=== PATIENT | female | born 1960 | race Caucasian/White ===

== ENCOUNTER 2022-06-06 08:22 | Outpatient (CLI) | payer BC, SELFPAY ==
[2022-06-06 10:29] LABS: Chloride* 99 mmol/L (96-114); Potassium* 4.5 mmol/L (3.6-5.1); Sodium* 132 mmol/L (135-149)
[2022-06-06 10:31] LABS: Bilirubin Total* 0.5 mg/dL (0.1-1.5); Creatinine* 0.4 mg/dL (0.5-1.5); Estimated Glomerular Filt Rate 111.83
[2022-06-06 10:32] LABS: Alanine Aminotransferase* 10 U/L (4-35); Alkaline Phosphatase* 85 U/L (40-150); Aspartate Amino Transferase* 25 U/L (12-35); Blood Urea Nitrogen* 7 mg/dL (7-30); Carbon Dioxide* 29 mmol/L (20-32); Glucose* 111 mg/dL (60-115); Magnesium* 1.7 mg/dL (1.5-2.6); Total Protein* 6.7 g/dL (6.0-8.3)
--- OUTSIDE RECORDS SUMMARY | 2022-07-03 11:07 | XMS_ITS | Encounter Summary ---
:1960 Author Organization [facility] Address [address] [place] [address] Care Team Providers Name Role Phone Unavailable Primary Care Provider Unavailable Encounter Details Date Type Department Care Team Description 11/21/2009 Hospital Encounter HX NO MAPPING Shannon Barrett M.D. [address] [place] [phone] (Wo rk) Social History Tobacco Use Types Packs/Day Years Used Date Smoking Tobacco: Never Assessed Sex Assigned at Date Recorded Not on file documented as of this encounter Plan of Treatment Not on filedocumented as of this encounter Visit Diagnoses Not on filedocumented in this encounter
== END 2022-06-06 08:23 | disposition home or self-care (01) ==
LOC: LAB 08:23
PROVIDERS: PCP Family Medicine; Visit Provider Family Medicine
DX: E83.42 Hypomagnesemia (principal); E83.51 Hypocalcemia; E87.1 Hypo-osmolality and hyponatremia; R56.9 Unspecified convulsions; E87.6 Hypokalemia; F10.20 Alcohol dependence, uncomplicated; I10 Essential (primary) hypertension
CPT/HCPCS: 36415; 80053; 83735

== ENCOUNTER 2022-08-29 10:27 | Outpatient (CLI) | payer BC, SELFPAY ==
--- OUTSIDE RECORDS SUMMARY | 2022-08-29 10:30 | XMS_ITS | Encounter Summary ---
:1960 Author Organization [facility] Address [address] [place] [address] Care Team Providers Name Role Phone Elsewhere, Pcp Primary Care Provider Unavailable Reason for Referral Outpatient (Routine) - Authorized Specialty Diagnoses / Procedures Referred By Contact Refer red To Contact Neurology Karin Ramachandran M.D ., M.P.H. [facility] Region [address] [place] [phone] Referral ID Status Reason Start Date Expiration Date Visits V isits Requested Authorized [id number] Authorized 07/10/2022 07/10/2023 1 1 Outpatient (Routine) - Authorized Specialty Diagnoses / Procedures Referred By Contact Refer red To Contact Diagnoses Seizure (HCC) Karin Ramachandran M.D., M.P.H. [facility] Region Procedures EEG [address] [place] [phone] Referral ID Status Reason Start Date Expiration Date Visits V isits Requested Authorized [id number] Authorized 07/10/2022 07/10/2023 1 1 Reason for Visit Reason Comments Seizures Ref. Dr. Heller Appointment Request (Routine) - Closed Specialty Diagnoses / Procedures Referred By Contact Refer red To Contact Neurology Referral ID Status Reason Start Date Expiration Date Visits Requ ested Visits Authorized [id number] Closed 06/21/2022 06/21/2023 1 Encounter Details Date Type Department Care Team Description 07/10/2022 Comprehensive Visit Department of Karin Ramachandran Seizure (HCC) (Primary Dx); Neurology in [place], Seizure Recurre nt Nonintractable (HCC); [facility]ovanny TalamantesPEvansH. Moderate Or Severe Use Disorder (Depende nce) Alcohol Remission (HCC) [place] [address] [facility], [place] [phone] Social History Tobacco Use Types Packs/Day Years Used Date Smoking Tobacco: Heavy Smoker Alcohol Use Standard Drinks/Week Comments Yes 0 (1 standard drink = 0.6 oz pure alcoho l) daily Alcohol Habits Answer Date Recorded How often do you have a drink containing alcohol? Not asked How many drinks containing alcohol do you have on a typical Not asked day when you are drinking? How often do you have six or more drinks on one occasion? No t asked Comment: daily 04/28/2021 Sex Assigned at Date Recorded Female 07/10/2022 7:32 AM CDT documented as of this encounter Last Filed Vital Signs Vital Sign Reading Time Taken Comments Blood Pressure 127/56 07/10/2022 7:37 AM CDT Pulse 74 07/10/2022 7:37 AM CDT Temperature - - Respiratory Rate - - Oxygen Saturation - - Inhaled Oxygen Concentration - - Weight 49.9 kg (110 lb 0.2 oz) 07/10/2022 7:37 AM CDT Height - - Body Mass Index 19.59 04/28/2021 12:44 PM CDT documented in this encounter Consult Notes Karin Ramachandran M.D., M.P.H. - 07/10/2022 8:00 AM CDT Images from the original note were not included. SUBJECTIVE CHIEF COMPLAINT / REASON FOR VISIT Zandra Lopez is a 61 y.o. female who presents for evaluation of Seizures (Ref. Dr. Heller). HISTORY OF PRESENT ILLNESS This 61-year-old patient has long standing history of rather heavy ethanol abuse and smoking. She has had two or perhaps three events the med called seizures in the past. 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 It does not appear that in was worried that she had an epileptic seizure and evaluation of this with an EEG did not occur. She has lived alone for many years and she comes in today with a cousin who reports that she has had two more events that might have been seizures one prompted admission to [facility] when the rescue squad was called in March of this year. She was found to have alcoholism, hyponatremia, hypocalcemia, hypokalemia, hypomagnesemia in addition to Wernicke- Korsakoff syndrome.She had an event in the hospital were cousin found her in a rather unusual posture and she was difficult to arouse. She was also found a similar stated her house but that time she was still drinking heavily when she was in the hospital in an event occurred she had not been drinking alcohol. She had been put on gabapentin, according to the cousin after the 2015 admission in [place]. She has remainedon that as far as anybody knows for her seizures. And in [facility] they draw attention to history of alcohol withdrawal seizures. She saw Dr. Rolando Tiwari and he ordered an EEG in 2019 and that is pasted below and this was normal. CT scan of the head from 04/01/[address] [facility] reveals moderate bifrontal cortical atrophy with mild chronic white matter changes. After this event in [facility] I am that the cousin describes she was placed on Keppra presently 750 mg p.o. b.i.d.. Other risk factors for seizures include multiple head injuries from falling down when she was drunk.There is no history of epilepsy in the family there is no history of UNDERGRADUATE INTERN infections nor febrile seizures. CT scan of the head reveals nonspecific but per perhaps more prominent atrophy than one would anticipate from 61-year-old. Her a record from [facility] reports an acute seizure on 05/28/2020 and that would be in line with the EEG that was ordered by Dr. Tiwari. I can not elicit a history about that event. She has not have any difficulty with the 750 mg p.o. b.i.d. of levetiracetam and she remained on that with gabapentin. She has refrain from using alcohol since the admission to [facility] in March. From Dr. Soto's note from 2016: Ms. Lopez is a 55-year-old woman with a history of alcohol dependence, nicotine dependence, hypertension, hypothyroidism, anxiety, and depression who had an unresponsive episode earlier today. Description of a daughter is highly consistent with a generalized tonic-clonic seizure. No past medical history on file. No past surgical history on file. MEDICATIONS: Current Outpatient Medications: albuterol 90 mcg/actuation inhaler, Inhale 2 puffs every 4 (four) hours as needed., Disp: , Rfl: amLODIPine (NORVASC) 5 mg tablet, daily., Disp: , Rfl: CALCIUM CARB/VIT D3/MINERALS (CALCIUM-VITAMIN D ORAL), Calcium 600+D See Instructions, 1 TABLET DAILY, Disp: , Rfl: docusate sodium (COLACE) 100 mg capsule, .Daily as needed, Disp: , Rfl: EPINEPHrine (for_EPIPEN) 0.3 mg/0.3 mL injection syringe, Inject 0.3 mg intramuscularly See Admin Instructions., Disp: , Rfl: famotidine (PEPCID) 20 mg tablet, Take 20 mg by mouth 2 (two) times a day., Disp: , Rfl: FOLIC ACID ORAL, 400 mcg., Disp: , Rfl: gabapentin (for_NEURONTIN) 300 mg capsule, Take 1 capsule (300 mg total) by mouth 3 (three) times aday., Disp: 270 capsule, Rfl: 3 levETIRAcetam (KEPPRA) 750 mg tablet, 750 mg., Disp: , Rfl: levothyroxine (SYNTHROID, LEVOTHROID) 88 mcg tablet, Take 1 tablet (88 mcg total) by mouth daily. Needs lab before further refills, Disp: 30 tablet, Rfl: 0 loratadine 10 mg capsule, 10 mg., Disp: , Rfl: MAGNESIUM OXIDE ORAL, 2 (two) times a day., Disp: , Rfl: cancmhykvigr-Oz-orxg-minerals tablet, 1 tablet., Disp: , Rfl: omeprazole (for_PriLOSEC) 20 mg capsule, Take 1 tablet by mouth daily as needed., Disp: , Rfl: omeprazole (PriLOSEC) [address] capsule, daily., Disp: , Rfl: potassium bicarbonate (K-LYTE) 25 mEq disintegrating tablet, Take 25 mEq by mouth 2 (two) times a day., Disp: , Rfl: thiamine (VITAMIN B1) 100 mg tablet, daily., Disp: , Rfl: traZODone (DESYREL) 50 mg tablet, .Bedtime, Disp: , Rfl: amLODIPine (NORVASC) 10 mg tablet, Take 1 tablet (10 mg total) by mouth once daily., Disp: 90 tablet, Rfl: 0 ALLERGY: Allergies Allergen Reactions Latex Rash LATEX - rash, hives Poison [place] Extract Edema Family History Problem Relation Age of Onset Arthritis Sister Hypertension Father Hypertension Sister Stroke Father 74 Cancer Aunt Skin cancer Father Breast cancer Aunt Social History Socioeconomic History Marital status: Spouse name: Not on file Number of children: Not on file Years of education: Not on file Highest education level: Not on file Occupational History Not on file Tobacco Use Smoking status: Heavy Smoker Smokeless tobacco: Not on file Substance and Sexual Activity Alcohol use: Yes Comment: daily Drug use: Never Sexual activity: Defer Other Topics Concern Not on file Social History Narrative Not on file Social Determinants of Health Financial Resource Strain: Not on file Food Insecurity: Not on file Transportation Needs: Not on file Physical Activity: Not on file Stress: Not on file Social Connections: Not on file Intimate Partner Violence: Not on file Housing Stability: Not on file ROSBYAGE@ OBJECTIVE Vitals: 07/10/22 0737 BP: 127/56 BP Location: Left arm Patient Position: Sitting Cuff Size: Regular Pulse: 74 Weight: 49.9 kg PHYSICAL EXAM COGNITION: Alert and cooperative. She is in good spirits CRANIAL NERVES: digitizer operator II-XII intact and symmetric. I do not find any ophthalmoplegia nor diplopia on examination. MOTOR: Full strength throughout the upper and lower extremities bilaterally both proximally and distally. Normal tone. No pronator drift. No tremor. REFLEXES: Normal and symmetric at the biceps, triceps, brachioradialis, knees, and ankles. SENSORY: normal sensation to touch CEREBELLAR: She has minus two finger to nose bilaterally and minus three tandem gait. GAIT: Normal ASSESSMENT / PLAN Impression: Encounter Diagnoses Name Primary? Seizure (HCC) Yes Seizure Recurrent Nonintractable (HCC) Moderate Or Severe Use Disorder (Dependence) Alcohol Remission (HCC) She has had at least three and perhaps for seizures as it appears there is a seizure in May of 2020at was on accounted for by either the patient or her cousin. It is certainly possible that some orall of these for ethanol related. The one EEG that I am aware of was normal. The question then remains whether she needs to be on two antiseizure medicines. I think I will see her back in about three months but before that time I will get another EEG. If she really is on gabapentin for seizures it is likely that we could discontinue that and consider Keppra if she really does need to be on seizure medicines. But at the present time I am unable to answer the question about whether she needs to be on seizure medicines or not. Since it is not bothering her I think it is prudent to continue. I personally spent 60 minutes in care of the patient today. Time includes both non face to face and face to face patient care. Karin Ramachandran M.D., M.P.H. Answers submitted by the patient for this visit: General Review of Symptoms (Submitted on 07/10/2022) No general issues: Yes Visual problems: Yes Persistent hoarse voice: Yes Sinus congestion: Yes No heart issues: Yes Shortness of breath: Yes Dry cough: Yes Constipation: Yes Muscle pain/stiffness: Yes Pain or stiffness in the joints: Yes Back pain/stiffness: Yes No skin issues: Yes Seizures: Yes Light-headedness: Yes Numbness or shooting pain in hands, arms, legs or feet: Yes No mental health issues: Yes Bruises/bleeds easily: Yes No blood/lymph issues: Yes No urinary/reproductive issues: Yes documented in this encounter Plan of Treatment Upcoming Encounters Date Type Specialty Care Team Description 08/30/2022 Diagnostic Neurology Karin Ramachandran M.D., M.P.H. [address], [place] [phone] (Howie dean) 10/10/2022 Office Visit Neurology Karin Ramachandran M.D., M.P.H. [address], [place] [phone] (Howie dean) Scheduled Orders Name Type Priority Associated Diagnoses Order S chedule EEG Neurology Routine Seizure (HCC) Expected: 06/25 (Approximate), Expires: 2022 Scheduled Referrals Name Type Priority Associated Diagnoses Order S chedule Neurology office Outpatient Referral Routine Expe cted: visit (clinic) 10/10/2022 (Approximate), Expires: 10/10/2023 documented as of this encounter Visit Diagnoses Diagnosis Seizure (HCC) - Primary Seizure Recurrent Nonintractable (HCC) Moderate Or Severe Use Disorder (Depende nce) Alcohol Remission (HCC) documented in this encounter Additional Health Concerns Assessment Noted Time PHQ-9 Depression Total Score: 6 03/20/2017 1:11 PM CDT documented as of this encounter Care Teams Dry House Worker Relationship 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
--- OUTSIDE RECORDS SUMMARY | 2022-08-29 10:30 | XMS_ITS | Clinical Summary ---
:1960 Author Organization [email or web address] [place] [address] Care Team Providers Name Role Phone Luann Juarez Primary Care Provider [phone] Allergies Active Allergy Reactions Severity Noted Date Comments Latex 04/22/2009 Poison [place] Extract Edema 04/20/2014 Medications Medication Sig Dispensed Refills Start Date End Date Status albuterol HFA Inhale 2 Puffs by 0 04/20/2014 Active (PROAIR HFA) 90 mouth 4 times daily mcg/actuation if needed. inhaler multivitamin (MVI) Take 1 tablet by 0 04/20/2014 Active tablet mouth once daily. calcium Take 1 tablet by 0 04/20/2014 Ac tive carbonate-vitamin mouth 2 times daily D3, 500 mg-400 with meals. units, (CALCIUM 500 + D) tablet aspirin chewable Take 1 tablet by 0 04/20/2014 Active (BABY ASPIRIN) 81 mg mouth once daily chewable tablet with a meal. loratadine Take 1 tablet by 0 07/18/2016 A ctive (CLARITIN) 10 mg mouth once daily. tablet thiamine (VITAMIN Take 1 tablet by 90 tablet 1 02/24/2019 Active B1) 100 mg mouth once daily. tabletIndications: Vitamin B1 deficiency omeprazole TAKE 1 CAPSULE BY 90 capsule 2 01/12/2020 Active (PRILOSEC) 20 mg MOUTH ONCE DAILY IF Delayed-Release NEEDED FOR STOMACH capsuleIndications: (GI) UPSET. Chronic GERD folic acid 400 mcg TAKE ONE TABLET BY 90 tablet 1 03/10/2020 Active tabletIndications: MOUTH ONE TIME DAILY Vitamin B1 deficiency levothyroxine TAKE ONE TABLET BY 90 tablet 1 04/19/2020 Active (SYNTHROID) 88 mcg MOUTH ONE TIME DAILY tabletIndications: Hypothyroidism (acquired) amLODIPine (NORVASC) TAKE ONE TABLET BY 90 tablet 1 04/19/2020 Active 10 mg MOUTH ONE TIME DAILY tabletIndications: Essential hypertension EPINEPHrine (EPIPEN) Inject 0.3mg 2 Each 0 06/03/2020 Active 0.3 mg/0.3 mL (contents of 1 pen) injectionIndications intramuscularly one : Poison oak, time if needed for Difficulty breathing allergic reaction. gabapentin TAKE ONE CAPSULE BY 90 Capsule 0 05/31/2021 Active (NEURONTIN) 300 mg MOUTH THREE TIMES capsuleIndications: DAILY Seizure (HC) Active Problems Problem Noted Date Vitamin B1 deficiency 02/24/2019 Chronic GERD 02/24/2019 Hypothyroidism (acquired) 02/24/2019 Seizure 02/24/2019 Reflux 04/20/2014 HTN (hypertension) 04/20/2014 Hypothyroidism 04/20/2014 Immunizations Name Administration Dates Next Due AMB Influenza, IIV4 PF (=>6 mos 10/17/2016 Flulaval,Fluzone Fluarix)(Flu Clinic Only) Influenza Virus, Unspecified 10/03/2015, 09/03/2014, 013 Influenza, IIV4 08/29/2017, 10/17/2016 Influenza, IIV4 (=>6mos) MDV 09/15/2016 Td (Age >=7 Years) 09/19/2007, 11/25/1995 Td, Preservative Free (age >= 7 Years) 09/19/2007 Tdap 01/07/2013 Family History Medical History Relation Name Comments Cancer-breast Sister Relation Name Status Comments Sister Social History Tobacco Use Types Packs/Day Years Used Date Heavy Tobacco Smoker Cigarettes 0 20 Quit: 0 04/11/2016 Smokeless Tobacco: Never Used Tobacco Cessation: Ready to Quit: No; Co unseling Given: Yes Comments: 1.5 packs per day Alcohol Use Standard Drinks/Week Comments Yes 0 (1 standard drink = 0.6 oz pure alcoho l) Alcohol Habits Answer Date Recorded How often do you have a drink containing 4 or more times a w [place] 10/20/2019 alcohol? How many drinks containing alcohol do you have 10 or more 10/20/2019 on a typical day when you are drinking? How often do you have six or more drinks on one Daily or mike ost daily 10/20/2019 occasion? Comment: Not asked Sex Assigned at Date Recorded Not on file Obstetrics History Last Filed Vital Signs Vital Sign Reading Time Taken Comments Blood Pressure 139/82 10/20/2019 7:49 AM EXCELLENCE CONSULTANT Pulse 107 10/20/2019 7:49 AM EXCELLENCE CONSULTANT Temperature 36.7 ??C (98.1 ??F) 10/20/2019 7:49 AM EXCELLENCE CONSULTANT Respiratory Rate - - Oxygen Saturation 100% 10/20/2019 7:49 AM EXCELLENCE CONSULTANT Inhaled Oxygen Concentration - - Weight 54.4 kg (120 lb) 10/20/2019 7:49 AM EXCELLENCE CONSULTANT Height 160 cm (5' 3) 10/20/2019 7:49 AM EXCELLENCE CONSULTANT Body Mass Index 21.26 10/20/2019 7:49 AM EXCELLENCE CONSULTANT Plan of Treatment Health Maintenance Due Date Last Done Comments Pap test for age 21-65 1980 Colonoscopy through age 75 2004 Zoster (shingles) series for age 1009/05/2009 50+ (1 of 2) Depression screening for age 12+ 02/25/2020 02/24/2019, , 08/14/2016 Mammogram for age 45-75 02/25/2020 02/24/2019 BMI (ht and wt on same day) for 10/20/2020 10/20/2019, 12/2018, age 18+ 08/17/2016, Additional history exists COVID-19 vaccine series (4 - 03/22/2022 11/21/2021, 021, Booster for Moderna series) 02/10/2021 Influenza for age 50-64 07/26/2022 08/29/2017, 10/17/2016, 10/17/2016, Additional history exists Tetanus booster 01/07/2023 01/07/2013, 09/19/2007, 09/19/2007, Additional history exists Lipids for age 45-75 02/25/2024 02/24/2019 Tdap Completed 01/07/2013 Hepatitis C screening for age Completed 02/24/2019 18-79 Results Not on filefrom Last 3 Months Insurance Payer Benefit Plan / Subscriber ID Effective Dates Phone Addre ss Type Group BLUE CROSS BLUE CROSS OF [id number] 2020-Liat [address] [place] [address] Advance Directives Documents on File Type Date Recorded Patient Intake Coordinator Explanati on Healthcare Directive 12/30/2019 12/30/2019 Care Teams Engineering Associate Relationship Specialty Start Date End Date Luann Juarez PA PCP - General Physician Records Technician 02/23/19 [facility] [id number]
--- OUTSIDE RECORDS SUMMARY | 2022-08-29 10:30 | XMS_ITS | Encounter Summary ---
:1960 Author Organization [facility] Address [address] [place] [address] Care Team Providers Name Role Phone Elsewhere, Pcp Primary Care Provider Unavailable Encounter Details Date Type Department Care Team Description 05/01/2021 Orders Only Division of Trauma Carito Nicholas Fractu re Rib Multiple Critical Care and M.D. Subsequent With Routine General Surgery in [address] [facility] Right (Primary [place], [place] Dx) [address] [facility] [address] [place], [place] [phone] (Work) [phone] Social History Tobacco Use Types Packs/Day Years [...] AM CDT documented as of this encounter Plan of Treatment Upcoming Encounters Date Type Specialty Care Team Description 08/30/2022 Diagnostic Neurology Karin Ramachandran M.D., M.P.H. [address] [place], [place] [phone] (Howie dean) 10/10/2022 Office Visit Neurology Karin Ramachandran M.D., M.P.H. [address], [place] [phone] (Wo rk) documented as of this encounter Visit Diagnoses Diagnosis Fracture Rib Multiple Subsequent With Ro utine Healing Right - Primary documented in this encounter Additional Health Concerns Assessment Noted Time PHQ-9 Depression Total Score: 6 03/20/2017 1:11 PM CDT documented as of this encounter Care Teams Production Planning Manager Relationship 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
--- OUTSIDE RECORDS SUMMARY | 2022-08-29 10:30 | XMS_ITS | Clinical Summary ---
:1960 Author Organization [facility] Address [address] [place] [address] Care Team Providers Name Role Phone Elsewhere, Pcp Primary Care Provider Unavailable Source Comments Patient records contain information from all sites at [facility]. For routine questions regarding patient records, call [phone] during business hours, M-F 8:00 AM - 5:00 PM Central Time. Record requests for emergency care only can be directed to [phone] at any time.[facility] Allergies Active Allergy Reactions Severity Noted Date Comments Latex Rash 04/22/2009 LATEX - rash, h mirta Poison [place] Extract Edema 04/20/2014 Medications Medication Sig Dispensed Refills Start Date End Date Status omeprazole Take 1 tablet by 0 03/20/2017 A ctive (for_PriLOSEC) 20 mouth daily as mg capsule needed. CALCIUM CARB/VIT Calcium 600+D See 0 02/20/2014 Active D3/MINERALS Instructions, 1 (CALCIUM-VITAMIN D TABLET DAILY ORAL) EPINEPHrine Inject 0.3 mg 0 03/20/2017 Act lyly (for_EPIPEN) 0.3 intramuscularly See mg/0.3 mL injection Admin Instructions. syringe gabapentin Take 1 capsule (300 270 capsule 3 12/03/2017 Active (for_NEURONTIN) 300 mg total) by mouth 3 mg capsule (three) times a day. amLODIPine Take 1 tablet (10 mg 90 tablet 0 05/30/2018 Active (NORVASC) 10 mg total) by mouth once tablet daily. levothyroxine Take 1 tablet (88 30 tablet 0 06/02/2018 Active (SYNTHROID, mcg total) by mouth LEVOTHROID) 88 mcg daily. Needs lab tablet before further refills albuterol 90 Inhale 2 puffs every 0 03/11/2016 Active mcg/actuation 4 (four) hours as inhaler needed. docusate sodium .Daily as needed 0 05/22/2022 Active (COLACE) 100 mg capsule FOLIC ACID ORAL 400 mcg. 0 05/22/2022 Act lyly levETIRAcetam 750 mg. 0 06/06/2022 Activ e (KEPPRA) 750 mg tablet loratadine 10 mg 10 mg. 0 05/22/2022 Ac tive capsule MAGNESIUM OXIDE 2 (two) times a day. 0 05/22/2022 Active ORAL ggvaugmpwqik-Qj-trj 1 tablet. 0 05/22/2022 Active n-minerals tablet omeprazole daily. 0 05/22/2022 Active (PriLOSEC) [address] capsule thiamine (VITAMIN daily. 0 05/22/2022 A ctive B1) 100 mg tablet traZODone (DESYREL) .Bedtime 0 05/22/2022 Active 50 mg tablet amLODIPine daily. 0 05/22/2022 Active (NORVASC) 5 mg tablet famotidine (PEPCID) Take 20 mg by mouth 0 Active 20 mg tablet 2 (two) times a day. potassium Take 25 mEq by mouth 0 Active bicarbonate 2 (two) times a day. (K-LYTE) 25 mEq disintegrating tablet Active Problems Problem Noted Date Seizure Recurrent Nonintractable 07/10/2022 Moderate Or Severe Use Disorder (Dependence) Alcohol R emission 07/10/2022 Depressive Disorder 01/18/2015 Overview: Depressive Disorder, Not Elsewhere Class ified Depressive disorder, not elsewhere class ified Hypertension Essential Benign 01/18/2015 Overview: Benign Essential Hypertension Essential hypertension, benign Encounters Date Type Specialty Care Team Description 07/10/2022 Comprehensive Visit Neurology Karin Ramachandran, Seiz tanner (HCC) (Primary Dx); MDonna., M.P.H. Seizure Recurre nt Nonintractable (HCC); Moderate Or Sev ere Use Disorder (Dependence) Alcohol Remission (HCC) from Last 3 Months Immunizations Name Administration Dates Next Due Influenza, Unspecified 10/03/2015, 09/03/2014, 10/09/2013 PPSV23 05/01/2016 Td (Adult), adsorbed 09/19/2007, 11/25/1995 Tdap 01/07/2013 Family History Medical History Relation Name Comments Breast cancer Aunt paternal Cancer Aunt paternal Hypertension Father Skin cancer Father Stroke Father Arthritis Sister Hypertension Sister Relation Name Status Comments Aunt paternal Father Sister Social History Tobacco Use Types Packs/Day [...] Date Recorded Female 07/10/2022 7:32 AM CDT Last Filed Vital Signs Vital Sign Reading Time Taken Comments Blood Pressure 127/56 07/10/2022 7:37 AM CDT Pulse 74 07/10/2022 7:37 AM CDT Temperature 37.2 ??C (99 ??F) 04/28/2021 12:50 PM CDT Respiratory Rate 20 04/28/2021 12:49 PM CDT Oxygen Saturation 93% 04/28/2021 3:15 PM CDT Inhaled Oxygen Concentration - - Weight 49.9 kg (110 lb 0.2 oz) 07/10/2022 7:37 AM CDT Height 159.6 cm (5' 2.84) 04/28/2021 12:44 PM CDT Body Mass Index 19.59 04/28/2021 12:44 PM CDT Plan of Treatment Upcoming Encounters Date Type Specialty Care Team Description 08/30/2022 Diagnostic Neurology Karin Ramachandran M.D., M.P.H. [address] [phone] (Howie dean) 10/10/2022 Office Visit Neurology Karin Ramachandran M.D., M.P.H. [address] [phone] (Howie dean) Health Maintenance Due Date Last Done Comments CT Colonography 1960 Cologuard 1960 Colonoscopy 1960 Colorectal Cancer Screening 1960 Depression Monitoring (PHQ-9) 1960 FIT 1960 HIV Screening 1960 Tobacco Cessation counseling 1960 Pneumococcal vaccine (0-64 years) 05/01/2017 05/01/2016 (2 - PCV) Mammogram 03/20/2018 03/20/2017, 02/15/2016, 03/17/2014, Additional history exists Cervical Cancer Screening 10/17/2020 10/17/2015 Thyroid Stimulating Hormone (TSH) 10/20/2020 10/20/2019, , test for thyroid function 03/26/2017, Additional history exists COVID-19 Vaccine (4 - Booster for 01/16/2022 11/21/2021, , Moderna series) 02/10/2021 Influenza Vaccine (#1) 2022 08/24/2021, 08/08/2020, 08/11/2019, Additional history exists DTaP,Tdap,and Td Vaccines (2 - Td 01/07/2023 01/07/2013, , or Tdap) 09/19/2007, Additional history exists Office Visit for Blood Pressure 07/10/2023 07/10/2022 Check / Re-check Lipid (Cholesterol) Screening 02/25/2024 02/24/2019, 2014, 03/17/2014, Additional history exists Fasting Glucose for Diabetes 04/28/2024 04/28/2021, 019, Screening 02/24/2019, Additional history exists Hepatitis C Screening Completed 03/26/2017 Zoster Vaccines Completed 10/10/2020, 07/26/2020 Insurance Payer Benefit Plan Subscriber ID Effective Phone Address Typ e / Group Dates GERONIMO MELTON [id number] 2018-Pres [phone] [place] [place] [phone] Care Teams Line Up Machine Operator Relationship Specialty Start Date End Date Elsewhere, Pcp PCP - General Internal Medicine 01/15/20
--- OUTSIDE RECORDS SUMMARY | 2022-08-29 10:31 | XMS_ITS | Encounter Summary ---
:1960 Author Organization [facility] Address [address] [place] [address] Care Team Providers Name Role Phone Faye Liao M.D. Primary Care Provider Reason for Visit Reason Comments Med Refill Encounter Details Date Type Department Care Team Description 12/03/2017 Refill Department of [facility] Faye Liao M.D. Med Refill Internal Medicine in [place], [address] [place] [address] [facility] [place] [address] [phone] Social History Tobacco Use Types Packs/Day Years Used Date Smoking Tobacco: Every Day Sex Assigned at Date Recorded Female 07/10/2022 7:32 AM CDT documented as of this encounter Plan of Treatment Upcoming Encounters Date Type Specialty Care Team Description 08/30/2022 Diagnostic Neurology Karin Ramachandran M.D., M.P.H. [address] [place] [phone] (Howie rk) 10/10/2022 Office Visit Neurology Karin Ramachandran M.D., M.P.H. [address] [place] [phone] (Howie rk) documented as of this encounter Visit Diagnoses Not on filedocumented in this encounter Additional Health Concerns Assessment Noted Time PHQ-9 Depression Total Score: 6 03/20/2017 1:11 PM CDT documented as of this encounter Care Teams Automation Test Developer Relationship Specialty Start Date End Date Faye Liao M.D. PCP - General 05/09/17 01/14/20 [address] [place] [phone] documented as of this encounter
--- OUTSIDE RECORDS SUMMARY | 2022-08-29 10:31 | XMS_ITS | Encounter Summary ---
:1960 Author Organization [facility] Address [address] [place] [address] Care Team Providers Name Role Phone Unavailable Primary Care Provider Unavailable Encounter Details Date Type Department Care Team Description 03/27/2016 Hospital Encounter HX [facility] Abelardo Herzog M.D. [address] [place], [place] [phone] (Wo rk) Social History Tobacco Use Types Packs/Day Years Used Date Smoking Tobacco: Never Assessed Sex Assigned at Date Recorded Female 07/10/2022 7:32 AM CDT documented as of this encounter Last Filed Vital Signs Vital Sign Reading Time Taken Comments Blood Pressure - - Pulse - - Temperature - - Respiratory Rate - - Oxygen Saturation - - Inhaled Oxygen Concentration - - Weight - - Height 160 cm (5' 2.99) 03/27/2016 7:29 AM CDT Body Mass Index - - documented in this encounter Medications at Time of Discharge Medication Sig Dispensed Refills Start Date End Date albuterol 90 Inhale 2 puffs every 4 0 03/11/2016 mcg/actuation inhaler (four) hours as needed. CALCIUM CARB/VIT Calcium 600+D See 0 02/20/2014 D3/MINERALS Instructions, 1 TABLET (CALCIUM-VITAMIN D ORAL) DAILY documented as of this encounter Procedure Notes Naveen Valencia R.T.(Ramez)(CT), RKandy(R) - 03/27/2016 7:42 AM CDT Peripheral IV Peripheral IV Entered On: 03/27/2016 7:48 CDT Performed On: 03/27/2016 7:42 CDT by NAVEEN VALENCIA(R)(CT), R.T.(R) Peripheral IV Peripheral IV Assess/Intervention Grid Peripheral IV #1 IV Activity : Start, Discontinue Removal : Catheter intact, Hemostasis within expected timeframe Number of Attempts : 1 Date of Insertion : 03/27/2016 CDT Discontinued Date : 03/27/2016 CDT IV Site : Antecubital Laterality : Left Catheter Size : 20 Site Condition : No complications Flow/ Patency : No complications Comments (Comment: LS [NAVEEN VALENCIA(R)(CT), R.TEvans(R) - 03/27/2016 7:42 CDT] ) NAVEEN VALENCIA(R)(CT), R.TEvans(R) - 03/27/2016 7:42 CDT Source: [employer] Document Id: [id number]!14 documented in this encounter Miscellaneous Notes Miscellaneous - Faye Yadav M.D. - 04/02/2016 6:00 PM CDT Results Notification Document Contains Addenda Addendum by FAYE YADAV MD on April 03, 2016 17:38:57 CDT Thanks! Addendum by SHENG WHYTE on April 03, 2016 12:05:28 CDT APPT RESCHEDULED FOR 05/01/16. Addendum by JESENIA SARAH CMA on April 03, 2016 12:04:30 CDT Spoke with patient and informed her of message below. She will reschedule 04/10 appt to go [facility] CXR.Transferred to scheduling. Addendum by FAYE YADAV MD on April 03, 2016 11:08:23 CDT From: FAYE YADAV MD To: [facility] Nurse (TABITHA/MEÑO); [facility] [employer]; Sent: 04/03/2016 11:08:23 CDT Show up: 04/03/2016 11:08:00 CDT Subject: RE: Results Notification Addendum by FAYE YADAV MD on April 03, 2016 11:08:06 CDT We could see her 04/10 and do the CXR without an OV, OR she could reschedule her OV for after the CXR in April. Whichever works best for her in terms of follow up for smoking cessation is fine with me. Please let me know what she prefers Addendum by JESENIA SARAH CMA on April 03, 2016 08:50:26 CDT Notified patient of message results below. She is wondering if she needs to be seen after the CXR in 1 month? She has a f/u appt with you on 04/10. Wondering if she should keep it or reschedule for 1 month? From: FAYE YADAV MD To: [facility] (TABITHA/MEÑO); Sent: 04/02/2016 18:00:55 CDT Show up: 04/02/2016 17:59:00 CDT Subject: Results Notification please tell patient there was good news: no sign of lung cancer on her chest CT. There were small areas of solid or fluid where there should beair, which may explain the cough, but they should resolve,so we recommend repeating a CXR (we can do in clinic) in 1 month. Thanks. 27-Mar-2016 07:52:00 Exam: CT CHEST w Indications: 6+ months cough, 40 pack years, hyponatremia 27-Mar-2016 09:33 [facility] EXAM: CT scan of the Chest with IV contrast COMPARISON: Chest x-ray 03/11/2016 IMPRESSION: Small nonspecific lower lobe opacifications. A follow-up chest x-ray in a month is suggested. FINDINGS: Normal size of the heart and thoracic aorta. No pericardial or pleural fluid. Patent airway. No axillary or mediastinal adenopathy. Pulmonary embolism not seen. Small bilateral patchy opacifications in the lower lobes are nonspecific and in part could be atelectasis. An inflammatory process cannot be excluded. Otherwise clear lungs. Emphysema not identified. Negative spine. No hiatal hernia. Slight calcification at the origin of the superior mesenteric artery. Bennett Galdamez MD 27-Mar-2016 09:33 Results: Date Result Type Result Name 03/27/2016 9:[address] Chest w/ contrast Source: [employer] Document Id: [id number] Electronically signed by Conversion, [facility] Jewelry Sales Coordinator [id number] at 04/20/2017 1:35 PM CDT Miscellaneous - Conversion, Historical Provider Ser - 03/27/2016 11:59 PM CDT Coding Summary-Paper Based CODING DATE: 04/06/2016 FINAL [facility] STATUS: * Discharged to Home or Self Care PAYOR: [employer] ADMIT DX: REASON FOR VISIT DX: FINAL DX: PRINCIPAL: R05 Cough SECONDARY: E87.1 Hypo-osmolality and hyponatremia R91.8 Other nonspecific abnormal finding of lung field Z87.891 Personal history of nicotine dependence PROCEDURES DOCTOR NAME DATE NOTE: The code number assigned matches the documented diagnosis and / or procedure in the patient's chart. However, the narrative phrase printed from the coding software may appear abbreviated, or result in slightly different terminology. Coded By: MONICA ROSARIO Date Saved: 04/06/2016 09:41 am Source: [employer] Document Id: [id number] documented in this encounter Plan of Treatment Upcoming Encounters Date Type Specialty Care Team Description 08/30/2022 Diagnostic Neurology Karin Ramachandran M.D., M.P.H. [address] [phone] (Howie dean) 10/10/2022 Office Visit Neurology Karin Ramachandran M.D., M.P.H. [address] [place] [phone] (Howie dean) documented as of this encounter Visit Diagnoses Not on filedocumented in this encounter Additional Health Concerns Assessment Noted Time PHQ-9 Depression Total Score: 10 10/17/2015 9:46 AM CS T documented as of this encounter
--- OUTSIDE RECORDS SUMMARY | 2022-08-29 10:31 | XMS_ITS | Encounter Summary ---
:1960 Author Organization [facility] Address [address] [place] [address] Care Team Providers Name Role Phone Unavailable Primary Care Provider Unavailable Encounter Details Date Type Department Care Team Description 03/11/2016 Hospital Encounter HX RST EMERGENCY Provider, Historic al TRAUMA UNI Social History Tobacco Use Types Packs/Day Years Used Date Smoking Tobacco: Never Assessed Sex Assigned at Date Recorded Female 07/10/2022 7:32 AM CDT documented as of this encounter Medications at Time of Discharge Medication Sig Dispensed Refills Start Date End Date albuterol 90 Inhale 2 puffs every 4 0 03/11/2016 mcg/actuation inhaler (four) hours as needed. CALCIUM CARB/VIT Calcium 600+D See 0 02/20/2014 D3/MINERALS Instructions, 1 TABLET (CALCIUM-VITAMIN D ORAL) DAILY documented as of this encounter Plan of Treatment Upcoming Encounters Date Type Specialty Care Team Description 08/30/2022 Diagnostic Neurology Karin Ramachandran M.D., M.P.H. [address] [place] [address] [phone] (Howie dean) 10/10/2022 Office Visit Neurology Karin Ramachandran M.D., M.P.H[facility] [address] [place] [address] [phone] (Howie dean) documented as of this encounter Procedures Procedure Name Priority Date/Time Associated Diagnosis Comme nts DIPSTICK, POCT, U Routine 03/11/2016 8:52 AM Resu lts for this (DIPC1) CDT procedure are i n the results section. CBC WITH Routine 03/11/2016 8:51 AM Results f or this DIFFERENTIAL, B CDT procedure ar e in the results section. BASIC METABOLIC Routine 03/11/2016 8:51 AM Result s for this PANEL, S/P CDT procedure are i n the results section. THIAMIN (VITAMIN Routine 03/11/2016 8:50 AM Resul ts for this B1), B CDT procedure are i n the results section. LACTATE, B/P Routine 03/11/2016 8:50 AM Results f or this CDT procedure are i n the results section. ETHANOL, S Routine 03/11/2016 5:55 AM Results f or this CDT procedure are i n the results section. CBC WITH Routine 03/11/2016 5:55 AM Results f or this DIFFERENTIAL, B CDT procedure ar e in the results section. MAGNESIUM, S Routine 03/11/2016 5:55 AM Results f or this CDT procedure are i n the results section. LACTATE, B/P Routine 03/11/2016 5:55 AM Results f or this CDT procedure are i n the results section. CREATINE KINASE Routine 03/11/2016 5:55 AM Result s for this (CK), S CDT procedure are i n the results section. CALCIUM, TOT, S/P Routine 03/11/2016 5:55 AM Resu lts for this CDT procedure are i n the results section. BASIC METABOLIC Routine 03/11/2016 5:55 AM Result s for this PANEL, S/P CDT procedure are i n the results section. documented in this encounter Results (ABNORMAL) Dipstick, POCT, Urine (lab) (03/11/2016 8:52 AM CDT) [facility] Method Time Signature Ketone, POCT, 1+ (A) Negative [facility] U [facility] Specific 1.020 1.001 - [facility] [place], 1.035 LABORATORIES - POCT, U [facility] Blood, POCT, Negative Negative [facility] pH, POCT, 6.0 5.0 - 8.0 [facility] Urine [facility] Nitrites, Negative Negative [facility] POCT, [facility] Leukocytes, Negative Negative [facility] POCT, [facility] Glucose, Negative Negative [facility] POCT, [facility] Bilirubin, Negative Negative [facility] POCT, [facility] Protein, Trace (A) Negative [facility] POCT, U LABORATORIES - [facility] Urobilinogen, 0.2 0.2 - 1.0 [facility] POCT, Urine LABORATORIES - [facility] Specimen Anatomical Collection Method Collection Time Receive d Time (Source) Location / / Volume Laterality 03/11/2016 8:52 AM 6 8:52 CDT AM CDT Historical Provider LAB POCT ORDERABLES - DEVICE Performing Organization Address City/State/ZIP Code Phon e Number [facility] LABORATORIES - [address] [place], [place] [address] [facility] (ABNORMAL) CBC with Differential (03/11/2016 8:51 AM CDT) [facility] gist Method Time Signature Hemoglobin 12.6 12.0 - [facility] 15.5 G/DL LABORATORIES - [facility] Hematocrit 36.9 34.9 - [facility] 44.5 % LABORATORIES - [facility] Leukocytes 13.1 (H) 3.5 - [facility] 10.5 LABORATORIES - X10(9)/L [facility] Neutrophils 11.25 (H) 1.70 - [facility] 7.00 LABORATORIES - X10(9)/L [facility] Erythrocytes 3.56 (L) 3.90 - [facility] 5.03 LABORATORIES - X10(12)/L [facility] MCV 103.7 (H) 81.6 - [facility] 98.3 [place] LABORATORIES - [facility] RBC Distrib 13.4 11.9 - [facility] Width 15.5 % LABORATORIES - [facility] Platelet Count 257 150 - 450 [facility] X10(9)/L LABORATORIES - [facility] Lymphocytes 0.49 (L) 0.90 - [facility] 2.90 LABORATORIES - X10(9)/L [facility] Monocytes 1.28 (H) 0.30 - [facility] 0.90 LABORATORIES - X10(9)/L [facility] Eosinophils 0.03 (L) 0.05 - [facility] 0.50 LABORATORIES - X10(9)/L [facility] Basophils 0.03 0.00 - [facility] 0.30 LABORATORIES - X10(9)/L [facility] Specimen Anatomical Collection Method Collection Time Receive d Time (Source) Location / / Volume Laterality 03/11/2016 8:51 AM 6 8:51 CDT AM CDT Joshua Shine M.D. LAB BLOOD ADD-ON Performing Organization Address City/[facility]/ZIP Code Phon e Number [facility] LABORATORIES - [address] [place] [phone] [facility] (ABNORMAL) BMP (Basic Metabolic Panel) (03/11/2016 8:51 AM CDT) Patholo gist Method Time Signature Sodium, P 134 (L) 135 - 145 [facility] MMOL/L LABORATORIES - [facility] Potassium, P 3.7 3.6 - 5.2 [facility] MMOL/L LABORATORIES - [facility] eGFR >60 >60 [facility] Non-Black/Afric ML/MIN/BS LABORATORIES - [place] [facility] eGFR-Black/Afri >60 >60 [facility] can [place] ML/MIN/BS LABORATORIES - [facility] Chloride, S 94 (L) 98 - 107 [facility] MMOL/L LABORATORIES - [facility] Creatinine 0.5 (L) 0.6 - 1.1 [facility] MG/DL LABORATORIES - [facility] BUN (Blood Urea 7 6 - 21 [facility] Nitrogen), S MG/DL LABORATORIES - [facility] HX Bicarbonate, 21 (L) 22 - 29 [facility] P/S MMOL/L LABORATORIES - [facility] Glucose, S 105 70 - 140 [facility] MG/DL LABORATORIES - [facility] Anion Gap 19 (H) 7 - 15 [facility] LABORATORIES - [facility] Specimen Anatomical Collection Method Collection Time Receive d Time (Source) Location / / Volume Laterality 03/11/2016 8:51 AM 6 8:51 CDT AM CDT Joshua Shine M.D. LAB BLOOD ADD-ON Performing Organization Address City/[facility]/ZIP Code Phon e Number [facility] LABORATORIES - [address] [phone] [facility] Thiamine (Vitamin B1), Whole Blood (03/11/2016 8:50 AM CDT) P athologist Signature Thiamine 125 70 - 180 [facility] (Vitamin B1), NMOL/L LABORATORIES - [facility] Specimen Anatomical Collection Method Collection Time Receive d Time (Source) Location / / Volume Laterality 03/11/2016 8:50 AM 6 8:50 CDT AM CDT Joshua Shine M.D. LAB BLOOD NON ADD-ON Performing Organization Address City/[facility]/ZIP Code Phon e Number [facility] LABORATORIES - [address] [place], [place] [address] [facility] Lactate (03/11/2016 8:50 AM CDT) P athologist Signature Lactate, P 0.8 0.6 - 2.3 [facility] MMOL/L LABORATORIES [facility] Specimen Anatomical Collection Method Collection Time Receive d Time (Source) Location / / Volume Laterality 03/11/2016 8:50 AM 6 8:50 CDT AM CDT Joshua Shine M.D. LAB BLOOD NON ADD-ON Performing Organization Address City/State/ZIP Code Phon e Number [facility] LABORATORIES - [address] [place], [place] [address] [facility] (ABNORMAL) Magnesium (03/11/2016 5:55 AM CDT) Analysis Performed At Patho logist Time Signature Magnesium, S 1.5 (L) 1.7 - 2.3 [facility] MG/DL LABORATORIES - [facility] Specimen Anatomical Collection Method Collection Time Receive d Time (Source) Location / / Volume Laterality 03/11/2016 5:55 AM 6 5:55 CDT AM CDT Jennifer Almanzar M.D. LAB BLOOD ADD-ON Performing Organization Address City/[facility]/ZIP Code Phon e Number [facility] LABORATORIES - [address] [place], [place] [address] [facility] (ABNORMAL) Calcium, Total (03/11/2016 5:55 AM CDT) [facility] gist Method Time Signature Calcium, 10.5 (H) 8.9 - [facility] Total, S 10.1 LABORATORIES - MG/DL [facility] Specimen Anatomical Collection Method Collection Time Receive d Time (Source) Location / / Volume Laterality 03/11/2016 5:55 AM 6 5:55 CDT AM CDT Jennifer Almanzar M.D. LAB BLOOD ADD-ON Performing Organization Address City/[facility]/ZIP Code Phon e Number [facility] LABORATORIES - [address] [place], [place] [address] [facility] (ABNORMAL) CBC with Differential (03/11/2016 5:55 AM CDT) [facility] gist Method Time Signature Hemoglobin 13.2 12.0 - [facility] 15.5 G/DL LABORATORIES - [facility] Hematocrit 37.2 34.9 - [facility] 44.5 % LABORATORIES - [facility] RBC Distrib 12.9 11.9 - [facility] Width 15.5 % LABORATORIES - [facility] Platelet Count 264 150 - 450 [facility] X10(9)/L LABORATORIES - [facility] Leukocytes 12.9 (H) 3.5 - [facility] 10.5 LABORATORIES - X10(9)/L [facility] Neutrophils 11.06 (H) 1.70 - [facility] 7.00 LABORATORIES - X10(9)/L [facility] Lymphocytes 0.52 (L) 0.90 - [facility] 2.90 LABORATORIES - X10(9)/L [facility] Monocytes 1.21 (H) 0.30 - [facility] 0.90 LABORATORIES - X10(9)/L [facility] Eosinophils 0.09 0.05 - [facility] 0.50 LABORATORIES - X10(9)/L [facility] Basophils 0.02 0.00 - [facility] 0.30 LABORATORIES - X10(9)/L [facility] Erythrocytes 3.65 (L) 3.90 - [facility] 5.03 LABORATORIES - X10(12)/L [facility] MCV 101.9 (H) 81.6 - [facility] 98.3 [place] LABORATORIES - [facility] Specimen Anatomical Collection Method Collection Time Receive d Time (Source) Location / / Volume Laterality 03/11/2016 5:55 AM 6 5:55 CDT AM CDT Isreal Vaca M.D. LAB BLOOD ADD-ON Performing Organization Address City/[facility] Code Phon e Number [facility] LABORATORIES - [address] [phone] [facility] Ethanol Level, Serum (03/11/2016 5:55 AM CDT) P athologist Signature Ethanol, S <10 <10 MG/DL [facility] Specimen Anatomical Collection Method Collection Time Receive d Time (Source) Location / / Volume Laterality 03/11/2016 5:55 AM 6 5:55 CDT AM CDT Isreal Vaca M.D. LAB BLOOD NON ADD-ON Performing Organization Address City/[facility] Code Phon e Number [facility] LABORATORIES - [address] [phone] [facility] (ABNORMAL) BMP (Basic Metabolic Panel) (03/11/2016 5:55 AM CDT) Patholo gist Method Time Signature Sodium, P 129 (L) 135 - 145 [facility] MMOL/L LABORATORIES [facility] Potassium, P 4.1 3.6 - 5.2 [facility] MMOL/L LABORATORIES - [facility] BUN (Blood Urea 7 6 - 21 [facility] Nitrogen), S MG/DL LABORATORIES [facility] HX Bicarbonate, 25 22 - 29 [facility] P/S MMOL/L LABORATORIES - [facility] Chloride, S 88 (L) 98 - 107 [facility] MMOL/L LABORATORIES - [facility] Creatinine 0.6 0.6 - 1.1 [facility] MG/DL LABORATORIES - [facility] eGFR >60 >60 [facility] Non-Black/Afric ML/MIN/BS LABORATORIES - [place] [facility] eGFR-Black/Afri >60 >60 [facility] can [place] ML/MIN/BS LABORATORIES - [facility] Glucose, S 111 70 - 140 [facility] MG/DL LABORATORIES - [facility] Anion Gap 16 (H) 7 - 15 [facility] LABORATORIES [facility] Specimen Anatomical Collection Method Collection Time Receive d Time (Source) Location / / Volume Laterality 03/11/2016 5:55 AM 6 5:55 CDT AM CDT Isreal Vaca M.D. LAB BLOOD ADD-ON Performing Organization Address City/[facility]/ZIP Code Phon e Number [facility] LABORATORIES - [address] [phone] [facility] Lactate (03/11/2016 5:55 AM CDT) P athologist Signature Lactate, P 1.3 0.6 - 2.3 [facility] MMOL/L LABORATORIES - [facility] Specimen Anatomical Collection Method Collection Time Receive d Time (Source) Location / / Volume Laterality 03/11/2016 5:55 AM 6 5:55 CDT AM CDT Isreal Vaca M.D. LAB BLOOD NON ADD-ON Performing Organization Address City/State/ZIP Code Phon e Number [facility] LABORATORIES - [address] [place], [place] [address] [facility] (ABNORMAL) CK (Creatine Kinase) (03/11/2016 5:55 AM CDT) Patholo gist Method Time Signature Creatine 560 (H) 38 - 176 [facility] Kinase (CK), S U/L LABORATORIES - [facility] Specimen Anatomical Collection Method Collection Time Receive d Time (Source) Location / / Volume Laterality 03/11/2016 5:55 AM 6 5:55 CDT AM CDT Isreal Vaca M.D. LAB BLOOD ADD-ON Performing Organization Address City/State/ZIP Code Phon e Number [facility] LABORATORIES - [address] [place], [place] [address] [facility] documented in this encounter Visit Diagnoses Not on filedocumented in this encounter Additional Health Concerns Assessment Noted Time PHQ-9 Depression Total Score: 10 10/17/2015 9:46 AM CS T documented as of this encounter
--- OUTSIDE RECORDS SUMMARY | 2022-08-29 10:31 | XMS_ITS | Encounter Summary ---
:1960 Author Organization [facility] Address [address] [place] [address] Care Team Providers Name Role Phone Unavailable Primary Care Provider Unavailable Encounter Details Date Type Department Care Team Description 03/11/2016 - 03/13/2016 Hospital Encounter HX RST DOMITILLA 2D Social History Tobacco Use Types Packs/Day Years Used Date Smoking Tobacco: Never Assessed Sex Assigned at Date Recorded Female 07/10/2022 7:32 AM CDT documented as of this encounter Last Filed Vital Signs Vital Sign Reading Time Taken Comments Blood Pressure 144/97 03/13/2016 12:25 NIBP - Value fr om PM CDT [facility]. Pulse 89 03/13/2016 12:25 Value from Nupur tplus. PM CDT Temperature - - Respiratory Rate 18 03/13/2016 12:25 Value from Josette rtplus. PM CDT Oxygen Saturation - - Inhaled Oxygen - - Concentration Weight 56.4 kg (124 lb 5.4 03/12/2016 1:45 AM oz) CDT Height 160 cm (5' 2.99) 03/12/2016 1:45 AM CDT Body Mass Index 22.03 03/12/2016 1:45 AM CDT documented in this encounter Medications at Time [...] Diagnostic Neurology Karin Ramachandran M.D., M.P.H. [address] [place], [place] [phone] (Wo rk) 10/10/2022 Office Visit Neurology Karin Ramachandran M.D., M.P.H. [address] [place] [address] [phone] (Wo rk) documented as of this encounter Procedures Procedure Name Priority Date/Time Associated Comments Diagnosis ELECTROLYTE (CHEM 4) Routine 03/13/2016 5:06 Resu lts for this PANEL, S/P AM CDT procedure are i n the results section. CBC WITH DIFFERENTIAL, B Routine 03/13/2016 5:06 Results for this AM CDT procedure are i n the results section. CREATINE KINASE (CK), S Routine 03/13/2016 5:06 R esults for this AM CDT procedure are i n the results section. ELECTROLYTE (CHEM 4) Routine 03/12/2016 6:36 Resu lts for this PANEL, S/P AM CDT procedure are i n the results section. CBC WITH DIFFERENTIAL, B Routine 03/12/2016 6:36 Results for this AM CDT procedure are i n the results section. PHOSPHORUS (INORGANIC), Routine 03/12/2016 6:36 R esults for this S AM CDT procedure are i n the results section. MAGNESIUM, S Routine 03/12/2016 6:36 Results for this AM CDT procedure are i n the results section. CREATINE KINASE (CK), S Routine 03/12/2016 6:36 R esults for this AM CDT procedure are i n the results section. CALCIUM, TOT, S/P Routine 03/12/2016 6:36 Results for this AM CDT procedure are i n the results section. ELECTROLYTE (CHEM 4) Routine 03/11/2016 5:22 Resu lts for this PANEL, S/P PM CDT procedure are i n the results section. VITAMIN B12 AND FOLATE, Routine 03/11/2016 5:22 R esults for this S PM CDT procedure are i n the results section. PHOSPHORUS (INORGANIC), Routine 03/11/2016 5:22 R esults for this S PM CDT procedure are i n the results section. MAGNESIUM, S Routine 03/11/2016 5:22 Results for this PM CDT procedure are i n the results section. CALCIUM, TOT, S/P Routine 03/11/2016 5:22 Results for this PM CDT procedure are i n the results section. DX CHEST AP OR PA AND Routine 03/11/2016 12:05 Re sults for this LATERAL 2 VIEWS PM CDT procedure ar e in the results section. HX MICROBIOLOGY REPORTS Routine 03/11/2016 9:09 R esults for this AM CDT procedure are i n the results section. MICROSCOPIC MANUAL Routine 03/11/2016 9:09 Result s for this AM CDT procedure are i n the results section. GRAM'S STAIN, Routine 03/11/2016 9:09 Results for this CONFIRMATORY, U AM CDT procedure ar e in the results section. DRUG ABUSE SURVEY, U Routine 03/11/2016 9:09 Resu lts for this AM CDT procedure are i n the results section. GRAM'S ST, U Routine 03/11/2016 9:09 Results for this AM CDT procedure are i n the results section. URINALYSIS WITH Routine 03/11/2016 9:09 Results f or this MICROSCOPIC AM CDT procedure are i n the results section. ETHANOL, S Routine 03/11/2016 8:50 Results for this AM CDT procedure are i n the results section. OSMOLALITY, S Routine 03/11/2016 8:50 Results for this AM CDT procedure are i n the results section. CREATINE KINASE (CK), S Routine 03/11/2016 8:50 R esults for this AM CDT procedure are i n the results section. CT HEAD WITHOUT IV Routine 03/11/2016 7:00 Result s for this CONTRAST AM CDT procedure are i n the results section. ALANINE AMINOTRANSFERASE Routine 03/11/2016 5:55 Results for this (ALT), S/P AM CDT procedure are i n the results section. ASPARTATE Routine 03/11/2016 5:55 Results for this AMINOTRANSFERASE (AST), AM CDT proc edure are in S/P the results section. ALKALINE PHOSPHATASE, Routine 03/11/2016 5:55 Res ults for this S/P AM CDT procedure are i n the results section. BILIRUBIN, TOT, S/P Routine 03/11/2016 5:55 Resul ts for this AM CDT procedure are i n the results section. ALBUMIN, S/P Routine 03/11/2016 5:55 Results for this AM CDT procedure are i n the results section. documented in this encounter Results (ABNORMAL) CBC with Differential (03/13/2016 5:06 AM CDT) [facility] Method Time Signature Erythrocytes 3.60 (L) 3.90 - [facility] 5.03 LABORATORIES - X10(12)/L [facility] MCV 102.5 (H) 81.6 - [facility] 98.3 [place] LABORATORIES - [facility] RBC Distrib 13.5 11.9 - [facility] Width 15.5 % LABORATORIES - [facility] Platelet Count 227 150 - 450 [facility] X10(9)/L LABORATORIES - [facility] Lymphocytes 1.02 0.90 - [facility] 2.90 LABORATORIES - X10(9)/L [facility] Monocytes 0.68 0.30 - [facility] 0.90 LABORATORIES - X10(9)/L [facility] Hemoglobin 12.5 12.0 - [facility] 15.5 G/DL LABORATORIES - [facility] Hematocrit 36.9 34.9 - [facility] 44.5 % LABORATORIES - [facility] Leukocytes 11.3 (H) 3.5 - [facility] 10.5 LABORATORIES - X10(9)/L [facility] Neutrophils 9.27 (H) 1.70 - [facility] 7.00 LABORATORIES - X10(9)/L [facility] Eosinophils 0.25 0.05 - [facility] 0.50 LABORATORIES - X10(9)/L [facility] Basophils 0.03 0.00 - [facility] 0.30 LABORATORIES - X10(9)/L [facility] Specimen Anatomical Collection Method Collection Time Receive d Time (Source) Location / / Volume Laterality 03/13/2016 5:06 AM 6 5:06 CDT AM CDT Sunday Juarez M.D. LAB BLOOD ADD-ON Performing Organization Address City/State/ZIP Code Phon e Number [facility] LABORATORIES - [address] [place], [place] [address] [facility] (ABNORMAL) CK (Creatine Kinase) (03/13/2016 5:06 AM CDT) [facility] Method Time Signature Creatine 359 (H) 38 - 176 [facility] Kinase (CK), S U/L LABORATORIES - [facility] Specimen Anatomical Collection Method Collection Time Receive d Time (Source) Location / / Volume Laterality 03/13/2016 5:06 AM 6 5:06 CDT AM CDT Sunday Juarez M.D. LAB BLOOD ADD-ON Performing Organization Address City/[facility] Code Phon e Number [facility] LABORATORIES - [address] [place] [address] [facility] (ABNORMAL) Electrolyte (Chem 4) Panel (03/13/2016 5:06 AM CDT) [facility] Method Time Signature Sodium, S 134 (L) 135 - 145 [facility] MMOL/L LABORATORIES - [facility] Potassium, S 3.5 (L) 3.6 - 5.2 [facility] MMOL/L LABORATORIES - [facility] Creatinine 0.5 (L) 0.6 - 1.1 [facility] MG/DL LABORATORIES - [facility] eGFR >60 >60 [facility] Non-Black/Afric ML/MIN/BS LABORATORIES - [facility] A [facility] Anion Gap 16 (H) 7 - 15 [facility] LABORATORIES - [facility] Glucose, S 95 70 - 140 [facility] MG/DL LABORATORIES - [facility] Chloride, S 96 (L) 98 - 107 [facility] MMOL/L LABORATORIES - [facility] HX Bicarbonate, 22 22 - 29 [facility] P/S MMOL/L LABORATORIES - [facility] eGFR-Black/Afri >60 >60 [facility] can Niuean ML/MIN/BS LABORATORIES - A [facility] BUN (Blood Urea 6 6 - 21 [facility] Nitrogen), S MG/DL LABORATORIES - [facility] Specimen Anatomical Collection Method Collection Time Receive d Time (Source) Location / / Volume Laterality 03/13/2016 5:06 AM 6 5:06 CDT AM CDT Sunday Juarez M.D. LAB BLOOD ADD-ON Performing Organization Address City/[facility] Code Phon e Number [facility] LABORATORIES - [address] [place], [place] [address] [facility] (ABNORMAL) Electrolyte (Chem 4) Panel (03/12/2016 6:36 AM CDT) [facility] Method Time Signature Sodium, S 134 (L) 135 - 145 [facility] MMOL/L LABORATORIES - [facility] Potassium, S 4.6 3.6 - 5.2 [facility] MMOL/L LABORATORIES - [facility] Chloride, S 96 (L) 98 - 107 [facility] MMOL/L LABORATORIES - [facility] HX Bicarbonate, 26 22 - 29 [facility] P/S MMOL/L LABORATORIES - [facility] Creatinine 0.6 0.6 - 1.1 [facility] MG/DL LABORATORIES - [facility] eGFR >60 >60 [facility] Non-Black/Afric ML/MIN/BS LABORATORIES - an Niuean A [facility] eGFR-Black/Afri >60 >60 [facility] can Niuean ML/MIN/BS LABORATORIES - A [facility] BUN (Blood Urea 5 (L) 6 - 21 [facility] Nitrogen), S MG/DL LABORATORIES - [facility] Anion Gap 12 7 - 15 [facility] LABORATORIES - [facility] Glucose, S 84 70 - 140 [facility] MG/DL LABORATORIES - [facility] Specimen Anatomical Collection Method Collection Time Receive d Time (Source) Location / / Volume Laterality 03/12/2016 6:36 AM 6 6:36 CDT AM CDT Solange Ceja M.D. LAB BLOOD ADD-ON Performing Organization Address City/State/ZIP Code Phon e Number [facility] LABORATORIES - [address] [place], [place] [address] [facility] (ABNORMAL) CBC with Differential (03/12/2016 6:36 AM CDT) [facility] Method Time Signature Hemoglobin 12.4 12.0 - [facility] 15.5 G/DL LABORATORIES - [facility] Hematocrit 36.5 34.9 - [facility] 44.5 % LABORATORIES - [facility] Leukocytes 7.5 3.5 - [facility] 10.5 LABORATORIES - X10(9)/L [facility] Neutrophils 5.31 1.70 - [facility] 7.00 LABORATORIES - X10(9)/L [facility] Erythrocytes 3.56 (L) 3.90 - [facility] 5.03 LABORATORIES - X10(12)/L [facility] MCV 102.5 (H) 81.6 - [facility] 98.3 FL LABORATORIES - [facility] RBC Distrib 13.9 11.9 - [facility] Width 15.5 % LABORATORIES - [facility] Platelet Count 263 150 - 450 [facility] X10(9)/L LABORATORIES [facility] Lymphocytes 1.16 0.90 - [facility] 2.90 LABORATORIES - X10(9)/L [facility] Monocytes 0.73 0.30 - [facility] 0.90 LABORATORIES - X10(9)/L [facility] Eosinophils 0.25 0.05 - [facility] 0.50 LABORATORIES - X10(9)/L [facility] Basophils 0.02 0.00 - [facility] 0.30 LABORATORIES - X10(9)/L [facility] Specimen Anatomical Collection Method Collection Time Receive d Time (Source) Location / / Volume Laterality 03/12/2016 6:36 AM 6 6:36 CDT AM CDT Solange Ceja M.D. LAB BLOOD ADD-ON Performing Organization Address City/State/ZIP Code Phon e Number [facility] LABORATORIES - [address] [place] [address] [facility] Phosphorus Inorganic (03/12/2016 6:36 AM CDT) Analysis Performed At Patho logist Time Signature Phosphorus 3.5 2.5 - 4.5 [facility] (Inorganic), S MG/DL LABORATORIES [facility] Specimen Anatomical Collection Method Collection Time Receive d Time (Source) Location / / Volume Laterality 03/12/2016 6:36 AM 6 6:36 CDT AM CDT Solange Ceja M.D. LAB BLOOD ADD-ON Performing Organization Address City/State/ZIP Code Phon e Number [facility] LABORATORIES - [address] (ABNORMAL) CK (Creatine Kinase) (03/12/2016 6:36 AM CDT) Patholo gist Method Time Signature Creatine 894 (H) 38 - 176 [facility] Kinase (CK), S U/L [facility] Specimen Anatomical Collection Method Collection Time Receive d Time (Source) Location / / Volume Laterality 03/12/2016 6:36 AM 6 6:36 CDT AM CDT Solange Ceja M.D. LAB BLOOD ADD-ON Performing Organization Address City/State/ZIP Code Phon e Number [facility] LABORATORIES - [address] [place] [address] [facility] Magnesium (03/12/2016 6:36 AM CDT) P athologist Signature Magnesium, S 2.2 1.7 - 2.3 [facility] MG/DL [facility] Specimen Anatomical Collection Method Collection Time Receive d Time (Source) Location / / Volume Laterality 03/12/2016 6:36 AM 6 6:36 CDT AM CDT Solange Ceja M.D. LAB BLOOD ADD-ON Performing Organization Address City/[facility]/ZIP Code Phon e Number [facility] LABORATORIES - [address] [place], [place] [address] [facility] Calcium, Total (03/12/2016 6:36 AM CDT) P athologist Signature Calcium, 9.4 8.9 - 10.1 [facility] Total, S MG/DL LABORATORIES [facility] Specimen Anatomical Collection Method Collection Time Receive d Time (Source) Location / / Volume Laterality 03/12/2016 6:36 AM 6 6:36 CDT AM CDT Solange Ceja M.D. LAB BLOOD ADD-ON Performing Organization Address [facility] Phon e Number [facility] LABORATORIES - [address] [place] [address] [facility] Calcium, Total (03/11/2016 5:22 PM CDT) P athologist Signature Calcium, 9.1 8.9 - 10.1 [facility] Total, S MG/DL [facility] - [facility] Specimen Anatomical Collection Method Collection Time Receive d Time (Source) Location / / Volume Laterality 03/11/2016 5:22 PM 6 5:22 CDT PM CDT Solange Ceja M.D. LAB BLOOD ADD-ON Performing Organization Address City/[facility]/ZIP Code Phon e Number [facility] LABORATORIES - [address] [place] [address] [facility] (ABNORMAL) Magnesium (03/11/2016 5:22 PM CDT) Analysis Performed At Patho logist Time Signature Magnesium, S 1.5 (L) 1.7 - 2.3 [facility] MG/DL [facility] Specimen Anatomical Collection Method Collection Time Receive d Time (Source) Location / / Volume Laterality 03/11/2016 5:22 PM 6 5:22 CDT PM CDT Solange Ceja M.D. LAB BLOOD ADD-ON Performing Organization Address City/[facility]/ZIP Code Phon e Number [facility] LABORATORIES - [address] [place], [place] [address] [facility] Phosphorus Inorganic (03/11/2016 5:22 PM CDT) Analysis Performed At Patho logist Time Signature Phosphorus 3.3 2.5 - 4.5 [facility] (Inorganic), S MG/DL LABORATORIES - [facility] Specimen Anatomical Collection Method Collection Time Receive d Time (Source) Location / / Volume Laterality 03/11/2016 5:22 PM 6 5:22 CDT PM CDT Solange Ceja M.D. LAB BLOOD ADD-ON Performing Organization Address City/State/ZIP Code Phon e Number [facility] LABORATORIES - [address] [place], [place] [address] [facility] Vitamin B12 and Folate (03/11/2016 5:22 PM CDT) P athologist Signature Folate, S 8.0 >=4.0 [facility] MCG/L LABORATORIES - [facility] Vitamin B12 877 180 - 914 [facility] Assay, S NG/L LABORATORIES - [facility] Specimen Anatomical Collection Method Collection Time Receive d Time (Source) Location / / Volume Laterality 03/11/2016 5:22 PM 6 5:22 CDT PM CDT Solange Ceja M.D. LAB BLOOD NON ADD-ON Performing Organization Address City/State/ZIP Code Phon e Number [facility] LABORATORIES - [address] [place], [place] [address] [facility] (ABNORMAL) Electrolyte (Chem 4) Panel (03/11/2016 5:22 PM CDT) Patholo gist Method Time Signature Chloride, S 94 (L) 98 - 107 [facility] MMOL/L LABORATORIES - [facility] HX Bicarbonate, 22 22 - 29 [facility] P/S MMOL/L LABORATORIES - [facility] Creatinine 0.5 (L) 0.6 - 1.1 [facility] MG/DL LABORATORIES - [facility] eGFR >60 >60 [facility] Non-Black/Afric ML/MIN/BS LABORATORIES - an Niuean A [facility] Anion Gap 15 7 - 15 [facility] LABORATORIES - [facility] Glucose, S 83 70 - 140 [facility] MG/DL LABORATORIES - [facility] Sodium, S 131 (L) 135 - 145 [facility] MMOL/L LABORATORIES - [facility] Potassium, S 4.0 3.6 - 5.2 [facility] MMOL/L LABORATORIES - [facility] eGFR-Black/Afri >60 >60 [facility] can Niuean ML/MIN/BS LABORATORIES - A [facility] BUN (Blood Urea 6 6 - 21 [facility] Nitrogen), S MG/DL LABORATORIES - [facility] Specimen Anatomical Collection Method Collection Time Receive d Time (Source) Location / / Volume Laterality 03/11/2016 5:22 PM 6 5:22 CDT PM CDT Solange Ceja M.D. LAB BLOOD ADD-ON Performing Organization Address City/State/ZIP Code Phon e Number [facility] LABORATORIES - [address] [place], [place] [address] [facility] DX Chest AP or PA and Lateral 2 Views (03/11/2016 12:05 PM CDT) Anatomical Region Laterality Modality Chest N/A Radiographic Imaging Specimen (Source) Anatomical Collection Method Collection Time Re ceived Time Location / / Volume Laterality 03/11/2016 12:05 PM CDT Impressions 03/11/2016 12:16 PM CDT ??PO changes left shoulder are new since 11/06/2006. Remainder unchanged. Lungs clear. Electronically signed by: ?? Rory Davies MD [id number] 11-Mar-2016 12:1 6 Narrative 03/11/2016 12:16 PM CDT 11-Mar-2016 12:05:00 ??Exam: Chest-- 2 Views Indications: Coarse breath sounds; seizu re ORIGINAL REPORT - 11-Mar-2016 12:16:00 EXAM: ??Chest 2 views Procedure Note Rory Davies M.D. - 02/20/2018Forma tting of this note might be different from the original. 11-Mar-2016 12:05:00 Exam: Chest-- 2 Vie ws Indications: Coarse breath sounds; seizu re ORIGINAL REPORT - 11-Mar-2016 12:16:00 EXAM: Chest 2 views IMPRESSION: PO changes left shoulder are new since 11/06/2006. Remainder unchanged. Lungs clear. Electronically signed by: Rory Davies MD [id number] 11-Mar-2016 12:1 6 Solange Ceja M.D. IMG DIAGNOSTIC IMAGING PROCE DUR Microbiology Reports (03/11/2016 9:09 AM CDT) Specimen Anatomical Collection Method Collection Time Receive d Time (Source) Location / / Volume Laterality 03/11/2016 9:09 AM 6 9:36 CDT AM CDT Narrative [facility]ATORIES - [place] - 03/12/2016 7:56 AM CDT 11-MAR-2016 URINE, MIDSTREAM, ?SoftOrd# [id number] ?(Ordered 11-MAR-2016; Collec more 11-MAR-2016 09:09; Received 11-MAR-2016 09:35) ?[facility] ?BACTERIAL CULTURE, AEROBIC + CHAIDEZ SC ? (Reported 12-MAR-2016 07:56) FINAL ?Mixed yoshi. Procedure Note 02/27/2018 11-MAR-2016 URINE, MIDSTREAM, SoftOrd# [id number] (Ordered 11-MAR-2016; Collected 2015 09:09; Received 11-MAR-2016 09:35) [facility] BACTERIAL CULTURE, AEROBIC + SUSC (Rep orted 12-MAR-2016 07:56) FINAL Mixed yoshi. Isreal Vaca M.D. LAB MICROBIOLOGY - GENERAL O RDERABLES Performing Organization Address City/State/ZIP Code Phon e Number [facility] LABORATORIES - [address] [place], [place] [address] [facility] (ABNORMAL) Gram Stain, Confirmatory, Urine (03/11/2016 9:09 AM CDT) [facility] Method Time Signature Grams Stain, Positive (A) [facility] Confirmatory, LABORATORIES - Urine [facility] Comment: Many Gram-positive bacilli ? Bacteria on epithelial cells ? Specimen Anatomical Collection Method Collection Time Receive d Time (Source) Location / / Volume Laterality 03/11/2016 9:09 AM 6 9:09 CDT AM CDT Isreal Vaca M.D. LAB URINE ORDERABLES Performing Organization Address City/State/[facility] Phon e Number [facility] LABORATORIES - [address] [place], [place] [address] [facility] Gram Stain, Urine (03/11/2016 9:09 AM CDT) athologist Signature Gram's Stain, . [facility] Screen, U LABORATORIES - [facility] Comment: Screen positive. See Gram Stain Confirma tory for staining ? result. ? Specimen Anatomical Collection Method Collection Time Receive d Time (Source) Location / / Volume Laterality 03/11/2016 9:09 AM 6 9:09 CDT AM CDT Isreal Vaca M.D. LAB URINE ORDERABLES Performing Organization Address [facility] Phon e Number [facility] LABORATORIES - [address] [place] [address] [facility] Drug Abuse Survey, Urine (03/11/2016 9:09 AM CDT) [facility] Method Time Signature Ethanol Negative NEGATIVE [facility] Immunoassay LABORATORIES - Screen [facility] Barbiturates, Negative NEGATIVE [facility] Screen, U LABORATORIES - [facility] Opiates Negative NEGATIVE [facility] Phencyclidine Negative NEGATIVE [facility] LABORATORIES [facility] Benzodiazepines, Negative NEGATIVE [facility] Screen, U LABORATORIES - [facility] Cocaine Negative NEGATIVE [facility] Immunoassay LABORATORIES - Screen [facility] Tetrahydrocannabi . NEGATIVE [facility] nol, U LABORATORIES - [facility] Comment: Presumptive Positive Amphetamines, U . NEGATIVE [facility] [place] [facility] Comment: Presumptive Positive Specimen Anatomical Collection Method Collection Time Receive d Time (Source) Location / / Volume Laterality 03/11/2016 9:09 AM 6 9:09 CDT AM CDT Isreal Vaca M.D. LAB URINE ORDERABLES Performing Organization Address [facility] [place] Phon e Number [facility]IES - [address] [place] [address] 05 [facility] (ABNORMAL) Urinalysis with Microscopic (03/11/2016 9:09 AM CDT) [facility] Catglobe Method Time Signature Source Midstream [facility] Osmolality, 290 150 - [facility] 24 HR, U 1150 LABORATORIES - MOSM/KG [facility] Glucose 12 0 - 15 [facility] MG/DL [facility] Protein, U 21 <22 MG/DL [facility] Comment: ? ADDITIONAL INFORMATIO N ? On 06/07/2014 the total protein assay me thod changed resulting ? in approximately a 20% increase in prote in values. ? pH, 24 HR, U 5.9 4.5 - 8.0 [facility] LABOR ATORIES [facility] Appearance Normal Normal [facility] Protein/Osmolality 0.72 (H) <0.27 [facility]IO [facility] Comment: ? ADDITIONAL INFORMATIO N ? On 06/07/2014 the total protein assay me hanson changed resulting ? in approximately a 20% increase in prote in values. ? Predicted 24 Hr Protein 499 MG/24 H [facility] DORAL [facility] Predicted Range 123-2020 MG/24 H [facility] Hemoglobin, QL Negative Negative [facility] Specimen Anatomical Collection Method Collection Time Receive d Time (Source) Location / / Volume Laterality 03/11/2016 9:09 AM 6 9:09 CDT AM CDT Isreal Vaca M.D. LAB URINE ORDERABLES Performing Organization Address City/State/ZIP Code Phon e Number [facility] - [address] [place], [place] [address] [facility] (ABNORMAL) Microscopic Manual (03/11/2016 9:09 AM CDT) [facility] gist Method Time Signature Casts, Hyaline 4-10 /LPF [facility] Squamous 1-3 /HPF [facility] Epithelial LABORATORIES - [facility] Microscopy Abnormal [facility] WBC 1-3 1-3 [facility] (Males); LABORATORIES - 1-10 [facility] (Females[facility]US /HPF Bacteria Present (A) [facility] Specimen Anatomical Collection Method Collection Time Receive d Time (Source) Location / / Volume Laterality 03/11/2016 9:09 AM 6 9:09 CDT AM CDT Isreal Vaca M.D. LAB URINE ORDERABLES Performing Organization Address City/[facility]/ZIP Code Phon e Number [facility] - [address] [place] [address] [facility] (ABNORMAL) CK (Creatine Kinase) (03/11/2016 8:50 AM CDT) [facility] Method Time Signature Creatine 767 (H) 38 - 176 [facility] Kinase (CK), S U/L [facility] Specimen Anatomical Collection Method Collection Time Receive d Time (Source) Location / / Volume Laterality 03/11/2016 8:50 AM 6 8:50 CDT AM CDT Joshua Shine M.D. LAB BLOOD ADD-ON Performing Organization Address City/State/ZIP Code Phon e Number [facility] - [address] [place] [address] [facility] Ethanol Level, Serum (03/11/2016 8:50 AM CDT) P athologist Signature Ethanol, S <10 <10 MG/DL [facility] Specimen Anatomical Collection Method Collection Time Receive d Time (Source) Location / / Volume Laterality 03/11/2016 8:50 AM 6 8:50 CDT AM CDT Joshua Shine M.D. LAB BLOOD NON ADD-ON Performing Organization Address City/[facility]/ZIP Code Phon e Number [facility] - [address] [place] [address] [facility] (ABNORMAL) Osmolality (03/11/2016 8:50 AM CDT) [facility] Method Time Signature Osmolality, S 263 (L) 275 - 295 [facility] MOSM/KG [facility] Specimen Anatomical Collection Method Collection Time Receive d Time (Source) Location / / Volume Laterality 03/11/2016 8:50 AM 6 8:50 CDT AM CDT Solange Ceja M.D. LAB BLOOD ADD-ON Performing Organization Address City/State/ZIP Code Phon e Number [facility] - [address] [place], [place] [address] [facility] CT Head without IV Contrast (03/11/2016 7:00 AM CDT) Anatomical Region Laterality Modality Head N/A Computed Tomography Specimen (Source) Anatomical Collection Method Collection Time Re ceived Time Location / / Volume Laterality 03/11/2016 7:00 AM CDT Impressions 03/11/2016 12:00 PM CDT ??No acute intracranial findings. FINDINGS: ??No acute intracranial hemorr camila, mass effect, or changes of early ischemia. Mild to moderate generalized parenchymal volume loss has progressed, as can be expected over the long imaging int erval and not significantly out of propo rtion for age. Degenerative change in the upper cervical spine. Electronically signed by: ?? Fabio Jaramillo MD. [id number] 11-Mar-2016 12:00 Narrative 03/11/2016 12:00 PM CDT 11-Mar-2016 07:00:00 ??Exam: CT Head wo Indications: new onset of seizure REVISED REPORT - 11-Mar-2016 12:00:00 EXAM: ??CT scan of the Head without IV c ontrast COMPARISON: MRI brain 05/21/2003 Procedure Note Sandro Jaramillo M.D. - 02/20/2018Formatt ing of this note might be different from the original. 11-Mar-2016 07:00:00 Exam: CT Head wo Indications: new onset of seizure REVISED REPORT - 11-Mar-2016 12:00:00 EXAM: CT scan of the Head without IV con trast COMPARISON: MRI brain 05/21/2003 IMPRESSION: No acute intracranial findin gs. FINDINGS: No acute intracranial hemorrha ge, mass effect, or changes of early ischemia. Mild to moderate generalized parenchymal volume loss has progressed, as can be expected over the long imaging interval and not significantly out of proportion for age. Degenerative change in the upper cervical spine. Electronically signed by: Fabio Jaramillo MD. [id number] 11-Mar-2016 12:00 Isreal Vaca M.D. IMG CT PROCEDURES (ABNORMAL) AST (Aspartate Aminotransferase) (03/11/2016 5:55 AM CDT) Analysis Performed At Patho logist Time Signature AST, Total, S 78 (H) 8 - 43 U/L [facility] Specimen Anatomical Collection Method Collection Time Receive d Time (Source) Location / / Volume Laterality 03/11/2016 5:55 AM 6 5:55 CDT AM CDT Darryl Bahena M.D. LAB BLOOD ADD-ON Performing Organization Address City/State/ZIP Code Phon e Number [facility] - [address] [place] [address] [facility] ALT (Alanine Aminotransferase) (03/11/2016 5:55 AM CDT) [facility] Method Time Signature Alanine 35 7 - 45 [facility] Aminotransferase U/L LABORATORIES - (ALT), S [facility] Specimen Anatomical Collection Method Collection Time Receive d Time (Source) Location / / Volume Laterality 03/11/2016 5:55 AM 6 5:55 CDT AM CDT Darryl Bahena M.D. LAB BLOOD ADD-ON Performing Organization Address City/State/ZIP Code Phon e Number [facility] - [address] [place] [address] [facility] Alkaline Phosphatase (03/11/2016 5:55 AM CDT) P athologist Signature Alkaline 83 46 - 118 [facility] Phosphatase, S U/L [facility] Specimen Anatomical Collection Method Collection Time Receive d Time (Source) Location / / Volume Laterality 03/11/2016 5:55 AM 6 5:55 CDT AM CDT Darryl Bahena M.D. LAB BLOOD ADD-ON Performing Organization Address City/State/ZIP Code Phon e Number [facility] - [address] [place] [address] [facility] (ABNORMAL) Bilirubin, Total (03/11/2016 5:55 AM CDT) [facility] Method Time Signature Bilirubin, 1.3 (H) <=1.2 [facility] Total, S MG/DL [facility] Specimen Anatomical Collection Method Collection Time Receive d Time (Source) Location / / Volume Laterality 03/11/2016 5:55 AM 6 5:55 CDT AM CDT Darryl Bahena M.D. LAB BLOOD ADD-ON Performing Organization Address City/[facility]/ZIP Code Phon e Number [facility] - [address] [place], [place] [address] [facility] (ABNORMAL) Albumin (03/11/2016 5:55 AM CDT) P athologist Signature Albumin, S 5.1 (H) 3.5 - 5.0 [facility] G/DL LABORATORIES - [facility] Specimen Anatomical Collection Method Collection Time Receive d Time (Source) Location / / Volume Laterality 03/11/2016 5:55 AM 6 5:55 CDT AM CDT Darryl Bahena M.D. LAB BLOOD ADD-ON Performing Organization Address City/[facility]/ZIP Code Phon e Number [facility] - [address] [place], [place] [address] [facility] documented in this encounter Visit Diagnoses Not on filedocumented in this encounter Additional Health Concerns Assessment Noted Time PHQ-9 Depression Total Score: 10 10/17/2015 9:46 AM CS T documented as of this encounter
--- OUTSIDE RECORDS SUMMARY | 2022-08-29 10:31 | XMS_ITS | Encounter Summary ---
:1960 Author Organization [facility] Address [address] [place] [address] Care Team Providers Name Role Phone Faye Liao M.D. Primary Care Provider Reason for Visit Reason Comments Med Refill Encounter Details Date Type Department Care Team Description 05/30/2018 Refill Department of [facility] Faye Liao M.D. Med Refill Internal Medicine in [place], [address] [place] [address] [facility] [place] [address] [phone] Social History Tobacco Use Types Packs/Day Years Used Date Smoking Tobacco: Heavy Smoker Sex Assigned at Date Recorded Female 07/10/2022 7:32 AM CDT documented as of this encounter Miscellaneous Notes Telephone Encounter - Ashanti King - 06/11/2018 9:34 AM CDT Letter sent. Telephone Encounter - Magda Camara - 06/02/2018 11:26 AM CDT Unable to contact pt, phone numbers not correct. Telephone Encounter - [place] - 05/30/2018 9:07 AM CDT Please contact patient Telephone Encounter - Faye Liao M.D. - 05/30/2018 9:02 AM CDT Needs appt before further refills documented in this encounter Plan of Treatment Upcoming Encounters Date Type Specialty Care Team Description 08/30/2022 Diagnostic Neurology Karin Ramachandran M.D., M.P.H[facility] [address] [phone] (Wo rk) 10/10/2022 Office Visit Neurology Karin Ramachandran M.D., M.P.H[facility] [address] [phone] (Wo rk) documented as of this encounter Visit Diagnoses Not on filedocumented in this encounter Additional Health Concerns Assessment Noted Time PHQ-9 Depression Total Score: 6 03/20/2017 1:11 PM CDT documented as of this encounter Care Teams Candy Depositing Machine Operator Relationship Specialty Start Date End Date Faye Liao M.D. PCP - General 05/09/17 01/14/20 [address] [place] [id number] documented as of this encounter
--- OUTSIDE RECORDS SUMMARY | 2022-08-29 10:31 | XMS_ITS | Encounter Summary ---
:1960 Author Organization [facility] Address [address] [place] [address] Care Team Providers Name Role Phone Unavailable Primary Care Provider Unavailable Encounter Details Date Type Department Care Team Description 03/26/2017 Hospital Encounter HX [facility] Aurelia Grigsby M.D. [address] [place] [phone] (Wo rk) Social History Tobacco [...] - - Height 160 cm (5' 2.99) 03/26/2017 8:08 AM CDT Body Mass Index - - documented in this encounter Medications at Time of Discharge Medication Sig Dispensed Refills Start Date End Date albuterol 90 Inhale 2 puffs every 4 0 03/11/2016 mcg/actuation inhaler (four) hours as needed. CALCIUM CARB/VIT Calcium 600+D See 0 02/20/2014 D3/MINERALS Instructions, 1 TABLET (CALCIUM-VITAMIN D DAILY ORAL) EPINEPHrine Inject 0.3 mg 0 03/20/2017 (for_EPIPEN) 0.3 intramuscularly See mg/0.3 mL injection Admin Instructions. syringe omeprazole Take 1 tablet by mouth 0 03/20/2017 (for_PriLOSEC) 20 mg daily as needed. capsule amLODIPine Take 1 tablet by mouth 0 03/20/2017 (for_NORVASC) 10 mg daily. tablet folic acid 400 mcg Take 400 mcg by mouth 0 201604/04/2018 tablet daily. documented as of this encounter Miscellaneous Notes Miscellaneous - Faye Yadav M.D. - 03/29/2017 5:51 PM CDT Normal Results Letter March 29, 2017 ZANDRA MAI [address] [address] [place] [id number] Dear ZANDRA MAI, I am pleased to report that your results from the following diagnostic test(s) look pretty good including thyroid function, electrolytes, kidney function, and no anemia. Your blood sugar is in the normal range if you're not fasting. 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 Her liver enzymes are stable atthis time. Please follow up with us as we discussed during your visit or sooner if you have any concerns. If you have questions or concerns, please do not hesitate to call our office. Would you like to see your lab results quickly? If you have an e-mail account, join the other [phone],000 [facility] patients who use the Patient Online Services to conveniently access their lab results by calling [phone] to sign up for an account. It just takes a few minutes! Result Name Current Result Previous Result Normal Range Sodium Lvl (mmol/L) 136 03/26/2017 139 05/01/2016 135 - 145 Potassium Lvl (mmol/L) 4.0 03/26/2017 4.2 05/01/2016 3.5 - 5.1 Chloride (mmol/L) (L) 94 03/26/2017 (L) 95 05/01/2016 98 - 107 CO2 (mmol/L) 23 03/26/2017 27 05/01/2016 22 - 29 AGAP (mmol/L) 20 03/26/2017 17 05/01/2016 10 - 20 Alkaline Phosphatase (U/L) 71 03/26/2017 109 05/01/2016 46 - 118 Glucose Lvl (mg/dL) 101 03/26/2017 96 05/01/2016 70 - 139 Creatinine (mg/dL) (L) 0.57 03/26/2017 (L) 0.43 05/01/2016 0.59 - 1.04 EGFR (MDRD) (mL/min/1.73m2) >60 03/26/2017 >60 05/01/2016 >=60 - rbBUN (mg/dL) 14 03/26/2017 (L) 5 05/01/2016 6 - 21 Calcium Lvl (mg/dL) 9.9 03/26/2017 9.8 05/01/2016 8.6 - 10.3 Protein Total (g/dL) 7.6 03/26/2017 7.1 05/01/2016 6.3 - 7.9 Albumin Lvl (g/dL) 4.9 03/26/2017 4.5 05/01/2016 3.5 - 5.0 AST (U/L) 41 03/26/2017 (H) 44 05/01/2016 8 - 43 ALT (U/L) 28 03/26/2017 21 05/01/2016 7 - 45 Bili Total (mg/dL) 0.5 03/26/2017 0.4 05/01/2016 0.1 - 1.0 TSH (mIU/L) 0.94 03/26/2017 1.84 10/17/2015 0.27 - 4.20 Hgb (g/dL) (H) 15.6 03/26/2017 12.0 - 15.5 Hct (%) (H) 44.8 03/26/2017 34.9 - 44.5 WBC (x10(9)/L) 8.0 03/26/2017 3.5 - 10.5 RBC (x10(12)/L) 4.49 03/26/2017 3.90 - 5.03 MCV (fL) (H) 99.8 03/26/2017 81.6 - 98.3 RDW (%) 13.2 03/26/2017 11.9 - 15.5 Platelet (x10(9)/L) 304 03/26/2017 150 - 450 [facility] 03/26/2017 Negative - Sincerely, FAYE YADAV [facility] [place] [address] Electronic Signature Electronically Signed By: FAYE YADAV MD On: March 29, 2017 This document has images extracted. Source: [facility] POWERCHART Document Id: [id number] Electronically signed by Conversion, [facility] Border Measurer And Cutter [id number] at 05/07/2017 5:05 AM CDT documented in this encounter Plan of Treatment Upcoming Encounters Date Type Specialty Care Team Description 08/30/2022 Diagnostic Neurology Karin Ramachandran M.D., M.P.H[facility] [address] [place], [place] [phone] (Wo rk) 10/10/2022 Office Visit Neurology Karin Ramachandran M.D., M.P.H[facility] [address] [place], [place] [phone] (Wo rk) documented as of this encounter Procedures Procedure Name Priority Date/Time Associated Comments Diagnosis HCV AB SCRN W/REFLEX Routine 03/26/2017 8:12 AM R esults for this TO HCV PCR, S CDT procedure are in the results section. CBC WITHOUT Routine 03/26/2017 8:12 AM Results f or this DIFFERENTIAL, B CDT procedure ar e in the results section. THYROID-STIMULATING Routine 03/26/2017 8:12 AM Re sults for this HORMONE-SENSITIVE CDT procedure are in (S-TSH) the results section. COMPREHENSIVE Routine 03/26/2017 8:12 AM Results for this METABOLIC PANEL, S/P CDT procedu re are in the results section. documented in this encounter Results (ABNORMAL) CBC without Differential (03/26/2017 8:12 AM CDT) Analysis Performed At Patho logist Time Signature Leukocytes 8.0 3.5 - 10.5 POWERCHART X109L Erythrocytes 4.49 3.90 - POWERCHART 5.03 [id number] Hemoglobin 15.6 (H) 12.0 - POWERCHART 15.5 GDL Hematocrit 44.8 (H) 34.9 - POWERCHART 44.5 MCV 99.8 (H) 81.6 - POWERCHART 98.3 FL HX RDW 13.2 11.9 - POWERCHART 15.5 Platelet Count 304 150 - 450 POWERCHART X109L Specimen (Source) Anatomical Collection Method Collection Time Re ceived Time Location / / Volume Laterality Blood 03/26/2017 8:12 AM CDT Faye Yadav M.D. LAB BLOOD ADD-ON Performing Organization Address City/State/ZIP Code Phon e Number POWERCHART HCV Ab w/Reflex to HCV PCR, S (medicare) (03/26/2017 8:12 AM CDT) athologist Signature HXHCV Ab Negative Negative POWERCHART [facility] Comment: Xwzwoe-nx-pagksg ratio is <1.00. Test Performed by: [facility] [address] [place] [id number] Specimen (Source) Anatomical Collection Method Collection Time Re ceived Time Location / / Volume Laterality Blood 03/26/2017 8:12 AM CDT Faye Yadav M.D. LAB MICROBIOLOGY - BLOOD ORD ERABLES Performing Organization Address City/[facility]/ZIP Code Phon e Number POWERCHART Thyroid-Stimulating Hormone-Sensitive (s-TSH) (03/26/2017 8:12 AM CDT) athologist Signature TSH 0.94 0.27 - 4.20 POWERCHART (Thyrotropin) MISONDRA Comment: Biotin has been identified by the kaleb nguyen as a potential interfering substance. Higher concentrations of biotin may be found in multivitamins, hair/nail supplements, and workout supplements. If the result does not match clinical observat ions, repeat testing after patient refrains from the use of supplements for at least 12 hours. Specimen (Source) Anatomical Collection Method Collection Time Re ceived Time Location / / Volume Laterality Blood 03/26/2017 8:12 AM CDT Faye Yadav M.D. LAB BLOOD ADD-ON Performing Organization Address City/[facility]/ZIP Code Phon e Number POWERCHART (ABNORMAL) CMP (Comprehensive Metabolic Panel) (03/26/2017 8:12 AM CDT) Patholo gist Method Time Signature Alanine 28 7 - 45 UL POWERCHART Amniotransferase, LD Albumin, S 4.9 3.5 - 5.0 POWERCHART GDL Alkaline 71 46 - 118 POWERCHART Phosphatase, S UL Aspartate 41 8 - 43 UL POWERCHART Aminotransferase (AST), S Sodium, S 136 135 - 145 POWERCHART MMOLL Potassium, S 4.0 3.5 - 5.1 POWERCHART [facility] Chloride, S 94 (L) 98 - 107 POWERCHART M[facility] CO2 Total 23 22 - 29 POWERCHART MMOLL BUN (Blood Urea 14 6 - 21 POWERCHART Nitrogen), S MGDL Creatinine 0.57 (L) 0.59 - POWERCHART 1.04 MGDL Calcium, Total, S 9.9 8.6 - POWERCHART 10.3 MGDL Anion Gap 20 10 - 20 POWERCHART MMOLL Bilirubin, Total, S 0.5 0.1 - 1.0 POWERCHART MGDL Total Protein, S 7.6 6.3 - 7.9 POWERCHART GDL Glucose 101 70 - 139 POWERCHART MGDL eGFR Black/ >60 >=60 POWERCHART French [id number] 2 HXeGFR (MDRD) >60 >=60 POWERCHART [id number] 2 Comment: Results are in mL/min/1.73m CKD Stage I: ? GFR > 90 CKD Stage II: ?GFR 60 to 89 CKD Stage III: ? GFR 30 to 59 CKD Stage IV: ? GFR 15 to 29 CKD Stage V: ?GFR < 15 or Dialysi s Specimen (Source) Anatomical Collection Method Collection Time Re ceived Time Location / / Volume Laterality Blood 03/26/2017 8:12 AM CDT Faye Yadav M.D. LAB BLOOD ADD-ON Performing Organization Address City/State/ZIP Code Phon e Number POWERCHART documented in this encounter Visit Diagnoses Not on filedocumented in this encounter Additional Health Concerns Assessment Noted Time PHQ-9 Depression Total Score: 6 03/20/2017 1:11 PM CDT documented as of this encounter
--- OUTSIDE RECORDS SUMMARY | 2022-08-29 10:31 | XMS_ITS | Encounter Summary ---
:1960 Author Organization [facility] Address [address] [place] [address] Care Team Providers Name Role Phone Faye Liao M.D. Primary Care Provider Encounter Details Date Type Department Care Team Description 03/18/2018 Orders Only Department of Faye Liao Monitorin g For Therapeutic Drug Therapy (Primary Dx); Community Internal Milly Hypertension Essential Primary; Medicine in [address] Screening Mammogram Average Risk Patient [place] [address] [address] [address] [place], [place] [phone] [address] (Work) [phone] Social History Tobacco Use Types Packs/Day Years Used Date Smoking Tobacco: Heavy Smoker Sex Assigned at Date Recorded Female 07/10/2022 7:32 AM CDT documented as of this encounter Plan of Treatment Upcoming Encounters Date Type Specialty Care Team Description 08/30/2022 Diagnostic Neurology Karin Ramachandran M.D., M.P.H[facility] [address] [phone] (Wo rk) 10/10/2022 Office Visit Neurology Karin Ramachandran M.D., M.P.H[facility] [address] [phone] (Wo rk) documented as of this encounter Visit Diagnoses Diagnosis Monitoring For Therapeutic Drug Therapy - Primary Hypertension Essential Primary Screening Mammogram Average Risk Patient documented in this encounter Additional Health Concerns Assessment Noted Time PHQ-9 Depression Total Score: 6 03/20/2017 1:11 PM CDT documented as of this encounter Care Teams Personal Lines Insurance Agent Relationship Specialty Start Date End Date Faye Liao M.D. PCP - General 05/09/17 01/14/20 [address] [place] [address] documented as of this encounter
--- OUTSIDE RECORDS SUMMARY | 2022-08-29 10:31 | XMS_ITS | Encounter Summary ---
:1960 Author Organization [facility] Address [address] [place] [address] Care Team Providers Name Role Phone Faye Liao M.D. Primary Care Provider Reason for Visit Reason Comments Med Refill Encounter Details Date Type Department Care Team Description 05/31/2018 Refill Department of [facility] Faye Liao M.D. Med Refill Internal Medicine in [place], [address] [place] [address] [facility] [place] [address] [phone] Social History Tobacco Use Types Packs/Day Years Used Date Smoking Tobacco: Heavy Smoker Sex Assigned at Date Recorded Female 07/10/2022 7:32 AM CDT documented as of this encounter Plan of Treatment Upcoming Encounters Date Type Specialty Care Team Description 08/30/2022 Diagnostic Neurology Karin Ramachandran M.D., M.P.H[facility] [address] [place] [phone] (Howie rk) 10/10/2022 Office Visit Neurology Karin Ramachandran M.D., M.P.H. [address] [place] [phone] (Howie rk) documented as of this encounter Visit Diagnoses Not on filedocumented in this encounter Additional Health Concerns Assessment Noted Time PHQ-9 Depression Total Score: 6 03/20/2017 1:11 PM CDT documented as of this encounter Care Teams Food And Drug Inspector Relationship Specialty Start Date End Date Faye Liao M.D. PCP - General 05/09/17 01/14/20 [address] [place] [address] documented as of this encounter
--- OUTSIDE RECORDS SUMMARY | 2022-08-29 10:31 | XMS_ITS | Encounter Summary ---
:1960 Author Organization [facility] Address [address] [place] [address] Care Team Providers Name Role Phone Unavailable Primary Care Provider Unavailable Encounter Details Date Type Department Care Team Description 03/20/[address] [facility] Aurelia Yadav M.D. [address] [place] [address] (Wo rk) Social History Tobacco Use Types Packs/Day Years Used Date Smoking Tobacco: Never Assessed Sex Assigned at Date Recorded Female 07/10/2022 7:32 AM CDT documented as of this encounter Last Filed Vital Signs Vital Sign Reading Time Taken Comments Blood Pressure 127/80 03/20/2016 10:16 AM CDT Pulse 77 03/20/2016 10:16 AM CDT Temperature - - Respiratory Rate - - Oxygen Saturation - - Inhaled Oxygen Concentration - - Weight 60 kg (132 lb 4.4 oz) 03/20/2016 10:16 AM CDT Height 160 cm (5' 2.99) 03/20/2016 10:16 AM CDT Body Mass Index 23.44 03/20/2016 10:16 AM CDT documented in this encounter Medications at Time of Discharge Medication Sig Dispensed Refills Start Date End Date albuterol 90 Inhale 2 puffs every 4 0 03/11/2016 mcg/actuation inhaler (four) hours as needed. CALCIUM CARB/VIT Calcium 600+D See 0 02/20/2014 D3/MINERALS Instructions, 1 TABLET (CALCIUM-VITAMIN D ORAL) DAILY documented as of this encounter Progress Notes Faye Yadav M.D. - 03/20/2016 10:29 AM CDT Clinic Full Note CHIEF COMPLAINT/REASON FOR VISIT hospital follow-up HISTORY OF PRESENT ILLNESS Patient was hospitalized at [facility] from 03/11- for alcohol withdrawal seizure. She had used methamphetamine, THC, and alcohol in the setting of seeing a friend she had not seen in many years, Notes reviewed in Synthesis. Had probably 16 shots of whiskey that day plus some beer. She has a long history of alcohol use but wishes to clarify today (compared with what she told the physicians in the ED), that she had been drinking whiskey, up to a quart a week, on 5/7 days, up to her hospitalization. She has had a few cocktails with her 's friends in the past few days, but states she has cut back considerably since her hospitalization. She denies previous alcohol withdrawal. She does not think she needs treatment at this time. She states her does not think she needs treatment. She has lost no significant weight on review of her chart, she is within 2kg of her weight 3 years ago and up 1kg from 5 months ago. She has had a cough for more than 6 months, nonproductive and sometimes has shortness of breath. She has used the [place] quit plan and has been off cigarettes for 8 days. She is using 21mg nicotine patch. She is feeling good about her chances to stay quit. MEDICATIONS albuterol CFC free 90 mcg/inh inhalation aerosol, 2 puff(s), use with spacer chamber, Inhalation, q4hr, PRN, 5 refills Ambien CR 6.25 mg oral tablet, extended release, 6.25 mg, 1 tab(s), do not crush or chew, PO, Bedtime, PRN, 3 refills amLODIPine 5 mg oral tablet, 5 mg, PO, Daily, 3 refills aspirin 81 mg oral delayed release capsule, See Instructions, 1 CAPSULE DAILY bisacodyl 5 mg oral delayed release tablet, See Instructions, take all four tabs with 8 oz of fluidas instructed by colonoscopy prep instructions Calcium 600+D, See Instructions, 1 TABLET DAILY EpiPen 2-Reg 0.3 mg injectable kit, PRN, IM, Once folic acid, 400 mcg, Daily gabapentin 300 mg oral capsule, 300 mg, 1 cap(s), MCR Stop as of 03/21/2016, PO, 3xDay ibuprofen 200 mg oral capsule, See Instructions, 2 tabs and limits to 4 daily levothyroxine 88 mcg (0.088 mg) oral tablet, 88 mcg, PO, Daily, 3 refills loratadine 10 mg oral tablet, 10 mg, 1 tab(s), PO, Daily Multi-Day with Calcium and Extra Iron, See Instructions, None Entered Nicoderm 21 mg/24 hr transdermal film, extended release, 1 patch(es), Daily omeprazole, 20 mg, PO, Daily polyethylene glycol 3350 oral powder for reconstitution, See Instructions, Mix and use as directed for colonoscopy prep. 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 SOCIAL HISTORY Date Time: 03/20/2016 10:16 Tobacco: Smoking Status: Former smoker Exposure: Patient smokes, Other: .5-1 PPD Alcohol: Use: No Results Found Recreational Drugs: Use: No Results Found Type: No Results Found FAMILY HISTORY Father:Positive: Hypertension; Skin cancer; Stroke Sister:Positive: Arthritis; Hypertension Aunt (paternal):Positive: Breast cancer; Cancer VITAL SIGNS T: 36.1 ??C (Core) HR: 77 BP: 127 / 80 HT: 160 cm WT: 60.0 kg BMI: 23.44 PHYSICAL EXAMINATION GENERAL: Patient is comfortable, polite and in no distress. HEENT: moist mucosa, no oral lesions, pharynx not inflamed. NECK: supple, no lymphadenopathy HEART: Normal rate and rhythm. No murmurs, rubs or gallops. LUNGS: left sided rhonchi throughout and right is clear. No wheeze, rales or rhonchi noted. Normal work of breathing ABDOMEN: Soft, nontender, nondistended. EXT: No cyanosis, clubbing or edema. SKIN: no rashes or suspicious lesions PSYCH: mental status appropriate. Normal speech and affect. LAB RESULTS pending IMPRESSION/REPORT/PLAN 1. Alcohol Withdrawal Syndrome Recommended treatment, either inpatient or outpatient treatment for her alcohol dependence. Specifically discussed each of the organ systems (liver, brain, marrow, kidney) that appear to be affected by her alcohol use with patient. She states she will think about pursuing this on her own. In the meantime, strongly encourage abstinence from alcohol. Will keep her on thiamine, folate, and gabapentin 300mg tid for now. Recheck in 2-3 weeks or sooneras needed. 2. Dependence Alcohol NOS As above. 3. Hyponatremia Recheck BMP, CT chest ordered. 4. Abuse Tobacco NOS Patient congratulated on her smoking cessation thus far. She will continue 21mg patches for now andrecheck in 2-3 weeks. 5. Loss Weight Abnormal Actually weight has been stable. Will monitor. 6. Cough Chronic CT scan chest. Follow up afterward. Strongly encourage continued smoking abstinence. 7. Insomnia NOS Stop ambien and use melatonin 3-5mg as needed for sleep instead. 8. [facility] () Patient plans to do colonoscopy after her chest CT is done. Orders: Comprehensive Metabolic Panel I spent more than 20 minutes of this 30 minute appointment in counseling on management of alcohol and tobacco dependence. RTC 2-3 weeks for recheck. Electronically Signed By: FAYE YADAV MD On: 03/20/2016 04:30 PM Source: zanda POWERCHART Document Id: [id number] documented in this encounter Miscellaneous Notes Miscellaneous - Conversion, Historical Provider Ser - 04/12/2016 8:37 AM CDT Schedule Follow-Up Visit April 12, 2016 CHIP MAI [address] [place] [id number] Dear CHIP MAI, Our records indicate that you are due for fasting labs for Dr. Yadav prior to your next appointment with her. Please call us to make an appointment at your convenience. Our telephone number for scheduling an appointment is [phone]. Your health is important to us. If you have already made an appointment for this or have had the procedure done, please disregard this notice. Sincerely, SHENG WHYTE Electronic Signature Electronically Signed By: SHENG WHYTE On: April 12, 2016 This document has images extracted. Source: [facility] POWERCHART Document Id: [id number] Miscellaneous - Faye Yadav M.D. - 03/21/2016 2:12 PM CDT Normal Results Letter March 21, 2016 CHIP MAI [address] [place] [id number] Dear CHIP MAI, I am pleased to report that your results from the following diagnostic test(s) are normal except formildly elevated potassium, which is actually improved since September. Your sodium level is back to normal. Your kidney function is a bit worse since September, but still normal. I will look forward to seeing you in a few weeks after your CT scan. Please follow up with us as we discussed during your visit or sooner if you have any concerns. If you have questions or concerns, please do not hesitate to call our office. Result Name Current Result Previous Result Normal Range Sodium Lvl (mmol/L) 140 03/20/2016 136 10/17/2015 135 - 145 Potassium Lvl (mmol/L) (H) 5.3 03/20/2016 (H) 5.5 10/17/2015 3.6 - 5.2 Chloride (mmol/L) 98 03/20/2016 (L) 94 10/17/2015 98 - 107 CO2 (mmol/L) 28 03/20/2016 24 10/17/2015 22 - 29 Glucose Lvl (mg/dL) 88 03/20/2016 70 - 139 Creatinine (mg/dL) (L) 0.57 03/20/2016 (L) 0.48 10/17/2015 0.60 - 1.10 EGFR (MDRD) (mL/min/1.73m2) >60 03/20/2016 >60 10/17/2015 >=60 - BUN (mg/dL) 6 03/20/2016 6 10/17/2015 6 - 21 Calcium Lvl (mg/dL) 10.2 03/20/2016 9.8 10/17/2015 8.6 - 10.3 Sincerely, FAYE YADAV [address] [place] [id number] Electronic Signature Electronically Signed By: FAYE YADAV MD On: March 21, 2016 This document has images extracted. Source: [facility] POWERCHART Document Id: [id number] Miscellaneous - Faye Yadav M.D. - 03/20/2016 4:31 PM CDT Ambulatory Patient Summary [address] [id number] Visit Information Name: CHIP MAI [facility] Number: [id number] Current Date: 03/20/2016 16:31:24 Physicians Attending Provider: FAYE YADAV MD Primary Care Provider: FAYE YADAV MD SANDICHIP STAPLES JACQUI has been given the following list of follow-up instructions, medication list, and patient education materials: Follow-up Instructions Your Medications Here is a list of your medications. It is important to take your medications as directed. Use a pillbox or chart to help remind you to take your medications. Please let your doctor or nurse know if you have problems taking your medications. Medication/Strength How to Take Indications/Special Instructions/Comments/Notes for Patient Medication Changes/Routing albuterol (albuterol CFC free 90 mcg/inh inhalation aerosol) 2 puff(s), Inhalation, every 4 hours asneeded for Shortness of breath / Wheezing use with spacer chamber amLODIPine (amLODIPine 5 mg oral tablet) 5 mg, Oral, once a day aspirin (aspirin 81 mg oral delayed release capsule) See Instructions 1 CAPSULE DAILY bisacodyl (bisacodyl 5 mg oral delayed release tablet) See Instructions take all four tabs with 8 ozof fluid as instructed by colonoscopy prep instructions calcium-vitamin D (Calcium 600+D) See Instructions 1 TABLET DAILY EPINEPHrine (EpiPen 2-Reg 0.3 mg injectable kit) Intramuscular, once PRN folic acid (folic acid 0.4 mg oral tablet) 400 mcg, Oral, once a day New Routed to [facility] [address] [place] [address] gabapentin (gabapentin 300 mg oral capsule) 1 cap, Oral, three times a day New Routed to [id number] [id number] ibuprofen (ibuprofen 200 mg oral capsule) See Instructions 2 tabs and limits to 4 daily levothyroxine (levothyroxine 88 mcg (0.088 mg) oral tablet) 88 mcg, Oral, once a day loratadine (loratadine 10 mg oral tablet) 1 Tablet(s), Oral, once a day multivitamin with minerals (Multi-Day with Calcium and Extra Iron) See Instructions None Entered nicotine (Nicoderm 21 mg/24 hr transdermal film, extended release) 1 patch(es), once a day omeprazole (omeprazole) 20 mg, Oral, once a day polyethylene glycol 3350 (polyethylene glycol 3350 oral powder for reconstitution) See Instructions Mix and use as directed for colonoscopy prep. thiamine (thiamine 100 mg oral tablet) 1 Tablet(s), Oral, once a day New Routed to [address] [address] Stop Taking the Following Medications: zolpidem (Ambien CR 6.25 mg oral tablet, extended release) Medication list as of 03-20-16 16:31 Attention: If you have any medications at home that are not on this list, DO NOT take them until youcontact your provider for clarification. Give a copy of your medication list to your primary care provider. Update your medication list any time medications or doses are changed and carry your medication list at all times in case of emergency. Electronically Signed By: FAYE YADAV MD Signed On:20-MAR-2016 16:31:06 Your Allergies & Intolerances Substance Reaction Symptoms Category Comments Latex Drug LATEX - rash, hives Your Problem List Problem Status Onset Comments Unspecified Hypothyroidism Active 09/04/2001 02/20/14 Unspecified hypothyroidism Tobacco Use Disorder Active 09/04/2001 02/20/14 Tobacco use disorder Generalized Anxiety Disorder Active 12/15/2002 02/20/14 Generalized anxiety disorder Depressive Disorder, Not Elsewhere Classified Active 12/15/2002 02/20/14 Depressive disorder, not elsewhere classified Benign Essential Hypertension Active 12/15/2002 02/20/14 Essential hypertension, benign Carpal Tunnel Syndrome Active 02/09/2003 02/20/14 Carpal tunnel syndrome Cervicalgia Active 05/31/2003 02/20/14 Cervicalgia Displacement of Intervertebral Disc, Site Unspecified, without Myelopathy Active 05/31/2003 02/20/14Displacement of intervertebral disc, site unspecified, without myelopathy Headache Active 05/31/2003 02/20/14 Headache Complete Rupture of Rotator Cuff Active 02/18/2007 02/20/14 Complete rupture of rotator cuff Insomnia, Unspecified Active 09/19/2007 02/20/14 Insomnia, unspecified Disorder of Bone and Cartilage, Unspecified Active 09/19/2007 02/20/14 Disorder of bone and cartilage, unspecified Symptomatic Menopausal or Female Climacteric States Active 04/27/2008 02/20/14 Symptomatic menopausal or female climacteric states Your Upcoming Appointments Date Time Location Provider 04/10/2016 08:45 JHON Barrett MD, [facility] Attention: Contact your local Clinic if further appointment detail needed. Consider Using Patient Online Services Patient Online Services is a secure online and Mobile application that lets you: ?? View lab and test results ?? View portions of your medical record including clinical notes, immunizations and discharge summaries ?? Request an appointment or medication refill ?? Review your appointment schedule ?? Send secure messages to your care team Its easy to create an account if you dont have one. Go to [email or web address] and click on Create Your Account. Then, follow the directions to complete the online form. Youll be asked for your [facility] number which you can find at the top of this document. Your Goals/Additional instructions: Source: [facility] POWERCHART Document Id: [id number] Miscellaneous - Faye Yadav M.D. - 03/20/2016 4:31 PM CDT Ambulatory Discharge Medication List [address] [id number] Visit Information Name: UNDERDAHL, CHIP JACQUI [facility] Number: [id number] Visit Date: 03/20/2016 16:31:23 Attending Provider: FAYE YADAV MD Primary Care Provider: FAYE YADAV MD CHIP MAI has been given the following list of medications: Your Medications It is important to take your medications as directed. Use a pill box or chart to help remind you to take your medications. Please let your doctor or nurse know if you have problems taking your medications. Medication/Strength How to Take Indications/Special Instructions/Comments/Notes for Patient Medication Changes/Routing albuterol (albuterol CFC free 90 mcg/inh inhalation aerosol) 2 puff(s), Inhalation, every 4 hours asneeded for Shortness of breath / Wheezing use with spacer chamber amLODIPine (amLODIPine 5 mg oral tablet) 5 mg, Oral, once a day aspirin (aspirin 81 mg oral delayed release capsule) See Instructions 1 CAPSULE DAILY bisacodyl (bisacodyl 5 mg oral delayed release tablet) See Instructions take all four tabs with 8 ozof fluid as instructed by colonoscopy prep instructions calcium-vitamin D (Calcium 600+D) See Instructions 1 TABLET DAILY EPINEPHrine (EpiPen 2-Reg 0.3 mg injectable kit) Intramuscular, once PRN folic acid (folic acid 0.4 mg oral tablet) 400 mcg, Oral, once a day New Routed to [place] [id number] [address] [address] gabapentin (gabapentin 300 mg oral capsule) 1 cap, Oral, three times a day New Routed to [facility] [place] [address] ibuprofen (ibuprofen 200 mg oral capsule) See Instructions 2 tabs and limits to 4 daily levothyroxine (levothyroxine 88 mcg (0.088 mg) oral tablet) 88 mcg, Oral, once a day loratadine (loratadine 10 mg oral tablet) 1 Tablet(s), Oral, once a day multivitamin with minerals (Multi-Day with Calcium and Extra Iron) See Instructions None Entered nicotine (Nicoderm 21 mg/24 hr transdermal film, extended release) 1 patch(es), once a day omeprazole (omeprazole) 20 mg, Oral, once a day polyethylene glycol 3350 (polyethylene glycol 3350 oral powder for reconstitution) See Instructions Mix and use as directed for colonoscopy prep. thiamine (thiamine 100 mg oral tablet) 1 Tablet(s), Oral, once a day New Routed to [address] [id number] Stop Taking the Following Medications: zolpidem (Ambien CR 6.25 mg oral tablet, extended release) Medication list as of 03-20-16 16:31 Attention: If you have any medications at home that are not on this list, DO NOT take them until youcontact your provider for clarification. Give a copy of your medication list to your primary care provider. Update your medication list any time medications or doses are changed and carry your medication list at all times in case of emergency. Electronically Signed By: FAYE YADAV MD Signed On:20-MAR-2016 16:31:06 Additional Information: Source: [facility] POWERCHART Document Id: [id number] Miscellaneous - Mami Saldaña, C.M.A. 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 Intake/History Entered On: 03/20/2016 10:17 CDT Performed On: 03/20/2016 10:16 CDT by MAMI SALDAÑA [facility] Intake Chief Complaint : hospital follow-up Temperature Core : 36.1 DegC(Converted to: 97.0 DegF) (LOW) Peripheral Pulse Rate : 77 /min Systolic Blood Pressure : 127 mmHg Diastolic Blood Pressure : 80 mmHg NIBP Mean : 96 mmHg Height : 160 cm(Converted to: 5 ft 3 inch(es), 63 inch(es)) Actual Weight : 60.0 kg(Converted to: 132 lb 4 oz) Dosing Weight Clinic : 60 kg Clinic BSA : 1.63 Body Mass Index : 23.44 kg/m2 MAMI SALDAÑA CMA - 03/20/2016 10:16 CDT General Info Information Given By : Patient Languages : Turkmen Is Patient Female and 13-50 no hysterectomy : No MAMI SALDAÑA CMA - 03/20/2016 10:16 CDT Subjective Pain Symptoms : No MAMI SALDAÑA [facility] - 03/20/2016 10:16 CDT Dependent Habits Exposure to Tobacco Smoke : Patient smokes, Other: .5-1 PPD Smoking Status : Former smoker Tobacco 2A : Yes Tobacco Use/Currently Using : No Tobacco Use/Last 30 Days : Yes Tobacco Use/Last 12 months : Yes Type : Cigarettes: Less than 20 per day Tobacco Use/Advised to Quit : Yes MAMI SALDAÑA [facility] - 03/20/2016 10:16 CDT Caffeine Use Grid Caffeine Use : Current Type : Coffee Frequency : Daily Amount : 3-4 cups MAMI SALDAÑA [facility] - 03/20/2016 10:16 CDT Source: [employer] Document Id: [id number] documented in this encounter Plan of Treatment Upcoming Encounters Date Type Specialty Care Team Description 08/30/2022 Diagnostic Neurology Karin Ramachandran M.D., M[facility] [address] [phone] (Howie dean) 10/10/2022 Office Visit Neurology Karin Ramachandran M.D., M.P.H[facility] [address] [place] [phone] (Howie dean) documented as of this encounter Procedures Procedure Name Priority Date/Time Associated Diagnosis Comme nts BASIC METABOLIC Routine 03/20/2016 11:05 AM Resul ts for this PANEL, S/P CDT procedure are i n the results section. documented in this encounter Results (ABNORMAL) BMP (Basic Metabolic Panel) (03/20/2016 11:05 AM CDT) Analysis Performed At Patho logist Time Signature CO2 Total 28 22 - 29 POWERCHART MMOLL BUN (Blood Urea 6 6 - 21 POWERCHART Nitrogen), S MGDL Creatinine 0.57 (L) 0.60 - POWERCHART 1.10 MGDL Calcium, Total, 10.2 8.6 - 10.3 POWERCHART S MGDL Glucose 88 70 - 139 POWERCHART MGDL eGFR >60 >=60 POWERCHART Black/ [id number] Swazi HXeGFR (MDRD) >60 >=60 POWERCHART [id number] Comment: Results are in mL/min/1.73m CKD Stage I: ? GFR > 90 CKD Stage II: ?GFR 60 to 89 CKD Stage III: ? GFR 30 to 59 CKD Stage IV: ? GFR 15 to 29 CKD Stage V: ?GFR < 15 or Dialysi s Sodium, S 140 135 - 145 MMOLL POWERCHART Potassium, S 5.3 (H) 3.6 - 5.2 [facility] POWERCHART Chloride, S 98 98 - 107 [facility] POWERCHART Specimen (Source) Anatomical Collection Method Collection Time Re ceived Time Location / / Volume Laterality Blood 03/20/2016 11:05 AM CDT Faye Yadav M.D. LAB BLOOD ADD-ON Performing Organization Address City/State/ZIP Code Phon e Number POWERCHART documented in this encounter Visit Diagnoses Not on filedocumented in this encounter Additional Health Concerns Assessment Noted Time PHQ-9 Depression Total Score: 10 10/17/2015 9:46 AM CS T documented as of this encounter
--- OUTSIDE RECORDS SUMMARY | 2022-08-29 10:31 | XMS_ITS | Encounter Summary ---
:1960 Author Organization [facility] Address [address] [place] [address] Care Team Providers Name Role Phone Faye Liao M.D. Primary Care Provider Reason for Visit Reason Onset Date Comments Med Refill 12/03/2017 Encounter Details Date Type Department Care Team Description 12/03/2017 Clinical Communication Department of Faye Liao, Med Refill [facility] Internal [facility] in [place] [address] [address] [address] [place], [place] [phone] (Work) [phone] Social History Tobacco Use Types Packs/Day Years Used Date Smoking Tobacco: Every Day Sex Assigned at Date Recorded Female 07/10/2022 7:32 AM CDT documented as of this encounter Miscellaneous Notes Telephone Encounter - Kesha Galvan L.PEvansNEvans - 12/10/2017 4:44 PM VENEER SAMPLE MAKER Request went through for gabapentin. Was not able to get a hold of patient to ask if she needed other medications. ER SAMPLE MAKER Telephone Encounter - Kesha Galvan L.PEvansN. - 12/03/2017 3:20 PM VENEER SAMPLE MAKER Call cannot be completed as dialed message comes on when this number is dialed. ER SAMPLE MAKER Telephone Encounter - Adwoa Alexander - 12/03/2017 8:32 AM CST Patient is calling to let Dr. Liao know that her will be in [place] for a couple of weeks for a bone marrow transplant. Patient needs refills of her Gabapentin, levothyroxine, and her blood pressure medication. Patient is very upset and can't think so she asked if all her medications can be reviewed and fill which ever she needs refills on. Please send to [facility] in [place]. Patient is requesting this be done today. I told patient that I could not guarantee that we will be able to get this filled today as we usually need up to 3 days to process a refill request. Please call patient with any questions and with status of refill. ER SAMPLE MAKER documented in this encounter Plan of Treatment Upcoming Encounters Date Type Specialty Care Team Description 08/30/2022 Diagnostic Neurology Karin Ramachandran M.D., M[facility] [address] [phone] (Wo rk) 10/10/2022 Office Visit Neurology Karin Ramachandran M.D., M[facility] [address] [phone] (Wo rk) documented as of this encounter Visit Diagnoses Not on filedocumented in this encounter Additional Health Concerns Assessment Noted Time PHQ-9 Depression Total Score: 6 03/20/2017 1:11 PM CDT documented as of this encounter Care Teams Philosophy Instructor Relationship Specialty Start Date End Date Faye Liao M.D. PCP - General 05/09/17 01/14/20 [address] [phone] documented as of this encounter
--- OUTSIDE RECORDS SUMMARY | 2022-08-29 10:31 | XMS_ITS | Encounter Summary ---
:1960 Author Organization [facility] Address [address] [place] [address] Care Team Providers Name Role Phone Faye Liao M.D. Primary Care Provider Reason for Referral Outpatient (Routine) - Closed Specialty Diagnoses / Procedures Referred By Contact Refer red To Contact Faye Liao M. D. [facility] [address] [place] [address] Referral ID Status Reason Start Date Expiration Date Visits Requ ested Visits Authorized [id number] Closed 09/02/2019 09/01/2020 1 1 Encounter Details Date Type Department Care Team Description 09/02/2019 Orders Only [facility] PCP [facility] Faye Liao, Screening Mammogram Breast Cancer; M.DEvans Monitoring For Therapeutic Drug Therapy [address] [place] [address] Social History Tobacco Use Types Packs/Day Years Used Date Smoking Tobacco: Heavy Smoker Sex Assigned at Date Recorded Female 07/10/2022 7:32 AM CDT documented as of this encounter Plan of Treatment Upcoming Encounters Date Type Specialty Care Team Description 08/30/2022 Diagnostic Neurology Karin Ramachandran M.D., M[facility]P.H[facility] [address] [place], [place] [phone] (Wo rk) 10/10/2022 Office Visit Neurology Karin Ramachandran M.D., M.P.H[facility] [address] [place], [place] [phone] (Wo rk) Scheduled Orders Name Type Priority Associated Diagnoses Order S chedule BI Breast Screening Imaging RAD - Routine (most Screening Mamm ogram Expected: Bilateral with inpatients and all Breast Cancer 2018, Tomosynthesis outpatients) Expires: 09/02/2022 S-TSH Lab Routine Monitoring For Expected: (Thyroid-Stimulating Therapeutic Drug , Hormone - Sensitive) Therapy Expires : 09/02/2022 Scheduled Referrals Name Type Priority Associated Diagnoses Order S chedule Primary Care nurse Outpatient Referral Routine Ex pected: visit (clinic) - 09/16/2019, [facility]; Expires: BP check 09/02/2022 documented as of this encounter Visit Diagnoses Diagnosis Screening Mammogram Breast Cancer Monitoring For Therapeutic Drug Therapy documented in this encounter Additional Health Concerns Assessment Noted Time PHQ-9 Depression Total Score: 6 03/20/2017 1:11 PM CDT documented as of this encounter Care Teams Hogshead Hand Relationship Specialty Start Date End Date Faye Liao M.D. PCP - General 05/09/17 01/14/20 [address] [place] [address] documented as of this encounter
--- OUTSIDE RECORDS SUMMARY | 2022-08-29 10:31 | XMS_ITS | Encounter Summary ---
:1960 Author Organization [facility] Address [address] [place] [address] Care Team Providers Name Role Phone Faye Liao M.D. Primary Care Provider Reason for Referral Outpatient (Routine) - Closed Specialty Diagnoses / Procedures Referred By Contact Refer red To Contact Diagnoses Alcohol Mild Use Disorder (Abuse) Uncomplicated Faye Liao M.D. [address] [place] [address] Referral ID Status Reason Start Date Expiration Date Visits Requ ested Visits Authorized [id number] Closed 2017 03/04/2018 1 1 Encounter Details Date Type Department Care Team Description 2017 Orders Only Department of Faye Liao, Alcohol A [facility] Internal Milly Uncomplicated Medicine in [address] [address] [place], [place] [phone] (Work) [phone] Social History Tobacco Use Types Packs/Day Years Used Date Smoking Tobacco: Every Day Sex Assigned at Date Recorded Female 07/10/2022 7:32 AM CDT documented as of this encounter Plan of Treatment Upcoming Encounters Date Type Specialty Care Team Description 08/30/2022 Diagnostic Neurology Karin Ramachandran M.D., M.P.H[facility] [address] [place], [place] [phone] (Wo rk) 10/10/2022 Office Visit Neurology Karin Ramachandran M.D., M.P.H. [address] [phone] (Wo rk) Scheduled Referrals Name Type Priority Associated Diagnoses Order S [facility] Internal Outpatient Referral Routine Alcohol Abuse E xpected: Medicine office Uncomplicated 02/17/2018 visit (clinic) (Approximate) , Expires: 02/21/2023 documented as of this encounter Visit Diagnoses Diagnosis Alcohol Mild Use Disorder (Abuse) Uncomp licated documented in this encounter Additional Health Concerns Assessment Noted Time PHQ-9 Depression Total Score: 6 03/20/2017 1:11 PM CDT documented as of this encounter Care Teams Pigment Pusher Relationship Specialty Start Date End Date Faye Liao M.D. PCP - General 05/09/17 01/14/20 [place] [address] documented as of this encounter
--- OUTSIDE RECORDS SUMMARY | 2022-08-29 10:31 | XMS_ITS | Encounter Summary ---
:1960 Author Organization [facility] Address [address] [place] [address] Care Team Providers Name Role Phone Faye Liao M.D. Primary Care Provider Encounter Details Date Type Department Care Team Description 06/02/2018 Orders Only Department of Faye Liao Hypothyro idism (Primary [facility] Internal M.D. Dx) Medicine in [place] [address] [address] [place], [place] [phone] (Work) [phone] Social History Tobacco Use Types Packs/Day Years Used Date Smoking Tobacco: Heavy Smoker Sex Assigned at Date Recorded Female 07/10/2022 7:32 AM CDT documented as of this encounter Plan of Treatment Upcoming Encounters Date Type Specialty Care Team Description 08/30/2022 Diagnostic Neurology Karin Ramachandran M.D., M[facility]P.H[facility] [address] [phone] (Howie rk) 10/10/2022 Office Visit Neurology Karin Ramachandran M.D., M.P.H. [address] [place] [phone] (Howie dean) documented as of this encounter Visit Diagnoses Diagnosis Hypothyroidism - Primary documented in this encounter Additional Health Concerns Assessment Noted Time PHQ-9 Depression Total Score: 6 03/20/2017 1:11 PM CDT documented as of this encounter Care Teams Yarn Comber Relationship Specialty Start Date End Date Faye Liao M.D. PCP - General 05/09/17 01/14/20 [address] [place] [address] documented as of this encounter
--- OUTSIDE RECORDS SUMMARY | 2022-08-29 10:31 | XMS_ITS | Encounter Summary ---
:1960 Author Organization [facility] Address [address] [place] [address] Care Team Providers Name Role Phone Elsewhere, Pcp Primary Care Provider Unavailable Encounter Details Date Type Department Care Team Description 10/29/2020 Clinical Communication Central Appointment Line, Covid Help Office in [place], [place] [address] [place] [address] Social History Tobacco Use Types Packs/Day Years Used Date Smoking Tobacco: Heavy Smoker Sex Assigned at Date Recorded Female 07/10/2022 7:32 AM CDT documented as of this encounter Miscellaneous Notes Telephone Encounter - Joshua Israel - 10/29/2020 10:51 AM CST COVID-19 Nurse Line Screening ASSESSMENT COVID 19 Screening Have you had close contact with a person who has a LABORATORY CONFIRMED case of COVID-19 in the past14 days?: No - Continue screening. Over the last 48 hours have you had any of the following symptoms that are not related to an existing condition?: No Request asymtompatic testing (Continue screening) Have you tested positive for COVID-19 in the last 90 days? : No (End Screening) PLAN Endpoint recommendation: Screening positive, testing indicated, advised to be swabbed for COVID-19, sent to [facility] located at [address] You must call [phone] for an appointment time. Testing hours are Daily 9 am to 7 pm. When you arrive at the testing site: Remain in your vehicle and check- in by phone using the same appointment line number. and Please avoid using public transportation per CDC recommendation. If you do not have personal transportation please self-quarantine until a personal transportation option is available. and Screening negative, testing indicated per request for public health , sent to [facility] located at [address] You must call [phone] for an appointment time. Testing hours are Daily 9 am to 7 pm. When you arrive at the testing site: Remain in your vehicle and check-in by phone using the same appointment line number. and Please avoid using public transportation per CDC recommendation. If you do not have personal transportatio n please self-quarantine until a personal transportation option is available. Care Points provided: STANDARD PRECAUTIONS FOR ALL PATIENTS: Wash hands often with soap and water for at least 20 seconds, especially after blowing your nose, coughing, sneezing, or having been in a public place. If soap and water aren't available, use a hand bank worker that contains at least 60% alcohol. Avoid close contact with anyone who may be exhibiting respiratory symptoms such as coughing and sneezing. Avoid touching your eyes, nose and mouth. Clean and disinfect frequently touched surfaces daily. Cover your mouth and nose with a cloth face cover when around others or in public. The cloth face cover is not a substitute for social distancing. Continue to keep about 6 feet between yourself andothers. Monitor for symptoms. Do not take your temperature within 30 minutes of exercise. If your test or screen is negative and new symptoms develop please contact your provider if it has been greaterthan 72 hours since you were tested. Educational Resource: https://www.cdc.gov/coronavirus/2019-ncov/ vrhjchc-eqmmtdq-mfwi/index.html Education: Not applicable Patient agreeable to plan of care: Yes The following references were used: [facility] novel coronavirus (COVID- 19) resources D WORKER documented in this encounter Plan of Treatment Upcoming Encounters Date Type Specialty Care Team Description 08/30/2022 Diagnostic Neurology Karin Ramachandran M.D., M.P.H[facility] [address] [place], [place] [phone] (Howie dean) 10/10/2022 Office Visit Neurology Karin Ramachandran M.D., M.P.H. [address], [place] [phone] (Wo rk) documented as of this encounter Visit Diagnoses Not on filedocumented in this encounter Additional Health Concerns Assessment Noted Time PHQ-9 Depression Total Score: 6 03/20/2017 1:11 PM CDT documented as of this encounter Care Teams Financial Intern Relationship 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
--- OUTSIDE RECORDS SUMMARY | 2022-08-29 10:31 | XMS_ITS | Encounter Summary ---
:1960 Author Organization [facility] Address [address] [place] [address] Care Team Providers Name Role Phone Elsewhere, Pcp Primary Care Provider Unavailable Reason for Visit Reason Comments Fall Rib Injury Encounter Details Date Type Department Care Team Description 04/28/2021 Emergency [facility] John Farley Fra cture Rib Multiple Emergency Department P.A.-C. Closed Initial Right [address] (Primary Dx) [place] [id number] [phone] (Wo rk) Social History Tobacco Use Types [...] Sign Reading Time Taken Comments Blood Pressure 151/91 04/28/2021 3:15 PM CDT Pulse 117 04/28/2021 3:15 PM CDT Temperature 37.2 ??C (99 ??F) 04/28/2021 12:50 PM CDT Respiratory Rate 20 04/28/2021 12:49 PM CDT Oxygen Saturation 93% 04/28/2021 3:15 PM CDT Inhaled Oxygen Concentration - - Weight 52.7 kg (116 lb 1.2 oz) 04/28/2021 12:44 PM CDT Height 159.6 cm (5' 2.84) 04/28/2021 12:44 PM CDT Body Mass Index 20.67 04/28/2021 12:44 PM CDT documented in this encounter Medications at [...] Instructions. syringe gabapentin Take 1 capsule (300 mg 270 capsule 3 12/03/2017 (for_NEURONTIN) 300 mg total) by mouth 3 capsule (three) times a day. levothyroxine Take 1 tablet (88 mcg 30 tablet 0 06/02/2018 (SYNTHROID, total) by mouth daily. LEVOTHROID) 88 mcg Needs lab before tablet further refills omeprazole Take 1 tablet by mouth 0 03/20/2017 (for_PriLOSEC) 20 mg daily as needed. capsule documented as of this encounter ED Notes Melvi Lopes R.N. - 04/28/2021 1:03 PM CDT Pt comes to ED after being seen at an urgent care in [place] for right sided rib pain that she thought would get better on its own but hasn't. Pt states she tripped over her puppy 3 weeks ago and hit her side/back on a stool. Pt states it hurts when she coughs. Melvi Lopes R.N. 04/28/21 1305 John Farley P.A.-C. - 04/28/2021 12:56 PM CDT Images from the original note were not included. CHIEF COMPLAINT/REASON FOR VISIT Fall and Rib Injury HISTORY OF PRESENT ILLNESS Patient is a very pleasant 60-year-old female who presents today with right- sided chest wall pain. Patient reports that she tripped over her puppy and fell on a rail approximately 3 weeks ago. She struck herself on the right side of her chest. Given her persistent pain she was evaluated in urgent carein [place] today was found to have multiple rib fractures and other scapular hematoma on exam. She was referred to the [facility] Emergency Department for further evaluation and treatment. Patient states that she continues to smoke cigarettes, carries no formal diagnosis of COPD however occasionally uses inhalers. She has had no recent infectious symptoms and denies fevers or chills abdominal pain or urinary symptoms. She complains of ongoing right-sided chest discomfort as well as pain in the back where she has noticed some swelling over her right scapula. REVIEW OF SYSTEMS Constitutional: Negative for chills and diaphoresis. HENT: Negative for congestion and trouble swallowing. Eyes: Negative for photophobia and visual disturbance. Respiratory: Positive for cough. Negative for shortness of breath. Cardiovascular: Positive for chest pain. Negative for palpitations. Gastrointestinal: Negative for abdominal pain and vomiting. Genitourinary: Negative for dysuria, flank pain and frequency. Musculoskeletal: Negative for joint swelling and myalgias. Skin: Negative for lesions and rash. Neurological: Negative for dizziness and headaches. Psychiatric/Behavioral: Negative for agitation and confusion. OBJECTIVE Initial Vitals Temperature Pulse Rate Heart Rate Resp Rate Blood Pressure SpO2 04/28/21 1250 04/28/21 1249 -- 04/28/21 1249 04/28/21 1249 04/28/21 1249 37.2 ??C (!) 117 20 (!) 147/98 97 % Pain Score -- PHYSICAL EXAMINATION Constitutional: Nursing note and vitals reviewed. No distress. HENT: Head: Atraumatic. Nose: No nasal discharge. Mouth/Throat: Oropharynx is clear and moist. Mucous membranes are moist. Eyes: Conjunctivae are normal. Pupils are equal, round, and reactive to light. Neck: Neck supple. No neck adenopathy. Cardiovascular: Normal rate and regular rhythm. Exam reveals no gallop and no friction rub. No murmur heard. Pulmonary/Chest: Effort normal. She has no wheezes. She has no rhonchi. She has no rales. Abdominal: Soft. exhibits no distension. There is no guarding. Musculoskeletal: General: No edema. Normal range of motion. Cervical back: Normal range of motion and neck supple. Comments: Patient with a hematoma on the right scapula. Tenderness to palpation of the right lateral chest wall. Neurological: Alert and oriented to person, place, and time. She is not disoriented. Skin: Skin is warm and dry. She is not diaphoretic. Psychiatric: She has a normal mood and affect. Behavior is normal. DIFFERENTIAL DIAGNOSIS Fracture, pneumothorax, hemothorax, flail segment, hematoma, among others MEDICAL DECISION MAKING Patient is a very pleasant 60-year-old female who presents today approximately 3 weeks after a nonsyncopal fall where she tripped over a puppy and fell striking her right lateral chest against a rail. She was seen in urgent care and an outside facility today was found to have multiple rib fractures. She was referred to the [facility] Emergency Department for further evaluation and treatment. On arrival patient is normotensive, mildly tachycardic with heart rates in the 1 teens and low 120s, she does not have an oxygen requirement in oxygen saturations on room air within normal limits. She does have a hematoma noted on the right scapula as well as tenderness to palpation of the right lateral chest wall. As initial workup will obtain screening labs to include a type and cross will obtain imaging to include CT abdomen and pelvis with T and L spine recons. We will proceed as indicated based on her course in the department and the results of their workup DIAGNOSTIC STUDIES LABORATORY RESULTS: Abnormal Labs Reviewed CBC WITH DIFFERENTIAL, B - Abnormal; Notable for the following components: Result Value Erythrocytes 3.72 (*) MCV 98.4 (*) All other components within normal limits BASIC METABOLIC PANEL, S/P - Abnormal; Notable for the following components: Potassium, P 3.4 (*) Sodium, P 131 (*) Chloride, P 93 (*) BUN, P 4 (*) Creatinine, P 0.38 (*) All other components within normal limits IMAGING STUDIES: CT Chest with IV Contrast Final Result 1. Multiple bilateral rib fractures of varying ages including some minimally/mildly displaced acute right-sided rib fractures. No pneumothorax. 2. No other acute or chronic findings in the chest, abdomen or pelvis. 3. Please see the separate dictation for the findings in the thoracic and lumbar spine. CT Abdomen Pelvis with IV Contrast Final Result 1. Multiple bilateral rib fractures of varying ages including some minimally/mildly displaced acute right-sided rib fractures. No pneumothorax. 2. No other acute or chronic findings in the chest, abdomen or pelvis. 3. Please see the separate dictation for the findings in the thoracic and lumbar spine. CT Thoracic and Lumbar Spine by Reconstruction Preliminary Result Multilevel thoracic and lumbar degenerative spondylotic changes. No vertebral body fracture detected. Levels of mild and mild to moderate canal stenosis, with effacement of the subarticular zones bilaterally at L5-S1, as described. Moderate to advanced left greater than right bony neural foraminal stenosis at L5-S1. DX Chest Portable 1 View Final Result Comparison with 05/01/2016. Acute displaced right posterior 5th, 6th, and 7th rib fractures and age indeterminate fracture of the right lateral 9th rib. Old left rib fractures. Postoperative changes involving the left shoulder. Normal heart size and pulmonary vasculature. No pneumothorax. ED Course as of Apr 28 1532 Fri Apr 28, [address] scan shows multiple rib fractures. Will discuss with Trauma surgery 1531 Patient seen by Trauma surgery. She is not interested in a rectus Spine a block and wishes to be discharged home. Trauma reports they are okay with discharge. Patient continues to rest comfortably. She is to follow up with primary care as well as return as needed for new worsening or concerning signs or symptoms. Final Diagnoses: as of Apr 28 1532 Fracture Rib Multiple Closed Initial Right John Farley P.A.-C. 04/28/21 1532 documented in this encounter Plan of Treatment Upcoming Encounters Date Type Specialty Care Team Description 08/30/2022 Diagnostic Neurology Karin Ramachandran M.D., M[facility] [address], [place] [phone] (Howie dean) 10/10/2022 Office Visit Neurology Karin Ramachandran M.D., M[facility]P.[facility] [address], [place] [phone] (Howie dean) documented as of this encounter Procedures Procedure Name Priority Date/Time Associated Comments Diagnosis CT THORACIC AND RAD - Emergent 04/28/2021 2:13 Results for LUMBAR SPINE BY (Fastest; for the PM CDT this pr ocedure RECONSTRUCTION most critically are in the ill patients) results section. CT ABDOMEN PELVIS RAD - Emergent 04/28/2021 2:13 Resul ts for WITH IV CONTRAST (Fastest; for the PM CDT this p rocedure most critically are in the ill patients) results section. CT CHEST WITH IV RAD - Emergent 04/28/2021 2:13 Result s for CONTRAST (Fastest; for the PM CDT this proce dure most critically are in the ill patients) results section. DX CHEST PORTABLE 1 RAD - Semiurgent 04/28/2021 1:19 R esults for VIEW (Fast; most ED PM CDT this procedur e patients; some are in the inpatients) results section. SARS CORONAVIRUS 2, STAT 04/28/2021 1:11 Resul ts for PCR RAPID, V PM CDT this procedure are in the results section. CBC WITH STAT 04/28/2021 1:03 Results for DIFFERENTIAL, B PM CDT this procedu re are in the results section. TYPE AND SCREEN STAT 04/28/2021 1:03 Results f or PM CDT this procedure are in the results section. BASIC METABOLIC STAT 04/28/2021 1:03 Results f or PANEL, S/P PM CDT this procedure are in the results section. documented in this encounter Results CT Thoracic and Lumbar Spine by Reconstruction (04/28/2021 2:13 PM CDT) Anatomical Region Laterality Modality Thoracic Spine, Neuroradiology RST LOS, N/A Computed Tomography, Computed Neuroradiology ARZ LOS, Neuroradiology T omography FLA LOS Specimen (Source) Anatomical Collection Method Collection Time Re ceived Time Location / / Volume Laterality 04/28/2021 2:19 PM CDT Impressions 04/28/2021 4:01 PM CDT Multilevel thoracic and lumbar degenerative spondylotic changes. No vertebral body fracture detected. Levels of mild and mild to moderate neda l stenosis, with effacement of the subarticular zones bilaterally at L5-S1, as described. Moderate to advanced left greater than r ight bony neural foraminal stenosis at L5-S1. Narrative 04/28/2021 4:01 PM CDT EXAM: CT THORACIC AND LUMBAR SPINE BY RECONSTRUCTION COMPARISON: Radiography of the chest letitia ed 05/01/2016. FINDINGS: THORACIC SPINE: Appropriate thoracic kyp hosis. No significant spondylolisthesis. Minor levoconvex curvature of the thorac ic spine. No thoracic vertebral body fracture detected. Minor multilevel disc height loss. Minor multilevel adjacent endplate Schmorl's node formation. Thoracic intervertebral disc levels demo nstrate minor scattered disc bulges minimally indenting the thecal sac. No h igh-grade thoracic spinal canal stenosis or cord compression. Multilevel bilatera l facet degenerative change without high-grade thoracic bony neural foramina l stenosis. LUMBAR SPINE: Appropriate lumbar lordosi s. Grade 2 anterolisthesis L5 on S1 with bilateral L5 pars defects. No lumbar bhumika tebral body fracture. Advanced disc height loss at L5-S1 with adjacent endpl ate degenerative osteochondrotic change. Advanced degenerative changes involving the bilateral sacroiliac joints. L1-L2: ??Minor bulge. Minor endplate ost eophytic spurring. No significant canal or neural foraminal stenosis. L2-L3: ??Disc bulge. Shallow superimpose d left foraminal to extraforaminal disc protrusion. Bilateral facet degenerative changes. L3-L4: ??Disc bulge. Bilateral facet deg enerative changes. Minor endplate osteophytic spurring. No significant can al or neural foraminal stenosis. L4-L5: ??Disc bulge with superimposed ce ntral disc extrusion. Indentation of the thecal sac. Moderate bilateral neural fo raminal stenosis. Mild canal stenosis. L5-S1: Spondylolisthesis. Mild to modera te canal stenosis with effacement of the subarticular zones, possibly with result ant irritation of the traversing intrathecal bilateral S1 nerve roots. Mo derate to advanced left greater than right bony neural foraminal stenosis. CT chest, abdomen, and pelvis reported s eparately. Procedure Note Quan Carpio M.D. - 04/28/2021Form atting of this note might be different from the original. EXAM: CT THORACIC AND LUMBAR SPINE BY RE CONSTRUCTION COMPARISON: Radiography of the chest letitia ed 05/01/2016. FINDINGS: THORACIC SPINE: Appropriate thoracic kyp hosis. No significant spondylolisthesis. Minor levoconvex curvature of the thorac ic spine. No thoracic vertebral body fracture detected. Minor multilevel disc height loss. Minor multilevel adjacent endplate Schmorl's node formation. Thoracic intervertebral disc levels demo nstrate minor scattered disc bulges minimally indenting the thecal sac. No h igh-grade thoracic spinal canal stenosis or cord compression. Multilevel bilatera l facet degenerative change without high-grade thoracic bony neural foramina l stenosis. LUMBAR SPINE: Appropriate lumbar lordosi s. Grade 2 anterolisthesis L5 on S1 with bilateral L5 pars defects. No lumbar bhumika tebral body fracture. Advanced disc height loss at L5-S1 with adjacent endpl ate degenerative osteochondrotic change. Advanced degenerative changes involving the bilateral sacroiliac joints. L1-L2: Minor bulge. Minor endplate osteo phytic spurring. No significant canal or neural foraminal stenosis. L2-L3: Disc bulge. Shallow superimposed left foraminal to extraforaminal disc protrusion. Bilateral facet degenerative changes. L3-L4: Disc bulge. Bilateral facet degen erative changes. Minor endplate osteophytic spurring. No significant can al or neural foraminal stenosis. L4-L5: Disc bulge with superimposed cent ral disc extrusion. Indentation of the thecal sac. Moderate bilateral neural fo raminal stenosis. Mild canal stenosis. L5-S1: Spondylolisthesis. Mild to modera te canal stenosis with effacement of the subarticular zones, possibly with result ant irritation of the traversing intrathecal bilateral S1 nerve roots. Mo derate to advanced left greater than right bony neural foraminal stenosis. CT chest, abdomen, and pelvis reported s eparately. IMPRESSION: Multilevel thoracic and lumbar degenerat lyly spondylotic changes. No vertebral body fracture detected. Levels of mild and mild to moderate neda l stenosis, with effacement of the subarticular zones bilaterally at L5-S1, as described. Moderate to advanced left greater than r ight bony neural foraminal stenosis at L5-S1. John MILAN CT PROCEDURES CT Abdomen Pelvis with IV Contrast (04/28/2021 2:13 PM CDT) Anatomical Region Laterality Modality Abdomen, Pelvis, Abdominal RST LOS, N/A Comp uted Tomography, Computed Abdominal ARZ LOS, Abdominal FLA LOS Adam ography Specimen (Source) Anatomical Collection Method Collection Time Re ceived Time Location / / Volume Laterality 04/28/2021 1:59 PM CDT Impressions 04/28/2021 2:25 PM CDT 1. Multiple bilateral rib fractures of varying ages including some minimally/mildly displaced acute right-s ided rib fractures. No pneumothorax. 2. No other acute or chronic findings in the chest, abdomen or pelvis. 3. Please see the separate dictation for the findings in the thoracic and lumbar spine. Narrative 04/28/2021 2:25 PM CDT EXAM: CT CHEST WITH IV CONTRAST, CT ABDOMEN PELVIS WITH IV CONTRAST COMPARISON: Chest x-ray 04/28/2021. Ches t CT 03/27/2016. FINDINGS: CHEST: Mildly displaced right anterior 4 th rib fracture, mild to minimally displaced posterior right 5th through 11 th rib fractures. Healing, subacute anterior left 4th and 5th rib fractures, anterolateral bilateral 9th rib fractures, and posterolateral left 11th rib fracture. Old, healed anterior right 6th rib, and anterior left 3rd and 4th r ib fractures. Old healed/healing posterior left 9th through 11th rib frac tures. Minimal dependent atelectasis. Mild pleural thickening adjacent the pos terior right rib fractures. Otherwise, no acute traumatic findings i n the chest. No pneumothorax, pneumomediastinum, or mediastinal hemato ma. No pleural or pericardial effusions. No sternal or scapula fractures. No trau matic aortic injury. Normal great vessel branching pattern. ??Postoperative banerjee es left shoulder. ABDOMEN/PELVIS: ??No acute traumatic inj ury in the abdomen or pelvis. No solid organ injury. No free intraperitoneal ai r or hemoperitoneum. No pelvic fracture. Duplicated left collecting system with d uplicated ureters to at least the level just above the UVJ. Non-masslike geograp hic area of lower attenuation in the inferior right hepatic lobe (series 3 im age 87) and adjacent the falciform ligament which likely represent focal fa tty infiltration of the liver. This does not have the typical appearance of the l aceration or hematoma. Arterial calcifications. Please see the separate dictation for th e findings in the thoracic and lumbar spine. Procedure Note Robby Hernandez M.D. - 04/28/2021Formatt ing of this note might be different from the original. EXAM: CT CHEST WITH IV CONTRAST, CT ABDO MEN PELVIS WITH IV CONTRAST COMPARISON: Chest x-ray 04/28/2021. Ches t CT 03/27/2016. FINDINGS: CHEST: Mildly displaced right anterior 4 th rib fracture, mild to minimally displaced posterior right 5th through 11 th rib fractures. Healing, subacute anterior left 4th and 5th rib fractures, anterolateral bilateral 9th rib fractures, and posterolateral left 11th rib fracture. Old, healed anterior right 6th rib, and anterior left 3rd and 4th r ib fractures. Old healed/healing posterior left 9th through 11th rib frac tures. Minimal dependent atelectasis. Mild pleural thickening adjacent the pos terior right rib fractures. Otherwise, no acute traumatic findings i n the chest. No pneumothorax, pneumomediastinum, or mediastinal hemato ma. No pleural or pericardial effusions. No sternal or scapula fractures. No trau matic aortic injury. Normal great vessel branching pattern. Postoperative changes left shoulder. ABDOMEN/PELVIS: No acute traumatic injur y in the abdomen or pelvis. No solid organ injury. No free intraperitoneal ai r or hemoperitoneum. No pelvic fracture. Duplicated left collecting system with d uplicated ureters to at least the level just above the UVJ. Non-masslike geograp hic area of lower attenuation in the inferior right hepatic lobe (series 3 im age 87) and adjacent the falciform ligament which likely represent focal fa tty infiltration of the liver. This does not have the typical appearance of the l aceration or hematoma. Arterial calcifications. Please see the separate dictation for th e findings in the thoracic and lumbar spine. IMPRESSION: 1. Multiple bilateral rib fractures of v arying ages including some minimally/mildly displaced acute right-s ided rib fractures. No pneumothorax. 2. No other acute or chronic findings in the chest, abdomen or pelvis. 3. Please see the separate dictation for the findings in the thoracic and lumbar spine. John Farley P.A.-C. [facility] [place] Chest with IV Contrast (04/28/2021 2:13 PM CDT) Anatomical Region Laterality Modality Chest, Thoracic RST LOS, Thoracic ARZ N/A Co mputed Tomography, Computed LOS, Thoracic ARZ LOS, Thoracic FLA Davion graphy LOS Specimen (Source) Anatomical Collection Method Collection Time Re ceived Time Location / / Volume Laterality 04/28/2021 1:59 PM CDT Impressions 04/28/2021 2:25 PM CDT 1. Multiple bilateral rib fractures of varying ages including some minimally/mildly displaced acute right-s ided rib fractures. No pneumothorax. 2. No other acute or chronic findings in the chest, abdomen or pelvis. 3. Please see the separate dictation for the findings in the thoracic and lumbar spine. Narrative 04/28/2021 2:25 PM CDT EXAM: CT CHEST WITH IV CONTRAST, CT ABDOMEN PELVIS WITH IV CONTRAST COMPARISON: Chest x-ray 04/28/2021. Ches t CT 03/27/2016. FINDINGS: CHEST: Mildly displaced right anterior 4 th rib fracture, mild to minimally displaced posterior right 5th through 11 th rib fractures. Healing, subacute anterior left 4th and 5th rib fractures, anterolateral bilateral 9th rib fractures, and posterolateral left 11th rib fracture. Old, healed anterior right 6th rib, and anterior left 3rd and 4th r ib fractures. Old healed/healing posterior left 9th through 11th rib frac tures. Minimal dependent atelectasis. Mild pleural thickening adjacent the pos terior right rib fractures. Otherwise, no acute traumatic findings i n the chest. No pneumothorax, pneumomediastinum, or mediastinal hemato ma. No pleural or pericardial effusions. No sternal or scapula fractures. No trau matic aortic injury. Normal great vessel branching pattern. ??Postoperative banerjee es left shoulder. ABDOMEN/PELVIS: ??No acute traumatic inj ury in the abdomen or pelvis. No solid organ injury. No free intraperitoneal ai r or hemoperitoneum. No pelvic fracture. Duplicated left collecting system with d uplicated ureters to at least the level just above the UVJ. Non-masslike geograp hic area of lower attenuation in the inferior right hepatic lobe (series 3 im age 87) and adjacent the falciform ligament which likely represent focal fa tty infiltration of the liver. This does not have the typical appearance of the l aceration or hematoma. Arterial calcifications. Please see the separate dictation for th e findings in the thoracic and lumbar spine. Procedure Note Robby Hernandez M.D. - 04/28/2021Formatt ing of this note might be different from the original. EXAM: CT CHEST WITH IV CONTRAST, CT ABDO MEN PELVIS WITH IV CONTRAST COMPARISON: Chest x-ray 04/28/2021. Ches t CT 03/27/2016. FINDINGS: CHEST: Mildly displaced right anterior 4 th rib fracture, mild to minimally displaced posterior right 5th through 11 th rib fractures. Healing, subacute anterior left 4th and 5th rib fractures, anterolateral bilateral 9th rib fractures, and posterolateral left 11th rib fracture. Old, healed anterior right 6th rib, and anterior left 3rd and 4th r ib fractures. Old healed/healing posterior left 9th through 11th rib frac tures. Minimal dependent atelectasis. Mild pleural thickening adjacent the pos terior right rib fractures. Otherwise, no acute traumatic findings i n the chest. No pneumothorax, pneumomediastinum, or mediastinal hemato ma. No pleural or pericardial effusions. No sternal or scapula fractures. No trau matic aortic injury. Normal great vessel branching pattern. Postoperative changes left shoulder. ABDOMEN/PELVIS: No acute traumatic injur y in the abdomen or pelvis. No solid organ injury. No free intraperitoneal ai r or hemoperitoneum. No pelvic fracture. Duplicated left collecting system with d uplicated ureters to at least the level just above the UVJ. Non-masslike geograp hic area of lower attenuation in the inferior right hepatic lobe (series 3 im age 87) and adjacent the falciform ligament which likely represent focal fa tty infiltration of the liver. This does not have the typical appearance of the l aceration or hematoma. Arterial calcifications. Please see the separate dictation for th e findings in the thoracic and lumbar spine. IMPRESSION: 1. Multiple bilateral rib fractures of v arying ages including some minimally/mildly displaced acute right-s ided rib fractures. No pneumothorax. 2. No other acute or chronic findings in the chest, abdomen or pelvis. 3. Please see the separate dictation for the findings in the thoracic and lumbar spine. John Farley P.A.-C. [facility] [place] Chest Portable 1 View (04/28/2021 1:19 PM CDT) Anatomical Region Laterality Modality Chest, Thoracic RST LOS, Thoracic ARZ LOS, Thoracic N/A Digital Radiography FLA LOS Specimen (Source) Anatomical Collection Method Collection Time Re ceived Time Location / / Volume Laterality 04/28/2021 1:22 PM CDT Impressions 04/28/2021 1:26 PM CDT Comparison with 05/01/2016. Acute displaced right posterior 5th, 6th, and 7th rib fractures and age indet erminate fracture of the right lateral 9th rib. Old left rib fractures. Postope rative changes involving the left shoulder. Normal heart size and pulmonar y vasculature. No pneumothorax. Narrative 04/28/2021 1:26 PM CDT EXAM: ??DX CHEST PORTABLE 1 VIEW Procedure Note Ravi Onofre M.D. - 04/28/2021Formatt ing of this note might be different from the original. EXAM: DX CHEST PORTABLE 1 VIEW IMPRESSION: Comparison with 05/01/2016. Acute displa ronny right posterior 5th, 6th, and 7th rib fractures and age indet erminate fracture of the right lateral 9th rib. Old left rib fractures. Postope rative changes involving the left shoulder. Normal heart size and pulmonar y vasculature. No pneumothorax. John Farley P.A.-C. IMG DIAGNOSTIC IMAGING PROCE DURES SARS Coronavirus 2, PCR Rapid, V Symptomatic (04/28/2021 1:11 PM CDT) [facility] Method Time Signature SARS CoV-2, Undetected Undetected 04/28/2021 [facility] PCR, Rapid, V 1:38 PM CDT Comment: ----ADDITIONAL INFORMATION---- This RT-PCR test was performed using the Won SARS-CoV-2 and Influenza A/B Reagent assay from [employer], which has received Emergency Use Authori zation(EUA) by the U.S. Food and Drug Administration . Fact sheets for this Emergency Use Autho rization (EUA) assay can be found at the following link s: For Healthcare Providers: https://www.fda.gov/media/130728/downloa d For Patients: https://www.fda.gov/media/333379/downloa d SARS Coronavirus 2, Source, Rapid Swab, Nasopharynx 04/28/2021 1:11 PM CDT [facility] Specimen Anatomical Collection Method Collection Time Receive d Time (Source) Location / / Volume Laterality Varies 04/28/2021 1:11 PM 1:11 (Nasopharynx) CDT PM CDT John Farley P.A.-C. LAB MICROBIOLOGY - GENERAL O RDERABLES Performing Organization Address City/State/ZIP Code Phon e Number [facility] - [facility] [address] [place], [place] [address] [place] [address] [facility] [address] Type and Screen (with reflex Antibody ID) (04/28/2021 1:03 PM CDT) Patholo gist Method Time Signature ABORh O Pos Not 04/28/2021 STRM applicable 1:33 PM CDT Antibody Negative Negative 04/28/2021 STRM Screen 1:46 PM CDT Type & Screen 05/01/2021 04/28/2021 STRM Expiration 23:59 1:33 PM CDT Testing [place] DEFAULT 04/28/2021 STRM Location 1:09 PM CDT Specimen Anatomical Collection Method Collection Time Receive d Time (Source) Location / / Volume Laterality Blood (Blood, 04/28/2021 1:03 PM 04/28/20 1:09 Venous) CDT PM CDT John Farley P.A.-C. LAB BLOOD BANK TEST ORDERABL ES Performing Organization Address City/State/ZIP Code Phon e Number [facility] - [address] [place] [phone] [facility] [place] [address] [address] (ABNORMAL) Basic Metabolic Panel (04/28/2021 1:03 PM CDT) Analysis Performed At Patho logist Time Signature Potassium, P 3.4 (L) 3.6 - 5.2 04/28/2021 [facility] mmol/L 1:24 PM CDT Sodium, P 131 (L) 135 - 145 04/28/2021 [facility] mmol/L 1:24 PM CDT Chloride, P 93 (L) 98 - 107 04/28/2021 [facility] mmol/L 1:24 PM CDT Bicarbonate, P 23 22 - 29 04/28/2021 [facility] mmol/L 1:24 PM CDT Anion Gap, P 15 7 - 15 04/28/2021 [facility] 1:24 PM CDT BUN (Blood Urea 4 (L) 6 - 21 04/28/2021 [facility] Nitrogen), P mg/dL 1:30 PM CDT Creatinine 0.38 (L) 0.59 - 04/28/2021 [facility] 1.04 mg/dL 1:24 PM CDT eGFR-Black/Afri >90 >=60 04/28/2021 [facility] can [place] mL/min/BSA 1:24 PM CDT Comment: ----ADDITIONAL INFORMATION---- Estimated GFR calculated using the 2009 CKD_EPI creatinine equation. eGFR Non-Black/ >90 >=60 mL/min/BSA 04/28/2021 1:24 PM CDT [facility] Comment: ----ADDITIONAL INFORMATION---- Estimated GFR calculated using the 2009 CKD_EPI creatinine equation. Calcium, Total, P 9.0 8.8 - 10.2 mg/dL 04/28/2021 1:24 PM CDT [facility] Glucose, P 107 70 - 140 mg/dL 04/28/2021 1:24 PM CDT S [facility]MA Specimen Anatomical Collection Method Collection Time Receive d Time (Source) Location / / Volume Laterality Blood (Blood, 04/28/2021 1:03 PM 04/28/20 1:07 Venous) CDT PM CDT John Farley P.A.-C. LAB BLOOD ADD-ON Performing Organization Address City/State/ZIP Code Phon e Number [facility] - [facility] [address] [place], [place] [address] [place] [address] [facility] [address] (ABNORMAL) CBC with Differential, Blood (04/28/2021 1:03 PM CDT) [facility] Method Time Signature Hemoglobin 12.8 11.6 - 04/28/2021 [facility] 15.0 g/dL 1:11 PM CDT Hematocrit 36.6 35.5 - 04/28/2021 [facility] 44.9 % 1:11 PM CDT Erythrocytes 3.72 (L) 3.92 - 04/28/2021 [facility] 5.13 1:11 PM CDT x10(12)/L MCV 98.4 (H) 78.2 - 04/28/2021 [facility] 97.9 fL 1:11 PM CDT RBC Distrib Width 12.5 12.2 - 04/28/2021 [facility] 16.1 % 1:11 PM CDT Platelet Count 220 157 - 371 04/28/2021 [facility] x10(9)/L 1:11 PM CDT Leukocytes 5.1 3.4 - 9.6 04/28/2021 [facility] x10(9)/L 1:11 PM CDT Neutrophils 2.78 1.56 - 04/28/2021 [facility] 6.45 1:11 PM CDT x10(9)/L Lymphocytes 1.40 0.95 - 04/28/2021 [facility] 3.07 1:11 PM CDT x10(9)/L Monocytes 0.79 0.26 - 04/28/2021 [facility] 0.81 1:11 PM CDT x10(9)/L Eosinophils 0.12 0.03 - 04/28/2021 [facility] 0.48 1:11 PM CDT x10(9)/L Basophils 0.05 0.01 - 04/28/2021 [facility] 0.08 1:11 PM CDT x10(9)/L Specimen Anatomical Collection Method Collection Time Receive d Time (Source) Location / / Volume Laterality Blood (Blood, 04/28/2021 1:03 PM 04/28/20 1:07 Venous) CDT PM CDT John Farley P.A.-C. LAB BLOOD ADD-ON Performing Organization Address City/State/ZIP Code Phon e Number [facility] - [address] [place], [place] [address] [place] [address] [facility] [address] documented in this encounter Visit Diagnoses Diagnosis Fracture Rib Multiple Closed Initial Rig ht - Primary documented in this encounter Administered Medications Inactive Administered Medications - up to 3 most recent administrations Medication Order MAR Action Action Date Dose Rate Site iohexoL 300 mg iodine/mL solution Given 04/28/2021 2:01 PM CDT 1 00 mL 1-200 mL (OMNIPAQUE) 1-200 mL, intravenous, Once in imaging, contrast, Starting on Sat04/28/21 at 1400, For 1 dose, Imaging Protocol Orders, Dose per Radiant Medication Guidelines sodium chloride (PF) 0.9 % injection 1-1 00 mL Given 04/28/2021 2:01 PM CDT 50 mL 1-100 mL, intravenous, Once, On Sat04/28/21 at 1401, For 1 dose, Imaging Protocol Orders sodium chloride 0.9 % injection 10 mL 10 mL, intravenous, As needed, line care, Starting on Sat04/28/21 at 1251, Peripheral Intravenous Catheter and Rapid Infusion Cat heter, prior to blood sampling, post blood transfusion or post blood samplin g sodium chloride 0.9 % injection 3 mL 3 mL, intravenous, As needed, line care, Starting on Sat04/28/21 at 1251, Prior to and following infusion and between multi ple consecutive infusions: sodium chloride 0.9 % injection sodium chloride 0.9 % injection 3 mL 3 mL, intravenous, Every 12 hours scheduled, First dos e on Sat04/28/21 at 2100, Peripheral Intravenous Catheter and Rapi d Infusion Catheter, when no infusion to maintain patency documented in this encounter Active and Recently Administered Medications Times are shown in CDT. Scheduled Medication Order 04/26/2021 04/27/2021 04/28/2021 sodium chloride (PF) 0.9 % injection 1-100 mL (COMPLETED) 1401 (Given - Provider: Joseph Hughes R.N.) 1-100 mL, intravenous, Once, On Sat at 1401, For 1 dose, Imaging Protocol Orders sodium chloride 0.9 % injection 3 mL 3 mL, intravenous, Every 12 hours schedu led, First dose on Sat04/28/21 at 2100, Peripheral Intravenous Catheter and Rapid Infusion Catheter, when no infusion to maintain patency PRN Medication Order 04/26/2021 04/27/2021 04/28/2021 iohexoL 300 mg iodine/mL solution 1-200 mL (OMNIPAQUE) (COMPLETE D) 1401 (Given - Provider: Joseph Hughes RWilber) 1-200 mL, intravenous, Once in imaging, contrast, Starting on Sat04/28/21 at 1400, For 1 dose, Imaging Protocol Orders, Dose per Radiant Medication Guidelines sodium chloride 0.9 % injection 10 mL 10 mL, intravenous, As needed, line care , Starting on Sat04/28/21 at 1251, Peripheral Intravenous Catheter and Rapid Infusion Catheter, prior to blood sampling, post blood transfusion or post blood sampling sodium chloride 0.9 % injection 3 mL 3 mL, intravenous, As needed, line care, Starting on Sat04/28/21 at 1251, Prior to and following infusion and between multiple consecutive infusions: sodium chloride 0.9 % injection documented in this encounter Additional Health Concerns Infection Onset Date Last Indicated Resolved Time COVID19 Pending 04/28/2021 04/28/2021 04/28/2021 1:38 PM CDT Assessment Noted Time PHQ-9 Depression Total Score: 6 03/20/2017 1:11 PM CDT documented as of this encounter 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
--- OUTSIDE RECORDS SUMMARY | 2022-08-29 10:31 | XMS_ITS | Encounter Summary ---
:1960 Author Organization [facility] Address [address] [place] [address] Care Team Providers Name Role Phone Unavailable Primary Care Provider Unavailable Encounter Details Date Type Department Care Team Description 05/01/2016 Hospital Encounter HX [facility] Aurelia Yadav M.D. [address] [place] [address] (Wo rk) Social History Tobacco Use Types Packs/Day Years Used Date Smoking Tobacco: Never Assessed Sex Assigned at Date Recorded Female 07/10/2022 7:32 AM CDT documented as of this encounter Last Filed Vital Signs Vital Sign Reading Time Taken Comments Blood Pressure 139/89 05/01/2016 8:21 AM CDT Pulse 93 05/01/2016 8:21 AM CDT Temperature - - Respiratory Rate - - Oxygen Saturation - - Inhaled Oxygen Concentration - - Weight 56.9 kg (125 lb 7.1 oz) 05/01/2016 8:21 AM CDT Height 160 cm (5' 2.99) 05/01/2016 8:21 AM CDT Body Mass Index 22.23 05/01/2016 8:21 AM CDT documented in this encounter Medications at Time of Discharge Medication Sig Dispensed Refills Start Date End Date albuterol 90 Inhale 2 puffs every 4 0 03/11/2016 mcg/actuation inhaler (four) hours as needed. CALCIUM CARB/VIT Calcium 600+D See 0 02/20/2014 D3/MINERALS Instructions, 1 TABLET (CALCIUM-VITAMIN D ORAL) DAILY documented as of this encounter Progress Notes Faye Yadav M.D. - 05/01/2016 8:09 AM CDT Clinic Full Note HISTORY OF PRESENT ILLNESS Christiane is a 55 year old woman here for follow up of hospitalization in February in which she was treatedfor alcohol withdrawal seizure, weight loss, and hyponatremia. She is due for a follow up chest XRayat this time. She has been down with a cold for 3 weeks, nonproductive cough, fevers/chills, and sore throat, earache, nasal congestion, and postnasal drip. No fevers, rashes, vomiting or diarrhea. Herhusband had same. She has been using albuterol 2 puffs up to every hour, with short relief, and cough syrup, benadryl, ibuprofen, and daily claritin. She has quit smoking almost completely with nicotine patches and [place] Quitplan. She had one cigarettethis weekend at a wedding. CT scan chest showed bilateral opacities consistent with atelectasis or inflammatory process, 1 month ago, and she is due to follow up with a CXR. She has cut back on drinking, admitting to 5 drinks per week, except more at the wedding she attended. She has not had any seizures. MEDICATIONS albuterol CFC free 90 mcg/inh inhalation aerosol, amLODIPine 5 mg oral tablet, aspirin 81 mg oral delayed release capsule, See Instructions, 1 CAPSULE DAILY bisacodyl 5 mg oral delayed release tablet, Calcium 600+D, See Instructions, 1 TABLET DAILY EpiPen 2-Reg 0.3 mg injectable kit, PRN, IM, Once folic acid 0.4 mg oral tablet, gabapentin 300 mg oral capsule, ibuprofen 200 mg oral capsule, See Instructions, 2 tabs and limits to 4 daily levothyroxine 88 mcg (0.088 mg) oral tablet, loratadine 10 mg oral tablet, 10 mg, 1 tab(s), PO, Daily Multi-Day with Calcium and Extra Iron, See Instructions, None Entered Nicoderm 21 mg/24 hr transdermal film, extended release, 1 patch(es), Daily omeprazole, 20 mg, PO, Daily polyethylene glycol 3350 oral powder for reconstitution, thiamine 100 mg oral tablet, List Documented Prior to Med History Completed ALLERGIES Latex PAST MEDICAL HISTORY Chronic Benign [...] wrist (02/23/2003), Fracture left humerus. SOCIAL HISTORY No Data Available FAMILY HISTORY Father:Positive: Hypertension; Skin cancer; Stroke Sister:Positive: Arthritis; Hypertension Aunt (paternal):Positive: Breast cancer; Cancer HEALTH MAINTENANCE Health Maintenance Pending (in the next year) OverDue Depression: PHQ-9 every 6 months due 04/17/16 and every 183 day(s) Due Screening Colonoscopy or Flex Sig or Occult Blood due 05/01/16 Variable frequency Screening Hepatitis C Once Born Between 5667-3393 due 05/01/16 One-time only Vaccine: Pneumococcal 23-Valent Age 19-64 (Risk Factors) Dose 1 due 05/01/16 One-time only Due In Future Vaccine: Flu every 1 year not due until 06/25/16 and every 1 year(s) Health Assessment every 1 year not due until 10/17/16 and every 1 year(s) Screening Mammogram every 1 year Women 40-75 not due until 02/15/17 and every 366 day(s) Satisfied (in the past 1 year) Satisfied Depression: PHQ-9 every 6 months on 10/17/15. Satisfied by MAMI SALDAÑA [facility] Health Assessment every 1 year on 10/17/15. Satisfied by MAMI SALDAÑA [facility] Lipid Panel every 5 years Age 20-75 on 10/17/15. Satisfied by CONY RODRIGUEZ MT([facility]) Screening Colonoscopy or Flex Sig or Occult Blood on 11/14/15. Satisfied by FAYE YADAV MD Screening Diabetes Blood Glucose every 3 years Age 18-70 (Risk Factors) on 10/17/15. Satisfied by CONY RODRIGUEZ MT([facility]) Screening Mammogram every 1 year Women 40-75 on 02/15/16. Satisfied by ANITA TORREZ Screening Pap Smear every 3 years Women Age 30-65 on 10/17/15. Satisfied by JAYE BRAY DPAnn Vaccine: Flu every 1 year on 10/03/15. Satisfied by MARCO ANTONIO RANDLE [employer]IP BOAT OR BARGE MATE SYSTEMS REVIEW Weight down 3kg in 6 weeks. VITAL SIGNS T: 36.1 ??C (Core) HR: 93 BP: 139 / 89 HT: 160 cm WT: 56.9 kg BMI: 22.23 PHYSICAL EXAMINATION GENERAL: Patient is comfortable, tired appearing, polite and in no distress. EYES: normal lids and sclerae not injected EARS: Right: normal canal and TM with no erythema, small clear effusion, and normal light reflex Left: normal canal and TM with no erythema, no effusion, and normal light reflex NOSE: moderate congestion, no frontal and no maxillary tenderness to palpation THROAT: + erythema, no tonsillar hypertrophy, no sores, no exudates NECK: supple, no anterior lymphadenopathy HEART: Normal rate and rhythm. No murmurs, rubs or gallops. LUNGS: Clear to the bases. + expiratory wheeze noted on forced expiration. + rhonchi. Normal work of breathing. Occasional cough. NEURO: Grossly intact with no evidence of impairment. Normal speech. Tired appearing. IMPRESSION/REPORT/PLAN Abuse Alcohol NOS Advised to stop alcohol all together. Suspect this is significantly affecting her insomnia, and presents ongoing risk of health consequences. Ordered: doxycycline, 100 mg = 1 tab(s), PO, 2xDay, x 10 day(s), # 20 tab(s), 0 Refill(s), Acute, Pharmacy: [facility][id number] Benign Essential Hypertension Higher than normal today, but in light of acute illness, will not change regimen. Recheck in 3 weeks. Ordered: doxycycline, 100 mg = 1 tab(s), PO, 2xDay, x 10 day(s), # 20 tab(s), 0 Refill(s), Acute, Pharmacy: [facility] #[id number] Bronchitis Acute Due to duration and course, suspect this is bacterial in nature. There is no focal consolidation onCXR, so will treat with doxycycline per orders. Continue albuterol, cough suppressant, and add guaifenesin. Recheck if worsening or if not improving within 3 days. If improving, recheck in 3 weeks. She is at risk for bronchitis due to smoking, so after discussion of benefits, risks, side effects,and alternatives to the recommended immunizations, the patient gave verbal permission for the following immunizations, which were given today: PPSV23 Ordered: doxycycline, 100 mg = 1 tab(s), PO, 2xDay, x 10 day(s), # 20 tab(s), 0 Refill(s), Acute, Pharmacy: [facility] #[id number] Loss Weight Advised to stop drinking altogether. Will monitor with weight check in 3 weeks. Need Vaccine (IN) Pneumococcal As above. Tobacco Use Disorder Doing very well quitting. Counseled on increased secretions as she quits. Continue using patches at21mg and at recheck in 3 weeks, consider decrease to 14mg. Continue using [place] quit plan resources. Ordered: doxycycline, 100 mg = 1 tab(s), PO, 2xDay, x 10 day(s), # 20 tab(s), 0 Refill(s), Acute, Pharmacy: [facility] #[id number] Orders: Comprehensive Metabolic Panel Return Visit Internal Med - Extended Return Visit Internal Med - Extended I spent more than 20 minutes of this 30 minute appointment in counseling on management of lung disease, alcohol abuse, and tobacco cessation. Electronically Signed By: FAYE YADAV MD On: 05/01/2016 10:00 AM Source: [facility] POWERCHART Document Id: [id number] documented in this encounter Miscellaneous Notes Miscellaneous - Nanci Hinojosa REvansN. - 08/06/2017 4:49 PM CDT Med Management Document Contains Addenda Addendum by FAYE YADAV MD on August 07, 2017 07:54:21 CDT From: FAYE YADAV MD Sent: 08/07/2017 07:54:21 CDT Subject: RE:Med Management Approved with modifications: Order:gabapentin (gabapentin 300 mg oral capsule) 1 cap(s) PO 3xDay Qty: 90 cap(s) Refills: 1 Substitutions Allowed Route To Pharmacy - [facility] #[id number] Signed by FAYE YADAV MD 08/07/2017 07:54:16 From: NANCI HINOJOSA RN To: FAYE YADAV MD; Sent: 08/06/2017 16:49:11 CDT Subject: Med Management Unable to fill per RN protocol, last creatinine was low. Pt not due for f/u till 01/2018. Creatinine: 0.57 mg/dL Low (03/26/17) * On hold pending signature Order:gabapentin (gabapentin 300 mg oral capsule) 1 cap(s) PO 3xDay Qty: 90 cap(s) Refills: 0 Substitutions Allowed Route To Pharmacy - [facility] #[id number] Source: [facility] POWERCHART Document Id: [id number] Telephone Encounter - Monica Rodrigues R.N. - 05/10/2016 9:44 AM CDT *Phone Message Document Contains Addenda Addendum by FAYE YADAV MD on May 11, 2016 14:32:29 CDT Noted. I don't have anything more to add at the moment, as I have offered and patient has declined referral to in/outpatient treatment program. Agree with advice as below. Will follow up at visit. Leidygamalielanupama's # added to sticky note with MYLENE. From: MONICA RODRIGUES RN (TIO Marino/Stephanie Nurse (RN)) To: FAYE YADAV MD; Sent: 05/10/2016 09:44:46 CDT Subject: *Phone Message Caller is: ( ) Patient ( ) Mother ( ) Father ( ) Spouse ( x) Daughter ( ) Son ( ) Pharmacy ( ) Other: Physician: Patient MRN #: Reason for Call: update, concerned regarding patient's alcohol abuse Message: MYLENE signed 05/01/16 to talk with daughter José Miguel. Daughter, José Miguel, calls stating that she feels patient's getting worse with her alcohol abuse, Dr. Yadav doesn't even know how bad her drinking actually is. She reports patient has been drinking more in the last week since patient's has been gone on a fishing trip. Patient has been acting different towards her and the family, more threatening and bizarre behaviors. She denies that patient is acting that way currently. Daughter reports she has been trying to set better boundaries for patient's behaviors and patient has not been happy with that. She also states patient told her a coupleweeks ago that she had some blood in her stool but patient denies that now and, daughter states, patient will deny it ever happened when others ask her. She is aware that patient is scheduled for a followup in clinic on 05/23. We did review last office note and lab results as sent in letter to patient. She verbalized understanding. Advice/Action: We discussed if any concern for patient or family's safety, to call emergency services and she is aware and will do so. I did also provide daughter with [facility] number to talk to someone about other resources available for her and patient. They will keep us updated as needed. Source used: ( ) Verbalizes understanding of instructions ( ) Instructed to call back if symptoms worsen or do not resolve ( ) Refused to see provider ( ) Appointment Scheduled ( ) OK to leave message on voice mail ( ) Patient told to expect return call: ( ) today ( ) tomorrow ( ) next work day ( ) Patient's email ( ) Patient told physician out of office, will call upon return call on ( ) ( ) Patient told physician out of office, routed to other physician ( ) Other ( ) Call back telephone number ( ) Call back cell phone number ( x )José Miguel's number, Source: [facility] POWERCHART Document Id: [id number] Electronically signed by Conversion, [facility] [employer] Mach[employer] Instructor [id number] at 04/20/2017 9:33 PM CDT Miscellaneous - Faye Yadav M.D. - 05/02/2016 5:46 PM CDT Normal Results Letter May 02, 2016 [place] [id number] [address] [place] [id number] Dear CHIP MAI, I am pleased to report that your results from the following diagnostic test(s) look good, except forsome elevation of one liver enzyme (AST). As we have discussed, I recommend avoiding all alcohol intake, which will hopefully resolve this. Please follow up with us as we discussed during your visit or sooner if you have any concerns. If you have questions or concerns, please do not hesitate to call our office. Result Name Current Result Previous Result Normal Range Sodium Lvl (mmol/L) 139 05/01/2016 140 03/20/2016 135 - 145 Potassium Lvl (mmol/L) 4.2 05/01/2016 (H) 5.3 03/20/2016 3.5 - 5.1 Chloride (mmol/L) (L) 95 05/01/2016 98 03/20/2016 98 - 107 CO2 (mmol/L) 27 05/01/2016 28 03/20/2016 22 - 29 AGAP (mmol/L) 17 05/01/2016 18 10/17/2015 10 - 20 Alkaline Phosphatase (U/L) 109 05/01/2016 46 - 118 Glucose Lvl (mg/dL) 96 05/01/2016 88 03/20/2016 70 - 139 Creatinine (mg/dL) (L) 0.43 05/01/2016 (L) 0.57 03/20/2016 0.60 - 1.10 EGFR (MDRD) (mL/min/1.73m2) >60 05/01/2016 >60 03/20/2016 >=60 - EGFR (MDRD) (mL/min/1.73m 2) >60 05/01/2016 >60 03/20/2016 >=60 - BUN (mg/dL) (L) 5 05/01/2016 6 03/20/2016 6 - 21 Calcium Lvl (mg/dL) 9.8 05/01/2016 10.2 03/20/2016 8.6 - 10.3 Protein Total (g/dL) 7.1 05/01/2016 6.3 - 7.9 Albumin Lvl (g/dL) 4.5 05/01/2016 3.5 - 5.0 AST (U/L) (H) 44 05/01/2016 8 - 43 ALT (U/L) 21 05/01/2016 7 - 45 Bili Total (mg/dL) 0.4 05/01/2016 0.1 - 1.0 XR Chest 2 Views 05/01/2016 Sincerely, FAYE YADAV [facility] [place] [address] Electronic Signature Electronically Signed By: FAYE YADAV MD On: May 02, 2016 This document has images extracted. Source: [facility] POWERCHART Document Id: [id number] Electronically signed by Conversion, [facility] [employer] Instructor [id number] at 04/20/2017 9:33 PM CDT Telephone Encounter - Diogenes Ireland C.MLaw - 05/01/2016 4:44 PM CDT *Phone Message Document Contains Addenda Addendum by MAMI SALDAÑA CMA on May 02, 2016 08:17:05 CDT Patient notified of x-ray results, voiced understanding and no further questions at this time Addendum by FAYE YADAV MD on May 01, 2016 17:20:30 CDT From: FAYE YADAV MD To: [facility] Nurse (SHIP BOAT OR BARGE MATE/MEÑO); Sent: 05/01/2016 17:20:30 CDT Subject: RE: *Phone Message Please let her know CXR was read as normal! I will send lab results in a letter. From: DIOGENES IRELAND CMA ([facility] Nurse ([facility])) To: FAYE YADAV MD; Sent: 05/01/2016 16:44:42 CDT Subject: *Phone Message Caller is: ( ) Patient ( ) Mother ( ) Father ( ) Spouse ( ) Daughter ( ) Son ( ) Pharmacy ( ) Other: Physician: Patient MRN #: Reason for Call: Pt wondering about xray results from this morning. [phone] Message: Advice/Action: Source used: ( ) Verbalizes understanding of instructions ( ) Instructed to call back if symptoms worsen or do not resolve ( ) Refused to see provider ( ) Appointment Scheduled ( ) OK to leave message on voice mail ( ) Patient told to expect return call: ( ) today ( ) tomorrow ( ) next work day ( ) Patient's email ( ) Patient told physician out of office, will call upon return call on ( ) ( ) Patient told physician out of office, routed to other physician ( ) Other ( ) Call back telephone number ( ) Call back cell phone number ( ) Source: [facility] POWERCHART Document Id: [id number] Electronically signed by Gabriela [facility] [employer] Instructor [id number] at 04/20/2017 9:33 PM CDT Miscellaneous - Mami Saldaña C.M.A. - 05/01/2016 10:23 AM CDT PHQ-9 PHQ-9 Entered On: 05/01/2016 10:24 CDT Performed On: 05/01/2016 10:23 CDT by MAMI SALDAÑA [facility] PHQ-9 Little interest or pleasure in doing things : Not at all Feeling down, depressed, or hopeless : Not at all Trouble falling or staying asleep, or sleeping too much : Nearly every day Feeling tired or having little energy : Several days Poor appetite or overeating : Several days Feeling bad about yourself or that you are a failure : Not at all Trouble concentrating on things : Not at all Moving or speaking slowly; restless or fidgety : Not at all Thoughts that you would be better off /hurting self : Not at all PHQ-9 Calculated Score : 5 Problems make work, home, or dealing with others : Not difficult at all MAMI SALDAÑA [facility] - 05/01/2016 10:23 CDT Source: [facility] POWERCHART Document Id: [id number] CDT!13 Nancycellpepper - Faye Yadav M.D. - 05/01/2016 10:01 AM CDT Ambulatory Patient Summary [address] [id number] Visit Information Name: CHIP MAI [facility] Number: [id number] Current Date: 05/01/2016 10:01:32 Physicians Attending Provider: FAYE YADAV MD Primary [...] (Calcium 600+D) See Instructions 1 TABLET DAILY doxycycline (doxycycline hyclate 100 mg oral tablet) 1 Tablet(s), Oral, two times a day x 10 day(s) New Routed to [address] [address] EPINEPHrine (EpiPen 2-Reg 0.3 mg injectable kit) Intramuscular, once PRN folic acid (folic acid 0.4 mg oral tablet) 400 mcg, Oral, once a day gabapentin (gabapentin 300 mg oral capsule) 1 cap, Oral, three times a day ibuprofen (ibuprofen 200 mg oral capsule) See [...] tablet) 1 Tablet(s), Oral, once a day Stop Taking the Following Medications: Medication list as of 05-01-16 10:01 Attention: If you have any medications at [...] Electronically Signed By: FAYE YADAV MD Signed On:01-MAY-2016 10:01:24 Your Allergies & Intolerances Substance Reaction Symptoms [...] Your Upcoming Appointments Date Time Location Provider 05/23/2016 08:45 [facility] Faye Yadav MD Attention: Contact your local Clinic if further [...] if you dont have one. Go to [email or web address] and click on Create Your Account. Then, follow the directions to complete the online form. Youll be asked for your [facility] number which you can find at the top of this document. Your Goals/Additional instructions: Source: [facility] POWERCHART Document Id: [id number] Miscellaneous - Faye Yadav M.D. - 05/01/2016 10:01 AM CDT Ambulatory Discharge Medication List [address] [id number] Visit Information Name: CHIP MAI [facility] Number: [id number] Visit Date: 05/01/2016 10:01:30 Attending Provider: FAYE YADAV MD Primary Care [...] (Calcium 600+D) See Instructions 1 TABLET DAILY doxycycline (doxycycline hyclate 100 mg oral tablet) 1 Tablet(s), Oral, two times a day x 10 day(s) New Routed to [place] [id number] [address] EPINEPHrine (EpiPen 2-Reg 0.3 mg injectable kit) Intramuscular, once PRN folic acid (folic acid 0.4 mg oral tablet) 400 mcg, Oral, once a day gabapentin (gabapentin 300 mg oral capsule) 1 cap, Oral, three times a day ibuprofen (ibuprofen 200 mg oral capsule) See [...] tablet) 1 Tablet(s), Oral, once a day Stop Taking the Following Medications: Medication list as of 05-01-16 10:01 Attention: If you have any medications at [...] Electronically Signed By: FAYE YADAV MD Signed On:01-MAY-2016 10:01:24 Additional Information: Source: [facility] POWERCHART Document Id: [id number] Miscellaneous - Mami Saldaña, C.M.A. 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 Intake/History Entered On: 05/01/2016 8:22 CDT Performed On: 05/01/2016 8:21 CDT by MAMI SALDAÑA CMA Intake Chief Complaint : CT follow-up Temperature Core : 36.1 DegC(Converted to: 97.0 DegF) (LOW) Peripheral Pulse Rate : 93 /min Systolic Blood Pressure : 139 mmHg Diastolic Blood Pressure : 89 mmHg NIBP Mean : 106 mmHg Height : 160 cm(Converted to: 5 ft 3 inch(es), 63 inch(es)) Actual Weight : 56.9 kg(Converted to: 125 lb 7 oz) Dosing Weight Clinic : 56.9 kg Clinic BSA : 1.59 Body Mass Index : 22.23 kg/m2 MAMI SALDAÑA CMA - 05/01/2016 8:21 CDT General Info Information Given By : Patient Languages : Uzbek Is Patient Female and 13-50 no hysterectomy : No MAMI SALDAÑA CMA - 05/01/2016 8:21 CDT Subjective Pain Symptoms : No MAMI SALDAÑA CMA - 05/01/2016 8:21 CDT Dependent Habits Exposure to Tobacco Smoke : Patient smokes, Other: .5-1 PPD Smoking Status : Former smoker Tobacco 2A : Yes Tobacco Use/Currently Using : No Tobacco Use/Last 30 Days : Yes Tobacco Use/Last 12 months : Yes Type : Cigarettes: Less than 20 per day Tobacco Use/Advised to Quit : Yes MAMI SALDAÑA CMA - 05/01/2016 8:21 CDT Caffeine Use Grid Caffeine Use : Current Type : Coffee Frequency : Daily Amount : 3-4 cups MAMI SALDAÑA CMA - 05/01/2016 8:21 CDT Source: [employer] Document Id: [id number] CDT!34 documented in this encounter Plan of Treatment Upcoming Encounters Date Type Specialty Care Team Description 08/30/2022 Diagnostic Neurology Karin Ramachandran M.D., M.P.H. [address] [place] [phone] (Wo rk) 10/10/2022 Office Visit Neurology Karin Ramachandran M.D., M.P.H. [address] [place] [phone] (Wo rk) documented as of this encounter Procedures Procedure Name Priority Date/Time Associated Comments Diagnosis COMPREHENSIVE Routine 05/01/2016 7:37 AM Results for this METABOLIC PANEL, S/P CDT procedu re are in the results section. documented in this encounter Results (ABNORMAL) CMP (Comprehensive Metabolic Panel) (05/01/2016 7:37 AM CDT) [facility] gist Method Time Signature Alanine 21 7 - 45 UL POWERCHART Amniotransferase, LD Albumin, S 4.5 3.5 - 5.0 POWERCHART GDL Alkaline 109 46 - 118 POWERCHART Phosphatase, S UL Aspartate 44 (H) 8 - 43 UL POWERCHART Aminotransferase (AST), S Sodium, S 139 135 - 145 POWERCHART MMOLL Potassium, S 4.2 3.5 - 5.1 POWERCHART MMOLL Chloride, S 95 (L) 98 - 107 POWERCHART MMOLL CO2 Total 27 22 - 29 POWERCHART MMOLL BUN (Blood Urea 5 (L) 6 - 21 POWERCHART Nitrogen), S MGDL Creatinine 0.43 (L) 0.60 - POWERCHART 1.10 MGDL Calcium, Total, S 9.8 8.6 - POWERCHART 10.3 MGDL Anion Gap 17 10 - 20 POWERCHART MMOLL Bilirubin, Total, S 0.4 0.1 - 1.0 POWERCHART MGDL Total Protein, S 7.1 6.3 - 7.9 POWERCHART GDL Glucose 96 70 - 139 POWERCHART MGDL eGFR Black/ >60 >=60 POWERCHART Martiniquais [id number] 2 HXeGFR (MDRD) >60 >=60 POWERCHART [id number] 2 Comment: Results are in mL/min/1.73m CKD Stage I: ? GFR > 90 CKD Stage II: ?GFR 60 to 89 CKD Stage III: ? GFR 30 to 59 CKD Stage IV: ? GFR 15 to 29 CKD Stage V: ?GFR < 15 or Dialysi s Specimen (Source) Anatomical Collection Method Collection Time Re ceived Time Location / / Volume Laterality Blood 05/01/2016 7:37 AM CDT Faye Yadav M.D. LAB BLOOD ADD-ON Performing Organization Address City/State/ZIP Code Phon e Number POWERCHART documented in this encounter Visit Diagnoses Not on filedocumented in this encounter Additional Health Concerns Assessment Noted Time PHQ-9 Depression Total Score: 5 05/01/2016 10:23 AM CD T documented as of this encounter
--- OUTSIDE RECORDS SUMMARY | 2022-08-29 10:31 | XMS_ITS | Encounter Summary ---
:1960 Author Organization [facility] Address [address] [place] [address] Care Team Providers Name Role Phone Unavailable Primary Care Provider Unavailable Encounter Details Date Type Department Care Team Description 03/20/2017 Hospital Encounter HX [facility] Aurelia Milligan M.D. [address] [place] [address] (Wo rk) Social History Tobacco [...] - - Height 160 cm (5' 2.99) 03/20/2017 12:34 PM CDT Body Mass Index - - documented [...] of this encounter Miscellaneous Notes Miscellaneous - Conversion, Historical Provider Ser - 03/20/2017 11:59 PM CDT Coding Summary-Paper Based CODING DATE: 03/25/2017 FINAL RW [facility] STATUS: * Discharged to Home or Self Care PAYOR: [employer] ADMIT DX: REASON FOR VISIT DX: FINAL DX: PRINCIPAL: Z12.31 Encounter for screening mammogram for malignant neoplasm of breast SECONDARY: PROCEDURES DOCTOR NAME DATE NOTE: The code number assigned matches the documented diagnosis and / or procedure in the patient's chart. However, the narrative phrase printed from the coding software may appear abbreviated, or result in slightly different terminology. Coded By: MONICA ROSARIO Date Saved: 03/25/2017 02:58 pm [facility] Document Id: [id number] documented in this encounter Plan of Treatment Upcoming Encounters Date Type Specialty Care Team Description 08/30/2022 Diagnostic Neurology Karin Ramachandran M.D., M.P.H[facility] [address] [phone] (Howie edan) 10/10/2022 Office Visit Neurology Karin Ramachandran M.D., M[facility]P.H[facility] [address] [phone] (Howie dean) documented as of this encounter Visit Diagnoses Not on filedocumented in this encounter Additional Health Concerns Assessment Noted Time PHQ-9 Depression Total Score: 6 03/20/2017 1:11 PM CDT documented as of this encounter
--- OUTSIDE RECORDS SUMMARY | 2022-08-29 10:31 | XMS_ITS | Encounter Summary ---
:1960 Author Organization [facility] Address [address] [place] [address] Care Team Providers Name Role Phone Elsewhere, Pcp Primary Care Provider Unavailable Reason for Visit Reason Onset Date Comments Outpatient COVID-19 Testing 10/31/2020 Encounter Details Date Type Department Care Team Description 10/31/2020 External Outreach Department of [facility] Jennifer Starks Infection Upper Medicine, [place] Cait Jensen Respiratory (Primary Clinic, [facility] [place], [address] [facility] [place], [place] [address] [address] [place], [place] [phone] (Work) [phone] Social History Tobacco Use Types Packs/Day Years Used Date Smoking Tobacco: Heavy Smoker Sex Assigned at Date Recorded Female 07/10/2022 7:32 AM CDT documented as of this encounter Progress Notes Dai Ash L.PEvansN. - 10/31/2020 2:27 PM CST Encounter created for the drive-through COVID-19 testing. [facility] [employer] EDUC[employer] documented in this encounter Plan of Treatment Upcoming Encounters Date Type Specialty Care Team Description 08/30/2022 Diagnostic Neurology Karin Ramachandran M.D., M.P.H. [address] [place], [place] [phone] (Wo rk) 10/10/2022 Office Visit Neurology Karin Ramachandran M.D., M.P.H. [address] [place], [place] [address], [place] [phone] (Wo rk) documented as of this encounter Visit Diagnoses Diagnosis Infection Upper Respiratory - Primary documented in this encounter Additional Health Concerns Infection Onset Date Last Indicated Resolved Time COVID19 Pending 10/31/2020 11/01/2020 11/07/2020 1:16 PM PRIMARY SPECIAL EDUCATOR Assessment Noted Time PHQ-9 Depression Total Score: 6 03/20/2017 1:11 PM CDT documented as of this encounter Care Teams Lemon Grower Relationship 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
--- OUTSIDE RECORDS SUMMARY | 2022-08-29 10:31 | XMS_ITS | Encounter Summary ---
:1960 Author Organization [facility] Address [address] [place] [address] Care Team Providers Name Role Phone Unavailable Primary Care Provider Unavailable Encounter Details Date Type Department Care Team Description 05/23/2016 Hospital Encounter HX [facility] Aurelia Yadav M.D. [address] [place] [address] (Wo rk) Social History Tobacco Use Types Packs/Day Years Used Date Smoking Tobacco: Never Assessed Sex Assigned at Date Recorded Female 07/10/2022 7:32 AM CDT documented as of this encounter Last Filed Vital Signs Vital Sign Reading Time Taken Comments Blood Pressure 156/87 05/23/2016 8:48 AM CDT Pulse 78 05/23/2016 8:48 AM CDT Temperature - - Respiratory Rate - - Oxygen Saturation - - Inhaled Oxygen Concentration - - Weight 59.3 kg (130 lb 11.7 oz) 05/23/2016 8:48 AM CDT Height 160 cm (5' 2.99) 05/23/2016 8:48 AM CDT Body Mass Index 23.16 05/23/2016 8:48 AM CDT documented in this encounter Medications at Time of Discharge Medication Sig Dispensed Refills Start Date End Date albuterol 90 Inhale 2 puffs every 4 0 03/11/2016 mcg/actuation inhaler (four) hours as needed. CALCIUM CARB/VIT Calcium 600+D See 0 02/20/2014 D3/MINERALS Instructions, 1 TABLET (CALCIUM-VITAMIN D ORAL) DAILY documented as of this encounter Progress Notes Faye Yadav M.D. - 05/23/2016 9:08 AM CDT Clinic Full Note CHIEF COMPLAINT/REASON FOR VISIT Follow-up Lungs.Possible yeast infection. Vaginal irritation, burning with urination x 3 days. HISTORY OF PRESENT ILLNESS The patient is here for follow up of the following chronic conditions: HYPERTENSION: The patient has hypertension of moderate severity and long standing duration. Patients blood pressures have been in the high-normal range after decreasing amlodipine. Patient does not perform home BP monitoring. Current treatment includes amlodipine. The patient is compliant with medications and is compliant with a lower sodium diet. Patient denies any symptoms, including CP, VILLAFANA, BAUER, vision change, edema, orthopnea or PND. TOBACCO USE DISORDER: Has quit. Current tobacco use: none Compliant with meds: using nicotine patchand nicotrol inhalers her cousin gave her HYPOTHYROIDISM: Has been stable. ALCOHOL ABUSE: Patient has elevated transaminases and had alcohol withdrawal seizure this spring, requiring hospitalization. She continues to drink up to 12 beers per weekend, but she states she has cut back on whiskey. She denies any further seizures or new concerns. A family member called in with concern about patient's behavior lately, stating patient's getting worse with her alcohol abuse, Dr. Yadav doesn't even know how bad her drinking actually is. She reports patient has been drinking more in the last week since patient's has been gone on a fishing trip. Patient has been acting different towards the family, more threatening and bizarre behaviors. She denies that patient is act ing that way currently. Family member reports trying to set better boundaries for patient's behaviors and patient has not been happy with that. 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 SOCIAL HISTORY Date Time: 05/23/2016 08:48 Tobacco: Smoking Status: Former smoker Exposure: Patient smokes, Other: .5-1 PPD Alcohol: Use: No Results Found Recreational Drugs: Use: No Results Found Type: No Results Found FAMILY HISTORY Father:Positive: Hypertension; Skin cancer; Stroke Sister:Positive: Arthritis; Hypertension Aunt (paternal):Positive: Breast cancer; Cancer HEALTH MAINTENANCE Health Maintenance Pending (in the next year) Due Screening Colonoscopy or Flex Sig or Occult Blood due 05/23/16 Variable frequency Screening Hepatitis C Once Born Between 6682-2460 due 05/23/16 One-time only Due In Future Diabetes, Hypertension and/or Vascular: Blood Pressure is Uncontrolled (greater than 139/89) not due until 05/24/16 and every 1 day(s) Vaccine: Flu every 1 year not due until 06/25/16 and every 1 year(s) Health Assessment every 1 year not due until 10/17/16 and every 1 year(s) Depression: PHQ-9 every 6 months not due until 10/31/16 and every 183 day(s) Screening Mammogram every 1 year Women 40-75 not due until 02/15/17 and every 366 day(s) Satisfied (in the past 1 year) Satisfied Depression: PHQ-9 every 6 months on 05/01/16. Satisfied by MAMI SALDAÑA CMA Diabetes, Hypertension and/or Vascular: Blood Pressure is Uncontrolled (greater than 139/89) on 05/23/16. Satisfied by DEMETRIO HUGHES LPN Health Assessment every 1 year on 10/17/15. Satisfied by MAMI SALDAÑA CMA Lipid Panel every 5 years Age 20-75 on 10/17/15. Satisfied by CONY RODRIGUEZ MT([facility]) Screening Colonoscopy or Flex Sig or Occult Blood on 11/14/15. Satisfied by FAYE YADAV MD Screening Diabetes Blood Glucose every 3 years Age 18-70 (Risk Factors) on 10/17/15. Satisfied by CONY RODRIGUEZ MT([facility]) Screening Mammogram every 1 year Women 40-75 on 02/15/16. Satisfied by BRANNON --ANITA Screening Pap Smear every 3 years Women Age 30-65 on 10/17/15. Satisfied by JAYE BRAY DPAnn Vaccine: Flu every 1 year on 10/03/15. Satisfied by MARCO ANTONIO RANDLE [facility] REVIEW -3 days of vagintal itch after swimming in the river. No vaginal discharge. Tried OTC monistat withsome improvement. No risk of STI. Today started to have an external burning sensation with urination. -no cough or SOB -weight back up 3kg VITAL SIGNS T: 36.9 ??C (Core) HR: 78 BP: 156 / 87 SpO2: 99% HT: 160 cm WT: 59.3 kg BMI: 23.16 repeat BP 162/86 PHYSICAL EXAMINATION GENERAL: Patient is comfortable, polite and in no distress. HEENT: moist mucosa, no oral lesions, pharynx not inflamed. Ear canals and TMs normal NECK: supple, no lymphadenopathy HEART: Normal rate and rhythm. No murmurs, rubs or gallops. LUNGS: Clear to auscultation. No wheeze, rales or rhonchi noted. Normal work of breathing ABDOMEN: Soft, nontender, nondistended. No hepato-splenomegaly or masses. EXT: No cyanosis, clubbing or edema. SKIN: no rashes or suspicious lesions PSYCH: mental status appropriate. Normal speech. PELVIC: reddened excoriated labia majora, normal vaginal mucosa and rugae, cervix is clear, no discharge noted IMPRESSION/REPORT/PLAN 1. Abuse Alcohol NOS Expressed my concern to patient as well as family member's concern. Advise to cut out alcohol entirely, Discussed end organ damage she has already sustained with the seizure and evidence of liver damage. Strongly recommend comprehensive treatment, perhaps in an inpatient setting. She states she will talk to her about this. 2. Hypertension HTN Essential Benign Not controlled. Increase amlodipine to 10mg daily. Recheck in 1 month or sooner as needed. Medications, proper use, and common and severe side effects were reviewed with the patient. 3. Abuse Tobacco NOS Congratulated patient on quitting. Nicotrol inhaler is okay to use. Added to med list. 4. Dysuria NOS UA not consistent with UTI. Ordered: Urinalysis with Culture if Indicated 5. Vaginitis NOS Vulva inflamed with possible contact dermatitis vs excoriation. May use topical hydrocortisone 1% ointment up to tid for up to 7 days. RTC if worsening or not improving. I spent more than 20 minutes of this 30 minute appointment in counseling on management of alcohol abuse, vulvitis, HTN. Electronically Signed By: FAYE YADAV MD On: 05/23/2016 01:39 PM Source: [facility] POWERCHART Document Id: [id number] documented in this encounter Miscellaneous Notes Miscellaneous - Monica Rodrigues R.N. - 02/04/2017 2:52 PM CDT Med Management Document Contains Addenda Addendum by FAYE YADAV MD on February 04, 2017 17:12:07 CDT From: FAYE YADAV MD Sent: 02/04/2017 17:12:07 CDT Subject: RE:Med Management Approved Order:levothyroxine (levothyroxine 88 mcg (0.088 mg) oral tablet) 1 tab(s) PO Daily Qty: 30 tab(s) Refills: 1 Substitutions Allowed Route To Pharmacy [facility][id number] Signed by FAYE YADAV MD 02/04/2017 17:12:02 From: MONICA RODRIGUES RN ([facility]/Stephanie Nurse (RN)) To: FAYE YADAV MD; Sent: 02/04/2017 14:52:55 CDT Subject: Med Management SHARON 05/23/16. Scheduled for followup on 03/20/17. Last TSH: TSH: 1.84 10/17/15 On hold pending signature Order:levothyroxine (levothyroxine 88 mcg (0.088 mg) oral tablet) 1 tab(s) PO Daily Qty: 30 tab(s) Refills: 1 Substitutions Allowed Route To [facility][id number] Source: [facility] [employer] Document Id: [id number] Electronically signed by Conversion, [facility] Mural Painter [id number] at 04/20/2017 6:40 PM CDT Miscellaneous - Conversion, Historical Provider Ser - 12/18/2016 9:01 AM ACCESS REGISTRAR Schedule Follow-Up Visit December 18, 2016 [place] [address] [place] [id number] Dear CHIP MAI, [facility] would like to better assist you with managing your care. By seeing your primary care team for regular check ups and labs, we can be sure you will get the care you need when you need it. Therefore, our records indicate that you're due for: Blood Pressure Follow Up with Dr. Yadav Please call our appointment desk at [phone] or my direct line at [phone]. Sincerely, ARNVA JEWELL Electronic Signature Electronically Signed By: ARNAV JEWELL On: December 18, 2016 This document has images extracted. Source: [facility] [employer] Document Id: [id number] Miscellaneous - Dylan Painting R.N. - 10/02/2016 1:57 PM CST Med Management Document Contains Addenda Addendum by FAYE YADAV MD on October 03, 2016 11:42:13 ACCESS REGISTRAR From: FAYE YADAV MD Sent: 10/03/2016 11:42:13 ACCESS REGISTRAR Subject: RE:Med Management Approved Order:gabapentin (gabapentin 300 mg oral capsule) 1 cap(s) PO 3xDay Qty: 90 cap(s) Refills: 1 Substitutions Allowed Route To [facility] #[id number] Signed by FAYE YADAV MD 10/03/2016 11:42:05 Approved Order:levothyroxine (levothyroxine 88 mcg (0.088 mg) oral tablet) 88 mcg PO Daily Qty: 30 each Refills: 1 Substitutions Allowed Route To [facility] #[id number] Signed by FAYE YADAV MD 10/03/2016 11:42:04 Addendum by JUNIE LOPEZ RN on October 03, 2016 08:35:46 ACCESS REGISTRAR From: JUNIE LOPEZ RN ( [place]/Stephanie Nurse (RN)) To: FAYE YADAV MD; Sent: 10/03/2016 08:35:46 ACCESS REGISTRAR Subject: Med Management Please advise per BELL msg below. All other medications that pt is requesting have remaining refills left at pharmacy. Thank you. On hold pending signature Order:levothyroxine (levothyroxine 88 mcg (0.088 mg) oral tablet) 88 mcg PO Daily Qty: 30 each Refills: 1 Substitutions Allowed Route To [facility] #[id number] On hold pending signature Order:gabapentin (gabapentin 300 mg oral capsule) 1 cap(s) PO 3xDay Qty: 90 cap(s) Refills: 1 Substitutions Allowed Route To [facility][id number] Addendum by SHENG WHYTE on October 03, 2016 08:19:25 ACCESS REGISTRAR From: SHENG WHYTE ([facility] Bell Captain) To: TIO Arevalo Nurse (RN); Sent: 10/03/2016 08:19:25 ACCESS REGISTRAR Subject: FW: Med Management spoke with pt and she is scheduled for 11/14/[address] Yadav. please ensure she will have enoughrefills on all of her meds (BP, thyroid, abdirahman, Vit B.) please send all refills to [facility] in [place]. Addendum by JUNIE LOPEZ RN on October 02, 2016 14:08:03 ACCESS REGISTRAR From: JUNIE LOPEZ RN (TIO Marino/Stephanie Nurse (RN)) To: Stephanie Bell Captain; Sent: 10/02/2016 14:08:03 ACCESS REGISTRAR Subject: FW: Med Management Please call and assist in scheduling pt or send second letter per msg below from Dr. Yadav, thank you! Addendum by FAYE YADAV MD on October 02, 2016 14:07:22 ACCESS REGISTRAR From: FAYE YADAV MD To: TIO Arevalo Nurse (RN); Sent: 10/02/2016 14:07:22 ACCESS REGISTRAR Subject: RE: Med Management Addendum by FAYE YADAV MD on October 02, 2016 14:07:20 ACCESS REGISTRAR Approved Order:gabapentin (gabapentin 300 mg oral capsule) 1 cap(s) PO 3xDay Qty: 45 cap(s) Refills: 0 Substitutions Allowed Route To Pharmacy - [facility] #[id number] Signed by FAEY YADAV MD 10/02/2016 14:07:16 needs to make f/u appt for further refills. Please sent second letter. From: DYLAN PAINTING RN (TIO Marino/Stephanie Nurse (RN)) To: FAYE YADAV MD; Sent: 10/02/2016 13:57:15 ACCESS REGISTRAR Subject: Med Management On hold pending signature Order:gabapentin (gabapentin 300 mg oral capsule) 1 cap(s) PO 3xDay Qty: 45 cap(s) Refills: 0 Substitutions Allowed Route To Pharmacy - [facility] #[id number] Patient overdue for appointment. Letter sent on 07/27/2016; patient called on 08/08/2016. No follow up appointment made Please review and recommend Two weeks pended Source: [facility] POWERCHART Document Id: [id number] Electronically signed by Conversion, [facility] Mural Painter [id number] at 04/20/2017 6:40 PM CDT Telephone Encounter - Conversion, Historical Provider Ser - 08/08/2016 2:13 PM CDT *Phone Message Document Contains Addenda Addendum by RICHARD MORRISON on August 08, 2016 14:28:31 CDT done Addendum by MONICA RODRIGUES RN on August 08, 2016 14:21:32 CDT From: MONICA RODRIGUES RN (TIO Marino/Stephanie Nurse (RN)) To: TIO Brown Bell Captain; Sent: 08/08/2016 14:21:32 CDT Subject: FW: *Phone Message Scheduling-to clarify, this followup appointment in August is for her HTN, not to renew gabapentin.Please update indication for visit on schedule for 09/05. Patient will still come for appointment. She will also continue on her gabapentin, along with other meds as prescribed, until she sees Dr. Yadav in August. Pt denied any other questions or concerns at this time. From: RICHARD MORRISON (TIO Brown Bell Captain) To: TIO Marino/Stephanie Nurse (RN); Sent: 08/08/2016 14:13:31 CDT Subject: *Phone Message Caller is: ( x ) Patient ( ) Mother ( ) Father ( ) Spouse ( ) Daughter ( ) Son ( ) Pharmacy ( ) Other: Physician: Dr. Yadav Patient MRN #: Reason for Call: Message: Pt set up appt in Aug to renew Poncho, but was wondering if she still needs to take this med. Please call pt. Advice/Action: Source used: ( ) Verbalizes understanding [...] Call back cell phone number ( ) Addendum by RICHARD MORRISON on July 27, 2016 09:14:29 CDT Appt letter mailed to pt Addendum by MONICA RODRIGUES RN on July 26, 2016 12:19:26 CDT From: MONICA RODRIGUES RN (TIO Marino/Stephanie Nurse (RN)) To: TIO Brown Bell Captain; Sent: 07/26/2016 12:19:26 CDT Subject: FW: Med Management Please contact patient to arrange followup visit as below. Return visit order already in chart. Thanks. Addendum by FAYE YADAV MD on July 26, 2016 12:16:51 CDT From: FAYE YADAV MD To: TIO Marino/Stephanie Nurse (RN); Sent: 07/26/2016 12:16:51 CDT Subject: RE: Med Management Addendum by FAYE YADAV MD on July 26, 2016 12:16:47 CDT Approved Order:gabapentin (gabapentin 300 mg oral capsule) 1 cap(s) PO 3xDay Qty: 90 cap(s) Refills: 0 Substitutions Allowed Route To Pharmacy - [facility] #[id number] Signed by FAYE YADAV MD 07/26/2016 12:16:42 please arrange OV if not already scheduled From: JUNIE LOPEZ RN (TIO Marino/Stephanie Nurse (RN)) To: FAYE YADAV MD; Sent: 07/26/2016 11:48:21 CDT Subject: Med Management SHARON 05/23/16. Does not meet RN refill protocol d/t out of range creatinine. Please advise, thank you. POC: IMPRESSION/REPORT/PLAN 1. Abuse Alcohol NOS Expressed my concern to patient as well as family member's concern. Advise to cut out alcohol entirely, Discussed end organ damage she has already sustainedwith the seizure and evidence of liver damage. Strongly recommend comprehensive treatment, perhaps in an inpatient setting. She states she will talk to her about this. 2. Hypertension HTN Essential Benign Not controlled. Increase amlodipine to 10mg daily. Recheck in 1 month or sooner as needed. Medications, proper use, and common and severe side effects were reviewed with the patient. 3. Abuse Tobacco NOS Congratulated patient on quitting. Nicotrol inhaler is okay to use. Added to med list. 4. Dysuria NOS UA not consistent with UTI. Ordered: Urinalysis with Culture if Indicated Sodium Lvl: 139 05/01/16 Potassium Lvl: 4.2 05/01/16 Chloride: 95 Low 05/01/16 CO2: 27 05/01/16 Glucose Fastin 10/17/15 Glucose Lvl: 96 05/01/16 Creatinine: 0.43 Low 05/01/16 Calcium Lvl: 9.8 05/01/16 BUN: 5 Low 05/01/16 EGFR (MDRD): >60 05/01/16 EGFR (MDRD): >60 05/01/16 AGAP: 17 05/01/16 On hold pending signature Order:gabapentin (gabapentin 300 mg oral capsule) 1 cap(s) PO 3xDay Qty: 90 cap(s) Refills: 0 Substitutions Allowed Route To Pharmacy - [facility] #[id number] Source: [facility] POWERCHART Document Id: [id number] Miscellaneous - Conversion, Historical Provider Ser - 07/27/2016 9:14 AM CDT Schedule Follow-Up Visit July 27, 2016 [place] [address] [place] [id number] Dear CHIP MAI, Our records indicate that you are due for a follow up appointment with Dr. Yadav. Please call us to make an appointment at your convenience. Our telephone number for scheduling an appointment is [phone]. Your health is important to us. If you have already made an appointment for this or have had the procedure done, please disregard this notice. Sincerely, RICHARD MORRISON Electronic Signature Electronically Signed By: RICHARD MORRISON On: July 27, 2016 This document has images extracted. Source: [facility] POWERCHART Document Id: [id number] Miscellaneous - Junie Lopez R.N. - 07/26/2016 11:48 AM CDT Med Management Document Contains Addenda Addendum by RICHARD MORRISON on July 27, 2016 09:14:29 CDT Appt letter mailed to pt Addendum by MONICA RODRIGUES RN on July 26, 2016 12:19:26 CDT From: MONICA RODRIGUES RN (TIO Marino/Stephanie Nurse (RN)) To: TIO Brown Bell Captain; Sent: 07/26/2016 12:19:26 CDT Subject: FW: Med Management Please contact patient to arrange followup visit as below. Return visit order already in chart. Thanks. Addendum by FAYE YADAV MD on July 26, 2016 12:16:51 CDT From: FAYE YADAV MD To: TIO Marino/Stephanie Nurse (RN); Sent: 07/26/2016 12:16:51 CDT Subject: RE: Med Management Addendum by FAYE YADAV MD on July 26, 2016 12:16:47 CDT Approved Order:gabapentin (gabapentin 300 mg oral capsule) 1 cap(s) PO 3xDay Qty: 90 cap(s) Refills: 0 Substitutions Allowed Route To Pharmacy - [facility] #[id number] Signed by FAYE YADAV MD 07/26/2016 12:16:42 please arrange OV if not already scheduled From: JUNIE LOPEZ RN (TIO Marino/Stephanie Nurse (RN)) To: FAYE YADAV MD; Sent: 07/26/2016 11:48:21 CDT Subject: Med Management SHARON 05/23/16. Does not meet RN refill protocol d/t out of range creatinine. Please advise, thank you. POC: IMPRESSION/REPORT/PLAN 1. Abuse Alcohol NOS Expressed my concern to patient as well as family member's concern. Advise to cut out alcohol entirely, Discussed end organ damage she has already sustainedwith the seizure and evidence of liver damage. Strongly recommend comprehensive treatment, perhaps in an inpatient setting. She states she will talk to her about this. 2. Hypertension HTN Essential Benign Not controlled. Increase amlodipine to 10mg daily. Recheck in 1 month or sooner as needed. Medications, proper use, and common and severe side effects were reviewed with the patient. 3. Abuse Tobacco NOS Congratulated patient on quitting. Nicotrol inhaler is okay to use. Added to med list. 4. Dysuria NOS UA not consistent with UTI. Ordered: Urinalysis with Culture if Indicated Sodium Lvl: 139 05/01/16 Potassium Lvl: 4.2 05/01/16 Chloride: 95 Low 05/01/16 CO2: 27 05/01/16 Glucose Fastin 10/17/15 Glucose Lvl: 96 05/01/16 Creatinine: 0.43 Low 05/01/16 Calcium Lvl: 9.8 05/01/16 BUN: 5 Low 05/01/16 EGFR (MDRD): >60 05/01/16 EGFR (MDRD): >60 05/01/16 AGAP: 17 05/01/16 On hold pending signature Order:gabapentin (gabapentin 300 mg oral capsule) 1 cap(s) PO 3xDay Qty: 90 cap(s) Refills: 0 Substitutions Allowed Route To Pharmacy - [facility] #[id number] Source: [facility] [employer] Document Id: [id number] Electronically signed by Conversion, [facility] Mural Painter [id number] at 04/20/2017 6:40 PM CDT Miscellaneous - Jesenia Dong C.M.A. - 07/17/2016 5:57 PM CDT *General Message Document Contains Addenda Addendum by JESENIA DONG CMA on July 18, 2016 10:18:50 CDT Spoke with patient and informed her of message below. Patient has already made an appt to be seen in [place]. Addendum by FAYE YADAV MD on July 18, 2016 07:27:47 CDT From: FAYE YADAV MD To: [facility] Nurse (TABITHA/MEÑO); Sent: 07/18/2016 07:27:47 CDT Subject: FW: *General Message she needs to be seen and evaluated at From: JESENIA DONG CMA To: FAYE YADAV MD; Sent: 07/17/2016 17:57:25 CDT Subject: *General Message Patient LMSG on nurse voicemail requesting prescription for, cold I had a couple months ago. It's the same symptoms when Dr. Yadav put me on the antibiotic then. Patient would like prescription sent to pharm until she can get in with you at next appt. Please advise. Source: [facility] Document Id: [id number] Electronically signed by Conversion, [facility] Mural Painter [id number] at 04/20/2017 6:40 PM CDT Miscellaneous - Faye Yadav M.D. - 05/23/2016 1:40 PM CDT Ambulatory Patient Summary [address] [id number] Visit Information Name: CHIP MAI [facility] Number: [id number] Current Date: 05/23/2016 13:40:26 Physicians Attending Provider: FAYE YADAV MD Primary [...] Wheezing use with spacer chamber amLODIPine (amLODIPine 10 mg oral tablet) 1 Tablet(s), Oral, once a day New Routed to [address] [address] aspirin (aspirin 81 mg oral delayed release [...] extended release) 1 patch(es), once a day nicotine (Nicotrol Inhaler 10 mg inhalation device) 1 puff(s), Inhalation, every 2 hours as directedon package labeling omeprazole (omeprazole) 20 mg, Oral, once a day polyethylene glycol 3350 (polyethylene glycol 3350 oral powder for reconstitution) See Instructions Mix and use as directed for colonoscopy prep. thiamine (thiamine 100 mg oral tablet) 1 Tablet(s), Oral, once a day Stop Taking the Following Medications: Medication list as of 05-23-16 13:40 Attention: If you have any medications at [...] Electronically Signed By: FAYE YADAV MD Signed On:23-MAY-2016 13:40:21 Your Allergies & Intolerances Substance Reaction Symptoms [...] 02/20/14 Symptomatic menopausal or female climacteric states Abuse Alcohol NOS Active Loss Weight Active Your Upcoming Appointments Date Time Location Provider 07/03/2016 10:45 [facility] InternFaye Foster MD Attention: Contact your local Clinic if [...] if you dont have one. Go to [email or web address] and click on Create Your Account. Then, follow the directions to complete the online form. Youll be asked for your [facility] number which you can find at the top of this document. Your Goals/Additional instructions: Source: [facility] [facility] POWERCHART Document Id: [id number] Miscellaneous - Faye Yadav M.D. - 05/23/2016 1:40 PM CDT Ambulatory Discharge Medication List [address] [id number] Visit Information Name: [facility]IP MAI [facility] Number: [id number] Visit Date: 05/23/2016 13:40:25 Attending Provider: FAYE YADAV MD Primary Care Provider: FAYE YADAV MD CHIP MAI JACQUI has been given the following list [...] Wheezing use with spacer chamber amLODIPine (amLODIPine 10 mg oral tablet) 1 Tablet(s), Oral, once a day New Routed to [place] [id number] [address] aspirin (aspirin 81 mg oral delayed release [...] extended release) 1 patch(es), once a day nicotine (Nicotrol Inhaler 10 mg inhalation device) 1 puff(s), Inhalation, every 2 hours as directedon package labeling omeprazole (omeprazole) 20 mg, Oral, once a day polyethylene glycol 3350 (polyethylene glycol 3350 oral powder for reconstitution) See Instructions Mix and use as directed for colonoscopy prep. thiamine (thiamine 100 mg oral tablet) 1 Tablet(s), Oral, once a day Stop Taking the Following Medications: Medication list as of 05-23-16 13:40 Attention: If you have any medications at [...] Electronically Signed By: FAYE YADAV MD Signed On:23-MAY-2016 13:40:21 Additional Information: Source: [facility] POWERCHART Document Id: [id number] Miscellaneous - Faye Yadav M.D. - 05/23/2016 9:57 AM CDT Results Notification Document Contains Addenda Addendum by JESENIA DONG CMA on May 23, 2016 10:58:55 CDT Spoke with patient and informed her of results. No questions at this time. From: FAYE YADAV MD To: [facility] Nurse (TABITHA/MEÑO); Sent: 05/23/2016 09:57:41 CDT Show up: 05/23/2016 09:58:00 CDT Subject: Results Notification Please call patient and let her know UA was normal, no evidence of infection. She should use the topical treatments we discussed (hydrocortisone and/or monistat) Results: Date Result Name Ind Value Ref Range 05/23/2016 09:08 UA Color Yellow (Colorless - ) 05/23/2016 09:08 UA Clarity Clear (Clear - ) 05/23/2016 09:08 UA Spec Grav 1.010 05/23/2016 09:08 UA pH 7.0 (<5.0 - ) 05/23/2016 09:08 UA Protein Negative mg/dL (Negative - ) 05/23/2016 09:08 UA Glucose Negative mg/dL (Negative - ) 05/23/2016 09:08 UA Ketones Negative mg/dL (Negative - ) 05/23/2016 09:08 UA Bili Negative (Negative - ) 05/23/2016 09:08 UA Urobilinogen 0.2 mg/dL (0.2 - ) 05/23/2016 09:08 UA Blood Negative (Negative - ) 05/23/2016 09:08 UA Nitrite Negative (Negative - ) 05/23/2016 09:08 UA Leuk Est Negative (Negative - ) 05/23/2016 09:08 UR WBC None Seen /HPF (None Seen - ) 05/23/2016 09:08 UR RBC None Seen /HPF (None Seen - ) 05/23/2016 09:08 UR Squamous Epi Cells (*) 4-10 /HPF (None Seen - ) 05/23/2016 09:08 UR Bacteria (*) Present (None Seen - ) Source: [facility] [employer] Document Id: [id number] Electronically signed by Gabriela [facility] Mural Painter [id number] at 04/20/2017 6:40 PM CDT Miscellaneous - Demetrio Hughes L.P.N. 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 Vaginal irritation, burning with urination x 3 days. Temperature Core : 36.9 DegC(Converted to: 98.4 DegF) Peripheral Pulse Rate : 78 /min Systolic Blood Pressure : 156 mmHg (HI) Diastolic Blood Pressure : 87 mmHg NIBP Mean : 110 mmHg SpO2 : 99 % Height : 160 cm(Converted to: 5 ft 3 inch(es), 63 inch(es)) Actual Weight : 59.3 kg(Converted to: 130 lb 12 oz) Dosing Weight Clinic : 59.3 kg Clinic BSA : 1.62 Body Mass Index : 23.16 kg/m2 DEMETRIO HUGHES LPN - 05/23/2016 8:48 CDT General Info Information Given By : Patient Languages : Northern Irish Is Patient Female and 13-50 no hysterectomy : No DEMETRIO HUGHES LPN - 05/23/2016 8:48 CDT Subjective Pain Symptoms : No DEMETRIO HUGHES LPN - 05/23/2016 8:48 CDT Dependent Habits Exposure to Tobacco Smoke : Patient smokes, Other: .5-1 PPD Smoking Status : Former smoker Tobacco 2A : Yes Tobacco Use/Currently Using : No Tobacco Use/Last 30 Days : No Tobacco Use/Last 12 months : Yes Tobacco Last Use/Month : March Tobacco Last Use/Year : 2015 Type : Cigarettes: Less than 20 per day Tobacco Use/Advised to Quit : Yes DEMETRIO HUGHES LPN - 05/23/2016 8:48 CDT Caffeine Use Grid Caffeine Use : Current Type : Coffee Frequency : Daily Amount : 3-4 cups DEMETRIO HUGHES LPN - 05/23/2016 8:48 CDT [email or web address] Document Id: [id number] CDT!37 documented in this encounter Plan of Treatment Upcoming Encounters Date Type Specialty Care Team Description 08/30/2022 Diagnostic Neurology Karin Ramachandran M.D., M.P.H. [address] [place] [phone] (Wo dianne) 10/10/2022 Office Visit Neurology Karin Ramachandran M.D., M.P.H[facility] [address], [place] [phone] (Howie dean) documented as of this encounter Procedures Procedure Name Priority Date/Time Associated Diagnosis Comme nts URINALYSIS, Routine 05/23/2016 9:08 AM Results f or this MIDSTREAM, WITH CDT procedure ar e in CULTURE IF the results INDICATED section. documented in this encounter Results (ABNORMAL) Urinalysis, Midstream, with culture if indicated (05/23/2016 9:08 AM CDT) [facility] gist Method Time Signature Clarity Clear Clear POWERCHART HXUr Color Yellow Colorless POWERCHART Glucose Negative Negative POWERCHART MGDL HXBILIRUBIN Negative Negative POWERCHART Ketones, QL(U) Negative Negative POWERCHART MGDL Specific 1.010 POWERCHART Rattan, POCT, U HXBLOOD Negative Negative POWERCHART pH, POCT, Urine 7.0 <5.0 POWERCHART Protein, Ur, Negative Negative POWERCHART Dip MGDL Urobilinogen 0.2 0.2 MGDL POWERCHART HXNITRITE Negative Negative POWERCHART Leukocyte Negative Negative POWERCHART Esterase HXUR WBC. None Seen None Seen POWERCHART HPF HXUR RBC. None Seen None Seen POWERCHART HPF Squamous 4-10 (A) None Seen POWERCHART Epithelial HPF HXUR Bacteria, Present (A) None Seen POWERCHART Comment: Few bacteria present. Specimen (Source) Anatomical Collection Method Collection Time Re ceived Time Location / / Volume Laterality Urine, First 05/23/2016 9:08 AM Voided CDT Faye M Daligga M.D. LAB URINE ORDERABLES Performing Organization Address City/State/ZIP Code Phon e Number POWERCHART documented in this encounter Visit Diagnoses Not on filedocumented in this encounter Additional Health Concerns Assessment Noted Time PHQ-9 Depression Total Score: 5 05/01/2016 10:23 AM CD T documented as of this encounter
--- OUTSIDE RECORDS SUMMARY | 2022-08-29 10:31 | XMS_ITS | Encounter Summary ---
:1960 Author Organization [facility] Address [address] [place] [address] Care Team Providers Name Role Phone Unavailable Primary Care Provider Unavailable Encounter Details Date Type Department Care Team Description 03/20/2017 Hospital Encounter HX [facility] Aurelia Fernández M.D. [address] [place] [address] (Wo rk) Social History Tobacco Use Types Packs/Day Years Used Date Smoking Tobacco: Every Day Sex Assigned at Date Recorded Female 07/10/2022 7:32 AM CDT documented as of this encounter Last Filed Vital Signs Vital Sign Reading Time Taken Comments Blood Pressure 135/84 03/20/2017 1:12 PM CDT Pulse 92 03/20/2017 1:12 PM CDT Temperature - - Respiratory Rate - - Oxygen Saturation - - Inhaled Oxygen Concentration - - Weight 61.1 kg (134 lb 11.2 oz) 03/20/2017 1:12 PM CDT Height 160 cm (5' 2.99) 03/20/2017 1:12 PM CDT Body Mass Index 23.87 03/20/2017 1:12 PM CDT documented in this encounter Medications [...] tablet daily. documented as of this encounter Progress Notes Faye Yadav M.D. - 03/20/2017 12:35 PM CDT [id number] CHIEF COMPLAINT / REASON FOR VISIT Med refills. HISTORY OF PRESENT ILLNESS Chip is a 56-year-old female who presents to the clinic today for medication refills for hypothyroidism, alcohol abuse, and tobacco abuse. She tells us that her has been diagnosed with leukemia about 5 weeks ago and is being treated at [facility]. This has been a major stressorin her life and attributes changes such as overeating. Patient states that she felt like she was doing well before this happened. In regards to her tobacco cessation, she tells us that she had skin sensitivity with her nicotine patches. She is interested in continuing with this but she has had difficulty avoiding cigarettes without the patches. She was able to stay quit for 3-4 months before she started again. Patient notes thatgianfrancoe cheated on her quit plan and was then around people who smoke regularly. Her cessation has been all the more difficult with the stress of her husbands treatment. From the standpoint of her alcohol abuse, patient continues to have about 4-6 servings of alcohol every few nights. This is reduced from her previous drinking habits. Chip will occupy herself with other habits to avoid drinking such as stitching and crosswords. She did have an alcohol withdrawal seizure about a year ago, but none since. She remains on gabapentin, which was started in the setting of post alcohol withdrawal seizure. She found that it helped with her anxiety as she tried to decreasealcohol consumption and has continued on. She has not had significant sedation or other concerns. She has been controlling her hypertension with amlodipine 10 mg and has been compliant. She has not been checking her blood pressure at home. She denies any CP, VILLAFANA, BAUER, vision change, edema, orthopnea, or PND. Patient uses omeprazole whenever she knows she will be eating a spicy meal. She also mentions that she has been having issues with salt and kale. Chip is uncertain how often exactly she has been using omeprazole, stating that is depends on her cooking. She does note some pain in the metacarpals of her right hand and attributes this to her frequent stitching. Patient has been wearing a wrist brace at night and feels that this pain has been improving. She has been diagnosed carpal tunnel which was treated operatively on the left and she has not required surgical treatment on the right with use of the brace and gabapentin. She has been compliant with her levothyroxine but she is out of medications at this time. She is hoping to get her blood drawn today but did take her multi vitamin about 8 hours ago. She feels her levothyroxine dose has been stable and seems appropriate for her. She denies any symptoms of overt hypo thyroidism or hyperthyroidism. There are no further concerns at this time. REVIEW OF SYSTEMS Please see HPI for pertinent positives, otherwise rest of ROS negative. CURRENT MEDICATIONS Nicoderm 21 mg/23 hour transdermal film, extended release. Nicotrol Inhaler 10 mg inhalation device. Amlodipine 10 mg oral tablet. Loratadine 10 mg oral tablet. Thiamine 100 mg oral tablet. Albuterol CFC free 90 mcg/inh inhalation aerosol. Omeprazole. Gabapentin 300 mg oral capsule. Folic acid 0.4 mg oral tablet. Levothyroxine 88 mcg oral tablet. EpiPen 2-Reg 0.3 mg injectable kit. Aspirin 81 mg oral delayed release capsule. Calcium 600 + D. Ibuprofen 200 mg oral capsule. Polyethylene glycol 3350 oral powder for reconstitution. Multivitamin with minerals. Bisacodyl 5 mg oral delayed release tablet. ALLERGIES Latex. VITAL SIGNS HEIGHT: 160 cm. WEIGHT: 61.1 kg. BMI: 23.87 kg/m2. PULSE: 92 /min. SYSTOLE: 135 mmHg. DIASTOLE: 84 mmHg. PHYSICAL EXAM GENERAL: Patient is comfortable, cooperative and in no distress. Appears older than stated age. HEENT: Moist mucosa, no oral lesions, pharynx not inflamed. Ear canals normal and TMs normal. NECK: Supple, no lymphadenopathy or thyromegaly, no carotid bruits HEART: Normal rate and rhythm. No murmurs, rubs or gallops. LUNGS: Clear to auscultation. No wheeze, crackles or rhonchi noted. Normal work of breathing. No cough noted. ABDOMEN: Soft, nontender, nondistended. No hepato-splenomegaly or masses. EXT: No cyanosis, clubbing or edema. SKIN: No rashes or suspicious lesions PSYCH: Oriented. Mentation intact. Normal speech, euthymic mood, and appropriate affect. IMPRESSION / REPORT / PLAN 1. Alcohol abuse. The patient was counseled to cut down further on her alcohol intake, preferably toabstain from alcohol given the previous and anticipated consequences of this. She still seems to have some element of minimization or denial that she has a problem with alcohol, despite family members concerns and prior alcohol withdrawal seizure. I refilled her gabapentin today. 2. Tobacco abuse. Smoking cessation counseling was completed. I encouraged her to try using her patches again and apply cortisone topical cream to areas that break out. We discussed barriers that may keep her from abstaining from tobacco and how to deal with them. 3. Hypertension, controlled. I refilled her Amlodipine 10 mg oral tablet. 4. Hypothyroidism. Check TSH today. I will refill her levothyroxine accordingly. 5. Reflux. I refilled her omeprazole 20 mg oral delayed release tablet. We discussed diet and weightmanagement. 6. Health maintenance. She will return tomorrow for CBC, CMP, TSH, and Hepatitis C screening. She will contact her insurance regarding colonoscopy coverage. Patient mentions that she is interested in getting her through his treatment before she commits to colon cancer screening. She will followup in 1 year or sooner if needed. This document serves as a record of services personally performed by Faye Yadav MD. It was created on their behalf by Curly Brownlee, a trained medical assembler. The creation of this record is based on the scribe's personal observations and the provider's statements to them. This document has been checked and approved by the attending provider. Faye Yadav M.D./carrie Electronically Signed By: FAYE YADAV MD On: 03/20/2017 07:26 PM Modified by and Electronically Signed by: FAYE YADAV MD On: 03/20/2017 07:26 PM Source: [facility] MHSDOLBEYNONRADSYS Document Id: [id number] Addendum by FAYE YADAV MD on March 20, 2017 19:28 CDT Past medical history, social history, and family history are reviewed and updated in the electronichealth record. Modified by and Electronically Signed by: FAYE YADAV MD On: 03/20/2017 07:28 PM Source: [facility] POWERCHART Document Id: [id number] Addendum by FAYE YADAV MD on March 20, 2017 19:28 CDT Past medical history, social history, and family history are reviewed and updated in the electronichealth record. Modified by and Electronically Signed by: FAYE YADAV MD On: 03/20/2017 07:28 PM Source: [facility] Measurement AnalyticsCHART Document Id: [id number] documented in this encounter Miscellaneous Notes Miscellaneous - Susanne Pompa R.N. - 06/19/2017 3:44 PM CDT Med Management Document Contains Addenda Addendum by SHENG WHYTE on June 25, 2017 18:17:16 CDT noted. thanks! Addendum by MARCO ANTONIO RANDLE LPN on June 25, 2017 16:11:48 CDT From: MARCO ANTONIO RANDLE LPN ([facility] Nurse (SURGICAL INSTRUMENTS INSPECTOR/[facility])) To: TIO Brown Social Insurance Specialist; Sent: 06/25/2017 16:11:48 CDT Subject: FW: Med Management Addendum by FAYE YADAV MD on June 25, 2017 12:43:48 CDT From: FAYE YADAV MD To: [facility] Nurse (SURGICAL INSTRUMENTS INSPECTOR/ASSOCIATE PROFESSOR OF COMMUNICATION); Sent: 06/25/2017 12:43:48 CDT Subject: RE: Med Management Addendum by FAYE YADAV MD on June 25, 2017 12:43:43 CDT 01/2018 is fine. Thanks. Addendum by MARCO ANTONIO RANDLE LPN on June 25, 2017 10:38:15 CDT From: MARCO ANTONIO RANDLE LPN ([facility] Nurse (SURGICAL INSTRUMENTS INSPECTOR/ASSOCIATE PROFESSOR OF COMMUNICATION)) To: FAYE YADAV MD; Sent: 06/25/2017 10:38:15 CDT Subject: FW: Med Management Addendum by MARCO ANTONIO RANDLE LPN on June 25, 2017 10:37:24 CDT unable to assess. will route to PCP. Addendum by SHENG WHYTE on June 25, 2017 08:13:17 CDT From: SHENG WHYTE ([facility] Social Insurance Specialist) To: [facility] Nurse (TABITHA/ASSOCIATE PROFESSOR OF COMMUNICATION); Sent: 06/25/2017 08:13:17 CDT Subject: RE: Med Management order in chart states pt isn't due until 01/2018. does she need the follow up now? just double checking. i'm happy to call her if she truly does need the follow up now. Addendum by RICHARD MORRISON on June 20, 2017 11:20:13 CDT called pt, bernie herrera. Addendum by MICHAEL GUILLAUME R.N. on June 20, 2017 08:10:33 CDT From: MICHAEL GUILLAUME R.N. ( Elan/Key/Matt Team Nurse (RN)) To: [place] Social Insurance Specialist; Sent: 06/20/2017 08:10:33 CDT Subject: FW: Med Management Please schedule patient for follow up. Addendum by FAYE YADAV MD on June 19, 2017 16:46:08 CDT From: FAYE YADAV MD Sent: 06/19/2017 16:46:08 CDT Subject: RE:Med Management Approved with modifications: Order:gabapentin (gabapentin 300 mg oral capsule) 1 cap(s) PO 3xDay Qty: 90 cap(s) Refills: 0 Substitutions Allowed Route To [id number] Signed by FAYE YADAV MD 06/19/2017 16:46:01 overdue for f/u please arrange From: SUSANNE POMPA RN (TIO Ansari/Key/Matt Team Nurse (RN)) To: FAYE YADAV MD; Sent: 06/19/2017 15:44:33 CDT Subject: Med Management On hold pending signature Order:gabapentin (gabapentin 300 mg oral capsule) 1 cap(s) PO 3xDay Qty: 90 cap(s) Refills: 1 Substitutions Allowed Route To [id number] NOT REVIWED BY RN PROTOCOL 24hr SURGE Source: [facility] POWERCHART Document Id: [id number] Telephone Encounter - Conversion, Historical Provider Ser - 05/15/2017 2:02 PM CDT *Phone Message Document Contains Addenda Addendum by JOSH EDWARDS LPN on May 15, 2017 16:08:45 CDT tried to call pt, unable to leave message,. line busy. Addendum by FAYE YADAV MD on May 15, 2017 15:57:37 CDT From: FAYE YADAV MD Sent: 05/15/2017 15:57:37 CDT Subject: RE:FW: *Phone Message Approved Order:levothyroxine (levothyroxine 88 mcg (0.088 mg) oral tablet) 1 tab(s) PO Daily Qty: 30 tab(s) Refills: 11 Substitutions Allowed Route To [id number] Signed by FAYE YADAV MD 05/15/2017 15:57:30 Addendum by ATTILA BARON CMA on May 15, 2017 14:30:11 CDT From: ATTILA BARON CMA ([facility] Nurse ([facility])) To: FAYE YADAV MD; Sent: 05/15/2017 14:30:11 CDT Subject: FW: *Phone Message Last office visit 03/20/17, Please review and advise. Addendum by ATTILA BARON CMA on May 15, 2017 14:29:20 CDT On hold pending signature Order:levothyroxine (levothyroxine 88 mcg (0.088 mg) oral tablet) 1 tab(s) PO Daily Qty: 30 tab(s) Refills: 11 Substitutions Allowed Route To Pharmacy - [id number] TSH: 0.94 mIU/L (03/26/17) From: RICHARD MORRISON ([facility] Social Insurance Specialist) To: [facility] Nurse (SURGICAL INSTRUMENTS INSPECTOR/MEÑO); Sent: 05/15/2017 14:02:00 CDT Subject: *Phone Message Caller is: (x ) Patient ( ) Mother ( ) Father ( ) Spouse ( ) Daughter ( ) Son ( ) Pharmacy ( ) Other: Physician: Patient MRN #: Reason for Call: Message: Pt was seen last month but her Synthroid was never renewed. Advice/Action: Source used: ( ) Verbalizes understanding [...] back cell phone number ( ) Source: [facility] POWERCHART Document Id: [id number] Telephone Encounter - Conversion, Historical Provider Ser - 03/28/2017 11:39 AM CDT *Phone Message Document Contains Addenda Addendum by MARCO ANTONIO RANDLE LPN on March 28, 2017 11:45:44 CDT From: MARCO ANTONIO RANDLE LPN ([facility] Nurse (SURGICAL INSTRUMENTS INSPECTOR/ASSOCIATE PROFESSOR OF COMMUNICATION)) To: SHANTELL REVELES PA-C; Sent: 03/28/2017 11:45:44 CDT Subject: FW: *Phone Message Please advise in PCP absense. Addendum by MARCO ANTONIO RANDLE LPN on March 28, 2017 11:45:02 CDT Patient had labs done on March 26. TSH was 0.94 From: SHENG WHYTE ([facility] Social Insurance Specialist) To: [facility] Nurse (SURGICAL INSTRUMENTS INSPECTOR/ASSOCIATE PROFESSOR OF COMMUNICATION); Sent: 03/28/2017 11:39:05 CDT ! Subject: *Phone Message Caller is: ( x ) Patient ( ) Mother ( ) Father ( ) Spouse ( ) Daughter ( ) Son ( ) Pharmacy ( ) Other: Physician: Dr. Yadav Patient MRN #: Reason for Call: RESULTS Message: pt called looking for her TSH results. should she refill her current dose? Advice/Action: please call her NATHALIE at [phone]. Source used: ( ) Verbalizes understanding of [...] back cell phone number ( ) Source: [facility] POWERCHART Document Id: [id number] Miscellaneous - Faye Yadav M.D. - 03/20/2017 7:29 PM CDT Ambulatory Patient Summary Delfino Brown [address] [place] [id number] Visit Information Name: CARMENCHIP WHITING JACQUI [facility] Number: [id number] Current Date: 03/20/2017 19:29:32 Physicians Attending Provider: FAYE YADAV MD Primary [...] breath / Wheezing use with spacer chamber Routed to [address] [address] amLODIPine (amLODIPine 10 mg oral tablet) 1 Tablet(s), Oral, once a day Routed to [address] [address] aspirin (aspirin 81 mg oral delayed release capsule) See Instructions 1 CAPSULE DAILY bisacodyl (bisacodyl 5 mg oral delayed release tablet) See Instructions take all four tabs with 8 ozof fluid as instructed by colonoscopy prep instructions calcium-vitamin D (Calcium 600+D) See Instructions 1 TABLET DAILY EPINEPHrine (EpiPen 2-Reg 0.3 mg injectable kit) Intramuscular, once PRN This is a CHANGE EPINEPHrine (EPINEPHrine 0.3 mg injectable kit) 0.3 mg, Intramuscular, as directed as needed for Other - per order comments Bee Sting This is a CHANGE Routed to [address] [address] folic acid (folic acid 0.4 mg oral tablet) 400 mcg, Oral, once a day Routed to [address] [address] gabapentin (gabapentin 300 mg oral capsule) 1 cap, Oral, three times a day Routed to [address] [address] ibuprofen (ibuprofen 200 mg oral capsule) See Instructions 2 tabs and limits to 4 daily levothyroxine (levothyroxine 88 mcg (0.088 mg) oral tablet) 1 Tablet(s), Oral, once a day loratadine (loratadine 10 [...] (omeprazole) 20 mg, Oral, once a day omeprazole (omeprazole 20 mg oral delayed release tablet) 1 Tablet(s), Oral, once a day as needed for Heartburn 30-60 minutes before trigger food Routed to [address] [address] polyethylene glycol 3350 (polyethylene glycol 3350 oral powder for reconstitution) See Instructions Mix and use as directed for colonoscopy prep. thiamine (thiamine 100 mg oral tablet) 1 Tablet(s), Oral, once a day Routed to [address] [address] Stop Taking the Following Medications: Medication list as of 03-20-17 19:29 Attention: If you have any medications at [...] Electronically Signed By: FAYE YADAV MD Signed On:20-MAR-2017 19:29:25 Your Allergies & Intolerances Substance Reaction Symptoms [...] Your Upcoming Appointments Date Time Location Provider 03/21/2017 10:00 [facility] Attention: Contact your local Clinic if further [...] if you dont have one. Go to [email or web address] and click on Create Your Account. Then, follow the directions to complete the online form. Youll be asked for your [facility] number which you can find at the top of this document. Your Goals/Additional instructions: Source: [facility] POWERCHART Document Id: [id number] Miscellaneous - Faye Yadav M.D. - 03/20/2017 7:29 PM CDT Ambulatory Discharge Medication List [address] [id number] Visit Information Name: SERGEI CHIP JACQUI [facility] Number: [id number] Current Date: 03/20/2017 19:29:30 Attending Provider: FAYE YADAV MD Primary Care Provider: FAYE YADAV MD SANDINIESHAJOHANNE CHIP OSMAN has been given the following list of [...] breath / Wheezing use with spacer chamber Routed to [address] [address] amLODIPine (amLODIPine 10 mg oral tablet) 1 Tablet(s), Oral, once a day Routed to [address] [address] aspirin (aspirin 81 mg oral delayed release capsule) See Instructions 1 CAPSULE DAILY bisacodyl (bisacodyl 5 mg oral delayed release tablet) See Instructions take all four tabs with 8 ozof fluid as instructed by colonoscopy prep instructions calcium-vitamin D (Calcium 600+D) See Instructions 1 TABLET DAILY EPINEPHrine (EpiPen 2-Reg 0.3 mg injectable kit) Intramuscular, once PRN This is a CHANGE EPINEPHrine (EPINEPHrine 0.3 mg injectable kit) 0.3 mg, Intramuscular, as directed as needed for Other - per order comments Bee Sting This is a CHANGE Routed to [address] [place] [address] folic acid (folic acid 0.4 mg oral tablet) 400 mcg, Oral, once a day Routed to [address] [address] gabapentin (gabapentin 300 mg oral capsule) 1 cap, Oral, three times a day Routed to [address] [address] ibuprofen (ibuprofen 200 mg oral capsule) See Instructions 2 tabs and limits to 4 daily levothyroxine (levothyroxine 88 mcg (0.088 mg) oral tablet) 1 Tablet(s), Oral, once a day loratadine (loratadine 10 [...] (omeprazole) 20 mg, Oral, once a day omeprazole (omeprazole 20 mg oral delayed release tablet) 1 Tablet(s), Oral, once a day as needed for Heartburn 30-60 minutes before trigger food Routed to [address] [address] polyethylene glycol 3350 (polyethylene glycol 3350 oral powder for reconstitution) See Instructions Mix and use as directed for colonoscopy prep. 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 Entered On: 03/20/2017 13:13 CDT Performed On: 03/20/2017 13:12 CDT by MAMI SALDAÑA [facility] Intake Chief Complaint : medication refills mammogram completed Peripheral Pulse Rate : 92 /min Systolic Blood Pressure : 135 mmHg Diastolic Blood Pressure : 84 mmHg NIBP Mean : 101 mmHg Height : 160 cm(Converted to: 5 ft 3 inch(es), 63 inch(es)) Actual Weight : 61.1 kg(Converted to: 134 lb 11 oz) Dosing Weight Clinic : 61.1 kg Clinic BSA : 1.65 Body Mass Index : 23.87 kg/m2 MAMI SALDAÑA [facility] - 03/20/2017 13:12 CDT General Info Information Given By : Patient Languages : Bruneian Is Patient Female and 13-50 no hysterectomy : No MAMI SALDAÑA [facility] - 03/20/2017 13:12 CDT Subjective Pain Symptoms : No MAMI SALDAÑA [facility] - 03/20/2017 13:12 CDT Dependent Habits Exposure to Tobacco Smoke : Patient smokes, Other: .5-1 PPD Smoking Status : Current every day smoker Tobacco 2A : Yes Tobacco Use/Currently Using : Yes Tobacco Use/Last 30 Days : Yes Tobacco Use/Last 12 months : Yes Tobacco Last Use/Month : May Tobacco Last Use/Year : 2015 Type : Cigarettes: Less than 20 per day Tobacco Use/Advised to Quit : Yes Alcohol Use : Yes MAMI SALDAÑA CMA - 03/20/2017 13:12 CDT Caffeine Use Grid Caffeine Use : Current Type : Coffee Frequency : Daily Amount : 3-4 cups MAMI SALDAÑA ASSOCIATE PROFESSOR OF COMMUNICATION - 03/20/2017 13:12 CDT Source: [facility] POWERCHART Document Id: [id number] CDT!36 [place] - Mami Saldaña C.M.A. - 03/20/2017 1:11 PM CDT PHQ-9 PHQ-9 Entered On: 03/20/2017 13:12 CDT Performed On: 03/20/2017 13:11 CDT by MAMI SALDAÑA CMA PHQ-9 Little interest or pleasure in doing things : Not at all Feeling down, depressed, or hopeless : Several days Trouble falling or staying asleep, or sleeping [...] Not at all PHQ-9 Calculated Score : 6 Problems make work, home, or dealing with others : Not difficult at all MAMI SALDAÑA [facility] - 03/20/2017 13:11 CDT [facility] Document Id: [id number] CDT!13 Sean - Mami Saldaña C.MLaw - 03/20/2017 1:10 PM CDT Health Assessment Health Assessment Entered On: 03/20/2017 13:11 CDT Performed On: 03/20/2017 13:10 CDT by MAMI SALDAÑA CMA Health Assessment Complete Health Assessment Complete or Modified : Annual Health Assessment Annual Health Assessment Completed : Yes MAMI SALDAÑA CMA - 03/20/2017 13:10 CDT Nutrition Nutrition Risk Factors by History Adult : None MAMI SALDAÑA CMA - 03/20/2017 13:10 CDT Functional Current Daily Living Assistance : None MAMI SALDAÑA CMA - 03/20/2017 13:10 CDT Dependent Habits Exposure to Tobacco Smoke : Patient smokes, Other: .5-1 PPD Smoking Status : Current every day smoker Tobacco 2A : Yes Tobacco Use/Currently Using : Yes Tobacco Use/Last 30 Days : Yes Tobacco Use/Last 12 months : Yes Tobacco Last Use/Month : March Tobacco Last Use/Year : 2015 Type : Cigarettes: Less than 20 per day Tobacco Use/Advised to Quit : Yes Alcohol Use : Yes MAMI SALDAÑA [facility] - 03/20/2017 13:10 CDT Caffeine Use Grid Caffeine Use : Current Type : Coffee Frequency : Daily Amount : 3-4 cups MAMI SALDAÑA [facility] - 03/20/2017 13:10 CDT AUDIT Tool How Often Do You Have A Drink : 4 or more times a week How Many Drinks in a Day When Drinking : 3 or 4 Six or More Drinks On One Occassion : Never Audit Phase 1 Score : 5 MAMI SALDAÑA [facility] - 03/20/2017 13:10 CDT Psychosocial Domestic Abuse Concerns : None Behavioral Health Screen/Safety Assmt : No Synagogue Preference : Unknown MAMI SALDAÑA [facility] - 03/20/2017 13:10 CDT Advance Directive Advanced Directives : No Advance Directive Additional Information : No MAMI SALDAÑA [facility] - 03/20/2017 13:10 CDT Educ Needs Learning Style Preference Adult Grid Patient : None Family : None MAMI SALDAÑA [facility] - 03/20/2017 13:10 CDT [facility] P[facility]ART Document Id: [id number] CDT!42 documented in this encounter Plan of Treatment Upcoming Encounters Date Type Specialty Care Team Description 08/30/2022 Diagnostic Neurology Karin Ramachandran M.D., M[facility]P.[facility] [address] [place] [phone] (Howie dean) 10/10/2022 Office Visit Neurology Karin Ramachandran M.D., M.P.H[facility] [address] [place] [phone] (Howie dean) documented as of this encounter Visit Diagnoses Not on filedocumented in this encounter Additional Health Concerns Assessment Noted Time PHQ-9 Depression Total Score: 6 03/20/2017 1:11 PM CDT documented as of this encounter
--- OUTSIDE RECORDS SUMMARY | 2022-08-29 10:31 | XMS_ITS | Encounter Summary ---
:1960 Author Organization [facility] Address [address] [place] [address] Care Team Providers Name Role Phone Faye Liao M.D. Primary Care Provider Encounter Details Date Type Department Care Team Description 09/24/2018 Orders Only Department of [facility] Faye Liao M.D. Internal Medicine in [address] [place] [phone] [facility] [place] [address] [phone] Social History Tobacco Use Types Packs/Day Years Used Date Smoking Tobacco: Heavy Smoker Sex Assigned at Date Recorded Female 07/10/2022 7:32 AM CDT documented as of this encounter Plan of Treatment Upcoming Encounters Date Type Specialty Care Team Description 08/30/2022 Diagnostic Neurology Karin Ramachandran M.D., M.P.H. [address] [place], [place] [phone] (Wo rk) 10/10/2022 Office Visit Neurology Karin Ramachandran M.D., M.P.H. [address] [place], [place] [phone] (Wo rk) documented as of this encounter Visit Diagnoses Not on filedocumented in this encounter Additional Health Concerns Assessment Noted Time PHQ-9 Depression Total Score: 6 03/20/2017 1:11 PM CDT documented as of this encounter Care Teams Annealing Torch Operator Relationship Specialty Start Date End Date Faye Liao M.D. PCP - General 05/09/17 01/14/20 [address] [place] [address] documented as of this encounter
--- OUTSIDE RECORDS SUMMARY | 2022-08-29 10:31 | XMS_ITS | Encounter Summary ---
:1960 Author Organization [facility] Address [address] [place] [address] Care Team Providers Name Role Phone Faye Liao M.D. Primary Care Provider Reason for Visit Reason Comments Med Refill Encounter Details Date Type Department Care Team Description 04/04/2018 Refill Department [facility] Faye Liao M.D. Med Refill Internal Medicine in [place], [address] [place] [address] [facility] [place] [address] [phone] Social History Tobacco Use Types Packs/Day Years Used Date Smoking Tobacco: Heavy Smoker Sex Assigned at Date Recorded Female 07/10/2022 7:32 AM CDT documented as of this encounter Plan of Treatment Upcoming Encounters Date Type Specialty Care Team Description 08/30/2022 Diagnostic Neurology Karin Ramachandran M.D., M.P.H. [address] [place] [phone] (Howie rk) 10/10/2022 Office Visit Neurology Karin Ramachandran M.D., M.P.H. [address] [place] [phone] (Howie rk) documented as of this encounter Visit Diagnoses Not on filedocumented in this encounter Additional Health Concerns Assessment Noted Time PHQ-9 Depression Total Score: 6 03/20/2017 1:11 PM CDT documented as of this encounter Care Teams Biomedical Field Service Engineer Relationship Specialty Start Date End Date Faye Liao M.D. PCP - General 05/09/17 01/14/20 [address] [place] [address] documented as of this encounter
--- OUTSIDE RECORDS SUMMARY | 2022-08-29 10:32 | XMS_ITS | Encounter Summary ---
:1960 Author Organization [facility] Address [address] [place] [address] Care Team Providers Name Role Phone Unavailable Primary Care Provider Unavailable Encounter Details Date Type Department Care Team Description 12/17/2012 Hospital Encounter HX [facility] Aurelia Núñez M.D. [address] [place] [address] (Howie dean) Social History Tobacco Use Types Packs/Day Years Used Date Smoking Tobacco: Never Assessed Sex Assigned at Date Recorded Female 07/10/2022 7:32 AM CDT documented as of this encounter Plan of Treatment Upcoming Encounters Date Type Specialty Care Team Description 08/30/2022 Diagnostic Neurology Karin Ramachandran M.D., M.P.H. [address] [phone] (Howie dean) 10/10/2022 Office Visit Neurology Karin Ramachandran M.D., M.P.H. [address] [phone] (Howie rk) documented as of this encounter Visit Diagnoses Not on filedocumented in this encounter
--- OUTSIDE RECORDS SUMMARY | 2022-08-29 10:32 | XMS_ITS | Encounter Summary ---
:1960 Author Organization [facility] Address [address] [place] [address] Care Team Providers Name Role Phone Unavailable Primary Care Provider Unavailable Encounter Details Date Type Department Care Team Description 11/26/2011 Hospital Encounter HX [facility] Aurelia Núñez M.D. [address] [place] [address] (Wo rk) Social History Tobacco Use Types Packs/Day Years Used Date Smoking Tobacco: Never Assessed Sex Assigned at Date Recorded Female 07/10/2022 7:32 AM CDT documented as of this encounter Progress Notes Conversion, Historical Provider Ser - 11/26/2011 2:30 PM CST [id number] Addended by: OLAF RÍOS on: 11/26/2011 Modules accepted: Orders, SmartSet Source: [facility] Document Id: [id number] Faye Liao M.D. - 11/26/2011 2:30 PM CST [id number] Zandra Lopez is here for follow up of HTN, hypothyroidism, and osteopenia. Other concerns today include none. HYPERTENSION: The patient has a history of hypertension of moderate severity and long standing duration. Patients blood pressures have been in the normal range. Current treatment includes calcium channel galindo. Patient denies any symptoms, including CP, VILLAFANA, BAUER, vision change, edema, orthopnea or PND. Last labs: POTASSIUM 3.6 09/01/2010 CR 0.75 09/01/2010 Last cholesterol tests. CHOL 214 09/01/2010 TRIG 111 09/01/2010 HDL 96 09/01/2010 LDL 95 09/01/2010 Hypothyroidism: Denies weight changes, depression, constipation, tremor or other concerns. Has been compliant with her replacement therapy. Your thyroid (TSH) blood test: TSH 3.56 09/01/2010 normal range: 0.34-4.82 Osteopenia: Has been on bisphosphonate for 5 years with no followup DEXA scan. She actually has not remembered to take her actonel for the last 3 months. She has not had any further fractures while on this medication. She has been taking calcium supplementation and tries to remember it but forgets some days--remembers it 3 days per week. Insomnia: She has been taking Ambien as needed. Past Medical History Diagnosis Date Carpal tunnel syndrome Unspecified essential hypertension Essential hypertension Unspecified hypothyroidism Hypothyroidism Absence of menstruation 2002 Allergies Allergen Reactions Latex rash, hives Medications as of 11/26/2011: Current outpatient prescriptions Medication Sig amLODIPine (NORVASC) 10 MG tablet Take 1 tablet by mouth daily. zolpidem (AMBIEN) 10 MG tablet Take 1 tablet by mouth nightly as needed for sleep. at bedtime. levothyroxine (SYNTHROID, LEVOTHROID) 88 MCG tablet Take 1 tablet by mouth daily. ACTONEL 150 MG PO TABS 1 TABLET MONTHLY 30 MIN BEFORE MEAL WITH WATER MIRALAX PO POWD 255 grams - Per Instructions - order with 4 Bisacodyl tabs as directed BISACODYL 5 MG PO TBEC 4 tabs as directed IBUPROFEN 200 MG OR CAPS 2 tabs and limits to 4 daily CALCIUM + D OR 1 TABLET DAILY ASPIRIN 81 MG OR CPEP 1 CAPSULE DAILY MULTI-DAY/CALCIUM/EXTRA IRON OR None Entered History Social History Marital Status: Spouse Name: denis Number of Children: 1 Years of Education: N/A Occupational History Not on file. Social History Main Topics Smoking status: Current Everyday Smoker -- 1.0 packs/day for 20 years Smokeless tobacco: Not on file Comment: 1 pack per day, 11/26/11 cut back to 1/2 pack aday Alcohol Use: Yes social--6 beers/week Drug Use: No Sexually Active: Yes -- Male partner(s) menopausal-decreased libido Other Topics Concern Not on file Social History Narrative No narrative on file Family History Problem Relation Age of Onset Allergies Mother Allergies Sister Arthritis Sister self Cancer Father skin Cancer Paternal Aunt unknown location Hypertension Sister Hypertension Father Stroke Father age 74 (has had multiple) Breast CA Paternal Aunt and her 2 daughters ROS: Constitutional: negative for weight loss, fevers, or chills Cardiovascular: negative for CP, VILLAFANA. Exercises regularly. Respiratory: negative for cough, wheeze GI: negative for abd pain, N/V/D/constipation, or heartburn : negative for hematuria, dysuria Skin: negative for rash or sores Endocrine: negative for heat/cold intolerance or hair changes, polyuria or polydipsia Neurologic: negative for BAUER, dizziness, weakness, numbness or tingling Musculoskeletal: negative for significant arthralgias or myalgias Psych: negative. Mood normal. Wants to quit smoking. BP 120/80 Pulse 74 Temp(Src) 98.4 ??F (36.9 ??C) (Temporal) Ht 1.6 m (5' 3) Wt 65.318 kg (144 lb) BMI 25.51 kg/m2 General: alert, NAD, healthy appearance Skin: normal without rash or lesion suspicious for malignancy HEENT: Eyes PERRL, EOMI Ears: normal TMs and canals b/l Nose: no discharge Throat: Moist mucosa, no lesions Neck: supple, no lymphadenopathy, no JVD, thyroid smooth without nodules or enlargement Lungs: clear bilaterally, normal work of breathing, no w/r/r CV: regular rate and rhythm, normal S1 and S2, no murmurs, rubs, or gallops, no carotid bruits, peripheral pulses +2 in 4 extremities Abd: soft, nontender, nondistended, normoactive bowel sounds, no hepatosplenomegaly or masses Ext: no edema, clubbing, or cyanosis Psych: normal speech and affect ASSESSMENT/PLAN: 1) HTN: Well controlled. Continue amlodipine. Discussed principles of mgt including exercise (moderate aerobic with slowly increasing goals), diet (reduced sodium), and stress reduction. Check ambulatory BP twice a week and call if consistently over 135/85. Will check Cr, K today. 2) Hypothyroidism: Clinically euthyroid today. Has been well controlled on replacement medical management. Check TSH today and adjust as needed. 3) Osteopenia: Discussed use of bisphosphonates, idea of holiday off for 3-5 years after 5 years of effective therapy. Trial holiday off of alendronate, after DEXA scan. Continue 4) Preventive: declines flu shot. Needs to schedule colonoscopy--wants to wait until convenient for her 's job. Mammogram. 5) Insomnia: Trial of lunesta--printed rx and she will check on insurance coverage before filling. Left Ambien on her list as well--if lunesta not affordable will go back to ambien and request refill. 6) Tobacco use d/o: Trial of wellbutrin, discussed use, counseled on strategy (wait at least 2 weeksbefore quit date), and side effects vs benefits. [place] depressed on chantix in the past, has not beenon wellbutrin before. Return to clinic in 12 months or sooner if new or worsening symptoms. Source: [facility] Document Id: [id number] documented in this encounter Miscellaneous Notes Miscellaneous - Conversion, Historical Provider Ser - 11/26/2011 2:30 PM AUTOMOTIVE WELDER [id number] 11/28/2011 Zandra Taylor [facility] [address] [facility] [address] [facility] Dear Zandra: Thank you for allowing me to participate in your care. Your recent test results were reviewed and listed below. Your results are provided below for your review Your Basic metabolic lab results: NA 141 11/26/2011 (desirable 133-144) POTASSIUM 5.0 11/26/2011 (desirable 3.4-5.3) GLC 84 11/26/2011 (normal value without eating is below 100; concerning if greater than 126 while fasting) BUN 17 11/26/2011 (kidney function test and for hydration; desirable 7-30) CR 0.70 11/26/2011 (kidney function test; desirable 0.52-1.04) CHELA 10.0 11/26/2011 (desirable 8.5-10.4) Your Cholesterol Results: LDL 125 11/26/2011 Your Thyroid Results: TSH 4.39 11/26/2011 Desired level to be within 0.4 - 5.0 Your results are all normal and look good. Please continue with the treatment plan discussed in the office. Return as discussed or sooner if symptoms worsens or fail to improve. If you have any further questions or concerns, please do not hesitate to contact us. Sincerely, Faye Liao MD [facility] INTERNAL MEDIC[facility] [id number] Source: [facility] Document Id: [id number] Miscellaneous - Conversion, Historical Provider Ser - 11/26/2011 2:30 PM AUTOMOTIVE WELDER [id number] Zandra Lopez [address] [place] [address] June 24, 2012 Dear Zandra Lopez APPOINTMENT REMINDER: Our records indicates that it is time for you to have your annual mammogram completed. You may call our office at [phone] or [phone] to schedule an appointment for a Mammogram. For your convenience, our [facility] now offers portable digital mammograms on the first Saturdayof every month. Please disregard this notice if you have already made an appointment. Sincerely, [facility] Source: [facility] Document Id: [id number] documented in this encounter Plan of Treatment Upcoming Encounters Date Type Specialty Care Team Description 08/30/2022 Diagnostic Neurology Karin Ramachandran M.D., M.P.H. [address] [place], [place] [phone] (Howie dean) 10/10/2022 Office Visit Neurology Karin Ramachandran M.D., M.P.H. [address] [place], [place] [phone] (Howie dean) documented as of this encounter Procedures Procedure Name Priority Date/Time Associated Comments Diagnosis HX LDLCHOL Routine 11/27/2011 7:05 PM Results f or this AUTOMOTIVE WELDER procedure are i n the results section. THYROID-STIMULATING Routine 11/27/2011 1:33 PM Re sults for this HORMONE-SENSITIVE AUTOMOTIVE WELDER procedure are in (S-TSH) the results section. HX UREA NITROGEN Routine 11/27/2011 1:04 PM Resul ts for this AUTOMOTIVE WELDER procedure are i n the results section. HX AGAP Routine 11/27/2011 1:04 PM Results f or this AUTOMOTIVE WELDER procedure are i n the results section. CREATININE WITH Routine 11/27/2011 1:04 PM Result s for this EGFR, P AUTOMOTIVE WELDER procedure are i n the results section. CREATININE WITH Routine 11/27/2011 1:04 PM Result s for this EGFR, P AUTOMOTIVE WELDER procedure are i n the results section. SODIUM, S/P Routine 11/27/2011 1:04 PM Results f or this AUTOMOTIVE WELDER procedure are i n the results section. POTASSIUM, S/P Routine 11/27/2011 1:04 PM Results for this AUTOMOTIVE WELDER procedure are i n the results section. GLUCOSE, RANDOM, S/P Routine 11/27/2011 1:04 PM R esults for this AUTOMOTIVE WELDER procedure are i n the results section. CREATININE WITH Routine 11/27/2011 1:04 PM Result s for this EGFR, S/P AUTOMOTIVE WELDER procedure are i n the results section. CHLORIDE, S/P Routine 11/27/2011 1:04 PM Results for this AUTOMOTIVE WELDER procedure are i n the results section. BICARBONATE, B/S/P Routine 11/27/2011 1:04 PM Res ults for this AUTOMOTIVE WELDER procedure are i n the results section. CALCIUM, TOT, S/P Routine 11/27/2011 1:04 PM Resu lts for this AUTOMOTIVE WELDER procedure are i n the results section. documented in this encounter Results HX LDLCHOL (11/27/2011 7:05 PM AUTOMOTIVE WELDER) P athologist Signature LDL Cholesterol 125 MGDL [facility] Specimen (Source) Anatomical Collection Method Collection Time Re ceived Time Location / / Volume Laterality 11/27/2011 7:05 PM AUTOMOTIVE WELDER Narrative [facility] - 01/24/20 14 1:45 AM AUTOMOTIVE WELDER Optimal: ? <100 mg/dL Near Optimal: ? 100-129 mg/dL Borderline High: ??130-159 mg/dL High: ? 160-189 mg/dL Very high: ??greater than or equal to 19 0 mg/dL Cannot estimate LDL when triglyceride ex ceeds 400 mg/dL Historical Provider LAB HISTORICAL ORDERS Performing Organization Address City/State/ZIP Code Phon e Number [facility] S-TSH (Thyroid-Stimulating Hormone - Sensitive) (11/27/2011 1:33 PM AUTOMOTIVE WELDER) athologist Signature TSH 4.39 MUNITL [facility] (Thyrotropin) [facility] Specimen (Source) Anatomical Collection Method Collection Time Re ceived Time Location / / Volume Laterality 11/27/2011 1:33 PM AUTOMOTIVE WELDER Historical Provider LAB BLOOD ADD-ON Performing Organization Address City/State/ZIP Code Phon e Number [facility] Calcium, Total (11/27/2011 1:04 PM AUTOMOTIVE WELDER) athologist Signature Calcium, Total, 10.0 MGDL [facility] Specimen (Source) Anatomical Collection Method Collection Time Re ceived Time Location / / Volume Laterality 11/27/2011 1:04 PM AUTOMOTIVE WELDER Historical Provider LAB BLOOD ADD-ON Performing Organization Address City/State/ZIP Code Phon e Number [facility] Creatinine with Estimated GFR (MDRD), Plasma (11/27/2011 1:04 PM AUTOMOTIVE WELDER) P athologist Signature eGFR >90 [id number] [facility] Black/ [facility] LAB Specimen (Source) Anatomical Collection Method Collection Time Re ceived Time Location / / Volume Laterality 11/27/2011 1:04 PM AUTOMOTIVE WELDER Historical Provider LAB BLOOD ADD-ON Performing Organization Address City/State/ZIP Code Phon e Number [facility] Creatinine with Estimated GFR (MDRD), Plasma (11/27/2011 1:04 PM AUTOMOTIVE WELDER) P athologist Signature HXeGFR (MDRD) 88 [id number] [facility] Specimen (Source) Anatomical Collection Method Collection Time Re ceived Time Location / / Volume Laterality 11/27/2011 1:04 PM AUTOMOTIVE WELDER Historical Provider LAB BLOOD ADD-ON Performing Organization Address City/State/ZIP Code Phon e Number [facility] Creatinine with Estimated GFR (MDRD) (11/27/2011 1:04 PM AUTOMOTIVE WELDER) P athologist Signature Creatinine 0.70 MGDL [facility] Specimen (Source) Anatomical Collection Method Collection Time Re ceived Time Location / / Volume Laterality 11/27/2011 1:04 PM AUTOMOTIVE WELDER Historical Provider LAB BLOOD ADD-ON Performing Organization Address City/State/ZIP Code Phon e Number [facility] HX UREA NITROGEN (11/27/2011 1:04 PM AUTOMOTIVE WELDER) P athologist Signature Urea Nitrogen, 17 MGDL [facility] 24 HR, [facility] Specimen (Source) Anatomical Collection Method Collection Time Re ceived Time Location / / Volume Laterality 11/27/2011 1:04 PM AUTOMOTIVE WELDER Historical Provider LAB HISTORICAL ORDERS Performing Organization Address City/State/ZIP Code Phon e Number [facility] Glucose, Random (11/27/2011 1:04 PM AUTOMOTIVE WELDER) P athologist Signature Glucose 84 MGDL [facility] Specimen (Source) Anatomical Collection Method Collection Time Re ceived Time Location / / Volume Laterality 11/27/2011 1:04 PM AUTOMOTIVE WELDER Narrative [facility] - 01/24/20 14 1:45 AM AUTOMOTIVE WELDER Non Fasting Historical Provider LAB BLOOD TROPONIN Performing Organization Address City/State/ZIP Code Phon e Number [facility] HX AGAP (11/27/2011 1:04 PM AUTOMOTIVE WELDER) P athologist Signature Anion Gap 8 MMOLL [facility] Specimen (Source) Anatomical Collection Method Collection Time Re ceived Time Location / / Volume Laterality 11/27/2011 1:04 PM AUTOMOTIVE WELDER Historical Provider LAB HISTORICAL ORDERS Performing Organization Address City/State/ZIP Code Phon e Number [facility] Bicarbonate (11/27/2011 1:04 PM AUTOMOTIVE WELDER) P athologist Signature HX Carbon 28 MMOLL [facility] Specimen (Source) Anatomical Collection Method Collection Time Re ceived Time Location / / Volume Laterality 11/27/2011 1:04 PM AUTOMOTIVE WELDER Historical Provider LAB BLOOD ADD-ON Performing Organization Address City/State/ZIP Code Phon e Number [facility] Chloride (11/27/2011 1:04 PM AUTOMOTIVE WELDER) P athologist Signature Chloride, S 105 MMOLL [facility] Specimen (Source) Anatomical Collection Method Collection Time Re ceived Time Location / / Volume Laterality 11/27/2011 1:04 PM AUTOMOTIVE WELDER Historical Provider LAB BLOOD ADD-ON Performing Organization Address City/State/ZIP Code Phon e Number [facility] Potassium, S (11/27/2011 1:04 PM AUTOMOTIVE WELDER) P athologist Signature Potassium, S 5.0 MMOLL [facility] Specimen (Source) Anatomical Collection Method Collection Time Re ceived Time Location / / Volume Laterality 11/27/2011 1:04 PM AUTOMOTIVE WELDER Historical Provider LAB BLOOD ADD-ON Performing Organization Address City/[facility]/ZIP Code Phon e Number [facility] Sodium (11/27/2011 1:04 PM AUTOMOTIVE WELDER) P athologist Signature Sodium, S 141 MMOLL [facility] Specimen (Source) Anatomical Collection Method Collection Time Re ceived Time Location / / Volume Laterality 11/27/2011 1:04 PM AUTOMOTIVE WELDER Historical Provider LAB BLOOD ADD-ON Performing Organization Address City/State/ZIP Code Phon e Number [facility] documented in this encounter Visit Diagnoses Not on filedocumented in this encounter
--- OUTSIDE RECORDS SUMMARY | 2022-08-29 10:32 | XMS_ITS | Encounter Summary ---
:1960 Author Organization [facility] Address [address] [place] [address] Care Team Providers Name Role Phone Unavailable Primary Care Provider Unavailable Encounter Details Date Type Department Care Team Description 09/13/2010 Hospital Encounter HX [facility] Aurelia Fernández M.D. [address] [place] [address] (Wo rk) Social History Tobacco Use Types Packs/Day Years Used Date Smoking Tobacco: Never Assessed Sex Assigned at Date Recorded Female 07/10/2022 7:32 AM CDT documented as of this encounter Miscellaneous Notes Telephone Encounter - Conversion, Historical Provider Ser - 09/13/2010 12:00 AM CDT [id number] Pt needs refill on her thyroid meds faxed to [facility] in [place]. [facility] Document Id: [id number] Telephone Encounter - Alyssa Evans R.N. - 09/13/2010 12:00 AM CDT [id number] Last visit: BP Readings from Last 1 Encounters: 07/24/2010 110/63 Called patient as per letter sent 09/08, she would like to try to increase her dose to 88mcg. Order placed for 88 mcg, please update dispense and refill. Informed she may need to return for recheck of TSH TSH 3.56 09/01/2010 Source[facility] Document Id: [id number] Electronically signed by Conversion, [facility] Pollution Control Chemist [id number] at 04/28/2017 1:39 PM CDT documented in this encounter Plan of Treatment Upcoming Encounters Date Type Specialty Care Team Description 08/30/2022 Diagnostic Neurology Karin Ramachandran M.D., M.P.H. [address] [phone] (Wo rk) 10/10/2022 Office Visit Neurology Karin Ramachandran M.D., M.P.H. [address] [place] [phone] (Wo rk) documented as of this encounter Visit Diagnoses Not on filedocumented in this encounter
--- OUTSIDE RECORDS SUMMARY | 2022-08-29 10:32 | XMS_ITS | Encounter Summary ---
:1960 Author Organization [facility] Address [address] [place] [address] Care Team Providers Name Role Phone Unavailable Primary Care Provider Unavailable Encounter Details Date Type Department Care Team Description 01/07/2013 Hospital Encounter HX [facility] Aurelia Fernández M.D. [address] [place] [address] (Wo rk) Social History Tobacco Use Types Packs/Day Years Used Date Smoking Tobacco: Never Assessed Sex Assigned at Date Recorded Female 07/10/2022 7:32 AM CDT documented as of this encounter Miscellaneous Notes Telephone Encounter - Conversion, Historical Provider Ser - 01/07/2013 12:00 AM CST [id number] Last visit: BP Readings from Last 1 Encounters: 01/07/13 123/81 [facility] Document Id: [id number] Telephone Encounter - Cora Jack R.N. - 01/07/2013 12:00 AM BALLPOINT PEN CARTRIDGE TESTER [id number] Last visit: BP Readings from Last 1 Encounters: 01/07/13 123/81 Two different instructions on sign. Please clarify. CAD/HTN and/or CHF labs: CR 0.70 11/26/2011 POTASSIUM 5.0 11/26/2011 TSH 4.39 11/26/2011 [facility] Document Id: [id number] Electronically signed by Conversion, [facility] Tire Builder Operator [id number] at 04/22/2017 12:53 PM CDT documented in this encounter Plan of Treatment Upcoming Encounters Date Type Specialty Care Team Description 08/30/2022 Diagnostic Neurology Karin Ramachandran M.D., M.P.H. [address] [phone] (Wo rk) 10/10/2022 Office Visit Neurology Karin Ramachandran M.D., M.P.H. [address] [phone] (Wo rk) documented as of this encounter Visit Diagnoses Not on filedocumented in this encounter
--- OUTSIDE RECORDS SUMMARY | 2022-08-29 10:32 | XMS_ITS | Encounter Summary ---
:1960 Author Organization [facility] Address [address] [place] [address] Care Team Providers Name Role Phone Unavailable Primary Care Provider Unavailable Encounter Details Date Type Department Care Team Description 03/17/2014 Hospital Encounter HX [facility] Aurelia Núñez M.D. [address] [place] [address] (Wo rk) Social History Tobacco Use Types Packs/Day Years Used Date Smoking Tobacco: Never Assessed Sex Assigned at Date Recorded Female 07/10/2022 7:32 AM CDT documented as of this encounter Last Filed Vital Signs Vital Sign Reading Time Taken Comments Blood Pressure 128/82 03/17/2014 8:51 AM CDT Pulse 80 03/17/2014 8:51 AM CDT Temperature - - Respiratory Rate 12 03/17/2014 8:51 AM CDT Oxygen Saturation - - Inhaled Oxygen Concentration - - Weight 61.4 kg (135 lb 5.8 oz) 03/17/2014 8:51 AM CDT Height - - Body Mass Index - - documented in this encounter Medications at Time of Discharge Medication Sig Dispensed Refills Start Date End Date CALCIUM CARB/VIT Calcium 600+D See 0 02/20/2014 D3/MINERALS Instructions, 1 TABLET (CALCIUM-VITAMIN D ORAL) DAILY documented as of this encounter Progress Notes Faye Yadav M.D. - 03/17/2014 12:14 PM CDT Clinic Progress Note CHIEF COMPLAINT/REASON FOR VISIT Renew medications, PHQ9, MONICA HISTORY OF PRESENT ILLNESS Zandra is here to follow up HTN, hypothyroidism, and osteopenia. She has been doing well until this morning when she woke up with some nausea and feeling unwell and shaky. She denies any shortness ofbreath, fever, or myalgias. No URI symptoms. She does not check her BP but her HTN has been well controlled on amlodipine. No CP, VILLAFANA, palpitations, edema or other concerns. No BAUER or vision changes or lightheadedness. She is compliant with levothyroxine with no recent changes. Has alternating diarrhea and constipation, no significant skin changes, mood changes or other concerns. Started metamucil for bowel regimen this week. Osteopenia: Has been off alendronate for 2 years, after 5 years of therapy. Last DEXA scan: 2005 (worst T score -1.7 L hip). Menopause age 45, 3 adulthood fractures, 30py hx smoking. Takes supplemental calcium 600mg and vitamin D 400 IU daily and eats about 2 servings calcium per day. MEDICATIONS Ambien CR 6.25 mg oral tablet, extended release, 6.25 mg, 1 tab(s), PO, Bedtime, PRN amLODIPine 5 mg oral tablet, 5 mg, PO, Daily aspirin 81 mg oral delayed release capsule bisacodyl 5 mg oral delayed release tablet, has not taken Calcium 600+D ibuprofen 200 mg oral capsule levothyroxine 88 mcg (0.088 mg) oral tablet, 88 mcg, PO, Daily Multi-Day with Calcium and Extra Iron polyethylene glycol 3350 oral powder for reconstitution, has not taken. 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 SOCIAL HISTORY Date Time: 03/17/2014 08:51 Tobacco: Smoking Status: Current every day smoker Exposure: No Results Found Alcohol: Use: No Results Found Recreational Drugs: Use: No Results Found Type: No Results Found FAMILY HISTORY No qualifying data available. IMMUNIZATIONS --> HEALTH MAINTENANCE Health Maintenance Pending (in the next year) OverDue Screening Pap Smear every 3 years Women 21-65 due 07/23/13 and every 3 year(s) Due Depression: PHQ-9 every 6 months due 03/17/14 Variable frequency Health Assessment every 1 year due 03/17/14 Variable frequency Screening Colonoscopy or Flex Sig or Occult Blood due 03/17/14 Variable frequency Vaccine: Pneumococcal Once due 03/17/14 and every 100 year(s) Due In Future Vaccine: Flu every 1 year not due until 05/07/14 and every 7 month(s) Satisfied (in the past 1 year) Satisfied Vaccine: Flu every 1 year on 10/09/13. Satisfied by Contributor_system, [facility]_HX_IMM_SYS SYSTEMS REVIEW GENERAL: no fevers, chills, or weight loss HEENT: no sore throat, ear pain, or oral lesions CV: no chest pain, no shortness of breath with exertion, no edema RESP: no cough, no shortness of breath, no wheeze GI: no abdominal pain, no nausea, no vomiting, no diarrhea, no constipation, no blood in stool, no frequent heartburn : no hematuria, no dysuria MSK: no significant new joint pains, no significant muscle pains NEURO: no focal weakness or mental status changes. No headaches SKIN: no rashes or concerning lesions PSYCH: mood is stable, lots of difficulty sleeping- not falling or staying asleep. Lunesta was too expensive. Takes ambien 10mg about 3 nights a week. VITAL SIGNS T: 36.7 ??C (Core) HR: 80 RR: 12 BP: 128/82 WT: 61.4 kg PHYSICAL EXAMINATION GENERAL: Patient is comfortable, polite [...] lesions PSYCH: mental status appropriate. Normal speech. LAB RESULTS Cholesterol: 252 mg/dL (03/17/14) Tri mg/dL (03/17/14) Chol/HDL Ratio: 1 (03/17/14) LDL Calculated: 49 mg/dL (03/17/14) HDL: 194 mg/dL (03/17/14) LDL/HDL: 0 (03/17/14) Sodium Lvl: 144 mmol/L (01/07/13) Potassium Lvl: 4.2 mmol/L (01/07/13) Chloride: 107 mmol/L (01/07/13) Carbon Dioxide: 27 mmol/L (01/07/13) Glucose Fastin mg/dL (03/17/14) Glucose Lvl: 77 mg/dL (01/07/13) Creatinine: 0.50 mg/dL (03/17/14) Calcium Lvl: 9.3 mg/dL (01/07/13) EGFR (MDRD): >60 mL/min/1.73m2 (03/17/14) TSH: 0.79 mIU/L (03/17/14) IMPRESSION/REPORT/PLAN Benign Essential Hypertension Well controlled. Continue current meds. Check creatinine and fasting glucose. Ordered: amLODIPine, 5 mg, PO, Daily, # 90 tab(s), 3 Refill(s), Maintenance, Pharmacy: [id number] Creatinine Glucose, Fasting* Disorder of Bone and Cartilage, Unspecified Continue calcium and vitamin D supplement. On bisphosphonate holiday. FRAX: 10% risk of major fracture 10%, 2.4% risk of hip fracture. Insomnia, Unspecified Trial of Ambien CR for duration of sleep. Do not cut or crush. Max dose 6.25mg. Try not to use morethan 3 nights a week. Ordered: zolpidem, 6.25 mg = 1 tab(s), PO, Bedtime, PRN Sleep, do not crush or chew, # 30 tab(s), 3 Refill(s), Maintenance, if too expensive patient may not fill Screening Cancer Colon Colonoscopy ordered for RW--she will call to schedule if she decides to do. Has prep at home. Screening Lipid Reviewed lipids from today and did AHA/ACC calculator which showed 10 year risk of ASCVD was1.7 %, reduced to 1.2% if risk factors optimized. Ordered: Lipid Panel* Tobacco Use Disorder Not interested in quitting at this time. Trying to cut back. Support offered. Unspecified Hypothyroidism Continue current replacement dose. Unlikely that bowel issues represent thyroid replacement status. Ordered: levothyroxine, 88 mcg, PO, Daily, # 90 tab(s), 3 Refill(s), Maintenance, Pharmacy: [facility][id number] Thyroid Stimulating Hormone Return in 1 year or sooner if needed. Due for pelvic/pap and mammogram and breast exam. Billing Diagnoses --> Electronically Signed By: FAYE YADAV MD On: 03/17/2014 06:06 PM Source: [employer] Document Id: [id number] documented in this encounter Nursing Notes Faye Yadav M.D. - 03/17/2014 9:18 AM CDT Ambulatory Patient Education The following Patient Education Materials have been given to the patient: Patient Education Materials: Source: [employer] Document Id: [id number] documented in this encounter Miscellaneous Notes Miscellaneous - Conversion, Historical Provider Ser - 03/18/2014 3:18 PM CDT MONICA-7 MONICA-7 Entered On: 03/18/2014 15:18 CDT Performed On: 03/18/2014 15:18 CDT by ELISSA JARAMILLO [facility] GAD7 GAD7 Feeling nervous : Not at all GAD7 Not able to control worry : Not at all GAD7 Worrying too much : Not at all GAD7 Trouble relaxing : Not at all GAD7 Being so restless : Not at all GAD7 Becoming easily annoyed : Not at all GAD7 Feeling afraid : Not at all GAD7 Total Score : 0 ELISSA JARAMILLO CMA - 03/18/2014 15:18 CDT Source: [facility] POWERCHART Document Id: [id number] CDT!10 Miscellaneous - Conversion, Historical Provider Ser - 03/18/2014 3:18 PM CDT PHQ-9 PHQ-9 Entered On: 03/18/2014 15:18 CDT Performed On: 03/18/2014 15:18 CDT by ELISSA JARAMILLO [facility] PHQ-9 Little interest or pleasure in doing things : Not at all Feeling down, depressed, or hopeless : Not at all Trouble falling or staying asleep, or sleeping too much : Nearly every day Feeling tired or having little energy : Not at all Feeling bad about yourself or that you are a failure : Not at all Trouble concentrating on things : Not at all Moving or speaking slowly; restless or fidgety : Not at all Thoughts that you would be better off /hurting self : Not at all ELISSA JARAMILLO PRIVATE WATCHMAN - 03/18/2014 15:18 CDT Source: [facility] [employer] Document Id: [id number] CDT!10 Miscellaneous - Faye Yadav M.D. - 03/17/2014 2:15 PM CDT Normal Results Letter 17 March 2014 ZANDRA MAI [address] [place] [id number] Dear ZANDRA MAI, I am pleased to report that your results from the following diagnostic test(s) magdaleno good. Your HDL (healthy) cholesterol is extremely high which is good news. Your LDL is at a healthy level and on review of your cardiac risk, you are low risk for a first heart attack or stroke in the next 10 years (1.7% which is considered low risk). To reduce that risk further, please continue your efforts to quit using tobacco products. Your thyroid test is normal so do not change your dose. Please follow up with us as we discussed during your visit or sooner if you have any concerns. If you have questions or concerns, please do not hesitate to call our office. Result Name Current Result Previous Result Normal Range Glucose Fasting (mg/dL) 96 03/17/2014 70 - 99 Creatinine (mg/dL) (L) 0.50 03/17/2014 0.60 - 1.10 EGFR (MDRD) (mL/min/1.73m2) >60 03/17/2014 >90 01/07/2013 >=60 - Cholesterol (mg/dL) (H) 252 03/17/2014 - <=200 Trig (mg/dL) 44 03/17/2014 - <=150 HDL (mg/dL) (H) 194 03/17/2014 40 - 60 LDL Calculated (mg/dL) 49 03/17/2014 1 - 130 TSH (mIU/L) 0.79 03/17/2014 0.80 01/07/2013 0.30 - 4.20 Sincerely, FAYE YADAV [address] [place] [address] Electronic Signature Electronically Signed By: FAYE YADAV MD On: 17 March 2014 This document has images extracted. Source: [facility] POWERCHART Document Id: [id number] Electronically signed by Conversion, [facility] [employer] [employer] [facility] [id number] at 04/22/2017 9:43 PM CDT Miscellaneous - Faye Yadav M.D. - 03/17/2014 9:19 AM CDT Ambulatory Patient Summary [facility] [address] [place], [place] [id number] Visit Information Name: ZANDRA MAI [facility] Number: [id number] Current Date: 03/17/2014 09:19:06 Physicians Attending Provider: FAYE YADAV MD Primary Care Provider: FAYE YADAV MD ZANDRA MAI has been given the following list of follow-up instructions, medication list, and patient education materials: Follow-up Instructions With: Address: When: Follow up with primary care provider In 1 year 03/17/2015 Comments: Your Medications Here is a list of your medications. It is important to take your medications as directed. Use a pillbox or chart to help remind you to take your medications. Please let your doctor or nurse know if you have problems taking your medications. Medication/Strength How to Take Indications/Special Instructions/Comments/Notes for Patient Medication Changes/Routing amLODIPine (amLODIPine 5 mg oral tablet) 5 mg, Oral, once a day Routed to [address] [address] aspirin (aspirin 81 mg oral delayed release capsule) See Instructions 1 CAPSULE DAILY *bisacodyl (bisacodyl 5 mg oral delayed release tablet) See Instructions take all four tabs with 8 oz of fluid as instructed by colonoscopy prep instructions calcium-vitamin D (Calcium 600+D) See Instructions 1 TABLET DAILY ibuprofen (ibuprofen 200 mg oral capsule) See Instructions 2 tabs and limits to 4 daily levothyroxine (levothyroxine 88 mcg (0.088 mg) oral tablet) 88 mcg, Oral, once a day Routed to [address] [address] multivitamin with minerals (Multi-Day with Calcium and Extra Iron) See Instructions None Entered *polyethylene glycol 3350 (polyethylene glycol 3350 oral powder for reconstitution) See InstructionsMix and use as directed for colonoscopy prep. zolpidem (Ambien CR 6.25 mg oral tablet, extended release) 1 Tablet(s), Oral, once a day (at bedtime) as needed for Sleep do not crush or chew This is a CHANGE Routed to Printer * You have let us know that you are not taking this medication as listed. Please talk with your primary care provider or the health care provider who prescribed the medication as soon as possible. Stop Taking the Following Medications: buPROPion (buPROPion SR 150 mg/12 hour oral tablet, sustained release) Medication list as of 03-17-14 09:19 Attention: If you have any medications at [...] Electronically Signed By: FAYE YADAV MD Signed On:17-MAR-2014 09:18:55 Your Allergies & Intolerances Substance Reaction Symptoms [...] states Your Upcoming Appointments Date Time Location Reason Provider 03/17/2014 11:00 [facility] Mammo screening [facility] PR RM 1 Attention: Contact your local Clinic if further appointment detail needed. Your Goals/Additional instructions: Source: [facility] POWERCHART Document Id: [id number] Miscellaneous - Faye Yadav M.D. - 03/17/2014 9:19 AM CDT Ambulatory Discharge Medication List [address] [id number] Visit Information Name: ZANDRA MAI [facility] Number: [id number] Visit Date: 03/17/2014 09:19:04 Attending Provider: FAYE YADAV MD Primary Care Provider: FAYE YADAV MD SANDIZANDRA WHITINGAN has been given the following list of medications: Your Medications It is important to take your medications as directed. Use a pill box or chart to help remind you to take your medications. Please let your doctor or nurse know if you have problems taking your medications. Medication/Strength How to Take Indications/Special Instructions/Comments/Notes for Patient Medication Changes/Routing amLODIPine (amLODIPine 5 mg oral tablet) 5 mg, Oral, once a day Routed to [employer] [address] aspirin (aspirin 81 mg oral delayed release capsule) See Instructions 1 CAPSULE DAILY *bisacodyl (bisacodyl 5 mg oral delayed release tablet) See Instructions take all four tabs with 8 oz of fluid as instructed by colonoscopy prep instructions calcium-vitamin D (Calcium 600+D) See Instructions 1 TABLET DAILY ibuprofen (ibuprofen 200 mg oral capsule) See Instructions 2 tabs and limits to 4 daily levothyroxine (levothyroxine 88 mcg (0.088 mg) oral tablet) 88 mcg, Oral, once a day Routed to [address] [address] multivitamin with minerals (Multi-Day with Calcium and Extra Iron) See Instructions None Entered *polyethylene glycol 3350 (polyethylene glycol 3350 oral powder for reconstitution) See InstructionsMix and use as directed for colonoscopy prep. zolpidem (Ambien CR 6.25 mg oral tablet, extended release) 1 Tablet(s), Oral, once a day (at bedtime) as needed for Sleep do not crush or chew This is a CHANGE Routed to Printer * You have let us know that you are not taking this medication as listed. Please talk with your primary care provider or the health care provider who prescribed the medication as soon as possible. Stop Taking the Following Medications: buPROPion (buPROPion SR 150 mg/12 hour oral tablet, sustained release) Medication list as of 03-17-14 09:19 Attention: If you have any medications at [...] Electronically Signed By: FAYE YADAV MD Signed On:17-MAR-2014 09:18:55 Additional Information: Source: [facility] [employer] Document Id: [id number] Miscellaneous - Conversion, Historical Provider Ser - 03/17/2014 8:51 AM CDT Adult Fitness Coach Intake/History Adult Fitness Coach Intake/History Entered On: 03/17/2014 8:53 CDT Performed On: 03/17/2014 8:51 CDT by ELISSA JARAMILLO [facility] Intake Chief Complaint : Renew medications, PHQ9, MONICA Temperature Core : 36.7 DegC(Converted to: 98.1 DegF) Peripheral Pulse Rate : 80 /min Respiratory Rate : 12 /min (LOW) Heart Rhythm : Regular Systolic Blood Pressure : 128 mmHg Diastolic Blood Pressure : 82 mmHg NIBP Mean : 97 mmHg BP Location : Left upper extremity Blood Pressure Cuff Size : Regular Actual Weight : 61.4 kg(Converted to: 135 lb 6 oz) Weight Source : Standing scale Dosing Weight Clinic : 61.4 kg ELISSA JARAMILLO [facility] - 03/17/2014 8:51 CDT General Info Information Given By : Patient Languages : Kosovan ELISSA JARAMILLO [facility] - 03/17/2014 8:51 CDT Subjective Pain Symptoms : No ELISSA JARAMILLO [facility] - 03/17/2014 8:51 CDT Dependent Habits Tobacco Use/Currently Using : Yes Smoking Status : Current every day smoker ELISSA JARAMILLO [facility] - 03/17/2014 8:51 CDT Tobacco Use Grid Type : Cigarettes Cigarette Use Packs/Day : 1 ELISSA JARAMILLO [facility] - 03/17/2014 8:51 CDT Source: [facility] [employer] Document Id: [id number] CDT!27 documented in this encounter Plan of Treatment Upcoming Encounters Date Type Specialty Care Team Description 08/30/2022 Diagnostic Neurology Karin Ramachandran M.D., M.P.H. [address] [place], [place] [phone] (Howie dean) 10/10/2022 Office Visit Neurology Karin Ramachandran M.D., M.P.H. [address] [place], [place] [phone] (Howie dean) documented as of this encounter Procedures Procedure Name Priority Date/Time Associated Comments Diagnosis LIPID PANEL, S Routine 03/17/2014 9:23 AM Results for this CDT procedure are i n the results section. THYROID-STIMULATING Routine 03/17/2014 9:23 AM Re sults for this HORMONE-SENSITIVE CDT procedure are in (S-TSH) the results section. GLUCOSE, FASTING, Routine 03/17/2014 9:23 AM Resu lts for this S/P CDT procedure are i n the results section. CREATININE WITH Routine 03/17/2014 9:23 AM Result s for this EGFR, S/P CDT procedure are i n the results section. documented in this encounter Results Glucose, Fasting (03/17/2014 9:23 AM CDT) P athologist Signature Glucose, 96 70 - 99 POWERCHART Fasting, S MGDL Specimen (Source) Anatomical Collection Method Collection Time Re ceived Time Location / / Volume Laterality Blood 03/17/2014 9:23 AM CDT Faye Yadav M.D. LAB BLOOD NON ADD-ON Performing Organization Address City/State/ZIP Code Phon e Number POWERCHART (ABNORMAL) Creatinine with eGFR (03/17/2014 9:23 AM CDT) Analysis Performed At Patho logist Time Signature Creatinine 0.50 (L) 0.60 - POWERCHART 1.10 MGDL eGFR >60 >=60 POWERCHART Black/ [id number] Citizen Of [place] HXeGFR (MDRD) >60 >=60 POWERCHART [id number] Comment: Results are in mL/min/1.73m CKD Stage I: ? GFR > 90 CKD Stage II: ?GFR 60 to 89 CKD Stage III: ? GFR 30 to 59 CKD Stage IV: ? GFR 15 to 29 CKD Stage V: ?GFR < 15 or Dialysi s Specimen (Source) Anatomical Collection Method Collection Time Re ceived Time Location / / Volume Laterality Blood 03/17/2014 9:23 AM CDT Faye Yadav M.D. LAB BLOOD ADD-ON Performing Organization Address City/State/ZIP Code Phon e Number POWERCHART (ABNORMAL) Lipid Panel (03/17/2014 9:23 AM CDT) P athologist Signature Cholesterol, 252 (H) <=200 MGDL POWERCHART Total Comment: ADULTS: Desirable: ? < 200 mg/dL Increased Risk: ?? 200-240 mg/dL High Risk: ?> 240 mg/dL PEDIATRIC: National Heart, Lung, and Blood Instit[facility] e Cholesterol Guidelines for Pediatrics and Adolescents: Acceptable: < 170 mg/dL Borderline: 170-199 mg/dL High: > 199 mg/dL Triglycerides 44 <=150 MGDL POWERCHART Comment: The National Cholesterol Education Progr am (NCEP) has set the following guidelines for Triglycerides in adults ages 18 and up: Normal <150 mg/dL Borderline 150-199 mg/dL High 200-499 mg/dL Very High > or = 500 mg/dL The National Cholesterol Education Progr am (NCEP) has set the following guidelines for Triglycerides in children ages 2 to 17. Normal <90 mg/dL Borderline 90-129 mg/dL High > or = 130 mg/dL HX HDL 194 (H) 40 - 60 MGDL POWERCHART Calculated LDL 49 1 - 130 MGDL POWERCHART Comment: This is a calculated LDL. ADULT RANGES: Desirable: ?<10 0 mg/dL Low Risk: ?100- 129 mg/dL Borderline High Risk: ??130-159 mg/dL High Risk: ?160 -189 mg/dL Very High Risk: ?>189 mg/dL PEDIATRIC: National Heart, Lung, and Blood Instit[facility] e LDL Guidelines for Pediatrics and Adolescents: Acceptable: < 110 mg/dL Borderline: 110-129 mg/dL High: >129 mg/dL Total Cholesterol/HDL Ratio 1 PO WERCHART HXLDL/HDL 0 POWERCHART Specimen (Source) Anatomical Collection Method Collection Time Re ceived Time Location / / Volume Laterality Blood 03/17/2014 9:23 AM CDT Faye Yadav M.D. LAB BLOOD ADD-ON Performing Organization Address City/State/ZIP Code Phon e Number POWERCHART Thyroid-Stimulating Hormone-Sensitive (s-TSH) (03/17/2014 9:23 AM CDT) P athologist Signature TSH 0.79 0.30 - 4.20 POWERCHART (Thyrotropin) MIUL Specimen (Source) Anatomical Collection Method Collection Time Re ceived Time Location / / Volume Laterality Blood 03/17/2014 9:23 AM CDT Faye Yadav M.D. LAB BLOOD ADD-ON Performing Organization Address City/State/ZIP Code Phon e Number POWERCHART documented in this encounter Visit Diagnoses Not on filedocumented in this encounter Additional Health Concerns Assessment Noted Time PHQ-9 Depression Total Score: 3 03/18/2014 3:18 PM CDT documented as of this encounter
--- OUTSIDE RECORDS SUMMARY | 2022-08-29 10:32 | XMS_ITS | Encounter Summary ---
:1960 Author Organization [facility] Address [address] [place] [address] Care Team Providers Name Role Phone Unavailable Primary Care Provider Unavailable Encounter Details Date Type Department Care Team Description 01/07/2013 Hospital Encounter HX [facility] Aurelia Liao M.D. [address] [place] [address] (Wo rk) Social History Tobacco Use Types Packs/Day Years Used Date Smoking Tobacco: Never Assessed Sex Assigned at Date Recorded Female 07/10/2022 7:32 AM CDT documented as of this encounter Progress Notes Faye Liao M.D. - 01/07/2013 2:00 PM CST [id number] Zandra Lopez is here for follow up of HTN, osteopenia, and hypothyroidism. Other concerns today include wishes to quit smoking. HYPERTENSION: The patient has a history of hypertension of moderate severity and long standing duration. Patients blood pressures have been in the normal range. Current treatment includes calcium channel galindo. Patient denies any symptoms, including CP, VILLAFANA, BAUER, vision change, edema, orthopnea or PND. Last labs: POTASSIUM 5.0 11/26/2011 CR 0.70 11/26/2011 Has had some exercise, and she is having a hard time adjusting to her upper dentures. She is still smoking. She is rolling her own cigarettes. She has been cutting down and wants to quit. Never filled wellbutrin. Past Medical History Diagnosis Date Carpal tunnel syndrome Unspecified essential hypertension Essential hypertension Unspecified hypothyroidism Hypothyroidism Absence of menstruation 2003 Allergies Allergen Reactions Latex rash, hives Medications as of 01/07/2013: Current Outpatient Prescriptions Medication Sig levothyroxine (SYNTHROID, LEVOTHROID) 88 MCG tablet Take 1 tablet by mouth daily. zolpidem (AMBIEN) 10 MG tablet Take 1 tablet by mouth nightly as needed for sleep. at bedtime. amLODIPine (NORVASC) 10 MG tablet Take 1 tablet by mouth daily. IBUPROFEN 200 MG OR CAPS 2 tabs and limits to 4 daily CALCIUM + D OR 1 TABLET DAILY ASPIRIN 81 MG OR CPEP 1 CAPSULE DAILY MULTI-DAY/CALCIUM/EXTRA IRON OR None Entered History Social History Marital Status: Spouse Name: ednis Number of Children: 1 Years of Education: [...] fevers, or chills Cardiovascular: negative for CP, VILLAFANA Respiratory: negative for cough, wheeze GI: negative for abd pain, N/V/D/constipation, or heartburn : negative for hematuria, dysuria Skin: negative for rash or sores Endocrine: negative for heat/cold intolerance or hair changes, polyuria or polydipsia Neurologic: negative for BAUER, dizziness, weakness, numbness or tingling Musculoskeletal: negative for significant arthralgias or myalgias Psych: negative. Mood normal BP 123/81 Pulse 72 Temp(Src) 97.5 ??F (36.4 ??C) (Temporal) Resp 16 Ht 1.6 m (5' 3) Wt 61.281 kg (135 lb 1.6 oz) BMI 23.93 kg/m2 LMP 12/16/2002 General: alert, NAD, healthy appearance Skin: normal [...] and affect ASSESSMENT/PLAN: 1) HTN: Well controlled. May decrease amlodipine to 5mg daily and monitor BP 2 times a week. If [id number]/85 consistently, will need to increase back to 10mg daily. Discussed principles of mgt includingexercise (moderate aerobic with slowly increasing goals), diet (reduced sodium), and stress reduction. Check ambulatory BP twice a week and call if consistently over 135/85. Will check Cr, K today. 2) Osteopenia: On bisphosphonate holiday for past year. 3) Tobacco use disorder: Will try wellbutrin. Not interested in quit clinic. Counseled on med side effects and use, as well as strategies to quit. 4) Preventive: TDAP today. Mammogram today. Colonoscopy next month. 5) Insomnia: Refill ambien, which she uses sparingly, no more than 2 times per week. Reviewed new dosing guidelines for women and she would like to remain on 10mg dose as it has worked well for her in the past with no concerns. Return to clinic in 12 months for annual with pap or sooner if new or worsening symptoms. Source: [facility] RWHXTRANSXRTFSYS Document Id: [id number] Electronically signed by Conversion, [facility] X Ray Developing Machine Operator [id number] at 04/22/2017 12:53 PM CDT documented in this encounter Miscellaneous Notes Miscellaneous - Conversion, Historical Provider Ser - 01/07/2013 2:00 PM HOT ROLL LAMINATOR [id number] 01/08/2013 Zandra Taylor [facility] [address] [place] [address] Dear Zadnra: Thank you for allowing me to participate in your care. Your recent test results were reviewed and listed below. Your results are provided below for your review Your Basic metabolic lab results: NA 144 01/07/2013 (desirable 133-144) - SODIUM POTASSIUM 4.2 01/07/2013 (desirable 3.4-5.3) GLC 77 01/07/2013 (normal value without eating is below 100; concerning if greater than 126 while fasting) - GLUCOSE BUN 11 01/07/2013 (kidney function test and for hydration; desirable 7-30) CR 0.61 01/07/2013 (kidney function test; desirable 0.52-1.04) - CREATNINE CHELA 9.3 01/07/2013 (desirable 8.5-10.4) - CALCIUM The results of your TSH (Thyroid Test): TSH 0.80 01/07/2013 (Desirable TSH level is 0.4-5All of your lab work came back within normal range and show no sign of concern. Thank you for choosing [facility]. Please continue with the treatment plan discussedin the office. Return as discussed or sooner if symptoms worsens or fail to improve. If you have anyfurther questions or concerns, please do not hesitate to contact us. Sincerely, Faye Liao MD [facility] [facility] [address] [place] [address] Source: [facility] RWMCHXTRANSXRTFSYS Document Id: [id number] documented in this encounter Plan of Treatment Upcoming Encounters Date Type Specialty Care Team Description 08/30/2022 Diagnostic Neurology Karin Ramachandran M.D., M.P.H. [address] [phone] (Howie dean) 10/10/2022 Office Visit Neurology Karin Ramachandran M.D., M.P.H. [address] [phone] (Howie dean) documented as of this encounter Procedures Procedure Name Priority Date/Time Associated Comments Diagnosis THYROID-STIMULATING Routine 01/07/2013 6:44 PM Re sults for this HORMONE-SENSITIVE HOT ROLL LAMINATOR procedure are in (S-TSH) the results section. HX UREA NITROGEN Routine 01/07/2013 6:14 PM Resul ts for this HOT ROLL LAMINATOR procedure are i n the results section. HX AGAP Routine 01/07/2013 6:14 PM Results f or this HOT ROLL LAMINATOR procedure are i n the results section. CREATININE WITH Routine 01/07/2013 6:14 PM Result s for this EGFR, P HOT ROLL LAMINATOR procedure are i n the results section. CREATININE WITH Routine 01/07/2013 6:14 PM Result s for this EGFR, P HOT ROLL LAMINATOR procedure are i n the results section. SODIUM, S/P Routine 01/07/2013 6:14 PM Results f or this HOT ROLL LAMINATOR procedure are i n the results section. POTASSIUM, S/P Routine 01/07/2013 6:14 PM Results for this HOT ROLL LAMINATOR procedure are i n the results section. GLUCOSE, RANDOM, S/P Routine 01/07/2013 6:14 PM R esults for this HOT ROLL LAMINATOR procedure are i n the results section. CREATININE WITH Routine 01/07/2013 6:14 PM Result s for this EGFR, S/P HOT ROLL LAMINATOR procedure are i n the results section. CHLORIDE, S/P Routine 01/07/2013 6:14 PM Results for this HOT ROLL LAMINATOR procedure are i n the results section. BICARBONATE, B/S/P Routine 01/07/2013 6:14 PM Res ults for this HOT ROLL LAMINATOR procedure are i n the results section. CALCIUM, TOT, S/P Routine 01/07/2013 6:14 PM Resu lts for this HOT ROLL LAMINATOR procedure are i n the results section. documented in this encounter Results S-TSH (Thyroid-Stimulating Hormone - Sensitive) (01/07/2013 6:44 PM HOT ROLL LAMINATOR) athologist Signature TSH 0.80 MUNITL [facility] (Thyrotropin) [facility] Specimen (Source) Anatomical Collection Method Collection Time Re ceived Time Location / / Volume Laterality 01/07/2013 6:44 PM HOT ROLL LAMINATOR Historical Provider LAB BLOOD ADD-ON Performing Organization Address City/State/ZIP Code Phon e Number [facility] Calcium, Total (01/07/2013 6:14 PM HOT ROLL LAMINATOR) athologist Signature Calcium, Total, 9.3 MGDL [facility] Specimen (Source) Anatomical Collection Method Collection Time Re ceived Time Location / / Volume Laterality 01/07/2013 6:14 PM HOT ROLL LAMINATOR Historical Provider LAB BLOOD ADD-ON Performing Organization Address City/State/ZIP Code Phon e Number [facility] Creatinine with Estimated GFR (MDRD), Plasma (01/07/2013 6:14 PM HOT ROLL LAMINATOR) P athologist Signature eGFR >90 [id number] [facility] Black/ [facility] [place] LAB Specimen (Source) Anatomical Collection Method Collection Time Re ceived Time Location / / Volume Laterality 01/07/2013 6:14 PM HOT ROLL LAMINATOR Historical Provider LAB BLOOD ADD-ON Performing Organization Address City/State/ZIP Code Phon e Number [facility] Creatinine with Estimated GFR (MDRD), Plasma (01/07/2013 6:14 PM HOT ROLL LAMINATOR) P athologist Signature HXeGFR (MDRD) >90 [id number] [facility] Specimen (Source) Anatomical Collection Method Collection Time Re ceived Time Location / / Volume Laterality 01/07/2013 6:14 PM HOT ROLL LAMINATOR Historical Provider LAB BLOOD ADD-ON Performing Organization Address City/State/ZIP Code Phon e Number [facility] Creatinine with Estimated GFR (MDRD) (01/07/2013 6:14 PM HOT ROLL LAMINATOR) P athologist Signature Creatinine 0.61 MGDL [facility] Specimen (Source) Anatomical Collection Method Collection Time Re ceived Time Location / / Volume Laterality 01/07/2013 6:14 PM HOT ROLL LAMINATOR Historical Provider LAB BLOOD ADD-ON Performing Organization Address City/State/ZIP Code Phon e Number [facility] HX UREA NITROGEN (01/07/2013 6:14 PM HOT ROLL LAMINATOR) P athologist Signature Urea Nitrogen, 11 MGDL [facility] 24 HR, [facility] Specimen (Source) Anatomical Collection Method Collection Time Re ceived Time Location / / Volume Laterality 01/07/2013 6:14 PM HOT ROLL LAMINATOR Historical Provider LAB HISTORICAL ORDERS Performing Organization Address City/State/ZIP Code Phon e Number [facility] Glucose, Random (01/07/2013 6:14 PM HOT ROLL LAMINATOR) P athologist Signature Glucose 77 MGDL [facility] Specimen (Source) Anatomical Collection Method Collection Time Re ceived Time Location / / Volume Laterality 01/07/2013 6:14 PM HOT ROLL LAMINATOR Narrative [facility] - 02/05/20 14 9:41 PM CDT Non Fasting Historical Provider LAB BLOOD TROPONIN Performing Organization Address City/State/ZIP Code Phon e Number [facility] HX AGAP (01/07/2013 6:14 PM HOT ROLL LAMINATOR) P athologist Signature Anion Gap 10 MMOLL [facility] Specimen (Source) Anatomical Collection Method Collection Time Re ceived Time Location / / Volume Laterality 01/07/2013 6:14 PM HOT ROLL LAMINATOR Historical Provider LAB HISTORICAL ORDERS Performing Organization Address City/State/ZIP Code Phon e Number [facility] Bicarbonate (01/07/2013 6:14 PM HOT ROLL LAMINATOR) P athologist Signature HX Carbon 27 MMOLL [facility] Dioxide [facility] LAB Specimen (Source) Anatomical Collection Method Collection Time Re ceived Time Location / / Volume Laterality 01/07/2013 6:14 PM HOT ROLL LAMINATOR Historical Provider LAB BLOOD ADD-ON Performing Organization Address City/State/ZIP Code Phon e Number [facility] Chloride (01/07/2013 6:14 PM HOT ROLL LAMINATOR) P athologist Signature Chloride, S 107 MMOLL [facility] Specimen (Source) Anatomical Collection Method Collection Time Re ceived Time Location / / Volume Laterality 01/07/2013 6:14 PM HOT ROLL LAMINATOR Historical Provider LAB BLOOD ADD-ON Performing Organization Address City/State/ZIP Code Phon e Number [facility] Potassium, S (01/07/2013 6:14 PM HOT ROLL LAMINATOR) P athologist Signature Potassium, S 4.2 MMOLL [facility] Specimen (Source) Anatomical Collection Method Collection Time Re ceived Time Location / / Volume Laterality 01/07/2013 6:14 PM HOT ROLL LAMINATOR Historical Provider LAB BLOOD ADD-ON Performing Organization Address City/State/ZIP Code Phon e Number [facility] Sodium (01/07/2013 6:14 PM HOT ROLL LAMINATOR) P athologist Signature Sodium, S 144 MMOLL [facility] Specimen (Source) Anatomical Collection Method Collection Time Re ceived Time Location / / Volume Laterality 01/07/2013 6:14 PM HOT ROLL LAMINATOR Historical Provider LAB BLOOD ADD-ON Performing Organization Address City/State/ZIP Code Phon e Number [facility] documented in this encounter Visit Diagnoses Not on filedocumented in this encounter
--- OUTSIDE RECORDS SUMMARY | 2022-08-29 10:32 | XMS_ITS | Encounter Summary ---
:1960 Author Organization [facility] Address [address] [place] [address] Care Team Providers Name Role Phone Unavailable Primary Care Provider Unavailable Encounter Details Date Type Department Care Team Description 08/04/2009 Hospital Encounter HX [facility] Shannon Buitrago M.D. [address] [place] [address] (Wo rk) Social History Tobacco Use Types Packs/Day Years Used Date Smoking Tobacco: Never Assessed Sex Assigned at Date Recorded Female 07/10/2022 7:32 AM CDT documented as of this encounter Miscellaneous Notes Telephone Encounter - Conversion, Historical Provider Ser - 08/04/2009 12:00 AM CDT [id number] Accepting this Rx will FAX it directly to the pharmacy. Thank You! Source: [facility] Document Id: [id number] Telephone Encounter - Chante Kenyon R.N. - 08/04/2009 12:00 AM CDT [id number] Last visit: 07/12/09 Last 1 Encounter BP Readings: Date BP 07/12/2009 120/66 CAD/HTN and/or CHF labs: CR 0.72 07/12/09 POTASSIUM 4.5 07/12/09 TSH 0.57 07/12/09 Source[facility] Document Id: [id number] documented in this encounter Plan of Treatment Upcoming Encounters Date Type Specialty Care Team Description 08/30/2022 Diagnostic Neurology Karin Ramachandran M.D., M.P.H. [address] [phone] (Wo rk) 10/10/2022 Office Visit Neurology Karin Ramachandran M.D., M.P.H. [address] [phone] (Wo rk) documented as of this encounter Visit Diagnoses Not on filedocumented in this encounter
--- OUTSIDE RECORDS SUMMARY | 2022-08-29 10:32 | XMS_ITS | Encounter Summary ---
:1960 Author Organization [facility] Address [address] [place] [address] Care Team Providers Name Role Phone Unavailable Primary Care Provider Unavailable Encounter Details Date Type Department Care Team Description 07/10/2011 Hospital Encounter HX [facility] Aurelia Fernández M.D. [address] [place] [phone] (Wo rk) Social History Tobacco Use Types Packs/Day Years Used Date Smoking Tobacco: Never Assessed Sex Assigned at Date Recorded Female 07/10/2022 7:32 AM CDT documented as of this encounter Miscellaneous Notes Miscellaneous - Kristine Pinedo R.N. - 07/10/2011 12:00 AM CDT [id number] Zandra Lopez [address] [place] [address] [place] July 10, 2011 Dear Zandra, Your current medication request for Norvasc will be approved for one refill but you will need to be seen before any additional refills can be approved. The reason a visit needed is: annual exam and med recheck Last visit: BP Readings from Last 1 Encounters: 07/24/10 110/63 Please bring all medications (in original containers) to your appointment. Taking care of your health is important to us, and ongoing visits with your provider are vital to your care. We look forward to seeing you in the near future. You may call our office at [phone] in Family Medicine to schedule a visit. Please disregard this notice if you have already made an appointment. Sincerely, [facility], [address] [place] [address], [place] [address] Source: [facility] Document Id: [id number] Electronically signed by Conversion, [facility] Radiology Orderly [id number] at 04/27/2017 11:17 PM CDT Telephone Encounter - Conversion, Historical Provider Ser - 07/10/2011 12:00 AM CDT [id number] [facility] [place] Last visit: BP Readings from Last 1 Encounters: 07/24/10 110/63 [facility]: [facility] Document Id: [id number] Telephone Encounter - Kristine Pinedo R.N. - 07/10/2011 12:00 AM CDT [id number] Last visit: BP Readings from Last 1 Encounters: 07/24/10 110/63 Care plan indicates patient is to RTC for recheck in 1 yr or CAD/HTN and/or CHF labs: CR 0.75 09/01/2010 POTASSIUM 3.6 09/01/2010 TSH 3.56 09/01/2010 Source: [facility] Document Id: [id number] Electronically signed by Conversion, [facility] Radiology Orderly [id number] at 04/27/2017 11:17 PM CDT documented in this encounter Plan of Treatment Upcoming Encounters Date Type Specialty Care Team Description 08/30/2022 Diagnostic Neurology Karin Ramachandran M.D., M.P.H. [address] [place] [phone] (Howie dean) 10/10/2022 Office Visit Neurology Karin Ramachandran M.D., M.P.H. [address] [place] [phone] (Howie dean) documented as of this encounter Visit Diagnoses Not on filedocumented in this encounter
--- OUTSIDE RECORDS SUMMARY | 2022-08-29 10:32 | XMS_ITS | Encounter Summary ---
:1960 Author Organization [facility] Address [address] [place] [address] Care Team Providers Name Role Phone Unavailable Primary Care Provider Unavailable Encounter Details Date Type Department Care Team Description 08/07/2013 Hospital Encounter HX [facility] Aurelia Núñez M.D. [address] [place] [address] (Howie dean) Social History Tobacco Use Types Packs/Day Years Used Date Smoking Tobacco: Never Assessed Sex Assigned at Date Recorded Female 07/10/2022 7:32 AM CDT documented as of this encounter Miscellaneous Notes Telephone Encounter - Conversion, Historical Provider Ser - 08/07/2013 12:00 AM CDT [id number] Last visit: BP Readings from Last 1 Encounters: 01/07/13 123/81 Out of thyroid medication, few left of blood pressure and ambien medication [phone] Source: [facility] Document Id: [id number] documented in this encounter Plan of Treatment Upcoming Encounters Date Type Specialty Care Team Description 08/30/2022 Diagnostic Neurology Karin Ramachandran M.D., M.P.H. [address] [place] [phone] (Wo rk) 10/10/2022 Office Visit Neurology Karin Ramachandran M.D., M.P.H. [address] [place] [phone] (Wo rk) documented as of this encounter Visit Diagnoses Not on filedocumented in this encounter
--- OUTSIDE RECORDS SUMMARY | 2022-08-29 10:32 | XMS_ITS | Encounter Summary ---
:1960 Author Organization [facility] Address [address] [place] [address] Care Team Providers Name Role Phone Unavailable Primary Care Provider Unavailable Encounter Details Date Type Department Care Team Description 07/04/2012 Hospital Encounter HX [facility] Shannon Zapata M.D. [address] [place] [phone] (Wo rk) Social History Tobacco Use Types Packs/Day Years Used Date Smoking Tobacco: Never Assessed Sex Assigned at Date Recorded Female 07/10/2022 7:32 AM CDT documented as of this encounter Miscellaneous Notes Telephone Encounter - Susana Sifuentes L.P.N. - 07/04/2012 12:00 AM CDT [id number] Accepting this Rx will be faxed directly to pharmacy. Source: [facility] Document Id: [id number] Electronically signed by Conversion, [facility] Adult School Counselor [id number] at 04/27/2017 1:24 PM CDT Telephone Encounter - Rosina Wyatt R.N. - 07/04/2012 12:00 AM CDT [id number] Last visit: BP Readings from Last 1 Encounters: 11/26/11 120/80 TSH 4.39 11/26/2011 CAD/HTN and/or CHF labs: CR 0.70 11/26/2011 POTASSIUM 5.0 11/26/2011 Prescription approved per RN refill protocol. -for norvasc Per plan of care on 11/26/11-Return to clinic in 12 months or sooner if new or worsening symptoms. Unable to approve medication per the RN refill protocol due to: - Medication not on refill protocol list for ambien Routing to ordering provider for ambien Source: [facility] Document Id: [id number] Electronically signed by Conversion, [facility] Adult School Counselor [id number] at 04/27/2017 1:24 PM CDT documented in this encounter Plan of Treatment Upcoming Encounters Date Type Specialty Care Team Description 08/30/2022 Diagnostic Neurology Karin Ramachandran M.D., M.P.H. [address] [phone] (Howie dean) 10/10/2022 Office Visit Neurology Karin Ramachandran M.D., M.P.H. [address] [phone] (Wo dianne) documented as of this encounter Visit Diagnoses Not on filedocumented in this encounter
--- OUTSIDE RECORDS SUMMARY | 2022-08-29 10:32 | XMS_ITS | Encounter Summary ---
:1960 Author Organization [facility] Address [address] [place] [address] Care Team Providers Name Role Phone Unavailable Primary Care Provider Unavailable Encounter Details Date Type Department Care Team Description 04/13/2015 Hospital Encounter HX [facility] Natalia Sepulveda M.D. [address] [place] [address] (Wo rk) Social History Tobacco Use Types Packs/Day Years Used Date Smoking Tobacco: Never Assessed Sex Assigned at Date Recorded Female 07/10/2022 7:32 AM CDT documented as of this encounter Last Filed Vital Signs Vital Sign Reading Time Taken Comments Blood Pressure 142/90 04/13/2015 11:08 AM CDT Pulse 96 04/13/2015 11:08 AM CDT Temperature - - Respiratory Rate - - Oxygen Saturation - - Inhaled Oxygen Concentration - - Weight 60.5 kg (133 lb 6.1 oz) 04/13/2015 11:08 AM CDT Height - - Body Mass Index - - documented in this encounter Medications at Time of Discharge Medication Sig Dispensed Refills Start Date End Date CALCIUM CARB/VIT Calcium 600+D See 0 02/20/2014 D3/MINERALS Instructions, 1 TABLET (CALCIUM-VITAMIN D ORAL) DAILY documented as of this encounter Consult Notes Natalia Sepulveda M.D. - 04/13/2015 11:30 AM CDT Clinic Full Note CHIEF COMPLAINT/REASON FOR VISIT allergy consult HISTORY OF PRESENT ILLNESS Zandra is a very pleasant 54-year-old female smoker with hypothyroidism, hypertension presenting today for consultation at the request of Dr. Yadav for initial allergy evaluation of recurrent angioedema. Zandra has been having recurrent difficulty with episodes of swelling for the last 4 to 5 years. She describes having 1 a major episode each year as follows: Generally each of her episodes have occurred in the setting of some sort of gardening or work with plants. She does not have any reactions immediately but the following morning she will wake up with swelling of her eyes, throat swelling, lip swelling. She notes that it is difficult to swallow and admits to a change in her voice quality. She has had intermittent itching of the eyes though itching does not seem to be the predominant symptom with these attacks. She describes tingling of the lips without overt itching. She denies any other symptoms to suggest anaphylaxis including chest tightness, wheezing, coughing, urticaria, nausea, vomiting, lightheadedness. She has been seen in [place] emergency room for evaluation and management in the setting of each of these attacks. Those records are not available for direct review. Per her description she receives medications through an IV with symptomatic resolution after a few hours. She has tried using EpiPen but this did not provide any immediate relief. She is additionally tried using Benadryl but it is not clear that this changes the course of her symptoms. Each of her attacks have beenduring the spring/summer months. She has not identified any specific trigger or association with environmental exposure, foods, medications. She does not take an DEREK inhibitor. Her most recent attack was March 09, 2015. It is noted that she drinks 1 to 2 alcoholic beverages per day. She additionally smokes 1 pack per day. With regard to his general health, she reports fairly stable control of her hypothyroidism. She reports being up-to-date with regard to mammograms but has never had a colonoscopy. She denies any change in her baseline state of health per review of systems as listed below. Environmental History: Home Type: House Length of Occupancy: 21 years Age of Home: 1990 Heating Type: forced air Air Conditioner Type: central a/c Air Treatment: de-humidifier Carpeting: wall to wall carpeting throughout Pets: 1 dog with run of house, present for 3 years Bedding: no feathers Basement: finished, no known mold Smoke Exposure: self MEDICATIONS albuterol CFC free 90 mcg/inh inhalation aerosol, 2 puff(s), use with spacer chamber, Inhalation, q4hr, PRN, 2 refills Ambien CR 6.25 mg oral tablet, [...] oz of fluidas instructed by colonoscopy prep instructions, * Calcium 600+D, See Instructions, 1 TABLET DAILY EpiPen 2-Reg 0.3 mg injectable kit, PRN, IM, Once ibuprofen 200 mg oral capsule, See Instructions, 2 tabs and limits to 4 daily levothyroxine 88 mcg (0.088 mg) oral tablet, 88 mcg, PO, Daily, 3 refills loratadine 10 mg oral tablet, 10 mg, 1 tab(s), PO, Daily, * Multi-Day with Calcium and Extra Iron, See Instructions, None Entered omeprazole, 20 mg, PO, Daily, * polyethylene glycol 3350 oral powder for reconstitution, See Instructions, Mix and use as directed for colonoscopy prep., * * indicates non-compliance ALLERGIES Latex PAST MEDICAL HISTORY Chronic Benign [...] Arthritis; Hypertension Aunt (paternal):Positive: Breast cancer; Cancer SYSTEMS REVIEW Constitutional symptoms: Denies fever, chills, unintentional weight loss, fatigue Eyes: Denies ocular pain, discharge, itchy watery eyes Ears: Denies hearing change, tinnitus Nose: Denies nasal congestion, rhinorrhea, sinus pressure, loss of smell Throat: Denies sore throat, postnasal drainage Cardiovascular: Denies chest pain, dyspnea on exertion, paroxysmal nocturnal dyspnea, lower extremity edema Respiratory: Denies shortness of breath, cough, chest tightness, wheezing GI: Denies heartburn, dysphagia, abdominal pain, nausea, vomiting, change in bowel habits Heme/Immuno: Denies easy bruising, difficulty with prolonged bleeding, frequent infection SKIN: Denies any rash, new lesions VITAL SIGNS T: 36.5 ??C (Core) HR: 96 BP: 142 / 90 WT: 60.5 kg PHYSICAL EXAMINATION Constitutional: alert, in no apparent distress Head: Normocephalic, atraumatic, no sinus tenderness Eyes: No lid edema, no conjunctival injection Ears: Canals clear, tympanic membranes intact without fluid bilaterally Nose: Septum midline, dry mucosa, no discharge, no turbinate hypertrophy, no polyps appreciated Throat: Moist mucosa, no lesions, +postnasal drainage, no tonsillar enlargement, no exudates Neck: Supple, no adenopathy Cardiovascular: Regular rate, rhythm, no murmurs appreciated Respiratory: Clear to auscultation bilaterally, no wheezes, rales, rhonchi Gastrointestinal: Soft, nontender, nondistended, normal bowel sounds Ext: no edema Skin: negative dermatographia Psychiatric: Mood, affect, and mentation within normal limits Hematology/Lymphatics/Immunologic: No cervical or supraclavicular lymphadenopathy DIAGNOSTIC RESULTS Skin Testing (04/13/2015): Skin prick testing performed to environmental allergens demonstrated indeterminate reaction to [place] but with otherwise negative with appropriate positive histamine control response. Please seescanned skin prick testing form for details. IMPRESSION/REPORT/PLAN 1. Angioedema Initial Ordered: C1 Esterase Inhibitor Functional Quant*-[place] 79992 C4 Complement, Functional*-[place] 00798 CBC (includes Auto Differential) Complement C3-[place] 8174 Comprehensive Metabolic Panel OV Consult Level 3 - 52359 - 40 min Percutaneous Tests Charge Tryptase-[place] 12314 TSH Plus (Ft4 If Indicated) 2. Conjunctivitis Chronic Allergic Ordered: OV Consult Level 3 - 80149 - 40 min Percutaneous Tests Charge 3. Abuse Tobacco Smoking NOS Ordered: OV Consult Level 3 - 04580 - 40 min Orders: Return Visit Allergy Zandra presents today with a history that is suggestive of idiopathic angioedema. She does not have much difficulty with pruritus or urticaria and thus I do not suspect that this is a histamine mediated problem. I do not think that antihistamines will play much role in prevention. Her lack of response to epinephrine suggest that she has not had anaphylactic reactions. That being said we will check a baseline tryptase level and I have recommended that this be checked during an acute attack as well for confirmation that she is not having an allergic reaction. History is not suggestive of any particular trigger. She does not have a family history of angioedema. We will thus proceed with workup for acquired angioedema. She is recommended to follow up with her primary care physician with regard to routine recommended preventative health care screening since underlying malignancy cannot be a cause for acquired angioedema. I have a low suspicion that this is the case since this has been a problem for 4 to 5 years and has only been sporadically symptomatic. All of the above was discussed and all questions were answered. Ideally I would like to follow up with Zandra during an acute angioedema attack but since she lives in [place] and her attacks have involved subjective laryngeal swelling, she will need to be seen locally. I have thus provided written instructions for her to have serum tryptase level checked at the local emergency room along with C3, C4 for further evaluation. She is asked to take pictures when she has an acute attack so that I canreview these at our next office visit. We will otherwise plan for followup evaluation approximately 6 months, sooner if needed. Electronically Signed By: NATALIA SEPULVEDA MD On: 04/13/2015 04:28 PM Source: [employer] Document Id: [id number] documented in this encounter Nursing Notes Natalia Sepulveda M.D. - 04/13/2015 12:05 PM CDT Ambulatory Patient Education The following Patient Education Materials have been given to the patient: Patient Education Materials: Ambulatory ANGIOEDEMA Ambulatory Angioedema Angioedema (pronounced wxqso-l-uhdyl) is a sudden appearance of swollen patches (edema) on the skin or mucous membranes. The swelling is painless and does not itch. It most often involves the face, lips, mouth, tongue, back of throat or vocal cords. It may also occur in other places such as the arms or legs. A rash may also appear during the first 4 days of this illness. The most common cause for this condition is a side-effect to a class of medicine called DEREK inhibitor. This type of drug is used to treat high blood pressure. It includes captopril (Capoten), enalapril(Vasotec) and lisinopril (Prinivil, Zestril). Tell your doctor if you are taking any of these medicines. Other causes of angioedema include allergic reaction to something eaten, touched or inhaled. Angioedema may also be hereditary. In some cases, no cause can be found. Angioedema can lead to the swelling of the air passage in the mouth or throat. Severe swelling can block your breathing and cause . Your doctor believes that you are not at risk for this; however,be alert for early signs of increased swelling in the mouth or throat, or difficulty with swallowingor breathing. Angioedema may recur. It is therefore important to watch for the earliest signs of this condition (below). Return to the hospital promptly if swelling involves the face, mouth or throat areas. Home Care: Rest quietly today. No heavy exertion or excess physical activity. If you were told that your angioedema was from a medicine that you are taking, you must stop taking this medicine. Contact your doctor for a different one. In the future, advise medical staff that you are allergic to this medicine. If medicine was prescribed to treat angioedema (for example, steroids or antihistamines), take it asdirected. Oral Benadryl (diphenhydramine) is an antihistamine available at drug and grocery stores. Unless another antihistamine was prescribed, Benadryl may be used to reduce swelling or itching. Use lower doses during the daytime and higher doses at bedtime since the drug may make you sleepy. [NOTE: Do not use Benadryl if you have glaucoma or if you are a man with trouble urinating due to an enlarged prostate.] Claritin (loratidine) is an antihistamine that causes less drowsiness and is a good alternative for daytime use. Follow Up with your doctor or as advised by our staff. Get Prompt Medical Attention if any of the following occur: ?? Increase in swelling of lip, mouth, tongue or throat ?? Trouble swallowing ?? Trouble breathing ?? Severe abdominal pains ?? [id number] Alida Hanson, [address] [place] [address], [place] [address]. All rights reserved. This information is not intended as a substitute for professional medical care. Always follow your healthcare professional's instructions. Source: [facility] POWERCHART Document Id: [id number] documented in this encounter Miscellaneous Notes Miscellaneous - Natalia Sepulveda M.D. - 04/13/2015 12:05 PM CDT Ambulatory Patient Summary [facility] [address] [facility], [address] [place] [id number] Visit Information Name: ZANDRA MAI [facility] Number: [id number] Current Date: 04/13/2015 12:05:51 Physicians Attending Provider: NATALIA SEPULVEDA MD Primary Care Provider: ÁNGEL YADAV MD ZANDRA MAI has been given the following list of follow-up instructions, medication list, and patient education materials: Follow-up Instructions With: Address: When: NATALIA SEPULVEDA [address] [place] [address] [place] [id number] Business (1) In 6 months 10/14/2015 Comments: follow up Your Medications Here is a list of [...] 0.3 mg injectable kit) Intramuscular, once PRN ibuprofen (ibuprofen 200 mg oral capsule) See Instructions 2 tabs and limits to 4 daily levothyroxine (levothyroxine 88 mcg (0.088 mg) oral tablet) 88 mcg, Oral, once a day *loratadine (loratadine 10 mg oral tablet) 1 Tablet(s), Oral, once a day multivitamin with minerals (Multi-Day with Calcium and Extra Iron) See Instructions None Entered *omeprazole (omeprazole) 20 mg, Oral, once a day *polyethylene glycol 3350 (polyethylene glycol 3350 oral powder for reconstitution) See InstructionsMix and use as directed for colonoscopy prep. zolpidem (Ambien CR 6.25 mg oral tablet, extended release) 1 Tablet(s), Oral, once a day (at bedtime) as needed for Sleep do not crush or chew / [facility] in [place] fax [phone] * You have let us know that you are not taking this medication as listed. Please talk with your primary care provider or the health care provider who prescribed the medication as soon as possible. Stop Taking the Following Medications: Medication list as of 04-13-15 12:05 Attention: If you have any medications at home that are not on this list, DO NOT take them until youcontact your provider for clarification. Give a copy of your medication list to your primary care provider. Update your medication list any time medications or doses are changed and carry your medication list at all times in case of emergency. Electronically Signed By: NATALIA SEPULVEDA MD Signed On:13-APR-2015 12:04:50 Your Allergies & Intolerances Substance Reaction Symptoms [...] Your Upcoming Appointments Date Time Location Provider No Appointments found Attention: Contact your local Clinic if further appointment detail needed. Angioedema Angioedema (pronounced tczof-b-eytnz) is a sudden appearance of swollen patches (edema) on the skin or mucous membranes. The swelling is painless and does not itch. It most often involves the face, lips, mouth, tongue, back of throat or vocal cords. It may also occur in other places such as the arms or legs. A rash may also appear during the first 4 days of this illness. The most common cause for this condition is a side-effect to a class of medicine called DEREK inhibitor. This type of drug is used to treat high blood pressure. It includes captopril (Capoten), enalapril(Vasotec) and lisinopril (Prinivil, Zestril). Tell your doctor if you are taking any of these medicines. Other causes of angioedema include allergic reaction to something eaten, touched or inhaled. Angioedema may also be hereditary. In some cases, no cause can be found. Angioedema can lead to the swelling of the air passage in the mouth or throat. Severe swelling can block your breathing and cause . Your doctor believes that you are not at risk for this; however,be alert for early signs of increased swelling in the mouth or throat, or difficulty with swallowingor breathing. Angioedema may recur. It is therefore important to watch for the earliest signs of this condition (below). Return to the hospital promptly if swelling involves the face, mouth or throat areas. Home Care: Rest quietly today. No heavy exertion or excess physical activity. If you were told that your angioedema was from a medicine that you are taking, you must stop taking this medicine. Contact your doctor for a different one. In the future, advise medical staff that you are allergic to this medicine. If medicine was prescribed to treat angioedema (for example, steroids or antihistamines), take it asdirected. Oral Benadryl (diphenhydramine) is an antihistamine available at drug and grocery stores. Unless another antihistamine was prescribed, Benadryl may be used to reduce swelling or itching. Use lower doses during the daytime and higher doses at bedtime since the drug may make you sleepy. [NOTE: Do not use Benadryl if you have glaucoma or if you are a man with trouble urinating due to an enlarged prostate.] Claritin (loratidine) is an antihistamine that causes less drowsiness and is a good alternative for daytime use. Follow Up with your doctor or as advised by our staff. Get Prompt Medical Attention if any of the following occur: ?? Increase in swelling of lip, mouth, tongue or throat ?? Trouble swallowing ?? Trouble breathing ?? Severe abdominal pains ?? [id number] [place] [address]. All rights reserved. This information is not intended as a substitute for professional medical care. Always follow your healthcare professional's instructions. Your Goals/Additional instructions: Source: [facility] POWERCHART Document Id: [id number] Miscellaneous - Natalia Sepulveda M.D. - 04/13/2015 12:05 PM CDT Ambulatory Discharge Medication List [address] [place] [address] [place] [phone] Visit Information Name: ZANDRA MAI [facility] Number: [id number] Visit Date: 04/13/2015 12:05:50 Attending Provider: NATALIA SEPULVEDA MD Primary Care Provider: ÁNGEL YADAV MD ZANDRA MAI has been given [...] 0.3 mg injectable kit) Intramuscular, once PRN ibuprofen (ibuprofen 200 mg oral capsule) See Instructions 2 tabs and limits to 4 daily levothyroxine (levothyroxine 88 mcg (0.088 mg) oral tablet) 88 mcg, Oral, once a day *loratadine (loratadine 10 mg oral tablet) 1 Tablet(s), Oral, once a day multivitamin with minerals (Multi-Day with Calcium and Extra Iron) See Instructions None Entered *omeprazole (omeprazole) 20 mg, Oral, once a day *polyethylene glycol 3350 (polyethylene glycol 3350 oral powder for reconstitution) See InstructionsMix and use as directed for colonoscopy prep. zolpidem (Ambien CR 6.25 mg oral tablet, extended release) 1 Tablet(s), Oral, once a day (at bedtime) as needed for Sleep do not crush or chew / [place] in [place] fax [phone] * You have let us know that you are not taking this medication as listed. Please talk with your primary care provider or the health care provider who prescribed the medication as soon as possible. Stop Taking the Following Medications: Medication list as of 04-13-15 12:05 Attention: If you have any medications at home that are not on this list, DO NOT take them until youcontact your provider for clarification. Give a copy of your medication list to your primary care provider. Update your medication list any time medications or doses are changed and carry your medication list at all times in case of emergency. 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 Entered On: 04/13/2015 11:12 CDT Performed On: 04/13/2015 11:08 CDT by ALEXANDRA ALONSO engagement liaison Chief Complaint : allergy consult Temperature Core : 36.5 DegC(Converted to: 97.7 DegF) Peripheral Pulse Rate : 96 /min Systolic Blood Pressure : 142 mmHg (HI) Diastolic Blood Pressure : 90 mmHg (HI) NIBP Mean : 107 mmHg BP Location : Right upper extremity Blood Pressure Cuff Size : Regular Actual Weight : 60.5 kg(Converted to: 133 lb 6 oz) Weight Source : Standing scale Dosing Weight Clinic : 60.5 kg ALEXANDRA ALONSO RN - 04/13/2015 11:08 CDT General Info Information Given By : Patient Languages : Bur[place]ian Is Patient Female and 13-50 no hysterectomy : No ALEXANDRA ALONSO RN - 04/13/2015 11:08 CDT Subjective Pain Symptoms : No ALEXANDRA ALONSO RN - 04/13/2015 11:08 CDT Dependent Habits Tobacco Use/Currently Using : Yes Exposure to Tobacco Smoke : Patient smokes Smoking Status : Current every day smoker ALEXANDRA ALONSO RN - 04/13/2015 11:08 CDT Tobacco Use Grid Type : Cigarettes Cigarette Use Packs/Day : 0.5 ALEXANDRA ALONSO RN - 04/13/2015 11:08 CDT ID Screen Travel Within Last 21 Days : No Contact with someone with Ebola : No ALEXANDRA ALONSO RN - 04/13/2015 11:08 CDT Source: [facility] [employer] Document Id: [id number] CDT!30 documented in this encounter Plan of Treatment Upcoming Encounters Date Type Specialty Care Team Description 08/30/2022 Diagnostic Neurology Karin Ramachandran M.D., M[facility]P.[facility] [address] [phone] (Howie dean) 10/10/2022 Office Visit Neurology Karin Ramachandran M.D., M.P.H[facility] [address] [phone] (Howie dean) documented as of this encounter Visit Diagnoses Not on filedocumented in this encounter Additional Health Concerns Assessment Noted Time PHQ-9 Depression Total Score: 3 03/18/2014 3:18 PM CDT documented as of this encounter
--- OUTSIDE RECORDS SUMMARY | 2022-08-29 10:32 | XMS_ITS | Encounter Summary ---
:1960 Author Organization [facility] Address [address] [place] [address] Care Team Providers Name Role Phone Unavailable Primary Care Provider Unavailable Encounter Details Date Type Department Care Team Description 05/04/2014 Hospital Encounter [facility] Aurelia Yadav M.D. [address] [place] [phone] (Wo rk) Social History Tobacco Use Types Packs/Day Years Used Date Smoking Tobacco: Never Assessed Sex Assigned at Date Recorded Female 07/10/2022 7:32 AM CDT documented as of this encounter Last Filed Vital Signs Vital Sign Reading Time Taken Comments Blood Pressure 122/82 05/04/2014 9:23 AM CDT Pulse 103 05/04/2014 9:23 AM CDT Temperature - - Respiratory Rate 12 05/04/2014 9:23 AM CDT Oxygen Saturation - - Inhaled Oxygen Concentration - - Weight 58.6 kg (129 lb 3 oz) 05/04/2014 9:23 AM CDT Height - - Body Mass Index - - documented in this encounter Medications at Time of Discharge Medication Sig Dispensed Refills Start Date End Date CALCIUM CARB/VIT Calcium 600+D See 0 02/20/2014 D3/MINERALS Instructions, 1 TABLET (CALCIUM-VITAMIN D ORAL) DAILY documented as of this encounter Progress Notes Faye Yadav M.D. - 05/04/2014 9:33 AM CDT Clinic Progress Note CHIEF COMPLAINT/REASON FOR VISIT ER F/U 04/01-- Lip swelling, face swelling, trouble swallowing. Still having trouble with ST and voice. HISTORY OF PRESENT ILLNESS Chip is here for continued ST and hoarse voice after an episode of her throat closing up and wasseen at [facility]. She felt her lips felt funny in the afternoon and her brought her to the ER because she looked so swollen. She has not identified any triggers. She planted castor escamilla seeds that day and she had mild pepper rings (pickled) which she has not previously had problems with. Her voice has not gotten better or worse. Still has ST. No fevers. Last 4-5 days has had a cold with cough and runny nose. Still has occasional chest tightness and trouble breathing. Albuterol dose seemto help. Last used 2 hr ago. Has tried antihistamine (zyrtec, benadryl), acid blockers (ranitidine, omeprazole) with no relief. She has had this happen a few times in the past with unknown triggers--over the past 4-5 years has had a few reactions like this. [facility] ED note and FP discharge paperwork reviewed. MEDICATIONS albuterol CFC free 90 mcg/inh inhalation aerosol, 2 puff(s), Inhalation, q4hr, PRN Ambien CR 6.25 mg oral tablet, extended release, 6.25 mg, 1 tab(s), PO, Bedtime, PRN amLODIPine 5 mg oral tablet, 5 mg, PO, Daily aspirin 81 mg oral delayed release capsule bisacodyl 5 mg oral delayed release tablet, Not taking Calcium 600+D EpiPen 2-Reg 0.3 mg injectable kit, IM, Once ibuprofen 200 mg oral capsule levothyroxine 88 mcg (0.088 mg) oral tablet, 88 mcg, PO, Daily loratadine 10 mg oral tablet, 10 mg, 1 tab(s), PO, Daily Multi-Day with Calcium and Extra Iron omeprazole, 20 mg, PO, Daily polyethylene glycol 3350 oral powder for reconstitution, Not taking ALLERGIES Latex PAST MEDICAL HISTORY Chronic Benign Essential Hypertension Carpal Tunnel Syndrome Cervicalgia Complete Rupture of Rotator Cuff Depressive Disorder, 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 SOCIAL HISTORY Date Time: 05/04/2014 09:23 Tobacco: Smoking Status: Current every day smoker Exposure: Patient smokes Alcohol: Use: No Results Found Recreational Drugs: Use: No Results Found Type: No Results Found FAMILY HISTORY No qualifying data available. No angioedema IMMUNIZATIONS --> SYSTEMS REVIEW No fevers No rash URI symptoms as above VITAL SIGNS T: 37.1 ??C (Core) HR: 103 RR: 12 BP: 122/82 SpO2: 98% WT: 58.6 kg PHYSICAL EXAMINATION GENERAL: Patient is comfortable, polite and in no distress. HEENT: moist mucosa, no oral lesions, pharynx erythematous with no exudate or tonsillar hypertrophy. Ear canals and TMs normal NECK: supple, no lymphadenopathy or thyromegaly HEART: Normal rate and rhythm. No murmurs, rubs or gallops. LUNGS: Clear to auscultation. No wheeze, rales or rhonchi noted. Normal work of breathing. ABDOMEN: Soft, nontender, nondistended. No hepato-splenomegaly or masses. EXT: No cyanosis, clubbing or edema. SKIN: no rashes or suspicious lesions PSYCH: mental status appropriate. Normal speech. LABORATORY DATA Rapid strep negative IMPRESSION/REPORT/PLAN Recurrent angioedema: The patient is asymptomatic now and no triggers have been identified. Will check a C4 and C1 esterase inhibitor and C1 esterase inhibitor functional assay if C4 is low. In the meantime, she will continue her current medications. It is noted that she has not been on lisinopril aswas questioned in her [facility] ED notes. She is referred to allergy/immunology and is willing to wait until our pulp mill operator in [place] is available. Laryngitis: Difficult to tell now that she also has a URI, but possibly related to damage from the angioedema episode. She should see ENT unless it resolves spontaneously first. She may continue supportive treatments. We discussed another course of steroids but we agree that this is not desirable. She is advised to stop smoking. Return to clinic as needed. Billing Diagnoses --> Electronically Signed By: FAYE YADAV MD On: 05/04/2014 01:21 PM Source: [facility] i7 NetworksCHART Document Id: [id number] documented in this encounter Miscellaneous Notes Miscellaneous - Chari Amador R.N. - 10/14/2014 5:00 PM CST Med Management Document Contains Addenda Addendum by FAYE YADAV MD on 15 October 2014 07:43:42 SHERIFFS DETECTIVE From: FAYE YADAV MD Sent: 10/15/2014 07:43:42 SHERIFFS DETECTIVE Subject: RE:Med Management Approved Order:zolpidem (Ambien CR 6.25 mg oral tablet, extended release) 1 tab(s) PO Bedtime do not crush orchew Qty: 30 tab(s) Refills: 3 Substitutions Allowed PRN Sleep Print - [email or web address] [facility] in [place] fax [phone] Signed by FAYE YADAV MD 10/15/2014 07:43:31 From: CHARI AMADOR RN ( Nurseline/Refill Nurse) To: FAYE YADAV MD; Sent: 10/14/2014 17:00:15 SHERIFFS DETECTIVE Subject: Med Management On hold pending signature Order:zolpidem (Ambien CR 6.25 mg oral tablet, extended release) 1 tab(s) PO Bedtime do not crush orchew Qty: 30 tab(s) Refills: 3 Substitutions Allowed PRN Sleep Print - [email or web address] [facility] in [place] fax [phone] REFILL HAS NOT BEEN REVIEWED BY RN REFILL POOL. Source: [facility] POWERCHART Document Id: [id number] Electronically signed by Gabriela, [facility] Manager Electrical [id number] at 04/23/2017 9:02 PM CDT Miscellaneous - Conversion, Historical Provider Ser - 05/04/2014 2:39 PM CDT General Message Document Contains Addenda Addendum by TAMIKO RICHARD on 07 May 2014 10:55:24 CDT Pt notified, she will stop in next week. From: ELISSA JARAMILLO CMA ([facility] Nurse) To: [facility] Recreational Vehicle Resort Manager; Sent: 05/04/2014 14:39:05 CDT Subject: General Message Please call patient to schedule lab appointment per Dr. Yadav. Patient can come anytime, sooner rather than later she says. Does NOT need to be fasting per Dr. Yadav. Source: [facility] POWERCHART Document Id: [id number] Miscellaneous - Faye Yadav M.D. - 05/04/2014 10:16 AM CDT Ambulatory Patient Summary [address] [id number] Visit Information Name: CHIP MAI [facility] Number: [phone] Current Date: 05/04/2014 10:16:39 Physicians Attending Provider: FAYE YADAV MD Primary [...] tablet) 1 Tablet(s), Oral, once a day (you have cetirizine insteadof loratadine--this is equivalent) multivitamin with minerals (Multi-Day with Calcium and Extra Iron) See Instructions None Entered omeprazole (omeprazole) 20 mg, Oral, once a day *polyethylene glycol 3350 (polyethylene glycol 3350 oral powder for reconstitution) See InstructionsMix and use as directed for colonoscopy prep. zolpidem (Ambien CR 6.25 mg oral tablet, extended release) 1 Tablet(s), Oral, once a day (at bedtime) as needed for Sleep do not crush or chew * You have let us know that you are not taking this medication as listed. Please talk with your primary care provider or the health care provider who prescribed the medication as soon as possible. Stop Taking the Following Medications: Medication list as of 05-04-14 10:16 Attention: If you have any medications at [...] Electronically Signed By: FAYE YADAV MD Signed On:04-MAY-2014 10:16:16 Your Allergies & Intolerances Substance Reaction Symptoms [...] Upcoming Appointments Date Time Location Reason Provider No Appointments found Attention: Contact your local Clinic if further appointment detail needed. Your Goals/Additional instructions: Source: [facility] POWERCHART Document Id: [id number] Miscellaneous - Faye Yadav M.D. - 05/04/2014 10:16 AM CDT Ambulatory Discharge Medication List [address] [id number] Visit Information Name: CHIP MAI [facility] Number: [id number] Visit Date: 05/04/2014 10:16:38 Attending Provider: FAYE YADAV MD Primary Care [...] tablet) 1 Tablet(s), Oral, once a day (you have cetirizine insteadof loratadine--this is equivalent) multivitamin with minerals (Multi-Day with Calcium and Extra Iron) See Instructions None Entered omeprazole (omeprazole) 20 mg, Oral, once a day *polyethylene glycol 3350 (polyethylene glycol 3350 oral powder for reconstitution) See InstructionsMix and use as directed for colonoscopy prep. zolpidem (Ambien CR 6.25 mg oral tablet, extended release) 1 Tablet(s), Oral, once a day (at bedtime) as needed for Sleep do not crush or chew * You have let us know that you are not taking this medication as listed. Please talk with your primary care provider or the health care provider who prescribed the medication as soon as possible. 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 Still having troublewith ST and voice. Temperature Core : 37.1 DegC(Converted to: 98.8 DegF) Peripheral Pulse Rate : 103 /min (HI) Respiratory Rate : 12 /min (LOW) Heart Rhythm : Regular Systolic Blood Pressure : 122 mmHg Diastolic Blood Pressure : 82 mmHg NIBP Mean : 95 mmHg BP Location : Left upper extremity Blood Pressure Cuff Size : Regular SpO2 : 98 % Oxygen Therapy : Room air Actual Weight : 58.6 kg(Converted to: 129 lb 3 oz) Weight Source : Standing scale Dosing Weight Clinic : 58.6 kg ELISSA JARAMILLO [facility] - 05/04/2014 9:23 CDT General Info Information Given By : Patient Languages : Korean ELISSA JARAMILLO [facility] - 05/04/2014 9:23 CDT Subjective Pain Symptoms : No ELISSA JARAMILLO [facility] - 05/04/2014 9:23 CDT Dependent Habits Tobacco Use/Currently Using : Yes Exposure to Tobacco Smoke : Patient smokes Smoking Status : Current every day smoker ELISSA JARAMILLO [facility] - 05/04/2014 9:23 CDT Tobacco Use Grid Type : Cigarettes Cigarette Use Packs/Day : 0.5 ELISSA JARAMILLO [facility] - 05/04/2014 9:23 CDT Source: [facility] POWERCHART Document Id: [id number]!30 documented in this encounter Plan of Treatment Upcoming Encounters Date Type Specialty Care Team Description 08/30/2022 Diagnostic Neurology Karin Ramachandran M.D., M.P.H[facility] [address] [place], [place] [phone] (Wo rk) 10/10/2022 Office Visit Neurology Karin Ramachandran M.D., M.P.H[facility] [address] [place], [place] [phone] (Howie rk) documented as of this encounter Procedures Procedure Name Priority Date/Time Associated Diagnosis Comme nts RAPID STREP A Routine 05/04/2014 9:55 AM Results for this SCREEN CDT procedure are i n the results section. RAPID STREP A Routine 05/04/2014 9:55 AM Results for this SCREEN CDT procedure are i n the results section. documented in this encounter Results Rapid Strep A Screen (05/04/2014 9:55 AM CDT) [facility] Method Time Signature HXRapid Strep POWERCHART Confirmation HXPre Negative for POWERCHART Group A Strep by culture. HXFinal Negative for POWERCHART Group A Strep by culture. Specimen Anatomical Collection Method Collection Time Receive d Time (Source) Location / / Volume Laterality Throat 05/04/2014 9:55 AM 4 9:55 CDT AM CDT Faye Yadav M.D. LAB MICROBIOLOGY - GENERAL O SYEDERAENDER Performing Organization Address City/[facility] Code Phon e Number POWERCHART Rapid Strep A Screen (05/04/2014 9:55 AM CDT) [facility] Method Time Signature HXStrep A POWERCHART Screen Rapid HXFinal Negative for POWERCHART Strep Group A by rapid screen. HXFinal Culture POWERCHART confirmation to follow. Specimen (Source) Anatomical Collection Method Collection Time Re ceived Time Location / / Volume Laterality Throat 05/04/2014 9:55 AM CDT Faye Yadav M.D. LAB MICROBIOLOGY - GENERAL O [place] Performing Organization Address City/[facility]/ZIP Code Phon e Number POWERCHART documented in this encounter Visit Diagnoses Not on filedocumented in this encounter Additional Health Concerns Assessment Noted Time PHQ-9 Depression Total Score: 3 03/18/2014 3:18 PM CDT documented as of this encounter
--- OUTSIDE RECORDS SUMMARY | 2022-08-29 10:32 | XMS_ITS | Encounter Summary ---
:1960 Author Organization [facility] Address [address] [place] [address] Care Team Providers Name Role Phone Unavailable Primary Care Provider Unavailable Encounter Details Date Type Department Care Team Description 03/28/2011 Hospital Encounter HX [facility] Shannon Buitrago M.D. [address] [place] [address] (Wo rk) Social History Tobacco Use Types Packs/Day Years Used Date Smoking Tobacco: Never Assessed Sex Assigned at Date Recorded Female 07/10/2022 7:32 AM CDT documented as of this encounter Miscellaneous Notes Telephone Encounter - Conversion, Historical Provider Ser - 03/28/2011 12:00 AM CDT [id number] [facility] Last visit: BP Readings from Last 1 Encounters: 07/24/10 110/63 Hypercholesterolemia Labs: AST 27 09/01/2010 ALT 17 09/01/2010 CHOL 214 09/01/2010 TRIG 111 09/01/2010 HDL 96 09/01/2010 LDL 95 09/01/2010 CAD/HTN and/or CHF labs: CR 0.75 09/01/2010 POTASSIUM 3.6 09/01/2010 Your most recent blood tests on record are listed for your review below. No results found for this basename: a1c:1] (goal less than 7.0% (best if less than 6.5%)) CHOL 214 09/01/2010] (goal less than 200) TRIG 111 09/01/2010] (goal less than 149) HDL 96 09/01/2010] (goal greater than 45 for men and greater than 50 for women) LDL 95 09/01/2010] (goal less than 100) No results found for this basename: microalbumin:1] normal 0 - 25 . Source: [facility] Document Id: [id number] Telephone Encounter - Sera Stephens R.N. - 03/28/2011 12:00 AM CDT [id number] Last visit:07/24/10 Yanni--pt to rtc in 1 year BP Readings from Last 1 Encounters: 07/24/10 110/63 Unable to approve medication per the RN refill protocol due to: - Provider not in refill pool Routing to Provider for review and recommendation in Dr. Liao's absence. CAD/HTN and/or CHF labs: CR 0.75 09/01/2010 POTASSIUM 3.6 09/01/2010 TSH 3.56 09/01/2010 Source: [facility] Document Id: [id number] Telephone Encounter - Libra Starks D.O. - 03/28/2011 12:00 AM CDT [id number] Rx faxed. Source[facility] Document Id: [id number] documented in this encounter Plan of Treatment Upcoming Encounters Date Type Specialty Care Team Description 08/30/2022 Diagnostic Neurology Karin Ramachandran M.D., M[facility]P.[facility] [address] [place], [place] [phone] (Howie dean) 10/10/2022 Office Visit Neurology Karin Ramachandran M.D., M[facility]P.[facility] [address] [place], [place] [phone] (Howie dean) documented as of this encounter Visit Diagnoses Not on filedocumented in this encounter
--- OUTSIDE RECORDS SUMMARY | 2022-08-29 10:32 | XMS_ITS | Encounter Summary ---
:1960 Author Organization [facility] Address [address] [place] [address] Care Team Providers Name Role Phone Unavailable Primary Care Provider Unavailable Encounter Details Date Type Department Care Team Description 01/07/2013 Hospital Encounter HX NO MAPPING Abelardo Liao M.D. [address] [place], [place] [phone] (Wo rk) Social History Tobacco Use Types Packs/Day Years Used Date Smoking Tobacco: Never Assessed Sex Assigned at Date Recorded Female 07/10/2022 7:32 AM CDT documented as of this encounter Plan of Treatment Upcoming Encounters Date Type Specialty Care Team Description 08/30/2022 Diagnostic Neurology Karin Ramachandran M.D., M[facility]P.[facility] [address] [phone] (Wo rk) 10/10/2022 Office Visit Neurology Karin Ramachandran M.D., M[facility] [address] [phone] (Wo rk) documented as of this encounter Visit Diagnoses Not on filedocumented in this encounter
--- OUTSIDE RECORDS SUMMARY | 2022-08-29 10:32 | XMS_ITS | Encounter Summary ---
:1960 Author Organization [facility] Address [address] [place] [address] Care Team Providers Name Role Phone Unavailable Primary Care Provider Unavailable Encounter Details Date Type Department Care Team Description 11/21/2009 Hospital Encounter HX NO MAPPING Shannon Barrett M.D. [address] [place] [phone] (Wo rk) Social History Tobacco Use Types Packs/Day Years Used Date Smoking Tobacco: Never Assessed Sex Assigned at Date Recorded Female 07/10/2022 7:32 AM CDT documented as of this encounter Plan of Treatment Upcoming Encounters Date Type Specialty Care Team Description 08/30/2022 Diagnostic Neurology Karin Ramachandran M.D., M[facility] [address] [phone] (Wo rk) 10/10/2022 Office Visit Neurology Karin Ramachandran M.D., M[facility]P.[facility] [address] [phone] (Wo rk) documented as of this encounter Visit Diagnoses Not on filedocumented in this encounter
--- OUTSIDE RECORDS SUMMARY | 2022-08-29 10:32 | XMS_ITS | Encounter Summary ---
:1960 Author Organization [facility] Address [address] [place] [address] Care Team Providers Name Role Phone Unavailable Primary Care Provider Unavailable Encounter Details Date Type Department Care Team Description 07/24/2010 Hospital Encounter HX [facility] Aurelia Liao M.D. [address] [place] [address] (Wo rk) Social History Tobacco Use Types Packs/Day Years Used Date Smoking Tobacco: Never Assessed Sex Assigned at Date Recorded Female 07/10/2022 7:32 AM CDT documented as of this encounter Progress Notes Faye Liao M.D. - 07/24/2010 1:00 PM CDT [id number] Zandra Lopez is a 49 year old female who presents today for a annual physical. She presents without complaint. Past Medical History Diagnosis Date Carpal Tunnel Syndrome Unspecified Essential Hypertension Essential hypertension Unspecified Hypothyroidism Hypothyroidism Absence of Menstruation 2002 Obstetric History T0 P0 TAB0 SAB0 E0 M0 L0 Past Surgical History Procedure Date Skeletal procedure date: fracture L humerus Revise median n/carpal tunnel surg 02/23/03 LT Repair rotator cuff,acute 03/10/07 LT Shldr arthroscop,part debride 03/10/07 LT Family History Problem Relation Age of Onset Allergies Mother Allergies Sister Arthritis Sister self Cancer Father skin Cancer Paternal Aunt unknown location Hypertension Sister Hypertension Father Stroke Father age 74 (has had multiple) Breast CA Paternal Aunt and her 2 daughters SOCIAL HISTORY: Marital Status: 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 Smoking: yes - 1/2 to 1 pack daily Alcohol: 12/week Number of children: 1 Allergies Allergen Reactions Latex rash, hives Medications as of 07/24/2010: Current outpatient prescriptions Medication Sig ACTONEL 150 MG OR TABS 1 TABLET MONTHLY 30 MIN BEFORE MEAL WITH WATER AMLODIPINE BESYLATE 10 MG OR TABS 1 TABLET DAILY SYNTHROID 75 MCG OR TABS one daily AMBIEN 10 MG OR TABS ONE AT BEDTIME, NEEDED IBUPROFEN 200 MG OR CAPS 2 tabs and limits to 4 daily CALCIUM + D OR 1 TABLET DAILY ASPIRIN 81 MG OR CPEP 1 CAPSULE DAILY MULTI-DAY/CALCIUM/EXTRA IRON OR None Entered REVIEW OF SYSTEMS: CONSTITUTIONAL: Denies fever, weight loss or weight gain, fatigue. EYES: does not get regular visual check-ups. does not wear corrective lenses. Denies blurred vision,visual loss or eye pain. ENT: Trevor ear pain, sinus congestion, recurrent infections, frequent sore throat, hoarseness. Hearsgood, and sees the dentist occassionally. CARDIOVASCULAR: Denies chest pain, orthopnea, paroxysmal nocturnal dyspnea, palpitations, or edema. RESPIRATORY: Denies wheezing, asthma, or dyspnea. does not have cough. GASTROINTESTINAL: good appetite, denies abdominal pain, dysphagia, nausea, vomiting, diarrhea, constipation, melana, or rectal bleeding. GENITOURINARY: Denies dysuria, incontinence, nocturia, hematuria. 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 does not have muscle pain. NEUROLOGICAL: does not have headaches. Denies seizures, syncope, tremor, dizziness, or weakness. SKIN: Denies rashes, suspicious moles or non healing wounds. ENDOCRINE: Denies thyroid problems, denies heat/cold intolerance, or hair loss. LYMPHATIC: Denies swollen lymph nodes. No previous blood disorders. PHYSICAL EXAM: BP 110/63 Pulse 80 Temp(Src) 97.8 ??F (36.6 ??C) (Temporal) Wt 131 lb 9.6 oz (59.693 kg) LMP12/16/2002 Patient's last menstrual period was 12/16/2002. Zandra Lopez is well nourished, good hydration. In no distress. Pleasant, using appropriate conversation, oriented. good hygiene. Cooperative with exam. EYES: Conjunctiva are clear. Pupils equal and reactive. Extra ocular movements intact, without ptosis. ENT: Ear canals Clear cerumen. TM's are normal. Nose shows normal nasal mucosa, without drainage. Throat shows that tonsils are absent. Post pharynx is not inflammed. NECK: Thyroid Normal. LYMPHATIC: Lymph nodes normal in cervical, supraclavicular, submandibular, axillary and inguinal areas. BREAST: no skin changes, discrete masses, or axillary nodes. Inverted nipples b/l LUNGS: Normal work of breathing, clear to auscultation bilaterally. CARDIOVASCULAR: regular rate and rhythm, without murmur and no extra beats. Edema is not present. Varicose vein disease is not present. Dorsalis pedis pulses are Normal. ABDOMEN: Bowels sounds normal. Non distended, no mass, no hepatosplenomagaly. No bruits without previous surgical scar. GENITALIA: normal external genitalia without lesion. Cervix is clear. Bimanual exam is normal without mass or tenderness, adnexa also without mass or tenderness and pap smear was obtained with cytobrush. RECTAL: There is external hemorrhoids, and no mass on digital exam. MUSCULOSKELETAL: No swollen or erythematous joints. Kyphosis is not present. SKIN: No rashes, ulcerations or suspicious moles. ASSESSMENT: Satisfactory Annual Physical and tobacco use disorder Hypertension, Hypothyroid and Osteopenia PLAN: 1. The following procedures have been ordered: PAP and colonoscopy-to be scheduled at later date. Due for repeat DEXA but not sure about insurance coverage. Mammo done 11/02-normal 2. The following labs have been ordered: CBC, lipid/AST, TSH and BMP--had impaired fasting glucose once-112 RTC 1 year for annual exam. 3. Trying to cut back on smoking. Offered support. Increase exercise. 4. Refill meds. HTN well controlled-continue CCB. Source: [facility] RWHXTRANSXRTFSYS Document Id: [id number] Electronically signed by Conversion, [facility] Take Away Man [id number] at 04/28/2017 3:39 PM CDT documented in this encounter Miscellaneous Notes Miscellaneous - Faye Liao M.D. - 07/24/2010 1:00 PM CDT [id number] Zandra Taylor [place] [address] [place] [id number] [facility] 07/28/2010 Dear Ms. Lopez, I am happy to inform you that your recent cervical cancer screening test (PAP smear) was normal. Preventative screening such as this helps insure your health for years to come. Congratulations for taking care of yourself! Please contact my office if you have any further questions. [phone] Sincerely, Faye Liao M.D. [facility] Source: [facility] Document Id: [id number] Electronically signed by Conversion, [facility] Take Away Man [id number] at 04/28/2017 3:39 PM CDT documented in this encounter Plan of Treatment Upcoming Encounters Date Type Specialty Care Team Description 08/30/2022 Diagnostic Neurology Karin Ramachandran M.D., M.P.H. [address] [phone] (Howie dean) 10/10/2022 Office Visit Neurology Karin Ramachandran M.D., M.P.H. [address], [place] [phone] (Howie dean) documented as of this encounter Visit Diagnoses Not on filedocumented in this encounter
--- OUTSIDE RECORDS SUMMARY | 2022-08-29 10:32 | XMS_ITS | Encounter Summary ---
:1960 Author Organization [facility] Address [address] [place] [address] Care Team Providers Name Role Phone Unavailable Primary Care Provider Unavailable Encounter Details Date Type Department Care Team Description 01/07/2013 Hospital Encounter HX [facility] Provider, [facility] Social History Tobacco Use Types Packs/Day Years Used Date Smoking Tobacco: Never Assessed Sex Assigned at Date Recorded Female 07/10/2022 7:32 AM CDT documented as of this encounter Plan of Treatment Upcoming Encounters Date Type Specialty Care Team Description 08/30/2022 Diagnostic Neurology Karin Ramachandran M.D., M.P.H[facility] [address] [phone] (Howie dean) 10/10/2022 Office Visit Neurology Karin Ramachandran M.D., M.P.H[facility] [address] [phone] (Howie dean) documented as of this encounter Visit Diagnoses Not on filedocumented in this encounter
--- OUTSIDE RECORDS SUMMARY | 2022-08-29 10:32 | XMS_ITS | Encounter Summary ---
:1960 Author Organization [facility] Address [address] [place] [address] Care Team Providers Name Role Phone Unavailable Primary Care Provider Unavailable Encounter Details Date Type Department Care Team Description 12/04/2011 Hospital Encounter HX NO MAPPING Provider, Historical Social History Tobacco Use Types Packs/Day Years Used Date Smoking Tobacco: Never Assessed Sex Assigned at Date Recorded Female 07/10/2022 7:32 AM CDT documented as of this encounter Plan of Treatment Upcoming Encounters Date Type Specialty Care Team Description 08/30/2022 Diagnostic Neurology Karin Ramachandran M.D., M[facility]P.[facility] [address] [phone] (Howie rk) 10/10/2022 Office Visit Neurology Karin Ramachandran M.D., M.P.H[facility] [address] [place] [phone] (Wo rk) documented as of this encounter Visit Diagnoses Not on filedocumented in this encounter
--- OUTSIDE RECORDS SUMMARY | 2022-08-29 10:32 | XMS_ITS | Encounter Summary ---
:1960 Author Organization [facility] Address [address] [place] [address] Care Team Providers Name Role Phone Unavailable Primary Care Provider Unavailable Encounter Details Date Type Department Care Team Description 09/01/2010 Hospital Encounter HX [facility] Provider, Historic [facility] Social History Tobacco Use Types Packs/Day Years Used Date Smoking Tobacco: Never Assessed Sex Assigned at Date Recorded Female 07/10/2022 7:32 AM CDT documented as of this encounter Miscellaneous Notes Miscellaneous - Faye Liao M.D. - 09/01/2010 12:30 PM CDT [id number] Zandra Lopez [address] [place] [id number] September 08, 2010 Dear Zandra, I am writing you concerning your recent lab results obtained at the clinic. Your test results are listed here. Your cholesterol results: CHOL 214 09/01/2010 desired less than 200 HDL 96 09/01/2010 desired greater than 50(female) (good cholesterol) LDL 95 09/01/2010 desired less than 129 (bad cholesterol) TRIG 111 09/01/2010 desired less than 150 AST 27 09/01/2010 ALT 17 09/01/2010 Your blood chemistries results: NA 138 09/01/2010 normal sodium 133-144 POTASSIUM 3.6 09/01/2010 normal potassium 3.4-5.3 CHLORIDE 105 09/01/2010 normal chloride 94-109 CO2 25 09/01/2010 normal CO2 20-32 ANIONGAP 9 09/01/2010 normal anion gap 6-17 BUN 14 09/01/2010 normal BUN 7-30 GLC 91 09/01/2010 normal glucose 60-99 (fasting) CR 0.75 09/01/2010 normal cr(kidney) 0.66-1.25 male / 0.52-1.04 female CHELA 9.5 09/01/2010 normal calcium 8.5-10.4 Your thyroid (TSH) blood test: TSH 3.56 09/01/2010 normal range: 0.34-4.82 All of these look pretty good. Your fasting blood sugar was normal this time. Your thyroid may be slightly less active than it was one year ago, so if you are feeling symptoms, we would consider increasing your synthroid dose to 88mcg daily. However, if you are feeling okay, we would leave it alone since your TSH is in the normal range. Please call us if you would like to try the higher dose. If you have any questions or would like to discuss this further, please feel free to make an appointment at anytime by calling the clinic. I look forward to seeing you in the future. Sincerely, Faye Liao MD Departments of Internal Medicine and Pediatrics [facility] Source: [facility] Document Id: [id number] Electronically signed by Gabriela [facility] Business Development Professional [id number] at 04/28/2017 1:39 PM CDT documented in this encounter Plan of Treatment Upcoming Encounters Date Type Specialty Care Team Description 08/30/2022 Diagnostic Neurology Karin Ramachandran M.D., M.P.H. [address] [phone] (Wo dianne) 10/10/2022 Office Visit Neurology Karin Ramachandran M.D., M.P.H[facility] [address] [phone] (Wo dianne) documented as of this encounter Visit Diagnoses Not on filedocumented in this encounter
--- OUTSIDE RECORDS SUMMARY | 2022-08-29 10:32 | XMS_ITS | Encounter Summary ---
:1960 Author Organization [facility] Address [address] [place] [address] Care Team Providers Name Role Phone Unavailable Primary Care Provider Unavailable Encounter Details Date Type Department Care Team Description 05/19/2014 Hospital Encounter HX [facility] Aurelia Grigsby M.D. [address] [place], [place] [phone] (Wo rk) Social History [...] ORAL) DAILY documented as of this encounter Miscellaneous Notes Miscellaneous - Conversion, Historical Provider Ser - 03/02/2015 8:59 AM CDT Schedule Follow-Up Visit 02 March 2015 ZANDRA MAI [address] [place] [id number] Dear ZANDRA JUNIORNIESHAJOHANNE, Our records indicate that you are due for a follow up appointment with Dr. Yadav. Please call us to make an appointment at your convenience. Our telephone number for scheduling an appointment is [phone]. Your health is important to us. If you have already made an appointment for this or have had the procedure done, please disregard this notice. Sincerely, SHENG WHYTE Electronic Signature Electronically Signed By: SHENG WHYTE On: 02 March 2015 This document has images extracted. Source: [facility] POWERCHART Document Id: [id number] Miscellaneous - Anita Roa L.P.N. - 06/03/2014 11:40 AM CDT *General Message Document Contains Addenda Addendum by ANITA ROA LPN on 04 June 2014 09:07:31 CDT Message relayed to pt, voiced understanding/agreement Addendum by FAYE YADAV MD on 03 June 2014 17:38:11 CDT From: FAYE YADAV MD To: [facility] Nurse; Sent: 06/03/2014 17:38:11 CDT Subject: RE: *General Message Okay, I recommend follow up with allergy even if symptoms have resolved again by then. She should beseen sooner in primary care or if symptoms worsen. From: ANITA ROA LPN ([facility] Nurse) To: FAYE YADAV MD; Sent: 06/03/2014 11:40:59 CDT Subject: *General Message FYI - Pt just wanted to give you an update. Cancelled her ENT appt that was scheduled for May 09 because she had her voice back. Is now losing her voice again, and feels heavy chested. Has an appt in with robotics testing technician scheduled for June 21 Source: [facility] POWERCHART Document Id: [id number] Electronically signed by [facility] Defect Cutter [id number] at 04/23/2017 2:26 AM CDT Nancycellpepper - Faye Yadav M.D. - 05/25/2014 5:02 PM CDT Normal Results Letter 25 May 2014 ZANDRA MAI [address] [place] [id number] Dear ZANDRA MAI, I am pleased to report that your results from the following diagnostic test(s) are normal. Please follow up with us as we discussed during your visit or sooner if you have any concerns. If you have questions or concerns, please do not hesitate to call our office. Result Name Current Result Previous Result Normal Range Sodium Lvl (mmol/L) (L) 131 05/19/2014 144 01/07/2013 135 - 145 C4, Functional-Valerio (unit/mL) (H) 50 05/19/2014 22 - 45 - Sincerely, FAYE YADAV [address] [place] [address] Electronic Signature Electronically Signed By: FAYE YADAV MD On: 25 May 2014 This document has images extracted. Source: [facility] POWERCHART Document Id: [id number] Electronically signed by Conversion, [facility] Defect Cutter [id number] at 04/23/2017 2:26 AM CDT documented in this encounter Plan of Treatment Upcoming Encounters Date Type Specialty Care Team Description 08/30/2022 Diagnostic Neurology Karin Ramachandran M.D., M.P.H[facility] [address] [place] [phone] (Wo rk) 10/10/2022 Office Visit Neurology Karin Ramachandran M.D., M.P.H. [address], [place] [phone] (Wo rk) documented as of this encounter Procedures Procedure Name Priority Date/Time Associated Diagnosis Comme nts C4 COMPL, Routine 05/19/2014 10:48 AM Results for this FUNCTIONAL, S CDT procedure are in the results section. SODIUM, S/P Routine 05/19/2014 10:48 AM Results for this CDT procedure are i n the results section. documented in this encounter Results (ABNORMAL) Sodium (05/19/2014 10:48 AM CDT) P athologist Signature Sodium, S 131 (L) 135 - 145 POWERCHART MMOLL Specimen (Source) Anatomical Collection Method Collection Time Re ceived Time Location / / Volume Laterality Blood 05/19/2014 10:48 AM CDT Faye Yadav M.D. LAB BLOOD ADD-ON Performing Organization Address City/State/ZIP Code Phon e Number POWERCHART (ABNORMAL) C4 Complement, Functional (05/19/2014 10:48 AM CDT) P athologist Signature C4 Complement, 50 (H) 22 - 45 POWERCHART Functional, S UNITML Comment: Test Performed by: [address] [address] Tray Checker: Yuri alston III, M.D. Specimen (Source) Anatomical Collection Method Collection Time Re ceived Time Location / / Volume Laterality Blood 05/19/2014 10:48 AM CDT Faye Yadav M.D. LAB BLOOD NON ADD-ON Performing Organization Address City/State/ZIP Code Phon e Number POWERCHART documented in this encounter Visit Diagnoses Not on filedocumented in this encounter Additional Health Concerns Assessment Noted Time PHQ-9 Depression Total Score: 3 03/18/2014 3:18 PM CDT documented as of this encounter
--- OUTSIDE RECORDS SUMMARY | 2022-08-29 10:32 | XMS_ITS | Encounter Summary ---
:1960 Author Organization [facility] Address [address] [place] [address] Care Team Providers Name Role Phone Unavailable Primary Care Provider Unavailable Encounter Details Date Type Department Care Team Description 11/21/2009 Hospital Encounter HX NO MAPPING Shannon Barrett M.D. [address] [place] [phone] (Wo rk) Social History Tobacco Use Types Packs/Day Years Used Date Smoking Tobacco: Never Assessed Sex Assigned at Date Recorded Female 07/10/2022 7:32 AM CDT documented as of this encounter Plan of Treatment Upcoming Encounters Date Type Specialty Care Team Description 08/30/2022 Diagnostic Neurology Karin Ramachandran M.D., M.P.H[facility] [address] [phone] (Wo rk) 10/10/2022 Office Visit Neurology Karin Ramachandran M.D., M.P.H. [address] [phone] (Wo rk) documented as of this encounter Visit Diagnoses Not on filedocumented in this encounter
--- OUTSIDE RECORDS SUMMARY | 2022-08-29 10:32 | XMS_ITS | Encounter Summary ---
:1960 Author Organization [facility] Address [address] [place] [address] Care Team Providers Name Role Phone Unavailable Primary Care Provider Unavailable Encounter Details Date Type Department Care Team Description 07/12/2009 Hospital Encounter HX [facility] Shannon Barrett M.D. [address] [place] [address] (Wo rk) Social History Tobacco Use Types Packs/Day Years Used Date Smoking Tobacco: Never Assessed Sex Assigned at Date Recorded Female 07/10/2022 7:32 AM CDT documented as of this encounter Progress Notes Shannon Barrett M.D. - 07/12/2009 10:30 AM CDT [id number] SUBJECTIVE: Zandra Lopez is an 48 year old female who presents for evaluation of Hypertension,hypothyroidism and Depression. HYPERTENSION: The patient has a history of hypertension of moderate severity and long standing duration. Patients blood pressures have been in the acceptable range.. She indicates that She is feeling well and denies any symptoms referable to Her elevated blood pressure. Specifically denies chest pain, palpitations, dyspnea, orthopnea, PND or peripheral edema. Current medication regimen is as listed below. Patient denies any side effects of medication. Cardiovascular risk factors: hypertension Use of agents associated with hypertension: none History of renal disease: negative History of flank trauma: negative Watching Diet: yes Watching Salt: yes Aerobic Activity: no HYPOTHYROIDISM: The patient has a history of hypothyroidism of moderate severity and long standing duration. The patient is presently taking medication and denies symptoms of fatigue, palpitations, heat or cold intolerance, weight gain of loss, or change in bowl habits. Patient denies any modifying factors. Last TSH: TSH 0.48 10/12/08 Depression:Pt has a longstanding histroy of moderate depression well controlled on current meds.Pt denies any recent exacerbations.Current symptoms are negative for depressed mood, hopelessness, diminished interest or pleasure in activities, weight loss, decreased appetite, excessive sleepiness, psychomotor agitation, fatigue, feelings of worthlessness, feelings of guilt, difficulty with concentration, recurrent thoughts of or suicide, anxiety, irritablility.Pt continues to have problems with insomnia and is using Ambien on a prn basis. Current outpatient prescriptions Medication Sig SYNTHROID 75 MCG OR TABS one daily ADALAT CC### 30 MG OR TBCR 1 TABLET DAILY AMBIEN 10 MG OR TABS ONE AT BEDTIME, NEEDED ACTONEL 35 MG OR TABS 1 TABLET WEEKLY TAKEN 30 MINUTES BEFORE A MEAL IBUPROFEN 200 MG OR CAPS 2 tabs and limits to 4 daily CALCIUM + D OR 1 TABLET DAILY ASPIRIN 81 MG OR CPEP 1 CAPSULE DAILY MULTI-DAY/CALCIUM/EXTRA IRON OR None Entered Allergies Allergen Reactions Latex rash, hives History Substance Use Topics Tobacco Use: Yes -- 1.0 packs/day for 20 years 1 pack per day Alcohol Use: Yes social--6 beers/week Past Medical History Diagnosis Date CARPAL TUNNEL SYNDROME HYPERTENSION NOS Essential hypertension HYPOTHYROIDISM NOS Hypothyroidism ABSENCE OF MENSTRUATION 2003 Family History Problem Relation Allergies Mother Allergies Sister Arthritis Sister self Cancer Father skin Cancer Paternal Aunt unknown location Hypertension Sister Hypertension Father Stroke Father age 74 (has had multiple) Breast CA Paternal Aunt and her 2 daughters Review Of Systems ROS: General: negative for, fever, chills, night sweats, unplanned weight loss, headaches, dizziness, fatigue, weakness Skin: negative for, pigmentation, rash, scaling, itching, bruising Eyes: negative ENT: negative Resp: negative for, cough, sputum, dyspnea, dyspnea on exertion and wheezing CV: negative for, palpitations, tachycardia, irregular heart beat, chest pain, exertional chest painor pressure, paroxysmal nocturnal dyspnea, dyspnea on exertion, orthopnea and lower extremity edema GI: negative for, poor appetite, dysphagia, nausea, vomiting, heartburn, dyspepsia, reflux and abdominal pain : negative Musculoskeletal: negative Neurologic: negative Psychiatric: negative Hematologic: negative Endocrine: negative OBJECTIVE: BP 120/66 Pulse 79 Temp (Src) 97.7 ??F (36.5 ??C) (Temporal) Ht 5' 4 (1.626 m) Wt 142 lb (64.411 kg) LMP Postmenopausal Home monitoring: yes Repeat BP R arm seated = 118/70 with regular size cuff. Pt is well nourished.Is alert aand oriented and in no acute distress.Mood is good and affect appropriate.Answers questions appropriately. Neck: Supple,no palpable lymph nodes, no JVD, no carotid bruits. Thyroid: normal to inspection and palpation Lungs: negative,Percussion normal. Good diaphragmatic excursion. Lungs clear Heart: negative,PMI normal. No lifts, heaves, or thrills. RRR. No murmurs, clicks gallops or rub Pedal edema: no Psych: Patient appears stated age. Is resting comfortably. Is dressed neatly and appropriately. Is able to maintain good eye contact throughout the interview. The patient is cooperative and pleasant and forthcoming with the information. The patient is alert, oriented, fully. Appears to be a reliable historian. Mood is appropriate. Affect is broad. Speech is of normal quality. Coherent, logical and distinct. No evidence of thought abnormalities. Thought processes are logical, clear and goal oriented.No evidence of auditory hallucinations or delusion. Judgement intact. Font of knowledge intact. Abstract reasoning within normal limits. Denies any current suicidal or homicidal ideation. Labs pending with patient: CBC, TSH and kidney functions ASSESSMENT: ESSENTIAL HYPERTENSION, BENIGN UNSPECIFIED HYPOTHYROIDISM DEPRESSIVE DISORDER, NOT ELSEWHERE CLASSIFIED Plan:HTN 1) Medication: continue current medication regimen unchanged 2) Dietary sodium restriction 3) Regular aerobic exercise 4) Recheck in 6 months, sooner should new symptoms or problems arise. 5) Recommend BP checks as often as possible.If BP readings are consistently higher than 135/85,then return to clinic for adjustment of your meds. Patient Education: Reviewed risks of hypertension and principles of Treatment. PLAN: Hypothyroidism 1) Will check TSH and adjust medications. 2) Recheck TSH in 6 months. 3) Continue to observe for signs / symptoms of hypothyroidism. Depression:The current medical regimen is effective; continue present plan and medications. Source: [facility] Document Id: [id number] Electronically signed by Conversion, [facility] Food And Nutrition Teacher [id number] at 04/28/2017 9:24 PM CDT documented in this encounter Miscellaneous Notes Miscellaneous - Shannon Barrett M.D. - 07/12/2009 10:30 AM CDT [id number] Zandra Brandon Lopez [address] [address] November 09, 2009 Dear Ms. Zandra Taylor Jessica: I am writing to inform you of the results of the laboratory tests you had done recently. The resultsof your recent labs are as noted. CBC results are as follows: White Blood Cell Count: WBC 9.6 07/12/09 normal 4.5-11.0 Hemoglobin: HGB 14.5 07/12/09 normal 11-13 Platelets: PLT 383 07/12/09 normal 150-450 Your glucose (blood sugar) value is: GLC 112 07/12/09 Normal is between 60 and 115. Your potassium level: POTASSIUM 4.5 07/12/09 Normal 3.5 - 5.2. Your blood urea nitrogen(BUN) is: BUN 13 07/12/09 Normal 5-24 Your creatinine (kidney test) is as follows: CR 0.72 07/12/09 Normal range is 0.6-1.3 (female) Your thyroid blood test:TSH 0.57 07/12/09 Normal 0.34-4.82 Thank you for allowing me to participate in your care. If you have any further questions or problems, please contact me at [phone] in Internal Medicine. Sincerely, (electronically signed to expedite delivery) Shannon Barrett M.D. INTERNAL MEDICINE Source: [facility] Document Id: [id number] Electronically signed by Gabriela [facility] Food And Nutrition Teacher [id number] at 04/28/2017 9:24 PM CDT documented in this encounter Plan of Treatment Upcoming Encounters Date Type Specialty Care Team Description 08/30/2022 Diagnostic Neurology Karin Ramachandran M.D., M.P.H. [address] [place], [place] [phone] (Wo rk) 10/10/2022 Office Visit Neurology Karin Ramachandran M.D., M.P.H. [address] [place], [place] [phone] (Wo rk) documented as of this encounter Visit Diagnoses Not on filedocumented in this encounter
--- OUTSIDE RECORDS SUMMARY | 2022-08-29 10:32 | XMS_ITS | Encounter Summary ---
:1960 Author Organization [facility] Address [address] [place] [address] Care Team Providers Name Role Phone Unavailable Primary Care Provider Unavailable Encounter Details Date Type Department Care Team Description 03/23/2010 Hospital Encounter HX [facility] Aurelia Fernández M.D. [address] [place] [address] (Wo rk) Social History Tobacco Use Types Packs/Day Years Used Date Smoking Tobacco: Never Assessed Sex Assigned at Date Recorded Female 07/10/2022 7:32 AM CDT documented as of this encounter Miscellaneous Notes Telephone Encounter - Conversion, Historical Provider Ser - 03/23/2010 12:00 AM CDT [id number] Situation/What is the patients concern/need: patient called and has yeast infection Clinical Background/Recent Intervention: Last seen by you for refills 02/01 Recommendation/Patient Request: Was wondering if she could get a rx of diflucan to [facility] Best number(s) to reach patient: [phone] (home) Source: [facility] Document Id: [id number] Telephone Encounter - Faye Liao M.D. - 03/23/2010 12:00 AM CDT [id number] Forwarding to PCP. I did not discuss or prescribe anything related to yeast infections with her at that appt in January. Source: [facility] Document Id: [id number] Electronically signed by Conversion, [facility] Technology Development Intern [id number] at 04/28/2017 12:55 PM CDT Telephone Encounter - Shannon Barrett M.D. - 03/23/2010 12:00 AM CDT [id number] Recommend that pt be seen and diagnosis confirmed prior to meds..She has no reason to get a yeast infection,so it may be bacterial vaginosis. Source: [facility] Document Id: [id number] Electronically signed by Conversion, [facility] Technology Development Intern [id number] at 04/28/2017 12:55 PM CDT Telephone Encounter - Conversion, Historical Provider Ser - 03/23/2010 12:00 AM CDT [id number] Left message to call Source[facility] Document Id: [id number] Telephone Encounter - Conversion, Historical Provider Ser - 03/23/2010 12:00 AM CDT [id number] patient called and she got otc meds to try and if not better by Saturday will call to be seen Source[facility] Document Id: [id number] documented in this encounter Plan of Treatment Upcoming Encounters Date Type Specialty Care Team Description 08/30/2022 Diagnostic Neurology Karin Ramachandran M.D., M.P.H. [address] [place] [phone] (Howie dean) 10/10/2022 Office Visit Neurology Karin Ramachandran M.D., M.P.H. [address] [place] [phone] (Howie dean) documented as of this encounter Visit Diagnoses Not on filedocumented in this encounter
--- OUTSIDE RECORDS SUMMARY | 2022-08-29 10:32 | XMS_ITS | Encounter Summary ---
:1960 Author Organization [facility] Address [address] [place] [address] Care Team Providers Name Role Phone Unavailable Primary Care Provider Unavailable Encounter Details Date Type Department Care Team Description 03/17/2014 Hospital Encounter [facility] Aurelia Milligan M.D. [address] [place] [address] (Howie dean) Social History Tobacco [...] Karin Ramachandran M.D., M.P.H. [address] [place] [phone] (Howie dean) 10/10/2022 Office Visit Neurology Karin Ramachandran M.D., M.P.H. [address] [place] [phone] (Howie dean) documented as of this encounter Visit Diagnoses Not on filedocumented in this encounter
--- OUTSIDE RECORDS SUMMARY | 2022-08-29 10:32 | XMS_ITS | Encounter Summary ---
:1960 Author Organization [facility] Address [address] [place] [address] Care Team Providers Name Role Phone Unavailable Primary Care Provider Unavailable Encounter Details Date Type Department Care Team Description 11/21/2009 Hospital Encounter HX [facility] XRAY Provider, Histori darlin Social History Tobacco Use Types Packs/Day Years Used Date Smoking Tobacco: Never Assessed Sex Assigned at Date Recorded Female 07/10/2022 7:32 AM CDT documented as of this encounter Plan of Treatment Upcoming Encounters Date Type Specialty Care Team Description 08/30/2022 Diagnostic Neurology Karin Ramachandran M.D., M.P.H[facility] [address] [phone] (Howie dean) 10/10/2022 Office Visit Neurology Karin Ramachandran M.D., M.P.H. [address] [phone] (Howie dean) documented as of this encounter Visit Diagnoses Not on filedocumented in this encounter
--- OUTSIDE RECORDS SUMMARY | 2022-08-29 10:32 | XMS_ITS | Encounter Summary ---
:1960 Author Organization [facility] Address [address] [place] [address] Care Team Providers Name Role Phone Unavailable Primary Care Provider Unavailable Encounter Details Date Type Department Care Team Description 11/14/2009 Hospital Encounter [facility]X [facility] Shannon Patton M.D. [address] [place], [place] [phone] (Howie rk) Social History Tobacco Use Types Packs/Day Years Used Date Smoking Tobacco: Never Assessed Sex Assigned at Date Recorded Female 07/10/2022 7:32 AM CDT documented as of this encounter Plan of Treatment Upcoming Encounters Date Type Specialty Care Team Description 08/30/2022 Diagnostic Neurology Karin Ramachandran M.D., M.P.H. [address] [phone] (Wo rk) 10/10/2022 Office Visit Neurology Karin Ramachandran M.D., M.P.H. [address] [phone] (Wo rk) documented as of this encounter Visit Diagnoses Not on filedocumented in this encounter
--- OUTSIDE RECORDS SUMMARY | 2022-08-29 10:32 | XMS_ITS | Encounter Summary ---
:1960 Author Organization [facility] Address [address] [place] [address] Care Team Providers Name Role Phone Unavailable Primary Care Provider Unavailable Encounter Details Date Type Department Care Team Description 01/30/2010 Hospital Encounter [facility] Aurelia Liao M.D. [address] [place] [address] (Wo rk) Social History Tobacco Use Types Packs/Day Years Used Date Smoking Tobacco: Never Assessed Sex Assigned at Date Recorded Female 07/10/2022 7:32 AM CDT documented as of this encounter Progress Notes Faye Liao M.D. - 01/30/2010 9:30 AM CST [id number] Here for follow up of insomnia. Needs refills on all meds. She has not been taking her Ambien Cr every night, because it doesn't work as well as the regular Ambien. Takes it about 2-3 times a week. GOes to bed between 7:30 and 9. Wakes up at 4:30am. Does not have excessive daytime sleepiness. Does notnap. Occasional snoring. Sleeps through the night. No restless leg symptoms. The Ambien CR did not work at all, and had no specific side effects. SH: Still smoking, but trying to quit. Tried Chantix and it did not work. Wants to quit cold turkey but has not picked quit date yet. FH: no colon CA ROS: Constitutional: negative for weight loss, fevers, or chills, occasional improving hot flashes Cardiovascular: negative for CP, VILLAFANA Respiratory: negative for cough, wheeze GI: negative for abd pain, N/V/D/constipation, or heartburn : negative for hematuria, dysuria Skin: negative for rash or sores Endocrine: negative for heat/cold intolerance or hair changes Neurologic: negative for BAUER, dizziness, weakness, numbness or tingling Musculoskeletal: negative for significant arthralgias or myalgias Psych: negative. Mood normal. Sleep has been as above. All: Latex Medications as of 01/30/2010: Current outpatient prescriptions Medication Sig AMLODIPINE BESYLATE 10 MG OR TABS 1 TABLET DAILY SYNTHROID 75 MCG OR TABS one daily AMBIEN CR 12.5 MG OR TBCR 1 TABLET AT BEDTIME ACTONEL 150 MG OR TABS 1 TABLET MONTHLY 30 MIN BEFORE MEAL WITH WATER IBUPROFEN 200 MG OR CAPS 2 tabs and limits to 4 daily CALCIUM + D OR 1 TABLET DAILY ASPIRIN 81 MG OR CPEP 1 CAPSULE DAILY MULTI-DAY/CALCIUM/EXTRA IRON OR None Entered BP 118/80 Pulse 84 Temp(Src) 99.2 ??F (37.3 ??C) (Temporal) Ht 5' 3 (1.6 m) Wt 138 lb (62.596 kg) LMP 12/16/2002 General: alert, NAD, healthy appearance Skin: warm, dry, no rashes or concerning lesions HEENT: Eyes PERRL, EOMI Nose: no discharge Throat: Moist mucosa, no lesions Neck: supple, no lymphadenopathy, no JVD, thyroid smooth without nodules or enlargement Lungs: clear bilaterally, normal work of breathing CV: regular rate and rhythm, normal S1 and S2, no murmurs, rubs, or gallops Abd: soft, nontender, nondistended Ext: no edema, clubbing, or cyanosis Psych: normal speech and affect, normal thought content ASSESSMENT/PLAN: 1) Insomnia: Patient has no red flags for narcolepsy or restless leg syndrome. Will refill Ambien 10mg and d/c Ambien CR. Patient to call or return if side effects, which have been discussed, or needing more than 3 times a week. 2) HTN: Well controlled. Continues to exercise to lose weight at slow pace. Continue amlodipine. 3) Hypothyroidism: Last TSH 6 months ago wnl, with no symptoms or signs of under or over-replacement. Continue 75 mcg and monitor. 4) Health maintenance: Overdue for pap and pelvic and now due for colon cancer screening. Discussed in detail with patient and she elects to defer to next appt within 1-2 months, or she will call to have colonoscopy ordered. Smoking cessation advised and offered support. Source: [facility] Document Id: [id number] documented in this encounter Plan of Treatment Upcoming Encounters Date Type Specialty Care Team Description 08/30/2022 Diagnostic Neurology Karin Ramachandran M.D., M.P.H[facility] [address] [phone] (Wo rk) 10/10/2022 Office Visit Neurology Karin Ramachandran M.D., M.P.H[facility] [address] [phone] (Wo rk) documented as of this encounter Visit Diagnoses Not on filedocumented in this encounter
--- OUTSIDE RECORDS SUMMARY | 2022-08-29 10:32 | XMS_ITS | Encounter Summary ---
:1960 Author Organization [facility] Address [address] [place] [address] Care Team Providers Name Role Phone Unavailable Primary Care Provider Unavailable Encounter Details Date Type Department Care Team Description 01/07/2013 Hospital Encounter HX NO MAPPING Abelardo Liao M.D. [address] [place], [place] [phone] (Wo rk) Social History Tobacco Use Types Packs/Day Years Used Date Smoking Tobacco: Never Assessed Sex Assigned at Date Recorded Female 07/10/2022 7:32 AM CDT documented as of this encounter Plan of Treatment Upcoming Encounters Date Type Specialty Care Team Description 08/30/2022 Diagnostic Neurology Karin Ramachandran M.D., M.P.H[facility] [address] [phone] (Wo rk) 10/10/2022 Office Visit Neurology Karin Ramachandran M.D., M.P.H[facility] [address] [phone] (Wo rk) documented as of this encounter Visit Diagnoses Not on filedocumented in this encounter
--- OUTSIDE RECORDS SUMMARY | 2022-08-29 10:32 | XMS_ITS | Encounter Summary ---
:1960 Author Organization [facility] Address [address] [place] [address] Care Team Providers Name Role Phone Unavailable Primary Care Provider Unavailable Encounter Details Date Type Department Care Team Description 03/17/2014 Hospital Encounter HX [facility] Esvin Patterson M.D. [address] [place], [place] [phone] (Wo rk) Social History [...] of this encounter Miscellaneous Notes Miscellaneous - Mami Saldaña, C.M.A. - 04/05/2014 10:13 AM CDT General Message From: MAMI SALDAÑA [employer] INTEGRATION SENIOR MANAGER ([facility] Nurse) Sent: 04/05/2014 10:13:43 CDT Subject: General Message Prior Auth approval received for patients Zolpiden ER tab 6.25. Approval valid from 03/25/2014 to 03/25/2015 See scanned form Source: [facility] POWERCHART Document Id: [id number] Electronically signed by Conversion, [facility] Classics Teacher [id number] at 04/22/2017 9:43 PM CDT documented in this encounter Plan of Treatment Upcoming Encounters Date Type Specialty Care Team Description 08/30/2022 Diagnostic Neurology Karin Ramachandran M.D., M.P.H[facility] [address] [phone] (Howie dean) 10/10/2022 Office Visit Neurology Karin Ramachandran M.D., M.P.H[facility] [address] [phone] (Howie dean) documented as of this encounter Visit Diagnoses Not on filedocumented in this encounter
--- OUTSIDE RECORDS SUMMARY | 2022-08-29 10:32 | XMS_ITS | Encounter Summary ---
:1960 Author Organization [facility] Address [address] [place] [address] Care Team Providers Name Role Phone Unavailable Primary Care Provider Unavailable Encounter Details Date Type Department Care Team Description 12/05/2009 Hospital Encounter [facility] Shannon Buitrago M.D. [address] [place] [phone] (Wo rk) Social History Tobacco Use Types Packs/Day Years Used Date Smoking Tobacco: Never Assessed Sex Assigned at Date Recorded Female 07/10/2022 7:32 AM CDT documented as of this encounter Miscellaneous Notes Miscellaneous - Jordyn Hoskins R.N. - 12/05/2009 12:00 AM CST [id number] Zandra Lopez [id number] [address] December 05, 2009 Dear Zandra, Your current medication request for Amlodipine will be approved for one refill but you will need to be seen before any additional refills can be approved. The reason a visit needed is: At your last visit on 07/12/[address] Barrett she advised a recheck in clinic for Blood pressure and Thyroid in 6 months. Please bring all medications (in original containers) to your appointment. Taking care of your health is important to us, and ongoing visits with your provider are vital to your care. We look forward to seeing you in the near future. You may call our office at [phone] in Internal Medicine to schedule a visit. Please disregard this notice if you have already made an appointment. Sincerely, INTERNAL MEDICINE [facility], [address] [place], [place] [address] [address] Source: [facility] Document Id: [id number] Electronically signed by Conversion, [facility] Leasing Machine Tender [id number] at 04/28/2017 8:14 AM CDT Telephone Encounter - Conversion, Historical Provider Ser - 12/05/2009 12:00 AM CST [id number] Accepting this Rx will FAX it directly to the pharmacy. Thank You! Source: [facility] Document Id: [id number] Telephone Encounter - Jordyn Hoskins R.N. - 12/05/2009 12:00 AM CST [id number] Last visit:07/12/09 Last 1 Encounter BP Readings: Date BP 07/12/2009 120/66 Prescription approved for 1 month per RN refill protocol. Letter sent to patient for recheck appt. TSH 0.57 07/12/09 CAD/HTN and/or CHF labs: CR 0.72 07/12/09 POTASSIUM 4.5 07/12/09 Source: [facility] Document Id: [id number] Electronically signed by Conversion, [facility] Leasing Machine Tender [id number] at 04/28/2017 8:14 AM CDT documented in this encounter Plan of Treatment Upcoming Encounters Date Type Specialty Care Team Description 08/30/2022 Diagnostic Neurology Karin Ramachandran M.D., M.P.[facility] [address] [place] [phone] (Howie dean) 10/10/2022 Office Visit Neurology Karin Ramachandran M.D., M.P.H[facility] [address] [place] [phone] (Wo rk) documented as of this encounter Visit Diagnoses Not on filedocumented in this encounter
--- OUTSIDE RECORDS SUMMARY | 2022-08-29 10:32 | XMS_ITS | Encounter Summary ---
:1960 Author Organization [facility] Address [address] [place] [address] Care Team Providers Name Role Phone Unavailable Primary Care Provider Unavailable Encounter Details Date Type Department Care Team Description 07/11/[address] [facility] Shannon Garcia M.D. [address] [place] [phone] (Wo rk) Social History Tobacco Use Types Packs/Day Years Used Date Smoking Tobacco: Never Assessed Sex Assigned at Date Recorded Female 07/10/2022 7:32 AM CDT documented as of this encounter Miscellaneous Notes Telephone Encounter - Conversion, Historical Provider Ser - 07/11/2012 12:00 AM CDT [id number] Zolpidem prior authorization request from [facility]. [facility] prior authorization initiated and faxed. [facility] Document Id: [id number] Telephone Encounter - Conversion, Historical Provider Ser - 07/11/2012 12:00 AM CDT [id number] Rec'd fax from [facility] approving prior auth for Zolpidem granted effective 07/11/2012 to 01/11/2013. Approval faxed to [facility] pharmacy. [facility] Document Id: [id number] documented in this encounter Plan of Treatment Upcoming Encounters Date Type Specialty Care Team Description 08/30/2022 Diagnostic Neurology Karin Ramachandran M.D., [facility] [address] [phone] (Howie dean) 10/10/2022 Office Visit Neurology Karin Ramachandran M.D., [facility] [address] [phone] (Howie dean) documented as of this encounter Visit Diagnoses Not on filedocumented in this encounter
--- OUTSIDE RECORDS SUMMARY | 2022-08-29 10:32 | XMS_ITS | Encounter Summary ---
:1960 Author Organization [facility] Address [address] [place] [address] Care Team Providers Name Role Phone Unavailable Primary Care Provider Unavailable Encounter Details Date Type Department Care Team Description 10/17/2015 Hospital Encounter HX [facility] Aurelia Yadav M.D. [address] [place] [address] (Wo rk) Social History Tobacco Use Types Packs/Day Years Used Date Smoking Tobacco: Never Assessed Sex Assigned at Date Recorded Female 07/10/2022 7:32 AM CDT documented as of this encounter Last Filed Vital Signs Vital Sign Reading Time Taken Comments Blood Pressure 136/82 10/17/2015 9:48 AM 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 Pulse 100 10/17/2015 9:48 AM 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 Temperature - - Respiratory Rate - - Oxygen Saturation - - Inhaled Oxygen Concentration - - Weight 59.1 kg (130 lb 4.7 oz) 10/17/2015 9:48 AM 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 Height 160 cm (5' 2.99) 10/17/2015 9:48 AM 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 Body Mass Index 23.09 10/17/2015 9:48 AM 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 documented in this encounter Medications at Time of Discharge Medication Sig Dispensed Refills Start Date End Date CALCIUM CARB/VIT Calcium 600+D See 0 02/20/2014 D3/MINERALS Instructions, 1 TABLET (CALCIUM-VITAMIN D ORAL) DAILY documented as of this encounter Progress Notes Faye Yadav M.D. - 10/17/2015 9:58 AM CST Clinic Full Note CHIEF COMPLAINT/REASON FOR VISIT HTN, thyroid, ear pain down along jaw line, mammo HISTORY OF PRESENT ILLNESS The patient is here for follow up of the following chronic conditions: HYPERTENSION: The patient has hypertension of moderate severity and long standing duration. Patients blood pressures have been in the normal range. Patient does not perform home BP monitoring. Current treatment includes amlodipine. The patient is compliant with medications and is compliant with a lower sodium diet. Patient denies any symptoms, including CP, VILLAFANA, BAUER, vision change, edema, orthopnea or PND. HYPOTHYROIDISM: Longstanding duration and on medication therapy. Patient is compliant with medication. Currently feels euthyroid. DEPRESSION: Has been longstanding duration and moderate severity, and recently moderately controlled. Last PHQ9=10. #9=0. Current medical therapy is none and she is not interested in medication. Current psychotherapy is none. Self-care includes: not getting much exercise. ANXIETY: Longstanding duration and moderate severity. DJD: Affected joints: neck, shoulders, hands. Current medications. Nodules in R palm and R hand gets numb at night and tingly in the day. She is also due for pap test and breast exam and mammogram. Chronic conditions are stable unless otherwise noted. MEDICATIONS albuterol CFC free 90 mcg/inh inhalation [...] Instructions, None Entered omeprazole, 20 mg, PO, Daily polyethylene glycol [...] Fracture left humerus. SOCIAL HISTORY Date Time: 10/17/2015 09:48 Tobacco: Smoking Status: Current every day smoker Exposure: Patient smokes, Other: .5-1 PPD Alcohol: Use: Yes Recreational Drugs: Use: No Results Found Type: No Results Found FAMILY HISTORY Father:Positive: Hypertension; Skin cancer; Stroke Sister:Positive: Arthritis; Hypertension Aunt (paternal):Positive: Breast cancer; Cancer HEALTH MAINTENANCE Health Maintenance Pending (in the next year) OverDue Screening Pap Smear every 3 years Women Age 30-65 due 07/24/13 and every 3 year(s) Screening Mammogram every 1 year Women 40-75 due 03/18/15 and every 366 day(s) Due Screening Colonoscopy or Flex Sig or Occult Blood due 10/17/15 Variable frequency Due In Future Depression: PHQ-9 every 6 months not due until 04/17/16 and every 183 day(s) Vaccine: Flu every 1 year not due until 06/26/16 and every 7 month(s) Satisfied (in the past 1 year) Satisfied Depression: PHQ-9 every 6 months on 10/17/15. Satisfied by MAMI SALDAÑA [facility] Health Assessment every 1 year on 10/17/15. Satisfied by MAMI SALDAÑA [facility] Vaccine: Flu every 1 year on 10/03/15. Satisfied by [facility] REVIEW GENERAL: no unexplained fevers, chills, or weight loss or gain of more than 10 pounds HEENT: no recurrent sore throats or sinus infections, no hearing, vision, or dental concern, or oral lesions, has had earache in both ears that radiates down both sides of her jaw for the past few weeks, then had a URI CV: no chest pain, no shortness of breath with exertion, no edema, no palpitations RESP: no cough, no shortness of breath, no wheeze GI: no abdominal pain, no frequent heartburn, no nausea, no vomiting, no diarrhea, no constipation,no blood in stool : no hematuria, no dysuria, no abnormal vaginal bleeding or discharge. No history of abnormal pap. Contraception: menopause No breast pain, masses. Has occasional milky thick nipple discharge for many years, unstimulated, was worked up in the past, not worsening. No history of abnormal mammogram MSK: no significant new joint pains, no significant muscle pains NEURO: no focal weakness, syncope, or mental status changes. See above, No headaches SKIN: no rashes, no concerning/changing lesions. On chest, has a 5mm nodule that does not drain or hurt PSYCH: mood is stable, no sleep disturbance, takes ambien CR 1-2 times a week Drinks 2 liquor/water per day VITAL SIGNS Temperature Core: 36.7 Peripheral Pulse Rate: 100 SpO2: 97 BLOOD PRESSURE Systolic Blood Pressure: 136 Diastolic Blood Pressure: 82 MEASUREMENTS Height: 160 Actual Weight: 59.1 Body Mass Index: 23.09 PHYSICAL EXAMINATION GENERAL: Patient appears well nourished and is in no distress. Capable of full communication without difficulty. Patient is polite and cooperative. Appropriately dressed and normal hygiene. HEENT: Normocephalic. EOMI, PERRLA, ear canals patent, TMs normal. Oropharynx without lesion of mucosa. Pharynx rises symmetrically, tonsils not enlarged and without exudate NECK: Supple. No abnormal lymph nodes, no thyromegaly. No JVD. No bruit auscultated. HEART: Regular rate and rhythm. No gallops or rubs noted. No murmurs appreciated. LUNGS: Clear to auscultation bilaterally. No wheeze, no rales. Normal work of breathing. BREASTS: Soft breast tissue without predominant mass or nodularity. No nipple discharge. Nipples everted bilaterally. No axillary or supraclavicular adenopathy. ABDOMEN: Nontender to palpation. No hepato-splenomegaly. No mass. Normal bowel sounds in all 4 quadrants. PELVIS: Normal external genitalia. No vaginal discharge. Mucosa moist and well rugated. Cervix is clear. Pap smear is taken by sure-prep technology. Bimanual exam reveals no adnexal fullness or tenderness. No cervical motion tenderness. Anus appears normal. EXTREMITIES: Warm and well perfused. No cyanosis, clubbing or edema. SKIN: no concerning lesions noted on exposed skin. PSYCHIATRIC: Normal speech and eye contact. Normal affect. Mentation grossly intact. LAB RESULTS -----CHEMISTRY----- Sodium Lvl: 136 10/17/15 Potassium Lvl: 5.5 High 10/17/15 Chloride: 94 Low 10/17/15 CO2: 24 10/17/15 AGAP: 18 10/17/15 Glucose Fastin 10/17/15 Creatinine: 0.48 Low 10/17/15 EGFR (MDRD): >60 10/17/15 EGFR (MDRD): >60 10/17/15 BUN: 6 10/17/15 Calcium Lvl: 9.8 10/17/15 Cholesterol: 258 High 10/17/15 Tri 10/17/15 HDL: 143 10/17/15 LDL Calculated: 96 10/17/15 Chol/HDL Ratio: 2 10/17/15 LDL/HDL: 1 10/17/15 ------ENDOCRINOLOGY----- TSH: 1.84 10/17/15 IMPRESSION/REPORT/PLAN 1. Hypertension HTN Essential Benign Well controlled. Continue present medications. Reviewed management goals, recent lab results, medications and side effects with patient. Renewed amlodipine. 2. Hypothyroidism NOS Stable on replacement medication. Renewed at current dose. 3. Depression NOS Symptomatic but not interested in medication. Recommended several lifestyle changes including cutting back on alcohol intake, more daily exercise, and working on something to inspire and motivate her daily. Follow up as needed. 4. Abuse Tobacco NOS, Tobacco Use Disorder Counseled on quitting. Patient is contemplative. Referred to [place] Quit Plan for more resources. Follow up as needed. Albuterol refilled for prn use. Consider PFTs. 5. Maintenance Health () Due for mammogram. Ordered. Pap test ordered with cotesting. Colonoscopy ordered for November in [place]. 6. R hand pain Recommend decreasing etOH intake as this could represent neuropathy. Does not seem consistent with CTS at this time, but could reconsider if persistent. RTC 1 year or sooner if needed. Electronically Signed By: FAYE YADAV MD On: 10/17/2015 04:53 PM Source: [facility] POWERCHART Document Id: [id number] [employer] documented in this encounter Nursing Notes Mami Saldaña C.M.A. - 10/17/2015 9:53 AM CST Ambulatory Patient Education The following Patient Education Materials have been given to the patient: Patient Education Materials: Ambulatory SMOKING CESSATION Ambulatory How To Quit Smoking Smoking is one of the hardest habits to break. About half of all those who have ever smoked have been able to quit, and most of those (about 70%) who still smoke want to quit. Here are some of the bestways to stop smoking. Keep Trying: It takes most smokers about 8 tries before they are finally able to fully quit. So, the more often you try and fail, the better your chance of quitting the next time! So, don't give up! Go Cold [place]: Most ex-smokers quit cold turkey. Trying to cut back gradually doesn't seem to work as well, perhapsbecause it continues the smoking habit. Also, it i s possible to fool yourself by inhaling more while smoking fewer cigarettes. This results in the same amount of nicotine in your body! Get Support: Support programs can make an important difference, especially for the heavy smoker. These groups offer lectures, methods to change your behavior and peer support. Call the free national Quitline for more information. 512-WDLR-TOB (042-555-9934). Low-cost or free programs are offered by many hospitals,local chapters of the [place] [employer] (335-372-5510) and the [place] [employer] (013-983-4398). Support at home is important too. Non-smokers can help by offering praise and encouragement. If the smoker fails to quit, encourage them to try again! Rewm-Lcc-Zxtljuj Medicines: For those who can't quit on their own, Nicotine Replacement Therapy (NRT) may make quitting much easier. Certain aids such as the nicotine patch, gum and lozenge are available without a prescription. However, it is best to use these under the guidance of your doctor. The skin patch provides a steady supply of nicotine to the body. Nicotine gum and lozenge gives temporary bursts of low levels of nicotine. Both methods take the edge off the craving for cigarettes. WARNING: If you feel symptoms of nicotine overdose, such as nausea, vomiting, dizziness, weakness, or fast heartbeat, stop using these andsee your doctor. Prescription Medicines: After evaluating your smoking patterns and prior attempts at quitting, your doctor may offer a prescription medicine such as bupropion (Zyban, Wellbutrin), varenicline (Chantix, Champix), a niocotine inhaler or nasal spray. Each has its unique advantage and side effects which your doctor can review with you. Health Benefits Of Quitting: The benefits of quitting start right away and keep improving the longer you go without smoking: ?? 20 minutes: blood pressure and pulse return to normal ?? 8 hours: oxygen levels return to normal ?? 2 days: ability to smell and taste begins to improve as damaged nerves start to regrow ?? 2-3 weeks: circulation and lung function improves ?? 1-9 months: decreased cough, congestion and shortness of breath; less tired ?? 1 year: risk of heart attack decreases by half ?? 5 years: risk of lung cancer decreases by half; risk of stroke becomes the same as a non-smoker For information about how to quit smoking, visit the following links: ?? National Cancer [place] , Clearing the Air, Quit Smoking Today - an online booklet. http://www.smokefree.gov/pubs/clearing_the_air.pdf ?? Smokefree.gov http://smokefree.gov/ ?? QuitNet http://www.quitnet.com/ ?? 8789-7485 [place] [address]. All rights reserved. This information is not intended as a substitute for professional medical care. Always follow your healthcare professional's instructions. This document has images extracted. Please consider using [employer] for all your patient education needs. Source: [facility] POWERCHART Document Id: [id number] [employer] documented in this encounter Miscellaneous Notes Miscellaneous - Faye Yadav M.D. - 11/01/2015 7:43 AM CST Normal Results Letter 01 November 2015 CHIP MAI [address] [place] [id number] Dear CHIP MAI, I am pleased to report that your results from your pap and HPV test(s) are normal. You should have another pap test in 5 years (Fall 2019). Please follow up with us as we discussed during your visit orsooner if you have any concerns. If you have questions or concerns, please do not hesitate to call our office. Result Name Current Result Laboratory-Scanned 10/17/2015 Sincerely, FAYE YADAV [address] [place] [id number] Electronic Signature Electronically Signed By: FAYE YADAV MD On: 01 November 2015 This document has images extracted. Source: [facility] KS12 Document Id: [id number] Miscellaneous - Faye Yadav M.D. - 10/17/2015 6:21 PM CST Normal Results Letter 17 October 2015 CHIP MAI [address] [facility] [place] [id number] Dear CHIP MAI, I am pleased to report that your results from the following diagnostic test(s) are normal and stable. Your potassium is a touch high, but you are not on any medications that should affect this and yourkidney function is excellent, so I am not concerned about this. Your HDL (healthy) cholesterol really is super high--this is okay. I did put your cholesterol results in the [place] [employer] Association/[employer] calculator which showed your 10 year risk of heart attack or stroke was6%, reduced to 1.5% if risk factors optimized (Total cholesterol under 170, HDL over 60 (haha!), Topnumber blood pressure 110 or below without medication, no tobacco use, and no diabetes) for a patient similar to you in age, gender, and race. Therefore, no statin medication is indicated at this time,and quitting smoking can delay the day that comes. Fasting blood sugar is normal. Thyroid is stable, so please continue your current dose of levothyroxine. Remember to get regular aerobic and strength based exercise (200 minutes per week), and to make healthy diet choices to maintain or move towards a healthy weight and cholesterol profile.. Please followup with us as we discussed during your visit or sooner if you have any concerns. If you have questions or concerns, please do not hesitate to call our office. Result Name Current Result Previous Result Normal Range Sodium Lvl (mmol/L) 136 10/17/2015 (L) 131 05/19/2014 135 - 145 Potassium Lvl (mmol/L) (H) 5.5 10/17/2015 3.6 - 5.2 Chloride (mmol/L) (L) 94 10/17/2015 98 - 107 CO2 (mmol/L) 24 10/17/2015 22 - 29 AGAP (mmol/L) 18 10/17/2015 10 - 20 Glucose Fasting (mg/dL) 90 10/17/2015 70 - 99 Creatinine (mg/dL) (L) 0.48 10/17/2015 0.60 - 1.10 EGFR (MDRD) (mL/min/1.73m2) >60 10/17/2015 >=60 - EGFR (MDRD) (mL/min/1.73m2) >60 10/17/2015 >=60 - BUN (mg/dL) 6 10/17/2015 6 - 21 Calcium Lvl (mg/dL) 9.8 10/17/2015 8.6 - 10.3 Cholesterol (mg/dL) (H) 258 10/17/2015 - <=199 Trig (mg/dL) 95 10/17/2015 - <=149 HDL (mg/dL) 143 10/17/2015 >=50 - LDL Calculated (mg/dL) 96 10/17/2015 - <=129 Chol/HDL Ratio 2 10/17/2015 60 LDL/HDL 1 10/17/2015 TSH (mIU/L) 1.84 10/17/2015 0.27 - 4.20 Sincerely, FAYE YADAV [facility] [place] [address] Electronic Signature Electronically Signed By: FAYE YADAV MD On: 17 October 2015 This document has images extracted. Source: [facility] POWERCHART Document Id: [id number] Miscellaneous - Faye Yadav M.D. - 10/17/2015 4:56 PM CST Ambulatory [facility] [address] [id number] Visit Information Name: CHIP MAI [facility] Number: [id number] Current Date: 10/17/2015 16:56:45 Physicians Attending Provider: FAYE YADAV MD Primary [...] Wheezing use with spacer chamber Routed to [address] [address] amLODIPine (amLODIPine 5 mg oral tablet) 5 mg, Oral, once a day Routed to [address] [address] aspirin (aspirin 81 mg oral [...] mcg, Oral, once a day Routed to [facility] [address] [address] loratadine (loratadine 10 mg oral tablet) 1 [...] not crush or chew / Cub in [place] fax [phone] This is a CHANGE Routed to Printer * You have let us know that you are not taking this medication as listed. Please talk with your primary care provider or the health care provider who prescribed the medication as soon as possible. Stop Taking the Following Medications: Medication list as of 10-17-15 16:56 Attention: If you have any medications at [...] Electronically Signed By: FAYE YADAV MD Signed On:17-OCT-2015 16:56:35 Your Allergies & Intolerances Substance Reaction Symptoms [...] Your Upcoming Appointments Date Time Location Provider 11/16/2015 10:40 [facility] Mammo-[facility] MA RM 1 Attention: Contact your local Clinic if further appointment detail needed. How To Quit Smoking Smoking is one of the hardest habits to break. About half of all those who have ever smoked have been able to quit, and most of those (about 70%) who still smoke want to quit. Here are some of the bestways to stop smoking. Keep Trying: It takes most smokers about 8 tries before they are finally able to fully quit. So, the more often you try and fail, the better your chance of quitting the next time! So, don't give up! Go Cold [place]: Most ex-smokers quit cold turkey. Trying to cut back gradually doesn't seem to work as well, perhapsbecause it continues the smoking habit. Also, it is possible to fool yourself by inhaling more whilesmoking fewer cigarettes. This results in the same amount of nicotine in your body! Get Support: Support programs can make an important difference, especially for the heavy smoker. These groups offer lectures, methods to change your behavior and peer support. Call the free national Quitline for more information. 220-NUQK-HNK (782-122-7068). Low-cost or free programs are offered by many hospitals,local chapters of the [place] [employer] Association (458-967-5459) and the [employer] (169-770-9682). Support at home is important too. Non-smokers can help by offering praise and encouragement. If the smoker fails to quit, encourage them to try again! Fmpc-Qmk-Qjbolqk Medicines: For those who can't quit on their own, Nicotine Replacement Therapy (NRT) may make quitting much easier. Certain aids such as the nicotine patch, gum and lozenge are available without a prescription. However, it is best to use these under the guidance of your doctor. The skin patch provides a steady supply of nicotine to the body. Nicotine gum and lozenge gives temporary bursts of low levels of nicotine. Both methods take the edge off the craving for cigarettes. WARNING: If you feel symptoms of nicotine overdose, such as nausea, vomiting, dizziness, weakness, or fast heartbeat, stop using these andsee your doctor. Prescription Medicines: After evaluating your smoking patterns and prior attempts at quitting, your doctor may offer a prescription medicine such as bupropion (Zyban, Wellbutrin), varenicline (Chantix, Champix), a niocotine inhaler or nasal spray. Each has its unique advantage and side effects which your doctor can review with you. Health Benefits Of Quitting: The benefits of quitting start right away and keep improving the longer you go without smoking: ?? 20 minutes: blood pressure and pulse return to normal ?? 8 hours: oxygen levels return to normal ?? 2 days: ability to smell and taste begins to improve as damaged nerves start to regrow ?? 2-3 weeks: circulation and lung function improves ?? 1-9 months: decreased cough, congestion and shortness of breath; less tired ?? 1 year: risk of heart attack decreases by half ?? 5 years: risk of lung cancer decreases by half; risk of stroke becomes the same as a non-smoker For information about how to quit smoking, visit the following links: ?? National Cancer [place] , Clearing the Air, Quit Smoking Today - an online booklet. http://www.smokefree.gov/pubs/clearing_the_air.pdf ?? Smokefree.gov http://smokefree.gov/ ?? QuitNet http://www.quitnet.com/ ?? 3778-7592 Alida Hanson, [address] [place] [address], [place] [address]. All rights reserved. This information is not intended as a substitute for professional medical care. Always follow your healthcare professional's instructions. Consider Using Patient Online Services Patient Online [...] if you dont have one. Go to [email or web address] and click on Create Your Account. Then, follow the directions to complete the online form. Youll be asked for your [facility] number which you can find at the top of this document. Your Goals/Additional instructions: This document has images extracted. Please consider using [employer] for all your patient education needs. Source: [facility] POWERCHART Document Id: [id number] [employer] DES[employer] Miscellaneous - Faye Yadav M.D. - 10/17/2015 4:56 PM CST Ambulatory Discharge Medication List [address] [id number] Visit Information Name: CHIP MAI [facility] Number: [id number] Visit Date: 10/17/2015 16:56:44 Attending Provider: FAYE YADAV MD Primary Care [...] Wheezing use with spacer chamber Routed to [address] [address] amLODIPine (amLODIPine 5 mg oral tablet) 5 mg, Oral, once a day Routed to [address] [address] aspirin (aspirin 81 mg oral [...] mcg, Oral, once a day Routed to [address] [address] loratadine (loratadine 10 mg oral tablet) 1 [...] not crush or chew / Cub in [place] fax [phone] This is a CHANGE Routed to Printer * You have let us know that you are not taking this medication as listed. Please talk with your primary care provider or the health care provider who prescribed the medication as soon as possible. Stop Taking the Following Medications: Medication list as of 10-17-15 16:56 Attention: If you have any medications at [...] Electronically Signed By: FAYE YADAV MD Signed On:17-OCT-2015 16:56:35 Additional Information: Source: [facility] POWERCHART Document Id: [id number] [employer] Miscellaneous - Saldaña, Mami L, C.M.A. - 10/17/2015 11:06 AM CST Ambien From: MAMI SALDAÑA CMA ([facility] Nurse) Sent: 10/17/2015 11:06:14 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 Subject: Ambien Rx for Ambien faxed to pharmacy. Source: [facility] POWERCHART Document Id: [id number] Miscellaneous - Mami Saldaña C.M.A. 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 Intake/History Entered On: 10/17/2015 9:52 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 Performed On: 10/17/2015 9:48 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 by MAMI SALDAÑA CMA Intake Chief Complaint : HTN, thyroid, ear pain down along jaw line, mammo Temperature Core : 36.7 DegC(Converted to: 98.1 DegF) Peripheral Pulse Rate : 100 /min Systolic Blood Pressure : 136 mmHg Diastolic Blood Pressure : 82 mmHg NIBP Mean : 100 mmHg BP Location : Left upper extremity Blood Pressure Cuff Size : Regular SpO2 : 97 % Height : 160 cm(Converted to: 5 ft 3 inch(es), 63 inch(es)) Actual Weight : 59.1 kg(Converted to: 130 lb 5 oz) Weight Source : Standing scale Dosing Weight Clinic : 59.1 kg Clinic BSA : 1.62 Body Mass Index : 23.09 kg/m2 MAMI SALDAÑA CMA - 10/17/2015 9:48 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 General Info Information Given By : Patient Languages : Ethiopian Is Patient Female and 13-50 no hysterectomy : No MAMI SALDAÑA CMA - 10/17/2015 9:48 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 Subjective Pain Symptoms : No MAMI SALDAÑA CMA - 10/17/2015 9:48 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 Dependent Habits Tobacco Use/Currently Using : Yes Exposure to Tobacco Smoke : Patient smokes, Other: .5-1 PPD Smoking Status : Current every day smoker MAMI SALDAÑA CMA - 10/17/2015 9:48 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 Tobacco Use Grid Type : Cigarettes Cigarette Use Packs/Day : 0.5 MAMI SALDAÑA [facility] - 10/17/2015 9:48 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 Caffeine Use Grid Caffeine Use : Current Type : Coffee Frequency : Daily Amount : 3-4 cups MAMI SALDAÑA [facility] - 10/17/2015 9:48 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 Source: [facility] POWERCHART Document Id: [id number] 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!37 STRIAL RETROFIT DESIGNER Miscellaneous - Mami Saldaña C.M.AEvans - 10/17/2015 9:47 AM CST Health Assessment Health Assessment Entered On: 10/17/2015 9:48 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 Performed On: 10/17/2015 9:47 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 by MAMI SALDAÑA [facility] Health Assessment Complete Health Assessment Complete or Modified : Annual Health Assessment Annual Health Assessment Completed : Yes MAMI SALDAÑA [facility] - 10/17/2015 9:47 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 Nutrition Nutrition Risk Factors by History Adult : None MAMI SALDAÑA [facility] - 10/17/2015 9:47 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 Functional Current Daily Living Assistance : None MAMI SALDAÑA [facility] - 10/17/2015 9:47 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 Dependent Habits Tobacco Use/Currently Using : Yes Exposure to Tobacco Smoke : Patient smokes, Other: .5-1 PPD Smoking Status : Current every day smoker MAMI SALDAÑA [facility] - 10/17/2015 9:47 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 Tobacco Use Grid Type : Cigarettes Cigarette Use Packs/Day : 0.5 MAMI SALDAÑA [facility] - 10/17/2015 9:47 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 Alcohol Use : Yes MAMI SALDAÑA [facility] - 10/17/2015 9:47 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 AUDIT Tool How Often Do You Have A Drink : 4 or more times a week How Many Drinks in a Day When Drinking : 5 or 6 Six or More Drinks On One Occassion : Daily or almost daily Audit Phase 1 Score : 10 MAMI SALDAÑA [facility] - 10/17/2015 9:47 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 Psychosocial Domestic Abuse Concerns : None Behavioral Health Screen/Safety Assmt : No Restorationist Preference : No qualifying data available. MAMI SALDAÑA [facility] - 10/17/2015 9:47 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 Advance Directive Advanced Directives : No Advance Directive Additional Information : No MAMI SALDAÑA [facility] - 10/17/2015 9:47 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 Educ Needs Learning Style Preference Adult Grid Patient : None Family : None MAMI SALDAÑA [facility] - 10/17/2015 9:47 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 Source: [facility] KS12 Document Id: [id number] 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!33 STRIAL RETROFIT DESIGNER Miscellaneous - Mami Saldaña, C.M.A. - 10/17/2015 9:46 AM CST PHQ-9 PHQ-9 Entered On: 10/17/2015 9:47 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 Performed On: 10/17/2015 9:46 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 by MAMI SALDAÑA [facility] PHQ-9 Little interest or pleasure in doing things : Several days Feeling down, depressed, or hopeless : Not at all Trouble falling or staying asleep, or sleeping too much : Nearly every day Feeling tired or having little energy : Nearly every day Poor appetite or overeating : Nearly every day Feeling bad about yourself or that you are a failure : Not at all Trouble concentrating on things : Not at all Moving or speaking slowly; restless or fidgety : Not at all Thoughts that you would be better off /hurting self : Not at all PHQ-9 Calculated Score : 10 Problems make work, home, or dealing with others : Somewhat difficult MAMI SALDAÑA [facility] - 10/17/2015 9:46 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 Source: [facility] [place]12 Document Id: [id number] 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!13 STRIAL RETROFIT DESIGNER documented in this encounter Plan of Treatment Upcoming Encounters Date Type Specialty Care Team Description 08/30/2022 Diagnostic Neurology Karin Ramachandran M.D., M.P.H. [address] [place] [phone] (Howie dean) 10/10/2022 Office Visit Neurology Karin Ramachandran M.D., M.P.H. [address] [place] [phone] (Wo rk) documented as of this encounter Procedures Procedure Name Priority Date/Time Associated Diagnosis Comme nts LIPID PANEL, S Routine 10/17/2015 10:40 AM Result s for this 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 procedure are i n the results section. THYROID-STIMULATING Routine 10/17/2015 10:40 AM R esults for this HORMONE-SENSITIVE 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 procedure are in (S-TSH) the results section. BASIC METABOLIC Routine 10/17/2015 10:40 AM Resul ts for this PANEL, S/P 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 procedure are i n the results section. PATHOLOGY ELECTRON GUN INSPECTOR Routine 10/17/2015 12:00 AM Results for this CYTOLOGY 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 procedure are i n the results section. documented in this encounter Results (ABNORMAL) BMP (Basic Metabolic Panel) (10/17/2015 10:40 AM 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) Analysis Performed At Patho logist Time Signature Chloride, S 94 (L) 98 - 107 POWERCHART MMOLL Sodium, S 136 135 - 145 POWERCHART MMOLL Potassium, S 5.5 (H) 3.6 - 5.2 POWERCHART MMOLL Anion Gap 18 10 - 20 POWERCHART MMOLL BUN (Blood Urea 6 6 - 21 POWERCHART Nitrogen), S MGDL CO2 Total 24 22 - 29 POWERCHART MMOLL Creatinine 0.48 (L) 0.60 - POWERCHART 1.10 MGDL Glucose, 90 70 - 99 POWERCHART Fasting, S MGDL Calcium, Total, 9.8 8.6 - 10.3 POWERCHART S MGDL eGFR >60 >=60 POWERCHART Black/ [id number] German HXeGFR (MDRD) >60 >=60 POWERCHART [id number] Comment: Results are in mL/min/1.73m CKD Stage I: ? GFR > 90 CKD Stage II: ?GFR 60 to 89 CKD Stage III: ? GFR 30 to 59 CKD Stage IV: ? GFR 15 to 29 CKD Stage V: ?GFR < 15 or Dialysi s Specimen (Source) Anatomical Collection Method Collection Time Re ceived Time Location / / Volume Laterality Blood 10/17/2015 10:40 AM 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 Faye Yadav M.D. LAB BLOOD ADD-ON Performing Organization Address City/State/ZIP Code Phon e Number POWERCHART Thyroid-Stimulating Hormone-Sensitive (s-TSH) (10/17/2015 10:40 AM 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) P athologist Signature TSH 1.84 0.27 - 4.20 POWERCHART (Thyrotropin) MIUL Specimen (Source) Anatomical Collection Method Collection Time Re ceived Time Location / / Volume Laterality Blood 10/17/2015 10:40 AM 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 Faye Yadav M.D. LAB BLOOD ADD-ON Performing Organization Address City/State/ZIP Code Phon e Number POWERCHART (ABNORMAL) Lipid Panel (10/17/2015 10:40 AM 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) P athologist Signature Cholesterol, 258 (H) <=199 MGDL POWERCHART Total Comment: 2014 National Lipid Association recommen dations for Total Cholesterol in adults ages 18 and up: Desirable <200 mg/dL Borderline high 200-239 mg/dL High 240 mg/dL 2014 National Lipid Association recommen dations for Total Cholesterol in children ages 2 to 17. Acceptable <170 mg/dL Borderline High 170-199 mg/dL High 200 mg/dL Triglycerides 95 <=149 MGDL POWERCHART Comment: 2014 National Lipid Association recommen dations for Triglycerides in adults ages 18 and up: Normal <150 mg/dL Borderline High 150-199 mg/dL High 200-499 mg/dL Very High 500 mg/dL 2014 National Lipid Association recommen dations for Triglycerides in children ages 2 to 9. Acceptable <75 mg/dL Borderline High 75-99 mg/dL High 100 mg/dL 2014 National Lipid Association recommen dations for Triglycerides in children ages 10 to 17. Acceptable <90 mg/dL Borderline High 90-129 mg/dL High 130 mg/dL Trigs >400mg/dL: Triglycerides >400 mg/ dL. Calculated LDL cholesterol is not valid. Non-HDL cholesterol may be used for risk assessment when triglycerides are >400mg/dL. HX HDL 143 >=50 MGDL POWERCHART Comment: 2014 National Lipid Association recommen dations for HDL-C in adults ages 18 and up: Low <40 mg/dL (Men) Low <50 mg/dL (Women) 2014 National Lipid Association recommen dations for HDL-C in children ages 2 to 17. Low <40 mg/dL Borderline Low 40-45 mg/dL Acceptable >45 mg/dL Calculated LDL 96 <=129 MGDL POWERCHART Comment: 2014 National Lipid Association recommen dations for LDL-C in adults ages 18 and up: Desirable <100 mg/dL Above desirable 100-129 mg/dL Borderline high 130-159 mg/dL High 160-189 mg/dL Very High 190 mg/dL 2014 National Lipid Association recommen dations for LDL-C in children ages 2 to 17. Acceptable <110 mg/dL Borderline High 110-129mg/dL High 130 mg/dL LDL-C >190mg/dL: The markedly elevated LDL level is suggestive of a genetic condition such as familial hypercholesterolemia(FH) or familial defective apolipoprotein B-100 (FDB). Molecular genetic t esting for FH and FDB is available lynsey [facility]: FH/ADH Genetic Reflex Kolb el (test ADHP). Acquired (non-genetic) causes of markedly increased LDL cholesterol include cholestatic liver disease due to the presence of LpX. If a genetic form of hypercholesterolemia is suspected, family studies including biochemical testing fo r lipids (total cholesterol,triglycerides, LDL cholesterol and HDL cholesterol) are recommended. ??Please contact the laboratory at or the on-line test catalog at [employer] for information about how to order these tomi ts or to speak with a genetic counselor. Further interpretation would require clinical information. Total Cholesterol/HDL Ratio 2 PO WERCHART HXLDL/HDL 1 POWERCHART Specimen (Source) Anatomical Collection Method Collection Time Re ceived Time Location / / Volume Laterality Blood 10/17/2015 10:40 AM 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 Faye Yadav M.D. LAB BLOOD ADD-ON Performing Organization Address City/State/ZIP Code Phon e Number POWERCHART Pathology ELECTRON GUN INSPECTOR Cytology (10/17/2015 12:00 AM 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) Specimen (Source) Anatomical Location Collection Method / Collectio n Time Received Time / Laterality Volume 10/17/2015 Narrative [facility] - 10/27/20 15 9:07 AM 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 Pat: CHIP MAI ([id number]) Age/Sex: 55 ??F ??Loc: ? -00 ([place] ) [facility] ??JULISA: 10/17/15 00:00 ??REC: 00:00 ??PHYS: , Cytology ?[facility] thinlayer cervica Patient Name: CHIP MAI MR#: [id number] Submitting Physician: FAYE YADAV MD ? ?[id number] Specimen #[id number] Performing Lab: ??[place] [address] CLINICAL HISTORY: Last menstrual period: Status: Specimen Source: Cervical/Endo Cervical Pap Type: Routine Pap Clinical History/Status: Post Menopausal Ancillary Testing: Perform HPV High Risk Hormone Therapy: No Pap Specimen: [facility] Last Menstrual Period: menopausal Source: [facility] thinlayer cervical/endocervical specimen [[facility] vial with collection device(s)] Diagnosis Specimen Adequacy: Satisfactory for interpretation : endoce rvical or transformation zone component present. General Categorization: Negative for intraepithelial lesion or m alignancy. Comment HPV with Genotyping, PCR, [facility], test ing performed by [facility] [employer] HPV High Risk type 16, PCR ? NEGATIVE HPV High Risk type 18, PCR ? NEGATIVE HPV other High Risk types, PCR ? NEGATIVE The PAP smear is not a diagnostic proced ure and should not be used as the sole means to detect cervical cancer. ??It is only a screening procedure to aid in the detection of cervical cancer and its pre cursors. ??Both false-negative and false-positive results have been experie nced. Faye Yadav M.D. LAB PAP COPATH ORDERABLES Performing Organization Address City/State/ZIP Code Phon e Number [facility] documented in this encounter Visit Diagnoses Not on filedocumented in this encounter Additional Health Concerns Assessment Noted Time PHQ-9 Depression Total Score: 10 10/17/2015 9:46 AM CS T documented as of this encounter
--- OUTSIDE RECORDS SUMMARY | 2022-08-29 10:32 | XMS_ITS | Encounter Summary ---
:1960 Author Organization [facility] Address [address] [place] [address] Care Team Providers Name Role Phone Unavailable Primary Care Provider Unavailable Encounter Details Date Type Department Care Team Description 12/17/2011 Hospital En[facility] Aurelia Núñez M.D. [address] [place] [address] (Howie dean) Social History Tobacco Use Types Packs/Day Years Used Date Smoking Tobacco: Never Assessed Sex Assigned at Date Recorded Female 07/10/2022 7:32 AM CDT documented as of this encounter Plan of Treatment Upcoming Encounters Date Type Specialty Care Team Description 08/30/2022 Diagnostic Neurology Karin Ramachandran M.D., M.P.H. [address] [phone] (Howie dean) 10/10/2022 Office Visit Neurology Karin Ramachandran M.D., M.P.H. [address] [phone] (Howie rk) documented as of this encounter Visit Diagnoses Not on filedocumented in this encounter
--- OUTSIDE RECORDS SUMMARY | 2022-08-29 10:32 | XMS_ITS | Encounter Summary ---
:1960 Author Organization [facility] Address [address] [place] [address] Care Team Providers Name Role Phone Unavailable Primary Care Provider Unavailable Encounter Details Date Type Department Care Team Description 04/09/2011 Hospital Encounter HX [facility] Aurelia Núñez M.D. [address] [place] [address] (Howie dean) Social History Tobacco Use Types Packs/Day Years Used Date Smoking Tobacco: Never Assessed Sex Assigned at Date Recorded Female 07/10/2022 7:32 AM CDT documented as of this encounter Miscellaneous Notes Telephone Encounter - Conversion, Historical Provider Ser - 04/09/2011 12:00 AM CDT [id number] Was seen by you for pe 07/24/10, last fill 12/04/10 [facility] Document Id: [id number] documented in this encounter Plan of Treatment Upcoming Encounters Date Type Specialty Care Team Description 08/30/2022 Diagnostic Neurology Karin Ramachandran M.D., M.P.H. [address] [place], [place] [phone] (Howie dean) 10/10/2022 Office Visit Neurology Karin Ramachandran M.D., M.P.H. [address] [place], [place] [phone] (Howie dean) documented as of this encounter Visit Diagnoses Not on filedocumented in this encounter
--- OUTSIDE RECORDS SUMMARY | 2022-08-29 10:32 | XMS_ITS | Encounter Summary ---
:1960 Author Organization [facility] Address [address] [place] [address] Care Team Providers Name Role Phone Unavailable Primary Care Provider Unavailable Encounter Details Date Type Department Care Team Description 01/12/2013 Hospital Encounter HX [facility] Aurelia Núñez M.D. [address] [place] [address] (Howie dean) Social History Tobacco Use Types Packs/Day Years Used Date Smoking Tobacco: Never Assessed Sex Assigned at Date Recorded Female 07/10/2022 7:32 AM CDT documented as of this encounter Plan of Treatment Upcoming Encounters Date Type Specialty Care Team Description 08/30/2022 Diagnostic Neurology Karin Ramachandran M.D., M.P.H[facility] [address] [phone] (Howie dean) 10/10/2022 Office Visit Neurology Karin Ramachandran M.D., M.P.H. [address] [phone] (Howie rk) documented as of this encounter Visit Diagnoses Not on filedocumented in this encounter
--- OUTSIDE RECORDS SUMMARY | 2022-08-29 10:32 | XMS_ITS | Encounter Summary ---
:1960 Author Organization [facility] Address [address] [place] [address] Care Team Providers Name Role Phone Unavailable Primary Care Provider Unavailable Encounter Details Date Type Department Care Team Description 02/15/2016 Hospital Encounter HX [facility]-Aurelia Wood M.D. [address] [place] [address] (Wo rk) Social History Tobacco [...] - - Height 160 cm (5' 2.99) 02/15/2016 10:13 AM CDT Body Mass Index - - documented in this encounter Medications at Time of Discharge Medication Sig Dispensed Refills Start Date End Date CALCIUM CARB/VIT Calcium 600+D See 0 02/20/2014 D3/MINERALS Instructions, 1 TABLET (CALCIUM-VITAMIN D ORAL) DAILY documented as of this encounter Miscellaneous Notes Miscellaneous - Conversion, Historical Provider Ser - 02/15/2016 11:59 PM CDT Coding Summary-Paper Based CODING DATE: 02/21/2016 FINAL [facility] STATUS: * Discharged to Home or Self Care PAYOR: [employer] ADMIT DX: REASON FOR VISIT DX: FINAL DX: PRINCIPAL: Z12.31 Encounter for screening mammogram for malignant neoplasm of breast SECONDARY: Z80.3 Family history of malignant neoplasm of breast PROCEDURES DOCTOR NAME DATE NOTE: The code number assigned matches the documented diagnosis and / or procedure in the patient's chart. However, the narrative phrase printed from the coding software may appear abbreviated, or result in slightly different terminology. Coded By: MONICA ROSARIO Date Saved: 02/21/2016 08:22 am Source: [email or web address] Document Id: [id number] documented in this encounter Plan of Treatment Upcoming Encounters Date Type Specialty Care Team Description 08/30/2022 Diagnostic Neurology Karin Ramachandran M.D., M.P.H. [address] [phone] (Howie dean) 10/10/2022 Office Visit Neurology Karin Ramachandran M.D., M.P.H. [address] [phone] (Howie dean) documented as of this encounter Visit Diagnoses Not on filedocumented in this encounter Additional Health Concerns Assessment Noted Time PHQ-9 Depression Total Score: 10 10/17/2015 9:46 AM CS T documented as of this encounter
--- OUTSIDE RECORDS SUMMARY | 2022-08-29 10:32 | XMS_ITS | Encounter Summary ---
:1960 Author Organization [facility] Address [address] [place] [address] Care Team Providers Name Role Phone Unavailable Primary Care Provider Unavailable Encounter Details Date Type Department Care Team Description 11/29/2011 Hospital Encounter HX [facility] Aurelia Fernández M.D. [address] [place] [address] (Wo rk) Social History Tobacco Use Types Packs/Day Years Used Date Smoking Tobacco: Never Assessed Sex Assigned at Date Recorded Female 07/10/2022 7:32 AM CDT documented as of this encounter Miscellaneous Notes Telephone Encounter - Conversion, Historical Provider Ser - 11/29/2011 12:00 AM CST [id number] After talking with the pharmacist about Lunista, pt would like to stick with Ambien. Please fax rx to [facility]. Source: [facility] Document Id: [id number] Telephone Encounter - Conversion, Historical Provider Ser - 11/29/2011 12:00 AM CST [id number] [facility] [place] Last visit: BP Readings from Last 1 Encounters: 11/26/11 120/80 Hypercholesterolemia Labs: AST 27 09/01/2010 ALT 17 09/01/2010 CHOL 214 09/01/2010 TRIG 111 09/01/2010 HDL 96 09/01/2010 LDL 125 11/26/2011 LDL 95 09/01/2010 Your most recent blood tests on record are listed for your review below. No results found for this basename: a1c] (goal less than 7.0% (best if less than 6.5%)) CHOL 214 09/01/2010] (goal less than 200) TRIG 111 09/01/2010] (goal less than 149) HDL 96 09/01/2010] (goal greater than 45 for men and greater than 50 for women) LDL 125 11/26/2011 LDL 95 09/01/2010] (goal less than 100) No results found for this basename: microalbumin] normal 0 - 25 CAD/HTN and/or CHF labs: CR 0.70 11/26/2011 POTASSIUM 5.0 11/26/2011 Source: [facility]Cog[facility] GroupSXRTFContestMachine Document Id: [id number] Telephone Encounter - Faye Liao M.D. - 11/29/2011 12:00 AM CST [id number] rx done. Source: [facility] SYSTEMOpenQXRA[facility] Document Id: [id number] Electronically signed by Conversion, [facility] Space Physicist [id number] at 04/27/2017 2:43 PM CDT Telephone Encounter - Conversion, Historical Provider Ser - 11/29/2011 12:00 AM CST [id number] faxed Source: [facility] GroupSXRA[facility] Document Id: [id number] documented in this encounter Plan of Treatment Upcoming Encounters Date Type Specialty Care Team Description 08/30/2022 Diagnostic Neurology Karin Ramachandran M.D., M.P.H. [address], [place] [phone] (Howie dean) 10/10/2022 Office Visit Neurology Karin Ramachandran M.D., M.P.H. [address], [place] [phone] (Howie dean) documented as of this encounter Visit Diagnoses Not on filedocumented in this encounter
--- OUTSIDE RECORDS SUMMARY | 2022-08-29 10:32 | XMS_ITS | Encounter Summary ---
:1960 Author Organization [facility] Address [address] [place] [address] Care Team Providers Name Role Phone Unavailable Primary Care Provider Unavailable Encounter Details Date Type Department Care Team Description 12/16/2012 Hospital Encounter HX [facility] Aurelia Fernández M.D. [address] [place] [address] (Wo rk) Social History Tobacco Use Types Packs/Day Years Used Date Smoking Tobacco: Never Assessed Sex Assigned at Date Recorded Female 07/10/2022 7:32 AM CDT documented as of this encounter Miscellaneous Notes Telephone Encounter - Conversion, Historical Provider Ser - 12/16/2012 12:00 AM CST [id number] Pt would like refills of her thyroid medication sent to the [facility] in [place]. She would like this done NATHALIE. Source: [facility] Document Id: [id number] Telephone Encounter - Conversion, Historical Provider Ser - 12/16/2012 12:00 AM CST [id number] Pt needs enough medication to last her until her appt on 01/07/13. Source: [facility] Document Id: [id number] Telephone Encounter - Conversion, Historical Provider Ser - 12/16/2012 12:00 AM CST [id number] Pt looking for enough Synthroid until 01/07/13 appt. Pt has not been seen since 12/06/11 (refill pool will not fill without labs being up to date, appt, etc). I have pended a 30 day supply. Please review/advise,thank you! [facility] [place] Last visit: BP Readings from Last 1 Encounters: 11/26/11 120/80 TSH 4.39 11/26/2011 Source: [facility] Document Id: [id number] Telephone Encounter - Faye Liao M.D. - 12/16/2012 12:00 AM CST [id number] Please put in pharmacy Source: [facility]ILOX[facility]XTRANSXRTFSYS Document Id: [id number] Electronically signed by Conversion, [facility] Photographer'S Assistant [id number] at 04/22/2017 11:52 AM CDT documented in this encounter Plan of Treatment Upcoming Encounters Date Type Specialty Care Team Description 08/30/2022 Diagnostic Neurology Karin Ramachandran M.D., M.P.H[facility] [address] [phone] (Howie dean) 10/10/2022 Office Visit Neurology Karin Ramachandran M.D., M.P.H[facility] [address] [phone] (Howie dean) documented as of this encounter Visit Diagnoses Not on filedocumented in this encounter
--- OUTSIDE RECORDS SUMMARY | 2022-08-29 10:33 | XMS_ITS | Encounter Summary ---
:1960 Author Organization [facility] Address [address] [place] [address] Care Team Providers Name Role Phone Unavailable Primary Care Provider Unavailable Encounter Details Date Type Department Care Team Description 03/09/2009 Hospital Encounter HX [facility] Shannon Buitrago M.D. [address] [place] [address] (Wo rk) Social History Tobacco Use Types Packs/Day Years Used Date Smoking Tobacco: Never Assessed Sex Assigned at Date Recorded Female 07/10/2022 7:32 AM CDT documented as of this encounter Miscellaneous Notes Telephone Encounter - Conversion, Historical Provider Ser - 03/09/2009 12:00 AM CDT [id number] Last visit with pcp 10/02, Source[facility] Document Id: [id number] documented in this encounter Plan of Treatment Upcoming Encounters Date Type Specialty Care Team Description 08/30/2022 Diagnostic Neurology Karin Ramachandran M.D., M.P.H. [address], [place] [phone] (Wo rk) 10/10/2022 Office Visit Neurology Karin Ramachandran M.D., M.P.H. [address], [place] [phone] (Wo rk) documented as of this encounter Visit Diagnoses Not on filedocumented in this encounter
--- OUTSIDE RECORDS SUMMARY | 2022-08-29 10:33 | XMS_ITS | Encounter Summary ---
:1960 Author Organization [facility] Address [address] [place] [address] Care Team Providers Name Role Phone Unavailable Primary Care Provider Unavailable Encounter Details Date Type Department Care Team Description 06/22/2008 Hospital Encounter [facility] Melonie Arguello M.D. [employer] [place], [place] [phone] (Wo rk) Social History Tobacco Use Types Packs/Day Years Used Date Smoking Tobacco: Never Assessed Sex Assigned at Date Recorded Female 07/10/2022 7:32 AM CDT documented as of this encounter Miscellaneous Notes Telephone Encounter - Alyssa Evans R.N. - 06/22/2008 12:00 AM CDT [id number] Patient called requesting refill for Ambien. Last Visit: with PCP on 04/27/08 Last 1 Encounter BP Readings: Date BP 04/27/2008 112/82 Will forward request to Dr. Arguello in Dr. Barrett's absence. Source[facility] Document Id: [id number] Electronically signed by Conversion, [facility] Senior C Software Developer [id number] at 04/29/2017 5:34 AM CDT Telephone Encounter - Robbie Arguello M.D. - 06/22/2008 12:00 AM CDT [id number] Approved x [address] Barrett Source: [facility] Document Id: [id number] Electronically signed by Conversion, [facility] Senior C Software Developer [id number] at 04/29/2017 5:34 AM CDT documented in this encounter Plan of Treatment Upcoming Encounters Date Type Specialty Care Team Description 08/30/2022 Diagnostic Neurology Karin Ramachandran M.D., M.P.H. [address] [phone] (Wo rk) 10/10/2022 Office Visit Neurology Karin Ramachandran M.D., M.P.H. [address] [phone] (Wo rk) documented as of this encounter Visit Diagnoses Not on filedocumented in this encounter
--- OUTSIDE RECORDS SUMMARY | 2022-08-29 10:33 | XMS_ITS | Encounter Summary ---
:1960 Author Organization [facility] Address [address] [place] [address] Care Team Providers Name Role Phone Unavailable Primary Care Provider Unavailable Encounter Details Date Type Department Care Team Description 06/28/2009 Hospital Encounter HX [facility] Shannon Buitrago M.D. [address] [place] [address] (Howie dean) Social History Tobacco Use Types Packs/Day Years Used Date Smoking Tobacco: Never Assessed Sex Assigned at Date Recorded Female 07/10/2022 7:32 AM CDT documented as of this encounter Miscellaneous Notes Telephone Encounter - Conversion, Historical Provider Ser - 06/28/2009 12:00 AM CDT [id number] patient made an appt fro 07/12/09 can you please send down refill until then [facility] Document Id: [id number] documented in this encounter Plan of Treatment Upcoming Encounters Date Type Specialty Care Team Description 08/30/2022 Diagnostic Neurology Karin Ramachandran M.D., M.P.H. [address] [place], [place] [phone] (Wo rk) 10/10/2022 Office Visit Neurology Karin Ramachandran M.D., M.P.H. [address] [place], [place] [phone] (Howie dean) documented as of this encounter Visit Diagnoses Not on filedocumented in this encounter
--- OUTSIDE RECORDS SUMMARY | 2022-08-29 10:33 | XMS_ITS | Encounter Summary ---
:1960 Author Organization [facility] Address [address] [place] [address] Care Team Providers Name Role Phone Unavailable Primary Care Provider Unavailable Encounter Details Date Type Department Care Team Description 07/21/2007 Hospital Encounter HX [facility] Shannon Buitrago M.D. [address] [place] [address] (Wo rk) Social History Tobacco Use Types Packs/Day Years Used Date Smoking Tobacco: Never Assessed Sex Assigned at Date Recorded Female 07/10/2022 7:32 AM CDT documented as of this encounter Miscellaneous Notes Telephone Encounter - Conversion, Historical Provider Ser - 07/21/2007 12:00 AM CDT [id number] Last visit with Dr. Hauser for preop 03/05/07 [facility] Source[facility] Document Id: [id number] Telephone Encounter - Conversion, Historical Provider Ser - 07/21/2007 12:00 AM CDT [id number] Unable to approve medication per the RN refill protocol due to: Over due labs Last visit:01/16/07 Last 1 BP Readings: Date: BP: 03/05/2007 112/70 TSH 1.16 11/26/2005 CAD/HTN and or CHF labs: CR 0.85 01/18/2006 POTASSIUM 3.8 01/18/2006 Source: [facility] Document Id: [id number] documented in this encounter Plan of Treatment Upcoming Encounters Date Type Specialty Care Team Description 08/30/2022 Diagnostic Neurology Karin Ramachandran M.D., M.P.H. [address] [phone] (Wo rk) 10/10/2022 Office Visit Neurology Karin Ramachandran M.D., M.P.H. [address] [phone] (Wo rk) documented as of this encounter Visit Diagnoses Not on filedocumented in this encounter
--- OUTSIDE RECORDS SUMMARY | 2022-08-29 10:33 | XMS_ITS | Encounter Summary ---
:1960 Author Organization [facility] Address [address] [place] [address] Care Team Providers Name Role Phone Unavailable Primary Care Provider Unavailable Encounter Details Date Type Department Care Team Description 02/17/2008 Hospital Encounter HX [facility] Shannon Buitrago M.D. [address] [place] [address] (Howie dean) Social History Tobacco Use Types Packs/Day Years Used Date Smoking Tobacco: Never Assessed Sex Assigned at Date Recorded Female 07/10/2022 7:32 AM CDT documented as of this encounter Miscellaneous Notes Telephone Encounter - Conversion, Historical Provider Ser - 02/17/2008 12:00 AM CDT [id number] Last visit with pcp 08/31. Last refill was for 30 on 11/20/07. patient called and would like a refill. Source[facility] Document Id: [id number] documented in this encounter Plan of Treatment Upcoming Encounters Date Type Specialty Care Team Description 08/30/2022 Diagnostic Neurology Karin Ramachandran M.D., M.P.H. [address] [place], [place] [phone] (Howie dean) 10/10/2022 Office Visit Neurology Karin Ramachandran M.D., M.P.H. [address] [place], [place] [phone] (Howie dean) documented as of this encounter Visit Diagnoses Not on filedocumented in this encounter
--- OUTSIDE RECORDS SUMMARY | 2022-08-29 10:33 | XMS_ITS | Encounter Summary ---
:1960 Author Organization [facility] Address [address] [place] [address] Care Team Providers Name Role Phone Unavailable Primary Care Provider Unavailable Encounter Details Date Type Department Care Team Description 10/12/2008 Hospital Encounter HX NO MAPPING Shannon Barrett M.D. [address] [place] [phone] (Wo rk) Social History Tobacco Use Types Packs/Day Years Used Date Smoking Tobacco: Never Assessed Sex Assigned at Date Recorded Female 07/10/2022 7:32 AM CDT documented as of this encounter Plan of Treatment Upcoming Encounters Date Type Specialty Care Team Description 08/30/2022 Diagnostic Neurology Karin Ramachandran M.D., M.P.H[facility] [address] [phone] (Wo rk) 10/10/2022 Office Visit Neurology Karin Ramachandran M.D., M.P.H. [address] [phone] (Wo rk) documented as of this encounter Visit Diagnoses Not on filedocumented in this encounter
--- OUTSIDE RECORDS SUMMARY | 2022-08-29 10:33 | XMS_ITS | Encounter Summary ---
:1960 Author Organization [facility] Address [address] [place] [address] Care Team Providers Name Role Phone Unavailable Primary Care Provider Unavailable Encounter Details Date Type Department Care Team Description 04/15/2007 Hospital Encounter HX [facility] Carrillo Charles M.D. [address] [place], [place] [address] Social History Tobacco Use Types Packs/Day Years Used Date Smoking Tobacco: Never Assessed Sex Assigned at Date Recorded Female 07/10/2022 7:32 AM CDT documented as of this encounter Progress Notes Zandra Coles, R.N. - 04/15/2007 2:00 PM CDT [id number] Addended by: ZANDRA COLES on: 04/15/2007 4:06:49 PM Modules accepted: Orders, SmartSet Source: [facility] Document Id: [id number] Carrillo Persaud M.D. - 04/15/2007 2:00 PM CDT [id number] CLINIC ENCOUNTER SUBJECTIVE: Zandra is about five weeks out from her left shoulder rotator cuff repair and really doing well. She has achieved about 150 degrees of overhead elevation at physical therapy. Her internal and external rotation are around 70 degrees. The incision itself has healed beautifully. PLAN: She is ready to start some active assisted range of motion. I wrote a note that would allow her to work very light duty at the job she has with a 5# limit and nothing higher than shoulder height. I advised against anything heavier than that and certainly advised against recreational activities such as all terrain vehicles, etc. I want to see her back around early May for a 10-12 weeks follow-up visit. Carrillo Persaud M.D. JARVIS/erwin cc: Source: [facility] Document Id: [id number] Electronically signed by Conversion, [facility] Ash Collector [id number] at 04/29/2017 8:34 AM CDT documented in this encounter Miscellaneous Notes Miscellaneous - Carrillo Persaud M.D. - 04/15/2007 2:00 PM CDT [id number] Zandra Lopez [id number] [id number] MR# [id number] April 15, 2007 Dear Zandra Lopez This letter confirms that you are recovering from left shoulder surgery, and should be able to return to light duty 04/16/07 with a 5 lb lifting limit, and nothing higher than shoulder height. If there are questions, please call. Sincerely, Carrillo Persaud M.D. ORTHOPEDIC SURGERY [facility] Source: [facility] Document Id: [id number] Electronically signed by Conversion, [facility] Ash Collector [id number] at 04/29/2017 8:34 AM CDT documented in this encounter Plan of Treatment Upcoming Encounters Date Type Specialty Care Team Description 08/30/2022 Diagnostic Neurology Karin Ramachandran M.D., M.P.H. [address] [place] [phone] (Howie dean) 10/10/2022 Office Visit Neurology Karin Ramachandran M.D., M.P.H. [address] [place] [phone] (Howie dean) documented as of this encounter Visit Diagnoses Not on filedocumented in this encounter
--- OUTSIDE RECORDS SUMMARY | 2022-08-29 10:33 | XMS_ITS | Encounter Summary ---
:[address] [facility] Address [address] [place] [address] Care Team Providers Name Role Phone Unavailable Primary Care Provider Unavailable Encounter Details Date Type Department Care Team Description 09/12/2007 Hospital Encounter HX [facility] Shannon Garcia M.D. [address] [place] [address] (Wo rk) Social History Tobacco Use Types Packs/Day Years Used Date Smoking Tobacco: Never Assessed Sex Assigned at Date Recorded Female 07/10/2022 7:32 AM CDT documented as of this encounter Miscellaneous Notes Telephone Encounter - Shannon Barrett M.D. - 09/12/2007 12:00 AM CDT [id number] Needs to be seen prior to next refill. Source: [facility] Document Id: [id number] Electronically signed by Conversion, [facility] Filter Assembler [id number] at 04/29/2017 2:00 PM CDT Telephone Encounter - Alyssa Evans R.N. - 09/12/2007 12:00 AM CDT [id number] Patient calls requesting refill for Actonel. Source: [facility] Document Id: [id number] Electronically signed by Conversion, [facility] Filter Assembler [id number] at 04/29/2017 2:00 PM CDT Telephone Encounter - Nati Desouza R.N. - 09/12/2007 12:00 AM CDT [id number] Unable to approve medication per the RN refill protocol due to: - overdue labs Last office visit was 01/16/07 per dictation to return in 4 weeks. Last 1 BP Readings: Date: BP: 03/05/2007 112/70 CAD/HTN and or CHF labs: CR 0.85 01/18/2006 POTASSIUM 3.8 01/18/2006 LDL 96 11/16/2002 TSH 1.16 11/26/2005 Source: [facility] Document Id: [id number] Electronically signed by Conversion, [facility] Filter Assembler [id number] at 04/29/2017 2:00 PM CDT documented in this encounter Plan of Treatment Upcoming Encounters Date Type Specialty Care Team Description 08/30/2022 Diagnostic Neurology Karin Ramachandran M.D., M.P.H. [address] [phone] (Wo dianne) 10/10/2022 Office Visit Neurology Karin Ramachandran M.D., M.P.H. [address] [phone] (Wo dianne) documented as of this encounter Visit Diagnoses Not on filedocumented in this encounter
--- OUTSIDE RECORDS SUMMARY | 2022-08-29 10:33 | XMS_ITS | Encounter Summary ---
:1960 Author Organization [facility] Address [address] [place] [address] Care Team Providers Name Role Phone Unavailable Primary Care Provider Unavailable Encounter Details Date Type Department Care Team Description 10/19/2008 Hospital Encounter HX [facility] Shannon Buitrago M.D. [address] [place] [address] (Wo rk) Social History Tobacco Use Types Packs/Day Years Used Date Smoking Tobacco: Never Assessed Sex Assigned at Date Recorded Female 07/10/2022 7:32 AM CDT documented as of this encounter Miscellaneous Notes Telephone Encounter - Conversion, Historical Provider Ser - 10/19/2008 12:00 AM CST [id number] [employer] Source: [facility] Document Id: [id number] Telephone Encounter - Chari Stoddard R.N. - 10/19/2008 12:00 AM CST [id number] Prescription approved per RN refill protocol. Last Visit: 10/12/08 Last 1 Encounter BP Readings: Date BP 10/12/2008 108/70 CAD/HTN and or CHF labs: CR 0.85 10/12/08 POTASSIUM 4.1 10/12/08 LDL 106 09/19/07 TSH 0.48 10/12/08 Source: [facility] Document Id: [id number] Electronically signed by Conversion, [facility] Derrick Operator [id number] at 04/29/2017 2:46 AM CDT documented in this encounter Plan of Treatment Upcoming Encounters Date Type Specialty Care Team Description 08/30/2022 Diagnostic Neurology Karin Ramachandran M.D., M.P.H. [address] [phone] (Wo rk) 10/10/2022 Office Visit Neurology Karin Ramachandran M.D., M.P.H. [address] [phone] (Wo rk) documented as of this encounter Visit Diagnoses Not on filedocumented in this encounter
--- OUTSIDE RECORDS SUMMARY | 2022-08-29 10:33 | XMS_ITS | Encounter Summary ---
:1960 Author Organization [facility] Address [address] [place] [address] Care Team Providers Name Role Phone Unavailable Primary Care Provider Unavailable Encounter Details Date Type Department Care Team Description 04/21/2008 Hospital Encounter HX [facility] T[facility] Shannon Garcia M.D. [address] [place] [address] (Wo rk) Social History Tobacco Use Types Packs/Day Years Used Date Smoking Tobacco: Never Assessed Sex Assigned at Date Recorded Female 07/10/2022 7:32 AM CDT documented as of this encounter Miscellaneous Notes Telephone Encounter - Alyssa Evans R.N. 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 Last Visit: with PCP on 09/19/07, needs to F/U in 6 months, no appointment made Last 1 Encounter BP Readings: Date BP 09/19/2007 112/80 Accepting this Rx will FAX it directly to the pharmacy. Source: [facility] Document Id: [id number] Electronically signed by Conversion, [facility] Carpet Installation Specialist [id number] at 04/29/2017 6:55 AM CDT Telephone Encounter - Shannon Barrett M.D. - 04/21/2008 12:00 AM CDT [id number] Needs to be seen prior to refill. Source: [facility] Document Id: [id number] Electronically signed by Conversion, [facility] Carpet Installation Specialist [id number] at 04/29/2017 6:55 AM CDT Telephone Encounter - Alyssa Evans R.N. - 04/21/2008 12:00 AM CDT [id number] Called patient and appointment arranged to see PCP tomorrow. Source: [facility] Document Id: [id number] Electronically signed by Conversion, [facility] Carpet Installation Specialist [id number] at 04/29/2017 6:55 AM CDT documented in this encounter Plan of Treatment Upcoming Encounters Date Type Specialty Care Team Description 08/30/2022 Diagnostic Neurology Karin Ramachandran M.D., M.P.H[facility] [address] [phone] (Howie dean) 10/10/2022 Office Visit Neurology Karin Ramachandran M.D., M.P.H. [address] [phone] (Howie dean) documented as of this encounter Visit Diagnoses Not on filedocumented in this encounter
--- OUTSIDE RECORDS SUMMARY | 2022-08-29 10:33 | XMS_ITS | Encounter Summary ---
:1960 Author Organization [facility] Address [address] [place] [address] Care Team Providers Name Role Phone Unavailable Primary Care Provider Unavailable Encounter Details Date Type Department Care Team Description 04/26/2009 Hospital Encounter HX [facility] Shannon Buitrago M.D. [address] [place] [phone] (Wo rk) Social History Tobacco Use Types Packs/Day Years Used Date Smoking Tobacco: Never Assessed Sex Assigned at Date Recorded Female 07/10/2022 7:32 AM CDT documented as of this encounter Miscellaneous Notes Miscellaneous - Conversion, Historical Provider Ser - 04/26/2009 12:00 AM CDT [id number] Zandra Lopez [id number] [id number] April 26, 2009 Dear Zandra, Your current medication request for Adalat and Synthroid will be approved for one refill but you will need to be seen before any additional refills can be approved. The reason a visit needed is: Due for re-check appt. With for Hypertension. Please bring all medications (in original containers) to your appointment. Taking care of your health is important to us, and ongoing visits with your provider are vital to your care. We look forward to seeing you in the near future. You may call our office at [phone] at the [facility] to schedule a visit. Please disregard this notice if you have already made an appointment. Sincerely, INTERNAL MEDICINE [facility], [address] [place] [address], [place] [address] Source: [facility]LR[facility] Document Id: [id number] Telephone Encounter - Conversion, Historical Provider Ser - 04/26/2009 12:00 AM CDT [id number] [facility] Source: [facility] Document Id: [id number] Telephone Encounter - Conversion, Historical Provider Ser - 04/26/2009 12:00 AM CDT [id number] Prescription approved for 1 month per RN refill protocol. Letter sent to patient for recheck appt. Last visit:10/12/08 Last 1 Encounter BP Readings: Date BP 10/12/2008 108/70 TSH 0.48 10/12/08 CAD/HTN and/or CHF labs: CR 0.85 10/12/08 POTASSIUM 4.1 10/12/08 Source: [facility] Document Id: [id number] documented in this encounter Plan of Treatment Upcoming Encounters Date Type Specialty Care Team Description 08/30/2022 Diagnostic Neurology Karin Ramachandran M.D., M[facility]P.H[facility] [address] [phone] (Howie dean) 10/10/2022 Office Visit Neurology Karin Ramachandran M.D., M.P.H[facility] [address] [place] [phone] (Howie dean) documented as of this encounter Visit Diagnoses Not on filedocumented in this encounter
--- OUTSIDE RECORDS SUMMARY | 2022-08-29 10:33 | XMS_ITS | Encounter Summary ---
:1960 Author Organization [facility] Address [address] [place] [address] Care Team Providers Name Role Phone Unavailable Primary Care Provider Unavailable Encounter Details Date Type Department Care Team Description 10/11/2008 Hospital Encounter HX NO MAPPING Shannon Barrett M.D. [address] [place] [phone] (Wo rk) Social History Tobacco Use Types Packs/Day Years Used Date Smoking Tobacco: Never Assessed Sex Assigned at Date Recorded Female 07/10/2022 7:32 AM CDT documented as of this encounter Plan of Treatment Upcoming Encounters Date Type Specialty Care Team Description 08/30/2022 Diagnostic Neurology Karin Ramachandran M.D., M[facility] [address] [phone] (Wo rk) 10/10/2022 Office Visit Neurology Karin Ramachandran M.D., M.P.[facility] [address] [phone] (Wo rk) documented as of this encounter Visit Diagnoses Not on filedocumented in this encounter
--- OUTSIDE RECORDS SUMMARY | 2022-08-29 10:33 | XMS_ITS | Encounter Summary ---
:1960 Author Organization [facility] Address [address] [place] [address] Care Team Providers Name Role Phone Unavailable Primary Care Provider Unavailable Encounter Details Date Type Department Care Team Description 10/11/2008 Hospital Encounter HX [facility] Shannon Patton M.D. [address] [place], [place] [phone] (Howie rk) Social History Tobacco Use Types Packs/Day Years Used Date Smoking Tobacco: Never Assessed Sex Assigned at Date Recorded Female 07/10/2022 7:32 AM CDT documented as of this encounter Plan of Treatment Upcoming Encounters Date Type Specialty Care Team Description 08/30/2022 Diagnostic Neurology Karin Ramachandran M.D., [facility] [address] [phone] (Wo rk) 10/10/2022 Office Visit Neurology Karin Ramachandran M.D., M[facility] [address] [phone] (Wo rk) documented as of this encounter Visit Diagnoses Not on filedocumented in this encounter
--- OUTSIDE RECORDS SUMMARY | 2022-08-29 10:33 | XMS_ITS | Encounter Summary ---
:1960 Author Organization [facility] Address [address] [place] [address] Care Team Providers Name Role Phone Unavailable Primary Care Provider Unavailable Encounter Details Date Type Department Care Team Description 03/25/2007 Hospital Encounter HX NO MAPPING Provider, Historical Social History Tobacco Use Types Packs/Day Years Used Date Smoking Tobacco: Never Assessed Sex Assigned at Date Recorded Female 07/10/2022 7:32 AM CDT documented as of this encounter Plan of Treatment Upcoming Encounters Date Type Specialty Care Team Description 08/30/2022 Diagnostic Neurology Karin Ramachandran M.D., M[facility] [address] [phone] (Howie rk) 10/10/2022 Office Visit Neurology Karin Ramachandran M.D., M.P.[facility] [address] [place] [phone] (Wo rk) documented as of this encounter Visit Diagnoses Not on filedocumented in this encounter
--- OUTSIDE RECORDS SUMMARY | 2022-08-29 10:33 | XMS_ITS | Encounter Summary ---
:1960 Author Organization [facility] Address [address] [place] [address] Care Team Providers Name Role Phone Unavailable Primary Care Provider Unavailable Encounter Details Date Type Department Care Team Description 10/12/2008 Hospital Encounter HX [facility] RWZU INTERNMED Shannon Barrett M.D. [address] [place] [address] (Wo rk) Social History Tobacco Use Types Packs/Day Years Used Date Smoking Tobacco: Never Assessed Sex Assigned at Date Recorded Female 07/10/2022 7:32 AM CDT documented as of this encounter Progress Notes Shannon Barrett M.D. - 10/12/2008 11:30 AM CST [id number] SUBJECTIVE: Zandra Lopez is an 48 year old female who presents for evaluation of Hypertension,hypothyroidism and depression. HYPERTENSION: The patient has a history of hypertension of moderate severity of long standing duration. Patients blood pressures have been in the acceptable range. Last labs: POTASSIUM 4.8 04/27/08 CR 0.73 04/27/08 She indicates that She is feeling well and denies any symptoms referable to Her elevated blood pressure. Specifically denies chest pain, palpitations, dyspnea, orthopnea, PND or peripheral edema. Current medication regimen is as listed below. Patient denies any side effects of medication. Cardiovascular risk factors: hypertension and sedentary life style Use of agents associated with hypertension: none History of renal disease: negative History of flank trauma: negative Watching Diet: yes Watching Salt: no Aerobic Activity: no HYPOTHYROIDISM: The patient has a history of hypothyroidism of moderate severity and long standing duration. The patient is presently taking medication and denies symptoms of fatigue, palpitations, heat or cold intolerance, weight gain of loss, or change in bowl habits. Patient denies any modifying factors. Last TSH: TSH 1.87 09/19/07 Depression:Pt has a longstanding histroy of moderate depression well controlled on current meds.Pt denies any recent exacerbations.Current symptoms are negative for depressed mood, hopelessness, diminished interest or pleasure in activities, decreased appetite, excessive sleepiness, fatigue, feelings of worthlessness, feelings of guilt, difficulty with concentration, recurrent thoughts of or suicide, anxiety, irritablility. Current outpatient prescriptions Medication Sig AMBIEN 10 MG OR TABS ONE AT BEDTIME, NEEDED ADALAT CC### 30 MG OR TBCR 1 TABLET DAILY SYNTHROID 75 MCG OR TABS one daily ACTONEL 35 MG OR TABS 1 TABLET [...] for, poor appetite, dysphagia, nausea, vomiting, heartburn, dyspepsia and reflux : negative Musculoskeletal: negative Neurologic: negative Psychiatric: negative Hematologic: negative Endocrine: negative OBJECTIVE: BP 108/70 Pulse 70 Temp (Src) 97.1 ??F (36.2 ??C) (Temporal) Ht 5' 4 (1.626 m) Wt 153 lb (69.4 kg) LMP Postmenopausal Home monitoring: no Repeat BP L arm seated =110/70 with regular size cuff. Pt is well [...] any current suicidal or homicidal ideation. Labs reviewed with patient: TSH and kidney functions ASSESSMENT: ESSENTIAL HYPERTENSION, BENIGN DEPRESSIVE DISORDER, NOT ELSEWHERE CLASSIFIED UNSPECIFIED HYPOTHYROIDISM Plan:HTN 1) Medication: continue current medication regimen [...] and adjust medications. 2) Recheck TSH in 1 year. 3) Continue to observe for signs / symptoms of hypothyroidism. DEPRESSIVE DISORDER NEC [311] Discussed treatment options.Pt would like to continue Observation.Will notify me if there is changes. Source: [facility] Document Id: [id number] Electronically signed by Conversion, [facility] Concrete Tile Machine Operator [id number] at 04/29/2017 2:46 AM CDT documented in this encounter Miscellaneous Notes Miscellaneous - Shannon Barrett M.D. - 10/12/2008 11:30 AM CST [id number] Zandra Lopez [address] [address] October 13, 2008 Dear Ms. Zandra Taylor Jessica: I am writing to inform you of the results of the laboratory tests you had done recently. The resultsof your recent labs are as noted. CBC results are as follows: White Blood Cell Count: WBC 8.4 10/12/08 normal 4.5-11.0 Hemoglobin: HGB 12.8 10/12/08 normal 11-13 Platelets: PLT 374 10/12/08 normal 150-450 Your glucose (blood sugar) value is: GLC 92 10/12/08 Normal is between 60 and 115. Your potassium level: POTASSIUM 4.1 10/12/08 Normal 3.5 - 5.2. Your blood urea nitrogen(BUN) is: BUN 13 10/12/08 Normal 5-24 Your creatinine (kidney test) is as follows: CR 0.85 10/12/08 Normal range is 0.6-1.3 (female) Your thyroid blood test:TSH 0.48 10/12/08 Normal 0.34-4.82 Thank you for allowing me to participate in your care. If you have any further questions or problems, please contact me at [phone] at the [facility]. Sincerely, (electronically signed to expedite delivery) Shannon Barrett M.D. INTERNAL MEDICINE Source: [facility] Document Id: [id number] Electronically signed by Conversion, [facility] Concrete Tile Machine Operator [id number] at 04/29/2017 2:46 AM CDT documented in this encounter Plan of Treatment Upcoming Encounters Date Type Specialty Care Team Description 08/30/2022 Diagnostic Neurology Karin Ramachandran M.D., M.P.H[facility] [address] [place], [place] [phone] (Wo rk) 10/10/2022 Office Visit Neurology Karin Ramachandran M.D., M.P.H[facility] [address] [place], [place] [phone] (Wo rk) documented as of this encounter Visit Diagnoses Not on filedocumented in this encounter
--- OUTSIDE RECORDS SUMMARY | 2022-08-29 10:33 | XMS_ITS | Encounter Summary ---
:1960 Author Organization [facility] Address [address] [place] [address] Care Team Providers Name Role Phone Unavailable Primary Care Provider Unavailable Encounter Details Date Type Department Care Team Description 10/12/[address] [facility] XRAY Provider, Histori darlin Social History Tobacco Use Types Packs/Day Years Used Date Smoking Tobacco: Never Assessed Sex Assigned at Date Recorded Female 07/10/2022 7:32 AM CDT documented as of this encounter Plan of Treatment Upcoming Encounters Date Type Specialty Care Team Description 08/30/2022 Diagnostic Neurology Karin Ramachandran M.D., M.P.H[facility] [address] [phone] (Howie dean) 10/10/2022 Office Visit Neurology Karin Ramachandran M.D., M.P.H[facility] [address] [phone] (Howie dean) documented as of this encounter Visit Diagnoses Not on filedocumented in this encounter
--- OUTSIDE RECORDS SUMMARY | 2022-08-29 10:33 | XMS_ITS | Encounter Summary ---
:1960 Author Organization [facility] Address [address] [place] [address] Care Team Providers Name Role Phone Unavailable Primary Care Provider Unavailable Encounter Details Date Type Department Care Team Description 05/31/2009 Hospital Encounter HX [facility] Shannon Buitrago M.D. 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 Could you refill one time. Source: [facility] RWHXTRANSXRTFSYS Document Id: [id number] documented in this encounter Plan of Treatment Upcoming Encounters Date Type Specialty Care Team Description 08/30/2022 Diagnostic Neurology Karin Ramachandran M.D., M.P.H[facility] [address] [place] [phone] (Wo rk) 10/10/2022 Office Visit Neurology Karin Ramachandran M.D., M.P.H[facility] [address] [place] [phone] (Wo rk) documented as of this encounter Visit Diagnoses Not on filedocumented in this encounter
--- OUTSIDE RECORDS SUMMARY | 2022-08-29 10:33 | XMS_ITS | Encounter Summary ---
:1960 Author Organization [facility] Address [address] [place] [address] Care Team Providers Name Role Phone Unavailable Primary Care Provider Unavailable Encounter Details Date Type Department Care Team Description 09/19/2007 Hospital Encounter HX [facility] TIO INTERNShannon Lewis M.D. [address] [place] [address] (Wo rk) Social History Tobacco Use Types Packs/Day Years Used Date Smoking Tobacco: Never Assessed Sex Assigned at Date Recorded Female 07/10/2022 7:32 AM CDT documented as of this encounter Progress Notes Shannon Vergara M.D. - 09/19/2007 9:30 AM CDT [id number] Addended by: SHANNON VERGARA on: 09/22/2007 9:09:23 AM Modules accepted: Orders Source: [facility] Document Id: [id number] Electronically signed by Gabriela [facility] Steam And Gas Turbine Assembler [id number] at 04/29/2017 2:00 PM CDT Shannon Vergara M.D. - 09/19/2007 9:30 AM CDT [id number] SUBJECTIVE: Patient here for a physical. HYPERTENSION: The patient has a history of hypertension of moderate severity of long standing duration. The patient comes in as a follow up on her hypertension,she offered no complaints. No chest pain,no dyspnea, no dizziness, no lower extremities swelling, no palpitation, no urinary complaint. The patient reported no side effects from the medications. She has been watching her BP and all the readings are normal and acceptable. HYPOTHYROIDISM: The patient has a history of hypothyroidism of moderate severity and long standing duration. The patient is presently taking medication and denies symptoms of fatigue, palpitations, heat or cold intolerance, weight gain of loss, or change in bowl habits. Patient denies any modifying factors. Last TSH: TSH 1.16 11/26/2005 Depression:Pt has a longstanding histroy of moderate depression well controlled on current meds.Pt denies any recent exacerbations.Current symptoms are negative for depressed mood, hopelessness, diminished interest or pleasure in activities, weight gain, decreased appetite, excessive sleepiness, psychomotor agitation, fatigue, feelings of worthlessness, feelings of guilt, difficulty with concentration, recurrent thoughts of or suicide, anxiety, irritablility.Pt has weaned herself off Lexapro and is doing well. INSOMNIA NEC : Insomnia continues to be troublesome for the pt.Initially it was thought to be secondary to depression but now she feels it is there all the time.Shehas difficulty falling and staying asleep 3-4 nights in a week.She has used the Ambien given to her sparingly with good results and would like to have some around.When it happens several nights in a row is when she uses the med and then seems to do well for awhile. ALLERGIES: Allergies Allergen Reactions Latex rash, hives MEDICATIONS: Current outpatient prescriptions Medication Sig AMBIEN 10 MG OR TABS ONE AT BEDTIME, NEEDED ACTONEL 35 MG OR TABS 1 TABLET WEEKLY TAKEN 30 MINUTES BEFORE A MEAL ADALAT CC### 30 MG OR TBCR 1 TABLET DAILY IBUPROFEN 200 MG OR CAPS 2 tabs and limits to 4 daily SYNTHROID 75 MCG OR TABS one daily CALCIUM + D OR 1 TABLET DAILY ASPIRIN 81 MG OR CPEP 1 CAPSULE DAILY MULTI-DAY/CALCIUM/EXTRA IRON OR None Entered SOCIAL HISTORY: History Substance Use Topics Tobacco Use: Yes -- 1.0 packs/day for 20 years 1 pack per day Alcohol Use: Yes social--6 beers/week PAST MEDICAL HISTORY: Past Medical History Diagnosis Date CARPAL TUNNEL SYNDROME HYPERTENSION NOS Essential hypertension HYPOTHYROIDISM NOS Hypothyroidism ABSENCE OF MENSTRUATION 2002 PAST SURGICAL HISTORY: Past Surgical History Procedure Date Skeletal procedure date: fracture L humerus Revise median n/carpal tunnel surg 02/23/03 LT Repair rotator cuff,acute 03/10/07 LT Shldr arthroscop,part debride 03/10/07 LT FAMILY HISTORY: Family History Problem Relation Allergies Mother Allergies Sister Arthritis Sister self Cancer Father skin Cancer Paternal Aunt unknown location Hypertension Sister Hypertension Father Stroke Father age 74 (has had multiple) Breast CA Paternal Aunt and her 2 daughters REVIEW OF SYSTEMS: GENERAL: Denies any fever, chills, fatigue or night sweats. EYES: Denies changes in vision, blurred or double vision. ENT: No chronic nasal congestion, sinus pressure, postnasal drip, hoarseness, recurrent infections or dysphagia. CARDIO-VASCULAR: No chest pain, palpitations, syncope, orthopnea, PND or pedal edema. RESPIRATORY: No VILLAFANA, SOB, cough or wheezing. GI: No mouth sores or dyspepsia. Normal appetite. No change in weight or eating habits. No abdominalpain, nausea or vomiting. Bowels are regular. No change in consistency or color, no melena or hematochezia. : No dysuria, hematuria, frequency or urgency. No stress incontinence. No history of urinary tractinfections or renal stones. MUSCULO-SKELETAL: No joint swelling or aches. No H/O back pain or discomfort. METAL FENCE ERECTOR: No headaches. No dizziness, seizures, tremors, numbness, tingling or excessive weakness. Normalunassisted gait. SKIN: No history of rashes or chronic skin lesions. OBJECTIVE: BP 112/80 Pulse 72 Temp (Src) 97.7 (Temporal) Ht 5' 3 (1.60m) Wt 140 lbs (63.5kg) LMP Postmenopausal Patient is a pleasant 47 year old female of stated age resting comfortably. HEENT: Atraumatic, normocephalic, PERRLA, EOMI without nystagmus. Sclera nonicteric. Conjunctiva noncongested. External auditory canals clear. TM's intact and lustrous. Throat shows no exudate or erythema. Neck: Supple. No thyromegaly, no lymph nodes, no bruits and no venous distention. Respiratory system: Clear to auscultation. CVS: Rate and rhythm regular. No murmur, gallop or rub. 2+ pedal pulses. Breasts: No breast masses or tenderness, No axillary masses or tenderness and No galactorrhea Abdomen: Soft, nontender, nondistended. No hepatosplenomegaly, no masses. Bowel sounds normal. No CVA tenderness. Hernial orifices free. Femoral pulses present. Genitalia: PELVIC EXAM: Speculum reveals normal external female genitalia. Normal hair distribution. Vagina shows pink mucosa, moist with normal rugae. Cervix is without inflammation or abnormal discharge. Pap smear was obtained. Bimanual exam revealsNormal shape, position and consistency Adnexa reveals Normal without masses or tenderness. Rectal Exam: Normal tone. No masses. No tenderness. METAL FENCE ERECTOR: Alert and oriented x3. Cranial nerves intact. No deficit noted. Extremities: No cyanosis, clubbing or edema. Bones and joints show no gross abnormalities. Skin: Appears normal. Psych: Patient appears stated age. Is resting [...] or homicidal ideation. Labs reviewed with patient: CBC, lipid profile, TSH and kidney functions Impression: Normal Physical. BENIGN HYPERTENSION [401.1] HYPOTHYROIDISM NOS [244.9] INSOMNIA NEC [780.52] DEPRESSION. Recommendation: Preventive services: Immunization: Adult TD - Scheduled Flexible sigmoidoscopy/colonoscopy: NA Hemoccults given. Screening Labs: Diabetes - ordered, Cholesterol - last checked CHOL 200 11/16/2002, Thyroid - ordered Mammogram: Scheduled Pap: Up to date Counseling: Smoking - counselled on Alcohol - not indicated recommended Calcium 1500 mg a day Recommended ASA 81 mg po qd Plan:HTN 1) Medication: continue current medication regimen unchanged 2) Dietary sodium restriction 3) Regular aerobic exercise 4) Recheck in 6 months, sooner should new symptoms or problems arise. 5) Recommend BP checks as often as possible and if numbers are higher than 135/85 consistently,come in for recheck. Patient Education: Reviewed risks of hypertension and principles of treatment. PLAN: Hypothyroidism 1) Will check TSH and adjust medications. 2) Recheck TSH in 1 year 3) Continue to observe for signs / symptoms of hypothyroidism. Depression:Continue Observation. Insomnia: Discussed good sleep hygiene and avoidence of stimulation.Ambien prescribed with instructions on how to prevent dependence .Discussed alternates. Source: [facility] Document Id: [id number] Electronically signed by Conversion, [facility] Steam [employer] Turbine Assembler [id number] at 04/29/2017 2:00 PM CDT documented in this encounter Miscellaneous Notes Nancycellpepper - Shannon Vergara M.D. - 09/19/2007 9:30 AM CDT [id number] Zandra Haleyhl [address] [place] [address] September 22, 2007 Dear Zandra Lopez: I am writing to inform you of the results of the laboratory tests you had done recently. The resultsof your recent labs are as noted. CBC results are as follows: White Blood Cell Count: WBC 10.9 09/19/2007 normal 4.5-11.0 Hemoglobin: HGB 13.4 09/19/2007 normal 11-13 Platelets: PLT 423 09/19/2007 normal 150-450 Your glucose (blood sugar) value is: GLC 98 09/19/2007 Normal is between 60 and 115. Your thyroid blood test:TSH 1.87 09/19/2007 Normal 0.34-4.82 The current medical regimen is effective; continue present plan and medications.Refills called in. Your cholesterol tests were: CHOL 205 09/19/2007 normal is less than 200 TRIG 117 09/19/2007 normal is less than 160 HDL 76 09/19/2007 (good chol.) normal is between 40 and 80 LDL 106 09/19/2007 (bad chol.) normal is less than 130 and ideally less than 100 Thank you for allowing me to participate in your care. If you have any further questions or problems, please contact me at [phone] in Internal Medicine. Sincerely, (electronically signed to expedite delivery) Shannon Vergara M.D. INTERNAL MEDICINE Source: [facility] Document Id: [id number] Electronically signed by Conversion, [facility] Steam [employer] Gas Turbine Assembler [id number] at 04/29/2017 2:00 PM CDT Miscellaneous - Shannon Vergara M.D. - 09/19/2007 9:30 AM CDT [id number] Zandra Taylor [facility] [address] [address] November 14, 2007 Dear Zandra, I am happy to inform you that your recent cervical cancer screening test (PAP smear) was normal. Preventative screening such as this helps insure your health for years to come. Congratulations for taking care of yourself! Please contact my office at [phone] if you have any further questions. Sincerely, (electronically signed to expedite delivery) Shannon Fraga M.D. Internal Medicine [facility] Source: [facility] Document Id: [id number] Electronically signed by Gabriela [facility] [employer] Gas Turbine Assembler [id number] at 04/29/2017 2:00 PM CDT documented in this encounter Plan of Treatment Upcoming Encounters Date Type Specialty Care Team Description 08/30/2022 Diagnostic Neurology Karin Ramachandran M.D., M.P.H[facility] [address] [place] [phone] (Howie dean) 10/10/2022 Office Visit Neurology Karin Ramachandran M.D., M.P.H[facility] [address] [place] [phone] (Howie dean) documented as of this encounter Visit Diagnoses Not on filedocumented in this encounter
--- OUTSIDE RECORDS SUMMARY | 2022-08-29 10:33 | XMS_ITS | Encounter Summary ---
:1960 Author Organization [facility] Address [address] [place] [address] Care Team Providers Name Role Phone Unavailable Primary Care Provider Unavailable Encounter Details Date Type Department Care Team Description 11/20/2007 Hospital Encounter HX [facility] Melonie Arguello M.D. [address] [place], [place] [phone] (Wo rk) Social History Tobacco Use Types Packs/Day Years Used Date Smoking Tobacco: Never Assessed Sex Assigned at Date Recorded Female 07/10/2022 7:32 AM CDT documented as of this encounter Miscellaneous Notes Telephone Encounter - Conversion, Historical Provider Ser - 11/20/2007 12:00 AM CST [id number] This is one of Shannon's patients, she was seen by her 09/19/07 for a pe. She had this med filled than for 30 pills. Would like a refill, chould you please address in pcp absence. Thanks Source: [facility] Document Id: [id number] Telephone Encounter - Conversion, Historical Provider Ser - 11/20/2007 12:00 AM CST [id number] patient called [facility] Document Id: [id number] documented in this encounter Plan of Treatment Upcoming Encounters Date Type Specialty Care Team Description 08/30/2022 Diagnostic Neurology Karin Ramachandran M.D., M.P.H[facility] [address], [place] [phone] (Wo rk) 10/10/2022 Office Visit Neurology Karin Ramachandran M.D., M.P.H. [address], [place] [phone] (Wo rk) documented as of this encounter Visit Diagnoses Not on filedocumented in this encounter
--- OUTSIDE RECORDS SUMMARY | 2022-08-29 10:33 | XMS_ITS | Encounter Summary ---
:1960 Author Organization [facility] Address [address] [place] [address] Care Team Providers Name Role Phone Unavailable Primary Care Provider Unavailable Encounter Details Date Type Department Care Team Description 09/25/2007 Hospital Encounter HX [facility] XRAY Provider, Histori darlin Social History Tobacco Use Types Packs/Day Years Used Date Smoking Tobacco: Never Assessed Sex Assigned at Date Recorded Female 07/10/2022 7:32 AM CDT documented as of this encounter Plan of Treatment Upcoming Encounters Date Type Specialty Care Team Description 08/30/2022 Diagnostic Neurology Karin Ramachandran M.D., M[facility]P.[facility] [address] [phone] (Howie dean) 10/10/2022 Office Visit Neurology Karin Ramachandran M.D., M.P.[facility] [address] [phone] (Howie dean) documented as of this encounter Visit Diagnoses Not on filedocumented in this encounter
--- OUTSIDE RECORDS SUMMARY | 2022-08-29 10:33 | XMS_ITS | Encounter Summary ---
:[address] [facility] Address [address] [place] [address] Care Team Providers Name Role Phone Unavailable Primary Care Provider Unavailable Encounter Details Date Type Department Care Team Description 09/25/2007 Hospital Encounter HX NO MAPPING Shannon Barrett M.D. [address] [place] [phone] (Wo rk) Social History Tobacco Use Types Packs/Day Years Used Date Smoking Tobacco: Never Assessed Sex Assigned at Date Recorded Female 07/10/2022 7:32 AM CDT documented as of this encounter Plan of Treatment Upcoming Encounters Date Type Specialty Care Team Description 08/30/2022 Diagnostic Neurology Karin Ramahcandran M.D., M.P.H[facility] [address] [phone] (Wo rk) 10/10/2022 Office Visit Neurology Karin Ramachandran M.D., M.P.[facility] [address] [phone] (Wo rk) documented as of this encounter Visit Diagnoses Not on filedocumented in this encounter
--- OUTSIDE RECORDS SUMMARY | 2022-08-29 10:33 | XMS_ITS | Encounter Summary ---
:1960 Author Organization [facility] Address [address] [place] [address] Care Team Providers Name Role Phone Unavailable Primary Care Provider Unavailable Encounter Details Date Type Department Care Team Description 10/24/2007 Hospital Encounter HX [facility] Shannon Buitrago M.D. [address] [place] [address] (Wo rk) Social History Tobacco Use Types Packs/Day Years Used Date Smoking Tobacco: Never Assessed Sex Assigned at Date Recorded Female 07/10/2022 7:32 AM CDT documented as of this encounter Miscellaneous Notes Telephone Encounter - Conversion, Historical Provider Ser - 10/24/2007 12:00 AM CST [id number] Accepting this Rx will FAX it directly to the pharmacy. Thank You! Source: [facility] Document Id: [id number] Telephone Encounter - Chante Kenyon R.N. - 10/24/2007 12:00 AM GEAR REPAIR SUPERVISOR [id number] Prescription approved per RN refill protocol. Last visit: 09/19/07 Last 1 BP Readings: Date: BP: 09/19/2007 112/80 CAD/HTN and or CHF labs: CR 0.85 01/18/2006 POTASSIUM 3.8 01/18/2006 LDL 106 09/19/2007 TSH 1.87 09/19/2007 Source: [facility] Document Id: [id number] documented in this encounter Plan of Treatment Upcoming Encounters Date Type Specialty Care Team Description 08/30/2022 Diagnostic Neurology Karin Ramachandran M.D., M.P.H. [address] [phone] (Wo rk) 10/10/2022 Office Visit Neurology Karin Ramachandran M.D., M.P.H. [address] [phone] (Wo rk) documented as of this encounter Visit Diagnoses Not on filedocumented in this encounter
--- OUTSIDE RECORDS SUMMARY | 2022-08-29 10:33 | XMS_ITS | Encounter Summary ---
:1960 Author Organization [facility] Address [address] [place] [address] Care Team Providers Name Role Phone Unavailable Primary Care Provider Unavailable Encounter Details Date Type Department Care Team Description 05/08/2007 Hospital Encounter HX NO MAPPING Provider, Historical Social History Tobacco Use Types Packs/Day Years Used Date Smoking Tobacco: Never Assessed Sex Assigned at Date Recorded Female 07/10/2022 7:32 AM CDT documented as of this encounter Plan of Treatment Upcoming Encounters Date Type Specialty Care Team Description 08/30/2022 Diagnostic Neurology Karin Ramachandran M.D., M.P.H. [address] [phone] (Howie rk) 10/10/2022 Office Visit Neurology Karin Ramachandran M.D., M.P.H. [address] [place] [phone] (Wo rk) documented as of this encounter Visit Diagnoses Not on filedocumented in this encounter
--- OUTSIDE RECORDS SUMMARY | 2022-08-29 10:33 | XMS_ITS | Encounter Summary ---
:1960 Author Organization [facility] Address [address] [place] [address] Care Team Providers Name Role Phone Unavailable Primary Care Provider Unavailable Encounter Details Date Type Department Care Team Description 08/12/2008 Hospital Encounter HX [facility] Shannon Buitrago M.D. [address] [place] [phone] (Wo rk) Social History Tobacco Use Types Packs/Day Years Used Date Smoking Tobacco: Never Assessed Sex Assigned at Date Recorded Female 07/10/2022 7:32 AM CDT documented as of this encounter Miscellaneous Notes Miscellaneous - Conversion, Historical Provider Ser - 08/12/2008 12:00 AM CDT [id number] Zandra Lopez [address] [address] August 13, 2008 Dear Zandra Moniquerenitareyna APPOINTMENT REMINDER: Our records indicates that it is time for you to be seen for a recheck. Your current medication request will be approved for one refill but you will need to be seen before any additional refills can be approved. Taking care of your health is important to us, and ongoing visits with your provider are vital to your care. We look forward to seeing you in the near future. You may call our office at [phone] or to schedule a visit. Please disregard this notice if you have already made an appointment. Sincerely, Sera Ramos [facility] Source: [facility] Document Id: [id number] Telephone Encounter - Conversion, Historical Provider Ser - 08/12/2008 12:00 AM CDT [id number] Last visit with pcp 05/02 Source: [facility] Document Id: [id number] Telephone Encounter - Shannon Barrett M.D. - 08/12/2008 12:00 AM CDT [id number] Needs to be seen prior to next refill. Source: [facility] Document Id: [id number] Electronically signed by Conversion, [facility] Child Development Instructor [id number] at 04/28/2017 11:25 PM CDT Telephone Encounter - Conversion, Historical Provider Ser - 08/12/2008 12:00 AM CDT [id number] Letter out Source: [facility] Document Id: [id number] documented in this encounter Plan of Treatment Upcoming Encounters Date Type Specialty Care Team Description 08/30/2022 Diagnostic Neurology Karin Ramachandran M.D., M.P.H. [address] [place] [phone] (Howie dean) 10/10/2022 Office Visit Neurology Karin Ramachandran M.D., M.P.H. [address] [place] [phone] (Howie dean) documented as of this encounter Visit Diagnoses Not on filedocumented in this encounter
--- OUTSIDE RECORDS SUMMARY | 2022-08-29 10:33 | XMS_ITS | Encounter Summary ---
:1960 Author Organization [facility] Address [address] [place] [address] Care Team Providers Name Role Phone Unavailable Primary Care Provider Unavailable Encounter Details Date Type Department Care Team Description 04/27/2008 Hospital Encounter HX [facility] [id number] INTERNMED Shannon Barrett M.D. [address] [place] [address] (Wo rk) Social History Tobacco Use Types Packs/Day Years Used Date Smoking Tobacco: Never Assessed Sex Assigned at Date Recorded Female 07/10/2022 7:32 AM CDT documented as of this encounter Progress Notes Shannon Barrett M.D. 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 SUBJECTIVE: Zandra Lopez is an 47 year old female who presents for evaluation of Hypertension,hypothyroidism and menopausal sympptoms. HYPERTENSION: The patient has a history of hypertension of moderate severity of long standing duration. Patients blood pressures have been in the acceptable range. Last labs: POTASSIUM 3.8 01/18/06 CR 0.85 01/18/06 She indicates that She is feeling well and denies any symptoms referable to Her elevated blood pressure. Specifically denies chest pain, palpitations, dyspnea, orthopnea, PND or peripheral edema. Current medication regimen is as listed below. Patient denies any side effects of medication. HYPOTHYROIDISM: The patient has a history of hypothyroidism of moderate severity and long standing duration. The patient is presently taking medication and denies symptoms of fatigue, palpitations, heat or cold intolerance, weight gain of loss, or change in bowl habits. Patient denies any modifying factors. Last TSH: TSH 1.87 09/19/07 The patient states she is still having a lot of trouble sleeping. She says even with the Ambien she is able to sleep only for about 4 hours. She still has night sweats and hot flashes. She says she notes that she feels very fatigued when she doesnt sleep well so every few days or so she takes a pill to help with her sleep at least get some sleep a few hours. She is not sure what to do about it and she wonders if she can stay on the Ambien fpc or if there is a better alternative because even with the Ambien she doesnt sleep for prolonged periods. The patient says she does not feel depressed ordown. Her mood is good. She does have some thought rumination but she attributes that to lack of sleep or being unable to sleep not the other way around. PCN/SS/jir Current outpatient prescriptions Medication Sig PAXIL 20 MG OR TABS ONE DAILY AMBIEN 10 MG OR TABS ONE [...] negative Hematologic: negative Endocrine: negative OBJECTIVE: BP 112/82 Pulse 82 Temp (Src) 97.8 ??F (36.6 ??C) (Temporal) Wt 152 lb (68.947 kg) LMP Postmenopausal Home monitoring: no Repeat BP L arm seated = 122/84 with regular size cuff. Pt is well [...] clicks gallops or rub Pedal edema: no Labs reviewed with patient: lipid profile, TSH and kidney functions ASSESSMENT: ESSENTIAL HYPERTENSION, BENIGN SYMPTOMATIC MENOPAUSAL OR FEMALE CLIMACTERIC STATES UNSPECIFIED HYPOTHYROIDISM INSOMNIA, UNSPECIFIED SEXUAL DYSFUNCTION IN FEMALES Plan:HTN 1) Medication: continue current medication regimen unchanged 2) Dietary sodium restriction 3) Regular aerobic exercise 4) Recheck in 3 months, sooner should new symptoms or problems arise. 5) Recommend BP checks as often as possible.If BP readings are consistently higher than 135/85,then return to clinic for adjustment of your meds. Patient Education: Reviewed risks of hypertension and principles of Treatment. PLAN: Hypothyroidism 1) The current medical regimen is effective; continue present plan and medications.. 2) Recheck TSH in 6 months. 3) Continue to observe for signs / symptoms of hypothyroidism. Symptomatic Menopausal or Female Climacteric States [627.2] We discussed risks, benefits, and alternatives to HRT in light of the WHI study including the increased risks of DVT, PE, KS, and stroke. We discussed the probable increased risk of breast cancer, especially after 5 years of use. The possible side effects including breast tenderness, spotting, and melasma were covered. Benefits of HRT were also discussed including prevention and /or treatment of osteoporosis, favorable effects on vaginal and bladder mucosa, improvement of menopausal symptoms, and decreased risk of colon caner. RECOMMENDATIONS: I discussed with the patient about the hormone and the fact that she continues to smoke. I told her if she would quit smoking a hormone would be a good choice because it would help with both the symptomatic menopause. The patient says she will try to work on this. She has tried Chantix in the past andhas failed though her has quit. She notes she is under pressure to quit but is having a tough time quitting. She has also had some added stress where she lost her job. One other thing she notesis lack of libido and shes wondering if going on hormones will help it. I did tell her that it mighthelp but there are no guarantees. I told her I would refer her to Dr. Joaquin but I am hesitant abo ut recommending higher doses of hormones with her continuing to smoke so I recommended she work on quitting smoking and then if she quits smoking we will refer her to Dr. Joaquin. I also told her in the meantime we can try something like Paxil, an SSRI, which will help with both menopausal symptoms and sleep. The patient is agreeable and will try this. I told her it would take about 3 weeks before the Paxil kicked in so she needs to give it some time to see how it will help her. It could help her with sleep, menopausal symptoms and this might in turn improve things in general for her. The patientis agreeable and will give this a try and we would reassess in three months time. PCN/SS/jir HPI ROS Physical Exam [facility] Document Id: [id number] Electronically signed by Conversion, [facility] Carpet Cutter [id number] at 04/29/2017 4:57 AM CDT documented in this encounter Miscellaneous Notes Miscellaneous - Shannon Barrett M.D. - 04/27/2008 4:30 PM CDT [id number] Zandra Lopez [id number] [address] June 07, 2008 Dear Ms. Zandra Lopez: I am writing to inform you of the results of the laboratory tests you had done recently. The results of your recent labs are as noted. Your creatinine (kidney test) is as follows: CR 0.73 04/27/08 normal range is 0.52 -1.04 (female) normal range is 0.66 -1.25 (male) Your blood urea nitrogen(BUN) is: BUN 13 04/27/08 Normal 5-24 Your potassium level: POTASSIUM 4.8 04/27/08 Normal 3.4 - 5.3.. Thank you for allowing me to participate in your care. If you have any further questions or problems, please contact me at [phone] in Internal Medicine. Sincerely, (electronically signed to expedite delivery) Shannon Barrett M.D. INTERNAL MEDICINE Source: [facility] Document Id: [id number] Electronically signed by Conversion, [facility] Carpet Cutter [id number] at 04/29/2017 4:57 AM CDT documented in this encounter Plan of Treatment Upcoming Encounters Date Type Specialty Care Team Description 08/30/2022 Diagnostic Neurology Karin Ramachandran M.D., M.P.H. [address] [phone] (Howie dean) 10/10/2022 Office Visit Neurology Karin Ramachandran M.D., M.P.H. [address] [place], [place] [phone] (Howie dean) documented as of this encounter Visit Diagnoses Not on filedocumented in this encounter
--- OUTSIDE RECORDS SUMMARY | 2022-08-29 10:33 | XMS_ITS | Encounter Summary ---
:1960 Author Organization [facility] Address [address] [place] [address] Care Team Providers Name Role Phone Unavailable Primary Care Provider Unavailable Encounter Details Date Type Department Care Team Description 01/09/2008 Hospital Encounter HX [facility] Shannon Tan M.D. [address] [place] [address] (Wo rk) Social History Tobacco Use Types Packs/Day Years Used Date Smoking Tobacco: Never Assessed Sex Assigned at Date Recorded Female 07/10/2022 7:32 AM CDT documented as of this encounter Miscellaneous Notes Telephone Encounter - Conversion, Historical Provider Ser - 01/09/2008 12:00 AM CST [id number] Accepting this Rx will FAX it directly to the pharmacy. Thank You! [facility] Document Id: [id number] Telephone Encounter - Conversion, Historical Provider Ser - 01/09/2008 12:00 AM CST [id number] Called pharmacy as pt received 10 refills in August. Pharmacy verified she does have refills. Source: [facility] Document Id: [id number] documented in this encounter Plan of Treatment Upcoming Encounters Date Type Specialty Care Team Description 08/30/2022 Diagnostic Neurology Karin Ramachandran M.D., M.P.H. [address] [place], [place] [phone] (Wo rk) 10/10/2022 Office Visit Neurology Karin Ramachandran M.D., M.P.H. [address] [phone] (Wo rk) documented as of this encounter Visit Diagnoses Not on filedocumented in this encounter
--- OUTSIDE RECORDS SUMMARY | 2022-08-29 10:34 | XMS_ITS | Encounter Summary ---
:1960 Author Organization [facility] Address [address] [place] [address] Care Team Providers Name Role Phone Unavailable Primary Care Provider Unavailable Encounter Details Date Type Department Care Team Description 03/11/[address] [facility] [facility] Provider, Histor ical Social History Tobacco Use Types Packs/Day Years Used Date Smoking Tobacco: Never Assessed Sex Assigned at Date Recorded Female 07/10/2022 7:32 AM CDT documented as of this encounter Miscellaneous Notes Telephone Encounter - Conversion, Historical Provider Ser - 03/11/2007 12:00 AM CDT [id number] TELEPHONE TRIAGE ENCOUNTER FORM Date: 03/11/2007 PCP: Shannon Barrett MD Patient Name: Zandra Lopez Gender: female : 1960 Age: [age] year old Time: 11:28 AM Phone Numbers: [phone] (home) Pharmacy: [facility] Presenting Problem: Left shoulder post operative pain difficult to manage. Has pain pump in place, no leaking noted. Taking Percocet Q4H 1 tab also taking Ultram Q4-6 hr. Using ice machine constantly. Subjective/objective: Rotator cuff repaired yesterday Onset: post op Duration: 12 hours Associated Sx: No fever noted. Problem list reviewed: YES Recent History: Yes - surgery 03/10/07 Dr Persaud. Recent Illness: No Allergies verified: YES Precipitated by: Yes - What is it? surgery Med list reviewed: YES Alleviated by: N/A Immunosuppressed:NO Conclusion / Primary Problem: Left shoulder post op pain Protocol(s) Consulted: Telephone Triage Protocols for Nurses. Nicholas 2002 - post operative problem PLAN / INTERVENTION Disposition: Home Care advice per protocol-spoke to daughter. Has post op appointment in 1 week Caller verbalizes understanding of disposition? YES Caller agrees to plan? Yes EVALUATION / FOLLOW-UP [facility] Document Id: [id number] documented in this encounter Plan of Treatment Upcoming Encounters Date Type Specialty Care Team Description 08/30/2022 Diagnostic Neurology Karin Ramachandran M.D., M.P.H. [address] [phone] (Wo rk) 10/10/2022 Office Visit Neurology Karin Ramachandran M.D., M.P.H. [address] [phone] (Wo rk) documented as of this encounter Visit Diagnoses Not on filedocumented in this encounter
--- OUTSIDE RECORDS SUMMARY | 2022-08-29 10:34 | XMS_ITS | Encounter Summary ---
:1960 Author Organization [facility] Address [address] [place] [address] Care Team Providers Name Role Phone Unavailable Primary Care Provider Unavailable Encounter Details Date Type Department Care Team Description 02/04/2004 Hospital Encounter HX [facility] Shannon Buitrago M.D. [address] [place] [address] (Wo rk) Social History Tobacco Use Types Packs/Day Years Used Date Smoking Tobacco: Never Assessed Sex Assigned at Date Recorded Female 07/10/2022 7:32 AM CDT documented as of this encounter Progress Notes Conversion, Historical Provider Ser - 02/04/2004 1:30 PM CST [id number] Addended by: KELLY BUTLER on: 02/08/2004,6:55 AMModules accepted: Progress NotesAddended by: PATRICA PENA on: 02/04/2004,5:07 PMModules accepted: Order Summary, Progress NotesSUBJECTIVE:Zandra Lopez is an 43 year old female who presents for evaluation of hypothyroidism ,anxiety and depr ession andhypertension. She indicates that She is feeling well and denies any symptoms referabl e to Her elevated blood pressure. Specifically denies chest pain, palpitations, dyspnea, orthopnea, PND or peripheral edema. Current medication regimen is as listed below. Patient denies any side eff ects of medication.Cardiovascular risk factors: hypertension and sedentary life styleUse of agent s associated with hypertension: noneHistory of renal disease: negativeHistory of flank trauma: nega tiveWatching Diet: yesWatching Salt: yesAerobic Activity: no*The patient says that she has been o ff her antidepressants for a month because she ran out of refills. However, she says that for the st part she is doing well. She has had some tearful episodes, but it is not too bad. One thing that she has noticed is that she can't sleep through the night. She can't sleep for more than two hours at a time. She does not sleep during the day. Her appetite has increased. She is back to easily br eaking down and crying. Her mood is somewhat down at times, but other times it seems fairly good. S he is able to keep up with her ADLs, complete tasks, and concentrate. She wonders if she would like to go back on it, at some point. She is not sure currently. The patient also says that she has de cided now to quit smoking. Both she and her are working on it, so she is wondering if I can prescribed Zyban for her to help her quit smoking.*Current prescriptions:ADALAT CC 30 MG OR TBCR 1 TABLET DAILYZYBAN 150 MG OR TB12 1 TABLET TWICE DAILY x 3 days,then 1 po qdSYNTHROID 50 MCG OR TAB S one dailyVICODIN 5-500 MG OR TABS 1 TABLET EVERY 4 TO 6 HOURS NEEDEDReview of the patient's allergies finds: Latex rash, hives Tobacco Use : Yes Packs/Day: 1 Years: 20 Comment: 1 pack per day Alcohol Use: Yes Comment: socialReview of patient's past medical history indicates: CARPAL TUNNEL SYNDROME HYPERTENSION NOS C omment: Essential hypertension HYPOTHYROIDISM NOS Comme nt: HypothyroidismReview of patient's family history indicates: Allergies Mot her Allergies Sister Arthritis Sister Comment: self Cancer Father Comment: skin Cancer Paternal Aunt Heart Sister Hypertension Sister Hypertensi on Father Stroke Father Review Of SystemsSkin: negativeEyes: negativeEars/Nose/Throat: negativeRespiratory: p ositive for wheezing at night.So she has decided to quit smoking and is asking for a prescription of ZybanCardiovascular: negativeGastrointestinal: negativeGenitourinary: negativeMusculoskeletal: ne gativeNeurologic: negativePsychiatric: negativeHematologic/Lymphatic/Immunologic: negativeEndocri ne: Positive for some weight gain and wonders if it her thyroid.Denies ny other associsted symptom of hypothyroidismOBJECTIVE:BP 120/80 Pulse 76 Temp (Src) 98.3 (Tympanic) Wt 167 lbs (75.8kg) LMP InjectionHome monitoring: noRepeat BP R arm seated = 114/76 with large size cuff.Neck: Supple ,no palpable lymph nodes, no JVD, no carotid bruits.Thyroid: normal to inspection and palpationLung s: negative,Percussion normal. Good diaphragmatic excursion. Lungs clearHeart: negative,PMI normal. No lifts, heaves, or thrills. RRR. No murmurs, clicks gallops or rubPedal edema: noPsych: Patient appears stated age. Is resting comfortably. Is dressed neatly and appropriately. Is able to maint ain good eye contact throughout the interview. The patient is cooperative and pleasant and forthcomin g with the information. The patient is alert, oriented, fully. Appears to be a reliable historian. Mood is appropriate. Affect is broad. Speech is of normal quality. Coherent, logical and distinct . No evidence of thought abnormalities. Thought processes are logical, clear and goal oriented. No evidence of auditory hallucinations or delusion. Judgement intact. Font of knowledge intact. Abst ract reasoning within normal limits. Denies any current suicidal or homicidal ideation.ASSESSMENT: HYPOTHYROIDISM NOSBENIGN HYPERTENSIONTOBACCO USE DISORDERDEPRESSIVE DISORDER NECGENERALIZED AN XIETY DISPlan:HTN1) Medication: continue current medication regimen unchanged2) Dietary sodium restriction3) Regular aerobic exercise4) Recheck in 6 months, sooner should new symptoms or prob lems arise.5) Recommend BP checks as often as possible.If BP readings are consistently higher than 135/85,then return to clinic for adjustment of your meds.Patient Education: Reviewed risks of hyper tension and principles of treatment.PLAN: Hypothyroidism1) Will check TSH and adjust medication s.2) Recheck TSH in 1year.3) Continue to observe for signs / symptoms of hypothyroidism.*1. For her tobacco use disorder, I did prescribed Zyban for her and went over the instructions on how to deandre e it and also spent about 15 minutes counseling this patient on how to quit smoking. The instruction s on how to work at it and stay quit has been given to the patient as well. 2. For anxiety and dep ression, I discussed with her that Wellbutrin will help with the anxiety and depression as well, so s he can try that as long as she is going to use that for quitting smoking and in two months we will me et to reassess on how she compares to the Wellbutrin to Paxil. Depending upon which she thinks helps with the depression, we can restart her or continue her. I told her that I didn't think there was n o point on being on both Paxil and Wellbutrin at this time and so I recommended to continue with Well butrin. Total time with the patient was 25 minutes. Of that more than half was spent on counselin g and discussing treatment for depression.* Shannon Barrett M.D./garcia*D: 4T: 02/08/2004 [facility]: [facility] Document Id: [id number] documented in this encounter Plan of Treatment Upcoming Encounters Date Type Specialty Care Team Description 08/30/2022 Diagnostic Neurology Karin Ramachandran M.D., M.P.H[facility] [address] [phone] (Howie dean) 10/10/2022 Office Visit Neurology Karin Ramachandran M.D., M.P.H. [address] [phone] (Howie dean) documented as of this encounter Visit Diagnoses Not on filedocumented in this encounter
--- OUTSIDE RECORDS SUMMARY | 2022-08-29 10:34 | XMS_ITS | Encounter Summary ---
:1960 Author Organization [facility] Address [address] [place] [address] Care Team Providers Name Role Phone Unavailable Primary Care Provider Unavailable Encounter Details Date Type Department Care Team Description 03/27/2006 Hospital Encounter HX [facility] Shannon Buitrago M.D. [address] [facility] [place] [address] (Howie dean) Social History Tobacco Use Types Packs/Day Years Used Date Smoking Tobacco: Never Assessed Sex Assigned at Date Recorded Female 07/10/2022 7:32 AM CDT documented as of this encounter Miscellaneous Notes Telephone Encounter - Conversion, Historical Provider Ser - 03/27/2006 12:00 AM CDT [id number] patient called wondering about getting her period. Hasn't had one for over two years and labs state shes in menopause. Got period. Was wondering if this was normal. Gave her the number for [employer] andasked her to call and talk to damage prevention coordinator. Source: [facility] Document Id: [id number] documented in this encounter Plan of Treatment Upcoming Encounters Date Type Specialty Care Team Description 08/30/2022 Diagnostic Neurology Karin Ramachandran M.D., M.P.H. [address], [place] [phone] (Wo rk) 10/10/2022 Office Visit Neurology Karin Ramachandran M.D., M.P.H. [address] [place], [place] [phone] (Wo rk) documented as of this encounter Visit Diagnoses Not on filedocumented in this encounter
--- OUTSIDE RECORDS SUMMARY | 2022-08-29 10:34 | XMS_ITS | Encounter Summary ---
:[address] [facility] Address [address] [place] [address] Care Team Providers Name Role Phone Unavailable Primary Care Provider Unavailable Encounter Details Date Type Department Care Team Description 01/25/2006 Hospital Encounter HX [facility] XRAY Provider, Histori darlin Social History Tobacco Use Types Packs/Day Years Used Date Smoking Tobacco: Never Assessed Sex Assigned at Date Recorded Female 07/10/2022 7:32 AM CDT documented as of this encounter Miscellaneous Notes Miscellaneous - Shannon Barrett M.D. - 01/25/2006 9:45 AM CST [id number] Zandra Lopez [id number] [phone] February 04, 2006 Dear Zandra Taylor Jessica, IMAGING RESULTS: The results of your recent bone density/DEXA Scan were ABNORMAL -indicating thinning of the bones.I recommend that you consider Medications to prevent further loss of bone. If you have any further questions or problems, please contact our office. Sincerely, Shannon Barrett M.D. INTERNAL MEDICINE Source: [facility] Document Id: [id number] Electronically signed by Conversion, [facility] Internet Marketing Consultant [id number] at 04/29/2017 6:39 PM CDT documented in this encounter Plan of Treatment Upcoming Encounters Date Type Specialty Care Team Description 08/30/2022 Diagnostic Neurology Karin Ramachandran M.D., M.P.H. [address] [phone] (Wo rk) 10/10/2022 Office Visit Neurology Karin Ramachandran M.D., M.P.H. [address], [place] [phone] (Wo rk) documented as of this encounter Visit Diagnoses Not on filedocumented in this encounter
--- OUTSIDE RECORDS SUMMARY | 2022-08-29 10:34 | XMS_ITS | Encounter Summary ---
:1960 Author Organization [facility] Address [address] [place] [address] Care Team Providers Name Role Phone Unavailable Primary Care Provider Unavailable Encounter Details Date Type Department Care Team Description 03/20/2007 Hospital Encounter HX [facility] ORTHO Lopez Coles ra REvansNEvans [address] [place], [place] [phone] Social History Tobacco Use Types Packs/Day Years Used Date Smoking Tobacco: Never Assessed Sex Assigned at Date Recorded Female 07/10/2022 7:32 AM CDT documented as of this encounter Miscellaneous Notes Telephone Encounter - Zandra Coles R.N. - 03/20/2007 12:00 AM CDT [id number] Refill for percocet. Needs signed copy. Source[facility] Document Id: [id number] Electronically signed by Conversion, [facility] Running Specialist [id number] at 04/29/2017 10:22 AM CDT Telephone Encounter - Carrillo Persaud M.D. - 03/20/2007 12:00 AM CDT [id number] Done RR Source: [facility] Document Id: [id number] Electronically signed by Conversion, [facility] Running Specialist [id number] at 04/29/2017 10:22 AM CDT documented in this encounter Plan of Treatment Upcoming Encounters Date Type Specialty Care Team Description 08/30/2022 Diagnostic Neurology Karin Ramachandran M.D., M.P.H. [address] [place], [place] [phone] (Wo rk) 10/10/2022 Office Visit Neurology Karin Ramachandran M.D., M.P.H. [address] [phone] (Wo rk) documented as of this encounter Visit Diagnoses Not on filedocumented in this encounter
--- OUTSIDE RECORDS SUMMARY | 2022-08-29 10:34 | XMS_ITS | Encounter Summary ---
:1960 Author Organization [facility] Address [address] [place] [address] Care Team Providers Name Role Phone Unavailable Primary Care Provider Unavailable Encounter Details Date Type Department Care Team Description 11/07/2004 Hospital Encounter HX [facility] Shannon Buitrago M.D. [address] [place] [address] (Wo rk) Social History Tobacco Use Types Packs/Day Years Used Date Smoking Tobacco: Never Assessed Sex Assigned at Date Recorded Female 07/10/2022 7:32 AM CDT documented as of this encounter Progress Notes Conversion, Historical Provider Ser - 11/07/2004 1:30 PM CST [id number] Addended by: EMILE FOWLER on: 11/10/2004,11:36 AM Comment: transcriptionModules accepted: Progress NotesSUBJECTIVE:Zandra Lopez is an 44 year old female who presents for evaluation of Depression,hypothyroidism andhypertension. She indicates that She is feeling well and loni es any symptoms referable to Her elevated blood pressure. Specifically denies chest pain, palpitatio ns, dyspnea, orthopnea, PND or peripheral edema. Current medication regimen is as listed below. Pat ient denies any side effects of medication.Cardiovascular risk factors: smoking, hypertension and sedentary life styleUse of agents associated with hypertension: noneHistory of renal disease: negat iveHistory of flank trauma: negativeWatching Diet: noWatching Salt: yesAerobic Activity: noThe patient states she is doing fairly well regarding her depression. She states she has some good days and some bad days. She is not sleeping very well but she says she is able to manage. She is unable to complete tasks. Her appetite is normal. Her brother's anniversary is coming up and that g ets her down some but otherwise she is much better. She gets tearful at times but again none of them are overwhelming or depressive enough that keeps her from doing what she needs to do. She is able t o do her job and most of her activities of daily living without any problems. She feels she does not want to stay on any medications unless she really has to and so she currently does not want to re-st art her anti-depressants. The patient wonders if she is in menopause. She says she has not had a period for 9-10 months. She went through a period where she had a lot of night sweats and hot flashe s but they are starting to wean off. It is not as bad as before but she noticed her libido is almost zero. She says she is really frustrated with this and is wondering if there is any medication she c an take to improve her libido. She also wants to know if she is in menopause so she can stop using p rotection.Current prescriptions:SYNTHROID 88 MCG OR TABS one dailyADALAT CC 30 MG OR TBCR 1 TABLE T DAILYVICODIN 5-500 MG OR TABS 1 TABLET EVERY 4 TO 6 HOURS NEEDEDReview of the patient's nika rgies finds: Latex rash, hives Tobacco Use: Ye s Packs/Day: 1 Years: 20 Comment: 1 pack per day Alcohol Use: Yes Comment: socialReview of patient's past medical history indicates: CARPAL TUNNEL SYNDROME HYPERTENSION NOS Comme nt: Essential hypertension HYPOTHYROIDISM NOS Comment: HypothyroidismReview of patient's family history indicates: Allergies Mother Allergies Sister Arthritis Sister Comment: self Cancer Father Comment: skin Cancer Paternal Aunt Heart Sister Hypertension Sister Hypertension Father Stroke Father Review Of SystemsSkin: negative for, pigmentation, rash, itching, bruisingEyes: negativeEa rs/Nose/Throat: negativeRespiratory: negative for, cough, sputum, dyspnea, dyspnea on exertion and w heezingCardiovascular: negative for, palpitations, tachycardia, irregular heart beat, chest pain, ex ertional chest pain or pressure, paroxysmal nocturnal dyspnea, dyspnea on exertion, orthopnea and low er extremity edemaGastrointestinal: negative for, poor appetite, dysphagia, nausea, vomiting, heartb urn/dyspepsia, reflux and abdominal painGenitourinary: negativeMusculoskeletal: negativeNeurologic : negativePsychiatric: negativeHematologic/Lymphatic/Immunologic: negativeEndocrine: negativeOBJ ECTIVE:BP 132/84 Pulse 60 Wt 156 lbs (70.8kg) LMP InjectionHome monitoring: noRepeat BP R ar m seated = 134/78 with large size cuff.Neck: Supple,no palpable lymph nodes, no JVD, no carotid bru its.Thyroid: normal to inspection and palpationLungs: negative,Percussion normal. Good diaphragmati c excursion. Lungs clearHeart: negative,PMI normal. No lifts, heaves, or thrills. RRR. No murmurs, c licks gallops or rubPedal edema: yesPsych: Patient appears stated age. Is resting comfortably. [...] and distinct. No evidence of thought abnormalities. Thoug ht processes are logical, clear and goal oriented. No evidence of auditory hallucinations or delusio n. Judgement intact. Font of knowledge intact. Abstract reasoning within normal limits. Denies an y current suicidal or homicidal ideation.Labs reviewed with patient: TSH and kidney functionsAS SESSMENT:HYPOTHYROIDISM NOSTOBACCO USE DISORDERBENIGN HYPERTENSIONDEPRESSIVE DISORDER NECSYMPTOM ATIC FEMALE CLIMACTERIC STATEPlan:HTN1) Medication: continue current medication regimen unchange d2) Dietary sodium restriction3) Regular aerobic exercise4) Recheck in 6 months, sooner should new symptoms or problems arise.5) Recommend BP checks as often as possible. If BP readings are co nsistently higher than 135/85,then return to clinic for adjustment of your meds.Patient Education: Reviewed risks of hypertension and principles of treatment.RECOMMENDATIONS:1. For depressive dis order and symptomatic climacteric state, I told her some of the mood swings she is experiencing could be exacerbating her underlying depression. We could consider medications or she could try waiting i t out and seeing if symptoms become bad, then we might have to put her on medication. The patient is agreeable, wants to just wait and see. I told her we will go ahead and get a FSH and once those res ults are available I will notify her but in the meantime I recommend she continue to use protection. 2. Hypothyroidism. Will recheck her TSH and make sure her Synthroid dose is fine. If there are any changes, then I will notify her. The patient is recommended to continue to watch for signs of hypot hyroidism.3. We discussed about quitting smoking. The patient states she enjoys it. She spends a lot of time alone and she says she is unable to quit it and so currently she does not want to quit an d she is not considering or seriously paying attention to quitting. I recommended she continue to th ink about it and should consider quitting in the near future. Patient expresses understanding. Source: [facility] Document Id: [id number] documented in this encounter Plan of Treatment Upcoming Encounters Date Type Specialty Care Team Description 08/30/2022 Diagnostic Neurology Karin Ramachandran M.D., M.P.H. [address] [phone] (Howie dean) 10/10/2022 Office Visit Neurology Karin Ramachandran M.D., M.P.H. [address] [phone] (Howie dean) documented as of this encounter Visit Diagnoses Not on filedocumented in this encounter
--- OUTSIDE RECORDS SUMMARY | 2022-08-29 10:34 | XMS_ITS | Encounter Summary ---
:1960 Author Organization [facility] Address [address] [place] [address] Care Team Providers Name Role Phone Unavailable Primary Care Provider Unavailable Encounter Details Date Type Department Care Team Description 01/25/2006 Hospital Encounter HX NO MAPPING Shannon Barrett M.D. [address] [place] [phone] (Wo rk) Social History Tobacco Use Types Packs/Day Years Used Date Smoking Tobacco: Never Assessed Sex Assigned at Date Recorded Female 07/10/2022 7:32 AM CDT documented as of this encounter Plan of Treatment Upcoming Encounters Date Type Specialty Care Team Description 08/30/2022 Diagnostic Neurology Karin Ramachandran M.D., M.P.H. [address] [phone] (Wo rk) 10/10/2022 Office Visit Neurology Karin Ramachandran M.D., M.P.H. [address] [phone] (Wo rk) documented as of this encounter Visit Diagnoses Not on filedocumented in this encounter
--- OUTSIDE RECORDS SUMMARY | 2022-08-29 10:34 | XMS_ITS | Encounter Summary ---
:1960 Author Organization [facility] Address [address] [place] [address] Care Team Providers Name Role Phone Unavailable Primary Care Provider Unavailable Encounter Details Date Type Department Care Team Description 03/13/[address] [facility] Shannon Buitrago M.D. [address] [place] [address] (Wo dianne) Social History Tobacco Use Types Packs/Day Years Used Date Smoking Tobacco: Never Assessed Sex Assigned at Date Recorded Female 07/10/2022 7:32 AM CDT documented as of this encounter Miscellaneous Notes Telephone Encounter - Conversion, Historical Provider Ser - 03/13/2006 12:00 AM CDT [id number] Pt called, she was wondering if you could write letter explaining the bone density results. She was given results during her last appt but wasn't quite sure if she has osteoporsis or if she is taking medication to prevent it. Thanks Source: [facility] Document Id: [id number] documented in this encounter Plan of Treatment Upcoming Encounters Date Type Specialty Care Team Description 08/30/2022 Diagnostic Neurology Karin Ramachandran M.D., M.P.H. [address], [place] [phone] (Wo rk) 10/10/2022 Office Visit Neurology Karin Ramachandran M.D., M.P.H. [address] [place], [place] [phone] (Wo rk) documented as of this encounter Visit Diagnoses Not on filedocumented in this encounter
--- OUTSIDE RECORDS SUMMARY | 2022-08-29 10:34 | XMS_ITS | Encounter Summary ---
:1960 Author Organization [facility] Address [address] [place] [address] Care Team Providers Name Role Phone Unavailable Primary Care Provider Unavailable Encounter Details Date Type Department Care Team Description 02/20/2007 Hospital Encounter [facility] Provider, Histor ical Social History Tobacco Use Types Packs/Day Years Used Date Smoking Tobacco: Never Assessed Sex Assigned at Date Recorded Female 07/10/2022 7:32 AM CDT documented as of this encounter Plan of Treatment Upcoming Encounters Date Type Specialty Care Team Description 08/30/2022 Diagnostic Neurology Karin Ramachandran M.D., M.P.H. [address] [phone] (Howie dean) 10/10/2022 Office Visit Neurology Karin Ramachandran M.D., M.P.H. [address] [phone] (Howie dean) documented as of this encounter Visit Diagnoses Not on filedocumented in this encounter
--- OUTSIDE RECORDS SUMMARY | 2022-08-29 10:34 | XMS_ITS | Encounter Summary ---
:1960 Author Organization [facility] Address [address] [place] [address] Care Team Providers Name Role Phone Unavailable Primary Care Provider Unavailable Encounter Details Date Type Department Care Team Description 01/03/2007 Hospital Encounter HX [facility] XRAY Provider, Histori darlin Social History Tobacco Use Types Packs/Day Years Used Date Smoking Tobacco: Never Assessed Sex Assigned at Date Recorded Female 07/10/2022 7:32 AM CDT documented as of this encounter Plan of Treatment Upcoming Encounters Date Type Specialty Care Team Description 08/30/2022 Diagnostic Neurology Karin Ramachandran M.D., M.P.H. [address] [phone] (Howie dean) 10/10/2022 Office Visit Neurology Karin Ramachandran M.D., M.P.H. [address] [phone] (Howie dean) documented as of this encounter Visit Diagnoses Not on filedocumented in this encounter
--- OUTSIDE RECORDS SUMMARY | 2022-08-29 10:34 | XMS_ITS | Encounter Summary ---
:1960 Author Organization [facility] Address [address] [place] [address] Care Team Providers Name Role Phone Unavailable Primary Care Provider Unavailable Encounter Details Date Type Department Care Team Description 03/05/2007 Hospital Encounter HX [id number] INTERNMED Provider, Chapito galloway Social History Tobacco Use Types Packs/Day Years Used Date Smoking Tobacco: Never Assessed Sex Assigned at Date Recorded Female 07/10/2022 7:32 AM CDT documented as of this encounter Progress Notes Conversion, Historical Provider Ser - 03/05/2007 9:30 AM CDT [id number] HISTORY & PHYSICAL CC: Chief Complaint Patient presents with Pre-Op Exam right shoulder on 03/10/07 at [facility] Historian: Patient HPI: Zandra Lopez is a 46 year old female presents to clinic today for a pre- operative medical exam. The patient was referred by Dr. Collins for perioperative manangement of: Patient Active Problem List Diagnoses Code HYPOTHYROIDISM NOS 244.9 TOBACCO USE DISORDER 305.1 GENERALIZED ANXIETY DIS 300.02 DEPRESSIVE DISORDER NEC 311 BENIGN HYPERTENSION 401.1 CARPAL TUNNEL SYNDROME 354.0 CERVICALGIA 723.1 DISC DISPLACEMENT NOS 722.2 HEADACHE 784.0 ROTATOR CUFF RUPTURE 727.61 Patient is having left shoulder arthroscopy with rotator cuff repair, possible mini-open rotator cuff repair on 03/10/07 by under choice of anesthesia. PMH: Past Medical History Diagnosis Date CARPAL TUNNEL SYNDROME HYPERTENSION NOS Essential hypertension HYPOTHYROIDISM NOS Hypothyroidism ABSENCE OF MENSTRUATION 2002 Past Surgical History Procedure Date Skeletal procedure date: fracture L humerus Revise median n/carpal tunnel surg 02/23/03 LT ALLERGIES: Allergies Allergen Reactions Latex rash, hives MEDICATION: Current outpatient prescriptions Medication Sig PERCOCET OR 1 OR 2 TABLETS EVERY 6 HOURS NEEDED IBUPROFEN 200 MG OR CAPS 2 tabs and limits to 4 daily AMBIEN 10 MG OR TABS ONE AT BEDTIME, NEEDED CHANTIX STARTING MONTH JENNIFER 0.5 MG X 11 & 1 MG X 14 OR MISC as directed SYNTHROID 75 MCG OR TABS one daily ACTONEL 35 MG OR TABS 1 TABLET WEEKLY TAKEN 30 MINUTES BEFORE A MEAL ADALAT CC### 30 MG OR TBCR 1 TABLET DAILY CALCIUM + D OR 1 TABLET DAILY ASPIRIN 81 MG OR CPEP 1 CAPSULE DAILY MULTI-DAY/CALCIUM/EXTRA IRON OR None Entered FAMILY HISTORY: Family History Problem Relation Allergies Mother Allergies Sister Arthritis Sister self Cancer Father skin Cancer Paternal Aunt unknown location Hypertension Sister Hypertension Father Stroke Father age 74 (has had multiple) Breast CA Paternal Aunt and her 2 daughters SOCIAL HISTORY: History Social History Marital Status: Spouse Name: denis Number of Children: 1 Years of Education: N/A Social History Main Topics Tobacco Use: Yes -- 1.0 packs/day for 20 years 1 pack per day Alcohol Use: Yes social--6 beers/week Drug Use: No Sexually Active: Yes -- Male partner(s) menopausal-decreased libido Other Topics Concern Not on file Social History Narrative No narrative on file REVIEW OF SYSTEMS: Gen: feels well Eyes: negative ENT: negative Resp: no dyspnea or cough CV: no h/o chest pain or h/o cad; able to do 4-10 METs w/o exertional symptoms GI: negative : negative Heme: no h/o excessive bleeding or VTE Neuro: negative Psych: negative Skin: negative MS: left shoulder pain since a fall in Jul 31 PHYSICAL EXAM: Blood pressure 112/70, pulse 74, temperature 98, temperature source Temporal, height 5' 5 (1.65 m),weight 144 lbs (65.3 kg), last menstrual period Postmenopausal. GEN: Well developed, well nourished, well groomed in appearance. EYES: PERRL, EOMI. Anicteric sclerae. ENT: External inspection is normal. Hearing is intact. No otic or nasal discharge. Mucous membranes normal. Oropharynx is unremarkable in appearance. NECK: No lymphadenopathy, no JVD, no thyromegally. Supple. RESP: Chest is clear to auscultation. No rales or rhonchi notable. Normal excursion bilaterally. No dullness to percussion. CARDIAC: Regular rate and rhythm. No S3 or S4 noted. No rubs. No murmur on auscultation. No edema inthe lower extremities. GI: Abdomen is soft and non-tender. Bowel sounds present on auscultation. No palpable masses or hepatosplenomegaly. SKIN: No rash or lesions on inspection. NEURO: Oriented. Awake and alert. No cranial nerve deficits. PSYCH: Normal mood and affect. Thought content appropriate. MS: Left shoulder tender to palpation Labs Result Reviewed: NA 138 01/18/2006 POTASSIUM 3.8 01/18/2006 CHLORIDE 100 01/18/2006 CO2 28 01/18/2006 GLC 103 01/18/2006 BUN 20 01/18/2006 CR 0.85 01/18/2006 CHELA 9.2 01/18/2006 WBC 9,100 02/19/2003 HGB 14.2 02/19/2003 TSH 1.16 11/26/2005 Imaging Result Reviewed: No (Independent review: No) Tests Result Reviewed: No (Independent review: No) Review & summarization of old records done: Yes, last office visit progress note reviewed. Impression: SATISFACTORY PREOPERATIVE EXAMINATION TOBACCO USE DISORDER-on Chantix and trying to quit HYPERTENSION-controlled Recommendations: Patient able to undergo surgery? Yes, from a medical standpoint the patient does not appear to haveany current infections and is a low risk for cardiopulmonary complications due to any type of anesthesia and the proprosed surgical procedure, therefore recommend proceding as scheduled. ASA Class II Medication Instructions: 1. Patient has stopped aspirin and ibuprofen already. 2. She should take her usual morning medications (adalat, synthroid, chantix) with a small sip of water on the morning of surgery. Follow-up: With primary care physician as planned for annual exam. A copy of this report will be sent to Dr. Collins for review. Case Hauser M.D. Department of Internal Medicine [facility] Document Id: [id number] documented in this encounter Plan of Treatment Upcoming Encounters Date Type Specialty Care Team Description 08/30/2022 Diagnostic Neurology Karin Ramachandran M.D., M.P.H. [address] [place] [phone] (Howie dean) 10/10/2022 Office Visit Neurology Karin Ramachandran M.D., M.P.H. [address], [place] [phone] (Howie dean) documented as of this encounter Visit Diagnoses Not on filedocumented in this encounter
--- OUTSIDE RECORDS SUMMARY | 2022-08-29 10:34 | XMS_ITS | Encounter Summary ---
:1960 Author Organization [facility] Address [address] [place] [address] Care Team Providers Name Role Phone Unavailable Primary Care Provider Unavailable Encounter Details Date Type Department Care Team Description 02/05/2006 Hospital Encounter HX [facility] RWZU INTERNMED Shannon Barrett M.D. [address] [place] [address] (Wo rk) Social History Tobacco Use Types Packs/Day Years Used Date Smoking Tobacco: Never Assessed Sex Assigned at Date Recorded Female 07/10/2022 7:32 AM CDT documented as of this encounter Progress Notes Shannon Barrett M.D. - 02/05/2006 11:30 AM CST [id number] SUBJECTIVE: Patient here for a physical. 1)Currently concerned about L hip pain x several months. Denies trauma to hip. Pain worse when getting up in the am--describes it as a stiffness. No numbness or tingling in leg. 2)C/O burning sensation in throatx 2months. Has used OTC Zantac 75 mg po daily with no relief [id number]. Burning not worse with eating, drinking or any specific trigger. No relief with Zantac, milk. Denies sensation of FB in throat. No dyspepsia,nausea, vomiting. ALLERGIES: Allergies Allergen Reactions Latex rash, hives MEDICATIONS: Current outpatient prescriptions Medication Sig CALCIUM + D OR 1 TABLET DAILY RANITIDINE 75 MG OR TABS 1 TABLET 1 TO 2 TIMES A DAY NEEDED ASPIRIN 81 MG OR CPEP 1 CAPSULE DAILY MULTI-DAY/CALCIUM/EXTRA IRON OR None Entered SYNTHROID 75 MCG OR TABS one daily ADALAT CC 30 MG OR TBCR 1 TABLET DAILY SOCIAL HISTORY: History Substance Use Topics Tobacco [...] Revise median n/carpal tunnel surg 02/23/03 LT FAMILY HISTORY: Family History Problem Relation Allergies Mother Allergies Sister Arthritis Sister self Cancer Father skin Cancer Paternal Aunt unknown location Hypertension Sister Hypertension Father Stroke Father age 74 (has had multiple) Breast CA Paternal Aunt and her 2 daughters REVIEW OF SYSTEMS: GENERAL: Denies any fever, chills, fatigue or night sweats. EYES: Last eye exam 8-9 years ago, vision occasionally blurry or cloudy. No eye pain, floaters or transient loss of vision ENT: No chronic nasal congestion, sinus pressure, postnasal drip, recurrent infections or dysphagia.Reports harshness in voice x 2 weeks with no recent URI. MOUTH: dental visit last year. No odontalgia, sores. C/O mild hoarsness in voice noticed over last 2weeks. CARDIO-VASCULAR: No chest pain, palpitations, syncope, orthopnea, PND or pedal edema. RESPIRATORY: SOB if she runs up a flight of stairs. Occ. Dry cough. No hemoptysis. GI: Normal appetite. No change in weight or eating habits. No abdominal pain, nausea or vomiting. C/O burning sensation in throat as above. Bowels are regular. No change in consistency or color, no melena or hematochezia. : No dysuria, hematuria, frequency or urgency. No stress incontinence. No history of urinary tractinfections or renal stones. C/O vaginal dryness, without itching, burning or discharge. MUSCULO-SKELETAL: Morning joint aches, simran in hands and L hip. No H/O back pain or discomfort. DIRECTOR SAFETY COUNCIL: No headaches. No dizziness, seizures, tremors, numbness, tingling or excessive weakness. Normalunassisted gait. SKIN: No history of rashes or chronic skin lesions. OBJECTIVE: BP 120/80 Pulse 74 Temp (Src) 98.3 (Temporal) Ht 5' 5 (1.65m) Wt 154 lbs (69.9kg) LMP Postmenopausal Patient is a pleasant 45 year old female of stated age resting comfortably. HEENT: Atraumatic, normocephalic, PERRLA, EOMI without nystagmus. Sclera nonicteric. Conjunctiva noncongested. External auditory canals clear. TM's intact and lustrous. Throat shows no exudate or erythema. Multiple dental repairs. Neck: Supple. No thyromegaly, no lymph nodes, no bruits and no venous distention. Respiratory system: Clear to auscultation, bilaterally. CVS: Rate and rhythm regular. No murmur, gallop or rub. 2+ pedal pulses. Breasts: No breast masses or tenderness, No axillary masses or tenderness, no nipple discharge Abdomen: Soft, nontender, nondistended. No hepatosplenomegaly, no masses. Bowel sounds normal. No CVA tenderness. Hernial orifices free. Femoral pulses present. Genitalia: PELVIC EXAM: Speculum reveals normal external female genitalia. Normal hair distribution. Vagina shows pink mucosa, moist with normal rugae. Cervix is without inflammation or abnormal discharge. Pap smear was obtained. Bimanual exam reveals Normal shape, position and consistency and Nontender Adnexa reveals Normal without masses or tenderness. Rectal Exam: Normal tone. No masses. No tenderness. Heme negative stools. 1 moderately sized external hemmorhoid between 3 and 6 oclock. DIRECTOR SAFETY COUNCIL: Alert and oriented x3. Cranial nerves intact. No deficit noted. Extremities: No cyanosis, clubbing or edema. Bones and joints show no gross abnormalities. Skin: Appears normal. Labs reviewed with patient: Mammogram and Dexa scan results Impression: Normal Physical. L Hip pain. Gastroesophageal reflux disease Tobacco abuse Recommendation: Preventive services: Screening Labs: none indicated Mammogram: 01/25/06 Pap: Done today Counseling: Smoking - counselled on recommended to continue Calcium 1500 mg a day recommended to continue ASA 81 mg baby aspirin PLAN: L hip pain 1) 1000 mg tylenol po bid 2) Actonel 35 mg po weekly PLAN: GERD 1) Prilosec OTC 2 tab daily x 3-4 days followed by 1 tablet daily. (Samples given) 2) Call if working well and will provide RX. 3) Will check for H.Pylori and notify pt of results.Discussed treatment options.Pt agreable. PLAN: Tobacco abuse 1) Call when ready to quit for help. 2) Counselled on options regarding smoking cessation. Plan:HTN 1) Medication: continue current medication regimen unchanged 2) Dietary sodium restriction 3) Regular aerobic exercise 4) Recheck in 3 month, sooner should new symptoms or problems arise. 5) Recommend BP checks as often as possible and if numbers are higher than 135/85 consistently,come in for recheck. Patient Education: Reviewed risks of hypertension and principles of treatment. Dexa scan results reviewed.Discussed treatment for Osteoporosis prevention and treatment.Disccussed Calcium supplements,dietary sources,need for exercise and medications for treatment and prevention.Instructed on how to take Bisphosphonates and also the pros and cons of these meds including the adverse effects.Pt agreable and started on Actonel. I also added a prolactin level to her labs to check her galactorrhea. Source: [facility] Document Id: [id number] Electronically signed by Conversion, [facility] Corrections Corporal [id number] at 04/29/2017 6:39 PM CDT documented in this encounter Plan of Treatment Upcoming Encounters Date Type Specialty Care Team Description 08/30/2022 Diagnostic Neurology Karin Ramachandran M.D., M.P.H. [address] [phone] (Howie dean) 10/10/2022 Office Visit Neurology Karin Ramachandran M.D., M.P.H. [address] [phone] (Howie dean) documented as of this encounter Visit Diagnoses Not on filedocumented in this encounter
--- OUTSIDE RECORDS SUMMARY | 2022-08-29 10:34 | XMS_ITS | Encounter Summary ---
:1960 Author Organization [facility] Address [address] [place] [address] Care Team Providers Name Role Phone Unavailable Primary Care Provider Unavailable Encounter Details Date Type Department Care Team Description 02/18/2007 Hospital Encounter HX [facility] ORTHO Carrillo Persaud M.D. [address] [place], [place] [address] Social History Tobacco Use Types Packs/Day Years Used Date Smoking Tobacco: Never Assessed Sex Assigned at Date Recorded Female 07/10/2022 7:32 AM CDT documented as of this encounter Progress Notes Carrillo Persaud M.D. - 02/18/2007 3:15 PM CDT [id number] CLINIC ENCOUNTER Zandra was here to review her MRI scan of the left shoulder. What it shows is what appears to be a healed, kind of undisplaced fracture of the greater tuberosity region of the proximal humerus, in combination with a small but full thickness tear of the rotator cuff. This matches her story and her exam pretty well. I think that the treatment if she decides to go ahead to do it would be to scope her shoulder and do a rotator cuff repair possibly through the scope or possibly through a mini open incision. If she chooses that, I described a period of 3-4 months of recovery. I think there is a 90% chance of success. The other way of going here would be to live with it and perhaps do some exercises to strength the shoulder girdle and then use oral anti-inflammatory medications to deal with episodes of discomfort. Zandra wanted to go home and think about this and will call us with any further questions. We will await to hear from here. Return to clinic as needed. Milly Sen/[facility] cc: Source: [facility] Document Id: [id number] documented in this encounter Plan of Treatment Upcoming Encounters Date Type Specialty Care Team Description 08/30/2022 Diagnostic Neurology Karin Ramachandran M.D., M.P.H. [address] [phone] (Wo rk) 10/10/2022 Office Visit Neurology Karin Ramachandran M.D., M.P.H. [address] [phone] (Wo rk) documented as of this encounter Visit Diagnoses Not on filedocumented in this encounter
--- OUTSIDE RECORDS SUMMARY | 2022-08-29 10:34 | XMS_ITS | Encounter Summary ---
:1960 Author Organization [facility] Address [address] [place] [address] Care Team Providers Name Role Phone Unavailable Primary Care Provider Unavailable Encounter Details Date Type Department Care Team Description 11/26/2005 Hospital Encounter HX [facility] LAB Provider, Historic al Social History Tobacco Use Types Packs/Day Years Used Date Smoking Tobacco: Never Assessed Sex Assigned at Date Recorded Female 07/10/2022 7:32 AM CDT documented as of this encounter Miscellaneous Notes Miscellaneous - Shannon Vergara M.D. - 11/26/2005 10:00 AM CST [id number] Addended by: SHANNON VERGARA on: 11/26/2005 4:09:09 PM Modules accepted: Orders Source: [facility] Document Id: [id number] Electronically signed by Gabriela [facility] Securities Counselor [id number] at 04/29/2017 6:18 PM CDT documented in this encounter Plan of Treatment Upcoming Encounters Date Type Specialty Care Team Description 08/30/2022 Diagnostic Neurology Karin Ramachandran M.D., M.P.H. [address] [place] [phone] (Howie dean) 10/10/2022 Office Visit Neurology Karin Ramachandran M.D., M.P.H[facility] [address] [place] [phone] (Wo dianne) documented as of this encounter Visit Diagnoses Not on filedocumented in this encounter
--- OUTSIDE RECORDS SUMMARY | 2022-08-29 10:34 | XMS_ITS | Encounter Summary ---
:1960 Author Organization [facility] Address [address] [place] [address] Care Team Providers Name Role Phone Unavailable Primary Care Provider Unavailable Encounter Details Date Type Department Care Team Description 08/06/[address] [facility] Shannon Buitrago M.D. [address] [place] [address] (Wo dianne) Social History Tobacco Use Types Packs/Day Years Used Date Smoking Tobacco: Never Assessed Sex Assigned at Date Recorded Female 07/10/2022 7:32 AM CDT documented as of this encounter Miscellaneous Notes Telephone Encounter - Conversion, Historical Provider Ser - 08/06/2005 12:00 AM CDT [id number] last visit 11/07/04 Last 1 BP Readings: Date: BP: 11/07/2004 132/84 CAD/HTN and or CHF labs: CR 0.64 11/07/2004 POTASSIUM 4.4 11/07/2004 TSH 1.11 11/07/2004 Source: [facility] Document Id: [id number] documented in this encounter Plan of Treatment Upcoming Encounters Date Type Specialty Care Team Description 08/30/2022 Diagnostic Neurology Karin Ramachandran M.D., M.P.H. [address] [place], [place] [phone] (Wo rk) 10/10/2022 Office Visit Neurology Karin Ramachandran M.D., M.P.H. [address] [place], [place] [phone] (Wo rk) documented as of this encounter Visit Diagnoses Not on filedocumented in this encounter
--- OUTSIDE RECORDS SUMMARY | 2022-08-29 10:34 | XMS_ITS | Encounter Summary ---
:1960 Author Organization [facility] Address [address] [place] [address] Care Team Providers Name Role Phone Unavailable Primary Care Provider Unavailable Encounter Details Date Type Department Care Team Description 09/07/2005 Hospital Encounter HX [facility] Shannon Buitrago M.D. [address] [place] [address] (Wo rk) Social History Tobacco Use Types Packs/Day Years Used Date Smoking Tobacco: Never Assessed Sex Assigned at Date Recorded Female 07/10/2022 7:32 AM CDT documented as of this encounter Miscellaneous Notes Miscellaneous - Conversion, Historical Provider Ser - 09/07/2005 12:00 AM CDT [id number] Zandra Lopez [address] [place] [address] MR# [id number] November 15, 2005 Dear Ms. Lopez, After reviewing your records, Dr. Barrett has requested that you return for some blood tests. Please stop in our clinic for non-fasting lab work in the next week to recheck your thyroid level. Preventative screening/tests such as these helps insure your health for years to come and helps us to manage your health concerns in a more timely manner. If you have and questions or concerns regarding the screening/tests please contact us so that they can be addressed. Our phone numbers are [phone] or . Sincerely, Kaelyn Nieto RN - Heading And Priming Tool Setter [facility] Source: [facility] Document Id: [id number] Telephone Encounter - Conversion, Historical Provider Ser - 09/07/2005 12:00 AM CDT [id number] patient needs refill on her thyroid meds please place order for tsh was drawn today Diabetes Labs: No results found for this basename: A1C:1 LDL 96 11/16/2002 TSH 1.11 11/07/2004 Source: [facility] Document Id: [id number] documented in this encounter Plan of Treatment Upcoming Encounters Date Type Specialty Care Team Description 08/30/2022 Diagnostic Neurology Karin Ramachandran M.D., M.P.H. [address] [phone] (Wo dianne) 10/10/2022 Office Visit Neurology Karin Ramachandran M.D., M.P.H. [address] [phone] (Wo dianne) documented as of this encounter Visit Diagnoses Not on filedocumented in this encounter
--- OUTSIDE RECORDS SUMMARY | 2022-08-29 10:34 | XMS_ITS | Encounter Summary ---
:1960 Author Organization [facility] Address [address] [place] [address] Care Team Providers Name Role Phone Unavailable Primary Care Provider Unavailable Encounter Details Date Type Department Care Team Description 12/13/2003 Hospital Encounter HX NO MAPPING Provider, Historical Social History Tobacco Use Types Packs/Day Years Used Date Smoking Tobacco: Never Assessed Sex Assigned at Date Recorded Female 07/10/2022 7:32 AM CDT documented as of this encounter Miscellaneous Notes Miscellaneous - Conversion, Historical Provider Ser - 12/13/2003 12:00 AM ROLLOFF DRIVER [id number] December 13, 2003 Zandra Lopez [address] [place] [address] Dear Zandra I want to inform you that 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 I will be leaving the [facility] December 17, 2003. The [facility] will continue to be staffed by Libra Starks DO and Shannon Barrett MD. In addition, we are fortunate to have JAGUAR Crowe on our staff. The [facility] continues to recruit another physician. Any questions you may have regarding refills, problems, etc., please call and speak to our well-trained nursing staff. It has been a pleasure being part of your health care. Sincerely, JAGUAR Gates Source: [facility] Document Id: [id number] documented in this encounter Plan of Treatment Upcoming Encounters Date Type Specialty Care Team Description 08/30/2022 Diagnostic Neurology Karin Ramachandran M.D., M.P.H. [address], [place] [phone] (Wo rk) 10/10/2022 Office Visit Neurology Karin Ramachandran M.D., M.P.H. [address], [place] [phone] (Wo rk) documented as of this encounter Visit Diagnoses Not on filedocumented in this encounter
--- OUTSIDE RECORDS SUMMARY | 2022-08-29 10:34 | XMS_ITS | Encounter Summary ---
:1960 Author Organization [facility] Address [address] [place] [address] Care Team Providers Name Role Phone Unavailable Primary Care Provider Unavailable Encounter Details Date Type Department Care Team Description 03/05/2007 Hospital Encounter HX [facility] PT Nishant Hughes, P.T. [address] [place], [place] [phone] Social History Tobacco Use Types Packs/Day Years Used Date Smoking Tobacco: Never Assessed Sex Assigned at Date Recorded Female 07/10/2022 7:32 AM CDT documented as of this encounter Progress Notes Chelo Hughes, P.Mikey. - 03/05/2007 8:30 AM CDT [id number] PHYSICAL THERAPY PRE-OPERATIVE ASSESSMENT AND EDUCATION Patient Name: Zandra Lopez : 1960 SUBJECTIVE PRESENTATION AND ETIOLOGY Chief Complaint: Left shoulder pain and limited ability to perform activities of daily living, work activities and leisure / sports activities. Onset / Etiology: DOI: 07/[address] and landed on arm actually had fx's also that are healing Character / Frequency / Intensity: burning / Constant / Current 6-7/10 LEVEL OF FUNCTION AT START OF CARE Potential Home or Community Barriers: None CURRENT / PREVIOUS INTERVENTION(S): Referring Provider: Carrillo Persaud M.D. DOS: 03/10/07 Post-Op Recheck: 03/19/07 Treatment: Prescribed medications for chief complaint: Pain Medication - Taking as prescribed - Yes. Effective Yes Relieving Activities / Self Care: OTC Medication(s): ibuprofen Previous / Current therapies for current chief complaint: None OBJECTIVE: POSTURE: Observation: sits comfortably in chair Static and Dynamic: good; rounded shoulders GAIT, LOCOMOTION, and BALANCE: Gait and Locomotion: Non-Antalgic RANGE OF MOTION: Active: L shoulder 100 degrees, 70 degrees, IR limited greater than 20 degrees, and ER 40 degrees Passive: WNL/WFL Today's Treatment: THERAPEUTIC PROCEDURES Self Care / Home Management Trainin minutes Pre and Post-op Joint Protection: use of sling at all times except for when doing exercises; positioning for sleeping at night with use of pillows to prop arm in bed or recliner Pre and Post-op Symptom Control: use of pain meds as prescribed by physician along with use of cold packs every 1-2 waking hours for 20' Pre and Post-op Edema Management: use of cold packs as stated above Therapeutic Exercise: 10 minutes Pre and Post-op HEP: Issued written handout(s): AROM cervical flexion/extension/B SB and rotation, scapular retraction with shoulder depression, AROM elbow flexion/extension/pronation/supination, wrist flexion/extension, and opening/closing hand. Pendulum exercise for L shoulder to be done 4-5 x a day. Treatment Duration: 20 minutes. ASSESSMENT Post session summary: Patient demonstrates a good understanding of HEP / Self Care. PLAN: Patient will benefit from education in self care / home management training to include instruction in: edema control techniques, joint protection principles and symptom control techniques and therapeutic exercise to develop: strength and endurance and range of motion and gait training to facilitate: ambulation with or without an assistive device and stair climbing with or without an assistive device. Benefits/risks/alternatives to treatment have been reviewed and the patient has been instructed to contact this office if they have any questions or concerns. Patient to be seen post operatively per rotator cuff protocol in [place]. Chelo Hughes, PT PHOTO OFFSET PRINTER PRESENT: MARLENA MULTIDISCIPLINARY PATIENT / FAMILY EDUCATION RECORD Department: Physical Therapy Readiness to Learn: Ability to understand verbal instructions, Ability to understand written instructions, Knowledge of educational needs / treatment plan Specific Barriers to Learning: None Referrals: None Learning Needs: Rehabilitation techniques to improve functional independence Who: Patient How: Demonstration, Verbal instructions, Written instructions Response: Appropriate verbal response, Asked questions, Demonstrated ability, Verbalized recall / understanding Source: [facility] Document Id: [id number] Electronically signed by Gabriela [facility] Utility Worker [place] [id number] at 04/29/2017 10:22 AM CDT documented in this encounter Plan of Treatment Upcoming Encounters Date Type Specialty Care Team Description 08/30/2022 Diagnostic Neurology Karin Ramachandran M.D., M.P.H. [address] [phone] (Wo rk) 10/10/2022 Office Visit Neurology Karin Ramachandran M.D., M.P.H. [address] [phone] (Wo rk) documented as of this encounter Visit Diagnoses Not on filedocumented in this encounter
--- OUTSIDE RECORDS SUMMARY | 2022-08-29 10:34 | XMS_ITS | Encounter Summary ---
:1960 Author Organization [facility] Address [address] [place] [address] Care Team Providers Name Role Phone Unavailable Primary Care Provider Unavailable Encounter Details Date Type Department Care Team Description 02/04/2007 Hospital Encounter HX [facility] ORTHO Carrillo Persaud M.D. [address] [place], [place] [address] Social History Tobacco Use Types Packs/Day Years Used Date Smoking Tobacco: Never Assessed Sex Assigned at Date Recorded Female 07/10/2022 7:32 AM CDT documented as of this encounter Progress Notes Carrillo Persaud M.D. - 02/04/2007 2:00 PM CDT [id number] CLINIC ENCOUNTER SUBJECTIVE: Zandra took a hard fall onto her left shoulder about July of last fall and was told that she had a shoulder gradually the top of her shoulder stopped hurting, but she is left with discomfort and weakness in the supraspinatus rotator cuff area. It hurts for her to lie on that side. If her arm is down at her side, it hurts to reach out in front or reach behind her back. OBJECTIVE: On exam the patient is tender over the greater tuberosity region. Her rotator cuff strength in the supraspinatus is 4/5 with significant discomfort. She is nontender at the acromioclavicular joint. She has lost some internal rotation being able to reach behind to about her belt area. ASSESSMENT: My impression is that she probably damaged the rotator cuff. The real question is whether or not she has a partial thickness tear which I think is probably what it is or whether there is a small full thickness tear or neither of the above. PLAN: To get a better handle on this we are ordering an MRI scan of the left shoulder, and I will see Zandra back again to review it and reexamine her in about 2 weeks. Then we will try to make some decisions as to appropriate treatment. The options would include subacromial cortisone, physical therapy and strengthening or perhaps surgical intervention. Carrillo Persaud M.D. Ursula cc: Source: [facility] Document Id: [id number] Electronically signed by Gabriela, [facility] Application Development Intern [id number] at 04/29/2017 1:21 PM CDT documented in this encounter Plan of Treatment Upcoming Encounters Date Type Specialty Care Team Description 08/30/2022 Diagnostic Neurology Karin Ramachandran M.D., M.P.H. [address] [phone] (Wo rk) 10/10/2022 Office Visit Neurology Karin Ramachandran M.D., M.P.H. [address] [phone] (Wo rk) documented as of this encounter Visit Diagnoses Not on filedocumented in this encounter
--- OUTSIDE RECORDS SUMMARY | 2022-08-29 10:34 | XMS_ITS | Encounter Summary ---
:1960 Author Organization [facility] Address [address] [place] [address] Care Team Providers Name Role Phone Unavailable Primary Care Provider Unavailable Encounter Details Date Type Department Care Team Description 04/14/2004 Hospital Encounter HX [facility] Provider, Historic al Social History Tobacco Use Types Packs/Day Years Used Date Smoking Tobacco: Never Assessed Sex Assigned at Date Recorded Female 07/10/2022 7:32 AM CDT documented as of this encounter Plan of Treatment Upcoming Encounters Date Type Specialty Care Team Description 08/30/2022 Diagnostic Neurology Karin Ramachandran M.D., M.P.H. [address] [phone] (Howie dean) 10/10/2022 Office Visit Neurology Krain Ramachandran M.D., M.P.H. [address] [phone] (Howie dean) documented as of this encounter Visit Diagnoses Not on filedocumented in this encounter
--- OUTSIDE RECORDS SUMMARY | 2022-08-29 10:34 | XMS_ITS | Encounter Summary ---
:1960 Author Organization [facility] Address [address] [place] [address] Care Team Providers Name Role Phone Unavailable Primary Care Provider Unavailable Encounter Details Date Type Department Care Team Description 01/03/2007 Hospital Encounter HX NO MAPPING Shannon Barrett M.D. [address] [place] [phone] (Wo rk) Social History Tobacco Use Types Packs/Day Years Used Date Smoking Tobacco: Never Assessed Sex Assigned at Date Recorded Female 07/10/2022 7:32 AM CDT documented as of this encounter Plan of Treatment Upcoming Encounters Date Type Specialty Care Team Description 08/30/2022 Diagnostic Neurology Karin Ramachandran M.D., M.P.H[facility] [address] [phone] (Wo rk) 10/10/2022 Office Visit Neurology Karin Ramachandran M.D., M.P.H. [address] [phone] (Wo rk) documented as of this encounter Visit Diagnoses Not on filedocumented in this encounter
--- OUTSIDE RECORDS SUMMARY | 2022-08-29 10:34 | XMS_ITS | Encounter Summary ---
:1960 Author Organization [facility] Address [address] [place] [address] Care Team Providers Name Role Phone Unavailable Primary Care Provider Unavailable Encounter Details Date Type Department Care Team Description 01/18/2006 Hospital Encounter HX [facility] Shannon Barrett M.D. [address] [place] [phone] (Wo rk) Social History Tobacco Use Types Packs/Day Years Used Date Smoking Tobacco: Never Assessed Sex Assigned at Date Recorded Female 07/10/2022 7:32 AM CDT documented as of this encounter Progress Notes Shannon Barrett M.D. 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 HYPERTENSION: The patient has a history of hypertension of moderate severity of long standing duration. She indicates that She is feeling well and denies any symptoms referable to Her elevated blood pressure. Specifically denies chest pain, palpitations, dyspnea, orthopnea, PND or peripheral edema. Current medication regimen is as listed below. Patient denies any side effects of medication. Zandra is here also to discuss menopausal symptoms. She says it has been 2 years since she got her periods and over the past 2 years she has noticed that she is having increasing amount of hot flashes. She says sometimes it is to the point it interferes with daily activities but she says over the past few months, especially in the last 2 weeks, she has noticed some improvement. She says other symptoms besides the hot flashes, the sweating associated with it and the insomnia. She says she goes to bed and is unable to fall asleep. She has a lot of thought rumination with it. She also notes that she has mood swings and at times is anxious. She says her skin, her hair and vaginal dryness is noticeable. She thinks she is in menopause and would like to be checked for it. Current outpatient prescriptions Medication Sig SYNTHROID 75 MCG OR TABS one daily ADALAT CC 30 MG OR TBCR 1 TABLET DAILY Allergies Allergen Reactions Latex rash, hives History Substance Use Topics Tobacco Use: Yes -- 1.0 packs/day for 20 years 1 pack per day Alcohol Use: Yes social Past Medical History Diagnosis Date CARPAL TUNNEL SYNDROME HYPERTENSION NOS Essential hypertension HYPOTHYROIDISM NOS Hypothyroidism Family History Problem Relation Allergies Mother Allergies Sister Arthritis Sister self Cancer Father skin Cancer Paternal Aunt Heart Sister Hypertension Sister Hypertension Father Stroke Father Breast CA Paternal Aunt and her 2 daughters Review Of Systems General: negative for, fever, chills, unplanned weight loss, headaches, dizziness Skin: negative for, pigmentation, rash, scaling, itching, bruising Eyes: negative ENT: negative Resp: negative for, cough, sputum, dyspnea, dyspnea on exertion and wheezing CV: negative for, palpitations, tachycardia, irregular heart beat, chest pain, exertional chest painor pressure, paroxysmal nocturnal dyspnea, dyspnea on exertion, orthopnea and lower extremity edema GI: negative for, poor appetite, dysphagia, nausea, vomiting, heartburn/dyspepsia, reflux and abdominal pain : negative Musculoskeletal: negative Neurologic: negative Psychiatric: negative Hematologic: negative Endocrine: negative OBJECTIVE: BP 110/80 Pulse 66 Temp (Src) 98.3 (Temporal) Wt 153 lbs (69.4kg) LMP Irregular Periods Home monitoring: no Pt is well nourished.Is alert aand oriented [...] Pedal edema: no Labs reviewed with patient: TSH and kidney functions ASSESSMENT: SYMPTOMATIC FEMALE CLIMACTERIC STATE BENIGN HYPERTENSION Plan:HTN 1) Medication: continue current medication regimen unchanged 2) Dietary sodium restriction 3) Regular aerobic exercise 4) Recheck in 3 months, sooner should new symptoms or problems arise. 5) Recommend BP checks as often as possible.If BP readings are consistently higher than 135/85,then return to clinic for adjustment of your meds. Patient Education: Reviewed risks of hypertension and principles of Treatment. Osteoporosis Screening: Dexa scan scheduled.Discussed treatment for Osteoporosis prevention and treatment.Disccussed Calciumsupplements,dietary sources,need for exercise and medications for treatment and prevention.Instructed on how to take Bisphosphonates and also the pros and cons of these meds including the adverse effects.Pt agreable and once results are available I will write letter and call in prescription either forprevention or treatment depending on results. RECOMMENDATIONS: 1. I discussed at length with the patient about menopausal symptoms and their treatment including HRT. The pros and cons of using estrogen and the increased risks have been explained to the patient. I told her since the patient is a smoker, I told her probably estrogens may not be the right answer andwe could consider SSRIs which would help not only with her hot flashes but maybe the insomnia and the mood swings as well. I reviewed again the pros and cons of using SSRI's vs. Using the estrogens andthe side effect profile of the SSRI's. The patient is recommended to think about this and when she comes in for her physical over the next couple weeks, we will re-address these issues and make a decision on both management of menopausal symptoms and osteoporosis. Total time spent with the patient: 30minutes. Of that, more than 20 minutes was spent in discussion of management of osteoporosis and menopausal symptoms and various medications. Patient expresses understanding. Source: [facility] RWMCHXTRANSXRTFSYS Document Id: [id number] Electronically signed by Gabriela [facility] Cookie Breaker [id number] at 04/29/2017 2:33 PM CDT documented in this encounter Plan of Treatment Upcoming Encounters Date Type Specialty Care Team Description 08/30/2022 Diagnostic Neurology Karin Ramachandran M.D., M.P.H. [address], [place] [phone] (Wo rk) 10/10/2022 Office Visit Neurology Karin Ramachandran M.D., M.P.H. [address] [place] [phone] (Wo rk) documented as of this encounter Visit Diagnoses Not on filedocumented in this encounter
--- OUTSIDE RECORDS SUMMARY | 2022-08-29 10:34 | XMS_ITS | Encounter Summary ---
:1960 Author Organization [facility] Address [address] [place] [address] Care Team Providers Name Role Phone Unavailable Primary Care Provider Unavailable Encounter Details Date Type Department Care Team Description 03/19/2007 Hospital Encounter HX [facility] Juan Antonio Walters P.A.-C. Social History Tobacco Use Types Packs/Day Years Used Date Smoking Tobacco: Never Assessed Sex Assigned at Date Recorded Female 07/10/2022 7:32 AM CDT documented as of this encounter Progress Notes Juan Antonio Walters - 03/19/2007 1:00 PM CDT [id number] CLINIC ENCOUNTER SUBJECTIVE: Ms. Lopez is a pleasant 46-year-old female who is status post an open rotator cuff repair performed by Dr. Persaud. At this point in time, patient is doing well. She admits she has been using the shoulder a bit more than she realizes she should be but does not have too many questions or concerns. OBJECTIVE: On examination, the incisions all appear to be healing very well with no evidence of infection. CMS of the hand is intact. ASSESSMENT AND PLAN: Ms. Lopez is a pleasant 46-year-old female status post an open rotator cuff repair. Patient was given a consultation for some formal occupational therapy. We talked about the surgical procedure including the significant importance of protecting the cuff repair until it has had an adequate time to heal down. I think she was understanding of the importance of not doing any active motion until this occurs. If she has any questions or concerns, she was encouraged to call. Otherwise, she was told to follow with Dr. Persaud in about one month's time to assure that things are progressing satisfactorily. ZA Parmar/ cc: Source: [facility] RWHXTRANSXSYS Document Id: [id number] documented in this encounter Plan of Treatment Upcoming Encounters Date Type Specialty Care Team Description 08/30/2022 Diagnostic Neurology Karin Ramachandran M.D., M.P.H. [address] [phone] (Wo rk) 10/10/2022 Office Visit Neurology Karin Ramachandran M.D., M.P.H. [address] [place] [phone] (Wo rk) documented as of this encounter Visit Diagnoses Not on filedocumented in this encounter
--- OUTSIDE RECORDS SUMMARY | 2022-08-29 10:34 | XMS_ITS | Encounter Summary ---
:1960 Author Organization [facility] Address [address] [place] [address] Care Team Providers Name Role Phone Unavailable Primary Care Provider Unavailable Encounter Details Date Type Department Care Team Description 12/23/2006 Hospital Encounter HX [facility] Shannon Buitrago M.D. [address] [place] [address] (Wo rk) Social History Tobacco Use Types Packs/Day Years Used Date Smoking Tobacco: Never Assessed Sex Assigned at Date Recorded Female 07/10/2022 7:32 AM CDT documented as of this encounter Miscellaneous Notes Telephone Encounter - Conversion, Historical Provider Ser - 12/23/2006 12:00 AM CST [id number] Chould you do this in pcp's absence [facility] Document Id: [id number] Telephone Encounter - Conversion, Historical Provider Ser - 12/23/2006 12:00 AM CST [id number] Accepting this rx will be faxed directly to pharmacy. Last Visit: 11/06/06 Last 1 BP Readings: Date: BP: 11/06/2006 112/82 Diabetes Labs: No results found for this basename: A1C:1 LDL 96 11/16/2002 TSH 1.16 11/26/2005 CAD/HTN and or CHF labs: CR 0.85 01/18/2006 POTASSIUM 3.8 01/18/2006 Hypercholesterolemia Labs: AST 16 11/16/2002 ALT 33 11/16/2002 CHOL 200 11/16/2002 TRIG 85 11/16/2002 LDL 96 11/16/2002 HDL 87 11/16/2002 Source: [facility] Document Id: [id number] documented in this encounter Plan of Treatment Upcoming Encounters Date Type Specialty Care Team Description 08/30/2022 Diagnostic Neurology Karin Ramachandran M.D., M.P.H. [address] [phone] (Wo rk) 10/10/2022 Office Visit Neurology Karin Ramachandran M.D., M.P.H. [address] [phone] (Wo rk) documented as of this encounter Visit Diagnoses Not on filedocumented in this encounter
--- OUTSIDE RECORDS SUMMARY | 2022-08-29 10:34 | XMS_ITS | Encounter Summary ---
:1960 Author Organization [facility] Address [address] [place] [address] Care Team Providers Name Role Phone Unavailable Primary Care Provider Unavailable Encounter Details Date Type Department Care Team Description 09/10/2006 Hospital Encounter HX [facility] Shannon Buitrago M.D. [address] [place] [phone] (Howie dean) Social History Tobacco Use Types Packs/Day Years Used Date Smoking Tobacco: Never Assessed Sex Assigned at Date Recorded Female 07/10/2022 7:32 AM CDT documented as of this encounter Miscellaneous Notes Telephone Encounter - Conversion, Historical Provider Ser - 09/10/2006 12:00 AM CDT [id number] Last visit with pcp 01/28 Last 1 BP Readings: Date: BP: 02/05/2006 120/80 [facility] Document Id: [id number] documented in this encounter Plan of Treatment Upcoming Encounters Date Type Specialty Care Team Description 08/30/2022 Diagnostic Neurology Karin Ramachandran M.D., M.P.H. [address] [place], [place] [phone] (Wo rk) 10/10/2022 Office Visit Neurology Karin Ramachandran M.D., M.P.H. [address] [place], [place] [phone] (Howie rk) documented as of this encounter Visit Diagnoses Not on filedocumented in this encounter
--- OUTSIDE RECORDS SUMMARY | 2022-08-29 10:34 | XMS_ITS | Encounter Summary ---
:1960 Author Organization [facility] Address [address] [place] [address] Care Team Providers Name Role Phone Unavailable Primary Care Provider Unavailable Encounter Details Date Type Department Care Team Description 12/24/2003 Hospital En[facility] Provider, Chapito galloway Social History Tobacco Use Types Packs/Day Years Used Date Smoking Tobacco: Never Assessed Sex Assigned at Date Recorded Female 07/10/2022 7:32 AM CDT documented as of this encounter Miscellaneous Notes Miscellaneous - Conversion, Historical Provider Ser - 12/24/2003 12:00 AM [employer] [id number] Zandra Lopez [id number] [address] December 24, 2003 Dear Zandra Lopez APPOINTMENT REMINDER: Our records [...] future. You may call our office at [phone] or to schedule a visit. Please disregard this notice if you have already made an appointment. Sincerely, Sera Ríos [facility] Source: [facility] Document Id: [id number] Telephone Encounter - Conversion, Historical Provider Ser - 12/24/2003 12:00 AM CST [id number] >> SERA RÍOS SatDec 24, 2003 3:11 PM >> CALL RECEIVED. Contact: pharmacy faxed refill order to be filled This is one of jadiel's pt. will send her a letter to come in and see somebody. Thanks Source: [facility] RWHXTRANSXSYS Document Id: [id number] documented in this encounter Plan of Treatment Upcoming Encounters Date Type Specialty Care Team Description 08/30/2022 Diagnostic Neurology Karin Ramachandran M.D., M.P.H. [address] [phone] (Howie dean) 10/10/2022 Office Visit Neurology Karin Ramachandran M.D., M.P.H. [address] [place] [phone] (Howie dean) documented as of this encounter Visit Diagnoses Not on filedocumented in this encounter
--- OUTSIDE RECORDS SUMMARY | 2022-08-29 10:34 | XMS_ITS | Encounter Summary ---
:1960 Author Organization [facility] Address [address] [place] [address] Care Team Providers Name Role Phone Unavailable Primary Care Provider Unavailable Encounter Details Date Type Department Care Team Description 01/02/2007 Hospital Encounter HX [facility] INTERNMED Shannon Barrett M.D. [address] [place] [address] (Wo rk) Social History Tobacco Use Types Packs/Day Years Used Date Smoking Tobacco: Never Assessed Sex Assigned at Date Recorded Female 07/10/2022 7:32 AM CDT documented as of this encounter Progress Notes Shannon Barrett M.D. 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 Timing: gradual onset. Recent injury: Yes - fell in Jul 31 and was diagnosed withAC joint seperation.. Where occurred: work. Context: as above. Previous injury: No. Quality of pain: ache, burning and throbbing. Severity of pain: moderate and intermittent. Exacerbated by: movement of L UE Relieved by: rest tried tylenol and ASA for pain, with no relief Neurologic symptoms: negative for, bowel dysfunction, bladder dysfunction, radiation to oneyda leg(s), numbness or tingling of feet, local weakness, involuntary movements, incoordination and tremor 1. The patient says the pain started in the left side of her neck radiating down into her shoulder and her chest radiating down to the lateral aspect of the chest and along her upper arm into the lateral aspect of her upper arm. She says she has a funny sensation in her hand like the fingers are somewhat numb but they are not actually numb. She denies any weakness. She has not dropped anything. She says she just can't explain exactly when it occurs but it is periodic at times and then sometimes it stays there for prolonged periods. The patient is somewhat concerned about it and she is not sure how to deal with it. She wonders if the fall in July has something to do with it. Her low back pain is also very localized and she denies any radiation. No shooting pain or sudden pain in her lower extremities that causes her to fall. 2. The patient has been a smoker for 20+ years and currently is anticipating quitting. She says thistime she wants to quit for sure and she is looking for some help with quitting. She wonders if I could give her medication that would make her quit. She has not definitely set a date but she says sometime this month she would like to quit. She says she could shoot for Saenz's Day or her anniversary which is the . She knows it is time she took that step. 3. The third concern is her lack of sleep. The patient said she has always had problems with sleep but recently it has been more. She tried her friend's Ambien and slept like a baby so she wonders if she could take that. She says she has difficulties sleeping because when she lies down thoughts go through her mind. She says it not mild blowing thoughts but is silly thoughts that she can't seem to getrid of and this keeps her up all the time. On closer questioning the patient becomes very tearful easily and is upset. She says there is some stress with her not taking care of himself especially his health and can't get him to come to see a physician. She does admit to depressed mood at timesand some hopelessness. She has had some weight loss, the predominant symptom being insomnia, some fatigue, some difficulty with concentration and not being able to accomplish things. She says it is somewhat ironic I am asking about it because her was going to build her a green house but he told her the way she is going on where she cannot complete tasks he is almost afraid to do something for her and got her thinking. She says she feels anxious at times but she can't really predict what would make her feel that way. She just notes that periodically she is a little anxious. Patient Active Problem List Diagnoses Code HYPOTHYROIDISM NOS 244.9 TOBACCO USE DISORDER 305.1 GENERALIZED ANXIETY DIS 300.02 DEPRESSIVE DISORDER NEC 311 BENIGN HYPERTENSION 401.1 CARPAL TUNNEL SYNDROME 354.0 CERVICALGIA 723.1 DISC DISPLACEMENT NOS 722.2 HEADACHE 784.0 Current outpatient prescriptions Medication Sig TYLENOL/CODEINE #3 300-30 MG OR TABS ONE TO TWO TABLETS EVERY 4 TO 6 HOURS NEEDED FOR PAIN FLEXERIL 10 MG OR TABS ONE 3 TIMES DAILY CHANTIX STARTING MONTH JENNIFER 0.5 MG X [...] CAPSULE DAILY MULTI-DAY/CALCIUM/EXTRA IRON OR None Entered Allergies: Allergies Allergen Reactions Latex rash, hives History Social History Marital Status: Spouse Name: denis Number of Children: 1 Years of Education: N/A Occupational History Not on file. Social History Main Topics Tobacco Use: Yes -- 1.0 packs/day for 20 years 1 pack per day Alcohol Use: Yes social--6 beers/week Drug Use: No Sexually Active: Yes -- Male partner(s) menopausal-decreased libido Other Topics Concern Not on file Social History Narrative No narrative on file OBJECTIVE:BP 130/82 Pulse 72 Temp (Src) 97.4 (Temporal) Wt 146 lbs 3.2 oz (66.3kg) LMP Postmenopausal General Appearance: healthy, alert, active and no distress Neck: Supple, no cervical adenopathy, no thyromegaly, Full range of motion in all planes, no carotidbruits. Heart: regular rate and rhythm with normal S1, S2 ; no murmur, rub or gallops Lungs: clear to auscultation Abdomen: Soft, nontender. Normal bowel sounds. No hepatosplenomegaly or abnormal masses Extremities: no peripheral edema, peripheral pulses normal, feet normal, good pulses, normal color, temperature and sensation Musculoskeletal: Back with normal ROM. Motor strength intact., Neurological: Cranial nerves 2-12 intact, motor strength intact, reflexes normal, Romberg negative, sensation intact, normal gait Psych: Patient appears stated age. Is resting [...] Denies any current suicidal or homicidal ideation. ASSESSMENT: Lumbosacral Degenerative Disc Disease and Cervical Radiculopathy TOBACCO USE DISORDER GENERALIZED ANXIETY DIS DEPRESSIVE DISORDER NEC RECOMMENDATION: 1. Regarding her cervical pain, possible cervical radiculopathy and no back pain. I told we will start her on an antispasmotic, mainly Flexeril and Tylenol #3 to help control the pain. I told her she should start taking the Flexeril twice a day and then if necessary increase it to three times a day. I told her when she takes either Tylenol #3 or the Flexeril she should not drive oroperate heavy machinery because this could make her drowsy. The patient expresses an understanding. The patient is also set for an MRI of her neck to rule out any nerve compression explaining the radiculopathy. Once the results are back I told her we can reassess in two weeks' time and at that time wecan decide if she has radiculopathy, at which point we will do a referral or if it is musculoskeletal then I will refer her to PT for evaluation and treatment. The patient expresses an understanding. 2. Regarding her smoking we discussed about the use of different medications for quitting smoking. The patient has tried Zyban with no results so I told her we would try her on Chantix. Samples of Chantix have been given to her to use to try to quit smoking. I explained how to take it. Again in two weeks when she comes back we will reassess and see where she is with her quitting. The patient expresses an understanding. 3. Anxiety and depression leading to insomnia. I explained to her that treating her with Ambien will not be the solution to her problem. I told herprobably addressing the root cause of her insomnia would be the best. The patient expresses an understanding. We briefly talked about starting medications for it but I told her I am hesitant to start currently any medication because she is already going to be starting three new medications and I wouldrather wait until things settle down before we start her on possibly anxiolytic plus antidepressant combination like Lexapro. The patient expresses an understanding. Total time spent with the patient, 45 minutes. Of that about half the time was spent on counseling and discussing management of cervical radiculopathy, smoking cessation and general anxiety disorder associated with sleep problems. Source: [facility] RWHXTRANSXRTFSYS Document Id: [id number] documented in this encounter Plan of Treatment Upcoming Encounters Date Type Specialty Care Team Description 08/30/2022 Diagnostic Neurology Karin Ramachandran M.D., M.P.H[facility] [address] [phone] (Howie dean) 10/10/2022 Office Visit Neurology Karin Ramachandran M.D., M.P.H[facility] [address] [phone] (Howie dean) documented as of this encounter Visit Diagnoses Not on filedocumented in this encounter
--- OUTSIDE RECORDS SUMMARY | 2022-08-29 10:34 | XMS_ITS | Encounter Summary ---
:1960 Author Organization [facility] Address [address] [place] [address] Care Team Providers Name Role Phone Unavailable Primary Care Provider Unavailable Encounter Details Date Type Department Care Team Description 01/25/2006 Hospital Encounter HX [facility] XRAY Provider, Histori darlin Social History Tobacco Use Types Packs/Day Years Used Date Smoking Tobacco: Never Assessed Sex Assigned at Date Recorded Female 07/10/2022 7:32 AM CDT documented as of this encounter Plan of Treatment Upcoming Encounters Date Type Specialty Care Team Description 08/30/2022 Diagnostic Neurology Karin Ramachandran M.D., M.P.H[facility] [address] [phone] (Howie dean) 10/10/2022 Office Visit Neurology Karin Ramachandran M.D., M.P.H[facility] [address] [phone] (Howie dean) documented as of this encounter Visit Diagnoses Not on filedocumented in this encounter
--- OUTSIDE RECORDS SUMMARY | 2022-08-29 10:34 | XMS_ITS | Encounter Summary ---
:1960 Author Organization [facility] Address [address] [place] [address] Care Team Providers Name Role Phone Unavailable Primary Care Provider Unavailable Encounter Details Date Type Department Care Team Description 03/05/2007 Hospital Encounter HX NO MAPPING Jarrod Persaud M.D. [address] [place] [phone] Social History Tobacco Use Types Packs/Day Years Used Date Smoking Tobacco: Never Assessed Sex Assigned at Date Recorded Female 07/10/2022 7:32 AM CDT documented as of this encounter Plan of Treatment Upcoming Encounters Date Type Specialty Care Team Description 08/30/2022 Diagnostic Neurology Karin Ramachandran M.D., M[facility]P.[facility] [address] [phone] (Wo rk) 10/10/2022 Office Visit Neurology Kairn Ramachandran M.D., M.P.H[facility] [address] [phone] (Wo rk) documented as of this encounter Visit Diagnoses Not on filedocumented in this encounter
--- OUTSIDE RECORDS SUMMARY | 2022-08-29 10:34 | XMS_ITS | Encounter Summary ---
:1960 Author Organization [facility] Address [address] [place] [address] Care Team Providers Name Role Phone Unavailable Primary Care Provider Unavailable Encounter Details Date Type Department Care Team Description 02/06/2007 Hospital Encounter HX [facility] XRAY Provider, Histori darlin Social History Tobacco Use Types Packs/Day Years Used Date Smoking Tobacco: Never Assessed Sex Assigned at Date Recorded Female 07/10/2022 7:32 AM CDT documented as of this encounter Plan of Treatment Upcoming Encounters Date Type Specialty Care Team Description 08/30/2022 Diagnostic Neurology Karin Ramachandran M.D., M[facility]P.[facility] [address] [phone] (Howie dean) 10/10/2022 Office Visit Neurology Karin Ramachandran M.D., M.P.H[facility] [address] [phone] (Howie dean) documented as of this encounter Visit Diagnoses Not on filedocumented in this encounter
--- OUTSIDE RECORDS SUMMARY | 2022-08-29 10:34 | XMS_ITS | Encounter Summary ---
:1960 Author Organization [facility] Address [address] [place] [address] Care Team Providers Name Role Phone Unavailable Primary Care Provider Unavailable Encounter Details Date Type Department Care Team Description 02/06/2007 Hospital Encounter HX NO MAPPING Jarrod Persaud M.D. [address] [place] [phone] Social History Tobacco Use Types Packs/Day Years Used Date Smoking Tobacco: Never Assessed Sex Assigned at Date Recorded Female 07/10/2022 7:32 AM CDT documented as of this encounter Plan of Treatment Upcoming Encounters Date Type Specialty Care Team Description 08/30/2022 Diagnostic Neurology Karin Ramachandran M.D., M.P.H[facility] [address] [phone] (Wo rk) 10/10/2022 Office Visit Neurology Kairn Ramachandran M.D., M.P.H[facility] [address] [phone] (Wo rk) documented as of this encounter Visit Diagnoses Not on filedocumented in this encounter
--- OUTSIDE RECORDS SUMMARY | 2022-08-29 10:34 | XMS_ITS | Encounter Summary ---
:1960 Author Organization [facility] Address [address] [place] [address] Care Team Providers Name Role Phone Unavailable Primary Care Provider Unavailable Encounter Details Date Type Department Care Team Description 11/06/2006 Hospital Encounter HX [facility] INTERNMED Provider, Chapito galloway Social History Tobacco Use Types Packs/Day Years Used Date Smoking Tobacco: Never Assessed Sex Assigned at Date Recorded Female 07/10/2022 7:32 AM CDT documented as of this encounter Progress Notes Conversion, Historical Provider Ser - 11/06/2006 1:30 PM CST [id number] HISTORY & PHYSICAL CC: Chief Complaint Patient presents with URI Historian: Patient HPI: Zandra Lopez is a 46 year old female presents to clinic today to discuss: Symptoms: cough, sore throat Severity: worsening Quality: throat hurts Location: throat Timin weeks Duration: constant Context: Modifying factors: zicam, otc meds havent helped Review of systems: Gen: chills and sweats ENT: able to swallow GI: not much of an appetite Resp: nonproductive, + dyspnea, + tobacco, no asthma PMH: Past Medical History Diagnosis Date CARPAL TUNNEL SYNDROME HYPERTENSION NOS Essential hypertension HYPOTHYROIDISM NOS Hypothyroidism ABSENCE OF MENSTRUATION 2002 Past Surgical History Procedure Date Skeletal procedure date: fracture L humerus Revise median n/carpal tunnel surg 02/23/03 LT ALLERGIES: Allergies Allergen Reactions Latex rash, hives MEDICATION: Current outpatient prescriptions Medication Sig ACTONEL 35 MG OR TABS 1 TABLET [...] SYNTHROID 75 MCG OR TABS one daily FAMILY HISTORY: Family History Problem Relation Allergies [...] Social History Narrative No narrative on file PHYSICAL EXAM: Blood pressure 112/82, pulse 68, temperature 98.1, temperature source Temporal, weight 146 lbs (66.2kg), last menstrual period Postmenopausal. GEN: Well developed, well nourished, well groomed in appearance. EYES: PERRL, EOMI. Anicteric sclerae. ENT: External inspection is normal. Hearing is intact. No otic or nasal discharge. Mucous membranes normal. Oropharynx is unremarkable in appearance. NECK: No lymphadenopathy, no JVD, no thyromegally. Supple. RESP: Wheezing on the right. Not tachypneic. Sat is normal. CARDIAC: Regular rate and rhythm. NEURO: Oriented. Awake and alert. PSYCH: Normal mood and affect. Thought content appropriate. Labs Result Reviewed: CR 0.85 01/18/2006 Imaging Result Reviewed: CXR-negative for infiltrate (Independent review: Y) Tests Result Reviewed: No (Independent review: No) Review & summarization of old records done: Yes, last office visit progress note reviewed. Impression: COUGH ACUTE PHARYNGITIS TOBACCO USE DISORDER Recommendations: 1. Avelox 400mg daily x 10 days 2. Albuterol MDI 2 puffs q4hrs and hs prn 3. Tessalon perles tid prn 4. Acetaminiophen, ibuprofen, cough drops, throat sprays prn 5. Push fluids, rest Return to clinic as needed if any concerns. Case Hauser M.D. Source: [facility] RWHXTRANSXRTFSYS Document Id: [id number] documented in this encounter Plan of Treatment Upcoming Encounters Date Type Specialty Care Team Description 08/30/2022 Diagnostic Neurology Karin Ramachandran M.D., M.P.H[facility] [address] [place], [place] [phone] (Wo rk) 10/10/2022 Office Visit Neurology Karin Ramachandran M.D., M.P.H. [address] [place], [place] [phone] (Wo rk) documented as of this encounter Visit Diagnoses Not on filedocumented in this encounter
--- OUTSIDE RECORDS SUMMARY | 2022-08-29 10:34 | XMS_ITS | Encounter Summary ---
:1960 Author Organization [facility] Address [address] [place] [address] Care Team Providers Name Role Phone Unavailable Primary Care Provider Unavailable Encounter Details Date Type Department Care Team Description 05/05/2004 Hospital Encounter HX [facility] INTERNMED Provider, Chapito galloway Social History Tobacco Use Types Packs/Day Years Used Date Smoking Tobacco: Never Assessed Sex Assigned at Date Recorded Female 07/10/2022 7:32 AM CDT documented as of this encounter Miscellaneous Notes Telephone Encounter - Conversion, Historical Provider Ser - 05/05/2004 12:00 AM CDT [id number] >> BARBARA Willett May 07, 2004 10:08 PM TSH 0.45 04/14/2004 >> ASPEN Benton May 05, 2004 1:08 PM >> CALL RECEIVED. Contact: Accepting this rx will be faxed directly to pharmacy. Thank You! [facility] Document Id: [id number] documented in this encounter Plan of Treatment Upcoming Encounters Date Type Specialty Care Team Description 08/30/2022 Diagnostic Neurology Karin Ramachandran M.D., M.P.H[facility] [address] [place] [phone] (Howie dean) 10/10/2022 Office Visit Neurology Karin Ramachandran M.D., M.P.H[facility] [address] [place] [phone] (Howie dean) documented as of this encounter Visit Diagnoses Not on filedocumented in this encounter
--- OUTSIDE RECORDS SUMMARY | 2022-08-29 10:34 | XMS_ITS | Encounter Summary ---
:1960 Author Organization [facility] Address [address] [place] [address] Care Team Providers Name Role Phone Unavailable Primary Care Provider Unavailable Encounter Details Date Type Department Care Team Description 09/07/2005 Hospital Encounter HX [facility] LAB Provider, Historic al Social History Tobacco Use Types Packs/Day Years Used Date Smoking Tobacco: Never Assessed Sex Assigned at Date Recorded Female 07/10/2022 7:32 AM CDT documented as of this encounter Plan of Treatment Upcoming Encounters Date Type Specialty Care Team Description 08/30/2022 Diagnostic Neurology Karin Ramachandran M.D., M[facility]P.[facility] [address] [phone] (Hoiwe dean) 10/10/2022 Office Visit Neurology Karin Ramachandran M.D., M[facility]P.[facility] [address] [phone] (Howie dean) documented as of this encounter Visit Diagnoses Not on filedocumented in this encounter
--- OUTSIDE RECORDS SUMMARY | 2022-08-29 10:34 | XMS_ITS | Encounter Summary ---
:1960 Author Organization [facility] Address [address] [place] [address] Care Team Providers Name Role Phone Unavailable Primary Care Provider Unavailable Encounter Details Date Type Department Care Team Description 01/16/2007 Hospital Encounter [facility] INTERNMED Shannon Barrett M.D. [address] [facility] [place] [address] (Wo rk) Social History Tobacco Use Types Packs/Day Years Used Date Smoking Tobacco: Never Assessed Sex Assigned at Date Recorded Female 07/10/2022 7:32 AM CDT documented as of this encounter Progress Notes Shannon Barrett M.D. 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 Timing: gradual onset and still present. Recent injury: No. Where occurred: none. Context: none. Previous injury: No. Quality of pain: burning over the L shoulder and proximal half of L arm Severity of pain: moderate and localized. Exacerbated by: lifting Relieved by: rest tried Tylenol#3 and flexeril for pain with minimal to no relief symptomsn.Pain is more localised now Neurologic symptoms: negative for, bowel dysfunction, bladder dysfunction, radiation to forearm, numbness or tingling of hands, local weakness, involuntary movements, incoordination and tremor.Pt notestaht the pain in the L side of neck is better and there is no more spasms.The pain is now constant And ROM at the shoulder is more limited.Pt notes that raising her arms causes crunching in her shoulder joint. Patient's second concern is her depression and anxiety. She says nothing has really changed. She feels a little bit better but she is still not sleeping very well. We had discussed last time to wait until this time to start medication for her depression/anxiety, so she thinks she is ready for it. She says the symptoms are now about the same. They have really not changed. The reviewed the notes from the last time and the symptoms are pretty much the same, so I am not going to repeat that over here. Patient Active Problem List Diagnoses Code HYPOTHYROIDISM NOS 244.9 TOBACCO USE DISORDER 305.1 GENERALIZED ANXIETY DIS 300.02 DEPRESSIVE DISORDER NEC 311 BENIGN HYPERTENSION 401.1 CARPAL TUNNEL SYNDROME 354.0 CERVICALGIA 723.1 DISC DISPLACEMENT NOS 722.2 HEADACHE 784.0 Current outpatient prescriptions Medication Sig AMBIEN 10 MG OR TABS ONE AT BEDTIME, NEEDED LEXAPRO 10 MG OR TABS ONE DAILY CELEBREX 200 MG OR CAPS 1 poqd CHANTIX STARTING MONTH JENNIFER 0.5 MG X [...] CAPSULE DAILY MULTI-DAY/CALCIUM/EXTRA IRON OR None Entered OBJECTIVE:BP 108/70 Pulse 88 Temp (Src) 98 (Temporal) Wt 148 lbs (67.1kg) LMP Postmenopausal General Appearance: healthy, alert, active and no distress Neck: Supple, no cervical adenopathy, no thyromegaly, Full range of motion in all planes Heart: regular rate and rhythm with normal S1, S2 ; no murmur, rub or gallops Lungs: clear to auscultation Extremities: no peripheral edema, peripheral pulses normal Musculoskeletal: Back with normal ROM. Motor strength intact. 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 Psych: Patient appears stated age. Is resting [...] or homicidal ideation. Labs reviewed with patient: MRI ASSESSMENT: SHOULDER REGION DIS NEC DEPRESSIVE DISORDER NEC GENERALIZED ANXIETY DIS PLAN: 1. For her shoulder pain, I told her we will go ahead and start her on Celebrex 200 mg 2 today followed by one every day for the next 10 days. Also referred her to PT to start range of motions and strengthening and a referral her to orthopedics has been placed for further evaluation and treatment. Patient has very strong limitations in range of movements and I think she might benefit from a steroid shot, so I told her we will go ahead and refer her to orthopedics. Patient is agreeable. I reviewed the MRI in detail with her explained to her that there was no nerve compression that is causing these symptoms, so it predominantly limited to her shoulder. I also explained to her why a shoulder x- ray isnot going to give me any information, but that might be something we need to get later. 2. Regarding depression and anxiety, patient is started on Lexapro 20 mg one p.o. every day. A month's worth of samples have been given to the patient. I recommended she start taking one a day and I also told her it might take about a week to 10 days for her to start noticing changes. Since she does not have much of panic attacks, it's mostly depression and insomnia, I did start her on some Ambien 10mg one p.o. every night for about 10 days till the Lexapro kicks in. I told her after about a week she should try cutting back on the Ambien and seeing if she is able to sleep by herself. Patient expresses an understanding. Source: [facility] Document Id: [id number] Electronically signed by Gabriela [facility] 5Th Grade Teacher [id number] at 04/29/2017 10:52 AM CDT documented in this encounter Plan of Treatment Upcoming Encounters Date Type Specialty Care Team Description 08/30/2022 Diagnostic Neurology Karin Ramachandran M.D., M.P.H. [address] [place] [phone] (Wo rk) 10/10/2022 Office Visit Neurology Karin Ramachandran M.D., M.P.H. [address] [phone] (Wo rk) documented as of this encounter Visit Diagnoses Not on filedocumented in this encounter
--- OUTSIDE RECORDS SUMMARY | 2022-08-29 10:34 | XMS_ITS | Encounter Summary ---
:1960 Author Organization [facility] Address [address] [place] [address] Care Team Providers Name Role Phone Unavailable Primary Care Provider Unavailable Encounter Details Date Type Department Care Team Description 02/06/2004 Hospital Encounter HX [facility] Shannon Buitrago M.D. [address] [place] [address] (Howie dean) Social History Tobacco Use Types Packs/Day Years Used Date Smoking Tobacco: Never Assessed Sex Assigned at Date Recorded Female 07/10/2022 7:32 AM CDT documented as of this encounter Miscellaneous Notes Telephone Encounter - Conversion, Historical Provider Ser - 02/06/2004 12:00 AM CST [id number] >> SHANNON Willett Feb 06, 2004 2:58 PM >> CALL RECEIVED. Contact: Source: [facility] Document Id: [id number] documented in this encounter Plan of Treatment Upcoming Encounters Date Type Specialty Care Team Description 08/30/2022 Diagnostic Neurology Karin Ramachandran M.D., M.P.H. [address] [place], [place] [phone] (Wo rk) 10/10/2022 Office Visit Neurology Karin Ramachandran M.D., M.P.H. [address] [place], [place] [phone] (Howie dean) documented as of this encounter Visit Diagnoses Not on filedocumented in this encounter
--- OUTSIDE RECORDS SUMMARY | 2022-08-29 10:34 | XMS_ITS | Encounter Summary ---
:1960 Author Organization [facility] Address [address] [place] [address] Care Team Providers Name Role Phone Unavailable Primary Care Provider Unavailable Encounter Details Date Type Department Care Team Description 04/09/[address] [facility] Shannon Buitrago M.D. [address] [place] [address] (Wo dianne) Social History Tobacco Use Types Packs/Day Years Used Date Smoking Tobacco: Never Assessed Sex Assigned at Date Recorded Female 07/10/2022 7:32 AM CDT documented as of this encounter Miscellaneous Notes Telephone Encounter - Joseph Kendrick, TheresePEvansN. - 04/09/2006 12:00 AM CDT [id number] Pt. Calling and wanting rx for the new quit smoking drug she does not know the name, but would like it faxed to [facility] in [place], if any questions plz call [phone] Source: [facility] Document Id: [id number] Electronically signed by Gabriela [facility] Archives Specialist [id number] at 04/29/2017 3:12 PM CDT documented in this encounter Plan of Treatment Upcoming Encounters Date Type Specialty Care Team Description 08/30/2022 Diagnostic Neurology Karin Ramachandran M.D., M.P.H. [address] [place] [phone] (Wo rk) 10/10/2022 Office Visit Neurology Karin Ramachandran M.D., M.P.H. [address] [place], [place] [phone] (Wo rk) documented as of this encounter Visit Diagnoses Not on filedocumented in this encounter
--- OUTSIDE RECORDS SUMMARY | 2022-08-29 10:34 | XMS_ITS | Encounter Summary ---
:1960 Author Organization [facility] Address [address] [place] [address] Care Team Providers Name Role Phone Unavailable Primary Care Provider Unavailable Encounter Details Date Type Department Care Team Description 03/10/2007 Hospital Encounter HX NO MAPPING Provider, Historical Social History Tobacco Use Types Packs/Day Years Used Date Smoking Tobacco: Never Assessed Sex Assigned at Date Recorded Female 07/10/2022 7:32 AM CDT documented as of this encounter Plan of Treatment Upcoming Encounters Date Type Specialty Care Team Description 08/30/2022 Diagnostic Neurology Karin Ramachandran M.D., M.P.H. [address] [phone] (Howie rk) 10/10/2022 Office Visit Neurology Karin Ramachandran M.D., M.P.H. [address] [place] [phone] (Wo rk) documented as of this encounter Visit Diagnoses Not on filedocumented in this encounter
--- OUTSIDE RECORDS SUMMARY | 2022-08-29 10:34 | XMS_ITS | Encounter Summary ---
:1960 Author Organization [facility] Address [address] [place] [address] Care Team Providers Name Role Phone Unavailable Primary Care Provider Unavailable Encounter Details Date Type Department Care Team Description 08/10/2005 Hospital Encounter HX [facility] Shannon Buitrago M.D. [address] [place] [address] (Howie dean) Social History Tobacco Use Types Packs/Day Years Used Date Smoking Tobacco: Never Assessed Sex Assigned at Date Recorded Female 07/10/2022 7:32 AM CDT documented as of this encounter Miscellaneous Notes Telephone Encounter - Conversion, Historical Provider Ser - 08/10/2005 12:00 AM CDT [id number] Diabetes Labs: No results found for this basename: A1C:1 LDL 96 11/16/2002 TSH 1.11 11/07/2004 patient called was out of meds was to be refilled with her bp meds and was missed called in one month to [facility] patient was told last tsh was 2003 and she was coming due for one would let her know on refills Thanks Source: [facility] Document Id: [id number] documented in this encounter Plan of Treatment Upcoming Encounters Date Type Specialty Care Team Description 08/30/2022 Diagnostic Neurology Karin Ramachandran M.D., M.P.H. [address] [place], [place] [phone] (Wo rk) 10/10/2022 Office Visit Neurology Karin Ramachandran M.D., M.P.H. [address] [phone] (Wo rk) documented as of this encounter Visit Diagnoses Not on filedocumented in this encounter
--- OUTSIDE RECORDS SUMMARY | 2022-08-29 10:34 | XMS_ITS | Encounter Summary ---
:1960 Author Organization [facility] Address [address] [place] [address] Care Team Providers Name Role Phone Unavailable Primary Care Provider Unavailable Encounter Details Date Type Department Care Team Description 03/10/2007 Hospital Encounter HX NO MAPPING Jarrod Persaud M.D. [address] [place] [phone] Social History Tobacco Use Types Packs/Day Years Used Date Smoking Tobacco: Never Assessed Sex Assigned at Date Recorded Female 07/10/2022 7:32 AM CDT documented as of this encounter Plan of Treatment Upcoming Encounters Date Type Specialty Care Team Description 08/30/2022 Diagnostic Neurology Karin Ramachandran M.D., M.P.H[facility] [address] [phone] (Wo rk) 10/10/2022 Office Visit Neurology Karin Ramachandran M.D., M.P.H. [address] [phone] (Wo rk) documented as of this encounter Visit Diagnoses Not on filedocumented in this encounter
--- OUTSIDE RECORDS SUMMARY | 2022-08-29 10:35 | XMS_ITS | Encounter Summary ---
:1960 Author Organization [facility] Address [address] [place] [address] Care Team Providers Name Role Phone Unavailable Primary Care Provider Unavailable Encounter Details Date Type Department Care Team Description 12/25/2002 Hospital Encounter HX [facility] UROLOGY Provider, Farideh adams Social History Tobacco Use Types Packs/Day Years Used Date Smoking Tobacco: Never Assessed Sex Assigned at Date Recorded Female 07/10/2022 7:32 AM CDT documented as of this encounter Miscellaneous Notes Telephone Encounter - Conversion, Historical Provider Ser - 12/25/2002 12:00 AM CST [id number] Addended by: PASCUAL DOWNEY on: 12/25/2002,3:09 PMModules accepted: Progress Notes>>PASCUAL SMITH Fri Dec 25, 2002 10:00 AM>> CALL RECEIVED. Contact: She was given a perscription for percocet #40, 1po q 3 hours, prn, by Dr. Persaud. Source: [facility] Document Id: [id number] documented in this encounter Plan of Treatment Upcoming Encounters Date Type Specialty Care Team Description 08/30/2022 Diagnostic Neurology Karin Ramachandran M.D., M.P.H. [address] [place] [phone] (Howie dean) 10/10/2022 Office Visit Neurology Karin Ramachandran M.D., M.P.H. [address] [place] [phone] (Wo rk) documented as of this encounter Visit Diagnoses Not on filedocumented in this encounter
--- OUTSIDE RECORDS SUMMARY | 2022-08-29 10:35 | XMS_ITS | Encounter Summary ---
:1960 Author Organization [facility] Address [address] [place] [address] Care Team Providers Name Role Phone Unavailable Primary Care Provider Unavailable Encounter Details Date Type Department Care Team Description 02/09/2003 Hospital Encounter HX [facility] RWZU Carrillo Charles M.D. [address] [place], [place] [address] Social History Tobacco Use Types Packs/Day Years Used Date Smoking Tobacco: Never Assessed Sex Assigned at Date Recorded Female 07/10/2022 7:32 AM CDT documented as of this encounter Progress Notes Conversion, Historical Provider Ser - 02/09/2003 9:00 AM CST [id number] Addended by: ODALIS GARCIA on: 02/12/2003,3:59 PM Comment: TranscriptionModules accepted: Everardo rodriguez NotesSUBJECTIVE: Zandra's neck has improved a great deal and she has been able to disconti nue the use of her home traction unit and no longer requires medication for pain in the neck. She st ill however has symptoms about the left hand and wrist with complaints of numbness and tingling, nigh t time awakening and also some discomfort and pain over the ulna that may relate to an old distal rad ius fracture. OBJECTIVE: On examination, the patient again displays a positive Phalen's test in a median nerve distribution. She has tenderness over what is a fairly prominent distal ulna and a new x-ray of the wrist today was obtained. It shows a healed distal radius fracture with somewhat slight shortening. Perhaps she is 1 or 2 mm ulnar positive variance. I think she also has a loss of radia l inclination and the result is that she has developed a small cyst in the head of the ulna I think i ndicating some ulno carpal overload. This however, would not be something new. In fact, she has bee n living with this for about 5 years.OBJECTIVE: Overall, my impression is that we need to get a ne rve compression test of her upper extremities to rule in or rule out carpal tunnel syndrome once and for all. If it is positive, we would very likely recommend a left carpal tunnel release. I am a abhinav le more inclined to go slowly with the left wrist ulnocarpal impingement but the possibility surgical ly there would be an ulnar shortening or some form of excision of the ulnar head. 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 RWMCHXTRANSXSYS Document Id: [id number] documented in this encounter Plan of Treatment Upcoming Encounters Date Type Specialty Care Team Description 08/30/2022 Diagnostic Neurology Karin Ramachandran M.D., M.P.H. [address] [phone] (Wo dianne) 10/10/2022 Office Visit Neurology Karin Ramachandran M.D., M.P.H. [address] [place] [phone] (Wo dianne) documented as of this encounter Visit Diagnoses Not on filedocumented in this encounter
--- OUTSIDE RECORDS SUMMARY | 2022-08-29 10:35 | XMS_ITS | Encounter Summary ---
:1960 Author Organization [facility] Address [address] [place] [address] Care Team Providers Name Role Phone Unavailable Primary Care Provider Unavailable Encounter Details Date Type Department Care Team Description 02/09/2003 Hospital Encounter [facility]X [facility] Provider, Pr laverne Social History Tobacco Use Types Packs/Day Years Used Date Smoking Tobacco: Never Assessed Sex Assigned at Date Recorded Female 07/10/2022 7:32 AM CDT documented as of this encounter Progress Notes Conversion, Historical Provider Ser - 02/09/2003 8:00 AM CST [id number] Here for 3 reasons: 1) L. wrist. Fractured it 5-6 years ago. It was in a cast, and refractured it. It was rebroken, and reset. Since then, has had problems in the medial aspect of the wrist, and late ly, it has got to the point that she can't use it much, ie even to dust furniture. she is R. handed. Also, all the fingers are tingling, and the L. index finger is chronically numb. Would like to see ortho.2) Wanted to tell me that she has gained 9 lbs in past month, she attributes that to the depo shot. She took that years ago, and had weight gain then. wanted me to set up appt with Dr. Palomo for her to have vas, end of March. She does not want any more depo.3) BP Has no side effects to the drug, and it is holding it good so far.A: Wrist pain, following injury several years ago. Wt. gain on depo provera HTN, controlled at present.P: Appt set up for her husb for vas, end of ay. She will see Dr. Persaud later this AM for her wrist. Source: [facility] Document Id: [id number] documented in this encounter Plan of Treatment Upcoming Encounters Date Type Specialty Care Team Description 08/30/2022 Diagnostic Neurology Karin Ramachandran M.D., M.P.H. [address] [phone] (Wo rk) 10/10/2022 Office Visit Neurology Karin Ramachandran M.D., M.P.H. [address] [phone] (Wo rk) documented as of this encounter Visit Diagnoses Not on filedocumented in this encounter
--- OUTSIDE RECORDS SUMMARY | 2022-08-29 10:35 | XMS_ITS | Encounter Summary ---
:1960 Author Organization [facility] Address [address] [place] [address] Care Team Providers Name Role Phone Unavailable Primary Care Provider Unavailable Encounter Details Date Type Department Care Team Description 12/23/2002 Hospital Encounter HX [facility] Mike Herrera L, R.N. [address] (Wo rk) Social History Tobacco Use Types Packs/Day Years Used Date Smoking Tobacco: Never Assessed Sex Assigned at Date Recorded Female 07/10/2022 7:32 AM CDT documented as of this encounter Miscellaneous Notes Telephone Encounter - Conversion, Historical Provider Ser - 12/23/2002 12:00 AM CST [id number] >> JASMIN TAFOYA [facility] Dec 24, 2002 9:58 AM I called her, and she may stop here tomorrow after her P.T. appt. RR >> CRUZ DICKERSON [facility] Dec 24, 2002 9:48 AM I did speak to Zandra, she is at [phone]/and would appreciate you calling her back this morning sometime. >> JASMIN TAFOYA [facility] Dec 24, 2002 8:33 AM I called, and a telephone message from a Mikala came on. Please check the number.RR >> ZANDRA WHITFIELD SatDec 23, 2002 4:57 PM tc returned to patient explaining dr not available this pm. pt is extremely uncomfortable. says marcio din not working. is not able to get into PT until saturday of this week. has not gotten a cerivcal col lar yet. encouraged pt to continue advil and vicodin as it may be helping somewhat even if she is n ot noticing any difference. avoid heavy lifting, sleep with neck well supported. also suggeste she c ould make a homemade cerical collar using a bathtowel with an with an marychuy to secure it t o provide support and restrict motion. would like you to call [phone]. pharmacy is [facility] in [place]. >> GHAZALA HOOD SatDec 23, 2002 2:47 PM >> CALL RECEIVED. Contact: pt/ leo pt has questions about pain meds. [phone] Source: [facility] Document Id: [id number] documented in this encounter Plan of Treatment Upcoming Encounters Date Type Specialty Care Team Description 08/30/2022 Diagnostic Neurology Karin Ramachandran M.D., M.P.H. [address] [phone] (Howie dean) 10/10/2022 Office Visit Neurology Karin Ramachandran M.D., M.P.H. [address] [place] [phone] (Howie dean) documented as of this encounter Visit Diagnoses Not on filedocumented in this encounter
--- OUTSIDE RECORDS SUMMARY | 2022-08-29 10:35 | XMS_ITS | Encounter Summary ---
:[address] [facility] Address [address] [place] [address] Care Team Providers Name Role Phone Unavailable Primary Care Provider Unavailable Encounter Details Date Type Department Care Team Description 02/11/2003 Hospital Encounter [facility] INTERNMED Provider, Chapito galloway Social History Tobacco Use Types Packs/Day Years Used Date Smoking Tobacco: Never Assessed Sex Assigned at Date Recorded Female 07/10/2022 7:32 AM CDT documented as of this encounter Plan of Treatment Upcoming Encounters Date Type Specialty Care Team Description 08/30/2022 Diagnostic Neurology Karin Ramachandran M.D., M.P.H[facility] [address] [phone] (Howie dean) 10/10/2022 Office Visit Neurology Karin Ramachandran M.D., M.P.H[facility] [address] [phone] (Howie dean) documented as of this encounter Visit Diagnoses Not on filedocumented in this encounter
--- OUTSIDE RECORDS SUMMARY | 2022-08-29 10:35 | XMS_ITS | Encounter Summary ---
:1960 Author Organization [facility] Address [address] [place] [address] Care Team Providers Name Role Phone Unavailable Primary Care Provider Unavailable Encounter Details Date Type Department Care Team Description 04/06/2003 Hospital Encounter HX [facility] Carrillo Charles M.D. [address] [place], [place] [address] Social History Tobacco Use Types Packs/Day Years Used Date Smoking Tobacco: Never Assessed Sex Assigned at Date Recorded Female 07/10/2022 7:32 AM CDT documented as of this encounter Progress Notes Conversion, Historical Provider Ser - 04/06/2003 3:30 PM CDT [id number] Addended by: IZZY DRAKE on: 04/07/2003,3:27 PM Comment: transcriptionModules accepted: Everarod rodriguez Shaina is about 6 or 8 weeks out from her left carpal tunnel release and very pleased with the results. She no longer has numbness and tingling, no longer does she have weakness or achin g. The incision has healed nicely and she has full motion. She is considering having her right carp al tunnel taken care of, but not until after summer. She still has a little bit of aching on the ulna r side of the left wrist from a previous distal radius fracture, but again that is something long ter m and fairly mild. More concerning to her and to me at this point is the story that when she moves her neck in certain directions she will not only get crunching and aching in the back of the neck, b ut a dizzy feeling. A quick examination showed near full ROM with the exception of extension. We know from previous MRI scans of the C-spine that she has multi-level disc disease and some foraminal narrowing. I did, however, get the sense that she had a positive Romberg's test, her extra ocular mo tions are intact and I don't think there is any real long track signs. Nevertheless, there is the possibility of basilar artery insufficiency and I want to have a neurologist check her over for that possibility. We are arranging for a neurology appointment for that purpose.With regards to her andrea ds, I would wait to hear from her regarding the need for anything further and can see her back again in orthopedics on a PRN basis. Carrillo Persaud M.D./mpD: 04/06/2003T: 04/07/2003 Source: [facility] RWHXTRANSXSYS Document Id: [id number] documented in this encounter Plan of Treatment Upcoming Encounters Date Type Specialty Care Team Description 08/30/2022 Diagnostic Neurology Karin Ramachandran M.D., M.P.H. [address] [phone] (Howie dean) 10/10/2022 Office Visit Neurology Karin Ramachandran M.D., M.P.H. [address] [place] [phone] (Howie dean) documented as of this encounter Visit Diagnoses Not on filedocumented in this encounter
--- OUTSIDE RECORDS SUMMARY | 2022-08-29 10:35 | XMS_ITS | Encounter Summary ---
:1960 Author Organization [facility] Address [address] [place] [address] Care Team Providers Name Role Phone Unavailable Primary Care Provider Unavailable Encounter Details Date Type Department Care Team Description 05/27/2003 Hospital Encounter HX [facility] Stephanie Scott Jr., D.O. [address] [place] (Wo rk) Social History Tobacco Use Types Packs/Day Years Used Date Smoking Tobacco: Never Assessed Sex Assigned at Date Recorded Female 07/10/2022 7:32 AM CDT documented as of this encounter Progress Notes Conversion, Historical Provider Ser - 05/27/2003 8:30 AM CDT [id number] Addended by: BRUNA NELSON on: 05/31/2003,4:05 PM Comment: Bindery Helper.Modules accepted: Surya esqueda NotesThe patient is here for evaluation of a scalp wound. She states that there was a puncture wound in the occipital scalp on May 03. She states it was closed with a Dermabond glue and she was kept overnight in the hospital. Approximately a week ago, she states her girlfriend noticed loss of hair in this area and an open wound while swimming and she then came into the clinic and was placed on Keflex. She states that she was not aware of any infection. Inspection of the wound reveals an approximate 3 to 4 centimeter wound over the mid upper occipital scalp. The wound margins are open to approximately 1 centimeter along their entire length and there is a halo of hair missing from arou nd the perimeter. The patient also shows a small baggy with a large amount of hair in the bag. The central portion of the wound reveals a gelatinous-like material with a crust over the top, but there is no local cellulitis or oozing from the wound. The patient does state she has a latex allergy. IMPRESSION: Open wound of the scalp with foreign body reaction. PLAN: Because of the perimeter of h air loss and potential allergic reaction, the patient is being referred to Dermatology at [facility] or definitive wound care. She was informed that my concern was that we could surgically remove the a frankie of open wound and close the wound but with the area of hair loss along the perimeter of the wound , I am concerned that this needs to be addressed so that there is no further hair loss and speciality help would be sought to help with definitive care here. This patient agrees with this plan. Benji Scott Jr., D.O./Debi: 05/27/2003T: 05/31/2003 Source: [facility] RWHXTRANSXSYS Document Id: [id number] documented in this encounter Plan of Treatment Upcoming Encounters Date Type Specialty Care Team Description 08/30/2022 Diagnostic Neurology Karin Ramachandran M.D., M.P.H. [address] [phone] (Howie dean) 10/10/2022 Office Visit Neurology Karin Ramachandran M.D., M.P.H. [address] [place] [phone] (Howie dean) documented as of this encounter Visit Diagnoses Not on filedocumented in this encounter
--- OUTSIDE RECORDS SUMMARY | 2022-08-29 10:35 | XMS_ITS | Encounter Summary ---
:1960 Author Organization [facility] Address [address] [place] [address] Care Team Providers Name Role Phone Unavailable Primary Care Provider Unavailable Encounter Details Date Type Department Care Team Description 01/19/2003 [facility] Carrillo Charles M.D. [address] [place], [place] [address] Social History Tobacco Use Types Packs/Day Years Used Date Smoking Tobacco: Never Assessed Sex Assigned at Date Recorded Female 07/10/2022 7:32 AM CDT documented as of this encounter Progress Notes Conversion, Historical Provider Ser - 01/19/2003 2:00 PM CST [id number] Addended by: CONY WADSWORTH on: 01/22/2003,12:11 PM Comment: TranscriptionModules accepted: Gita spain NotesUndVladimir fernandez is about a month out from her neck injury. She has impro romie but she still has occasional numbness and tingling in her left hand. Examining today show a po sitive phalanx test on the left and a medium distribution subjective symptoms of numbness and tinglin g. She, in fact, relates that about 7 or 8 years ago she underwent a nerve conduction test that neil wed mild carpal tunnel. Again, on examination of her neck, she has some discomfort on extension and lateral tilt or turning to the left. These positions, however, do not reproduce pain down the left a rm. My best guess, having looked at her MRI scan, is that she had some preexisting mild degenerative disc disease, perhaps some mild almost subclinical carpal tunnel and that now, what she is dealing w [facility], is a cervical sprain and she's developed some signs and symptoms of a double crush phenomenon. I don't think that either condition is necessarily severe enough to recommend surgery so I've recom mended that she continue at this time with conservative care. She's got a home traction unit from [facility] and is doing appropriate cervical exercises and being supervised by the therapy depart ment. I have added to that today by giving her samples of Celebrex and a new prescription of Percoce t, which I advised her to use very sparingly. I would like to see her about a month from now to muna knowles her progress. Carrillo Persaud M.D./Rain: 01/19/2003T: 01/22/2003 Source: [facility] RWHXTRANSXSYS Document Id: [id number] documented in this encounter Plan of Treatment Upcoming Encounters Date Type Specialty Care Team Description 08/30/2022 Diagnostic Neurology Karin Ramachandran M.D., M.P.H. [address] [phone] (Howie dean) 10/10/2022 Office Visit Neurology Karin Ramachandran M.D., M.P.H. [address] [phone] (Howie dean) documented as of this encounter Visit Diagnoses Not on filedocumented in this encounter
--- OUTSIDE RECORDS SUMMARY | 2022-08-29 10:35 | XMS_ITS | Encounter Summary ---
:1960 Author Organization [facility] Address [address] [place] [address] Care Team Providers Name Role Phone Unavailable Primary Care Provider Unavailable Encounter Details Date Type Department Care Team Description 02/17/2003 Hospital Encounter [facility]X [facility] Carrillo Charles M.D. [address] [place], [place] [address] Social History Tobacco Use Types Packs/Day Years Used Date Smoking Tobacco: Never Assessed Sex Assigned at Date Recorded Female 07/10/2022 7:32 AM CDT documented as of this encounter Plan of Treatment Upcoming Encounters Date Type Specialty Care Team Description 08/30/2022 Diagnostic Neurology Karin Ramachandran M.D., M.P.H[facility] [address] [phone] (Howie dean) 10/10/2022 Office Visit Neurology Karin Ramachandran M.D., M.P.H. [address] [phone] (Howie rk) documented as of this encounter Visit Diagnoses Not on filedocumented in this encounter
--- OUTSIDE RECORDS SUMMARY | 2022-08-29 10:35 | XMS_ITS | Encounter Summary ---
:1960 Author Organization [facility] Address [address] [place] [address] Care Team Providers Name Role Phone Unavailable Primary Care Provider Unavailable Encounter Details Date Type Department Care Team Description 02/23/2003 Hospital Encounter HX NO MAPPING Provider, Historical Social History Tobacco Use Types Packs/Day Years Used Date Smoking Tobacco: Never Assessed Sex Assigned at Date Recorded Female 07/10/2022 7:32 AM CDT documented as of this encounter Plan of Treatment Upcoming Encounters Date Type Specialty Care Team Description 08/30/2022 Diagnostic Neurology Karin Ramachandran M.D., M.P.H. [address] [phone] (Howie rk) 10/10/2022 Office Visit Neurology Karin Ramachandran M.D., M.P.H. [address] [place] [phone] (Wo rk) documented as of this encounter Visit Diagnoses Not on filedocumented in this encounter
--- OUTSIDE RECORDS SUMMARY | 2022-08-29 10:35 | XMS_ITS | Encounter Summary ---
:1960 Author Organization [facility] Address [address] [place] [address] Care Team Providers Name Role Phone Unavailable Primary Care Provider Unavailable Encounter Details Date Type Department Care Team Description 12/16/2002 Hospital Encounter HX NO MAPPING Jarrod Persaud M.D. [address] [place] [address] Social History Tobacco Use Types Packs/Day Years Used Date Smoking Tobacco: Never Assessed Sex Assigned at Date Recorded Female 07/10/2022 7:32 AM CDT documented as of this encounter Plan of Treatment Upcoming Encounters Date Type Specialty Care Team Description 08/30/2022 Diagnostic Neurology Karin Ramachandran M.D., M.P.H. [address] [phone] (Wo rk) 10/10/2022 Office Visit Neurology Karin Ramachandran M.D., M.P.H. [address] [phone] (Wo rk) documented as of this encounter Visit Diagnoses Not on filedocumented in this encounter
--- OUTSIDE RECORDS SUMMARY | 2022-08-29 10:35 | XMS_ITS | Encounter Summary ---
:1960 Author Organization [facility] Address [address] [place] [address] Care Team Providers Name Role Phone Unavailable Primary Care Provider Unavailable Encounter Details Date Type Department Care Team Description 12/22/2002 Hospital Encounter HX [facility] Mike Herrera L, R.NEvans [address] [place], [place] [address] (Howie dean) Social History Tobacco Use Types Packs/Day Years Used Date Smoking Tobacco: Never Assessed Sex Assigned at Date Recorded Female 07/10/2022 7:32 AM CDT documented as of this encounter Miscellaneous Notes Telephone Encounter - Conversion, Historical Provider Ser - 12/22/2002 12:00 AM CST [id number] >> JASMIN Mckenna Dec 22, 2002 4:20 PM I called, and will send to P.T. RR >> GHAZALA Mckenna Dec 22, 2002 2:53 PM phone number [phone] >> GHAZALA Mckenna Dec 22, 2002 2:28 PM >> CALL RECEIVED. Contact: pt/ leo pt would like you to call her with mri results. [phone] [facility] Document Id: [id number] documented in this encounter Plan of Treatment Upcoming Encounters Date Type Specialty Care Team Description 08/30/2022 Diagnostic Neurology Karin Ramachandran M.D., M.P.H. [address] [place], [place] [phone] (Wo rk) 10/10/2022 Office Visit Neurology Karin Ramachandran M.D., M.P.H. [address] [phone] (Wo rk) documented as of this encounter Visit Diagnoses Not on filedocumented in this encounter
--- OUTSIDE RECORDS SUMMARY | 2022-08-29 10:35 | XMS_ITS | Encounter Summary ---
:1960 Author Organization [facility] Address [address] [place] [address] Care Team Providers Name Role Phone Unavailable Primary Care Provider Unavailable Encounter Details Date Type Department Care Team Description 01/01/2003 Hospital Encounter HX [facility] Provider, Chapito galloway Social History Tobacco Use Types Packs/Day Years Used Date Smoking Tobacco: Never Assessed Sex Assigned at Date Recorded Female 07/10/2022 7:32 AM CDT documented as of this encounter Miscellaneous Notes Telephone Encounter - Conversion, Historical Provider Ser - 01/01/2003 12:00 AM CST [id number] >> ADRIANE Benton Jan 01, 2003 1:17 PM >> CALL RECEIVED. Contact: I called Christiane, [phone], left message that I had talked to Dr. Owen, re options for BC. Dr. Owen listed: micronor, tubal, IUD, (has 2 kinds of IUD available) and diaphragm. I asked that she call m e back on 01/04 Source: [facility] BILOXIHXTRANSXSYS Document Id: [id number] documented in this encounter Plan of Treatment Upcoming Encounters Date Type Specialty Care Team Description 08/30/2022 Diagnostic Neurology Karin Ramachandran M.D., M.P.H. [address] [place] [phone] (Wo rk) 10/10/2022 Office Visit Neurology Karin Ramachandran M.D., M.P.H[facility] [address] [place] [phone] (Wo rk) documented as of this encounter Visit Diagnoses Not on filedocumented in this encounter
--- OUTSIDE RECORDS SUMMARY | 2022-08-29 10:35 | XMS_ITS | Encounter Summary ---
:1960 Author Organization [facility] Address [address] [place] [address] Care Team Providers Name Role Phone Unavailable Primary Care Provider Unavailable Encounter Details Date Type Department Care Team Description 05/20/2003 Hospital Encounter [facility]X [facility] Elvie Mac M.D. [address] [facility] [place] [address] (Wo rk) Social History Tobacco Use Types Packs/Day Years Used Date Smoking Tobacco: Never Assessed Sex Assigned at Date Recorded Female 07/10/2022 7:32 AM CDT documented as of this encounter Progress Notes Conversion, Historical Provider Ser - 05/20/2003 9:00 AM CDT [id number] Addended by: ODALIS GARCIA on: 05/24/2003,12:37 PMModules accepted: Order SummaryAddended by: ODALIS GARCIA on: 05/24/2003,12:36 PM Comment: TranscriptionModules accepted: Progress Notes HISTORY OF PRESENT ILLNESS: Ms. Lopez is a 42 y/o lady referred by Dr. Persaud for evaluation of intermittent dizziness. The patient however gives a slightly different history. She states that since last winter whenever she turns her head usually to the right but also sometimes to the left, sh e experiences some visual changes. She then feels like she is about to faint. The symptoms go away q uickly. She does not really experience any vertigo with this. She has been evaluated by Dr. Kris hernandez for a numbness in both hands and she was found to have carpal tunnel syndrome bilaterally. She had decompression of the left with resolution of her symptoms but she still has occasional paresthesias in the right hand. She has an upcoming decompression of the right hand as well. She did have an EMG which also showed some chronic denervation changes in the C6-7 distribution bilaterally. She does barraza ve a mild broad disc herniation at that level by MRI of the cervical spine. She also has degenerativ e disc disease throughout the cervical spine and straightening of the normal curvature of the cervica l spine. She has had some neck pain with this and she notices that she gets these episodes more freq uently when her neck is stiff. She has not felt that Physical Therapy has been helpful at all with t he particular episodes of visual changes. She also has noticed increased occipital headaches in the last several months. These are pressure like and are daily. At the same time however, she uses a co nsiderable amount of anti-inflammatories taking up to 2,400 mg of ibuprofen every day. She also drink s a pot of coffee and smokes a pack of cigarettes a day. She did have a chest x- ray last winter whic h showed old granulomatous disease bilaterally. There was no evidence of a cervical rib. She does n ot think that using the arms has anything to do with her dizzy spells. PAST MEDICAL HISTORY: She has a past medical history of carpal tunnel syndrome, degenerative disease of the lumbar spine, hypot hyroidism, hypertension, and a recent head injury with scalp laceration. In fact, she has some drain age from there and I looked at it today, and it looks like she may be developing a small area of infe ction. She has a previous history of fracture of the left humerus.SOCIAL HISTORY: She smokes on e pack of cigarettes a day. She does drink alcohol socially. She is and has 1 child. FAMI LY HISTORY: She has a family history of arthritis, environmental allergies, cancer, cardiac disease, hypertension and stroke. MEDICATIONS: She was receiving Vicodin earlier but not any more. She is now on ibuprofen, Paxil, Synthroid and Adalat. She does have a history of generalized anxiety and depressive disorder.REVIEW OF SYSTEMS: Is otherwise entirely unremarkable.ALLERGIES: She is al lergic to LATEX.OBJECTIVE: Vitals - BP 122/70, HR 80 and regular, T 97.7 F. Weight 146 lb. She is alert, oriented x 3 with normal attention, concentration, language, memory and fund of knowledge. She is of normal appearance. Visual villafana are full. EOM's are intact. Pupillary response is norm al and symmetric. Fundoscopic examination benign bilaterally. Facial motility and sensation, tongue and palate motility and shoulder shrug are normal and symmetric. She does have somewhat decreased lig ht touch in the right side of the face but this is impersistent and inconsistent. She also has somew hat decreased light touch in the right hand. Vibration sense and joint position sense however are int act. The DTR's are normal and symmetric. There are no Babinski signs. Gjhkao-ggrl-dtzwsl, heel-kne e-davila, rapid alternating motion rate, casual and tandem gait and Romberg test are all WNL. Auscult ation of the heart - reveals regular rate and rhythm with no murmurs or gallops.Auscultation of the great vessels of the neck and upper chest - reveals no bruits.Thoracic outlet maneuvers - negative. IMPRESSION:1. Episodes of visual obscurations with movement of the neck.2. Tension headaches.3. Chronic daily headaches due to analgesic and caffeine rebound.4. Nicotine dependence, probably ag gravating the headache syndrome.5. Carpal tunnel syndrome.6. Cervical spinal disc protrusion with bilateral chronic cervical radiculopathies.The most worrisome symptom that the patient has is of c ourse the episodes of visual changes. The differential diagnosis is quite broad. Craniocervical mireya ction abnormalities such as Arnold Chiari malformation, syringomyelia, or a posterior fossa tumor or poor circulation aneurysm could produce these symptoms. Because these are associated with neck pain, I would question whether the patient may have suffered at some point a vertebral artery dissection an d whether she might actually have a pseudo aneurysm at this point which might be causing these sympto ms. Given the right facial and hand hypesthesia, of course a structural lesion becomes more likely. With a lower cervical root involvement bilaterally and the bilateral carpal tunnel syndrome, one has to consider also the possibility of thoracic outlet syndrome with intermittent subclavian steal pheno carmen although the patient does not necessarily describe any arm activity precipitating the events. Finally, the possibility of a glomus tumor with reflex bradycardia should be considered as well. It is entirely possible the patient's symptoms are related to her degenerative disease of the cervical s pine and might represent what has been described in the literature as muscle spindle vertigo. Howev er, it is because of the visual obscurations and the presyncopal symptomatology that I would like to extend the work up at this point with an MRI of the brain with and without contrast, an MR Angiogram of the great vessels of the neck and an MR Angiogram of the Ute of Ramirez. I will see the patient after completion of this work up for further advice.In the meanwhile, I advised her to stop the us e of ibuprofen, cut back on her smoking and caffeine intake. I think that would be the best thing th at she can do at this point to alleviate her chronic headaches. We will see her again after completi on of the tests described above for further advice.Kwadwo Franklin M.D./Rodrigo: 05/20/2003T: 05/24/2003CC: Dr. Persaud for review.CC: Christie White PA-C for review. [facility] Document Id: [id number] documented in this encounter Plan of Treatment Upcoming Encounters Date Type Specialty Care Team Description 08/30/2022 Diagnostic Neurology Karin Ramachandran M.D., M.P.H[facility] [address] [phone] (Howie dean) 10/10/2022 Office Visit Neurology Karin Ramachandran M.D., M.P.H[facility] [address] [phone] (Howie dean) documented as of this encounter Visit Diagnoses Not on filedocumented in this encounter
--- OUTSIDE RECORDS SUMMARY | 2022-08-29 10:35 | XMS_ITS | Encounter Summary ---
:1960 Author Organization [facility] Address [address] [place] [address] Care Team Providers Name Role Phone Unavailable Primary Care Provider Unavailable Encounter Details Date Type Department Care Team Description 05/21/2003 Hospital Encounter HX NO MAPPING Mike Franklin M.D. [address] [facility] [place] [address] (Wo rk) Social History Tobacco Use Types Packs/Day Years Used Date Smoking Tobacco: Never Assessed Sex Assigned at Date Recorded Female 07/10/2022 7:32 AM CDT documented as of this encounter Plan of Treatment Upcoming Encounters Date Type Specialty Care Team Description 08/30/2022 Diagnostic Neurology Karin Ramachandran M.D., M[facility]P.[facility] [address] [phone] (Wo rk) 10/10/2022 Office Visit Neurology Karin Ramachandran M.D., M.P.H[facility] [address] [place] [phone] (Wo rk) documented as of this encounter Visit Diagnoses Not on filedocumented in this encounter
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
--- OUTSIDE RECORDS SUMMARY | 2022-08-29 10:35 | XMS_ITS | Encounter Summary ---
:1960 Author Organization [facility] Address [address] [place] [address] Care Team Providers Name Role Phone Unavailable Primary Care Provider Unavailable Encounter Details Date Type Department Care Team Description 05/31/2003 Hospital Encounter [facility]X [facility] Elvie Mac M.D. [address] [facility] [place] [address] (Wo rk) Social History Tobacco Use Types Packs/Day Years Used Date Smoking Tobacco: Never Assessed Sex Assigned at Date Recorded Female 07/10/2022 7:32 AM CDT documented as of this encounter Progress Notes Conversion, Historical Provider Ser - 05/31/2003 11:45 AM CDT [id number] Addended by: ODALIS GARCIA on: 06/07/2003,11:01 AM Comment: TranscriptionModules accepted: Kalia hdz Summary, Progress NotesSUBJECTIVE: Ms. Lopez has followed my directions about diminishing her caffeine intake and diminishing the NSAID intake. She feels that her headaches are almost entire ly gone now. She also has not had any further episodes of visual obscuration or presyncopal symptoms with turning of her head. She did have an MRI of the brain which was unremarkable. The MR Angiogram of the [place] of [place] revealed no aneurysms. There were no tumors of the acoustic nerve. The MR A ngiogram of the great vessels of the neck revealed no stenosis in the carotid or vertebral circulatio n. I personally reviewed the above status and I agree with the evaluation of the Radiologist. I r eviewed this status with the patient as well. I explained to her the significance of the findings. I reiterated with her the different diagnosis and precautions that she should take in the future. We talked a little bit about her protruding cervical disc and continued neck pain. We talked about a h ome traction device, heat application and the occasional use of NSAID's and also precautions associat ed with those.At this point, I do not think that any further neurologic work up and/or specific susy atment is necessary. The patient will be discharged back to the care of her primary physician and Dr Evans Persaud. I did advise her that she should contact me or Dr. Persaud if her neck pain continues t o get worse or if she develops any new symptoms. We also talked about her mild carpal tunnel syndrom e which also has not bothered her lately.Total time this consultation: 25 minutes, the entire time being dedicated to patient counseling.Kwadwo Franklin M.D./Rodrigo: 05/31/2003T: 06/07/2003CC : Tonya White PA-C for review.CC: Dr. Persaud for review. Source: [facility] RWHXTRANSXSYS Document Id: [id number] documented in this encounter Plan of Treatment Upcoming Encounters Date Type Specialty Care Team Description 08/30/2022 Diagnostic Neurology Karin Ramachandran M.D., M.P.H. [address] [phone] (Wo rk) 10/10/2022 Office Visit Neurology Karin Ramachandran M.D., M.P.H[facility] [address] [phone] (Wo rk) documented as of this encounter Visit Diagnoses Not on filedocumented in this encounter
--- OUTSIDE RECORDS SUMMARY | 2022-08-29 10:35 | XMS_ITS | Encounter Summary ---
:1960 Author Organization [facility] Address [address] [place] [address] Care Team Providers Name Role Phone Unavailable Primary Care Provider Unavailable Encounter Details Date Type Department Care Team Description 01/12/2003 Hospital Encounter [facility] Provider, Chapito galloway Social History Tobacco Use Types Packs/Day Years Used Date Smoking Tobacco: Never Assessed Sex Assigned at Date Recorded Female 07/10/2022 7:32 AM CDT documented as of this encounter Progress Notes Conversion, Historical Provider Ser - 01/12/2003 8:00 AM CST [id number] Here to talk over contraception. Actually, she and I talked over options the other day, on the phone, and she decided to go with depo. She received a shot today. Lit provided.Also here for BP check. Sh david denies any side effects to the med. BP down nicely today, and her headaches are much improved. She will continue same dosage of adalat.Likes the paxil, and will continue.Takes xanax very infrequent ly. In fact, has not taken it along time.Talked over the social situation. She is going to move [place] with husb., they are working at things. He quit ETOH a month ago. They both want to quit smokin g, and are thinking that in a month's time, they will be emotionally ready. She will return one luke h, for BP. discuss smoking cessation at that time. I advised her to think about the different options of assistance available to her. She is aware of the different ones. She thinks zyban will work, pro bab the patch as well.Objective:Blood pressure 122/84, pulse 88, temperature 95.9, weight 124 lbs (5 6.246 kg), last menstrual period 12/16/2002. The patients general appearance is well nourished well d eveloped without apparent distress. Patient exhibits normal mood, affect, judgment, insight and orien tation during conversation. Eyes with normal lids, conjunctiva, pupils and irises. External ears nose are within normal limits. Normal lips teeth and gums. neck is grossly normal without obvious thyroi d abnormality. Skin is without cyanosis and of normal color. No focal neurological deficits noted on gross inspection. Lungs clear to auscultation and palpation. Respiratory effort is relaxed. heart wit h Regular rate and rhythm. S1 and S2 normal, no murmurs, clicks, gallops or rubs. No edema or JVD. Assessment: Anxiety, depression, much improved with paxil.HTN, so far controlled with adalat. Hypoth yroidism, stable. Tobacco abuse. Contraception management. [facility] Document Id: [id number] documented in this encounter Plan of Treatment Upcoming Encounters Date Type Specialty Care Team Description 08/30/2022 Diagnostic Neurology Karin Ramachandran M.D., M.P.H. [address] [phone] (Howie dean) 10/10/2022 Office Visit Neurology Karin Ramachandran M.D., M.P.H. [address] [place] [phone] (Howie dean) documented as of this encounter Visit Diagnoses Not on filedocumented in this encounter
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
--- OUTSIDE RECORDS SUMMARY | 2022-08-29 10:35 | XMS_ITS | Encounter Summary ---
:1960 Author Organization [facility] Address [address] [place] [address] Care Team Providers Name Role Phone Unavailable Primary Care Provider Unavailable Encounter Details Date Type Department Care Team Description 05/21/2003 Hospital [facility] Provider, Chapito galloway Social History Tobacco Use Types Packs/Day Years Used Date Smoking Tobacco: Never Assessed Sex Assigned at Date Recorded Female 07/10/2022 7:32 AM CDT documented as of this encounter Miscellaneous Notes Telephone Encounter - Conversion, Historical Provider Ser - 05/21/2003 12:00 AM CDT [id number] >> ADRIANE DELGADO Fri May 21, 2003 10:22 AM >> CALL RECEIVED. Contact: She called, saw the neurologist at [facility] yesterday, who felt that the scalp laceration is infected. [facility] Document Id: [id number] documented in this encounter Plan of Treatment Upcoming Encounters Date Type Specialty Care Team Description 08/30/2022 Diagnostic Neurology Karin Ramachandran M.D., M.P.H. [address], [place] [phone] (Wo dianne) 10/10/2022 Office Visit Neurology Karin Ramachandran M.D., M.P.H[facility] [address] [place] [address] [phone] (Howie dean) documented as of this encounter Visit Diagnoses Not on filedocumented in this encounter
--- OUTSIDE RECORDS SUMMARY | 2022-08-29 10:35 | XMS_ITS | Encounter Summary ---
:1960 Author Organization [facility] Address [address] [place] [address] Care Team Providers Name Role Phone Unavailable Primary Care Provider Unavailable Encounter Details Date Type Department Care Team Description 03/09/[address] [facility] Carrillo Charles M.D. 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 She no longer awakens from sleep at night because of t he left hand. She no longer is having tingling in the median distribution and even a lot of her arm aching and up into the elbow and shoulder area has improved as well. Her incision is healing well. Today sutures were removed and Steri-Strips were not needed because it's already 2 weeks. I am sen ding her for a scar pad because she does involve her hand with heavy gripping activities, and we are sending her for a scar pad to protect the incision.The patient also mentioned a similar condition on the right hand. She has a positive Phalen's test there on the right side within about 15 seconds and states that she awakens from sleep because of that hand now. I told her that if she wishes, we c ould proceed with a right carpal tunnel a couple of weeks from now when she has had a little more lu e to recover from the left. If that is what she'd like to do, she just needs to give us a phone call . I will plan on seeing her again postop for the left hand about 3 weeks from now. Jarrod Persaud M.D./rvD: 03/09/2003T: 03/12/2003 Source: [facility] RWHXTRANSXSYS Document Id: [id number] documented in this encounter Plan of Treatment Upcoming Encounters Date Type Specialty Care Team Description 08/30/2022 Diagnostic Neurology Karin Ramachandran M.D., M.P.H[facility] [address] [phone] (Wo rk) 10/10/2022 Office Visit Neurology Karin Ramachandran M.D., M.P.H[facility] [address] [phone] (Wo rk) documented as of this encounter Visit Diagnoses Not on filedocumented in this encounter
--- OUTSIDE RECORDS SUMMARY | 2022-08-29 10:35 | XMS_ITS | Encounter Summary ---
:1960 Author Organization [facility] Address [address] [place] [address] Care Team Providers Name Role Phone Unavailable Primary Care Provider Unavailable Encounter Details Date Type Department Care Team Description 04/06/2003 Hospital Encounter HX [facility] Carrillo Charles M.D. [address] [place], [place] [address] Social History Tobacco Use Types Packs/Day Years Used Date Smoking Tobacco: Never Assessed Sex Assigned at Date Recorded Female 07/10/2022 7:32 AM CDT documented as of this encounter Progress Notes Conversion, Historical Provider Ser - 04/06/2003 12:00 AM CDT [id number] A user error has taken place: encounter opened in error, closed for administrative reasons. Source: [facility] Document Id: [id number] documented in this encounter Plan of Treatment Upcoming Encounters Date Type Specialty Care Team Description 08/30/2022 Diagnostic Neurology Karin Ramachandran M.D., M.P.H[facility] [address] [place] [phone] (Wo rk) 10/10/2022 Office Visit Neurology Karin Ramachandran M.D., M.P.H[facility] [address] [place] [phone] (Wo dianne) documented as of this encounter Visit Diagnoses Not on filedocumented in this encounter
--- OUTSIDE RECORDS SUMMARY | 2022-08-29 10:36 | XMS_ITS | Encounter Summary ---
:1960 Author Organization [facility] Address [address] [place] [address] Care Team Providers Name Role Phone Unavailable Primary Care Provider Unavailable Encounter Details Date Type Department Care Team Description 08/29/2001 Hospital Encounter HX NO MAPPING Provider, Historical Social History Tobacco Use Types Packs/Day Years Used Date Smoking Tobacco: Never Assessed Sex Assigned at Date Recorded Female 07/10/2022 7:32 AM CDT documented as of this encounter Plan of Treatment Upcoming Encounters Date Type Specialty Care Team Description 08/30/2022 Diagnostic Neurology Karin Ramachandran M.D., M[facility]P.[facility] [address] [phone] (Howie rk) 10/10/2022 Office Visit Neurology Karin Ramachandran M.D., M.P.H[facility] [address] [place] [phone] (Wo rk) documented as of this encounter Visit Diagnoses Not on filedocumented in this encounter
--- OUTSIDE RECORDS SUMMARY | 2022-08-29 10:36 | XMS_ITS | Encounter Summary ---
:1960 Author Organization [facility] Address [address] [place] [address] Care Team Providers Name Role Phone Unavailable Primary Care Provider Unavailable Encounter Details Date Type Department Care Team Description 11/10/2002 Hospital Encounter [facility] Social History Tobacco Use Types Packs/Day Years Used Date Smoking Tobacco: Never Assessed Sex Assigned at Date Recorded Female 07/10/2022 7:32 AM CDT documented as of this encounter Plan of Treatment Upcoming Encounters Date Type Specialty Care Team Description 08/30/2022 Diagnostic Neurology Karin Ramachandran M.D., [facility] [address] [phone] (Howie dean) 10/10/2022 Office Visit Neurology Karin Ramachandran M.D., M[facility] [address] [phone] (Howie dean) documented as of this encounter Visit Diagnoses Not on filedocumented in this encounter
--- OUTSIDE RECORDS SUMMARY | 2022-08-29 10:36 | XMS_ITS | Encounter Summary ---
:1960 Author Organization [facility] Address [address] [place] [address] Care Team Providers Name Role Phone Unavailable Primary Care Provider Unavailable Encounter Details Date Type Department Care Team Description 11/30/2002 Hospital [facility] Provider, Chapito galloway Social History Tobacco Use Types Packs/Day Years Used Date Smoking Tobacco: Never Assessed Sex Assigned at Date Recorded Female 07/10/2022 7:32 AM CDT documented as of this encounter Miscellaneous Notes Telephone Encounter - Conversion, Historical Provider Ser - 11/30/2002 12:00 AM CST [id number] >> ADRIANE DELGADO Mon Nov 30, 2002 12:51 PM A user error has taken place: encounter opened in error, closed for administrative reasons. >> ADRIANE DELGADO [facility] Nov 30, 2002 12:50 PM >> CALL RECEIVED. Contact: [facility] Document Id: [id number] documented in this encounter Plan of Treatment Upcoming Encounters Date Type Specialty Care Team Description 08/30/2022 Diagnostic Neurology Karin Ramachandran M.D., M.P.[facility] [address], [place] [phone] (Howie dean) 10/10/2022 Office Visit Neurology Karin Ramachandran M.D., [facility] [address] [place] [phone] (Howie dean) documented as of this encounter Visit Diagnoses Not on filedocumented in this encounter
--- OUTSIDE RECORDS SUMMARY | 2022-08-29 10:36 | XMS_ITS | Encounter Summary ---
:1960 Author Organization [facility] Address [address] [place] [address] Care Team Providers Name Role Phone Unavailable Primary Care Provider Unavailable Encounter Details Date Type Department Care Team Description 12/15/2002 Hospital Encounter HX [facility] Carrillo Charles M.D. [address] [place], [place] [address] Social History Tobacco Use Types Packs/Day Years Used Date Smoking Tobacco: Never Assessed Sex Assigned at Date Recorded Female 07/10/2022 7:32 AM CDT documented as of this encounter Progress Notes Conversion, Historical Provider Ser - 12/15/2002 9:45 AM CST [id number] Addended by: IZZY DRAKE on: 12/21/2002,7:26 AM Comment: transcriptionModules accepted: Everardo rodriguez NotesAddended by: CARRILLO TAFOYA on: 12/15/2002,11:48 AMModules accepted: Order SummaryBa lesly Dixon is a 42-y/o lady who presents with a one or two week history of pain in the l eft arm. This pain began a couple of weeks ago and intensified when she was recently in the [facility] and doing some head stands. She has complaints of pain that radiate from her neck and shoulder reg ion down into the axilla and in her arm and all the way down into her left hand with a numb and tingl ing feeling in the middle and ring fingers of that hand. She feels as if she may have lost a little business objects strength, although she is right handed and she finds that the pain is present pretty much night and day and particularly bad if she extends the cervical spine. EXAMINATION:The patient has limit ation in cervical motion particularly with extension. I would estimate there to be about 5 degrees o f extension possible. In a cervical extended position, she has increasing symtoms into the left hand and arm. Cervical flexion is near normal, but that also produces some symptoms. When she combines c ervical extension with left rotation and left lateral bending, there is significant increase in sympt oms and pain on the left side of her neck. On exam of the upper extremities, she displays some dim inished sensation in a C7 distribution primarily. Her deep tendon reflexes are symmetric at the shae ps, but are slightly asymmetric at the triceps with the right being 2+ and the left being 1+ and her strength is perhaps just a little less in the left hand with business objects not being quite as strong as the ri ght and wrist extension not being quite as strong as well. I grade her strength, however, at a good m inus 5/5. IMPRESSION:The patient is showing some signs and symptoms consistent with a left C7 rad iculopathy. PLAN:Will get an MRI scan of the C-spine and in the meantime, I have prescribed for h er Medrol Dosepak and Vicodin. I will call the patient with the results of the scan and depending on that, as well as her response to the medication, will either proceed along a conservative route with physical therapy, exercises, traction, cervical collar, etc., or will consider a referral to a neuro -surgeon. Carrillo Tafoya MD/mpD: 12/15/02T: 12/17/02 Source: [facility] RWHXTRANSXSYS Document Id: [id number] documented in this encounter Plan of Treatment Upcoming Encounters Date Type Specialty Care Team Description 08/30/2022 Diagnostic Neurology Karin Ramachandran M.D., M.P.H. [address] [place] [phone] (Howie dean) 10/10/2022 Office Visit Neurology Karin Ramachandran M.D., M.P.H[facility] [address] [place] [phone] (Howie dean) documented as of this encounter Visit Diagnoses Not on filedocumented in this encounter
--- OUTSIDE RECORDS SUMMARY | 2022-08-29 10:36 | XMS_ITS | Encounter Summary ---
:1960 Author Organization [facility] Address [address] [place] [address] Care Team Providers Name Role Phone Unavailable Primary Care Provider Unavailable Encounter Details Date Type Department Care Team Description 11/03/2001 Hospital En[facility] Provider, Chapito galloway Social History Tobacco Use Types Packs/Day Years Used Date Smoking Tobacco: Never Assessed Sex Assigned at Date Recorded Female 07/10/2022 7:32 AM CDT documented as of this encounter Miscellaneous Notes Telephone Encounter - Conversion, Historical Provider Ser - 11/03/2001 12:00 AM CST [id number] >> LAMBERTO DOWNEY SatMay 11, 2002 3:58 PM discussed with jadiel matos. >> ADRIANE DELGADO SatNov 10, 2001 4:31 PM talk to me about this plz >> LAMBERTO DOWNEY SatNov 07, 2001 1:42 PM I called Christiane and she thought a mistake was made-refilled called on her synthroid. >> ADRIANE DELGADO SatNov 04, 2001 11:23 AM I refilled her synthroid for one year, on 09-10. talk to me about this. >> LAMBERTO DOWNEY SatNov 03, 2001 4:29 PM >> CALL RECEIVED. Contact: uses Levoxyl and called to [phone]. NN Source: [facility] RWHXTRANSXSYS Document Id: [id number] documented in this encounter Plan of Treatment Upcoming Encounters Date Type Specialty Care Team Description 08/30/2022 Diagnostic Neurology Karin Ramachandran M.D., M.P.H. [address] [place], [place] [phone] (Wo rk) 10/10/2022 Office Visit Neurology Karin Ramachandran M.D., M.P.H. [address] [phone] (Wo rk) documented as of this encounter Visit Diagnoses Not on filedocumented in this encounter
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
--- OUTSIDE RECORDS SUMMARY | 2022-08-29 10:36 | XMS_ITS | Encounter Summary ---
:1960 Author Organization [facility] Address [address] [place] [address] Care Team Providers Name Role Phone Unavailable Primary Care Provider Unavailable Encounter Details Date Type Department Care Team Description 12/15/2002 Hospital Encounter [facility]X [facility] Provider, Chapito galloway Social History Tobacco Use Types Packs/Day Years Used Date Smoking Tobacco: Never Assessed Sex Assigned at Date Recorded Female 07/10/2022 7:32 AM CDT documented as of this encounter Progress Notes Conversion, Historical Provider Ser - 12/15/2002 8:20 AM CST [id number] Here for reports:HTN: I am starting her on Adalat cc [address] Barrett started her on thi s 11/25, but Christiane misunderstood, and only took it for one month. She can't recall side effects.Lipids , kidney, liver, urine, TSH, CXR, FSH, PAP, glucose, all are normal.L. arm pain. Has been aching, b urning, has had this for a long time. Was told at [place] she has a disc problem. I referred her to Dr. Persaud today for this.Tobacco: still is not ready to quit.Periods: are irregular. She wants some thing for contraception. Has latex allergy. Has done the depo in the past, gained wt on it, but is wi lling to do it again, if that is the recommendation. Is a smoker, and is over 40. Has used no control lately, except interruptus, and she wants something else. I will get Dr. Owen's recommenda tion. Meds: Lately has used xanax bid, but is laid off now, and when he is around the house , she is more nervous, and thinks she needs it tid. I explained this drug is one we want to take the least possible, she understands. Likes the Paxil. I will refill these two, and her synthroid, and or gianni adalat.Plan: I will call her with Dr. Owen recommendation, and see her back one mo for BP.20 min spent, all in counseling. Source: [facility] RWHXTRANSXSYS Document Id: [id number] documented in this encounter Plan of Treatment Upcoming Encounters Date Type Specialty Care Team Description 08/30/2022 Diagnostic Neurology Karin Ramachandran M.D., M.P.H. [address] [phone] ( rk) 10/10/2022 Office Visit Neurology Karin Ramachandran M.D., M.P.H. [address] [phone] (Wo rk) documented as of this encounter Visit Diagnoses Not on filedocumented in this encounter
--- OUTSIDE RECORDS SUMMARY | 2022-08-29 10:36 | XMS_ITS | Encounter Summary ---
:1960 Author Organization [facility] Address [address] [place] [address] Care Team Providers Name Role Phone Unavailable Primary Care Provider Unavailable Encounter Details Date Type Department Care Team Description 10/28/2001 Hospital [facility] Provider, Chapito galloway Social History Tobacco Use Types Packs/Day Years Used Date Smoking Tobacco: Never Assessed Sex Assigned at Date Recorded Female 07/10/2022 7:32 AM CDT documented as of this encounter Miscellaneous Notes Miscellaneous - Conversion, Historical Provider Ser - 10/28/2001 12:00 AM LOSS PREVENTION REPRESENTATIVE [id number] Zandra Lopez [id number] [address] [id number] MR# [id number] October 28, 2001 Dear Zandra Lopez, It has come to my attention that you were unable to get your Mammogram screening/test performed. Please call our clinic at to re- schedule this test at your convenience. Preventative screening/test such as this helps insure your health for years to come and helps us to manage your health concerns in a more timely manner. If you have and questions or concerns regarding this screening/test please call also so that they can be addressed. Sincerely, Anjelica White PA-C [facility] Source: [facility] Document Id: [id number] documented in this encounter Plan of Treatment Upcoming Encounters Date Type Specialty Care Team Description 08/30/2022 Diagnostic Neurology Karin Ramachandran M.D., M.P.H. [address] [place], [place] [phone] (Wo rk) 10/10/2022 Office Visit Neurology Karin Ramachandran M.D., M.P.H. [address] [place], [place] [phone] (Wo rk) documented as of this encounter Visit Diagnoses Not on filedocumented in this encounter
--- OUTSIDE RECORDS SUMMARY | 2022-08-29 10:36 | XMS_ITS | Encounter Summary ---
:1960 Author Organization [facility] Address [address] [place] [address] Care Team Providers Name Role Phone Unavailable Primary Care Provider Unavailable Encounter Details Date Type Department Care Team Description 09/10/2001 Hospital Encounter [facility]X [facility] Provider, Chapito galloway Social History Tobacco Use Types Packs/Day Years Used Date Smoking Tobacco: Never Assessed Sex Assigned at Date Recorded Female 07/10/2022 7:32 AM CDT documented as of this encounter Progress Notes Conversion, Historical Provider Ser - 09/10/2001 12:00 AM CDT [id number] Zandra [id number] LIZETH STOLL [id number]/17/2001De quentin Zandra,I hope things are going well. Your pap was normal. Your urine check was normal. The h emoglobin, which is the iron content in your blood, was normal. The thyroid screen was normal. I wi ll refill the thyroid for one year now, without changing the dosage.I wish you the BEST luck in dixie tting smoking. I know you can do it! If your outside clinic BP's remain a little on the high side, I would like to know about that, so we can act on it. Otherwise, we will see you in 2 mo or less, an d draw a sample to determine status of hormones.Sincerely,KALEY Jaime- [facility] Source: [facility] Document Id: [id number] documented in this encounter Plan of Treatment Upcoming Encounters Date Type Specialty Care Team Description 08/30/2022 Diagnostic Neurology Karin Ramachandran M.D., M.P.H. [address] [phone] (Howie dean) 10/10/2022 Office Visit Neurology Karin Ramachandran M.D., M.P.H[facility] [address] [phone] (Howie dean) documented as of this encounter Visit Diagnoses Not on filedocumented in this encounter
--- OUTSIDE RECORDS SUMMARY | 2022-08-29 10:36 | XMS_ITS | Encounter Summary ---
:1960 Author Organization [facility] Address [address] [place] [address] Care Team Providers Name Role Phone Unavailable Primary Care Provider Unavailable Encounter Details Date Type Department Care Team Description 11/11/2002 Hospital Encounter HX NO MAPPING Fady Parsons M.D. [address] [place] [address] Social History Tobacco Use Types Packs/Day Years Used Date Smoking Tobacco: Never Assessed Sex Assigned at Date Recorded Female 07/10/2022 7:32 AM CDT documented as of this encounter Plan of Treatment Upcoming Encounters Date Type Specialty Care Team Description 08/30/2022 Diagnostic Neurology Karin Ramachandran M.D., M[facility]P.[facility] [address] [place] [phone] (Howie dean) 10/10/2022 Office Visit Neurology Karin Ramachandran M.D., M[facility]P.[facility] [address] [place] [phone] (Howie dean) documented as of this encounter Visit Diagnoses Not on filedocumented in this encounter
--- OUTSIDE RECORDS SUMMARY | 2022-08-29 10:36 | XMS_ITS | Encounter Summary ---
:1960 Author Organization [facility] Address [address] [place] [address] Care Team Providers Name Role Phone Unavailable Primary Care Provider Unavailable Encounter Details Date Type Department Care Team Description 11/10/2002 Hospital Encounter [facility] Provider, Chapito galloway Social History Tobacco Use Types Packs/Day Years Used Date Smoking Tobacco: Never Assessed Sex Assigned at Date Recorded Female 07/10/2022 7:32 AM CDT documented as of this encounter Miscellaneous Notes Telephone Encounter - Conversion, Historical Provider Ser - 11/10/2002 12:00 AM CST [id number] >> ADRIANE DELGADO Bala Nov 10, 2002 1:00 PM >> CALL RECEIVED. Contact: She called, having marital problems, is all worked up, with nerves and depression. Cries alot. Den ies wanting to hurt self or others. I gave her xanax 15 mo ago, says it did not calm her down. She is coming in fasting on . For now, started her on xanax .5, and paxil CR 25. Will do fasting e xam on . [facility] Document Id: [id number] documented in this encounter Plan of Treatment Upcoming Encounters Date Type Specialty Care Team Description 08/30/2022 Diagnostic Neurology Karin Ramachandran M.D., M.P.[facility] [address] [place], [place] [phone] (Wo rk) 10/10/2022 Office Visit Neurology Karin Ramachandran M.D., M.P.H. [address] [place], [place] [phone] (Wo rk) documented as of this encounter Visit Diagnoses Not on filedocumented in this encounter
[2022-08-29 13:37] LABS: Albumin* 4.2 g/dL (3.3-5.0)
[2022-08-29 13:38] LABS: Chloride* 95 mmol/L (96-114); Sodium* 128 mmol/L (135-149)
[2022-08-29 13:40] LABS: Alkaline Phosphatase* 101 U/L (40-150); Aspartate Amino Transferase* 24 U/L (12-35); Bilirubin Total* 0.3 mg/dL (0.1-1.5); Blood Urea Nitrogen* 7 mg/dL (7-30); Carbon Dioxide* 26 mmol/L (20-32); Cholesterol* 186 mg/dL (90-199); Creatinine* 0.4 mg/dL (0.5-1.5); Estimated Glomerular Filt Rate 112 ml/min; Glucose* 111 mg/dL (60-115); Total Protein* 6.8 g/dL (6.0-8.3)
[2022-08-29 13:41] LABS: Alanine Aminotransferase* 10 U/L (4-35); Calcium* 9.9 mg/dL (8.4-10.6); HDL Cholesterol* 47 mg/dL (>=50); LDL Cholesterol Calculated 110 mg/dL (<100); Magnesium* 1.6 mg/dL (1.5-2.6); Triglycerides* 143 mg/dL (40-149)
[2022-08-29 13:42] LABS: TSH With Reflex to FT4* 0.271 uIU/mL (0.270-4.200)
== END 2022-08-29 10:28 | disposition home or self-care (01) ==
PROVIDERS: PCP Family Medicine; Visit Provider Family Medicine
DX: Z01.419 Encounter for gynecological examination (general) (routine) without abnormal findings (principal); E83.42 Hypomagnesemia; E83.51 Hypocalcemia; E87.1 Hypo-osmolality and hyponatremia; E87.6 Hypokalemia; E03.9 Hypothyroidism, unspecified; Z13.6 Encounter for screening for cardiovascular disorders
CPT/HCPCS: 80053; 80061; 83735; 84443

== ENCOUNTER 2022-09-11 09:18 | Outpatient (CLI) | payer BC, SELFPAY ==
--- OUTSIDE RECORDS SUMMARY | 2022-09-11 09:25 | XMS_ITS | Encounter Summary ---
:1960 Author Organization [facility] Address [address] [place] [address] Care Team Providers Name Role Phone Faye Liao M.D. Primary Care Provider Reason for Visit Reason Comments Med Refill Encounter Details Date Type Department Care Team Description 05/30/2018 Refill Department of [facility] Faye Liao M.D. Med Refill Internal Medicine in [place], [address] [place] [address] [employer] [place] [address] [phone] Social History Tobacco Use Types Packs/Day Years [...] Encounters Date Type Specialty Care Team Description 10/10/2022 Office Visit Neurology Karin Ramachandran M.D., M.P.H. [address] [place], [place] [phone] (Wo rk) documented as of this encounter Visit Diagnoses Not on filedocumented in this encounter Additional Health Concerns Assessment Noted Time PHQ-9 Depression Total Score: 6 03/20/2017 1:11 PM CDT documented as of this encounter Care Teams Patrol Deputy Sheriff Relationship Specialty Start Date End Date Faye Liao M.D. PCP - General 05/09/17 01/14/20 [address] [place] [address] documented as of this encounter
--- OUTSIDE RECORDS SUMMARY | 2022-09-11 09:25 | XMS_ITS | Encounter Summary ---
:1960 Author Organization [facility] Address [address] [place] [address] Care Team Providers Name Role Phone Faye Liao M.D. Primary Care Provider Reason for Referral Outpatient (Routine) - Closed Specialty Diagnoses / Procedures Referred By Contact Refer red To Contact Diagnoses Alcohol Mild Use Disorder (Abuse) Uncomplicated Faye Liao M.D. [address] [place] [address] Referral ID Status Reason Start Date Expiration Date Visits Requ ested Visits Authorized [id number] Closed 2017 03/04/2018 1 1 Encounter Details Date Type Department Care Team Description 2017 Orders Only Department of Faye Liao, Alcohol [facility] Internal Milly Uncomplicated Medicine in [address] [address] [place], [place] [phone] (Work) [phone] Social History Tobacco Use Types Packs/Day Years Used Date Smoking Tobacco: Every Day Sex Assigned at Date Recorded Female 07/10/2022 7:32 AM CDT documented as of this encounter Plan of Treatment Upcoming Encounters Date Type Specialty Care Team Description 10/10/2022 Office Visit Neurology Karin Ramachandran M.D., M.P.H. [address] [place], [place] [phone] (Wo rk) Scheduled Referrals Name Type Priority Associated Diagnoses Order S [facility] Internal Outpatient Referral Routine Alcohol Abuse E xpected: Medicine office Uncomplicated 02/17/2018 visit (clinic) (Approximate) , Expires: 02/21/2023 documented as of this encounter Visit Diagnoses Diagnosis Alcohol Mild Use Disorder (Abuse) Uncomp licated documented in this encounter Additional Health Concerns Assessment Noted Time PHQ-9 Depression Total Score: 6 03/20/2017 1:11 PM CDT documented as of this encounter Care Teams Cutter Brake Lining Relationship Specialty Start Date End Date Faye Liao M.D. PCP - General 05/09/17 01/14/20 [address] [place] [address] documented as of this encounter
--- OUTSIDE RECORDS SUMMARY | 2022-09-11 09:25 | XMS_ITS | Encounter Summary ---
:[address] [facility] Address [address] [place] [address] Care Team Providers Name Role Phone Elsewhere, Pcp Primary Care Provider Unavailable Reason for Visit Reason Onset Date Comments Outpatient COVID-19 Testing 10/31/2020 Encounter Details Date Type Department Care Team Description 10/31/2020 External Outreach Department of [facility] Jennifer Starks Infection Upper Medicine, [place] Cait Jensen Respiratory (Primary Clinic, in [place], [address] [place], [place] [address] [address] [place], [place] [phone] (Work) [phone] Social History Tobacco Use Types Packs/Day Years Used Date Smoking Tobacco: Heavy Smoker Sex Assigned at Date Recorded Female 07/10/2022 7:32 AM CDT documented as of this encounter Progress Notes Dai Ash L.PEvansN. - 10/31/2020 2:27 PM CST Encounter created for the drive-through COVID-19 testing. HOUSE LOGISTICS COORDINATOR documented in this encounter Plan of Treatment Upcoming Encounters Date Type Specialty Care Team Description 10/10/2022 Office Visit Neurology Karin Ramachandran M.D., M.P.H. [address] [place], [place] [phone] (Wo rk) documented as of this encounter Visit Diagnoses Diagnosis Infection Upper Respiratory - Primary documented in this encounter Additional Health Concerns Infection Onset Date Last Indicated Resolved Time COVID19 Pending 10/31/2020 11/01/2020 11/07/2020 1:16 PM WAREHOUSE LOGISTICS COORDINATOR Assessment Noted Time PHQ-9 Depression Total Score: 6 03/20/2017 1:11 PM CDT documented as of this encounter Care Teams Instructional Support Technician Relationship 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
--- OUTSIDE RECORDS SUMMARY | 2022-09-11 09:25 | XMS_ITS | Encounter Summary ---
:1960 Author Organization [facility] Address [address] [place] [address] Care Team Providers Name Role Phone Elsewhere, Pcp Primary Care Provider Unavailable Reason for Visit Reason Comments Fall Rib Injury Encounter Details Date Type Department Care Team Description 04/28/2021 Emergency [facility] John Farley Fra cture Rib Multiple Emergency Department P.A.-C. Closed Initial Right [address] (Primary Dx) [place] [phone] (Wo rk) Social History Tobacco Use Types Packs/Day Years Used Date Smoking Tobacco: Heavy Smoker Alcohol Use Standard Drinks/Week Comments Yes 0 (1 standard drink = 0.6 oz pure alcoho l) daily Sex Assigned at Date Recorded Female 07/10/2022 [...] being seen at an urgent care in [place] for right sided rib pain that she [...] pain she was evaluated in urgent carein [place] today was found to have multiple rib fractures and other scapular hematoma on exam. She was referred to the [facility] Emergency Department for further evaluation and treatment. [...] rib fractures. She was referred to the [facility] Emergency Department for further evaluation and treatment. [...] rib fractures. Will discuss with Trauma surgery 153 Patient seen by Trauma surgery. She is [...] Visit Neurology Karin Ramachandran M.D., M.P.H. [address] [phone] (Wo rk) documented as [...] in the thoracic and lumbar spine. John HERNANDEZ CT PROCEDURES CT Chest with IV Contrast [...] thoracic and lumbar spine. John Farley P.A.-C. [facility] CT PROCEDURES DX Chest Portable 1 View [...] Rapid, V Symptomatic (04/28/2021 1:11 PM CDT) [facility] Method Time Signature SARS CoV-2, Undetected Undetected 04/28/2021 STMA PCR, Rapid, V 1:38 PM CDT Comment: ----ADDITIONAL INFORMATION---- This RT-PCR test was performed using the Won SARS-CoV-2 and Influenza A/B Reagent assay from [employer], which has received Emergency Use Authori zation(EUA) by the U.S. Food and Drug Administration . Fact sheets for this Emergency Use Autho rization (EUA) assay can be found at the following link s: For Healthcare Providers: https://www.fda.gov/media/542926/downloa d For Patients: https://www.fda.gov/media/825534/downloa d SARS Coronavirus 2, Source, Rapid Swab, Nasopharynx 04/28/2021 1:11 PM CDT STMA Specimen Anatomical Collection Method Collection Time Receive d Time (Source) Location / / Volume Laterality Varies 04/28/2021 1:11 PM 1:11 (Nasopharynx) CDT PM CDT John Farley P.A.-C. LAB MICROBIOLOGY - GENERAL O RDERABLES Performing Organization Address City/State/ZIP Code Phon e Number [facility] - [address] [place] [address] [address] [place] [address] [facility] [address] Type and Screen (with reflex Antibody ID) (04/28/2021 1:03 PM CDT) [facility] Method Time Signature ABORh O Pos Not 04/28/2021 STRM applicable 1:33 PM CDT Antibody Negative Negative 04/28/2021 STRM Screen 1:46 PM CDT Type & Screen 05/01/2021 04/28/2021 STRM Expiration 23:59 1:33 PM CDT Testing [place] DEFAULT 04/28/2021 STRM Location 1:09 PM CDT Specimen Anatomical Collection Method Collection Time Receive d Time (Source) Location / / Volume Laterality Blood (Blood, 04/28/2021 1:03 PM 04/28/20 1:09 Venous) CDT PM CDT John Farley P.A.-C. LAB BLOOD BANK TEST ORDERABL ES Performing Organization Address City/State/ZIP Code Phon e Number [facility] - [address] [place], [place] [address] [facility] [place] [address] [facility] [address] (ABNORMAL) Basic Metabolic Panel (04/28/2021 1:03 [...] CDT eGFR-Black/Afri >90 >=60 04/28/2021 STMA can [place] mL/min/BSA 1:24 PM CDT Comment: ----ADDITIONAL INFORMATION---- [...] Organization Address City/State/ZIP Code Phon e Number [facility] - [address] [place] [address] [facility] [place] [address] [facility] [address] [facility] (ABNORMAL) CBC with Differential, Blood (04/28/2021 1:03 PM CDT) [facility] Method Time Signature Hemoglobin 12.8 11.6 - [...] Organization Address City/State/ZIP Code Phon e Number [facility] - [address] [place], [place] [address] [address] [place] [address] [facility] [address] documented in this encounter Visit Diagnoses Diagnosis [...] shown in CDT. Scheduled Medication Order 04/26/2021 04/27/202104/28/2021 sodium chloride (PF) 0.9 % injection 1-100 [...] D) 1401 (Given - Provider: Joseph Hughes R.N.) 1-200 mL, intravenous, Once in imaging, contrast, [...] documented as of this encounter Care Teams Laborer Starch Factory Relationship 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
--- OUTSIDE RECORDS SUMMARY | 2022-09-11 09:25 | XMS_ITS | Encounter Summary ---
:1960 Author Organization [facility] Address [address] [place] [address] Care Team Providers Name Role Phone Elsewhere, Pcp Primary Care Provider Unavailable Reason for Referral Outpatient (Routine) - Authorized Specialty Diagnoses / Procedures Referred By Contact Refer red To Contact Neurology Karin Ramachandran M.D ., M.P.H. [facility] Region [address] [place] [phone] Referral ID Status Reason Start Date Expiration Date Visits V isits Requested Authorized [id number] Authorized 07/10/2022 07/10/2023 1 1 Outpatient (Routine) - Closed Specialty Diagnoses / Procedures Referred By Contact Refer red To Contact Diagnoses Seizure (HCC) Karin Ramachandran M.D., M.P.H. [facility] Region Procedures EEG [address] [place] [phone] Referral ID Status Reason Start Date Expiration Date Visits Requ ested Visits Authorized [id number] Closed 07/10/2022 07/10/2023 1 1 Reason for Visit Reason Comments Seizures Ref. Dr. Heller Appointment Request (Routine) - Closed Specialty Diagnoses / Procedures Referred By Contact Refer red To Contact Neurology Referral ID Status Reason Start Date Expiration Date Visits Requ ested Visits Authorized [id number] Closed 06/21/2022 06/21/2023 1 Encounter Details Date Type Department Care Team Description 07/10/2022 Comprehensive Visit Department of Karin Ramachandran [facility] (Primary Dx); Neurology in [place], Seizure Recurre nt Nonintractable (HCC); [facility].P.H. Moderate Or Severe Use Disorder (Depende nce) Alcohol Remission (HCC) [place] [address] [facility], [place] [id number] Social History Tobacco Use Types Packs/Day [...] in the past. She was admitted to [place] in 2016 were she is diagnosed with [...] have been seizures one prompted admission to [facility] when the rescue squad was called in [...] the cousin after the 2015 admission in [place]. She has remainedon that as far as anybody knows for her seizures. And in [facility] they draw attention to history of alcohol withdrawal seizures. She saw Dr. Rolando Tiwari and he ordered an EEG in 2019 and that is pasted below and this was normal. CT scan of the head from 04/01/2022 in [facility] reveals moderate bifrontal cortical atrophy with mild chronic white matter changes. After this event in [facility] I am that the cousin describes she was placed on Keppra presently 750 mg p.o. b.i.d.. Other risk factors for seizures include multiple head injuries from falling down when she was drunk.There is no history of epilepsy in the family there is no history of INSPECTOR PAWNSHOP DETAIL infections nor febrile seizures. CT scan of the head reveals nonspecific but per perhaps more prominent atrophy than one would anticipate from 61-year-old. Her a record from [facility] reports an acute seizure on 05/28/2020 and that would be in line with the EEG that was ordered by Dr. Tiwari. I can not elicit a history about that event. She has not have any difficulty with the 750 mg p.o. b.i.d. of levetiracetam and she remained on that with gabapentin. She has refrain from using alcohol since the admission to [facility] in March. From Dr. Soto's note from 2015: Ms. Lopez is a 55-year-old woman with [...] (two) times a day., Disp: , Rfl: tzenceutdpuh-Dv-wboq-minerals tablet, 1 tablet., Disp: , Rfl: omeprazole [...] Latex Rash LATEX - rash, hives Poison [place] Extract Edema Family History Problem Relation Age [...] She is in good spirits CRANIAL NERVES: casing tier II-XII intact and symmetric. I do not [...] that we could discontinue that and consider Malik if she really does need to be [...] Visit Neurology Karin Ramachandran M.D., M.P.H. [address] [phone] (Wo rk) Scheduled Referrals Name Type Priority Associated Diagnoses Order S [facility] Neurology office Outpatient Referral Routine Expe cted: visit (clinic) 10/10/2022 (Approximate), Expires: 10/10/2023 documented as of this encounter Results EEG (08/30/2022 8:52 AM CDT) Specimen (Source) Anatomical Location Collection Method / Collectio n Time Received Time / Laterality Volume Narrative MMODAL - 08/30/2022 1:15 PM CDT CLINICAL INTERPRETATION Normal EEG during wakefulness and sleep. ??No potentially epileptiform activity was present during the recordin g. EEG CLASSIFICATION SPECIAL STUDY - Short-term video EEG. Normal (awake and asleep). EKG channel. EEG REPORT The short-term video EEG recording durin g wakefulness contains no well-developed alpha rhythm ??over the p osterior head regions. ??No abnormal activity occurred with photic stimulatio n. ??Hyperventilation was not performed due to COVID-19. During the recording, the patient fell a sleep spontaneously. ??No abnormal activity occurred during sleep or at the time of arousal. The EKG channel showed a sinus rhythm. Karin Ramachandran M.D., M.P.H. NEUROLOGY ORDERABLES Performing Organization Address City/State/ZIP Code Phon e Number MMODAL MMODAL NA documented in this encounter Visit Diagnoses Diagnosis Seizure (HCC) - Primary Seizure Recurrent Nonintractable (HCC) Moderate Or Severe Use Disorder (Depende nce) Alcohol Remission (HCC) Seizure (HCC) documented in this encounter Additional Health Concerns Assessment Noted Time PHQ-9 Depression Total Score: 6 03/20/2017 1:11 PM CDT documented as of this encounter Care Teams Technical Service Engineer Relationship 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
--- OUTSIDE RECORDS SUMMARY | 2022-09-11 09:25 | XMS_ITS | Encounter Summary ---
:1960 Author Organization [facility] Address [address] [place] [address] Care Team Providers Name Role Phone Faye Liao M.D. Primary Care Provider Reason for Visit Reason Comments Med Refill Encounter Details Date Type Department Care Team Description 04/04/2018 Refill Department [facility] Faye Liao M.D. Med Refill Internal Medicine in [place], [address] [place] [address] [facility] [place] [address] [phone] Social History Tobacco Use Types Packs/Day Years Used Date Smoking Tobacco: Heavy Smoker Sex Assigned at Date Recorded Female 07/10/2022 7:32 AM CDT documented as of this encounter Plan of Treatment Upcoming Encounters Date Type Specialty Care Team Description 10/10/2022 Office Visit Neurology Karin Ramachandran M.D., M.P.H. [address] [phone] ( rk) documented as of this encounter Visit Diagnoses Not on filedocumented in this encounter Additional Health Concerns Assessment Noted Time PHQ-9 Depression Total Score: 6 03/20/2017 1:11 PM CDT documented as of this encounter Care Teams Rcis Relationship Specialty Start Date End Date Faey Liao M.D. PCP - General 05/09/17 01/14/20 [address] [place] [phone] documented as of this encounter
--- OUTSIDE RECORDS SUMMARY | 2022-09-11 09:25 | XMS_ITS | Encounter Summary ---
:1960 Author Organization [facility] Address [address] [place] [address] Care Team Providers Name Role Phone Faye Liao M.D. Primary Care Provider Reason for Visit Reason Comments Med Refill Encounter Details Date Type Department Care Team Description 12/03/2017 Refill Department Critical [facility] Faye Liao M.D. Med Refill Internal Medicine in [place], [address] [place] [address] [facility] [place] [address] [phone] Social History Tobacco Use Types Packs/Day Years Used Date Smoking Tobacco: Every Day Sex Assigned at Date Recorded Female 07/10/2022 7:32 AM CDT documented as of this encounter Plan of Treatment Upcoming Encounters Date Type Specialty Care Team Description 10/10/2022 Office Visit Neurology Karin Ramachandran M.D., M.P.H. [address] [phone] ( rk) documented as of this encounter Visit Diagnoses Not on filedocumented in this encounter Additional Health Concerns Assessment Noted Time PHQ-9 Depression Total Score: 6 03/20/2017 1:11 PM CDT documented as of this encounter Care Teams Lead Qa Analyst Relationship Specialty Start Date End Date Faye Liao M.D. PCP - General 05/09/17 01/14/20 [address] [place] [phone] documented as of this encounter
--- OUTSIDE RECORDS SUMMARY | 2022-09-11 09:25 | XMS_ITS | Encounter Summary ---
:1960 Author Organization [facility] Address [address] [place] [address] Care Team Providers Name Role Phone Faye Liao M.D. Primary Care Provider Encounter Details Date Type Department Care Team Description 09/24/2018 Orders Only [facility] Faye Liao M.D. Internal Medicine in [address] [place] [phone] [place] [address] [phone] Social History Tobacco Use Types Packs/Day Years Used Date Smoking Tobacco: Heavy Smoker Sex Assigned at Date Recorded Female 07/10/2022 7:32 AM CDT documented as of this encounter Plan of Treatment Upcoming Encounters Date Type Specialty Care Team Description 10/10/2022 Office Visit Neurology Karin Ramachandran M.D., M.P.H. [address] [phone] (Wo rk) documented as of this encounter Visit Diagnoses Not on filedocumented in this encounter Additional Health Concerns Assessment Noted Time PHQ-9 Depression Total Score: 6 03/20/2017 1:11 PM CDT documented as of this encounter Care Teams It Data Architect Relationship Specialty Start Date End Date Faye Liao M.D. PCP - General 05/09/17 01/14/[address] [place] [phone] documented as of this encounter
--- OUTSIDE RECORDS SUMMARY | 2022-09-11 09:25 | XMS_ITS | Encounter Summary ---
:1960 Author Organization [facility] Address [address] [place] [address] Care Team Providers Name Role Phone Faye Liao M.D. Primary Care Provider Encounter Details Date Type Department Care Team Description 06/02/2018 Orders Only Department of Faye Liao Hypothyro idism (Primary [facility] M.D. Dx) Medicine in [place], [address] [place] [address] [address] [place] [address] [place], [place] [phone] (Work) [phone] Social History Tobacco Use Types Packs/Day Years Used Date Smoking Tobacco: Heavy Smoker Sex Assigned at Date Recorded Female 07/10/2022 7:32 AM CDT documented as of this encounter Plan of Treatment Upcoming Encounters Date Type Specialty Care Team Description 10/10/2022 Office Visit Neurology Karin Ramachandran M.D., M.P.H. [address] [phone] (Wo rk) documented as of this encounter Visit Diagnoses Diagnosis Hypothyroidism - Primary documented in this encounter Additional Health Concerns Assessment Noted Time PHQ-9 Depression Total Score: 6 03/20/2017 1:11 PM CDT documented as of this encounter Care Teams Fuel Agent Relationship Specialty Start Date End Date Faye Liao M.D. PCP - General 05/09/17 01/14/[address] [place] [phone] documented as of this encounter
--- OUTSIDE RECORDS SUMMARY | 2022-09-11 09:25 | XMS_ITS | Clinical Summary ---
:1960 Author Organization [facility] Address [address] [place] [address] Care Team Providers Name Role Phone Elsewhere, Pcp Primary Care Provider Unavailable Source Comments Patient records contain information from all sites at [facility]. For routine questions regarding patient records, call [phone] during business hours, M-F 8:00 AM - 5:00 PM Central Time. Record requests for emergency care only can be directed to [phone] at any time.[facility] Allergies Active Allergy Reactions Severity Noted Date Comments Latex Rash 04/22/2009 LATEX - rash, h mirta Poison [place] Extract Edema 04/20/2014 Medications Medication Sig Dispensed [...] times a day. 0 05/22/2022 Active ORAL akyrmykddczn-Ss-qes 1 tablet. 0 05/22/2022 Active n-minerals tablet [...] Care Team Description 08/30/2022 Diagnostic Neurology Karin Ramachandran, Seizure (HC C) Amaya., M.P.H. 07/10/2022 Comprehensive Visit Neurology Karin Ramachandran, Seiz ure (HCC) (Primary Dx); Milly, M.P.H. Seizure Recurre nt Nonintractable (HCC); Moderate [...] Visit Neurology Karin Ramachandran M.D., M.P.H. [address] [place] [phone] (Wo rk) Health Maintenance Due Date Last Done Comments [...] Completed 03/26/2017 Zoster Vaccines Completed 10/10/2020, 07/26/2020 Procedures Procedure Name Priority Date/Time Associated Diagnosis Comme nts EEG ROUTINE - AWAKE Routine 08/30/2022 8:52 AM Seizure (HCC) R esults for this AND SLEEP CDT procedure are i n the results section. from Last 3 Months Results EEG (08/30/2022 8:52 AM CDT) Specimen [...] Code Phon e Number MMODAL MMODAL NA from Last 3 Months Insurance Payer Benefit Plan Subscriber ID Effective Phone Address Typ e / Group Dates GERONIMO MELTON [id number] 2018-Pres [phone] [place] [phone] Care Teams Precision Lens Technician Relationship Specialty Start Date End Date Elsewhere, Pcp PCP - General Internal Medicine 01/15/20
--- OUTSIDE RECORDS SUMMARY | 2022-09-11 09:25 | XMS_ITS | Encounter Summary ---
:1960 Author Organization [facility] Address [address] [place] [address] Care Team Providers Name Role Phone Faye Liao M.D. Primary Care Provider Encounter Details Date Type Department Care Team Description 03/18/2018 Orders Only Department of Faye Liao Monitorin g For Therapeutic Drug Therapy (Primary Dx); [facility] Internal MChristiano Hypertension Essential Primary; Medicine in [address] Screening Mammogram Average Risk Patient [place], [place] [address] [address] [place], [place] [phone] [address] (Work) [phone] Social History Tobacco Use Types Packs/Day Years Used Date Smoking Tobacco: Heavy Smoker Sex Assigned at Date Recorded Female 07/10/2022 7:32 AM CDT documented as of this encounter Plan of Treatment Upcoming Encounters Date Type Specialty Care Team Description 10/10/2022 Office Visit Neurology Karin Ramachandran M.D., M.P.H. [address] [place], [place] [phone] (Wo rk) documented as of this encounter Visit Diagnoses Diagnosis Monitoring For Therapeutic Drug Therapy - Primary Hypertension Essential Primary Screening Mammogram Average Risk Patient documented in this encounter Additional Health Concerns Assessment Noted Time PHQ-9 Depression Total Score: 6 03/20/2017 1:11 PM CDT documented as of this encounter Care Teams Water Softener Servicer And Installer Relationship Specialty Start Date End Date Faye Liao M.D. PCP - General 05/09/17 01/14/[address] [place] [phone] documented as of this encounter
--- OUTSIDE RECORDS SUMMARY | 2022-09-11 09:25 | XMS_ITS | Encounter Summary ---
:1960 Author Organization [facility] Address [address] [place] [address] Care Team Providers Name Role Phone Elsewhere, Pcp Primary Care Provider Unavailable Encounter Details Date Type Department Care Team Description 10/29/2020 Clinical Communication Central Appointment Line, Covid Help Office in [place], [place] [address] [place] [address] Social History Tobacco Use Types [...] to be swabbed for COVID-19, sent to [facility] located at [address] You must call [phone] for an appointment time. Testing hours are [...] request for public health , sent to [facility] located at [address] You must call [phone] for an appointment time. Testing hours are [...] and water aren't available, use a hand receipt and report clerk that contains at least 60% alcohol. Avoid [...] since you were tested. Educational Resource: https://www.cdc.gov/coronavirus/2019-ncov/ fhmvjzx-eozjacx-uiiq/index.html Education: Not applicable Patient agreeable to plan of care: Yes The following references were used: [facility] novel coronavirus (COVID- 19) resources ECTIVE CLOTHING ISSUER documented in this encounter Plan of Treatment Upcoming Encounters Date Type Specialty Care Team Description 10/10/2022 Office Visit Neurology Karin Ramachandran M.D., M.P.H. [address] [place], [place] [phone] (Wo rk) documented as of this encounter Visit Diagnoses Not on filedocumented in this encounter Additional Health Concerns Assessment Noted Time PHQ-9 Depression Total Score: 6 03/20/2017 1:11 PM CDT documented as of this encounter Care Teams Juvenile Justice Specialist Relationship 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
--- OUTSIDE RECORDS SUMMARY | 2022-09-11 09:25 | XMS_ITS | Encounter Summary ---
:1960 Author Organization [facility] Address [address] [place] [address] Care Team Providers Name Role Phone Faye Liao M.D. Primary Care Provider Encounter Details Date Type Department Care Team Description 09/02/2019 Orders Only [facility] PCP [facility] Faye Liao, Screening Mammogram Breast Cancer; M.DEvans Monitoring For Therapeutic Drug Therapy [address] [place] [address] Social History Tobacco Use Types Packs/Day Years Used Date Smoking Tobacco: Heavy Smoker Sex Assigned at Date Recorded Female 07/10/2022 7:32 AM CDT documented as of this encounter Plan of Treatment Upcoming Encounters Date Type Specialty Care Team Description 10/10/2022 Office Visit Neurology Karin Ramachandran M.D., M.P.H. [address], [place] [phone] (Wo rk) documented as of this encounter Visit Diagnoses Diagnosis Screening Mammogram Breast Cancer Monitoring For Therapeutic Drug Therapy documented in this encounter Additional Health Concerns Assessment Noted Time PHQ-9 Depression Total Score: 6 03/20/2017 1:11 PM CDT documented as of this encounter Care Teams Cable Installer Repairer Helper Relationship Specialty Start Date End Date Faye Liao M.D. PCP - General 05/09/17 01/14/20 [address] [place] [address] documented as of this encounter
--- OUTSIDE RECORDS SUMMARY | 2022-09-11 09:25 | XMS_ITS | Encounter Summary ---
:1960 Author Organization [facility] Address [address] [place] [address] Care Team Providers Name Role Phone Elsewhere, Pcp Primary Care Provider Unavailable Reason for Visit Outpatient (Routine) - Closed Specialty Diagnoses / Procedures Referred By Contact Refer red To Contact Diagnoses Seizure (HCC) Karin Ramachandran M.D., M.P.H. [facility] Procedures EEG [address] [place] [address] Referral ID Status Reason Start Date Expiration Date Visits Requ ested Visits Authorized [id number] Closed 07/10/2022 07/10/2023 1 1 Encounter Details Date Type Department Care Team Description 08/30/2022 Diagnostic Department of Neurology in Karin Ramachandran, Seizure (HCC) [place], [place] Milly, M.P.H. [address] [place] [address] [place], [place] [phone] [phone] (Howie dean) Social History Tobacco Use Types [...] Neurology Karin Ramachandran M.D., M.P.H. [address] [place], [place] [phone] (Wo rk) documented as of this encounter Procedures Procedure Name Priority Date/Time Associated Diagnosis Comme nts EEG ROUTINE - AWAKE Routine 08/30/2022 8:52 AM Seizure (HCC) R esults for this AND SLEEP CDT procedure are i n the results section. documented in this encounter Results EEG (08/30/2022 8:52 AM [...] this encounter Visit Diagnoses Diagnosis Seizure (HCC) documented in this encounter Additional Health Concerns Assessment Noted Time PHQ-9 Depression Total Score: 6 03/20/2017 1:11 PM CDT documented as of this encounter Care Teams Electronic Device Monitor Relationship 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
--- OUTSIDE RECORDS SUMMARY | 2022-09-11 09:25 | XMS_ITS | Clinical Summary ---
:1960 Author Organization [facility] [place] [address] Care Team Providers Name Role Phone Luann Juarez Primary Care Provider [phone] Allergies Active Allergy Reactions Severity Noted Date Comments Latex 04/22/2009 Poison Seanor Extract Edema 04/20/2014 Medications Medication Sig Dispensed [...] containing 4 or more times a w pechanga 10/20/2019 alcohol? How many drinks containing alcohol [...] Comments Blood Pressure 139/82 10/20/2019 7:49 AM DUST MIXER Pulse 107 10/20/2019 7:49 AM DUST MIXER Temperature 36.7 ??C (98.1 ??F) 10/20/2019 7:49 AM DUST MIXER Respiratory Rate - - Oxygen Saturation 100% 10/20/2019 7:49 AM DUST MIXER Inhaled Oxygen Concentration - - Weight 54.4 kg (120 lb) 10/20/2019 7:49 AM DUST MIXER Height 160 cm (5' 3) 10/20/2019 7:49 AM DUST MIXER Body Mass Index 21.26 10/20/2019 7:49 AM DUST MIXER Plan of Treatment Health Maintenance Due Date [...] history exists COVID-19 vaccine series (4 - 01/16/2022 11/21/2021, 021, Booster for Moderna series) 02/10/2021 [...] Type Group BLUE CROSS BLUE CROSS OF [id number] 2020-[address]iat [address] [facility] [place] [address] Advance Directives Documents on File Type Date Recorded Patient Piecer Up Explanati on Healthcare Directive 12/30/2019 12/30/2019 Care Teams Red Cap Relationship Specialty Start Date End Date Luann Juarez PA PCP - General Physician Buyer Tobacco Head 02/23/19 [facility] [address]
--- OUTSIDE RECORDS SUMMARY | 2022-09-11 09:25 | XMS_ITS | Encounter Summary ---
:1960 Author Organization [facility] Address [address] [place] [address] Care Team Providers Name Role Phone Elsewhere, Pcp Primary Care Provider Unavailable Encounter Details Date Type Department Care Team Description 05/01/2021 Orders Only Division of Trauma Carito Nicholas, [place] re Rib Multiple Critical Care and M.D. Subsequent With Routine General Surgery in [address] [facility] Healing Right (Primary [place], [place] Dx) [address] [facility] [address] [place], [place] [phone] [address] (Work) [phone] Social History Tobacco Use Types Packs/Day Years [...] Visit Neurology Karin Ramachandran M.D., M.P.H. [address] [phone] (Wo rk) documented as of this encounter Visit Diagnoses Diagnosis Fracture Rib Multiple Subsequent With Ro utine Healing Right - Primary documented in this encounter Additional Health Concerns Assessment Noted Time PHQ-9 Depression Total Score: 6 03/20/2017 1:11 PM CDT documented as of this encounter Care Teams Drill Press Set Up Operator Relationship 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
--- OUTSIDE RECORDS SUMMARY | 2022-09-11 09:25 | XMS_ITS | Encounter Summary ---
:[address] [facility] Address [address] [place] [address] Care Team Providers Name Role Phone Faye Liao M.D. Primary Care Provider Reason for Visit Reason Onset Date Comments Med Refill 12/03/2017 Encounter Details Date Type Department Care Team Description 12/03/2017 Clinical Communication Department of Faye Liao, Med Refill [facility] Internal M.Sonia Medicine in [place] [address] [address] [place], [place] [phone] (Work) [phone] Social History Tobacco Use Types Packs/Day Years Used Date Smoking Tobacco: Every Day Sex Assigned at Date Recorded Female 07/10/2022 7:32 AM CDT documented as of this encounter Miscellaneous Notes Telephone Encounter - Kesha Galvan L.PEvansN. - 12/10/2017 4:44 PM HOSIERY MENDER Request went through for gabapentin. Was not able to get a hold of patient to ask if she needed other medications. ERY MENDER Telephone Encounter - Kesha Galvan L.PEvansN. - 12/03/2017 3:20 PM HOSIERY MENDER Call cannot be completed as dialed message comes on when this number is dialed. ERY MENDER Telephone Encounter - Adwoa Alexander - 12/03/2017 8:32 AM CST Patient is calling to let Dr. Liao know that her will be in [place] for a couple of weeks for a bone marrow transplant. Patient needs refills of her Gabapentin, levothyroxine, and her blood pressure medication. Patient is very upset and can't think so she asked if all her medications can be reviewed and fill which ever she needs refills on. Please send to [facility] in [place]. Patient is requesting this be done today. I told patient that I could not guarantee that we will be able to get this filled today as we usually need up to 3 days to process a refill request. Please call patient with any questions and with status of refill. ERY MENDER documented in this encounter Plan of Treatment Upcoming Encounters Date Type Specialty Care Team Description 10/10/2022 Office Visit Neurology Karin Ramachandran M.D., M.P.H. [address] [phone] (Wo rk) documented as of this encounter Visit Diagnoses Not on filedocumented in this encounter Additional Health Concerns Assessment Noted Time PHQ-9 Depression Total Score: 6 03/20/2017 1:11 PM CDT documented as of this encounter Care Teams Leather Scrubber Relationship Specialty Start Date End Date Faye Liao M.D. PCP - General 05/09/17 01/14/20 [address] [place] [address] documented as of this encounter
--- OUTSIDE RECORDS SUMMARY | 2022-09-11 09:25 | XMS_ITS | Encounter Summary ---
:1960 Author Organization [facility] Address [address] [place] [address] Care Team Providers Name Role Phone Faye Liao M.D. Primary Care Provider Reason for Visit Reason Comments Med Refill Encounter Details Date Type Department Care Team Description 05/31/2018 Refill Department [facility] Faye Liao M.D. Med Refill Internal Medicine in [place], [address] [place] [address] [facility] [place] [address] [phone] Social History Tobacco Use Types Packs/Day Years Used Date Smoking Tobacco: Heavy Smoker Sex Assigned at Date Recorded Female 07/10/2022 7:32 AM CDT documented as of this encounter Plan of Treatment Upcoming Encounters Date Type Specialty Care Team Description 10/10/2022 Office Visit Neurology Karin Ramachandran M.D., M.P.H. [address] [phone] ( rk) documented as of this encounter Visit Diagnoses Not on filedocumented in this encounter Additional Health Concerns Assessment Noted Time PHQ-9 Depression Total Score: 6 03/20/2017 1:11 PM CDT documented as of this encounter Care Teams Greens Keeper Relationship Specialty Start Date End Date Faye Liao M.D. PCP - General 05/09/17 01/14/20 [address] [place] [phone] documented as of this encounter
--- OUTSIDE RECORDS SUMMARY | 2022-09-11 09:26 | XMS_ITS | Encounter Summary ---
:1960 Author Organization [facility] Address [address] [place] [address] Care Team Providers Name Role Phone Unavailable Primary Care Provider Unavailable Encounter Details Date Type Department Care Team Description 04/13/2015 Hospital Encounter HX [facility] ALLERGY Natalia Sepulveda M.D. [address] [place] [address] (Wo rk) Social History Tobacco [...] vomiting, lightheadedness. She has been seen in [place] emergency room for evaluation and management in [...] to environmental allergens demonstrated indeterminate reaction to [place] but with otherwise negative with appropriate positive histamine control response. Please seescanned skin prick testing form for details. IMPRESSION/REPORT/PLAN 1. Angioedema Initial Ordered: C1 Esterase Inhibitor Functional Quant*-[place] [address] C4 Complement, Functional*-[place] 97908 CBC (includes Auto Differential) Complement C3-[place] 8174 Comprehensive Metabolic Panel OV Consult Level 3 - 41104 - 40 min Percutaneous Tests Charge Tryptase-[place] [address]1514 TSH Plus (Ft4 If Indicated) 2. Conjunctivitis Chronic Allergic Ordered: OV Consult Level 3 - 62706 - 40 min Percutaneous Tests Charge 3. Abuse Tobacco Smoking NOS Ordered: OV Consult Level 3 - 25646 - 40 min Orders: Return Visit Allergy [...] angioedema attack but since she lives in [place] and her attacks have involved subjective laryngeal [...] SEPULVEDA MD On: 04/13/2015 04:28 PM Source: [employer] Document Id: [id number] documented in this encounter Nursing Notes Natalia Sepulveda M.D. - 04/13/2015 12:05 PM CDT Ambulatory Patient Education The following Patient Education Materials have been given to the patient: Patient Education Materials: Ambulatory ANGIOEDEMA Ambulatory Angioedema Angioedema (pronounced vhshr-w-wagrr) is a sudden appearance of swollen patches [...] Trouble breathing ?? Severe abdominal pains ?? [phone] Alida Hanson, [address] [place] [address], [place] [address]. All rights reserved. This information is not intended as a substitute for professional medical care. Always follow your healthcare professional's instructions. Source: [facility] POWERCHART Document Id: [id number] documented in this encounter Miscellaneous Notes Miscellaneous - Natalia Sepulveda M.D. - 04/13/2015 12:05 PM CDT Ambulatory Patient Summary [facility] [address] [facility], [address] [place] [id number] Visit Information Name: ZANDRA MAI [facility] Number: [id number] Current Date: 04/13/2015 12:05:51 Physicians Attending Provider: NATALIA SEPULVEDA MD Primary Care Provider: ÁNGEL YADAV MD ZANDRA MAI has been given the following list of follow-up instructions, medication list, and patient education materials: Follow-up Instructions With: Address: When: NATALIA SEPULVEDA [address] [place] [address] [place] [id number] Business (1) In 6 months 10/14/2015 Comments: [...] not crush or chew / [facility] in [place] fax [phone] * You have let us know that [...] further appointment detail needed. Angioedema Angioedema (pronounced poovl-k-sybxi) is a sudden appearance of swollen patches [...] Trouble breathing ?? Severe abdominal pains ?? [phone] [place] [address]. All rights reserved. This information is not intended as a substitute for professional medical care. Always follow your healthcare professional's instructions. Your Goals/Additional instructions: Source: [facility] POWERCHART Document Id: [id number] Miscellaneous - Natalia Sepulveda M.D. - 04/13/2015 12:05 PM CDT Ambulatory Discharge Medication List [address] [place] [address] [place] [phone] Visit Information Name: ZANDRA MAI [facility] Number: [id number] Visit Date: 04/13/2015 [...] not crush or chew / [facility] in [place] fax [phone] * You have let us know that [...] MD Signed On:13-APR-2015 12:04:50 Additional Information: Source: [facility] batteriiCHART Document Id: [id number] Miscellaneous - Alexandra Alonso RWilber - 04/13/2015 11:08 AM CDT Adult Accounting Practice Manager Intake/History Adult Accounting Practice Manager Intake/History Entered On: 04/13/2015 11:12 CDT Performed On: 04/13/2015 11:08 CDT by ALEXANDRA ALONSO deck engine operator Chief Complaint : allergy consult Temperature Core [...] Given By : Patient Languages : Kosovan Is Patient Female and 13-50 no hysterectomy [...] ALONSO RN - 04/13/2015 11:08 CDT Source: [facility] batteriiCHART Document Id: [id number]!30 documented in this encounter Plan of Treatment Upcoming Encounters Date Type Specialty Care Team Description 10/10/2022 Office Visit Neurology Karin Ramachandran M.D., M.P.H. [address] [place] [phone] (Wo rk) documented as of this encounter Visit Diagnoses Not on filedocumented in this encounter Additional Health Concerns Assessment Noted Time PHQ-9 Depression Total Score: 3 03/18/2014 3:18 PM CDT documented as of this encounter
--- OUTSIDE RECORDS SUMMARY | 2022-09-11 09:26 | XMS_ITS | Encounter Summary ---
:1960 Author Organization [facility] Address [address] [place] [address] Care Team Providers Name Role Phone Unavailable Primary Care Provider Unavailable Encounter Details Date Type Department Care Team Description 03/17/[address] [facility] Aurelia Núñez M.D. [address] [place] [address] (Wo rk) Social History Tobacco [...] 1 year on 10/09/13. Satisfied by Contributor_system, [facility]_HX_IMM_SYS SYSTEMS REVIEW GENERAL: no fevers, chills, [...] # 90 tab(s), 3 Refill(s), Maintenance, Pharmacy: [facility][id number] Creatinine Glucose, Fasting* Disorder of Bone and [...] # 90 tab(s), 3 Refill(s), Maintenance, Pharmacy: [facility] #[id number] Thyroid Stimulating Hormone Return in 1 year or sooner if needed. Due for pelvic/pap and mammogram and breast exam. Billing Diagnoses --> Electronically Signed By: FAYE YADAV MD On: 03/17/2014 06:06 PM Source: [employer] Document Id: [id number] documented in this encounter Nursing Notes Faye Yadav M.D. - 03/17/2014 9:18 AM CDT Ambulatory Patient Education The following Patient Education Materials have been given to the patient: Patient Education Materials: Source: [employer] Document Id: [id number] documented in this encounter Miscellaneous Notes Miscellaneous - Conversion, Historical Provider Ser - 03/18/2014 3:18 PM CDT MONICA-7 MONICA-7 Entered On: 03/18/2014 15:18 CDT Performed On: 03/18/2014 15:18 CDT by ELISSA JARAMILLO [facility] GAD7 GAD7 Feeling nervous : Not at [...] 15:18 CDT Source: [facility] POWERCHART Document Id: [id number] CDT!10 Miscellaneous - Conversion, Historical Provider Ser - 03/18/2014 3:18 PM CDT PHQ-9 PHQ-9 Entered On: 03/18/2014 15:18 CDT Performed On: 03/18/2014 15:18 CDT by ELISSA JARAMILLO [facility] PHQ-9 Little interest or pleasure in [...] self : Not at all ELISSA JARAMILLO REGULATORY AFFAIRS COORDINATOR - 03/18/2014 15:18 CDT Source: [facility] Your Style UnzippedCHART Document Id: [id number] CDT!10 Miscellaneous - Faye Yadav M.D. - 03/17/2014 2:15 PM CDT Normal Results Letter 17 March 2014 ZANDRA MAI [address] [place] [id number] Dear ZANDRA MAI, I am pleased to [...] 0.30 - 4.20 Sincerely, FAYE YADAV [address] [place] [address] Electronic Signature Electronically Signed By: FAYE YADAV MD On: 17 March 2014 This document has images extracted. Source: [facility] POWERCHART Document Id: [id number] Electronically signed by Conversion, [facility] Ground Wirer [id number] at 04/22/2017 9:43 PM CDT Miscellaneous - Faye Yadav M.D. - 03/17/2014 9:19 AM CDT Ambulatory Patient Summary [facility] [address] [place], [place] [phone] Visit Information Name: ZANDRA MAI [facility] Number: [id number] Current Date: 03/17/2014 09:19:06 Physicians [...] mg, Oral, once a day Routed to [address] [address] aspirin (aspirin 81 mg oral [...] mcg, Oral, once a day Routed to [address] [address] multivitamin with minerals (Multi-Day with [...] Provider 03/17/2014 11:00 RWZU Mammo screening RWZU MD RM 1 Attention: Contact your local Clinic if further appointment detail needed. Your Goals/Additional instructions: Source: [facility] POWERCHART Document Id: [id number] Miscellaneous - Faye Yadav M.D. - 03/17/2014 9:19 AM CDT Ambulatory Discharge Medication List [address] [id number] Visit Information Name: ZANDRA MAI [facility] Number: [id number] Visit Date: 03/17/2014 09:19:04 Attending [...] mg, Oral, once a day Routed to [facility] [address] aspirin (aspirin 81 mg oral [...] mcg, Oral, once a day Routed to [address] [address] multivitamin with minerals (Multi-Day with [...] MD Signed On:17-MAR-2014 09:18:55 Additional Information: Source: [facility] Your Style UnzippedCHART Document Id: [id number] Miscellaneous - Conversion, Historical Provider Ser - 03/17/2014 8:51 AM CDT Adult Home Advisor Intake/History Adult Home Advisor Intake/History Entered On: 03/17/2014 8:53 CDT Performed On: 03/17/2014 8:51 CDT by ELISSA JARAMILLO [facility] Intake Chief Complaint : Renew medications, PHQ9, [...] Weight Clinic : 61.4 kg ELISSA JARAMILLO [facility] - 03/17/2014 8:51 CDT General Info Information Given By : Patient Languages : Macedonian ELISSA JARAMILLO [facility] - 03/17/2014 8:51 CDT Subjective Pain Symptoms : No ELISSA JARAMILLO CMA - 03/17/2014 8:51 CDT Dependent Habits Tobacco Use/Currently Using : Yes Smoking Status : Current every day smoker ELISSA JARAMILLO [facility] - 03/17/2014 8:51 CDT Tobacco Use Grid Type : Cigarettes Cigarette Use Packs/Day : 1 ELISSA JARAMILLO [facility] - 03/17/2014 8:51 CDT Source: [facility] [employer] Document Id: [id number] CDT!27 documented in this encounter Plan of Treatment Upcoming Encounters Date Type Specialty Care Team Description 10/10/2022 Office Visit Neurology Karin Ramachandran M.D., M.P.H. [address] [place] [address] [phone] (Wo rk) documented as of this [...] 1.10 MGDL eGFR >60 >=60 POWERCHART Black/ [id number] Vietnamese HXeGFR (MDRD) >60 >=60 POWERCHART [id number] Comment: Results are in mL/min/1.73m CKD Stage [...]
--- OUTSIDE RECORDS SUMMARY | 2022-09-11 09:26 | XMS_ITS | Encounter Summary ---
:1960 Author Organization [facility] Address [address] [place] [address] Care Team Providers Name Role Phone Unavailable Primary Care Provider Unavailable Encounter Details Date Type Department Care Team Description 03/17/2014 Hospital Encounter HX [facility] TIO Esvin Ca M.D. [address] [place], [place] [phone] (Wo rk) Social History [...] AM CDT General Message From: MAMI SALDAÑA ORACLE DATABASE DEVELOPER ([facility] Nurse) Sent: 04/05/2014 10:13:43 CDT Subject: General Message Prior Auth approval received for patients Zolpiden ER tab 6.25. Approval valid from 03/25/2014 to 03/25/2015 See scanned form Source: [facility] POWERCHART Document Id: [id number] Electronically signed by Conversion, [facility] Application Systems Architect [id number] at 04/22/2017 9:43 PM CDT documented in this encounter Plan of Treatment Upcoming Encounters Date Type Specialty Care Team Description 10/10/2022 Office Visit Neurology Karin Ramachandran M.D., M.P.H. [address] [place] [address] [phone] (Wo rk) documented as of this encounter Visit Diagnoses Not on filedocumented in this encounter
--- OUTSIDE RECORDS SUMMARY | 2022-09-11 09:26 | XMS_ITS | Encounter Summary ---
:[address] [facility] Address [address] [place] [address] Care Team Providers Name Role Phone Unavailable Primary Care Provider Unavailable Encounter Details Date Type Department Care Team Description 03/20/2016 Hospital Encounter HX [facility] Aurelia Yadav M.D. [address] [place] [address] (Wo rk) Social History Tobacco [...] OF PRESENT ILLNESS Patient was hospitalized at [facility] from 03/11- for alcohol withdrawal seizure. She [...] 3-5mg as needed for sleep instead. 8. [facility] () Patient plans to do colonoscopy after her chest CT is done. Orders: Comprehensive Metabolic Panel I spent more than 20 minutes of this 30 minute appointment in counseling on management of alcohol and tobacco dependence. RTC 2-3 weeks for recheck. Electronically Signed By: FAYE YADAV MD On: 03/20/2016 04:30 PM Source: [employer] POWERCHART Document Id: [id number] documented in this encounter Miscellaneous Notes Miscellaneous - Conversion, Historical Provider Ser - 04/12/2016 8:37 AM CDT Schedule Follow-Up Visit April 12, 2016 CHIP MAI [address] [place] [id number] Dear CHIP MAI, Our records indicate that you are due for fasting labs for Dr. Yadav prior to your next appointment with her. Please call us to make an appointment at your convenience. Our telephone number for scheduling an appointment is [phone]. Your health is important to us. If you have already made an appointment for this or have had the procedure done, please disregard this notice. Sincerely, SHENG WHYTE Electronic Signature Electronically Signed By: SHENG WHYTE On: April 12, 2016 This document has images extracted. Source: [facility] POWERCHART Document Id: [id number] Miscellaneous - Faye Yadav M.D. - 03/21/2016 2:12 PM CDT Normal Results Letter March 21, 2016 CHIP MAI [address] [place] [id number] Dear CHIP MAI, I am pleased to [...] 10/17/2015 8.6 - 10.3 Sincerely, FAYE YADAV [address] [place] [id number] Electronic Signature Electronically Signed By: FAYE YADAV MD On: March 21, 2016 This document has images extracted. Source: [facility] POWERCHART Document Id: [id number] Miscellaneous - Faye Yadav M.D. - 03/20/2016 4:31 PM CDT Ambulatory Patient Summary [address] [id number] Visit Information Name: CHIP MAI [facility] Number: [id number] Current Date: 03/20/2016 16:31:24 Physicians [...] Routed to [facility] [address] [place] [address] gabapentin (gabapentin 300 mg oral capsule) 1 cap, Oral, three times a day New Routed to [id number] [id number] ibuprofen (ibuprofen 200 mg oral capsule) See [...] Oral, once a day New Routed to [address] [address] Stop Taking the Following Medications: zolpidem (Ambien [...] Location Provider 04/10/2016 08:45 JHON Barrett MD, [facility] Attention: Contact your local Clinic if further [...] if you dont have one. Go to [email or web address] and click on Create Your Account. Then, follow the directions to complete the online form. Youll be asked for your [facility] number which you can find at the top of this document. Your Goals/Additional instructions: Source: [facility] POWERCHART Document Id: [id number] Miscellaneous - Faye Yadav M.D. - 03/20/2016 4:31 PM CDT Ambulatory Discharge Medication List [address] [id number] Visit Information Name: UNDERDAHL, CHIP JACQUI [facility] Number: [id number] Visit Date: 03/20/2016 16:31:23 Attending [...] Oral, once a day New Routed to [place] [id number] [address] gabapentin (gabapentin 300 mg oral capsule) 1 cap, Oral, three times a day New Routed to [id number] [place] [address] ibuprofen (ibuprofen 200 mg oral capsule) [...] Oral, once a day New Routed to [address] [id number] Stop Taking the Following Medications: zolpidem (Ambien [...] MD Signed On:20-MAR-2016 16:31:06 Additional Information: Source: [facility] POWERCHART Document Id: [id number] Miscellaneous - Mami Saldaña, C.M.A. - 03/20/2016 10:16 AM CDT Adult Campaign Advisor Intake/History Adult Campaign Advisor Intake/History Entered On: 03/20/2016 10:17 CDT Performed On: 03/20/2016 10:16 CDT by MAMI SALDAÑA [facility] Intake Chief Complaint : hospital follow-up Temperature [...] Information Given By : Patient Languages : Ukrainian Is Patient Female and 13-50 no hysterectomy : No MAMI SALDAÑA CMA - 03/20/2016 10:16 CDT Subjective Pain Symptoms : No MAMI SALDAÑA [facility] - 03/20/2016 10:16 CDT Dependent Habits Exposure to Tobacco Smoke : Patient smokes, Other: .5-1 PPD Smoking Status : Former smoker Tobacco 2A : Yes Tobacco Use/Currently Using : No Tobacco Use/Last 30 Days : Yes Tobacco Use/Last 12 months : Yes Type : Cigarettes: Less than 20 per day Tobacco Use/Advised to Quit : Yes MAMI SALDAÑA [facility] - 03/20/2016 10:16 CDT Caffeine Use Grid Caffeine Use : Current Type : Coffee Frequency : Daily Amount : 3-4 cups MAMI SALDAÑA [facility] - 03/20/2016 10:16 CDT Source: [facility] TAKO Document Id: [id number] CDT!34 documented in this encounter Plan of Treatment Upcoming Encounters Date Type Specialty Care Team Description 10/10/2022 Office Visit Neurology Karin Ramachandran M.D., M.P.H. [address] [phone] (Wo rk) documented as [...] POWERCHART MGDL eGFR >60 >=60 POWERCHART Black/ [id number] Beninese HXeGFR (MDRD) >60 >=60 POWERCHART [id number] Comment: Results are in mL/min/1.73m CKD Stage [...]
--- OUTSIDE RECORDS SUMMARY | 2022-09-11 09:26 | XMS_ITS | Encounter Summary ---
:1960 Author Organization [facility] Address [address] [place] [address] Care Team Providers Name Role Phone Unavailable [...] Neurology Karin Ramachandran M.D., M.P.H. [address] [place] [address] [phone] (Wo rk) documented as of [...] POCT, Urine (lab) (03/11/2016 8:52 AM CDT) [facility] Method Time Signature Ketone, POCT, 1+ (A) Negative [facility] Specific 1.020 1.001 - [facility] [place], 1.035 LABORATORIES - POCT, [facility] Blood, POCT, Negative Negative [facility] pH, POCT, 6.0 5.0 - 8.0 [facility] Urine [facility] Nitrites, Negative Negative [facility] POCT, [facility] Leukocytes, Negative Negative [facility] POCT, [facility] Glucose, Negative Negative [facility] POCT, [facility] Bilirubin, Negative Negative [facility] POCT, [facility] Protein, Trace (A) Negative [facility] POCT, [facility] Urobilinogen, 0.2 0.2 - 1.0 [facility] POCT, Urine [facility] Specimen Anatomical Collection Method Collection Time Receive d Time (Source) Location / / Volume Laterality 03/11/2016 8:52 AM 6 8:52 CDT AM CDT Historical Provider LAB POCT ORDERABLES - DEVICE Performing Organization Address City/State/ZIP Code Phon e Number [facility] LABORATORIES - [address] [place] [address] [facility] (ABNORMAL) CBC with Differential (03/11/2016 8:51 AM CDT) [facility] Method Time Signature Hemoglobin 12.6 12.0 - [facility] 15.5 G/DL LABORATORIES - [facility] Hematocrit 36.9 34.9 - [facility] 44.5 % LABORATORIES - [facility] Leukocytes 13.1 (H) 3.5 - [facility] 10.5 LABORATORIES - X10(9)/L [facility] Neutrophils 11.25 (H) 1.70 - [facility] 7.00 LABORATORIES - X10(9)/L [facility] Erythrocytes 3.56 (L) 3.90 - [facility] 5.03 LABORATORIES - X10(12)/L [facility] MCV 103.7 (H) 81.6 - [facility] 98.3 [place] LABORATORIES - [facility] RBC Distrib 13.4 11.9 - [facility] Width 15.5 % LABORATORIES - [facility] Platelet Count 257 150 - 450 [facility] X10(9)/L LABORATORIES - [facility] Lymphocytes 0.49 (L) 0.90 - [facility] 2.90 LABORATORIES - X10(9)/L [facility] Monocytes 1.28 (H) 0.30 - [facility] 0.90 LABORATORIES - X10(9)/L [facility] Eosinophils 0.03 (L) 0.05 - [facility] 0.50 LABORATORIES - X10(9)/L [facility] Basophils 0.03 0.00 - [facility] 0.30 LABORATORIES - X10(9)/L [facility] Specimen Anatomical Collection Method Collection Time Receive d Time (Source) Location / / Volume Laterality 03/11/2016 8:51 AM 6 8:51 CDT AM CDT Joshua Shine M.D. LAB BLOOD ADD-ON Performing Organization Address City/[facility]/ZIP Code Phon e Number [facility] LABORATORIES - [address] [place], [place] [address] [facility] (ABNORMAL) BMP (Basic Metabolic Panel) (03/11/2016 8:51 AM CDT) Patholo gist Method Time Signature Sodium, P 134 (L) 135 - 145 [facility] MMOL/L LABORATORIES - [facility] Potassium, P 3.7 3.6 - 5.2 [facility] MMOL/L LABORATORIES - [facility] eGFR >60 >60 [facility] Non-Black/Afric ML/MIN/BS LABORATORIES - an [place]onegasque A [facility] eGFR-Black/Afri >60 >60 [facility] can [place]gas[place] ML/MIN/BS LABORATORIES - A [facility] Chloride, S 94 (L) 98 - 107 [facility] MMOL/L LABORATORIES - [facility] Creatinine 0.5 (L) 0.6 - 1.1 [facility] MG/DL LABORATORIES - [facility] BUN (Blood Urea 7 6 - 21 [facility] Nitrogen), S MG/DL LABORATORIES - [facility] HX Bicarbonate, 21 (L) 22 - 29 [facility] P/S MMOL/L LABORATORIES - [facility] Glucose, S 105 70 - 140 [facility] MG/DL LABORATORIES - [facility] Anion Gap 19 (H) 7 - 15 [facility] LABORATORIES [facility] Specimen Anatomical Collection Method Collection Time Receive d Time (Source) Location / / Volume Laterality 03/11/2016 8:51 AM 6 8:51 CDT AM CDT Joshua Shine M.D. LAB BLOOD ADD-ON Performing Organization Address City/[facility] Phon e Number [facility] LABORATORIES - [address] Thiamine (Vitamin B1), Whole Blood (03/11/2016 8:50 AM CDT) P athologist Signature Thiamine 125 70 - 180 [facility] (Vitamin B1), NMOL/L LABORATORIES - WB [facility] Specimen Anatomical Collection Method Collection Time Receive d Time (Source) Location / / Volume Laterality 03/11/2016 8:50 AM 6 8:50 CDT AM CDT Joshua Shine M.D. LAB BLOOD NON ADD-ON Performing Organization Address City/[facility] Phon e Number [facility] LABORATORIES - [address] [address] [facility] Lactate (03/11/2016 8:50 AM CDT) P athologist Signature Lactate, P 0.8 0.6 - 2.3 [facility] MMOL/L LABORATORIES - [facility] Specimen Anatomical Collection Method Collection Time Receive d Time (Source) Location / / Volume Laterality 03/11/2016 8:50 AM 6 8:50 CDT AM CDT Joshua Shine M.D. LAB BLOOD NON ADD-ON Performing Organization Address City/[facility]/ZIP Code Phon e Number [facility] LABORATORIES - [address] [place] [phone] 05 [facility] (ABNORMAL) Magnesium (03/11/2016 5:55 AM CDT) Analysis Performed At Path logist Time Signature Magnesium, S 1.5 (L) 1.7 - 2.3 [facility] MG/DL LABORATORIES - [facility] Specimen Anatomical Collection Method Collection Time Receive d Time (Source) Location / / Volume Laterality 03/11/2016 5:55 AM 6 5:55 CDT AM CDT Jennifer Almanzar M.D. LAB BLOOD ADD-ON Performing Organization Address City/[facility]/ZIP Code Phon e Number [facility] LABORATORIES - [address] [place], [place] [address] [facility] (ABNORMAL) Calcium, Total (03/11/2016 5:55 AM CDT) [facility] gist Method Time Signature Calcium, 10.5 (H) 8.9 - [facility] Total, S 10.1 LABORATORIES - MG/DL [facility] Specimen Anatomical Collection Method Collection Time Receive d Time (Source) Location / / Volume Laterality 03/11/2016 5:55 AM 6 5:55 CDT AM CDT Jennifer Almanzar M.D. LAB BLOOD ADD-ON Performing Organization Address City/[facility]/ZIP Code Phon e Number [facility] LABORATORIES - [address] [place], [place] [address] [facility] (ABNORMAL) CBC with Differential (03/11/2016 5:55 AM CDT) [facility] gist Method Time Signature Hemoglobin 13.2 12.0 - [facility] 15.5 G/DL [facility] Hematocrit 37.2 34.9 - [facility] 44.5 % [facility] RBC Distrib 12.9 11.9 - [facility] Width 15.5 % [facility] Platelet Count 264 150 - 450 [facility] X10(9)/L [facility] Leukocytes 12.9 (H) 3.5 - [facility] 10.5 LABORATORIES - X10(9)/L [facility] Neutrophils 11.06 (H) 1.70 - [facility] 7.00 LABORATORIES - X10(9)/L [facility] Lymphocytes 0.52 (L) 0.90 - [facility] 2.90 LABORATORIES - X10(9)/L [facility] Monocytes 1.21 (H) 0.30 - [facility] 0.90 LABORATORIES - X10(9)/L [facility] Eosinophils 0.09 0.05 - [facility] 0.50 LABORATORIES - X10(9)/L [facility] Basophils 0.02 0.00 - [facility] 0.30 LABORATORIES - X10(9)/L [facility] Erythrocytes 3.65 (L) 3.90 - [facility] 5.03 LABORATORIES - X10(12)/L [facility] MCV 101.9 (H) 81.6 - [facility] 98.3 FL LABORATORIES - [facility] Specimen Anatomical Collection Method Collection Time Receive d Time (Source) Location / / Volume Laterality 03/11/2016 5:55 AM 6 5:55 CDT AM CDT Isreal Vaca M.D. LAB BLOOD ADD-ON Performing Organization Address City/[facility] Code Phon e Number [facility] LABORATORIES - [address] [phone] [facility] Ethanol Level, Serum (03/11/2016 5:55 AM CDT) athologist Signature Ethanol, S <10 <10 MG/DL [facility] Specimen Anatomical Collection Method Collection Time Receive d Time (Source) Location / / Volume Laterality 03/11/2016 5:55 AM 6 5:55 CDT AM CDT Isreal Vaca M.D. LAB BLOOD NON ADD-ON Performing Organization Address City/[facility] Code Phon e Number [facility] LABORATORIES - [address] [phone] [facility] (ABNORMAL) BMP (Basic Metabolic Panel) (03/11/2016 5:55 AM CDT) Patholo gist Method Time Signature Sodium, P 129 (L) 135 - 145 [facility] MMOL/L LABORATORIES [facility] Potassium, P 4.1 3.6 - 5.2 [facility] MMOL/L LABORATORIES - [facility] BUN (Blood Urea 7 6 - 21 [facility] Nitrogen), S MG/DL LABORATORIES - [facility] HX Bicarbonate, 25 22 - 29 [facility] P/S MMOL/L LABORATORIES - [facility] Chloride, S 88 (L) 98 - 107 [facility] MMOL/L LABORATORIES - [facility] Creatinine 0.6 0.6 - 1.1 [facility] MG/DL LABORATORIES - [facility] eGFR >60 >60 [facility] Non-Black/Afric ML/MIN/BS LABORATORIES - an [place] A [facility] eGFR-Black/Afri >60 >60 [facility] can [place] ML/MIN/BS LABORATORIES - [facility] Glucose, S 111 70 - 140 [facility] MG/DL LABORATORIES - [facility] Anion Gap 16 (H) 7 - 15 [facility] LABORATORIES - [facility] Specimen Anatomical Collection Method Collection Time Receive d Time (Source) Location / / Volume Laterality 03/11/2016 5:55 AM 6 5:55 CDT AM CDT Isreal Vaca M.D. LAB BLOOD ADD-ON Performing Organization Address City/[facility]/ZIP Code Phon e Number [facility] LABORATORIES - [address] [place] [phone] 05 [facility] Lactate (03/11/2016 5:55 AM CDT) P athologist Signature Lactate, P 1.3 0.6 - 2.3 [facility] MMOL/L LABORATORIES - [facility] Specimen Anatomical Collection Method Collection Time Receive d Time (Source) Location / / Volume Laterality 03/11/2016 5:55 AM 6 5:55 CDT AM CDT Isreal Vaca M.D. LAB BLOOD NON ADD-ON Performing Organization Address City/[facility] Phon e Number [facility] LABORATORIES - [address] [place], [place] [address] [facility] (ABNORMAL) CK (Creatine Kinase) (03/11/2016 5:55 AM CDT) Patholo gist Method Time Signature Creatine 560 (H) 38 - 176 [facility] Kinase (CK), S U/L LABORATORIES [facility] Specimen Anatomical Collection Method Collection Time Receive d Time (Source) Location / / Volume Laterality 03/11/2016 5:55 AM 6 5:55 CDT AM CDT Isreal Vaca M.D. LAB BLOOD ADD-ON Performing Organization Address City/State/ZIP Code Phon e Number [facility] LABORATORIES - [address] [place], [place] [address] [facility] documented in this encounter Visit Diagnoses Not on filedocumented in this encounter Additional Health Concerns Assessment Noted Time PHQ-9 Depression Total Score: 10 10/17/2015 9:46 AM CS T documented as of this encounter
--- OUTSIDE RECORDS SUMMARY | 2022-09-11 09:26 | XMS_ITS | Encounter Summary ---
:1960 Author Organization [facility] Address [address] [place] [address] Care Team Providers Name Role Phone Unavailable Primary Care Provider Unavailable Encounter Details Date Type Department Care Team Description 10/17/2015 Hospital Encounter [facility]X [facility] Aurelia Yadav M.D. [address] [place] [address] (Wo rk) Social History Tobacco Use Types Packs/Day Years Used Date Smoking Tobacco: Never Assessed Sex Assigned at Date Recorded Female 07/10/2022 7:32 AM CDT documented as of this encounter Last Filed Vital Signs Vital Sign Reading Time Taken Comments Blood Pressure 136/82 10/17/2015 9:48 AM MACHINE BURRER Pulse 100 10/17/2015 9:48 AM MACHINE BURRER Temperature - - Respiratory Rate - - Oxygen Saturation - - Inhaled Oxygen Concentration - - Weight 59.1 kg (130 lb 4.7 oz) 10/17/2015 9:48 AM MACHINE BURRER Height 160 cm (5' 2.99) 10/17/2015 9:48 AM MACHINE BURRER Body Mass Index 23.09 10/17/2015 9:48 AM MACHINE BURRER documented in this encounter Medications at Time [...] months on 10/17/15. Satisfied by MAMI SALDAÑA [facility] Health Assessment every 1 year on 10/17/15. Satisfied by MAMI SALDA[facility] Vaccine: Flu every 1 year on 10/03/15. Satisfied by MARCO ANTONIO [facility] SYSTEMS REVIEW GENERAL: no unexplained fevers, chills, [...] on quitting. Patient is contemplative. Referred to [place] Quit Plan for more resources. Follow up [...] YADAV MD On: 10/17/2015 04:53 PM Source: [facility] POWERCHART Document Id: [id number] INE BURRER documented in this encounter Nursing Notes Mami [...] time! So, don't give up! Go Cold [place]: Most ex-smokers quit cold turkey. Trying to [...] the free national Quitline for more information. 062-HGZF-WUY (245-304-8237). Low-cost or free programs are offered by many hospitals,local chapters of the [place] [employer] (325-379-4923) and the [place] [employer] Society (873-309-7076). Support at home is important too. Non-smokers can help by offering praise and encouragement. If the smoker fails to quit, encourage them to try again! Xtfs-Ogr-Tjxaqcr Medicines: For those who can't quit on [...] visit the following links: ?? National Cancer [place] , Clearing the Air, Quit Smoking Today - an online booklet. http://www.smokefree.gov/pubs/clearing_the_air.pdf ?? Smokefree.gov http://smokefree.gov/ ?? QuitNet http://www.quitnet.com/ ?? 4497-6160 [place] [address]. All rights reserved. This information is not intended as a substitute for professional medical care. Always follow your healthcare professional's instructions. This document has images extracted. Please consider using Referly for all your patient education needs. Source: [facility] POWERCHART Document Id: [id number] INE BURRER documented in this encounter Miscellaneous Notes Miscellaneous - Faye Yadav M.D. - 11/01/2015 7:43 AM CST Normal Results Letter 01 November 2015 CHIP MAI [id number] [place] [id number] Dear CHIP MAI, I am pleased to [...] Current Result Laboratory-Scanned 10/17/2015 Sincerely, FAYE YADAV [address] [place] [address] Electronic Signature Electronically Signed By: FAYE YADAV MD On: 01 November 2015 This document has images extracted. Source: [facility] Bilibot Document Id: [id number] Electronically signed by Gabriela [facility] Telecommunications Line Installer [id number] at 04/22/2017 6:25 AM CDT Miscellaneous - Faye Yadav M.D. - 10/17/2015 6:21 PM CST Normal Results Letter 17 October 2015 CHIP MAI [id number] [facility] [place] [phone] Dear CHIP MAI, I am pleased to [...] did put your cholesterol results in the [place] Heart [employer]/[place] [employer] calculator which showed your [...] 10/17/2015 0.27 - 4.20 Sincerely, FAYE YADAV [facility] [place] [address] Electronic Signature Electronically Signed By: FAYE YADAV MD On: 17 October 2015 This document has images extracted. Source: [facility] POWERCHART Document Id: [id number] Electronically signed by Conversion, [facility] Telecommunications Line Installer [id number] at 04/22/2017 6:25 AM CDT Miscellaneous - Faye Yadav M.D. - 10/17/2015 4:56 PM CST [facility]ulatory [facility] [address] [phone] Visit Information Name: CHIP MAI [facility] Number: [id number] Current Date: 10/17/2015 16:56:45 Physicians [...] Wheezing use with spacer chamber Routed to [address] [address] amLODIPine (amLODIPine 5 mg oral tablet) 5 mg, Oral, once a day Routed to [address] [address] aspirin (aspirin 81 mg oral [...] mcg, Oral, once a day Routed to [facility] [address] [address] loratadine (loratadine 10 mg oral tablet) 1 [...] not crush or chew / Cub in [place] fax [phone] This is a CHANGE Routed to Printer [...] Appointments Date Time Location Provider 11/16/2015 10:40 [facility] Mammo-Zumb RWZU MA RM 1 Attention: Contact [...] time! So, don't give up! Go Cold [place]: Most ex-smokers quit cold turkey. Trying to [...] the free national Quitline for more information. 942-QAAR-IKT (454-592-6793). Low-cost or free programs are offered by many hospitals,local chapters of the [place] [employer] (653-696-7886) and the [place] [employer] (431-104-4077). Support at home is important too. Non-smokers can help by offering praise and encouragement. If the smoker fails to quit, encourage them to try again! Nert-Eej-Bpmsozt Medicines: For those who can't quit on [...] visit the following links: ?? National Cancer [place] , Clearing the Air, Quit Smoking Today - an online booklet. http://www.smokefree.gov/pubs/clearing_the_air.pdf ?? Smokefree.gov http://smokefree.gov/ ?? QuitNet http://www.quitnet.com/ ?? 8612-1844 Alida Hanson, [address] [place] [address], [place] [address]. All rights reserved. This information is not [...] if you dont have one. Go to [email or web address] and click on Create Your Account. Then, follow the directions to complete the online form. Youll be asked for your [facility] number which you can find at the top of this document. Your Goals/Additional instructions: This document has images extracted. Please consider using Referly for all your patient education needs. Source: [facility] POWERCHART Document Id: [id number] INE BURRER Miscellaneous - Faye Yadav M.D. - 10/17/2015 4:56 PM CST Ambulatory Discharge Medication List [address] [phone] Visit Information Name: CHIP MAI [facility] Number: [id number] Visit Date: 10/17/2015 16:56:44 Attending [...] Wheezing use with spacer chamber Routed to [address] [address] amLODIPine (amLODIPine 5 mg oral tablet) 5 mg, Oral, once a day Routed to [address] [address] aspirin (aspirin 81 mg oral [...] mcg, Oral, once a day Routed to [address] [address] loratadine (loratadine 10 mg oral tablet) 1 [...] not crush or chew / [place] in [place] fax [phone] This is a CHANGE Routed to Printer [...] MD Signed On:17-OCT-2015 16:56:35 Additional Information: Source: [facility] POWERCHART Document Id: [id number] INE BURRER Miscellaneous - Saldaña, Mami L, C.M.A. - 10/17/2015 11:06 AM CST Ambien From: MAMI SALDAÑA CMA ([facility] Nurse) Sent: 10/17/2015 11:06:14 MACHINE BURRER Subject: Ambien Rx for Ambien faxed to pharmacy. Source: [facility] POWERCHART Document Id: [id number] Electronically signed by Conversion, [facility] Telecommunications Line Installer [id number] at 04/22/2017 6:25 AM CDT Miscellaneous - Mami Saldaña C.M.A. 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 Intake/History Entered On: 10/17/2015 9:52 MACHINE BURRER Performed On: 10/17/2015 9:48 MACHINE BURRER by MAMI SALDAÑA CMA Intake Chief Complaint [...] kg/m2 MAMI SALDAÑA CMA - 10/17/2015 9:48 MACHINE BURRER General Info Information Given By : Patient Languages : Fijian Is Patient Female and 13-50 no hysterectomy : No MAMI SALDAÑA CMA - 10/17/2015 9:48 MACHINE BURRER Subjective Pain Symptoms : No MAMI SALDAÑA CMA - 10/17/2015 9:48 MACHINE BURRER Dependent Habits Tobacco Use/Currently Using : Yes Exposure to Tobacco Smoke : Patient smokes, Other: .5-1 PPD Smoking Status : Current every day smoker MAMI SALDAÑA CMA - 10/17/2015 9:48 MACHINE BURRER Tobacco Use Grid Type : Cigarettes Cigarette Use Packs/Day : 0.5 [facility]I [facility]DA[facility]A [facility] - 10/17/2015 9:48 MACHINE BURRER Caffeine Use Grid Caffeine Use : Current Type : Coffee Frequency : Daily Amount : 3-4 cups MAMI SALDAÑA [facility] - 10/17/2015 9:48 MACHINE BURRER Source: [facility] POWERCHART Document Id: [id number] MACHINE BURRER!37 INE BURRER Miscellaneous - Mami Saldaña C.M.AEvans - 10/17/2015 9:47 AM CST Health Assessment Health Assessment Entered On: 10/17/2015 9:48 MACHINE BURRER Performed On: 10/17/2015 9:47 MACHINE BURRER by MAMI [facility]DA[facility] Health Assessment Complete Health Assessment Complete or Modified : Annual Health Assessment Annual Health Assessment Completed : Yes M[facility]I [facility] - 10/17/2015 9:47 MACHINE BURRER Nutrition Nutrition Risk Factors by History Adult : None MAMI SALDAÑA [facility] - 10/17/2015 9:47 MACHINE BURRER Functional Current Daily Living Assistance : None MAMI [facility]DA[facility] - 10/17/2015 9:47 MACHINE BURRER Dependent Habits Tobacco Use/Currently Using : Yes Exposure to Tobacco Smoke : Patient smokes, Other: .5-1 PPD Smoking Status : Current every day smoker M[facility]I [facility] - 10/17/2015 9:47 MACHINE BURRER Tobacco Use Grid Type : Cigarettes Cigarette Use Packs/Day : 0.5 [facility]I [facility] - 10/17/2015 9:47 MACHINE BURRER Alcohol Use : Yes M[facility]I [facility] - 10/17/2015 9:47 MACHINE BURRER AUDIT Tool How Often Do You Have A Drink : 4 or more times a week How Many Drinks in a Day When Drinking : 5 or 6 Six or More Drinks On One Occassion : Daily or almost daily Audit Phase 1 Score : 10 M[facility]I [facility]DA[facility] - 10/17/2015 9:47 MACHINE BURRER Psychosocial Domestic Abuse Concerns : None Behavioral Health Screen/Safety Assmt : No Restorationist Preference : No qualifying data available. M[facility]I [facility]DA[facility] - 10/17/2015 9:47 MACHINE BURRER Advance Directive Advanced Directives : No Advance Directive Additional Information : No MAMI [facility]DAÑ[facility] - 10/17/2015 9:47 MACHINE BURRER Educ Needs Learning Style Preference Adult Grid Patient : None Family : None MAMI SALDAÑA [facility] - 10/17/2015 9:47 MACHINE BURRER Source: [facility] Bilibot Document Id: [id number] MACHINE BURRER!33 INE BURRER Miscellaneous - Mami Saldaña, C.M.A. - 10/17/2015 9:46 AM CST PHQ-9 PHQ-9 Entered On: 10/17/2015 9:47 MACHINE BURRER Performed On: 10/17/2015 9:46 MACHINE BURRER by MAMI SALDAÑA [facility] PHQ-9 Little interest or pleasure in doing [...] with others : Somewhat difficult MAMI SALDAÑA [facility] - 10/17/2015 9:46 MACHINE BURRER Source: [facility] Bilibot Document Id: [id number] MACHINE BURRER!13 INE BURRER documented in this encounter Plan of Treatment Upcoming Encounters Date Type Specialty Care Team Description 10/10/2022 Office Visit Neurology Karin Ramachandran M.D., M.P.H. [address] [place], [place] [phone] (Wo rk) documented as of this encounter Procedures Procedure Name Priority Date/Time Associated Diagnosis Comme nts LIPID PANEL, S Routine 10/17/2015 10:40 AM Result s for this MACHINE BURRER procedure are i n the results section. THYROID-STIMULATING Routine 10/17/2015 10:40 AM R esults for this HORMONE-SENSITIVE MACHINE BURRER procedure are in (S-TSH) the results section. BASIC METABOLIC Routine 10/17/2015 10:40 AM Resul ts for this PANEL, S/P MACHINE BURRER procedure are i n the results section. PATHOLOGY TRIPE FINISHER Routine 10/17/2015 12:00 AM Results for this CYTOLOGY MACHINE BURRER procedure are i n the results section. documented in this encounter Results (ABNORMAL) BMP (Basic Metabolic Panel) (10/17/2015 10:40 AM MACHINE BURRER) Analysis Performed At Patho logist Time Signature [...] S MGDL eGFR >60 >=60 POWERCHART Black/ [id number] [place] HXeGFR (MDRD) >60 >=60 POWERCHART [id number] Comment: Results are in mL/min/1.73m CKD Stage I: ? GFR > 90 CKD Stage II: ?GFR 60 to 89 CKD Stage III: ? GFR 30 to 59 CKD Stage IV: ? GFR 15 to 29 CKD Stage V: ?GFR < 15 or Dialysi s Specimen (Source) Anatomical Collection Method Collection Time Re ceived Time Location / / Volume Laterality Blood 10/17/2015 10:40 AM MACHINE BURRER Faye Yadav M.D. LAB BLOOD ADD-ON Performing Organization Address City/State/ZIP Code Phon e Number POWERCHART Thyroid-Stimulating Hormone-Sensitive (s-TSH) (10/17/2015 10:40 AM MACHINE BURRER) P athologist Signature TSH 1.84 0.27 - 4.20 POWERCHART (Thyrotropin) MIUL Specimen (Source) Anatomical Collection Method Collection Time Re ceived Time Location / / Volume Laterality Blood 10/17/2015 10:40 AM MACHINE BURRER Faye Yadav M.D. LAB BLOOD ADD-ON Performing Organization Address City/State/ZIP Code Phon e Number POWERCHART (ABNORMAL) Lipid Panel (10/17/2015 10:40 AM MACHINE BURRER) P athologist Signature Cholesterol, 258 (H) <=199 MGDL POWERCHART Total Comment: 2013 National Lipid Association recommen dations for Total [...] Calculated LDL 96 <=129 MGDL POWERCHART Comment: 2013 National Lipid Association recommen dations for LDL-C [...] esting for FH and FDB is available throu [facility]: FH/ADH Genetic Reflex Kol[place] el (test ADHP). Acquired (non-genetic) causes of markedly increased LDL cholesterol include cholestatic liver disease due to the presence of LpX. If a genetic form of hypercholesterolemia is suspected, family studies including biochemical testing fo r lipids (total cholesterol,triglycerides, LDL cholesterol and HDL cholesterol) are recommended. ??Please contact the laboratory at or the on-line test catalog at [employer] for information about how to order these tmoi ts or to speak with a genetic counselor. Further interpretation would require clinical information. Total Cholesterol/HDL Ratio 2 PO WERCHART HXLDL/HDL 1 POWERCHART Specimen (Source) Anatomical Collection Method Collection Time Re ceived Time Location / / Volume Laterality Blood 10/17/2015 10:40 AM MACHINE BURRER Faye Yadav M.D. LAB BLOOD ADD-ON Performing Organization Address City/State/ZIP Code Phon e Number POWERCHART Pathology TRIPE FINISHER Cytology (10/17/2015 12:00 AM MACHINE BURRER) Specimen (Source) Anatomical Location Collection Method / Collectio n Time Received Time / Laterality Volume 10/17/2015 Narrative [facility] - 10/27/20 15 9:07 AM MACHINE BURRER Pat: CARMENJOHANNECHIP RUBEN ([id number]) Age/Sex: 55 ??F ??Loc: ? -00 ([place] ) [facility] ??JULISA: 10/17/15 00:00 ??REC: 00:00 ??PHYS: , Cytology ?[facility] thinlayer cervica Patient Name: CHIP MAI MR#: [id number] Submitting Physician: FAYE YADAV MD ? ?[id number] Specimen #[id number] Performing Lab: ??[address] [address] CLINICAL HISTORY: Last menstrual period: Status: Specimen [...] PCR, [facility], test ing performed by [facility] HPV High Risk type 16, PCR ? [...] Organization Address City/State/ZIP Code Phon e Number [facility] documented in this encounter Visit Diagnoses Not on filedocumented in this encounter Additional Health Concerns Assessment Noted Time PHQ-9 Depression Total Score: 10 10/17/2015 9:46 AM CS T documented as of this encounter
--- OUTSIDE RECORDS SUMMARY | 2022-09-11 09:26 | XMS_ITS | Encounter Summary ---
:1960 Author Organization [facility] Address [address] [place] [address] Care Team Providers Name Role Phone Unavailable Primary Care Provider Unavailable Encounter Details Date Type Department Care Team Description 01/07/2013 Hospital Encounter HX NO MAPPING Abelardo Liao M.D. [address] [place] [phone] (Wo rk) Social History Tobacco Use Types Packs/Day Years Used Date Smoking Tobacco: Never Assessed Sex Assigned at Date Recorded Female 07/10/2022 7:32 AM CDT documented as of this encounter Plan of Treatment Upcoming Encounters Date Type Specialty Care Team Description 10/10/2022 Office Visit Neurology Karin Ramachandran M.D., M.P.H. [address] [place], [place] [phone] (Wo rk) documented as of this encounter Visit Diagnoses Not on filedocumented in this encounter
--- OUTSIDE RECORDS SUMMARY | 2022-09-11 09:26 | XMS_ITS | Encounter Summary ---
:1960 Author Organization [facility] Address [address] [place] [address] Care Team Providers Name Role Phone Unavailable [...] Neurology Karin Ramachandran M.D., M.P.H. [address] [place], [place] [phone] (Wo rk) documented as [...] CBC with Differential (03/13/2016 5:06 AM CDT) [facility] Method Time Signature Erythrocytes 3.60 (L) 3.90 - [facility] 5.03 LABORATORIES - X10(12)/L [facility] MCV 102.5 (H) 81.6 - [facility] 98.3 FL LABORATORIES - [facility] RBC Distrib 13.5 11.9 - [facility] Width 15.5 % LABORATORIES - [facility] Platelet Count 227 150 - 450 [facility] X10(9)/L LABORATORIES - [facility] Lymphocytes 1.02 0.90 - [facility] 2.90 LABORATORIES - X10(9)/L [facility] Monocytes 0.68 0.30 - [facility] 0.90 LABORATORIES - X10(9)/L [facility] Hemoglobin 12.5 12.0 - [facility] 15.5 G/DL LABORATORIES - [facility] Hematocrit 36.9 34.9 - [facility] 44.5 % LABORATORIES - [facility] Leukocytes 11.3 (H) 3.5 - [facility] 10.5 LABORATORIES - X10(9)/L [facility] Neutrophils 9.27 (H) 1.70 - [facility] 7.00 LABORATORIES - X10(9)/L [facility] Eosinophils 0.25 0.05 - [facility] 0.50 LABORATORIES - X10(9)/L [facility] Basophils 0.03 0.00 - [facility] 0.30 LABORATORIES - X10(9)/L [facility] Specimen Anatomical Collection Method Collection Time Receive d Time (Source) Location / / Volume Laterality 03/13/2016 5:06 AM 6 5:06 CDT AM CDT Sunday Juarez M.D. LAB BLOOD ADD-ON Performing Organization Address City/[facility] Code Phon e Number [facility] LABORATORIES - [address] [place] [address] [facility] (ABNORMAL) CK (Creatine Kinase) (03/13/2016 5:06 AM CDT) [facility] gist Method Time Signature Creatine 359 (H) 38 - 176 [facility] Kinase (CK), S U/L LABORATORIES - [facility] Specimen Anatomical Collection Method Collection Time Receive d Time (Source) Location / / Volume Laterality 03/13/2016 5:06 AM 6 5:06 CDT AM CDT Sunday Juarez M.D. LAB BLOOD ADD-ON Performing Organization Address City/[facility] Code Phon e Number [facility] LABORATORIES - [address] [place] [address] [facility] (ABNORMAL) Electrolyte (Chem 4) Panel (03/13/2016 5:06 AM CDT) [facility] Method Time Signature Sodium, S 134 (L) 135 - 145 [facility] MMOL/L LABORATORIES - [facility] Potassium, S 3.5 (L) 3.6 - 5.2 [facility] MMOL/L LABORATORIES [facility] Creatinine 0.5 (L) 0.6 - 1.1 [facility] MG/DL LABORATORIES - [facility] eGFR >60 >60 [facility] Non-Black/Afric ML/MIN/BS LABORATORIES - [facility] Anion Gap 16 (H) 7 - 15 [facility] LABORATORIES [facility] Glucose, S 95 70 - 140 [facility] MG/DL LABORATORIES - [facility] Chloride, S 96 (L) 98 - 107 [facility] MMOL/L LABORATORIES [facility] HX Bicarbonate, 22 22 - 29 [facility] P/S MMOL/L [facility] - [facility] eGFR-Black/Afri >60 >60 [facility] can Nepalese ML/MIN/BS [facility] - [facility] BUN (Blood Urea 6 6 - 21 [facility] Nitrogen), S MG/DL LABORATORIES [facility] Specimen Anatomical Collection Method Collection Time Receive d Time (Source) Location / / Volume Laterality 03/13/2016 5:06 AM 6 5:06 CDT AM CDT Sunday Juarez M.D. LAB BLOOD ADD-ON Performing Organization Address City/State/ZIP Code Phon e Number [facility] LABORATORIES - [address] [place] [address] [facility] (ABNORMAL) Electrolyte (Chem 4) Panel (03/12/2016 6:36 AM CDT) [facility] Method Time Signature Sodium, S 134 (L) 135 - 145 [facility] MMOL/L LABORATORIES - [facility] Potassium, S 4.6 3.6 - 5.2 [facility] MMOL/L LABORATORIES - [facility] Chloride, S 96 (L) 98 - 107 [facility] MMOL/L [facility] HX Bicarbonate, 26 22 - 29 [facility] P/S MMOL/L LABORATORIES [facility] Creatinine 0.6 0.6 - 1.1 [facility] MG/DL LABORATORIES [facility] eGFR >60 >60 [facility] Non-Black/Afric ML/MIN/BS LABORATORIES - Nepalese A [facility] eGFR-Black/Afri >60 >60 [facility] can Nepalese ML/MIN/BS LABORATORIES - A [facility] BUN (Blood Urea 5 (L) 6 - 21 [facility] Nitrogen), S MG/DL LABORATORIES - [facility] Anion Gap 12 7 - 15 [facility] LABORATORIES - [facility] Glucose, S 84 70 - 140 [facility] MG/DL LABORATORIES - [facility] Specimen Anatomical Collection Method Collection Time Receive d Time (Source) Location / / Volume Laterality 03/12/2016 6:36 AM 6 6:36 CDT AM CDT Solange Ceja M.D. LAB BLOOD ADD-ON Performing Organization Address City/State/ZIP Code Phon e Number [facility] LABORATORIES - [address] [place], [place] [address] [facility] (ABNORMAL) CBC with Differential (03/12/2016 6:36 AM CDT) [facility] gist Method Time Signature Hemoglobin 12.4 12.0 - [facility] 15.5 G/DL LABORATORIES - [facility] Hematocrit 36.5 34.9 - [facility] 44.5 % LABORATORIES - [facility] Leukocytes 7.5 3.5 - [facility] 10.5 LABORATORIES - X10(9)/L [facility] Neutrophils 5.31 1.70 - [facility] 7.00 LABORATORIES - X10(9)/L [facility] Erythrocytes 3.56 (L) 3.90 - [facility] 5.03 LABORATORIES - X10(12)/L [facility] MCV 102.5 (H) 81.6 - [facility] 98.3 [place] LABORATORIES - [facility] RBC Distrib 13.9 11.9 - [facility] Width 15.5 % LABORATORIES - [facility] Platelet Count 263 150 - 450 [facility] X10(9)/L LABORATORIES - [facility] Lymphocytes 1.16 0.90 - [facility] 2.90 LABORATORIES - X10(9)/L [facility] Monocytes 0.73 0.30 - [facility] 0.90 LABORATORIES - X10(9)/L [facility] Eosinophils 0.25 0.05 - [facility] 0.50 LABORATORIES - X10(9)/L [facility] Basophils 0.02 0.00 - [facility] 0.30 LABORATORIES - X10(9)/L [facility] Specimen Anatomical Collection Method Collection Time Receive d Time (Source) Location / / Volume Laterality 03/12/2016 6:36 AM 6 6:36 CDT AM CDT Solange Ceja M.D. LAB BLOOD ADD-ON Performing Organization Address City/State/ZIP Code Phon e Number [facility] LABORATORIES - [address] [place] [address] [facility] Phosphorus Inorganic (03/12/2016 6:36 AM CDT) Analysis Performed At Patho logist Time Signature Phosphorus 3.5 2.5 - 4.5 [facility] (Inorganic), S MG/DL LABORATORIES [facility] Specimen Anatomical Collection Method Collection Time Receive d Time (Source) Location / / Volume Laterality 03/12/2016 6:36 AM 6 6:36 CDT AM CDT Solange Ceja M.D. LAB BLOOD ADD-ON Performing Organization Address City/[facility]/ZIP Code Phon e Number [facility] LABORATORIES - [address] [place] [address] [facility] (ABNORMAL) CK (Creatine Kinase) (03/12/2016 6:36 AM CDT) Patholo gist Method Time Signature Creatine 894 (H) 38 - 176 [facility] Kinase (CK), S U/L [facility] Specimen Anatomical Collection Method Collection Time Receive d Time (Source) Location / / Volume Laterality 03/12/2016 6:36 AM 6 6:36 CDT AM CDT Solange Ceja M.D. LAB BLOOD ADD-ON Performing Organization Address City/[facility]/ZIP Code Phon e Number [facility] LABORATORIES - [address] [place] [address] [facility] Magnesium (03/12/2016 6:36 AM CDT) P athologist Signature Magnesium, S 2.2 1.7 - 2.3 [facility] MG/DL [facility] Specimen Anatomical Collection Method Collection Time Receive d Time (Source) Location / / Volume Laterality 03/12/2016 6:36 AM 6 6:36 CDT AM CDT Solange Ceja M.D. LAB BLOOD ADD-ON Performing Organization Address City/State/ZIP Code Phon e Number [facility] LABORATORIES - [address] [place] [address] [facility] Calcium, Total (03/12/2016 6:36 AM CDT) P athologist Signature Calcium, 9.4 8.9 - 10.1 [facility] Total, S MG/DL [facility] Specimen Anatomical Collection Method Collection Time Receive d Time (Source) Location / / Volume Laterality 03/12/2016 6:36 AM 6 6:36 CDT AM CDT Solange Ceja M.D. LAB BLOOD ADD-ON Performing Organization Address City/[facility]/ZIP Code Phon e Number [facility] LABORATORIES - [address] [place] [address] [facility] Calcium, Total (03/11/2016 5:22 PM CDT) P athologist Signature Calcium, 9.1 8.9 - 10.1 [facility] Total, S MG/DL [facility] - [facility] Specimen Anatomical Collection Method Collection Time Receive d Time (Source) Location / / Volume Laterality 03/11/2016 5:22 PM 6 5:22 CDT PM CDT Solange Cjea M.D. LAB BLOOD ADD-ON Performing Organization Address City/[facility]/ZIP Code Phon e Number [facility] LABORATORIES - [address] [place] [address] [facility] (ABNORMAL) Magnesium (03/11/2016 5:22 PM CDT) Analysis Performed At Patho logist Time Signature Magnesium, S 1.5 (L) 1.7 - 2.3 [facility] MG/DL [facility] Specimen Anatomical Collection Method Collection Time Receive d Time (Source) Location / / Volume Laterality 03/11/2016 5:22 PM 6 5:22 CDT PM CDT Solange Ceja M.D. LAB BLOOD ADD-ON Performing Organization Address City/[facility]/ZIP Code Phon e Number [facility] LABORATORIES - [address] [place] [address] [facility] Phosphorus Inorganic (03/11/2016 5:22 PM CDT) Analysis Performed At Patho logist Time Signature Phosphorus 3.3 2.5 - 4.5 [facility] (Inorganic), S MG/DL LABORATORIES - [facility] Specimen Anatomical Collection Method Collection Time Receive d Time (Source) Location / / Volume Laterality 03/11/2016 5:22 PM 6 5:22 CDT PM CDT Solange Ceja M.D. LAB BLOOD ADD-ON Performing Organization Address City/[facility] Phon e Number [facility] LABORATORIES - [address] [place] [address] [facility] Vitamin B12 and Folate (03/11/2016 5:22 PM CDT) P athologist Signature Folate, S 8.0 >=4.0 [facility] MCG/L LABORATORIES - [facility] Vitamin B12 877 180 - 914 [facility] Assay, S NG/L LABORATORIES - [facility] Specimen Anatomical Collection Method Collection Time Receive d Time (Source) Location / / Volume Laterality 03/11/2016 5:22 PM 6 5:22 CDT PM CDT Solange Ceja M.D. LAB BLOOD NON ADD-ON Performing Organization Address City/[facility] Code Phon e Number [facility] LABORATORIES - [address] [place] [address] [facility] (ABNORMAL) Electrolyte (Chem 4) Panel (03/11/2016 5:22 PM CDT) Patholo gist Method Time Signature Chloride, S 94 (L) 98 - 107 [facility] MMOL/L LABORATORIES - [facility] HX Bicarbonate, 22 22 - 29 [facility] P/S MMOL/L LABORATORIES - [facility] Creatinine 0.5 (L) 0.6 - 1.1 [facility] MG/DL LABORATORIES - [facility] eGFR >60 >60 [facility] Non-Black/Afric ML/MIN/BS LABORATORIES - [place]e A [facility] Anion Gap 15 7 - 15 [facility] LABORATORIES - [facility] Glucose, S 83 70 - 140 [facility] MG/DL LABORATORIES - [facility] Sodium, S 131 (L) 135 - 145 [facility] MMOL/L LABORATORIES - [facility] Potassium, S 4.0 3.6 - 5.2 [facility] MMOL/L LABORATORIES - [facility] eGFR-Black/Afri >60 >60 [facility] can Nepalese ML/MIN/BS LABORATORIES - A [facility] BUN (Blood Urea 6 6 - 21 [facility] Nitrogen), S MG/DL [facility] Specimen Anatomical Collection Method Collection Time Receive d Time (Source) Location / / Volume Laterality 03/11/2016 5:22 PM 6 5:22 CDT PM CDT Solange Ceja M.D. LAB BLOOD ADD-ON Performing Organization Address City/State/ZIP Code Phon e Number [facility] LABORATORIES - [address] [place], [place] [address] [facility] DX Chest AP or PA and Lateral [...] Electronically signed by: ?? Rory Davies MD [id number] 11-Mar-2016 12:1 6 Narrative 03/11/2016 12:16 PM [...] clear. Electronically signed by: Rory Davies MD [id number] 11-Mar-2016 12:1 6 Solange Ceja M.D. IMG DIAGNOSTIC IMAGING PROCE DURES Microbiology Reports (03/11/2016 9:09 AM CDT) Specimen Anatomical Collection Method Collection Time Receive d Time (Source) Location / / Volume Laterality 03/11/2016 9:09 AM 6 9:[address] [facility] - 03/12/2016 7:56 AM CDT 11-MAR-2016 URINE, MIDSTREAM, ?SoftOrd# [id number] ?(Ordered 11-MAR-2016; Collec more 11-MAR-2016 09:09; Received 11-MAR-2016 09:35) ?[facility] ?BACTERIAL CULTURE, AEROBIC + CHAIDEZ SC ? (Reported 12-MAR-2016 07:56) FINAL ?Mixed yoshi. Procedure Note 02/27/2018 11-MAR-2016 URINE, MIDSTREAM, SoftOrd# [id number] (Ordered 11-MAR-2016; Collected 2015 09:09; Received 11-MAR-2016 09:35) [facility] BACTERIAL CULTURE, AEROBIC + SUSC (Rep orted 12-MAR-2016 07:56) FINAL Mixed yoshi. Isreal Vaca M.D. LAB MICROBIOLOGY - GENERAL O RDERABLES Performing Organization Address City/State/ZIP Code Phon e Number [facility] LABORATORIES - [address] [place], [place] [address] [facility] (ABNORMAL) Gram Stain, Confirmatory, Urine (03/11/2016 9:09 AM CDT) [facility] Method Time Signature Grams Stain, Positive (A) [facility] Confirmatory, LABORATORIES - Urine [facility] Comment: Many Gram-positive bacilli ? Bacteria on epithelial cells ? Specimen Anatomical Collection Method Collection Time Receive d Time (Source) Location / / Volume Laterality 03/11/2016 9:09 AM 6 9:09 CDT AM CDT Isreal Vaca M.D. LAB URINE ORDERABLES Performing Organization Address City/State/[facility] Code Phon e Number [facility] LABORATORIES - [address] [place], [place] [address] [facility] Gram Stain, Urine (03/11/2016 9:09 AM CDT) athologist Signature Gram's Stain, . [facility] Screen, U LABORATORIES - [facility] Comment: Screen positive. See Gram Stain Confirma tory for staining ? result. ? Specimen Anatomical Collection Method Collection Time Receive d Time (Source) Location / / Volume Laterality 03/11/2016 9:09 AM 6 9:09 CDT AM CDT Isreal Vaca M.D. LAB URINE ORDERABLES Performing Organization Address [facility] Phon e Number [facility] LABORATORIES - [address] [place] [address] [facility] Drug Abuse Survey, Urine (03/11/2016 9:09 AM CDT) [facility] Method Time Signature Ethanol Negative NEGATIVE [facility] Immunoassay LABORATORIES - Screen [facility] Barbiturates, Negative NEGATIVE [facility] Screen, U LABORATORIES [facility] Opiates Negative NEGATIVE [facility] Phencyclidine Negative NEGATIVE [facility] LABORATORIES [facility] Benzodiazepines, Negative NEGATIVE [facility] Screen, U LABORATORIES - [facility] Cocaine Negative NEGATIVE [facility] Immunoassay LABORATORIES - Screen [facility] Tetrahydrocannabi . NEGATIVE [facility] nol, U LABORATORIES - [facility] Comment: Presumptive Positive Amphetamines, U . NEGATIVE [facility] [place] BORATORIES [facility] Comment: Presumptive Positive Specimen Anatomical Collection Method Collection Time Receive d Time (Source) Location / / Volume Laterality 03/11/2016 9:09 AM 6 9:09 CDT AM CDT Isreal Vaca M.D. LAB URINE ORDERABLES Performing Organization Address [facility] Code Phon e Number [facility] LABORATORIES - [address] [place] [address] [facility] (ABNORMAL) Urinalysis with Microscopic (03/11/2016 9:09 AM CDT) [facility] Method Time Signature Source Midstream [facility] Osmolality, 290 150 - [facility] 24 HR, U 1150 LABORATORIES - MOSM/KG [facility] Glucose 12 0 - 15 [facility] MG/DL [facility] Protein, U 21 <22 MG/DL [facility] Comment: ? ADDITIONAL INFORMATIO N ? On 06/07/2014 the total protein assay me valentin changed resulting ? in approximately a 20% increase in prote in values. ? pH, 24 HR, U 5.9 4.5 - 8.0 [facility] LABOR ATORIES [facility] Appearance Normal Normal [facility] Protein/Osmolality 0.72 (H) <0.27 [facility] Comment: ? ADDITIONAL INFORMATIO N ? On 06/07/2014 the total protein assay me thod changed resulting ? in approximately a 20% increase in prote in values. ? Predicted 24 Hr Protein 499 MG/24 H [facility] LINIC [facility] Predicted Range 123-2020 MG/24 H [facility] Hemoglobin, QL Negative Negative [facility] Specimen Anatomical Collection Method Collection Time Receive d Time (Source) Location / / Volume Laterality 03/11/2016 9:09 AM 6 9:09 CDT AM CDT Isreal Vaca M.D. LAB URINE ORDERABLES Performing Organization Address City/State/ZIP Code Phon e Number [facility] - [address] [place], [place] [address] [facility] (ABNORMAL) Microscopic Manual (03/11/2016 9:09 AM CDT) Patholo gist Method Time Signature Casts, Hyaline 4-10 /LPF [facility] Squamous 1-3 /HPF [facility] Epithelial [facility] Microscopy Abnormal [facility] WBC 1-3 1-3 [facility] (Males); LABORATORIES - 1-10 [facility] (Females) CAMPUS /HPF Bacteria Present (A) [facility] Specimen Anatomical Collection Method Collection Time Receive d Time (Source) Location / / Volume Laterality 03/11/2016 9:09 AM 6 9:09 CDT AM CDT Isreal Vaca M.D. LAB URINE ORDERABLES Performing Organization Address City/[facility]/ZIP Code Phon e Number [facility] - [address] [place] [address] [facility] (ABNORMAL) CK (Creatine Kinase) (03/11/2016 8:50 AM CDT) [facility] Method Time Signature Creatine 767 (H) 38 - 176 [facility] Kinase (CK), S U/L [facility] Specimen Anatomical Collection Method Collection Time Receive d Time (Source) Location / / Volume Laterality 03/11/2016 8:50 AM 6 8:50 CDT AM CDT Joshua Shine M.D. LAB BLOOD ADD-ON Performing Organization Address City/[facility]/ZIP Code Phon e Number [facility] [address] [place] [address] [facility] Ethanol Level, Serum (03/11/2016 8:50 AM CDT) P athologist Signature Ethanol, S <10 <10 MG/DL [facility] Specimen Anatomical Collection Method Collection Time Receive d Time (Source) Location / / Volume Laterality 03/11/2016 8:50 AM 6 8:50 CDT AM CDT Joshua Shine M.D. LAB BLOOD NON ADD-ON Performing Organization Address City/[facility]/ZIP Code Phon e Number [facility] - [address] [place] [address] [facility] (ABNORMAL) Osmolality (03/11/2016 8:50 AM CDT) [facility] Method Time Signature Osmolality, S 263 (L) 275 - 295 [facility] MOSM/KG [facility] Specimen Anatomical Collection Method Collection Time Receive d Time (Source) Location / / Volume Laterality 03/11/2016 8:50 AM 6 8:50 CDT AM CDT Solange Ceja M.D. LAB BLOOD ADD-ON Performing Organization Address City/[facility]/ZIP Code Phon e Number [facility] LABORATORIES - [address] [place], [place] [address] [facility] CT Head without IV Contrast (03/11/2016 7:00 [...] S 78 (H) 8 - 43 U/L [facility] Specimen Anatomical Collection Method Collection Time Receive d Time (Source) Location / / Volume Laterality 03/11/2016 5:55 AM 6 5:55 CDT AM CDT Darryl Bahena M.D. LAB BLOOD ADD-ON Performing Organization Address City/[facility]/ZIP Code Phon e Number [facility] LABORATORIES - [address] [place], [place] [address] [facility] ALT (Alanine Aminotransferase) (03/11/2016 5:55 AM CDT) Patholo gist Method Time Signature Alanine 35 7 - 45 [facility] Aminotransferase U/L LABORATORIES - (ALT), S [facility] Specimen Anatomical Collection Method Collection Time Receive d Time (Source) Location / / Volume Laterality 03/11/2016 5:55 AM 6 5:55 CDT AM CDT Darryl Bahena M.D. LAB BLOOD ADD-ON Performing Organization Address City/[facility]/ZIP Code Phon e Number [facility] LABORATORIES - [address] [place], [place] [address] [facility] Alkaline Phosphatase (03/11/2016 5:55 AM CDT) P athologist Signature Alkaline 83 46 - 118 [facility] Phosphatase, S U/L [facility] Specimen Anatomical Collection Method Collection Time Receive d Time (Source) Location / / Volume Laterality 03/11/2016 5:55 AM 6 5:55 CDT AM CDT Darryl Bahena M.D. LAB BLOOD ADD-ON Performing Organization Address City/[facility]/ZIP Code Phon e Number [facility] LABORATORIES - [address] [place], [place] [address] [facility] (ABNORMAL) Bilirubin, Total (03/11/2016 5:55 AM CDT) Patholo gist Method Time Signature Bilirubin, 1.3 (H) <=1.2 [facility] Total, S MG/DL LABORATORIES [facility] Specimen Anatomical Collection Method Collection Time Receive d Time (Source) Location / / Volume Laterality 03/11/2016 5:55 AM 6 5:55 CDT AM CDT Darryl Bahena M.D. LAB BLOOD ADD-ON Performing Organization Address City/[facility]/ZIP Code Phon e Number [facility] LABORATORIES - [address] [place], [place] [address] [facility] (ABNORMAL) Albumin (03/11/2016 5:55 AM CDT) P athologist Signature Albumin, S 5.1 (H) 3.5 - 5.0 [facility] - [facility] Specimen Anatomical Collection Method Collection Time Receive d Time (Source) Location / / Volume Laterality 03/11/2016 5:55 AM 6 5:55 CDT AM CDT Darryl Bahena M.D. LAB BLOOD ADD-ON Performing Organization Address City/State/ZIP Code Phon e Number [facility] - [address] [address] [facility] documented in this encounter Visit Diagnoses Not on filedocumented in this encounter Additional Health Concerns Assessment Noted Time PHQ-9 Depression Total Score: 10 10/17/2015 9:46 AM CS T documented as of this encounter
--- OUTSIDE RECORDS SUMMARY | 2022-09-11 09:26 | XMS_ITS | Encounter Summary ---
:1960 Author Organization [facility] Address [address] [place] [address] Care Team Providers Name Role Phone Unavailable Primary Care Provider Unavailable Encounter Details Date Type Department Care Team Description 03/17/2014 Hospital Encounter HX [facility] Aurelia Milligan M.D. [address] [place] [address] (Wo rk) Social History Tobacco [...] Neurology Karin Ramachandran M.D., M.P.H. [address] [place], [place] [phone] (Wo rk) documented as of this encounter Visit Diagnoses Not on filedocumented in this encounter
--- OUTSIDE RECORDS SUMMARY | 2022-09-11 09:26 | XMS_ITS | Encounter Summary ---
:1960 Author Organization [facility] Address [address] [place] [address] Care Team Providers Name Role Phone Unavailable Primary Care Provider Unavailable Encounter Details Date Type Department Care Team Description 08/07/2013 Hospital Encounter HX [facility] Aurelia Núñez M.D. [address] [place] [address] (Wo rk) Social History Tobacco Use Types Packs/Day Years Used Date Smoking Tobacco: Never Assessed Sex Assigned at Date Recorded Female 07/10/2022 7:32 AM CDT documented as of this encounter Miscellaneous Notes Telephone Encounter - Conversion, Historical Provider Ser - 08/07/2013 12:00 AM CDT [id number] Last visit: BP Readings from Last 1 Encounters: 01/07/13 123/81 Out of thyroid medication, few left of blood pressure and ambien medication [phone] [facility] Document Id: [id number] documented in this encounter Plan of Treatment Upcoming Encounters Date Type Specialty Care Team Description 10/10/2022 Office Visit Neurology Karin Ramachandran M.D., M.P.H. [address], [place] [phone] (Wo rk) documented as of this encounter Visit Diagnoses Not on filedocumented in this encounter
--- OUTSIDE RECORDS SUMMARY | 2022-09-11 09:26 | XMS_ITS | Encounter Summary ---
:1960 Author Organization [facility] [place] [facility] Address [address] [place] [address] Care Team Providers Name Role Phone Unavailable Primary Care Provider Unavailable Encounter Details Date Type Department Care Team Description 02/15/2016 Hospital Encounter [facility] MAMMO-Aurelia Wood M.D. [address] [place] [address] (Wo rk) Social History Tobacco [...] Coding Summary-Paper Based CODING DATE: 02/21/[address] [facility] STATUS: * Discharged to Home [...] ROSARIO Date Saved: 02/21/2016 08:22 am Source[facility] Document Id: [id number] documented in this encounter Plan of Treatment Upcoming Encounters Date Type Specialty Care Team Description 10/10/2022 Office Visit Neurology Karin Ramachandran M.D., M.P.H. [address] [phone] (Wo rk) documented as of this encounter Visit Diagnoses Not on filedocumented in this encounter Additional Health Concerns Assessment Noted Time PHQ-9 Depression Total Score: 10 10/17/2015 9:46 AM CS T documented as of this encounter
--- OUTSIDE RECORDS SUMMARY | 2022-09-11 09:26 | XMS_ITS | Encounter Summary ---
:1960 Author Organization [facility] Address [address] [place] [address] Care Team Providers Name Role Phone Unavailable Primary Care Provider Unavailable Encounter Details Date Type Department Care Team Description 03/26/2017 Hospital Encounter HX [facility] Aurelia Grigsby M.D. [address] [place] [phone] (Wo rk) Social History Tobacco [...] Results Letter March 29, 2017 ZANDRA MAI [address] [place] [id number] Dear ZANDRA MAI, I am pleased to [...] an e-mail account, join the other [address] [facility] patients who use the Patient Online Services to conveniently access their lab results by calling [phone] to sign up for an account. It [...] 304 03/26/2017 150 - 450 [facility] Negative 03/26/2017 Negative - Sincerely, FAYE YADAV [facility] [place] [address] Electronic Signature Electronically Signed By: FAYE YADAV MD On: March 29, 2017 This document has images extracted. Source: [facility] POWERCHART Document Id: [id number] Electronically signed by Conversion, [facility] Transcribing Operator Head [id number] at 05/07/2017 5:05 AM CDT documented in this encounter Plan of Treatment Upcoming Encounters Date Type Specialty Care Team Description 10/10/2022 Office Visit Neurology Karin Ramachandran M.D., M.P.H. [address] [place], [place] [phone] (Wo rk) documented as [...] X109L Erythrocytes 4.49 3.90 - POWERCHART 5.03 H4709M Hemoglobin 15.6 (H) 12.0 - POWERCHART 15.5 [...] PCR, S (medicare) (03/26/2017 8:12 AM CDT) P athologist Signature HXHCV Ab Negative Negative POWERCHART [facility] Comment: Ygeoqx-tf-irwlyd ratio is <1.00. Test Performed by: [facility] [address] [place] [id number] Specimen (Source) Anatomical Collection Method Collection Time Re ceived Time Location / / Volume Laterality Blood 03/26/2017 8:12 AM CDT Faye Yadav M.D. LAB MICROBIOLOGY - BLOOD ORD ERABLES Performing Organization Address City/State/ZIP Code Phon e Number POWERCHART Thyroid-Stimulating Hormone-Sensitive (s-TSH) (03/26/2017 8:12 AM CDT) P athologist Signature TSH 0.94 0.27 - 4.20 POWERCHART (Thyrotropin) MIUL Comment: Biotin has been identified by the [...] City/State/ZIP Code Phon e Number POWERCHART (ABNORMAL) CMP [...] POWERCHART MGDL eGFR Black/ >60 >=60 POWERCHART [place] [id number] 2 HXeGFR (MDRD) >60 >=60 POWERCHART [id number] 2 Comment: Results are in mL/min/1.73m CKD [...]
--- OUTSIDE RECORDS SUMMARY | 2022-09-11 09:26 | XMS_ITS | Encounter Summary ---
:1960 Author Organization [facility] Address [address] [place] [address] Care Team Providers Name Role Phone Unavailable Primary Care Provider Unavailable Encounter Details Date Type Department Care Team Description 05/19/[address] [facility] Aurelia Grigsby M.D. [address] [place], [place] [phone] (Wo rk) Social History [...] Follow-Up Visit 02 March 2015 ZANDRA MAI [address] [place] [id number] Dear ZANDRALON MORALESJOHANNE, Our records indicate that you are due for a follow up appointment with Dr. Yadav. Please call us to make an appointment at your convenience. Our telephone number for scheduling an appointment is [phone]. Your health is important to us. If you have already made an appointment for this or have had the procedure done, please disregard this notice. Sincerely, SHENG WHYTE Electronic Signature Electronically Signed By: SHENG WHYTE On: 02 March 2015 This document has images extracted. Source: [facility] POWERCHART Document Id: [id number] Miscellaneous - Anita Roa L.P.N. - 06/03/2014 11:40 AM CDT *General Message Document Contains Addenda Addendum by NAITA ROA LPN on 04 June 2014 09:07:31 CDT Message relayed to pt, voiced understanding/agreement Addendum by FAYE YADAV MD on 03 June 2014 17:38:11 CDT From: FAYE YADAV MD To: [facility]; Sent: 06/03/2014 17:38:11 CDT Subject: RE: *General Message Okay, I recommend follow up with allergy even if symptoms have resolved again by then. She should beseen sooner in primary care or if symptoms worsen. From: ANITA ROA LPN ([facility]) To: FAYE YADAV MD; Sent: 06/03/2014 11:40:59 CDT Subject: *General Message FYI - Pt just wanted to give you an update. Cancelled her ENT appt that was scheduled for May 09 because she had her voice back. Is now losing her voice again, and feels heavy chested. Has an appt in with metal fabricating shop helper scheduled for June 21 Source: [facility] POWERCHART Document Id: [id number] Electronically signed by [facility] Manager Online [id number] at 04/23/2017 2:26 AM CDT Nancycellpepper - Faye Yadav M.D. - 05/25/2014 5:02 PM CDT Normal Results Letter 25 May 2014 ZANDRA MAI [address] [place] [id number] Dear ZANDRA MAI, I am pleased to [...] 05/19/2014 144 01/07/2013 135 - 145 C4, Functional-[place] (unit/mL) (H) 50 05/19/2014 22 - 45 - Sincerely, FAYE YADAV [address] [place] [address] Electronic Signature Electronically Signed By: FAYE YADAV MD On: 25 May 2014 This document has images extracted. Source: [facility] POWERCHART Document Id: [id number] Electronically signed by Conversion, [facility] Manager Online [id number] at 04/23/2017 2:26 AM CDT documented in this encounter Plan of Treatment Upcoming Encounters Date Type Specialty Care Team Description 10/10/2022 Office Visit Neurology Karin Ramachandran M.D., M.P.H. [address] [phone] (Wo rk) documented as [...] Results (ABNORMAL) Sodium (05/19/2014 10:48 AM CDT) athologist Signature Sodium, S 131 (L) 135 - 145 POWERCHART MMOLL Specimen (Source) Anatomical Collection Method Collection Time Re ceived Time Location / / Volume Laterality Blood 05/19/2014 10:48 AM CDT Faye Yadav M.D. LAB BLOOD ADD-ON Performing Organization Address City/State/ZIP Code Phon e Number POWERCHART (ABNORMAL) C4 Complement, Functional (05/19/2014 10:48 AM CDT) athologist Signature C4 Complement, 50 (H) 22 - 45 POWERCHART Functional, S UNITML Comment: Test Performed by: [facility] - [address] [address] Behavioral Health Case Manager: Yuri alston III, M.D. Specimen (Source) Anatomical [...]
--- OUTSIDE RECORDS SUMMARY | 2022-09-11 09:26 | XMS_ITS | Encounter Summary ---
:1960 Author Organization [facility] Address [address] [place] [address] Care Team Providers Name Role Phone Unavailable Primary Care Provider Unavailable Encounter Details Date Type Department Care Team Description 03/20/2017 Hospital Encounter HX [facility] Aurelia Fernández M.D. [address] [place] [address] (Wo rk) Social History Tobacco [...] Yadav M.D. - 03/20/2017 12:35 PM CDT [id number] CHIEF COMPLAINT / REASON FOR VISIT Med refills. HISTORY OF PRESENT ILLNESS Chip is a 56-year-old female who presents to the clinic today for medication refills for hypothyroidism, alcohol abuse, and tobacco abuse. She tells us that her has been diagnosed with leukemia about 5 weeks ago and is being treated at [facility]. This has been a major stressorin [...] tablet. Levothyroxine 88 mcg oral tablet. EpiPen 2-Erg 0.3 mg injectable kit. Aspirin 81 mg [...] behalf by Curly Brownlee, a trained medical imaging technologist. The creation of this record is based on the scribe's personal observations and the provider's statements to them. This document has been checked and approved by the attending provider. Faye Yadav M.D./carrie Electronically Signed By: FAYE YADAV MD On: 03/20/2017 07:26 PM Modified by and Electronically Signed by: FAYE YADAV MD On: 03/20/2017 07:26 PM Source: [facility] MHSDOLBEYNONRADSYS Document Id: [id number] Addendum by FAYE YADAV MD on March 20, 2017 19:28 CDT Past medical history, social history, and family history are reviewed and updated in the electronichealth record. Modified by and Electronically Signed by: FAYE YADAV MD On: 03/20/2017 07:28 PM Source: [facility] POWERCHART Document Id: [id number] Addendum by FAYE YADAV MD on March 20, 2017 19:28 CDT Past medical history, social history, and family history are reviewed and updated in the electronichealth record. Modified by and Electronically Signed by: FAYE YADAV MD On: 03/20/2017 07:28 PM Source: [facility] CoolSystemsCHART Document Id: [id number] documented in this encounter Miscellaneous Notes Miscellaneous - Susanne Pompa R.N. - 06/19/2017 3:44 PM CDT Med Management Document Contains Addenda Addendum by SHENG WHYTE on June 25, 2017 18:17:16 CDT noted. thanks! Addendum by MARCO ANTONIO RANDLE LPN on June 25, 2017 16:11:48 CDT From: MARCO ANTONIO RANDLE LPN ([facility] Nurse (SOLAR FABRICATION TECHNICIAN/[facility])) To: TIO Brown Rail Project Engineer; Sent: 06/25/2017 16:11:48 CDT Subject: FW: Med Management Addendum by FAYE YADAV MD on June 25, 2017 12:43:48 CDT From: FAYE YADAV MD To: [facility] Nurse (SOLAR FABRICATION TECHNICIAN/AUTOMATIC DOOR MECHANIC); Sent: 06/25/2017 12:43:48 CDT Subject: RE: Med Management Addendum by FAYE YADAV MD on June 25, 2017 12:43:43 CDT 01/2018 is fine. Thanks. Addendum by MARCO ANTONIO RANDLE LPN on June 25, 2017 10:38:15 CDT From: MARCO ANTONIO RANDLE LPN ([facility] Nurse (SOLAR FABRICATION TECHNICIAN/AUTOMATIC DOOR MECHANIC)) To: FAYE YADAV MD; Sent: 06/25/2017 10:38:15 CDT Subject: FW: Med Management Addendum by MARCO ANTONIO RANDLE LPN on June 25, 2017 10:37:24 CDT unable to assess. will route to PCP. Addendum by SHENG WHYTE on June 25, 2017 08:13:17 CDT From: SHENG WHYTE ([facility] Rail Project Engineer) To: [facility] Nurse (TABITHA/AUTOMATIC DOOR MECHANIC); Sent: 06/25/2017 08:13:17 CDT Subject: RE: Med [...] R.N. ( Elan/Key/Matt Team Nurse (RN)) To: [place] Rail Project Engineer; Sent: 06/20/2017 08:10:33 CDT Subject: FW: Med Management Please schedule patient for follow up. Addendum by FAYE YADAV MD on June 19, 2017 16:46:08 CDT From: FAYE YADAV MD Sent: 06/19/2017 16:46:08 CDT Subject: RE:Med Management Approved with modifications: Order:gabapentin (gabapentin 300 mg oral capsule) 1 cap(s) PO 3xDay Qty: 90 cap(s) Refills: 0 Substitutions Allowed Route To [id number] Signed by FAYE YADAV MD 06/19/2017 16:46:01 overdue for f/u please arrange From: SUSANNE POMPA RN (TIO Ansari/Key/Matt Team Nurse (RN)) To: FAYE YADAV MD; Sent: 06/19/2017 15:44:33 CDT Subject: Med Management On hold pending signature Order:gabapentin (gabapentin 300 mg oral capsule) 1 cap(s) PO 3xDay Qty: 90 cap(s) Refills: 1 Substitutions Allowed Route To [id number] NOT REVIWED BY RN PROTOCOL 24hr SURGE Source: [facility] POWERCHART Document Id: [id number] Telephone Encounter - Conversion, Historical Provider Ser [...] tab(s) Refills: 11 Substitutions Allowed Route To [id number] Signed by FAYE YADAV MD 05/15/2017 15:57:30 Addendum by ATTILA BARON CMA on May 15, 2017 14:30:11 CDT From: ATTILA BARON CMA ([facility] Nurse ([facility])) To: FAYE YADAV MD; Sent: 05/15/2017 14:30:11 CDT Subject: FW: *Phone Message Last office visit 03/20/17, Please review and advise. Addendum by ATTILA BARON CMA on May 15, 2017 14:29:20 CDT On hold pending signature Order:levothyroxine (levothyroxine 88 mcg (0.088 mg) oral tablet) 1 tab(s) PO Daily Qty: 30 tab(s) Refills: 11 Substitutions Allowed Route To Pharmacy - [id number] TSH: 0.94 mIU/L (03/26/17) From: RICHARD MORRISON ([facility] Rail Project Engineer) To: [facility] Nurse (SOLAR FABRICATION TECHNICIAN/MEÑO); Sent: 05/15/2017 14:02:00 CDT Subject: *Phone Message [...] back cell phone number ( ) Source: [facility] POWERCHART Document Id: [id number] Telephone Encounter - Conversion, Historical Provider Ser - 03/28/2017 11:39 AM CDT *Phone Message Document Contains Addenda Addendum by MARCO ANTONIO RANDLE LPN on March 28, 2017 11:45:44 CDT From: MARCO ANTONIO RANDLE LPN ([facility] Nurse (SOLAR FABRICATION TECHNICIAN/AUTOMATIC DOOR MECHANIC)) To: SHANTELL REVELES PA-C; Sent: 03/28/2017 11:45:44 CDT Subject: FW: *Phone Message Please advise in PCP absense. Addendum by MARCO ANTONIO RANDLE LPN on March 28, 2017 11:45:02 CDT Patient had labs done on March 26. TSH was 0.94 From: SHENG WHYTE ([facility] Rail Project Engineer) To: [facility] Nurse (SOLAR FABRICATION TECHNICIAN/AUTOMATIC DOOR MECHANIC); Sent: 03/28/2017 11:39:05 CDT ! Subject: *Phone [...] dose? Advice/Action: please call her NATHALIE at [phone]. Source used: ( ) Verbalizes understanding of [...] back cell phone number ( ) Source: [facility] POWERCHART Document Id: [id number] Miscellaneous - Faye Yadav M.D. - 03/20/2017 7:29 PM CDT Ambulatory Patient Summary Delfino Brown [address] [place] [phone] Visit Information Name: CARMENCHIP WHITING JACQUI [facility] Number: [id number] Current Date: 03/20/2017 19:29:32 Physicians [...] Wheezing use with spacer chamber Routed to [address] [address] amLODIPine (amLODIPine 10 mg oral tablet) 1 Tablet(s), Oral, once a day Routed to [address] [address] aspirin (aspirin 81 mg oral [...] Sting This is a CHANGE Routed to [address] [address] folic acid (folic acid 0.4 mg oral tablet) 400 mcg, Oral, once a day Routed to [address] [address] gabapentin (gabapentin 300 mg oral capsule) 1 cap, Oral, three times a day Routed to [address] [address] ibuprofen (ibuprofen 200 mg oral [...] 30-60 minutes before trigger food Routed to [address] [address] polyethylene glycol 3350 (polyethylene glycol 3350 oral powder for reconstitution) See Instructions Mix and use as directed for colonoscopy prep. thiamine (thiamine 100 mg oral tablet) 1 Tablet(s), Oral, once a day Routed to [address] [address] Stop Taking the Following Medications: [...] if you dont have one. Go to [email or web address] and click on Create Your Account. Then, follow the directions to complete the online form. Youll be asked for your [facility] number which you can find at the top of this document. Your Goals/Additional instructions: Source: [facility] POWERCHART Document Id: [id number] Miscellaneous - Faye Yadav M.D. - 03/20/2017 7:29 PM CDT Ambulatory Discharge Medication List [address] [id number] Visit Information Name: SERGEI CHIP JACQUI [facility] Number: [id number] Current Date: 03/20/2017 19:29:30 Attending [...] Wheezing use with spacer chamber Routed to [address] [address] amLODIPine (amLODIPine 10 mg oral tablet) 1 Tablet(s), Oral, once a day Routed to [address] [address] aspirin (aspirin 81 mg oral [...] This is a CHANGE Routed to [address] [place] [address] folic acid (folic acid 0.4 mg oral tablet) 400 mcg, Oral, once a day Routed to [address] [address] gabapentin (gabapentin 300 mg oral capsule) 1 cap, Oral, three times a day Routed to [address] [address] ibuprofen (ibuprofen 200 mg oral [...] 30-60 minutes before trigger food Routed to [address] [address] polyethylene glycol 3350 (polyethylene glycol 3350 oral powder for reconstitution) See Instructions Mix and use as directed for colonoscopy prep. thiamine (thiamine 100 mg oral tablet) 1 Tablet(s), Oral, once a day Routed to [address] [address] Stop Taking the Following Medications: [...] MD Signed On:20-MAR-2017 19:29:25 Additional Information: Source: [facility] POWERCHART Document Id: [id number] Miscellaneous - Mami Saldaña, C.M.AEvans - 03/20/2017 1:12 PM CDT Adult Compensator Worker Intake/History Adult Compensator Worker Intake/History Entered On: 03/20/2017 13:13 CDT Performed On: 03/20/2017 13:12 CDT by MAMI SALDAÑA [facility] Intake Chief Complaint : medication refills mammogram [...] Mass Index : 23.87 kg/m2 MAMI SALDAÑA [facility] - 03/20/2017 13:12 CDT General Info Information Given By : Patient Languages : Hebrew Is Patient Female and 13-50 no hysterectomy : No MAMI SALDAÑA [facility] - 03/20/2017 13:12 CDT Subjective Pain Symptoms : No MAMI SALDAÑA [facility] - 03/20/2017 13:12 CDT Dependent Habits Exposure [...] Daily Amount : 3-4 cups MAMI SALDAÑA AUTOMATIC DOOR MECHANIC - 03/20/2017 13:12 CDT Source: [facility] POWERCHART Document Id: [id number] CDT!36 [place] - Mami Saldaña C.M.A. - [...] : Not difficult at all MAMI SALDAÑA [facility] - 03/20/2017 13:11 CDT [facility]: [facility] Document Id: [id number] CDT!13 Sean - Mami Saldaña C.MLaw - [...] Yes Alcohol Use : Yes MAMI SALDAÑA [facility] - 03/20/2017 13:10 CDT Caffeine Use Grid Caffeine Use : Current Type : Coffee Frequency : Daily Amount : 3-4 cups MAMI SALDAÑA [facility] - 03/20/2017 13:10 CDT AUDIT Tool How Often Do You Have A Drink : 4 or more times a week How Many Drinks in a Day When Drinking : 3 or 4 Six or More Drinks On One Occassion : Never Audit Phase 1 Score : 5 MAMI SALDAÑA [facility] - 03/20/2017 13:10 CDT Psychosocial Domestic Abuse Concerns : None Behavioral Health Screen/Safety Assmt : No Anglican Preference : Unknown MAMI SALDAÑA [facility] - 03/20/2017 13:10 CDT Advance Directive Advanced Directives : No Advance Directive Additional Information : No MAMI SALDAÑA [facility] - 03/20/2017 13:10 CDT Educ Needs Learning Style Preference Adult Grid Patient : None Family : None MAMI SALDAÑA [facility] - 03/20/2017 13:10 CDT Source: [facility] Plan [facility] POWERCHART Document Id: [id number] CDT!42 documented in this encounter Plan of Treatment Upcoming Encounters Date Type Specialty Care Team Description 10/10/2022 Office Visit Neurology Karin Ramachandran M.D., M.P.H. [address] [phone] (Wo rk) documented as of this encounter Visit Diagnoses Not on filedocumented in this encounter Additional Health Concerns Assessment Noted Time PHQ-9 Depression Total Score: 6 03/20/2017 1:11 PM CDT documented as of this encounter
--- OUTSIDE RECORDS SUMMARY | 2022-09-11 09:26 | XMS_ITS | Encounter Summary ---
:[address] [facility] Address [address] [place] [address] Care Team Providers Name Role Phone Unavailable Primary Care Provider Unavailable Encounter Details Date Type Department Care Team Description 05/23/2016 Hospital Encounter HX [facility] Aurelia Yadav M.D. [address] [place] [address] (Wo rk) Social History Tobacco [...] frequency Screening Hepatitis C Once Born Between 8566-7615 due 05/23/16 One-time only Due In Future [...] 20-75 on 10/17/15. Satisfied by CONY RODRIGUEZ MT([facility]) Screening Colonoscopy or Flex Sig or Occult Blood on 11/14/15. Satisfied by FAYE YADAV MD Screening Diabetes Blood Glucose every 3 years Age 18-70 (Risk Factors) on 10/17/15. Satisfied by CONY RODRIGUEZ MT([facility]) Screening Mammogram every 1 year Women 40-75 on 02/15/16. Satisfied by BRANNON --ANITA Screening Pap Smear every 3 years Women Age 30-65 on 10/17/15. Satisfied by JAYE BRAY DPAnn Vaccine: Flu every 1 year on 10/03/15. Satisfied by MARCO ANTONIO RANDLE [facility] SYSTEMS REVIEW -3 days of vagintal itch [...] YADAV MD On: 05/23/2016 01:39 PM Source: [facility] POWERCHART Document Id: [id number] documented in this encounter Miscellaneous Notes Miscellaneous [...] Refills: 1 Substitutions Allowed Route To Pharmacy [facility][id number] Signed by FAYE YADAV MD 02/04/2017 17:12:02 From: MONICA RODRIGUES RN ([facility]/Stephanie Nurse (RN)) To: FAYE YADAV MD; Sent: 02/04/2017 14:52:55 CDT Subject: Med Management SHARON 05/23/16. Scheduled for followup on 03/20/17. Last TSH: TSH: 1.84 10/17/15 On hold pending signature Order:levothyroxine (levothyroxine 88 mcg (0.088 mg) oral tablet) 1 tab(s) PO Daily Qty: 30 tab(s) Refills: 1 Substitutions Allowed Route To [facility][id number] Source: [facility] [place] Document Id: [id number] Electronically signed by Conversion, [facility] Quality Control Analyst [id number] at 04/20/2017 6:40 PM CDT Miscellaneous - Conversion, Historical Provider Ser - 12/18/2016 9:01 AM HAIRSPRING CUTTER Schedule Follow-Up Visit December 18, 2016 [place]IP [place] [id number] [place] [id number] Dear CHIP MAI, [facility] would like to better assist you with managing your care. By seeing your primary care team for regular check ups and labs, we can be sure you will get the care you need when you need it. Therefore, our records indicate that you're due for: Blood Pressure Follow Up with Dr. Yadav Please call our appointment desk at [phone] or my direct line at [phone]. Sincerely, ARNAV JEWELL Electronic Signature Electronically Signed By: ARNAV JEWELL On: December 18, 2016 This document has images extracted. Source: [facility] ReelGenieCHART Document Id: [id number] Miscellaneous - Dylan Painting R.N. - 10/02/2016 1:57 PM CST Med Management Document Contains Addenda Addendum by FAYE YADAV MD on October 03, 2016 11:42:13 HAIRSPRING CUTTER From: FAYE YADAV MD Sent: 10/03/2016 11:42:13 HAIRSPRING CUTTER Subject: RE:Med Management Approved Order:gabapentin (gabapentin 300 mg oral capsule) 1 cap(s) PO 3xDay Qty: 90 cap(s) Refills: 1 Substitutions Allowed Route To [facility] #[id number] Signed by FAYE YADAV MD 10/03/2016 11:42:05 Approved Order:levothyroxine (levothyroxine 88 mcg (0.088 mg) oral tablet) 88 mcg PO Daily Qty: 30 each Refills: 1 Substitutions Allowed Route To [facility] #[id number] Signed by FAYE YADAV MD 10/03/2016 11:42:04 Addendum by JUNIE LOPEZ RN on October 03, 2016 08:35:46 HAIRSPRING CUTTER From: JUNIE LOPEZ RN ( [place]/Stephanie Nurse (RN)) To: FAYE YADAV MD; Sent: 10/03/2016 08:35:46 HAIRSPRING CUTTER Subject: Med Management Please advise per BELL msg below. All other medications that pt is requesting have remaining refills left at pharmacy. Thank you. On hold pending signature Order:levothyroxine (levothyroxine 88 mcg (0.088 mg) oral tablet) 88 mcg PO Daily Qty: 30 each Refills: 1 Substitutions Allowed Route To [facility][id number] On hold pending signature Order:gabapentin (gabapentin 300 mg oral capsule) 1 cap(s) PO 3xDay Qty: 90 cap(s) Refills: 1 Substitutions Allowed Route To [facility][id number] Addendum by SHENG WHYTE on October 03, 2016 08:19:25 HAIRSPRING CUTTER From: SHENG WHYTE ([facility] [employer]) To: TIO Arevalo Nurse (RN); Sent: 10/03/2016 08:19:25 HAIRSPRING CUTTER Subject: FW: Med Management spoke with pt and she is scheduled for 11/14/[address] Yadav. please ensure she will have enoughrefills on all of her meds (BP, thyroid, abdirahman, Vit B.) please send all refills to [facility] in [place]. Addendum by JUNIE LOPEZ RN on October 02, 2016 14:08:03 HAIRSPRING CUTTER From: JUNIE LOPEZ RN ([facility]/Stephanie Nurse (RN)) To: [employer]; Sent: 10/02/2016 14:08:03 HAIRSPRING CUTTER Subject: FW: Med Management Please call and assist in scheduling pt or send second letter per msg below from Dr. Yadav, thank you! Addendum by FAYE YADAV MD on October 02, 2016 14:07:22 HAIRSPRING CUTTER From: FAYE YADAV MD To: TIO Arevalo Nurse (RN); Sent: 10/02/2016 14:07:22 HAIRSPRING CUTTER Subject: RE: Med Management Addendum by FAYE YADAV MD on October 02, 2016 14:07:20 HAIRSPRING CUTTER Approved Order:gabapentin (gabapentin 300 mg oral capsule) 1 cap(s) PO 3xDay Qty: 45 cap(s) Refills: 0 Substitutions Allowed Route To Pharmacy - [facility] #[id number] Signed by FAYE YADAV MD 10/02/2016 14:07:16 needs to make f/u appt for further refills. Please sent second letter. From: DYLAN PAINTING RN ([facility]/Stephanie Nurse (RN)) To: FAYE YADAV MD; Sent: 10/02/2016 13:57:15 HAIRSPRING CUTTER Subject: Med Management On hold pending signature Order:gabapentin (gabapentin 300 mg oral capsule) 1 cap(s) PO 3xDay Qty: 45 cap(s) Refills: 0 Substitutions Allowed Route To Pharmacy - [facility] #[id number] Patient overdue for appointment. Letter sent on 07/27/2016; patient called on 08/08/2016. No follow up appointment made Please review and recommend Two weeks pended Source: [facility] POWERCHART Document Id: [id number] Electronically signed by Conversion, [facility] Quality Control Analyst [id number] at 04/20/2017 6:40 PM CDT Telephone Encounter - Conversion, Historical Provider Ser - 08/08/2016 2:13 PM CDT *Phone Message Document Contains Addenda Addendum by RICHARD MORRISON on August 08, 2016 14:28:31 CDT done Addendum by MONICA RODRIGUES RN on August 08, 2016 14:21:32 CDT From: MONICA RODRIGUES RN ([facility]/Stephanie Nurse (RN)) To: [employer]; Sent: 08/08/2016 14:21:32 CDT Subject: FW: *Phone [...] this time. From: RICHARD MORRISON ([employer]) To: TIO Marino/Stephanie Nurse (RN); Sent: 08/08/2016 [...] letter mailed to pt Addendum by MONICA ORDRIGUES RN on July 26, 2016 12:19:26 CDT From: MONICA RODRIGUES RN ([facility]/Stephanie Nurse (RN)) To: [employer]; Sent: 07/26/2016 12:19:26 CDT Subject: FW: Med [...] 0 Substitutions Allowed Route To Pharmacy - [facility] #[id number] Signed by FAYE YADAV MD 07/26/2016 12:16:42 [...] 0 Substitutions Allowed Route To Pharmacy - [facility] #[id number] Source: [facility] POWERCHART Document Id: [id number] Miscellaneous - Conversion, Historical Provider Ser - 07/27/2016 9:14 AM CDT Schedule Follow-Up Visit July 27, 2016 [place] [address] [place] [id number] Dear CHIP MAI, Our records indicate that you are due for a follow up appointment with Dr. Yadav. Please call us to make an appointment at your convenience. Our telephone number for scheduling an appointment is [phone]. Your health is important to us. If you have already made an appointment for this or have had the procedure done, please disregard this notice. Sincerely, RICHARD MORRISON Electronic Signature Electronically Signed By: RICHARD MORRISON On: July 27, 2016 This document has images extracted. Source: [facility] POWERCHART Document Id: [id number] Miscellaneous - Junie Lopez R.N. - 07/26/2016 11:48 AM CDT Med Management Document Contains Addenda Addendum by RICHARD MORRISON on July 27, 2016 09:14:29 CDT Appt letter mailed to pt Addendum by MONICA RODRIGUES RN on July 26, 2016 12:19:26 CDT From: MONICA RODRIGUES RN ([facility]/Stephanie Nurse (RN)) To: [employer]; Sent: 07/26/2016 12:19:26 CDT Subject: FW: Med [...] 0 Substitutions Allowed Route To Pharmacy - [facility] #[id number] Signed by FAYE YADAV MD 07/26/2016 12:16:42 [...] 0 Substitutions Allowed Route To Pharmacy - [facility] #[id number] Source: [facility] [place] Document Id: [id number] Electronically signed by Conversion, [facility] Quality Control Analyst [id number] at 04/20/2017 6:40 PM CDT Miscellaneous - Jesenia Dong C.M.A. - 07/17/2016 5:57 PM CDT *General Message Document Contains Addenda Addendum by JESENIA DONG CMA on July 18, 2016 10:18:50 CDT Spoke with patient and informed her of message below. Patient has already made an appt to be seen in [place]. Addendum by FAYE YADAV MD on July 18, 2016 07:27:47 CDT From: FAYE YADAV MD To: [facility] Nurse (TABITHA/MEÑO); Sent: 07/18/2016 07:27:47 CDT [...] next appt. Please advise. Source: [employer] Document Id: [id number] Electronically signed by Conversion, [facility] Quality Control Analyst [id number] at 04/20/2017 6:40 PM CDT Miscellaneous - Faye Yadav M.D. - 05/23/2016 1:40 PM CDT Ambulatory Patient Summary [address] [id number] Visit Information Name: CHIP MAI [facility] Number: [id number] Current Date: 05/23/2016 13:40:26 Physicians [...] Oral, once a day New Routed to [address] [address] aspirin (aspirin 81 mg oral delayed release [...] if you dont have one. Go to [email or web address] and click on Create Your Account. Then, follow the directions to complete the online form. Youll be asked for your [facility] number which you can find at the top of this document. Your Goals/Additional instructions: Source: [facility] POWERCHART Document Id: [id number] Miscellaneous - Faye Yadav M.D. - 05/23/2016 1:40 PM CDT Ambulatory Discharge Medication List [address] [id number] Visit Information Name: CHIP MAI [facility] Number: [id number] Visit Date: 05/23/2016 13:40:25 Attending [...] Oral, once a day New Routed to [place] [id number] [address] aspirin (aspirin 81 mg oral [...] MD Signed On:23-MAY-2016 13:40:21 Additional Information: Source: [facility] POWERCHART Document Id: [id number] Miscellaneous - Faye Yadav M.D. - 05/23/2016 [...] (*) Present (None Seen - ) Source: [facility] [place] Document Id: [id number] Electronically signed by [facility]ela [facility] Quality Control Analyst [id number] at 04/20/2017 6:40 PM CDT Miscellaneous - Demetrio Hughes L.P.N. 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 Document Id: [id number] CDT!37 documented in this encounter Plan of Treatment Upcoming Encounters Date Type Specialty Care Team Description 10/10/2022 Office Visit Neurology Karin Ramachandran M.D., M.P.H. [address] [place] [phone] (Wo rk) documented as of this encounter Procedures Procedure Name Priority Date/Time Associated Diagnosis Comme nts URINALYSIS, Routine 05/23/2016 9:08 AM Results f or this MIDSTREAM, WITH CDT procedure ar e in CULTURE IF the results INDICATED section. documented in this encounter Results (ABNORMAL) Urinalysis, Midstream, with culture if indicated (05/23/2016 9:08 AM CDT) [facility] gist Method Time Signature Clarity Clear Clear POWERCHART HXUr Color Yellow Colorless POWERCHART Glucose Negative Negative POWERCHART MGDL HXBILIRUBIN Negative Negative POWERCHART Ketones, QL(U) Negative Negative POWERCHART MGDL Specific 1.010 POWERCHART [place], POCT, U HXBLOOD Negative Negative POWERCHART pH, [...] First 05/23/2016 9:08 AM Voided CDT Faye aYdav M.D. LAB URINE ORDERABLES Performing Organization Address City/State/ZIP Code Phon e Number POWERCHART documented in this encounter Visit Diagnoses Not on filedocumented in this encounter Additional Health Concerns Assessment Noted Time PHQ-9 Depression Total Score: 5 05/01/2016 10:23 AM CD T documented as of this encounter
--- OUTSIDE RECORDS SUMMARY | 2022-09-11 09:26 | XMS_ITS | Encounter Summary ---
:1960 Author Organization [facility] Address [address] [place] [address] Care Team Providers Name Role Phone Unavailable Primary Care Provider Unavailable Encounter Details Date Type Department Care Team Description 01/12/2013 Hospital Encounter [facility] Aurelia Núñez M.D. [address] [place] [address] (Wo rk) Social History Tobacco Use Types Packs/Day Years Used Date Smoking Tobacco: Never Assessed Sex Assigned at Date Recorded Female 07/10/2022 7:32 AM CDT documented as of this encounter Plan of Treatment Upcoming Encounters Date Type Specialty Care Team Description 10/10/2022 Office Visit Neurology Karin Ramachandran M.D., M.P.H. [address] [place], [place] [phone] (Wo rk) documented as of this encounter Visit Diagnoses Not on filedocumented in this encounter
--- OUTSIDE RECORDS SUMMARY | 2022-09-11 09:26 | XMS_ITS | Encounter Summary ---
:1960 Author Organization [facility] Address [address] [place] [address] Care Team Providers Name Role Phone Unavailable Primary Care Provider Unavailable Encounter Details Date Type Department Care Team Description 05/01/2016 Hospital Encounter HX [facility] Aurelia Yadav M.D. [address] [place] [address] (Wo rk) Social History [...] frequency Screening Hepatitis C Once Born Between 0193-1473 due 05/01/16 One-time only Vaccine: Pneumococcal 23-Valent [...] months on 10/17/15. Satisfied by MAMI SALDAÑA [facility] Health Assessment every 1 year on 10/17/15. Satisfied by MAMI SALDAÑA [facility] Lipid Panel every 5 years Age 20-75 on 10/17/15. Satisfied by CONY RODRIGUEZ MT([facility]) Screening Colonoscopy or Flex Sig or Occult Blood on 11/14/15. Satisfied by FAYE YADAV MD Screening Diabetes Blood Glucose every 3 years Age 18-70 (Risk Factors) on 10/17/15. Satisfied by CONY RODRIGUEZ MT([facility]) Screening Mammogram every 1 year Women 40-75 on 02/15/16. Satisfied by ANITA TORREZ Screening Pap Smear every 3 years Women Age 30-65 on 10/17/15. Satisfied by JAYE BRAY DPAnn Vaccine: Flu every 1 year on 10/03/15. Satisfied by MARCO ANTONIO RANDLE [employer] SYSTEMS REVIEW Weight down 3kg in 6 [...] # 20 tab(s), 0 Refill(s), Acute, Pharmacy: [facility] #[id number] Benign Essential Hypertension Higher than normal today, but in light of acute illness, will not change regimen. Recheck in 3 weeks. Ordered: doxycycline, 100 mg = 1 tab(s), PO, 2xDay, x 10 day(s), # 20 tab(s), 0 Refill(s), Acute, Pharmacy: [facility] #1633 Bronchitis Acute Due to duration and course, [...] # 20 tab(s), 0 Refill(s), Acute, Pharmacy: [facility] #1632 Loss Weight Advised to stop drinking altogether. [...] # 20 tab(s), 0 Refill(s), Acute, Pharmacy: [facility] #[id number] Orders: Comprehensive Metabolic Panel Return Visit Internal Med - Extended Return Visit Internal Med - Extended I spent more than 20 minutes of this 30 minute appointment in counseling on management of lung disease, alcohol abuse, and tobacco cessation. Electronically Signed By: FAYE YADAV MD On: 05/01/2016 10:00 AM Source: [facility] POWERCHART Document Id: [id number] documented in this encounter Miscellaneous Notes Miscellaneous [...] 1 Substitutions Allowed Route To Pharmacy - [facility] #[id number] Signed by FAYE YADAV MD 08/07/2017 07:54:16 [...] 0 Substitutions Allowed Route To Pharmacy - [facility] #[id number] Source: [facility] POWERCHART Document Id: [id number] Telephone Encounter - Monica Rodrigues R.N. - [...] so. I did also provide daughter with [facility] number to talk to someone about other [...] Source: [facility] POWERCHART Document Id: [id number] Electronically signed by Conversion, [facility] Detective Precinct [id number] at 04/20/2017 9:33 PM CDT Miscellaneous - Faye Yadav M.D. - 05/02/2016 5:46 PM CDT Normal Results Letter May 02, 2016 [place] [id number] [place] [id number] Dear CHIP MAI, I am pleased to [...] Chest 2 Views 05/01/2016 Sincerely, FAYE YADAV [facility] [place] [address] Electronic Signature Electronically Signed By: FAYE YADAV MD On: May 02, 2016 This document has images extracted. Source: [facility] POWERCHART Document Id: [id number] Electronically signed by Conversion, [facility] Detective [employer]inct [id number] at 04/20/2017 9:33 PM CDT Telephone Encounter - Diogenes Ireland C.MLaw - 05/01/2016 4:44 PM CDT *Phone Message Document Contains Addenda Addendum by MAMI SALDAÑA CMA on May 02, 2016 08:17:05 CDT Patient notified of x-ray results, voiced understanding and no further questions at this time Addendum by FAYE YADAV MD on May 01, 2016 17:20:30 CDT From: FAYE YADAV MD To: [facility] Nurse (STRATEGIC MARKETING ASSOCIATE/MEÑO); Sent: 05/01/2016 17:20:30 CDT Subject: RE: *Phone Message Please let her know CXR was read as normal! I will send lab results in a letter. From: DIOGENES IRELAND CMA ([facility] Nurse ([facility])) To: FAYE YADAV MD; Sent: 05/01/2016 16:44:42 CDT Subject: *Phone Message Caller is: ( ) Patient ( ) Mother ( ) Father ( ) Spouse ( ) Daughter ( ) Son ( ) Pharmacy ( ) Other: Physician: Patient MRN #: Reason for Call: Pt wondering about xray results from this morning. [phone] Message: Advice/Action: Source used: ( ) Verbalizes [...] Source: [facility] POWERCHART Document Id: [id number] Electronically signed by Gabrilea [facility] Detective [employer]inct [id number] at 04/20/2017 9:33 PM CDT Miscellaneous - Mami Saldaña C.M.A. - 05/01/2016 10:23 AM CDT PHQ-9 PHQ-9 Entered On: 05/01/2016 10:24 CDT Performed On: 05/01/2016 10:23 CDT by MAMI SALDAÑA [facility] PHQ-9 Little interest or pleasure in doing [...] : Not difficult at all MAMI SALDAÑA [facility] - 05/01/2016 10:23 CDT Source: [facility] POWERCHART Document Id: [id number] CDT!13 Nancycellpepper - Faye Yadav M.D. - 05/01/2016 10:01 AM CDT Ambulatory Patient Summary [address] [id number] Visit Information Name: CHIP MAI [facility] Number: [id number] Current Date: 05/01/2016 10:01:32 Physicians [...] day x 10 day(s) New Routed to [address] [address] EPINEPHrine (EpiPen 2-Reg 0.3 mg [...] Appointments Date Time Location Provider 05/23/2016 08:[address] [facility] Faye Yadav MD Attention: Contact your [...] if you dont have one. Go to [email or web address] and click on Create Your Account. Then, follow the directions to complete the online form. Youll be asked for your [facility] number which you can find at the top of this document. Your Goals/Additional instructions: Source: [facility] POWERCHART Document Id: [id number] Miscellaneous - Faye Yadav M.D. - 05/01/2016 10:01 AM CDT Ambulatory Discharge Medication List [address] [id number] Visit Information Name: CHIP MAI [facility] Number: [id number] Visit Date: 05/01/2016 10:01:30 Attending [...] day x 10 day(s) New Routed to [place] [id number] [address] [address] EPINEPHrine (EpiPen 2-Reg 0.3 mg [...] Source: [facility] POWERCHART Document Id: [id number] Miscellaneous - Mami Saldaña, C.M.A. 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 [address] [phone] (Wo rk) documented as of this encounter Procedures Procedure Name Priority Date/Time Associated Comments Diagnosis COMPREHENSIVE Routine 05/01/2016 7:37 AM Results for this METABOLIC PANEL, S/P CDT procedu re are in the results section. documented in this encounter Results (ABNORMAL) CMP (Comprehensive Metabolic Panel) (05/01/2016 7:37 AM CDT) [facility] gist Method Time Signature Alanine 21 [...] POWERCHART MGDL eGFR Black/ >60 >=60 POWERCHART Venezuelan [id number] 2 HXeGFR (MDRD) >60 >=60 POWERCHART [id number] 2 Comment: Results are in mL/min/1.73m CKD [...]
--- OUTSIDE RECORDS SUMMARY | 2022-09-11 09:26 | XMS_ITS | Encounter Summary ---
:1960 Author Organization [facility] Address [address] [place] [address] Care Team Providers Name Role Phone Unavailable Primary Care Provider Unavailable Encounter Details Date Type Department Care Team Description 05/04/2014 Hospital Encounter [facility]X [facility] Aurelia Yadav M.D. [address] [place] [address] (Wo rk) Social History Tobacco [...] ST and voice. HISTORY OF PRESENT ILLNESS Zandra is here for continued ST and hoarse voice after an episode of her throat closing up and wasseen at [facility]. She felt her lips felt funny [...] has had a few reactions like this. [facility] ED note and FP discharge paperwork reviewed. [...] been on lisinopril aswas questioned in her [facility] notes. She is referred to allergy/immunology and is willing to wait until our sponge diver in [place] is available. Laryngitis: Difficult to tell now [...] YADAV MD On: 05/04/2014 01:21 PM Source: [facility] ThousandEyesCHART Document Id: [id number] documented in this encounter Miscellaneous Notes Miscellaneous - Chari Amador R.N. - 10/14/2014 5:00 PM CST Med Management Document Contains Addenda Addendum by FAYE YADAV MD on 15 October 2014 07:43:42 CHECKOUT OPERATOR From: FAYE YADAV MD Sent: 10/15/2014 07:43:42 CHECKOUT OPERATOR Subject: RE:Med Management Approved Order:zolpidem (Ambien CR 6.25 mg oral tablet, extended release) 1 tab(s) PO Bedtime do not crush orchew Qty: 30 tab(s) Refills: 3 Substitutions Allowed PRN Sleep Print - [id number] [facility] in [place] fax [phone] Signed by FAYE YADAV MD 10/15/2014 07:43:31 From: CHARI AMADOR RN ( Nurseline/Refill Nurse) To: FAYE YADAV MD; Sent: 10/14/2014 17:00:15 CHECKOUT OPERATOR Subject: Med Management On hold pending signature Order:zolpidem (Ambien CR 6.25 mg oral tablet, extended release) 1 tab(s) PO Bedtime do not crush orchew Qty: 30 tab(s) Refills: 3 Substitutions Allowed PRN Sleep Print - [id number] [facility] fax [phone] REFILL HAS NOT BEEN REVIEWED BY RN REFILL POOL. Source: [facility] POWERCHART Document Id: [id number] Miscellaneous - Conversion, Historical Provider Ser - 05/04/2014 2:39 PM CDT General Message Document Contains Addenda Addendum by TAMIKO RICHARD on 07 May 2014 10:55:24 CDT Pt notified, she will stop in next week. From: ELISSA JARAMILLO CMA ([facility] Nurse) To: [facility] Conservation Assistant; Sent: 05/04/2014 14:39:05 CDT Subject: General Message Please call patient to schedule lab appointment per Dr. Yadav. Patient can come anytime, sooner rather than later she says. Does NOT need to be fasting per Dr. Yadav. Source: [facility] POWERCHART Document Id: [id number] Miscellaneous - Faye Yadav M.D. - 05/04/2014 10:16 AM CDT Ambulatory Patient Summary [address] [id number] Visit Information Name: ZANDRA MAI [facility] Number: [id number] Current Date: 05/04/2014 10:16:39 Physicians [...] appointment detail needed. Your Goals/Additional instructions: Source: [facility] POWERCHART Document Id: [id number] Miscellaneous - Faye Yadav M.D. 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 Entered On: 05/04/2014 9:25 CDT Performed On: 05/04/2014 9:23 CDT by ELISSA JARAMILLO [facility] Intake Chief Complaint : ER F/U [...] Weight Clinic : 58.6 kg ELISSA JARAMILLO [facility] - 05/04/2014 9:23 CDT General Info Information Given By : Patient Languages : Slovak ELISSA JARAMILLO [facility] - 05/04/2014 9:23 CDT Subjective Pain Symptoms : No ELISSA JARAMILLO [facility] - 05/04/2014 9:23 CDT Dependent Habits Tobacco Use/Currently Using : Yes Exposure to Tobacco Smoke : Patient smokes Smoking Status : Current every day smoker ELISSA JARAMILLO [facility] - 05/04/2014 9:23 CDT Tobacco Use Grid Type : Cigarettes Cigarette Use Packs/Day : 0.5 ELISSA JARAMILLO [facility] - 05/04/2014 9:23 CDT Source: [facility] POWERCHART Document Id: [id number] CDT!30 documented in this encounter Plan of Treatment Upcoming Encounters Date Type Specialty Care Team Description 10/10/2022 Office Visit Neurology Karin Ramachandran M.D., M.P.H. [address] [place] [phone] (Wo rk) documented as of this [...] Strep A Screen (05/04/2014 9:55 AM CDT) [facility] Method Time Signature HXRapid Strep POWERCHART Confirmation HXPre Negative for POWERCHART Group A Strep by culture. HXFinal Negative for POWERCHART Group A Strep by culture. Specimen Anatomical Collection Method Collection Time Receive d Time (Source) Location / / Volume Laterality Throat 05/04/2014 9:55 AM 4 9:55 CDT AM CDT Faye Yadav M.D. LAB MICROBIOLOGY - GENERAL O RDERAENDER Performing Organization Address City/State/ZIP Code Phon e Number POWERCHART Rapid Strep A Screen (05/04/2014 9:55 AM CDT) [employer] Method Time Signature HXStrep A POWERCHART Screen Rapid HXFinal Negative for POWERCHART Strep Group A by rapid screen. HXFinal Culture POWERCHART confirmation to follow. Specimen (Source) Anatomical Collection Method Collection Time Re ceived Time Location / / Volume Laterality Throat 05/04/2014 9:55 AM CDT Faye Yadav M.D. LAB MICROBIOLOGY - GENERAL O RDERAENDER Performing Organization Address City/State/ZIP Code Phon e Number POWERCHART documented in this encounter Visit Diagnoses Not on filedocumented in this encounter Additional Health Concerns Assessment Noted Time PHQ-9 Depression Total Score: 3 03/18/2014 3:18 PM CDT documented as of this encounter
--- OUTSIDE RECORDS SUMMARY | 2022-09-11 09:26 | XMS_ITS | Encounter Summary ---
:1960 Author Organization [facility] Address [address] [place] [address] Care Team Providers Name Role Phone Unavailable Primary Care Provider Unavailable Encounter Details Date Type Department Care Team Description 03/27/2016 Hospital Encounter [facility] Abelardo Herzog M.D. [address] [place], [place] [phone] (Wo rk) Social History [...] VALENCIA(R)(CT), R.TEvans(R) - 03/27/2016 7:42 CDT Source: [employer] Document Id: [id number] CDT!14 documented in this encounter Miscellaneous Notes [...] She will reschedule 04/10 appt to go [facility] CXR.Transferred to scheduling. Addendum by FAYE YADAV MD on April 03, 2016 11:08:23 CDT From: FAYE YADAV MD To: [facility] Nurse (TABITHA/MEÑO); [facility] Pastoral Counselor; Sent: 04/03/2016 11:08:23 CDT Show up: 04/03/2016 [...] cough, 40 pack years, hyponatremia 27-Mar-2016 09:33 [facility] EXAM: CT scan of the Chest [...] 9:[address] Chest w/ contrast Source: [employer] Document Id: [id number] Electronically signed by Conversion, [facility] Director Of Grants [id number] at 04/20/2017 1:35 PM CDT Miscellaneous - Conversion, Historical Provider Ser - 03/27/2016 11:59 PM CDT Coding Summary-Paper Based CODING DATE: 04/06/2016 FINAL RW [facility] STATUS: * Discharged to Home or Self [...] ROSARIO Date Saved: 04/06/2016 09:41 am Source: [employer] Document Id: [id number] documented in this encounter Plan of Treatment Upcoming Encounters Date Type Specialty Care Team Description 10/10/2022 Office Visit Neurology Karin Ramachandran M.D., M.P.H. [address] [phone] (Wo rk) documented as of this encounter Visit Diagnoses Not on filedocumented in this encounter Additional Health Concerns Assessment Noted Time PHQ-9 Depression Total Score: 10 10/17/2015 9:46 AM CS T documented as of this encounter
--- OUTSIDE RECORDS SUMMARY | 2022-09-11 09:26 | XMS_ITS | Encounter Summary ---
:1960 Author Organization [facility] Address [address] [place] [address] Care Team Providers Name Role Phone Unavailable Primary Care Provider Unavailable Encounter Details Date Type Department Care Team Description 03/20/2017 Hospital Encounter HX [facility] Aurelia Milligan M.D. [address] [place] [address] (Wo rk) Social History Tobacco [...] Summary-Paper Based CODING DATE: 03/25/2017 FINAL RW [facility] STATUS: * Discharged to Home [...] ROSARIO Date Saved: 03/25/2017 02:58 pm [facility] Document Id: [id number] documented in this encounter Plan of Treatment Upcoming Encounters Date Type Specialty Care Team Description 10/10/2022 Office Visit Neurology Karin Ramachandran M.D., M.P.H. [address] [phone] (Wo rk) documented as of this encounter Visit Diagnoses Not on filedocumented in this encounter Additional Health Concerns Assessment Noted Time PHQ-9 Depression Total Score: 6 03/20/2017 1:11 PM CDT documented as of this encounter
--- OUTSIDE RECORDS SUMMARY | 2022-09-11 09:27 | XMS_ITS | Encounter Summary ---
:1960 Author Organization [facility] Address [address] [place] [address] Care Team Providers Name Role Phone Unavailable Primary Care Provider Unavailable Encounter Details Date Type Department Care Team Description 11/21/[address] [facility] XRAY Provider, Histori darlin Social History Tobacco Use Types Packs/Day Years Used Date Smoking Tobacco: Never Assessed Sex Assigned at Date Recorded Female 07/10/2022 7:32 AM CDT documented as of this encounter Plan of Treatment Upcoming Encounters Date Type Specialty Care Team Description 10/10/2022 Office Visit Neurology Karin Ramachandran M.D., M.P.H. [address] [place], [place] [phone] (Wo rk) documented as of this encounter Visit Diagnoses Not on filedocumented in this encounter
--- OUTSIDE RECORDS SUMMARY | 2022-09-11 09:27 | XMS_ITS | Encounter Summary ---
:1960 Author Organization [facility] Address [address] [place] [address] Care Team Providers Name Role Phone Unavailable Primary Care Provider Unavailable Encounter Details Date Type Department Care Team Description 07/12/2009 Hospital Encounter HX [facility] INTERNMED Shannon Barrett M.D. [address] [place] [address] (Wo rk) Social History Tobacco Use Types Packs/Day Years Used Date Smoking Tobacco: Never Assessed Sex Assigned at Date Recorded Female 07/10/2022 7:32 AM CDT documented as of this encounter Progress Notes Shannon Barrett M.D. - 07/12/2009 10:30 AM CDT [id number] SUBJECTIVE: Zandra Lopez is an 48 year [...] effective; continue present plan and medications. Source: [facility] Document Id: [id number] Electronically signed by Conversion, [facility] Powdered Sugar Pulverizer Operator [id number] at 04/28/2017 9:24 PM CDT documented in this encounter Miscellaneous Notes Miscellaneous - Shannon Barrett M.D. - 07/12/2009 10:30 AM CDT [id number] Zandra Brandon [address] [place] [address] November 09, 2009 Dear Ms. Zandra Taylor [...] questions or problems, please contact me at [phone] in Internal Medicine. Sincerely, (electronically signed to expedite delivery) Shannon Barrett M.D. INTERNAL MEDICINE Source: [facility] Document Id: [id number] Electronically signed by Gabriela [facility] Powdered Sugar Pulverizer Operator [id number] at 04/28/2017 9:24 PM CDT documented in this encounter Plan of Treatment Upcoming Encounters Date Type Specialty Care Team Description 10/10/2022 Office Visit Neurology Karin Ramachandran M.D., M.P.H. [address], [place] [phone] (Wo rk) documented as of this encounter Visit Diagnoses Not on filedocumented in this encounter
--- OUTSIDE RECORDS SUMMARY | 2022-09-11 09:27 | XMS_ITS | Encounter Summary ---
:1960 Author Organization [facility] Address [address] [place] [address] Care Team Providers Name Role Phone Unavailable Primary Care Provider Unavailable Encounter Details Date Type Department Care Team Description 04/26/2009 Hospital Encounter HX [facility] Shannon Buitrago M.D. [address] [place] [address] (Wo rk) Social History Tobacco Use Types Packs/Day Years Used Date Smoking Tobacco: Never Assessed Sex Assigned at Date Recorded Female 07/10/2022 7:32 AM CDT documented as of this encounter Miscellaneous Notes Miscellaneous - Conversion, Historical Provider Ser - 04/26/2009 12:00 AM CDT [id number] Zandra Lopez [address] [address] April 26, 2009 Dear Zandra, Your current [...] future. You may call our office at [phone] at the [facility] to schedule a visit. Please disregard this notice if you have already made an appointment. Sincerely, INTERNAL MEDICINE [facility], [address] [place] [address], [place] [address] Source: [facility] Document Id: [id number] Telephone Encounter - Conversion, Historical Provider Ser - 04/26/2009 12:00 AM CDT [id number] [facility] [place] Source: [facility] Document Id: [id number] Telephone Encounter - Conversion, Historical Provider Ser - 04/26/2009 12:00 AM CDT [id number] Prescription approved for 1 month per RN refill protocol. Letter sent to patient for recheck appt. Last visit:10/12/08 Last 1 Encounter BP Readings: Date BP 10/12/2008 108/70 TSH 0.48 10/12/08 CAD/HTN and/or CHF labs: CR 0.85 10/12/08 POTASSIUM 4.1 10/12/08 Source[facility] Document Id: [id number] documented in this encounter Plan of Treatment Upcoming Encounters Date Type Specialty Care Team Description 10/10/2022 Office Visit Neurology Karin Ramachandran M.D., M.P.H. [address] [place] [phone] (Wo rk) documented as of this encounter Visit Diagnoses Not on filedocumented in this encounter
--- OUTSIDE RECORDS SUMMARY | 2022-09-11 09:27 | XMS_ITS | Encounter Summary ---
:1960 Author Organization [facility] Address [address] [place] [address] Care Team Providers Name Role Phone Unavailable Primary Care Provider Unavailable Encounter Details Date Type Department Care Team Description 03/09/2009 Hospital Encounter HX [facility] Shannon Buitrago M.D. [address] [place] [address] (Wo rk) Social History Tobacco Use Types Packs/Day Years Used Date Smoking Tobacco: Never Assessed Sex Assigned at Date Recorded Female 07/10/2022 7:32 AM CDT documented as of this encounter Miscellaneous Notes Telephone Encounter - Conversion, Historical Provider Ser - 03/09/2009 12:00 AM CDT [id number] Last visit with pcp 10/02, Source[facility] Document Id: [id number] documented in this encounter Plan of Treatment Upcoming Encounters Date Type Specialty Care Team Description 10/10/2022 Office Visit Neurology Karin Ramachandran M.D., M.P.H. [address] [place], [place] [phone] (Wo rk) documented as of this encounter Visit Diagnoses Not on filedocumented in this encounter
--- OUTSIDE RECORDS SUMMARY | 2022-09-11 09:27 | XMS_ITS | Encounter Summary ---
:1960 Author Organization [facility] Address [address] [place] [address] Care Team Providers Name Role Phone Unavailable Primary Care Provider Unavailable Encounter Details Date Type Department Care Team Description 07/10/2011 Hospital Encounter HX [facility] Aurelia Fernández M.D. [address] [place] [phone] (Wo rk) Social History Tobacco Use Types Packs/Day Years Used Date Smoking Tobacco: Never Assessed Sex Assigned at Date Recorded Female 07/10/2022 7:32 AM CDT documented as of this encounter Miscellaneous Notes Miscellaneous - Kristine Pinedo R.N. - 07/10/2011 12:00 AM CDT [id number] Zandra Lopez [address] [place] [address] [place] July 10, 2011 Dear Zandra, [...] future. You may call our office at [phone] in Family Medicine to schedule a visit. Please disregard this notice if you have already made an appointment. Sincerely, [facility], [address] [place] [address], [place] [address] Source: [facility] Document Id: [id number] Telephone Encounter - Conversion, Historical Provider Ser - 07/10/2011 12:00 AM CDT [id number] [facility] [place] Last visit: BP Readings from Last 1 Encounters: 07/24/10 110/63 [facility] Document Id: [id number] Telephone Encounter - Kristine Pinedo R.N. - 07/10/2011 12:00 AM CDT [id number] Last visit: BP Readings from Last 1 Encounters: 07/24/10 110/63 Care plan indicates patient is to RTC for recheck in 1 yr or CAD/HTN and/or CHF labs: CR 0.75 09/01/2010 POTASSIUM 3.6 09/01/2010 TSH 3.56 09/01/2010 Source[facility] Document Id: [id number] documented in this encounter Plan of Treatment Upcoming Encounters Date Type Specialty Care Team Description 10/10/2022 Office Visit Neurology Karin Ramachandran M.D., M.P.H. [address] [phone] ( rk) documented as of this encounter Visit Diagnoses Not on filedocumented in this encounter
--- OUTSIDE RECORDS SUMMARY | 2022-09-11 09:27 | XMS_ITS | Encounter Summary ---
:1960 Author Organization [facility] Address [address] [place] [address] Care Team Providers Name Role Phone Unavailable Primary Care Provider Unavailable Encounter Details Date Type Department Care Team Description 01/07/2013 Hospital Encounter HX NO MAPPING Abelardo Liao M.D. [address] [place] [phone] (Wo rk) Social History Tobacco Use Types Packs/Day Years Used Date Smoking Tobacco: Never Assessed Sex Assigned at Date Recorded Female 07/10/2022 7:32 AM CDT documented as of this encounter Plan of Treatment Upcoming Encounters Date Type Specialty Care Team Description 10/10/2022 Office Visit Neurology Karin Ramachandran M.D., M.P.H. [address] [place], [place] [phone] (Wo rk) documented as of this encounter Visit Diagnoses Not on filedocumented in this encounter
--- OUTSIDE RECORDS SUMMARY | 2022-09-11 09:27 | XMS_ITS | Encounter Summary ---
:1960 Author Organization [facility] Address [address] [place] [address] Care Team Providers Name Role Phone Unavailable Primary Care Provider Unavailable Encounter Details Date Type Department Care Team Description 11/26/2011 Hospital Encounter HX [facility] TIO Aurelia Núñez M.D. [address] [place] [address] (Wo rk) Social History Tobacco Use Types Packs/Day Years Used Date Smoking Tobacco: Never Assessed Sex Assigned at Date Recorded Female 07/10/2022 7:32 AM CDT documented as of this encounter Progress Notes Conversion, Historical Provider Ser - 11/26/2011 2:30 PM CST [id number] Addended by: OLAF RÍOS on: 11/26/2011 Modules accepted: Orders, SmartSet [facility] Document Id: [id number] Faye Liao M.D. - 11/26/2011 2:30 PM CST [id number] Zandra Lopez is here for follow up [...] quit date), and side effects vs benefits. Kimmell depressed on chantix in the past, has not beenon wellbutrin before. Return to clinic in 12 months or sooner if new or worsening symptoms. [facility] Document Id: [id number] Electronically signed by Gabriela, [facility] [place] Patient Navigator [id number] at 04/27/2017 2:43 PM CDT documented in this encounter Miscellaneous Notes Miscellaneous - Conversion, Historical Provider Ser - 11/26/2011 2:30 PM IT SUPPORT ENGINEER [id number] 11/28/2011 Zandra Taylor [facility] [address] [facility] [address] [facility] Dear Zandra: Thank you for allowing me [...] to contact us. Sincerely, Faye Liao MD [facility] INTERNAL MEDICINE [facility] [address] Source: [facility] Document Id: [id number] Miscellaneous - Conversion, Historical Provider Ser - 11/26/2011 2:30 PM IT SUPPORT ENGINEER [id number] Zandra Lopez [address] [place] [address] June 24, 2012 Dear Zandra Lopez APPOINTMENT REMINDER: Our records indicates that it is time for you to have your annual mammogram completed. You may call our office at [phone] or [phone] to schedule an appointment for a Mammogram. For your convenience, our [facility] now offers portable digital mammograms on the first Saturdayof every month. Please disregard this notice if you have already made an appointment. Sincerely, [facility] Source: [facility] Document Id: [id number] documented in this encounter Plan of Treatment Upcoming Encounters Date Type Specialty Care Team Description 10/10/2022 Office Visit Neurology Karin Ramachandran M.D., M.P.H. [address] [place] [phone] (Wo rk) documented as of this encounter Procedures Procedure Name Priority Date/Time Associated Comments Diagnosis HX LDLCHOL Routine 11/27/2011 7:05 PM Results f or this IT SUPPORT ENGINEER procedure are i n the results section. THYROID-STIMULATING Routine 11/27/2011 1:33 PM Re sults for this HORMONE-SENSITIVE IT SUPPORT ENGINEER procedure are in (S-TSH) the results section. HX UREA NITROGEN Routine 11/27/2011 1:04 PM Resul ts for this IT SUPPORT ENGINEER procedure are i n the results section. HX AGAP Routine 11/27/2011 1:04 PM Results f or this IT SUPPORT ENGINEER procedure are i n the results section. CREATININE WITH Routine 11/27/2011 1:04 PM Result s for this EGFR, P IT SUPPORT ENGINEER procedure are i n the results section. CREATININE WITH Routine 11/27/2011 1:04 PM Result s for this EGFR, P IT SUPPORT ENGINEER procedure are i n the results section. SODIUM, S/P Routine 11/27/2011 1:04 PM Results f or this IT SUPPORT ENGINEER procedure are i n the results section. POTASSIUM, S/P Routine 11/27/2011 1:04 PM Results for this IT SUPPORT ENGINEER procedure are i n the results section. GLUCOSE, RANDOM, S/P Routine 11/27/2011 1:04 PM R esults for this IT SUPPORT ENGINEER procedure are i n the results section. CREATININE WITH Routine 11/27/2011 1:04 PM Result s for this EGFR, S/P IT SUPPORT ENGINEER procedure are i n the results section. CHLORIDE, S/P Routine 11/27/2011 1:04 PM Results for this IT SUPPORT ENGINEER procedure are i n the results section. BICARBONATE, B/S/P Routine 11/27/2011 1:04 PM Res ults for this IT SUPPORT ENGINEER procedure are i n the results section. CALCIUM, TOT, S/P Routine 11/27/2011 1:04 PM Resu lts for this IT SUPPORT ENGINEER procedure are i n the results section. documented in this encounter Results HX LDLCHOL (11/27/2011 7:05 PM IT SUPPORT ENGINEER) athologist Signature LDL Cholesterol 125 MGDL [facility] Specimen (Source) Anatomical Collection Method Collection Time Re ceived Time Location / / Volume Laterality 11/27/2011 7:05 PM IT SUPPORT ENGINEER Narrative [facility] - 01/24/20 14 1:45 AM IT SUPPORT ENGINEER Optimal: ? <100 mg/dL Near Optimal: ? 100-129 mg/dL Borderline High: ??130-159 mg/dL High: ? 160-189 mg/dL Very high: ??greater than or equal to 19 0 mg/dL Cannot estimate LDL when triglyceride ex ceeds 400 mg/dL Historical Provider LAB HISTORICAL ORDERS Performing Organization Address City/State/[facility] Code Phon e Number [facility] S-TSH (Thyroid-Stimulating Hormone - Sensitive) (11/27/2011 1:33 PM IT SUPPORT ENGINEER) P athologist Signature TSH 4.39 MUNITL [facility] (Thyrotropin) [facility] Specimen (Source) Anatomical Collection Method Collection Time Re ceived Time Location / / Volume Laterality 11/27/2011 1:33 PM IT SUPPORT ENGINEER Historical Provider LAB BLOOD ADD-ON Performing Organization Address City/State/ZIP Code Phon e Number [facility] Calcium, Total (11/27/2011 1:04 PM IT SUPPORT ENGINEER) P athologist Signature Calcium, Total, 10.0 MGDL [facility] Specimen (Source) Anatomical Collection Method Collection Time Re ceived Time Location / / Volume Laterality 11/27/2011 1:04 PM IT SUPPORT ENGINEER Historical Provider LAB BLOOD ADD-ON Performing Organization Address City/State/ZIP Code Phon e Number [facility] Creatinine with Estimated GFR (MDRD), Plasma (11/27/2011 1:04 PM IT SUPPORT ENGINEER) P athologist Signature eGFR >90 [id number] [facility] Black/ [facility] [place] LAB Specimen (Source) Anatomical Collection Method Collection Time Re ceived Time Location / / Volume Laterality 11/27/2011 1:04 PM IT SUPPORT ENGINEER Historical Provider LAB BLOOD ADD-ON Performing Organization Address City/State/ZIP Code Phon e Number [facility] Creatinine with Estimated GFR (MDRD), Plasma (11/27/2011 1:04 PM IT SUPPORT ENGINEER) P athologist Signature HXeGFR (MDRD) 88 [id number] [facility] Specimen (Source) Anatomical Collection Method Collection Time Re ceived Time Location / / Volume Laterality 11/27/2011 1:04 PM IT SUPPORT ENGINEER Historical Provider LAB BLOOD ADD-ON Performing Organization Address City/State/ZIP Code Phon e Number [facility] Creatinine with Estimated GFR (MDRD) (11/27/2011 1:04 PM IT SUPPORT ENGINEER) P athologist Signature Creatinine 0.70 MGDL [facility] Specimen (Source) Anatomical Collection Method Collection Time Re ceived Time Location / / Volume Laterality 11/27/2011 1:04 PM IT SUPPORT ENGINEER Historical Provider LAB BLOOD ADD-ON Performing Organization Address City/State/ZIP Code Phon e Number [facility] HX UREA NITROGEN (11/27/2011 1:04 PM IT SUPPORT ENGINEER) P athologist Signature Urea Nitrogen, 17 MGDL [facility] 24 HR, [facility] Specimen (Source) Anatomical Collection Method Collection Time Re ceived Time Location / / Volume Laterality 11/27/2011 1:04 PM IT SUPPORT ENGINEER Historical Provider LAB HISTORICAL ORDERS Performing Organization Address City/State/ZIP Code Phon e Number [facility] Glucose, Random (11/27/2011 1:04 PM IT SUPPORT ENGINEER) P athologist Signature Glucose 84 MGDL [facility] Specimen (Source) Anatomical Collection Method Collection Time Re ceived Time Location / / Volume Laterality 11/27/2011 1:04 PM IT SUPPORT ENGINEER Narrative [facility] - 01/24/20 14 1:45 AM IT SUPPORT ENGINEER Non Fasting Historical Provider LAB BLOOD TROPONIN Performing Organization Address City/State/ZIP Code Phon e Number [facility] HX AGAP (11/27/2011 1:04 PM IT SUPPORT ENGINEER) P athologist Signature Anion Gap 8 MMOLL [facility] Specimen (Source) Anatomical Collection Method Collection Time Re ceived Time Location / / Volume Laterality 11/27/2011 1:04 PM IT SUPPORT ENGINEER Historical Provider LAB HISTORICAL ORDERS Performing Organization Address City/State/ZIP Code Phon e Number [facility] Bicarbonate (11/27/2011 1:04 PM IT SUPPORT ENGINEER) P athologist Signature HX Carbon 28 MMOLL [facility] Dioxide [facility] Specimen (Source) Anatomical Collection Method Collection Time Re ceived Time Location / / Volume Laterality 11/27/2011 1:04 PM IT SUPPORT ENGINEER Historical Provider LAB BLOOD ADD-ON Performing Organization Address City/State/ZIP Code Phon e Number [facility] Chloride (11/27/2011 1:04 PM IT SUPPORT ENGINEER) P athologist Signature Chloride, S 105 MMOLL [facility] Specimen (Source) Anatomical Collection Method Collection Time Re ceived Time Location / / Volume Laterality 11/27/2011 1:04 PM IT SUPPORT ENGINEER Historical Provider LAB BLOOD ADD-ON Performing Organization Address City/State/ZIP Code Phon e Number [facility] Potassium, S (11/27/2011 1:04 PM IT SUPPORT ENGINEER) P athologist Signature Potassium, S 5.0 MMOLL [facility] Specimen (Source) Anatomical Collection Method Collection Time Re ceived Time Location / / Volume Laterality 11/27/2011 1:04 PM IT SUPPORT ENGINEER Historical Provider LAB BLOOD ADD-ON Performing Organization Address City/State/ZIP Code Phon e Number [facility] Sodium (11/27/2011 1:04 PM IT SUPPORT ENGINEER) P athologist Signature Sodium, S 141 MMOLL [facility] Specimen (Source) Anatomical Collection Method Collection Time Re ceived Time Location / / Volume Laterality 11/27/2011 1:04 PM IT SUPPORT ENGINEER Historical Provider LAB BLOOD ADD-ON Performing Organization Address City/State/ZIP Code Phon e Number [facility] documented in this encounter Visit Diagnoses Not on filedocumented in this encounter
--- OUTSIDE RECORDS SUMMARY | 2022-09-11 09:27 | XMS_ITS | Encounter Summary ---
:1960 Author Organization [facility] Address [address] [place] [address] Care Team Providers Name Role Phone Unavailable Primary Care Provider Unavailable Encounter Details Date Type Department Care Team Description 01/07/2013 Hospital Encounter HX [facility] Aurelia Fernández M.D. [address] [place] [address] (Wo rk) Social History Tobacco Use Types Packs/Day Years Used Date Smoking Tobacco: Never Assessed Sex Assigned at Date Recorded Female 07/10/2022 7:32 AM CDT documented as of this encounter Miscellaneous Notes Telephone Encounter - Conversion, Historical Provider Ser - 01/07/2013 12:00 AM CST [id number] Last visit: BP Readings from Last 1 Encounters: 01/07/13 123/81 [facility] Document Id: [id number] Telephone Encounter - Cora Jack R.N. - 01/07/2013 12:00 AM READING COACH [id number] Last visit: BP Readings from Last 1 Encounters: 01/07/13 123/81 Two different instructions on sign. Please clarify. CAD/HTN and/or CHF labs: CR 0.70 11/26/2011 POTASSIUM 5.0 11/26/2011 TSH 4.39 11/26/2011 Source: [facility] Document Id: [id number] Electronically signed by Conversion, [facility] Teletypesetter Operator [id number] at 04/22/2017 12:53 PM CDT documented in this encounter Plan of Treatment Upcoming Encounters Date Type Specialty Care Team Description 10/10/2022 Office Visit Neurology Karin Ramachandran M.D., M.P.H. [address] [phone] (Wo rk) documented as of this encounter Visit Diagnoses Not on filedocumented in this encounter
--- OUTSIDE RECORDS SUMMARY | 2022-09-11 09:27 | XMS_ITS | Encounter Summary ---
:1960 Author Organization [facility] Address [address] [place] [address] Care Team Providers Name Role Phone Unavailable Primary Care Provider Unavailable Encounter Details Date Type Department Care Team Description 12/05/2009 Hospital Encounter HX [facility] Shannon Buitrago M.D. [address] [place] [phone] (Wo rk) Social History Tobacco Use Types Packs/Day Years Used Date Smoking Tobacco: Never Assessed Sex Assigned at Date Recorded Female 07/10/2022 7:32 AM CDT documented as of this encounter Miscellaneous Notes Miscellaneous - Jordyn Hoskins R.N. - 12/05/2009 12:00 AM CST [id number] Zandra Lopez [address] [place] [address] December 05, 2009 Dear Zandra, Your current [...] future. You may call our office at [phone] in Internal Medicine to schedule a visit. Please disregard this notice if you have already made an appointment. Sincerely, INTERNAL MEDICINE [facility], [address] [place], [place] [address], [place] [address] Source: [facility] Document Id: [id number] Electronically signed by Conversion, [facility] Licensed Home Inspector [id number] at 04/28/2017 8:14 AM CDT Telephone Encounter - Conversion, Historical Provider Ser - 12/05/2009 12:00 AM CST [id number] Accepting this Rx will FAX it directly to the pharmacy. Thank You! Source: [facility] Document Id: [id number] Telephone Encounter - Jordyn Hoskins R.N. - 12/05/2009 12:00 AM CST [id number] Last visit:07/12/09 Last 1 Encounter BP Readings: Date BP 07/12/2009 120/66 Prescription approved for 1 month per RN refill protocol. Letter sent to patient for recheck appt. TSH 0.57 07/12/09 CAD/HTN and/or CHF labs: CR 0.72 07/12/09 POTASSIUM 4.5 07/12/09 Source: [facility] Document Id: [id number] Electronically signed by Conversion, [facility] Licensed Home Inspector [id number] at 04/28/2017 8:14 AM CDT documented in this encounter Plan of Treatment Upcoming Encounters Date Type Specialty Care Team Description 10/10/2022 Office Visit Neurology Karin Ramachandran M.D., M.P.H. [address] [phone] (Wo rk) documented as of this encounter Visit Diagnoses Not on filedocumented in this encounter
--- OUTSIDE RECORDS SUMMARY | 2022-09-11 09:27 | XMS_ITS | Encounter Summary ---
:1960 Author Organization [facility] Address [address] [place] [address] Care Team Providers Name Role Phone Unavailable [...] Liao M.D. - 09/01/2010 12:30 PM CDT [id number] Zandra Lopez [address] [place] [address] September 08, 2010 Dear Zandra, I am [...] MD Departments of Internal Medicine and Pediatrics [facility] Source: [facility] Document Id: [id number] Electronically signed by Gabriela [facility] [employer] Social Studies Teacher [id number] at 04/28/2017 1:39 PM CDT documented in this encounter Plan of Treatment Upcoming Encounters Date Type Specialty Care Team Description 10/10/2022 Office Visit Neurology Karin Ramachandran M.D., M.P.H. [address] [place] [phone] (Wo rk) documented as of this encounter Visit Diagnoses Not on filedocumented in this encounter
--- OUTSIDE RECORDS SUMMARY | 2022-09-11 09:27 | XMS_ITS | Encounter Summary ---
:1960 Author Organization [facility] Address [address] [place] [address] Care Team Providers Name Role Phone Unavailable Primary Care Provider Unavailable Encounter Details Date Type Department Care Team Description 01/07/2013 Hospital Encounter [facility] Provider, [facility] Social History Tobacco Use Types Packs/Day Years Used Date Smoking Tobacco: Never Assessed Sex Assigned at Date Recorded Female 07/10/2022 7:32 AM CDT documented as of this encounter Plan of Treatment Upcoming Encounters Date Type Specialty Care Team Description 10/10/2022 Office Visit Neurology Karin Ramachandran M.D., M.P.H. [address] [place], [place] [phone] (Wo rk) documented as of this encounter Visit Diagnoses Not on filedocumented in this encounter
--- OUTSIDE RECORDS SUMMARY | 2022-09-11 09:27 | XMS_ITS | Encounter Summary ---
:1960 Author Organization [facility] Address [address] [place] [address] Care Team Providers Name Role Phone Unavailable Primary Care Provider Unavailable Encounter Details Date Type Department Care Team Description 04/09/2011 Hospital Encounter HX [facility] Aurelia Núñez M.D. [address] [place] [address] (Wo rk) Social History Tobacco Use Types Packs/Day Years Used Date Smoking Tobacco: Never Assessed Sex Assigned at Date Recorded Female 07/10/2022 7:32 AM CDT documented as of this encounter Miscellaneous Notes Telephone Encounter - Conversion, Historical Provider Ser - 04/09/2011 12:00 AM CDT [id number] Was seen by you for pe 07/24/10, last fill 12/04/10 [facility] Document Id: [id number] documented in this encounter Plan of Treatment Upcoming Encounters Date Type Specialty Care Team Description 10/10/2022 Office Visit Neurology Karin Ramachandran M.D., M.P.H. [address] [place], [place] [phone] (Wo rk) documented as of this encounter Visit Diagnoses Not on filedocumented in this encounter
--- OUTSIDE RECORDS SUMMARY | 2022-09-11 09:27 | XMS_ITS | Encounter Summary ---
:1960 Author Organization [facility] Address [address] [place] [address] Care Team Providers Name Role Phone Unavailable Primary Care Provider Unavailable Encounter Details Date Type Department Care Team Description 07/04/2012 Hospital Encounter HX [facility] Shannon Zapata M.D. [address] [place] [address] (Wo rk) Social History Tobacco Use Types Packs/Day Years Used Date Smoking Tobacco: Never Assessed Sex Assigned at Date Recorded Female 07/10/2022 7:32 AM CDT documented as of this encounter Miscellaneous Notes Telephone Encounter - Susana Sifuentes L.P.N. - 07/04/2012 12:00 AM CDT [id number] Accepting this Rx will be faxed directly to pharmacy. [facility] Document Id: [id number] Telephone Encounter - Rosina Wyatt R.N. - 07/04/2012 12:00 AM CDT [id number] Last visit: BP Readings from Last 1 [...] Routing to ordering provider for ambien [facility] Document Id: [id number] documented in this encounter Plan of Treatment Upcoming Encounters Date Type Specialty Care Team Description 10/10/2022 Office Visit Neurology Karin Ramachandran M.D., M.P.H. [address] [phone] (Wo rk) documented as of this encounter Visit Diagnoses Not on filedocumented in this encounter
--- OUTSIDE RECORDS SUMMARY | 2022-09-11 09:27 | XMS_ITS | Encounter Summary ---
:1960 Author Organization [facility] Address [address] [place] [address] Care Team Providers Name Role Phone Unavailable [...] Visit Neurology Karin Ramachandran M.D., M.P.H. [address] [place], [place] [phone] (Wo rk) documented as of this encounter Visit Diagnoses Not on filedocumented in this encounter
--- OUTSIDE RECORDS SUMMARY | 2022-09-11 09:27 | XMS_ITS | Encounter Summary ---
:1960 Author Organization [facility] Address [address] [place] [address] Care Team Providers Name Role Phone Unavailable Primary Care Provider Unavailable Encounter Details Date Type Department Care Team Description 05/31/2009 Hospital Encounter HX [facility] Shannon Buitrago M.D. [address] [place] [address] (Wo rk) Social History Tobacco Use Types Packs/Day Years Used Date Smoking Tobacco: Never Assessed Sex Assigned at Date Recorded Female 07/10/2022 7:32 AM CDT documented as of this encounter Miscellaneous Notes Telephone Encounter - Conversion, Historical Provider Ser - 05/31/2009 12:00 AM CDT [id number] patient only has one pill left and has been filling in for worker who is out ill, has one more week before goes back to her own schedule and than will make an appt. Could you refill one time. Source: [facility] Document Id: [id number] documented in this encounter Plan of Treatment Upcoming Encounters Date Type Specialty Care Team Description 10/10/2022 Office Visit Neurology Karin Ramachandran M.D., M.P.H. [address], [place] [phone] (Wo rk) documented as of this encounter Visit Diagnoses Not on filedocumented in this encounter
--- OUTSIDE RECORDS SUMMARY | 2022-09-11 09:27 | XMS_ITS | Encounter Summary ---
:1960 Author Organization [facility] Address [address] [place] [address] Care Team Providers Name Role Phone Unavailable Primary Care Provider Unavailable Encounter Details Date Type Department Care Team Description 12/16/2012 Hospital Encounter HX [facility] Aurelia Fernández M.D. [address] [place] [address] (Wo rk) Social History Tobacco Use Types Packs/Day Years Used Date Smoking Tobacco: Never Assessed Sex Assigned at Date Recorded Female 07/10/2022 7:32 AM CDT documented as of this encounter Miscellaneous Notes Telephone Encounter - Conversion, Historical Provider Ser - 12/16/2012 12:00 AM CST [id number] Pt would like refills of her thyroid medication sent to the [facility] in [place]. She would like this done NATHALIE. [facility] Document Id: [id number] Telephone Encounter - Conversion, Historical Provider Ser - 12/16/2012 12:00 AM CST [id number] Pt needs enough medication to last her until her appt on 01/07/13. Source: [facility] Document Id: [id number] Telephone Encounter - Conversion, Historical Provider Ser - 12/16/2012 12:00 AM CST [id number] Pt looking for enough Synthroid until 01/07/13 appt. Pt has not been seen since 12/06/11 (refill pool will not fill without labs being up to date, appt, etc). I have pended a 30 day supply. Please review/advise,thank you! [facility] Last visit: BP Readings from Last 1 Encounters: 11/26/11 120/80 TSH 4.39 11/26/2011 Source[facility] Document Id: [id number] Telephone Encounter - Faye Liao M.D. - 12/16/2012 12:00 AM CST [id number] Please put in pharmacy Source[facility] Document Id: [id number] Electronically signed by Conversion, [facility] Relief Operator [id number] at 04/22/2017 11:52 AM CDT documented in this encounter Plan of Treatment Upcoming Encounters Date Type Specialty Care Team Description 10/10/2022 Office Visit Neurology Karin Ramachandran M.D., M.P.H. [address] [phone] (Wo rk) documented as of this encounter Visit Diagnoses Not on filedocumented in this encounter
--- OUTSIDE RECORDS SUMMARY | 2022-09-11 09:27 | XMS_ITS | Encounter Summary ---
:1960 Author Organization [facility] Address [address] [place] [address] Care Team Providers Name Role Phone Unavailable Primary Care Provider Unavailable Encounter Details Date Type Department Care Team Description 12/17/2012 Hospital Encounter [facility] Aurelia Núñez M.D. [address] [place] [address] (Wo rk) Social History Tobacco Use Types Packs/Day Years Used Date Smoking Tobacco: Never Assessed Sex Assigned at Date Recorded Female 07/10/2022 7:32 AM CDT documented as of this encounter Plan of Treatment Upcoming Encounters Date Type Specialty Care Team Description 10/10/2022 Office Visit Neurology Karin Ramachandran M.D., M.P.H. [address] [place], [place] [phone] (Wo rk) documented as of this encounter Visit Diagnoses Not on filedocumented in this encounter
--- OUTSIDE RECORDS SUMMARY | 2022-09-11 09:27 | XMS_ITS | Encounter Summary ---
:1960 Author Organization [facility] Address [address] [place] [address] Care Team Providers Name Role Phone Unavailable Primary Care Provider Unavailable Encounter Details Date Type Department Care Team Description 07/24/2010 Hospital Encounter [facility] Aurelia Liao M.D. [address] [place] [address] (Wo rk) Social History Tobacco Use Types Packs/Day Years Used Date Smoking Tobacco: Never Assessed Sex Assigned at Date Recorded Female 07/10/2022 7:32 AM CDT documented as of this encounter Progress Notes Faye Liao M.D. - 07/24/2010 1:00 PM CDT [id number] Zandra Lopez is a 49 year old [...] bleeding. GENITOURINARY: Denies dysuria, incontinence, nocturia, hematuria. 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 HTN well controlled-continue CCB. Source: [facility] RWHXTRANSXRTFSYS Document Id: [id number] Electronically signed by Conversion, [facility] Hvac Project Engineer [id number] at 04/28/2017 3:39 PM CDT documented in this encounter Miscellaneous Notes Miscellaneous - Faye Liao M.D. - 07/24/2010 1:00 PM CDT [id number] Zandra Taylor [place] [address] [place] [address] [facility] 07/28/2010 Dear Ms. Lopez, I am happy to inform you that your recent cervical cancer screening test (PAP smear) was normal. Preventative screening such as this helps insure your health for years to come. Congratulations for taking care of yourself! Please contact my office if you have any further questions. [phone] Sincerely, Faye Liao M.D. INTERNAL MEDICINE [facility] Source: [facility] Document Id: [id number] Electronically signed by Conversion, [facility] Hvac Project Engineer [id number] at 04/28/2017 3:39 PM CDT documented in this encounter Plan of Treatment Upcoming Encounters Date Type Specialty Care Team Description 10/10/2022 Office Visit Neurology Karin Ramachandran M.D., M.P.H. [address] [phone] (Wo rk) documented as of this encounter Visit Diagnoses Not on filedocumented in this encounter
--- OUTSIDE RECORDS SUMMARY | 2022-09-11 09:27 | XMS_ITS | Encounter Summary ---
:1960 Author Organization [facility] Address [address] [place] [address] Care Team Providers Name Role Phone Unavailable Primary Care Provider Unavailable Encounter Details Date Type Department Care Team Description 06/28/2009 Hospital Encounter HX [facility] Shannon Buitrago M.D. [address] [place] [address] (Wo rk) Social History Tobacco Use Types Packs/Day Years Used Date Smoking Tobacco: Never Assessed Sex Assigned at Date Recorded Female 07/10/2022 7:32 AM CDT documented as of this encounter Miscellaneous Notes Telephone Encounter - Conversion, Historical Provider Ser - 06/28/2009 12:00 AM CDT [id number] patient made an appt fro 07/12/09 can you please send down refill until then Source: [place] [facility]THXTRANSXRT[facility]YS Document Id: [id number] documented in this encounter Plan of Treatment Upcoming Encounters Date Type Specialty Care Team Description 10/10/2022 Office Visit Neurology Karin Ramachandran M.D., M.P.H. [address] [place], [place] [phone] (Wo rk) documented as of this encounter Visit Diagnoses Not on filedocumented in this encounter
--- OUTSIDE RECORDS SUMMARY | 2022-09-11 09:27 | XMS_ITS | Encounter Summary ---
:1960 Author Organization [facility] Address [address] [place] [address] Care Team Providers Name Role Phone Unavailable Primary Care Provider Unavailable Encounter Details Date Type Department Care Team Description 01/30/2010 Hospital Encounter [facility] Aurelia Liao M.D. [address] [place] [address] (Wo rk) Social History Tobacco Use Types Packs/Day Years Used Date Smoking Tobacco: Never Assessed Sex Assigned at Date Recorded Female 07/10/2022 7:32 AM CDT documented as of this encounter Progress Notes Faye Liao M.D. - 01/30/2010 9:30 AM CST [id number] Here for follow up of insomnia. Needs [...] Smoking cessation advised and offered support. Source: [facility] RWHXTRANSXRTFSYS Document Id: [id number] documented in this encounter Plan of Treatment Upcoming Encounters Date Type Specialty Care Team Description 10/10/2022 Office Visit Neurology Karin Ramachandran M.D., M.P.H. [address] [phone] (Wo rk) documented as of this encounter Visit Diagnoses Not on filedocumented in this encounter
--- OUTSIDE RECORDS SUMMARY | 2022-09-11 09:27 | XMS_ITS | Encounter Summary ---
:1960 Author Organization [facility] Address [address] [place] [address] Care Team Providers Name Role Phone Unavailable Primary Care Provider Unavailable Encounter Details Date Type Department Care Team Description 11/21/2009 Hospital Encounter HX NO MAPPING Shannon Barrett M.D. [address] [place] [phone] (Wo rk) Social History Tobacco Use Types Packs/Day Years Used Date Smoking Tobacco: Never Assessed Sex Assigned at Date Recorded Female 07/10/2022 7:32 AM CDT documented as of this encounter Plan of Treatment Upcoming Encounters Date Type Specialty Care Team Description 10/10/2022 Office Visit Neurology Karin Ramachandran M.D., M.P.H. [address] [place], [place] [phone] (Wo rk) documented as of this encounter Visit Diagnoses Not on filedocumented in this encounter
--- OUTSIDE RECORDS SUMMARY | 2022-09-11 09:27 | XMS_ITS | Encounter Summary ---
:1960 Author Organization [facility] Address [address] [place] [address] Care Team Providers Name Role Phone Unavailable Primary Care Provider Unavailable Encounter Details Date Type Department Care Team Description 10/12/2008 Hospital Encounter HX [facility] Shannon Barrett M.D. [address] [place] [address] (Wo rk) Social History Tobacco Use Types Packs/Day Years Used Date Smoking Tobacco: Never Assessed Sex Assigned at Date Recorded Female 07/10/2022 7:32 AM CDT documented as of this encounter Progress Notes Shannon Barrett M.D. - 10/12/2008 11:30 AM CST [id number] SUBJECTIVE: Zandra Lopez is an 48 year [...] notify me if there is changes. Source: [facility] Document Id: [id number] Electronically signed by Conversion, [facility] Coring Machine Operator [id number] at 04/29/2017 2:46 AM CDT documented in this encounter Miscellaneous Notes Miscellaneous - Shannon Barrett M.D. - 10/12/2008 11:30 AM CST [id number] Zandra Lopez [address] [address] October 13, 2008 Dear Ms. Zandra Taylor [...] questions or problems, please contact me at [phone] at the [facility]. Sincerely, (electronically signed to expedite delivery) Shannon Barrett M.D. INTERNAL MEDICINE Source: [facility]XTRANSXRTFS[facility] Document Id: [id number] Electronically signed by Conversion, [facility] Coring Machine Operator [id number] at 04/29/2017 2:46 AM CDT documented in this encounter Plan of Treatment Upcoming Encounters Date Type Specialty Care Team Description 10/10/2022 Office Visit Neurology Karin Ramachandran M.D., M.P.H. [address] [place], [place] [phone] (Wo rk) documented as of this encounter Visit Diagnoses Not on filedocumented in this encounter
--- OUTSIDE RECORDS SUMMARY | 2022-09-11 09:27 | XMS_ITS | Encounter Summary ---
:1960 Author Organization [facility] Address [address] [place] [address] Care Team Providers Name Role Phone Unavailable Primary Care Provider Unavailable Encounter Details Date Type Department Care Team Description 11/29/[address] [facility] Aurelia Fernández M.D. [address] [place] [address] (Wo rk) Social History Tobacco Use Types Packs/Day Years Used Date Smoking Tobacco: Never Assessed Sex Assigned at Date Recorded Female 07/10/2022 7:32 AM CDT documented as of this encounter Miscellaneous Notes Telephone Encounter - Conversion, Historical Provider Ser - 11/29/2011 12:00 AM CST [id number] After talking with the pharmacist about Lunista, pt would like to stick with Ambien. Please fax rx to [facility]. Source: [facility]FP[facility]THXTRANSXRTFSYS Document Id: [id number] Telephone Encounter - Conversion, Historical Provider Ser - 11/29/2011 12:00 AM CST [id number] [facility] Last visit: BP Readings from Last 1 [...] CR 0.70 11/26/2011 POTASSIUM 5.0 11/26/2011 Source: [facility]ERVello SystemsSXRTFMAIMONIDES [facility] Document Id: [id number] Telephone Encounter - Faye Liao M.D. - 11/29/2011 12:00 AM CST [id number] rx done. Source: [facility]ev[facility] Sense BiosystemsXRTFReFlow Medical Document Id: [id number] Electronically signed by Conversion, [facility] Upper Marker [id number] at 04/27/2017 2:43 PM CDT Telephone Encounter - Conversion, Historical Provider Ser - 11/29/2011 12:00 AM CST [id number] faxed Source: [facility]Sev[facility] Sense BiosystemsSXRDeluxeBox Document Id: [id number] documented in this encounter Plan of Treatment Upcoming Encounters Date Type Specialty Care Team Description 10/10/2022 Office Visit Neurology Karin Ramachandran M.D., M.P.H. [address] [phone] (Wo rk) documented as of this encounter Visit Diagnoses Not on filedocumented in this encounter
--- OUTSIDE RECORDS SUMMARY | 2022-09-11 09:27 | XMS_ITS | Encounter Summary ---
:1960 Author Organization [facility] Address [address] [place] [address] Care Team Providers Name Role Phone Unavailable Primary Care Provider Unavailable Encounter Details Date Type Department Care Team Description 10/12/2008 Hospital Encounter HX NO MAPPING Shannon Barrett M.D. [address] [place] [phone] (Wo rk) Social History Tobacco Use Types Packs/Day Years Used Date Smoking Tobacco: Never Assessed Sex Assigned at Date Recorded Female 07/10/2022 7:32 AM CDT documented as of this encounter Plan of Treatment Upcoming Encounters Date Type Specialty Care Team Description 10/10/2022 Office Visit Neurology Karin Ramachandran M.D., M.P.H. [address] [place], [place] [phone] (Wo rk) documented as of this encounter Visit Diagnoses Not on filedocumented in this encounter
--- OUTSIDE RECORDS SUMMARY | 2022-09-11 09:27 | XMS_ITS | Encounter Summary ---
:1960 Author Organization [facility] Address [address] [place] [address] Care Team Providers Name Role Phone Unavailable Primary Care Provider Unavailable Encounter Details Date Type Department Care Team Description 07/11/2012 Hospital Encounter HX [facility] Shannon Garcia M.D. [address] [place] [address] (Wo rk) Social History Tobacco Use Types Packs/Day Years Used Date Smoking Tobacco: Never Assessed Sex Assigned at Date Recorded Female 07/10/2022 7:32 AM CDT documented as of this encounter Miscellaneous Notes Telephone Encounter - Conversion, Historical Provider Ser - 07/11/2012 12:00 AM CDT [id number] Zolpidem prior authorization request from [facility]. [facility] prior authorization initiated and faxed. Source: [facility]ENTERXTRANSXRTFSY Document Id: [id number] Telephone Encounter - Conversion, Historical Provider Ser - 07/11/2012 12:00 AM CDT [id number] Rec'd fax from [facility] RX approving prior auth for Zolpidem granted effective 07/11/2012 to 01/11/2013. Approval faxed to [facility] pharmacy. Source: [facility]ENTERXTRANSXRTFSY Document Id: [id number] documented in this encounter Plan of Treatment Upcoming Encounters Date Type Specialty Care Team Description 10/10/2022 Office Visit Neurology Karin Ramachandran M.D., M.P.H. [address] [place] [phone] (Wo rk) documented as of this encounter Visit Diagnoses Not on filedocumented in this encounter
--- OUTSIDE RECORDS SUMMARY | 2022-09-11 09:27 | XMS_ITS | Encounter Summary ---
:1960 Author Organization [facility] Address [address] [place] [address] Care Team Providers Name Role Phone Unavailable Primary Care Provider Unavailable Encounter Details Date Type Department Care Team Description 10/12/2008 Hospital Encounter HX [facility] XRAY Provider, Histori darlin Social History Tobacco Use Types Packs/Day Years Used Date Smoking Tobacco: Never Assessed Sex Assigned at Date Recorded Female 07/10/2022 7:32 AM CDT documented as of this encounter Plan of Treatment Upcoming Encounters Date Type Specialty Care Team Description 10/10/2022 Office Visit Neurology Karin Ramachandran M.D., M.P.H. [address] [place], [place] [phone] (Wo rk) documented as of this encounter Visit Diagnoses Not on filedocumented in this encounter
--- OUTSIDE RECORDS SUMMARY | 2022-09-11 09:27 | XMS_ITS | Encounter Summary ---
:1960 Author Organization [facility] Address [address] [place] [address] Care Team Providers Name Role Phone Unavailable Primary Care Provider Unavailable Encounter Details Date Type Department Care Team Description 11/21/2009 Hospital Encounter HX NO MAPPING Shannon Barrett M.D. [address] [place] [phone] (Wo rk) Social History Tobacco Use Types Packs/Day Years Used Date Smoking Tobacco: Never Assessed Sex Assigned at Date Recorded Female 07/10/2022 7:32 AM CDT documented as of this encounter Plan of Treatment Upcoming Encounters Date Type Specialty Care Team Description 10/10/2022 Office Visit Neurology Karin Ramachandran M.D., M.P.H. [address] [place], [place] [phone] (Wo rk) documented as of this encounter Visit Diagnoses Not on filedocumented in this encounter
--- OUTSIDE RECORDS SUMMARY | 2022-09-11 09:27 | XMS_ITS | Encounter Summary ---
:1960 Author Organization [facility] Address [address] [place] [address] Care Team Providers Name Role Phone Unavailable Primary Care Provider Unavailable Encounter Details Date Type Department Care Team Description 03/23/2010 Hospital Encounter HX [facility] Aurelia Fernández M.D. [address] [place] [address] (Wo rk) Social History Tobacco Use Types Packs/Day Years Used Date Smoking Tobacco: Never Assessed Sex Assigned at Date Recorded Female 07/10/2022 7:32 AM CDT documented as of this encounter Miscellaneous Notes Telephone Encounter - Conversion, Historical Provider Ser - 03/23/2010 12:00 AM CDT [id number] Situation/What is the patients concern/need: patient called and has yeast infection Clinical Background/Recent Intervention: Last seen by you for refills 02/01 Recommendation/Patient Request: Was wondering if she could get a rx of diflucan to [facility] Best number(s) to reach patient: [phone] (home) Source: [facility]ENTERXTDELROYSXRTFSY Document Id: [id number] Telephone Encounter - Faye Liao M.D. - 03/23/2010 12:00 AM CDT [id number] Forwarding to PCP. I did not discuss or prescribe anything related to yeast infections with her at that appt in January. Source: [facility]ENTERXTDELROYSXRTFSY Document Id: [id number] Electronically signed by Conversion, [facility] Broach Grinder [id number] at 04/28/2017 12:55 PM CDT Telephone Encounter - Shannon Barrett M.D. - 03/23/2010 12:00 AM CDT [id number] Recommend that pt be seen and diagnosis confirmed prior to meds..She has no reason to get a yeast infection,so it may be bacterial vaginosis. Source: [facility] Document Id: [id number] Electronically signed by Conversion, [facility] Broach Grinder [id number] at 04/28/2017 12:55 PM CDT Telephone Encounter - Conversion, Historical Provider Ser - 03/23/2010 12:00 AM CDT [id number] Left message to call Source: [facility] Document Id: [id number] Telephone Encounter - Conversion, Historical Provider Ser - 03/23/2010 12:00 AM CDT [id number] patient called and she got otc meds to try and if not better by Saturday will call to be seen Source: [facility] Document Id: [id number] documented in this encounter Plan of Treatment Upcoming Encounters Date Type Specialty Care Team Description 10/10/2022 Office Visit Neurology Karin Ramachandran M.D., M.P.H. [address] [place], [place] [phone] (Wo rk) documented as of this encounter Visit Diagnoses Not on filedocumented in this encounter
--- OUTSIDE RECORDS SUMMARY | 2022-09-11 09:27 | XMS_ITS | Encounter Summary ---
:1960 Author Organization [facility] Address [address] [place] [address] Care Team Providers Name Role Phone Unavailable Primary Care Provider Unavailable Encounter Details Date Type Department Care Team Description 12/17/2011 Hospital Encounter [facility] Aurelia Núñez M.D. [address] [place] [address] (Wo rk) Social History Tobacco Use Types Packs/Day Years Used Date Smoking Tobacco: Never Assessed Sex Assigned at Date Recorded Female 07/10/2022 7:32 AM CDT documented as of this encounter Plan of Treatment Upcoming Encounters Date Type Specialty Care Team Description 10/10/2022 Office Visit Neurology Karin Ramachandran M.D., M.P.H. [address] [place], [place] [phone] (Wo rk) documented as of this encounter Visit Diagnoses Not on filedocumented in this encounter
--- OUTSIDE RECORDS SUMMARY | 2022-09-11 09:27 | XMS_ITS | Encounter Summary ---
:1960 Author Organization [facility] Address [address] [place] [address] Care Team Providers Name Role Phone Unavailable Primary Care Provider Unavailable Encounter Details Date Type Department Care Team Description 03/28/2011 Hospital Encounter HX [facility] Shannon Buitrago M.D. [address] [place] [address] (Wo rk) Social History Tobacco Use Types Packs/Day Years Used Date Smoking Tobacco: Never Assessed Sex Assigned at Date Recorded Female 07/10/2022 7:32 AM CDT documented as of this encounter Miscellaneous Notes Telephone Encounter - Conversion, Historical Provider Ser - 03/28/2011 12:00 AM CDT [id number] [facility] Last visit: BP Readings from Last 1 [...] microalbumin:1] normal 0 - 25 . Source: [facility]XTRANSXRTFS[facility] Document Id: [id number] Telephone Encounter - Sera Stephens R.N. - 03/28/2011 12:00 AM CDT [id number] Last visit:07/24/10 Yanni--pt to rtc in 1 year BP Readings from Last 1 Encounters: 07/24/10 110/63 Unable to approve medication per the RN refill protocol due to: - Provider not in refill pool Routing to Provider for review and recommendation in Dr. Liao's absence. CAD/HTN and/or CHF labs: CR 0.75 09/01/2010 POTASSIUM 3.6 09/01/2010 TSH 3.56 09/01/2010 Source: [facility]XTRANSXRTFSYS Document Id: [id number] Electronically signed by Conversion, [facility] Production Clerks Supervisor [id number] at 04/28/2017 5:00 AM CDT Telephone Encounter - Libra Starks D.O. - 03/28/2011 12:00 AM CDT [id number] Rx faxed. Source: [facility]XTRANSXRTFSEAVIEW [facility]OS[facility] Document Id: [id number] Electronically signed by Conversion, [facility] Production Clerks Supervisor [id number] at 04/28/2017 5:00 AM CDT documented in this encounter Plan of Treatment Upcoming Encounters Date Type Specialty Care Team Description 10/10/2022 Office Visit Neurology Karin Ramachandran M.D., M.P.H. [address], [place] [phone] (Wo rk) documented as of this encounter Visit Diagnoses Not on filedocumented in this encounter
--- OUTSIDE RECORDS SUMMARY | 2022-09-11 09:27 | XMS_ITS | Encounter Summary ---
:1960 Author Organization [facility] Address [address] [place] [address] Care Team Providers Name Role Phone Unavailable Primary Care Provider Unavailable Encounter Details Date Type Department Care Team Description 01/07/2013 Hospital Encounter HX [facility] Aurelia Liao M.D. [address] [place] [address] (Wo rk) Social History Tobacco Use Types Packs/Day Years Used Date Smoking Tobacco: Never Assessed Sex Assigned at Date Recorded Female 07/10/2022 7:32 AM CDT documented as of this encounter Progress Notes Faye Liao M.D. - 01/07/2013 2:00 PM CST [id number] Zandra Lopez is here for follow up [...] monitor BP 2 times a week. If [id number] consistently, will need to increase back to [...] sooner if new or worsening symptoms. Source: [facility] RWHXTRANSXRTFSYS Document Id: [id number] Electronically signed by Conversion, [facility] Condenser Tester [id number] at 04/22/2017 12:53 PM CDT documented in this encounter Miscellaneous Notes Miscellaneous - Conversion, Historical Provider Ser - 01/07/2013 2:00 PM UTILITY HELICOPTER REPAIRER [id number] 01/08/2013 Zandra Taylor [facility] [address] [place] [address] Dear Zandra: Thank you for allowing me [...] sign of concern. Thank you for choosing [facility]. Please continue with the treatment plan discussedin the office. Return as discussed or sooner if symptoms worsens or fail to improve. If you have anyfurther questions or concerns, please do not hesitate to contact us. Sincerely, Faye Liao MD [facility] [place] [facility] [address] [place] [address] Source: [facility] RWMCHXTRANSXRTFSYS Document Id: [id number] documented in this encounter Plan of Treatment Upcoming Encounters Date Type Specialty Care Team Description 10/10/2022 Office Visit Neurology Karin Ramachandran M.D., M.P.H. [address] [phone] (Wo rk) documented as of this encounter Procedures Procedure Name Priority Date/Time Associated Comments Diagnosis THYROID-STIMULATING Routine 01/07/2013 6:44 PM Re sults for this HORMONE-SENSITIVE UTILITY HELICOPTER REPAIRER procedure are in (S-TSH) the results section. HX UREA NITROGEN Routine 01/07/2013 6:14 PM Resul ts for this UTILITY HELICOPTER REPAIRER procedure are i n the results section. HX AGAP Routine 01/07/2013 6:14 PM Results f or this UTILITY HELICOPTER REPAIRER procedure are i n the results section. CREATININE WITH Routine 01/07/2013 6:14 PM Result s for this EGFR, P UTILITY HELICOPTER REPAIRER procedure are i n the results section. CREATININE WITH Routine 01/07/2013 6:14 PM Result s for this EGFR, P UTILITY HELICOPTER REPAIRER procedure are i n the results section. SODIUM, S/P Routine 01/07/2013 6:14 PM Results f or this UTILITY HELICOPTER REPAIRER procedure are i n the results section. POTASSIUM, S/P Routine 01/07/2013 6:14 PM Results for this UTILITY HELICOPTER REPAIRER procedure are i n the results section. GLUCOSE, RANDOM, S/P Routine 01/07/2013 6:14 PM R esults for this UTILITY HELICOPTER REPAIRER procedure are i n the results section. CREATININE WITH Routine 01/07/2013 6:14 PM Result s for this EGFR, S/P UTILITY HELICOPTER REPAIRER procedure are i n the results section. CHLORIDE, S/P Routine 01/07/2013 6:14 PM Results for this UTILITY HELICOPTER REPAIRER procedure are i n the results section. BICARBONATE, B/S/P Routine 01/07/2013 6:14 PM Res ults for this UTILITY HELICOPTER REPAIRER procedure are i n the results section. CALCIUM, TOT, S/P Routine 01/07/2013 6:14 PM Resu lts for this UTILITY HELICOPTER REPAIRER procedure are i n the results section. documented in this encounter Results S-TSH (Thyroid-Stimulating Hormone - Sensitive) (01/07/2013 6:44 PM UTILITY HELICOPTER REPAIRER) athologist Signature TSH 0.80 [facility] (Thyrotropin) [facility] LAB Specimen (Source) Anatomical Collection Method Collection Time Re ceived Time Location / / Volume Laterality 01/07/2013 6:44 PM UTILITY HELICOPTER REPAIRER Historical Provider LAB BLOOD ADD-ON Performing Organization Address City/State/ZIP Code Phon e Number [facility] Calcium, Total (01/07/2013 6:14 PM UTILITY HELICOPTER REPAIRER) athologist Signature Calcium, Total, 9.3 MGDL [facility] LAB Specimen (Source) Anatomical Collection Method Collection Time Re ceived Time Location / / Volume Laterality 01/07/2013 6:14 PM UTILITY HELICOPTER REPAIRER Historical Provider LAB BLOOD ADD-ON Performing Organization Address City/State/ZIP Code Phon e Number [facility] Creatinine with Estimated GFR (MDRD), Plasma (01/07/2013 6:14 PM UTILITY HELICOPTER REPAIRER) P athologist Signature eGFR >90 [id number] ED [facility] Black/ [facility] [place] LAB Specimen (Source) Anatomical Collection Method Collection Time Re ceived Time Location / / Volume Laterality 01/07/2013 6:14 PM UTILITY HELICOPTER REPAIRER Historical Provider LAB BLOOD ADD-ON Performing Organization Address City/State/ZIP Code Phon e Number [facility] Creatinine with Estimated GFR (MDRD), Plasma (01/07/2013 6:14 PM UTILITY HELICOPTER REPAIRER) P athologist Signature HXeGFR (MDRD) >90 [id number] [facility] Specimen (Source) Anatomical Collection Method Collection Time Re ceived Time Location / / Volume Laterality 01/07/2013 6:14 PM UTILITY HELICOPTER REPAIRER Historical Provider LAB BLOOD ADD-ON Performing Organization Address City/State/ZIP Code Phon e Number [facility] Creatinine with Estimated GFR (MDRD) (01/07/2013 6:14 PM UTILITY HELICOPTER REPAIRER) P athologist Signature Creatinine 0.61 MGDL [facility] Specimen (Source) Anatomical Collection Method Collection Time Re ceived Time Location / / Volume Laterality 01/07/2013 6:14 PM UTILITY HELICOPTER REPAIRER Historical Provider LAB BLOOD ADD-ON Performing Organization Address City/State/ZIP Code Phon e Number [facility] HX UREA NITROGEN (01/07/2013 6:14 PM UTILITY HELICOPTER REPAIRER) P athologist Signature Urea Nitrogen, 11 MGDL ED [facility] 24 HR, [facility] LAB Specimen (Source) Anatomical Collection Method Collection Time Re ceived Time Location / / Volume Laterality 01/07/2013 6:14 PM UTILITY HELICOPTER REPAIRER Historical Provider LAB HISTORICAL ORDERS Performing Organization Address City/State/ZIP Code Phon e Number [facility] Glucose, Random (01/07/2013 6:14 PM UTILITY HELICOPTER REPAIRER) P athologist Signature Glucose 77 MGDL [facility] Specimen (Source) Anatomical Collection Method Collection Time Re ceived Time Location / / Volume Laterality 01/07/2013 6:14 PM UTILITY HELICOPTER REPAIRER Narrative [facility] - 02/05/20 14 9:41 PM CDT Non Fasting Historical Provider LAB BLOOD TROPONIN Performing Organization Address City/State/ZIP Code Phon e Number [facility] HX AGAP (01/07/2013 6:14 PM UTILITY HELICOPTER REPAIRER) P athologist Signature Anion Gap 10 MMOLL [facility] Specimen (Source) Anatomical Collection Method Collection Time Re ceived Time Location / / Volume Laterality 01/07/2013 6:14 PM UTILITY HELICOPTER REPAIRER Historical Provider LAB HISTORICAL ORDERS Performing Organization Address City/State/ZIP Code Phon e Number [facility] Bicarbonate (01/07/2013 6:14 PM UTILITY HELICOPTER REPAIRER) P athologist Signature HX Carbon 27 MMOLL [facility] LAB Specimen (Source) Anatomical Collection Method Collection Time Re ceived Time Location / / Volume Laterality 01/07/2013 6:14 PM UTILITY HELICOPTER REPAIRER Historical Provider LAB BLOOD ADD-ON Performing Organization Address City/State/ZIP Code Phon e Number [facility] Chloride (01/07/2013 6:14 PM UTILITY HELICOPTER REPAIRER) P athologist Signature Chloride, S 107 MMOLL [facility] Specimen (Source) Anatomical Collection Method Collection Time Re ceived Time Location / / Volume Laterality 01/07/2013 6:14 PM UTILITY HELICOPTER REPAIRER Historical Provider LAB BLOOD ADD-ON Performing Organization Address City/State/ZIP Code Phon e Number [facility] Potassium, S (01/07/2013 6:14 PM UTILITY HELICOPTER REPAIRER) P athologist Signature Potassium, S 4.2 MMOLL [facility] Specimen (Source) Anatomical Collection Method Collection Time Re ceived Time Location / / Volume Laterality 01/07/2013 6:14 PM UTILITY HELICOPTER REPAIRER Historical Provider LAB BLOOD ADD-ON Performing Organization Address City/State/ZIP Code Phon e Number [facility] Sodium (01/07/2013 6:14 PM UTILITY HELICOPTER REPAIRER) P athologist Signature Sodium, S 144 MMOLL [facility] Specimen (Source) Anatomical Collection Method Collection Time Re ceived Time Location / / Volume Laterality 01/07/2013 6:14 PM UTILITY HELICOPTER REPAIRER Historical Provider LAB BLOOD ADD-ON Performing Organization Address City/State/ZIP Code Phon e Number [facility] documented in this encounter Visit Diagnoses Not on filedocumented in this encounter
--- OUTSIDE RECORDS SUMMARY | 2022-09-11 09:27 | XMS_ITS | Encounter Summary ---
:1960 Author Organization [facility] Address [address] [place] [address] Care Team Providers Name Role Phone Unavailable Primary Care Provider Unavailable Encounter Details Date Type Department Care Team Description 10/19/2008 Hospital Encounter HX [facility] Shannon Buitrago M.D. [address] [place] [address] (Wo rk) Social History Tobacco Use Types Packs/Day Years Used Date Smoking Tobacco: Never Assessed Sex Assigned at Date Recorded Female 07/10/2022 7:32 AM CDT documented as of this encounter Miscellaneous Notes Telephone Encounter - Conversion, Historical Provider Ser - 10/19/2008 12:00 AM CST [id number] [employer] Source[facility] Document Id: [id number] Telephone Encounter - Chari Stoddard R.N. - 10/19/2008 12:00 AM CST [id number] Prescription approved per RN refill protocol. Last Visit: 10/12/08 Last 1 Encounter BP Readings: Date BP 10/12/2008 108/70 CAD/HTN and or CHF labs: CR 0.85 10/12/08 POTASSIUM 4.1 10/12/08 LDL 106 09/19/07 TSH 0.48 10/12/08 [facility]: [facility] Document Id: [id number] documented in this encounter Plan of Treatment Upcoming Encounters Date Type Specialty Care Team Description 10/10/2022 Office Visit Neurology Karin Ramachandran M.D., M.P.H. [address] [phone] (Wo rk) documented as of this encounter Visit Diagnoses Not on filedocumented in this encounter
--- OUTSIDE RECORDS SUMMARY | 2022-09-11 09:27 | XMS_ITS | Encounter Summary ---
:1960 Author Organization [facility] Address [address] [place] [address] Care Team Providers Name Role Phone Unavailable Primary Care Provider Unavailable Encounter Details Date Type Department Care Team Description 09/13/2010 Hospital Encounter HX [facility] Aurelia Fernández M.D. [address] [place] [address] (Wo rk) Social History Tobacco Use Types Packs/Day Years Used Date Smoking Tobacco: Never Assessed Sex Assigned at Date Recorded Female 07/10/2022 7:32 AM CDT documented as of this encounter Miscellaneous Notes Telephone Encounter - Conversion, Historical Provider Ser - 09/13/2010 12:00 AM CDT [id number] Pt needs refill on her thyroid meds faxed to [employer] in [place]. Source: [facility] Document Id: [id number] Telephone Encounter - Alyssa Evans R.N. - 09/13/2010 12:00 AM CDT [id number] Last visit: BP Readings from Last 1 Encounters: 07/24/2010 110/63 Called patient as per letter sent 09/08, she would like to try to increase her dose to 88mcg. Order placed for 88 mcg, please update dispense and refill. Informed she may need to return for recheck of TSH TSH 3.56 09/01/2010 Source: [facility] Document Id: [id number] Electronically signed by Conversion, [facility] Stripper Machine Operator [id number] at 04/28/2017 1:39 PM CDT documented in this encounter Plan of Treatment Upcoming Encounters Date Type Specialty Care Team Description 10/10/2022 Office Visit Neurology Karin Ramachandran M.D., M.P.H. [address] [phone] (Wo rk) documented as of this encounter Visit Diagnoses Not on filedocumented in this encounter
--- OUTSIDE RECORDS SUMMARY | 2022-09-11 09:27 | XMS_ITS | Encounter Summary ---
:1960 Author Organization [facility] Address [address] [place] [address] Care Team Providers Name Role Phone Unavailable Primary Care Provider Unavailable Encounter Details Date Type Department Care Team Description 11/14/[address] [facility] Shannon Patton M.D. [address] [place], [place] [phone] (Wo rk) Social History Tobacco Use Types Packs/Day Years Used Date Smoking Tobacco: Never Assessed Sex Assigned at Date Recorded Female 07/10/2022 7:32 AM CDT documented as of this encounter Plan of Treatment Upcoming Encounters Date Type Specialty Care Team Description 10/10/2022 Office Visit Neurology Karin Ramachandran M.D., M.P.H. [address] [phone] (Wo rk) documented as of this encounter Visit Diagnoses Not on filedocumented in this encounter
--- OUTSIDE RECORDS SUMMARY | 2022-09-11 09:27 | XMS_ITS | Encounter Summary ---
:[address] [facility] Address [address] [place] [address] Care Team Providers Name Role Phone Unavailable Primary Care Provider Unavailable Encounter Details Date Type Department Care Team Description 08/04/2009 Hospital Encounter HX [facility] Shannon Buitrago M.D. [address] [place] [address] (Wo rk) Social History Tobacco Use Types Packs/Day Years Used Date Smoking Tobacco: Never Assessed Sex Assigned at Date Recorded Female 07/10/2022 7:32 AM CDT documented as of this encounter Miscellaneous Notes Telephone Encounter - Conversion, Historical Provider Ser - 08/04/2009 12:00 AM CDT [id number] Accepting this Rx will FAX it directly to the pharmacy. Thank You! Source: [facility] Document Id: [id number] Telephone Encounter - Chante Kenyon R.N. - 08/04/2009 12:00 AM CDT [id number] Last visit: 07/12/09 Last 1 Encounter BP Readings: Date BP 07/12/2009 120/66 CAD/HTN and/or CHF labs: CR 0.72 07/12/09 POTASSIUM 4.5 07/12/09 TSH 0.57 07/12/09 Source: [facility] Document Id: [id number] documented in this encounter Plan of Treatment Upcoming Encounters Date Type Specialty Care Team Description 10/10/2022 Office Visit Neurology Karin Ramachandran M.D., M.P.H. [address] [phone] (Wo rk) documented as of this encounter Visit Diagnoses Not on filedocumented in this encounter
--- OUTSIDE RECORDS SUMMARY | 2022-09-11 09:28 | XMS_ITS | Encounter Summary ---
:1960 Author Organization [facility] Address [address] [place] [address] Care Team Providers Name Role Phone Unavailable Primary Care Provider Unavailable Encounter Details Date Type Department Care Team Description 04/15/2007 Hospital Encounter HX [facility] TIO Carrillo Charles M.D. [address] [place], [place] [address] Social History Tobacco Use Types Packs/Day Years Used Date Smoking Tobacco: Never Assessed Sex Assigned at Date Recorded Female 07/10/2022 7:32 AM CDT documented as of this encounter Progress Notes Zandra Coles, R.N. - 04/15/2007 2:00 PM CDT [id number] Addended by: ZANDRA COLES on: 04/15/2007 4:06:49 PM Modules accepted: Orders, SmartSet Source: [facility] BILOX[facility] Document Id: [id number] Electronically signed by Gabriela [facility] Election Clerk [id number] at 04/29/2017 8:34 AM CDT Carrillo Persaud M.D. - 04/15/2007 2:00 PM CDT [id number] CLINIC ENCOUNTER SUBJECTIVE: Zandra is about five [...] 10-12 weeks follow-up visit. Carrillo Persaud M.D. EUGENIER/erwin cc: Source: [facility] BILOX[facility]XSYS Document Id: [id number] Electronically signed by Conversion, [facility] Election Clerk [id number] at 04/29/2017 8:34 AM CDT documented in this encounter Miscellaneous Notes Miscellaneous - Carrillo Persaud M.D. - 04/15/2007 2:00 PM CDT [id number] Zandra Lopez [address] [address] MR# [id number] April 15, 2007 Dear Zandra Lopez This letter confirms that you are recovering from left shoulder surgery, and should be able to return to light duty 04/16/07 with a 5 lb lifting limit, and nothing higher than shoulder height. If there are questions, please call. Sincerely, Carrillo Persaud M.D. ORTHOPEDIC SURGERY [facility] Source: [facility] Document Id: [id number] Electronically signed by Conversion, [facility] Election Clerk [id number] at 04/29/2017 8:34 AM CDT documented in this encounter Plan of Treatment Upcoming Encounters Date Type Specialty Care Team Description 10/10/2022 Office Visit Neurology Karin Ramachandran M.D., M.P.H. [address] [place] [phone] (Wo rk) documented as of this encounter Visit Diagnoses Not on filedocumented in this encounter
--- OUTSIDE RECORDS SUMMARY | 2022-09-11 09:28 | XMS_ITS | Encounter Summary ---
:1960 Author Organization [facility] Address [address] [place] [address] Care Team Providers Name Role Phone Unavailable Primary Care Provider Unavailable Encounter Details Date Type Department Care Team Description 09/19/2007 Hospital Encounter HX [facility] TIO INTERNShannon Lewis M.D. [address] [place] [address] (Wo rk) Social History Tobacco Use Types Packs/Day Years Used Date Smoking Tobacco: Never Assessed Sex Assigned at Date Recorded Female 07/10/2022 7:32 AM CDT documented as of this encounter Progress Notes Shannon Vergara M.D. - 09/19/2007 9:30 AM CDT [id number] Addended by: SHANNON VERGARA on: 09/22/2007 9:09:23 AM Modules accepted: Orders Source: [facility] Document Id: [id number] Electronically signed by Gabriela [facility] Service Delivery Management Consultant [id number] at 04/29/2017 2:00 PM CDT Shannon Vergara M.D. - 09/19/2007 9:30 AM CDT [id number] SUBJECTIVE: Patient here for a physical. HYPERTENSION: [...] aches. No H/O back pain or discomfort. COO: No headaches. No dizziness, seizures, tremors, numbness, [...] Exam: Normal tone. No masses. No tenderness. COO: Alert and oriented x3. Cranial nerves intact. [...] how to prevent dependence .Discussed alternates. Source: [facility] Document Id: [id number] Electronically signed by Conversion, [facility] Service Delivery Management Consultant [id number] at 04/29/2017 2:00 PM CDT documented in this encounter Miscellaneous Notes Nancycellpepper - Shannon Vergara M.D. - 09/19/2007 9:30 AM CDT [id number] Zandra Haleyhl [address] [place] [address] September 22, 2007 Dear Zandra Lopez: I [...] questions or problems, please contact me at [phone] in Internal Medicine. Sincerely, (electronically signed to expedite delivery) Shannon Vergara M.D. INTERNAL MEDICINE Source: [facility] Document Id: [id number] Electronically signed by Conversion, [facility] Service Delivery Management Consultant [id number] at 04/29/2017 2:00 PM CDT Miscellaneous - Shannon Vergara M.D. - 09/19/2007 9:30 AM CDT [id number] Zandra Taylor [facility] [address] [address] November 14, 2007 Dear Zandra, I am happy to inform you that your recent cervical cancer screening test (PAP smear) was normal. Preventative screening such as this helps insure your health for years to come. Congratulations for taking care of yourself! Please contact my office at [phone] if you have any further questions. Sincerely, (electronically signed to expedite delivery) Shannon Fraga M.D. Internal Medicine [facility] Source: [facility] Document Id: [id number] Electronically signed by Gabriela [facility] Service Delivery Management Consultant [id number] at 04/29/2017 2:00 PM CDT documented in this encounter Plan of Treatment Upcoming Encounters Date Type Specialty Care Team Description 10/10/2022 Office Visit Neurology Karin Ramachandran M.D., M.P.H. [address] [place], [place] [phone] (Wo rk) documented as of this encounter Visit Diagnoses Not on filedocumented in this encounter
--- OUTSIDE RECORDS SUMMARY | 2022-09-11 09:28 | XMS_ITS | Encounter Summary ---
:1960 Author Organization [facility] Address [address] [place] [address] Care Team Providers Name Role Phone Unavailable Primary Care Provider Unavailable Encounter Details Date Type Department Care Team Description 09/25/2007 Hospital Encounter HX NO MAPPING Shannon Barrett M.D. [address] [place] [phone] (Wo rk) Social History Tobacco Use Types Packs/Day Years Used Date Smoking Tobacco: Never Assessed Sex Assigned at Date Recorded Female 07/10/2022 7:32 AM CDT documented as of this encounter Plan of Treatment Upcoming Encounters Date Type Specialty Care Team Description 10/10/2022 Office Visit Neurology Karin Ramachandran M.D., M.P.H. [address] [place], [place] [phone] (Wo rk) documented as of this encounter Visit Diagnoses Not on filedocumented in this encounter
--- OUTSIDE RECORDS SUMMARY | 2022-09-11 09:28 | XMS_ITS | Encounter Summary ---
:1960 Author Organization [facility] Address [address] [place] [address] Care Team Providers Name Role Phone Unavailable Primary Care Provider Unavailable Encounter Details Date Type Department Care Team Description 02/17/2008 Hospital Encounter HX [facility] Shannon Buitrago M.D. [address] [place] [address] (Wo rk) Social History Tobacco Use Types Packs/Day Years Used Date Smoking Tobacco: Never Assessed Sex Assigned at Date Recorded Female 07/10/2022 7:32 AM CDT documented as of this encounter Miscellaneous Notes Telephone Encounter - Conversion, Historical Provider Ser - 02/17/2008 12:00 AM CDT [id number] Last visit with pcp 08/31. Last refill was for 30 on 11/20/07. patient called and would like a refill. Source: [facility] Document Id: [id number] documented in this encounter Plan of Treatment Upcoming Encounters Date Type Specialty Care Team Description 10/10/2022 Office Visit Neurology Karin Ramachandran M.D., M.P.H. [address] [place], [place] [phone] (Wo rk) documented as of this encounter Visit Diagnoses Not on filedocumented in this encounter
--- OUTSIDE RECORDS SUMMARY | 2022-09-11 09:28 | XMS_ITS | Encounter Summary ---
:1960 Author Organization [facility] Address [address] [place] [address] Care Team Providers Name Role Phone Unavailable Primary Care Provider Unavailable Encounter Details Date Type Department Care Team Description 08/12/2008 Hospital Encounter HX [facility] Shannon Buitrago M.D. [address] [place] [phone] (Wo rk) Social History Tobacco Use Types Packs/Day Years Used Date Smoking Tobacco: Never Assessed Sex Assigned at Date Recorded Female 07/10/2022 7:32 AM CDT documented as of this encounter Miscellaneous Notes Miscellaneous - Conversion, Historical Provider Ser - 08/12/2008 12:00 AM CDT [id number] Zandra Lopez [id number] [address] August 13, 2008 Dear Zandra Lopez APPOINTMENT REMINDER: Our records [...] future. You may call our office at [phone] or to schedule a visit. Please disregard this notice if you have already made an appointment. Sincerely, Sera Ramos [facility] Source: [facility] Document Id: [id number] Telephone Encounter - Conversion, Historical Provider Ser - 08/12/2008 12:00 AM CDT [id number] Last visit with pcp 05/02 Source: [facility] Document Id: [id number] Telephone Encounter - Shannon Barrett M.D. - 08/12/2008 12:00 AM CDT [id number] Needs to be seen prior to next refill. Source: [facility] Document Id: [id number] Telephone Encounter - Conversion, Historical Provider Ser - 08/12/2008 12:00 AM CDT [id number] Letter out Source: [facility] Document Id: [id number] documented in this encounter Plan of Treatment Upcoming Encounters Date Type Specialty Care Team Description 10/10/2022 Office Visit Neurology Karin Ramachandran M.D., M.P.H. [address] [phone] (Wo rk) documented as of this encounter Visit Diagnoses Not on filedocumented in this encounter
--- OUTSIDE RECORDS SUMMARY | 2022-09-11 09:28 | XMS_ITS | Encounter Summary ---
:1960 Author Organization [facility] Address [address] [place] [address] Care Team Providers Name Role Phone Unavailable Primary Care Provider Unavailable Encounter Details Date Type Department Care Team Description 10/11/2008 Hospital Encounter HX NO MAPPING Shannon Barrett M.D. [address] [place] [phone] (Wo rk) Social History Tobacco Use Types Packs/Day Years Used Date Smoking Tobacco: Never Assessed Sex Assigned at Date Recorded Female 07/10/2022 7:32 AM CDT documented as of this encounter Plan of Treatment Upcoming Encounters Date Type Specialty Care Team Description 10/10/2022 Office Visit Neurology Karin Ramachandran M.D., M.P.H. [address] [place], [place] [phone] (Wo rk) documented as of this encounter Visit Diagnoses Not on filedocumented in this encounter
--- OUTSIDE RECORDS SUMMARY | 2022-09-11 09:28 | XMS_ITS | Encounter Summary ---
:1960 Author Organization [facility] Address [address] [place] [address] Care Team Providers Name Role Phone Unavailable Primary Care Provider Unavailable Encounter Details Date Type Department Care Team Description 09/25/2007 Hospital Encounter HX [facility] XRAY Provider, Histori darlin Social History Tobacco Use Types Packs/Day Years Used Date Smoking Tobacco: Never Assessed Sex Assigned at Date Recorded Female 07/10/2022 7:32 AM CDT documented as of this encounter Plan of Treatment Upcoming Encounters Date Type Specialty Care Team Description 10/10/2022 Office Visit Neurology Karin Ramachandran M.D., M.P.H. [address] [place], [place] [phone] (Wo rk) documented as of this encounter Visit Diagnoses Not on filedocumented in this encounter
--- OUTSIDE RECORDS SUMMARY | 2022-09-11 09:28 | XMS_ITS | Encounter Summary ---
:1960 Author Organization [facility] Address [address] [place] [address] Care Team Providers Name Role Phone Unavailable Primary Care Provider Unavailable Encounter Details Date Type Department Care Team Description 04/21/2008 Hospital Encounter HX [facility] Shannon Garcia M.D. [address] [place] [address] (Wo rk) Social History Tobacco Use Types Packs/Day Years Used Date Smoking Tobacco: Never Assessed Sex Assigned at Date Recorded Female 07/10/2022 7:32 AM CDT documented as of this encounter Miscellaneous Notes Telephone Encounter - Alyssa Evans R.N. 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 Last Visit: with PCP on 09/19/07, needs to F/U in 6 months, no appointment made Last 1 Encounter BP Readings: Date BP 09/19/2007 112/80 Accepting this Rx will FAX it directly to the pharmacy. Source[facility] Document Id: [id number] Electronically signed by Conversion, [facility] Pocket Setter Lockstitch [id number] at 04/29/2017 6:55 AM CDT Telephone Encounter - Shannon Barrett M.D. - 04/21/2008 12:00 AM CDT [id number] Needs to be seen prior to refill. Source: [facility] Document Id: [id number] Electronically signed by Conversion, [facility] Pocket Setter Lockstitch [id number] at 04/29/2017 6:55 AM CDT Telephone Encounter - Alyssa Evans R.N. - 04/21/2008 12:00 AM CDT [id number] Called patient and appointment arranged to see PCP tomorrow. Source: [facility] Document Id: [id number] Electronically signed by Conversion, [facility] Pocket Setter Lockstitch [id number] at 04/29/2017 6:55 AM CDT documented in this encounter Plan of Treatment Upcoming Encounters Date Type Specialty Care Team Description 10/10/2022 Office Visit Neurology Karin Ramachandran M.D., M.P.H. [address] [phone] (Wo rk) documented as of this encounter Visit Diagnoses Not on filedocumented in this encounter
--- OUTSIDE RECORDS SUMMARY | 2022-09-11 09:28 | XMS_ITS | Encounter Summary ---
:1960 Author Organization [facility] Address [address] [place] [address] Care Team Providers Name Role Phone Unavailable Primary Care Provider Unavailable Encounter Details Date Type Department Care Team Description 11/20/2007 Hospital Encounter HX [facility] Melonie Arguello M.D. [address] [place], [place] [phone] (Wo rk) Social History Tobacco Use Types Packs/Day Years Used Date Smoking Tobacco: Never Assessed Sex Assigned at Date Recorded Female 07/10/2022 7:32 AM CDT documented as of this encounter Miscellaneous Notes Telephone Encounter - Conversion, Historical Provider Ser - 11/20/2007 12:00 AM CST [id number] This is one of Shannon's patients, she was seen by her 09/19/07 for a pe. She had this med filled than for 30 pills. Would like a refill, chould you please address in pcp absence. Thanks [facility] Document Id: [id number] Telephone Encounter - Conversion, Historical Provider Ser - 11/20/2007 12:00 AM CST [id number] patient called Source[facility] Document Id: [id number] documented in this encounter Plan of Treatment Upcoming Encounters Date Type Specialty Care Team Description 10/10/2022 Office Visit Neurology Karin Ramachandran M.D., M.P.H. [address] [place], [place] [phone] (Wo rk) documented as of this encounter Visit Diagnoses Not on filedocumented in this encounter
--- OUTSIDE RECORDS SUMMARY | 2022-09-11 09:28 | XMS_ITS | Encounter Summary ---
:1960 Author Organization [facility] Address [address] [place] [address] Care Team Providers Name Role Phone Unavailable [...] Visit Neurology Karin Ramachandran M.D., M.P.H. [address] [place], [place] [phone] (Wo rk) documented as of this encounter Visit Diagnoses Not on filedocumented in this encounter
--- OUTSIDE RECORDS SUMMARY | 2022-09-11 09:28 | XMS_ITS | Encounter Summary ---
:1960 Author Organization [facility] Address [address] [place] [address] Care Team Providers Name Role Phone Unavailable Primary Care Provider Unavailable Encounter Details Date Type Department Care Team Description 03/20/2007 Hospital Encounter HX [facility] ORTHO Lopez Coles ra REvansNEvans [address] [place], [place] [phone] Social History Tobacco Use Types Packs/Day Years Used Date Smoking Tobacco: Never Assessed Sex Assigned at Date Recorded Female 07/10/2022 7:32 AM CDT documented as of this encounter Miscellaneous Notes Telephone Encounter - Zandra Coles R.N. - 03/20/2007 12:00 AM CDT [id number] Refill for percocet. Needs signed copy. Source: [facility] Document Id: [id number] Electronically signed by Conversion, [facility] Chemical Analytical Sampler [id number] at 04/29/2017 10:22 AM CDT Telephone Encounter - Carrillo Persaud M.D. - 03/20/2007 12:00 AM CDT [id number] Done RR Source: [facility] Document Id: [id number] Electronically signed by Conversion, [facility] Chemical Analytical Sampler [id number] at 04/29/2017 10:22 AM CDT documented in this encounter Plan of Treatment Upcoming Encounters Date Type Specialty Care Team Description 10/10/2022 Office Visit Neurology Karin Ramachandran M.D., M.P.H. [address] [place], [place] [phone] ([facility]) documented as of this encounter Visit Diagnoses Not on filedocumented in this encounter
--- OUTSIDE RECORDS SUMMARY | 2022-09-11 09:28 | XMS_ITS | Encounter Summary ---
:1960 Author Organization [facility] Address [address] [place] [address] Care Team Providers Name Role Phone Unavailable [...] Visit Neurology Karin Ramachandran M.D., M.P.H. [address], [place] [phone] (Wo rk) documented as of this encounter Visit Diagnoses Not on filedocumented in this encounter
--- OUTSIDE RECORDS SUMMARY | 2022-09-11 09:28 | XMS_ITS | Encounter Summary ---
:1960 Author Organization [facility] Address [address] [place] [address] Care Team Providers Name Role Phone Unavailable Primary Care Provider Unavailable Encounter Details Date Type Department Care Team Description 01/09/2008 Hospital Encounter HX [facility] Shannon Tan M.D. [address] [place] [phone] (Wo rk) Social History Tobacco Use Types Packs/Day Years Used Date Smoking Tobacco: Never Assessed Sex Assigned at Date Recorded Female 07/10/2022 7:32 AM CDT documented as of this encounter Miscellaneous Notes Telephone Encounter - Conversion, Historical Provider Ser - 01/09/2008 12:00 AM CST [id number] Accepting this Rx will FAX it directly to the pharmacy. Thank You! Source: [facility] Document Id: [id number] Telephone Encounter - Conversion, Historical Provider Ser - 01/09/2008 12:00 AM CST [id number] Called pharmacy as pt received 10 refills in August. Pharmacy verified she does have refills. Source: [facility] Document Id: [id number] documented in this encounter Plan of Treatment Upcoming Encounters Date Type Specialty Care Team Description 10/10/2022 Office Visit Neurology Karin Ramachandran M.D., M.P.H. [address] [place], [place] [phone] (Wo rk) documented as of this encounter Visit Diagnoses Not on filedocumented in this encounter
--- OUTSIDE RECORDS SUMMARY | 2022-09-11 09:28 | XMS_ITS | Encounter Summary ---
:1960 Author Organization [facility] Address [address] [place] [address] Care Team Providers Name Role Phone Unavailable Primary Care Provider Unavailable Encounter Details Date Type Department Care Team Description 04/27/2008 Hospital Encounter HX [facility] INTERNMED Shannon Barrett M.D. [address] [place] [address] (Wo rk) Social History Tobacco Use Types Packs/Day Years Used Date Smoking Tobacco: Never Assessed Sex Assigned at Date Recorded Female 07/10/2022 7:32 AM CDT documented as of this encounter Progress Notes Shannon Barrett M.D. - 04/27/2008 4:30 PM CDT [id number] Comment: Die Technician. SUBJECTIVE: Zandra Lopez is an 47 year [...] if she can stay on the Ambien care home or if there is a better alternative [...] time. PCN/SS/jir HPI ROS Physical Exam Source: [facility] Document Id: [id number] Electronically signed by Conversion, [facility] Die Technician [id number] at 04/29/2017 4:57 AM CDT documented in this encounter Miscellaneous Notes Miscellaneous - Shannon Barrett M.D. - 04/27/2008 4:30 PM CDT [id number] Zandra Lopez [id number] [phone] June 07, 2008 Dear Ms. Zandra Lopez: [...] questions or problems, please contact me at [phone] in Internal Medicine. Sincerely, (electronically signed to expedite delivery) Shannon Barrett M.D. INTERNAL MEDICINE Source: [facility] Document Id: [id number] Electronically signed by Conversion, [facility] Die Technician [id number] at 04/29/2017 4:57 AM CDT documented in this encounter Plan of Treatment Upcoming Encounters Date Type Specialty Care Team Description 10/10/2022 Office Visit Neurology Karin Ramachandran M.D., M.P.H. [address] [phone] (Wo rk) documented as of this encounter Visit Diagnoses Not on filedocumented in this encounter
--- OUTSIDE RECORDS SUMMARY | 2022-09-11 09:28 | XMS_ITS | Encounter Summary ---
:1960 Author Organization [facility] Address [address] [place] [address] Care Team Providers Name Role Phone Unavailable Primary Care Provider Unavailable Encounter Details Date Type Department Care Team Description 10/11/2008 Hospital Encounter H[facility] Shannon Patton M.D. [address] [place], [place] [phone] (Wo rk) Social History Tobacco Use Types Packs/Day Years Used Date Smoking Tobacco: Never Assessed Sex Assigned at Date Recorded Female 07/10/2022 7:32 AM CDT documented as of this encounter Plan of Treatment Upcoming Encounters Date Type Specialty Care Team Description 10/10/2022 Office Visit Neurology Karin Ramachandran M.D., M.P.H. [address] [phone] (Wo rk) documented as of this encounter Visit Diagnoses Not on filedocumented in this encounter
--- OUTSIDE RECORDS SUMMARY | 2022-09-11 09:28 | XMS_ITS | Encounter Summary ---
:1960 Author Organization [facility] Address [address] [place] [address] Care Team Providers Name Role Phone Unavailable Primary Care Provider Unavailable Encounter Details Date Type Department Care Team Description 06/22/2008 Hospital Encounter [facility] Melonie Arguello M.D. [facility] [place], [place] [phone] (Wo rk) Social History Tobacco Use Types Packs/Day Years Used Date Smoking Tobacco: Never Assessed Sex Assigned at Date Recorded Female 07/10/2022 7:32 AM CDT documented as of this encounter Miscellaneous Notes Telephone Encounter - Alyssa Evans R.N. - 06/22/2008 12:00 AM CDT [id number] Patient called requesting refill for Ambien. Last Visit: with PCP on 04/27/08 Last 1 Encounter BP Readings: Date BP 04/27/2008 112/82 Will forward request to Dr. Arguello in Dr. Barrett's absence. Source: [facility] Document Id: [id number] Telephone Encounter - Robbie Arguello M.D. - 06/22/2008 12:00 AM CDT [id number] Approved x [address] Barrett Source: [facility] Document Id: [id number] documented in this encounter Plan of Treatment Upcoming Encounters Date Type Specialty Care Team Description 10/10/2022 Office Visit Neurology Karin Ramachandran M.D., M.P.H. [address] [phone] (Wo rk) documented as of this encounter Visit Diagnoses Not on filedocumented in this encounter
--- OUTSIDE RECORDS SUMMARY | 2022-09-11 09:28 | XMS_ITS | Encounter Summary ---
:1960 Author Organization [facility] Address [address] [place] [address] Care Team Providers Name Role Phone Unavailable Primary Care Provider Unavailable Encounter Details Date Type Department Care Team Description 09/12/2007 Hospital Encounter HX [facility] TIO Shannon Garcia M.D. [address] [place] [address] (Wo rk) Social History Tobacco Use Types Packs/Day Years Used Date Smoking Tobacco: Never Assessed Sex Assigned at Date Recorded Female 07/10/2022 7:32 AM CDT documented as of this encounter Miscellaneous Notes Telephone Encounter - Shannon Barrett M.D. - 09/12/2007 12:00 AM CDT [id number] Needs to be seen prior to next refill. Source: [facility] Document Id: [id number] Telephone Encounter - Alyssa Evans R.N. - 09/12/2007 12:00 AM CDT [id number] Patient calls requesting refill for Actonel. Source: [facility] Document Id: [id number] Telephone Encounter - Nati Desouza R.N. - 09/12/2007 12:00 AM CDT [id number] Unable to approve medication per the RN refill protocol due to: - overdue labs Last office visit was 01/16/07 per dictation to return in 4 weeks. Last 1 BP Readings: Date: BP: 03/05/2007 112/70 CAD/HTN and or CHF labs: CR 0.85 01/18/2006 POTASSIUM 3.8 01/18/2006 LDL 96 11/16/2002 TSH 1.16 11/26/2005 Source: [facility] Document Id: [id number] documented in this encounter Plan of Treatment Upcoming Encounters Date Type Specialty Care Team Description 10/10/2022 Office Visit Neurology Karin Ramachandran M.D., M.P.H. [address] [phone] (Wo rk) documented as of this encounter Visit Diagnoses Not on filedocumented in this encounter
--- OUTSIDE RECORDS SUMMARY | 2022-09-11 09:28 | XMS_ITS | Encounter Summary ---
:1960 Author Organization [facility] Address [address] [place] [address] Care Team Providers Name Role Phone Unavailable Primary Care Provider Unavailable Encounter Details Date Type Department Care Team Description 07/21/2007 Hospital Encounter HX [facility] Shannon Buitrago M.D. [address] [place] [address] (Wo rk) Social History Tobacco Use Types Packs/Day Years Used Date Smoking Tobacco: Never Assessed Sex Assigned at Date Recorded Female 07/10/2022 7:32 AM CDT documented as of this encounter Miscellaneous Notes Telephone Encounter - Conversion, Historical Provider Ser - 07/21/2007 12:00 AM CDT [id number] Last visit with Dr. Hauser for preop 03/05/07 [facility] Source: [facility] Document Id: [id number] Telephone Encounter - Conversion, Historical Provider Ser - 07/21/2007 12:00 AM CDT [id number] Unable to approve medication per the RN refill protocol due to: Over due labs Last visit:01/16/07 Last 1 BP Readings: Date: BP: 03/05/2007 112/70 TSH 1.16 11/26/2005 CAD/HTN and or CHF labs: CR 0.85 01/18/2006 POTASSIUM 3.8 01/18/2006 Source: [facility] Document Id: [id number] documented in this encounter Plan of Treatment Upcoming Encounters Date Type Specialty Care Team Description 10/10/2022 Office Visit Neurology Karin Ramachandran M.D., M.P.H. [address] [phone] (Wo rk) documented as of this encounter Visit Diagnoses Not on filedocumented in this encounter
--- OUTSIDE RECORDS SUMMARY | 2022-09-11 09:28 | XMS_ITS | Encounter Summary ---
:[address] [facility] Address [address] [place] [address] Care Team Providers Name Role Phone Unavailable Primary Care Provider Unavailable Encounter Details Date Type Department Care Team Description 10/24/2007 Hospital Encounter HX [facility] Shannon Buitrago M.D. [address] [place] [address] (Wo rk) Social History Tobacco Use Types Packs/Day Years Used Date Smoking Tobacco: Never Assessed Sex Assigned at Date Recorded Female 07/10/2022 7:32 AM CDT documented as of this encounter Miscellaneous Notes Telephone Encounter - Conversion, Historical Provider Ser - 10/24/2007 12:00 AM CST [id number] Accepting this Rx will FAX it directly to the pharmacy. Thank You! Source: [facility] Document Id: [id number] Telephone Encounter - Chante Kenyon R.N. - 10/24/2007 12:00 AM CLINIC MGR [id number] Prescription approved per RN refill protocol. Last visit: 09/19/07 Last 1 BP Readings: Date: BP: 09/19/2007 112/80 CAD/HTN and or CHF labs: CR 0.85 01/18/2006 POTASSIUM 3.8 01/18/2006 LDL 106 09/19/2007 TSH 1.87 09/19/2007 Source: [facility] Document Id: [id number] documented in this encounter Plan of Treatment Upcoming Encounters Date Type Specialty Care Team Description 10/10/2022 Office Visit Neurology Karin Ramachandran M.D., M.P.H. [address] [phone] (Wo rk) documented as of this encounter Visit Diagnoses Not on filedocumented in this encounter
--- OUTSIDE RECORDS SUMMARY | 2022-09-11 09:29 | XMS_ITS | Encounter Summary ---
:1960 Author Organization [facility] Address [address] [place] [address] Care Team Providers Name Role Phone Unavailable Primary Care Provider Unavailable Encounter Details Date Type Department Care Team Description 03/11/2007 Hospital Encounter HX [facility] Provider, Histor ical Social History Tobacco Use Types Packs/Day Years Used Date Smoking Tobacco: Never Assessed Sex Assigned at Date Recorded Female 07/10/2022 7:32 AM CDT documented as of this encounter Miscellaneous Notes Telephone Encounter - Conversion, Historical Provider Ser - 03/11/2007 12:00 AM CDT [id number] TELEPHONE TRIAGE ENCOUNTER FORM Date: 03/11/2007 PCP: Shannon Barrett MD Patient Name: Zandra Lopez Gender: female : 1960 Age: [age] year old Time: 11:28 AM Phone Numbers: [phone] (home) Pharmacy: [facility] [facility] [facility] Presenting Problem: Left shoulder post operative pain [...] to plan? Yes EVALUATION / FOLLOW-UP [facility] Document Id: [id number] documented in this encounter Plan of Treatment Upcoming Encounters Date Type Specialty Care Team Description 10/10/2022 Office Visit Neurology Karin Ramachandran M.D., M.P.H. [address] [phone] (Wo rk) documented as of this encounter Visit Diagnoses Not on filedocumented in this encounter
--- OUTSIDE RECORDS SUMMARY | 2022-09-11 09:29 | XMS_ITS | Encounter Summary ---
:1960 Author Organization [facility] Address [address] [place] [address] Care Team Providers Name Role Phone Unavailable [...] Provider Ser - 03/05/2007 9:30 AM CDT [id number] HISTORY & PHYSICAL CC: Chief Complaint Patient [...] Hauser M.D. Department of Internal Medicine [facility]: [facility] Document Id: [id number] documented in this encounter Plan of Treatment Upcoming Encounters Date Type Specialty Care Team Description 10/10/2022 Office Visit Neurology Karin Ramachandran M.D., M.P.H. [address] [phone] ([facility]) documented as of this encounter Visit Diagnoses Not on filedocumented in this encounter
--- OUTSIDE RECORDS SUMMARY | 2022-09-11 09:29 | XMS_ITS | Encounter Summary ---
:1960 Author Organization [facility] Address [address] [place] [address] Care Team Providers Name Role Phone Unavailable Primary Care Provider Unavailable Encounter Details Date Type Department Care Team Description 02/06/2007 Hospital Encounter HX [facility] XRAY Provider, Histori darlin Social History Tobacco Use Types Packs/Day Years Used Date Smoking Tobacco: Never Assessed Sex Assigned at Date Recorded Female 07/10/2022 7:32 AM CDT documented as of this encounter Plan of Treatment Upcoming Encounters Date Type Specialty Care Team Description 10/10/2022 Office Visit Neurology Karin Ramachandran M.D., M.P.H. [address] [place], [place] [phone] (Wo rk) documented as of this encounter Visit Diagnoses Not on filedocumented in this encounter
--- OUTSIDE RECORDS SUMMARY | 2022-09-11 09:29 | XMS_ITS | Encounter Summary ---
:1960 Author Organization [facility] Address [address] [place] [address] Care Team Providers Name Role Phone Unavailable Primary Care Provider Unavailable Encounter Details Date Type Department Care Team Description 03/10/2007 Hospital Encounter HX NO MAPPING Jarrod Persaud M.D. [address] [place], [place] [address] Social History Tobacco Use Types Packs/Day Years Used Date Smoking Tobacco: Never Assessed Sex Assigned at Date Recorded Female 07/10/2022 7:32 AM CDT documented as of this encounter Plan of Treatment Upcoming Encounters Date Type Specialty Care Team Description 10/10/2022 Office Visit Neurology Karin Ramachandran M.D., M.P.H. [address], [place] [phone] (Wo rk) documented as of this encounter Visit Diagnoses Not on filedocumented in this encounter
--- OUTSIDE RECORDS SUMMARY | 2022-09-11 09:29 | XMS_ITS | Encounter Summary ---
:1960 Author Organization [facility] Address [address] [place] [address] Care Team Providers Name Role Phone Unavailable Primary Care Provider Unavailable Encounter Details Date Type Department Care Team Description 02/20/[address] [facility] ORTHO Provider, Histor ical Social History Tobacco Use Types Packs/Day Years Used Date Smoking Tobacco: Never Assessed Sex Assigned at Date Recorded Female 07/10/2022 7:32 AM CDT documented as of this encounter Plan of Treatment Upcoming Encounters Date Type Specialty Care Team Description 10/10/2022 Office Visit Neurology Karin Ramachandran M.D., M.P.H. [address] [place], [place] [phone] (Wo rk) documented as of this encounter Visit Diagnoses Not on filedocumented in this encounter
--- OUTSIDE RECORDS SUMMARY | 2022-09-11 09:29 | XMS_ITS | Encounter Summary ---
:1960 Author Organization [facility] Address [address] [place] [address] Care Team Providers Name Role Phone Unavailable Primary Care Provider Unavailable Encounter Details Date Type Department Care Team Description 02/06/2007 Hospital Encounter HX NO MAPPING Jarrod Persaud M.D. [address] [place], [place] [address] Social History Tobacco Use Types Packs/Day Years Used Date Smoking Tobacco: Never Assessed Sex Assigned at Date Recorded Female 07/10/2022 7:32 AM CDT documented as of this encounter Plan of Treatment Upcoming Encounters Date Type Specialty Care Team Description 10/10/2022 Office Visit Neurology Karin Ramachandran M.D., M.P.H. [address], [place] [phone] (Wo rk) documented as of this encounter Visit Diagnoses Not on filedocumented in this encounter
--- OUTSIDE RECORDS SUMMARY | 2022-09-11 09:29 | XMS_ITS | Encounter Summary ---
:1960 Author Organization [facility] Address [address] [place] [address] Care Team Providers Name Role Phone Unavailable Primary Care Provider Unavailable Encounter Details Date Type Department Care Team Description 03/05/2007 Hospital Encounter HX [facility] Nishant Hughes, P.T. [address] [place], [place] [phone] Social History Tobacco Use Types Packs/Day Years Used Date Smoking Tobacco: Never Assessed Sex Assigned at Date Recorded Female 07/10/2022 7:32 AM CDT documented as of this encounter Progress Notes Chelo Hughes, P.Mikey. - 03/05/2007 8:30 AM CDT [id number] PHYSICAL THERAPY PRE-OPERATIVE ASSESSMENT AND EDUCATION Patient [...] post operatively per rotator cuff protocol in [place]. Chelo Hughes, PT ICER MACHINE OPERATOR PRESENT: MARLENA MULTIDISCIPLINARY PATIENT / FAMILY EDUCATION [...] Demonstrated ability, Verbalized recall / understanding Source: [facility] Document Id: [id number] Electronically signed by Gabriela [facility] Centerdheeraj Scorekeeper [id number] at 04/29/2017 10:22 AM CDT documented in this encounter Plan of Treatment Upcoming Encounters Date Type Specialty Care Team Description 10/10/2022 Office Visit Neurology Karin Ramachandran M.D., M.P.H. [address] [place] [phone] (Wo rk) documented as of this encounter Visit Diagnoses Not on filedocumented in this encounter
--- OUTSIDE RECORDS SUMMARY | 2022-09-11 09:29 | XMS_ITS | Encounter Summary ---
:1960 Author Organization [facility] Address [address] [place] [address] Care Team Providers Name Role Phone Unavailable Primary Care Provider Unavailable Encounter Details Date Type Department Care Team Description 02/18/2007 Hospital Encounter HX [facility] ORTHO Carrillo Persaud M.D. [address] [place], [place] [address] Social History Tobacco Use Types Packs/Day Years Used Date Smoking Tobacco: Never Assessed Sex Assigned at Date Recorded Female 07/10/2022 7:32 AM CDT documented as of this encounter Progress Notes Carrillo Persaud M.D. - 02/18/2007 3:15 PM CDT [id number] CLINIC ENCOUNTER Zandra was here to review [...] here. Return to clinic as needed. Milly Sen/[facility] cc: Source: [facility] Document Id: [id number] documented in this encounter Plan of Treatment Upcoming Encounters Date Type Specialty Care Team Description 10/10/2022 Office Visit Neurology Karin Ramachandran M.D., M.P.H. [address] [phone] (Wo rk) documented as of this encounter Visit Diagnoses Not on filedocumented in this encounter
--- OUTSIDE RECORDS SUMMARY | 2022-09-11 09:29 | XMS_ITS | Encounter Summary ---
:1960 Author Organization [facility] Address [address] [place] [address] Care Team Providers Name Role Phone Unavailable [...] Visit Neurology Karin Ramachandran M.D., M.P.H. [address] [place], [place] [phone] (Wo rk) documented as of this encounter Visit Diagnoses Not on filedocumented in this encounter
--- OUTSIDE RECORDS SUMMARY | 2022-09-11 09:29 | XMS_ITS | Encounter Summary ---
:1960 Author Organization [facility] Address [address] [place] [address] Care Team Providers Name Role Phone Unavailable Primary Care Provider Unavailable Encounter Details Date Type Department Care Team Description 03/05/2007 Hospital Encounter HX NO MAPPING Jarrod Persaud M.D. [address] [place], [place] [address] Social History Tobacco Use Types Packs/Day Years Used Date Smoking Tobacco: Never Assessed Sex Assigned at Date Recorded Female 07/10/2022 7:32 AM CDT documented as of this encounter Plan of Treatment Upcoming Encounters Date Type Specialty Care Team Description 10/10/2022 Office Visit Neurology Karin Ramachandran M.D., M.P.H. [address], [place] [phone] (Wo rk) documented as of this encounter Visit Diagnoses Not on filedocumented in this encounter
--- OUTSIDE RECORDS SUMMARY | 2022-09-11 09:29 | XMS_ITS | Encounter Summary ---
:1960 Author Organization [facility] Address [address] [place] [address] Care Team Providers Name Role Phone Unavailable Primary Care Provider Unavailable Encounter Details Date Type Department Care Team Description 03/19/2007 Hospital Encounter [facility]X [facility] OR[facility]O Juan Antonio Walters P.A.-C. Social History Tobacco Use Types Packs/Day Years Used Date Smoking Tobacco: Never Assessed Sex Assigned at Date Recorded Female 07/10/2022 7:32 AM CDT documented as of this encounter Progress Notes Juan Antonio Walters - 03/19/2007 1:00 PM CDT [id number] CLINIC ENCOUNTER SUBJECTIVE: Ms. Lopez is a [...] are progressing satisfactorily. ZA Parmar/ cc: Source: [facility] RWHXTRANSXSYS Document Id: [id number] documented in this encounter Plan of Treatment Upcoming Encounters Date Type Specialty Care Team Description 10/10/2022 Office Visit Neurology Karin Ramachandran M.D., M.P.H. [address] [phone] (Wo rk) documented as of this encounter Visit Diagnoses Not on filedocumented in this encounter
--- OUTSIDE RECORDS SUMMARY | 2022-09-11 09:30 | XMS_ITS | Encounter Summary ---
:1960 Author Organization [facility] Address [address] [place] [address] Care Team Providers Name Role Phone Unavailable Primary Care Provider Unavailable Encounter Details Date Type Department Care Team Description 01/25/2006 Hospital Encounter HX NO MAPPING Shannon Barrett M.D. [address] [place] [phone] (Wo rk) Social History Tobacco Use Types Packs/Day Years Used Date Smoking Tobacco: Never Assessed Sex Assigned at Date Recorded Female 07/10/2022 7:32 AM CDT documented as of this encounter Plan of Treatment Upcoming Encounters Date Type Specialty Care Team Description 10/10/2022 Office Visit Neurology Karin Ramachandran M.D., M.P.H. [address] [place], [place] [phone] (Wo rk) documented as of this encounter Visit Diagnoses Not on filedocumented in this encounter
--- OUTSIDE RECORDS SUMMARY | 2022-09-11 09:30 | XMS_ITS | Encounter Summary ---
:1960 Author Organization [facility] Address [address] [place] [address] Care Team Providers Name Role Phone Unavailable Primary Care Provider Unavailable Encounter Details Date Type Department Care Team Description 05/31/2003 Hospital Encounter HX [facility] Elvie Mac M.D. [address] [facility] [place] [address] (Wo rk) Social History Tobacco Use Types Packs/Day Years Used Date Smoking Tobacco: Never Assessed Sex Assigned at Date Recorded Female 07/10/2022 7:32 AM CDT documented as of this encounter Progress Notes Conversion, Historical Provider Ser - 05/31/2003 11:45 AM CDT [id number] Addended by: ODALIS GARCIA on: 06/07/2003,11:01 AM [...] was unremarkable. The MR Angiogram of the [place] of [place] revealed no aneurysms. There were [...] for review.CC: Dr. Persaud for review. Source: [facility] RWHXTRANSXSYS Document Id: [id number] documented in this encounter Plan of Treatment Upcoming Encounters Date Type Specialty Care Team Description 10/10/2022 Office Visit Neurology Karin Ramachandran M.D., M.P.H. [address] [phone] (Wo rk) documented as of this encounter Visit Diagnoses Not on filedocumented in this encounter
--- OUTSIDE RECORDS SUMMARY | 2022-09-11 09:30 | XMS_ITS | Encounter Summary ---
:1960 Author Organization [facility] Address [address] [place] [address] Care Team Providers Name Role Phone Unavailable Primary Care Provider Unavailable Encounter Details Date Type Department Care Team Description 04/06/2003 Hospital [facility] Carrillo Charles M.D. [address] [place], [place] [address] Social History Tobacco Use Types Packs/Day Years Used Date Smoking Tobacco: Never Assessed Sex Assigned at Date Recorded Female 07/10/2022 7:32 AM CDT documented as of this encounter Progress Notes Conversion, Historical Provider Ser - 04/06/2003 12:00 AM CDT [id number] A user error has taken place: encounter opened in error, closed for administrative reasons. Source: [facility] Document Id: [id number] documented in this encounter Plan of Treatment Upcoming Encounters Date Type Specialty Care Team Description 10/10/2022 Office Visit Neurology Karin Ramachandran M.D., M.P.H. [address] [place], [place] [phone] (Wo rk) documented as of this encounter Visit Diagnoses Not on filedocumented in this encounter
--- OUTSIDE RECORDS SUMMARY | 2022-09-11 09:30 | XMS_ITS | Encounter Summary ---
:1960 Author Organization [facility] Address [address] [place] [address] Care Team Providers Name Role Phone Unavailable Primary Care Provider Unavailable Encounter Details Date Type Department Care Team Description 03/27/2006 Hospital Encounter HX [facility] Shannon Buitrago M.D. [address] [facility] [place] [address] (Wo rk) Social History Tobacco Use Types Packs/Day Years Used Date Smoking Tobacco: Never Assessed Sex Assigned at Date Recorded Female 07/10/2022 7:32 AM CDT documented as of this encounter Miscellaneous Notes Telephone Encounter - Conversion, Historical Provider Ser - 03/27/2006 12:00 AM CDT [id number] patient called wondering about getting her period. Hasn't had one for over two years and labs state shes in menopause. Got period. Was wondering if this was normal. Gave her the number for red andasked her to call and talk to whizzer operator. Source: [facility] Document Id: [id number] documented in this encounter Plan of Treatment Upcoming Encounters Date Type Specialty Care Team Description 10/10/2022 Office Visit Neurology Karin Ramachandran M.D., M.P.H. [address] [place], [place] [phone] (Wo rk) documented as of this encounter Visit Diagnoses Not on filedocumented in this encounter
--- OUTSIDE RECORDS SUMMARY | 2022-09-11 09:30 | XMS_ITS | Encounter Summary ---
:1960 Author Organization [facility] Address [address] [place] [address] Care Team Providers Name Role Phone Unavailable Primary Care Provider Unavailable Encounter Details Date Type Department Care Team Description 01/03/2007 Hospital Encounter HX NO MAPPING Shannon Barrett M.D. [address] [place] [phone] (Wo rk) Social History Tobacco Use Types Packs/Day Years Used Date Smoking Tobacco: Never Assessed Sex Assigned at Date Recorded Female 07/10/2022 7:32 AM CDT documented as of this encounter Plan of Treatment Upcoming Encounters Date Type Specialty Care Team Description 10/10/2022 Office Visit Neurology Karin Ramachandran M.D., M.P.H. [address] [place], [place] [phone] (Wo rk) documented as of this encounter Visit Diagnoses Not on filedocumented in this encounter
--- OUTSIDE RECORDS SUMMARY | 2022-09-11 09:30 | XMS_ITS | Encounter Summary ---
:1960 Author Organization [facility] Address [address] [place] [address] Care Team Providers Name Role Phone Unavailable Primary Care Provider Unavailable Encounter Details Date Type Department Care Team Description 08/10/2005 Hospital Encounter HX [facility] Shannon Buitrago M.D. [address] [place] [address] (Wo dianne) Social History Tobacco Use Types Packs/Day Years Used Date Smoking Tobacco: Never Assessed Sex Assigned at Date Recorded Female 07/10/2022 7:32 AM CDT documented as of this encounter Miscellaneous Notes Telephone Encounter - Conversion, Historical Provider Ser - 08/10/2005 12:00 AM CDT [id number] Diabetes Labs: No results found for this basename: A1C:1 LDL 96 11/16/2002 TSH 1.11 11/07/2004 patient called was out of meds was to be refilled with her bp meds and was missed called in one month to [facility] patient was told last tsh was 2003 and she was coming due for one would let her know on refills Thanks Source: [facility] Document Id: [id number] documented in this encounter Plan of Treatment Upcoming Encounters Date Type Specialty Care Team Description 10/10/2022 Office Visit Neurology Karin Ramachandran M.D., M.P.H. [address] [place], [place] [phone] (Wo rk) documented as of this encounter Visit Diagnoses Not on filedocumented in this encounter
--- OUTSIDE RECORDS SUMMARY | 2022-09-11 09:30 | XMS_ITS | Encounter Summary ---
:1960 Author Organization [facility] Address [address] [place] [address] Care Team Providers Name Role Phone Unavailable Primary Care Provider Unavailable Encounter Details Date Type Department Care Team Description 12/23/2006 Hospital Encounter HX [facility] Shannon Buitrago M.D. [address] [place] [address] (Wo rk) Social History Tobacco Use Types Packs/Day Years Used Date Smoking Tobacco: Never Assessed Sex Assigned at Date Recorded Female 07/10/2022 7:32 AM CDT documented as of this encounter Miscellaneous Notes Telephone Encounter - Conversion, Historical Provider Ser - 12/23/2006 12:00 AM CST [id number] Chould you do this in pcp's absence Source: [facility] Document Id: [id number] Telephone Encounter - Conversion, Historical Provider Ser - 12/23/2006 12:00 AM CST [id number] Accepting this rx will be faxed directly [...] LDL 96 11/16/2002 HDL 87 11/16/2002 Source: [facility] Document Id: [id number] documented in this encounter Plan of Treatment Upcoming Encounters Date Type Specialty Care Team Description 10/10/2022 Office Visit Neurology Karin Ramachandran M.D., M.P.H. [address] [phone] (Wo rk) documented as of this encounter Visit Diagnoses Not on filedocumented in this encounter
--- OUTSIDE RECORDS SUMMARY | 2022-09-11 09:30 | XMS_ITS | Encounter Summary ---
:1960 Author Organization [facility] Address [address] [place] [address] Care Team Providers Name Role Phone Unavailable Primary Care Provider Unavailable Encounter Details Date Type Department Care Team Description 01/25/2006 Hospital Encounter HX [facility] XRAY Provider, Histori darlin Social History Tobacco Use Types Packs/Day Years Used Date Smoking Tobacco: Never Assessed Sex Assigned at Date Recorded Female 07/10/2022 7:32 AM CDT documented as of this encounter Miscellaneous Notes Miscellaneous - Shannon Barrett M.D. - 01/25/2006 9:45 AM CST [id number] Zandra Lopez [id number] [phone] February 04, 2006 Dear Zandra Lopez, IMAGING RESULTS: The results of your recent bone density/DEXA Scan were ABNORMAL -indicating thinning of the bones.I recommend that you consider Medications to prevent further loss of bone. If you have any further questions or problems, please contact our office. Sincerely, Shannon Barrett M.D. INTERNAL MEDICINE Source: [facility] Document Id: [id number] Electronically signed by Conversion, [facility] Baggage Inspector [id number] at 04/29/2017 6:39 PM CDT documented in this encounter Plan of Treatment Upcoming Encounters Date Type Specialty Care Team Description 10/10/2022 Office Visit Neurology Karin Ramachandran M.D., M.P.H. [address], [place] [phone] (Wo rk) documented as of this encounter Visit Diagnoses Not on filedocumented in this encounter
--- OUTSIDE RECORDS SUMMARY | 2022-09-11 09:30 | XMS_ITS | Encounter Summary ---
:1960 Author Organization [facility] Address [address] [place] [address] Care Team Providers Name Role Phone Unavailable Primary Care Provider Unavailable Encounter Details Date Type Department Care Team Description 01/03/[address] [facility] XRAY Provider, Histori darlin Social History Tobacco Use Types Packs/Day Years Used Date Smoking Tobacco: Never Assessed Sex Assigned at Date Recorded Female 07/10/2022 7:32 AM CDT documented as of this encounter Plan of Treatment Upcoming Encounters Date Type Specialty Care Team Description 10/10/2022 Office Visit Neurology Karin Ramachandran M.D., M.P.H. [address] [place], [place] [phone] (Wo rk) documented as of this encounter Visit Diagnoses Not on filedocumented in this encounter
--- OUTSIDE RECORDS SUMMARY | 2022-09-11 09:30 | XMS_ITS | Encounter Summary ---
:1960 Author Organization [facility] Address [address] [place] [address] Care Team Providers Name Role Phone Unavailable Primary Care Provider Unavailable Encounter Details Date Type Department Care Team Description 04/09/2006 Hospital Encounter HX [facility] Shannon Buitrago M.D. [address] [place] [address] (Wo rk) Social History Tobacco Use Types Packs/Day Years Used Date Smoking Tobacco: Never Assessed Sex Assigned at Date Recorded Female 07/10/2022 7:32 AM CDT documented as of this encounter Miscellaneous Notes Telephone Encounter - Joseph Kendrick, L.P.N. - 04/09/2006 12:00 AM CDT [id number] Pt. Calling and wanting rx for the new quit smoking drug she does not know the name, but would like it faxed to [facility] in [place], if any questions plz call [phone] Source: [facility]FPORTHXTRANSXRTFSYS Document Id: [id number] Electronically signed by Gabriela [facility] Junior Data Analyst [id number] at 04/29/2017 3:12 PM CDT documented in this encounter Plan of Treatment Upcoming Encounters Date Type Specialty Care Team Description 10/10/2022 Office Visit Neurology Karin Ramachandran M.D., M.P.H. [address] [place], [place] [phone] (Wo rk) documented as of this encounter Visit Diagnoses Not on filedocumented in this encounter
--- OUTSIDE RECORDS SUMMARY | 2022-09-11 09:30 | XMS_ITS | Encounter Summary ---
:1960 Author Organization [facility] Address [address] [place] [address] Care Team Providers Name Role Phone Unavailable Primary Care Provider Unavailable Encounter Details Date Type Department Care Team Description 05/21/2003 Hospital Encounter [facility] Provider, Chapito galloway Social History Tobacco Use Types Packs/Day Years Used Date Smoking Tobacco: Never Assessed Sex Assigned at Date Recorded Female 07/10/2022 7:32 AM CDT documented as of this encounter Miscellaneous Notes Telephone Encounter - Conversion, Historical Provider Ser - 05/21/2003 12:00 AM CDT [id number] >> ADRIANE DELGADO Fri May 21, 2003 10:22 AM >> CALL RECEIVED. Contact: She called, saw the neurologist at [facility] yesterday, who felt that the scalp laceration is infected. Source: [facility] Document Id: [id number] documented in this encounter Plan of Treatment Upcoming Encounters Date Type Specialty Care Team Description 10/10/2022 Office Visit Neurology Karin Ramachandran M.D., M.P.H. [address] [place], [place] [phone] (Wo rk) documented as of this encounter Visit Diagnoses Not on filedocumented in this encounter
--- OUTSIDE RECORDS SUMMARY | 2022-09-11 09:30 | XMS_ITS | Encounter Summary ---
:1960 Author Organization [facility] Address [address] [place] [address] Care Team Providers Name Role Phone Unavailable [...] Visit Neurology Karin Ramachandran M.D., M.P.H. [address] [place], [place] [phone] (Wo rk) documented as of this encounter Visit Diagnoses Not on filedocumented in this encounter
--- OUTSIDE RECORDS SUMMARY | 2022-09-11 09:30 | XMS_ITS | Encounter Summary ---
:1960 Author Organization [facility] Address [address] [place] [address] Care Team Providers Name Role Phone Unavailable Primary Care Provider Unavailable Encounter Details Date Type Department Care Team Description 01/16/2007 Hospital Encounter [facility] Shannon Barrett M.D. [address] [place] [address] (Wo rk) Social History Tobacco Use Types Packs/Day Years Used Date Smoking Tobacco: Never Assessed Sex Assigned at Date Recorded Female 07/10/2022 7:32 AM CDT documented as of this encounter Progress Notes Shannon Barrett M.D. 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 Psych: Patient appears stated age. Is [...] by herself. Patient expresses an understanding. Source: [facility] RWHXTRANSXRTFSYS Document Id: [id number] Electronically signed by Gabriela [facility] Stock Wetter [id number] at 04/29/2017 10:52 AM CDT documented in this encounter Plan of Treatment Upcoming Encounters Date Type Specialty Care Team Description 10/10/2022 Office Visit Neurology Karin Ramachandran M.D., M.P.H. [address] [place] [phone] (Wo rk) documented as of this encounter Visit Diagnoses Not on filedocumented in this encounter
--- OUTSIDE RECORDS SUMMARY | 2022-09-11 09:30 | XMS_ITS | Encounter Summary ---
:1960 Author Organization [facility] Address [address] [place] [address] Care Team Providers Name Role Phone Unavailable Primary Care Provider Unavailable Encounter Details Date Type Department Care Team Description 02/04/2007 Hospital Encounter HX [facility] Carrillo Persaud M.D. [address] [place], [place] [address] Social History Tobacco Use Types Packs/Day Years Used Date Smoking Tobacco: Never Assessed Sex Assigned at Date Recorded Female 07/10/2022 7:32 AM CDT documented as of this encounter Progress Notes Carrillo Persaud M.D. - 02/04/2007 2:00 PM CDT [id number] CLINIC ENCOUNTER SUBJECTIVE: Zandra took a hard [...] intervention. Carrillo Persaud M.D. Ursula cc: Source[facility] Document Id: [id number] Electronically signed by Gabriela [facility] Client Support Manager [id number] at 04/29/2017 1:21 PM CDT documented in this encounter Plan of Treatment Upcoming Encounters Date Type Specialty Care Team Description 10/10/2022 Office Visit Neurology Karin Ramachandran M.D., M.P.H. [address] [phone] (Wo rk) documented as of this encounter Visit Diagnoses Not on filedocumented in this encounter
--- OUTSIDE RECORDS SUMMARY | 2022-09-11 09:30 | XMS_ITS | Encounter Summary ---
:1960 Author Organization [facility] Address [address] [place] [address] Care Team Providers Name Role Phone Unavailable [...] Provider Ser - 11/06/2006 1:30 PM CST [id number] HISTORY & PHYSICAL CC: Chief Complaint Patient [...] if any concerns. Case Hauser M.D. Source: [facility] RWHXTRANSXRTFSYS Document Id: [id number] documented in this encounter Plan of Treatment Upcoming Encounters Date Type Specialty Care Team Description 10/10/2022 Office Visit Neurology Karin Ramachandran M.D., M.P.H. [address] [place], [place] [phone] (Wo rk) documented as of this encounter Visit Diagnoses Not on filedocumented in this encounter
--- OUTSIDE RECORDS SUMMARY | 2022-09-11 09:30 | XMS_ITS | Encounter Summary ---
:1960 Author Organization [facility] Address [address] [place] [address] Care Team Providers Name Role Phone Unavailable Primary Care Provider Unavailable Encounter Details Date Type Department Care Team Description 05/27/2003 Hospital Encounter HX [facility]ILY[facility] Stephanie Scott Jr., D.O. 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 She was [...] Benji Scott Jr., D.O./Debi: 05/27/2003T: 05/31/2003 Source: [facility] Document Id: [id number] documented in this encounter Plan of Treatment Upcoming Encounters Date Type Specialty Care Team Description 10/10/2022 Office Visit Neurology Karin Ramachandran M.D., M.P.H. [address] [place] [phone] (Wo rk) documented as of this encounter Visit Diagnoses Not on filedocumented in this encounter
--- OUTSIDE RECORDS SUMMARY | 2022-09-11 09:30 | XMS_ITS | Encounter Summary ---
:1960 Author Organization [facility] Address [address] [place] [address] Care Team Providers Name Role Phone Unavailable Primary Care Provider Unavailable Encounter Details Date Type Department Care Team Description 01/18/2006 Hospital Encounter HX [facility] RWZU INTERNMED Shannon Barrett M.D. [address] [place] [address] (Wo rk) Social History Tobacco Use Types Packs/Day Years Used Date Smoking Tobacco: Never Assessed Sex Assigned at Date Recorded Female 07/10/2022 7:32 AM CDT documented as of this encounter Progress Notes Shannon Barrett M.D. 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 Patient expresses understanding. Source: [facility] RWMCHXTRANSXRTFSYS Document Id: [id number] Electronically signed by Gabriela [facility] Battalion Fire Chief [id number] at 04/29/2017 2:33 PM CDT documented in this encounter Plan of Treatment Upcoming Encounters Date Type Specialty Care Team Description 10/10/2022 Office Visit Neurology Karin Ramachandran M.D., M.P.H. [address] [phone] (Wo rk) documented as of this encounter Visit Diagnoses Not on filedocumented in this encounter
--- OUTSIDE RECORDS SUMMARY | 2022-09-11 09:30 | XMS_ITS | Encounter Summary ---
:1960 Author Organization [facility] Address [address] [place] [address] Care Team Providers Name Role Phone Unavailable Primary Care Provider Unavailable Encounter Details Date Type Department Care Team Description 11/26/2005 Hospital Encounter HX [facility] Provider, Historic al Social History Tobacco Use Types Packs/Day Years Used Date Smoking Tobacco: Never Assessed Sex Assigned at Date Recorded Female 07/10/2022 7:32 AM CDT documented as of this encounter Miscellaneous Notes Miscellaneous - Shannon Vergara M.D. - 11/26/2005 10:00 AM CST [id number] Addended by: SHANNON VERGARA on: 11/26/2005 4:09:09 PM Modules accepted: Orders Source: [facility] RWHXTRANSXSYS Document Id: [id number] Electronically signed by Gabriela [facility] Registered Medical Transcriptionist [id number] at 04/29/2017 6:18 PM CDT documented in this encounter Plan of Treatment Upcoming Encounters Date Type Specialty Care Team Description 10/10/2022 Office Visit Neurology Karin Ramachandran M.D., M.P.H. [address] [place], [place] [phone] (Wo rk) documented as of this encounter Visit Diagnoses Not on filedocumented in this encounter
--- OUTSIDE RECORDS SUMMARY | 2022-09-11 09:30 | XMS_ITS | Encounter Summary ---
:1960 Author Organization [facility] Address [address] [place] [address] Care Team Providers Name Role Phone Unavailable Primary Care Provider Unavailable Encounter Details Date Type Department Care Team Description 02/05/2006 Hospital Encounter HX [facility] RWZU INTERNMED Shannon Barrett M.D. [address] [place] [address] (Wo rk) Social History Tobacco Use Types Packs/Day Years Used Date Smoking Tobacco: Never Assessed Sex Assigned at Date Recorded Female 07/10/2022 7:32 AM CDT documented as of this encounter Progress Notes Shannon Barrett M.D. - 02/05/2006 11:30 AM CST [id number] SUBJECTIVE: Patient here for a physical. 1)Currently concerned about L hip pain x several months. Denies trauma to hip. Pain worse when getting up in the am--describes it as a stiffness. No numbness or tingling in leg. 2)C/O burning sensation in throatx 2months. Has used OTC Zantac 75 mg po daily with no relief [id number]. Burning not worse with eating, drinking or [...] hip. No H/O back pain or discomfort. MANAGER FORENSIC: No headaches. No dizziness, seizures, tremors, numbness, [...] external hemmorhoid between 3 and 6 oclock. MANAGER FORENSIC: Alert and oriented x3. Cranial nerves intact. [...] her labs to check her galactorrhea. Source: [facility] RWHXTRANSXRTFSYS Document Id: [id number] Electronically signed by Gabriela, [facility] Train Driver [id number] at 04/29/2017 6:39 PM CDT documented in this encounter Plan of Treatment Upcoming Encounters Date Type Specialty Care Team Description 10/10/2022 Office Visit Neurology Karin Ramachandran M.D., M.P.H. [address] [phone] (Wo rk) documented as of this encounter Visit Diagnoses Not on filedocumented in this encounter
--- OUTSIDE RECORDS SUMMARY | 2022-09-11 09:30 | XMS_ITS | Encounter Summary ---
:1960 Author Organization [facility] Address [address] [place] [address] Care Team Providers Name Role Phone Unavailable Primary Care Provider Unavailable Encounter Details Date Type Department Care Team Description 02/06/2004 Hospital Encounter HX [facility] Shannon Buitrago M.D. [address] [place] [address] (Wo rk) Social History Tobacco Use Types Packs/Day Years Used Date Smoking Tobacco: Never Assessed Sex Assigned at Date Recorded Female 07/10/2022 7:32 AM CDT documented as of this encounter Miscellaneous Notes Telephone Encounter - Conversion, Historical Provider Ser - 02/06/2004 12:00 AM CST [id number] >> SHANNON Willett Feb 06, 2004 2:58 PM >> CALL RECEIVED. Contact: Source: [facility] Document Id: [id number] documented in this encounter Plan of Treatment Upcoming Encounters Date Type Specialty Care Team Description 10/10/2022 Office Visit Neurology Karin Ramachandran M.D., M.P.H. [address] [place], [place] [phone] (Wo rk) documented as of this encounter Visit Diagnoses Not on filedocumented in this encounter
--- OUTSIDE RECORDS SUMMARY | 2022-09-11 09:30 | XMS_ITS | Encounter Summary ---
:1960 Author Organization [facility] Address [address] [place] [address] Care Team Providers Name Role Phone Unavailable Primary Care Provider Unavailable Encounter Details Date Type Department Care Team Description 02/04/2004 Hospital Encounter HX [facility] Shannon Buitrago M.D. [address] [place] [address] (Wo rk) Social History Tobacco Use Types Packs/Day Years Used Date Smoking Tobacco: Never Assessed Sex Assigned at Date Recorded Female 07/10/2022 7:32 AM CDT documented as of this encounter Progress Notes Conversion, Historical Provider Ser - 02/04/2004 1:30 PM CST [id number] Addended by: KELLY BUTLER on: 02/08/2004,6:55 AMModules [...] depression.* Shannon Barrett M.D./garcia*D: 4T: 02/08/2004 Source[facility] Document Id: [id number] documented in this encounter Plan of Treatment Upcoming Encounters Date Type Specialty Care Team Description 10/10/2022 Office Visit Neurology Karin Ramachandran M.D., M.P.H. [address] [phone] (Wo rk) documented as of this encounter Visit Diagnoses Not on filedocumented in this encounter
--- OUTSIDE RECORDS SUMMARY | 2022-09-11 09:30 | XMS_ITS | Encounter Summary ---
:1960 Author Organization [facility] Address [address] [place] [address] Care Team Providers Name Role Phone Unavailable Primary Care Provider Unavailable Encounter Details Date Type Department Care Team Description 09/07/2005 Hospital Encounter HX [facility] Shannon Buitrago M.D. [address] [place] [address] (Wo rk) Social History Tobacco Use Types Packs/Day Years Used Date Smoking Tobacco: Never Assessed Sex Assigned at Date Recorded Female 07/10/2022 7:32 AM CDT documented as of this encounter Miscellaneous Notes Miscellaneous - Conversion, Historical Provider Ser - 09/07/2005 12:00 AM CDT [id number] Zandra Lopez [address] [place] [address] MR# [id number] November 15, 2005 Dear Ms. Lopez, After [...] can be addressed. Our phone numbers are [phone] or . Sincerely, Kaelyn Nieto RN - Infantry Indirect Fire Crewmember [facility] Source[facility] Document Id: [id number] Telephone Encounter - Conversion, Historical Provider Ser - 09/07/2005 12:00 AM CDT [id number] patient needs refill on her thyroid meds please place order for tsh was drawn today Diabetes Labs: No results found for this basename: A1C:1 LDL 96 11/16/2002 TSH 1.11 11/07/2004 Source: [facility] Document Id: [id number] documented in this encounter Plan of Treatment Upcoming Encounters Date Type Specialty Care Team Description 10/10/2022 Office Visit Neurology Karin Ramachandran M.D., M.P.H. [address] [phone] (Wo rk) documented as of this encounter Visit Diagnoses Not on filedocumented in this encounter
--- OUTSIDE RECORDS SUMMARY | 2022-09-11 09:30 | XMS_ITS | Encounter Summary ---
:1960 Author Organization [facility] Address [address] [place] [address] Care Team Providers Name Role Phone Unavailable Primary Care Provider Unavailable Encounter Details Date Type Department Care Team Description 09/10/2006 Hospital Encounter HX [facility] Shannon Buitrago M.D. [address] [place] [address] (Wo rk) Social History Tobacco Use Types Packs/Day Years Used Date Smoking Tobacco: Never Assessed Sex Assigned at Date Recorded Female 07/10/2022 7:32 AM CDT documented as of this encounter Miscellaneous Notes Telephone Encounter - Conversion, Historical Provider Ser - 09/10/2006 12:00 AM CDT [id number] Last visit with pcp 01/28 Last 1 BP Readings: Date: BP: 02/05/2006 120/80 [facility] Document Id: [id number] documented in this encounter Plan of Treatment Upcoming Encounters Date Type Specialty Care Team Description 10/10/2022 Office Visit Neurology Karin Ramachandran M.D., M.P.H. [address] [place], [place] [phone] (Wo rk) documented as of this encounter Visit Diagnoses Not on filedocumented in this encounter
--- OUTSIDE RECORDS SUMMARY | 2022-09-11 09:30 | XMS_ITS | Encounter Summary ---
:1960 Author Organization [facility] Address [address] [place] [address] Care Team Providers Name Role Phone Unavailable Primary Care Provider Unavailable Encounter Details Date Type Department Care Team Description 03/13/2006 Hospital Encounter HX [facility] Shannon Buitrago M.D. [address] [place] [address] (Wo rk) Social History Tobacco Use Types Packs/Day Years Used Date Smoking Tobacco: Never Assessed Sex Assigned at Date Recorded Female 07/10/2022 7:32 AM CDT documented as of this encounter Miscellaneous Notes Telephone Encounter - Conversion, Historical Provider Ser - 03/13/2006 12:00 AM CDT [id number] Pt called, she was wondering if you could write letter explaining the bone density results. She was given results during her last appt but wasn't quite sure if she has osteoporsis or if she is taking medication to prevent it. Thanks Source: [facility] RWHXTRANSXRTFSYS Document Id: [id number] documented in this encounter Plan of Treatment Upcoming Encounters Date Type Specialty Care Team Description 10/10/2022 Office Visit Neurology Karin Ramachandran M.D., M.P.H. [address], [place] [phone] (Wo rk) documented as of this encounter Visit Diagnoses Not on filedocumented in this encounter
--- OUTSIDE RECORDS SUMMARY | 2022-09-11 09:30 | XMS_ITS | Encounter Summary ---
:1960 Author Organization [facility] Address [address] [place] [address] Care Team Providers Name Role Phone Unavailable Primary Care Provider Unavailable Encounter Details Date Type Department Care Team Description 05/21/2003 Hospital Encounter HX NO MAPPING Mike Franklin M.D. [address] [facility] [place] [address] (Wo rk) Social History Tobacco Use Types Packs/Day Years Used Date Smoking Tobacco: Never Assessed Sex Assigned at Date Recorded Female 07/10/2022 7:32 AM CDT documented as of this encounter Plan of Treatment Upcoming Encounters Date Type Specialty Care Team Description 10/10/2022 Office Visit Neurology Karin Ramachandran M.D., M.P.H. [address] [place], [place] [phone] (Wo rk) documented as of this encounter Visit Diagnoses Not on filedocumented in this encounter
--- OUTSIDE RECORDS SUMMARY | 2022-09-11 09:30 | XMS_ITS | Encounter Summary ---
:1960 Author Organization [facility] Address [address] [place] [address] Care Team Providers Name Role Phone Unavailable Primary Care Provider Unavailable Encounter Details Date Type Department Care Team Description 12/24/2003 Hospital Encounter [facility]X [facility] Provider, Chapito galloway Social History Tobacco Use Types Packs/Day Years Used Date Smoking Tobacco: Never Assessed Sex Assigned at Date Recorded Female 07/10/2022 7:32 AM CDT documented as of this encounter Miscellaneous Notes Miscellaneous - Conversion, Historical Provider Ser - 12/24/2003 12:00 AM SKILLED NURSING FACILITY COUNSELOR [id number] Zandra Lopez [address] [id number] December 24, 2003 Dear Zandra Lopez APPOINTMENT [...] future. You may call our office at [phone] or to schedule a visit. Please disregard this notice if you have already made an appointment. Sincerely, Sera Ríos [facility] Source: [facility] Document Id: [id number] Telephone Encounter - Conversion, Historical Provider Ser - 12/24/2003 12:00 AM CST [id number] >> SERA RÍOS SatDec 24, 2003 3:11 PM >> CALL RECEIVED. Contact: pharmacy faxed refill order to be filled This is one of jadiel's pt. will send her a letter to come in and see somebody. Thanks Source: [facility] RWHXTRANSXSYS Document Id: [id number] documented in this encounter Plan of Treatment Upcoming Encounters Date Type Specialty Care Team Description 10/10/2022 Office Visit Neurology Karin Ramachandran M.D., M.P.H. [address] [place] [phone] (Wo rk) documented as of this encounter Visit Diagnoses Not on filedocumented in this encounter
--- OUTSIDE RECORDS SUMMARY | 2022-09-11 09:30 | XMS_ITS | Encounter Summary ---
:1960 Author Organization [facility] Address [address] [place] [address] Care Team Providers Name Role Phone Unavailable [...] Visit Neurology Karin Ramachandran M.D., M.P.H. [address] [place], [place] [phone] (Wo rk) documented as of this encounter Visit Diagnoses Not on filedocumented in this encounter
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
--- OUTSIDE RECORDS SUMMARY | 2022-09-11 09:30 | XMS_ITS | Encounter Summary ---
:1960 Author Organization [facility] Address [address] [place] [address] Care Team Providers Name Role Phone Unavailable Primary Care Provider Unavailable Encounter Details Date Type Department Care Team Description 11/07/2004 Hospital Encounter HX [facility] Shannon Buitrago M.D. [address] [place] [address] (Wo rk) Social History Tobacco Use Types Packs/Day Years Used Date Smoking Tobacco: Never Assessed Sex Assigned at Date Recorded Female 07/10/2022 7:32 AM CDT documented as of this encounter Progress Notes Conversion, Historical Provider Ser - 11/07/2004 1:30 PM CST [id number] Addended by: EMILE FOWLER on: 11/10/2004,11:36 AM [...] the near future. Patient expresses understanding. [facility] Document Id: [id number] documented in this encounter Plan of Treatment Upcoming Encounters Date Type Specialty Care Team Description 10/10/2022 Office Visit Neurology Karin Ramachandran M.D., M.P.H. [address] [phone] (Wo rk) documented as of this encounter Visit Diagnoses Not on filedocumented in this encounter
--- OUTSIDE RECORDS SUMMARY | 2022-09-11 09:30 | XMS_ITS | Encounter Summary ---
:1960 Author Organization [facility] Address [address] [place] [address] Care Team Providers Name Role Phone Unavailable Primary Care Provider Unavailable Encounter Details Date Type Department Care Team Description 01/02/2007 Hospital Encounter HX [facility] RWZU INTERNMED Shannon Barrett M.D. [address] [place] [address] (Wo rk) Social History Tobacco Use Types Packs/Day Years Used Date Smoking Tobacco: Never Assessed Sex Assigned at Date Recorded Female 07/10/2022 7:32 AM CDT documented as of this encounter Progress Notes Shannon Barrett M.D. - 01/02/2007 3:30 PM CST [id number] Comment: Human Resources Trainer SUBJECTIVE: Zandra Lopez is a 46 year [...] anxiety disorder associated with sleep problems. Source: [facility] RWHXTRANSXRTFSYS Document Id: [id number] Electronically signed by Gabriela [facility] Human Resources Trainer [id number] at 04/29/2017 10:52 AM CDT documented in this encounter Plan of Treatment Upcoming Encounters Date Type Specialty Care Team Description 10/10/2022 Office Visit Neurology Karin Ramachandran M.D., M.P.H. [address] [phone] (Wo rk) documented as of this encounter Visit Diagnoses Not on filedocumented in this encounter
--- OUTSIDE RECORDS SUMMARY | 2022-09-11 09:30 | XMS_ITS | Encounter Summary ---
:1960 Author Organization [facility] Address [address] [place] [address] Care Team Providers Name Role Phone Unavailable Primary Care Provider Unavailable Encounter Details Date Type Department Care Team Description 05/05/2004 Hospital Encounter HX [facility] INTERNM[facility] Provider, Chapito galloway Social History Tobacco Use Types Packs/Day Years Used Date Smoking Tobacco: Never Assessed Sex Assigned at Date Recorded Female 07/10/2022 7:32 AM CDT documented as of this encounter Miscellaneous Notes Telephone Encounter - Conversion, Historical Provider Ser - 05/05/2004 12:00 AM CDT [id number] >> BARBARA Willett May 07, 2004 10:08 PM TSH 0.45 04/14/2004 >> ASPEN Benton May 05, 2004 1:08 PM >> CALL RECEIVED. Contact: Accepting this rx will be faxed directly to pharmacy. Thank You! Source: [facility] RWHXTRANSXSYS Document Id: [id number] documented in this encounter Plan of Treatment Upcoming Encounters Date Type Specialty Care Team Description 10/10/2022 Office Visit Neurology Karin Ramachandran M.D., M.P.H. [address] [place], [place] [phone] (Wo rk) documented as of this encounter Visit Diagnoses Not on filedocumented in this encounter
--- OUTSIDE RECORDS SUMMARY | 2022-09-11 09:30 | XMS_ITS | Encounter Summary ---
:1960 Author Organization [facility] Address [address] [place] [address] Care Team Providers Name Role Phone Unavailable Primary Care Provider Unavailable Encounter Details Date Type Department Care Team Description 05/20/2003 Hospital Encounter HX [facility] Elvie Mac M.D. [address] [facility] [place] [address] (Wo rk) Social History Tobacco Use Types Packs/Day Years Used Date Smoking Tobacco: Never Assessed Sex Assigned at Date Recorded Female 07/10/2022 7:32 AM CDT documented as of this encounter Progress Notes Conversion, Historical Provider Ser - 05/20/2003 9:00 AM CDT [id number] Addended by: ODALIS GARCIA on: 05/24/2003,12:37 PMModules [...] and symmetric. There are no Babinski signs. Zchgoz-tzfu-xryeda, heel-kne e-davila, rapid alternating motion rate, casual [...] neck and an MR Angiogram of the [place]. I will see the patient [...] review.CC: Christie White PA-C for review. Source: [facility] Document Id: [id number] documented in this encounter Plan of Treatment Upcoming Encounters Date Type Specialty Care Team Description 10/10/2022 Office Visit Neurology Karin Ramachandran M.D., M.P.H. [address] [phone] (Wo rk) documented as of this encounter Visit Diagnoses Not on filedocumented in this encounter
--- OUTSIDE RECORDS SUMMARY | 2022-09-11 09:30 | XMS_ITS | Encounter Summary ---
:1960 Author Organization [facility] Address [address] [place] [address] Care Team Providers Name Role Phone Unavailable Primary Care Provider Unavailable Encounter Details Date Type Department Care Team Description 08/06/2005 Hospital Encounter HX [facility] Shannon Buitrago M.D. [address] [place] [address] (Wo rk) Social History Tobacco Use Types Packs/Day Years Used Date Smoking Tobacco: Never Assessed Sex Assigned at Date Recorded Female 07/10/2022 7:32 AM CDT documented as of this encounter Miscellaneous Notes Telephone Encounter - Conversion, Historical Provider Ser - 08/06/2005 12:00 AM CDT [id number] last visit 11/07/04 Last 1 BP Readings: Date: BP: 11/07/2004 132/84 CAD/HTN and or CHF labs: CR 0.64 11/07/2004 POTASSIUM 4.4 11/07/2004 TSH 1.11 11/07/2004 [facility] Document Id: [id number] documented in this encounter Plan of Treatment Upcoming Encounters Date Type Specialty Care Team Description 10/10/2022 Office Visit Neurology Karin Ramachandran M.D., M.P.H. [address] [place], [place] [phone] (Wo rk) documented as of this encounter Visit Diagnoses Not on filedocumented in this encounter
--- OUTSIDE RECORDS SUMMARY | 2022-09-11 09:30 | XMS_ITS | Encounter Summary ---
:1960 Author Organization [facility] Address [address] [place] [address] Care Team Providers Name Role Phone Unavailable Primary Care Provider Unavailable Encounter Details Date Type Department Care Team Description 01/25/[address] [facility] Provider, Histori darlin Social History Tobacco Use Types Packs/Day Years Used Date Smoking Tobacco: Never Assessed Sex Assigned at Date Recorded Female 07/10/2022 7:32 AM CDT documented as of this encounter Plan of Treatment Upcoming Encounters Date Type Specialty Care Team Description 10/10/2022 Office Visit Neurology Karin Ramachandran M.D., M.P.H. [address] [place], [place] [phone] (Wo rk) documented as of this encounter Visit Diagnoses Not on filedocumented in this encounter
--- OUTSIDE RECORDS SUMMARY | 2022-09-11 09:30 | XMS_ITS | Encounter Summary ---
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 I will be leaving the [facility] December 17, 2003. The [facility] will continue to be staffed by Libra Starks DO and Shannon Barrett MD. In addition, we are fortunate to have JAGUAR Crowe on our staff. The [facility] continues to recruit another physician. Any questions you may have regarding refills, problems, etc., please call and speak to our well-trained nursing staff. It has been a pleasure being part of your health care. Sincerely, JAGUAR Gates Source: [facility] Document Id: [id number] documented in this encounter Plan of Treatment Upcoming Encounters Date Type Specialty Care Team Description 10/10/2022 Office Visit Neurology Karin Ramachandran M.D., M.P.H. [address] [place], [place] [phone] (Wo rk) documented as of this encounter Visit Diagnoses Not on filedocumented in this encounter
--- OUTSIDE RECORDS SUMMARY | 2022-09-11 09:31 | XMS_ITS | Encounter Summary ---
:1960 Author Organization [facility] Address [address] [place] [address] Care Team Providers Name Role Phone Unavailable Primary Care Provider Unavailable Encounter Details Date Type Department Care Team Description 02/19/2003 Hospital Encounter [facility] Shannon Buitrago M.D. [address] [place] [address] (Wo rk) Social History Tobacco Use Types Packs/Day Years Used Date Smoking Tobacco: Never Assessed Sex Assigned at Date Recorded Female 07/10/2022 7:32 AM CDT documented as of this encounter Progress Notes Conversion, Historical Provider Ser - 02/19/2003 10:30 AM CST [id number] Date of preoperative exam: 02/19/2003 Date of [...] Signature: Partha hi Milly Barrett [facility] Source: [facility] RWHXTRANSXSYS Document Id: [id number] documented in this encounter Plan of Treatment Upcoming Encounters Date Type Specialty Care Team Description 10/10/2022 Office Visit Neurology Karin Ramachandran M.D., M.P.H. [address] [phone] (Wo rk) documented as of this encounter Visit Diagnoses Not on filedocumented in this encounter
--- OUTSIDE RECORDS SUMMARY | 2022-09-11 09:31 | XMS_ITS | Encounter Summary ---
:1960 Author Organization [facility] Address [address] [place] [address] Care Team Providers Name Role Phone Unavailable Primary Care Provider Unavailable Encounter Details Date Type Department Care Team Description 11/30/2002 Hospital Encounter [facility] Provider, Chapito galloway Social History Tobacco Use Types Packs/Day Years Used Date Smoking Tobacco: Never Assessed Sex Assigned at Date Recorded Female 07/10/2022 7:32 AM CDT documented as of this encounter Miscellaneous Notes Telephone Encounter - Conversion, Historical Provider Ser - 11/30/2002 12:00 AM CST [id number] >> ADRIANE DELGADO Mon Nov 30, 2002 12:51 PM A user error has taken place: encounter opened in error, closed for administrative reasons. >> ADRIANE DELGADO SatNov 30, 2002 12:50 PM >> CALL RECEIVED. Contact: Source[facility] Document Id: [id number] documented in this encounter Plan of Treatment Upcoming Encounters Date Type Specialty Care Team Description 10/10/2022 Office Visit Neurology Karin Ramachandran M.D., M.P.H. [address], [place] [phone] (Wo rk) documented as of this encounter Visit Diagnoses Not on filedocumented in this encounter
--- OUTSIDE RECORDS SUMMARY | 2022-09-11 09:31 | XMS_ITS | Encounter Summary ---
:1960 Author Organization [facility] Address [address] [place] [address] Care Team Providers Name Role Phone Unavailable Primary Care Provider Unavailable Encounter Details Date Type Department Care Team Description 12/16/2002 Hospital Encounter HX NO MAPPING Jarrod Persaud M.D. [address] [place], [place] [address] Social History Tobacco Use Types Packs/Day Years Used Date Smoking Tobacco: Never Assessed Sex Assigned at Date Recorded Female 07/10/2022 7:32 AM CDT documented as of this encounter Plan of Treatment Upcoming Encounters Date Type Specialty Care Team Description 10/10/2022 Office Visit Neurology Karin Ramachandran M.D., M.P.H. [address], [place] [phone] (Wo rk) documented as of this encounter Visit Diagnoses Not on filedocumented in this encounter
--- OUTSIDE RECORDS SUMMARY | 2022-09-11 09:31 | XMS_ITS | Encounter Summary ---
:1960 Author Organization [facility] Address [address] [place] [address] Care Team Providers Name Role Phone Unavailable [...] Visit Neurology Karin Ramachandran M.D., M.P.H. [address] [place], [place] [phone] (Wo rk) documented as of this encounter Visit Diagnoses Not on filedocumented in this encounter
--- OUTSIDE RECORDS SUMMARY | 2022-09-11 09:31 | XMS_ITS | Encounter Summary ---
:1960 Author Organization [facility] Address [address] [place] [address] Care Team Providers Name Role Phone Unavailable Primary Care Provider Unavailable Encounter Details Date Type Department Care Team Description 02/17/2003 Hospital Encounter [facility] Carrillo Charles M.D. [address] [place], [place] [address] Social History Tobacco Use Types Packs/Day Years Used Date Smoking Tobacco: Never Assessed Sex Assigned at Date Recorded Female 07/10/2022 7:32 AM CDT documented as of this encounter Plan of Treatment Upcoming Encounters Date Type Specialty Care Team Description 10/10/2022 Office Visit Neurology Karin Ramachandran M.D., M.P.H. [address] [place], [place] [phone] (Wo rk) documented as of this encounter Visit Diagnoses Not on filedocumented in this encounter
--- OUTSIDE RECORDS SUMMARY | 2022-09-11 09:31 | XMS_ITS | Encounter Summary ---
:1960 Author Organization [facility] Address [address] [place] [address] Care Team Providers Name Role Phone Unavailable Primary Care Provider Unavailable Encounter Details Date Type Department Care Team Description 02/11/2003 Hospital Encounter [facility] Provider, Chapito galloway Social History Tobacco Use Types Packs/Day Years Used Date Smoking Tobacco: Never Assessed Sex Assigned at Date Recorded Female 07/10/2022 7:32 AM CDT documented as of this encounter Plan of Treatment Upcoming Encounters Date Type Specialty Care Team Description 10/10/2022 Office Visit Neurology Karin Ramachandran M.D., M.P.H. [address] [place], [place] [phone] (Wo rk) documented as of this encounter Visit Diagnoses Not on filedocumented in this encounter
--- OUTSIDE RECORDS SUMMARY | 2022-09-11 09:31 | XMS_ITS | Encounter Summary ---
:1960 Author Organization [facility] Address [address] [place] [address] Care Team Providers Name Role Phone Unavailable Primary Care Provider Unavailable Encounter Details Date Type Department Care Team Description 12/25/2002 Hospital Encounter HX [facility] UROLOGY Provider, Farideh adams Social History Tobacco Use Types Packs/Day Years Used Date Smoking Tobacco: Never Assessed Sex Assigned at Date Recorded Female 07/10/2022 7:32 AM CDT documented as of this encounter Miscellaneous Notes Telephone Encounter - Conversion, Historical Provider Ser - 12/25/2002 12:00 AM CST [id number] Addended by: PASCUAL DOWNEY on: 12/25/2002,3:09 PMModules accepted: Progress Notes>>PASCUAL SMITH Fri Dec 25, 2002 10:00 AM>> CALL RECEIVED. Contact: She was given a perscription for percocet #40, 1po q 3 hours, prn, by Dr. Persaud. [facility] Document Id: [id number] documented in this encounter Plan of Treatment Upcoming Encounters Date Type Specialty Care Team Description 10/10/2022 Office Visit Neurology Karin Ramachandran M.D., M.P.H. [address] [place], [place] [phone] (Wo rk) documented as of this encounter Visit Diagnoses Not on filedocumented in this encounter
--- OUTSIDE RECORDS SUMMARY | 2022-09-11 09:31 | XMS_ITS | Encounter Summary ---
:1960 Author Organization [facility] Address [address] [place] [address] Care Team Providers Name Role Phone Unavailable Primary Care Provider Unavailable Encounter Details Date Type Department Care Team Description 12/22/2002 Hospital Encounter HX [facility] Mike Herrera L, R.NEvans [address] [place], [place] [address] (Howie dean) Social History Tobacco Use Types Packs/Day Years Used Date Smoking Tobacco: Never Assessed Sex Assigned at Date Recorded Female 07/10/2022 7:32 AM CDT documented as of this encounter Miscellaneous Notes Telephone Encounter - Conversion, Historical Provider Ser - 12/22/2002 12:00 AM CST [id number] >> JASMIN Mckenna Dec 22, 2002 4:20 PM I called, and will send to P.T. RR >> GHAZALA Mckenna Dec 22, 2002 2:53 PM phone number [phone] >> GHAZALA Mckenna Dec 22, 2002 2:28 PM >> CALL RECEIVED. Contact: pt/ leo pt would like you to call her with mri results. [phone] Source: [facility] Document Id: [id number] documented in this encounter Plan of Treatment Upcoming Encounters Date Type Specialty Care Team Description 10/10/2022 Office Visit Neurology Karin Ramachandran M.D., M.P.H. [address] [place], [place] [phone] (Wo rk) documented as of this encounter Visit Diagnoses Not on filedocumented in this encounter
--- OUTSIDE RECORDS SUMMARY | 2022-09-11 09:31 | XMS_ITS | Encounter Summary ---
:1960 Author Organization [facility] Address [address] [place] [address] Care Team Providers Name Role Phone Unavailable Primary Care Provider Unavailable Encounter Details Date Type Department Care Team Description 12/23/2002 [facility] Mike Herrera L, R.N. [address] [facility] [place] [address] (Wo rk) Social History Tobacco Use Types Packs/Day Years Used Date Smoking Tobacco: Never Assessed Sex Assigned at Date Recorded Female 07/10/2022 7:32 AM CDT documented as of this encounter Miscellaneous Notes Telephone Encounter - Conversion, Historical Provider Ser - 12/23/2002 12:00 AM CST [id number] >> JASMIN TAFOYA [facility] Dec 24, 2002 9:58 AM I called her, and she may stop here tomorrow after her P.T. appt. RR >> CRUZ DICKERSON [facility] Dec 24, 2002 9:48 AM I did speak to Zandra, she is at [phone]/and would appreciate you calling her back this morning sometime. >> JASMIN TAFOYA [facility] Dec 24, 2002 8:33 AM I called, [...] restrict motion. would like you to call [phone]. pharmacy is [facility] in [place]. >> GHAZALA HOOD SatDec 23, 2002 2:47 PM >> CALL RECEIVED. Contact: pt/ leo pt has questions about pain meds. [phone] Source: [facility] RWHXTRANSXSYS Document Id: [id number] documented in this encounter Plan of Treatment Upcoming Encounters Date Type Specialty Care Team Description 10/10/2022 Office Visit Neurology Karin Ramachandran M.D., M.P.H. [address] [phone] (Wo rk) documented as of this encounter Visit Diagnoses Not on filedocumented in this encounter
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
--- OUTSIDE RECORDS SUMMARY | 2022-09-11 09:31 | XMS_ITS | Encounter Summary ---
:[address] [facility] Address [address] [place] [address] Care Team Providers Name Role Phone Unavailable Primary Care Provider Unavailable Encounter Details Date Type Department Care Team Description 01/19/2003 Hospital Encounter [facility] Carrillo Charles M.D. 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 I don't think that either condition is necessarily severe enough to recommend surgery so I've recom mended that she continue at this time with conservative care. She's got a home traction unit from [facility] and is doing appropriate cervical exercises [...] progress. Carrillo Persaud M.D./Rain: 01/19/2003T: 01/22/2003 Source: [facility] RWHXTRANSXSYS Document Id: [id number] documented in this encounter Plan of Treatment Upcoming Encounters Date Type Specialty Care Team Description 10/10/2022 Office Visit Neurology Karin Ramachandran M.D., M.P.H. [address] [phone] (Wo rk) documented as of this encounter Visit Diagnoses Not on filedocumented in this encounter
--- OUTSIDE RECORDS SUMMARY | 2022-09-11 09:31 | XMS_ITS | Encounter Summary ---
:1960 Author Organization [facility] Address [address] [place] [address] Care Team Providers Name Role Phone Unavailable Primary Care Provider Unavailable Encounter Details Date Type Department Care Team Description 01/01/2003 Hospital Encounter [facility]X [facility] Provider, Chapito galloway Social History Tobacco Use Types Packs/Day Years Used Date Smoking Tobacco: Never Assessed Sex Assigned at Date Recorded Female 07/10/2022 7:32 AM CDT documented as of this encounter Miscellaneous Notes Telephone Encounter - Conversion, Historical Provider Ser - 01/01/2003 12:00 AM CST [id number] >> ADRIANE Benton Jan 01, 2003 1:17 PM >> CALL RECEIVED. Contact: I called Christiane, [phone], left message that I had talked to Dr. Owen, re options for BC. Dr. Owen listed: micronor, tubal, IUD, (has 2 kinds of IUD available) and diaphragm. I asked that she call m e back on 01/04 Source: [facility] UNITHXTRANSXSYS Document Id: [id number] documented in this encounter Plan of Treatment Upcoming Encounters Date Type Specialty Care Team Description 10/10/2022 Office Visit Neurology Karin Ramachandran M.D., M.P.H. [address] [place], [place] [phone] (Wo rk) documented as of this encounter Visit Diagnoses Not on filedocumented in this encounter
--- OUTSIDE RECORDS SUMMARY | 2022-09-11 09:31 | XMS_ITS | Encounter Summary ---
:1960 Author Organization [facility] Address [address] [place] [address] Care Team Providers Name Role Phone Unavailable Primary Care Provider Unavailable Encounter Details Date Type Department Care Team Description 02/09/2003 Hospital Encounter HX [facility] Carrillo Charles M.D. [address] [place], [place] [address] Social History Tobacco Use Types Packs/Day Years Used Date Smoking Tobacco: Never Assessed Sex Assigned at Date Recorded Female 07/10/2022 7:32 AM CDT documented as of this encounter Progress Notes Conversion, Historical Provider Ser - 02/09/2003 9:00 AM CST [id number] Addended by: ODALIS GARCIA on: 02/12/2003,3:59 PM [...] as indicated.Carrillo Persaud M.D./Rodrigo: 02/09/2003T: 02/12/2003 Source: [facility] RWMCHXTRANSXSYS Document Id: [id number] documented in this encounter Plan of Treatment Upcoming Encounters Date Type Specialty Care Team Description 10/10/2022 Office Visit Neurology Karin Ramachandran M.D., M.P.H. [address] [phone] (Wo rk) documented as of this encounter Visit Diagnoses Not on filedocumented in this encounter
--- OUTSIDE RECORDS SUMMARY | 2022-09-11 09:31 | XMS_ITS | Encounter Summary ---
:1960 Author Organization [facility] Address [address] [place] [address] Care Team Providers Name Role Phone Unavailable Primary Care Provider Unavailable Encounter Details Date Type Department Care Team Description 12/15/2002 Hospital Encounter [facility]X [facility] Carrillo Charles M.D. [address] [place], [place] [address] Social History Tobacco Use Types Packs/Day Years Used Date Smoking Tobacco: Never Assessed Sex Assigned at Date Recorded Female 07/10/2022 7:32 AM CDT documented as of this encounter Progress Notes Conversion, Historical Provider Ser - 12/15/2002 9:45 AM CST [id number] Addended by: IZZY DRAKE on: 12/21/2002,7:26 AM Comment: transcriptionModules accepted: Everardo rodriguez NotesAddended by: CARRILLO TAFOYA on: 12/15/2002,11:48 AMModules accepted: Order SummaryBa lesly Dixon is a 42-y/o lady who presents with a one or two week history of pain in the l eft arm. This pain began a couple of weeks ago and intensified when she was recently in the [facility] and doing some head stands. She has complaints of pain that radiate from her neck and shoulder reg ion down into the axilla and in her arm and all the way down into her left hand with a numb and tingl ing feeling in the middle and ring fingers of that hand. 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 Carrillo Tafoya MD/mpD: 12/15/02T: 12/17/02 Source: [facility] RWHXTRANSXSYS Document Id: [id number] documented in this encounter Plan of Treatment Upcoming Encounters Date Type Specialty Care Team Description 10/10/2022 Office Visit Neurology Karin Ramachandran M.D., M.P.H. [address] [place] [phone] (Wo rk) documented as of this encounter Visit Diagnoses Not on filedocumented in this encounter
--- OUTSIDE RECORDS SUMMARY | 2022-09-11 09:31 | XMS_ITS | Encounter Summary ---
:1960 Author Organization [facility] Address [address] [place] [address] Care Team Providers Name Role Phone Unavailable Primary Care Provider Unavailable Encounter Details Date Type Department Care Team Description 02/09/2003 Hospital Encounter HX [facility] Provider, Nd laverne Social History Tobacco Use Types Packs/Day Years Used Date Smoking Tobacco: Never Assessed Sex Assigned at Date Recorded Female 07/10/2022 7:32 AM CDT documented as of this encounter Progress Notes Conversion, Historical Provider Ser - 02/09/2003 8:00 AM CST [id number] Here for 3 reasons: 1) L. wrist. [...] later this AM for her wrist. Source: [facility] Document Id: [id number] documented in this encounter Plan of Treatment Upcoming Encounters Date Type Specialty Care Team Description 10/10/2022 Office Visit Neurology Karin Ramachandran M.D., M.P.H. [address] [phone] (Wo rk) documented as of this encounter Visit Diagnoses Not on filedocumented in this encounter
--- OUTSIDE RECORDS SUMMARY | 2022-09-11 09:31 | XMS_ITS | Encounter Summary ---
:1960 Author Organization [facility] Address [address] [place] [address] Care Team Providers Name Role Phone Unavailable Primary Care Provider Unavailable Encounter Details Date Type Department Care Team Description 03/09/2003 Hospital [facility] Carrillo Charles M.D. [address] [place], [place] [address] Social History Tobacco Use Types Packs/Day Years Used Date Smoking Tobacco: Never Assessed Sex Assigned at Date Recorded Female 07/10/2022 7:32 AM CDT documented as of this encounter Progress Notes Conversion, Historical Provider Ser - 03/09/2003 9:15 AM CDT [id number] Addended by: MARY JEAN on: 03/12/2003,1:30 PM Comment: Group Controller.Modules accepted: Everardo rodriguez Notesdictation [place] is about [...] now. Jarrod Persaud M.D./rvD: 03/09/2003T: 03/12/2003 Source: [facility] RWHXTRANSXSYS Document Id: [id number] documented in this encounter Plan of Treatment Upcoming Encounters Date Type Specialty Care Team Description 10/10/2022 Office Visit Neurology Karin Ramachandran M.D., M.P.H. [address] [place] [phone] (Wo rk) documented as of this encounter Visit Diagnoses Not on filedocumented in this encounter
--- OUTSIDE RECORDS SUMMARY | 2022-09-11 09:31 | XMS_ITS | Encounter Summary ---
:1960 Author Organization [facility] Address [address] [place] [address] Care Team Providers Name Role Phone Unavailable Primary Care Provider Unavailable Encounter Details Date Type Department Care Team Description 04/06/2003 Hospital Encounter HX [facility] Carrillo Charles M.D. [address] [place], [place] [address] Social History Tobacco Use Types Packs/Day Years Used Date Smoking Tobacco: Never Assessed Sex Assigned at Date Recorded Female 07/10/2022 7:32 AM CDT documented as of this encounter Progress Notes Conversion, Historical Provider Ser - 04/06/2003 3:30 PM CDT [id number] Addended by: IZZY DRAKE on: 04/07/2003,3:27 PM Comment: transcriptionModules accepted: Everardo rodriguez Shaina is about 5 or 7 [...] basis. Carrillo Persaud M.D./mpD: 04/06/2003T: 04/07/2003 Source: [facility] RWHXTRANSXSYS Document Id: [id number] documented in this encounter Plan of Treatment Upcoming Encounters Date Type Specialty Care Team Description 10/10/2022 Office Visit Neurology Karin Ramachandran M.D., M.P.H. [address] [phone] ([facility]) documented as of this encounter Visit Diagnoses Not on filedocumented in this encounter
--- OUTSIDE RECORDS SUMMARY | 2022-09-11 09:31 | XMS_ITS | Encounter Summary ---
:1960 Author Organization [facility] Address [address] [place] [address] Care Team Providers Name Role Phone Unavailable [...] Provider Ser - 01/12/2003 8:00 AM CST [id number] Here to talk over contraception. Actually, she [...] yroidism, stable. Tobacco abuse. Contraception management. [facility] Document Id: [id number] documented in this encounter Plan of Treatment Upcoming Encounters Date Type Specialty Care Team Description 10/10/2022 Office Visit Neurology Karin Ramachandran M.D., M.P.H. [address], [place] [phone] (Wo rk) documented as of this encounter Visit Diagnoses Not on filedocumented in this encounter
--- OUTSIDE RECORDS SUMMARY | 2022-09-11 09:31 | XMS_ITS | Encounter Summary ---
:1960 Author Organization [facility] Address [address] [place] [address] Care Team Providers Name Role Phone Unavailable [...] Provider Ser - 12/15/2002 8:20 AM CST [id number] Here for reports:HTN: I am starting her [...] for a long time. Was told at [place] she has a disc problem. I referred [...] BP.20 min spent, all in counseling. Source: [facility] RWHXTRANSXSYS Document Id: [id number] documented in this encounter Plan of Treatment Upcoming Encounters Date Type Specialty Care Team Description 10/10/2022 Office Visit Neurology Karin Ramachandran M.D., M.P.H. [address] [phone] (Wo rk) documented as of this encounter Visit Diagnoses Not on filedocumented in this encounter
--- OUTSIDE RECORDS SUMMARY | 2022-09-11 09:32 | XMS_ITS | Encounter Summary ---
:1960 Author Organization [facility] Address [address] [place] [address] Care Team Providers Name Role Phone Unavailable Primary Care Provider Unavailable Encounter Details Date Type Department Care Team Description 11/10/2002 Hospital Encounter [facility] Social History Tobacco Use Types Packs/Day Years Used Date Smoking Tobacco: Never Assessed Sex Assigned at Date Recorded Female 07/10/2022 7:32 AM CDT documented as of this encounter Plan of Treatment Upcoming Encounters Date Type Specialty Care Team Description 10/10/2022 Office Visit Neurology Karin Ramachandran M.D., M.P.H. [address] [place], [place] [phone] (Wo rk) documented as of this encounter Visit Diagnoses Not on filedocumented in this encounter
--- OUTSIDE RECORDS SUMMARY | 2022-09-11 09:32 | XMS_ITS | Encounter Summary ---
:1960 Author Organization [facility] Address [address] [place] [address] Care Team Providers Name Role Phone Unavailable Primary Care Provider Unavailable Encounter Details Date Type Department Care Team Description 11/10/2002 Hospital Encounter HX [facility] Provider, Chapito galloway Social History Tobacco Use Types Packs/Day Years Used Date Smoking Tobacco: Never Assessed Sex Assigned at Date Recorded Female 07/10/2022 7:32 AM CDT documented as of this encounter Miscellaneous Notes Telephone Encounter - Conversion, Historical Provider Ser - 11/10/2002 12:00 AM CST [id number] >> ADRIANE DELGADO Bala Nov 10, 2002 [...] do fasting e xam on . [facility] Document Id: [id number] documented in this encounter Plan of Treatment Upcoming Encounters Date Type Specialty Care Team Description 10/10/2022 Office Visit Neurology Karin Ramachandran M.D., M.P.H. [address] [place], [place] [phone] (Wo rk) documented as of this encounter Visit Diagnoses Not on filedocumented in this encounter
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
--- OUTSIDE RECORDS SUMMARY | 2022-09-11 09:32 | XMS_ITS | Encounter Summary ---
:1960 Author Organization [facility] Address [address] [place] [address] Care Team Providers Name Role Phone Unavailable Primary Care Provider Unavailable Encounter Details Date Type Department Care Team Description 11/11/2002 Hospital Encounter HX NO MAPPING Fady Parsons M.D. [address] [place], [place] [address] Social History Tobacco Use Types Packs/Day Years Used Date Smoking Tobacco: Never Assessed Sex Assigned at Date Recorded Female 07/10/2022 7:32 AM CDT documented as of this encounter Plan of Treatment Upcoming Encounters Date Type Specialty Care Team Description 10/10/2022 Office Visit Neurology Karin Ramachandran M.D., M.P.H. [address] [place], [place] [phone] (Wo rk) documented as of this encounter Visit Diagnoses Not on filedocumented in this encounter
--- OUTSIDE RECORDS SUMMARY | 2022-09-11 09:32 | XMS_ITS | Encounter Summary ---
:1960 Author Organization [facility] Address [address] [place] [address] Care Team Providers Name Role Phone Unavailable Primary Care Provider Unavailable Encounter Details Date Type Department Care Team Description 09/10/2001 [facility] Provider, Chapito galloway Social History Tobacco Use Types Packs/Day Years Used Date Smoking Tobacco: Never Assessed Sex Assigned at Date Recorded Female 07/10/2022 7:32 AM CDT documented as of this encounter Progress Notes Conversion, Historical Provider Ser - 09/10/2001 12:00 AM CDT [id number] Zandra Taylor [id number] LIZETH STOLL [id number] quentin Zandra,I hope things are going well. [...] sample to determine status of hormones.Sincerely,KALEY Jaime- [facility] Document Id: [id number] documented in this encounter Plan of Treatment Upcoming Encounters Date Type Specialty Care Team Description 10/10/2022 Office Visit Neurology Karin Ramachandran M.D., M.P.H. [address] [place] [phone] (Wo rk) documented as of this encounter Visit Diagnoses Not on filedocumented in this encounter
--- OUTSIDE RECORDS SUMMARY | 2022-09-11 09:32 | XMS_ITS | Encounter Summary ---
:1960 Author Organization [facility] Address [address] [place] [address] Care Team Providers Name Role Phone Unavailable [...] Visit Neurology Karin Ramachandran M.D., M.P.H. [address] [place], [place] [phone] (Wo rk) documented as of this encounter Visit Diagnoses Not on filedocumented in this encounter
--- OUTSIDE RECORDS SUMMARY | 2022-09-11 09:32 | XMS_ITS | Encounter Summary ---
:1960 Author Organization [facility] Address [address] [place] [address] Care Team Providers Name Role Phone Unavailable Primary Care Provider Unavailable Encounter Details Date Type Department Care Team Description 10/28/2001 Hospital [facility] Provider, Chapito galloway Social History Tobacco Use Types Packs/Day Years Used Date Smoking Tobacco: Never Assessed Sex Assigned at Date Recorded Female 07/10/2022 7:32 AM CDT documented as of this encounter Miscellaneous Notes Miscellaneous - Conversion, Historical Provider Ser - 10/28/2001 12:00 AM PERSONAL FINANCIAL ADVISOR [id number] Zandra Lopez [id number] [place] [address]O[place] [id number] MR# [id number] October 28, 2001 Dear Zandra Lopez, It [...] be addressed. Sincerely, Anjelica White PA-C [facility] Source: [facility] Document Id: [id number] documented in this encounter Plan of Treatment Upcoming Encounters Date Type Specialty Care Team Description 10/10/2022 Office Visit Neurology Karin Ramachandran M.D., M.P.H. [address], [place] [phone] (Wo rk) documented as of this encounter Visit Diagnoses Not on filedocumented in this encounter
--- OUTSIDE RECORDS SUMMARY | 2022-09-11 09:32 | XMS_ITS | Encounter Summary ---
:1960 Author Organization [facility] Address [address] [place] [address] Care Team Providers Name Role Phone Unavailable Primary Care Provider Unavailable Encounter Details Date Type Department Care Team Description 11/03/2001 Hospital Encounter [facility] Provider, Chapito galloway Social History Tobacco Use Types Packs/Day Years Used Date Smoking Tobacco: Never Assessed Sex Assigned at Date Recorded Female 07/10/2022 7:32 AM CDT documented as of this encounter Miscellaneous Notes Telephone Encounter - Conversion, Historical Provider Ser - 11/03/2001 12:00 AM CST [id number] >> LAMBERTO DOWNEY SatMay 11, 2002 3:58 [...] RECEIVED. Contact: uses Levoxyl and called to [phone]. OP Source: [facility] RWHXTRANSXSYS Document Id: [id number] documented in this encounter Plan of Treatment Upcoming Encounters Date Type Specialty Care Team Description 10/10/2022 Office Visit Neurology Karin Ramachandran M.D., M.P.H. [address] [place], [place] [phone] (Wo rk) documented as of this encounter Visit Diagnoses Not on filedocumented in this encounter
[2022-09-11 12:42] LABS: Chloride* 98 mmol/L (96-114); Potassium* 4.5 mmol/L (3.6-5.1); Sodium* 129 mmol/L (135-149)
[2022-09-11 12:44] LABS: Creatinine* 0.5 mg/dL (0.5-1.5); Estimated Glomerular Filt Rate 105 ml/min
[2022-09-11 12:45] LABS: Blood Urea Nitrogen* 9 mg/dL (7-30); Calcium* 9.7 mg/dL (8.4-10.6); Carbon Dioxide* 26 mmol/L (20-32); Glucose* 108 mg/dL (60-115)
== END 2022-09-11 09:19 | disposition home or self-care (01) ==
LOC: NFLDREF 09:19
PROVIDERS: PCP Family Medicine; Visit Provider Family Medicine
DX: E87.1 Hypo-osmolality and hyponatremia (principal)
CPT/HCPCS: 80048

== ENCOUNTER 2022-09-21 09:19 | Outpatient (CLI) | payer BC, SELFPAY ==
--- OUTSIDE RECORDS SUMMARY | 2022-09-21 09:00 | XMS_ITS | Encounter Summary ---
:1960 Author Organization [facility] Address [address] [place] [address] Care Team Providers Name Role Phone Elsewhere, Pcp Primary Care Provider Unavailable Reason for Referral Outpatient (Routine) - Authorized Specialty Diagnoses / Procedures Referred By Contact Refer red To Contact Neurology Karin Ramachandran M.D ., M.P.H. [facility] [address] [place] [phone] Referral ID Status Reason Start Date Expiration Date Visits V isits Requested Authorized [id number] Authorized 07/10/2022 07/10/2023 1 1 Outpatient (Routine) - Closed Specialty Diagnoses / Procedures Referred By Contact Refer red To Contact Diagnoses Seizure (HCC) Karin Ramachandran M.D., M.P.H. [facility] Procedures EEG [address] [place] [phone] Referral ID Status Reason Start Date Expiration Date Visits Requ ested Visits Authorized [id number] Closed 07/10/2022 07/10/2023 1 1 Reason for Visit Reason Comments Seizures Ref. Dr. Heller Appointment Request (Routine) - Closed Specialty Diagnoses / Procedures Referred By Contact Refer red To Contact Neurology Referral ID Status Reason Start Date Expiration Date Visits Requ ested Visits Authorized [id number] Closed 06/21/2022 06/21/2023 1 Encounter Details Date Type Department Care Team Description 07/10/2022 Comprehensive Visit Department of Karin Ramachandran Seizure ([facility]) (Primary Dx); Neurology in [place], Seizure Recurre nt Nonintractable (HCC); [facility]. 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 She was admitted to [place] in 2016 were she is diagnosed with [...] have been seizures one prompted admission to [facility] when the rescue squad was called [...] the cousin after the 2015 admission in [place]. She has remainedon that as far as anybody knows for her seizures. And in [facility] they draw attention to history of alcohol withdrawal seizures. She saw Dr. Rolando Tiwari and he ordered an EEG in 2019 and that is pasted below and this was normal. CT scan of the head from 04/01/2022 in [facility] reveals moderate bifrontal cortical atrophy with mild chronic white matter changes. After this event in [facility] I am that the cousin describes she was placed on Keppra presently 750 mg p.o. b.i.d.. Other risk factors for seizures include multiple head injuries from falling down when she was drunk.There is no history of epilepsy in the family there is no history of GARBAGE TRUCK DRIVER infections nor febrile seizures. CT scan of the head reveals nonspecific but per perhaps more prominent atrophy than one would anticipate from 61-year-old. Her a record from [facility] reports an acute seizure on 05/28/2020 and that would be in line with the EEG that was ordered by Dr. Tiwari. I can not elicit a history about that event. She has not have any difficulty with the 750 mg p.o. b.i.d. of levetiracetam and she remained on that with gabapentin. She has refrain from using alcohol since the admission to [facility] in March. From Dr. Soto's note [...] (two) times a day., Disp: , Rfl: eteplejclmpc-Vn-kmxv-minerals tablet, 1 tablet., Disp: , Rfl: omeprazole [...] Latex Rash LATEX - rash, hives Poison [place] Extract Edema Family History Problem Relation Age [...] She is in good spirits CRANIAL NERVES: counselor supervisor II-XII intact and symmetric. I do not [...] Visit Neurology Karin Ramachandran M.D., M.P.H. [address] [phone] (Wo rk) Scheduled Referrals Name Type Priority Associated Diagnoses Order [facility] Neu[facility] office Outpatient Referral Routine Expe cted: [...] documented as of this encounter Care Teams Manager Video Games Relationship 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
--- OUTSIDE RECORDS SUMMARY | 2022-09-21 09:00 | XMS_ITS | Clinical Summary ---
:1960 Author Organization [facility] Address [address] [place] [address] Care Team Providers Name Role Phone Elsewhere, Pcp Primary Care Provider Unavailable Source Comments Patient records contain information from all sites at [facility]. For routine questions regarding patient records, call [phone] during business hours, M-F 8:00 AM - 5:00 PM Central Time. Record requests for emergency care only can be directed to [phone] at any time.[facility] Allergies Active Allergy Reactions Severity Noted Date Comments Latex Rash 04/22/2009 LATEX - rash, h mirta Poison [place] Extract Edema 04/20/2014 Medications Medication Sig Dispensed [...] times a day. 0 05/22/2022 Active ORAL ujosnvqlsqgf-Qn-rpq 1 tablet. 0 05/22/2022 Active n-minerals tablet [...] Karin Ramachandran M.D., M.P.H. [address] [place] [phone] (Wo rk) Health Maintenance Due Date [...] Typ e / Group Dates GERONIMO MELTON [id number] 2018-Pres [phone] LIZETH LOPEZ [phone] Care Teams Anesthesia Resident Relationship Specialty Start Date End Date Elsewhere, Pcp PCP - General Internal Medicine 01/15/20
--- OUTSIDE RECORDS SUMMARY | 2022-09-21 09:00 | XMS_ITS | Encounter Summary ---
:1960 Author Organization [facility] Address [address] [place] [address] Care Team Providers Name Role Phone Elsewhere, Pcp Primary Care Provider Unavailable Encounter Details Date Type Department Care Team Description 10/29/2020 Clinical Communication Central Appointment Line, Covid Help Office in [place], [place] [address] [place] [address] Social History Tobacco Use Types [...] to be swabbed for COVID-19, sent to [facility] located at [address] You must call [phone] for an appointment time. Testing hours are [...] request for public health , sent to [facility] located at [address] You must call [phone] for an appointment time. Testing hours are [...] and water aren't available, use a hand renewals manager that contains at least 60% alcohol. Avoid [...] since you were tested. Educational Resource: https://www.cdc.gov/coronavirus/2019-ncov/ fmxfsbw-tpsdogt-aduk/index.html Education: Not applicable Patient agreeable to plan of care: Yes The following references were used: [facility] novel coronavirus (COVID- 19) resources [facility] documented in this encounter Plan of Treatment Upcoming Encounters Date Type Specialty Care Team Description 10/10/2022 Office Visit Neurology Karin Ramachandran M.D., M.P.H. [address] [place], [place] [phone] (Wo rk) documented as of this encounter Visit Diagnoses Not on filedocumented in this encounter Additional Health Concerns Assessment Noted Time PHQ-9 Depression Total Score: 6 03/20/2017 1:11 PM CDT documented as of this encounter Care Teams Paper Control Clerk Relationship 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
--- OUTSIDE RECORDS SUMMARY | 2022-09-21 09:00 | XMS_ITS | Encounter Summary ---
:1960 Author Organization [facility] Address [address] [place] [address] Care Team Providers Name Role Phone Elsewhere, Pcp Primary Care Provider Unavailable Reason for Visit Outpatient (Routine) - Closed Specialty Diagnoses / Procedures Referred By Contact Refer red To Contact Diagnoses Seizure (HCC) Karin Ramachandran M.D., M.P.H. [facility] Procedures EEG [address] [place] [phone] Referral ID Status Reason Start Date Expiration Date Visits Requ ested Visits Authorized [id number] Closed 07/10/2022 07/10/2023 1 1 Encounter Details Date Type Department Care Team Description 08/30/2022 Diagnostic Department of Neurology in Karin Ramachandran, Seizure (HCC) [place], [place] Milly, M.P.H. [address] [place] [address] [place], [place] [phone] (Howie dean) Social History Tobacco Use [...] Neurology Karin Ramachandran M.D., M.P.H. [address] [place], [place] [phone] (Wo rk) documented as [...] documented as of this encounter Care Teams Karate Instructor Relationship 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
--- OUTSIDE RECORDS SUMMARY | 2022-09-21 09:00 | XMS_ITS | Clinical Summary ---
:1960 Author Organization [facility] [place] [address] Care Team Providers Name Role Phone Luann Juarez Primary Care Provider [phone] Allergies Active Allergy Reactions Severity Noted Date Comments Latex 04/22/2009 Poison [place] Extract Edema 04/20/2014 Medications Medication Sig Dispensed [...] containing 4 or more times a w [facility]. michael ira 10/20/2019 alcohol? How many drinks containing alcohol [...] Comments Blood Pressure 139/82 10/20/2019 7:49 AM HOT DIMPLING MACHINE OPERATOR Pulse 107 10/20/2019 7:49 AM HOT DIMPLING MACHINE OPERATOR Temperature 36.7 ??C (98.1 ??F) 10/20/2019 7:49 AM HOT DIMPLING MACHINE OPERATOR Respiratory Rate - - Oxygen Saturation 100% 10/20/2019 7:49 AM HOT DIMPLING MACHINE OPERATOR Inhaled Oxygen Concentration - - Weight 54.4 kg (120 lb) 10/20/2019 7:49 AM HOT DIMPLING MACHINE OPERATOR Height 160 cm (5' 3) 10/20/2019 7:49 AM HOT DIMPLING MACHINE OPERATOR Body Mass Index 21.26 10/20/2019 7:49 AM HOT DIMPLING MACHINE OPERATOR Plan of Treatment Health Maintenance Due Date [...] Type Group BLUE CROSS BLUE CROSS OF [id number] 2020-Liat [address] [facility] [place] [address] Advance Directives Documents on File Type Date Recorded Patient Visual Manager Explanati on Healthcare Directive 12/30/2019 12/30/2019 Care Teams Poultry Packer Relationship Specialty Start Date End Date Luann Juarez PA PCP - General Physician Dry Mixer 02/23/19 [facility] [id number]
--- OUTSIDE RECORDS SUMMARY | 2022-09-21 09:00 | XMS_ITS | Encounter Summary ---
:1960 Author Organization [facility] Address [address] [place] [address] Care Team Providers Name Role Phone Elsewhere, Pcp Primary Care Provider Unavailable Reason for Visit Reason Onset Date Comments Outpatient COVID-19 Testing 10/31/2020 Encounter Details Date Type Department Care Team Description 10/31/2020 External Outreach Department of [facility] Jennifer Starks Infection Upper Medicine, [place] Cait Jensen Respiratory (Primary Clinic, in [place], [address] [place], [place] [address] [address] [place], [place] [phone] [address] (Work) [phone] Social History Tobacco Use Types Packs/Day Years Used Date Smoking Tobacco: Heavy Smoker Sex Assigned at Date Recorded Female 07/10/2022 7:32 AM CDT documented as of this encounter Progress Notes Dai Ash L.PEvansN. - 10/31/2020 2:27 PM CST Encounter created for the drive-through COVID-19 testing. SAFETY OFFICER documented in this encounter Plan of Treatment Upcoming Encounters Date Type Specialty Care Team Description 10/10/2022 Office Visit Neurology Karin Ramachandran M.D., M.P.H. [address] [place], [place] [phone] (Wo rk) documented as of this encounter Visit Diagnoses Diagnosis Infection Upper Respiratory - Primary documented in this encounter Additional Health Concerns Infection Onset Date Last Indicated Resolved Time COVID19 Pending 10/31/2020 11/01/2020 11/07/2020 1:16 PM FOOD SAFETY OFFICER Assessment Noted Time PHQ-9 Depression Total Score: 6 03/20/2017 1:11 PM CDT documented as of this encounter Care Teams Auxiliary Operator Relationship 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
--- OUTSIDE RECORDS SUMMARY | 2022-09-21 09:00 | XMS_ITS | Encounter Summary ---
:1960 Author Organization [facility] Address [address] [place] [address] Care Team Providers Name Role Phone Elsewhere, Pcp Primary Care Provider Unavailable Encounter Details Date Type Department Care Team Description 05/01/2021 Orders Only Division of Trauma Carito Nicholas, [place] re Rib Multiple Critical Care and M.D. Subsequent With Routine General Surgery in [address] [facility] Healing Right (Primary [place], [place] Dx) [address] [facility] [address] [place], [place] [phone] [address] (Work) [phone] Social History Tobacco Use Types Packs/Day Years [...] Visit Neurology Karin Ramachandran M.D., M.P.H. [address] [phone] (Wo rk) documented as of this encounter Visit Diagnoses Diagnosis Fracture Rib Multiple Subsequent With Ro utine Healing Right - Primary documented in this encounter Additional Health Concerns Assessment Noted Time PHQ-9 Depression Total Score: 6 03/20/2017 1:11 PM CDT documented as of this encounter Care Teams Isotope Hydrologist Relationship 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
--- OUTSIDE RECORDS SUMMARY | 2022-09-21 09:00 | XMS_ITS | Encounter Summary ---
:1960 Author Organization [facility] Address [address] [place] [address] Care Team Providers Name Role Phone Faye Liao M.D. Primary Care Provider Encounter Details Date Type Department Care Team Description 06/02/2018 Orders Only Department of Faye Liao Hypothyro idism (Primary [facility] Internal M.D. Dx) Medicine in [place], [address] [place] [address] [address] [address] [place], [place] [phone] (Work) [phone] Social History Tobacco Use Types Packs/Day Years Used Date Smoking Tobacco: Heavy Smoker Sex Assigned at Date Recorded Female 07/10/2022 7:32 AM CDT documented as of this encounter Plan of Treatment Upcoming Encounters Date Type Specialty Care Team Description 10/10/2022 Office Visit Neurology Karin Ramachandran M.D., M.P.H. [address] [phone] (Wo rk) documented as of this encounter Visit Diagnoses Diagnosis Hypothyroidism - Primary documented in this encounter Additional Health Concerns Assessment Noted Time PHQ-9 Depression Total Score: 6 03/20/2017 1:11 PM CDT documented as of this encounter Care Teams Gas Golf Cart Repairer Relationship Specialty Start Date End Date Faye Liao M.D. PCP - General 05/09/17 01/14/[address] [place] [phone] documented as of this encounter
--- OUTSIDE RECORDS SUMMARY | 2022-09-21 09:00 | XMS_ITS | Encounter Summary ---
:1960 Author Organization [facility] Address [address] [place] [address] Care Team Providers Name Role Phone Faye Liao M.D. Primary Care Provider Encounter Details Date Type Department Care Team Description 03/18/2018 Orders Only Department of Faye Liao Monitorin g For Therapeutic Drug Therapy (Primary Dx); [facility] Internal MChristiano Hypertension Essential Primary; Medicine in [address] Screening Mammogram Average Risk Patient [place], [place] [address] [address] [place], [place] [phone] (Work) [phone] Social History Tobacco Use Types Packs/Day Years Used Date Smoking Tobacco: Heavy Smoker Sex Assigned at Date Recorded Female 07/10/2022 7:32 AM CDT documented as of this encounter Plan of Treatment Upcoming Encounters Date Type Specialty Care Team Description 10/10/2022 Office Visit Neurology Karin Ramachandran M.D., M.P.H. 2[address] [place], [place] [phone] (Wo rk) documented as of this encounter Visit Diagnoses Diagnosis Monitoring For Therapeutic Drug Therapy - Primary Hypertension Essential Primary Screening Mammogram Average Risk Patient documented in this encounter Additional Health Concerns Assessment Noted Time PHQ-9 Depression Total Score: 6 03/20/2017 1:11 PM CDT documented as of this encounter Care Teams Overnight Associate Relationship Specialty Start Date End Date Faye Liao M.D. PCP - General 05/09/17 01/14/[address] [place] [phone] documented as of this encounter
--- OUTSIDE RECORDS SUMMARY | 2022-09-21 09:00 | XMS_ITS | Encounter Summary ---
:1960 Author Organization [facility] Address [address] [place] [address] Care Team Providers Name Role Phone Faye Liao M.D. Primary Care Provider Reason for Visit Reason Comments Med Refill Encounter Details Date Type Department Care Team Description 05/30/2018 Refill Department of [facility] Faye Liao M.D. Med Refill Internal Medicine in [place], [address] [place] [address] [facility] [place] [address] [phone] Social History Tobacco Use Types Packs/Day Years Used Date Smoking Tobacco: Heavy Smoker Sex Assigned at Date Recorded Female 07/10/2022 7:32 AM CDT documented as of this encounter Miscellaneous Notes Telephone Encounter - Ashanti King - 06/11/2018 9:34 AM CDT Letter sent. Telephone Encounter - Magda Cmaara - 06/02/2018 11:26 AM CDT Unable to [...] Visit Neurology Karin Ramachandran M.D., M.P.H. 2[address] [place], [place] [phone] (Wo rk) documented as of this encounter Visit Diagnoses Not on filedocumented in this encounter Additional Health Concerns Assessment Noted Time PHQ-9 Depression Total Score: 6 03/20/2017 1:11 PM CDT documented as of this encounter Care Teams Gore Cutter Relationship Specialty Start Date End Date Faye Liao M.D. PCP - General 05/09/17 01/14/20 [address] [place] [address] documented as of this encounter
--- OUTSIDE RECORDS SUMMARY | 2022-09-21 09:00 | XMS_ITS | Encounter Summary ---
:1960 Author Organization [facility] Address [address] [place] [address] Care Team Providers Name Role Phone Faye Liao M.D. Primary Care Provider Encounter Details Date Type Department Care Team Description 09/24/2018 Orders Only Department of [facility] Faye Liao M.D. Internal Medicine in [address] [place] [address] [place] [address] [phone] Social History Tobacco Use Types Packs/Day Years Used Date Smoking Tobacco: Heavy Smoker Sex Assigned at Date Recorded Female 07/10/2022 7:32 AM CDT documented as of this encounter Plan of Treatment Upcoming Encounters Date Type Specialty Care Team Description 10/10/2022 Office Visit Neurology Karin Ramachandran M.D., M.P.H. [address] [phone] (Wo rk) documented as of this encounter Visit Diagnoses Not on filedocumented in this encounter Additional Health Concerns Assessment Noted Time PHQ-9 Depression Total Score: 6 03/20/2017 1:11 PM CDT documented as of this encounter Care Teams Business Performance Advisor Relationship Specialty Start Date End Date Faye Liao M.D. PCP - General 05/09/17 01/14/[address] [place] [phone] documented as of this encounter
--- OUTSIDE RECORDS SUMMARY | 2022-09-21 09:00 | XMS_ITS | Encounter Summary ---
:1960 Author Organization [facility] Address [address] [place] [address] Care Team Providers Name Role Phone Faye Liao M.D. Primary Care Provider Reason for Referral Outpatient (Routine) - Closed Specialty Diagnoses / Procedures Referred By Contact Refer red To Contact Diagnoses Alcohol Mild Use Disorder (Abuse) Uncomplicated Faye Liao M.D. [address] [place] [address] Referral ID Status Reason Start Date Expiration Date Visits Requ ested Visits Authorized [id number] Closed 2017 03/04/2018 1 1 Encounter Details Date Type Department Care Team Description 2017 Orders Only Department of Faye Liao, [facility] Internal Milly Uncomplicated Medicine in [address] [address] [place], [place] [phone] (Work) [phone] Social History Tobacco Use Types Packs/Day Years Used Date Smoking Tobacco: Every Day Sex Assigned at Date Recorded Female 07/10/2022 7:32 AM CDT documented as of this encounter Plan of Treatment Upcoming Encounters Date Type Specialty Care Team Description 10/10/2022 Office Visit Neurology Karin Ramachandran M.D., M.P.H. 2[address] [place], [place] [phone] (Wo rk) Scheduled Referrals Name Type Priority Associated Diagnoses Order [facility] Internal Outpatient Referral Routine Alcohol Abuse E xpected: Medicine office Uncomplicated 02/17/2018 visit (clinic) (Approximate) , Expires: 02/21/2023 documented as of this encounter Visit Diagnoses Diagnosis Alcohol Mild Use Disorder (Abuse) Uncomp licated documented in this encounter Additional Health Concerns Assessment Noted Time PHQ-9 Depression Total Score: 6 03/20/2017 1:11 PM CDT documented as of this encounter Care Teams Change Room Attendant Relationship Specialty Start Date End Date Faey Liao M.D. PCP - General 05/09/17 01/14/20 [address] [place] [address] documented as of this encounter
--- OUTSIDE RECORDS SUMMARY | 2022-09-21 09:00 | XMS_ITS | Encounter Summary ---
:1960 Author Organization [facility] Address [address] [place] [address] Care Team Providers Name Role Phone Faye Liao M.D. Primary Care Provider Reason for Visit Reason Onset Date Comments Med Refill 12/03/2017 Encounter Details Date Type Department Care Team Description 12/03/2017 Clinical Communication Department of Faye Liao, Med Refill [facility] Internal M.Sonia Medicine in [place] [address] [address] [address] [place], [place] [phone] (Work) [phone] Social History Tobacco Use Types Packs/Day Years Used Date Smoking Tobacco: Every Day Sex Assigned at Date Recorded Female 07/10/2022 7:32 AM CDT documented as of this encounter Miscellaneous Notes Telephone Encounter - Kesha Galvan L.PEvansN. - 12/10/2017 4:44 PM AUXILIARY POWERPLANT OPERATOR Request went through for gabapentin. Was not able to get a hold of patient to ask if she needed other medications. LIARY POWERPLANT OPERATOR Telephone Encounter - Kesha Galvan L.PEvansN. - 12/03/2017 3:20 PM AUXILIARY POWERPLANT OPERATOR Call cannot be completed as dialed message comes on when this number is dialed. LIARY POWERPLANT OPERATOR Telephone Encounter - Adwoa Alexander - 12/03/2017 8:32 AM CST Patient is calling to let Dr. Liao know that her will be in [place] for a couple of weeks for a bone marrow transplant. Patient needs refills of her Gabapentin, levothyroxine, and her blood pressure medication. Patient is very upset and can't think so she asked if all her medications can be reviewed and fill which ever she needs refills on. Please send to [facility] pharmacy in [place]. Patient is requesting this be done today. I told patient that I could not guarantee that we will be able to get this filled today as we usually need up to 3 days to process a refill request. Please call patient with any questions and with status of refill. LIARY POWERPLANT OPERATOR documented in this encounter Plan of Treatment Upcoming Encounters Date Type Specialty Care Team Description 10/10/2022 Office Visit Neurology Karin Ramachandran M.D., M.P.H. [address] [phone] (Wo rk) documented as of this encounter Visit Diagnoses Not on filedocumented in this encounter Additional Health Concerns Assessment Noted Time PHQ-9 Depression Total Score: 6 03/20/2017 1:11 PM CDT documented as of this encounter Care Teams Commercial Helicopter Pilot Relationship Specialty Start Date End Date Faye Liao M.D. PCP - General 05/09/17 01/14/20 [address] [place] [address] documented as of this encounter
--- OUTSIDE RECORDS SUMMARY | 2022-09-21 09:00 | XMS_ITS | Encounter Summary ---
:1960 Author Organization [facility] Address [address] [place] [address] Care Team Providers Name Role Phone Faye Liao M.D. Primary Care Provider Reason for Visit Reason Comments Med Refill Encounter Details Date Type Department Care Team Description 12/03/2017 Refill Department [facility] Faye Liao M.D. Med Refill Internal Medicine in [place], [address] [place] [address] [facility] [place] [address] [phone] Social History Tobacco Use Types Packs/Day Years Used Date Smoking Tobacco: Every Day Sex Assigned at Date Recorded Female 07/10/2022 7:32 AM CDT documented as of this encounter Plan of Treatment Upcoming Encounters Date Type Specialty Care Team Description 10/10/2022 Office Visit Neurology Karin Ramachandran M.D., M.P.H. [address] [phone] ( rk) documented as of this encounter Visit Diagnoses Not on filedocumented in this encounter Additional Health Concerns Assessment Noted Time PHQ-9 Depression Total Score: 6 03/20/2017 1:11 PM CDT documented as of this encounter Care Teams Security Intelligence Analyst Relationship Specialty Start Date End Date Faye Liao M.D. PCP - General 05/09/17 01/14/20 [address] [place] [phone] documented as of this encounter
--- OUTSIDE RECORDS SUMMARY | 2022-09-21 09:00 | XMS_ITS | Encounter Summary ---
:1960 Author Organization [facility] Address [address] [place] [address] Care Team Providers Name Role Phone Elsewhere, Pcp Primary Care Provider Unavailable Reason for Visit Reason Comments Fall Rib Injury Encounter Details Date Type Department Care Team Description 04/28/2021 Emergency [facility] John Farley Fra cture Rib Multiple Emergency Department P.A.-C. Closed Initial Right [address] (Primary Dx) [place] [phone] (Wo rk) Social History Tobacco Use Types [...] being seen at an urgent care in [place] for right sided rib pain that she [...] pain she was evaluated in urgent carein [place] today was found to have multiple rib fractures and other scapular hematoma on exam. She was referred to the [facility] Emergency Department for further evaluation and treatment. [...] rib fractures. She was referred to the [facility] Emergency Department for further evaluation and treatment. [...] Visit Neurology Karin Ramachandran M.D., M.P.H. [address] [phone] (Wo rk) documented [...] thoracic and lumbar spine. John Farley P.A.-C. [place] PROCEDURES DX Chest Portable 1 View [...] Rapid, V Symptomatic (04/28/2021 1:11 PM CDT) [facility] Method Time Signature SARS CoV-2, Undetected Undetected 04/28/2021 STMA PCR, Rapid, V 1:38 PM CDT Comment: ----ADDITIONAL INFORMATION---- This RT-PCR test was performed using the Won SARS-CoV-2 and Influenza A/B Reagent assay from [employer], which has received Emergency Use Authori zation(EUA) by the U.S. Food and Drug Administration . Fact sheets for this Emergency Use Autho rization (EUA) assay can be found at the following link s: For Healthcare Providers: https://www.fda.gov/media/860270/downloa d For Patients: https://www.fda.gov/media/398408/downloa d SARS Coronavirus 2, Source, Rapid Swab, Nasopharynx 04/28/2021 1:11 PM CDT STMA Specimen Anatomical Collection Method Collection Time Receive d Time (Source) Location / / Volume Laterality Varies 04/28/2021 1:11 PM 1:11 (Nasopharynx) CDT PM CDT John Farley P.A.-C. LAB MICROBIOLOGY - GENERAL O RDERABLES Performing Organization Address City/State/ZIP Code Phon e Number [facility] - [address] [place] [address] [place] [address] [facility] [address] Type and Screen (with reflex Antibody ID) (04/28/2021 1:03 PM CDT) [facility] Method Time Signature ABORh O Pos Not 04/28/2021 STRM applicable 1:33 PM CDT Antibody Negative Negative 04/28/2021 STRM Screen 1:46 PM CDT Type & Screen 05/01/2021 04/28/2021 STRM Expiration 23:59 1:33 PM CDT Testing [place] DEFAULT 04/28/2021 STRM Location 1:09 PM CDT Specimen Anatomical Collection Method Collection Time Receive d Time (Source) Location / / Volume Laterality Blood (Blood, 04/28/2021 1:03 PM 04/28/20 1:09 Venous) CDT PM CDT John Farley P.A.-C. LAB BLOOD BANK TEST ORDERABL ES Performing Organization Address City/State/ZIP Code Phon e Number [facility] - [address] [place], [place] [address] [facility] [place] [address] [facility] [address] (ABNORMAL) Basic Metabolic Panel [...] CDT eGFR-Black/Afri >90 >=60 04/28/2021 STMA can Serbian mL/min/BSA 1:24 PM CDT Comment: ----ADDITIONAL INFORMATION---- [...] City/State/ZIP Code Phon e Number [facility] - [address] [place] [address] [facility] [place] [address] [facility] [address] [facility] (ABNORMAL) CBC with Differential, Blood (04/28/2021 1:03 PM CDT) [facility] Method Time Signature Hemoglobin 12.8 11.6 [...] City/State/ZIP Code Phon e Number [facility] - [address] [place], [place] [address] [place] [address] [facility] [address] documented in this [...] documented as of this encounter Care Teams Tester Printed Circuit Boards Relationship 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
--- OUTSIDE RECORDS SUMMARY | 2022-09-21 09:00 | XMS_ITS | Encounter Summary ---
:1960 Author Organization [facility] Address [address] [place] [address] Care Team Providers Name Role Phone Faye Liao M.D. Primary Care Provider Reason for Visit Reason Comments Med Refill Encounter Details Date Type Department Care Team Description 04/04/2018 Refill Department [facility] Faye Liao M.D. Med Refill Internal Medicine in [place], [address] [place] [address] [facility] [place] [address] [phone] Social History Tobacco Use Types Packs/Day Years Used Date Smoking Tobacco: Heavy Smoker Sex Assigned at Date Recorded Female 07/10/2022 7:32 AM CDT documented as of this encounter Plan of Treatment Upcoming Encounters Date Type Specialty Care Team Description 10/10/2022 Office Visit Neurology Karin Ramachandran M.D., M.P.H. [address] [phone] ( rk) documented as of this encounter Visit Diagnoses Not on filedocumented in this encounter Additional Health Concerns Assessment Noted Time PHQ-9 Depression Total Score: 6 03/20/2017 1:11 PM CDT documented as of this encounter Care Teams Sole Conditioner Relationship Specialty Start Date End Date Faye Liao M.D. PCP - General 05/09/17 01/14/20 [address] [place] [phone] documented as of this encounter
--- OUTSIDE RECORDS SUMMARY | 2022-09-21 09:00 | XMS_ITS | Encounter Summary ---
:1960 Author Organization [facility] Address [address] [place] [address] Care Team Providers Name Role Phone Faye Liao M.D. Primary Care Provider Reason for Visit Reason Comments Med Refill Encounter Details Date Type Department Care Team Description 05/31/2018 Refill Department [facility] Faye Liao M.D. Med Refill Internal Medicine in [place], [address] [place] [address] [facility] [place] [address] [phone] Social History Tobacco Use Types Packs/Day Years Used Date Smoking Tobacco: Heavy Smoker Sex Assigned at Date Recorded Female 07/10/2022 7:32 AM CDT documented as of this encounter Plan of Treatment Upcoming Encounters Date Type Specialty Care Team Description 10/10/2022 Office Visit Neurology Karin Ramachandran M.D., M.P.H. [address] [phone] ( rk) documented as of this encounter Visit Diagnoses Not on filedocumented in this encounter Additional Health Concerns Assessment Noted Time PHQ-9 Depression Total Score: 6 03/20/2017 1:11 PM CDT documented as of this encounter Care Teams Commercial Technician Relationship Specialty Start Date End Date Faye Liao M.D. PCP - General 05/09/17 01/14/20 [address] [place] [phone] documented as of this encounter
--- OUTSIDE RECORDS SUMMARY | 2022-09-21 09:00 | XMS_ITS | Encounter Summary ---
:1960 Author Organization [facility] Address [address] [place] [address] Care Team Providers Name Role Phone Unavailable Primary Care Provider Unavailable Encounter Details Date Type Department Care Team Description 03/26/2017 Hospital Encounter [facility] Aurelia Grigsby M.D. [address] [place] [phone] (Wo rk) Social History Tobacco [...] Results Letter March 29, 2017 ZANDRA MAI [address] [address] [place] [id number] Dear ZANDRA MAI, I am pleased to [...] an e-mail account, join the other 900,000 [facility] patients who use the Patient Online Services to conveniently access their lab results by calling [phone] to sign up for an account. It [...] 304 03/26/2017 150 - 450 [facility] Negative 03/26/2017 Negative - Sincerely, FAYE YADAV [facility] [place] [address] Electronic Signature Electronically Signed By: FAYE YADAV MD On: March 29, 2017 This document has images extracted. Source: [facility] POWERCHART Document Id: [id number] Electronically signed by Conversion, [facility] Warehouse Record Clerk [id number] at 05/07/2017 5:05 AM CDT documented in this encounter Plan of Treatment Upcoming Encounters Date Type Specialty Care Team Description 10/10/2022 Office Visit Neurology Karin Ramachandran M.D., M.P.H. [address] [place], [place] [phone] (Wo rk) documented as [...] X109L Erythrocytes 4.49 3.90 - POWERCHART 5.03 I2006T Hemoglobin 15.6 (H) 12.0 - POWERCHART 15.5 [...] athologist Signature HXHCV Ab Negative Negative POWERCHART [facility] Comment: Dxlxqq-jf-sievyn ratio is <1.00. Test Performed by: [facility] [address] [place] [id number] Specimen (Source) Anatomical Collection Method Collection Time [...] POWERCHART MGDL eGFR Black/ >60 >=60 POWERCHART Cymro [id number] 2 HXeGFR (MDRD) >60 >=60 POWERCHART [id number] 2 Comment: Results are in mL/min/1.73m CKD [...]
--- OUTSIDE RECORDS SUMMARY | 2022-09-21 09:01 | XMS_ITS | Encounter Summary ---
:1960 Author Organization [facility] Address [address] [place] [address] Care Team Providers Name Role Phone Unavailable Primary Care Provider Unavailable Encounter Details Date Type Department Care Team Description 03/17/2014 Hospital Encounter HX [facility] Aurelia Núñez M.D. [address] [place] [address] (Wo rk) Social History Tobacco [...] 1 year on 10/09/13. Satisfied by Contributor_system, [facility]_HX_IMM_SYS SYSTEMS REVIEW GENERAL: no fevers, chills, or [...] # 90 tab(s), 3 Refill(s), Maintenance, Pharmacy: [facility][id number] Creatinine Glucose, Fasting* Disorder of Bone and [...] # 90 tab(s), 3 Refill(s), Maintenance, Pharmacy: [facility] #[id number] Thyroid Stimulating Hormone Return in 1 year or sooner if needed. Due for pelvic/pap and mammogram and breast exam. Billing Diagnoses --> Electronically Signed By: FAYE YADAV MD On: 03/17/2014 06:06 PM Source: [facility] Document Id: [id number] documented in this encounter Nursing Notes Faye Yadav M.D. - 03/17/2014 9:18 AM CDT Ambulatory Patient Education The following Patient Education Materials have been given to the patient: Patient Education Materials: Source: [facility] Document Id: [id number] documented in this encounter Miscellaneous Notes Miscellaneous - Conversion, Historical Provider Ser - 03/18/2014 3:18 PM CDT MONICA-7 MONICA-7 Entered On: 03/18/2014 15:18 CDT Performed On: 03/18/2014 15:18 CDT by ELISSA JARAMILLO [facility] GAD7 GAD7 Feeling nervous : Not [...] 15:18 CDT Source: [facility] POWERCHART Document Id: [id number] CDT!10 Miscellaneous - Conversion, Historical Provider Ser - 03/18/2014 3:18 PM CDT PHQ-9 PHQ-9 Entered On: 03/18/2014 15:18 CDT Performed On: 03/18/2014 15:18 CDT by ELISSA JARAMILLO [facility] PHQ-9 Little interest or pleasure in [...] self : Not at all ELISSA JARAMILLO HAIRMASTERS MANAGER - 03/18/2014 15:18 CDT Source: [facility] CubitoCHART Document Id: [id number] CDT!10 Miscellaneous - Faye Yadav M.D. - 03/17/2014 2:15 PM CDT Normal Results Letter 17 March 2014 ZANDRA MAI [address] [place] [id number] Dear ZANDRA MAI, I am pleased to [...] 0.30 - 4.20 Sincerely, FAYE YADAV [address] [place] [address] Electronic Signature Electronically Signed By: FAYE YADAV MD On: 17 March 2014 This document has images extracted. Source: [facility] POWERCHART Document Id: [id number] Electronically signed by Conversion, [facility] Pararescue Manager [id number] at 04/22/2017 9:43 PM CDT Miscellaneous - Faye Yadav M.D. - 03/17/2014 9:19 AM CDT Ambulatory Patient Summary [facility] [address] [place], [place] [id number] Visit Information Name: ZANDRA MAI [facility] Number: [id number] Current Date: 03/17/2014 09:19:06 Physicians [...] mg, Oral, once a day Routed to [address] [address] aspirin (aspirin 81 mg oral [...] mcg, Oral, once a day Routed to [address] [address] multivitamin with minerals (Multi-Day with [...] Provider 03/17/2014 11:00 RWZU Mammo screening RWZU SD RM 1 Attention: Contact your local Clinic if further appointment detail needed. Your Goals/Additional instructions: Source: [facility] POWERCHART Document Id: [id number] Miscellaneous - Faye Yadav M.D. - 03/17/2014 9:19 AM CDT Ambulatory Discharge Medication List [address] [id number] Visit Information Name: ZANDRA MAI [facility] Number: [id number] Visit Date: 03/17/2014 09:19:04 Attending [...] mg, Oral, once a day Routed to [address] [address] aspirin (aspirin 81 mg oral [...] mcg, Oral, once a day Routed to [address] [address] multivitamin with minerals (Multi-Day with [...] MD Signed On:17-MAR-2014 09:18:55 Additional Information: Source: [facility] CubitoCHART Document Id: [id number] Miscellaneous - Conversion, Historical Provider Ser - 03/17/2014 8:51 AM CDT Adult Data Reviewer Intake/History Adult Data Reviewer Intake/History Entered On: 03/17/2014 8:53 CDT Performed On: 03/17/2014 8:51 CDT by ELISSA JARAMILLO [facility] Intake Chief Complaint : Renew medications, [...] Weight Clinic : 61.4 kg ELISSA JARAMILLO [facility] - 03/17/2014 8:51 CDT General Info Information Given By : Patient Languages : Luxembourgish ELISSA JARAMILLO [facility] - 03/17/2014 8:51 CDT Subjective Pain Symptoms : No ELISSA JARAMILLO CMA - 03/17/2014 8:51 CDT Dependent Habits Tobacco Use/Currently Using : Yes Smoking Status : Current every day smoker ELISSA JARAMILLO [facility] - 03/17/2014 8:51 CDT Tobacco Use Grid Type : Cigarettes Cigarette Use Packs/Day : 1 ELISSA JARAMILLO [facility] - 03/17/2014 8:51 CDT Source: [facility] U-NOTE Document Id: [id number] CDT!27 documented in this encounter Plan of Treatment Upcoming Encounters Date Type Specialty Care Team Description 10/10/2022 Office Visit Neurology Karin Ramachandran M.D., M.P.H. [address] [place] [address] [phone] (Wo rk) documented as of this [...] 1.10 MGDL eGFR >60 >=60 POWERCHART Black/ [id number] Spanish HXeGFR (MDRD) >60 >=60 POWERCHART [id number] Comment: Results are in mL/min/1.73m CKD Stage [...]
--- OUTSIDE RECORDS SUMMARY | 2022-09-21 09:01 | XMS_ITS | Encounter Summary ---
:1960 Author Organization [facility] Address [address] [place] [address] Care Team Providers Name Role Phone Unavailable Primary Care Provider Unavailable Encounter Details Date Type Department Care Team Description 05/04/2014 Hospital Encounter HX [facility] Aurelia Yadav M.D. [address] [place] [address] (Wo rk) Social History Tobacco [...] her throat closing up and wasseen at [place] [facility]. She felt her lips felt funny [...] has had a few reactions like this. [place] ED note and FP discharge paperwork reviewed. [...] been on lisinopril aswas questioned in her [place] ED notes. She is referred to allergy/immunology and is willing to wait until our hospital social worker in [place] is available. Laryngitis: Difficult to tell now [...] YADAV MD On: 05/04/2014 01:21 PM Source: [facility] CareToSaveCHART Document Id: [id number] documented in this encounter Miscellaneous Notes Miscellaneous - Chari Amador R.N. - 10/14/2014 5:00 PM CST Med Management Document Contains Addenda Addendum by FAYE YADAV MD on 15 October 2014 07:43:42 SYSTEM DISPATCHER From: FAYE YADAV MD Sent: 10/15/2014 07:43:42 SYSTEM DISPATCHER Subject: RE:Med Management Approved Order:zolpidem (Ambien CR 6.25 mg oral tablet, extended release) 1 tab(s) PO Bedtime do not crush orchew Qty: 30 tab(s) Refills: 3 Substitutions Allowed PRN Sleep Print - [email or web address] [facility] in [place] fax [phone] Signed by FAYE YADAV MD 10/15/2014 07:43:31 From: CHARI AMADOR RN ( Nurseline/Refill Nurse) To: FAYE YADAV MD; Sent: 10/14/2014 17:00:15 SYSTEM DISPATCHER Subject: Med Management On hold pending signature Order:zolpidem (Ambien CR 6.25 mg oral tablet, extended release) 1 tab(s) PO Bedtime do not crush orchew Qty: 30 tab(s) Refills: 3 Substitutions Allowed PRN Sleep Print - [email or web address] [facility] in [place] fax [phone] REFILL HAS NOT BEEN REVIEWED BY RN REFILL POOL. Source: [facility] POWERCHART Document Id: [id number] Electronically signed by Gabriela, [facility] Educational Psychology Teacher [id number] at 04/23/2017 9:02 PM CDT Miscellaneous - Conversion, Historical Provider Ser - 05/04/2014 2:39 PM CDT General Message Document Contains Addenda Addendum by TAMIKO RICHARD on 07 May 2014 10:55:24 CDT Pt notified, she will stop in next week. From: ELISSA JARMAILLO CMA ([facility] Nurse) To: [facility] Securities Lending Trader; Sent: 05/04/2014 14:39:05 CDT Subject: General Message Please call patient to schedule lab appointment per Dr. Yadav. Patient can come anytime, sooner rather than later she says. Does NOT need to be fasting per Dr. Yadav. Source: [facility] POWERCHART Document Id: [id number] Miscellaneous - Faye Yadav M.D. - 05/04/2014 10:16 AM CDT Ambulatory Patient Summary [address] [id number] Visit Information Name: ZANDRA MAI [facility] Number: [id number] Current Date: 05/04/2014 10:16:39 Physicians [...] appointment detail needed. Your Goals/Additional instructions: Source: [facility] POWERCHART Document Id: [id number] Miscellaneous - Faye Yadav M.D. - 05/04/2014 10:16 AM CDT Ambulatory Discharge Medication List [address] [id number] Visit Information Name: ZANDRA MAI [facility] Number: [id number] Visit Date: 05/04/2014 10:16:38 Attending [...] MD Signed On:04-MAY-2014 10:16:16 Additional Information: Source: [facility] POWERCHART Document Id: [id number] Miscellaneous - Conversion, Historical Provider Ser - 05/04/2014 9:23 AM CDT Adult Conventions Reservationist Intake/History Adult Conventions Reservationist Intake/History Entered On: 05/04/2014 9:25 CDT Performed On: 05/04/2014 9:23 CDT by ELISSA JARAMILLO [facility] Intake Chief Complaint : ER F/U 04/01-- [...] Weight Clinic : 58.6 kg ELISSA JARAMILLO [facility] - 05/04/2014 9:23 CDT General Info Information Given By : Patient Languages : Congolese ELISSA JARAMILLO [facility] - 05/04/2014 9:23 CDT Subjective Pain Symptoms : No ELISSA JARAMILLO [facility] - 05/04/2014 9:23 CDT Dependent Habits Tobacco Use/Currently Using : Yes Exposure to Tobacco Smoke : Patient smokes Smoking Status : Current every day smoker ELISSA JARAMILLO [facility] - 05/04/2014 9:23 CDT Tobacco Use Grid Type : Cigarettes Cigarette Use Packs/Day : 0.5 ELISSA JARAMILLO [facility] - 05/04/2014 9:23 CDT Source: [facility] POWERCHART Document Id: [id number] CDT!30 documented in this encounter Plan of Treatment Upcoming Encounters Date Type Specialty Care Team Description 10/10/2022 Office Visit Neurology Karin Ramachandran M.D., M.P.H. [address] [place] [address] [phone] (Wo rk) documented as of this [...] (05/04/2014 9:55 AM CDT) [email or web address] Method Time Signature HXRapid Strep POWERCHART Confirmation [...] Strep A Screen (05/04/2014 9:55 AM CDT) [employer] Method Time Signature HXStrep A POWERCHART Screen [...]
--- OUTSIDE RECORDS SUMMARY | 2022-09-21 09:01 | XMS_ITS | Encounter Summary ---
:1960 Author Organization [facility] Address [address] [place] [address] Care Team Providers Name Role Phone Unavailable Primary Care Provider Unavailable Encounter Details Date Type Department Care Team Description 05/23/2016 Hospital Encounter [facility]X [facility] Aurelia Yadav M.D. [address] [place] [address] (Wo rk) Social History Tobacco [...] frequency Screening Hepatitis C Once Born Between 2145-8007 due 05/23/16 One-time only Due In Future [...] 20-75 on 10/17/15. Satisfied by CONY RODRIGUEZ [place]([facility]) Screening Colonoscopy or Flex Sig or Occult Blood on 11/14/15. Satisfied by FAYE YADAV MD Screening Diabetes Blood Glucose every 3 years Age 18-70 (Risk Factors) on 10/17/15. Satisfied by CONY RODRIGUEZ [place]([facility]) Screening Mammogram every 1 year Women 40-75 on 02/15/16. Satisfied by BRANNON --ANITA Screening Pap Smear every 3 years Women Age 30-65 on 10/17/15. Satisfied by JAYE BRAY DPAnn Vaccine: Flu every 1 year on 10/03/15. Satisfied by MARCO ANTONIO [facility] REVIEW -3 days of vagintal [...] YADAV MD On: 05/23/2016 01:39 PM Source: [facility] POWERCHART Document Id: [id number] documented in this encounter Miscellaneous Notes Miscellaneous [...] Refills: 1 Substitutions Allowed Route To Pharmacy [facility][id number] Signed by FAYE YADAV MD 02/04/2017 17:12:02 From: MONICA RODRIGUES RN ([facility]/Stephanie Nurse (RN)) To: FAYE YADAV MD; Sent: 02/04/2017 14:52:55 CDT Subject: Med Management SHARON 05/23/16. Scheduled for followup on 03/20/17. Last TSH: TSH: 1.84 10/17/15 On hold pending signature Order:levothyroxine (levothyroxine 88 mcg (0.088 mg) oral tablet) 1 tab(s) PO Daily Qty: 30 tab(s) Refills: 1 Substitutions Allowed Route To [facility][id number] Source: [facility] Coridea Document Id: [id number] Electronically signed by Conversion, [facility] Plaster Tender [id number] at 04/20/2017 6:40 PM CDT Miscellaneous - Conversion, Historical Provider Ser - 12/18/2016 9:01 AM VP OUTCOMES Schedule Follow-Up Visit December 18, 2016 CHIP MAI [address] [place] [id number] Dear CHIP MAI, [facility] would like to better assist you with managing your care. By seeing your primary care team for regular check ups and labs, we can be sure you will get the care you need when you need it. Therefore, our records indicate that you're due for: Blood Pressure Follow Up with Dr. Yadav Please call our appointment desk at [phone] or my direct line at [phone]. Sincerely, ARNAV JEWELL Electronic Signature Electronically Signed By: ARNAV JEWELL On: December 18, 2016 This document has images extracted. Source: [facility] Inversiones.comCHART Document Id: [id number] Miscellaneous - Dylan Painting R.N. - 10/02/2016 1:57 PM CST Med Management Document Contains Addenda Addendum by FAYE YADAV MD on October 03, 2016 11:42:13 VP OUTCOMES From: FAYE YADAV MD Sent: 10/03/2016 11:42:13 VP OUTCOMES Subject: RE:Med Management Approved Order:gabapentin (gabapentin 300 mg oral capsule) 1 cap(s) PO 3xDay Qty: 90 cap(s) Refills: 1 Substitutions Allowed Route To [facility] #[id number] Signed by FAYE YADAV MD 10/03/2016 11:42:05 Approved Order:levothyroxine (levothyroxine 88 mcg (0.088 mg) oral tablet) 88 mcg PO Daily Qty: 30 each Refills: 1 Substitutions Allowed Route To [facility] #[id number] Signed by FAYE YADAV MD 10/03/2016 11:42:04 Addendum by JUNIE LOPEZ RN on October 03, 2016 08:35:46 VP OUTCOMES From: JUNIE LOPEZ RN ( [place]/Stephanie Nurse (RN)) To: FAYE YADAV MD; Sent: 10/03/2016 08:35:46 VP OUTCOMES Subject: Med Management Please advise per BELL msg below. All other medications that pt is requesting have remaining refills left at pharmacy. Thank you. On hold pending signature Order:levothyroxine (levothyroxine 88 mcg (0.088 mg) oral tablet) 88 mcg PO Daily Qty: 30 each Refills: 1 Substitutions Allowed Route To [facility] #[id number] On hold pending signature Order:gabapentin (gabapentin 300 mg oral capsule) 1 cap(s) PO 3xDay Qty: 90 cap(s) Refills: 1 Substitutions Allowed Route To [facility][id number] Addendum by SHENG WHYTE on October 03, 2016 08:19:25 VP OUTCOMES From: SHENG WHYTE ([facility] Solutions Analyst) To: TIO Arevalo Nurse (RN); Sent: 10/03/2016 08:19:25 VP OUTCOMES Subject: FW: Med Management spoke with pt and she is scheduled for 11/14/[address] Yadav. please ensure she will have enoughrefills on all of her meds (BP, thyroid, abdirahman, Vit B.) please send all refills to [facility] in [place]. Addendum by JUNIE LOPEZ RN on October 02, 2016 14:08:03 VP OUTCOMES From: JUNIE LOPEZ RN ([facility] [place]/Stephanie Nurse (RN)) To: Stephanie Solutions Analyst; Sent: 10/02/2016 14:08:03 VP OUTCOMES Subject: FW: Med Management Please call and assist in scheduling pt or send second letter per msg below from Dr. Yadav, thank you! Addendum by FAYE YADAV MD on October 02, 2016 14:07:22 VP OUTCOMES From: FAYE YADAV MD To: TIO Arevalo Nurse (RN); Sent: 10/02/2016 14:07:22 VP OUTCOMES Subject: RE: Med Management Addendum by FAYE YADAV MD on October 02, 2016 14:07:20 VP OUTCOMES Approved Order:gabapentin (gabapentin 300 mg oral capsule) 1 cap(s) PO 3xDay Qty: 45 cap(s) Refills: 0 Substitutions Allowed Route To Pharmacy - [facility] #[id number] Signed by FAYE YADAV MD 10/02/2016 14:07:16 needs to make f/u appt for further refills. Please sent second letter. From: DYLAN PAINTING RN ([facility] [place]/Stephanie Nurse (RN)) To: FAYE YADAV MD; Sent: 10/02/2016 13:57:15 VP OUTCOMES Subject: Med Management On hold pending signature Order:gabapentin (gabapentin 300 mg oral capsule) 1 cap(s) PO 3xDay Qty: 45 cap(s) Refills: 0 Substitutions Allowed Route To Pharmacy - [facility] #[id number] Patient overdue for appointment. Letter sent on 07/27/2016; patient called on 08/08/2016. No follow up appointment made Please review and recommend Two weeks pended Source: [facility] POWERCHART Document Id: [id number] Electronically signed by Conversion, [facility] Plaster Tender [id number] at 04/20/2017 6:40 PM CDT Telephone Encounter - Conversion, Historical Provider Ser - 08/08/2016 2:13 PM CDT *Phone Message Document Contains Addenda Addendum by RICHARD MORRISON on August 08, 2016 14:28:31 CDT done Addendum by MONICA RODRIGUES RN on August 08, 2016 14:21:32 CDT From: MONICA RODRIGUES RN ([facility] [place]/Stephanie Nurse (RN)) To: TIO Brown Solutions Analyst; Sent: 08/08/2016 14:21:32 CDT Subject: FW: *Phone [...] this time. From: RICHARD MORRISON ([employer] Analyst) To: [facility] [place]/Stephanie Nurse (RN); Sent: 08/08/2016 [...] ([facility] [place]/Stephanie Nurse (RN)) To: TIO [employer] Solutions Analyst; Sent: 07/26/2016 12:19:26 CDT Subject: FW: Med [...] 0 Substitutions Allowed Route To Pharmacy - [facility] #[id number] Signed by FAYE YADAV MD 07/26/2016 12:16:42 [...] 0 Substitutions Allowed Route To Pharmacy - [facility] #[id number] Source: [facility] POWERCHART Document Id: [id number] Miscellaneous - Conversion, Historical Provider Ser - 07/27/2016 9:14 AM CDT Schedule Follow-Up Visit July 27, 2016 CHIP MAI [address] [place] [id number] Dear CHIP MAI, Our records indicate that you are due for a follow up appointment with Dr. Yadav. Please call us to make an appointment at your convenience. Our telephone number for scheduling an appointment is [phone]. Your health is important to us. If you have already made an appointment for this or have had the procedure done, please disregard this notice. Sincerely, RICHARD MORRISON Electronic Signature Electronically Signed By: RICHARD MORRISON On: July 27, 2016 This document has images extracted. Source: [facility] POWERCHART Document Id: [id number] Miscellaneous - Junie Lopez R.N. - 07/26/2016 11:48 AM CDT Med Management Document Contains Addenda Addendum by RICHARD MORRISON on July 27, 2016 09:14:29 CDT Appt letter mailed to pt Addendum by MONICA RODRIGUES RN on July 26, 2016 12:19:26 CDT From: MONICA RODRIGUES RN ([facility] [place]/Stephanie Nurse (RN)) To: TIO Brown Solutions Analyst; Sent: 07/26/2016 12:19:26 CDT Subject: FW: Med [...] 0 Substitutions Allowed Route To Pharmacy - [facility] #[id number] Signed by FAYE YADAV MD 07/26/2016 12:16:42 [...] 0 Substitutions Allowed Route To Pharmacy - [facility] #[id number] Source: [facility] [employer] Document Id: [id number] Electronically signed by Conversion, [facility] Plaster Tender [id number] at 04/20/2017 6:40 PM CDT Miscellaneous - Jesenia Dong C.M.A. - 07/17/2016 5:57 PM CDT *General Message Document Contains Addenda Addendum by JESENIA DONG CMA on July 18, 2016 10:18:50 CDT Spoke with patient and informed her of message below. Patient has already made an appt to be seen in [place]. Addendum by FAYE YADAV MD on July 18, 2016 07:27:47 CDT From: FAYE YADAV MD To: [facility] Nurse (TABITHA/MEÑO); Sent: 07/18/2016 07:27:47 CDT Subject: [...] you at next appt. Please advise. Source: [employer] Document Id: [id number] Electronically signed by Conversion, [facility] Plaster Tender [id number] at 04/20/2017 6:40 PM CDT Miscellaneous - Faye Yadav M.D. - 05/23/2016 1:40 PM CDT Ambulatory Patient Summary [address] [id number] Visit Information Name: CHIP MAI [facility] Number: [id number] Current Date: 05/23/2016 13:40:26 [...] Oral, once a day New Routed to [address] [address] aspirin (aspirin 81 mg oral delayed release [...] if you dont have one. Go to [email or web address] and click on Create Your Account. Then, follow the directions to complete the online form. Youll be asked for your [facility] number which you can find at the top of this document. Your Goals/Additional instructions: Source: [facility] POWERCHART Document Id: [id number] Miscellaneous - Faye Yadav M.D. - 05/23/2016 1:40 PM CDT Ambulatory Discharge Medication List [address] [id number] Visit Information Name: CHIP MAI [facility] Number: [id number] Visit Date: 05/23/2016 13:40:25 [...] Oral, once a day New Routed to [place] [id number] [address] aspirin (aspirin 81 mg oral [...] MD Signed On:23-MAY-2016 13:40:21 Additional Information: Source: [facility] POWERCHART Document Id: [id number] Miscellaneous - Faye Yadav M.D. - 05/23/2016 [...] (*) Present (None Seen - ) Source: [facility] [employer] Document Id: [id number] Miscellaneous - Demetrio Hughes L.P.N. - 05/23/2016 8:48 AM CDT Adult Wash Barrel Leader Intake/History Adult Wash Barrel Leader Intake/History Entered On: 05/23/2016 8:52 CDT Performed [...] Information Given By : Patient Languages : Thai Is Patient Female and 13-50 no hysterectomy [...] HUGHES LPN - 05/23/2016 8:48 CDT Source: [facility] Document Id: [id number] CDT!37 documented in this encounter Plan of Treatment Upcoming Encounters Date Type Specialty Care Team Description 10/10/2022 Office Visit Neurology Karin Ramachandran M.D., M.P.H. [address] [place] [phone] (Wo rk) documented as of this encounter Procedures Procedure Name Priority Date/Time Associated Diagnosis Comme nts URINALYSIS, Routine 05/23/2016 9:08 AM Results f or this MIDSTREAM, WITH CDT procedure ar e in CULTURE IF the results INDICATED section. documented in this encounter Results (ABNORMAL) Urinalysis, Midstream, with culture if indicated (05/23/2016 9:08 AM CDT) [facility] gist Method Time Signature Clarity Clear Clear POWERCHART HXUr Color Yellow Colorless POWERCHART Glucose Negative Negative POWERCHART MGDL HXBILIRUBIN Negative Negative POWERCHART Ketones, QL(U) Negative Negative POWERCHART MGDL Specific 1.010 POWERCHART [employer], POCT, U HXBLOOD Negative Negative POWERCHART pH, [...] First 05/23/2016 9:08 AM Voided CDT Faye Yadav M.D. LAB URINE ORDERABLES Performing Organization Address City/State/ZIP Code Phon e Number POWERCHART documented in this encounter Visit Diagnoses Not on filedocumented in this encounter Additional Health Concerns Assessment Noted Time PHQ-9 Depression Total Score: 5 05/01/2016 10:23 AM CD T documented as of this encounter
--- OUTSIDE RECORDS SUMMARY | 2022-09-21 09:01 | XMS_ITS | Encounter Summary ---
:1960 Author Organization [facility] Address [address] [place] [address] Care Team Providers Name Role Phone Unavailable Primary Care Provider Unavailable Encounter Details Date Type Department Care Team Description 05/01/2016 Hospital Encounter HX [facility] Aurelia Yadav M.D. [address] [place] [address] (Wo rk) Social History Tobacco [...] frequency Screening Hepatitis C Once Born Between 9414-6240 due 05/01/16 One-time only Vaccine: Pneumococcal 23-Valent [...] months on 10/17/15. Satisfied by MAMI SALDAÑA [facility] Health Assessment every 1 year on 10/17/15. Satisfied by M[facility] Lipid Panel every 5 years Age 20-75 on 10/17/15. Satisfied by CONY RODRIGUEZ [place]([facility]) Screening Colonoscopy or Flex Sig or Occult Blood on 11/14/15. Satisfied by FAYE YADAV MD Screening Diabetes Blood Glucose every 3 years Age 18-70 (Risk Factors) on 10/17/15. Satisfied by CONY RODRIGUEZ MT([facility]) Screening Mammogram every 1 year Women 40-75 on 02/15/16. Satisfied by ANITA TORREZ Screening Pap Smear every 3 years Women Age 30-65 on 10/17/15. Satisfied by JAYE BRAY DPAnn Vaccine: Flu every 1 year on 10/03/15. Satisfied by MARCO ANTONIO RANDLE [employer] REVIEW Weight down 3kg in 6 [...] # 20 tab(s), 0 Refill(s), Acute, Pharmacy: [facility] #[id number] Benign Essential Hypertension Higher than normal today, but in light of acute illness, will not change regimen. Recheck in 3 weeks. Ordered: doxycycline, 100 mg = 1 tab(s), PO, 2xDay, x 10 day(s), # 20 tab(s), 0 Refill(s), Acute, Pharmacy: [facility] #[id number] Bronchitis Acute Due to [...] # 20 tab(s), 0 Refill(s), Acute, Pharmacy: [facility][id number] Loss Weight Advised to [...] # 20 tab(s), 0 Refill(s), Acute, Pharmacy: [facility][id number] Orders: Comprehensive Metabolic Panel Return Visit Internal Med - Extended Return Visit Internal Med - Extended I spent more than 20 minutes of this 30 minute appointment in counseling on management of lung disease, alcohol abuse, and tobacco cessation. Electronically Signed By: FAYE YADAV MD On: 05/01/2016 10:00 AM Source: [facility] POWERCHART Document Id: [id number] documented in this encounter Miscellaneous Notes Miscellaneous [...] 1 Substitutions Allowed Route To Pharmacy - [facility] #[id number] Signed by FAYE YADAV MD 08/07/2017 07:54:16 [...] 0 Substitutions Allowed Route To Pharmacy - [facility][id number] Source: [facility] POWERCHART Document Id: [id number] Telephone Encounter - Monica Rodrigues R.N. - [...] so. I did also provide daughter with [facility] number to talk to someone about other [...] number ( x )José Miguel's number, Source: [facility] POWERCHART Document Id: [id number] Miscellaneous - Faye Yadav M.D. - 05/02/2016 5:46 PM CDT Normal Results Letter May 02, 2016 CHIP MAI [id number] [address] [id number] Dear CHIP MAI, I am pleased to [...] Chest 2 Views 05/01/2016 Sincerely, FAYE YADAV [facility] [place] [address] Electronic Signature Electronically Signed By: FAYE YADAV MD On: May 02, 2016 This document has images extracted. Source: [facility] POWERCHART Document Id: [id number] Telephone Encounter - Diogenes Ireland C.MLaw - 05/01/2016 4:44 PM CDT *Phone Message Document Contains Addenda Addendum by MAMI SALDAÑA CMA on May 02, 2016 08:17:05 CDT Patient notified of x-ray results, voiced understanding and no further questions at this time Addendum by FAYE YADAV MD on May 01, 2016 17:20:30 CDT From: FAYE YADAV MD To: [facility] Nurse (SEISMIC PLOTTER/MEÑO); Sent: 05/01/2016 17:20:30 CDT Subject: RE: *Phone Message Please let her know CXR was read as normal! I will send lab results in a letter. From: DIOGENES IRELAND CMA ([facility] Nurse ([facility])) To: FAYE YADAV MD; Sent: 05/01/2016 16:44:42 CDT Subject: *Phone Message Caller is: ( ) Patient ( ) Mother ( ) Father ( ) Spouse ( ) Daughter ( ) Son ( ) Pharmacy ( ) Other: Physician: Patient MRN #: Reason for Call: Pt wondering about xray results from this morning. [phone] Message: Advice/Action: Source used: ( ) Verbalizes [...] back cell phone number ( ) Source: [facility] POWERCHART Document Id: [id number] Miscellaneous - Mami Saldaña C.M.A. - 05/01/2016 10:23 AM CDT PHQ-9 PHQ-9 Entered On: 05/01/2016 10:24 CDT Performed On: 05/01/2016 10:23 CDT by [facility] PHQ-9 Little interest or pleasure in [...] : Not difficult at all [facility] - 05/01/2016 10:23 CDT Source: [facility] POWERCHART Document Id: [id number] CDT!13 Nancycellpepper - Faye Yadav M.D. - 05/01/2016 10:01 AM CDT Ambulatory Patient Summary [address] [id number] Visit Information Name: CHIP MAI [facility] Number: [id number] Current Date: 05/01/2016 10:01:32 [...] day x 10 day(s) New Routed to [address] [address] EPINEPHrine (EpiPen 2-Reg 0.3 mg [...] Appointments Date Time Location Provider 05/23/2016 08:45 [facility] Faye Yadav MD Attention: Contact [...] if you dont have one. Go to [email or web address] and click on Create Your Account. Then, follow the directions to complete the online form. Youll be asked for your [facility] number which you can find at the top of this document. Your Goals/Additional instructions: Source: [facility] POWERCHART Document Id: [id number] Miscellaneous - Faye Yadav M.D. - 05/01/2016 10:01 AM CDT Ambulatory Discharge Medication List [address] [id number] Visit Information Name: CHIP MAI [facility] Number: [id number] Visit Date: 05/01/2016 10:01:30 [...] day x 10 day(s) New Routed to [place] [id number] [address] EPINEPHrine (EpiPen 2-Reg 0.3 mg [...] MD Signed On:01-MAY-2016 10:01:24 Additional Information: Source: [facility] POWERCHART Document Id: [id number] Miscellaneous - Mami Saldaña, C.M.A. - 05/01/2016 8:45 AM CDT [facility] Eligibility [facility] Eligibility Entered On: 05/01/2016 8:45 CDT Performed On: 05/01/2016 8:45 CDT by MAMI SALDAÑA CMA [facility] Eligibility Provided [facility] eligibility information : No MAMI SALDAÑA CMA - 05/01/2016 8:45 CDT Source: BTR Document Id: [id number] CDT!3 Miscellaneous - Mami Saldaña C.MLaw - 05/01/2016 8:21 AM CDT Adult Barrel Marker Intake/History Adult Barrel Marker Intake/History Entered On: 05/01/2016 8:22 CDT Performed [...] Information Given By : Patient Languages : Kazakh Is Patient Female and 13-50 no hysterectomy [...] SALDAÑA CMA - 05/01/2016 8:21 CDT Source: BTR Document Id: [id number] CDT!34 documented in this encounter Plan of Treatment Upcoming Encounters Date Type Specialty Care Team Description 10/10/2022 Office Visit Neurology Karin Ramachandran M.D., M.P.H. [address] [phone] (Wo rk) documented as of this encounter Procedures Procedure Name Priority Date/Time Associated Comments Diagnosis COMPREHENSIVE Routine 05/01/2016 7:37 AM Results for this METABOLIC PANEL, S/P CDT procedu re are in the results section. documented in this encounter Results (ABNORMAL) CMP (Comprehensive Metabolic Panel) (05/01/2016 7:37 AM CDT) [facility] gist Method Time Signature Alanine 21 7 [...] POWERCHART MGDL eGFR Black/ >60 >=60 POWERCHART Fijian [id number] 2 HXeGFR (MDRD) >60 >=60 POWERCHART [id number] 2 Comment: Results are in mL/min/1.73m CKD [...]
--- OUTSIDE RECORDS SUMMARY | 2022-09-21 09:01 | XMS_ITS | Encounter Summary ---
:1960 Author Organization [facility] Address [address] [place] [address] Care Team Providers Name Role Phone Unavailable Primary Care Provider Unavailable Encounter Details Date Type Department Care Team Description 02/15/2016 Hospital Encounter HX [facility] MAMMO-Aurelia Wood M.D. [address] [place] [address] (Wo rk) Social History Tobacco [...] Coding Summary-Paper Based CODING DATE: 02/21/2016 FINAL [facility] STATUS: * Discharged to Home or [...] ROSARIO Date Saved: 02/21/2016 08:22 am Source: [facility] Document Id: [id number] documented in this encounter Plan of Treatment Upcoming Encounters Date Type Specialty Care Team Description 10/10/2022 Office Visit Neurology Karin Ramachandran M.D., M.P.H. [address] [phone] (Wo rk) documented as of this encounter Visit Diagnoses Not on filedocumented in this encounter Additional Health Concerns Assessment Noted Time PHQ-9 Depression Total Score: 10 10/17/2015 9:46 AM CS T documented as of this encounter
--- OUTSIDE RECORDS SUMMARY | 2022-09-21 09:01 | XMS_ITS | Encounter Summary ---
:1960 Author Organization [facility] Address [address] [place] [address] Care Team Providers Name Role Phone Unavailable Primary Care Provider Unavailable Encounter Details Date Type Department Care Team Description 03/27/[address] [facility] Abelardo Herzog M.D. [address] [place], [place] [phone] (Wo rk) Social History [...] VALENCIA(R)(CT), R.TEvans(R) - 03/27/2016 7:42 CDT Source: [employer] Document Id: [id number] CDT!14 documented in this encounter Miscellaneous Notes [...] She will reschedule 04/10 appt to go [facility] CXR.Transferred to scheduling. Addendum by FAYE YADAV MD on April 03, 2016 11:08:23 CDT From: FAYE YADAV MD To: [facility] Nurse (TABITHA/MEÑO); TIO Brown Dumpcart Driver; Sent: 04/03/2016 11:08:23 CDT Show up: 04/03/2016 [...] cough, 40 pack years, hyponatremia 27-Mar-2016 09:33 [facility] EXAM: CT scan of the Chest with [...] 9:[address] Chest w/ contrast Source: [employer] Document Id: [id number] Miscellaneous - Conversion, Historical Provider Ser - 03/27/2016 11:59 PM CDT Coding Summary-Paper Based CODING DATE: 04/06/2016 FINAL [facility] STATUS: * Discharged to Home [...] ROSARIO Date Saved: 04/06/2016 09:41 am Source: [employer] Document Id: [id number] documented in this encounter Plan of Treatment Upcoming Encounters Date Type Specialty Care Team Description 10/10/2022 Office Visit Neurology Karin Ramachandran M.D., M.P.H. [address] [phone] (Wo rk) documented as of this encounter Visit Diagnoses Not on filedocumented in this encounter Additional Health Concerns Assessment Noted Time PHQ-9 Depression Total Score: 10 10/17/2015 9:46 AM CS T documented as of this encounter
--- OUTSIDE RECORDS SUMMARY | 2022-09-21 09:01 | XMS_ITS | Encounter Summary ---
:1960 Author Organization [facility] Address [address] [place] [address] Care Team Providers Name Role Phone Unavailable Primary Care Provider Unavailable Encounter Details Date Type Department Care Team Description 08/07/2013 Hospital Encounter HX [facility] Aurelia Núñez M.D. [address] [place] [address] (Wo rk) Social History Tobacco Use Types Packs/Day Years Used Date Smoking Tobacco: Never Assessed Sex Assigned at Date Recorded Female 07/10/2022 7:32 AM CDT documented as of this encounter Miscellaneous Notes Telephone Encounter - Conversion, Historical Provider Ser - 08/07/2013 12:00 AM CDT [id number] Last visit: BP Readings from Last 1 Encounters: 01/07/13 123/81 Out of thyroid medication, few left of blood pressure and ambien medication [phone] Source[facility] Document Id: [id number] documented in this encounter Plan of Treatment Upcoming Encounters Date Type Specialty Care Team Description 10/10/2022 Office Visit Neurology Karin Ramachandran M.D., M.P.H. [address], [place] [phone] (Wo rk) documented as of this encounter Visit Diagnoses Not on filedocumented in this encounter
--- OUTSIDE RECORDS SUMMARY | 2022-09-21 09:01 | XMS_ITS | Encounter Summary ---
:1960 Author Organization [facility] Address [address] [place] [address] Care Team Providers Name Role Phone Unavailable Primary Care Provider Unavailable Encounter Details Date Type Department Care Team Description 01/07/2013 Hospital Encounter HX [facility] Aurelia Fernández M.D. [address] [place] [address] (Wo rk) Social History Tobacco Use Types Packs/Day Years Used Date Smoking Tobacco: Never Assessed Sex Assigned at Date Recorded Female 07/10/2022 7:32 AM CDT documented as of this encounter Miscellaneous Notes Telephone Encounter - Conversion, Historical Provider Ser - 01/07/2013 12:00 AM CST [id number] Last visit: BP Readings from Last 1 Encounters: 01/07/13 123/81 [facility] Document Id: [id number] Telephone Encounter - Cora Jack R.N. 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 Please clarify. CAD/HTN and/or CHF labs: CR 0.70 11/26/2011 POTASSIUM 5.0 11/26/2011 TSH 4.39 11/26/2011 Source: [facility] Document Id: [id number] Electronically signed by Conversion, [facility] Seafood Manager [id number] at 04/22/2017 12:53 PM CDT documented in this encounter Plan of Treatment Upcoming Encounters Date Type Specialty Care Team Description 10/10/2022 Office Visit Neurology Karin Ramachandran M.D., M.P.H. [address] [phone] (Wo rk) documented as of this encounter Visit Diagnoses Not on filedocumented in this encounter
--- OUTSIDE RECORDS SUMMARY | 2022-09-21 09:01 | XMS_ITS | Encounter Summary ---
:1960 Author Organization [facility] Address [address] [place] [address] Care Team Providers Name Role Phone Unavailable Primary Care Provider Unavailable Encounter Details Date Type Department Care Team Description 03/17/2014 Hospital Encounter HX [facility] TIO Esvin Ca M.D. [address] [place], [place] [phone] (Wo rk) Social History [...] AM CDT General Message From: MAMI SALDAÑA TOOLING SUPERVISOR ([facility] Nurse) Sent: 04/05/2014 10:13:43 CDT Subject: General Message Prior Auth approval received for patients Zolpiden ER tab 6.25. Approval valid from 03/25/2014 to 03/25/2015 See scanned form Source: [facility] POWERCHART Document Id: [id number] Electronically signed by Conversion, [facility] Caster [employer]ing [id number] at 04/22/2017 9:43 PM CDT documented in this encounter Plan of Treatment Upcoming Encounters Date Type Specialty Care Team Description 10/10/2022 Office Visit Neurology Karin Ramachandran M.D., M.P.H. [address] [place] [phone] (Wo rk) documented as of this encounter Visit Diagnoses Not on filedocumented in this encounter
--- OUTSIDE RECORDS SUMMARY | 2022-09-21 09:01 | XMS_ITS | Encounter Summary ---
:1960 Author Organization [facility] Address [address] [place] [address] Care Team Providers Name Role Phone Unavailable [...] Neurology Karin Ramachandran M.D., M.P.H. [address] [place] [phone] (Wo rk) documented as of [...] POCT, Urine (lab) (03/11/2016 8:52 AM CDT) [facility] Method Time Signature Ketone, POCT, 1+ (A) Negative [facility] Specific 1.020 1.001 - [facility] [place]va, 1.035 LABORATORIES - POCT, [facility] Blood, POCT, Negative Negative [facility] pH, POCT, 6.0 5.0 - 8.0 [facility] Urine [facility] Nitrites, Negative Negative [facility] POCT, [facility] Leukocytes, Negative Negative [facility] POCT, [facility] Glucose, Negative Negative [facility] POCT, [facility] Bilirubin, Negative Negative [facility] POCT, [facility] Protein, Trace (A) Negative [facility] POCT, [facility] Urobilinogen, 0.2 0.2 - 1.0 [facility] POCT, Urine [facility] Specimen Anatomical Collection Method Collection Time Receive d Time (Source) Location / / Volume Laterality 03/11/2016 8:52 AM 6 8:52 CDT AM CDT Historical Provider LAB POCT ORDERABLES - DEVICE Performing Organization Address City/State/ZIP Code Phon e Number [facility] LABORATORIES - [address] [place] [phone] [facility] (ABNORMAL) CBC with Differential (03/11/2016 8:51 AM CDT) [facility] Method Time Signature Hemoglobin 12.6 12.0 - [facility] 15.5 G/DL LABORATORIES - [facility] Hematocrit 36.9 34.9 - [facility] 44.5 % LABORATORIES - [facility] Leukocytes 13.1 (H) 3.5 - [facility] 10.5 LABORATORIES - X10(9)/L [facility] Neutrophils 11.25 (H) 1.70 - [facility] 7.00 LABORATORIES - X10(9)/L [facility] Erythrocytes 3.56 (L) 3.90 - [facility] 5.03 LABORATORIES - X10(12)/L [facility] MCV 103.7 (H) 81.6 - [facility] 98.3 FL LABORATORIES - [facility] RBC Distrib 13.4 11.9 - [facility] Width 15.5 % LABORATORIES - [facility] Platelet Count 257 150 - 450 [facility] X10(9)/L LABORATORIES - [facility] Lymphocytes 0.49 (L) 0.90 - [facility] 2.90 LABORATORIES - X10(9)/L [facility] Monocytes 1.28 (H) 0.30 - [facility] 0.90 LABORATORIES - X10(9)/L [facility] Eosinophils 0.03 (L) 0.05 - [facility] 0.50 LABORATORIES - X10(9)/L [facility] Basophils 0.03 0.00 - [facility] 0.30 LABORATORIES - X10(9)/L [facility] Specimen Anatomical Collection Method Collection Time Receive d Time (Source) Location / / Volume Laterality 03/11/2016 8:51 AM 6 8:51 CDT AM CDT Joshua Shine M.D. LAB BLOOD ADD-ON Performing Organization Address City/[facility]/ZIP Code Phon e Number [facility] LABORATORIES - [address] [place], [place] [address] [facility] (ABNORMAL) BMP (Basic Metabolic Panel) (03/11/2016 8:51 AM CDT) Patholo gist Method Time Signature Sodium, P 134 (L) 135 - 145 [facility] MMOL/L LABORATORIES - [facility] Potassium, P 3.7 3.6 - 5.2 [facility] MMOL/L LABORATORIES - [facility] eGFR >60 >60 [facility] Non-Black/Afric ML/MIN/BS LABORATORIES - an [place] A [facility] eGFR-Black/Afri >60 >60 [facility] can [place] ML/MIN/BS LABORATORIES - A [facility] Chloride, S 94 (L) 98 - 107 [facility] MMOL/L LABORATORIES - [facility] Creatinine 0.5 (L) 0.6 - 1.1 [facility] MG/DL LABORATORIES - [facility] BUN (Blood Urea 7 6 - 21 [facility] Nitrogen), S MG/DL LABORATORIES - [facility] HX Bicarbonate, 21 (L) 22 - 29 [facility] P/S MMOL/L LABORATORIES - [facility] Glucose, S 105 70 - 140 [facility] MG/DL LABORATORIES - [facility] Anion Gap 19 (H) 7 - 15 [facility] LABORATORIES [facility] Specimen Anatomical Collection Method Collection Time Receive d Time (Source) Location / / Volume Laterality 03/11/2016 8:51 AM 6 8:51 CDT AM CDT Joshua Shine M.D. LAB BLOOD ADD-ON Performing Organization Address City/[facility] Phon e Number [facility] LABORATORIES - [address] Thiamine (Vitamin B1), Whole Blood (03/11/2016 8:50 AM CDT) P athologist Signature Thiamine 125 70 - 180 [facility] (Vitamin B1), NMOL/L LABORATORIES - WB [facility] Specimen Anatomical Collection Method Collection Time Receive d Time (Source) Location / / Volume Laterality 03/11/2016 8:50 AM 6 8:50 CDT AM CDT Joshua Shine M.D. LAB BLOOD NON ADD-ON Performing Organization Address City/[facility] Phon e Number [facility] LABORATORIES - [address] [phone] 05 [facility] Lactate (03/11/2016 8:50 AM CDT) P athologist Signature Lactate, P 0.8 0.6 - 2.3 [facility] MMOL/L LABORATORIES - [facility] Specimen Anatomical Collection Method Collection Time Receive d Time (Source) Location / / Volume Laterality 03/11/2016 8:50 AM 6 8:50 CDT AM CDT Joshua Shine M.D. LAB BLOOD NON ADD-ON Performing Organization Address City/[facility]/ZIP Code Phon e Number [facility] LABORATORIES - [address] [place] [phone] [facility] (ABNORMAL) Magnesium (03/11/2016 5:55 AM CDT) Analysis Performed At Path logist Time Signature Magnesium, S 1.5 (L) 1.7 - 2.3 [facility] MG/DL LABORATORIES - [facility] Specimen Anatomical Collection Method Collection Time Receive d Time (Source) Location / / Volume Laterality 03/11/2016 5:55 AM 6 5:55 CDT AM CDT Jennifer Almanzar M.D. LAB BLOOD ADD-ON Performing Organization Address City/[facility]/ZIP Code Phon e Number [facility] LABORATORIES - [address] [place], [place] [address] [facility] (ABNORMAL) Calcium, Total (03/11/2016 5:55 AM CDT) [facility] gist Method Time Signature Calcium, 10.5 (H) 8.9 - [facility] Total, S 10.1 LABORATORIES - MG/DL [facility] Specimen Anatomical Collection Method Collection Time Receive d Time (Source) Location / / Volume Laterality 03/11/2016 5:55 AM 6 5:55 CDT AM CDT Jennifer Almanzar M.D. LAB BLOOD ADD-ON Performing Organization Address City/[facility]/ZIP Code Phon e Number [facility] LABORATORIES - [address] [place], [place] [address] [facility] (ABNORMAL) CBC with Differential (03/11/2016 5:55 AM CDT) [facility] gist Method Time Signature Hemoglobin 13.2 12.0 - [facility] 15.5 G/DL [facility] Hematocrit 37.2 34.9 - [facility] 44.5 % [facility] RBC Distrib 12.9 11.9 - [facility] Width 15.5 % [facility] Platelet Count 264 150 - 450 [facility] X10(9)/L [facility] Leukocytes 12.9 (H) 3.5 - [facility] 10.5 LABORATORIES - X10(9)/L [facility] Neutrophils 11.06 (H) 1.70 - [facility] 7.00 LABORATORIES - X10(9)/L [facility] Lymphocytes 0.52 (L) 0.90 - [facility] 2.90 LABORATORIES - X10(9)/L [facility] Monocytes 1.21 (H) 0.30 - [facility] 0.90 LABORATORIES - X10(9)/L [facility] Eosinophils 0.09 0.05 - [facility] 0.50 LABORATORIES - X10(9)/L [facility] Basophils 0.02 0.00 - [facility] 0.30 LABORATORIES - X10(9)/L [facility] Erythrocytes 3.65 (L) 3.90 - [facility] 5.03 LABORATORIES - X10(12)/L [facility] MCV 101.9 (H) 81.6 - [facility] 98.3 FL LABORATORIES - [facility] Specimen Anatomical Collection Method Collection Time Receive d Time (Source) Location / / Volume Laterality 03/11/2016 5:55 AM 6 5:55 CDT AM CDT Isreal Vaca M.D. LAB BLOOD ADD-ON Performing Organization Address City/[facility] Code Phon e Number [facility] LABORATORIES - [address] [phone] [facility] Ethanol Level, Serum (03/11/2016 5:55 AM CDT) athologist Signature Ethanol, S <10 <10 MG/DL [facility] Specimen Anatomical Collection Method Collection Time Receive d Time (Source) Location / / Volume Laterality 03/11/2016 5:55 AM 6 5:55 CDT AM CDT Isreal Vaca M.D. LAB BLOOD NON ADD-ON Performing Organization Address City/[facility] Code Phon e Number [facility] LABORATORIES - [address] [phone] [facility] (ABNORMAL) BMP (Basic Metabolic Panel) (03/11/2016 5:55 AM CDT) Patholo gist Method Time Signature Sodium, P 129 (L) 135 - 145 [facility] MMOL/L LABORATORIES [facility] Potassium, P 4.1 3.6 - 5.2 [facility] MMOL/L LABORATORIES - [facility] BUN (Blood Urea 7 6 - 21 [facility] Nitrogen), S MG/DL LABORATORIES - [facility] HX Bicarbonate, 25 22 - 29 [facility] P/S MMOL/L LABORATORIES - [facility] Chloride, S 88 (L) 98 - 107 [facility] MMOL/L LABORATORIES - [facility] Creatinine 0.6 0.6 - 1.1 [facility] MG/DL LABORATORIES - [facility] eGFR >60 >60 [facility] Non-Black/Afric ML/MIN/BS LABORATORIES - an [place] A [facility] eGFR-Black/Afri >60 >60 [facility] can [place] ML/MIN/BS LABORATORIES - [facility] Glucose, S 111 70 - 140 [facility] MG/DL LABORATORIES - [facility] Anion Gap 16 (H) 7 - 15 [facility] LABORATORIES - [facility] Specimen Anatomical Collection Method Collection Time Receive d Time (Source) Location / / Volume Laterality 03/11/2016 5:55 AM 6 5:55 CDT AM CDT Isreal Vaca M.D. LAB BLOOD ADD-ON Performing Organization Address City/[facility]/ZIP Code Phon e Number [facility] LABORATORIES - [address] [place] [phone] [facility] Lactate (03/11/2016 5:55 AM CDT) P athologist Signature Lactate, P 1.3 0.6 - 2.3 [facility] MMOL/L LABORATORIES - [facility] Specimen Anatomical Collection Method Collection Time Receive d Time (Source) Location / / Volume Laterality 03/11/2016 5:55 AM 6 5:55 CDT AM CDT Isreal Vaca M.D. LAB BLOOD NON ADD-ON Performing Organization Address City/[facility] Phon e Number [facility] LABORATORIES - [address] [place], [place] [address] [facility] (ABNORMAL) CK (Creatine Kinase) (03/11/2016 5:55 AM CDT) Patholo gist Method Time Signature Creatine 560 (H) 38 - 176 [facility] Kinase (CK), S U/L LABORATORIES [facility] Specimen Anatomical Collection Method Collection Time Receive d Time (Source) Location / / Volume Laterality 03/11/2016 5:55 AM 6 5:55 CDT AM CDT Isreal Vaca M.D. LAB BLOOD ADD-ON Performing Organization Address City/State/ZIP Code Phon e Number [facility] LABORATORIES - [address] [place], [place] [address] [facility] documented in this encounter Visit Diagnoses Not on filedocumented in this encounter Additional Health Concerns Assessment Noted Time PHQ-9 Depression Total Score: 10 10/17/2015 9:46 AM CS T documented as of this encounter
--- OUTSIDE RECORDS SUMMARY | 2022-09-21 09:01 | XMS_ITS | Encounter Summary ---
:1960 Author Organization [facility] Address [address] [place] [address] Care Team Providers Name Role Phone Unavailable Primary Care Provider Unavailable Encounter Details Date Type Department Care Team Description 01/07/2013 Hospital Encounter HX [facility] Provider, [facility] Social History Tobacco Use Types Packs/Day Years Used Date Smoking Tobacco: Never Assessed Sex Assigned at Date Recorded Female 07/10/2022 7:32 AM CDT documented as of this encounter Plan of Treatment Upcoming Encounters Date Type Specialty Care Team Description 10/10/2022 Office Visit Neurology Karin Ramachandran M.D., M.P.H. [address] [place], [place] [phone] (Wo rk) documented as of this encounter Visit Diagnoses Not on filedocumented in this encounter
--- OUTSIDE RECORDS SUMMARY | 2022-09-21 09:01 | XMS_ITS | Encounter Summary ---
:1960 Author Organization [facility] Address [address] [place] [address] Care Team Providers Name Role Phone Unavailable Primary Care Provider Unavailable Encounter Details Date Type Department Care Team Description 03/20/2017 Hospital Encounter HX [facility] Aurelia Fernández M.D. [address] [place] [address] (Wo rk) Social History Tobacco [...] Yadav M.D. - 03/20/2017 12:35 PM CDT [id number] CHIEF COMPLAINT / REASON FOR VISIT Med refills. HISTORY OF PRESENT ILLNESS Chip is a 56-year-old female who presents to the clinic today for medication refills for hypothyroidism, alcohol abuse, and tobacco abuse. She tells us that her has been diagnosed with leukemia about 5 weeks ago and is being treated at [facility]. This has been a major stressorin [...] behalf by Curly Brownlee, a trained medical and health services manager. The creation of this record is based on the scribe's personal observations and the provider's statements to them. This document has been checked and approved by the attending provider. Faye Yadav M.D./carrei Electronically Signed By: FAYE YADAV MD On: 03/20/2017 07:26 PM Modified by and Electronically Signed by: FAYE YADAV MD On: 03/20/2017 07:26 PM Source: [facility] MHSDOLBEYNONRADSYS Document Id: [id number] Addendum by FAYE YADAV MD on March 20, 2017 19:28 CDT Past medical history, social history, and family history are reviewed and updated in the electronichealth record. Modified by and Electronically Signed by: FAYE YADAV MD On: 03/20/2017 07:28 PM Source: [facility] POWERCHART Document Id: [id number] Addendum by FAYE YADAV MD on March 20, 2017 19:28 CDT Past medical history, social history, and family history are reviewed and updated in the electronichealth record. Modified by and Electronically Signed by: FAYE YADAV MD On: 03/20/2017 07:28 PM Source: [facility] MedicAnimal.comCHART Document Id: [id number] documented in this encounter Miscellaneous Notes Miscellaneous - Susanne Pompa R.N. - 06/19/2017 3:44 PM CDT Med Management Document Contains Addenda Addendum by SHENG WHYTE on June 25, 2017 18:17:16 CDT noted. thanks! Addendum by MARCO ANTONIO RANDLE LPN on June 25, 2017 16:11:48 CDT From: MARCO ANTONIO RANDLE LPN ([facility] Nurse ([facility])) To: TIO Brown Possum Trapper; Sent: 06/25/2017 16:11:48 CDT Subject: FW: Med Management Addendum by FAYE YADAV MD on June 25, 2017 12:43:48 CDT From: FAYE YADAV MD To: [facility] Nurse ([facility] [facility]/CHEF MANAGER); Sent: 06/25/2017 12:43:48 CDT Subject: RE: Med Management Addendum by FAYE YADAV MD on June 25, 2017 12:43:43 CDT 01/2018 is fine. Thanks. Addendum by MARCO ANTONIO RANDLE LPN on June 25, 2017 10:38:15 CDT From: MARCO ANTONIO RANDLE LPN ([facility] Nurse ([employer] [facility]/CHEF MANAGER)) To: FAYE YADAV MD; Sent: 06/25/2017 10:38:15 CDT Subject: FW: Med Management Addendum by MARCO ANTONIO RANDLE LPN on June 25, 2017 10:37:24 CDT unable to assess. will route to PCP. Addendum by SHENG WHYTE on June 25, 2017 08:13:17 CDT From: SHENG WHYTE ([facility] Poss[employer] Trapper) To: [facility] Nurse (TABITHA/CHEF MANAGER); Sent: 06/25/2017 08:13:17 CDT Subject: RE: Med [...] R.N. ( Elan/Key/Matt Team Nurse (RN)) To: [place] Poss[employer] Trapper; Sent: 06/20/2017 08:10:33 CDT Subject: FW: Med Management Please schedule patient for follow up. Addendum by FAYE YADAV MD on June 19, 2017 16:46:08 CDT From: FAYE YADAV MD Sent: 06/19/2017 16:46:08 CDT Subject: RE:Med Management Approved with modifications: Order:gabapentin (gabapentin 300 mg oral capsule) 1 cap(s) PO 3xDay Qty: 90 cap(s) Refills: 0 Substitutions Allowed Route To [id number] Signed by FAYE YADAV MD 06/19/2017 16:46:01 overdue for f/u please arrange From: SUSANNE POMPA RN (TIO Ansari/Key/Matt Team Nurse (RN)) To: FAYE YADAV MD; Sent: 06/19/2017 15:44:33 CDT Subject: Med Management On hold pending signature Order:gabapentin (gabapentin 300 mg oral capsule) 1 cap(s) PO 3xDay Qty: 90 cap(s) Refills: 1 Substitutions Allowed Route To [id number] NOT REVIWED BY RN PROTOCOL 24hr SURGE Source: [facility] POWERCHART Document Id: [id number] Telephone Encounter - Conversion, Historical Provider Ser [...] tab(s) Refills: 11 Substitutions Allowed Route To [id number] Signed by FAYE YADAV MD 05/15/2017 15:57:30 Addendum by ATTILA BARON CMA on May 15, 2017 14:30:11 CDT From: ATTILA BARON CMA ([facility] Nurse ([facility])) To: FAYE YADAV MD; Sent: 05/15/2017 14:30:11 CDT Subject: FW: *Phone Message Last office visit 03/20/17, Please review and advise. Addendum by ATTILA BARON CMA on May 15, 2017 14:29:20 CDT On hold pending signature Order:levothyroxine (levothyroxine 88 mcg (0.088 mg) oral tablet) 1 tab(s) PO Daily Qty: 30 tab(s) Refills: 11 Substitutions Allowed Route To Pharmacy - [id number] TSH: 0.94 mIU/L (03/26/17) From: RICHARD MORRISON ([facility] Possum Trapper) To: [facility] Nurse ([facility]); Sent: 05/15/2017 14:02:00 CDT Subject: *Phone Message [...] back cell phone number ( ) Source: [facility] POWERCHART Document Id: [id number] Telephone Encounter - Conversion, Historical Provider Ser - 03/28/2017 11:39 AM CDT *Phone Message Document Contains Addenda Addendum by MARCO ANTONIO RANDLE LPN on March 28, 2017 11:45:44 CDT From: MARCO ANTONIO RANDLE LPN ([facility] Nurse ([facility] [employer] [facility]/CHEF MANAGER)) To: SHANTELL REVELES PA-C; Sent: 03/28/2017 11:45:44 CDT Subject: FW: *Phone Message Please advise in PCP absense. Addendum by MARCO ANTONIO RANDLE LPN on March 28, 2017 11:45:02 CDT Patient had labs done on March 26. TSH was 0.94 From: SHENG WHYTE ([facility] Poss[employer] Trapper) To: [facility] Nurse ([facility] [facility]/CHEF MANAGER); Sent: 03/28/2017 11:39:05 CDT ! Subject: *Phone [...] dose? Advice/Action: please call her NATHALIE at [phone]. Source used: ( ) Verbalizes understanding of [...] back cell phone number ( ) Source: [facility] POWERCHART Document Id: [id number] Miscellaneous - Faye Yadav M.D. - 03/20/2017 7:29 PM CDT Ambulatory Patient Summary Delfino Brown [address] [place] [id number] Visit Information Name: CARMENCHIP WHITING JACQUI [facility] Number: [id number] Current Date: 03/20/2017 19:29:32 Physicians [...] Wheezing use with spacer chamber Routed to [address] [address] amLODIPine (amLODIPine 10 mg oral tablet) 1 Tablet(s), Oral, once a day Routed to [address] [address] aspirin (aspirin 81 mg oral [...] Sting This is a CHANGE Routed to [address] [address] folic acid (folic acid 0.4 mg oral tablet) 400 mcg, Oral, once a day Routed to [address] [address] gabapentin (gabapentin 300 mg oral capsule) 1 cap, Oral, three times a day Routed to [address] [address] ibuprofen (ibuprofen 200 mg oral [...] 30-60 minutes before trigger food Routed to [address] [address] polyethylene glycol 3350 (polyethylene glycol 3350 oral powder for reconstitution) See Instructions Mix and use as directed for colonoscopy prep. thiamine (thiamine 100 mg oral tablet) 1 Tablet(s), Oral, once a day Routed to [address] [address] Stop Taking the Following Medications: [...] online form. Youll be asked for your [facility] number which you can find at the top of this document. Your Goals/Additional instructions: Source: [facility] POWERCHART Document Id: [id number] Miscellaneous - Faye Yadav M.D. - 03/20/2017 7:29 PM CDT Ambulatory Discharge Medication List [address] [id number] Visit Information Name: SERGEI CHIP JACQUI [facility] Number: [id number] Current Date: 03/20/2017 19:29:30 Attending Provider: FAYE YADAV MD Primary Care Provider: FAYE YADAV MD SANDINIESHAJOAHNNE CHIP OSMAN has been given the following [...] Wheezing use with spacer chamber Routed to [address] [address] amLODIPine (amLODIPine 10 mg oral tablet) 1 Tablet(s), Oral, once a day Routed to [address] [address] aspirin (aspirin 81 mg oral [...] Sting This is a CHANGE Routed to [address] [place] [address] folic acid (folic acid 0.4 mg oral tablet) 400 mcg, Oral, once a day Routed to [address] [address] gabapentin (gabapentin 300 mg oral capsule) 1 cap, Oral, three times a day Routed to [address] [address] ibuprofen (ibuprofen 200 mg oral [...] 30-60 minutes before trigger food Routed to [address] [address] polyethylene glycol 3350 (polyethylene glycol 3350 oral powder for reconstitution) See Instructions Mix and use as directed for colonoscopy prep. thiamine (thiamine 100 mg oral tablet) 1 Tablet(s), Oral, once a day Routed to [address] [address] Stop Taking the Following Medications: [...] MD Signed On:20-MAR-2017 19:29:25 Additional Information: Source: [facility] POWERCHART Document Id: [id number] Miscellaneous - Mami Saldaña, C.M.AEvans - 03/20/2017 1:12 PM CDT Adult Global Sales Manager Intake/History Adult Global Sales Manager Intake/History Entered On: 03/20/2017 13:13 CDT Performed On: 03/20/2017 13:12 CDT by MAMI SALDAÑA [facility] Intake Chief Complaint : medication refills [...] Mass Index : 23.87 kg/m2 MAMI SALDAÑA [facility] - 03/20/2017 13:12 CDT General Info Information Given By : Patient Languages : Kinyarwanda Is Patient Female and 13-50 no hysterectomy : No MAMI SALDAÑA [facility] - 03/20/2017 13:12 CDT Subjective Pain Symptoms : No MAMI SALDAÑA [facility] - 03/20/2017 13:12 CDT Dependent Habits [...] Daily Amount : 3-4 cups MAMI SALDAÑA CHEF MANAGER - 03/20/2017 13:12 CDT Source: [facility] POWERCHART Document Id: [id number] CDT!36 [place] - Mami Saldaña C.M.A. - [...] : Not difficult at all MAMI SALDAÑA [facility] - 03/20/2017 13:11 CDT [facility] Document Id: [id number] CDT!13 Sean - Mami Saldaña C.MLaw - [...] Yes Alcohol Use : Yes MAMI SALDAÑA [facility] - 03/20/2017 13:10 CDT Caffeine Use Grid Caffeine Use : Current Type : Coffee Frequency : Daily Amount : 3-4 cups MAMI SALDAÑA [facility] - 03/20/2017 13:10 CDT AUDIT Tool How Often Do You Have A Drink : 4 or more times a week How Many Drinks in a Day When Drinking : 3 or 4 Six or More Drinks On One Occassion : Never Audit Phase 1 Score : 5 MAMI SALADÑA [facility] - 03/20/2017 13:10 CDT Psychosocial Domestic Abuse Concerns : None Behavioral Health Screen/Safety Assmt : No Advent Preference : Unknown MAMI SALDAÑA [facility] - 03/20/2017 13:10 CDT Advance Directive Advanced Directives : No Advance Directive Additional Information : No MAMI SALDAÑA [facility] - 03/20/2017 13:10 CDT Educ Needs Learning Style Preference Adult Grid Patient : None Family : None MAMI SALDAÑA [facility] - 03/20/2017 13:10 CDT Source: [facility] POWERCHART Document Id: [id number] CDT!42 documented in this encounter Plan of Treatment Upcoming Encounters Date Type Specialty Care Team Description 10/10/2022 Office Visit Neurology Karin Ramachandran M.D., M.P.H. [address] [phone] (Wo rk) documented as of this encounter Visit Diagnoses Not on filedocumented in this encounter Additional Health Concerns Assessment Noted Time PHQ-9 Depression Total Score: 6 03/20/2017 1:11 PM CDT documented as of this encounter
--- OUTSIDE RECORDS SUMMARY | 2022-09-21 09:01 | XMS_ITS | Encounter Summary ---
:1960 Author Organization [facility] Address [address] [place] [address] Care Team Providers Name Role Phone Unavailable Primary Care Provider Unavailable Encounter Details Date Type Department Care Team Description 10/17/2015 Hospital Encounter HX [facility] Aurelia Yadav M.D. [address] [place] [address] (Wo rk) Social History Tobacco Use Types Packs/Day Years Used Date Smoking Tobacco: Never Assessed Sex Assigned at Date Recorded Female 07/10/2022 7:32 AM CDT documented as of this encounter Last Filed Vital Signs Vital Sign Reading Time Taken Comments Blood Pressure 136/82 10/17/2015 9:48 AM RUBBER COVERING MACHINE OPERATOR Pulse 100 10/17/2015 9:48 AM RUBBER COVERING MACHINE OPERATOR Temperature - - Respiratory Rate - - Oxygen Saturation - - Inhaled Oxygen Concentration - - Weight 59.1 kg (130 lb 4.7 oz) 10/17/2015 9:48 AM RUBBER COVERING MACHINE OPERATOR Height 160 cm (5' 2.99) 10/17/2015 9:48 AM RUBBER COVERING MACHINE OPERATOR Body Mass Index 23.09 10/17/2015 9:48 AM RUBBER COVERING MACHINE OPERATOR documented in this encounter Medications at Time [...] months on 10/17/15. Satisfied by MAMI SALDAÑA [facility] Health Assessment every 1 year on 10/17/15. Satisfied by MAMI SALDAÑA [facility] Vaccine: Flu every 1 year on 10/03/15. Satisfied by MARCO ANTONIO [facility] SYSTEMS REVIEW GENERAL: no unexplained fevers, chills, [...] on quitting. Patient is contemplative. Referred to [place] Quit Plan for more resources. Follow up [...] YADAV MD On: 10/17/2015 04:53 PM Source: [facility] POWERCHART Document Id: [id number] ER COVERING MACHINE OPERATOR documented in this encounter Nursing Notes Mami [...] time! So, don't give up! Go Cold Horicon: Most ex-smokers quit cold turkey. Trying to [...] the free national Quitline for more information. 289-MTVA-KOX (039-730-7328). Low-cost or free programs are offered by many hospitals,local chapters of the [place] [employer] Association (649-778-8345) and the [place] [employer] Society (238-983-0695). Support at home is important too. Non-smokers can help by offering praise and encouragement. If the smoker fails to quit, encourage them to try again! Gcgu-Nlv-Aqntzqi Medicines: For those who can't quit on [...] visit the following links: ?? National Cancer [place] , Clearing the Air, Quit Smoking Today - an online booklet. http://www.smokefree.gov/pubs/clearing_the_air.pdf ?? Smokefree.gov http://smokefree.gov/ ?? QuitNet http://www.quitnet.com/ ?? 5595-2625 [place] [address]. All rights reserved. This information is not intended as a substitute for professional medical care. Always follow your healthcare professional's instructions. This document has images extracted. Please consider using TareasPlus for all your patient education needs. Source: [facility] POWERCHART Document Id: [id number] ER COVERING MACHINE OPERATOR documented in this encounter Miscellaneous Notes Miscellaneous - Faye Yadav M.D. - 11/01/2015 7:43 AM CST Normal Results Letter 01 November 2015 CHIP MAI [address] [place] [phone] Dear CHIP MAI, I am pleased to [...] Current Result Laboratory-Scanned 10/17/2015 Sincerely, FAYE YADAV [address] [place] [id number] Electronic Signature Electronically Signed By: FAYE YADAV MD On: 01 November 2015 This document has images extracted. Source: [facility] [email or web address] Document Id: [id number] Miscellaneous - Faye Yadav M.D. - 10/17/2015 6:21 PM CST Normal Results Letter 17 October 2015 CHIP MAI [id number] [facility] [place] [phone] Dear CHIP MAI, I am pleased to [...] did put your cholesterol results in the [place] Heart Association/[place] [employer] calculator which showed your [...] 10/17/2015 0.27 - 4.20 Sincerely, FAYE YADAV [facility] [place] [address] Electronic Signature Electronically Signed By: FAYE YADAV MD On: 17 October 2015 This document has images extracted. Source: [facility] POWERCHART Document Id: [id number] Miscellaneous - Faye Yadav M.D. - 10/17/2015 4:56 PM CST [facility]ulatory [facility] [address] [phone] Visit Information Name: CHIP MAI [facility] Number: [id number] Current Date: 10/17/2015 16:56:45 Physicians [...] Wheezing use with spacer chamber Routed to [address] [address] amLODIPine (amLODIPine 5 mg oral tablet) 5 mg, Oral, once a day Routed to [address] [address] aspirin (aspirin 81 mg oral [...] mcg, Oral, once a day Routed to [place] [address] [address] loratadine (loratadine 10 mg oral tablet) 1 [...] not crush or chew / Cub in [place] fax [phone] This is a CHANGE Routed to Printer [...] Appointments Date Time Location Provider 11/16/2015 10:40 [facility] Mammo-Zumb RWZU MA RM 1 Attention: [...] time! So, don't give up! Go Cold Horicon: Most ex-smokers quit cold turkey. Trying to [...] the free national Quitline for more information. 216-GGFF-UAU (634-723-3208). Low-cost or free programs are offered by many hospitals,local chapters of the [place] [employer] (689-205-8337) and the [place] [employer] Society (088-918-5684). Support at home is important too. Non-smokers can help by offering praise and encouragement. If the smoker fails to quit, encourage them to try again! Jvfh-Cbs-Ahggpib Medicines: For those who can't quit on [...] visit the following links: ?? National Cancer [place] , Clearing the Air, Quit Smoking Today - an online booklet. http://www.smokefree.gov/pubs/clearing_the_air.pdf ?? Smokefree.gov http://smokefree.gov/ ?? QuitNet http://www.quitnet.com/ ?? 9757-3242 Alida Hanson, [address] [place] [address], [place] [address]. All rights reserved. This information is not [...] if you dont have one. Go to [email or web address] and click on Create Your Account. Then, follow the directions to complete the online form. Youll be asked for your [facility] number which you can find at the top of this document. Your Goals/Additional instructions: This document has images extracted. Please consider using TareasPlus for all your patient education needs. Source: [facility] POWERCHART Document Id: [id number] ER COVERING MACHINE OPERATOR Miscellaneous - Faye Yadav M.D. - 10/17/2015 4:56 PM CST Ambulatory Discharge Medication List [address] [id number] Visit Information Name: CHIP MAI [facility] Number: [id number] Visit Date: 10/17/2015 16:56:44 Attending [...] Wheezing use with spacer chamber Routed to [address] [address] amLODIPine (amLODIPine 5 mg oral tablet) 5 mg, Oral, once a day Routed to [address] [address] aspirin (aspirin 81 mg oral [...] mcg, Oral, once a day Routed to [address] [address] loratadine (loratadine 10 mg oral tablet) 1 [...] not crush or chew / Cub in [place] fax [phone] This is a CHANGE Routed to Printer [...] MD Signed On:17-OCT-2015 16:56:35 Additional Information: Source: [facility] POWERCHART Document Id: [id number] ER COVERING MACHINE OPERATOR Miscellaneous - Saldaña, Mami L, C.M.A. - 10/17/2015 11:06 AM CST Ambien From: MAMI SALDAÑA CMA ([facility] Nurse) Sent: 10/17/2015 11:06:14 RUBBER COVERING MACHINE OPERATOR Subject: Ambien Rx for Ambien faxed to pharmacy. Source: [facility] POWERCHART Document Id: [id number] Miscellaneous - Mami Saldaña C.M.A. 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 Entered On: 10/17/2015 9:52 RUBBER COVERING MACHINE OPERATOR Performed On: 10/17/2015 9:48 RUBBER COVERING MACHINE OPERATOR by MAMI SALDAÑA CMA Intake Chief Complaint [...] kg/m2 MAMI SALDAÑA CMA - 10/17/2015 9:48 RUBBER COVERING MACHINE OPERATOR General Info Information Given By : Patient Languages : [place] Is Patient Female and 13-50 no hysterectomy : No MAMI SALDAÑA CMA - 10/17/2015 9:48 RUBBER COVERING MACHINE OPERATOR Subjective Pain Symptoms : No MAMI SALDAÑA CMA - 10/17/2015 9:48 RUBBER COVERING MACHINE OPERATOR Dependent Habits Tobacco Use/Currently Using : Yes Exposure to Tobacco Smoke : Patient smokes, Other: .5-1 PPD Smoking Status : Current every day smoker MAMI SALDAÑA CMA - 10/17/2015 9:48 RUBBER COVERING MACHINE OPERATOR Tobacco Use Grid Type : Cigarettes Cigarette Use Packs/Day : 0.5 MAMI SALDAÑA [facility] - 10/17/2015 9:48 RUBBER COVERING MACHINE OPERATOR Caffeine Use Grid Caffeine Use : Current Type : Coffee Frequency : Daily Amount : 3-4 cups MAMI SALDAÑA [facility] - 10/17/2015 9:48 RUBBER COVERING MACHINE OPERATOR Source: [facility] POWERCHART Document Id: [id number] RUBBER COVERING MACHINE OPERATOR!37 ER COVERING MACHINE OPERATOR Miscellaneous - Mami Saldaña C.M.AEvans - 10/17/2015 9:47 AM CST Health Assessment Health Assessment Entered On: 10/17/2015 9:48 RUBBER COVERING MACHINE OPERATOR Performed On: 10/17/2015 9:47 RUBBER COVERING MACHINE OPERATOR by MAMI SALDAÑA [facility] Health Assessment Complete Health Assessment Complete or Modified : Annual Health Assessment Annual Health Assessment Completed : Yes MAMI SALDAÑA [facility] - 10/17/2015 9:47 RUBBER COVERING MACHINE OPERATOR Nutrition Nutrition Risk Factors by History Adult : None MAMI SALDAÑA [facility] - 10/17/2015 9:47 RUBBER COVERING MACHINE OPERATOR Functional Current Daily Living Assistance : None MAMI SALDAÑA [facility] - 10/17/2015 9:47 RUBBER COVERING MACHINE OPERATOR Dependent Habits Tobacco Use/Currently Using : Yes Exposure to Tobacco Smoke : Patient smokes, Other: .5-1 PPD Smoking Status : Current every day smoker MAMI SALDAÑA [facility] - 10/17/2015 9:47 RUBBER COVERING MACHINE OPERATOR Tobacco Use Grid Type : Cigarettes Cigarette Use Packs/Day : 0.5 MAMI SALDAÑA [facility] - 10/17/2015 9:47 RUBBER COVERING MACHINE OPERATOR Alcohol Use : Yes MAMI SALDAÑA [facility] - 10/17/2015 9:47 RUBBER COVERING MACHINE OPERATOR AUDIT Tool How Often Do You Have A Drink : 4 or more times a week How Many Drinks in a Day When Drinking : 5 or 6 Six or More Drinks On One Occassion : Daily or almost daily Audit Phase 1 Score : 10 MAMI SALDAÑA [facility] - 10/17/2015 9:47 RUBBER COVERING MACHINE OPERATOR Psychosocial Domestic Abuse Concerns : None Behavioral Health Screen/Safety Assmt : No [facility] Preference : No qualifying data available. MAMI SALDAÑA [facility] - 10/17/2015 9:47 RUBBER COVERING MACHINE OPERATOR Advance Directive Advanced Directives : No Advance Directive Additional Information : No MAMI SALDAÑA [facility] - 10/17/2015 9:47 RUBBER COVERING MACHINE OPERATOR Educ Needs Learning Style Preference Adult Grid Patient : None Family : None MAMI SALDAÑA [facility] - 10/17/2015 9:47 RUBBER COVERING MACHINE OPERATOR Source: [facility] [email or web address] Document Id: [id number] RUBBER COVERING MACHINE OPERATOR!33 ER COVERING MACHINE OPERATOR Miscellaneous - Mami Saldaña, C.M.A. - 10/17/2015 9:46 AM CST PHQ-9 PHQ-9 Entered On: 10/17/2015 9:47 RUBBER COVERING MACHINE OPERATOR Performed On: 10/17/2015 9:46 RUBBER COVERING MACHINE OPERATOR by MAMI SALDAÑA [facility] PHQ-9 Little interest or pleasure [...] with others : Somewhat difficult MAMI SALDAÑA [facility] - 10/17/2015 9:46 RUBBER COVERING MACHINE OPERATOR Source: [facility] [email or web address] Document Id: [id number] RUBBER COVERING MACHINE OPERATOR!13 ER COVERING MACHINE OPERATOR documented in this encounter Plan of Treatment Upcoming Encounters Date Type Specialty Care Team Description 10/10/2022 Office Visit Neurology Karin Ramachandran M.D., M.P.H. [address] [place], [place] [address] (Wo rk) documented as of this encounter Procedures Procedure Name Priority Date/Time Associated Diagnosis Comme nts LIPID PANEL, S Routine 10/17/2015 10:40 AM Result s for this RUBBER COVERING MACHINE OPERATOR procedure are i n the results section. THYROID-STIMULATING Routine 10/17/2015 10:40 AM R esults for this HORMONE-SENSITIVE RUBBER COVERING MACHINE OPERATOR procedure are in (S-TSH) the results section. BASIC METABOLIC Routine 10/17/2015 10:40 AM Resul ts for this PANEL, S/P RUBBER COVERING MACHINE OPERATOR procedure are i n the results section. PATHOLOGY DIRECTOR OF RESEARCH Routine 10/17/2015 12:00 AM Results for this CYTOLOGY RUBBER COVERING MACHINE OPERATOR procedure are i n the results section. documented in this encounter Results (ABNORMAL) BMP (Basic Metabolic Panel) (10/17/2015 10:40 AM RUBBER COVERING MACHINE OPERATOR) Analysis Performed At Patho logist Time Signature [...] S MGDL eGFR >60 >=60 POWERCHART Black/ [id number] Camb[place]ian HXeGFR (MDRD) >60 >=60 POWERCHART [id number] Comment: Results are in mL/min/1.73m CKD Stage I: ? GFR > 90 CKD Stage II: ?GFR 60 to 89 CKD Stage III: ? GFR 30 to 59 CKD Stage IV: ? GFR 15 to 29 CKD Stage V: ?GFR < 15 or Dialysi s Specimen (Source) Anatomical Collection Method Collection Time Re ceived Time Location / / Volume Laterality Blood 10/17/2015 10:40 AM RUBBER COVERING MACHINE OPERATOR Faye Yadav M.D. LAB BLOOD ADD-ON Performing Organization Address City/State/ZIP Code Phon e Number POWERCHART Thyroid-Stimulating Hormone-Sensitive (s-TSH) (10/17/2015 10:40 AM RUBBER COVERING MACHINE OPERATOR) P athologist Signature TSH 1.84 0.27 - 4.20 POWERCHART (Thyrotropin) MIUL Specimen (Source) Anatomical Collection Method Collection Time Re ceived Time Location / / Volume Laterality Blood 10/17/2015 10:40 AM RUBBER COVERING MACHINE OPERATOR Faye Yadav M.D. LAB BLOOD ADD-ON Performing Organization Address City/State/ZIP Code Phon e Number POWERCHART (ABNORMAL) Lipid Panel (10/17/2015 10:40 AM RUBBER COVERING MACHINE OPERATOR) P athologist Signature Cholesterol, 258 (H) <=199 [...] for FH and FDB is available throu [facility]: FH/ADH Genetic Reflex Kolb el (test ADHP). Acquired (non-genetic) causes of markedly increased LDL cholesterol include cholestatic liver disease due to the presence of LpX. If a genetic form of hypercholesterolemia is suspected, family studies including biochemical testing fo r lipids (total cholesterol,triglycerides, LDL cholesterol and HDL cholesterol) are recommended. ??Please contact the laboratory at or the on-line test catalog at [facility] for information about how to order these tomi ts or to speak with a genetic counselor. Further interpretation would require clinical information. Total Cholesterol/HDL Ratio 2 PO WERCHART HXLDL/HDL 1 POWERCHART Specimen (Source) Anatomical Collection Method Collection Time Re ceived Time Location / / Volume Laterality Blood 10/17/2015 10:40 AM RUBBER COVERING MACHINE OPERATOR Faye Yadav M.D. LAB BLOOD ADD-ON Performing Organization Address City/State/ZIP Code Phon e Number POWERCHART Pathology DIRECTOR OF RESEARCH Cytology (10/17/2015 12:00 AM RUBBER COVERING MACHINE OPERATOR) Specimen (Source) Anatomical Location Collection Method / Collectio n Time Received Time / Laterality Volume 10/17/2015 Narrative [facility] - 10/27/20 15 9:07 AM RUBBER COVERING MACHINE OPERATOR Pat: CARMENJOHANNECHIP RUBEN ([id number]) Age/Sex: 55 ??F ??Loc: ? -00 ([place] ) [facility] ??JULISA: 10/17/15 00:00 ??REC: 00:00 ??PHYS: , Cytology ?[facility] thinlayer cervica Patient Name: CHIP MAI MR#: [id number] Submitting Physician: FAYE YADAV MD ? ?[id number] Specimen #[id number] Performing Lab: ??[address] [address] CLINICAL HISTORY: Last menstrual period: Status: Specimen [...] PCR, [facility], test ing performed by [facility] HPV High Risk type 16, PCR [...] Number [facility] documented in this encounter Visit Diagnoses Not on filedocumented in this encounter Additional Health Concerns Assessment Noted Time PHQ-9 Depression Total Score: 10 10/17/2015 9:46 AM CS T documented as of this encounter
--- OUTSIDE RECORDS SUMMARY | 2022-09-21 09:01 | XMS_ITS | Encounter Summary ---
:1960 Author Organization [facility] Address [address] [place] [address] Care Team Providers Name Role Phone Unavailable Primary Care Provider Unavailable Encounter Details Date Type Department Care Team Description 03/20/2017 Hospital Encounter HX [facility] Aurelia Milligan M.D. [address] [place] [address] (Wo rk) Social History Tobacco [...] Summary-Paper Based CODING DATE: 03/25/2017 FINAL RW [facility] STATUS: * Discharged to Home or Self [...] ROSARIO Date Saved: 03/25/2017 02:58 pm [facility] Document Id: [id number] documented in this encounter Plan of Treatment Upcoming Encounters Date Type Specialty Care Team Description 10/10/2022 Office Visit Neurology Karin Ramachandran M.D., M.P.H. [address] [phone] (Wo rk) documented as of this encounter Visit Diagnoses Not on filedocumented in this encounter Additional Health Concerns Assessment Noted Time PHQ-9 Depression Total Score: 6 03/20/2017 1:11 PM CDT documented as of this encounter
--- OUTSIDE RECORDS SUMMARY | 2022-09-21 09:01 | XMS_ITS | Encounter Summary ---
:1960 Author Organization [facility] Address [address] [place] [address] Care Team Providers Name Role Phone Unavailable Primary Care Provider Unavailable Encounter Details Date Type Department Care Team Description 05/19/2014 Hospital Encounter HX [facility] Aurelia Grigsby M.D. [address] [place], [place] [phone] (Wo rk) Social History [...] Follow-Up Visit 02 March 2015 ZANDRA MAI [id number] [place] [phone] Dear ZANDRALON MORALESJOHANNE, Our records indicate that you are due for a follow up appointment with Dr. Yadav. Please call us to make an appointment at your convenience. Our telephone number for scheduling an appointment is [phone]. Your health is important to us. If you have already made an appointment for this or have had the procedure done, please disregard this notice. Sincerely, SHENG WHYTE Electronic Signature Electronically Signed By: SHENG WHYTE On: 02 March 2015 This document has images extracted. Source: [facility] POWERCHART Document Id: [id number] Miscellaneous - Anita Roa L.P.N. - 06/03/2014 11:40 AM CDT *General Message Document Contains Addenda Addendum by ANITA ROA LPN on 04 June 2014 09:07:31 CDT Message relayed to pt, voiced understanding/agreement Addendum by FAYE YADAV MD on 03 June 2014 17:38:11 CDT From: FAYE YADAV MD To: [facility] Nurse; Sent: 06/03/2014 17:38:11 CDT Subject: RE: *General Message Okay, I recommend follow up with allergy even if symptoms have resolved again by then. She should beseen sooner in primary care or if symptoms worsen. From: ANITA ROA LPN ([facility] Nurse) To: FAYE YADAV MD; Sent: 06/03/2014 11:40:59 CDT Subject: *General Message FYI - Pt just wanted to give you an update. Cancelled her ENT appt that was scheduled for May 09 because she had her voice back. Is now losing her voice again, and feels heavy chested. Has an appt in with oak tanner scheduled for June 21 Source: [facility] POWERCHART Document Id: [id number] Nancycellpepper - Faye Yadav M.D. - 05/25/2014 5:02 PM CDT Normal Results Letter 25 May 2014 ZANDRA MAI [id number] [place] [id number] Dear ZANDRA MAI, I am pleased to [...] 05/19/2014 144 01/07/2013 135 - 145 C4, Functional-Centennial (unit/mL) (H) 50 05/19/2014 22 - 45 - Sincerely, FAYE YADAV [address] [place] [address] Electronic Signature Electronically Signed By: FAYE YADAV MD On: 25 May 2014 This document has images extracted. Source: [facility] POWERCHART Document Id: [id number] documented in this encounter Plan of Treatment Upcoming Encounters Date Type Specialty Care Team Description 10/10/2022 Office Visit Neurology Karin Ramachandran M.D., M.P.H. [address] [phone] (Wo rk) documented as [...] Test Performed by: [facility] - [address] [address] Planishing Press Operator: Yuri alston III, M.D. Specimen (Source) Anatomical [...]
--- OUTSIDE RECORDS SUMMARY | 2022-09-21 09:01 | XMS_ITS | Encounter Summary ---
:1960 Author Organization [facility] Address [address] [place] [address] Care Team Providers Name Role Phone Unavailable Primary Care Provider Unavailable Encounter Details Date Type Department Care Team Description 04/13/2015 Hospital Encounter HX [facility] Natalia Sepulveda M.D. [address] [place] [address] (Wo rk) Social History Tobacco [...] vomiting, lightheadedness. She has been seen in [place] emergency room for evaluation and management in [...] to environmental allergens demonstrated indeterminate reaction to [place] but with otherwise negative with appropriate positive histamine control response. Please seescanned skin prick testing form for details. IMPRESSION/REPORT/PLAN 1. Angioedema Initial Ordered: C1 Esterase Inhibitor Functional Quant*-[place] 31646 C4 Complement, Functional*-[place] 85362 CBC (includes Auto Differential) Complement C3-[place] 8174 Comprehensive Metabolic Panel OV Consult Level 3 - 98190 - 40 min Percutaneous Tests Charge Tryptase-[place] 50518 TSH Plus (Ft4 If Indicated) 2. Conjunctivitis Chronic Allergic Ordered: OV Consult Level 3 - 75229 - 40 min Percutaneous Tests Charge 3. Abuse Tobacco Smoking NOS Ordered: OV Consult Level 3 - 29005 - 40 min Orders: Return Visit Allergy [...] angioedema attack but since she lives in [place] and her attacks have involved subjective laryngeal [...] SEPULVEDA MD On: 04/13/2015 04:28 PM Source: [employer] Document Id: [id number] documented in this encounter Nursing Notes Natalia Sepulveda M.D. - 04/13/2015 12:05 PM CDT Ambulatory Patient Education The following Patient Education Materials have been given to the patient: Patient Education Materials: Ambulatory ANGIOEDEMA Ambulatory Angioedema Angioedema (pronounced fthws-r-zsgyj) is a sudden appearance of swollen patches [...] Trouble breathing ?? Severe abdominal pains ?? [id number] Alida Hanson, [address] [place] [address], [place] [address]. All rights reserved. This information is not intended as a substitute for professional medical care. Always follow your healthcare professional's instructions. Source: [facility] POWERCHART Document Id: [id number] documented in this encounter Miscellaneous Notes Miscellaneous - Natalia Sepulveda M.D. - 04/13/2015 12:05 PM CDT Ambulatory Patient Summary [facility] [address] [facility], [address] [place] [id number] Visit Information Name: ZANDRA MAI [facility] Number: [id number] Current Date: 04/13/2015 12:05:51 Physicians Attending Provider: NATALIA SEPULVEDA MD Primary Care Provider: ÁNGEL YADAV MD ZANDRA MAI has been given the following list of follow-up instructions, medication list, and patient education materials: Follow-up Instructions With: Address: When: NATALIA SEPULVEDA [address] [place] [address] [place] [id number] Business (1) In 6 months 10/14/2015 Comments: [...] not crush or chew / [facility] in [place] fax [phone] * You have let us know that [...] further appointment detail needed. Angioedema Angioedema (pronounced cvmml-r-xzxcv) is a sudden appearance of swollen patches [...] Trouble breathing ?? Severe abdominal pains ?? [id number] [place] [address]. All rights reserved. This information is not intended as a substitute for professional medical care. Always follow your healthcare professional's instructions. Your Goals/Additional instructions: Source: [facility] POWERCHART Document Id: [id number] Miscellaneous - Natalia Sepulveda M.D. - 04/13/2015 12:05 PM CDT Ambulatory Discharge Medication List [address] [place] [address] [place] [id number] Visit Information Name: ZANDRA MAI [facility] Number: [id number] Visit Date: 04/13/2015 12:05:50 Attending [...] not crush or chew / [facility] in [place] fax [phone] * You have let us know that [...] MD Signed On:13-APR-2015 12:04:50 Additional Information: Source: [facility] [email or web address].comCHART Document Id: [id number] Miscellaneous - Alexandra Alonso RWilber - 04/13/2015 11:08 AM CDT Adult Document Management Specialist Intake/History Adult Document Management Specialist Intake/History Entered On: 04/13/2015 11:12 CDT Performed On: 04/13/2015 11:08 CDT by ALEXANDRA ALONSO coding educator Chief Complaint : allergy consult Temperature Core [...] Information Given By : Patient Languages : Gambian Is Patient Female and 13-50 no hysterectomy [...] ALONSO RN - 04/13/2015 11:08 CDT Source: [facility] [email or web address].comCHART Document Id: [id number] CDT!30 documented in this encounter Plan of Treatment Upcoming Encounters Date Type Specialty Care Team Description 10/10/2022 Office Visit Neurology Karin Ramachandran M.D., M.P.H. [address] [phone] (Wo rk) documented as of this encounter Visit Diagnoses Not on filedocumented in this encounter Additional Health Concerns Assessment Noted Time PHQ-9 Depression Total Score: 3 03/18/2014 3:18 PM CDT documented as of this encounter
--- OUTSIDE RECORDS SUMMARY | 2022-09-21 09:01 | XMS_ITS | Encounter Summary ---
:1960 Author Organization [facility] Address [address] [place] [address] Care Team Providers Name Role Phone Unavailable Primary Care Provider Unavailable Encounter Details Date Type Department Care Team Description 03/20/2016 Hospital Encounter HX [facility] Aurelia Yadav M.D. [address] [place] [address] (Wo rk) Social History Tobacco [...] OF PRESENT ILLNESS Patient was hospitalized at [place] from 03/11- for alcohol withdrawal seizure. She [...] 3-5mg as needed for sleep instead. 8. [facility] () Patient plans to do colonoscopy after her chest CT is done. Orders: Comprehensive Metabolic Panel I spent more than 20 minutes of this 30 minute appointment in counseling on management of alcohol and tobacco dependence. RTC 2-3 weeks for recheck. Electronically Signed By: FAYE YADAV MD On: 03/20/2016 04:30 PM Source: [employer] POWERCHART Document Id: [id number] documented in this encounter Miscellaneous Notes Miscellaneous - Conversion, Historical Provider Ser - 04/12/2016 8:37 AM CDT Schedule Follow-Up Visit April 12, 2016 CHIP MAI [address] [place] [id number] Dear CHIP MAI, Our records indicate that you are due for fasting labs for Dr. Yadav prior to your next appointment with her. Please call us to make an appointment at your convenience. Our telephone number for scheduling an appointment is [phone]. Your health is important to us. If you have already made an appointment for this or have had the procedure done, please disregard this notice. Sincerely, SHENG WHYTE Electronic Signature Electronically Signed By: SHENG WHYTE On: April 12, 2016 This document has images extracted. Source: [facility] POWERCHART Document Id: [id number] Miscellaneous - Faye Yadav M.D. - 03/21/2016 2:12 PM CDT Normal Results Letter March 21, 2016 CHIP MAI [address] [place] [id number] Dear CHIP MAI, I am pleased to [...] 10/17/2015 8.6 - 10.3 Sincerely, FAYE YADAV [address] [place] [address] Electronic Signature Electronically Signed By: FAYE YADAV MD On: March 21, 2016 This document has images extracted. Source: [facility] POWERCHART Document Id: [id number] Miscellaneous - Faye Yadav M.D. - 03/20/2016 4:31 PM CDT Ambulatory Patient Summary [address] [phone] Visit Information Name: CHIP MAI [facility] Number: [id number] Current Date: 03/20/2016 16:31:24 Physicians [...] Routed to [facility] [address] [place] [address] gabapentin (gabapentin 300 mg oral capsule) 1 cap, Oral, three times a day New Routed to [id number] [id number] ibuprofen (ibuprofen 200 mg oral capsule) See [...] Oral, once a day New Routed to [address] [address] Stop Taking the Following Medications: zolpidem (Ambien [...] Location Provider 04/10/2016 08:45 JHON Barrett MD, [facility] Attention: Contact your local Clinic if [...] if you dont have one. Go to [email or web address] and click on Create Your Account. Then, follow the directions to complete the online form. Youll be asked for your [facility] number which you can find at the top of this document. Your Goals/Additional instructions: Source: [facility] POWERCHART Document Id: [id number] Miscellaneous - Faye Yadav M.D. - 03/20/2016 4:31 PM CDT Ambulatory Discharge Medication List [address] [id number] Visit Information Name: UNDERDAHL, CHIP JACQUI [facility] Number: [id number] Visit Date: 03/20/2016 16:31:23 Attending [...] Oral, once a day New Routed to [place] [id number] [address] gabapentin (gabapentin 300 mg oral capsule) 1 cap, Oral, three times a day New Routed to [id number] [place] [address] ibuprofen (ibuprofen 200 mg oral capsule) [...] Oral, once a day New Routed to [address] [id number] Stop Taking the Following Medications: zolpidem (Ambien [...] MD Signed On:20-MAR-2016 16:31:06 Additional Information: Source: [facility] POWERCHART Document Id: [id number] Miscellaneous - Mami Saldaña, C.M.A. - 03/20/2016 10:16 AM CDT Adult End Polisher Intake/History Adult End Polisher Intake/History Entered On: 03/20/2016 10:17 CDT Performed On: 03/20/2016 10:16 CDT by MAMI SALDAÑA [facility] Intake Chief Complaint : hospital follow-up Temperature [...] Body Mass Index : 23.44 kg/m2 MAMI SADLAÑA CMA - 03/20/2016 10:16 CDT General Info Information Given By : Patient Languages : Pashto Is Patient Female and 13-50 no hysterectomy : No MAMI SALDAÑA CMA - 03/20/2016 10:16 CDT Subjective Pain Symptoms : No MAMI SALDAÑA [facility] - 03/20/2016 10:16 CDT Dependent Habits Exposure to Tobacco Smoke : Patient smokes, Other: .5-1 PPD Smoking Status : Former smoker Tobacco 2A : Yes Tobacco Use/Currently Using : No Tobacco Use/Last 30 Days : Yes Tobacco Use/Last 12 months : Yes Type : Cigarettes: Less than 20 per day Tobacco Use/Advised to Quit : Yes MAMI SALDAÑA [facility] - 03/20/2016 10:16 CDT Caffeine Use Grid Caffeine Use : Current Type : Coffee Frequency : Daily Amount : 3-4 cups MAMI SALDAÑA [facility] - 03/20/2016 10:16 CDT Source: [facility] [employer] Document Id: [id number] CDT!34 documented in this encounter Plan of Treatment Upcoming Encounters Date Type Specialty Care Team Description 10/10/2022 Office Visit Neurology Karin Ramachandran M.D., M.P.H. [address] [phone] (Wo rk) documented as [...] POWERCHART MGDL eGFR >60 >=60 POWERCHART Black/ [id number] Bangladeshi HXeGFR (MDRD) >60 >=60 POWERCHART [id number] Comment: Results are in mL/min/1.73m CKD Stage [...]
--- OUTSIDE RECORDS SUMMARY | 2022-09-21 09:01 | XMS_ITS | Encounter Summary ---
:1960 Author Organization [facility] Address [address] [place] [address] Care Team Providers Name Role Phone Unavailable [...] Neurology Karin Ramachandran M.D., M.P.H. [address], [place] [phone] (Wo rk) documented as [...] CBC with Differential (03/13/2016 5:06 AM CDT) [facility] Method Time Signature Erythrocytes 3.60 (L) 3.90 - ED [facility] 5.03 LABORATORIES - X10(12)/L [facility] MCV 102.5 (H) 81.6 - ED [facility] 98.3 FL LABORATORIES - [facility] RBC Distrib 13.5 11.9 - ED [facility] Width 15.5 % LABORATORIES - [facility] Platelet Count 227 150 - 450 ED [facility] X10(9)/L LABORATORIES - [facility] Lymphocytes 1.02 0.90 - ED [facility] 2.90 LABORATORIES - X10(9)/L [facility] Monocytes 0.68 0.30 - ED [facility] 0.90 LABORATORIES - X10(9)/L [facility] Hemoglobin 12.5 12.0 - ED [facility] 15.5 G/DL LABORATORIES - [facility] Hematocrit 36.9 34.9 - ED [facility] 44.5 % LABORATORIES - [facility] Leukocytes 11.3 (H) 3.5 - ED [facility] 10.5 LABORATORIES - X10(9)/L [facility] Neutrophils 9.27 (H) 1.70 - ED [facility] 7.00 LABORATORIES - X10(9)/L [facility] Eosinophils 0.25 0.05 - ED [facility] 0.50 LABORATORIES - X10(9)/L [facility] Basophils 0.03 0.00 - ED [facility] 0.30 LABORATORIES - X10(9)/L [facility] Specimen Anatomical Collection Method Collection Time Receive d Time (Source) Location / / Volume Laterality 03/13/2016 5:06 AM 6 5:06 CDT AM CDT Sunday Juarez M.D. LAB BLOOD ADD-ON Performing Organization Address City/[facility] Code Phon e Number ED [facility] LABORATORIES - [address] [place] [address] [facility] (ABNORMAL) CK (Creatine Kinase) (03/13/2016 5:06 AM CDT) [facility] gist Method Time Signature Creatine 359 (H) 38 - 176 ED [facility] Kinase (CK), S U/L LABORATORIES - [facility] Specimen Anatomical Collection Method Collection Time Receive d Time (Source) Location / / Volume Laterality 03/13/2016 5:06 AM 6 5:06 CDT AM CDT Sunday Juarez M.D. LAB BLOOD ADD-ON Performing Organization Address City/[facility] Code Phon e Number ED [facility] LABORATORIES - [address] [place] [phone] [facility] (ABNORMAL) Electrolyte (Chem 4) Panel (03/13/2016 5:06 AM CDT) [facility] Method Time Signature Sodium, S 134 (L) 135 - 145 ED [facility] MMOL/L LABORATORIES - [facility] Potassium, S 3.5 (L) 3.6 - 5.2 [facility] MMOL/L LABORATORIES [facility] Creatinine 0.5 (L) 0.6 - 1.1 [facility] MG/DL LABORATORIES - [facility] eGFR >60 >60 ED [facility] Non-Black/Afric ML/MIN/BS LABORATORIES - [facility] [place] Anion Gap 16 (H) 7 - 15 ED [facility] LABORATORIES [facility] Glucose, S 95 70 - 140 ED [facility] MG/DL LABORATORIES - [facility] Chloride, S 96 (L) 98 - 107 ED [facility] MMOL/L LABORATORIES [facility] HX Bicarbonate, 22 22 - 29 ED [facility] P/S MMOL/L [facility] - [facility] eGFR-Black/Afri >60 >60 ED [facility] can Grenadian ML/MIN/BS [facility] - [facility] BUN (Blood Urea 6 6 - 21 ED [facility] Nitrogen), S MG/DL LABORATORIES [facility] Specimen Anatomical Collection Method Collection Time Receive d Time (Source) Location / / Volume Laterality 03/13/2016 5:06 AM 6 5:06 CDT AM CDT Sunday Juarez M.D. LAB BLOOD ADD-ON Performing Organization Address City/State/ZIP Code Phon e Number ED [facility] LABORATORIES - [address] [place] [address] [facility] (ABNORMAL) Electrolyte (Chem 4) Panel (03/12/2016 6:36 AM CDT) [facility] Method Time Signature Sodium, S 134 (L) 135 - 145 ED [facility] MMOL/L LABORATORIES - [facility] Potassium, S 4.6 3.6 - 5.2 [facility] MMOL/L LABORATORIES - [facility] Chloride, S 96 (L) 98 - 107 ED [facility] MMOL/L [facility] HX Bicarbonate, 26 22 - 29 ED [facility] P/S MMOL/L LABORATORIES [facility] Creatinine 0.6 0.6 - 1.1 [facility] MG/DL LABORATORIES [facility] eGFR >60 >60 ED [facility] Non-Black/Afric ML/MIN/BS LABORATORIES - [place] A [facility] eGFR-Black/Afri >60 >60 ED [facility] can Grenadian ML/MIN/BS LABORATORIES - A [facility] BUN (Blood Urea 5 (L) 6 - 21 ED [facility] Nitrogen), S MG/DL LABORATORIES - [facility] Anion Gap 12 7 - 15 ED [facility] LABORATORIES - [facility] Glucose, S 84 70 - 140 ED [facility] MG/DL LABORATORIES - [facility] Specimen Anatomical Collection Method Collection Time Receive d Time (Source) Location / / Volume Laterality 03/12/2016 6:36 AM 6 6:36 CDT AM CDT Solange Ceja M.D. LAB BLOOD ADD-ON Performing Organization Address City/State/ZIP Code Phon e Number ED [facility] LABORATORIES - [address] [place], [place] [address] [facility] (ABNORMAL) CBC with Differential (03/12/2016 6:36 AM CDT) [facility] gist Method Time Signature Hemoglobin 12.4 12.0 - ED [facility] 15.5 G/DL LABORATORIES - [facility] Hematocrit 36.5 34.9 - ED [facility] 44.5 % LABORATORIES - [facility] Leukocytes 7.5 3.5 - ED [facility] 10.5 LABORATORIES - X10(9)/L [facility] Neutrophils 5.31 1.70 - ED [facility] 7.00 LABORATORIES - X10(9)/L [facility] Erythrocytes 3.56 (L) 3.90 - ED [facility] 5.03 LABORATORIES - X10(12)/L [facility] MCV 102.5 (H) 81.6 - ED [facility] 98.3 FL LABORATORIES - [facility] RBC Distrib 13.9 11.9 - ED [facility] Width 15.5 % LABORATORIES - [facility] Platelet Count 263 150 - 450 ED [facility] X10(9)/L LABORATORIES - [facility] Lymphocytes 1.16 0.90 - ED [facility] 2.90 LABORATORIES - X10(9)/L [facility] Monocytes 0.73 0.30 - ED [facility] 0.90 LABORATORIES - X10(9)/L [facility] Eosinophils 0.25 0.05 - ED [facility] 0.50 LABORATORIES - X10(9)/L [facility] Basophils 0.02 0.00 - ED [facility] 0.30 LABORATORIES - X10(9)/L [facility] Specimen Anatomical Collection Method Collection Time Receive d Time (Source) Location / / Volume Laterality 03/12/2016 6:36 AM 6 6:36 CDT AM CDT Solange Ceja M.D. LAB BLOOD ADD-ON Performing Organization Address City/State/ZIP Code Phon e Number ED [facility] LABORATORIES - [address] [address] [facility] Phosphorus Inorganic (03/12/2016 6:36 AM CDT) Analysis Performed At Patho logist Time Signature Phosphorus 3.5 2.5 - 4.5 ED [facility] (Inorganic), S MG/DL LABORATORIES [facility] Specimen Anatomical Collection Method Collection Time Receive d Time (Source) Location / / Volume Laterality 03/12/2016 6:36 AM 6 6:36 CDT AM CDT Solange Ceja M.D. LAB BLOOD ADD-ON Performing Organization Address City/[facility]/ZIP Code Phon e Number ED [facility] LABORATORIES - [address] [address] [facility] (ABNORMAL) CK (Creatine Kinase) (03/12/2016 6:36 AM CDT) Patholo gist Method Time Signature Creatine 894 (H) 38 - 176 ED [facility] Kinase (CK), S U/L [facility] Specimen Anatomical Collection Method Collection Time Receive d Time (Source) Location / / Volume Laterality 03/12/2016 6:36 AM 6 6:36 CDT AM CDT Solange Ceja M.D. LAB BLOOD ADD-ON Performing Organization Address City/[facility]/ZIP Code Phon e Number ED [facility] LABORATORIES - [address] [address] [facility] Magnesium (03/12/2016 6:36 AM CDT) P athologist Signature Magnesium, S 2.2 1.7 - 2.3 ED [facility] MG/DL [facility] Specimen Anatomical Collection Method Collection Time Receive d Time (Source) Location / / Volume Laterality 03/12/2016 6:36 AM 6 6:36 CDT AM CDT Solange Ceja M.D. LAB BLOOD ADD-ON Performing Organization Address City/State/ZIP Code Phon e Number ED [facility] LABORATORIES - [address] [place] [address] [facility] Calcium, Total (03/12/2016 6:36 AM CDT) P athologist Signature Calcium, 9.4 8.9 - 10.1 ED [facility] Total, S MG/DL [facility] Specimen Anatomical Collection Method Collection Time Receive d Time (Source) Location / / Volume Laterality 03/12/2016 6:36 AM 6 6:36 CDT AM CDT Solange Ceja M.D. LAB BLOOD ADD-ON Performing Organization Address City/[facility]/ZIP Code Phon e Number ED [facility] LABORATORIES - [address] [address] [facility] Calcium, Total (03/11/2016 5:22 PM CDT) P athologist Signature Calcium, 9.1 8.9 - 10.1 ED [facility] Total, S MG/DL [facility] - [facility] Specimen Anatomical Collection Method Collection Time Receive d Time (Source) Location / / Volume Laterality 03/11/2016 5:22 PM 6 5:22 CDT PM CDT Solange Ceja M.D. LAB BLOOD ADD-ON Performing Organization Address City/[facility]/ZIP Code Phon e Number ED [facility] LABORATORIES - [address] [address] [facility] (ABNORMAL) Magnesium (03/11/2016 5:22 PM CDT) Analysis Performed At Patho logist Time Signature Magnesium, S 1.5 (L) 1.7 - 2.3 ED [facility] MG/DL [facility] Specimen Anatomical Collection Method Collection Time Receive d Time (Source) Location / / Volume Laterality 03/11/2016 5:22 PM 6 5:22 CDT PM CDT Solange Ceja M.D. LAB BLOOD ADD-ON Performing Organization Address City/[facility]/ZIP Code Phon e Number ED [facility] LABORATORIES - [address] [address] [facility] Phosphorus Inorganic (03/11/2016 5:22 PM CDT) Analysis Performed At Patho logist Time Signature Phosphorus 3.3 2.5 - 4.5 ED [facility] (Inorganic), S MG/DL LABORATORIES - [facility] Specimen Anatomical Collection Method Collection Time Receive d Time (Source) Location / / Volume Laterality 03/11/2016 5:22 PM 6 5:22 CDT PM CDT Solange Ceja M.D. LAB BLOOD ADD-ON Performing Organization Address City/[facility] Phon e Number ED [facility] LABORATORIES - [address] [address] [facility] Vitamin B12 and Folate (03/11/2016 5:22 PM CDT) P athologist Signature Folate, S 8.0 >=4.0 ED [facility] MCG/L LABORATORIES - [facility] Vitamin B12 877 180 - 914 ED [facility] Assay, S NG/L LABORATORIES - [facility] Specimen Anatomical Collection Method Collection Time Receive d Time (Source) Location / / Volume Laterality 03/11/2016 5:22 PM 6 5:22 CDT PM CDT Solange Ceja M.D. LAB BLOOD NON ADD-ON Performing Organization Address City/[facility] Code Phon e Number ED [facility] LABORATORIES - [address] [address] [facility] (ABNORMAL) Electrolyte (Chem 4) Panel (03/11/2016 5:22 PM CDT) Patholo gist Method Time Signature Chloride, S 94 (L) 98 - 107 ED [facility] MMOL/L LABORATORIES - [facility] HX Bicarbonate, 22 22 - 29 ED [facility] P/S MMOL/L LABORATORIES - [facility] Creatinine 0.5 (L) 0.6 - 1.1 ED [facility] MG/DL LABORATORIES - [facility] eGFR >60 >60 ED [facility] Non-Black/Afric ML/MIN/BS LABORATORIES - [place] A [facility] Anion Gap 15 7 - 15 ED [facility] LABORATORIES - [facility] Glucose, S 83 70 - 140 ED [facility] MG/DL LABORATORIES - [facility] Sodium, S 131 (L) 135 - 145 ED [facility] MMOL/L LABORATORIES - [facility] Potassium, S 4.0 3.6 - 5.2 ED [facility] MMOL/L LABORATORIES - [facility] eGFR-Black/Afri >60 >60 ED [facility] can [place]adian ML/MIN/BS LABORATORIES - A [facility] BUN (Blood Urea 6 6 - 21 ED [facility] Nitrogen), S MG/DL [facility] Specimen Anatomical Collection Method Collection Time Receive d Time (Source) Location / / Volume Laterality 03/11/2016 5:22 PM 6 5:22 CDT PM CDT Solange Ceja M.D. LAB BLOOD ADD-ON Performing Organization Address City/State/ZIP Code Phon e Number ED [facility] LABORATORIES - [address] [place], [place] [address] [facility] DX Chest AP or PA and Lateral [...] Electronically signed by: ?? Rory Davies MD [id number] 11-Mar-2016 12:1 6 Narrative 03/11/2016 12:16 PM [...] clear. Electronically signed by: Rory Davies MD [id number] 11-Mar-2016 12:1 6 Solange Ceja M.D. IMG DIAGNOSTIC IMAGING PROCE DURES Microbiology Reports (03/11/2016 9:09 AM CDT) Specimen Anatomical Collection Method Collection Time Receive d Time (Source) Location / / Volume Laterality 03/11/2016 9:09 AM 6 9:36 CDT AM CDT Narrative [facility] - 03/12/2016 7:56 AM CDT 11-MAR-2016 URINE, MIDSTREAM, ?SoftOrd# [id number] ?(Ordered 11-MAR-2016; Collec more 11-MAR-2016 09:09; Received 11-MAR-2016 09:35) ?[facility] ?BACTERIAL CULTURE, AEROBIC + CHAIDEZ SC ? (Reported 12-MAR-2016 07:56) FINAL ?Mixed yoshi. Procedure Note 02/27/2018 11-MAR-2016 URINE, MIDSTREAM, SoftOrd# [id number] (Ordered 11-MAR-2016; Collected 2015 09:09; Received 11-MAR-2016 09:35) [facility] BACTERIAL CULTURE, AEROBIC + SUSC (Rep orted 12-MAR-2016 07:56) FINAL Mixed yoshi. Isreal Vaca M.D. LAB MICROBIOLOGY - GENERAL O RDERABLES Performing Organization Address City/State/ZIP Code Phon e Number ED [facility] LABORATORIES - [address] [place], [place] [address] [facility] (ABNORMAL) Gram Stain, Confirmatory, Urine (03/11/2016 9:09 AM CDT) [facility] Method Time Signature Grams Stain, Positive (A) ED [facility] Confirmatory, LABORATORIES - Urine [facility] Comment: Many Gram-positive bacilli ? Bacteria on epithelial cells ? Specimen Anatomical Collection Method Collection Time Receive d Time (Source) Location / / Volume Laterality 03/11/2016 9:09 AM 6 9:09 CDT AM CDT Isreal Vaca M.D. LAB URINE ORDERABLES Performing Organization Address City/State/[facility] Code Phon e Number ED [facility] LABORATORIES - [address] [place], [place] [address] [facility] Gram Stain, Urine (03/11/2016 9:09 AM CDT) athologist Signature Gram's Stain, . ED [facility] Screen, U LABORATORIES - [facility] Comment: Screen positive. See Gram Stain Confirma tory for staining ? result. ? Specimen Anatomical Collection Method Collection Time Receive d Time (Source) Location / / Volume Laterality 03/11/2016 9:09 AM 6 9:09 CDT AM CDT Isreal Vaca M.D. LAB URINE ORDERABLES Performing Organization Address [facility] Phon e Number ED [facility] LABORATORIES - [address] [place] [address] [facility] Drug Abuse Survey, Urine (03/11/2016 9:09 AM CDT) [facility] Method Time Signature Ethanol Negative NEGATIVE ED [facility] Immunoassay LABORATORIES - Screen [facility] Barbiturates, Negative NEGATIVE [facility] Screen, U LABORATORIES [facility] Opiates Negative NEGATIVE [facility] Phencyclidine Negative NEGATIVE ED [facility] LABORATORIES [facility] Benzodiazepines, Negative NEGATIVE [facility] Screen, U LABORATORIES - [facility] Cocaine Negative NEGATIVE ED [facility] Immunoassay LABORATORIES - Screen [facility] Tetrahydrocannabi . NEGATIVE ED [facility] nol, U LABORATORIES - [facility] Comment: Presumptive Positive Amphetamines, U . NEGATIVE ED [facility] [place] BORATORIES [facility] Comment: Presumptive Positive Specimen Anatomical Collection Method Collection Time Receive d Time (Source) Location / / Volume Laterality 03/11/2016 9:09 AM 6 9:09 CDT AM CDT Isreal Vaca M.D. LAB URINE ORDERABLES Performing Organization Address [facility] Code Phon e Number ED [facility] LABORATORIES - [address] [place] [address] [facility] (ABNORMAL) Urinalysis with Microscopic (03/11/2016 9:09 AM CDT) [facility] Method Time Signature Source Midstream [facility] Osmolality, 290 150 - ED [facility] 24 HR, U 1150 LABORATORIES - MOSM/KG [facility] Glucose 12 0 - 15 ED [facility] MG/DL [facility] Protein, U 21 <22 MG/DL [facility] Comment: ? ADDITIONAL INFORMATIO N ? On 06/07/2014 the total protein assay me valentin changed resulting ? in approximately a 20% increase in prote in values. ? pH, 24 HR, U 5.9 4.5 - 8.0 ED [facility] LABOR ATORIES [facility] Appearance Normal Normal ED [facility] Protein/Osmolality 0.72 (H) <0.27 [facility] Comment: ? ADDITIONAL INFORMATIO N ? On 06/07/2014 the total protein assay me thod changed resulting ? in approximately a 20% increase in prote in values. ? Predicted 24 Hr Protein 499 MG/[address] [facility] Predicted Range 123-2020 MG/24 H [facility] Hemoglobin, QL Negative Negative [facility] Specimen Anatomical Collection Method Collection Time Receive d Time (Source) Location / / Volume Laterality 03/11/2016 9:09 AM 6 9:09 CDT AM CDT Isreal Vaca M.D. LAB URINE ORDERABLES Performing Organization Address City/State/ZIP Code Phon e Number [facility] - [address] [place], [place] [address] [facility] (ABNORMAL) Microscopic Manual (03/11/2016 9:09 AM CDT) Patholo gist Method Time Signature Casts, Hyaline 4-10 /LPF [facility] Squamous 1-3 /HPF [facility] Epithelial [facility] Microscopy Abnormal [facility] WBC 1-3 1-3 ED [facility] (Males); LABORATORIES - 1-10 [facility] /HPF Bacteria Present (A) [facility] Specimen Anatomical Collection Method Collection Time Receive d Time (Source) Location / / Volume Laterality 03/11/2016 9:09 AM 6 9:09 CDT AM CDT Isreal Vaca M.D. LAB URINE ORDERABLES Performing Organization Address City/[facility]/ZIP Code Phon e Number [facility] - [address] [address] [facility] (ABNORMAL) CK (Creatine Kinase) (03/11/2016 8:50 AM CDT) [facility] Method Time Signature Creatine 767 (H) 38 - 176 ED [facility] Kinase (CK), S U/L [facility] Specimen Anatomical Collection Method Collection Time Receive d Time (Source) Location / / Volume Laterality 03/11/2016 8:50 AM 6 8:50 CDT AM CDT Joshua Shine M.D. LAB BLOOD ADD-ON Performing Organization Address City/[facility]/ZIP Code Phon e Number [facility] [address] [place] [address] [facility] Ethanol Level, Serum (03/11/2016 8:50 AM CDT) P athologist Signature Ethanol, S <10 <10 MG/DL [facility] Specimen Anatomical Collection Method Collection Time Receive d Time (Source) Location / / Volume Laterality 03/11/2016 8:50 AM 6 8:50 CDT AM CDT Joshua Shine M.D. LAB BLOOD NON ADD-ON Performing Organization Address City/[facility]/ZIP Code Phon e Number [facility] - [address] [address] [facility] (ABNORMAL) Osmolality (03/11/2016 8:50 AM CDT) [facility] Method Time Signature Osmolality, S 263 (L) 275 - 295 ED [facility] MOSM/KG [facility] Specimen Anatomical Collection Method Collection Time Receive d Time (Source) Location / / Volume Laterality 03/11/2016 8:50 AM 6 8:50 CDT AM CDT Solange Ceaj M.D. LAB BLOOD ADD-ON Performing Organization Address City/[facility]/ZIP Code Phon e Number ED [facility] - [address] [place], [place] [phone] [facility] CT Head without IV Contrast (03/11/2016 7:00 [...] S 78 (H) 8 - 43 U/L [facility] Specimen Anatomical Collection Method Collection Time Receive d Time (Source) Location / / Volume Laterality 03/11/2016 5:55 AM 6 5:55 CDT AM CDT Darryl Bahena M.D. LAB BLOOD ADD-ON Performing Organization Address City/[facility]/ZIP Code Phon e Number ED [facility] - [address] [place], [place] [address] [facility] ALT (Alanine Aminotransferase) (03/11/2016 5:55 AM CDT) Patholo gist Method Time Signature Alanine 35 7 - 45 [facility] Aminotransferase U/L LABORATORIES - (ALT), S [facility] Specimen Anatomical Collection Method Collection Time Receive d Time (Source) Location / / Volume Laterality 03/11/2016 5:55 AM 6 5:55 CDT AM CDT Darryl Bahena M.D. LAB BLOOD ADD-ON Performing Organization Address City/[facility]/ZIP Code Phon e Number [facility] - [address] [place], [place] [address] [facility] Alkaline Phosphatase (03/11/2016 5:55 AM CDT) P athologist Signature Alkaline 83 46 - 118 [facility] Phosphatase, S U/L [facility] Specimen Anatomical Collection Method Collection Time Receive d Time (Source) Location / / Volume Laterality 03/11/2016 5:55 AM 6 5:55 CDT AM CDT Darryl Bahena M.D. LAB BLOOD ADD-ON Performing Organization Address City/[facility]/ZIP Code Phon e Number [facility] - [address] [place], [place] [address] [facility] (ABNORMAL) Bilirubin, Total (03/11/2016 5:55 AM CDT) Patholo gist Method Time Signature Bilirubin, 1.3 (H) <=1.2 [facility] Total, S MG/DL LABORATORIES [facility] Specimen Anatomical Collection Method Collection Time Receive d Time (Source) Location / / Volume Laterality 03/11/2016 5:55 AM 6 5:55 CDT AM CDT Darryl Bahena M.D. LAB BLOOD ADD-ON Performing Organization Address City/[facility]/ZIP Code Phon e Number ED [facility] - [address] [place], [place] [address] [facility] (ABNORMAL) Albumin (03/11/2016 5:55 AM CDT) P athologist Signature Albumin, S 5.1 (H) 3.5 - 5.0 [facility] G/DL LABORATORIES - [facility] Specimen Anatomical Collection Method Collection Time Receive d Time (Source) Location / / Volume Laterality 03/11/2016 5:55 AM 6 5:55 CDT AM CDT Darryl Bahena M.D. LAB BLOOD ADD-ON Performing Organization Address City/State/ZIP Code Phon e Number [facility] - [address] [place] [phone] [facility] documented in this encounter Visit Diagnoses Not on filedocumented in this encounter Additional Health Concerns Assessment Noted Time PHQ-9 Depression Total Score: 10 10/17/2015 9:46 AM CS T documented as of this encounter
--- OUTSIDE RECORDS SUMMARY | 2022-09-21 09:01 | XMS_ITS | Encounter Summary ---
:1960 Author Organization [facility] Address [address] [place] [address] Care Team Providers Name Role Phone Unavailable Primary Care Provider Unavailable Encounter Details Date Type Department Care Team Description 01/07/2013 Hospital Encounter HX [facility] Aurelia Liao M.D. [address] [place] [address] (Wo rk) Social History Tobacco Use Types Packs/Day Years Used Date Smoking Tobacco: Never Assessed Sex Assigned at Date Recorded Female 07/10/2022 7:32 AM CDT documented as of this encounter Progress Notes Faye Liao M.D. - 01/07/2013 2:00 PM CST [id number] Zandra Lopez is here for follow up [...] monitor BP 2 times a week. If [id number]/85 consistently, will need to increase back to [...] sooner if new or worsening symptoms. Source: [facility] RWHXTRANSXRTFSYS Document Id: [id number] Electronically signed by Conversion, [facility] Director Of Speech Pathology [id number] at 04/22/2017 12:53 PM CDT documented in this encounter Miscellaneous Notes Miscellaneous - Conversion, Historical Provider Ser - 01/07/2013 2:00 PM TABLE KEEPER [id number] 01/08/2013 Zandra Taylor [facility] [address] [place] [phone] Dear Zandra: Thank you for allowing me [...] sign of concern. Thank you for choosing [facility]. Please continue with the treatment plan discussedin the office. Return as discussed or sooner if symptoms worsens or fail to improve. If you have anyfurther questions or concerns, please do not hesitate to contact us. Sincerely, Faye Liao MD [facility] [address] [place] [address] Source: [facility] RWMCHXTRANSXRTFSYS Document Id: [id number] documented in this encounter Plan of Treatment Upcoming Encounters Date Type Specialty Care Team Description 10/10/2022 Office Visit Neurology Karin Ramachandran M.D., M.P.H. [address] [phone] (Wo rk) documented as of this encounter Procedures Procedure Name Priority Date/Time Associated Comments Diagnosis THYROID-STIMULATING Routine 01/07/2013 6:44 PM Re sults for this HORMONE-SENSITIVE TABLE KEEPER procedure are in (S-TSH) the results section. HX UREA NITROGEN Routine 01/07/2013 6:14 PM Resul ts for this TABLE KEEPER procedure are i n the results section. HX AGAP Routine 01/07/2013 6:14 PM Results f or this TABLE KEEPER procedure are i n the results section. CREATININE WITH Routine 01/07/2013 6:14 PM Result s for this EGFR, P TABLE KEEPER procedure are i n the results section. CREATININE WITH Routine 01/07/2013 6:14 PM Result s for this EGFR, P TABLE KEEPER procedure are i n the results section. SODIUM, S/P Routine 01/07/2013 6:14 PM Results f or this TABLE KEEPER procedure are i n the results section. POTASSIUM, S/P Routine 01/07/2013 6:14 PM Results for this TABLE KEEPER procedure are i n the results section. GLUCOSE, RANDOM, S/P Routine 01/07/2013 6:14 PM R esults for this TABLE KEEPER procedure are i n the results section. CREATININE WITH Routine 01/07/2013 6:14 PM Result s for this EGFR, S/P TABLE KEEPER procedure are i n the results section. CHLORIDE, S/P Routine 01/07/2013 6:14 PM Results for this TABLE KEEPER procedure are i n the results section. BICARBONATE, B/S/P Routine 01/07/2013 6:14 PM Res ults for this TABLE KEEPER procedure are i n the results section. CALCIUM, TOT, S/P Routine 01/07/2013 6:14 PM Resu lts for this TABLE KEEPER procedure are i n the results section. documented in this encounter Results S-TSH (Thyroid-Stimulating Hormone - Sensitive) (01/07/2013 6:44 PM TABLE KEEPER) athologist Signature TSH 0.80 [facility] ([facility] LAB Specimen (Source) Anatomical Collection Method Collection Time Re ceived Time Location / / Volume Laterality 01/07/2013 6:44 PM TABLE KEEPER Historical Provider LAB BLOOD ADD-ON Performing Organization Address City/State/ZIP Code Phon e Number [facility] Calcium, Total (01/07/2013 6:14 PM TABLE KEEPER) athologist Signature Calcium, Total, 9.3 MGDL [facility] LAB Specimen (Source) Anatomical Collection Method Collection Time Re ceived Time Location / / Volume Laterality 01/07/2013 6:14 PM TABLE KEEPER Historical Provider LAB BLOOD ADD-ON Performing Organization Address City/State/ZIP Code Phon e Number [facility] Creatinine with Estimated GFR (MDRD), Plasma (01/07/2013 6:14 PM TABLE KEEPER) P athologist Signature eGFR >90 [id number] [facility] Black/ [facility] [place] LAB Specimen (Source) Anatomical Collection Method Collection Time Re ceived Time Location / / Volume Laterality 01/07/2013 6:14 PM TABLE KEEPER Historical Provider LAB BLOOD ADD-ON Performing Organization Address City/State/ZIP Code Phon e Number [facility] Creatinine with Estimated GFR (MDRD), Plasma (01/07/2013 6:14 PM TABLE KEEPER) P athologist Signature HXeGFR (MDRD) >90 [id number] [facility] Specimen (Source) Anatomical Collection Method Collection Time Re ceived Time Location / / Volume Laterality 01/07/2013 6:14 PM TABLE KEEPER Historical Provider LAB BLOOD ADD-ON Performing Organization Address City/State/ZIP Code Phon e Number [facility] Creatinine with Estimated GFR (MDRD) (01/07/2013 6:14 PM TABLE KEEPER) P athologist Signature Creatinine 0.61 MGDL [facility] Specimen (Source) Anatomical Collection Method Collection Time Re ceived Time Location / / Volume Laterality 01/07/2013 6:14 PM TABLE KEEPER Historical Provider LAB BLOOD ADD-ON Performing Organization Address City/State/ZIP Code Phon e Number [facility] HX UREA NITROGEN (01/07/2013 6:14 PM TABLE KEEPER) P athologist Signature Urea Nitrogen, 11 MGDL [facility] [address] HR, [facility] LAB Specimen (Source) Anatomical Collection Method Collection Time Re ceived Time Location / / Volume Laterality 01/07/2013 6:14 PM TABLE KEEPER Historical Provider LAB HISTORICAL ORDERS Performing Organization Address City/State/ZIP Code Phon e Number [facility] Glucose, Random (01/07/2013 6:14 PM TABLE KEEPER) P athologist Signature Glucose 77 MGDL [facility] Specimen (Source) Anatomical Collection Method Collection Time Re ceived Time Location / / Volume Laterality 01/07/2013 6:14 PM TABLE KEEPER Narrative [facility] - 02/05/20 14 9:41 PM CDT Non Fasting Historical Provider LAB BLOOD TROPONIN Performing Organization Address City/State/ZIP Code Phon e Number [facility] HX AGAP (01/07/2013 6:14 PM TABLE KEEPER) P athologist Signature Anion Gap 10 MMOLL [facility] Specimen (Source) Anatomical Collection Method Collection Time Re ceived Time Location / / Volume Laterality 01/07/2013 6:14 PM TABLE KEEPER Historical Provider LAB HISTORICAL ORDERS Performing Organization Address City/State/ZIP Code Phon e Number [facility] Bicarbonate (01/07/2013 6:14 PM TABLE KEEPER) P athologist Signature HX Carbon 27 MMOLL [facility] LAB Specimen (Source) Anatomical Collection Method Collection Time Re ceived Time Location / / Volume Laterality 01/07/2013 6:14 PM TABLE KEEPER Historical Provider LAB BLOOD ADD-ON Performing Organization Address City/State/ZIP Code Phon e Number [facility] Chloride (01/07/2013 6:14 PM TABLE KEEPER) P athologist Signature Chloride, S 107 MMOLL [facility] Specimen (Source) Anatomical Collection Method Collection Time Re ceived Time Location / / Volume Laterality 01/07/2013 6:14 PM TABLE KEEPER Historical Provider LAB BLOOD ADD-ON Performing Organization Address City/State/ZIP Code Phon e Number [facility] Potassium, S (01/07/2013 6:14 PM TABLE KEEPER) P athologist Signature Potassium, S 4.2 MMOLL [facility] LAB Specimen (Source) Anatomical Collection Method Collection Time Re ceived Time Location / / Volume Laterality 01/07/2013 6:14 PM TABLE KEEPER Historical Provider LAB BLOOD ADD-ON Performing Organization Address City/State/ZIP Code Phon e Number [facility] Sodium (01/07/2013 6:14 PM TABLE KEEPER) P athologist Signature Sodium, S 144 MMOLL [facility] Specimen (Source) Anatomical Collection Method Collection Time Re ceived Time Location / / Volume Laterality 01/07/2013 6:14 PM TABLE KEEPER Historical Provider LAB BLOOD ADD-ON Performing Organization Address City/State/ZIP Code Phon e Number [facility] documented in this encounter Visit Diagnoses Not on filedocumented in this encounter
--- OUTSIDE RECORDS SUMMARY | 2022-09-21 09:01 | XMS_ITS | Encounter Summary ---
:1960 Author Organization [facility] Address [address] [place] [address] Care Team Providers Name Role Phone Unavailable Primary Care Provider Unavailable Encounter Details Date Type Department Care Team Description 01/07/2013 Hospital Encounter HX NO MAPPING Abelardo Liao M.D. [address] [place] [phone] (Wo rk) Social History Tobacco Use Types Packs/Day Years Used Date Smoking Tobacco: Never Assessed Sex Assigned at Date Recorded Female 07/10/2022 7:32 AM CDT documented as of this encounter Plan of Treatment Upcoming Encounters Date Type Specialty Care Team Description 10/10/2022 Office Visit Neurology Karin Ramachandran M.D., M.P.H. [address] [place], [place] [phone] (Wo rk) documented as of this encounter Visit Diagnoses Not on filedocumented in this encounter
--- OUTSIDE RECORDS SUMMARY | 2022-09-21 09:01 | XMS_ITS | Encounter Summary ---
:1960 Author Organization [facility] Address [address] [place] [address] Care Team Providers Name Role Phone Unavailable Primary Care Provider Unavailable Encounter Details Date Type Department Care Team Description 01/12/2013 Hospital Encounter HX [facility] Aurelia Núñez M.D. [address] [place] [address] (Wo rk) Social History Tobacco Use Types Packs/Day Years Used Date Smoking Tobacco: Never Assessed Sex Assigned at Date Recorded Female 07/10/2022 7:32 AM CDT documented as of this encounter Plan of Treatment Upcoming Encounters Date Type Specialty Care Team Description 10/10/2022 Office Visit Neurology Karin Ramachandran M.D., M.P.H. [address] [place], [place] [phone] (Wo rk) documented as of this encounter Visit Diagnoses Not on filedocumented in this encounter
--- OUTSIDE RECORDS SUMMARY | 2022-09-21 09:01 | XMS_ITS | Encounter Summary ---
:1960 Author Organization [facility] Address [address] [place] [address] Care Team Providers Name Role Phone Unavailable Primary Care Provider Unavailable Encounter Details Date Type Department Care Team Description 03/17/2014 Hospital Encounter HX [facility] Aurelia Milligan M.D. [address] [place] [address] (Wo rk) Social History Tobacco [...] Neurology Karin Ramachandran M.D., M.P.H. [address] [place], [place] [phone] (Wo rk) documented as of this encounter Visit Diagnoses Not on filedocumented in this encounter
--- OUTSIDE RECORDS SUMMARY | 2022-09-21 09:02 | XMS_ITS | Encounter Summary ---
:1960 Author Organization [facility] Address [address] [place] [address] Care Team Providers Name Role Phone Unavailable Primary Care Provider Unavailable Encounter Details Date Type Department Care Team Description 11/14/2009 Hospital Encounter HX [facility] Shannon Patton M.D. [address] [place], [place] [phone] (Wo rk) Social History Tobacco Use Types Packs/Day Years Used Date Smoking Tobacco: Never Assessed Sex Assigned at Date Recorded Female 07/10/2022 7:32 AM CDT documented as of this encounter Plan of Treatment Upcoming Encounters Date Type Specialty Care Team Description 10/10/2022 Office Visit Neurology Karin Ramachandran M.D., M.P.H. [address] [phone] (Wo rk) documented as of this encounter Visit Diagnoses Not on filedocumented in this encounter
--- OUTSIDE RECORDS SUMMARY | 2022-09-21 09:02 | XMS_ITS | Encounter Summary ---
:1960 Author Organization [facility] Address [address] [place] [address] Care Team Providers Name Role Phone Unavailable Primary Care Provider Unavailable Encounter Details Date Type Department Care Team Description 11/21/2009 Hospital Encounter HX NO MAPPING Shannon Barrett M.D. [address] [place] [phone] (Wo rk) Social History Tobacco Use Types Packs/Day Years Used Date Smoking Tobacco: Never Assessed Sex Assigned at Date Recorded Female 07/10/2022 7:32 AM CDT documented as of this encounter Plan of Treatment Upcoming Encounters Date Type Specialty Care Team Description 10/10/2022 Office Visit Neurology Karin Ramachandran M.D., M.P.H. [address] [place], [place] [phone] (Wo rk) documented as of this encounter Visit Diagnoses Not on filedocumented in this encounter
--- OUTSIDE RECORDS SUMMARY | 2022-09-21 09:02 | XMS_ITS | Encounter Summary ---
:1960 Author Organization [facility] Address [address] [place] [address] Care Team Providers Name Role Phone Unavailable Primary Care Provider Unavailable Encounter Details Date Type Department Care Team Description 11/21/2009 Hospital [facility] X[facility] Provider, Histori darlin Social History Tobacco Use Types Packs/Day Years Used Date Smoking Tobacco: Never Assessed Sex Assigned at Date Recorded Female 07/10/2022 7:32 AM CDT documented as of this encounter Plan of Treatment Upcoming Encounters Date Type Specialty Care Team Description 10/10/2022 Office Visit Neurology Karin Ramachandran M.D., M.P.H. [address] [place], [place] [phone] (Wo rk) documented as of this encounter Visit Diagnoses Not on filedocumented in this encounter
--- OUTSIDE RECORDS SUMMARY | 2022-09-21 09:02 | XMS_ITS | Encounter Summary ---
:1960 Author Organization [facility] Address [address] [place] [address] Care Team Providers Name Role Phone Unavailable Primary Care Provider Unavailable Encounter Details Date Type Department Care Team Description 09/13/2010 Hospital Encounter HX [facility] Aurelia Fernández M.D. [address] [place] [address] (Wo rk) Social History Tobacco Use Types Packs/Day Years Used Date Smoking Tobacco: Never Assessed Sex Assigned at Date Recorded Female 07/10/2022 7:32 AM CDT documented as of this encounter Miscellaneous Notes Telephone Encounter - Conversion, Historical Provider Ser - 09/13/2010 12:00 AM CDT [id number] Pt needs refill on her thyroid meds faxed to [facility] in [place]. Source: [facility] Document Id: [id number] Telephone Encounter - Alyssa Evans R.N. - 09/13/2010 12:00 AM CDT [id number] Last visit: BP Readings from Last 1 Encounters: 07/24/2010 110/63 Called patient as per letter sent 09/08, she would like to try to increase her dose to 88mcg. Order placed for 88 mcg, please update dispense and refill. Informed she may need to return for recheck of TSH TSH 3.56 09/01/2010 Source: [facility] Document Id: [id number] documented in this encounter Plan of Treatment Upcoming Encounters Date Type Specialty Care Team Description 10/10/2022 Office Visit Neurology Karin Ramachandran M.D., M.P.H. [address] [phone] (Wo rk) documented as of this encounter Visit Diagnoses Not on filedocumented in this encounter
--- OUTSIDE RECORDS SUMMARY | 2022-09-21 09:02 | XMS_ITS | Encounter Summary ---
:1960 Author Organization [facility] Address [address] [place] [address] Care Team Providers Name Role Phone Unavailable Primary Care Provider Unavailable Encounter Details Date Type Department Care Team Description 12/16/2012 Hospital Encounter [facility] Aurelia Fernández M.D. [address] [place] [phone] (Wo rk) Social History Tobacco Use Types Packs/Day Years Used Date Smoking Tobacco: Never Assessed Sex Assigned at Date Recorded Female 07/10/2022 7:32 AM CDT documented as of this encounter Miscellaneous Notes Telephone Encounter - Conversion, Historical Provider Ser - 12/16/2012 12:00 AM CST [id number] Pt would like refills of her thyroid medication sent to the [facility] in [place]. She would like this done NATHALIE. Source: [facility]TR[facility] Document Id: [id number] Telephone Encounter - Conversion, Historical Provider Ser - 12/16/2012 12:00 AM CST [id number] Pt needs enough medication to last her until her appt on 01/07/13. Source: [facility] Document Id: [id number] Telephone Encounter - Conversion, Historical Provider Ser - 12/16/2012 12:00 AM CST [id number] Pt looking for enough Synthroid until 01/07/13 appt. Pt has not been seen since 12/06/11 (refill pool will not fill without labs being up to date, appt, etc). I have pended a 30 day supply. Please review/advise,thank you! [facility] [place] Last visit: BP Readings from Last 1 Encounters: 11/26/11 120/80 TSH 4.39 11/26/2011 Source: [facility] Document Id: [id number] Telephone Encounter - Faye Liao M.D. - 12/16/2012 12:00 AM CST [id number] Please put in pharmacy Source: [facility] Document Id: [id number] documented in this encounter Plan of Treatment Upcoming Encounters Date Type Specialty Care Team Description 10/10/2022 Office Visit Neurology Karin Ramachandran M.D., M.P.H. [address] [phone] (Wo rk) documented as of this encounter Visit Diagnoses Not on filedocumented in this encounter
--- OUTSIDE RECORDS SUMMARY | 2022-09-21 09:02 | XMS_ITS | Encounter Summary ---
:1960 Author Organization [facility] Address [address] [place] [address] Care Team Providers Name Role Phone Unavailable Primary Care Provider Unavailable Encounter Details Date Type Department Care Team Description 04/26/[address] [facility] Shannon Buitrago M.D. [address] [place] [address] (Wo rk) Social History Tobacco Use Types Packs/Day Years Used Date Smoking Tobacco: Never Assessed Sex Assigned at Date Recorded Female 07/10/2022 7:32 AM CDT documented as of this encounter Miscellaneous Notes Miscellaneous - Conversion, Historical Provider Ser - 04/26/2009 12:00 AM CDT [id number] Zandra Lopez [address] [id number] April 26, 2009 Dear Zandra, Your current [...] future. You may call our office at [phone] at the [facility] to schedule a visit. Please disregard this notice if you have already made an appointment. Sincerely, INTERNAL MEDICINE [facility], [address] [place] [address], [place] [address] Source: [facility] Document Id: [id number] Telephone Encounter - Conversion, Historical Provider Ser - 04/26/2009 12:00 AM CDT [id number] [facility] [facility] Source: [facility] Document Id: [id number] Telephone Encounter - Conversion, Historical Provider Ser - 04/26/2009 12:00 AM CDT [id number] Prescription approved for 1 month per RN refill protocol. Letter sent to patient for recheck appt. Last visit:10/12/08 Last 1 Encounter BP Readings: Date BP 10/12/2008 108/70 TSH 0.48 10/12/08 CAD/HTN and/or CHF labs: CR 0.85 10/12/08 POTASSIUM 4.1 10/12/08 Source: [facility] Document Id: [id number] documented in this encounter Plan of Treatment Upcoming Encounters Date Type Specialty Care Team Description 10/10/2022 Office Visit Neurology Karin Ramachandran M.D., M.P.H. [address] [place] [phone] (Wo rk) documented as of this encounter Visit Diagnoses Not on filedocumented in this encounter
--- OUTSIDE RECORDS SUMMARY | 2022-09-21 09:02 | XMS_ITS | Encounter Summary ---
:1960 Author Organization [facility] Address [address] [place] [address] Care Team Providers Name Role Phone Unavailable Primary Care Provider Unavailable Encounter Details Date Type Department Care Team Description 12/05/2009 Hospital Encounter HX [facility] Shannon Buitrago M.D. [address] [place] [phone] (Wo rk) Social History Tobacco Use Types Packs/Day Years Used Date Smoking Tobacco: Never Assessed Sex Assigned at Date Recorded Female 07/10/2022 7:32 AM CDT documented as of this encounter Miscellaneous Notes Miscellaneous - Jordyn Hoskins R.N. - 12/05/2009 12:00 AM CST [id number] Zandra Lopez [address] [place] [address] December 05, 2009 Dear Zandra, Your current [...] future. You may call our office at [phone] in Internal Medicine to schedule a visit. Please disregard this notice if you have already made an appointment. Sincerely, INTERNAL MEDICINE [facility], [address] [place], [place] [address] [address] Source: [facility] Document Id: [id number] Electronically signed by Conversion, [facility] Credit Collection Specialist [id number] at 04/28/2017 8:14 AM CDT Telephone Encounter - Conversion, Historical Provider Ser - 12/05/2009 12:00 AM CST [id number] Accepting this Rx will FAX it directly to the pharmacy. Thank You! Source: [facility] Document Id: [id number] Telephone Encounter - Jordyn Hoskins R.N. - 12/05/2009 12:00 AM CST [id number] Last visit:07/12/09 Last 1 Encounter BP Readings: Date BP 07/12/2009 120/66 Prescription approved for 1 month per RN refill protocol. Letter sent to patient for recheck appt. TSH 0.57 07/12/09 CAD/HTN and/or CHF labs: CR 0.72 07/12/09 POTASSIUM 4.5 07/12/09 Source: [facility] Document Id: [id number] Electronically signed by Conversion, [facility] Credit Collection Specialist [id number] at 04/28/2017 8:14 AM CDT documented in this encounter Plan of Treatment Upcoming Encounters Date Type Specialty Care Team Description 10/10/2022 Office Visit Neurology Karin Ramachandran M.D., M.P.H. [address] [phone] (Wo rk) documented as of this encounter Visit Diagnoses Not on filedocumented in this encounter
--- OUTSIDE RECORDS SUMMARY | 2022-09-21 09:02 | XMS_ITS | Encounter Summary ---
:1960 Author Organization [facility] Address [address] [place] [address] Care Team Providers Name Role Phone Unavailable Primary Care Provider Unavailable Encounter Details Date Type Department Care Team Description 12/17/2011 Hospital Encounter [facility] Aurelia Núñez M.D. [address] [place] [address] (Wo rk) Social History Tobacco Use Types Packs/Day Years Used Date Smoking Tobacco: Never Assessed Sex Assigned at Date Recorded Female 07/10/2022 7:32 AM CDT documented as of this encounter Plan of Treatment Upcoming Encounters Date Type Specialty Care Team Description 10/10/2022 Office Visit Neurology Karin Ramachandran M.D., M.P.H. [address] [place], [place] [phone] (Wo rk) documented as of this encounter Visit Diagnoses Not on filedocumented in this encounter
--- OUTSIDE RECORDS SUMMARY | 2022-09-21 09:02 | XMS_ITS | Encounter Summary ---
:1960 Author Organization [facility] Address [address] [place] [address] Care Team Providers Name Role Phone Unavailable Primary Care Provider Unavailable Encounter Details Date Type Department Care Team Description 07/04/2012 Hospital Encounter HX [facility] Shannon Zapata M.D. [address] [place] [address] (Wo rk) Social History Tobacco Use Types Packs/Day Years Used Date Smoking Tobacco: Never Assessed Sex Assigned at Date Recorded Female 07/10/2022 7:32 AM CDT documented as of this encounter Miscellaneous Notes Telephone Encounter - Susana Sifuentes L.P.N. - 07/04/2012 12:00 AM CDT [id number] Accepting this Rx will be faxed directly to pharmacy. Source: [facility] Document Id: [id number] Electronically signed by Conversion, [facility] Air Intelligence Officer [id number] at 04/27/2017 1:24 PM CDT Telephone Encounter - Rosina Wyatt R.N. - 07/04/2012 12:00 AM CDT [id number] Last visit: BP Readings from Last 1 [...] Routing to ordering provider for ambien Source: [facility] Document Id: [id number] Electronically signed by Conversion, [facility] Air Intelligence Officer [id number] at 04/27/2017 1:24 PM CDT documented in this encounter Plan of Treatment Upcoming Encounters Date Type Specialty Care Team Description 10/10/2022 Office Visit Neurology Karin Ramachandran M.D., M.P.H. [address] [phone] (Wo rk) documented as of this encounter Visit Diagnoses Not on filedocumented in this encounter
--- OUTSIDE RECORDS SUMMARY | 2022-09-21 09:02 | XMS_ITS | Encounter Summary ---
:1960 Author Organization [facility] Address [address] [place] [address] Care Team Providers Name Role Phone Unavailable Primary Care Provider Unavailable Encounter Details Date Type Department Care Team Description 07/12/2009 Hospital Encounter HX [facility] Shannon Barrett M.D. [address] [place] [address] (Wo rk) Social History Tobacco Use Types Packs/Day Years Used Date Smoking Tobacco: Never Assessed Sex Assigned at Date Recorded Female 07/10/2022 7:32 AM CDT documented as of this encounter Progress Notes Shannon Barrett M.D. - 07/12/2009 10:30 AM CDT [id number] SUBJECTIVE: Zandra Lopez is an 48 year [...] effective; continue present plan and medications. Source: [facility] Document Id: [id number] Electronically signed by Conversion, [facility] Instantizer Operator [id number] at 04/28/2017 9:24 PM CDT documented in this encounter Miscellaneous Notes Miscellaneous - Shannon Barrett M.D. - 07/12/2009 10:30 AM CDT [id number] Zandra Brandon Lopez [address] [place] [address] November 09, 2009 Dear Ms. Zandra Taylor [...] questions or problems, please contact me at [phone] in Internal Medicine. Sincerely, (electronically signed to expedite delivery) Shannon Barrett M.D. INTERNAL MEDICINE Source: [facility] Document Id: [id number] Electronically signed by Gabriela [facility] Instantizer Operator [id number] at 04/28/2017 9:24 PM CDT documented in this encounter Plan of Treatment Upcoming Encounters Date Type Specialty Care Team Description 10/10/2022 Office Visit Neurology Karin Ramachandran M.D., M.P.H. [address], [place] [phone] (Wo rk) documented as of this encounter Visit Diagnoses Not on filedocumented in this encounter
--- OUTSIDE RECORDS SUMMARY | 2022-09-21 09:02 | XMS_ITS | Encounter Summary ---
:1960 Author Organization [facility] Address [address] [place] [address] Care Team Providers Name Role Phone Unavailable Primary Care Provider Unavailable Encounter Details Date Type Department Care Team Description 08/04/[address] [facility] Shannon Buitrago M.D. [address] [place] [address] (Wo rk) Social History Tobacco Use Types Packs/Day Years Used Date Smoking Tobacco: Never Assessed Sex Assigned at Date Recorded Female 07/10/2022 7:32 AM CDT documented as of this encounter Miscellaneous Notes Telephone Encounter - Conversion, Historical Provider Ser - 08/04/2009 12:00 AM CDT [id number] Accepting this Rx will FAX it directly to the pharmacy. Thank You! Source: [facility] Document Id: [id number] Telephone Encounter - Chante Kenyon R.N. - 08/04/2009 12:00 AM CDT [id number] Last visit: 07/12/09 Last 1 Encounter BP Readings: Date BP 07/12/2009 120/66 CAD/HTN and/or CHF labs: CR 0.72 07/12/09 POTASSIUM 4.5 07/12/09 TSH 0.57 07/12/09 Source: [facility] Document Id: [id number] documented in this encounter Plan of Treatment Upcoming Encounters Date Type Specialty Care Team Description 10/10/2022 Office Visit Neurology Karin Ramachandran M.D., M.P.H. [address] [phone] (Wo rk) documented as of this encounter Visit Diagnoses Not on filedocumented in this encounter
--- OUTSIDE RECORDS SUMMARY | 2022-09-21 09:02 | XMS_ITS | Encounter Summary ---
:1960 Author Organization [facility] Address [address] [place] [address] Care Team Providers Name Role Phone Unavailable Primary Care Provider Unavailable Encounter Details Date Type Department Care Team Description 07/10/2011 Hospital Encounter HX [facility] Aurelia Fernández M.D. [address] [place] [phone] (Wo rk) Social History Tobacco Use Types Packs/Day Years Used Date Smoking Tobacco: Never Assessed Sex Assigned at Date Recorded Female 07/10/2022 7:32 AM CDT documented as of this encounter Miscellaneous Notes Miscellaneous - Kristine Pinedo R.N. - 07/10/2011 12:00 AM CDT [id number] Zandra Lopez [address] [place] [address] [place] July 10, 2011 Dear Zandra, [...] future. You may call our office at [phone] in Family Medicine to schedule a visit. Please disregard this notice if you have already made an appointment. Sincerely, [facility], [address] [place] [address], [place] [address] Source: [facility] Document Id: [id number] Telephone Encounter - Conversion, Historical Provider Ser - 07/10/2011 12:00 AM CDT [id number] [facility] [place] Last visit: BP Readings from Last 1 Encounters: 07/24/10 110/63 Source: [facility] Document Id: [id number] Telephone Encounter - Kristine Pinedo R.N. - 07/10/2011 12:00 AM CDT [id number] Last visit: BP Readings from Last 1 Encounters: 07/24/10 110/63 Care plan indicates patient is to RTC for recheck in 1 yr or CAD/HTN and/or CHF labs: CR 0.75 09/01/2010 POTASSIUM 3.6 09/01/2010 TSH 3.56 09/01/2010 Source: [facility] Document Id: [id number] documented in this encounter Plan of Treatment Upcoming Encounters Date Type Specialty Care Team Description 10/10/2022 Office Visit Neurology Karin Ramachandran M.D., M.P.H. [address] [phone] ( rk) documented as of this encounter Visit Diagnoses Not on filedocumented in this encounter
--- OUTSIDE RECORDS SUMMARY | 2022-09-21 09:02 | XMS_ITS | Encounter Summary ---
:1960 Author Organization [facility] Address [address] [place] [address] Care Team Providers Name Role Phone Unavailable Primary Care Provider Unavailable Encounter Details Date Type Department Care Team Description 01/07/2013 Hospital Encounter HX NO MAP[facility] Abelardo Liao M.D. [address] [place] [phone] (Wo rk) Social History Tobacco Use Types Packs/Day Years Used Date Smoking Tobacco: Never Assessed Sex Assigned at Date Recorded Female 07/10/2022 7:32 AM CDT documented as of this encounter Plan of Treatment Upcoming Encounters Date Type Specialty Care Team Description 10/10/2022 Office Visit Neurology Karin Ramachandran M.D., M.P.H. [address] [place], [place] [phone] (Wo rk) documented as of this encounter Visit Diagnoses Not on filedocumented in this encounter
--- OUTSIDE RECORDS SUMMARY | 2022-09-21 09:02 | XMS_ITS | Encounter Summary ---
:1960 Author Organization [facility] Address [address] [place] [address] Care Team Providers Name Role Phone Unavailable [...] Visit Neurology Karin Ramachandran M.D., M.P.H. [address] [place], [place] [phone] (Wo rk) documented as of this encounter Visit Diagnoses Not on filedocumented in this encounter
--- OUTSIDE RECORDS SUMMARY | 2022-09-21 09:02 | XMS_ITS | Encounter Summary ---
:1960 Author Organization [facility] Address [address] [place] [address] Care Team Providers Name Role Phone Unavailable Primary Care Provider Unavailable Encounter Details Date Type Department Care Team Description 12/17/2012 Hospital Encounter [facility] Aurelia Núñez M.D. [address] [place] [address] (Wo rk) Social History Tobacco Use Types Packs/Day Years Used Date Smoking Tobacco: Never Assessed Sex Assigned at Date Recorded Female 07/10/2022 7:32 AM CDT documented as of this encounter Plan of Treatment Upcoming Encounters Date Type Specialty Care Team Description 10/10/2022 Office Visit Neurology Karin Ramachandran M.D., M.P.H. [address] [place], [place] [phone] (Wo rk) documented as of this encounter Visit Diagnoses Not on filedocumented in this encounter
--- OUTSIDE RECORDS SUMMARY | 2022-09-21 09:02 | XMS_ITS | Encounter Summary ---
:1960 Author Organization [facility] Address [address] [place] [address] Care Team Providers Name Role Phone Unavailable Primary Care Provider Unavailable Encounter Details Date Type Department Care Team Description 11/29/2011 Hospital Encounter HX [facility] Aurelia Fernández M.D. [address] [place] [address] (Wo rk) Social History Tobacco Use Types Packs/Day Years Used Date Smoking Tobacco: Never Assessed Sex Assigned at Date Recorded Female 07/10/2022 7:32 AM CDT documented as of this encounter Miscellaneous Notes Telephone Encounter - Conversion, Historical Provider Ser - 11/29/2011 12:00 AM CST [id number] After talking with the pharmacist about Lunista, pt would like to stick with Ambien. Please fax rx to [facility]. Source: [facility] Document Id: [id number] Telephone Encounter - Conversion, Historical Provider Ser - 11/29/2011 12:00 AM CST [id number] [facility] [place] Last visit: BP Readings from Last 1 [...] CR 0.70 11/26/2011 POTASSIUM 5.0 11/26/2011 [facility] Document Id: [id number] Telephone Encounter - Faye Liao M.D. - 11/29/2011 12:00 AM CST [id number] rx done. Source: [facility] Document Id: [id number] Telephone Encounter - Conversion, Historical Provider Ser - 11/29/2011 12:00 AM CST [id number] faxed Source: [facility]ixSXR[facility]ognition PRO Document Id: [id number] documented in this encounter Plan of Treatment Upcoming Encounters Date Type Specialty Care Team Description 10/10/2022 Office Visit Neurology Karin Ramachandran M.D., M.P.H. [address] [phone] (Wo rk) documented as of this encounter Visit Diagnoses Not on filedocumented in this encounter
--- OUTSIDE RECORDS SUMMARY | 2022-09-21 09:02 | XMS_ITS | Encounter Summary ---
:1960 Author Organization [facility] Address [address] [place] [address] Care Team Providers Name Role Phone Unavailable Primary Care Provider Unavailable Encounter Details Date Type Department Care Team Description 03/23/2010 Hospital Encounter HX [facility] Aurelia Fernández M.D. [address] [place] [address] (Wo rk) Social History Tobacco Use Types Packs/Day Years Used Date Smoking Tobacco: Never Assessed Sex Assigned at Date Recorded Female 07/10/2022 7:32 AM CDT documented as of this encounter Miscellaneous Notes Telephone Encounter - Conversion, Historical Provider Ser - 03/23/2010 12:00 AM CDT [id number] Situation/What is the patients concern/need: patient called and has yeast infection Clinical Background/Recent Intervention: Last seen by you for refills 02/01 Recommendation/Patient Request: Was wondering if she could get a rx of diflucan to [facility] Best number(s) to reach patient: [phone] (home) Source: [facility] Document Id: [id number] Telephone Encounter - Faye Liao M.D. - 03/23/2010 12:00 AM CDT [id number] Forwarding to PCP. I did not discuss or prescribe anything related to yeast infections with her at that appt in January. Source: [facility] Document Id: [id number] Electronically signed by Conversion, [facility] Creping Machine Operator Helper [id number] at 04/28/2017 12:55 PM CDT Telephone Encounter - Shannon Barrett M.D. - 03/23/2010 12:00 AM CDT [id number] Recommend that pt be seen and diagnosis confirmed prior to meds..She has no reason to get a yeast infection,so it may be bacterial vaginosis. Source: [facility] Document Id: [id number] Electronically signed by Conversion, [facility] Creping Machine Operator Helper [id number] at 04/28/2017 12:55 PM CDT Telephone Encounter - Conversion, Historical Provider Ser - 03/23/2010 12:00 AM CDT [id number] Left message to call Source: [facility] Document Id: [id number] Telephone Encounter - Conversion, Historical Provider Ser - 03/23/2010 12:00 AM CDT [id number] patient called and she got otc meds to try and if not better by Saturday will call to be seen Source: [facility] Document Id: [id number] documented in this encounter Plan of Treatment Upcoming Encounters Date Type Specialty Care Team Description 10/10/2022 Office Visit Neurology Karin Ramachandran M.D., M.P.H. [address] [place], [place] [phone] (Wo rk) documented as of this encounter Visit Diagnoses Not on filedocumented in this encounter
--- OUTSIDE RECORDS SUMMARY | 2022-09-21 09:02 | XMS_ITS | Encounter Summary ---
:1960 Author Organization [facility] Address [address] [place] [address] Care Team Providers Name Role Phone Unavailable Primary Care Provider Unavailable Encounter Details Date Type Department Care Team Description 11/26/2011 Hospital Encounter HX [facility] Aurelia Núñez M.D. [address] [place] [address] (Wo rk) Social History Tobacco Use Types Packs/Day Years Used Date Smoking Tobacco: Never Assessed Sex Assigned at Date Recorded Female 07/10/2022 7:32 AM CDT documented as of this encounter Progress Notes Conversion, Historical Provider Ser - 11/26/2011 2:30 PM CST [id number] Addended by: OLAF RÍOS on: 11/26/2011 Modules accepted: Orders, SmartSet Source[facility] Document Id: [id number] Faye Liao M.D. - 11/26/2011 2:30 PM CST [id number] Zandra Lopez is here for follow up [...] quit date), and side effects vs benefits. [place] depressed on chantix in the past, has not beenon wellbutrin before. Return to clinic in 12 months or sooner if new or worsening symptoms. Source: [facility] Document Id: [id number] documented in this encounter Miscellaneous Notes Miscellaneous - Conversion, Historical Provider Ser - 11/26/2011 2:[address] CLERK [id number] 11/28/2011 Zandra Taylor [facility] [address] [facility] [address] [facility] Dear Zandra: Thank you for [...] to contact us. Sincerely, Faye Liao MD [facility] INTER[facility] MEDIC[facility]0 [facility] [address] Source: [facility] Document Id: [id number] Miscellaneous - Conversion, Historical Provider Ser - 11/26/2011 2:[address] CLERK [id number] Zandra Lopez [address] [place] [address] June 24, 2012 Dear Zandra Lopez APPOINTMENT REMINDER: Our records indicates that it is time for you to have your annual mammogram completed. You may call our office at [phone] or [phone] to schedule an appointment for a Mammogram. For your convenience, our [facility] now offers portable digital mammograms on the first Saturdayof every month. Please disregard this notice if you have already made an appointment. Sincerely, [facility] Source: [facility] Document Id: [id number] documented in this encounter Plan of Treatment Upcoming Encounters Date Type Specialty Care Team Description 10/10/2022 Office Visit Neurology Karin Ramachandran M.D., M.P.H. [address] [place] [phone] (Wo rk) documented as of this encounter Procedures Procedure Name Priority Date/Time Associated Comments Diagnosis HX LDLCHOL Routine 11/27/2011 7:05 PM Results f or this COURT CLERK procedure are i n the results section. THYROID-STIMULATING Routine 11/27/2011 1:33 PM Re sults for this HORMONE-SENSITIVE COURT CLERK procedure are in (S-TSH) the results section. HX UREA NITROGEN Routine 11/27/2011 1:04 PM Resul ts for this COURT CLERK procedure are i n the results section. HX AGAP Routine 11/27/2011 1:04 PM Results f or this COURT CLERK procedure are i n the results section. CREATININE WITH Routine 11/27/2011 1:04 PM Result s for this EGFR, P COURT CLERK procedure are i n the results section. CREATININE WITH Routine 11/27/2011 1:04 PM Result s for this EGFR, P COURT CLERK procedure are i n the results section. SODIUM, S/P Routine 11/27/2011 1:04 PM Results f or this COURT CLERK procedure are i n the results section. POTASSIUM, S/P Routine 11/27/2011 1:04 PM Results for this COURT CLERK procedure are i n the results section. GLUCOSE, RANDOM, S/P Routine 11/27/2011 1:04 PM R esults for this COURT CLERK procedure are i n the results section. CREATININE WITH Routine 11/27/2011 1:04 PM Result s for this EGFR, S/P COURT CLERK procedure are i n the results section. CHLORIDE, S/P Routine 11/27/2011 1:04 PM Results for this COURT CLERK procedure are i n the results section. BICARBONATE, B/S/P Routine 11/27/2011 1:04 PM Res ults for this COURT CLERK procedure are i n the results section. CALCIUM, TOT, S/P Routine 11/27/2011 1:04 PM Resu lts for this COURT CLERK procedure are i n the results section. documented in this encounter Results HX LDLCHOL (11/27/2011 7:[address] CLERK) athologist Signature LDL Cholesterol 125 MGDL [facility] Specimen (Source) Anatomical Collection Method Collection Time Re ceived Time Location / / Volume Laterality 11/27/2011 7:[address] CLERK Narrative [facility] - 01/24/20 14 1:[address] CLERK Optimal: ? <100 mg/dL Near Optimal: ? 100-129 mg/dL Borderline High: ??130-159 mg/dL High: ? 160-189 mg/dL Very high: ??greater than or equal to 19 0 mg/dL Cannot estimate LDL when triglyceride ex ceeds 400 mg/dL Historical Provider LAB HISTORICAL ORDERS Performing Organization Address City/State/[facility] Code Phon e Number [facility] S-TSH (Thyroid-Stimulating Hormone - Sensitive) (11/27/2011 1:[address] CLERK) P athologist Signature TSH 4.39 MUNITL [facility] (Thyrotropin) [facility] Specimen (Source) Anatomical Collection Method Collection Time Re ceived Time Location / / Volume Laterality 11/27/2011 1:[address] CLERK Historical Provider LAB BLOOD ADD-ON Performing Organization Address City/State/ZIP Code Phon e Number [facility] Calcium, Total (11/27/2011 1:[address] CLERK) P athologist Signature Calcium, Total, 10.0 MGDL [facility] Specimen (Source) Anatomical Collection Method Collection Time Re ceived Time Location / / Volume Laterality 11/27/2011 1:[address] CLERK Historical Provider LAB BLOOD ADD-ON Performing Organization Address City/State/ZIP Code Phon e Number [facility] Creatinine with Estimated GFR (MDRD), Plasma (11/27/2011 1:[address] CLERK) P athologist Signature eGFR >90 [id number] [facility] Black/ [facility] [place] LAB Specimen (Source) Anatomical Collection Method Collection Time Re ceived Time Location / / Volume Laterality 11/27/2011 1:[address] CLERK Historical Provider LAB BLOOD ADD-ON Performing Organization Address City/State/ZIP Code Phon e Number [facility] Creatinine with Estimated GFR (MDRD), Plasma (11/27/2011 1:[address] CLERK) P athologist Signature HXeGFR (MDRD) 88 [id number] [facility] Specimen (Source) Anatomical Collection Method Collection Time Re ceived Time Location / / Volume Laterality 11/27/2011 1:[address] CLERK Historical Provider LAB BLOOD ADD-ON Performing Organization Address City/State/ZIP Code Phon e Number [facility] Creatinine with Estimated GFR (MDRD) (11/27/2011 1:[address] CLERK) P athologist Signature Creatinine 0.70 MGDL [facility] Specimen (Source) Anatomical Collection Method Collection Time Re ceived Time Location / / Volume Laterality 11/27/2011 1:[address] CLERK Historical Provider LAB BLOOD ADD-ON Performing Organization Address City/State/ZIP Code Phon e Number [facility] HX UREA NITROGEN (11/27/2011 1:[address] CLERK) P athologist Signature Urea Nitrogen, 17 MGDL [facility] 24 HR, [facility] Specimen (Source) Anatomical Collection Method Collection Time Re ceived Time Location / / Volume Laterality 11/27/2011 1:[address] CLERK Historical Provider LAB HISTORICAL ORDERS Performing Organization Address City/State/ZIP Code Phon e Number [facility] Glucose, Random (11/27/2011 1:[address] CLERK) P athologist Signature Glucose 84 MGDL [facility] Specimen (Source) Anatomical Collection Method Collection Time Re ceived Time Location / / Volume Laterality 11/27/2011 1:[address] CLERK Narrative [facility] - 01/24/20 14 1:[address] CLERK Non Fasting Historical Provider LAB BLOOD TROPONIN Performing Organization Address City/State/ZIP Code Phon e Number [facility] HX AGAP (11/27/2011 1:[address] CLERK) P athologist Signature Anion Gap 8 MMOLL [facility] Specimen (Source) Anatomical Collection Method Collection Time Re ceived Time Location / / Volume Laterality 11/27/2011 1:[address] CLERK Historical Provider LAB HISTORICAL ORDERS Performing Organization Address City/State/ZIP Code Phon e Number [facility] Bicarbonate (11/27/2011 1:[address] CLERK) P athologist Signature HX Carbon 28 MMOLL [facility] Dioxide [facility] Specimen (Source) Anatomical Collection Method Collection Time Re ceived Time Location / / Volume Laterality 11/27/2011 1:[address] CLERK Historical Provider LAB BLOOD ADD-ON Performing Organization Address City/State/ZIP Code Phon e Number [facility] Chloride (11/27/2011 1:[address] CLERK) P athologist Signature Chloride, S 105 MMOLL [facility] Specimen (Source) Anatomical Collection Method Collection Time Re ceived Time Location / / Volume Laterality 11/27/2011 1:[address] CLERK Historical Provider LAB BLOOD ADD-ON Performing Organization Address City/State/ZIP Code Phon e Number [facility] Potassium, S (11/27/2011 1:[address] CLERK) P athologist Signature Potassium, S 5.0 MMOLL [facility] Specimen (Source) Anatomical Collection Method Collection Time Re ceived Time Location / / Volume Laterality 11/27/2011 1:[address] CLERK Historical Provider LAB BLOOD ADD-ON Performing Organization Address City/State/ZIP Code Phon e Number [facility] Sodium (11/27/2011 1:[address] CLERK) P athologist Signature Sodium, S 141 MMOLL [facility] Specimen (Source) Anatomical Collection Method Collection Time Re ceived Time Location / / Volume Laterality 11/27/2011 1:[address] CLERK Historical Provider LAB BLOOD ADD-ON Performing Organization Address City/State/ZIP Code Phon e Number [facility] documented in this encounter Visit Diagnoses Not on filedocumented in this encounter
--- OUTSIDE RECORDS SUMMARY | 2022-09-21 09:02 | XMS_ITS | Encounter Summary ---
:1960 Author Organization [facility] Address [address] [place] [address] Care Team Providers Name Role Phone Unavailable Primary Care Provider Unavailable Encounter Details Date Type Department Care Team Description 07/24/2010 Hospital Encounter [facility] Aurelia Liao M.D. [address] [place] [address] (Wo rk) Social History Tobacco Use Types Packs/Day Years Used Date Smoking Tobacco: Never Assessed Sex Assigned at Date Recorded Female 07/10/2022 7:32 AM CDT documented as of this encounter Progress Notes Faye Liao M.D. - 07/24/2010 1:00 PM CDT [id number] Zandra Lopez is a 49 year old [...] bleeding. GENITOURINARY: Denies dysuria, incontinence, nocturia, hematuria. INFUSION RN: does not breast symptoms, does not Vaginal [...] Refill meds. HTN well controlled-continue CCB. Source: [facility] RWHXTRANSXRTFSYS Document Id: [id number] Electronically signed by Conversion, [facility] Facs Teacher [id number] at 04/28/2017 3:39 PM CDT documented in this encounter Miscellaneous Notes Miscellaneous - Faye Liao M.D. - 07/24/2010 1:00 PM CDT [id number] Zandra Taylor [place] [place] [address] [facility] 07/28/2010 Dear Ms. Lopez, I am happy to inform you that your recent cervical cancer screening test (PAP smear) was normal. Preventative screening such as this helps insure your health for years to come. Congratulations for taking care of yourself! Please contact my office if you have any further questions. [phone] Sincerely, Faye Liao M.D. INTERNAL MEDICINE [facility] Source: [facility] Document Id: [id number] Electronically signed by Conversion, [facility] Facs Teacher [id number] at 04/28/2017 3:39 PM CDT documented in this encounter Plan of Treatment Upcoming Encounters Date Type Specialty Care Team Description 10/10/2022 Office Visit Neurology Karin Ramachandran M.D., M.P.H. [address] [phone] (Wo rk) documented as of this encounter Visit Diagnoses Not on filedocumented in this encounter
--- OUTSIDE RECORDS SUMMARY | 2022-09-21 09:02 | XMS_ITS | Encounter Summary ---
:1960 Author Organization [facility] Address [address] [place] [address] Care Team Providers Name Role Phone Unavailable Primary Care Provider Unavailable Encounter Details Date Type Department Care Team Description 04/09/2011 Hospital Encounter HX [facility] TIO Aurelia Núñez M.D. [address] [place] [address] (Wo rk) Social History Tobacco Use Types Packs/Day Years Used Date Smoking Tobacco: Never Assessed Sex Assigned at Date Recorded Female 07/10/2022 7:32 AM CDT documented as of this encounter Miscellaneous Notes Telephone Encounter - Conversion, Historical Provider Ser - 04/09/2011 12:00 AM CDT [id number] Was seen by you for pe 07/24/10, last fill 12/04/10 Source: [facility] Document Id: [id number] documented in this encounter Plan of Treatment Upcoming Encounters Date Type Specialty Care Team Description 10/10/2022 Office Visit Neurology Karin Ramachandran M.D., M.P.H. [address] [place], [place] [phone] (Wo rk) documented as of this encounter Visit Diagnoses Not on filedocumented in this encounter
--- OUTSIDE RECORDS SUMMARY | 2022-09-21 09:02 | XMS_ITS | Encounter Summary ---
:1960 Author Organization [facility] Address [address] [place] [address] Care Team Providers Name Role Phone Unavailable Primary Care Provider Unavailable Encounter Details Date Type Department Care Team Description 11/21/2009 Hospital Encounter HX NO MAPPING Shannon Barrett M.D. [address] [place] [phone] (Wo rk) Social History Tobacco Use Types Packs/Day Years Used Date Smoking Tobacco: Never Assessed Sex Assigned at Date Recorded Female 07/10/2022 7:32 AM CDT documented as of this encounter Plan of Treatment Upcoming Encounters Date Type Specialty Care Team Description 10/10/2022 Office Visit Neurology Karin Ramachandran M.D., M.P.H. [address] [place], [place] [phone] (Wo rk) documented as of this encounter Visit Diagnoses Not on filedocumented in this encounter
--- OUTSIDE RECORDS SUMMARY | 2022-09-21 09:02 | XMS_ITS | Encounter Summary ---
:1960 Author Organization [facility] Address [address] [place] [address] Care Team Providers Name Role Phone Unavailable Primary Care Provider Unavailable Encounter Details Date Type Department Care Team Description 07/11/2012 Hospital Encounter HX [facility] Shannon Garcia M.D. [address] [place] [address] (Wo rk) Social History Tobacco Use Types Packs/Day Years Used Date Smoking Tobacco: Never Assessed Sex Assigned at Date Recorded Female 07/10/2022 7:32 AM CDT documented as of this encounter Miscellaneous Notes Telephone Encounter - Conversion, Historical Provider Ser - 07/11/2012 12:00 AM CDT [id number] Zolpidem prior authorization request from [facility]. [facility] prior authorization initiated and faxed. Source: [facility] Document Id: [id number] Telephone Encounter - Conversion, Historical Provider Ser - 07/11/2012 12:00 AM CDT [id number] Rec'd fax from [facility] approving prior auth for Zolpidem granted effective 07/11/2012 to 01/11/2013. Approval faxed to [facility] pharmacy. Source: [facility] Document Id: [id number] documented in this encounter Plan of Treatment Upcoming Encounters Date Type Specialty Care Team Description 10/10/2022 Office Visit Neurology Karin Ramachandran M.D., M.P.H. [address] [place] [phone] (Wo rk) documented as of this encounter Visit Diagnoses Not on filedocumented in this encounter
--- OUTSIDE RECORDS SUMMARY | 2022-09-21 09:02 | XMS_ITS | Encounter Summary ---
:1960 Author Organization [facility] Address [address] [place] [address] Care Team Providers Name Role Phone Unavailable Primary Care Provider Unavailable Encounter Details Date Type Department Care Team Description 06/28/2009 Hospital [facility] Shannon Buitrago M.D. [address] [place] [address] (Wo rk) Social History Tobacco Use Types Packs/Day Years Used Date Smoking Tobacco: Never Assessed Sex Assigned at Date Recorded Female 07/10/2022 7:32 AM CDT documented as of this encounter Miscellaneous Notes Telephone Encounter - Conversion, Historical Provider Ser - 06/28/2009 12:00 AM CDT [id number] patient made an appt fro 07/12/09 can you please send down refill until then Source: [facility] Document Id: [id number] documented in this encounter Plan of Treatment Upcoming Encounters Date Type Specialty Care Team Description 10/10/2022 Office Visit Neurology Karin Ramachandran M.D., M.P.H. [address] [place], [place] [phone] (Wo rk) documented as of this encounter Visit Diagnoses Not on filedocumented in this encounter
--- OUTSIDE RECORDS SUMMARY | 2022-09-21 09:02 | XMS_ITS | Encounter Summary ---
:1960 Author Organization [facility] Address [address] [place] [address] Care Team Providers Name Role Phone Unavailable [...] Liao M.D. - 09/01/2010 12:30 PM CDT [id number] Zandra Lopez [address] [place] [address] September 08, 2010 Dear Zandra, I am [...] MD Departments of Internal Medicine and Pediatrics [facility] Source: [facility] Document Id: [id number] Electronically signed by Gabriela [facility] Tank Pumper [id number] at 04/28/2017 1:39 PM CDT documented in this encounter Plan of Treatment Upcoming Encounters Date Type Specialty Care Team Description 10/10/2022 Office Visit Neurology Karin Ramachandran M.D., M.P.H. [address] [place] [phone] (Wo rk) documented as of this encounter Visit Diagnoses Not on filedocumented in this encounter
--- OUTSIDE RECORDS SUMMARY | 2022-09-21 09:02 | XMS_ITS | Encounter Summary ---
:1960 Author Organization [facility] Address [address] [place] [address] Care Team Providers Name Role Phone Unavailable Primary Care Provider Unavailable Encounter Details Date Type Department Care Team Description 03/28/2011 Hospital Encounter HX [facility] Shannon Buitrago M.D. [address] [place] [address] (Wo rk) Social History Tobacco Use Types Packs/Day Years Used Date Smoking Tobacco: Never Assessed Sex Assigned at Date Recorded Female 07/10/2022 7:32 AM CDT documented as of this encounter Miscellaneous Notes Telephone Encounter - Conversion, Historical Provider Ser - 03/28/2011 12:00 AM CDT [id number] [facility] Last visit: BP Readings from Last 1 [...] Source: [facility] Document Id: [id number] Telephone Encounter - Sera Stephens R.N. - 03/28/2011 12:00 AM CDT [id number] Last visit:07/24/10 Yanni--pt to rtc in 1 [...] Source: [facility] Document Id: [id number] Electronically signed by Conversion, [facility] Telegraph Operator [id number] at 04/28/2017 5:00 AM CDT Telephone Encounter - Libra Starks D.O. - 03/28/2011 12:00 AM CDT [id number] Rx faxed. Source[facility] Document Id: [id number] Electronically signed by Conversion, [facility] Telegraph Operator [id number] at 04/28/2017 5:00 AM CDT documented in this encounter Plan of Treatment Upcoming Encounters Date Type Specialty Care Team Description 10/10/2022 Office Visit Neurology Karin Ramachandran M.D., M.P.H. [address], [place] [phone] (Wo rk) documented as of this encounter Visit Diagnoses Not on filedocumented in this encounter
--- OUTSIDE RECORDS SUMMARY | 2022-09-21 09:03 | XMS_ITS | Encounter Summary ---
:1960 Author Organization [facility] Address [address] [place] [address] Care Team Providers Name Role Phone Unavailable Primary Care Provider Unavailable Encounter Details Date Type Department Care Team Description 09/19/2007 Hospital Encounter HX [facility] TIO INTERNShannon Lewis M.D. [address] [place] [address] (Wo rk) Social History Tobacco Use Types Packs/Day Years Used Date Smoking Tobacco: Never Assessed Sex Assigned at Date Recorded Female 07/10/2022 7:32 AM CDT documented as of this encounter Progress Notes Shannon Vergara M.D. - 09/19/2007 9:30 AM CDT [id number] Addended by: SHANNON VERGARA on: 09/22/2007 9:09:23 AM Modules accepted: Orders Source: [facility] Document Id: [id number] Electronically signed by Gabriela [facility] Book Reviewer [id number] at 04/29/2017 2:00 PM CDT Shannon Vergara M.D. - 09/19/2007 9:30 AM CDT [id number] SUBJECTIVE: Patient here for a physical. HYPERTENSION: [...] aches. No H/O back pain or discomfort. 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 No dizziness, seizures, tremors, numbness, [...] Exam: Normal tone. No masses. No tenderness. 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 Cranial nerves intact. [...] how to prevent dependence .Discussed alternates. Source: [facility] Document Id: [id number] Electronically signed by Conversion, [facility] Book Reviewer [id number] at 04/29/2017 2:00 PM CDT documented in this encounter Miscellaneous Notes Nancycellpepper - Shannon Vergara M.D. - 09/19/2007 9:30 AM CDT [id number] Zandra Haleyhl [address] [place] [address] September 22, 2007 Dear Zandra Lopez: I [...] questions or problems, please contact me at [phone] in Internal Medicine. Sincerely, (electronically signed to expedite delivery) Shannon Vergara M.D. INTERNAL MEDICINE Source: [facility] Document Id: [id number] Electronically signed by Conversion, [facility] Book Reviewer [id number] at 04/29/2017 2:00 PM CDT Miscellaneous - Shannon Vergara M.D. - 09/19/2007 9:30 AM CDT [id number] Zandra Taylor [facility] [address] [address] November 14, 2007 Dear Zandra, I am happy to inform you that your recent cervical cancer screening test (PAP smear) was normal. Preventative screening such as this helps insure your health for years to come. Congratulations for taking care of yourself! Please contact my office at [phone] if you have any further questions. Sincerely, (electronically signed to expedite delivery) Shannon Fraga M.D. Internal Medicine [facility] Source: [facility] Document Id: [id number] Electronically signed by Gabriela [facility] Book Reviewer [id number] at 04/29/2017 2:00 PM CDT documented in this encounter Plan of Treatment Upcoming Encounters Date Type Specialty Care Team Description 10/10/2022 Office Visit Neurology Karin Ramachandran M.D., M.P.H. [address] [place], [place] [phone] (Wo rk) documented as of this encounter Visit Diagnoses Not on filedocumented in this encounter
--- OUTSIDE RECORDS SUMMARY | 2022-09-21 09:03 | XMS_ITS | Encounter Summary ---
:1960 Author Organization [facility] Address [address] [place] [address] Care Team Providers Name Role Phone Unavailable [...] Provider Ser - 03/05/2007 9:30 AM CDT [id number] HISTORY & PHYSICAL CC: Chief Complaint Patient [...] Hauser M.D. Department of Internal Medicine [facility] Document Id: [id number] documented in this encounter Plan of Treatment Upcoming Encounters Date Type Specialty Care Team Description 10/10/2022 Office Visit Neurology Karin Ramachandran M.D., M.P.H. [address] [phone] ([facility]) documented as of this encounter Visit Diagnoses Not on filedocumented in this encounter
--- OUTSIDE RECORDS SUMMARY | 2022-09-21 09:03 | XMS_ITS | Encounter Summary ---
:1960 Author Organization [facility] Address [address] [place] [address] Care Team Providers Name Role Phone Unavailable Primary Care Provider Unavailable Encounter Details Date Type Department Care Team Description 07/21/2007 Hospital Encounter HX [facility] Shannon Buitrago M.D. [address] [place] [address] (Wo rk) Social History Tobacco Use Types Packs/Day Years Used Date Smoking Tobacco: Never Assessed Sex Assigned at Date Recorded Female 07/10/2022 7:32 AM CDT documented as of this encounter Miscellaneous Notes Telephone Encounter - Conversion, Historical Provider Ser - 07/21/2007 12:00 AM CDT [id number] Last visit with Dr. Hauser for preop 03/05/07 [facility] Document Id: [id number] Telephone Encounter - Conversion, Historical Provider Ser - 07/21/2007 12:00 AM CDT [id number] Unable to approve medication per the RN refill protocol due to: Over due labs Last visit:01/16/07 Last 1 BP Readings: Date: BP: 03/05/2007 112/70 TSH 1.16 11/26/2005 CAD/HTN and or CHF labs: CR 0.85 01/18/2006 POTASSIUM 3.8 01/18/2006 [facility] Document Id: [id number] documented in this encounter Plan of Treatment Upcoming Encounters Date Type Specialty Care Team Description 10/10/2022 Office Visit Neurology Karin Ramachandran M.D., M.P.H. [address] [phone] (Wo rk) documented as of this encounter Visit Diagnoses Not on filedocumented in this encounter
--- OUTSIDE RECORDS SUMMARY | 2022-09-21 09:03 | XMS_ITS | Encounter Summary ---
:1960 Author Organization [facility] Address [address] [place] [address] Care Team Providers Name Role Phone Unavailable [...] Visit Neurology Karin Ramachandran M.D., M.P.H. [address] [place], [place] [phone] (Wo rk) documented as of this encounter Visit Diagnoses Not on filedocumented in this encounter
--- OUTSIDE RECORDS SUMMARY | 2022-09-21 09:03 | XMS_ITS | Encounter Summary ---
:1960 Author Organization [facility] Address [address] [place] [address] Care Team Providers Name Role Phone Unavailable Primary Care Provider Unavailable Encounter Details Date Type Department Care Team Description 03/19/2007 Hospital Encounter [facility] Juan Antonio Walters P.A.-C. Social History Tobacco Use Types Packs/Day Years Used Date Smoking Tobacco: Never Assessed Sex Assigned at Date Recorded Female 07/10/2022 7:32 AM CDT documented as of this encounter Progress Notes Juan Antonio Walters - 03/19/2007 1:00 PM CDT [id number] CLINIC ENCOUNTER SUBJECTIVE: Ms. Lopez is a [...] are progressing satisfactorily. ZA Parmar/ cc: [facility] Document Id: [id number] documented in this encounter Plan of Treatment Upcoming Encounters Date Type Specialty Care Team Description 10/10/2022 Office Visit Neurology Karin Ramachandran M.D., M.P.H. [address] [phone] (Wo rk) documented as of this encounter Visit Diagnoses Not on filedocumented in this encounter
--- OUTSIDE RECORDS SUMMARY | 2022-09-21 09:03 | XMS_ITS | Encounter Summary ---
:1960 Author Organization [facility] Address [address] [place] [address] Care Team Providers Name Role Phone Unavailable Primary Care Provider Unavailable Encounter Details Date Type Department Care Team Description 06/22/2008 Hospital Encounter [facility] Melonie Arguello M.D. [facility] [place], [place] [phone] (Wo rk) Social History Tobacco Use Types Packs/Day Years Used Date Smoking Tobacco: Never Assessed Sex Assigned at Date Recorded Female 07/10/2022 7:32 AM CDT documented as of this encounter Miscellaneous Notes Telephone Encounter - Alyssa Evans R.N. - 06/22/2008 12:00 AM CDT [id number] Patient called requesting refill for Ambien. Last Visit: with PCP on 04/27/08 Last 1 Encounter BP Readings: Date BP 04/27/2008 112/[address] Will forward request to Dr. Arguello in Dr. Barrett's absence. [facility] Document Id: [id number] Electronically signed by Conversion, [facility] [place] Welding Production Supervisor [id number] at 04/29/2017 5:34 AM CDT Telephone Encounter - Robbie Arguello M.D. - 06/22/2008 12:00 AM CDT [id number] Approved x [address] Barrett Source: [facility] Document Id: [id number] Electronically signed by Conversion, [facility] [place] Welding Production Supervisor [id number] at 04/29/2017 5:34 AM CDT documented in this encounter Plan of Treatment Upcoming Encounters Date Type Specialty Care Team Description 10/10/2022 Office Visit Neurology Karin Ramachandran M.D., M.P.H. [address] [phone] (Wo rk) documented as of this encounter Visit Diagnoses Not on filedocumented in this encounter
--- OUTSIDE RECORDS SUMMARY | 2022-09-21 09:03 | XMS_ITS | Encounter Summary ---
:1960 Author Organization [facility] Address [address] [place] [address] Care Team Providers Name Role Phone Unavailable Primary Care Provider Unavailable Encounter Details Date Type Department Care Team Description 03/10/2007 Hospital Encounter HX NO MAPPING Jarrod Persaud M.D. [address] [place], [place] [address] Social History Tobacco Use Types Packs/Day Years Used Date Smoking Tobacco: Never Assessed Sex Assigned at Date Recorded Female 07/10/2022 7:32 AM CDT documented as of this encounter Plan of Treatment Upcoming Encounters Date Type Specialty Care Team Description 10/10/2022 Office Visit Neurology Karin Ramachandran M.D., M.P.H. [address], [place] [phone] (Wo rk) documented as of this encounter Visit Diagnoses Not on filedocumented in this encounter
--- OUTSIDE RECORDS SUMMARY | 2022-09-21 09:03 | XMS_ITS | Encounter Summary ---
:1960 Author Organization [facility] Address [address] [place] [address] Care Team Providers Name Role Phone Unavailable Primary Care Provider Unavailable Encounter Details Date Type Department Care Team Description 10/11/2008 Hospital Encounter HX NO MAPPING Shannon Barrett M.D. [address] [place] [phone] (Wo rk) Social History Tobacco Use Types Packs/Day Years Used Date Smoking Tobacco: Never Assessed Sex Assigned at Date Recorded Female 07/10/2022 7:32 AM CDT documented as of this encounter Plan of Treatment Upcoming Encounters Date Type Specialty Care Team Description 10/10/2022 Office Visit Neurology Karin Ramachandran M.D., M.P.H. [address] [place], [place] [phone] (Wo rk) documented as of this encounter Visit Diagnoses Not on filedocumented in this encounter
--- OUTSIDE RECORDS SUMMARY | 2022-09-21 09:03 | XMS_ITS | Encounter Summary ---
:1960 Author Organization [facility] Address [address] [place] [address] Care Team Providers Name Role Phone Unavailable Primary Care Provider Unavailable Encounter Details Date Type Department Care Team Description 03/11/2007 Hospital Encounter [facility]X [facility] Provider, Histor ical Social History Tobacco Use Types Packs/Day Years Used Date Smoking Tobacco: Never Assessed Sex Assigned at Date Recorded Female 07/10/2022 7:32 AM CDT documented as of this encounter Miscellaneous Notes Telephone Encounter - Conversion, Historical Provider Ser - 03/11/2007 12:00 AM CDT [id number] TELEPHONE TRIAGE ENCOUNTER FORM Date: 03/11/2007 PCP: Shannon Barrett MD Patient Name: Zandra Lopez Gender: female : 1960 Age: [age] year old Time: 11:28 AM Phone Numbers: [phone] (home) Pharmacy: [email or web address] Presenting Problem: Left shoulder post operative pain [...] to plan? Yes EVALUATION / FOLLOW-UP [facility] Document Id: [id number] documented in this encounter Plan of Treatment Upcoming Encounters Date Type Specialty Care Team Description 10/10/2022 Office Visit Neurology Karin Ramachandran M.D., M.P.H. [address] [phone] (Wo rk) documented as of this encounter Visit Diagnoses Not on filedocumented in this encounter
--- OUTSIDE RECORDS SUMMARY | 2022-09-21 09:03 | XMS_ITS | Encounter Summary ---
:1960 Author Organization [facility] Address [address] [place] [address] Care Team Providers Name Role Phone Unavailable Primary Care Provider Unavailable Encounter Details Date Type Department Care Team Description 11/20/2007 Hospital Encounter HX [facility] Melonie Arguello M.D. [address] [place], [place] [phone] (Wo rk) Social History Tobacco Use Types Packs/Day Years Used Date Smoking Tobacco: Never Assessed Sex Assigned at Date Recorded Female 07/10/2022 7:32 AM CDT documented as of this encounter Miscellaneous Notes Telephone Encounter - Conversion, Historical Provider Ser - 11/20/2007 12:00 AM CST [id number] This is one of Shannon's patients, she was seen by her 09/19/07 for a pe. She had this med filled than for 30 pills. Would like a refill, chould you please address in pcp absence. Thanks Source[facility] Document Id: [id number] Telephone Encounter - Conversion, Historical Provider Ser - 11/20/2007 12:00 AM CST [id number] patient called [facility] Document Id: [id number] documented in this encounter Plan of Treatment Upcoming Encounters Date Type Specialty Care Team Description 10/10/2022 Office Visit Neurology Karin Ramachandran M.D., M.P.H. [address] [place], [place] [phone] (Wo rk) documented as of this encounter Visit Diagnoses Not on filedocumented in this encounter
--- OUTSIDE RECORDS SUMMARY | 2022-09-21 09:03 | XMS_ITS | Encounter Summary ---
:1960 Author Organization [facility] Address [address] [place] [address] Care Team Providers Name Role Phone Unavailable Primary Care Provider Unavailable Encounter Details Date Type Department Care Team Description 01/09/2008 Hospital Encounter HX [facility] Shannon Tan M.D. [address] [place] [address] (Wo rk) Social History Tobacco Use Types Packs/Day Years Used Date Smoking Tobacco: Never Assessed Sex Assigned at Date Recorded Female 07/10/2022 7:32 AM CDT documented as of this encounter Miscellaneous Notes Telephone Encounter - Conversion, Historical Provider Ser - 01/09/2008 12:00 AM CST [id number] Accepting this Rx will FAX it directly to the pharmacy. Thank You! Source: [facility] Document Id: [id number] Telephone Encounter - Conversion, Historical Provider Ser - 01/09/2008 12:00 AM CST [id number] Called pharmacy as pt received 10 refills in August. Pharmacy verified she does have refills. Source: [facility] Document Id: [id number] documented in this encounter Plan of Treatment Upcoming Encounters Date Type Specialty Care Team Description 10/10/2022 Office Visit Neurology Karin Ramachandran M.D., M.P.H. [address] [place], [place] [phone] (Wo rk) documented as of this encounter Visit Diagnoses Not on filedocumented in this encounter
--- OUTSIDE RECORDS SUMMARY | 2022-09-21 09:03 | XMS_ITS | Encounter Summary ---
:1960 Author Organization [facility] Address [address] [place] [address] Care Team Providers Name Role Phone Unavailable Primary Care Provider Unavailable Encounter Details Date Type Department Care Team Description 10/12/2008 Hospital Encounter HX [facility] XRAY Provider, Histori darlin Social History Tobacco Use Types Packs/Day Years Used Date Smoking Tobacco: Never Assessed Sex Assigned at Date Recorded Female 07/10/2022 7:32 AM CDT documented as of this encounter Plan of Treatment Upcoming Encounters Date Type Specialty Care Team Description 10/10/2022 Office Visit Neurology Karin Ramachandran M.D., M.P.H. [address] [place], [place] [phone] (Wo rk) documented as of this encounter Visit Diagnoses Not on filedocumented in this encounter
--- OUTSIDE RECORDS SUMMARY | 2022-09-21 09:03 | XMS_ITS | Encounter Summary ---
:1960 Author Organization [facility] Address [address] [place] [address] Care Team Providers Name Role Phone Unavailable Primary Care Provider Unavailable Encounter Details Date Type Department Care Team Description 02/20/2007 Hospital Encounter [facility]X [facility] Provider, Histor ical Social History Tobacco Use Types Packs/Day Years Used Date Smoking Tobacco: Never Assessed Sex Assigned at Date Recorded Female 07/10/2022 7:32 AM CDT documented as of this encounter Plan of Treatment Upcoming Encounters Date Type Specialty Care Team Description 10/10/2022 Office Visit Neurology Karin Ramachandran M.D., M.P.H. [address] [place], [place] [phone] (Wo rk) documented as of this encounter Visit Diagnoses Not on filedocumented in this encounter
--- OUTSIDE RECORDS SUMMARY | 2022-09-21 09:03 | XMS_ITS | Encounter Summary ---
:1960 Author Organization [facility] Address [address] [place] [address] Care Team Providers Name Role Phone Unavailable Primary Care Provider Unavailable Encounter Details Date Type Department Care Team Description 10/24/2007 Hospital Encounter HX [facility] Shannon Buitrago M.D. [address] [place] [address] (Wo rk) Social History Tobacco Use Types Packs/Day Years Used Date Smoking Tobacco: Never Assessed Sex Assigned at Date Recorded Female 07/10/2022 7:32 AM CDT documented as of this encounter Miscellaneous Notes Telephone Encounter - Conversion, Historical Provider Ser - 10/24/2007 12:00 AM CST [id number] Accepting this Rx will FAX it directly to the pharmacy. Thank You! Source: [facility] Document Id: [id number] Telephone Encounter - Chante Kenyon R.N. - 10/24/2007 12:00 AM WEATHERIZATION FIELD TECHNICIAN [id number] Prescription approved per RN refill protocol. Last visit: 09/19/07 Last 1 BP Readings: Date: BP: 09/19/2007 112/80 CAD/HTN and or CHF labs: CR 0.85 01/18/2006 POTASSIUM 3.8 01/18/2006 LDL 106 09/19/2007 TSH 1.87 09/19/2007 Source: [facility] Document Id: [id number] documented in this encounter Plan of Treatment Upcoming Encounters Date Type Specialty Care Team Description 10/10/2022 Office Visit Neurology Karin Ramachandran M.D., M.P.H. [address] [phone] (Wo rk) documented as of this encounter Visit Diagnoses Not on filedocumented in this encounter
--- OUTSIDE RECORDS SUMMARY | 2022-09-21 09:03 | XMS_ITS | Encounter Summary ---
:1960 Author Organization [facility] Address [address] [place] [address] Care Team Providers Name Role Phone Unavailable Primary Care Provider Unavailable Encounter Details Date Type Department Care Team Description 10/12/2008 Hospital Encounter [facility]X [facility]NM[facility] Shannon Barrett M.D. [address] [place] [address] (Wo rk) Social History Tobacco Use Types Packs/Day Years Used Date Smoking Tobacco: Never Assessed Sex Assigned at Date Recorded Female 07/10/2022 7:32 AM CDT documented as of this encounter Progress Notes Shannon Barrett M.D. - 10/12/2008 11:30 AM CST [id number] SUBJECTIVE: Zandra Lopez is an 48 year [...] notify me if there is changes. Source: [facility] Document Id: [id number] Electronically signed by Conversion, [facility] High Lift Operator [id number] at 04/29/2017 2:46 AM CDT documented in this encounter Miscellaneous Notes Miscellaneous - Shannon Barrett M.D. - 10/12/2008 11:30 AM CST [id number] Zandra Lopez [id number] [id number] October 13, 2008 Dear Ms. Zandra Taylor [...] questions or problems, please contact me at [phone] [facility]. Sincerely, (electronically signed to expedite delivery) Shannon Barrett M.D. INTERNAL MEDICINE Source: [facility] Document Id: [id number] Electronically signed by Conversion, [facility] High Lift Operator [id number] at 04/29/2017 2:46 AM CDT documented in this encounter Plan of Treatment Upcoming Encounters Date Type Specialty Care Team Description 10/10/2022 Office Visit Neurology Karin Ramachandran M.D., M.P.H. [address] [place], [place] [phone] (Wo rk) documented as of this encounter Visit Diagnoses Not on filedocumented in this encounter
--- OUTSIDE RECORDS SUMMARY | 2022-09-21 09:03 | XMS_ITS | Encounter Summary ---
:1960 Author Organization [facility] Address [address] [place] [address] Care Team Providers Name Role Phone Unavailable Primary Care Provider Unavailable Encounter Details Date Type Department Care Team Description 02/17/2008 Hospital Encounter HX [facility] Shannon Buitrago M.D. [address] [place] [address] (Wo rk) Social History Tobacco Use Types Packs/Day Years Used Date Smoking Tobacco: Never Assessed Sex Assigned at Date Recorded Female 07/10/2022 7:32 AM CDT documented as of this encounter Miscellaneous Notes Telephone Encounter - Conversion, Historical Provider Ser - 02/17/2008 12:00 AM CDT [id number] Last visit with pcp 08/31. Last refill was for 30 on 11/20/07. patient called and would like a refill. [facility] Document Id: [id number] documented in this encounter Plan of Treatment Upcoming Encounters Date Type Specialty Care Team Description 10/10/2022 Office Visit Neurology Karin Ramachandran M.D., M.P.H. [address] [place], [place] [phone] (Wo rk) documented as of this encounter Visit Diagnoses Not on filedocumented in this encounter
--- OUTSIDE RECORDS SUMMARY | 2022-09-21 09:03 | XMS_ITS | Encounter Summary ---
:1960 Author Organization [facility] Address [address] [place] [address] Care Team Providers Name Role Phone Unavailable [...] Visit Neurology Karin Ramachandran M.D., M.P.H. [address] [place], [place] [phone] (Wo rk) documented as of this encounter Visit Diagnoses Not on filedocumented in this encounter
--- OUTSIDE RECORDS SUMMARY | 2022-09-21 09:03 | XMS_ITS | Encounter Summary ---
:1960 Author Organization [facility] Address [address] [place] [address] Care Team Providers Name Role Phone Unavailable Primary Care Provider Unavailable Encounter Details Date Type Department Care Team Description 10/11/2008 Hospital Encounter [facility] Shannon Patton M.D. [address] [place], [place] [phone] (Wo rk) Social History Tobacco Use Types Packs/Day Years Used Date Smoking Tobacco: Never Assessed Sex Assigned at Date Recorded Female 07/10/2022 7:32 AM CDT documented as of this encounter Plan of Treatment Upcoming Encounters Date Type Specialty Care Team Description 10/10/2022 Office Visit Neurology Karin Ramachandran M.D., M.P.H. [address] [phone] (Wo rk) documented as of this encounter Visit Diagnoses Not on filedocumented in this encounter
--- OUTSIDE RECORDS SUMMARY | 2022-09-21 09:03 | XMS_ITS | Encounter Summary ---
:1960 Author Organization [facility] Address [address] [place] [address] Care Team Providers Name Role Phone Unavailable Primary Care Provider Unavailable Encounter Details Date Type Department Care Team Description 04/27/2008 Hospital Encounter HX [facility] RW[facility] INTERNMED Shannon Barrett M.D. [address] [place] [address] (Wo rk) Social History Tobacco Use Types Packs/Day Years Used Date Smoking Tobacco: Never Assessed Sex Assigned at Date Recorded Female 07/10/2022 7:32 AM CDT documented as of this encounter Progress Notes Shannon Barrett M.D. - 04/27/2008 4:30 PM CDT [id number] Comment: Clinical Program Director. SUBJECTIVE: Zandra Lopez is an 47 year [...] if she can stay on the Ambien retirement or if there is a better alternative [...] including the increased risks of DVT, PE, PA, and stroke. We discussed the probable increased [...] time. PCN/SS/jir HPI ROS Physical Exam Source: [facility] Document Id: [id number] Electronically signed by Conversion, [facility] Clinical Program Director [id number] at 04/29/2017 4:57 AM CDT documented in this encounter Miscellaneous Notes Miscellaneous - Shannon Barrett M.D. - 04/27/2008 4:30 PM CDT [id number] Zandra Lopez [id number] [phone] June 07, 2008 Dear Ms. Zandra Lopez: [...] questions or problems, please contact me at [phone] in Internal Medicine. Sincerely, (electronically signed to expedite delivery) Shannon Barrett M.D. INTERNAL MEDICINE Source: [facility] Document Id: [id number] Electronically signed by Conversion, [facility] Clinical Program Director [id number] at 04/29/2017 4:57 AM CDT documented in this encounter Plan of Treatment Upcoming Encounters Date Type Specialty Care Team Description 10/10/2022 Office Visit Neurology Karin Ramachandran M.D., M.P.H. [address] [phone] (Wo rk) documented as of this encounter Visit Diagnoses Not on filedocumented in this encounter
--- OUTSIDE RECORDS SUMMARY | 2022-09-21 09:03 | XMS_ITS | Encounter Summary ---
:1960 Author Organization [facility] Address [address] [place] [address] Care Team Providers Name Role Phone Unavailable Primary Care Provider Unavailable Encounter Details Date Type Department Care Team Description 03/05/2007 Hospital Encounter HX NO MAPPING Jarrod Persaud M.D. [address] [place], [place] [address] Social History Tobacco Use Types Packs/Day Years Used Date Smoking Tobacco: Never Assessed Sex Assigned at Date Recorded Female 07/10/2022 7:32 AM CDT documented as of this encounter Plan of Treatment Upcoming Encounters Date Type Specialty Care Team Description 10/10/2022 Office Visit Neurology Karin Ramachandran M.D., M.P.H. [address], [place] [phone] (Wo rk) documented as of this encounter Visit Diagnoses Not on filedocumented in this encounter
--- OUTSIDE RECORDS SUMMARY | 2022-09-21 09:03 | XMS_ITS | Encounter Summary ---
:1960 Author Organization [facility] Address [address] [place] [address] Care Team Providers Name Role Phone Unavailable Primary Care Provider Unavailable Encounter Details Date Type Department Care Team Description 09/25/2007 Hospital Encounter [facility]X [facility] XRAY Provider, Histori darlin Social History Tobacco Use Types Packs/Day Years Used Date Smoking Tobacco: Never Assessed Sex Assigned at Date Recorded Female 07/10/2022 7:32 AM CDT documented as of this encounter Plan of Treatment Upcoming Encounters Date Type Specialty Care Team Description 10/10/2022 Office Visit Neurology Karin Ramachandran M.D., M.P.H. [address] [place], [place] [phone] (Wo rk) documented as of this encounter Visit Diagnoses Not on filedocumented in this encounter
--- OUTSIDE RECORDS SUMMARY | 2022-09-21 09:03 | XMS_ITS | Encounter Summary ---
:1960 Author Organization [facility] Address [address] [place] [address] Care Team Providers Name Role Phone Unavailable [...] Visit Neurology Karin Ramachandran M.D., M.P.H. [address], [place] [phone] (Wo rk) documented as of this encounter Visit Diagnoses Not on filedocumented in this encounter
--- OUTSIDE RECORDS SUMMARY | 2022-09-21 09:03 | XMS_ITS | Encounter Summary ---
:[address] [facility] Address [address] [place] [address] Care Team Providers Name Role Phone Unavailable Primary Care Provider Unavailable Encounter Details Date Type Department Care Team Description 09/25/2007 Hospital Encounter HX NO MAPPING Shannon Barrett M.D. [address] [place] [phone] (Wo rk) Social History Tobacco Use Types Packs/Day Years Used Date Smoking Tobacco: Never Assessed Sex Assigned at Date Recorded Female 07/10/2022 7:32 AM CDT documented as of this encounter Plan of Treatment Upcoming Encounters Date Type Specialty Care Team Description 10/10/2022 Office Visit Neurology Karin Ramachandran M.D., M.P.H. [address] [place], [place] [phone] (Wo rk) documented as of this encounter Visit Diagnoses Not on filedocumented in this encounter
--- OUTSIDE RECORDS SUMMARY | 2022-09-21 09:03 | XMS_ITS | Encounter Summary ---
:1960 Author Organization [facility] Address [address] [place] [address] Care Team Providers Name Role Phone Unavailable Primary Care Provider Unavailable Encounter Details Date Type Department Care Team Description 08/12/2008 Hospital Encounter HX [facility] Shannon Buitrago M.D. [address] [place] [phone] (Wo rk) Social History Tobacco Use Types Packs/Day Years Used Date Smoking Tobacco: Never Assessed Sex Assigned at Date Recorded Female 07/10/2022 7:32 AM CDT documented as of this encounter Miscellaneous Notes Miscellaneous - Conversion, Historical Provider Ser - 08/12/2008 12:00 AM CDT [id number] Zandra Lopez [id number] [id number] August 13, 2008 Dear Zandra Lopez APPOINTMENT [...] future. You may call our office at [phone] or to schedule a visit. Please disregard this notice if you have already made an appointment. Sincerely, Sera Ramos [facility] Source: [facility] Document Id: [id number] Telephone Encounter - Conversion, Historical Provider Ser - 08/12/2008 12:00 AM CDT [id number] Last visit with pcp 05/02 [facility]: [facility] Document Id: [id number] Telephone Encounter - Shannon Barrett M.D. - 08/12/2008 12:00 AM CDT [id number] Needs to be seen prior to next refill. Source: [facility] Document Id: [id number] Electronically signed by Conversion, [facility] Stock Letterer [id number] at 04/28/2017 11:25 PM CDT Telephone Encounter - Conversion, Historical Provider Ser - 08/12/2008 12:00 AM CDT [id number] Letter out Source: [facility] Document Id: [id number] documented in this encounter Plan of Treatment Upcoming Encounters Date Type Specialty Care Team Description 10/10/2022 Office Visit Neurology Karin Ramachandran M.D., M.P.H. [address] [phone] (Wo rk) documented as of this encounter Visit Diagnoses Not on filedocumented in this encounter
--- OUTSIDE RECORDS SUMMARY | 2022-09-21 09:03 | XMS_ITS | Encounter Summary ---
:1960 Author Organization [facility] Address [address] [place] [address] Care Team Providers Name Role Phone Unavailable Primary Care Provider Unavailable Encounter Details Date Type Department Care Team Description 09/12/2007 Hospital Encounter HX [facility] Shannon Garcia M.D. [address] [place] [phone] (Wo rk) Social History Tobacco Use Types Packs/Day Years Used Date Smoking Tobacco: Never Assessed Sex Assigned at Date Recorded Female 07/10/2022 7:32 AM CDT documented as of this encounter Miscellaneous Notes Telephone Encounter - Shannon Barrett M.D. - 09/12/2007 12:00 AM CDT [id number] Needs to be seen prior to next refill. Source: [facility] Document Id: [id number] Electronically signed by Conversion, [facility] Train Brakeman [id number] at 04/29/2017 2:00 PM CDT Telephone Encounter - Alyssa Evans R.N. - 09/12/2007 12:00 AM CDT [id number] Patient calls requesting refill for Actonel. Source: [facility] Document Id: [id number] Electronically signed by Conversion, [facility] Train Brakeman [id number] at 04/29/2017 2:00 PM CDT Telephone Encounter - Nati Desouza R.N. - 09/12/2007 12:00 AM CDT [id number] Unable to approve medication per the RN refill protocol due to: - overdue labs Last office visit was 01/16/07 per dictation to return in 4 weeks. Last 1 BP Readings: Date: BP: 03/05/2007 112/70 CAD/HTN and or CHF labs: CR 0.85 01/18/2006 POTASSIUM 3.8 01/18/2006 LDL 96 11/16/2002 TSH 1.16 11/26/2005 Source: [facility] Document Id: [id number] Electronically signed by Conversion, [facility] Train Brakeman [id number] at 04/29/2017 2:00 PM CDT documented in this encounter Plan of Treatment Upcoming Encounters Date Type Specialty Care Team Description 10/10/2022 Office Visit Neurology Karin Ramachandran M.D., M.P.H. [address] [phone] (Wo rk) documented as of this encounter Visit Diagnoses Not on filedocumented in this encounter
--- OUTSIDE RECORDS SUMMARY | 2022-09-21 09:03 | XMS_ITS | Encounter Summary ---
:1960 Author Organization [facility] Address [address] [place] [address] Care Team Providers Name Role Phone Unavailable Primary Care Provider Unavailable Encounter Details Date Type Department Care Team Description 03/09/2009 Hospital Encounter HX [facility] Shannon Buitrago M.D. [address] [place] [phone] (Wo rk) Social History Tobacco Use Types Packs/Day Years Used Date Smoking Tobacco: Never Assessed Sex Assigned at Date Recorded Female 07/10/2022 7:32 AM CDT documented as of this encounter Miscellaneous Notes Telephone Encounter - Conversion, Historical Provider Ser - 03/09/2009 12:00 AM CDT [id number] Last visit with pcp 10/02, Source: [facility] Document Id: [id number] documented in this encounter Plan of Treatment Upcoming Encounters Date Type Specialty Care Team Description 10/10/2022 Office Visit Neurology Karin Ramachandran M.D., M.P.H. [address] [place], [place] [phone] (Wo rk) documented as of this encounter Visit Diagnoses Not on filedocumented in this encounter
--- OUTSIDE RECORDS SUMMARY | 2022-09-21 09:03 | XMS_ITS | Encounter Summary ---
:1960 Author Organization [facility] Address [address] [place] [address] Care Team Providers Name Role Phone Unavailable Primary Care Provider Unavailable Encounter Details Date Type Department Care Team Description 03/20/2007 Hospital Encounter HX [facility] Lopez Coles ra REvansNEvans [address] [place], [place] [phone] Social History Tobacco Use Types Packs/Day Years Used Date Smoking Tobacco: Never Assessed Sex Assigned at Date Recorded Female 07/10/2022 7:32 AM CDT documented as of this encounter Miscellaneous Notes Telephone Encounter - Zandra Coles R.N. - 03/20/2007 12:00 AM CDT [id number] Refill for percocet. Needs signed copy. Source: [facility] Document Id: [id number] Electronically signed by Conversion, [facility] R Programmer [id number] at 04/29/2017 10:22 AM CDT Telephone Encounter - Carrillo Persaud M.D. - 03/20/2007 12:00 AM CDT [id number] Done RR Source: [facility] Document Id: [id number] Electronically signed by Conversion, [facility] R Programmer [id number] at 04/29/2017 10:22 AM CDT documented in this encounter Plan of Treatment Upcoming Encounters Date Type Specialty Care Team Description 10/10/2022 Office Visit Neurology Karin Ramachandran M.D., M.P.H. [address] [place], [place] [phone] ([facility]) documented as of this encounter Visit Diagnoses Not on filedocumented in this encounter
--- OUTSIDE RECORDS SUMMARY | 2022-09-21 09:03 | XMS_ITS | Encounter Summary ---
:1960 Author Organization [facility] Address [address] [place] [address] Care Team Providers Name Role Phone Unavailable Primary Care Provider Unavailable Encounter Details Date Type Department Care Team Description 03/05/2007 Hospital Encounter HX [facility] Nishant Hughes, P.T. [address] [place], [place] [phone] Social History Tobacco Use Types Packs/Day Years Used Date Smoking Tobacco: Never Assessed Sex Assigned at Date Recorded Female 07/10/2022 7:32 AM CDT documented as of this encounter Progress Notes Chelo Hughes, P.Mikey. - 03/05/2007 8:30 AM CDT [id number] PHYSICAL THERAPY PRE-OPERATIVE ASSESSMENT AND EDUCATION Patient [...] post operatively per rotator cuff protocol in [place]. Chelo Hughes, PT SUPERVISOR SPEECH PRESENT: MARLENA MULTIDISCIPLINARY PATIENT / FAMILY EDUCATION [...] Demonstrated ability, Verbalized recall / understanding Source: [facility] Document Id: [id number] Electronically signed by Gabriela [facility] Print Shop Assistant [id number] at 04/29/2017 10:22 AM CDT documented in this encounter Plan of Treatment Upcoming Encounters Date Type Specialty Care Team Description 10/10/2022 Office Visit Neurology Karin Ramachandran M.D., M.P.H. [address] [place] [phone] (Wo rk) documented as of this encounter Visit Diagnoses Not on filedocumented in this encounter
--- OUTSIDE RECORDS SUMMARY | 2022-09-21 09:04 | XMS_ITS | Encounter Summary ---
:1960 Author Organization [facility] Address [address] [place] [address] Care Team Providers Name Role Phone Unavailable Primary Care Provider Unavailable Encounter Details Date Type Department Care Team Description 12/23/2006 Hospital Encounter HX [facility] Shannon Buitrago M.D. [address] [place] [address] (Wo rk) Social History Tobacco Use Types Packs/Day Years Used Date Smoking Tobacco: Never Assessed Sex Assigned at Date Recorded Female 07/10/2022 7:32 AM CDT documented as of this encounter Miscellaneous Notes Telephone Encounter - Conversion, Historical Provider Ser - 12/23/2006 12:00 AM CST [id number] Chould you do this in pcp's absence Source: [facility] Document Id: [id number] Telephone Encounter - Conversion, Historical Provider Ser - 12/23/2006 12:00 AM CST [id number] Accepting this rx will be faxed directly [...] LDL 96 11/16/2002 HDL 87 11/16/2002 Source: [facility] Document Id: [id number] documented in this encounter Plan of Treatment Upcoming Encounters Date Type Specialty Care Team Description 10/10/2022 Office Visit Neurology Karin Ramachandran M.D., M.P.H. [address] [phone] (Wo rk) documented as of this encounter Visit Diagnoses Not on filedocumented in this encounter
--- OUTSIDE RECORDS SUMMARY | 2022-09-21 09:04 | XMS_ITS | Encounter Summary ---
:1960 Author Organization [facility] Address [address] [place] [address] Care Team Providers Name Role Phone Unavailable Primary Care Provider Unavailable Encounter Details Date Type Department Care Team Description 02/06/2007 Hospital Encounter [facility] XRAY Provider, Histori darlin Social History Tobacco Use Types Packs/Day Years Used Date Smoking Tobacco: Never Assessed Sex Assigned at Date Recorded Female 07/10/2022 7:32 AM CDT documented as of this encounter Plan of Treatment Upcoming Encounters Date Type Specialty Care Team Description 10/10/2022 Office Visit Neurology Karin Ramachandran M.D., M.P.H. [address] [place], [place] [phone] (Wo rk) documented as of this encounter Visit Diagnoses Not on filedocumented in this encounter
--- OUTSIDE RECORDS SUMMARY | 2022-09-21 09:04 | XMS_ITS | Encounter Summary ---
:1960 Author Organization [facility] Address [address] [place] [address] Care Team Providers Name Role Phone Unavailable Primary Care Provider Unavailable Encounter Details Date Type Department Care Team Description 02/06/2007 Hospital Encounter HX NO MAPPING Jarrod Persaud M.D. [address] [place], [place] [address] Social History Tobacco Use Types Packs/Day Years Used Date Smoking Tobacco: Never Assessed Sex Assigned at Date Recorded Female 07/10/2022 7:32 AM CDT documented as of this encounter Plan of Treatment Upcoming Encounters Date Type Specialty Care Team Description 10/10/2022 Office Visit Neurology Karin Ramachandran M.D., M.P.H. [address], [place] [phone] (Wo rk) documented as of this encounter Visit Diagnoses Not on filedocumented in this encounter
--- OUTSIDE RECORDS SUMMARY | 2022-09-21 09:04 | XMS_ITS | Encounter Summary ---
:1960 Author Organization [facility] Address [address] [place] [address] Care Team Providers Name Role Phone Unavailable Primary Care Provider Unavailable Encounter Details Date Type Department Care Team Description 01/25/2006 Hospital Encounter HX NO MAPPING Shannon Barrett M.D. [address] [place] [phone] (Wo rk) Social History Tobacco Use Types Packs/Day Years Used Date Smoking Tobacco: Never Assessed Sex Assigned at Date Recorded Female 07/10/2022 7:32 AM CDT documented as of this encounter Plan of Treatment Upcoming Encounters Date Type Specialty Care Team Description 10/10/2022 Office Visit Neurology Karin Ramachandran M.D., M.P.H. [address] [place], [place] [phone] (Wo rk) documented as of this encounter Visit Diagnoses Not on filedocumented in this encounter
--- OUTSIDE RECORDS SUMMARY | 2022-09-21 09:04 | XMS_ITS | Encounter Summary ---
:1960 Author Organization [facility] Address [address] [place] [address] Care Team Providers Name Role Phone Unavailable Primary Care Provider Unavailable Encounter Details Date Type Department Care Team Description 01/03/2007 Hospital Encounter HX NO MAPPING Shannon Barrett M.D. [address] [place] [phone] (Wo rk) Social History Tobacco Use Types Packs/Day Years Used Date Smoking Tobacco: Never Assessed Sex Assigned at Date Recorded Female 07/10/2022 7:32 AM CDT documented as of this encounter Plan of Treatment Upcoming Encounters Date Type Specialty Care Team Description 10/10/2022 Office Visit Neurology Karin Ramachandran M.D., M.P.H. [address] [place], [place] [phone] (Wo rk) documented as of this encounter Visit Diagnoses Not on filedocumented in this encounter
--- OUTSIDE RECORDS SUMMARY | 2022-09-21 09:04 | XMS_ITS | Encounter Summary ---
:1960 Author Organization [facility] Address [address] [place] [address] Care Team Providers Name Role Phone Unavailable Primary Care Provider Unavailable Encounter Details Date Type Department Care Team Description 01/03/2007 Hospital Encounter [facility] XRAY Provider, Histori darlin Social History Tobacco Use Types Packs/Day Years Used Date Smoking Tobacco: Never Assessed Sex Assigned at Date Recorded Female 07/10/2022 7:32 AM CDT documented as of this encounter Plan of Treatment Upcoming Encounters Date Type Specialty Care Team Description 10/10/2022 Office Visit Neurology Karin Ramachandran M.D., M.P.H. [address] [place], [place] [phone] (Wo rk) documented as of this encounter Visit Diagnoses Not on filedocumented in this encounter
--- OUTSIDE RECORDS SUMMARY | 2022-09-21 09:04 | XMS_ITS | Encounter Summary ---
:1960 Author Organization [facility] Address [address] [place] [address] Care Team Providers Name Role Phone Unavailable Primary Care Provider Unavailable Encounter Details Date Type Department Care Team Description 01/25/2006 Hospital Encounter HX [facility] XRAY Provider, Histori darlin Social History Tobacco Use Types Packs/Day Years Used Date Smoking Tobacco: Never Assessed Sex Assigned at Date Recorded Female 07/10/2022 7:32 AM CDT documented as of this encounter Miscellaneous Notes Miscellaneous - Shannon Barrett M.D. - 01/25/2006 9:45 AM CST [id number] Zandra Lopez [id number] [address] [phone] February 04, 2006 Dear Zandra Lopez, IMAGING RESULTS: The results of your recent bone density/DEXA Scan were ABNORMAL -indicating thinning of the bones.I recommend that you consider Medications to prevent further loss of bone. If you have any further questions or problems, please contact our office. Sincerely, Shannon Barrett M.D. INTERNAL MEDICINE Source: [facility] Document Id: [id number] Electronically signed by Conversion, [facility] Director Trust [id number] at 04/29/2017 6:39 PM CDT documented in this encounter Plan of Treatment Upcoming Encounters Date Type Specialty Care Team Description 10/10/2022 Office Visit Neurology Karin Ramachandran M.D., M.P.H. [address], [place] [phone] (Wo rk) documented as of this encounter Visit Diagnoses Not on filedocumented in this encounter
--- OUTSIDE RECORDS SUMMARY | 2022-09-21 09:04 | XMS_ITS | Encounter Summary ---
:1960 Author Organization [facility] Address [address] [place] [address] Care Team Providers Name Role Phone Unavailable Primary Care Provider Unavailable Encounter Details Date Type Department Care Team Description 03/27/2006 Hospital Encounter HX [facility] Shannon Buitrago M.D. [address] [facility] [place] [address] (Wo rk) Social History Tobacco Use Types Packs/Day Years Used Date Smoking Tobacco: Never Assessed Sex Assigned at Date Recorded Female 07/10/2022 7:32 AM CDT documented as of this encounter Miscellaneous Notes Telephone Encounter - Conversion, Historical Provider Ser - 03/27/2006 12:00 AM CDT [id number] patient called wondering about getting her period. Hasn't had one for over two years and labs state shes in menopause. Got period. Was wondering if this was normal. Gave her the number for red andasked her to call and talk to kiln charger. Source: [facility] Document Id: [id number] documented in this encounter Plan of Treatment Upcoming Encounters Date Type Specialty Care Team Description 10/10/2022 Office Visit Neurology Karin Ramachandran M.D., M.P.H. [address] [place], [place] [phone] (Wo rk) documented as of this encounter Visit Diagnoses Not on filedocumented in this encounter
--- OUTSIDE RECORDS SUMMARY | 2022-09-21 09:04 | XMS_ITS | Encounter Summary ---
:1960 Author Organization [facility] Address [address] [place] [address] Care Team Providers Name Role Phone Unavailable [...] Provider Ser - 11/06/2006 1:30 PM CST [id number] HISTORY & PHYSICAL CC: Chief Complaint Patient [...] if any concerns. Case Hauser M.D. Source: [facility] RWHXTRANSXRTFSYS Document Id: [id number] documented in this encounter Plan of Treatment Upcoming Encounters Date Type Specialty Care Team Description 10/10/2022 Office Visit Neurology Karin Ramachandran M.D., M.P.H. [address] [place], [place] [phone] (Wo rk) documented as of this encounter Visit Diagnoses Not on filedocumented in this encounter
--- OUTSIDE RECORDS SUMMARY | 2022-09-21 09:04 | XMS_ITS | Encounter Summary ---
:1960 Author Organization [facility] Address [address] [place] [address] Care Team Providers Name Role Phone Unavailable Primary Care Provider Unavailable Encounter Details Date Type Department Care Team Description 04/09/2006 Hospital Encounter HX [facility] Shannon Buitrago M.D. [address] [place] [address] (Wo rk) Social History Tobacco Use Types Packs/Day Years Used Date Smoking Tobacco: Never Assessed Sex Assigned at Date Recorded Female 07/10/2022 7:32 AM CDT documented as of this encounter Miscellaneous Notes Telephone Encounter - Joseph Kendrick, L.P.N. - 04/09/2006 12:00 AM CDT [id number] Pt. Calling and wanting rx for the new quit smoking drug she does not know the name, but would like it faxed to [facility] in [place], if any questions plz call [phone] Source: [facility] Document Id: [id number] documented in this encounter Plan of Treatment Upcoming Encounters Date Type Specialty Care Team Description 10/10/2022 Office Visit Neurology Karin Ramachandran M.D., M.P.H. [address] [place], [place] [phone] (Wo rk) documented as of this encounter Visit Diagnoses Not on filedocumented in this encounter
--- OUTSIDE RECORDS SUMMARY | 2022-09-21 09:04 | XMS_ITS | Encounter Summary ---
:[address] [facility] Address [address] [place] [address] Care Team Providers Name Role Phone Unavailable Primary Care Provider Unavailable Encounter Details Date Type Department Care Team Description 02/04/2007 Hospital Encounter HX [facility] Carrillo Persaud M.D. [address] [place], [place] [address] Social History Tobacco Use Types Packs/Day Years Used Date Smoking Tobacco: Never Assessed Sex Assigned at Date Recorded Female 07/10/2022 7:32 AM CDT documented as of this encounter Progress Notes Carrillo Persaud M.D. - 02/04/2007 2:00 PM CDT [id number] CLINIC ENCOUNTER SUBJECTIVE: Zandra took a hard [...] intervention. Carrillo Persaud M.D. Ursula cc: Source: [facility] Document Id: [id number] Electronically signed by Gabriela [facility] Packaging Line Operator [id number] at 04/29/2017 1:21 PM CDT documented in this encounter Plan of Treatment Upcoming Encounters Date Type Specialty Care Team Description 10/10/2022 Office Visit Neurology Karin Ramachandran M.D., M.P.H. [address] [phone] (Wo rk) documented as of this encounter Visit Diagnoses Not on filedocumented in this encounter
--- OUTSIDE RECORDS SUMMARY | 2022-09-21 09:04 | XMS_ITS | Encounter Summary ---
:1960 Author Organization [facility] Address [address] [place] [address] Care Team Providers Name Role Phone Unavailable Primary Care Provider Unavailable Encounter Details Date Type Department Care Team Description 01/16/2007 Hospital Encounter HX [facility] INTERNMED Shannon Barrett M.D. [address] [place] [address] (Wo rk) Social History Tobacco Use Types Packs/Day Years Used Date Smoking Tobacco: Never Assessed Sex Assigned at Date Recorded Female 07/10/2022 7:32 AM CDT documented as of this encounter Progress Notes Shannon Barrett M.D. - 01/16/2007 10:00 AM CST [id number] Comment: accounts collector SUBJECTIVE: Zandra Lopez is a 46 year [...] intact, reflexes normal, Romberg negative PLEASE INSERT ROTOR BALANCER HERE. Psych: Patient appears stated age. Is [...] by herself. Patient expresses an understanding. Source: [facility] RWHXTRANSXRTFSYS Document Id: [id number] Electronically signed by Gabriela [facility] Log[employer] Loss Prevention Manager [id number] at 04/29/2017 10:52 AM CDT documented in this encounter Plan of Treatment Upcoming Encounters Date Type Specialty Care Team Description 10/10/2022 Office Visit Neurology Karin Ramachandran M.D., M.P.H. [address] [place] [phone] (Wo rk) documented as of this encounter Visit Diagnoses Not on filedocumented in this encounter
--- OUTSIDE RECORDS SUMMARY | 2022-09-21 09:04 | XMS_ITS | Encounter Summary ---
:1960 Author Organization [facility] Address [address] [place] [address] Care Team Providers Name Role Phone Unavailable Primary Care Provider Unavailable Encounter Details Date Type Department Care Team Description 01/25/2006 Hospital Encounter [facility] XRAY Provider, Histori darlin Social History Tobacco Use Types Packs/Day Years Used Date Smoking Tobacco: Never Assessed Sex Assigned at Date Recorded Female 07/10/2022 7:32 AM CDT documented as of this encounter Plan of Treatment Upcoming Encounters Date Type Specialty Care Team Description 10/10/2022 Office Visit Neurology Karin Ramachandran M.D., M.P.H. [address] [place], [place] [phone] (Wo rk) documented as of this encounter Visit Diagnoses Not on filedocumented in this encounter
--- OUTSIDE RECORDS SUMMARY | 2022-09-21 09:04 | XMS_ITS | Encounter Summary ---
:1960 Author Organization [facility] Address [address] [place] [address] Care Team Providers Name Role Phone Unavailable Primary Care Provider Unavailable Encounter Details Date Type Department Care Team Description 03/13/2006 Hospital Encounter HX [facility] Shannon Buitrago M.D. [address] [place] [address] (Wo rk) Social History Tobacco Use Types Packs/Day Years Used Date Smoking Tobacco: Never Assessed Sex Assigned at Date Recorded Female 07/10/2022 7:32 AM CDT documented as of this encounter Miscellaneous Notes Telephone Encounter - Conversion, Historical Provider Ser - 03/13/2006 12:00 AM CDT [id number] Pt called, she was wondering if you could write letter explaining the bone density results. She was given results during her last appt but wasn't quite sure if she has osteoporsis or if she is taking medication to prevent it. Thanks Source: [facility] RWHXTRANSXRTFSYS Document Id: [id number] documented in this encounter Plan of Treatment Upcoming Encounters Date Type Specialty Care Team Description 10/10/2022 Office Visit Neurology Karin Ramachandran M.D., M.P.H. [address], [place] [phone] (Wo rk) documented as of this encounter Visit Diagnoses Not on filedocumented in this encounter
--- OUTSIDE RECORDS SUMMARY | 2022-09-21 09:04 | XMS_ITS | Encounter Summary ---
:1960 Author Organization [facility] Address [address] [place] [address] Care Team Providers Name Role Phone Unavailable Primary Care Provider Unavailable Encounter Details Date Type Department Care Team Description 02/05/[address] [facility] INTERNMED Shannon Barrett M.D. [address] [place] [address] (Wo rk) Social History Tobacco Use Types Packs/Day Years Used Date Smoking Tobacco: Never Assessed Sex Assigned at Date Recorded Female 07/10/2022 7:32 AM CDT documented as of this encounter Progress Notes Shannon Barrett M.D. - 02/05/2006 11:30 AM CST [id number] SUBJECTIVE: Patient here for a physical. 1)Currently concerned about L hip pain x several months. Denies trauma to hip. Pain worse when getting up in the am--describes it as a stiffness. No numbness or tingling in leg. 2)C/O burning sensation in throatx 2months. Has used OTC Zantac 75 mg po daily with no relief [id number]. Burning not worse with eating, drinking or [...] hip. No H/O back pain or discomfort. 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 No dizziness, seizures, tremors, numbness, [...] external hemmorhoid between 3 and 6 oclock. SWIMMING POOL SERVICE TECHNICIAN: Alert and oriented x3. Cranial nerves intact. [...] her labs to check her galactorrhea. Source: [facility] RWHXTRANSXRTFSYS Document Id: [id number] Electronically signed by Gabriela, [facility] [id number] at 04/29/2017 6:39 PM CDT documented in this encounter Plan of Treatment Upcoming Encounters Date Type Specialty Care Team Description 10/10/2022 Office Visit Neurology Karin Ramachandran M.D., M.P.H. [address] [phone] (Wo rk) documented as of this encounter Visit Diagnoses Not on filedocumented in this encounter
--- OUTSIDE RECORDS SUMMARY | 2022-09-21 09:04 | XMS_ITS | Encounter Summary ---
:1960 Author Organization [facility] Address [address] [place] [address] Care Team Providers Name Role Phone Unavailable Primary Care Provider Unavailable Encounter Details Date Type Department Care Team Description 01/02/2007 Hospital Encounter HX [facility] INTERNMED Shannon Barrett M.D. [address] [place] [address] (Wo rk) Social History Tobacco Use Types Packs/Day Years Used Date Smoking Tobacco: Never Assessed Sex Assigned at Date Recorded Female 07/10/2022 7:32 AM CDT documented as of this encounter Progress Notes Shannon Barrett M.D. - 01/02/2007 3:30 PM CST [id number] Comment: Public Speaker SUBJECTIVE: Zandra Lopez is a 46 year [...] anxiety disorder associated with sleep problems. Source: [facility] RWHXTRANSXRTFSYS Document Id: [id number] documented in this encounter Plan of Treatment Upcoming Encounters Date Type Specialty Care Team Description 10/10/2022 Office Visit Neurology Karin Ramachandran M.D., M.P.H. [address] [phone] (Wo rk) documented as of this encounter Visit Diagnoses Not on filedocumented in this encounter
--- OUTSIDE RECORDS SUMMARY | 2022-09-21 09:05 | XMS_ITS | Encounter Summary ---
:1960 Author Organization [facility] Address [address] [place] [address] Care Team Providers Name Role Phone Unavailable Primary Care Provider Unavailable Encounter Details Date Type Department Care Team Description 01/18/2006 Hospital Encounter [facility] Shannon Barrett M.D. [address] [place] [address] (Wo rk) Social History Tobacco Use Types Packs/Day Years Used Date Smoking Tobacco: Never Assessed Sex Assigned at Date Recorded Female 07/10/2022 7:32 AM CDT documented as of this encounter Progress Notes Shannon Barrett M.D. - 01/18/2006 10:00 AM CST [id number] Comment: Tool Room Supervisor SUBJECTIVE: Zandra Lopez is an 45 year [...] and various medications. Patient expresses understanding. Source: [facility] RWMCHXTRANSXRTFSYS Document Id: [id number] Electronically signed by Gabriela [facility] Tool Room Supervisor [id number] at 04/29/2017 2:33 PM CDT documented in this encounter Plan of Treatment Upcoming Encounters Date Type Specialty Care Team Description 10/10/2022 Office Visit Neurology Karin Ramachandran M.D., M.P.H. [address] [phone] (Wo rk) documented as of this encounter Visit Diagnoses Not on filedocumented in this encounter
--- OUTSIDE RECORDS SUMMARY | 2022-09-21 09:05 | XMS_ITS | Encounter Summary ---
:1960 Author Organization [facility] Address [address] [place] [address] Care Team Providers Name Role Phone Unavailable [...] Neurology Karin Ramachandran M.D., M.P.H. [address] [place], [place] [phone] (Wo rk) documented as of this encounter Visit Diagnoses Not on filedocumented in this encounter
--- OUTSIDE RECORDS SUMMARY | 2022-09-21 09:05 | XMS_ITS | Encounter Summary ---
:1960 Author Organization [facility] Address [address] [place] [address] Care Team Providers Name Role Phone Unavailable Primary Care Provider Unavailable Encounter Details Date Type Department Care Team Description 08/06/2005 Hospital Encounter HX [facility] Shannon Buitrago M.D. [address] [place] [address] (Wo rk) Social History Tobacco Use Types Packs/Day Years Used Date Smoking Tobacco: Never Assessed Sex Assigned at Date Recorded Female 07/10/2022 7:32 AM CDT documented as of this encounter Miscellaneous Notes Telephone Encounter - Conversion, Historical Provider Ser - 08/06/2005 12:00 AM CDT [id number] last visit 11/07/04 Last 1 BP Readings: Date: BP: 11/07/2004 132/84 CAD/HTN and or CHF labs: CR 0.64 11/07/2004 POTASSIUM 4.4 11/07/2004 TSH 1.11 11/07/2004 Source[facility] Document Id: [id number] documented in this encounter Plan of Treatment Upcoming Encounters Date Type Specialty Care Team Description 10/10/2022 Office Visit Neurology Karin Ramachandran M.D., M.P.H. [address] [place], [place] [phone] (Wo rk) documented as of this encounter Visit Diagnoses Not on filedocumented in this encounter
--- OUTSIDE RECORDS SUMMARY | 2022-09-21 09:05 | XMS_ITS | Encounter Summary ---
:1960 Author Organization [facility] Address [address] [place] [address] Care Team Providers Name Role Phone Unavailable Primary Care Provider Unavailable Encounter Details Date Type Department Care Team Description 04/06/2003 Hospital Encounter HX [facility] Carrillo Charles M.D. [address] [place], [place] [address] Social History Tobacco Use Types Packs/Day Years Used Date Smoking Tobacco: Never Assessed Sex Assigned at Date Recorded Female 07/10/2022 7:32 AM CDT documented as of this encounter Progress Notes Conversion, Historical Provider Ser - 04/06/2003 3:30 PM CDT [id number] Addended by: IZZY DRAKE on: 04/07/2003,3:27 PM [...] basis. Carrillo Persaud M.D./mpD: 04/06/2003T: 04/07/2003 Source: [facility] RWHXTRANSXSYS Document Id: [id number] documented in this encounter Plan of Treatment Upcoming Encounters Date Type Specialty Care Team Description 10/10/2022 Office Visit Neurology Karin Ramachandran M.D., M.P.H. [address] [phone] ([facility]) documented as of this encounter Visit Diagnoses Not on filedocumented in this encounter
--- OUTSIDE RECORDS SUMMARY | 2022-09-21 09:05 | XMS_ITS | Encounter Summary ---
:1960 Author Organization [facility] Address [address] [place] [address] Care Team Providers Name Role Phone Unavailable Primary Care Provider Unavailable Encounter Details Date Type Department Care Team Description 05/21/2003 Hospital Encounter HX NO MAPPING Mike Franklin M.D. [address] [facility] [place] [address] (Wo rk) Social History Tobacco Use Types Packs/Day Years Used Date Smoking Tobacco: Never Assessed Sex Assigned at Date Recorded Female 07/10/2022 7:32 AM CDT documented as of this encounter Plan of Treatment Upcoming Encounters Date Type Specialty Care Team Description 10/10/2022 Office Visit Neurology Karin Ramachandran M.D., M.P.H. [address] [place], [place] [phone] (Wo rk) documented as of this encounter Visit Diagnoses Not on filedocumented in this encounter
--- OUTSIDE RECORDS SUMMARY | 2022-09-21 09:05 | XMS_ITS | Encounter Summary ---
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 I will be leaving the [facility] December 17, 2003. The [facility] will continue to be staffed by Libra Starks DO and Shannon Barrett MD. In addition, we are fortunate to have JAGUAR Crowe on our staff. The [facility] continues to recruit another physician. Any questions you may have regarding refills, problems, etc., please call and speak to our well-trained nursing staff. It has been a pleasure being part of your health care. Sincerely, JAGUAR Gates Source: [facility] Document Id: [id number] documented in this encounter Plan of Treatment Upcoming Encounters Date Type Specialty Care Team Description 10/10/2022 Office Visit Neurology Karin Ramachandran M.D., M.P.H. [address] [place], [place] [phone] (Wo rk) documented as of this encounter Visit Diagnoses Not on filedocumented in this encounter
--- OUTSIDE RECORDS SUMMARY | 2022-09-21 09:05 | XMS_ITS | Encounter Summary ---
:1960 Author Organization [facility] Address [address] [place] [address] Care Team Providers Name Role Phone Unavailable Primary Care Provider Unavailable Encounter Details Date Type Department Care Team Description 08/10/2005 Hospital Encounter HX [facility] Shannon Buitrago M.D. [address] [place] [address] (Wo dianne) Social History Tobacco Use Types Packs/Day Years Used Date Smoking Tobacco: Never Assessed Sex Assigned at Date Recorded Female 07/10/2022 7:32 AM CDT documented as of this encounter Miscellaneous Notes Telephone Encounter - Conversion, Historical Provider Ser - 08/10/2005 12:00 AM CDT [id number] Diabetes Labs: No results found for this basename: A1C:1 LDL 96 11/16/2002 TSH 1.11 11/07/2004 patient called was out of meds was to be refilled with her bp meds and was missed called in one month to [facility] patient was told last tsh was 2003 and she was coming due for one would let her know on refills Thanks Source: [facility] Document Id: [id number] documented in this encounter Plan of Treatment Upcoming Encounters Date Type Specialty Care Team Description 10/10/2022 Office Visit Neurology Karin Ramachandran M.D., M.P.H. [address] [place], [place] [phone] (Wo rk) documented as of this encounter Visit Diagnoses Not on filedocumented in this encounter
--- OUTSIDE RECORDS SUMMARY | 2022-09-21 09:05 | XMS_ITS | Encounter Summary ---
:1960 Author Organization [facility] Address [address] [place] [address] Care Team Providers Name Role Phone Unavailable Primary Care Provider Unavailable Encounter Details Date Type Department Care Team Description 05/20/2003 Hospital Encounter HX [facility] Elvie Mac M.D. [address] [facility] [place] [address] (Wo rk) Social History Tobacco Use Types Packs/Day Years Used Date Smoking Tobacco: Never Assessed Sex Assigned at Date Recorded Female 07/10/2022 7:32 AM CDT documented as of this encounter Progress Notes Conversion, Historical Provider Ser - 05/20/2003 9:00 AM CDT [id number] Addended by: ODALIS GARCIA on: 05/24/2003,12:37 PMModules [...] and symmetric. There are no Babinski signs. Dzsymy-nhme-wkueek, heel-kne e-davila, rapid alternating motion rate, casual [...] neck and an MR Angiogram of the [place] of [place]. I will see the patient [...] review.CC: Christie White PA-C for review. Source: [facility] Document Id: [id number] documented in this encounter Plan of Treatment Upcoming Encounters Date Type Specialty Care Team Description 10/10/2022 Office Visit Neurology Karin Ramachandran M.D., M.P.H. [address] [phone] (Wo rk) documented as of this encounter Visit Diagnoses Not on filedocumented in this encounter
--- OUTSIDE RECORDS SUMMARY | 2022-09-21 09:05 | XMS_ITS | Encounter Summary ---
:1960 Author Organization [facility] Address [address] [place] [address] Care Team Providers Name Role Phone Unavailable Primary Care Provider Unavailable Encounter Details Date Type Department Care Team Description 04/06/2003 Hospital Encounter HX [facility] Carrillo Charles M.D. [address] [place], [place] [address] Social History Tobacco Use Types Packs/Day Years Used Date Smoking Tobacco: Never Assessed Sex Assigned at Date Recorded Female 07/10/2022 7:32 AM CDT documented as of this encounter Progress Notes Conversion, Historical Provider Ser - 04/06/2003 12:00 AM CDT [id number] A user error has taken place: encounter opened in error, closed for administrative reasons. Source: [facility] Document Id: [id number] documented in this encounter Plan of Treatment Upcoming Encounters Date Type Specialty Care Team Description 10/10/2022 Office Visit Neurology Karin Ramachandran M.D., M.P.H. [address] [place], [place] [phone] (Wo rk) documented as of this encounter Visit Diagnoses Not on filedocumented in this encounter
--- OUTSIDE RECORDS SUMMARY | 2022-09-21 09:05 | XMS_ITS | Encounter Summary ---
:1960 Author Organization [facility] Address [address] [place] [address] Care Team Providers Name Role Phone Unavailable Primary Care Provider Unavailable Encounter Details Date Type Department Care Team Description 05/27/2003 Hospital Encounter HX [facility] RW FAMILYPRA Stephanie Scott Jr., D.O. [address] [place] [address] (Wo rk) Social History Tobacco Use Types Packs/Day Years Used Date Smoking Tobacco: Never Assessed Sex Assigned at Date Recorded Female 07/10/2022 7:32 AM CDT documented as of this encounter Progress Notes Conversion, Historical Provider Ser - 05/27/2003 8:30 AM CDT [id number] Addended by: BRUNA NELSON on: 05/31/2003,4:05 PM Comment: Maritime Guard.Modules accepted: Surya esqueda NotesThe patient is here [...] patient is being referred to Dermatology at [facility] or definitive wound care. She was [...] Source: [facility] Document Id: [id number] documented in this encounter Plan of Treatment Upcoming Encounters Date Type Specialty Care Team Description 10/10/2022 Office Visit Neurology Karin Ramachandran M.D., M.P.H. [address] [place] [phone] (Wo rk) documented as of this encounter Visit Diagnoses Not on filedocumented in this encounter
--- OUTSIDE RECORDS SUMMARY | 2022-09-21 09:05 | XMS_ITS | Encounter Summary ---
:[address] [facility] Address [address] [place] [address] Care Team Providers Name Role Phone Unavailable Primary Care Provider Unavailable Encounter Details Date Type Department Care Team Description 12/24/2003 [facility] Provider, Chapito galloway Social History Tobacco Use Types Packs/Day Years Used Date Smoking Tobacco: Never Assessed Sex Assigned at Date Recorded Female 07/10/2022 7:32 AM CDT documented as of this encounter Miscellaneous Notes Miscellaneous - Conversion, Historical Provider Ser - 12/24/2003 12:00 AM SEISMOGRAPH SUPERVISOR [id number] Zandra Lopez [address] [address] December 24, 2003 Dear Zandra Lopez APPOINTMENT [...] future. You may call our office at [phone] or to schedule a visit. Please disregard this notice if you have already made an appointment. Sincerely, Sera R[facility] Source: [facility] Document Id: [id number] Telephone Encounter - Conversion, Historical Provider Ser - 12/24/2003 12:00 AM CST [id number] >> SERA RÍOS SatDec 24, 2003 3:11 PM >> CALL RECEIVED. Contact: pharmacy faxed refill order to be filled This is one of jadiel's pt. will send her a letter to come in and see somebody. Thanks Source: [facility] RWHXTRANSXSYS Document Id: [id number] documented in this encounter Plan of Treatment Upcoming Encounters Date Type Specialty Care Team Description 10/10/2022 Office Visit Neurology Karin Ramachandran M.D., M.P.H. [address] [place] [phone] (Wo rk) documented as of this encounter Visit Diagnoses Not on filedocumented in this encounter
--- OUTSIDE RECORDS SUMMARY | 2022-09-21 09:05 | XMS_ITS | Encounter Summary ---
:1960 Author Organization [facility] Address [address] [place] [address] Care Team Providers Name Role Phone Unavailable [...] Visit Neurology Karin Ramachandran M.D., M.P.H. [address] [place], [place] [phone] (Wo rk) documented as of this encounter Visit Diagnoses Not on filedocumented in this encounter
--- OUTSIDE RECORDS SUMMARY | 2022-09-21 09:05 | XMS_ITS | Encounter Summary ---
:1960 Author Organization [facility] Address [address] [place] [address] Care Team Providers Name Role Phone Unavailable Primary Care Provider Unavailable Encounter Details Date Type Department Care Team Description 09/07/2005 Hospital Encounter HX [facility] Shannon Buitrago M.D. [address] [place] [address] (Wo rk) Social History Tobacco Use Types Packs/Day Years Used Date Smoking Tobacco: Never Assessed Sex Assigned at Date Recorded Female 07/10/2022 7:32 AM CDT documented as of this encounter Miscellaneous Notes Miscellaneous - Conversion, Historical Provider Ser - 09/07/2005 12:00 AM CDT [id number] Zandra Lopez [address] [place] [address] MR# [id number] November 15, 2005 Dear Ms. Lopez, After [...] can be addressed. Our phone numbers are [phone] or . Sincerely, Kaelyn Nieto RN - Gas Flow Regulator [facility] Source: [facility] Document Id: [id number] Telephone Encounter - Conversion, Historical Provider Ser - 09/07/2005 12:00 AM CDT [id number] patient needs refill on her thyroid meds please place order for tsh was drawn today Diabetes Labs: No results found for this basename: A1C:1 LDL 96 11/16/2002 TSH 1.11 11/07/2004 Source: [facility] Document Id: [id number] documented in this encounter Plan of Treatment Upcoming Encounters Date Type Specialty Care Team Description 10/10/2022 Office Visit Neurology Karin Ramachandran M.D., M.P.H. [address] [phone] (Wo rk) documented as of this encounter Visit Diagnoses Not on filedocumented in this encounter
--- OUTSIDE RECORDS SUMMARY | 2022-09-21 09:05 | XMS_ITS | Encounter Summary ---
:1960 Author Organization [facility] Address [address] [place] [address] Care Team Providers Name Role Phone Unavailable Primary Care Provider Unavailable Encounter Details Date Type Department Care Team Description 05/05/2004 Hospital Encounter HX [facility] INTERNMED Provider, Chapito galloway Social History Tobacco Use Types Packs/Day Years Used Date Smoking Tobacco: Never Assessed Sex Assigned at Date Recorded Female 07/10/2022 7:32 AM CDT documented as of this encounter Miscellaneous Notes Telephone Encounter - Conversion, Historical Provider Ser - 05/05/2004 12:00 AM CDT [id number] >> BARBARA Willett May 07, 2004 10:08 PM TSH 0.45 04/14/2004 >> ASPEN Benton May 05, 2004 1:08 PM >> CALL RECEIVED. Contact: Accepting this rx will be faxed directly to pharmacy. Thank You! Source: [facility] RWHXTRANSXSYS Document Id: [id number] documented in this encounter Plan of Treatment Upcoming Encounters Date Type Specialty Care Team Description 10/10/2022 Office Visit Neurology Karin Ramachandran M.D., M.P.H. [address] [place], [place] [phone] (Wo rk) documented as of this encounter Visit Diagnoses Not on filedocumented in this encounter
--- OUTSIDE RECORDS SUMMARY | 2022-09-21 09:05 | XMS_ITS | Encounter Summary ---
:1960 Author Organization [facility] Address [address] [place] [address] Care Team Providers Name Role Phone Unavailable Primary Care Provider Unavailable Encounter Details Date Type Department Care Team Description 05/31/2003 Hospital Encounter [facility] Elvie Mac M.D. [address] [facility] [place] [address] (Wo rk) Social History Tobacco Use Types Packs/Day Years Used Date Smoking Tobacco: Never Assessed Sex Assigned at Date Recorded Female 07/10/2022 7:32 AM CDT documented as of this encounter Progress Notes Conversion, Historical Provider Ser - 05/31/2003 11:45 AM CDT [id number] Addended by: ODALIS GARCIA on: 06/07/2003,11:01 AM [...] was unremarkable. The MR Angiogram of the [place] of [place] revealed no aneurysms. There were [...] for review.CC: Dr. Persaud for review. Source: [facility] RWHXTRANSXSYS Document Id: [id number] documented in this encounter Plan of Treatment Upcoming Encounters Date Type Specialty Care Team Description 10/10/2022 Office Visit Neurology Karin Ramachandran M.D., M.P.H. [address] [phone] (Wo rk) documented as of this encounter Visit Diagnoses Not on filedocumented in this encounter
--- OUTSIDE RECORDS SUMMARY | 2022-09-21 09:05 | XMS_ITS | Encounter Summary ---
:1960 Author Organization [facility] Address [address] [place] [address] Care Team Providers Name Role Phone Unavailable [...] Visit Neurology Karin Ramachandran M.D., M.P.H. [address] [place], [place] [phone] (Wo rk) documented as of this encounter Visit Diagnoses Not on filedocumented in this encounter
--- OUTSIDE RECORDS SUMMARY | 2022-09-21 09:05 | XMS_ITS | Encounter Summary ---
:1960 Author Organization [facility] Address [address] [place] [address] Care Team Providers Name Role Phone Unavailable Primary Care Provider Unavailable Encounter Details Date Type Department Care Team Description 02/06/2004 Hospital Encounter HX [facility] Shannon Buitrago M.D. [address] [place] [address] (Wo rk) Social History Tobacco Use Types Packs/Day Years Used Date Smoking Tobacco: Never Assessed Sex Assigned at Date Recorded Female 07/10/2022 7:32 AM CDT documented as of this encounter Miscellaneous Notes Telephone Encounter - Conversion, Historical Provider Ser - 02/06/2004 12:00 AM CST [id number] >> SHANNON Willett Feb 06, 2004 2:58 PM >> CALL RECEIVED. Contact: [facility] Document Id: [id number] documented in this encounter Plan of Treatment Upcoming Encounters Date Type Specialty Care Team Description 10/10/2022 Office Visit Neurology Karin Ramachandran M.D., M.P.H. [address] [place], [place] [phone] (Wo rk) documented as of this encounter Visit Diagnoses Not on filedocumented in this encounter
--- OUTSIDE RECORDS SUMMARY | 2022-09-21 09:05 | XMS_ITS | Encounter Summary ---
:1960 Author Organization [facility] Address [address] [place] [address] Care Team Providers Name Role Phone Unavailable Primary Care Provider Unavailable Encounter Details Date Type Department Care Team Description 02/19/2003 Hospital Encounter HX [facility] Shannon Buitrago M.D. [address] [place] [address] (Wo rk) Social History Tobacco Use Types Packs/Day Years Used Date Smoking Tobacco: Never Assessed Sex Assigned at Date Recorded Female 07/10/2022 7:32 AM CDT documented as of this encounter Progress Notes Conversion, Historical Provider Ser - 02/19/2003 10:30 AM CST [id number] Date of preoperative exam: 02/19/2003 Date of [...] Signature: Partha hi Milly Barrett [facility] Source: [facility] RWHXTRANSXSYS Document Id: [id number] documented in this encounter Plan of Treatment Upcoming Encounters Date Type Specialty Care Team Description 10/10/2022 Office Visit Neurology Karin Ramachandran M.D., M.P.H. [address] [phone] (Wo rk) documented as of this encounter Visit Diagnoses Not on filedocumented in this encounter
--- OUTSIDE RECORDS SUMMARY | 2022-09-21 09:05 | XMS_ITS | Encounter Summary ---
:1960 Author Organization [facility] Address [address] [place] [address] Care Team Providers Name Role Phone Unavailable Primary Care Provider Unavailable Encounter Details Date Type Department Care Team Description 11/07/2004 Hospital Encounter HX [facility] Shannon Buitrago M.D. [address] [place] [address] (Wo rk) Social History Tobacco Use Types Packs/Day Years Used Date Smoking Tobacco: Never Assessed Sex Assigned at Date Recorded Female 07/10/2022 7:32 AM CDT documented as of this encounter Progress Notes Conversion, Historical Provider Ser - 11/07/2004 1:30 PM CST [id number] Addended by: EMILE FOWLER on: 11/10/2004,11:36 AM [...] the near future. Patient expresses understanding. Source: [facility] Document Id: [id number] documented in this encounter Plan of Treatment Upcoming Encounters Date Type Specialty Care Team Description 10/10/2022 Office Visit Neurology Karin Ramachandran M.D., M.P.H. [address] [phone] (Wo rk) documented as of this encounter Visit Diagnoses Not on filedocumented in this encounter
--- OUTSIDE RECORDS SUMMARY | 2022-09-21 09:05 | XMS_ITS | Encounter Summary ---
:1960 Author Organization [facility] Address [address] [place] [address] Care Team Providers Name Role Phone Unavailable Primary Care Provider Unavailable Encounter Details Date Type Department Care Team Description 02/04/2004 Hospital Encounter HX [facility] Shannon Buitrago M.D. [address] [place] [address] (Wo rk) Social History Tobacco Use Types Packs/Day Years Used Date Smoking Tobacco: Never Assessed Sex Assigned at Date Recorded Female 07/10/2022 7:32 AM CDT documented as of this encounter Progress Notes Conversion, Historical Provider Ser - 02/04/2004 1:30 PM CST [id number] Addended by: KELLY BUTLER on: 02/08/2004,6:55 AMModules [...] depression.* Shannon Barrett M.D./garcia*D: 4T: 02/08/2004 Source: [facility] Document Id: [id number] documented in this encounter Plan of Treatment Upcoming Encounters Date Type Specialty Care Team Description 10/10/2022 Office Visit Neurology Karin Ramachandran M.D., M.P.H. [address] [phone] (Wo rk) documented as of this encounter Visit Diagnoses Not on filedocumented in this encounter
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
--- OUTSIDE RECORDS SUMMARY | 2022-09-21 09:06 | XMS_ITS | Encounter Summary ---
:[address] [facility] Address [address] [place] [address] Care Team Providers Name Role Phone Unavailable Primary Care Provider Unavailable Encounter Details Date Type Department Care Team Description 12/23/2002 Hospital Encounter [facility] Mike Herrera L, R.N. [address] [facility] [address] (Wo rk) Social History Tobacco Use Types Packs/Day Years Used Date Smoking Tobacco: Never Assessed Sex Assigned at Date Recorded Female 07/10/2022 7:32 AM CDT documented as of this encounter Miscellaneous Notes Telephone Encounter - Conversion, Historical Provider Ser - 12/23/2002 12:00 AM CST [id number] >> JASMIN TAFOYA [facility] Dec 24, 2002 9:58 AM I called her, and she may stop here tomorrow after her P.T. appt. RR >> CRUZ DICKERSON [facility] Dec 24, 2002 9:48 AM I did speak to Zandra, she is at [phone]/and would appreciate you calling her back this morning sometime. >> JASMIN TAFOYA [facility] Dec 24, 2002 8:33 AM I [...] restrict motion. would like you to call [phone]. pharmacy is [facility] in [place]. >> GHAZALA HOOD SatDec 23, 2002 2:47 PM >> CALL RECEIVED. Contact: pt/ leo pt has questions about pain meds. [phone] Source: [facility] RWHXTRANSXSYS Document Id: [id number] documented in this encounter Plan of Treatment Upcoming Encounters Date Type Specialty Care Team Description 10/10/2022 Office Visit Neurology Karin Ramachandran M.D., M.P.H. [address] [phone] (Wo rk) documented as of this encounter Visit Diagnoses Not on filedocumented in this encounter
--- OUTSIDE RECORDS SUMMARY | 2022-09-21 09:06 | XMS_ITS | Encounter Summary ---
:1960 Author Organization [facility] Address [address] [place] [address] Care Team Providers Name Role Phone Unavailable Primary Care Provider Unavailable Encounter Details Date Type Department Care Team Description 12/15/2002 Hospital Encounter HX [facility] Carrillo Charles M.D. [address] [place], [place] [address] Social History Tobacco Use Types Packs/Day Years Used Date Smoking Tobacco: Never Assessed Sex Assigned at Date Recorded Female 07/10/2022 7:32 AM CDT documented as of this encounter Progress Notes Conversion, Historical Provider Ser - 12/15/2002 9:45 AM CST [id number] Addended by: IZZY DRAKE on: 12/21/2002,7:26 AM Comment: transcriptionModules accepted: Everardo rodriguez NotesAddended by: CARRILLO TAFOYA on: 12/15/2002,11:48 AMModules accepted: Order SummaryBa lesly Dixon is a 42-y/o lady who presents with a one or two week history of pain in the l eft arm. This pain began a couple of weeks ago and intensified when she was recently in the [facility] and doing some head stands. She has complaints of pain that radiate from her neck and shoulder reg ion down into the axilla and in her arm and all the way down into her left hand with a numb and tingl ing feeling in the middle and ring fingers of that hand. 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 Carrillo Tafoya MD/mpD: 12/15/02T: 12/17/02 Source: [facility] RWHXTRANSXSYS Document Id: [id number] documented in this encounter Plan of Treatment Upcoming Encounters Date Type Specialty Care Team Description 10/10/2022 Office Visit Neurology Karin Ramachandran M.D., M.P.H. [address] [place] [phone] (Wo rk) documented as of this encounter Visit Diagnoses Not on filedocumented in this encounter
--- OUTSIDE RECORDS SUMMARY | 2022-09-21 09:06 | XMS_ITS | Encounter Summary ---
:1960 Author Organization [facility] Address [address] [place] [address] Care Team Providers Name Role Phone Unavailable Primary Care Provider Unavailable Encounter Details Date Type Department Care Team Description 01/19/2003 Hospital Encounter HX [facility] Carrillo Charles M.D. [address] [place], [place] [address] Social History Tobacco Use Types Packs/Day Years Used Date Smoking Tobacco: Never Assessed Sex Assigned at Date Recorded Female 07/10/2022 7:32 AM CDT documented as of this encounter Progress Notes Conversion, Historical Provider Ser - 01/19/2003 2:00 PM CST [id number] Addended by: CONY WADSWORTH on: 01/22/2003,12:11 PM [...] that now, what she is dealing w [facility], is a cervical sprain and she's developed some signs and symptoms of a double crush phenomenon. I don't think that either condition is necessarily severe enough to recommend surgery so I've recom mended that she continue at this time with conservative care. She's got a home traction unit from [facility] and is doing appropriate cervical [...] progress. Carrillo Persaud M.D./Rain: 01/19/2003T: 01/22/2003 Source: [facility] RWHXTRANSXSYS Document Id: [id number] documented in this encounter Plan of Treatment Upcoming Encounters Date Type Specialty Care Team Description 10/10/2022 Office Visit Neurology Karin Ramachandran M.D., M.P.H. [address] [phone] (Wo rk) documented as of this encounter Visit Diagnoses Not on filedocumented in this encounter
--- OUTSIDE RECORDS SUMMARY | 2022-09-21 09:06 | XMS_ITS | Encounter Summary ---
:1960 Author Organization [facility] Address [address] [place] [address] Care Team Providers Name Role Phone Unavailable Primary Care Provider Unavailable Encounter Details Date Type Department Care Team Description 11/10/2002 Hospital Encounter [facility] Social History Tobacco Use Types Packs/Day Years Used Date Smoking Tobacco: Never Assessed Sex Assigned at Date Recorded Female 07/10/2022 7:32 AM CDT documented as of this encounter Plan of Treatment Upcoming Encounters Date Type Specialty Care Team Description 10/10/2022 Office Visit Neurology Karin Ramachandran M.D., M.P.H. [address] [place], [place] [phone] (Wo rk) documented as of this encounter Visit Diagnoses Not on filedocumented in this encounter
--- OUTSIDE RECORDS SUMMARY | 2022-09-21 09:06 | XMS_ITS | Encounter Summary ---
:1960 Author Organization [facility] Address [address] [place] [address] Care Team Providers Name Role Phone Unavailable Primary Care Provider Unavailable Encounter Details Date Type Department Care Team Description 12/16/2002 Hospital Encounter [facility]X [facility] Jarrod Persaud M.D. [address] [place], [place] [address] Social History Tobacco Use Types Packs/Day Years Used Date Smoking Tobacco: Never Assessed Sex Assigned at Date Recorded Female 07/10/2022 7:32 AM CDT documented as of this encounter Plan of Treatment Upcoming Encounters Date Type Specialty Care Team Description 10/10/2022 Office Visit Neurology Karin Ramachandran M.D., M.P.H. [address], [place] [phone] (Wo rk) documented as of this encounter Visit Diagnoses Not on filedocumented in this encounter
--- OUTSIDE RECORDS SUMMARY | 2022-09-21 09:06 | XMS_ITS | Encounter Summary ---
:1960 Author Organization [facility] Address [address] [place] [address] Care Team Providers Name Role Phone Unavailable Primary Care Provider Unavailable Encounter Details Date Type Department Care Team Description 02/09/2003 Hospital Encounter HX [facility] Provider, [place] Social History Tobacco Use Types Packs/Day Years Used Date Smoking Tobacco: Never Assessed Sex Assigned at Date Recorded Female 07/10/2022 7:32 AM CDT documented as of this encounter Progress Notes Conversion, Historical Provider Ser - 02/09/2003 8:00 AM CST [id number] Here for 3 reasons: 1) L. wrist. [...] later this AM for her wrist. [facility] Document Id: [id number] documented in this encounter Plan of Treatment Upcoming Encounters Date Type Specialty Care Team Description 10/10/2022 Office Visit Neurology Karin Ramachandran M.D., M.P.H. [address] [phone] (Wo rk) documented as of this encounter Visit Diagnoses Not on filedocumented in this encounter
--- OUTSIDE RECORDS SUMMARY | 2022-09-21 09:06 | XMS_ITS | Encounter Summary ---
:1960 Author Organization [facility] Address [address] [place] [address] Care Team Providers Name Role Phone Unavailable Primary Care Provider Unavailable Encounter Details Date Type Department Care Team Description 11/03/2001 [facility] Provider, Chapito galloway Social History Tobacco Use Types Packs/Day Years Used Date Smoking Tobacco: Never Assessed Sex Assigned at Date Recorded Female 07/10/2022 7:32 AM CDT documented as of this encounter Miscellaneous Notes Telephone Encounter - Conversion, Historical Provider Ser - 11/03/2001 12:00 AM CST [id number] >> LAMBERTO DOWNEY SatMay 11, 2002 3:58 [...] RECEIVED. Contact: uses Lev[employer] and called to [phone]. IP Source: [facility] RWHXTRANSXSYS Document Id: [id number] documented in this encounter Plan of Treatment Upcoming Encounters Date Type Specialty Care Team Description 10/10/2022 Office Visit Neurology Karin Ramachandran M.D., M.P.H. [address] [place], [place] [phone] (Wo rk) documented as of this encounter Visit Diagnoses Not on filedocumented in this encounter
--- OUTSIDE RECORDS SUMMARY | 2022-09-21 09:06 | XMS_ITS | Encounter Summary ---
:1960 Author Organization [facility] Address [address] [place] [address] Care Team Providers Name Role Phone Unavailable Primary Care Provider Unavailable Encounter Details Date Type Department Care Team Description 11/10/2002 Hospital Encounter HX [facility] Provider, Chapito galloway Social History Tobacco Use Types Packs/Day Years Used Date Smoking Tobacco: Never Assessed Sex Assigned at Date Recorded Female 07/10/2022 7:32 AM CDT documented as of this encounter Miscellaneous Notes Telephone Encounter - Conversion, Historical Provider Ser - 11/10/2002 12:00 AM CST [id number] >> ADRIANE DELGADO Bala Nov 10, 2002 [...] do fasting e xam on . [facility] Document Id: [id number] documented in this encounter Plan of Treatment Upcoming Encounters Date Type Specialty Care Team Description 10/10/2022 Office Visit Neurology Karin Ramachandran M.D., M.P.H. [address] [place], [place] [phone] (Wo rk) documented as of this encounter Visit Diagnoses Not on filedocumented in this encounter
--- OUTSIDE RECORDS SUMMARY | 2022-09-21 09:06 | XMS_ITS | Encounter Summary ---
:1960 Author Organization [facility] Address [address] [place] [address] Care Team Providers Name Role Phone Unavailable [...] Provider Ser - 01/12/2003 8:00 AM CST [id number] Here to talk over contraception. Actually, she [...] yroidism, stable. Tobacco abuse. Contraception management. [facility]: [facility] Document Id: [id number] documented in this encounter Plan of Treatment Upcoming Encounters Date Type Specialty Care Team Description 10/10/2022 Office Visit Neurology Karin Ramachandran M.D., M.P.H. [address], [place] [phone] (Wo rk) documented as of this encounter Visit Diagnoses Not on filedocumented in this encounter
--- OUTSIDE RECORDS SUMMARY | 2022-09-21 09:06 | XMS_ITS | Encounter Summary ---
:1960 Author Organization [facility] Address [address] [place] [address] Care Team Providers Name Role Phone Unavailable [...] Provider Ser - 01/01/2003 12:00 AM CST [id number] >> ADRIANE Benton Jan 01, 2003 1:17 PM >> CALL RECEIVED. Contact: I called Christiane, [phone], left message that I had talked to Dr. Owen, re options for BC. Dr. Owen listed: micronor, tubal, IUD, (has 2 kinds of IUD available) and diaphragm. I asked that she call m e back on 01/04 Source: [facility] Document Id: [id number] documented in this encounter Plan of Treatment Upcoming Encounters Date Type Specialty Care Team Description 10/10/2022 Office Visit Neurology Karin Ramachandran M.D., M.P.H. [address] [place], [place] [phone] (Wo rk) documented as of this encounter Visit Diagnoses Not on filedocumented in this encounter
--- OUTSIDE RECORDS SUMMARY | 2022-09-21 09:06 | XMS_ITS | Encounter Summary ---
:1960 Author Organization [facility] Address [address] [place] [address] Care Team Providers Name Role Phone Unavailable [...] Provider Ser - 12/15/2002 8:20 AM CST [id number] Here for reports:HTN: I am starting her [...] for a long time. Was told at [place] she has a disc problem. I referred [...] BP.20 min spent, all in counseling. Source: [facility] RWHXTRANSXSYS Document Id: [id number] documented in this encounter Plan of Treatment Upcoming Encounters Date Type Specialty Care Team Description 10/10/2022 Office Visit Neurology Karin Ramachandran M.D., M.P.H. [address] [phone] (Wo rk) documented as of this encounter Visit Diagnoses Not on filedocumented in this encounter
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
--- OUTSIDE RECORDS SUMMARY | 2022-09-21 09:06 | XMS_ITS | Encounter Summary ---
:1960 Author Organization [facility] Address [address] [place] [address] Care Team Providers Name Role Phone Unavailable Primary Care Provider Unavailable Encounter Details Date Type Department Care Team Description 12/25/2002 Hospital Encounter HX [facility] Provider, Farideh adams Social History Tobacco Use Types Packs/Day Years Used Date Smoking Tobacco: Never Assessed Sex Assigned at Date Recorded Female 07/10/2022 7:32 AM CDT documented as of this encounter Miscellaneous Notes Telephone Encounter - Conversion, Historical Provider Ser - 12/25/2002 12:00 AM CST [id number] Addended by: PASCUAL DOWNEY on: 12/25/2002,3:09 PMModules accepted: Progress Notes>>PASCUAL SMITH Fri Dec 25, 2002 10:00 AM>> CALL RECEIVED. Contact: She was given a perscription for percocet #40, 1po q 3 hours, prn, by Dr. Persaud. Source[facility] Document Id: [id number] documented in this encounter Plan of Treatment Upcoming Encounters Date Type Specialty Care Team Description 10/10/2022 Office Visit Neurology Karin Ramachandran M.D., M.P.H. [address] [place], [place] [phone] (Wo rk) documented as of this encounter Visit Diagnoses Not on filedocumented in this encounter
--- OUTSIDE RECORDS SUMMARY | 2022-09-21 09:06 | XMS_ITS | Encounter Summary ---
:1960 Author Organization [facility] Address [address] [place] [address] Care Team Providers Name Role Phone Unavailable Primary Care Provider Unavailable Encounter Details Date Type Department Care Team Description 10/28/2001 [facility] Provider, Chapito galloway Social History Tobacco Use Types Packs/Day Years Used Date Smoking Tobacco: Never Assessed Sex Assigned at Date Recorded Female 07/10/2022 7:32 AM CDT documented as of this encounter Miscellaneous Notes Miscellaneous - Conversion, Historical Provider Ser - 10/28/2001 12:00 AM PROBATION AND PATROL AGENT [id number] Zandra Lopez [id number] [address] [id number] MR# [id number] October 28, 2001 Dear Zandra Lopez, It [...] be addressed. Sincerely, Anjelica White PA-C [facility] Source[facility] Document Id: [id number] documented in this encounter Plan of Treatment Upcoming Encounters Date Type Specialty Care Team Description 10/10/2022 Office Visit Neurology Karin Ramachandran M.D., M.P.H. [address], [place] [phone] (Wo rk) documented as of this encounter Visit Diagnoses Not on filedocumented in this encounter
--- OUTSIDE RECORDS SUMMARY | 2022-09-21 09:06 | XMS_ITS | Encounter Summary ---
:1960 Author Organization [facility] Address [address] [place] [address] Care Team Providers Name Role Phone Unavailable Primary Care Provider Unavailable Encounter Details Date Type Department Care Team Description 11/11/2002 Hospital Encounter HX NO MAPPING Fady Parsons M.D. [address] [place], [place] [address] Social History Tobacco Use Types Packs/Day Years Used Date Smoking Tobacco: Never Assessed Sex Assigned at Date Recorded Female 07/10/2022 7:32 AM CDT documented as of this encounter Plan of Treatment Upcoming Encounters Date Type Specialty Care Team Description 10/10/2022 Office Visit Neurology Karin Ramachandran M.D., M.P.H. [address] [place], [place] [phone] (Wo rk) documented as of this encounter Visit Diagnoses Not on filedocumented in this encounter
--- OUTSIDE RECORDS SUMMARY | 2022-09-21 09:06 | XMS_ITS | Encounter Summary ---
:[address] [facility] Address [address] [place] [address] Care Team Providers Name Role Phone Unavailable Primary Care Provider Unavailable Encounter Details Date Type Department Care Team Description 02/11/2003 Hospital Encounter [facility] INTERNMED Provider, Chapito galloway Social History Tobacco Use Types Packs/Day Years Used Date Smoking Tobacco: Never Assessed Sex Assigned at Date Recorded Female 07/10/2022 7:32 AM CDT documented as of this encounter Plan of Treatment Upcoming Encounters Date Type Specialty Care Team Description 10/10/2022 Office Visit Neurology Karin Ramachandran M.D., M.P.H. 0 [place], [place] [phone] (Wo rk) documented as of this encounter Visit Diagnoses Not on filedocumented in this encounter
--- OUTSIDE RECORDS SUMMARY | 2022-09-21 09:06 | XMS_ITS | Encounter Summary ---
:1960 Author Organization [facility] Address [address] [place] [address] Care Team Providers Name Role Phone Unavailable Primary Care Provider Unavailable Encounter Details Date Type Department Care Team Description 02/17/2003 Hospital Encounter HX [facility] Carrillo Charles M.D. [address] [place], [place] [address] Social History Tobacco Use Types Packs/Day Years Used Date Smoking Tobacco: Never Assessed Sex Assigned at Date Recorded Female 07/10/2022 7:32 AM CDT documented as of this encounter Plan of Treatment Upcoming Encounters Date Type Specialty Care Team Description 10/10/2022 Office Visit Neurology Karin Ramachandran M.D., M.P.H. [address] [place], [place] [phone] (Wo rk) documented as of this encounter Visit Diagnoses Not on filedocumented in this encounter
--- OUTSIDE RECORDS SUMMARY | 2022-09-21 09:07 | XMS_ITS | Encounter Summary ---
:1960 Author Organization [facility] Address [address] [place] [address] Care Team Providers Name Role Phone Unavailable [...] Visit Neurology Karin Ramachandran M.D., M.P.H. 0 [place], [place] [phone] (Wo rk) documented as of this encounter Visit Diagnoses Not on filedocumented in this encounter
--- OUTSIDE RECORDS SUMMARY | 2022-09-21 09:07 | XMS_ITS | Encounter Summary ---
:1960 Author Organization [facility] Address [address] [place] [address] Care Team Providers Name Role Phone Unavailable [...] Provider Ser - 09/04/2001 8:00 AM CDT [id number] She is here for annual.Surg: Left arm [...] tid, #30, 1RF. Letter with reports. Source: [facility] RWHXTRANSXSYS Document Id: [id number] documented in this encounter Plan of Treatment Upcoming Encounters Date Type Specialty Care Team Description 10/10/2022 Office Visit Neurology Karin Ramachandran M.D., M.P.H. 0 [place] [phone] (Wo rk) documented as of this encounter Visit Diagnoses Not on filedocumented in this encounter
[2022-09-21 10:22] LABS: Chloride* 99 mmol/L (96-114); Potassium* 4.3 mmol/L (3.6-5.1); Sodium* 135 mmol/L (135-149)
[2022-09-21 10:25] LABS: Blood Urea Nitrogen* 12 mg/dL (7-30); Calcium* 9.6 mg/dL (8.4-10.6); Carbon Dioxide* 27 mmol/L (20-32); Creatinine* 0.5 mg/dL (0.5-1.5); Estimated Glomerular Filt Rate 105 ml/min; Glucose* 111 mg/dL (60-115)
== END 2022-09-21 09:20 | disposition home or self-care (01) ==
PROVIDERS: PCP Family Medicine; Visit Provider Family Medicine
DX: E87.1 Hypo-osmolality and hyponatremia (principal)
CPT/HCPCS: 80048

== ENCOUNTER 2022-10-01 10:46 | Outpatient (CLI) | payer BC, SELFPAY ==
--- OUTSIDE RECORDS SUMMARY | 2022-10-01 11:03 | XMS_ITS | Encounter Summary ---
:1960 Author Organization [facility] Address [address] [place] [address] Care Team Providers Name Role Phone Unavailable Primary Care Provider Unavailable Encounter Details Date Type Department Care Team Description 03/20/2017 Hospital Encounter HX [facility] Aurelia Milligan M.D. [address] [place] [address] (Wo rk) Social History Tobacco [...] Summary-Paper Based CODING DATE: 03/25/2017 FINAL RW [facility] STATUS: * Discharged to Home or Self [...] ROSARIO Date Saved: 03/25/2017 02:58 pm Source: [facility] Document Id: [id number] documented in this encounter Plan of Treatment Upcoming Encounters Date Type Specialty Care Team Description 10/10/2022 Office Visit Neurology Karin Ramachandran M.D., M.P.H. [address] [phone] (Wo rk) documented as of this encounter Visit Diagnoses Not on filedocumented in this encounter Additional Health Concerns Assessment Noted Time PHQ-9 Depression Total Score: 6 03/20/2017 1:11 PM CDT documented as of this encounter
--- OUTSIDE RECORDS SUMMARY | 2022-10-01 11:03 | XMS_ITS | Encounter Summary ---
:1960 Author Organization [facility] Address [address] [place] [address] Care Team Providers Name Role Phone Faye Liao M.D. Primary Care Provider Encounter Details Date Type Department Care Team Description 03/18/2018 Orders Only Department of Faye Liao Monitorin g For Therapeutic Drug Therapy (Primary Dx); Community Internal MChristiano Hypertension Essential Primary; Medicine in [address] Screening Mammogram Average Risk Patient [place], [place] [address] [address] [place], [place] [phone] [address] (Work) [phone] Social History Tobacco Use Types Packs/Day Years Used Date Smoking Tobacco: Heavy Smoker Sex Assigned at Date Recorded Female 07/10/2022 7:32 AM CDT documented as of this encounter Plan of Treatment Upcoming Encounters Date Type Specialty Care Team Description 10/10/2022 Office Visit Neurology Karin Ramachandran M.D., M.P.H. [address] [place], [place] [phone] (Wo rk) documented as of this encounter Visit Diagnoses Diagnosis Monitoring For Therapeutic Drug Therapy - Primary Hypertension Essential Primary Screening Mammogram Average Risk Patient documented in this encounter Additional Health Concerns Assessment Noted Time PHQ-9 Depression Total Score: 6 03/20/2017 1:11 PM CDT documented as of this encounter Care Teams Solution Mixer Relationship Specialty Start Date End Date Faye Liao M.D. PCP - General 05/09/17 01/14/[address] [place] [address] [place] [phone] documented as of this encounter
--- OUTSIDE RECORDS SUMMARY | 2022-10-01 11:03 | XMS_ITS | Encounter Summary ---
:1960 Author Organization [facility] Address [address] [place] [address] Care Team Providers Name Role Phone Elsewhere, Pcp Primary Care Provider Unavailable Reason for Visit Outpatient (Routine) - Closed Specialty Diagnoses / Procedures Referred By Contact Refer red To Contact Diagnoses Seizure (HCC) Karin Ramachandran M.D., M.P.H. [facility] Procedures EEG [address] [place] [address] Referral ID Status Reason Start Date Expiration Date Visits Requ ested Visits Authorized [id number] Closed 07/10/2022 07/10/2023 1 1 Encounter Details Date Type Department Care Team Description 08/30/2022 Diagnostic Department of Neurology in Karin Ramachandran, Seizure (HCC) [place], [place] Milly, M.P.H. [address] [place] [address] [place], [place] [phone] (Howie dean) Social History Tobacco Use [...] Neurology Karin Ramachandran M.D., M.P.H. [address] [place], [place] [phone] (Wo rk) documented as [...] documented as of this encounter Care Teams Restaurant Hospitality Manager Relationship 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
--- OUTSIDE RECORDS SUMMARY | 2022-10-01 11:03 | XMS_ITS | Encounter Summary ---
:1960 Author Organization [facility] Address [address] [place] [address] Care Team Providers Name Role Phone Elsewhere, Pcp Primary Care Provider Unavailable Encounter Details Date Type Department Care Team Description 10/29/2020 Clinical Communication Central Appointment Line, Covid Help Office in [place], [place] [address] [place], [place] [address] Social History Tobacco Use Types Packs/Day Years [...] to be swabbed for COVID-19, sent to [facility] located at [address] You must call [phone] for an appointment time. Testing hours are [...] request for public health , sent to [facility] located at [address] You must call [phone] for an appointment time. Testing hours are [...] and water aren't available, use a hand computer laboratory technician that contains at least 60% alcohol. Avoid [...] since you were tested. Educational Resource: https://www.cdc.gov/coronavirus/2019-ncov/ ltrlrnj-dnogabk-ppld/index.html Education: Not applicable Patient agreeable to plan of care: Yes The following references were used: [facility] novel coronavirus (COVID- 19) resources UDER OPERATOR documented in this encounter Plan of Treatment Upcoming Encounters Date Type Specialty Care Team Description 10/10/2022 Office Visit Neurology Karin Ramachandran M.D., M.P.H. [address] [place] [phone] (Wo rk) documented as of this encounter Visit Diagnoses Not on filedocumented in this encounter Additional Health Concerns Assessment Noted Time PHQ-9 Depression Total Score: 6 03/20/2017 1:11 PM CDT documented as of this encounter Care Teams Global Human Resources Director Relationship 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
--- OUTSIDE RECORDS SUMMARY | 2022-10-01 11:03 | XMS_ITS | Encounter Summary ---
:1960 Author Organization [facility] Address [address] [place] [address] Care Team Providers Name Role Phone Faye Liao M.D. Primary Care Provider Reason for Referral Outpatient (Routine) - Closed Specialty Diagnoses / Procedures Referred By Contact Refer red To Contact Diagnoses Alcohol Mild Use Disorder (Abuse) Uncomplicated Faye Liao M.D. [address] [place] [address] Referral ID Status Reason Start Date Expiration Date Visits Requ ested Visits Authorized [id number] Closed 2017 03/04/2018 1 1 Encounter Details Date Type Department Care Team Description 2017 Orders Only Department of Faye Liao, Alcohol A [facility] Internal Milly Uncomplicated Medicine in [place] [address] [address] [address] [facility] [place] [phone] (Work) [phone] Social History Tobacco Use Types Packs/Day Years Used Date Smoking Tobacco: Every Day Sex Assigned at Date Recorded Female 07/10/2022 7:32 AM CDT documented as of this encounter Plan of Treatment Upcoming Encounters Date Type Specialty Care Team Description 10/10/2022 Office Visit Neurology Karin Ramachandran M.D., M.P.H. [address] [place], [place] [phone] (Wo rk) Scheduled Referrals Name Type Priority Associated Diagnoses Order [facility] Internal Outpatient Referral Routine Alcohol Abuse E xpected: Medicine office Uncomplicated 02/17/2018 visit (clinic) (Approximate) , Expires: 02/21/2023 documented as of this encounter Visit Diagnoses Diagnosis Alcohol Mild Use Disorder (Abuse) Uncomp licated documented in this encounter Additional Health Concerns Assessment Noted Time PHQ-9 Depression Total Score: 6 03/20/2017 1:11 PM CDT documented as of this encounter Care Teams Vinegar Maker Relationship Specialty Start Date End Date Faye Liao M.D. PCP - General 05/09/17 01/14/20 [address] [place] [address] documented as of this encounter
--- OUTSIDE RECORDS SUMMARY | 2022-10-01 11:03 | XMS_ITS | Encounter Summary ---
:1960 Author Organization [facility] Address [address] [place] [address] Care Team Providers Name Role Phone Faye Liao M.D. Primary Care Provider Reason for Visit Reason Comments Med Refill Encounter Details Date Type Department Care Team Description 04/04/2018 Refill Department [facility] Faye Liao M.D. Med Refill Internal Medicine in [place], [address] [place] [address] [place] [address] [phone] Social History Tobacco Use Types Packs/Day Years Used Date Smoking Tobacco: Heavy Smoker Sex Assigned at Date Recorded Female 07/10/2022 7:32 AM CDT documented as of this encounter Plan of Treatment Upcoming Encounters Date Type Specialty Care Team Description 10/10/2022 Office Visit Neurology Karin Ramachandran M.D., M.P.H. [address] [phone] (Wo rk) documented as of this encounter Visit Diagnoses Not on filedocumented in this encounter Additional Health Concerns Assessment Noted Time PHQ-9 Depression Total Score: 6 03/20/2017 1:11 PM CDT documented as of this encounter Care Teams Furnace Setter Relationship Specialty Start Date End Date Faye Liao M.D. PCP - General 05/09/17 01/14/20 [address] [place] [address] documented as of this encounter
--- OUTSIDE RECORDS SUMMARY | 2022-10-01 11:03 | XMS_ITS | Encounter Summary ---
:1960 Author Organization [facility] Address [address] [place] [address] Care Team Providers Name Role Phone Faye Liao M.D. Primary Care Provider Reason for Visit Reason Comments Med Refill Encounter Details Date Type Department Care Team Description 05/30/2018 Refill Department of [facility] Faye Liao M.D. Med Refill Internal Medicine in [place], [address] [place] [address] [facility] [place] [address] [phone] Social History Tobacco Use Types Packs/Day Years [...] Visit Neurology Karin Ramachandran M.D., M.P.H. [address] [phone] (Wo rk) documented as of this encounter Visit Diagnoses Not on filedocumented in this encounter Additional Health Concerns Assessment Noted Time PHQ-9 Depression Total Score: 6 03/20/2017 1:11 PM CDT documented as of this encounter Care Teams Car Greaser Relationship Specialty Start Date End Date Faye Liao M.D. PCP - General 05/09/17 01/14/20 [address] [place] [phone] documented as of this encounter
--- OUTSIDE RECORDS SUMMARY | 2022-10-01 11:03 | XMS_ITS | Encounter Summary ---
:1960 Author Organization [facility] Address [address] [place] [address] Care Team Providers Name Role Phone Unavailable Primary Care Provider Unavailable Encounter Details Date Type Department Care Team Description 03/26/2017 Hospital Encounter [facility] Aurelia Grigsby M.D. [address] [place], [place] [phone] (Wo rk) Social History [...] Results Letter March 29, 2017 ZANDRA MAI [id number] [address] [place] [id number] Dear ZANDRA MAI, I am pleased to [...] an e-mail account, join the other 900,000 [facility] patients who use the Patient Online Services to conveniently access their lab results by calling [phone] to sign up for an account. It [...] 304 03/26/2017 150 - 450 HCV Ab [facility] Negative 03/26/2017 Negative - Sincerely, FAYE YADAV [address] [place] [address] Electronic Signature Electronically Signed By: FAYE YADAV MD On: March 29, 2017 This document has images extracted. Source: [facility] POWERCHART Document Id: [id number] Electronically signed by Conversion, [facility] Lead Pharmacy Technician [id number] at 05/07/2017 5:05 AM CDT documented in this encounter Plan of Treatment Upcoming Encounters Date Type Specialty Care Team Description 10/10/2022 Office Visit Neurology Karin Ramachandran M.D., M.P.H. [address] [place], [place] [phone] (Wo rk) documented as [...] X109L Erythrocytes 4.49 3.90 - POWERCHART 5.03 [id number] Hemoglobin 15.6 (H) 12.0 - POWERCHART 15.5 [...] athologist Signature HXHCV Ab Negative Negative POWERCHART [facility] Comment: Lblfcw-uq-iwdfqx ratio is <1.00. Test Performed by: [address] [address] Specimen (Source) Anatomical Collection Method Collection Time Re ceived Time Location / / Volume Laterality Blood 03/26/2017 8:12 AM CDT Faye Yadav M.D. LAB MICROBIOLOGY - BLOOD ORD ERABLES Performing Organization Address City/[facility] Code Phon e Number POWERCHART Thyroid-Stimulating Hormone-Sensitive (s-TSH) (03/26/2017 8:12 AM CDT) athologist Signature TSH 0.94 0.27 - 4.20 POWERCHART (Thyrotropin) RICK Comment: Biotin has been identified by the [...] M.D. LAB BLOOD ADD-ON Performing Organization Address City/[facility] Code Phon e Number POWERCHART (ABNORMAL) CMP [...] POWERCHART MGDL eGFR Black/ >60 >=[address] [place] [id number] 2 HXeGFR (MDRD) >60 >=60 POWERCHART [id number] 2 Comment: Results are in mL/min/1.73m CKD [...]
--- OUTSIDE RECORDS SUMMARY | 2022-10-01 11:03 | XMS_ITS | Encounter Summary ---
:[address] [facility] Address [address] [place] [address] Care Team Providers Name Role Phone Elsewhere, Pcp Primary Care Provider Unavailable Encounter Details Date Type Department Care Team Description 05/01/2021 Orders Only Division of Trauma Carito Nicholas, Lail[place] re Rib Multiple Critical Care and M.D. Subsequent With Routine General Surgery in [address] [facility] Healing Right (Primary [place], [place] Dx) [address] [facility] [address] [place], [place] [phone] [address] (Work) [phone] Social History Tobacco Use Types Packs/Day Years [...] Neurology Karin Ramachandran M.D., M.P.H. [address] [phone] (Wo rk) documented as of this encounter Visit Diagnoses Diagnosis Fracture Rib Multiple Subsequent With Ro utine Healing Right - Primary documented in this encounter Additional Health Concerns Assessment Noted Time PHQ-9 Depression Total Score: 6 03/20/2017 1:11 PM CDT documented as of this encounter Care Teams Machine Stuffer Automatic Relationship 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
--- OUTSIDE RECORDS SUMMARY | 2022-10-01 11:03 | XMS_ITS | Encounter Summary ---
:1960 Author Organization [facility] Address [address] [place] [address] Care Team Providers Name Role Phone Elsewhere, Pcp Primary Care Provider Unavailable Reason for Visit Reason Comments Fall Rib Injury Encounter Details Date Type Department Care Team Description 04/28/2021 Emergency [facility] John Farley Fra cture Rib Multiple Emergency Department P.A.-C. Closed Initial Right [address] (Primary Dx) [place] [address] [phone] (Wo rk) Social History Tobacco Use Types [...] being seen at an urgent care in [place] for right sided rib pain that she [...] pain she was evaluated in urgent carein [place] today was found to have multiple rib fractures and other scapular hematoma on exam. She was referred to the [facility] Emergency Department for further evaluation and [...] rib fractures. She was referred to the [facility] Emergency Department for further evaluation and [...] Closed Initial Right John Farley P.A.-C. 04/28/21 153 documented in this encounter Plan of Treatment Upcoming Encounters Date Type Specialty Care Team Description 10/10/2022 Office Visit Neurology Karin Ramachandran M.D., M.P.H. [address] [phone] (Wo rk) documented as [...] bony neural foraminal stenosis at L5-S1. John Farley P.A.-C. IMG CT PROCEDURES CT Abdomen Pelvis with IV [...] thoracic and lumbar spine. John Farley P.A.-C. [facility] CT PROCEDURES CT Chest with IV Contrast [...] thoracic and lumbar spine. John Farley P.A.-C. [facility] CT PROCEDURES DX Chest Portable 1 View [...] and pulmonar y vasculature. No pneumothorax. John Fraley P.A.-C. IMG DIAGNOSTIC IMAGING PROCE MARK SARS Coronavirus 2, PCR Rapid, V Symptomatic (04/28/2021 1:11 PM CDT) [facility] Method Time Signature SARS CoV-2, Undetected Undetected 04/28/2021 [facility] PCR, Rapid, V 1:38 PM CDT Comment: ----ADDITIONAL INFORMATION---- This RT-PCR test was performed using the Won SARS-CoV-2 and Influenza A/B Reagent assay from [employer], which has received Emergency Use Authori zation(EUA) by the U.S. Food and Drug Administration . Fact sheets for this Emergency Use Autho rization (EUA) assay can be found at the following link s: For Healthcare Providers: https://www.fda.gov/media/885026/downloa d For Patients: https://www.fda.gov/media/232100/downloa d SARS Coronavirus 2, Source, Rapid Swab, Nasopharynx 04/28/2021 1:11 PM CDT [facility] Specimen Anatomical Collection Method Collection Time Receive d Time (Source) Location / / Volume Laterality Varies 04/28/2021 1:11 PM 1:11 (Nasopharynx) CDT PM CDT John Farley P.A.-C. LAB MICROBIOLOGY - GENERAL O RDERABLES Performing Organization Address City/State/ZIP Code Phon e Number [facility] - [address] [place], [place] [address] [facility] [place] [address] [facility] [address] Type and Screen (with reflex Antibody ID) (04/28/2021 1:03 PM CDT) [facility] Method Time Signature ABORh O Pos Not 04/28/2021 STRM applicable 1:33 PM CDT Antibody Negative Negative 04/28/2021 STR[facility] Screen 1:46 PM CDT Type & Screen 05/01/2021 04/28/2021 STRM Expiration 23:59 1:33 PM CDT Testing Eunice DEFAULT 04/28/2021 STRM Location 1:09 PM CDT Specimen Anatomical Collection Method Collection Time Receive d Time (Source) Location / / Volume Laterality Blood (Blood, 04/28/2021 1:03 PM 04/28/20 1:09 Venous) CDT PM CDT John Farley P.A.-C. LAB BLOOD BANK TEST ORDERABL ES Performing Organization Address City/State/ZIP Code Phon e Number [facility] - [address] [place] [address] [place] [address] [facility] [address] [facility] (ABNORMAL) Basic Metabolic Panel (04/28/2021 1:03 PM [...] CDT eGFR-Black/Afri >90 >=60 04/28/2021 [facility] can Nauruan mL/min/BSA 1:24 PM CDT Comment: ----ADDITIONAL INFORMATION---- [...] Laterality Blood (Blood, 04/28/2021 1:03 PM 04/28/20 21 1:07 Venous) CDT PM CDT John Farley P.A.-C. LAB BLOOD ADD-ON Performing Organization Address City/State/ZIP Code Phon e Number [facility] - [address] [place], [place] [address] [place] [address] [facility] 200 [facility] (ABNORMAL) CBC with Differential, Blood (04/28/2021 1:03 PM CDT) [facility] Method Time Signature Hemoglobin 12.8 11.6 [...] Organization Address City/State/ZIP Code Phon e Number [facility] - [address] [place], [place] [address] [place] [address] [facility] [address] documented in [...] documented as of this encounter Care Teams Brim Pouncer Machine Operator Relationship 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
--- OUTSIDE RECORDS SUMMARY | 2022-10-01 11:03 | XMS_ITS | Encounter Summary ---
:1960 Author Organization [facility] Address [address] [place] [address] Care Team Providers Name Role Phone Faye Liao M.D. Primary Care Provider Encounter Details Date Type Department Care Team Description 06/02/2018 Orders Only Department of Faye Liao Hypothyro idism (Primary [facility] Internal M.D. Dx) Medicine in [place] [address] [address] [address] [place], [place] [phone] [phone] (Work) [phone] Social History Tobacco Use Types Packs/Day Years Used Date Smoking Tobacco: Heavy Smoker Sex Assigned at Date Recorded Female 07/10/2022 7:32 AM CDT documented as of this encounter Plan of Treatment Upcoming Encounters Date Type Specialty Care Team Description 10/10/2022 Office Visit Neurology Karin Ramachandran M.D., M.P.H. [address] [phone] (Wo rk) documented as of this encounter Visit Diagnoses Diagnosis Hypothyroidism - Primary documented in this encounter Additional Health Concerns Assessment Noted Time PHQ-9 Depression Total Score: 6 03/20/2017 1:11 PM CDT documented as of this encounter Care Teams Welder Boilermaker Relationship Specialty Start Date End Date Faye Liao M.D. PCP - General 05/09/17 01/14/[address] [place] [address] documented as of this encounter
--- OUTSIDE RECORDS SUMMARY | 2022-10-01 11:03 | XMS_ITS | Encounter Summary ---
:1960 Author Organization [facility] Address [address] [place] [address] Care Team Providers Name Role Phone Faye Liao M.D. Primary Care Provider Encounter Details Date Type Department Care Team Description 09/24/2018 Orders Only Department of [facility] Faye Liao M.D. Internal Medicine in [address] [place] [phone] [facility] [place] [address] [phone] Social History Tobacco Use Types Packs/Day Years Used Date Smoking Tobacco: Heavy Smoker Sex Assigned at Date Recorded Female 07/10/2022 7:32 AM CDT documented as of this encounter Plan of Treatment Upcoming Encounters Date Type Specialty Care Team Description 10/10/2022 Office Visit Neurology Karin Ramachandran M.D., M.P.H. [address] [phone] (Wo rk) documented as of this encounter Visit Diagnoses Not on filedocumented in this encounter Additional Health Concerns Assessment Noted Time PHQ-9 Depression Total Score: 6 03/20/2017 1:11 PM CDT documented as of this encounter Care Teams Manager College Relationship Specialty Start Date End Date Faye Liao M.D. PCP - General 05/09/17 01/14/[address] [place] [phone] documented as of this encounter
--- OUTSIDE RECORDS SUMMARY | 2022-10-01 11:03 | XMS_ITS | Encounter Summary ---
:1960 Author Organization [facility] Address [address] [place] [address] Care Team Providers Name Role Phone Elsewhere, Pcp Primary Care Provider Unavailable Reason for Visit Reason Onset Date Comments Outpatient COVID-19 Testing 10/31/2020 Encounter Details Date Type Department Care Team Description 10/31/2020 External Outreach Department of [facility] Jennifer Starks Infection Upper Medicine, [place] Cait Jensen Respiratory (Primary Clinic, in [place], [address] Dx) [place], [place] [address] [address] [place], [place] [phone] (Work) [phone] Social History Tobacco Use Types Packs/Day Years Used Date Smoking Tobacco: Heavy Smoker Sex Assigned at Date Recorded Female 07/10/2022 7:32 AM CDT documented as of this encounter Progress Notes Dai Ash LEvansPEvansN. - 10/31/2020 2:27 PM CST Encounter created for the drive-through COVID-19 testing. IC OFFICE ASSISTANT documented in this encounter Plan of Treatment Upcoming Encounters Date Type Specialty Care Team Description 10/10/2022 Office Visit Neurology Karin Ramachandran M.D., M.P.H. [address] [place], [place] [phone] (Wo rk) documented as of this encounter Visit Diagnoses Diagnosis Infection Upper Respiratory - Primary documented in this encounter Additional Health Concerns Infection Onset Date Last Indicated Resolved Time COVID19 Pending 10/31/2020 11/01/2020 11/07/2020 1:16 PM CLINIC OFFICE ASSISTANT Assessment Noted Time PHQ-9 Depression Total Score: 6 03/20/2017 1:11 PM CDT documented as of this encounter Care Teams Anesthesiology Technologist Relationship 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
--- OUTSIDE RECORDS SUMMARY | 2022-10-01 11:03 | XMS_ITS | Encounter Summary ---
:1960 Author Organization [facility] Address [address] [place] [address] Care Team Providers Name Role Phone Faye Liao M.D. Primary Care Provider Reason for Visit Reason Onset Date Comments Med Refill 12/03/2017 Encounter Details Date Type Department Care Team Description 12/03/2017 Clinical Communication Department of Faye Liao, Med Refill [facility] Internal M.DEvans Medicine in [place] [address] [address] [address] [place], [place] [phone] (Work) [phone] Social History Tobacco Use Types Packs/Day Years Used Date Smoking Tobacco: Every Day Sex Assigned at Date Recorded Female 07/10/2022 7:32 AM CDT documented as of this encounter Miscellaneous Notes Telephone Encounter - Kesha Galvan LEvansP.NEvans - 12/10/2017 4:44 PM RADIOLOGY CLERK Request went through for gabapentin. Was not able to get a hold of patient to ask if she needed other medications. OLOGY CLERK Telephone Encounter - Kesha Galvan L.PEvansNEvans - 12/03/2017 3:20 PM RADIOLOGY CLERK Call cannot be completed as dialed message comes on when this number is dialed. OLOGY CLERK Telephone Encounter - Adwoa Alexander - 12/03/2017 8:32 AM CST Patient is calling to let Dr. Liao know that her will be in [place] for a couple of weeks for a bone marrow transplant. Patient needs refills of her Gabapentin, levothyroxine, and her blood pressure medication. Patient is very upset and can't think so she asked if all her medications can be reviewed and fill which ever she needs refills on. Please send to [facility] in [place]. Patient is requesting this be done today. I told patient that I could not guarantee that we will be able to get this filled today as we usually need up to 3 days to process a refill request. Please call patient with any questions and with status of refill. OLOGY CLERK documented in this encounter Plan of Treatment Upcoming Encounters Date Type Specialty Care Team Description 10/10/2022 Office Visit Neurology Karin Ramachandran M.D., M.P.H. [address] [phone] (Wo rk) documented as of this encounter Visit Diagnoses Not on filedocumented in this encounter Additional Health Concerns Assessment Noted Time PHQ-9 Depression Total Score: 6 03/20/2017 1:11 PM CDT documented as of this encounter Care Teams Cyber Defense Incident Responder Relationship Specialty Start Date End Date Faye Liao M.D. PCP - General 05/09/17 01/14/20 [address] [place] [phone] documented as of this encounter
--- OUTSIDE RECORDS SUMMARY | 2022-10-01 11:03 | XMS_ITS | Encounter Summary ---
:1960 Author Organization [facility] Address [address] [place] [address] Care Team Providers Name Role Phone Faye Liao M.D. Primary Care Provider Reason for Visit Reason Comments Med Refill Encounter Details Date Type Department Care Team Description 12/03/2017 Refill Department [facility] Faye Liao M.D. Med Refill Internal Medicine in [place], [address] [place] [address] [place] [address] [phone] Social History Tobacco Use Types Packs/Day Years Used Date Smoking Tobacco: Every Day Sex Assigned at Date Recorded Female 07/10/2022 7:32 AM CDT documented as of this encounter Plan of Treatment Upcoming Encounters Date Type Specialty Care Team Description 10/10/2022 Office Visit Neurology Karin Ramachandran M.D., M.P.H. [address] [phone] (Wo rk) documented as of this encounter Visit Diagnoses Not on filedocumented in this encounter Additional Health Concerns Assessment Noted Time PHQ-9 Depression Total Score: 6 03/20/2017 1:11 PM CDT documented as of this encounter Care Teams Employment Evaluator/Case Manager Relationship Specialty Start Date End Date Faye Liao M.D. PCP - General 05/09/17 01/14/20 [address] [place] [phone] documented as of this encounter
--- OUTSIDE RECORDS SUMMARY | 2022-10-01 11:03 | XMS_ITS | Encounter Summary ---
:1960 Author Organization [facility] Address [address] [place] [address] Care Team Providers Name Role Phone Faye Liao M.D. Primary Care Provider Encounter Details Date Type Department Care Team Description 09/02/2019 Orders Only [facility] Faye Liao, Screening Mammogram Breast Cancer; M.DEvans Monitoring For Therapeutic Drug Therapy [address] [place] [address] Social History Tobacco Use Types Packs/Day Years Used Date Smoking Tobacco: Heavy Smoker Sex Assigned at Date Recorded Female 07/10/2022 7:32 AM CDT documented as of this encounter Plan of Treatment Upcoming Encounters Date Type Specialty Care Team Description 10/10/2022 Office Visit Neurology Karin Ramachandran M.D., M.P.H. [address] [phone] ( rk) documented as of this encounter Visit Diagnoses Diagnosis Screening Mammogram Breast Cancer Monitoring For Therapeutic Drug Therapy documented in this encounter Additional Health Concerns Assessment Noted Time PHQ-9 Depression Total Score: 6 03/20/2017 1:11 PM CDT documented as of this encounter Care Teams Penology Teacher Relationship Specialty Start Date End Date Faye Liao M.D. PCP - General 05/09/17 01/14/20 [address] [place] [phone] documented as of this encounter
--- OUTSIDE RECORDS SUMMARY | 2022-10-01 11:03 | XMS_ITS | Encounter Summary ---
:1960 Author Organization [facility] Address [address] [place] [address] Care Team Providers Name Role Phone Elsewhere, Pcp Primary Care Provider Unavailable Reason for Referral Outpatient (Routine) - Authorized Specialty Diagnoses / Procedures Referred By Contact Refer red To Contact Neurology Karin Ramachandran M.D ., M.P.H. [facility] Region [address], [place] [address] Referral ID Status Reason Start Date Expiration Date Visits V isits Requested Authorized [id number] Authorized 07/10/2022 07/10/2023 1 1 Outpatient (Routine) - Closed Specialty Diagnoses / Procedures Referred By Contact Refer red To Contact Diagnoses Seizure (HCC) Karin Ramachandran M.D., M.P.H. [facility] Region Procedures EEG [address] [place] [phone] Referral ID Status Reason Start Date Expiration Date Visits Requ ested Visits Authorized [id number] Closed 07/10/2022 07/10/2023 1 1 Reason for Visit Reason Comments Seizures Ref. Dr. Heller Appointment Request (Routine) - Closed Specialty Diagnoses / Procedures Referred By Contact Refer red To Contact Neurology Referral ID Status Reason Start Date Expiration Date Visits Requ ested Visits Authorized [id number] Closed 06/21/2022 06/21/2023 1 Encounter Details Date Type Department Care Team Description 07/10/2022 Comprehensive Visit Department of Karin Ramachandran Seizure ([facility]) (Primary Dx); Neurology in [place], Seizure Recurre nt Nonintractable ([facility]); Ann Talamantes.P.H. Moderate Or Severe Use Disorder (Depende nce) Alcohol Remission (HCC) [place] [address] [facility] [place] [phone] Social History Tobacco Use Types Packs/Day [...] in the past. She was admitted to [place] in 2016 were she is diagnosed with [...] been seizures one prompted admission to [facility] when the rescue squad was [...] the cousin after the 2015 admission in [place]. She has remainedon that as far as anybody knows for her seizures. And in [facility] they draw attention to history of alcohol withdrawal seizures. She saw Dr. Rolando Tiwari and he ordered an EEG in 2019 and that is pasted below and this was normal. CT scan of the head from 04/01/[address] [facility] reveals moderate bifrontal cortical atrophy with mild chronic white matter changes. After this event in [facility] I am that the cousin describes she was placed on Keppra presently 750 mg p.o. b.i.d.. Other risk factors for seizures include multiple head injuries from falling down when she was drunk.There is no history of epilepsy in the family there is no history of COTTON GINNER HELPER infections nor febrile seizures. CT scan of the head reveals nonspecific but per perhaps more prominent atrophy than one would anticipate from 61-year-old. Her a record from [facility] reports an acute seizure on [...] using alcohol since the admission to [facility] in March. From Dr. Soto's [...] (two) times a day., Disp: , Rfl: elxubwykknse-Qd-zzyd-minerals tablet, 1 tablet., Disp: , Rfl: omeprazole [...] Latex Rash LATEX - rash, hives Poison [place] Extract Edema Family History Problem Relation Age [...] She is in good spirits CRANIAL NERVES: chemical mixer II-XII intact and symmetric. I do not [...] Neurology Karin Ramachandran M.D., M.P.H. [address] [place] [phone] (Wo rk) Scheduled Referrals Name Type Priority Associated Diagnoses Order S [facility] Neurology office Outpatient Referral Routine Expe [...] as of this encounter Care Teams Laborer Bituminous Paving Relationship 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
--- OUTSIDE RECORDS SUMMARY | 2022-10-01 11:03 | XMS_ITS | Encounter Summary ---
:1960 Author Organization [facility] Address [address] [place] [address] Care Team Providers Name Role Phone Faye Liao M.D. Primary Care Provider Reason for Visit Reason Comments Med Refill Encounter Details Date Type Department Care Team Description 05/31/2018 Refill Department [facility] Faye Liao M.D. Med Refill Internal Medicine in [place], [address] [place] [address] [place] [address] [phone] Social History Tobacco Use Types Packs/Day Years Used Date Smoking Tobacco: Heavy Smoker Sex Assigned at Date Recorded Female 07/10/2022 7:32 AM CDT documented as of this encounter Plan of Treatment Upcoming Encounters Date Type Specialty Care Team Description 10/10/2022 Office Visit Neurology Karin Ramachandran M.D., M.P.H. [address] [phone] (Wo rk) documented as of this encounter Visit Diagnoses Not on filedocumented in this encounter Additional Health Concerns Assessment Noted Time PHQ-9 Depression Total Score: 6 03/20/2017 1:11 PM CDT documented as of this encounter Care Teams Cofounder Relationship Specialty Start Date End Date Faye Liao M.D. PCP - General 05/09/17 01/14/20 [address] [place] [address] documented as of this encounter
--- OUTSIDE RECORDS SUMMARY | 2022-10-01 11:03 | XMS_ITS | Clinical Summary ---
:1960 Author Organization [facility] Address [address] [place] [address] Care Team Providers Name Role Phone Elsewhere, Pcp Primary Care Provider Unavailable Source Comments Patient records contain information from all sites at [facility]. For routine questions regarding patient records, call [phone] during business hours, M-F 8:00 AM - 5:00 PM Central Time. Record requests for emergency care only can be directed to [phone] at any time.[facility] Allergies Active Allergy Reactions Severity Noted Date Comments Latex Rash 04/22/2009 LATEX - rash, h mirta Poison [place] Extract Edema 04/20/2014 Medications Medication Sig Dispensed [...] times a day. 0 05/22/2022 Active ORAL cfogctkipjmr-Ol-czt 1 tablet. 0 05/22/2022 Active n-minerals tablet [...] Karin Ramachandran, Seiz ure (HCC) (Primary Dx); MDonna., M.P.H. Seizure Recurre [...] Visit Neurology Karin Ramachandran M.D., M.P.H. [address] [phone] (Wo rk) Health Maintenance Due Date [...] Typ e / Group Dates GERONIMO MELTON [id number] 2018-Pres [phone] [place] [address] Care Teams Rouge Presser Relationship Specialty Start Date End Date Elsewhere, Pcp PCP - General Internal Medicine 01/15/20
--- OUTSIDE RECORDS SUMMARY | 2022-10-01 11:03 | XMS_ITS | Clinical Summary ---
:1960 Author Organization [facility] [place] [address] Care Team Providers Name Role Phone Luann Juarez Primary Care Provider [phone] Allergies Active Allergy Reactions Severity Noted Date Comments Latex 04/22/2009 Poison [place] Extract Edema 04/20/2014 Medications Medication Sig Dispensed [...] containing 4 or more times a w [place] 10/20/2019 alcohol? How many drinks containing alcohol [...] Comments Blood Pressure 139/82 10/20/2019 7:49 AM DIVISION LEADER Pulse 107 10/20/2019 7:49 AM DIVISION LEADER Temperature 36.7 ??C (98.1 ??F) 10/20/2019 7:49 AM DIVISION LEADER Respiratory Rate - - Oxygen Saturation 100% 10/20/2019 7:49 AM DIVISION LEADER Inhaled Oxygen Concentration - - Weight 54.4 kg (120 lb) 10/20/2019 7:49 AM DIVISION LEADER Height 160 cm (5' 3) 10/20/2019 7:49 AM DIVISION LEADER Body Mass Index 21.26 10/20/2019 7:49 AM DIVISION LEADER Plan of Treatment Health Maintenance Due Date [...] Type Group BLUE CROSS BLUE CROSS OF [id number] 2020-Liat [address] [facility] [place] [address] Advance Directives Documents on File Type Date Recorded Patient Automotive Service Director Explanati on Healthcare Directive 12/30/2019 12/30/2019 Care Teams Sugar Refinery Supervisor Relationship Specialty Start Date End Date Luann Juarez PA PCP - General Physician Cemetery Manager 02/23/19 [facility] [id number]
--- OUTSIDE RECORDS SUMMARY | 2022-10-01 11:04 | XMS_ITS | Encounter Summary ---
:1960 Author Organization [facility] Address [address] [place] [address] Care Team Providers Name Role Phone Unavailable Primary Care Provider Unavailable Encounter Details Date Type Department Care Team Description 05/23/2016 Hospital Encounter HX [facility] Aurelia Yadav M.D. [address] [place] [address] (Wo rk) Social History [...] frequency Screening Hepatitis C Once Born Between 4167-0855 due 05/23/16 One-time only Due In Future [...] 20-75 on 10/17/15. Satisfied by CONY RODRIGUEZ MT(ASC) Screening Colonoscopy or Flex Sig or Occult Blood on 11/14/15. Satisfied by FAYE YADAV MD Screening Diabetes Blood Glucose every 3 years Age 18-70 (Risk Factors) on 10/17/15. Satisfied by CONY RODRIGUEZ MT(ASC) Screening Mammogram every 1 year Women 40-75 on 02/15/16. Satisfied by BRANNON --ANITA Screening Pap Smear every 3 years Women Age 30-65 on 10/17/15. Satisfied by JAYE BRAY DP Vaccine: Flu every 1 year on 10/03/15. Satisfied by MARCO ANTONIO RANDLE [facility] REVIEW -3 days of vagintal itch [...] YADAV MD On: 05/23/2016 01:39 PM Source: [facility] POWERCHART Document Id: [id number] documented in this encounter Miscellaneous Notes Miscellaneous [...] tab(s) Refills: 1 [address] Route To [id number] Signed by FAYE YADAV MD 02/04/2017 17:12:02 From: MONICA RODRIGUES RN ([facility]/Stephanie Nurse (RN)) To: FAYE YADAV MD; Sent: 02/04/2017 14:52:55 CDT Subject: Med Management SHARON 05/23/16. Scheduled for followup on 03/20/17. Last TSH: TSH: 1.84 10/17/15 On hold pending signature Order:levothyroxine (levothyroxine 88 mcg (0.088 mg) oral tablet) 1 tab(s) PO Daily Qty: 30 tab(s) Refills: 1 [address] Route To [email or web address] Document Id: [id number] Miscellaneous - Conversion, Historical Provider Ser - 12/18/2016 9:01 AM MAP COLORER Schedule Follow-Up Visit December 18, 2016 [place] [id number] [facility] [id number] Dear CHIP MAI, [facility] would like to better assist you with managing your care. By seeing your primary care team for regular check ups and labs, we can be sure you will get the care you need when you need it. Therefore, our records indicate that you're due for: Blood Pressure Follow Up with Dr. Yadav Please call our appointment desk at [phone] or my direct line at [phone]. Sincerely, ARNAV JEWELL Electronic Signature Electronically Signed By: ARNAV JEWELL On: December 18, 2016 This document has images extracted. Source: [facility] [employer] Document Id: [id number] Miscellaneous - Dylan Painting R.N. - 10/02/2016 1:57 PM CST Med Management Document Contains Addenda Addendum by FAYE YADAV MD on October 03, 2016 11:42:13 MAP COLORER From: FAYE YADAV MD Sent: 10/03/2016 11:42:13 MAP COLORER Subject: RE:Med Management Approved Order:gabapentin (gabapentin 300 mg oral capsule) 1 cap(s) PO 3xDay Qty: 90 cap(s) Refills: 1 Substit[address] Route To [id number] Signed by FAYE YADAV MD 10/03/2016 11:42:05 Approved Order:levothyroxine (levothyroxine 88 mcg (0.088 mg) oral tablet) 88 mcg PO Daily Qty: 30 each Refills: [address] To [id number] Signed by FAYE YADAV MD 10/03/2016 11:42:04 Addendum by JUNIE LOPEZ RN on October 03, 2016 08:35:46 MAP COLORER From: JUNIE LOPEZ RN ( Ned/Stephanie Nurse (RN)) To: FAYE YADAV MD; Sent: 10/03/2016 08:35:46 MAP COLORER Subject: Med Management Please advise per BELL msg below. All other medications that pt is requesting have remaining refills left at pharmacy. Thank you. On hold pending signature Order:levothyroxine (levothyroxine 88 mcg (0.088 mg) oral tablet) 88 mcg PO Daily Qty: 30 each Refills: [address] Route To [id number] On hold pending signature Order:gabapentin (gabapentin 300 mg oral capsule) 1 cap(s) PO 3xDay Qty: 90 cap(s) Refills: 1 Substit[address] Route To [id number] Addendum by SHENG WHYTE on October 03, 2016 08:19:25 MAP COLORER From: SHENG WHYTE ([facility] Lighter) To: TIO Arevalo Nurse (RN); Sent: 10/03/2016 08:19:25 MAP COLORER Subject: FW: Med Management spoke with pt and she is scheduled for 11/14/[address] Yadav. please ensure she will have enoughrefills on all of her meds (BP, thyroid, abdirahman, Vit B.) please send all refills to [facility] in [place]. Addendum by JUNIE LOPEZ RN on October 02, 2016 14:08:03 MAP COLORER From: JUNIE LOPEZ RN (TIO Arevalo Nurse (RN)) To: Stephanie Lighter; Sent: 10/02/2016 14:08:03 MAP COLORER Subject: FW: Med Management Please call and assist in scheduling pt or send second letter per msg below from Dr. Yadav, thank you! Addendum by FAYE YADAV MD on October 02, 2016 14:07:22 MAP COLORER From: FAYE YADAV MD To: TIO Arevalo Nurse (RN); Sent: 10/02/2016 14:07:22 MAP COLORER Subject: RE: Med Management Addendum by FAYE YADAV MD on October 02, 2016 14:07:20 MAP COLORER Approved Order:gabapentin (gabapentin 300 mg oral capsule) 1 cap(s) PO 3xDay Qty: 45 cap(s) Refills: 0 Substitutions Allowed Route To Pharmacy - [facility][id number] Signed by FAYE YADAV MD 10/02/2016 14:07:16 needs to make f/u appt for further refills. Please sent second letter. From: DYLAN PAINTING RN (TIO Marino/Stephanie Nurse (RN)) To: FAYE YADAV MD; Sent: 10/02/2016 13:57:15 MAP COLORER Subject: Med Management On hold pending signature Order:gabapentin (gabapentin 300 mg oral capsule) 1 cap(s) PO 3xDay Qty: 45 cap(s) Refills: 0 Substitutions Allowed Route To Pharmacy - [facility][id number] Patient overdue for appointment. Letter sent on 07/27/2016; patient called on 08/08/2016. No follow up appointment made Please review and recommend Two weeks pended Source: [facility] POWERCHART Document Id: [id number] Telephone Encounter - Conversion, Historical Provider Ser - 08/08/2016 2:13 PM CDT *Phone Message Document Contains Addenda Addendum by RICHARD MORRISON on August 08, 2016 14:28:31 CDT done Addendum by MONICA RODRIGUES RN on August 08, 2016 14:21:32 CDT From: MONICA RODRIGUES RN (TIO Marino/Stephanie Nurse (RN)) To: TIO Brown Lighter; Sent: 08/08/2016 14:21:32 CDT Subject: FW: *Phone [...] this time. From: RICHARD MORRISON (TIO Brown Lighter) To: TIO Marino/Stephanie Nurse (RN); Sent: 08/08/2016 [...] (TIO Marino/Stephanie Nurse (RN)) To: TIO Brown Lighter; Sent: 07/26/2016 12:19:26 CDT Subject: FW: Med [...] 0 Substitutions Allowed Route To Pharmacy - [facility] #[id number] Signed by FAYE YADAV MD 07/26/2016 12:16:42 [...] 0 Substitutions Allowed Route To Pharmacy - [facility] #[id number] Source: [facility] POWERCHART Document Id: [id number] Miscellaneous - Conversion, Historical Provider Ser - 07/27/2016 9:14 AM CDT Schedule Follow-Up Visit July 27, 2016 [place] [address] [place] [id number] Dear CHIP MAI, Our records indicate that you are due for a follow up appointment with Dr. Yadav. Please call us to make an appointment at your convenience. Our telephone number for scheduling an appointment is [phone]. Your health is important to us. If you have already made an appointment for this or have had the procedure done, please disregard this notice. Sincerely, RICHARD MORRISON Electronic Signature Electronically Signed By: RICHARD MORRISON On: July 27, 2016 This document has images extracted. Source: [facility] POWERCHART Document Id: [id number] Miscellaneous - Junie Lopez R.N. - 07/26/2016 11:48 AM CDT Med Management Document Contains Addenda Addendum by RICHARD MORRISON on July 27, 2016 09:14:29 CDT Appt letter mailed to pt Addendum by MONICA RODRIGUES RN on July 26, 2016 12:19:26 CDT From: MONICA RODRIGUES RN (TIO Marino/Stephanie Nurse (RN)) To: TIO Brown Lighter; Sent: 07/26/2016 12:19:26 CDT Subject: FW: Med [...] 0 Substitutions Allowed Route To Pharmacy - [facility][id number] Signed by FAYE YADAV MD 07/26/2016 12:16:42 [...] 0 Substitutions Allowed Route To Pharmacy - [facility][id number] Source: [facility] [employer] Document Id: [id number] Miscellaneous - Jesenia Dong C.M.A. - 07/17/2016 5:57 PM CDT *General Message Document Contains Addenda Addendum by JESENIA DONG CMA on July 18, 2016 10:18:50 CDT Spoke with patient and informed her of message below. Patient has already made an appt to be seen in [place]. Addendum by FAYE YADAV MD on July 18, 2016 07:27:47 CDT From: FAYE YADAV MD To: [facility] Nurse (TABITHA/MEÑO); Sent: 07/18/2016 07:27:47 CDT Subject: [...] you at next appt. Please advise. Source: [facility] POWERCHART Document Id: [id number] Sean - Faye Yadav M.D. - 05/23/2016 1:40 PM CDT Ambulatory Patient Summary [address] [id number] Visit Information Name: CHIP MAI [facility] Number: [id number] Current Date: 05/23/2016 13:40:26 [...] Oral, once a day New Routed to [address] [address] aspirin (aspirin 81 mg oral delayed release [...] Appointments Date Time Location Provider 07/03/2016 10:45 TIOZU Faye Penn MD Attention: Contact your local Clinic if [...] if you dont have one. Go to [email or web address] and click on Create Your Account. Then, follow the directions to complete the online form. Youll be asked for your [facility] number which you can find at the top of this document. Your Goals/Additional instructions: Source: [facility] POWERCHART Document Id: [id number] Miscellaneous - Faye Yadav M.D. - 05/23/2016 1:40 PM CDT Ambulatory Discharge Medication List [address] [id number] Visit Information Name: CHIP MAI [facility] Number: [id number] Visit Date: 05/23/2016 13:40:25 [...] Oral, once a day New Routed to [address] [address] aspirin (aspirin 81 mg oral [...] MD Signed On:23-MAY-2016 13:40:21 Additional Information: Source: [facility] POWERCHART Document Id: [id number] Miscellaneous - Faye Yadav M.D. - 05/23/2016 [...] (*) Present (None Seen - ) Source: [facility] POWERCHART Document Id: [id number] Miscellaneous - Demetrio Hughes L.P.N. - 05/23/2016 8:48 AM CDT Adult Commercial Collections Specialist Intake/History Adult Commercial Collections Specialist Intake/History Entered On: 05/23/2016 8:52 CDT [...] Information Given By : Patient Languages : [place] Islander Is Patient Female and 13-50 no hysterectomy [...] HUGHES LPN - 05/23/2016 8:48 CDT Source: [facility] POWERCHART Document Id: [id number] documented in this encounter Plan of Treatment Upcoming Encounters Date Type Specialty Care Team Description 10/10/2022 Office Visit Neurology Karin Ramachandran M.D., M.P.H. [address] [phone] (Wo rk) documented as of this encounter Procedures Procedure Name Priority Date/Time Associated Diagnosis Comme nts URINALYSIS, Routine 05/23/2016 9:08 AM Results f or this MIDSTREAM, WITH CDT procedure ar e in CULTURE IF the results INDICATED section. documented in this encounter Results (ABNORMAL) Urinalysis, Midstream, with culture if indicated (05/23/2016 9:08 AM CDT) [facility] gist Method Time Signature Clarity Clear Clear POWERCHART HXUr Color Yellow Colorless POWERCHART Glucose Negative Negative POWERCHART MGDL HXBILIRUBIN Negative Negative POWERCHART Ketones, QL(U) Negative Negative POWERCHART MGDL Specific 1.010 POWERCHART [place], POCT, U HXBLOOD Negative Negative POWERCHART pH, [...]
--- OUTSIDE RECORDS SUMMARY | 2022-10-01 11:04 | XMS_ITS | Encounter Summary ---
:1960 Author Organization [facility] Address [address] [place] [address] Care Team Providers Name Role Phone Unavailable Primary Care Provider Unavailable Encounter Details Date Type Department Care Team Description 03/20/2017 Hospital Encounter HX [facility] Aurelia Núñez M.D. [address] [place] [address] (Wo rk) Social History Tobacco [...] Yadav M.D. - 03/20/2017 12:35 PM CDT [id number] CHIEF COMPLAINT / REASON FOR VISIT Med refills. HISTORY OF PRESENT ILLNESS Chip is a 56-year-old female who presents to the clinic today for medication refills for hypothyroidism, alcohol abuse, and tobacco abuse. She tells us that her has been diagnosed with leukemia about 5 weeks ago and is being treated at [facility]. This has been a major stressorin her [...] behalf by Curly Brownlee, a trained medical technologist. The creation of this record is based on the scribe's personal observations and the provider's statements to them. This document has been checked and approved by the attending provider. Faye Yadav M.D./carrie Electronically Signed By: FAYE YADAV MD On: 03/20/2017 07:26 PM Modified by and Electronically Signed by: FAYE YADAV MD On: 03/20/2017 07:26 PM Source: [facility] MHSDOLBEYNONRADSYS Document Id: [id number] Addendum by FAYE YADAV MD on March 20, 2017 19:28 CDT Past medical history, social history, and family history are reviewed and updated in the electronichealth record. Modified by and Electronically Signed by: FAYE YADAV MD On: 03/20/2017 07:28 PM Source: [facility] Live ShuttleCHART Document Id: [id number] Addendum by FAYE YADAV MD on March 20, 2017 19:28 CDT Past medical history, social history, and family history are reviewed and updated in the electronichealth record. Modified by and Electronically Signed by: FAYE YADAV MD On: 03/20/2017 07:28 PM Source: [facility] Octapoly Document Id: [id number] documented in this encounter Miscellaneous Notes Miscellaneous - Susanne Pompa R.N. - 06/19/2017 3:44 PM CDT Med Management Document Contains Addenda Addendum by SHENG WHYTE on June 25, 2017 18:17:16 CDT noted. thanks! Addendum by MARCO ANTONIO RANDLE LPN on June 25, 2017 16:11:48 CDT From: MARCO ANTONIO RANDLE LPN ([facility] Nurse (HAND SCREEN PRINTER/[facility])) To: TIO Brown Roll Grinder; Sent: 06/25/2017 16:11:48 CDT Subject: FW: Med Management Addendum by FAYE YADAV MD on June 25, 2017 12:43:48 CDT From: FAYE YADAV MD To: [facility] Nurse (HAND SCREEN PRINTER/FACILITIES ASSISTANT); Sent: 06/25/2017 12:43:48 CDT Subject: RE: Med Management Addendum by FAYE YADAV MD on June 25, 2017 12:43:43 CDT 01/2018 is fine. Thanks. Addendum by MARCO ANTONIO RANDLE LPN on June 25, 2017 10:38:15 CDT From: MARCO ANTONIO RANDLE LPN ([facility] Nurse (HAND SCREEN PRINTER/FACILITIES ASSISTANT)) To: FAYE YADAV MD; Sent: 06/25/2017 10:38:15 CDT Subject: FW: Med Management Addendum by MARCO ANTONIO RANDLE LPN on June 25, 2017 10:37:24 CDT unable to assess. will route to PCP. Addendum by SHENG WHYTE on June 25, 2017 08:13:17 CDT From: SHENG WHYTE ([facility] Roll Grinder) To: [facility] Nurse (HAND SCREEN PRINTER/FACILITIES ASSISTANT); Sent: 06/25/2017 08:13:17 CDT Subject: RE: Med [...] R.N. ( Elan/Key/Matt Team Nurse (RN)) To: [place] Roll Grinder; Sent: 06/20/2017 08:10:33 CDT Subject: FW: Med Management Please schedule patient for follow up. Addendum by FAYE YADAV MD on June 19, 2017 16:46:08 CDT From: FAYE YADAV MD Sent: 06/19/2017 16:46:08 CDT Subject: RE:Med Management Approved with modifications: Order:gabapentin (gabapentin 300 mg oral capsule) 1 cap(s) PO 3xDay Qty: 90 cap(s) Refills: 0 Substitutions Allowed Route To [id number] Signed by FAYE YADAV MD 06/19/2017 16:46:01 overdue for f/u please arrange From: SUSANNE POMPA RN (TIO Ansari/Key/Matt Team Nurse (RN)) To: FAYE YADAV MD; Sent: 06/19/2017 15:44:33 CDT Subject: Med Management On hold pending signature Order:gabapentin (gabapentin 300 mg oral capsule) 1 cap(s) PO 3xDay Qty: 90 cap(s) Refills: 1 Substitutions Allowed Route To [id number] NOT REVIWED BY RN PROTOCOL 24hr SURGE Source: [facility] POWERCHART Document Id: [id number] Telephone Encounter - Conversion, Historical Provider Ser [...] tab(s) Refills: 11 Substitutions Allowed Route To [id number] Signed by FAYE YADAV MD 05/15/2017 15:57:30 Addendum by ATTILA BARON CMA on May 15, 2017 14:30:11 CDT From: ATTILA BARON CMA ([facility] Nurse (HAND SCREEN PRINTER/[facility])) To: FAYE YADAV MD; Sent: 05/15/2017 14:30:11 CDT Subject: FW: *Phone Message Last office visit 03/20/17, Please review and advise. Addendum by ATTILA BARON CMA on May 15, 2017 14:29:20 CDT On hold pending signature Order:levothyroxine (levothyroxine 88 mcg (0.088 mg) oral tablet) 1 tab(s) PO Daily Qty: 30 tab(s) Refills: 11 Substitutions Allowed Route To Pharmacy - [id number] TSH: 0.94 mIU/L (03/26/17) From: RICHARD MORRISON ([facility] Roll Grinder) To: [facility] Nurse (HAND SCREEN PRINTER/[facility]); Sent: 05/15/2017 14:02:00 CDT Subject: *Phone Message [...] back cell phone number ( ) Source: [facility] POWERCHART Document Id: [id number] Telephone Encounter - Conversion, Historical Provider Ser - 03/28/2017 11:39 AM CDT *Phone Message Document Contains Addenda Addendum by MARCO ANTONIO RANDLE LPN on March 28, 2017 11:45:44 CDT From: MARCO ANTONIO RANDLE LPN ([facility] Nurse (HAND SCREEN PRINTER/[facility])) To: SHANTELL REVELES PA-C; Sent: 03/28/2017 11:45:44 CDT Subject: FW: *Phone Message Please advise in PCP absense. Addendum by MARCO ANTONIO RANDLE LPN on March 28, 2017 11:45:02 CDT Patient had labs done on March 26. TSH was 0.94 From: SHENG WHYTE ([facility] Roll Grinder) To: [facility] Nurse (HAND SCREEN PRINTER/[facility]); Sent: 03/28/2017 11:39:05 CDT ! Subject: *Phone [...] dose? Advice/Action: please call her NATHALIE at [phone]. Source used: ( ) Verbalizes understanding of [...] back cell phone number ( ) Source: [facility] POWERCHART Document Id: [id number] Miscellaneous - Faye Yadav M.D. - 03/20/2017 7:29 PM CDT Ambulatory Patient Summary Delfino Brown [address] [place] [id number] Visit Information Name: CHIP MAI [facility] Number: [id number] Current Date: 03/20/2017 19:29:32 Physicians [...] Wheezing use with spacer chamber Routed to [address] [address] amLODIPine (amLODIPine 10 mg oral tablet) 1 Tablet(s), Oral, once a day Routed to [address] [address] aspirin (aspirin 81 mg oral [...] Sting This is a CHANGE Routed to [address] [address] folic acid (folic acid 0.4 mg oral tablet) 400 mcg, Oral, once a day Routed to [address] [address] gabapentin (gabapentin 300 mg oral capsule) 1 cap, Oral, three times a day Routed to [address] [address] ibuprofen (ibuprofen 200 mg oral [...] 30-60 minutes before trigger food Routed to [address] [address] polyethylene glycol 3350 (polyethylene glycol 3350 oral powder for reconstitution) See Instructions Mix and use as directed for colonoscopy prep. thiamine (thiamine 100 mg oral tablet) 1 Tablet(s), Oral, once a day Routed to [address] [address] Stop Taking the Following Medications: [...] if you dont have one. Go to [email or web address] and click on Create Your Account. Then, follow the directions to complete the online form. Youll be asked for your [facility] number which you can find at the top of this document. Your Goals/Additional instructions: Source: [facility] POWERCHART Document Id: [id number] Miscellaneous - Faye Yadav M.D. - 03/20/2017 7:29 PM CDT Ambulatory Discharge Medication List [address] [id number] Visit Information Name: SERGEI CHIP JACQUI [facility] Number: [id number] Current Date: 03/20/2017 19:29:30 Attending Provider: FAYE YADAV MD Primary Care Provider: FAYE YADAV MD SANDINIESHACHIP WHITING has been given the following list of [...] Wheezing use with spacer chamber Routed to [address] [address] amLODIPine (amLODIPine 10 mg oral tablet) 1 Tablet(s), Oral, once a day Routed to [address] [address] aspirin (aspirin 81 mg oral [...] Sting This is a CHANGE Routed to [address] [address] folic acid (folic acid 0.4 mg oral tablet) 400 mcg, Oral, once a day Routed to [address] [address] gabapentin (gabapentin 300 mg oral capsule) 1 cap, Oral, three times a day Routed to [address] [address] ibuprofen (ibuprofen 200 mg oral [...] 30-60 minutes before trigger food Routed to [address] [address] polyethylene glycol 3350 (polyethylene glycol 3350 oral powder for reconstitution) See Instructions Mix and use as directed for colonoscopy prep. thiamine (thiamine 100 mg oral tablet) 1 Tablet(s), Oral, once a day Routed to [address] [address] Stop Taking the Following Medications: [...] MD Signed On:20-MAR-2017 19:29:25 Additional Information: Source: [facility] POWERCHART Document Id: [id number] Miscellaneous - Mami Saldaña C.M.A. - 03/20/2017 1:12 PM CDT Adult Rn Mds Intake/History Adult Rn Mds Intake/History Entered On: 03/20/2017 13:13 CDT Performed On: 03/20/2017 13:12 CDT by MAMI SALDAÑA [facility] Intake Chief Complaint : medication refills [...] Mass Index : 23.87 kg/m2 MAMI SALDAÑA [facility] - 03/20/2017 13:12 CDT General Info Information Given By : Patient Languages : Mongolian Is Patient Female and 13-50 no hysterectomy : No MMAI SALDAÑA [facility] - 03/20/2017 13:12 CDT Subjective Pain Symptoms : No MAMI SALDAÑA CMA - 03/20/2017 13:12 CDT Dependent Habits Exposure [...] : 3-4 cups MAMI SALDAÑA CMA - 03/20/2017 13:12 CDT Source: [facility] POWERCHART Document Id: [id number] CDT!36 Miscellaneous - Mami Saldaña C.M.A. - 03/20/2017 1:11 [...] : Not difficult at all MAMI SALDAÑA [facility] - 03/20/2017 13:11 CDT [facility] Document Id: [id number] CDT!13 Miscellaneous - Mami Saldaña C.M.A. - 03/20/2017 1:10 PM CDT Health Assessment [...] Yes Alcohol Use : Yes MAMI SALDAÑA [facility] - 03/20/2017 13:10 CDT Caffeine Use Grid Caffeine Use : Current Type : Coffee Frequency : Daily Amount : 3-4 cups MAMI SALDAÑA [facility] - 03/20/2017 13:10 CDT AUDIT Tool How Often Do You Have A Drink : 4 or more times a week How Many Drinks in a Day When Drinking : 3 or 4 Six or More Drinks On One Occassion : Never Audit Phase 1 Score : 5 MAMI SALDAÑA [facility] 03/20/2017 13:10 CDT Psychosocial Domestic Abuse Concerns : None Behavioral Health Screen/Safety Assmt : No Taoist Preference : Unknown MAMI SALDAÑA [facility] - 03/20/2017 13:10 CDT Advance Directive Advanced Directives : No Advance Directive Additional Information : No MAMI SALDAÑA [facility] - 03/20/2017 13:10 CDT Educ Needs Learning Style Preference Adult Grid Patient : None Family : None MAMI SALDAÑA [facility] 03/20/2017 13:10 CDT Source: [facility] Document Id: [id number] CDT!42 documented in this encounter Plan of Treatment Upcoming Encounters Date Type Specialty Care Team Description 10/10/2022 Office Visit Neurology Karin Ramachandran M.D., M.P.H. [address] [phone] (Wo rk) documented as of this encounter Visit Diagnoses Not on filedocumented in this encounter Additional Health Concerns Assessment Noted Time PHQ-9 Depression Total Score: 6 03/20/2017 1:11 PM CDT documented as of this encounter
--- OUTSIDE RECORDS SUMMARY | 2022-10-01 11:04 | XMS_ITS | Encounter Summary ---
:1960 Author Organization [facility] Address [address] [place] [address] Care Team Providers Name Role Phone Unavailable Primary Care Provider Unavailable Encounter Details Date Type Department Care Team Description 03/20/2016 Hospital Encounter [facility] Aurelia Yadav M.D. [address] [place] [address] (Wo rk) Social History Tobacco [...] OF PRESENT ILLNESS Patient was hospitalized at [place] from 03/11- for alcohol withdrawal seizure. She [...] 3-5mg as needed for sleep instead. 8. Maintenance Health () Patient plans to do colonoscopy after her chest CT is done. Orders: Comprehensive Metabolic Panel I spent more than 20 minutes of this 30 minute appointment in counseling on management of alcohol and tobacco dependence. RTC 2-3 weeks for recheck. Electronically Signed By: FAYE YADAV MD On: 03/20/2016 04:30 PM Source: [employer] POWERM-Changa Document Id: [id number] documented in this encounter Miscellaneous Notes Miscellaneous - Conversion, Historical Provider Ser - 04/12/2016 8:37 AM CDT Schedule Follow-Up Visit April 12, 2016 CHIP MAI [address] [place] [id number] Dear CHIP MAI, Our records indicate that you are due for fasting labs for Dr. Yadav prior to your next appointment with her. Please call us to make an appointment at your convenience. Our telephone number for scheduling an appointment is [phone]. Your health is important to us. If you have already made an appointment for this or have had the procedure done, please disregard this notice. Sincerely, SHENG RAASCH Electronic Signature Electronically Signed By: SHENG WHYTE On: April 12, 2016 This document has images extracted. Source: [facility] POWERCHART Document Id: [id number] Miscellaneous - Faye Yadav M.D. - 03/21/2016 2:12 PM CDT Normal Results Letter March 21, 2016 CHIP MAI [address] [place] [id number] Dear CHIP MAI, I am pleased to [...] 03/20/2016 9.8 10/17/2015 8.6 - 10.3 Sincerely, FYAE YADAV [address] [place] [id number] Electronic Signature Electronically Signed By: FAYE YDAAV MD On: March 21, 2016 This document has images extracted. Source: [facility] POWERCHART Document Id: [id number] Electronically signed by Gabriela [facility] Electrician Assistant [id number] at 04/20/2017 12:24 PM CDT Miscellaneous - Faye Yadav M.D. - 03/20/2016 4:31 PM CDT Ambulatory Patient Summary [address] [id number] Visit Information Name: CHIP MAI [facility] Number: [id number] Current Date: 03/20/2016 16:31:24 Physicians Attending Provider: FAYE YADAV MD Primary Care Provider: FAYE YADAV MD SANDIBEL CHIP JACQUI has been given the following list [...] Oral, once a day New Routed to [address] [address] gabapentin (gabapentin 300 mg oral capsule) 1 cap, Oral, three times a day New Routed to [id number] [id number] ibuprofen (ibuprofen 200 mg oral capsule) See [...] Oral, once a day New Routed to [address] [address] Stop Taking the Following Medications: zolpidem (Ambien [...] Location Provider 04/10/2016 08:45 JHON Barrett MD, [facility] Attention: Contact your local Clinic if [...] you dont have one. Go to [email or web address] and click on Create Your Account. Then, follow the directions to complete the online form. Youll be asked for your [facility] number which you can find at the top of this document. Your Goals/Additional instructions: Source[facility] POWER[facility] Document Id: [id number] Miscellaneous - Faye Yadav M.D. - 03/20/2016 4:31 PM CDT Ambulatory Discharge Medication List [address] [id number] Visit Information Name: CHIP MAI [facility] Number: [id number] Visit Date: 03/20/2016 16:31:23 [...] Oral, once a day New Routed to [facility] [address] [address] gabapentin (gabapentin 300 mg oral capsule) 1 cap, Oral, three times a day New Routed to [id number] [address] ibuprofen (ibuprofen 200 mg oral [...] Oral, once a day New Routed to [place] [address]693 [address] [address] Stop Taking the Following Medications: zolpidem (Ambien [...] MD Signed On:20-MAR-2016 16:31:06 Additional Information: Source: [facility] POWERCHART Document Id: [id number] Miscellaneous - Mami Saldaña, C.M.A. - 03/20/2016 10:16 AM CDT Adult Program Mgr Intake/History Adult Program Mgr Intake/History Entered On: 03/20/2016 10:17 CDT Performed On: 03/20/2016 10:16 CDT by MAMI SALDAÑA [facility] Intake Chief Complaint : hospital follow-up Temperature [...] Mass Index : 23.44 kg/m2 MAMI SALDAÑA [employer]ARD [employer] - 03/20/2016 10:16 CDT General Info Information Given By : Patient Languages : New Zealander Is Patient Female and 13-50 no hysterectomy : No MAMI SALDAÑA [facility] - 03/20/2016 10:16 CDT Subjective Pain Symptoms : No MAMI SALDAÑA [facility] - 03/20/2016 10:16 CDT Dependent Habits Exposure to Tobacco Smoke : Patient smokes, Other: .5-1 PPD Smoking Status : Former smoker Tobacco 2A : Yes Tobacco Use/Currently Using : No Tobacco Use/Last 30 Days : Yes Tobacco Use/Last 12 months : Yes Type : Cigarettes: Less than 20 per day Tobacco Use/Advised to Quit : Yes MAMI SALDAÑA [facility] - 03/20/2016 10:16 CDT Caffeine Use Grid Caffeine Use : Current Type : Coffee Frequency : Daily Amount : 3-4 cups MAMI SALDAÑA [facility] - 03/20/2016 10:16 CDT Source: [facility] XZERES Document Id: [id number] CDT!34 documented in this encounter Plan of Treatment Upcoming Encounters Date Type Specialty Care Team Description 10/10/2022 Office Visit Neurology Karin Ramachandran M.D., M.P.H. [address] [phone] (Wo rk) documented [...] POWERCHART MGDL eGFR >60 >=60 POWERCHART Black/ [id number] Gambian HXeGFR (MDRD) >60 >=60 POWERCHART [id number] Comment: Results are in mL/min/1.73m CKD Stage [...]
--- OUTSIDE RECORDS SUMMARY | 2022-10-01 11:04 | XMS_ITS | Encounter Summary ---
:1960 Author Organization [facility] Address [address] [place] [address] Care Team Providers Name Role Phone Unavailable Primary Care Provider Unavailable Encounter Details Date Type Department Care Team Description 05/19/2014 Hospital Encounter HX [facility] Aurelia Grigsby M.D. [address] [place], [place] [phone] (Wo rk) Social History [...] Follow-Up Visit 02 March 2015 ZANDRA MAI [address] [place] [id number] Dear ZANDRA MAI, Our records indicate that you are due for a follow up appointment with Dr. Yadav. Please call us to make an appointment at your convenience. Our telephone number for scheduling an appointment is [phone]. Your health is important to us. If you have already made an appointment for this or have had the procedure done, please disregard this notice. Sincerely, SHENG WHYTE Electronic Signature Electronically Signed By: SHENG WHYTE On: 02 March 2015 This document has images extracted. Source: [facility] POWERCHART Document Id: [id number] Miscellaneous - Anita Roa L.P.N. - 06/03/2014 11:40 AM CDT *General Message Document Contains Addenda Addendum by ANITA ROA LPN on 04 June 2014 09:07:31 CDT Message relayed to pt, voiced understanding/agreement Addendum by FAYE YADAV MD on 03 June 2014 17:38:11 CDT From: FAYE YADAV MD To: [facility] Nurse; Sent: 06/03/2014 17:38:11 CDT Subject: RE: *General Message Okay, I recommend follow up with allergy even if symptoms have resolved again by then. She should beseen sooner in primary care or if symptoms worsen. From: ANITA ROA LPN ([facility] Nurse) To: FAYE YADAV MD; Sent: 06/03/2014 11:40:59 CDT Subject: *General Message FYI - Pt just wanted to give you an update. Cancelled her ENT appt that was scheduled for May 09 because she had her voice back. Is now losing her voice again, and feels heavy chested. Has an appt in with disc jockey scheduled for June 21 Source: [facility] POWERCHART Document Id: [id number] Electronically signed by Conversion, [facility] Fire Production Operator [id number] at 04/23/2017 2:26 AM CDT Miscellaneous - Faye Yadav M.D. - 05/25/2014 5:02 PM CDT Normal Results Letter 25 May 2014 ZANDRA MAI [id number] [place] [id number] Dear ZANDRA MAI, I am pleased to [...] 22 - 45 - Sincerely, FAYE YADAV [address] [place] [address] Electronic Signature Electronically Signed By: FAYE YADAV MD On: 25 May 2014 This document has images extracted. Source: [facility] POWERCHART Document Id: [id number] Electronically signed by Conversion, [facility] Fire Production Operator [id number] at 04/23/2017 2:26 AM CDT documented in this encounter Plan of Treatment Upcoming Encounters Date Type Specialty Care Team Description 10/10/2022 Office Visit Neurology Karin Ramachandran M.D., M.P.H. [address] [phone] (Wo rk) documented as [...] Comment: Test Performed by: [facility] [address] [address] Advertising Analyst: Yuri alston III, M.D. Specimen (Source) Anatomical [...]
--- OUTSIDE RECORDS SUMMARY | 2022-10-01 11:04 | XMS_ITS | Encounter Summary ---
:1960 Author Organization [facility] Address [address] [place] [address] Care Team Providers Name Role Phone Unavailable [...] Visit Neurology Karin Ramachandran M.D., M.P.H. [address] [phone] (Wo rk) documented [...] POCT, Urine (lab) (03/11/2016 8:52 AM CDT) [facility] Method Time Signature Ketone, POCT, 1+ (A) Negative [facility] Specific 1.020 1.001 - [facility] [place], 1.035 LABORATORIES - POCT, [facility] Blood, POCT, Negative Negative [facility] pH, POCT, 6.0 5.0 - 8.0 [facility] Urine [facility] Nitrites, Negative Negative [facility] POCT, [facility] Leukocytes, Negative Negative [facility] POCT, [facility] Glucose, Negative Negative [facility] POCT, [facility] Bilirubin, Negative Negative [facility] POCT, [facility] Protein, Trace (A) Negative [facility] POCT, [facility] Urobilinogen, 0.2 0.2 - 1.0 [facility] POCT, Urine [facility] Specimen Anatomical Collection Method Collection Time Receive d Time (Source) Location / / Volume Laterality 03/11/2016 8:52 AM 6 8:52 CDT AM CDT Historical Provider LAB POCT ORDERABLES - DEVICE Performing Organization Address City/[facility]/ZIP Code Phon e Number [facility] LABORATORIES - [address] [place] [address] [facility] (ABNORMAL) CBC with Differential (03/11/2016 8:51 AM CDT) [facility] Method Time Signature Hemoglobin 12.6 12.0 - [facility] 15.5 G/DL LABORATORIES - [facility] Hematocrit 36.9 34.9 - [facility] 44.5 % LABORATORIES - [facility] Leukocytes 13.1 (H) 3.5 - [facility] 10.5 LABORATORIES - X10(9)/L [facility] Neutrophils 11.25 (H) 1.70 - [facility] 7.00 LABORATORIES - X10(9)/L [facility] Erythrocytes 3.56 (L) 3.90 - [facility] 5.03 LABORATORIES - X10(12)/L [facility] MCV 103.7 (H) 81.6 - [facility] 98.3 FL LABORATORIES - [facility] RBC Distrib 13.4 11.9 - [facility] Width 15.5 % LABORATORIES - [facility] Platelet Count 257 150 - 450 [facility] X10(9)/L LABORATORIES - [facility] Lymphocytes 0.49 (L) 0.90 - [facility] 2.90 LABORATORIES - X10(9)/L [facility] Monocytes 1.28 (H) 0.30 - [facility] 0.90 LABORATORIES - X10(9)/L [facility] Eosinophils 0.03 (L) 0.05 - [facility] 0.50 LABORATORIES - X10(9)/L [facility] Basophils 0.03 0.00 - [facility] 0.30 LABORATORIES - X10(9)/L [facility] Specimen Anatomical Collection Method Collection Time Receive d Time (Source) Location / / Volume Laterality 03/11/2016 8:51 AM 6 8:51 CDT AM CDT Joshua Shine M.D. LAB BLOOD ADD-ON Performing Organization Address City/State/ZIP Code Phon e Number [facility] LABORATORIES - [address] [place], [place] [address] [facility] (ABNORMAL) BMP (Basic Metabolic Panel) (03/11/2016 8:51 AM CDT) Patholo gist Method Time Signature Sodium, P 134 (L) 135 - 145 [facility] MMOL/L LABORATORIES - [facility] Potassium, P 3.7 3.6 - 5.2 [facility] MMOL/L LABORATORIES - [facility] eGFR >60 >60 [facility] Non-Black/Afric ML/MIN/BS LABORATORIES - an Kyrgyz A [facility] eGFR-Black/Afri >60 >60 [facility] can Kyrgyz ML/MIN/BS LABORATORIES - A [facility] Chloride, S 94 (L) 98 - 107 [facility] MMOL/L LABORATORIES - [facility] Creatinine 0.5 (L) 0.6 - 1.1 [facility] MG/DL LABORATORIES - [facility] BUN (Blood Urea 7 6 - 21 [facility] Nitrogen), S MG/DL [facility] - [facility] HX Bicarbonate, 21 (L) 22 - 29 [facility] P/S MMOL/L LABORATORIES - [facility] Glucose, S 105 70 - 140 [facility] MG/DL [facility] - [facility] Anion Gap 19 (H) 7 - 15 [facility] Specimen Anatomical Collection Method Collection Time Receive d Time (Source) Location / / Volume Laterality 03/11/2016 8:51 AM 6 8:51 CDT AM CDT Joshua Shine M.D. LAB BLOOD ADD-ON Performing Organization Address City/[facility] Phon e Number [facility] LABORATORIES - [address] Thiamine (Vitamin B1), Whole Blood (03/11/2016 8:50 AM CDT) P athologist Signature Thiamine 125 70 - 180 [facility] (Vitamin B1), NMOL/L LABORATORIES - WB [facility] Specimen Anatomical Collection Method Collection Time Receive d Time (Source) Location / / Volume Laterality 03/11/2016 8:50 AM 6 8:50 CDT AM CDT Joshua Shine M.D. LAB BLOOD NON ADD-ON Performing Organization Address City/[facility] Phon e Number [facility] LABORATORIES - [address] [place] [address] [facility] Lactate (03/11/2016 8:50 AM CDT) P athologist Signature Lactate, P 0.8 0.6 - 2.3 [facility] MMOL/L LABORATORIES [facility] Specimen Anatomical Collection Method Collection Time Receive d Time (Source) Location / / Volume Laterality 03/11/2016 8:50 AM 6 8:50 CDT AM CDT Joshua Shine M.D. LAB BLOOD NON ADD-ON Performing Organization Address City/[facility]/ZIP Code Phon e Number [facility] LABORATORIES - [address] [place] [address] [facility] (ABNORMAL) Magnesium (03/11/2016 5:55 AM CDT) Analysis Performed At Path logist Time Signature Magnesium, S 1.5 (L) 1.7 - 2.3 [facility] MG/DL LABORATORIES - [facility] Specimen Anatomical Collection Method Collection Time Receive d Time (Source) Location / / Volume Laterality 03/11/2016 5:55 AM 6 5:55 CDT AM CDT Jennifer Almanzar M.D. LAB BLOOD ADD-ON Performing Organization Address City/[facility]/ZIP Code Phon e Number [facility] LABORATORIES - [address] [place], [place] [address] [facility] (ABNORMAL) Calcium, Total (03/11/2016 5:55 AM CDT) [employer] gist Method Time Signature Calcium, 10.5 (H) 8.9 - [facility] Total, S 10.1 LABORATORIES - MG/DL [facility] Specimen Anatomical Collection Method Collection Time Receive d Time (Source) Location / / Volume Laterality 03/11/2016 5:55 AM 6 5:55 CDT AM CDT Jennifer Almanzar M.D. LAB BLOOD ADD-ON Performing Organization Address City/[facility]/ZIP Code Phon e Number [facility] LABORATORIES - [address] [place] [address] [facility] (ABNORMAL) CBC with Differential (03/11/2016 5:55 AM CDT) [employer] gist Method Time Signature Hemoglobin 13.2 12.0 - [facility] 15.5 G/DL [facility] Hematocrit 37.2 34.9 - [facility] 44.5 % [facility] RBC Distrib 12.9 11.9 - [facility] Width 15.5 % [facility] Platelet Count 264 150 - 450 [facility] X10(9)/L LABORATORIES - [facility] Leukocytes 12.9 (H) 3.5 - [facility] 10.5 LABORATORIES - X10(9)/L [facility] Neutrophils 11.06 (H) 1.70 - [facility] 7.00 LABORATORIES - X10(9)/L [facility] Lymphocytes 0.52 (L) 0.90 - [facility] 2.90 LABORATORIES - X10(9)/L [facility] Monocytes 1.21 (H) 0.30 - [facility] 0.90 LABORATORIES - X10(9)/L [facility] Eosinophils 0.09 0.05 - [facility] 0.50 LABORATORIES - X10(9)/L [facility] Basophils 0.02 0.00 - [facility] 0.30 LABORATORIES - X10(9)/L [facility] Erythrocytes 3.65 (L) 3.90 - [facility] 5.03 LABORATORIES - X10(12)/L [facility] MCV 101.9 (H) 81.6 - [facility] 98.3 FL LABORATORIES - [facility] Specimen Anatomical Collection Method Collection Time Receive d Time (Source) Location / / Volume Laterality 03/11/2016 5:55 AM 6 5:55 CDT AM CDT Isreal Vaca M.D. LAB BLOOD ADD-ON Performing Organization Address City/State/[facility] Code Phon e Number [facility] LABORATORIES - [address] [place] [address] [facility] Ethanol Level, Serum (03/11/2016 5:55 AM CDT) P athologist Signature Ethanol, S <10 <10 MG/DL [facility] Specimen Anatomical Collection Method Collection Time Receive d Time (Source) Location / / Volume Laterality 03/11/2016 5:55 AM 6 5:55 CDT AM CDT Isreal Vaca M.D. LAB BLOOD NON ADD-ON Performing Organization Address City/[facility] Code Phon e Number [facility] LABORATORIES - [address] [place] [address] [facility] (ABNORMAL) BMP (Basic Metabolic Panel) (03/11/2016 5:55 AM CDT) Patholo gist Method Time Signature Sodium, P 129 (L) 135 - 145 [facility] MMOL/L LABORATORIES [facility] Potassium, P 4.1 3.6 - 5.2 [facility] MMOL/L LABORATORIES - [facility] BUN (Blood Urea 7 6 - 21 [facility] Nitrogen), S MG/DL LABORATORIES - [facility] HX Bicarbonate, 25 22 - 29 [facility] P/S MMOL/L LABORATORIES - [facility] Chloride, S 88 (L) 98 - 107 [facility] MMOL/L LABORATORIES - [facility] Creatinine 0.6 0.6 - 1.1 [facility] MG/DL LABORATORIES - [facility] eGFR >60 >60 [facility] Non-Black/Afric ML/MIN/BS LABORATORIES - [place]yr[place] A [facility] eGFR-Black/Afri >60 >60 [facility] can [place]yr[place] ML/MIN/BS LABORATORIES - A [facility] Glucose, S 111 70 - 140 [facility] MG/DL LABORATORIES - [facility] Anion Gap 16 (H) 7 - 15 [facility] LABORATORIES - [facility] Specimen Anatomical Collection Method Collection Time Receive d Time (Source) Location / / Volume Laterality 03/11/2016 5:55 AM 6 5:55 CDT AM CDT Isreal Vaca M.D. LAB BLOOD ADD-ON Performing Organization Address City/[facility]/ZIP Code Phon e Number [facility] LABORATORIES - [address] [place] [address] [facility] Lactate (03/11/2016 5:55 AM CDT) P athologist Signature Lactate, P 1.3 0.6 - 2.3 [facility] MMOL/L [facility] - [facility] Specimen Anatomical Collection Method Collection Time Receive d Time (Source) Location / / Volume Laterality 03/11/2016 5:55 AM 6 5:55 CDT AM CDT Isreal Vaca M.D. LAB BLOOD NON ADD-ON Performing Organization Address City/[facility] Code Phon e Number [facility] LABORATORIES - [address] [place] [address] [facility] (ABNORMAL) CK (Creatine Kinase) (03/11/2016 5:55 AM CDT) Patholo gist Method Time Signature Creatine 560 (H) 38 - 176 [facility] Kinase (CK), S U/L LABORATORIES - [facility] Specimen Anatomical Collection Method Collection Time Receive d Time (Source) Location / / Volume Laterality 03/11/2016 5:55 AM 6 5:55 CDT AM CDT Isreal Vaca M.D. LAB BLOOD ADD-ON Performing Organization Address City/State/ZIP Code Phon e Number [facility] LABORATORIES - [address] [place] [address] [facility] documented in this encounter Visit Diagnoses Not on filedocumented in this encounter Additional Health Concerns Assessment Noted Time PHQ-9 Depression Total Score: 10 10/17/2015 9:46 AM CS T documented as of this encounter
--- OUTSIDE RECORDS SUMMARY | 2022-10-01 11:04 | XMS_ITS | Encounter Summary ---
:1960 Author Organization [facility] Address [address] [place] [address] Care Team Providers Name Role Phone Unavailable Primary Care Provider Unavailable Encounter Details Date Type Department Care Team Description 01/07/2013 Hospital Encounter HX NO MAPPING Abelardo Liao M.D. [address] [place], [place] [phone] (Wo rk) Social History Tobacco Use Types Packs/Day Years Used Date Smoking Tobacco: Never Assessed Sex Assigned at Date Recorded Female 07/10/2022 7:32 AM CDT documented as of this encounter Plan of Treatment Upcoming Encounters Date Type Specialty Care Team Description 10/10/2022 Office Visit Neurology Karin Ramachandran M.D., M.P.H. [address], [place] [phone] (Wo rk) documented as of this encounter Visit Diagnoses Not on filedocumented in this encounter
--- OUTSIDE RECORDS SUMMARY | 2022-10-01 11:04 | XMS_ITS | Encounter Summary ---
:1960 Author Organization [facility] Address [address] [place] [address] Care Team Providers Name Role Phone Unavailable Primary Care Provider Unavailable Encounter Details Date Type Department Care Team Description 05/04/[address] [facility] Aurelia Yadav M.D. [address] [place] [phone] (Wo rk) Social History Tobacco [...] her throat closing up and wasseen at [facility]. She felt her lips felt funny [...] has had a few reactions like this. [facility] ED note and discharge paperwork reviewed. MEDICATIONS albuterol CFC free [...] been on lisinopril aswas questioned in her [facility] ED notes. She is referred to allergy/immunology and is willing to wait until our matcher in [place] is available. Laryngitis: Difficult to tell now [...] YADAV MD On: 05/04/2014 01:21 PM Source: [facility] [employer] Document Id: [id number] documented in this encounter Miscellaneous Notes Miscellaneous - Chari Amador R.N. - 10/14/2014 5:00 PM CST Med Management Document Contains Addenda Addendum by FAYE YADAV MD on 15 October 2014 07:43:42 [employer] From: FAYE YADAV MD Sent: 10/15/2014 07:43:42 [employer] Subject: RE:Med Management Approved Order:zolpidem (Ambien CR 6.25 mg oral tablet, extended release) 1 tab(s) PO Bedtime do not crush orchew Qty: 30 tab(s) Refills: 3 Substitutions Allowed PRN Sleep Print - [email or web address] [facility] in [place] fax [phone] Signed by FAYE YADAV MD 10/15/2014 07:43:31 From: CHARI AMADOR RN ( Nurseline/Refill Nurse) To: FAYE YADAV MD; Sent: 10/14/2014 17:00:15 [employer] Subject: Med Management On hold pending signature Order:zolpidem (Ambien CR 6.25 mg oral tablet, extended release) 1 tab(s) PO Bedtime do not crush orchew Qty: 30 tab(s) Refills: 3 Substitutions Allowed PRN Sleep Print - [email or web address] [facility] in [place] fax [phone] REFILL HAS NOT BEEN REVIEWED BY RN REFILL POOL. [facility] POWERCHART Document Id: [id number] Electronically signed by Gabriela [facility] Centerdheeraj Hutchins [id number] at 04/23/2017 9:02 PM CDT Miscellaneous - Conversion, Historical Provider Ser - 05/04/2014 2:39 PM CDT General Message Document Contains Addenda Addendum by TAMIKO RICHARD on 07 May 2014 10:55:24 CDT Pt notified, she will stop in next week. From: ELISSA JARAMILLO CMA ([facility] Nurse) To: [facility] Procurement Professional; Sent: 05/04/2014 14:39:05 CDT Subject: General Message Please call patient to schedule lab appointment per Dr. Yadav. Patient can come anytime, sooner rather than later she says. Does NOT need to be fasting per Dr. Yadav. Source: [facility] POWERCHART Document Id: [id number] Miscellaneous - Faye Yadav M.D. - 05/04/2014 10:16 AM CDT Ambulatory Patient Summary [address] [id number] Visit Information Name: ZANDRA MAI [facility] Number: [id number] Current Date: 05/04/2014 10:16:39 Physicians [...] appointment detail needed. Your Goals/Additional instructions: Source: [facility] POWERCHART Document Id: [id number] Miscellaneous - Faye Yadav M.D. 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/History Adult Package Clerk Intake/History Entered On: 05/04/2014 9:25 CDT Performed On: 05/04/2014 9:23 CDT by ELISSA JARAMILLO [facility] Intake Chief Complaint : ER F/U 04/01-- [...] Weight Clinic : 58.6 kg ELISSA JARAMILLO [facility] - 05/04/2014 9:23 CDT General Info Information Given By : Patient Languages : Montserratian ELISSA JARAMILLO [facility] - 05/04/2014 9:23 CDT Subjective Pain Symptoms : No ELISSA JARAMILLO [facility] - 05/04/2014 9:23 CDT Dependent Habits Tobacco Use/Currently Using : Yes Exposure to Tobacco Smoke : Patient smokes Smoking Status : Current every day smoker ELISSA JARAMILLO [facility] - 05/04/2014 9:23 CDT Tobacco Use Grid Type : Cigarettes Cigarette Use Packs/Day : 0.5 ELISSA JARAMILLO [facility] - 05/04/2014 9:23 CDT Source: [facility] POWERCHART Document Id: [id number] CDT!30 documented in this encounter Plan of Treatment Upcoming Encounters Date Type Specialty Care Team Description 10/10/2022 Office Visit Neurology Karin Ramachandran M.D., M.P.H. [address] [place] [phone] (Wo rk) documented as of this [...] Strep A Screen (05/04/2014 9:55 AM CDT) [facility] Signature HXRapid Strep POWERCHART Confirmation [...] Strep A Screen (05/04/2014 9:55 AM CDT) [facility] Method Time Signature HXStrep A POWERCHART Screen Rapid HXFinal Negative for POWERCHART Strep Group A by rapid screen. HXFinal Culture POWERCHART confirmation to follow. Specimen (Source) Anatomical Collection Method Collection Time Re ceived Time Location / / Volume Laterality Throat 05/04/2014 9:55 AM CDT Faye Yadav M.D. LAB MICROBIOLOGY - GENERAL O RDDAMIAN Performing Organization Address City/State/ZIP Code Phon e Number POWERCHART documented in this encounter Visit Diagnoses Not on filedocumented in this encounter Additional Health Concerns Assessment Noted Time PHQ-9 Depression Total Score: 3 03/18/2014 3:18 PM CDT documented as of this encounter
--- OUTSIDE RECORDS SUMMARY | 2022-10-01 11:04 | XMS_ITS | Encounter Summary ---
:1960 Author Organization [facility] Address [address] [place] [address] Care Team Providers Name Role Phone Unavailable Primary Care Provider Unavailable Encounter Details Date Type Department Care Team Description 04/13/2015 Hospital Encounter [facility]X [facility] Natalia Sepulveda M.D. [address] [facility] [place] [phone] (Wo rk) Social History Tobacco Use [...] vomiting, lightheadedness. She has been seen in [place] emergency room for evaluation and management in [...] to environmental allergens demonstrated indeterminate reaction to [place] but with otherwise negative with appropriate positive histamine control response. Please seescanned skin prick testing form for details. IMPRESSION/REPORT/PLAN 1. Angioedema Initial Ordered: C1 Esterase Inhibitor Functional Quant*-[place] 14999 C4 Complement, Functional*-[place] 75123 CBC (includes Auto Differential) Complement C3-[place] 8174 Comprehensive Metabolic Panel OV Consult Level 3 - 85111 - 40 min Percutaneous Tests Charge Tryptase-[place] 25380 TSH Plus (Ft4 If Indicated) 2. Conjunctivitis Chronic Allergic Ordered: OV Consult Level 3 - 43063 - 40 min Percutaneous Tests Charge 3. Abuse Tobacco Smoking NOS Ordered: OV Consult Level 3 - 33532 - 40 min Orders: Return Visit Allergy [...] angioedema attack but since she lives in [place] and her attacks have involved subjective laryngeal [...] SEPULVEDA MD On: 04/13/2015 04:28 PM Source: [employer] Document Id: [id number] documented in this encounter Nursing Notes Natalia Sepulveda M.D. - 04/13/2015 12:05 PM CDT Ambulatory Patient Education The following Patient Education Materials have been given to the patient: Patient Education Materials: Ambulatory ANGIOEDEMA Ambulatory Angioedema Angioedema (pronounced bpqth-r-ykvrl) is a sudden appearance of swollen patches [...] Trouble breathing ?? Severe abdominal pains ?? [phone] Alida Hanson, [address] [place] [address], [place] [address]. All rights reserved. This information is not intended as a substitute for professional medical care. Always follow your healthcare professional's instructions. Source: [facility] POWERCHART Document Id: [id number] documented in this encounter Miscellaneous Notes Miscellaneous - Natalia Sepulveda M.D. - 04/13/2015 12:05 PM CDT Ambulatory Patient Summary [facility] [address] [place], [address] LIZETH [place] [phone] Visit Information Name: ZANDRA MAI [facility] Number: [id number] Current Date: 04/13/2015 12:05:51 Physicians Attending Provider: NATALIA SEPULVEDA MD Primary Care Provider: ÁNGEL YADAV MD SANDINIESHAZANDRA WHITING has been given the following list of follow-up instructions, medication list, and patient education materials: Follow-up Instructions With: Address: When: NATALIA SEPULVEDA [address] [place] [address] [place] [address] Business (1) In 6 months 10/14/2015 Comments: [...] not crush or chew / [facility] in [place] fax [phone] * You have let us know that [...] further appointment detail needed. Angioedema Angioedema (pronounced smrvd-x-sdmtm) is a sudden appearance of swollen patches [...] Trouble breathing ?? Severe abdominal pains ?? [phone] [place] [address]. All rights reserved. This information is not intended as a substitute for professional medical care. Always follow your healthcare professional's instructions. Your Goals/Additional instructions: Source: [facility] POWERCHART Document Id: [id number] Miscellaneous - Natalia Sepulveda M.D. - 04/13/2015 12:05 PM CDT Ambulatory Discharge Medication List [address] [facility] [address] [place], [place] [phone] Visit Information Name: ZANDRA MAI [facility] Number: [id number] Visit Date: 04/13/2015 12:05:50 Attending [...] not crush or chew / [facility] in [place] fax [phone] * You have let us know that [...] [facility] POWERCHART Document Id: [id number] Miscellaneous - Alexandra Alonso REvansNEvans - 04/13/2015 11:08 AM CDT Adult Animal Technician Intake/History Adult Animal Technician Intake/History Entered On: 04/13/2015 11:12 CDT Performed On: 04/13/2015 11:08 CDT by ALEXANDRA ALONSO prototype engineer manager Chief Complaint : allergy consult Temperature Core [...] Information Given By : Patient Languages : Nepali Is Patient Female and 13-50 no hysterectomy [...] 11:08 CDT Source: [facility] POWERCHART Document Id: [id number] CDT!30 documented in this encounter Plan of Treatment Upcoming Encounters Date Type Specialty Care Team Description 10/10/2022 Office Visit Neurology Karin Ramachandran M.D., M.P.H. [address] [phone] (Wo rk) documented as of this encounter Visit Diagnoses Not on filedocumented in this encounter Additional Health Concerns Assessment Noted Time PHQ-9 Depression Total Score: 3 03/18/2014 3:18 PM CDT documented as of this encounter
--- OUTSIDE RECORDS SUMMARY | 2022-10-01 11:04 | XMS_ITS | Encounter Summary ---
:1960 Author Organization [facility] Address [address] [place] [address] Care Team Providers Name Role Phone Unavailable [...] Karin Ramachandran M.D., M.P.H. [address] [place], [place] [phone] (Wo rk) documented as [...] CBC with Differential (03/13/2016 5:06 AM CDT) [facility] Method Time Signature Erythrocytes 3.60 (L) 3.90 - [facility] 5.03 LABORATORIES - X10(12)/L [facility] MCV 102.5 (H) 81.6 - [facility] 98.3 FL LABORATORIES - [facility] RBC Distrib 13.5 11.9 - [facility] Width 15.5 % LABORATORIES - [facility] Platelet Count 227 150 - 450 [facility] X10(9)/L LABORATORIES - [facility] Lymphocytes 1.02 0.90 - [facility] 2.90 LABORATORIES - X10(9)/L [facility] Monocytes 0.68 0.30 - [facility] 0.90 LABORATORIES - X10(9)/L [facility] Hemoglobin 12.5 12.0 - [facility] 15.5 G/DL LABORATORIES - [facility] Hematocrit 36.9 34.9 - [facility] 44.5 % LABORATORIES - [facility] Leukocytes 11.3 (H) 3.5 - [facility] 10.5 LABORATORIES - X10(9)/L [facility] Neutrophils 9.27 (H) 1.70 - [facility] 7.00 LABORATORIES - X10(9)/L [facility] Eosinophils 0.25 0.05 - [facility] 0.50 LABORATORIES - X10(9)/L [facility] Basophils 0.03 0.00 - [facility] 0.30 LABORATORIES - X10(9)/L [facility] Specimen Anatomical Collection Method Collection Time Receive d Time (Source) Location / / Volume Laterality 03/13/2016 5:06 AM 6 5:06 CDT AM CDT Sunday Juarez M.D. LAB BLOOD ADD-ON Performing Organization Address City/[facility] Code Phon e Number [facility] LABORATORIES - [address] [phone] [facility] (ABNORMAL) CK (Creatine Kinase) (03/13/2016 5:06 AM CDT) [facility] gist Method Time Signature Creatine 359 (H) 38 - 176 [facility] Kinase (CK), S U/L LABORATORIES - [facility] Specimen Anatomical Collection Method Collection Time Receive d Time (Source) Location / / Volume Laterality 03/13/2016 5:06 AM 6 5:06 CDT AM CDT Sunday Juarez M.D. LAB BLOOD ADD-ON Performing Organization Address City/[facility] Phon e Number [facility] LABORATORIES - [address] [phone] [facility] (ABNORMAL) Electrolyte (Chem 4) Panel (03/13/2016 5:06 AM CDT) [facility] Method Time Signature Sodium, S 134 (L) 135 - 145 [facility] MMOL/L LABORATORIES - [facility] Potassium, S 3.5 (L) 3.6 - 5.2 [facility] MMOL/L LABORATORIES - [facility] Creatinine 0.5 (L) 0.6 - 1.1 [facility] MG/DL LABORATORIES - [facility] eGFR >60 >60 [facility] Non-Black/Afric ML/MIN/BS LABORATORIES - an Vietnamese A [facility] Anion Gap 16 (H) 7 - 15 [facility] LABORATORIES [facility] Glucose, S 95 70 - 140 [facility] MG/DL LABORATORIES - [facility] Chloride, S 96 (L) 98 - 107 [facility] MMOL/L [facility] HX Bicarbonate, 22 22 - 29 [facility] P/S MMOL/L [facility] - [facility] eGFR-Black/Afri >60 >60 [facility] can Vietnamese ML/MIN/BS LABORATORIES - [facility] BUN (Blood Urea 6 6 - 21 [facility] Nitrogen), S MG/DL LABORATORIES - [facility] Specimen Anatomical Collection Method Collection Time Receive d Time (Source) Location / / Volume Laterality 03/13/2016 5:06 AM 6 5:06 CDT AM CDT Sunday Juarez M.D. LAB BLOOD ADD-ON Performing Organization Address City/State/ZIP Code Phon e Number [facility] LABORATORIES - [address] [phone] [facility] (ABNORMAL) Electrolyte (Chem 4) Panel (03/12/2016 6:36 AM CDT) [facility] Method Time Signature Sodium, S 134 (L) 135 - 145 [facility] MMOL/L LABORATORIES - [facility] Potassium, S 4.6 3.6 - 5.2 [facility] MMOL/L LABORATORIES [facility] Chloride, S 96 (L) 98 - 107 [facility] MMOL/L [facility] HX Bicarbonate, 26 22 - 29 [facility] P/S MMOL/L LABORATORIES [facility] Creatinine 0.6 0.6 - 1.1 [facility] MG/DL [facility] - [facility] eGFR >60 >60 [facility] Non-Black/Afric ML/MIN/BS LABORATORIES - an Vietnamese A [facility] eGFR-Black/Afri >60 >60 [facility] can Vietnamese ML/MIN/BS LABORATORIES - A [facility] BUN (Blood Urea 5 (L) 6 - 21 [facility] Nitrogen), S MG/DL LABORATORIES - [facility] Anion Gap 12 7 - 15 [facility] LABORATORIES - [facility] Glucose, S 84 70 - 140 [facility] MG/DL LABORATORIES - [facility] Specimen Anatomical Collection Method Collection Time Receive d Time (Source) Location / / Volume Laterality 03/12/2016 6:36 AM 6 6:36 CDT AM CDT Solange Ceja M.D. LAB BLOOD ADD-ON Performing Organization Address City/State/ZIP Code Phon e Number [facility] LABORATORIES - [address] [place], [place] [address] [facility] (ABNORMAL) CBC with Differential (03/12/2016 6:36 AM CDT) [facility] gist Method Time Signature Hemoglobin 12.4 12.0 - [facility] 15.5 G/DL LABORATORIES - [facility] Hematocrit 36.5 34.9 - [facility] 44.5 % LABORATORIES - [facility] Leukocytes 7.5 3.5 - [facility] 10.5 LABORATORIES - X10(9)/L [facility] Neutrophils 5.31 1.70 - [facility] 7.00 LABORATORIES - X10(9)/L [facility] Erythrocytes 3.56 (L) 3.90 - [facility] 5.03 LABORATORIES - X10(12)/L [facility] MCV 102.5 (H) 81.6 - [facility] 98.3 FL LABORATORIES - [facility] RBC Distrib 13.9 11.9 - [facility] Width 15.5 % LABORATORIES - [facility] Platelet Count 263 150 - 450 [facility] X10(9)/L LABORATORIES - [facility] Lymphocytes 1.16 0.90 - [facility] 2.90 LABORATORIES - X10(9)/L [facility] Monocytes 0.73 0.30 - [facility] 0.90 LABORATORIES - X10(9)/L [facility] Eosinophils 0.25 0.05 - [facility] 0.50 LABORATORIES - X10(9)/L [facility] Basophils 0.02 0.00 - [facility] 0.30 LABORATORIES - X10(9)/L [facility] Specimen Anatomical Collection Method Collection Time Receive d Time (Source) Location / / Volume Laterality 03/12/2016 6:36 AM 6 6:36 CDT AM CDT Solange Ceja M.D. LAB BLOOD ADD-ON Performing Organization Address City/State/ZIP Code Phon e Number [facility] LABORATORIES - [address] [phone] [facility] Phosphorus Inorganic (03/12/2016 6:36 AM CDT) Analysis Performed At Patho logist Time Signature Phosphorus 3.5 2.5 - 4.5 [facility] (Inorganic), S MG/DL LABORATORIES [facility] Specimen Anatomical Collection Method Collection Time Receive d Time (Source) Location / / Volume Laterality 03/12/2016 6:36 AM 6 6:36 CDT AM CDT Solange Ceja M.D. LAB BLOOD ADD-ON Performing Organization Address City/[facility]/ZIP Code Phon e Number [facility] LABORATORIES - [address] [phone] [facility] (ABNORMAL) CK (Creatine Kinase) (03/12/2016 6:36 AM CDT) Patholo gist Method Time Signature Creatine 894 (H) 38 - 176 [facility] Kinase (CK), S U/L [facility] Specimen Anatomical Collection Method Collection Time Receive d Time (Source) Location / / Volume Laterality 03/12/2016 6:36 AM 6 6:36 CDT AM CDT Solange Ceja M.D. LAB BLOOD ADD-ON Performing Organization Address City/[facility]/ZIP Code Phon e Number [facility] LABORATORIES - [address] [phone] [facility] Magnesium (03/12/2016 6:36 AM CDT) P athologist Signature Magnesium, S 2.2 1.7 - 2.3 [facility] MG/DL [facility] Specimen Anatomical Collection Method Collection Time Receive d Time (Source) Location / / Volume Laterality 03/12/2016 6:36 AM 6 6:36 CDT AM CDT Solange Ceja M.D. LAB BLOOD ADD-ON Performing Organization Address City/State/ZIP Code Phon e Number [facility] LABORATORIES - [address] [phone] [facility] Calcium, Total (03/12/2016 6:36 AM CDT) P athologist Signature Calcium, 9.4 8.9 - 10.1 [facility] Total, S MG/DL LABORATORIES [facility] Specimen Anatomical Collection Method Collection Time Receive d Time (Source) Location / / Volume Laterality 03/12/2016 6:36 AM 6 6:36 CDT AM CDT Solange Ceja M.D. LAB BLOOD ADD-ON Performing Organization Address City/[facility]/ZIP Code Phon e Number [facility] LABORATORIES - [address] [phone] [facility] Calcium, Total (03/11/2016 5:22 PM CDT) P athologist Signature Calcium, 9.1 8.9 - 10.1 [facility] Total, S MG/DL [facility] Specimen Anatomical Collection Method Collection Time Receive d Time (Source) Location / / Volume Laterality 03/11/2016 5:22 PM 6 5:22 CDT PM CDT Solange Ceja M.D. LAB BLOOD ADD-ON Performing Organization Address City/[facility]/ZIP Code Phon e Number [facility] LABORATORIES - [address] (ABNORMAL) Magnesium (03/11/2016 5:22 PM CDT) Analysis Performed At Patho logist Time Signature Magnesium, S 1.5 (L) 1.7 - 2.3 [facility] MG/DL [facility] Specimen Anatomical Collection Method Collection Time Receive d Time (Source) Location / / Volume Laterality 03/11/2016 5:22 PM 6 5:22 CDT PM CDT Solange Ceja M.D. LAB BLOOD ADD-ON Performing Organization Address City/[facility]/ZIP Code Phon e Number [facility] LABORATORIES - [address] [phone] [facility] Phosphorus Inorganic (03/11/2016 5:22 PM CDT) Analysis Performed At Patho logist Time Signature Phosphorus 3.3 2.5 - 4.5 [facility] (Inorganic), S MG/DL LABORATORIES - [facility] Specimen Anatomical Collection Method Collection Time Receive d Time (Source) Location / / Volume Laterality 03/11/2016 5:22 PM 6 5:22 CDT PM CDT Solange Ceja M.D. LAB BLOOD ADD-ON Performing Organization Address City/[facility]/ZIP Code Phon e Number [facility] LABORATORIES - [address], [place] [address] [facility] Vitamin B12 and Folate (03/11/2016 5:22 PM CDT) P athologist Signature Folate, S 8.0 >=4.0 [facility] MCG/L LABORATORIES - [facility] Vitamin B12 877 180 - 914 [facility] Assay, S NG/L LABORATORIES - [facility] Specimen Anatomical Collection Method Collection Time Receive d Time (Source) Location / / Volume Laterality 03/11/2016 5:22 PM 6 5:22 CDT PM CDT Solange Ceja M.D. LAB BLOOD NON ADD-ON Performing Organization Address City/State/[facility] Code Phon e Number [facility] LABORATORIES - [address], [place] [address] [facility] (ABNORMAL) Electrolyte (Chem 4) Panel (03/11/2016 5:22 PM CDT) Patholo gist Method Time Signature Chloride, S 94 (L) 98 - 107 [facility] MMOL/L LABORATORIES - [facility] HX Bicarbonate, 22 22 - 29 [facility] P/S MMOL/L LABORATORIES [facility] Creatinine 0.5 (L) 0.6 - 1.1 [facility] MG/DL LABORATORIES - [facility] eGFR >60 >60 [facility] Non-Black/Afric ML/MIN/BS LABORATORIES - Vietnamese A [facility] Anion Gap 15 7 - 15 [facility] Glucose, S 83 70 - 140 [facility] MG/DL LABORATORIES - [facility] Sodium, S 131 (L) 135 - 145 [facility] MMOL/L [facility] - [facility] Potassium, S 4.0 3.6 - 5.2 [facility] MMOL/L [facility] eGFR-Black/Afri >60 >60 [facility] can Vietnamese ML/MIN/BS LABORATORIES - A [facility] BUN (Blood Urea 6 6 - 21 [facility] Nitrogen), S MG/DL LABORATORIES [facility] Specimen Anatomical Collection Method Collection Time Receive d Time (Source) Location / / Volume Laterality 03/11/2016 5:22 PM 6 5:22 CDT PM CDT Solange Ceja M.D. LAB BLOOD ADD-ON Performing Organization Address City/State/ZIP Code Phon e Number [facility] LABORATORIES - [address] [place], [place] [address] [facility] DX Chest AP or PA and Lateral [...] AM 6 9:36 CDT AM CDT Narrative [facility] - 03/12/2016 7:56 AM CDT 11-MAR-2016 URINE, MIDSTREAM, ?SoftOrd# [id number] ?(Ordered 11-MAR-2016; Collec more 11-MAR-2016 09:09; Received 11-MAR-2016 09:35) ?[facility] ?BACTERIAL CULTURE, AEROBIC + CHAIDEZ SC ? (Reported 12-MAR-2016 07:56) FINAL ?Mixed yoshi. Procedure Note 02/27/2018 11-MAR-2016 URINE, MIDSTREAM, SoftOrd# [id number] (Ordered 11-MAR-2016; Collected 2015 09:09; Received 11-MAR-2016 09:35) [facility] BACTERIAL CULTURE, AEROBIC + SUSC (Rep orted 12-MAR-2016 07:56) FINAL Mixed yoshi. Isreal Vaca M.D. LAB MICROBIOLOGY - GENERAL O RDERABLES Performing Organization Address City/State/ZIP Code Phon e Number [facility] LABORATORIES - [address], [place] [address] [facility] (ABNORMAL) Gram Stain, Confirmatory, Urine (03/11/2016 9:09 AM CDT) [facility] Method Time Signature Grams Stain, Positive (A) [facility] Confirmatory, LABORATORIES - Urine [facility] Comment: Many Gram-positive bacilli ? Bacteria on epithelial cells ? Specimen Anatomical Collection Method Collection Time Receive d Time (Source) Location / / Volume Laterality 03/11/2016 9:09 AM 6 9:09 CDT AM CDT Isreal Vaca M.D. LAB URINE ORDERABLES Performing Organization Address City/State/[facility] Phon e Number [facility] - [address] [place], [place] [address] [facility] Gram Stain, Urine (03/11/2016 9:09 AM CDT) athologist Signature Gram's Stain, . [facility] Screen, U LABORATORIES - [facility] Comment: Screen positive. See Gram Stain Confirma tory for staining ? result. ? Specimen Anatomical Collection Method Collection Time Receive d Time (Source) Location / / Volume Laterality 03/11/2016 9:09 AM 6 9:09 CDT AM CDT Isreal Vaca M.D. LAB URINE ORDERABLES Performing Organization Address [facility] Phon e Number [facility] - [address] [place] [address] [facility] Drug Abuse Survey, Urine (03/11/2016 9:09 AM CDT) [facility] Method Time Signature Ethanol Negative NEGATIVE [facility] Immunoassay LABORATORIES - Screen [facility] Barbiturates, Negative NEGATIVE [facility] Screen, U LABORATORIES [facility] Opiates Negative NEGATIVE [facility] Phencyclidine Negative NEGATIVE [facility] LABORATORIES [facility] Benzodiazepines, Negative NEGATIVE [facility] Screen, U LABORATORIES - [facility] Cocaine Negative NEGATIVE [facility] Immunoassay LABORATORIES - Screen [facility] Tetrahydrocannabi . NEGATIVE [facility] nol, U [facility] Comment: Presumptive Positive Amphetamines, U . NEGATIVE [facility] LA BORATORIES [facility] Comment: Presumptive Positive Specimen Anatomical Collection Method Collection Time Receive d Time (Source) Location / / Volume Laterality 03/11/2016 9:09 AM 6 9:09 CDT AM CDT Isreal Vaca M.D. LAB URINE ORDERABLES Performing Organization Address [facility] Code Phon e Number [facility] LABORATORIES - [address] [place] [phone] 05 [facility] (ABNORMAL) Urinalysis with Microscopic (03/11/2016 9:09 AM CDT) [facility] Method Time Signature Source Midstream [facility] Osmolality, 290 150 - [facility] 24 HR, U 1150 LABORATORIES - MOSM/KG [facility] Glucose 12 0 - 15 [facility] MG/DL [facility] Protein, U 21 <22 MG/DL [facility] Comment: ? ADDITIONAL INFORMATIO N ? On 06/07/2014 the total protein assay me thod changed resulting ? in approximately a 20% increase in prote in values. ? pH, 24 HR, U 5.9 4.5 - 8.0 [facility] LABOR ATORIES [facility] Appearance Normal Normal [facility] LABORAT [facility] Protein/Osmolality 0.72 (H) <0.27 [facility] Comment: ? ADDITIONAL INFORMATIO N ? On 06/07/2014 the total protein assay me thod changed resulting ? in approximately a 20% increase in prote in values. ? Predicted 24 Hr Protein 499 MG/24 H [facility] LINIC [facility] Predicted Range 123-2020 MG/24 H [facility] Hemoglobin, QL Negative Negative [facility] Specimen Anatomical Collection Method Collection Time Receive d Time (Source) Location / / Volume Laterality 03/11/2016 9:09 AM 6 9:09 CDT AM CDT Isreal Vaca M.D. LAB URINE ORDERABLES Performing Organization Address City/State/ZIP Code Phon e Number [facility] LABORATORIES - [address] [place], [place] [address] [facility] (ABNORMAL) Microscopic Manual (03/11/2016 9:09 AM CDT) Patholo gist Method Time Signature Casts, Hyaline 4-10 /LPF [facility] LABORATORIES [facility] Squamous 1-3 /HPF [facility] Epithelial LABORATORIES [facility] Microscopy Abnormal [facility] WBC 1-3 1-3 [facility] (Males); LABORATORIES - 1-10 [facility]Fem[facility] /HPF Bacteria Present (A) [facility] Specimen Anatomical Collection Method Collection Time Receive d Time (Source) Location / / Volume Laterality 03/11/2016 9:09 AM 6 9:09 CDT AM CDT Isreal Vaca M.D. LAB URINE ORDERABLES Performing Organization Address [facility] Phon e Number [place] [phone] [facility] (ABNORMAL) CK (Creatine Kinase) (03/11/2016 8:50 AM CDT) [facility] Method Time Signature Creatine 767 (H) 38 - 176 [facility] Kinase (CK), S U/L [facility] Specimen Anatomical Collection Method Collection Time Receive d Time (Source) Location / / Volume Laterality 03/11/2016 8:50 AM 6 8:50 CDT AM CDT Joshua Shine M.D. LAB BLOOD ADD-ON Performing Organization Address City/[facility] Code Phon e Number [facility] [address] [address] [facility] Ethanol Level, Serum (03/11/2016 8:50 AM CDT) P athologist Signature Ethanol, S <10 <10 MG/DL [facility] Specimen Anatomical Collection Method Collection Time Receive d Time (Source) Location / / Volume Laterality 03/11/2016 8:50 AM 6 8:50 CDT AM CDT Joshua Shine M.D. LAB BLOOD NON ADD-ON Performing Organization Address City/[facility]/ZIP Code Phon e Number [facility] [address] [phone] [facility] (ABNORMAL) Osmolality (03/11/2016 8:50 AM CDT) [facility] Method Time Signature Osmolality, S 263 (L) 275 - 295 [facility] MOSM/KG [facility] Specimen Anatomical Collection Method Collection Time Receive d Time (Source) Location / / Volume Laterality 03/11/2016 8:50 AM 6 8:50 CDT AM CDT Solange Ceja M.D. LAB BLOOD ADD-ON Performing Organization Address City/State/ZIP Code Phon e Number [facility] LABORATORIES - [address] [place], [place] [address] [facility] [address] Head without IV Contrast (03/11/2016 7:00 [...] M.D. LAB BLOOD ADD-ON Performing Organization Address City/[facility]/ZIP Code Phon e Number [facility] LABORATORIES - [address] [place], [place] [address] [facility] ALT (Alanine Aminotransferase) (03/11/2016 5:55 AM CDT) [facility] Method Time Signature Alanine 35 7 - 45 [facility] Aminotransferase U/L LABORATORIES - (ALT), S [facility] Specimen Anatomical Collection Method Collection Time Receive d Time (Source) Location / / Volume Laterality 03/11/2016 5:55 AM 6 5:55 CDT AM CDT Darryl Bahena M.D. LAB BLOOD ADD-ON Performing Organization Address City/[facility] Phon e Number [facility] LABORATORIES - [address] [place], [place] [address] [facility] Alkaline Phosphatase (03/11/2016 5:55 AM CDT) P athologist Signature Alkaline 83 46 - 118 [facility] Phosphatase, S U/L [facility] Specimen Anatomical Collection Method Collection Time Receive d Time (Source) Location / / Volume Laterality 03/11/2016 5:55 AM 6 5:55 CDT AM CDT Darryl Bahena M.D. LAB BLOOD ADD-ON Performing Organization Address City/[facility] Phon e Number [facility] LABORATORIES - [address] [place], [place] [address] [facility] (ABNORMAL) Bilirubin, Total (03/11/2016 5:55 AM CDT) Patholo gist Method Time Signature Bilirubin, 1.3 (H) <=1.2 [facility] Total, S MG/DL LABORATORIES [facility] Specimen Anatomical Collection Method Collection Time Receive d Time (Source) Location / / Volume Laterality 03/11/2016 5:55 AM 6 5:55 CDT AM CDT Darryl Bahena M.D. LAB BLOOD ADD-ON Performing Organization Address City/State/ZIP Code Phon e Number [facility] LABORATORIES - [address] [place] [phone] [facility] (ABNORMAL) Albumin (03/11/2016 5:55 AM CDT) P athologist Signature Albumin, S 5.1 (H) 3.5 - 5.0 [facility] G/DL LABORATORIES - [facility] Specimen Anatomical Collection Method Collection Time Receive d Time (Source) Location / / Volume Laterality 03/11/2016 5:55 AM 6 5:55 CDT AM CDT Darryl Bahena M.D. LAB BLOOD ADD-ON Performing Organization Address City/[facility]/ZIP Code Phon e Number [facility] LABORATORIES - [address] [place] [phone] [facility] documented in this encounter Visit Diagnoses Not on filedocumented in this encounter Additional Health Concerns Assessment Noted Time PHQ-9 Depression Total Score: 10 10/17/2015 9:46 AM CS T documented as of this encounter
--- OUTSIDE RECORDS SUMMARY | 2022-10-01 11:04 | XMS_ITS | Encounter Summary ---
:1960 Author Organization [facility] Address [address] [place] [address] Care Team Providers Name Role Phone Unavailable Primary Care Provider Unavailable Encounter Details Date Type Department Care Team Description 03/17/2014 Hospital Encounter HX [facility] Esvin Patterson M.D. [address] [place], [place] [phone] (Wo rk) Social History [...] AM CDT General Message From: MAMI SALDAÑA HEALTH MANAGER ([facility] Nurse) Sent: 04/05/2014 10:13:43 CDT Subject: General Message Prior Auth approval received for patients Zolpiden ER tab 6.25. Approval valid from 03/25/2014 to 03/25/2015 See scanned form Source: [facility] POWERCHART Document Id: [id number] Electronically signed by Gabriela, [facility] Numerical Control Machine Machinist [id number] at 04/22/2017 9:43 PM CDT documented in this encounter Plan of Treatment Upcoming Encounters Date Type Specialty Care Team Description 10/10/2022 Office Visit Neurology Karin Ramachandran M.D., M.P.H. [address] [phone] (Wo rk) documented as of this encounter Visit Diagnoses Not on filedocumented in this encounter
--- OUTSIDE RECORDS SUMMARY | 2022-10-01 11:04 | XMS_ITS | Encounter Summary ---
:1960 Author Organization [facility] Address [address] [place] [address] Care Team Providers Name Role Phone Unavailable Primary Care Provider Unavailable Encounter Details Date Type Department Care Team Description 05/01/2016 Hospital Encounter HX [facility] Aurelia Yadav M.D. [address] [place] [phone] (Wo rk) Social History Tobacco [...] frequency Screening Hepatitis C Once Born Between 3348-4844 due 05/01/16 One-time only Vaccine: Pneumococcal 23-Valent [...] months on 10/17/15. Satisfied by MAMI SALDAÑA [facility] Health Assessment every 1 year on 10/17/15. Satisfied by MAMI SALDAÑA [facility] Lipid Panel every 5 years Age 20-75 on 10/17/15. Satisfied by CONY RODRIGUEZ LA([facility]) Screening Colonoscopy or Flex Sig or Occult Blood on 11/14/15. Satisfied by FAYE YADAV MD Screening Diabetes Blood Glucose every 3 years Age 18-70 (Risk Factors) on 10/17/15. Satisfied by CONY RODRIGUEZ LA([facility]) Screening Mammogram every 1 year Women 40-75 on 02/15/16. Satisfied by ANITA TORREZ Screening Pap Smear every 3 years Women Age 30-65 on 10/17/15. Satisfied by JAYE BRAY DPAnn Vaccine: Flu every 1 year on 10/03/15. Satisfied by MARCO ANTONIO RANDLE [employer] Weight down 3kg in 6 [...] # 20 tab(s), 0 Refill(s), Acute, Pharmacy: [facility][id number] Benign Essential Hypertension Higher than normal today, but in light of acute illness, will not change regimen. Recheck in 3 weeks. Ordered: doxycycline, 100 mg = 1 tab(s), PO, 2xDay, x 10 day(s), # 20 tab(s), 0 Refill(s), Acute, Pharmacy: [facility][id number] Bronchitis Acute Due to duration and course, [...] # 20 tab(s), 0 Refill(s), Acute, Pharmacy: [facility][id number] Loss Weight Advised to stop drinking altogether. [...] # 20 tab(s), 0 Refill(s), Acute, Pharmacy: [facility][id number] Orders: Comprehensive Metabolic Panel Return Visit Internal Med - Extended Return Visit Internal Med - Extended I spent more than 20 minutes of this 30 minute appointment in counseling on management of lung disease, alcohol abuse, and tobacco cessation. Electronically Signed By: FAYE YADAV MD On: 05/01/2016 10:00 AM Source: [facility] [email or web address] Document Id: [id number] documented in this encounter Miscellaneous Notes Miscellaneous - Nanci Hinojosa, REvansN. - 08/06/2017 4:49 PM CDT Med Management Document Contains Addenda Addendum by FAYE YADAV MD on August 07, 2017 07:54:21 CDT From: FAYE YADAV MD Sent: 08/07/2017 07:54:21 CDT Subject: RE:Med Management Approved with modifications: Order:gabapentin (gabapentin 300 mg oral capsule) 1 cap(s) PO 3xDay Qty: 90 cap(s) Refills: 1 Substitutions Allowed Route To Pharmacy - [facility] #[id number] Signed by FAYE YADAV MD 08/07/2017 07:54:16 [...] 0 Substitutions Allowed Route To Pharmacy - [facility] #[id number] Source: [facility] POWERCHART Document Id: [id number] Telephone Encounter - Monica Rodrigues R.N. - 05/10/2016 9:44 AM CDT *Phone Message Document Contains Addenda Addendum by FAYE YADAV MD on May 11, 2016 14:32:29 CDT Noted. I don't have anything more to add at the moment, as I have offered and patient has declined referral to in/outpatient treatment program. Agree with advice as below. Will follow up at visit. José Miguel's # added to sticky note with MYLENE. [...] so. I did also provide daughter with [facility] to talk to someone about [...] back cell phone number ( x )José Miguel'dheeraj number, Source: [facility] POWERCHART Document Id: [id number] Electronically signed by Conversion, [facility] Gut Sorter [id number] at 04/20/2017 9:33 PM CDT Miscellaneous - Faye Yadav M.D. - 05/02/2016 5:46 PM CDT Normal Results Letter May 02, 2016 [place] [id number] [address] [id number] Dear CHIP MAI, I am pleased to [...] Chest 2 Views 05/01/2016 Sincerely, FAYE YADAV [address] [place] [address] Electronic Signature Electronically Signed By: FAYE YADAV MD On: May 02, 2016 This document has images extracted. Source: [facility] POWERCHART Document Id: [id number] Electronically signed by Gabriela [facility] Gut Sorter [id number] at 04/20/2017 9:33 PM CDT Telephone Encounter - Diogenes Ireland C.MLaw - 05/01/2016 4:44 PM CDT *Phone Message Document Contains Addenda Addendum by MAMI SALDAÑA CMA on May 02, 2016 08:17:05 CDT Patient notified of x-ray results, voiced understanding and no further questions at this time Addendum by FAYE YADAV MD on May 01, 2016 17:20:30 CDT From: FAYE YADAV MD To: [facility] Nurse ([facility]); Sent: 05/01/2016 17:20:30 CDT Subject: RE: *Phone Message Please let her know CXR was read as normal! I will send lab results in a letter. From: DIOGENES IRELAND CMA ([facility] Nurse (DAY CARE WORKER/[facility])) To: FAYE YADAV MD; Sent: 05/01/2016 16:44:42 CDT Subject: *Phone Message Caller is: ( ) Patient ( ) Mother ( ) Father ( ) Spouse ( ) Daughter ( ) Son ( ) Pharmacy ( ) Other: Physician: Patient MRN #: Reason for Call: Pt wondering about xray results from this morning. [phone] Message: Advice/Action: Source used: ( ) Verbalizes [...] back cell phone number ( ) Source: [facility] [employer] Document Id: [id number] Electronically signed by [facility] Sorter [id number] at 04/20/2017 9:33 PM CDT Sean - Mami Saldaña C.M.A. - 05/01/2016 10:23 AM CDT PHQ-9 PHQ-9 Entered On: 05/01/2016 10:24 CDT Performed On: 05/01/2016 10:23 CDT by MAMI SALDAÑA [facility] PHQ-9 Little interest or pleasure in doing [...] : Not difficult at all MAMI SALDAÑA [facility] - 05/01/2016 10:23 CDT Source: [facility] POWERCHART Document Id: [id number] CDT!13 Sean - Faye Yadav M.D. - 05/01/2016 10:01 AM CDT Ambulatory Patient Summary [address] [id number] Visit Information Name: [facility] Number: [id number] Current Date: 05/01/2016 10:01:32 [...] day x 10 day(s) New Routed to [address] [address] EPINEPHrine (EpiPen 2-Reg 0.3 mg [...] Appointments Date Time Location Provider 05/23/2016 08:45 [facility] Faye Yadav MD Attention: [...] online form. [facility]ll be asked [facility] number which you can find at the top of this document. Your Goals/Additional instructions: Source: [facility] POWERCHART Document Id: [id number] Miscellaneous - Faye Yadav M.D. - 05/01/2016 10:01 AM CDT Ambulatory Discharge Medication List [address] [id number] Visit Information Name: [facility] Number: [id number] Visit Date: 05/01/2016 10:01:30 Attending Provider: FAYE YADAV MD Primary Care Provider: FAYE YADAV MD SANDICHIP STAPLES has been given the following list of [...] day x 10 day(s) New Routed to [place] [id number] [address] EPINEPHrine (EpiPen 2-Reg 0.3 mg [...] MD Signed On:01-MAY-2016 10:01:24 Additional Information: Source: [facility] POWERCHART Document Id: [id number] Miscellaneous - Mami Saldaña CEvansMEvansAEvans - 05/01/2016 8:45 AM CDT [facility] Eligibility [facility] Eligibility Entered On: 05/01/2016 8:45 CDT Performed On: 05/01/2016 8:45 CDT by MAMI SALDAÑA CMA [facility] Eligibility Provided [facility] eligibility information : No MAMI SALDAÑA CMA - 05/01/2016 8:45 CDT Source: [employer] Document Id: [id number] CDT!3 Miscellaneous - Mami Saldaña CEvansMEvansAEvans - 05/01/2016 8:21 AM CDT Adult Lifeguard Intake/History Adult Lifeguard Intake/History Entered On: 05/01/2016 8:22 CDT Performed [...] Information Given By : Patient Languages : Malay Is Patient Female and 13-50 no hysterectomy [...] SALDAÑA CMA - 05/01/2016 8:21 CDT Source: [facility] POWERCHART Document Id: [id number] CDT!34 documented in this encounter Plan of Treatment Upcoming Encounters Date Type Specialty Care Team Description 10/10/2022 Office Visit Neurology Karin Ramachandran M.D., M.P.H. [address] [phone] (Wo rk) documented as of this encounter Procedures Procedure Name Priority Date/Time Associated Comments Diagnosis COMPREHENSIVE Routine 05/01/2016 7:37 AM Results for this METABOLIC PANEL, S/P CDT procedu re are in the results section. documented in this encounter Results (ABNORMAL) CMP (Comprehensive Metabolic Panel) (05/01/2016 7:37 AM CDT) [employer] gist Method Time Signature Alanine 21 7 [...] POWERCHART MGDL eGFR Black/ >60 >=60 POWERCHART [employer] [id number] 2 HXeGFR (MDRD) >60 >=60 POWERCHART [id number] 2 Comment: Results are in mL/min/1.73m CKD [...]
--- OUTSIDE RECORDS SUMMARY | 2022-10-01 11:04 | XMS_ITS | Encounter Summary ---
:1960 Author Organization [facility] Address [address] [place] [address] Care Team Providers Name Role Phone Unavailable Primary Care Provider Unavailable Encounter Details Date Type Department Care Team Description 10/17/2015 Hospital Encounter HX [facility] Aurelia Yadav M.D. [address] [place] [address] (Wo rk) Social History Tobacco Use Types Packs/Day Years Used Date Smoking Tobacco: Never Assessed Sex Assigned at Date Recorded Female 07/10/2022 7:32 AM CDT documented as of this encounter Last Filed Vital Signs Vital Sign Reading Time Taken Comments Blood Pressure 136/82 10/17/2015 9:48 AM INSTALLATION ENGINEER Pulse 100 10/17/2015 9:48 AM INSTALLATION ENGINEER Temperature - - Respiratory Rate - - Oxygen Saturation - - Inhaled Oxygen Concentration - - Weight 59.1 kg (130 lb 4.7 oz) 10/17/2015 9:48 AM INSTALLATION ENGINEER Height 160 cm (5' 2.99) 10/17/2015 9:48 AM INSTALLATION ENGINEER Body Mass Index 23.09 10/17/2015 9:48 AM INSTALLATION ENGINEER documented in this encounter Medications at Time [...] months on 10/17/15. Satisfied by MAMI SALDAÑA [facility] Health Assessment every 1 year on 10/17/15. Satisfied by MAMI SALDAÑA [facility] Vaccine: Flu every 1 year on 10/03/15. Satisfied by MARCO ANTONIO RANDLE [facility]: no unexplained fevers, [...] on quitting. Patient is contemplative. Referred to [place] Quit Plan for more resources. Follow up as needed. Albuterol refilled for prn use. Consider PFTs. 5. Maintenance Health (HM) Due for mammogram. Ordered. Pap test ordered with cotesting. Colonoscopy ordered for November in [place]. 6. R hand pain Recommend decreasing etOH intake as this could represent neuropathy. Does not seem consistent with CTS at this time, but could reconsider if persistent. RTC 1 year or sooner if needed. Electronically Signed By: FAYE YADAV MD On: 10/17/2015 04:53 PM Source: [facility] POWERCHART Document Id: [id number] ALLATION ENGINEER documented in this encounter Nursing Notes Mami [...] time! So, don't give up! Go Cold Given: Most ex-smokers quit cold turkey. Trying to [...] the free national Quitline for more information. 465-KGHK-OAJ (447-932-9818). Low-cost or free programs are offered by many hospitals,local chapters of the [place] Lung Association (026-423-2852) and the [place] Cancer Society (676-468-7412). Support at home is important too. Non-smokers can help by offering praise and encouragement. If the smoker fails to quit, encourage them to try again! Wexz-Gih-Yyqzxni Medicines: For those who can't quit on [...] visit the following links: ?? National Cancer [place] , Clearing the Air, Quit Smoking Today - an online booklet. http://www.smokefree.gov/pubs/clearing_the_air.pdf ?? Smokefree.gov http://smokefree.gov/ ?? QuitNet http://www.quitnet.com/ ?? [place] [address]. All rights reserved. This information is not intended as a substitute for professional medical care. Always follow your healthcare professional's instructions. This document has images extracted. Please consider using [employer] for all your patient education needs. Source: [facility] POWERCHART Document Id: [id number] ALLATION ENGINEER documented in this encounter Miscellaneous Notes Miscellaneous - Faye Yadav M.D. - 11/01/2015 7:43 AM CST Normal Results Letter 01 November 2015 CHIP MAI [id number] [place] [id number] Dear CHIP MAI, I am pleased to [...] Current Result Laboratory-Scanned 10/17/2015 Sincerely, FAYE YADAV [address] [place] [address] Electronic Signature Electronically Signed By: FAYE YADAV MD On: 01 November 2015 This document has images extracted. Source: [facility] GoodClic Document Id: [id number] Electronically signed by Gabriela, [facility] Technical Rep [id number] at 04/22/2017 6:25 AM CDT Miscellaneous - Faye Yadav M.D. - 10/17/2015 6:21 PM CST Normal Results Letter 17 October 2015 CHIP MAI [address] [place] [phone] Dear CHIP MAI, I am pleased to [...] did put your cholesterol results in the [place] Heart Association/[place] [employer] calculator which showed your [...] 10/17/2015 0.27 - 4.20 Sincerely, FAYE YADAV [facility] [place] [address] Electronic Signature Electronically Signed By: FAYE YADAV MD On: 17 October 2015 This document has images extracted. Source: [facility] POWERCHART Document Id: [id number] Electronically signed by Conversion, [facility] Technical Rep [id number] at 04/22/2017 6:25 AM CDT Miscellaneous - Faye Yadav M.D. - 10/17/2015 4:56 PM CST Ambulatory Patient Summary Delfino Brown [address] [phone] Visit Information Name: SERGEI CHIP OMSAN [facility] Number: [id number] Current Date: 10/17/2015 16:56:45 Physicians [...] Wheezing use with spacer chamber Routed to [address] [address] amLODIPine (amLODIPine 5 mg oral tablet) 5 mg, Oral, once a day Routed to [address] [address] aspirin (aspirin 81 mg oral [...] mcg, Oral, once a day Routed to [place] [id number] [address] loratadine (loratadine 10 mg oral tablet) 1 [...] not crush or chew / Cub in [place] fax [phone] This is a CHANGE Routed to Printer [...] Appointments Date Time Location Provider 11/16/2015 10:40 [facility] Mammo-[facility] JHON HIRSCH RM 1 Attention: Contact your local Clinic [...] time! So, don't give up! Go Cold Given: Most ex-smokers quit cold turkey. Trying to [...] the free national Quitline for more information. 310-VSVC-AHE (503-462-5448). Low-cost or free programs are offered by many hospitals,local chapters of the [place] Lung Association (477-790-1623) and the [place] Cancer Society (226-758-5649). Support at home is important too. Non-smokers can help by offering praise and encouragement. If the smoker fails to quit, encourage them to try again! Mbcc-Bad-Erxiyha Medicines: For those who can't quit on [...] visit the following links: ?? National Cancer [place] , Clearing the Air, Quit Smoking Today - an online booklet. http://www.smokefree.gov/pubs/clearing_the_air.pdf ?? Smokefree.gov http://smokefree.gov/ ?? QuitNet http://www.quitnet.com/ ?? Alida Hanson, [address] [place] [address], [place] [address]. All rights reserved. This information is not [...] if you dont have one. Go to [facility] [email or web address] and click on Create Your Account. Then, follow the directions to complete the online form. Youll be asked for your [facility] number which you can find at the top of this document. Your Goals/Additional instructions: This document has images extracted. Please consider using [employer] for all your patient education needs. Source: [facility] POWERCHART Document Id: [id number] ALLATION ENGINEER Miscellaneous - Faye Yadav M.D. - 10/17/2015 4:56 PM CST Ambulatory Discharge Medication List [address] [phone] Visit Information Name: CHIP MAI [facility] Number: [id number] Visit Date: 10/17/2015 16:56:44 Attending [...] Wheezing use with spacer chamber Routed to [address] [address] amLODIPine (amLODIPine 5 mg oral tablet) 5 mg, Oral, once a day Routed to [address] [address] aspirin (aspirin 81 mg oral [...] mcg, Oral, once a day Routed to [address] [address] loratadine (loratadine 10 mg oral tablet) 1 [...] not crush or chew / Cub in [place] fax [phone] This is a CHANGE Routed to Printer [...] MD Signed On:17-OCT-2015 16:56:35 Additional Information: Source: [facility] POWERCHART Document Id: [id number] ALLATION ENGINEER Miscellaneous - Mami Saldaña C.MLaw - 10/17/2015 11:06 AM CST Ambien From: MAMI SALDAÑA CMA ([facility] Nurse) Sent: 10/17/2015 11:06:14 INSTALLATION ENGINEER Subject: Ambien Rx for Ambien faxed to pharmacy. Source: [facility] POWERCHART Document Id: [id number] Electronically signed by Conversion, [facility] Technical Rep [id number] at 04/22/2017 6:25 AM CDT Miscellaneous - Mami Saldaña C.M.A. - 10/17/2015 9:48 AM CST Adult Career Guidance Technician Intake/History Adult Career Guidance Technician Intake/History Entered On: 10/17/2015 9:52 INSTALLATION ENGINEER Performed On: 10/17/2015 9:48 INSTALLATION ENGINEER by MAMI SALDAÑA CMA Intake Chief Complaint [...] kg/m2 MAMI SALDAÑA CMA - 10/17/2015 9:48 INSTALLATION ENGINEER General Info Information Given By : Patient Languages : Dominican Is Patient Female and 13-50 no hysterectomy : No MMAI SALDAÑA CMA - 10/17/2015 9:48 INSTALLATION ENGINEER Subjective Pain Symptoms : No MAMI SALDAÑA CMA - 10/17/2015 9:48 INSTALLATION ENGINEER Dependent Habits Tobacco Use/Currently Using : Yes Exposure to Tobacco Smoke : Patient smokes, Other: .5-1 PPD Smoking Status : Current every day smoker MAMI SALDAÑA CMA - 10/17/2015 9:48 INSTALLATION ENGINEER Tobacco Use Grid Type : Cigarettes Cigarette Use Packs/Day : 0.5 MAMI SALDA[facility]A [facility] - 10/17/2015 9:48 INSTALLATION ENGINEER Caffeine Use Grid Caffeine Use : Current Type : Coffee Frequency : Daily Amount : 3-4 cups MAMI SALDAÑA [facility] - 10/17/2015 9:48 INSTALLATION ENGINEER Source: [facility] POWERCHART Document Id: [id number] INSTALLATION ENGINEER!37 ALLATION ENGINEER Miscellaneous - Mami Saldaña C.M.A. - 10/17/2015 9:47 AM CST Health Assessment Health Assessment Entered On: 10/17/2015 9:48 INSTALLATION ENGINEER Performed On: 10/17/2015 9:47 INSTALLATION ENGINEER by MAMI SALDAÑA [facility] Health Assessment Complete Health Assessment Complete or Modified : Annual Health Assessment Annual Health Assessment Completed : Yes MAMI SALDAÑA [facility] - 10/17/2015 9:47 INSTALLATION ENGINEER Nutrition Nutrition Risk Factors by History Adult : None MAMI SALDAÑA [facility] - 10/17/2015 9:47 INSTALLATION ENGINEER Functional Current Daily Living Assistance : None MAMI SALDAÑA [facility] - 10/17/2015 9:47 INSTALLATION ENGINEER Dependent Habits Tobacco Use/Currently Using : Yes Exposure to Tobacco Smoke : Patient smokes, Other: .5-1 PPD Smoking Status : Current every day smoker MAMI SALDAÑA [facility] - 10/17/2015 9:47 INSTALLATION ENGINEER Tobacco Use Grid Type : Cigarettes Cigarette Use Packs/Day : 0.5 MAMI SALDAÑA [facility] - 10/17/2015 9:47 INSTALLATION ENGINEER Alcohol Use : Yes MAMI SALDAÑA [facility] - 10/17/2015 9:47 INSTALLATION ENGINEER AUDIT Tool How Often Do You Have A Drink : 4 or more times a week How Many Drinks in a Day When Drinking : 5 or 6 Six or More Drinks On One Occassion : Daily or almost daily Audit Phase 1 Score : 10 MAMI SALDAÑA [facility] - 10/17/2015 9:47 INSTALLATION ENGINEER Psychosocial Domestic Abuse Concerns : None Behavioral Health Screen/Safety Assmt : No Yazdanism Preference : No qualifying data available. MAMI SALDAÑA [facility] - 10/17/2015 9:47 INSTALLATION ENGINEER Advance Directive Advanced Directives : No Advance Directive Additional Information : No MAMI SALDAÑA [facility] - 10/17/2015 9:47 INSTALLATION ENGINEER Educ Needs Learning Style Preference Adult Grid Patient : None Family : None MAMI SALDAÑA [facility] - 10/17/2015 9:47 INSTALLATION ENGINEER Source: [facility] GoodClic Document Id: [id number] INSTALLATION ENGINEER!33 ALLATION ENGINEER Miscellaneous - Mami Saldaña C.M.A. - 10/17/2015 9:46 AM CST PHQ-9 PHQ-9 Entered On: 10/17/2015 9:47 INSTALLATION ENGINEER Performed On: 10/17/2015 9:46 INSTALLATION ENGINEER by MAMI SALDAÑA [facility] PHQ-9 Little interest or pleasure in [...] with others : Somewhat difficult MAMI SALDAÑA [facility] - 10/17/2015 9:46 INSTALLATION ENGINEER Source: [facility] GoodClic Document Id: [id number] INSTALLATION ENGINEER!13 ALLATION ENGINEER documented in this encounter Plan of Treatment Upcoming Encounters Date Type Specialty Care Team Description 10/10/2022 Office Visit Neurology Karin Ramachandran M.D., M.P.H. [address] [phone] (Wo rk) documented as of this encounter Procedures Procedure Name Priority Date/Time Associated Diagnosis Comme nts LIPID PANEL, S Routine 10/17/2015 10:40 AM Result s for this INSTALLATION ENGINEER procedure are i n the results section. THYROID-STIMULATING Routine 10/17/2015 10:40 AM R esults for this HORMONE-SENSITIVE INSTALLATION ENGINEER procedure are in (S-TSH) the results section. BASIC METABOLIC Routine 10/17/2015 10:40 AM Resul ts for this PANEL, S/P INSTALLATION ENGINEER procedure are i n the results section. PATHOLOGY ASSISTANT INFANT TEACHER Routine 10/17/2015 12:00 AM Results for this CYTOLOGY INSTALLATION ENGINEER procedure are i n the results section. documented in this encounter Results (ABNORMAL) BMP (Basic Metabolic Panel) (10/17/2015 10:40 AM INSTALLATION ENGINEER) Analysis Performed At Patho logist Time Signature [...] S MGDL eGFR >60 >=60 POWERCHART Black/ [id number] [place] HXeGFR (MDRD) >60 >=60 POWERCHART [id number] Comment: Results are in mL/min/1.73m CKD Stage I: ? GFR > 90 CKD Stage II: ?GFR 60 to 89 CKD Stage III: ? GFR 30 to 59 CKD Stage IV: ? GFR 15 to 29 CKD Stage V: ?GFR < 15 or Dialysi s Specimen (Source) Anatomical Collection Method Collection Time Re ceived Time Location / / Volume Laterality Blood 10/17/2015 10:40 AM INSTALLATION ENGINEER Faye Yadav M.D. LAB BLOOD ADD-ON Performing Organization Address City/State/ZIP Code Phon e Number POWERCHART Thyroid-Stimulating Hormone-Sensitive (s-TSH) (10/17/2015 10:40 AM INSTALLATION ENGINEER) P athologist Signature TSH 1.84 0.27 - 4.20 POWERCHART (Thyrotropin) MIUL Specimen (Source) Anatomical Collection Method Collection Time Re ceived Time Location / / Volume Laterality Blood 10/17/2015 10:40 AM INSTALLATION ENGINEER Faye Yadav M.D. LAB BLOOD ADD-ON Performing Organization Address City/State/ZIP Code Phon e Number POWERCHART (ABNORMAL) Lipid Panel (10/17/2015 10:40 AM INSTALLATION ENGINEER) P athologist Signature Cholesterol, 258 (H) <=199 [...] for FH and FDB is available throu [facility]: FH/ADH Genetic Reflex Kolb el (test ADHP). Acquired (non-genetic) causes of markedly increased LDL cholesterol include cholestatic liver disease due to the presence of LpX. If a genetic form of hypercholesterolemia is suspected, family studies including biochemical testing fo r lipids (total cholesterol,triglycerides, LDL cholesterol and HDL cholesterol) are recommended. ??Please contact the laboratory at or the on-line test catalog at [employer] for information about how to order these tomi ts or to speak with a genetic counselor. Further interpretation would require clinical information. Total Cholesterol/HDL Ratio 2 PO WERCHART HXLDL/HDL 1 POWERCHART Specimen (Source) Anatomical Collection Method Collection Time Re ceived Time Location / / Volume Laterality Blood 10/17/2015 10:40 AM INSTALLATION ENGINEER Faye Yadav M.D. LAB BLOOD ADD-ON Performing Organization Address City/State/ZIP Code Phon e Number POWERCHART Pathology ASSISTANT INFANT TEACHER Cytology (10/17/2015 12:00 AM INSTALLATION ENGINEER) Specimen (Source) Anatomical Location Collection Method / Collectio n Time Received Time / Laterality Volume 10/17/2015 Narrative [facility] - 10/27/20 15 9:07 AM INSTALLATION ENGINEER Pat: CHIP MAI ([id number]) Age/Sex: 55 ??F ??Loc: ? -00 ([place] ) [facility] ??JULISA: 10/17/15 00:00 ??REC: 00:00 ??PHYS: , Cytology ?[facility] thinlayer cervica Patient Name: CHIP MAI MR#: [id number] Submitting Physician: FAYE YADAV MD ? ?[id number] Specimen #[id number] Performing Lab: ??[address] [address] CLINICAL HISTORY: Last menstrual period: Status: Specimen [...] PCR, [facility], test ing performed by [facility] HPV High Risk type 16, PCR [...] Organization Address City/State/ZIP Code Phon e Number [facility] documented in this encounter Visit Diagnoses Not on filedocumented in this encounter Additional Health Concerns Assessment Noted Time PHQ-9 Depression Total Score: 10 10/17/2015 9:46 AM CS T documented as of this encounter
--- OUTSIDE RECORDS SUMMARY | 2022-10-01 11:04 | XMS_ITS | Encounter Summary ---
:1960 Author Organization [facility] Address [address] [place] [address] Care Team Providers Name Role Phone Unavailable Primary Care Provider Unavailable Encounter Details Date Type Department Care Team Description 01/12/2013 Hospital En[facility] Aurelia Núñez M.D. [address] [place] [address] (Wo rk) Social History Tobacco Use Types Packs/Day Years Used Date Smoking Tobacco: Never Assessed Sex Assigned at Date Recorded Female 07/10/2022 7:32 AM CDT documented as of this encounter Plan of Treatment Upcoming Encounters Date Type Specialty Care Team Description 10/10/2022 Office Visit Neurology Karin Ramachandran M.D., M.P.H. [address] [phone] (Wo rk) documented as of this encounter Visit Diagnoses Not on filedocumented in this encounter
--- OUTSIDE RECORDS SUMMARY | 2022-10-01 11:04 | XMS_ITS | Encounter Summary ---
:1960 Author Organization [facility] Address [address] [place] [address] Care Team Providers Name Role Phone Unavailable Primary Care Provider Unavailable Encounter Details Date Type Department Care Team Description 02/15/2016 [facility] [address] [place] [address] (Wo rk) Social History Tobacco [...] Coding Summary-Paper Based CODING DATE: 02/21/2016 FINAL [facility] [place] [facility] [...] ROSARIO Date Saved: 02/21/2016 08:22 am Source: [employer] Document Id: [id number] documented in this encounter Plan of Treatment Upcoming Encounters Date Type Specialty Care Team Description 10/10/2022 Office Visit Neurology Karin Ramachandran M.D., M.P.H. [address] [phone] (Wo rk) documented as of this encounter Visit Diagnoses Not on filedocumented in this encounter Additional Health Concerns Assessment Noted Time PHQ-9 Depression Total Score: 10 10/17/2015 9:46 AM CS T documented as of this encounter
--- OUTSIDE RECORDS SUMMARY | 2022-10-01 11:04 | XMS_ITS | Encounter Summary ---
:1960 Author Organization [facility] Address [address] [place] [address] Care Team Providers Name Role Phone Unavailable Primary Care Provider Unavailable Encounter Details Date Type Department Care Team Description 03/17/2014 Hospital Encounter [facility] Aurelia Milligan M.D. [address] [place] [address] (Wo rk) Social History Tobacco [...] Visit Neurology Karin Ramachandran M.D., M.P.H. [address] [phone] (Wo rk) documented as of this encounter Visit Diagnoses Not on filedocumented in this encounter
--- OUTSIDE RECORDS SUMMARY | 2022-10-01 11:04 | XMS_ITS | Encounter Summary ---
:1960 Author Organization [facility] Address [address] [place] [address] Care Team Providers Name Role Phone Unavailable Primary Care Provider Unavailable Encounter Details Date Type Department Care Team Description 08/07/2013 Hospital Encounter HX [facility] Aurelia Núñez M.D. [address] [place] [address] (Wo rk) Social History Tobacco Use Types Packs/Day Years Used Date Smoking Tobacco: Never Assessed Sex Assigned at Date Recorded Female 07/10/2022 7:32 AM CDT documented as of this encounter Miscellaneous Notes Telephone Encounter - Conversion, Historical Provider Ser - 08/07/2013 12:00 AM CDT [id number] Last visit: BP Readings from Last 1 Encounters: 01/07/13 123/81 Out of thyroid medication, few left of blood pressure and ambien medication [phone] [facility] Document Id: [id number] documented in this encounter Plan of Treatment Upcoming Encounters Date Type Specialty Care Team Description 10/10/2022 Office Visit Neurology Karin Ramachandran M.D., M.P.H. [address] [place] [phone] (Wo rk) documented as of this encounter Visit Diagnoses Not on filedocumented in this encounter
--- OUTSIDE RECORDS SUMMARY | 2022-10-01 11:04 | XMS_ITS | Encounter Summary ---
:1960 Author Organization [facility] Address [address] [place] [address] Care Team Providers Name Role Phone Unavailable Primary Care Provider Unavailable Encounter Details Date Type Department Care Team Description 03/17/2014 Hospital Encounter HX [facility] Aurelia Yadav M.D. [address] [place] [address] (Wo rk) Social History Tobacco [...] 1 year on 10/09/13. Satisfied by Contributor_system, [facility]_HX_IMM_SYS SYSTEMS REVIEW GENERAL: no fevers, chills, [...] # 90 tab(s), 3 Refill(s), Maintenance, Pharmacy: [id number] Creatinine Glucose, Fasting* Disorder of Bone and [...] # 90 tab(s), 3 Refill(s), Maintenance, Pharmacy: [facility][id number] Thyroid Stimulating Hormone Return in 1 year or sooner if needed. Due for pelvic/pap and mammogram and breast exam. Billing Diagnoses --> Electronically Signed By: FAYE YADAV MD On: 03/17/2014 06:06 PM Source: [employer] Document Id: [id number] documented in this encounter Nursing Notes Faye Yadav M.D. - 03/17/2014 9:18 AM CDT Ambulatory Patient Education The following Patient Education Materials have been given to the patient: Patient Education Materials: Source: [employer] Document Id: [id number] documented in this encounter Miscellaneous Notes Miscellaneous - Conversion, Historical Provider Ser - 03/18/2014 3:18 PM CDT MONICA-7 MONICA-7 Entered On: 03/18/2014 15:18 CDT Performed On: 03/18/2014 15:18 CDT by ELISSA JARAMILLO [facility] GAD7 GAD7 Feeling nervous : [...] JARAMILLO CMA - 03/18/2014 15:18 CDT Source: [employer] Document Id: [id number] CDT!10 Miscellaneous - Conversion, Historical Provider Ser - 03/18/2014 3:18 PM CDT PHQ-9 PHQ-9 Entered On: 03/18/2014 15:18 CDT Performed On: 03/18/2014 15:18 CDT by ELISSA JARAMILLO [facility] PHQ-9 Little interest or pleasure [...] self : Not at all ELISSA JARAMILLO [employer]AC[employer]URE AND FISHERIES PROFESSOR - 03/18/2014 15:18 CDT Source: [employer] Document Id: [id number] CDT!10 Nancycellaneous - Faye Yadav M.D. - 03/17/2014 2:15 PM CDT Normal Results Letter 17 March 2014 ZANDRA MAI [address] [place] [id number] Dear ZANDRA MAI, I am pleased to report that your results from the following diagnostic test(s) magdalneo good. Your HDL (healthy) cholesterol is extremely [...] 01/07/2013 0.30 - 4.20 Sincerely, FAYE YADAV [address] [place] [address] Electronic Signature Electronically Signed By: FAYE YADAV MD On: 17 March 2014 This document has images extracted. Source: [facility] POWERCHART Document Id: [id number] Miscellaneous - Faye Yadav M.D. - 03/17/2014 9:19 AM CDT Ambulatory Patient Summary [address] [id number] Visit Information Name: ZANDRA MAI [facility] Number: [id number] Current Date: 03/17/2014 09:19:06 Physicians [...] mg, Oral, once a day Routed to [address] [address] aspirin (aspirin 81 mg oral [...] mcg, Oral, once a day Routed to [address] [address] multivitamin with minerals (Multi-Day with [...] Reason Provider 03/17/2014 11:00 RWZU Mammo screening [facility] RM 1 Attention: Contact your local Clinic if further appointment detail needed. Your Goals/Additional instructions: Source: [facility] POWERCHART Document Id: [id number] Miscellaneous - Faye Yadav M.D. - 03/17/2014 9:19 AM CDT Ambulatory Discharge Medication List [address] [id number] Visit Information Name: ZANDRA MAI [facility] Number: [id number] Visit Date: 03/17/2014 09:19:04 Attending Provider: FAYE YADAV MD Primary Care Provider: FAYE YADAV MD ZANDRA MAIAN has been given the following list of [...] mg, Oral, once a day Routed to [facility] [address] aspirin (aspirin 81 mg oral [...] mcg, Oral, once a day Routed to [address] [address] multivitamin with minerals (Multi-Day with [...] MD Signed On:17-MAR-2014 09:18:55 Additional Information: Source: [facility] [employer] Document Id: [id number] Miscellaneous - Conversion, Historical Provider Ser - 03/17/2014 8:51 AM CDT 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 Intake/History 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 Intake/History Entered On: 03/17/2014 8:53 CDT Performed On: 03/17/2014 8:51 CDT by ELISSA JARAMILOL [facility] Intake Chief Complaint : Renew [...] Weight Clinic : 61.4 kg ELISSA JARAMILLO [facility] - 03/17/2014 8:51 CDT General Info Information Given By : Patient Languages : Azeri ELISSA JARAMILLO CMA - 03/17/2014 8:51 CDT Subjective Pain Symptoms : No ELISSA JARAMILLO CMA - 03/17/2014 8:51 CDT Dependent Habits Tobacco Use/Currently Using : Yes Smoking Status : Current every day smoker ELISSA JARAMILLO [facility] - 03/17/2014 8:51 CDT Tobacco Use Grid Type : Cigarettes Cigarette Use Packs/Day : 1 ELISSA JARAMILLO CMA - 03/17/2014 8:51 CDT Source: [facility] [employer] Document Id: [id number] CDT!27 documented in this encounter Plan of Treatment Upcoming Encounters Date Type Specialty Care Team Description 10/10/2022 Office Visit Neurology Karin Ramachandran M.D., M.P.H. [address] [phone] (Wo rk) documented as of this [...] 1.10 MGDL eGFR >60 >=60 POWERCHART Black/ [id number] Bahamian HXeGFR (MDRD) >60 >=60 POWERCHART [id number] Comment: Results are in mL/min/1.73m CKD Stage [...]
--- OUTSIDE RECORDS SUMMARY | 2022-10-01 11:04 | XMS_ITS | Encounter Summary ---
:1960 Author Organization [facility] Address [address] [place] [address] Care Team Providers Name Role Phone Unavailable Primary Care Provider Unavailable Encounter Details Date Type Department Care Team Description 03/27/2016 Hospital Encounter [facility] Abelardo Herzog M.D. [address] [place], [place] [phone] (Wo rk) Social [...] of this encounter Procedure Notes Naveen Valencia R.T.(R)(CT)Katia(R) - 03/27/2016 7:42 AM CDT Peripheral IV Peripheral IV Entered On: 03/27/2016 7:48 CDT Performed On: 03/27/2016 7:42 CDT by NAVEEN VALENCIA(R)(CT), REvansTEvans(R) Peripheral IV Peripheral IV Assess/Intervention Grid Peripheral [...] No complications Comments (Comment: LS [NAVEEN VALENCIA(R)(CT), Ramez.TEvans(R) - 03/27/2016 7:42 CDT] ) NAVEEN VALENCIA(R)(CT), Ramez.TEvans(R) - 03/27/2016 7:42 CDT Source: [employer] Document Id: [id number] CDT!14 documented in this encounter Miscellaneous Notes [...] She will reschedule 04/10 appt to go [facility] CXR.Transferred to scheduling. 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 From: FAYE YADAV MD To: [facility] Nurse (TABITHA/MEÑO); Sent: 04/02/2016 18:00:55 CDT [...] cough, 40 pack years, hyponatremia 27-Mar-2016 09:33 [facility] EXAM: CT scan of the Chest with [...] 9:[address] Chest w/ contrast Source: [employer] Document Id: [id number] Electronically signed by Conversion, [facility] Armature And Rotor Winder [id number] at 04/20/2017 1:35 PM CDT Miscellaneous - Conversion, Historical Provider Ser - 03/27/2016 11:59 PM CDT Coding Summary-Paper Based CODING DATE: 04/06/2016 FINAL RW [facility] STATUS: * Discharged to Home [...] ROSARIO Date Saved: 04/06/2016 09:41 am Source: [employer] Document Id: [id number] documented in this encounter Plan of Treatment Upcoming Encounters Date Type Specialty Care Team Description 10/10/2022 Office Visit Neurology Karin Ramachandran M.D., M.P.H. [address] [phone] (Wo rk) documented as of this encounter Visit Diagnoses Not on filedocumented in this encounter Additional Health Concerns Assessment Noted Time PHQ-9 Depression Total Score: 10 10/17/2015 9:46 AM CS T documented as of this encounter
--- OUTSIDE RECORDS SUMMARY | 2022-10-01 11:05 | XMS_ITS | Encounter Summary ---
:1960 Author Organization [facility] Address [address] [place] [address] Care Team Providers Name Role Phone Unavailable Primary Care Provider Unavailable Encounter Details Date Type Department Care Team Description 09/13/2010 Hospital Encounter HX [facility] Aurelia Fernández M.D. [address] [place] [address] (Wo rk) Social History Tobacco Use Types Packs/Day Years Used Date Smoking Tobacco: Never Assessed Sex Assigned at Date Recorded Female 07/10/2022 7:32 AM CDT documented as of this encounter Miscellaneous Notes Telephone Encounter - Conversion, Historical Provider Ser - 09/13/2010 12:00 AM CDT [id number] Pt needs refill on her thyroid meds faxed to [facility] in [place]. Source[facility] Document Id: [id number] Telephone Encounter - Alyssa Evans R.N. - 09/13/2010 12:00 AM CDT [id number] Last visit: BP Readings from Last 1 Encounters: 07/24/2010 110/63 Called patient as per letter sent 09/08, she would like to try to increase her dose to 88mcg. Order placed for 88 mcg, please update dispense and refill. Informed she may need to return for recheck of TSH TSH 3.56 09/01/2010 Source: [facility] Document Id: [id number] documented in this encounter Plan of Treatment Upcoming Encounters Date Type Specialty Care Team Description 10/10/2022 Office Visit Neurology Karin Ramachandran M.D., M.P.H. [address] [phone] (Wo rk) documented as of this encounter Visit Diagnoses Not on filedocumented in this encounter
--- OUTSIDE RECORDS SUMMARY | 2022-10-01 11:05 | XMS_ITS | Encounter Summary ---
:1960 Author Organization [facility] Address [address] [place] [address] Care Team Providers Name Role Phone Unavailable Primary Care Provider Unavailable Encounter Details Date Type Department Care Team Description 07/11/2012 Hospital Encounter HX [facility] Shannon Garcia M.D. [address] [place] [phone] (Wo rk) Social History Tobacco Use Types Packs/Day Years Used Date Smoking Tobacco: Never Assessed Sex Assigned at Date Recorded Female 07/10/2022 7:32 AM CDT documented as of this encounter Miscellaneous Notes Telephone Encounter - Conversion, Historical Provider Ser - 07/11/2012 12:00 AM CDT [id number] Zolpidem prior authorization request from [facility]. [facility] prior authorization initiated and faxed. Source[facility] Document Id: [id number] Telephone Encounter - Conversion, Historical Provider Ser - 07/11/2012 12:00 AM CDT [id number] Rec'd fax from [facility] approving prior auth for Zolpidem granted effective 07/11/2012 to 01/11/2013. Approval faxed to [facility] pharmacy. Source[facility] Document Id: [id number] documented in this encounter Plan of Treatment Upcoming Encounters Date Type Specialty Care Team Description 10/10/2022 Office Visit Neurology Karin Ramachandran M.D., M.P.H. [address] [phone] (Wo rk) documented as of this encounter Visit Diagnoses Not on filedocumented in this encounter
--- OUTSIDE RECORDS SUMMARY | 2022-10-01 11:05 | XMS_ITS | Encounter Summary ---
:1960 Author Organization [facility] Address [address] [place] [address] Care Team Providers Name Role Phone Unavailable Primary Care Provider Unavailable Encounter Details Date Type Department Care Team Description 06/28/2009 Hospital Encounter HX [facility] Shannon Buitrago M.D. [address] [place] [address] (Wo rk) Social History Tobacco Use Types Packs/Day Years Used Date Smoking Tobacco: Never Assessed Sex Assigned at Date Recorded Female 07/10/2022 7:32 AM CDT documented as of this encounter Miscellaneous Notes Telephone Encounter - Conversion, Historical Provider Ser - 06/28/2009 12:00 AM CDT [id number] patient made an appt fro 07/12/09 can you please send down refill until then [facility] Document Id: [id number] documented in this encounter Plan of Treatment Upcoming Encounters Date Type Specialty Care Team Description 10/10/2022 Office Visit Neurology Karin Ramachandran M.D., M.P.H. [address] [place], [place] [phone] (Wo rk) documented as of this encounter Visit Diagnoses Not on filedocumented in this encounter
--- OUTSIDE RECORDS SUMMARY | 2022-10-01 11:05 | XMS_ITS | Encounter Summary ---
:1960 Author Organization [facility] Address [address] [place] [address] Care Team Providers Name Role Phone Unavailable Primary Care Provider Unavailable Encounter Details Date Type Department Care Team Description 03/23/2010 Hospital Encounter HX [facility] Aurelia Fernández M.D. [address] [place] [address] (Wo rk) Social History Tobacco Use Types Packs/Day Years Used Date Smoking Tobacco: Never Assessed Sex Assigned at Date Recorded Female 07/10/2022 7:32 AM CDT documented as of this encounter Miscellaneous Notes Telephone Encounter - Conversion, Historical Provider Ser - 03/23/2010 12:00 AM CDT [id number] Situation/What is the patients concern/need: patient called and has yeast infection Clinical Background/Recent Intervention: Last seen by you for refills 02/01 Recommendation/Patient Request: Was wondering if she could get a rx of diflucan to [facility] Best number(s) to reach patient: [phone] (home) [facility] Document Id: [id number] Telephone Encounter - Faye Liao M.D. - 03/23/2010 12:00 AM CDT [id number] Forwarding to PCP. I did not discuss or prescribe anything related to yeast infections with her at that appt in January. Source: [facility] Document Id: [id number] Electronically signed by Conversion, [facility] Associate [id number] at 04/28/2017 12:55 PM CDT Telephone Encounter - Shannon Barrett M.D. - 03/23/2010 12:00 AM CDT [id number] Recommend that pt be seen and diagnosis confirmed prior to meds..She has no reason to get a yeast infection,so it may be bacterial vaginosis. [facility] Document Id: [id number] Electronically signed by Conversion, [facility] Associate [id number] at 04/28/2017 12:55 PM CDT Telephone Encounter - Conversion, Historical Provider Ser - 03/23/2010 12:00 AM CDT [id number] Left message to call Source[facility] Document Id: [id number] Telephone Encounter - Conversion, Historical Provider Ser - 03/23/2010 12:00 AM CDT [id number] patient called and she got otc meds to try and if not better by Saturday will call to be seen [facility] Document Id: [id number] documented in this encounter Plan of Treatment Upcoming Encounters Date Type Specialty Care Team Description 10/10/2022 Office Visit Neurology Karin Ramachandran M.D., M.P.H. [address], [place] [phone] (Wo rk) documented as of this encounter Visit Diagnoses Not on filedocumented in this encounter
--- OUTSIDE RECORDS SUMMARY | 2022-10-01 11:05 | XMS_ITS | Encounter Summary ---
:1960 Author Organization [facility] Address [address] [place] [address] Care Team Providers Name Role Phone Unavailable Primary Care Provider Unavailable Encounter Details Date Type Department Care Team Description 11/14/2009 Hospital Encounter H[facility] Shannon Patton M.D. [address] [place], [place] [phone] (Wo rk) Social History Tobacco Use Types Packs/Day Years Used Date Smoking Tobacco: Never Assessed Sex Assigned at Date Recorded Female 07/10/2022 7:32 AM CDT documented as of this encounter Plan of Treatment Upcoming Encounters Date Type Specialty Care Team Description 10/10/2022 Office Visit Neurology Karin Ramachandran M.D., M.P.H. [address], [place] [phone] (Wo rk) documented as of this encounter Visit Diagnoses Not on filedocumented in this encounter
--- OUTSIDE RECORDS SUMMARY | 2022-10-01 11:05 | XMS_ITS | Encounter Summary ---
:1960 Author Organization [facility] Address [address] [place] [address] Care Team Providers Name Role Phone Unavailable Primary Care Provider Unavailable Encounter Details Date Type Department Care Team Description 10/12/2008 Hospital Encounter HX [facility] Shannon Barrett M.D. [address] [place] [phone] (Wo rk) Social History Tobacco Use Types Packs/Day Years Used Date Smoking Tobacco: Never Assessed Sex Assigned at Date Recorded Female 07/10/2022 7:32 AM CDT documented as of this encounter Progress Notes Shannon Barrett M.D. - 10/12/2008 11:30 AM CST [id number] SUBJECTIVE: Zandra Lopez is an 48 year [...] notify me if there is changes. Source: [facility] Document Id: [id number] documented in this encounter Miscellaneous Notes Miscellaneous - Arnold, Shannon, M.D. - 10/12/2008 11:30 AM CST [id number] Zandra Brandon [address] [address] October 13, 2008 Dear Ms. Zandra Taylor [...] questions or problems, please contact me at [phone] at the [facility]. Sincerely, (electronically signed to expedite delivery) Shannon Barrett M.D. INTERNAL MEDICINE Source: [facility] Document Id: [id number] Electronically signed by Conversion, [facility] Material Control Manager [id number] at 04/29/2017 2:46 AM CDT documented in this encounter Plan of Treatment Upcoming Encounters Date Type Specialty Care Team Description 10/10/2022 Office Visit Neurology Karin Ramachandran M.D., M.P.H. [address] [place], [place] [phone] (Wo rk) documented as of this encounter Visit Diagnoses Not on filedocumented in this encounter
--- OUTSIDE RECORDS SUMMARY | 2022-10-01 11:05 | XMS_ITS | Encounter Summary ---
:1960 Author Organization [facility] Address [address] [place] [address] Care Team Providers Name Role Phone Unavailable Primary Care Provider Unavailable Encounter Details Date Type Department Care Team Description 12/17/2012 Hospital Encounter HX [facility] Aurelia Núñez M.D. [address] [place] [address] (Wo rk) Social History Tobacco Use Types Packs/Day Years Used Date Smoking Tobacco: Never Assessed Sex Assigned at Date Recorded Female 07/10/2022 7:32 AM CDT documented as of this encounter Plan of Treatment Upcoming Encounters Date Type Specialty Care Team Description 10/10/2022 Office Visit Neurology Karin Ramachandran M.D., M.P.H. [address] [phone] (Wo rk) documented as of this encounter Visit Diagnoses Not on filedocumented in this encounter
--- OUTSIDE RECORDS SUMMARY | 2022-10-01 11:05 | XMS_ITS | Encounter Summary ---
:1960 Author Organization [facility] Address [address] [place] [address] Care Team Providers Name Role Phone Unavailable Primary Care Provider Unavailable Encounter Details Date Type Department Care Team Description 10/12/2008 Hospital Encounter HX [facility] XRAY Provider, Histori darlin Social History Tobacco Use Types Packs/Day Years Used Date Smoking Tobacco: Never Assessed Sex Assigned at Date Recorded Female 07/10/2022 7:32 AM CDT documented as of this encounter Plan of Treatment Upcoming Encounters Date Type Specialty Care Team Description 10/10/2022 Office Visit Neurology Karin Ramachandran M.D., M.P.H. [address], [place] [phone] (Wo rk) documented as of this encounter Visit Diagnoses Not on filedocumented in this encounter
--- OUTSIDE RECORDS SUMMARY | 2022-10-01 11:05 | XMS_ITS | Encounter Summary ---
:1960 Author Organization [facility] Address [address] [place] [address] Care Team Providers Name Role Phone Unavailable Primary Care Provider Unavailable Encounter Details Date Type Department Care Team Description 11/29/2011 Hospital Encounter HX [facility] Aurelia Núñez M.D. [address] [place] [address] (Wo rk) Social History Tobacco Use Types Packs/Day Years Used Date Smoking Tobacco: Never Assessed Sex Assigned at Date Recorded Female 07/10/2022 7:32 AM CDT documented as of this encounter Miscellaneous Notes Telephone Encounter - Conversion, Historical Provider Ser - 11/29/2011 12:00 AM CST [id number] After talking with the pharmacist about Lunista, pt would like to stick with Ambien. Please fax rx to [facility]. [facility] Document Id: [id number] Telephone Encounter - Conversion, Historical Provider Ser - 11/29/2011 12:00 AM CST [id number] [facility] [place] Last visit: BP Readings from Last 1 [...] CR 0.70 11/26/2011 POTASSIUM 5.0 11/26/2011 Source: [facility] Document Id: [id number] Telephone Encounter - Faye Liao M.D. - 11/29/2011 12:00 AM CST [id number] rx done. [facility] Document Id: [id number] Telephone Encounter - Conversion, Historical Provider Ser - 11/29/2011 12:00 AM CST [id number] faxed [facility] Document Id: [id number] documented in this encounter Plan of Treatment Upcoming Encounters Date Type Specialty Care Team Description 10/10/2022 Office Visit Neurology Karin Ramachandran M.D., M.P.H. [address] [phone] (Wo rk) documented as of this encounter Visit Diagnoses Not on filedocumented in this encounter
--- OUTSIDE RECORDS SUMMARY | 2022-10-01 11:05 | XMS_ITS | Encounter Summary ---
:1960 Author Organization [facility] Address [address] [place] [address] Care Team Providers Name Role Phone Unavailable Primary Care Provider Unavailable Encounter Details Date Type Department Care Team Description 04/09/2011 Hospital Encounter HX [facility] Aurelia Núñez M.D. [address] [place] [address] (Wo rk) Social History Tobacco Use Types Packs/Day Years Used Date Smoking Tobacco: Never Assessed Sex Assigned at Date Recorded Female 07/10/2022 7:32 AM CDT documented as of this encounter Miscellaneous Notes Telephone Encounter - Conversion, Historical Provider Ser - 04/09/2011 12:00 AM CDT [id number] Was seen by you for pe 07/24/10, last fill 12/04/10 [facility] Document Id: [id number] documented in this encounter Plan of Treatment Upcoming Encounters Date Type Specialty Care Team Description 10/10/2022 Office Visit Neurology Karin Ramachandran M.D., M.P.H. [address] [place], [place] [phone] (Wo rk) documented as of this encounter Visit Diagnoses Not on filedocumented in this encounter
--- OUTSIDE RECORDS SUMMARY | 2022-10-01 11:05 | XMS_ITS | Encounter Summary ---
:1960 Author Organization [facility] Address [address] [place] [address] Care Team Providers Name Role Phone Unavailable Primary Care Provider Unavailable Encounter Details Date Type Department Care Team Description 10/19/2008 Hospital Encounter HX [facility] Shannon Buitrago M.D. [address] [place] [address] (Wo rk) Social History Tobacco Use Types Packs/Day Years Used Date Smoking Tobacco: Never Assessed Sex Assigned at Date Recorded Female 07/10/2022 7:32 AM CDT documented as of this encounter Miscellaneous Notes Telephone Encounter - Conversion, Historical Provider Ser - 10/19/2008 12:00 AM CST [id number] [employer] [facility] Document Id: [id number] Telephone Encounter - Chari Stoddard R.N. - 10/19/2008 12:00 AM CST [id number] Prescription approved per RN refill protocol. Last Visit: 10/12/08 Last 1 Encounter BP Readings: Date BP 10/12/2008 108/70 CAD/HTN and or CHF labs: CR 0.85 10/12/08 POTASSIUM 4.1 10/12/08 LDL 106 09/19/07 TSH 0.48 10/12/08 Source: [facility] Document Id: [id number] Electronically signed by Conversion, [facility] Us Marketing Director [id number] at 04/29/2017 2:46 AM CDT documented in this encounter Plan of Treatment Upcoming Encounters Date Type Specialty Care Team Description 10/10/2022 Office Visit Neurology Karin Ramachandran M.D., M.P.H. [address] [phone] (Wo rk) documented as of this encounter Visit Diagnoses Not on filedocumented in this encounter
--- OUTSIDE RECORDS SUMMARY | 2022-10-01 11:05 | XMS_ITS | Encounter Summary ---
:1960 Author Organization [facility] Address [address] [place] [address] Care Team Providers Name Role Phone Unavailable Primary Care Provider Unavailable Encounter Details Date Type Department Care Team Description 09/01/2010 Hospital Encounter HX [id number] Provider, Historic al Social History Tobacco Use Types Packs/Day Years Used Date Smoking Tobacco: Never Assessed Sex Assigned at Date Recorded Female 07/10/2022 7:32 AM CDT documented as of this encounter Miscellaneous Notes Miscellaneous - Faye Liao M.D. - 09/01/2010 12:30 PM CDT [id number] Zandra Lopez [address] [place] [address] September 08, 2010 Dear Zandra, I am [...] MD Departments of Internal Medicine and Pediatrics [facility] Source: [facility] Document Id: [id number] documented in this encounter Plan of Treatment Upcoming Encounters Date Type Specialty Care Team Description 10/10/2022 Office Visit Neurology Karin Ramachandran M.D., M.P.H. [address] [phone] (Wo rk) documented as of this encounter Visit Diagnoses Not on filedocumented in this encounter
--- OUTSIDE RECORDS SUMMARY | 2022-10-01 11:05 | XMS_ITS | Encounter Summary ---
:1960 Author Organization [facility] Address [address] [place] [address] Care Team Providers Name Role Phone Unavailable Primary Care Provider Unavailable Encounter Details Date Type Department Care Team Description 01/07/2013 Hospital Encounter HX [facility] Aurelia Liao M.D. [address] [place] [address] (Wo rk) Social History Tobacco Use Types Packs/Day Years Used Date Smoking Tobacco: Never Assessed Sex Assigned at Date Recorded Female 07/10/2022 7:32 AM CDT documented as of this encounter Progress Notes Faye Liao M.D. - 01/07/2013 2:00 PM CST [id number] Zandra Lopez is here for follow up [...] monitor BP 2 times a week. If [id number] consistently, will need to increase back to [...] sooner if new or worsening symptoms. Source: [facility] Document Id: [id number] Electronically signed by Conversion, [facility] Grouter Helper [id number] at 04/22/2017 12:53 PM CDT documented in this encounter Miscellaneous Notes Miscellaneous - Conversion, Historical Provider Ser - 01/07/2013 2:00 PM ELECTRICIAN JOURNEYMAN WIREMAN [id number] 01/08/2013 Zandra Taylor [address] [place] [address] Dear Zandra: Thank you for allowing me [...] sign of concern. Thank you for choosing [facility]. Please continue with the treatment plan discussedin the office. Return as discussed or sooner if symptoms worsens or fail to improve. If you have anyfurther questions or concerns, please do not hesitate to contact us. Sincerely, Faye Liao MD [facility] [place] [facility] [address] [place] [address] Source: [facility] Document Id: [id number] documented in this encounter Plan of Treatment Upcoming Encounters Date Type Specialty Care Team Description 10/10/2022 Office Visit Neurology Karin Ramachandran M.D., M.P.H. [address] [place] [phone] (Wo rk) documented as of this encounter Procedures Procedure Name Priority Date/Time Associated Comments Diagnosis THYROID-STIMULATING Routine 01/07/2013 6:44 PM Re sults for this HORMONE-SENSITIVE ELECTRICIAN JOURNEYMAN WIREMAN procedure are in (S-TSH) the results section. HX UREA NITROGEN Routine 01/07/2013 6:14 PM Resul ts for this ELECTRICIAN JOURNEYMAN WIREMAN procedure are i n the results section. HX AGAP Routine 01/07/2013 6:14 PM Results f or this ELECTRICIAN JOURNEYMAN WIREMAN procedure are i n the results section. CREATININE WITH Routine 01/07/2013 6:14 PM Result s for this EGFR, P ELECTRICIAN JOURNEYMAN WIREMAN procedure are i n the results section. CREATININE WITH Routine 01/07/2013 6:14 PM Result s for this EGFR, P ELECTRICIAN JOURNEYMAN WIREMAN procedure are i n the results section. SODIUM, S/P Routine 01/07/2013 6:14 PM Results f or this ELECTRICIAN JOURNEYMAN WIREMAN procedure are i n the results section. POTASSIUM, S/P Routine 01/07/2013 6:14 PM Results for this ELECTRICIAN JOURNEYMAN WIREMAN procedure are i n the results section. GLUCOSE, RANDOM, S/P Routine 01/07/2013 6:14 PM R esults for this ELECTRICIAN JOURNEYMAN WIREMAN procedure are i n the results section. CREATININE WITH Routine 01/07/2013 6:14 PM Result s for this EGFR, S/P ELECTRICIAN JOURNEYMAN WIREMAN procedure are i n the results section. CHLORIDE, S/P Routine 01/07/2013 6:14 PM Results for this ELECTRICIAN JOURNEYMAN WIREMAN procedure are i n the results section. BICARBONATE, B/S/P Routine 01/07/2013 6:14 PM Res ults for this ELECTRICIAN JOURNEYMAN WIREMAN procedure are i n the results section. CALCIUM, TOT, S/P Routine 01/07/2013 6:14 PM Resu lts for this ELECTRICIAN JOURNEYMAN WIREMAN procedure are i n the results section. documented in this encounter Results S-TSH (Thyroid-Stimulating Hormone - Sensitive) (01/07/2013 6:44 PM ELECTRICIAN JOURNEYMAN WIREMAN) athologist Signature TSH 0.80 MUNITL [facility] (Thyrotropin) [facility] Specimen (Source) Anatomical Collection Method Collection Time Re ceived Time Location / / Volume Laterality 01/07/2013 6:44 PM ELECTRICIAN JOURNEYMAN WIREMAN Historical Provider LAB BLOOD ADD-ON Performing Organization Address City/State/ZIP Code Phon e Number [facility] Calcium, Total (01/07/2013 6:14 PM ELECTRICIAN JOURNEYMAN WIREMAN) athologist Signature Calcium, Total, 9.3 MGDL [facility] Specimen (Source) Anatomical Collection Method Collection Time Re ceived Time Location / / Volume Laterality 01/07/2013 6:14 PM ELECTRICIAN JOURNEYMAN WIREMAN Historical Provider LAB BLOOD ADD-ON Performing Organization Address City/State/ZIP Code Phon e Number [facility] Creatinine with Estimated GFR (MDRD), Plasma (01/07/2013 6:14 PM ELECTRICIAN JOURNEYMAN WIREMAN) P athologist Signature eGFR >90 [id number] [facility] Black/ [facility] [place] LAB Specimen (Source) Anatomical Collection Method Collection Time Re ceived Time Location / / Volume Laterality 01/07/2013 6:14 PM ELECTRICIAN JOURNEYMAN WIREMAN Historical Provider LAB BLOOD ADD-ON Performing Organization Address City/State/ZIP Code Phon e Number [facility] Creatinine with Estimated GFR (MDRD), Plasma (01/07/2013 6:14 PM ELECTRICIAN JOURNEYMAN WIREMAN) P athologist Signature HXeGFR (MDRD) >90 [id number] [facility] Specimen (Source) Anatomical Collection Method Collection Time Re ceived Time Location / / Volume Laterality 01/07/2013 6:14 PM ELECTRICIAN JOURNEYMAN WIREMAN Historical Provider LAB BLOOD ADD-ON Performing Organization Address City/State/ZIP Code Phon e Number [facility] Creatinine with Estimated GFR (MDRD) (01/07/2013 6:14 PM ELECTRICIAN JOURNEYMAN WIREMAN) P athologist Signature Creatinine 0.61 MGDL [facility] Specimen (Source) Anatomical Collection Method Collection Time Re ceived Time Location / / Volume Laterality 01/07/2013 6:14 PM ELECTRICIAN JOURNEYMAN WIREMAN Historical Provider LAB BLOOD ADD-ON Performing Organization Address City/State/ZIP Code Phon e Number [facility] HX UREA NITROGEN (01/07/2013 6:14 PM ELECTRICIAN JOURNEYMAN WIREMAN) P athologist Signature Urea Nitrogen, 11 MGDL [facility] 24 HR, [facility] LAB Specimen (Source) Anatomical Collection Method Collection Time Re ceived Time Location / / Volume Laterality 01/07/2013 6:14 PM ELECTRICIAN JOURNEYMAN WIREMAN Historical Provider LAB HISTORICAL ORDERS Performing Organization Address City/State/ZIP Code Phon e Number [facility] Glucose, Random (01/07/2013 6:14 PM ELECTRICIAN JOURNEYMAN WIREMAN) P athologist Signature Glucose 77 MGDL [facility] Specimen (Source) Anatomical Collection Method Collection Time Re ceived Time Location / / Volume Laterality 01/07/2013 6:14 PM ELECTRICIAN JOURNEYMAN WIREMAN Narrative [facility] - 02/05/20 14 9:41 PM CDT Non Fasting Historical Provider LAB BLOOD TROPONIN Performing Organization Address City/State/ZIP Code Phon e Number [facility] HX AGAP (01/07/2013 6:14 PM ELECTRICIAN JOURNEYMAN WIREMAN) P athologist Signature Anion Gap 10 MMOLL [facility] Specimen (Source) Anatomical Collection Method Collection Time Re ceived Time Location / / Volume Laterality 01/07/2013 6:14 PM ELECTRICIAN JOURNEYMAN WIREMAN Historical Provider LAB HISTORICAL ORDERS Performing Organization Address City/State/ZIP Code Phon e Number [facility] Bicarbonate (01/07/2013 6:14 PM ELECTRICIAN JOURNEYMAN WIREMAN) P athologist Signature HX Carbon [address] [facility] LAB Specimen (Source) Anatomical Collection Method Collection Time Re ceived Time Location / / Volume Laterality 01/07/2013 6:14 PM ELECTRICIAN JOURNEYMAN WIREMAN Historical Provider LAB BLOOD ADD-ON Performing Organization Address City/State/ZIP Code Phon e Number [facility] Chloride (01/07/2013 6:14 PM ELECTRICIAN JOURNEYMAN WIREMAN) P athologist Signature Chloride, S 107 MMOLL [facility] Specimen (Source) Anatomical Collection Method Collection Time Re ceived Time Location / / Volume Laterality 01/07/2013 6:14 PM ELECTRICIAN JOURNEYMAN WIREMAN Historical Provider LAB BLOOD ADD-ON Performing Organization Address City/State/ZIP Code Phon e Number [facility] Potassium, S (01/07/2013 6:14 PM ELECTRICIAN JOURNEYMAN WIREMAN) P athologist Signature Potassium, S 4.2 MMOLL [facility] Specimen (Source) Anatomical Collection Method Collection Time Re ceived Time Location / / Volume Laterality 01/07/2013 6:14 PM ELECTRICIAN JOURNEYMAN WIREMAN Historical Provider LAB BLOOD ADD-ON Performing Organization Address City/State/ZIP Code Phon e Number [facility] Sodium (01/07/2013 6:14 PM ELECTRICIAN JOURNEYMAN WIREMAN) P athologist Signature Sodium, S 144 MMOLL [facility] Specimen (Source) Anatomical Collection Method Collection Time Re ceived Time Location / / Volume Laterality 01/07/2013 6:14 PM ELECTRICIAN JOURNEYMAN WIREMAN Historical Provider LAB BLOOD ADD-ON Performing Organization Address City/State/ZIP Code Phon e Number [facility] documented in this encounter Visit Diagnoses Not on filedocumented in this encounter
--- OUTSIDE RECORDS SUMMARY | 2022-10-01 11:05 | XMS_ITS | Encounter Summary ---
:1960 Author Organization [facility] Address [address] [place] [address] Care Team Providers Name Role Phone Unavailable Primary Care Provider Unavailable Encounter Details Date Type Department Care Team Description 07/12/2009 Hospital Encounter HX [facility] Shannon Barrett M.D. [address] [place] [phone] (Wo rk) Social History Tobacco Use Types Packs/Day Years Used Date Smoking Tobacco: Never Assessed Sex Assigned at Date Recorded Female 07/10/2022 7:32 AM CDT documented as of this encounter Progress Notes Shannon Barrett M.D. - 07/12/2009 10:30 AM CDT [id number] SUBJECTIVE: Zandra Lopez is an 48 year [...] and medications. [facility] Document Id: [id number] Electronically signed by Gabriela, [facility] User Support Specialist [id number] at 04/28/2017 9:24 PM CDT documented in this encounter Miscellaneous Notes Miscellaneous - Shannon Barrett M.D. - 07/12/2009 10:30 AM CDT [id number] Zandra Lopez [address] [place] [address] November 09, 2009 Dear Ms. Zandra Taylor [...] questions or problems, please contact me at [phone] in Internal Medicine. Sincerely, (electronically signed to expedite delivery) Shannon Barrett M.D. INTERNAL MEDICINE Source: [facility] RWHXTRANSXRTFSYS Document Id: [id number] Electronically signed by Conversion, [facility] User Support Specialist [id number] at 04/28/2017 9:24 PM CDT documented in this encounter Plan of Treatment Upcoming Encounters Date Type Specialty Care Team Description 10/10/2022 Office Visit Neurology Karin Ramachandran M.D., M.P.H. [address] [place], [place] [phone] (Wo rk) documented as of this encounter Visit Diagnoses Not on filedocumented in this encounter
--- OUTSIDE RECORDS SUMMARY | 2022-10-01 11:05 | XMS_ITS | Encounter Summary ---
:1960 Author Organization [facility] Address [address] [place] [address] Care Team Providers Name Role Phone Unavailable Primary Care Provider Unavailable Encounter Details Date Type Department Care Team Description 12/17/2011 Hospital Encounter HX [facility] Aurelia Núñez M.D. [address] [place] [address] (Wo rk) Social History Tobacco Use Types Packs/Day Years Used Date Smoking Tobacco: Never Assessed Sex Assigned at Date Recorded Female 07/10/2022 7:32 AM CDT documented as of this encounter Plan of Treatment Upcoming Encounters Date Type Specialty Care Team Description 10/10/2022 Office Visit Neurology Karin Ramachandran M.D., M.P.H. [address] [phone] (Wo rk) documented as of this encounter Visit Diagnoses Not on filedocumented in this encounter
--- OUTSIDE RECORDS SUMMARY | 2022-10-01 11:05 | XMS_ITS | Encounter Summary ---
:1960 Author Organization [facility] Address [address] [place] [address] Care Team Providers Name Role Phone Unavailable Primary Care Provider Unavailable Encounter Details Date Type Department Care Team Description 01/07/2013 Hospital Encounter HX [facility] Provider, [facility] Social History Tobacco Use Types Packs/Day Years Used Date Smoking Tobacco: Never Assessed Sex Assigned at Date Recorded Female 07/10/2022 7:32 AM CDT documented as of this encounter Plan of Treatment Upcoming Encounters Date Type Specialty Care Team Description 10/10/2022 Office Visit Neurology Karin Ramachandran M.D., M.P.H. [address], [place] [phone] (Wo rk) documented as of this encounter Visit Diagnoses Not on filedocumented in this encounter
--- OUTSIDE RECORDS SUMMARY | 2022-10-01 11:05 | XMS_ITS | Encounter Summary ---
:1960 Author Organization [facility] Address [address] [place] [address] Care Team Providers Name Role Phone Unavailable Primary Care Provider Unavailable Encounter Details Date Type Department Care Team Description 11/21/2009 Hospital Encounter HX NO MAPPING Shannon Barrett M.D. [address] [place] [phone] (Wo rk) Social History Tobacco Use Types Packs/Day Years Used Date Smoking Tobacco: Never Assessed Sex Assigned at Date Recorded Female 07/10/2022 7:32 AM CDT documented as of this encounter Plan of Treatment Upcoming Encounters Date Type Specialty Care Team Description 10/10/2022 Office Visit Neurology Karin Ramachandran M.D., M.P.H. [address] [phone] (Wo rk) documented as of this encounter Visit Diagnoses Not on filedocumented in this encounter
--- OUTSIDE RECORDS SUMMARY | 2022-10-01 11:05 | XMS_ITS | Encounter Summary ---
:1960 Author Organization [facility] Address [address] [place] [address] Care Team Providers Name Role Phone Unavailable Primary Care Provider Unavailable Encounter Details Date Type Department Care Team Description 07/04/2012 Hospital Encounter HX [facility] Shannon Zapata M.D. [address] [place] [address] (Wo rk) Social History Tobacco Use Types Packs/Day Years Used Date Smoking Tobacco: Never Assessed Sex Assigned at Date Recorded Female 07/10/2022 7:32 AM CDT documented as of this encounter Miscellaneous Notes Telephone Encounter - Susana Sifuentes L.P.N. - 07/04/2012 12:00 AM CDT [id number] Accepting this Rx will be faxed directly to pharmacy. Source[facility] Document Id: [id number] Electronically signed by Gabriela, [facility] Wire Rope Fabrication Supervisor [id number] at 04/27/2017 1:24 PM CDT Telephone Encounter - Rosina Wyatt R.N. - 07/04/2012 12:00 AM CDT [id number] Last visit: BP Readings from Last 1 [...] Routing to ordering provider for ambien Source[facility] Document Id: [id number] Electronically signed by Gabriela, [facility] Wire Rope Fabrication Supervisor [id number] at 04/27/2017 1:24 PM CDT documented in this encounter Plan of Treatment Upcoming Encounters Date Type Specialty Care Team Description 10/10/2022 Office Visit Neurology Karin Ramachandran M.D., M.P.H. [address] [phone] (Wo rk) documented as of this encounter Visit Diagnoses Not on filedocumented in this encounter
--- OUTSIDE RECORDS SUMMARY | 2022-10-01 11:05 | XMS_ITS | Encounter Summary ---
:1960 Author Organization [facility] Address [address] [place] [address] Care Team Providers Name Role Phone Unavailable Primary Care Provider Unavailable Encounter Details Date Type Department Care Team Description 03/09/2009 Hospital Encounter HX [facility] Shannon Buitrago M.D. [address] [place] [phone] (Wo rk) Social History Tobacco Use Types Packs/Day Years Used Date Smoking Tobacco: Never Assessed Sex Assigned at Date Recorded Female 07/10/2022 7:32 AM CDT documented as of this encounter Miscellaneous Notes Telephone Encounter - Conversion, Historical Provider Ser - 03/09/2009 12:00 AM CDT [id number] Last visit with pcp 10/02, [facility] Document Id: [id number] documented in this encounter Plan of Treatment Upcoming Encounters Date Type Specialty Care Team Description 10/10/2022 Office Visit Neurology Karin Ramachandran M.D., M.P.H. [address] [place], [place] [phone] (Wo rk) documented as of this encounter Visit Diagnoses Not on filedocumented in this encounter
--- OUTSIDE RECORDS SUMMARY | 2022-10-01 11:05 | XMS_ITS | Encounter Summary ---
:1960 Author Organization [facility] Address [address] [place] [address] Care Team Providers Name Role Phone Unavailable Primary Care Provider Unavailable Encounter Details Date Type Department Care Team Description 12/16/2012 Hospital Encounter HX [facility] Aurelia Núñez M.D. [address] [place] [phone] (Wo rk) Social History Tobacco Use Types Packs/Day Years Used Date Smoking Tobacco: Never Assessed Sex Assigned at Date Recorded Female 07/10/2022 7:32 AM CDT documented as of this encounter Miscellaneous Notes Telephone Encounter - Conversion, Historical Provider Ser - 12/16/2012 12:00 AM CST [id number] Pt would like refills of her thyroid medication sent to the [facility] in [place]. She would like this done NATHALIE. [facility] Document Id: [id number] Telephone Encounter - Conversion, Historical Provider Ser - 12/16/2012 12:00 AM CST [id number] Pt needs enough medication to last her until her appt on 01/07/13. Source: [facility] Document Id: [id number] Telephone Encounter - Conversion, Historical Provider Ser - 12/16/2012 12:00 AM CST [id number] Pt looking for enough Synthroid until 2/13/13 appt. Pt has not been seen since 12/06/11 (refill pool will not fill without labs being up to date, appt, etc). I have pended a 30 day supply. Please review/advise,thank you! [facility] Last visit: BP Readings from Last 1 Encounters: 11/26/11 120/80 TSH 4.39 11/26/2011 Source: [facility] Document Id: [id number] Telephone Encounter - Faye Liao M.D. - 12/16/2012 12:00 AM CST [id number] Please put in pharmacy [facility] Document Id: [id number] Electronically signed by Conversion, [facility] Cold Roll Packer Sheet Iron [id number] at 04/22/2017 11:52 AM CDT documented in this encounter Plan of Treatment Upcoming Encounters Date Type Specialty Care Team Description 10/10/2022 Office Visit Neurology Karin Ramachandran M.D., M.P.H. [address] [phone] (Wo rk) documented as of this encounter Visit Diagnoses Not on filedocumented in this encounter
--- OUTSIDE RECORDS SUMMARY | 2022-10-01 11:05 | XMS_ITS | Encounter Summary ---
:1960 Author Organization [facility] Address [address] [place] [address] Care Team Providers Name Role Phone Unavailable Primary Care Provider Unavailable Encounter Details Date Type Department Care Team Description 01/07/2013 Hospital Encounter HX NO MAPPING Abelardo Liao M.D. [address] [place], [place] [phone] (Wo rk) Social History Tobacco Use Types Packs/Day Years Used Date Smoking Tobacco: Never Assessed Sex Assigned at Date Recorded Female 07/10/2022 7:32 AM CDT documented as of this encounter Plan of Treatment Upcoming Encounters Date Type Specialty Care Team Description 10/10/2022 Office Visit Neurology Karin Ramachandran M.D., M.P.H. [address], [place] [phone] (Wo rk) documented as of this encounter Visit Diagnoses Not on filedocumented in this encounter
--- OUTSIDE RECORDS SUMMARY | 2022-10-01 11:05 | XMS_ITS | Encounter Summary ---
:1960 Author Organization [facility] Address [address] [place] [address] Care Team Providers Name Role Phone Unavailable Primary Care Provider Unavailable Encounter Details Date Type Department Care Team Description 05/31/2009 Hospital Encounter HX [facility] Shannon Buitrago M.D. [address] [place] [address] (Wo rk) Social History Tobacco Use Types Packs/Day Years Used Date Smoking Tobacco: Never Assessed Sex Assigned at Date Recorded Female 07/10/2022 7:32 AM CDT documented as of this encounter Miscellaneous Notes Telephone Encounter - Conversion, Historical Provider Ser - 05/31/2009 12:00 AM CDT [id number] patient only has one pill left and has been filling in for worker who is out ill, has one more week before goes back to her own schedule and than will make an appt. Could you refill one time. Source: [facility] RWHXTRANSXRTFSYS Document Id: [id number] documented in this encounter Plan of Treatment Upcoming Encounters Date Type Specialty Care Team Description 10/10/2022 Office Visit Neurology Karin Ramachandran M.D., M.P.H. [address], [place] [phone] (Wo rk) documented as of this encounter Visit Diagnoses Not on filedocumented in this encounter
--- OUTSIDE RECORDS SUMMARY | 2022-10-01 11:05 | XMS_ITS | Encounter Summary ---
:1960 Author Organization [facility] Address [address] [place] [address] Care Team Providers Name Role Phone Unavailable Primary Care Provider Unavailable Encounter Details Date Type Department Care Team Description 08/12/2008 Hospital Encounter HX [facility] Shannon Buitrago M.D. [address] [place] [phone] (Wo rk) Social History Tobacco Use Types Packs/Day Years Used Date Smoking Tobacco: Never Assessed Sex Assigned at Date Recorded Female 07/10/2022 7:32 AM CDT documented as of this encounter Miscellaneous Notes Miscellaneous - Conversion, Historical Provider Ser - 08/12/2008 12:00 AM CDT [id number] Zandra Lopez [id number] [address] August 13, 2008 Dear Zandra Lopez APPOINTMENT [...] future. You may call our office at [phone] or to schedule a visit. Please disregard this notice if you have already made an appointment. Sincerely, Sera Ramos [facility] Source: [facility] Document Id: [id number] Telephone Encounter - Conversion, Historical Provider Ser - 08/12/2008 12:00 AM CDT [id number] Last visit with pcp 05/02 [facility] Document Id: [id number] Telephone Encounter - Shannon Barrett M.D. - 08/12/2008 12:00 AM CDT [id number] Needs to be seen prior to next refill. Source: [facility] Document Id: [id number] Electronically signed by Conversion, [facility] Glass Vial Bending Conveyor Feeder [id number] at 04/28/2017 11:25 PM CDT Telephone Encounter - Conversion, Historical Provider Ser - 08/12/2008 12:00 AM CDT [id number] Letter out [facility] Document Id: [id number] documented in this encounter Plan of Treatment Upcoming Encounters Date Type Specialty Care Team Description 10/10/2022 Office Visit Neurology Karin Ramachandran M.D., M.P.H. [address] [phone] (Wo rk) documented as of this encounter Visit Diagnoses Not on filedocumented in this encounter
--- OUTSIDE RECORDS SUMMARY | 2022-10-01 11:05 | XMS_ITS | Encounter Summary ---
:1960 Author Organization [facility] Address [address] [place] [address] Care Team Providers Name Role Phone Unavailable Primary Care Provider Unavailable Encounter Details Date Type Department Care Team Description 01/07/2013 Hospital Encounter HX [facility] Aurelia Núñez M.D. [address] [place] [address] (Wo rk) Social History Tobacco Use Types Packs/Day Years Used Date Smoking Tobacco: Never Assessed Sex Assigned at Date Recorded Female 07/10/2022 7:32 AM CDT documented as of this encounter Miscellaneous Notes Telephone Encounter - Conversion, Historical Provider Ser - 01/07/2013 12:00 AM CST [id number] Last visit: BP Readings from Last 1 Encounters: 01/07/13 123/81 [facility] Document Id: [id number] Telephone Encounter - Cora Jack R.N. - 01/07/2013 12:00 AM LAB NURSE [id number] Last visit: BP Readings from Last 1 Encounters: 01/07/13 123/81 Two different instructions on sign. Please clarify. CAD/HTN and/or CHF labs: CR 0.70 11/26/2011 POTASSIUM 5.0 11/26/2011 TSH 4.39 11/26/2011 Source[facility] Document Id: [id number] Electronically signed by Conversion, [facility] Salicylic Acid Blender [id number] at 04/22/2017 12:53 PM CDT documented in this encounter Plan of Treatment Upcoming Encounters Date Type Specialty Care Team Description 10/10/2022 Office Visit Neurology Karin Ramachandran M.D., M.P.H. [address] [phone] (Wo rk) documented as of this encounter Visit Diagnoses Not on filedocumented in this encounter
--- OUTSIDE RECORDS SUMMARY | 2022-10-01 11:05 | XMS_ITS | Encounter Summary ---
:1960 Author Organization [facility] Address [address] [place] [address] Care Team Providers Name Role Phone Unavailable Primary Care Provider Unavailable Encounter Details Date Type Department Care Team Description 04/26/2009 Hospital Encounter HX [facility] Shannon Buitrago M.D. [address] [place] [phone] (Wo rk) Social History Tobacco Use Types Packs/Day Years Used Date Smoking Tobacco: Never Assessed Sex Assigned at Date Recorded Female 07/10/2022 7:32 AM CDT documented as of this encounter Miscellaneous Notes Miscellaneous - Conversion, Historical Provider Ser - 04/26/2009 12:00 AM CDT [id number] Zandra Lopez [address] [address] April 26, 2009 Dear Zandra, Your current [...] future. You may call our office at [phone] at the [facility] to schedule a visit. Please disregard this notice if you have already made an appointment. Sincerely, [facility], [address] [place] [id number] Source: [facility] Document Id: [id number] Telephone Encounter - Conversion, Historical Provider Ser - 04/26/2009 12:00 AM CDT [id number] [facility] Source: [facility] Document Id: [id number] Telephone Encounter - Conversion, Historical Provider Ser - 04/26/2009 12:00 AM CDT [id number] Prescription approved for 1 month per RN refill protocol. Letter sent to patient for recheck appt. Last visit:10/12/08 Last 1 Encounter BP Readings: Date BP 10/12/2008 108/70 TSH 0.48 10/12/08 CAD/HTN and/or CHF labs: CR 0.85 10/12/08 POTASSIUM 4.1 10/12/08 Source: [facility] Document Id: [id number] documented in this encounter Plan of Treatment Upcoming Encounters Date Type Specialty Care Team Description 10/10/2022 Office Visit Neurology Karin Ramachandran M.D., M.P.H. [address] [phone] (Wo rk) documented as of this encounter Visit Diagnoses Not on filedocumented in this encounter
--- OUTSIDE RECORDS SUMMARY | 2022-10-01 11:05 | XMS_ITS | Encounter Summary ---
:1960 Author Organization [facility] Address [address] [place] [address] Care Team Providers Name Role Phone Unavailable Primary Care Provider Unavailable Encounter Details Date Type Department Care Team Description 06/22/2008 Hospital Encounter [facility]X [facility] Melonie Arguello M.D. [facility] [place] [address] (Wo rk) Social History Tobacco Use Types Packs/Day Years Used Date Smoking Tobacco: Never Assessed Sex Assigned at Date Recorded Female 07/10/2022 7:32 AM CDT documented as of this encounter Miscellaneous Notes Telephone Encounter - Alyssa Evans R.N. - 06/22/2008 12:00 AM CDT [id number] Patient called requesting refill for Ambien. Last Visit: with PCP on 04/27/08 Last 1 Encounter BP Readings: Date BP 04/27/2008 112/[address] Will forward request [address]. Arguello in Dr. Barrett's absence. [facility] Document Id: [id number] Electronically signed by Conversion, [facility] Commercial Manager [id number] at 04/29/2017 5:34 AM CDT Telephone Encounter - Robbie Arguello M.D. - 06/22/2008 12:00 AM CDT [id number] Approved x [address] Barrett [facility] Document Id: [id number] Electronically signed by Conversion, [facility] Commercial Manager [id number] at 04/29/2017 5:34 AM CDT documented in this encounter Plan of Treatment Upcoming Encounters Date Type Specialty Care Team Description 10/10/2022 Office Visit Neurology Karin Ramachandran M.D., M.P.H. [address] [phone] (Wo rk) documented as of this encounter Visit Diagnoses Not on filedocumented in this encounter
--- OUTSIDE RECORDS SUMMARY | 2022-10-01 11:05 | XMS_ITS | Encounter Summary ---
:1960 Author Organization [facility] Address [address] [place] [address] Care Team Providers Name Role Phone Unavailable Primary Care Provider Unavailable Encounter Details Date Type Department Care Team Description 10/11/2008 Hospital Encounter HX [facility] Shannon Barrett M.D. [address] [place] [phone] (Wo rk) Social History Tobacco Use Types Packs/Day Years Used Date Smoking Tobacco: Never Assessed Sex Assigned at Date Recorded Female 07/10/2022 7:32 AM CDT documented as of this encounter Plan of Treatment Upcoming Encounters Date Type Specialty Care Team Description 10/10/2022 Office Visit Neurology Karin Ramachandran M.D., M.P.H. [address] [phone] (Wo rk) documented as of this encounter Visit Diagnoses Not on filedocumented in this encounter
--- OUTSIDE RECORDS SUMMARY | 2022-10-01 11:05 | XMS_ITS | Encounter Summary ---
:1960 Author Organization [facility] Address [address] [place] [address] Care Team Providers Name Role Phone Unavailable Primary Care Provider Unavailable Encounter Details Date Type Department Care Team Description 07/10/2011 Hospital Encounter HX [facility] Aurelia Núñez M.D. [address] [place] [phone] (Wo rk) Social History Tobacco Use Types Packs/Day Years Used Date Smoking Tobacco: Never Assessed Sex Assigned at Date Recorded Female 07/10/2022 7:32 AM CDT documented as of this encounter Miscellaneous Notes Miscellaneous - Kristine Pinedo, Abraham - 07/10/2011 12:00 AM CDT [id number] Zandra Lopez [address] [place] [address] [place] July 10, 2011 Dear Zandra, [...] future. You may call our office at [phone] in Family Medicine to schedule a visit. Please disregard this notice if you have already made an appointment. Sincerely, FAMILY [facility], [address] [place] [address] Source: [facility] Document Id: [id number] Electronically signed by Conversion, [facility] Warp Scouring Vat Tender [id number] at 04/27/2017 11:17 PM CDT Telephone Encounter - Conversion, Historical Provider Ser - 07/10/2011 12:00 AM CDT [id number] [facility] Last visit: BP Readings from Last 1 Encounters: 07/24/10 110/63 [facility] Document Id: [id number] Telephone Encounter - Kristine Pinedo R.N. - 07/10/2011 12:00 AM CDT [id number] Last visit: BP Readings from Last 1 Encounters: 07/24/10 110/63 Care plan indicates patient is to RTC for recheck in 1 yr or CAD/HTN and/or CHF labs: CR 0.75 09/01/2010 POTASSIUM 3.6 09/01/2010 TSH 3.56 09/01/2010 [facility] Document Id: [id number] Electronically signed by Conversion, [facility] Warp Scouring Vat Tender [id number] at 04/27/2017 11:17 PM CDT documented in this encounter Plan of Treatment Upcoming Encounters Date Type Specialty Care Team Description 10/10/2022 Office Visit Neurology Karin Ramachandran M.D., M.P.H. [address] [phone] (Wo rk) documented as of this encounter Visit Diagnoses Not on filedocumented in this encounter
--- OUTSIDE RECORDS SUMMARY | 2022-10-01 11:05 | XMS_ITS | Encounter Summary ---
:1960 Author Organization [facility] Address [address] [place] [address] Care Team Providers Name Role Phone Unavailable Primary Care Provider Unavailable Encounter Details Date Type Department Care Team Description 10/11/2008 Hospital Encounter [facility]X [facility] Shannon Patton M.D. [address] [place], [place] [phone] (Wo rk) Social History Tobacco Use Types Packs/Day Years Used Date Smoking Tobacco: Never Assessed Sex Assigned at Date Recorded Female 07/10/2022 7:32 AM CDT documented as of this encounter Plan of Treatment Upcoming Encounters Date Type Specialty Care Team Description 10/10/2022 Office Visit Neurology Karin Ramachandran M.D., M.P.H. [address], [place] [phone] (Wo rk) documented as of this encounter Visit Diagnoses Not on filedocumented in this encounter
--- OUTSIDE RECORDS SUMMARY | 2022-10-01 11:05 | XMS_ITS | Encounter Summary ---
:1960 Author Organization [facility] Address [address] [place] [address] Care Team Providers Name Role Phone Unavailable Primary Care Provider Unavailable Encounter Details Date Type Department Care Team Description 11/21/2009 Hospital Encounter [facility]X [facility] XRAY Provider, Histori darlin Social History Tobacco Use Types Packs/Day Years Used Date Smoking Tobacco: Never Assessed Sex Assigned at Date Recorded Female 07/10/2022 7:32 AM CDT documented as of this encounter Plan of Treatment Upcoming Encounters Date Type Specialty Care Team Description 10/10/2022 Office Visit Neurology Karin Ramachandran M.D., M.P.H. [address], [place] [phone] (Wo rk) documented as of this encounter Visit Diagnoses Not on filedocumented in this encounter
--- OUTSIDE RECORDS SUMMARY | 2022-10-01 11:05 | XMS_ITS | Encounter Summary ---
:1960 Author Organization [facility] Address [address] [place] [address] Care Team Providers Name Role Phone Unavailable Primary Care Provider Unavailable Encounter Details Date Type Department Care Team Description 11/26/2011 Hospital Encounter HX [facility] TIO Aurelia Núñez M.D. [address] [place] [address] (Wo rk) Social History Tobacco Use Types Packs/Day Years Used Date Smoking Tobacco: Never Assessed Sex Assigned at Date Recorded Female 07/10/2022 7:32 AM CDT documented as of this encounter Progress Notes Conversion, Historical Provider Ser - 11/26/2011 2:30 PM CST [id number] Addended by: OLAF RÍOS on: 11/26/2011 Modules accepted: Orders, SmartSet [facility] Document Id: [id number] Faye Liao M.D. - 11/26/2011 2:30 PM CST [id number] Zandra Lopez is here for follow up [...] quit date), and side effects vs benefits. [place] depressed on chantix in the past, has not beenon wellbutrin before. Return to clinic in 12 months or sooner if new or worsening symptoms. Source: [facility] RWHXTRANSXRTFSYS Document Id: [id number] documented in this encounter Miscellaneous Notes Miscellaneous - Conversion, Historical Provider Ser - 11/26/2011 2:30 PM PACKAGING SALES CONSULTANT [id number] 11/28/2011 Zandra Taylor [facility] [address] [facility] [address] [facility] Dear Zandra: Thank you for allowing me [...] to contact us. Sincerely, Faye Liao MD [facility] INTERNAL MEDICINE [facility] [address] Source: [facility] Document Id: [id number] Miscellaneous - Conversion, Historical Provider Ser - 11/26/2011 2:30 PM PACKAGING SALES CONSULTANT [id number] Zandra Lopez [address] [place] [address] June 24, 2012 Dear Zandra Lopez APPOINTMENT REMINDER: Our records indicates that it is time for you to have your annual mammogram completed. You may call our office at [phone] or [phone] to schedule an appointment for a Mammogram. For your convenience, our [facility] now offers portable digital mammograms on the first Saturdayof every month. Please disregard this notice if you have already made an appointment. Sincerely, [facility] Source: [facility] Document Id: [id number] documented in this encounter Plan of Treatment Upcoming Encounters Date Type Specialty Care Team Description 10/10/2022 Office Visit Neurology Karin Ramachandran M.D., M.P.H. [address] [place], [place] [phone] (Wo rk) documented as of this encounter Procedures Procedure Name Priority Date/Time Associated Comments Diagnosis HX LDLCHOL Routine 11/27/2011 7:05 PM Results f or this PACKAGING SALES CONSULTANT procedure are i n the results section. THYROID-STIMULATING Routine 11/27/2011 1:33 PM Re sults for this HORMONE-SENSITIVE PACKAGING SALES CONSULTANT procedure are in (S-TSH) the results section. HX UREA NITROGEN Routine 11/27/2011 1:04 PM Resul ts for this PACKAGING SALES CONSULTANT procedure are i n the results section. HX AGAP Routine 11/27/2011 1:04 PM Results f or this PACKAGING SALES CONSULTANT procedure are i n the results section. CREATININE WITH Routine 11/27/2011 1:04 PM Result s for this EGFR, P PACKAGING SALES CONSULTANT procedure are i n the results section. CREATININE WITH Routine 11/27/2011 1:04 PM Result s for this EGFR, P PACKAGING SALES CONSULTANT procedure are i n the results section. SODIUM, S/P Routine 11/27/2011 1:04 PM Results f or this PACKAGING SALES CONSULTANT procedure are i n the results section. POTASSIUM, S/P Routine 11/27/2011 1:04 PM Results for this PACKAGING SALES CONSULTANT procedure are i n the results section. GLUCOSE, RANDOM, S/P Routine 11/27/2011 1:04 PM R esults for this PACKAGING SALES CONSULTANT procedure are i n the results section. CREATININE WITH Routine 11/27/2011 1:04 PM Result s for this EGFR, S/P PACKAGING SALES CONSULTANT procedure are i n the results section. CHLORIDE, S/P Routine 11/27/2011 1:04 PM Results for this PACKAGING SALES CONSULTANT procedure are i n the results section. BICARBONATE, B/S/P Routine 11/27/2011 1:04 PM Res ults for this PACKAGING SALES CONSULTANT procedure are i n the results section. CALCIUM, TOT, S/P Routine 11/27/2011 1:04 PM Resu lts for this PACKAGING SALES CONSULTANT procedure are i n the results section. documented in this encounter Results HX LDLCHOL (11/27/2011 7:05 PM PACKAGING SALES CONSULTANT) P athologist Signature LDL Cholesterol [address] [facility] Specimen (Source) Anatomical Collection Method Collection Time Re ceived Time Location / / Volume Laterality 11/27/2011 7:05 PM PACKAGING SALES CONSULTANT Narrative [facility] - 01/24/20 14 1:45 AM PACKAGING SALES CONSULTANT Optimal: ? <100 mg/dL Near Optimal: ? 100-129 mg/dL Borderline High: ??130-159 mg/dL High: ? 160-189 mg/dL Very high: ??greater than or equal to 19 0 mg/dL Cannot estimate LDL when triglyceride ex ceeds 400 mg/dL Historical Provider LAB HISTORICAL ORDERS Performing Organization Address City/State/ZIP Code Phon e Number [facility] S-TSH (Thyroid-Stimulating Hormone - Sensitive) (11/27/2011 1:33 PM PACKAGING SALES CONSULTANT) P athologist Signature TSH 4.39 MUNITL [facility] (Thyrotropin) [facility] Specimen (Source) Anatomical Collection Method Collection Time Re ceived Time Location / / Volume Laterality 11/27/2011 1:33 PM PACKAGING SALES CONSULTANT Historical Provider LAB BLOOD ADD-ON Performing Organization Address City/State/ZIP Code Phon e Number [facility] Calcium, Total (11/27/2011 1:04 PM PACKAGING SALES CONSULTANT) P athologist Signature Calcium, Total, 10.0 MGDL [facility] Specimen (Source) Anatomical Collection Method Collection Time Re ceived Time Location / / Volume Laterality 11/27/2011 1:04 PM PACKAGING SALES CONSULTANT Historical Provider LAB BLOOD ADD-ON Performing Organization Address City/State/ZIP Code Phon e Number [facility] Creatinine with Estimated GFR (MDRD), Plasma (11/27/2011 1:04 PM PACKAGING SALES CONSULTANT) P athologist Signature eGFR >90 [id number] [facility] Black/ [facility] [place] LAB Specimen (Source) Anatomical Collection Method Collection Time Re ceived Time Location / / Volume Laterality 11/27/2011 1:04 PM PACKAGING SALES CONSULTANT Historical Provider LAB BLOOD ADD-ON Performing Organization Address City/State/ZIP Code Phon e Number [facility] Creatinine with Estimated GFR (MDRD), Plasma (11/27/2011 1:04 PM PACKAGING SALES CONSULTANT) P athologist Signature HXeGFR (MDRD) [id number] [facility] Specimen (Source) Anatomical Collection Method Collection Time Re ceived Time Location / / Volume Laterality 11/27/2011 1:04 PM PACKAGING SALES CONSULTANT Historical Provider LAB BLOOD ADD-ON Performing Organization Address City/State/ZIP Code Phon e Number [facility] Creatinine with Estimated GFR (MDRD) (11/27/2011 1:04 PM PACKAGING SALES CONSULTANT) P athologist Signature Creatinine 0.[address] [facility] Specimen (Source) Anatomical Collection Method Collection Time Re ceived Time Location / / Volume Laterality 11/27/2011 1:04 PM PACKAGING SALES CONSULTANT Historical Provider LAB BLOOD ADD-ON Performing Organization Address City/State/ZIP Code Phon e Number [facility] HX UREA NITROGEN (11/27/2011 1:04 PM PACKAGING SALES CONSULTANT) P athologist Signature Urea Nitrogen, 17 MGDL [facility] 24 HR, [facility] Specimen (Source) Anatomical Collection Method Collection Time Re ceived Time Location / / Volume Laterality 11/27/2011 1:04 PM PACKAGING SALES CONSULTANT Historical Provider LAB HISTORICAL ORDERS Performing Organization Address City/State/ZIP Code Phon e Number [facility] Glucose, Random (11/27/2011 1:04 PM PACKAGING SALES CONSULTANT) P athologist Signature Glucose [address] [facility] Specimen (Source) Anatomical Collection Method Collection Time Re ceived Time Location / / Volume Laterality 11/27/2011 1:04 PM PACKAGING SALES CONSULTANT Narrative [facility] - 01/24/20 14 1:45 AM PACKAGING SALES CONSULTANT Non Fasting Historical Provider LAB BLOOD TROPONIN Performing Organization Address City/State/ZIP Code Phon e Number [facility] HX AGAP (11/27/2011 1:04 PM PACKAGING SALES CONSULTANT) P athologist Signature Anion Gap [address] [facility] Specimen (Source) Anatomical Collection Method Collection Time Re ceived Time Location / / Volume Laterality 11/27/2011 1:04 PM PACKAGING SALES CONSULTANT Historical Provider LAB HISTORICAL ORDERS Performing Organization Address City/State/ZIP Code Phon e Number [facility] Bicarbonate (11/27/2011 1:04 PM PACKAGING SALES CONSULTANT) P athologist Signature HX Carbon 28 MMOLL [facility] Dioxide [facility] Specimen (Source) Anatomical Collection Method Collection Time Re ceived Time Location / / Volume Laterality 11/27/2011 1:04 PM PACKAGING SALES CONSULTANT Historical Provider LAB BLOOD ADD-ON Performing Organization Address City/State/ZIP Code Phon e Number [facility] Chloride (11/27/2011 1:04 PM PACKAGING SALES CONSULTANT) P athologist Signature Chloride, S [address] [facility] Specimen (Source) Anatomical Collection Method Collection Time Re ceived Time Location / / Volume Laterality 11/27/2011 1:04 PM PACKAGING SALES CONSULTANT Historical Provider LAB BLOOD ADD-ON Performing Organization Address City/State/ZIP Code Phon e Number [facility] Potassium, S (11/27/2011 1:04 PM PACKAGING SALES CONSULTANT) P athologist Signature Potassium, S 5.[address] [facility] Specimen (Source) Anatomical Collection Method Collection Time Re ceived Time Location / / Volume Laterality 11/27/2011 1:04 PM PACKAGING SALES CONSULTANT Historical Provider LAB BLOOD ADD-ON Performing Organization Address City/[facility]/ZIP Code Phon e Number [facility] Sodium (11/27/2011 1:04 PM PACKAGING SALES CONSULTANT) P athologist Signature Sodium, S [address] [facility] Specimen (Source) Anatomical Collection Method Collection Time Re ceived Time Location / / Volume Laterality 11/27/2011 1:04 PM PACKAGING SALES CONSULTANT Historical Provider LAB BLOOD ADD-ON Performing Organization Address City/State/ZIP Code Phon e Number [facility] documented in this encounter Visit Diagnoses Not on filedocumented in this encounter
--- OUTSIDE RECORDS SUMMARY | 2022-10-01 11:05 | XMS_ITS | Encounter Summary ---
:1960 Author Organization [facility] Address [address] [place] [address] Care Team Providers Name Role Phone Unavailable [...] Neurology Karin Ramachandran M.D., M.P.H. [address] [place], [place] [phone] (Wo rk) documented as of this encounter Visit Diagnoses Not on filedocumented in this encounter
--- OUTSIDE RECORDS SUMMARY | 2022-10-01 11:05 | XMS_ITS | Encounter Summary ---
:1960 Author Organization [facility] Address [address] [place] [address] Care Team Providers Name Role Phone Unavailable Primary Care Provider Unavailable Encounter Details Date Type Department Care Team Description 04/27/2008 Hospital Encounter HX [facility] Shannon Barrett M.D. [address] [place] [phone] (Wo rk) Social History Tobacco Use Types Packs/Day Years Used Date Smoking Tobacco: Never Assessed Sex Assigned at Date Recorded Female 07/10/2022 7:32 AM CDT documented as of this encounter Progress Notes Shannon Barrett M.D. - 04/27/2008 4:30 PM CDT [id number] Comment: Gear Grinding Machine Operator. SUBJECTIVE: Zandra Lopez is an 47 year [...] if she can stay on the [facility] or if there is a better alternative [...] including the increased risks of DVT, PE, WI, and stroke. We discussed the probable increased [...] time. PCN/SS/jir HPI ROS Physical Exam Source: [facility] Document Id: [id number] Electronically signed by Gabriela, [facility] Gear Grinding Machine Operator [id number] at 04/29/2017 4:57 AM CDT documented in this encounter Miscellaneous Notes Miscellaneous - Shannon Barrett M.D. - 04/27/2008 4:30 PM CDT [id number] Zandra Lopez [address] [address] June 07, 2008 Dear Ms. Zandra Lopez: [...] questions or problems, please contact me at [phone] in Internal Medicine. Sincerely, (electronically signed to expedite delivery) Shannon aBrrett M.D. INTERNAL MEDICINE Source: [facility] Document Id: [id number] Electronically signed by Conversion, [facility] Gear Grinding Machine Operator [id number] at 04/29/2017 4:57 AM CDT documented in this encounter Plan of Treatment Upcoming Encounters Date Type Specialty Care Team Description 10/10/2022 Office Visit Neurology Karin Ramachandran M.D., M.P.H. [address] [phone] (Wo ) documented as of this encounter Visit Diagnoses Not on filedocumented in this encounter
--- OUTSIDE RECORDS SUMMARY | 2022-10-01 11:05 | XMS_ITS | Encounter Summary ---
:[address] [facility] Address [address] [place] [address] Care Team Providers Name Role Phone Unavailable Primary Care Provider Unavailable Encounter Details Date Type Department Care Team Description 03/28/2011 Hospital Encounter HX [facility] Shannon Garcia M.D. [address] [place] [address] (Wo rk) Social History Tobacco Use Types Packs/Day Years Used Date Smoking Tobacco: Never Assessed Sex Assigned at Date Recorded Female 07/10/2022 7:32 AM CDT documented as of this encounter Miscellaneous Notes Telephone Encounter - Conversion, Historical Provider Ser - 03/28/2011 12:00 AM CDT [id number] [facility] Last visit: BP Readings from Last 1 [...] microalbumin:1] normal 0 - 25 . Source: [facility] Document Id: [id number] Telephone Encounter - Sera Stephens R.N. - 03/28/2011 12:00 AM CDT [id number] Last visit:07/24/10 Yanni--pt to rtc in 1 year BP Readings from Last 1 Encounters: 07/24/10 110/63 Unable to approve medication per the RN refill protocol due to: - Provider not in refill pool Routing to Provider for review and recommendation in Dr. Liao's absence. CAD/HTN and/or CHF labs: CR 0.75 09/01/2010 POTASSIUM 3.6 09/01/2010 TSH 3.56 09/01/2010 Source: [facility] Document Id: [id number] Electronically signed by Conversion, [facility] Instructional Services Specialist [id number] at 04/28/2017 5:00 AM CDT Telephone Encounter - Libra Starks D.O. - 03/28/2011 12:00 AM CDT [id number] Rx faxed. Source: [facility] Document Id: [id number] Electronically signed by Conversion, [facility] Instructional Services Specialist [id number] at 04/28/2017 5:00 AM CDT documented in this encounter Plan of Treatment Upcoming Encounters Date Type Specialty Care Team Description 10/10/2022 Office Visit Neurology Karin Ramachandran M.D., M.P.H. [address] [place] [phone] (Wo rk) documented as of this encounter Visit Diagnoses Not on filedocumented in this encounter
--- OUTSIDE RECORDS SUMMARY | 2022-10-01 11:05 | XMS_ITS | Encounter Summary ---
:1960 Author Organization [facility] Address [address] [place] [address] Care Team Providers Name Role Phone Unavailable Primary Care Provider Unavailable Encounter Details Date Type Department Care Team Description 01/30/2010 Hospital Encounter HX [facility] Aurelia Liao M.D. [address] [place] [address] (Wo rk) Social History Tobacco Use Types Packs/Day Years Used Date Smoking Tobacco: Never Assessed Sex Assigned at Date Recorded Female 07/10/2022 7:32 AM CDT documented as of this encounter Progress Notes Faye Liao M.D. - 01/30/2010 9:30 AM CST [id number] Here for follow up of insomnia. Needs [...] Smoking cessation advised and offered support. Source: [facility] RWHXTRANSXRTFSYS Document Id: [id number] documented in this encounter Plan of Treatment Upcoming Encounters Date Type Specialty Care Team Description 10/10/2022 Office Visit Neurology Karin Ramachandran M.D., M.P.H. [address] [phone] (Wo rk) documented as of this encounter Visit Diagnoses Not on filedocumented in this encounter
--- OUTSIDE RECORDS SUMMARY | 2022-10-01 11:05 | XMS_ITS | Encounter Summary ---
:1960 Author Organization [facility] Address [address] [place] [address] Care Team Providers Name Role Phone Unavailable Primary Care Provider Unavailable Encounter Details Date Type Department Care Team Description 10/12/2008 Hospital Encounter HX NO MAPPING Shannon Barrett M.D. [address] [place] [phone] (Wo rk) Social History Tobacco Use Types Packs/Day Years Used Date Smoking Tobacco: Never Assessed Sex Assigned at Date Recorded Female 07/10/2022 7:32 AM CDT documented as of this encounter Plan of Treatment Upcoming Encounters Date Type Specialty Care Team Description 10/10/2022 Office Visit Neurology Karin Ramachandran M.D., M.P.H. [address] [phone] (Wo rk) documented as of this encounter Visit Diagnoses Not on filedocumented in this encounter
--- OUTSIDE RECORDS SUMMARY | 2022-10-01 11:05 | XMS_ITS | Encounter Summary ---
:1960 Author Organization [facility] Address [address] [place] [address] Care Team Providers Name Role Phone Unavailable Primary Care Provider Unavailable Encounter Details Date Type Department Care Team Description 07/24/2010 Hospital Encounter HX [facility] Aurelia Liao M.D. [address] [place] [address] (Wo rk) Social History Tobacco Use Types Packs/Day Years Used Date Smoking Tobacco: Never Assessed Sex Assigned at Date Recorded Female 07/10/2022 7:32 AM CDT documented as of this encounter Progress Notes Faye Liao M.D. - 07/24/2010 1:00 PM CDT [id number] Zandra Lopez is a 49 year old [...] bleeding. GENITOURINARY: Denies dysuria, incontinence, nocturia, hematuria. DRAPERY SEAMSTRESS: does not breast symptoms, does not Vaginal [...] Refill meds. HTN well controlled-continue CCB. Source: [facility] RWHXTRANSXRTFSYS Document Id: [id number] Electronically signed by Conversion, [facility] Foundry Laborer [employer] [id number] at 04/28/2017 3:39 PM CDT documented in this encounter Miscellaneous Notes Miscellaneous - Faye Liao M.D. - 07/24/2010 1:00 PM CDT [id number] Zandra Taylor [place] [address] [place] [address] [facility] 07/28/2010 Dear Ms. Lopez, I am happy to inform you that your recent cervical cancer screening test (PAP smear) was normal. Preventative screening such as this helps insure your health for years to come. Congratulations for taking care of yourself! Please contact my office if you have any further questions. [phone] Sincerely, Faye Liao M.D. INTERNAL MEDICINE [facility] Source: [facility] Document Id: [id number] Electronically signed by Conversion, [facility] Foundry Laborer [employer] [id number] at 04/28/2017 3:39 PM CDT documented in this encounter Plan of Treatment Upcoming Encounters Date Type Specialty Care Team Description 10/10/2022 Office Visit Neurology Karin Ramachandran M.D., M.P.H. [address] [phone] (Wo rk) documented as of this encounter Visit Diagnoses Not on filedocumented in this encounter
--- OUTSIDE RECORDS SUMMARY | 2022-10-01 11:05 | XMS_ITS | Encounter Summary ---
:1960 Author Organization [facility] Address [address] [place] [address] Care Team Providers Name Role Phone Unavailable Primary Care Provider Unavailable Encounter Details Date Type Department Care Team Description 11/21/2009 Hospital Encounter HX NO MAPPING Shannon Barrett M.D. [address] [place] [phone] (Wo rk) Social History Tobacco Use Types Packs/Day Years Used Date Smoking Tobacco: Never Assessed Sex Assigned at Date Recorded Female 07/10/2022 7:32 AM CDT documented as of this encounter Plan of Treatment Upcoming Encounters Date Type Specialty Care Team Description 10/10/2022 Office Visit Neurology Karin Ramachandran M.D., M.P.H. [address] [phone] (Wo rk) documented as of this encounter Visit Diagnoses Not on filedocumented in this encounter
--- OUTSIDE RECORDS SUMMARY | 2022-10-01 11:05 | XMS_ITS | Encounter Summary ---
:1960 Author Organization [facility] Address [address] [place] [address] Care Team Providers Name Role Phone Unavailable Primary Care Provider Unavailable Encounter Details Date Type Department Care Team Description 08/04/2009 Hospital Encounter HX [facility] Shannon Buitrago M.D. [address] [place] [phone] (Wo rk) Social History Tobacco Use Types Packs/Day Years Used Date Smoking Tobacco: Never Assessed Sex Assigned at Date Recorded Female 07/10/2022 7:32 AM CDT documented as of this encounter Miscellaneous Notes Telephone Encounter - Conversion, Historical Provider Ser - 08/04/2009 12:00 AM CDT [id number] Accepting this Rx will FAX it directly to the pharmacy. Thank You! Source: [facility] Document Id: [id number] Telephone Encounter - Chante Kenyon R.N. - 08/04/2009 12:00 AM CDT [id number] Last visit: 07/12/09 Last 1 Encounter BP Readings: Date BP 07/12/2009 120/66 CAD/HTN and/or CHF labs: CR 0.72 07/12/09 POTASSIUM 4.5 07/12/09 TSH 0.57 07/12/09 Source: [facility] Document Id: [id number] documented in this encounter Plan of Treatment Upcoming Encounters Date Type Specialty Care Team Description 10/10/2022 Office Visit Neurology Karin Ramachandran M.D., M.P.H. [address] [phone] (Wo rk) documented as of this encounter Visit Diagnoses Not on filedocumented in this encounter
--- OUTSIDE RECORDS SUMMARY | 2022-10-01 11:05 | XMS_ITS | Encounter Summary ---
:1960 Author Organization [facility] Address [address] [place] [address] Care Team Providers Name Role Phone Unavailable Primary Care Provider Unavailable Encounter Details Date Type Department Care Team Description 12/05/2009 Hospital Encounter HX [facility] TIO Shannon Garcia M.D. [address] [place] [phone] (Wo rk) Social History Tobacco Use Types Packs/Day Years Used Date Smoking Tobacco: Never Assessed Sex Assigned at Date Recorded Female 07/10/2022 7:32 AM CDT documented as of this encounter Miscellaneous Notes Miscellaneous - Jordyn Hoskins R.N. - 12/05/2009 12:00 AM CST [id number] Zandra Lopez [address] [address] December 05, 2009 Dear Zandra, Your current [...] future. You may call our office at [phone] in Internal Medicine to schedule a visit. Please disregard this notice if you have already made an appointment. Sincerely, INTERNAL MEDICINE [facility], [address] [place] [id number] Source: [facility] Document Id: [id number] Electronically signed by Conversion, [facility] Self Pay Collector [id number] at 04/28/2017 8:14 AM CDT Telephone Encounter - Conversion, Historical Provider Ser - 12/05/2009 12:00 AM CST [id number] Accepting this Rx will FAX it directly to the pharmacy. Thank You! Source: [facility] Document Id: [id number] Telephone Encounter - Jordyn Hoskins R.N. - 12/05/2009 12:00 AM CST [id number] Last visit:07/12/09 Last 1 Encounter BP Readings: Date BP 07/12/2009 120/66 Prescription approved for 1 month per RN refill protocol. Letter sent to patient for recheck appt. TSH 0.57 07/12/09 CAD/HTN and/or CHF labs: CR 0.72 07/12/09 POTASSIUM 4.5 07/12/09 Source: [facility] Document Id: [id number] Electronically signed by Conversion, [facility] Self Pay Collector [id number] at 04/28/2017 8:14 AM CDT documented in this encounter Plan of Treatment Upcoming Encounters Date Type Specialty Care Team Description 10/10/2022 Office Visit Neurology Karin Ramachandran M.D., M.P.H. [address] [phone] (Wo rk) documented as of this encounter Visit Diagnoses Not on filedocumented in this encounter
--- OUTSIDE RECORDS SUMMARY | 2022-10-01 11:06 | XMS_ITS | Encounter Summary ---
:1960 Author Organization [facility] Address [address] [place] [address] Care Team Providers Name Role Phone Unavailable Primary Care Provider Unavailable Encounter Details Date Type Department Care Team Description 03/11/2007 Hospital Encounter HX [facility] ORTHO Provider, Histor ical Social History Tobacco Use Types Packs/Day Years Used Date Smoking Tobacco: Never Assessed Sex Assigned at Date Recorded Female 07/10/2022 7:32 AM CDT documented as of this encounter Miscellaneous Notes Telephone Encounter - Conversion, Historical Provider Ser - 03/11/2007 12:00 AM CDT [id number] TELEPHONE TRIAGE ENCOUNTER FORM Date: 03/11/2007 PCP: Shannon Barrett MD Patient Name: Zandra Lopez Gender: female : 1960 Age: [age] year old Time: 11:28 AM Phone Numbers: [phone] (home) Pharmacy: [facility] Presenting Problem: Left shoulder post operative pain [...] to plan? Yes EVALUATION / FOLLOW-UP Source: [facility] Document Id: [id number] documented in this encounter Plan of Treatment Upcoming Encounters Date Type Specialty Care Team Description 10/10/2022 Office Visit Neurology Karin Ramachandran M.D., M.P.H. [address] [phone] (Wo rk) documented as of this encounter Visit Diagnoses Not on filedocumented in this encounter
--- OUTSIDE RECORDS SUMMARY | 2022-10-01 11:06 | XMS_ITS | Encounter Summary ---
:1960 Author Organization [facility] Address [address] [place] [address] Care Team Providers Name Role Phone Unavailable Primary Care Provider Unavailable Encounter Details Date Type Department Care Team Description 03/10/2007 Hospital Encounter HX NO MAPPING Jarrod Persaud M.D. [address] [place], [place] [address] Social History Tobacco Use Types Packs/Day Years Used Date Smoking Tobacco: Never Assessed Sex Assigned at Date Recorded Female 07/10/2022 7:32 AM CDT documented as of this encounter Plan of Treatment Upcoming Encounters Date Type Specialty Care Team Description 10/10/2022 Office Visit Neurology Karin Ramachandran M.D., M.P.H. [address] [place], [place] [phone] (Wo rk) documented as of this encounter Visit Diagnoses Not on filedocumented in this encounter
--- OUTSIDE RECORDS SUMMARY | 2022-10-01 11:06 | XMS_ITS | Encounter Summary ---
:1960 Author Organization [facility] Address [address] [place] [address] Care Team Providers Name Role Phone Unavailable Primary Care Provider Unavailable Encounter Details Date Type Department Care Team Description 09/25/[address] [facility] Provider, Histori darlin Social History Tobacco Use Types Packs/Day Years Used Date Smoking Tobacco: Never Assessed Sex Assigned at Date Recorded Female 07/10/2022 7:32 AM CDT documented as of this encounter Plan of Treatment Upcoming Encounters Date Type Specialty Care Team Description 10/10/2022 Office Visit Neurology Karin Ramachandran M.D., M.P.H. [address], [place] [phone] (Wo rk) documented as of this encounter Visit Diagnoses Not on filedocumented in this encounter
--- OUTSIDE RECORDS SUMMARY | 2022-10-01 11:06 | XMS_ITS | Encounter Summary ---
:1960 Author Organization [facility] Address [address] [place] [address] Care Team Providers Name Role Phone Unavailable [...] Visit Neurology Karin Ramachandran M.D., M.P.H. [address] [place], [place] [phone] (Wo rk) documented as of this encounter Visit Diagnoses Not on filedocumented in this encounter
--- OUTSIDE RECORDS SUMMARY | 2022-10-01 11:06 | XMS_ITS | Encounter Summary ---
:1960 Author Organization [facility] Address [address] [place] [address] Care Team Providers Name Role Phone Unavailable Primary Care Provider Unavailable Encounter Details Date Type Department Care Team Description 02/17/2008 Hospital Encounter HX [facility] Shannon Buitrago M.D. [address] [place] [address] (Wo rk) Social History Tobacco Use Types Packs/Day Years Used Date Smoking Tobacco: Never Assessed Sex Assigned at Date Recorded Female 07/10/2022 7:32 AM CDT documented as of this encounter Miscellaneous Notes Telephone Encounter - Conversion, Historical Provider Ser - 02/17/2008 12:00 AM CDT [id number] Last visit with pcp 08/31. Last refill was for 30 on 11/20/07. patient called and would like a refill. Source: [facility] Document Id: [id number] documented in this encounter Plan of Treatment Upcoming Encounters Date Type Specialty Care Team Description 10/10/2022 Office Visit Neurology Karin Ramachandran M.D., M.P.H. [address] [place], [place] [phone] (Wo rk) documented as of this encounter Visit Diagnoses Not on filedocumented in this encounter
--- OUTSIDE RECORDS SUMMARY | 2022-10-01 11:06 | XMS_ITS | Encounter Summary ---
:1960 Author Organization [facility] Address [address] [place] [address] Care Team Providers Name Role Phone Unavailable Primary Care Provider Unavailable Encounter Details Date Type Department Care Team Description 09/19/2007 Hospital Encounter HX [facility] TIO INTERNShannon Lewis M.D. [address] [place] [address] (Wo rk) Social History Tobacco Use Types Packs/Day Years Used Date Smoking Tobacco: Never Assessed Sex Assigned at Date Recorded Female 07/10/2022 7:32 AM CDT documented as of this encounter Progress Notes Shannon Vergara M.D. - 09/19/2007 9:30 AM CDT [id number] Addended by: SHANNON VERGARA on: 09/22/2007 9:09:23 AM Modules accepted: Orders Source: [facility] UN[facility]XTR[facility] Document Id: [id number] Electronically signed by Gabriela, [facility] Primer Press Operator [id number] at 04/29/2017 2:00 PM CDT Shannon Vergara M.D. - 09/19/2007 9:30 AM CDT [id number] SUBJECTIVE: Patient here for a physical. HYPERTENSION: [...] aches. No H/O back pain or discomfort. PROFESSOR OF JOURNALISM: No headaches. No dizziness, seizures, tremors, numbness, [...] Exam: Normal tone. No masses. No tenderness. PROFESSOR OF JOURNALISM: Alert and oriented x3. Cranial nerves intact. [...] Discussed good sleep hygiene and avoidence of stimulation.Letyien prescribed with instructions on how to prevent dependence .Discussed alternates. Source: [facility] Document Id: [id number] Electronically signed by Conversion, [facility] Primer Press Operator [id number] at 04/29/2017 2:00 PM CDT documented in this encounter Miscellaneous Notes Nancycellpepper - Shannon Vergara M.D. - 09/19/2007 9:30 AM CDT [id number] Zandra Lopez [address] [place] [address] September 22, 2007 Dear Evans Lopez: I am writing to inform you [...] questions or problems, please contact me at [phone] in Internal Medicine. Sincerely, (electronically signed to expedite delivery) Shannno Vergara M.D. INTERNAL MEDICINE Source: [facility] Document Id: [id number] Electronically signed by Conversion, [facility] Primer Press Operator [id number] at 04/29/2017 2:00 PM CDT Miscellaneous - Shannon Vergara M.D. - 09/19/2007 9:30 AM CDT [id number] Zandra Taylor [facility] [address] [address] November 14, 2007 Dear Zandra, I am happy to inform you that your recent cervical cancer screening test (PAP smear) was normal. Preventative screening such as this helps insure your health for years to come. Congratulations for taking care of yourself! Please contact my office at [phone] if you have any further questions. Sincerely, (electronically signed to expedite delivery) Shannon Fraga M.D. Internal Medicine [facility] Source: [facility] UNITHXTRANSXRTFSYS Document Id: [id number] Electronically signed by Conversion, [facility] Primer Press Operator [id number] at 04/29/2017 2:00 PM CDT documented in this encounter Plan of Treatment Upcoming Encounters Date Type Specialty Care Team Description 10/10/2022 Office Visit Neurology Karin Ramachandran M.D., M.P.H. [address] [place], [place] [phone] (Wo rk) documented as of this encounter Visit Diagnoses Not on filedocumented in this encounter
--- OUTSIDE RECORDS SUMMARY | 2022-10-01 11:06 | XMS_ITS | Encounter Summary ---
:1960 Author Organization [facility] Address [address] [place] [address] Care Team Providers Name Role Phone Unavailable Primary Care Provider Unavailable Encounter Details Date Type Department Care Team Description 01/09/2008 Hospital Encounter HX [facility] Shannon Tan M.D. [address] [place] [phone] (Wo rk) Social History Tobacco Use Types Packs/Day Years Used Date Smoking Tobacco: Never Assessed Sex Assigned at Date Recorded Female 07/10/2022 7:32 AM CDT documented as of this encounter Miscellaneous Notes Telephone Encounter - Conversion, Historical Provider Ser - 01/09/2008 12:00 AM CST [id number] Accepting this Rx will FAX it directly to the pharmacy. Thank You! Source: [facility] Document Id: [id number] Telephone Encounter - Conversion, Historical Provider Ser - 01/09/2008 12:00 AM CST [id number] Called pharmacy as pt received 10 refills in August. Pharmacy verified she does have refills. Source: [facility] Document Id: [id number] documented in this encounter Plan of Treatment Upcoming Encounters Date Type Specialty Care Team Description 10/10/2022 Office Visit Neurology Karin Ramachandran M.D., M.P.H. [address] [place], [place] [phone] (Wo rk) documented as of this encounter Visit Diagnoses Not on filedocumented in this encounter
--- OUTSIDE RECORDS SUMMARY | 2022-10-01 11:06 | XMS_ITS | Encounter Summary ---
:1960 Author Organization [facility] Address [address] [place] [address] Care Team Providers Name Role Phone Unavailable Primary Care Provider Unavailable Encounter Details Date Type Department Care Team Description 03/19/2007 Hospital Encounter HX [facility] ORTHO Juan Antonio Walters P.A.-C. Social History Tobacco Use Types Packs/Day Years Used Date Smoking Tobacco: Never Assessed Sex Assigned at Date Recorded Female 07/10/2022 7:32 AM CDT documented as of this encounter Progress Notes Juan Antonio Walters - 03/19/2007 1:00 PM CDT [id number] CLINIC ENCOUNTER SUBJECTIVE: Ms. Lopez is a [...] to assure that things are progressing satisfactorily. Juan Antonio Walters PA-C CHELA/law cc: [facility]: [facility] RWHXTR[facility]SYS Document Id: [id number] documented in this encounter Plan of Treatment Upcoming Encounters Date Type Specialty Care Team Description 10/10/2022 Office Visit Neurology Karin Ramachandran M.D., M.P.H. [address] [phone] (Wo rk) documented as of this encounter Visit Diagnoses Not on filedocumented in this encounter
--- OUTSIDE RECORDS SUMMARY | 2022-10-01 11:06 | XMS_ITS | Encounter Summary ---
:1960 Author Organization [facility] Address [address] [place] [address] Care Team Providers Name Role Phone Unavailable Primary Care Provider Unavailable Encounter Details Date Type Department Care Team Description 03/05/2007 Hospital Encounter HX [facility] Nishant Hughes, P.T. [address] [place], [place] [phone] Social History Tobacco Use Types Packs/Day Years Used Date Smoking Tobacco: Never Assessed Sex Assigned at Date Recorded Female 07/10/2022 7:32 AM CDT documented as of this encounter Progress Notes Chelo Hughes, P.T. - 03/05/2007 8:30 AM CDT [id number] PHYSICAL THERAPY PRE-OPERATIVE ASSESSMENT AND EDUCATION Patient [...] post operatively per rotator cuff protocol in [place]. Chelo Hughes, PT NURSING PROGRAM COORDINATOR PRESENT: MARLENA MULTIDISCIPLINARY PATIENT / FAMILY EDUCATION [...] Demonstrated ability, Verbalized recall / understanding Source: [facility] RWHXTRANSXRTFSYS Document Id: [id number] documented in this encounter Plan of Treatment Upcoming Encounters Date Type Specialty Care Team Description 10/10/2022 Office Visit Neurology Karin Ramachandran M.D., M.P.H. [address] [phone] (Wo rk) documented as of this encounter Visit Diagnoses Not on filedocumented in this encounter
--- OUTSIDE RECORDS SUMMARY | 2022-10-01 11:06 | XMS_ITS | Encounter Summary ---
:1960 Author Organization [facility] Address [address] [place] [address] Care Team Providers Name Role Phone Unavailable [...] Visit Neurology Karin Ramachandran M.D., M.P.H. [address] [place], [place] [phone] (Wo rk) documented as of this encounter Visit Diagnoses Not on filedocumented in this encounter
--- OUTSIDE RECORDS SUMMARY | 2022-10-01 11:06 | XMS_ITS | Encounter Summary ---
:1960 Author Organization [facility] Address [address] [place] [address] Care Team Providers Name Role Phone Unavailable Primary Care Provider Unavailable Encounter Details Date Type Department Care Team Description 03/05/[address] [facility] INTERNMED Provider, Chapito galloway Social History Tobacco Use Types Packs/Day Years Used Date Smoking Tobacco: Never Assessed Sex Assigned at Date Recorded Female 07/10/2022 7:32 AM CDT documented as of this encounter Progress Notes Conversion, Historical Provider Ser - 03/05/2007 9:30 AM CDT [id number] HISTORY & PHYSICAL CC: Chief Complaint Patient [...] Hauser M.D. Department of Internal Medicine Source: [facility] Document Id: [id number] documented in this encounter Plan of Treatment Upcoming Encounters Date Type Specialty Care Team Description 10/10/2022 Office Visit Neurology Karin Ramachandran M.D., M.P.H. [address] [phone] ( rk) documented as of this encounter Visit Diagnoses Not on filedocumented in this encounter
--- OUTSIDE RECORDS SUMMARY | 2022-10-01 11:06 | XMS_ITS | Encounter Summary ---
:1960 Author Organization [facility] Address [address] [place] [address] Care Team Providers Name Role Phone Unavailable Primary Care Provider Unavailable Encounter Details Date Type Department Care Team Description 09/25/2007 Hospital Encounter HX NO MAPPING Shannon Barrett M.D. [address] [place] [phone] (Wo rk) Social History Tobacco Use Types Packs/Day Years Used Date Smoking Tobacco: Never Assessed Sex Assigned at Date Recorded Female 07/10/2022 7:32 AM CDT documented as of this encounter Plan of Treatment Upcoming Encounters Date Type Specialty Care Team Description 10/10/2022 Office Visit Neurology Karin Ramachandran M.D., M.P.H. [address] [phone] (Wo rk) documented as of this encounter Visit Diagnoses Not on filedocumented in this encounter
--- OUTSIDE RECORDS SUMMARY | 2022-10-01 11:06 | XMS_ITS | Encounter Summary ---
:1960 Author Organization [facility] Address [address] [place] [address] Care Team Providers Name Role Phone Unavailable Primary Care Provider Unavailable Encounter Details Date Type Department Care Team Description 07/21/2007 Hospital Encounter HX [facility] Shannon Buitrago M.D. [address] [place] [address] (Wo rk) Social History Tobacco Use Types Packs/Day Years Used Date Smoking Tobacco: Never Assessed Sex Assigned at Date Recorded Female 07/10/2022 7:32 AM CDT documented as of this encounter Miscellaneous Notes Telephone Encounter - Conversion, Historical Provider Ser - 07/21/2007 12:00 AM CDT [id number] Last visit with Dr. Hauser for preop 03/05/07 [employer] [facility] Source: [facility] Document Id: [id number] Telephone Encounter - Conversion, Historical Provider Ser - 07/21/2007 12:00 AM CDT [id number] Unable to approve medication per the RN refill protocol due to: Over due labs Last visit:01/16/07 Last 1 BP Readings: Date: BP: 03/05/2007 112/70 TSH 1.16 11/26/2005 CAD/HTN and or CHF labs: CR 0.85 01/18/2006 POTASSIUM 3.8 01/18/2006 Source: [facility] Document Id: [id number] documented in this encounter Plan of Treatment Upcoming Encounters Date Type Specialty Care Team Description 10/10/2022 Office Visit Neurology Karin Ramachandran M.D., M.P.H. [address] [phone] (Wo rk) documented as of this encounter Visit Diagnoses Not on filedocumented in this encounter
--- OUTSIDE RECORDS SUMMARY | 2022-10-01 11:06 | XMS_ITS | Encounter Summary ---
:1960 Author Organization [facility] Address [address] [place] [address] Care Team Providers Name Role Phone Unavailable Primary Care Provider Unavailable Encounter Details Date Type Department Care Team Description 11/20/2007 Hospital En[facility] Melonie Arguello M.D. [facility] [facility] [place] [phone] (Wo rk) Social History Tobacco Use Types Packs/Day Years Used Date Smoking Tobacco: Never Assessed Sex Assigned at Date Recorded Female 07/10/2022 7:32 AM CDT documented as of this encounter Miscellaneous Notes Telephone Encounter - Conversion, Historical Provider Ser - 11/20/2007 12:00 AM CST [id number] This is one of Shannon's patients, she was seen by her 09/19/07 for a pe. She had this med filled than for 30 pills. Would like a refill, chould you please address in pcp absence. Thanks Source: [facility] Document Id: [id number] Telephone Encounter - Conversion, Historical Provider Ser - 11/20/2007 12:00 AM CST [id number] patient called Source: [facility] Document Id: [id number] documented in this encounter Plan of Treatment Upcoming Encounters Date Type Specialty Care Team Description 10/10/2022 Office Visit Neurology Karin Ramachandran M.D., M.P.H. [address] [place], [place] [phone] (Wo rk) documented as of this encounter Visit Diagnoses Not on filedocumented in this encounter
--- OUTSIDE RECORDS SUMMARY | 2022-10-01 11:06 | XMS_ITS | Encounter Summary ---
:1960 Author Organization [facility] Address [address] [place] [address] Care Team Providers Name Role Phone Unavailable Primary Care Provider Unavailable Encounter Details Date Type Department Care Team Description 03/05/2007 Hospital Encounter HX NO MAPPING Jarrod Persaud M.D. [address] [place], [place] [address] Social History Tobacco Use Types Packs/Day Years Used Date Smoking Tobacco: Never Assessed Sex Assigned at Date Recorded Female 07/10/2022 7:32 AM CDT documented as of this encounter Plan of Treatment Upcoming Encounters Date Type Specialty Care Team Description 10/10/2022 Office Visit Neurology Karin Ramachandran M.D., M.P.H. [address] [place], [place] [phone] (Wo rk) documented as of this encounter Visit Diagnoses Not on filedocumented in this encounter
--- OUTSIDE RECORDS SUMMARY | 2022-10-01 11:06 | XMS_ITS | Encounter Summary ---
:1960 Author Organization [facility] Address [address] [place] [address] Care Team Providers Name Role Phone Unavailable Primary Care Provider Unavailable Encounter Details Date Type Department Care Team Description 03/20/2007 Hospital Encounter HX [facility] ORTHO Lopez Coles ra [employer]NE[employer] [address] [place], [place] [phone] Social History Tobacco Use Types Packs/Day Years Used Date Smoking Tobacco: Never Assessed Sex Assigned at Date Recorded Female 07/10/2022 7:32 AM CDT documented as of this encounter Miscellaneous Notes Telephone Encounter - Zandra Coles, R.N. - 03/20/2007 12:00 AM CDT [id number] Refill for percocet. Needs signed copy. Source: [facility] Document Id: [id number] Electronically signed by Conversion, [facility] Retort Operator [id number] at 04/29/2017 10:22 AM CDT Telephone Encounter - Carrillo Persaud M.D. - 03/20/2007 12:00 AM CDT [id number] Done RR Source: [facility] Document Id: [id number] Electronically signed by [facility] Retort Operator [id number] at 04/29/2017 10:22 AM CDT documented in this encounter Plan of Treatment Upcoming Encounters Date Type Specialty Care Team Description 10/10/2022 Office Visit Neurology Karin Ramachandran M.D., M.P.H. [address] [place], [place] [phone] (Wo rk) documented as of this encounter Visit Diagnoses Not on filedocumented in this encounter
--- OUTSIDE RECORDS SUMMARY | 2022-10-01 11:06 | XMS_ITS | Encounter Summary ---
:1960 Author Organization [facility] Address [address] [place] [address] Care Team Providers Name Role Phone Unavailable Primary Care Provider Unavailable Encounter Details Date Type Department Care Team Description 10/24/2007 Hospital Encounter HX [facility] Shannon Buitrago M.D. [address] [place] [address] (Wo rk) Social History Tobacco Use Types Packs/Day Years Used Date Smoking Tobacco: Never Assessed Sex Assigned at Date Recorded Female 07/10/2022 7:32 AM CDT documented as of this encounter Miscellaneous Notes Telephone Encounter - Conversion, Historical Provider Ser - 10/24/2007 12:00 AM CST [id number] Accepting this Rx will FAX it directly to the pharmacy. Thank You! Source: [facility] Document Id: [id number] Telephone Encounter - Chante Kenyon R.N. - 10/24/2007 12:00 AM WORSHIP PASTOR [id number] Prescription approved per RN refill protocol. Last visit: 09/19/07 Last 1 BP Readings: Date: BP: 09/19/2007 112/80 CAD/HTN and or CHF labs: CR 0.85 01/18/2006 POTASSIUM 3.8 01/18/2006 LDL 106 09/19/2007 TSH 1.87 09/19/2007 Source: [facility] Document Id: [id number] documented in this encounter Plan of Treatment Upcoming Encounters Date Type Specialty Care Team Description 10/10/2022 Office Visit Neurology Karin Ramachandran M.D., M.P.H. [address] [phone] (Wo rk) documented as of this encounter Visit Diagnoses Not on filedocumented in this encounter
--- OUTSIDE RECORDS SUMMARY | 2022-10-01 11:06 | XMS_ITS | Encounter Summary ---
:1960 Author Organization [facility] Address [address] [place] [address] Care Team Providers Name Role Phone Unavailable [...] Neurology Karin Ramachandran M.D., M.P.H. [address] [place], [place] [phone] (Wo rk) documented as of this encounter Visit Diagnoses Not on filedocumented in this encounter
--- OUTSIDE RECORDS SUMMARY | 2022-10-01 11:06 | XMS_ITS | Encounter Summary ---
:1960 Author Organization [facility] Address [address] [place] [address] Care Team Providers Name Role Phone Unavailable Primary Care Provider Unavailable Encounter Details Date Type Department Care Team Description 09/12/2007 Hospital Encounter HX [facility] Shannon Garcia M.D. [address] [place] [phone] (Wo rk) Social History Tobacco Use Types Packs/Day Years Used Date Smoking Tobacco: Never Assessed Sex Assigned at Date Recorded Female 07/10/2022 7:32 AM CDT documented as of this encounter Miscellaneous Notes Telephone Encounter - Shannon Barrett M.D. - 09/12/2007 12:00 AM CDT [id number] Needs to be seen prior to next refill. [facility] Document Id: [id number] Electronically signed by Conversion, [facility] Correctional Officer [id number] at 04/29/2017 2:00 PM CDT Telephone Encounter - Alyssa Evans R.N. - 09/12/2007 12:00 AM CDT [id number] Patient calls requesting refill for Actonel. Source: [facility] Document Id: [id number] Electronically signed by Conversion, [facility] Correctional Officer [id number] at 04/29/2017 2:00 PM CDT Telephone Encounter - Nati Desouza R.N. - 09/12/2007 12:00 AM CDT [id number] Unable to approve medication per the RN refill protocol due to: - overdue labs Last office visit was 01/16/07 per dictation to return in 4 weeks. Last 1 BP Readings: Date: BP: 03/05/2007 112/70 CAD/HTN and or CHF labs: CR 0.85 01/18/2006 POTASSIUM 3.8 01/18/2006 LDL 96 11/16/2002 TSH 1.16 11/26/2005 Source: [facility] Document Id: [id number] Electronically signed by Conversion, [facility] Correctional Officer [id number] at 04/29/2017 2:00 PM CDT documented in this encounter Plan of Treatment Upcoming Encounters Date Type Specialty Care Team Description 10/10/2022 Office Visit Neurology Karin Ramachandran M.D., M.P.H. [address] [phone] (Wo rk) documented as of this encounter Visit Diagnoses Not on filedocumented in this encounter
--- OUTSIDE RECORDS SUMMARY | 2022-10-01 11:06 | XMS_ITS | Encounter Summary ---
:1960 Author Organization [facility] Address [address] [place] [address] Care Team Providers Name Role Phone Unavailable Primary Care Provider Unavailable Encounter Details Date Type Department Care Team Description 04/21/2008 Hospital Encounter HX [facility] Shannon Garcia M.D. [address] [place] [address] (Wo rk) Social History Tobacco Use Types Packs/Day Years Used Date Smoking Tobacco: Never Assessed Sex Assigned at Date Recorded Female 07/10/2022 7:32 AM CDT documented as of this encounter Miscellaneous Notes Telephone Encounter - Alyssa Evans R.N. - 04/21/2008 12:00 AM CDT [id number] Patient called dental office receptionist, would like refill for Ambien. Last Visit: with PCP on 09/19/07, needs to F/U in 6 months, no appointment made Last 1 Encounter BP Readings: Date BP 09/19/2007 112/80 Accepting this Rx will FAX it directly to the pharmacy. Source: [facility] Document Id: [id number] Electronically signed by Conversion, [facility] Carbon Paper Machine Operator [id number] at 04/29/2017 6:55 AM CDT Telephone Encounter - Shannon Barrett M.D. - 04/21/2008 12:00 AM CDT [id number] Needs to be seen prior to refill. Source: [facility] Document Id: [id number] Electronically signed by Conversion, [facility] Carbon Paper Machine Operator [id number] at 04/29/2017 6:55 AM CDT Telephone Encounter - Alyssa Evans R.N. - 04/21/2008 12:00 AM CDT [id number] Called patient and appointment arranged to see PCP tomorrow. Source: [facility] Document Id: [id number] Electronically signed by Conversion, [facility] Carbon Paper Machine Operator [id number] at 04/29/2017 6:55 AM CDT documented in this encounter Plan of Treatment Upcoming Encounters Date Type Specialty Care Team Description 10/10/2022 Office Visit Neurology Karin Ramachandran M.D., M.P.H. [address] [phone] (Wo rk) documented as of this encounter Visit Diagnoses Not on filedocumented in this encounter
--- OUTSIDE RECORDS SUMMARY | 2022-10-01 11:06 | XMS_ITS | Encounter Summary ---
:1960 Author Organization [facility] Address [address] [place] [address] Care Team Providers Name Role Phone Unavailable Primary Care Provider Unavailable Encounter Details Date Type Department Care Team Description 04/15/2007 Hospital Encounter HX [facility] Carrillo Charles M.D. [address] [place], [place] [address] Social History Tobacco Use Types Packs/Day Years Used Date Smoking Tobacco: Never Assessed Sex Assigned at Date Recorded Female 07/10/2022 7:32 AM CDT documented as of this encounter Progress Notes Zandra Coles, R.N. - 04/15/2007 2:00 PM CDT [id number] Addended by: ZANDRA COLES on: 04/15/2007 4:06:49 PM Modules accepted: Orders, SmartSet Source: [facility] Document Id: [id number] Electronically signed by Gabriela [facility] Process Development Engineer [id number] at 04/29/2017 8:34 AM CDT Carrillo Persaud M.D. - 04/15/2007 2:00 PM CDT [id number] CLINIC ENCOUNTER SUBJECTIVE: Zandra is about [age] [...] visit. Carrillo Persaud M.D. JARVIS/erwin cc: Source: [facility] Document Id: [id number] Electronically signed by Conversion, [facility] Process Development Engineer [id number] at 04/29/2017 8:34 AM CDT documented in this encounter Miscellaneous Notes Miscellaneous - Carrillo Persaud M.D. - 04/15/2007 2:00 PM CDT [id number] Zandra Lopez [id number] [id number] MR# [id number] April 15, 2007 Dear Zandra Lopez This letter confirms that you are recovering from left shoulder surgery, and should be able to return to light duty 04/16/07 with a 5 lb lifting limit, and nothing higher than shoulder height. If there are questions, please call. Sincerely, Carrillo Persaud M.D. ORTHOPEDIC SURGERY [facility] Source: [facility] Document Id: [id number] Electronically signed by Conversion, [facility] Process Development Engineer [id number] at 04/29/2017 8:34 AM CDT documented in this encounter Plan of Treatment Upcoming Encounters Date Type Specialty Care Team Description 10/10/2022 Office Visit Neurology Karin Ramachandran M.D., M.P.H. [address] [place], [place] [phone] (Wo rk) documented as of this encounter Visit Diagnoses Not on filedocumented in this encounter
--- OUTSIDE RECORDS SUMMARY | 2022-10-01 11:07 | XMS_ITS | Encounter Summary ---
:1960 Author Organization [facility] Address [address] [place] [address] Care Team Providers Name Role Phone Unavailable Primary Care Provider Unavailable Encounter Details Date Type Department Care Team Description 01/03/2007 Hospital Encounter HX NO MAPPING Shannon Barrett M.D. [address] [place] [phone] (Wo rk) Social History Tobacco Use Types Packs/Day Years Used Date Smoking Tobacco: Never Assessed Sex Assigned at Date Recorded Female 07/10/2022 7:32 AM CDT documented as of this encounter Plan of Treatment Upcoming Encounters Date Type Specialty Care Team Description 10/10/2022 Office Visit Neurology Karin Ramachandran M.D., M.P.H. [address] [phone] (Wo rk) documented as of this encounter Visit Diagnoses Not on filedocumented in this encounter
--- OUTSIDE RECORDS SUMMARY | 2022-10-01 11:07 | XMS_ITS | Encounter Summary ---
:1960 Author Organization [facility] Address [address] [place] [address] Care Team Providers Name Role Phone Unavailable Primary Care Provider Unavailable Encounter Details Date Type Department Care Team Description 01/02/2007 Hospital Encounter [facility] Shannon Barrett M.D. [address] [place] [phone] (Wo rk) Social History Tobacco Use Types Packs/Day Years Used Date Smoking Tobacco: Never Assessed Sex Assigned at Date Recorded Female 07/10/2022 7:32 AM CDT documented as of this encounter Progress Notes Shannon Barrett M.D. - 01/02/2007 3:30 PM CST [id number] Comment: Snack Bar Cashier SUBJECTIVE: Zandra Lopez is a 46 year [...] anxiety disorder associated with sleep problems. Source: [facility] Document Id: [id number] Electronically signed by Gabriela, [facility] Snack Bar Cashier [id number] at 04/29/2017 10:52 AM CDT documented in this encounter Plan of Treatment Upcoming Encounters Date Type Specialty Care Team Description 10/10/2022 Office Visit Neurology Karin Ramachandran M.D., M.P.H. [address] [phone] (Wo rk) documented as of this encounter Visit Diagnoses Not on filedocumented in this encounter
--- OUTSIDE RECORDS SUMMARY | 2022-10-01 11:07 | XMS_ITS | Encounter Summary ---
:1960 Author Organization [facility] Address [address] [place] [address] Care Team Providers Name Role Phone Unavailable Primary Care Provider Unavailable Encounter Details Date Type Department Care Team Description 08/10/2005 Hospital Encounter HX [facility] Shannon Buitrago M.D. [address] [place] [phone] (Wo rk) Social History Tobacco Use Types Packs/Day Years Used Date Smoking Tobacco: Never Assessed Sex Assigned at Date Recorded Female 07/10/2022 7:32 AM CDT documented as of this encounter Miscellaneous Notes Telephone Encounter - Conversion, Historical Provider Ser - 08/10/2005 12:00 AM CDT [id number] Diabetes Labs: No results found for this basename: A1C:1 LDL 96 11/16/2002 TSH 1.11 11/07/2004 patient called was out of meds was to be refilled with her bp meds and was missed called in one month to [facility] patient was told last tsh was 2003 and she was coming due for one would let her know on refills Thanks Source: [facility] Document Id: [id number] documented in this encounter Plan of Treatment Upcoming Encounters Date Type Specialty Care Team Description 10/10/2022 Office Visit Neurology Karin Ramachandran M.D., M.P.H. [address] [place], [place] [phone] (Wo rk) documented as of this encounter Visit Diagnoses Not on filedocumented in this encounter
--- OUTSIDE RECORDS SUMMARY | 2022-10-01 11:07 | XMS_ITS | Encounter Summary ---
:1960 Author Organization [facility] Address [address] [place] [address] Care Team Providers Name Role Phone Unavailable Primary Care Provider Unavailable Encounter Details Date Type Department Care Team Description 11/06/2006 Hospital Encounter HX [facility] Provider, [facility] Social History Tobacco Use Types Packs/Day Years Used Date Smoking Tobacco: Never Assessed Sex Assigned at Date Recorded Female 07/10/2022 7:32 AM CDT documented as of this encounter Progress Notes Conversion, Historical Provider Ser - 11/06/2006 1:30 PM CST [id number] HISTORY & PHYSICAL CC: Chief Complaint Patient [...] if any concerns. Case Hauser M.D. Source: [facility] Document Id: [id number] documented in this encounter Plan of Treatment Upcoming Encounters Date Type Specialty Care Team Description 10/10/2022 Office Visit Neurology Karin Ramachandran M.D., M.P.H. [address] [place], [place] [phone] (Wo rk) documented as of this encounter Visit Diagnoses Not on filedocumented in this encounter
--- OUTSIDE RECORDS SUMMARY | 2022-10-01 11:07 | XMS_ITS | Encounter Summary ---
:1960 Author Organization [facility] Address [address] [place] [address] Care Team Providers Name Role Phone Unavailable Primary Care Provider Unavailable Encounter Details Date Type Department Care Team Description 03/13/[address] [facility] Shannon Buitrago M.D. [address] [place] [address] (Wo rk) Social History Tobacco Use Types Packs/Day Years Used Date Smoking Tobacco: Never Assessed Sex Assigned at Date Recorded Female 07/10/2022 7:32 AM CDT documented as of this encounter Miscellaneous Notes Telephone Encounter - Conversion, Historical Provider Ser - 03/13/2006 12:00 AM CDT [id number] Pt called, she was wondering if you could write letter explaining the bone density results. She was given results during her last appt but wasn't quite sure if she has osteoporsis or if she is taking medication to prevent it. Thanks Source: [facility] Document Id: [id number] documented in this encounter Plan of Treatment Upcoming Encounters Date Type Specialty Care Team Description 10/10/2022 Office Visit Neurology Karin Ramachandran M.D., M.P.H. [address] [place], [place] [phone] (Wo rk) documented as of this encounter Visit Diagnoses Not on filedocumented in this encounter
--- OUTSIDE RECORDS SUMMARY | 2022-10-01 11:07 | XMS_ITS | Encounter Summary ---
:1960 Author Organization [facility] Address [address] [place] [address] Care Team Providers Name Role Phone Unavailable Primary Care Provider Unavailable Encounter Details Date Type Department Care Team Description 03/27/2006 Hospital Encounter HX [facility] Shannon uBitrago M.D. [address] [facility] [place] [address] (Wo rk) Social History Tobacco Use Types Packs/Day Years Used Date Smoking Tobacco: Never Assessed Sex Assigned at Date Recorded Female 07/10/2022 7:32 AM CDT documented as of this encounter Miscellaneous Notes Telephone Encounter - Conversion, Historical Provider Ser - 03/27/2006 12:00 AM CDT [id number] patient called wondering about getting her period. Hasn't had one for over two years and labs state shes in menopause. Got period. Was wondering if this was normal. Gave her the number for [place] andasked her to call and talk to distribution designer. Source: [facility] Document Id: [id number] documented in this encounter Plan of Treatment Upcoming Encounters Date Type Specialty Care Team Description 10/10/2022 Office Visit Neurology Karin Ramachandran M.D., M.P.H. [address] [place], [place] [phone] (Wo rk) documented as of this encounter Visit Diagnoses Not on filedocumented in this encounter
--- OUTSIDE RECORDS SUMMARY | 2022-10-01 11:07 | XMS_ITS | Encounter Summary ---
:1960 Author Organization [facility] Address [address] [place] [address] Care Team Providers Name Role Phone Unavailable Primary Care Provider Unavailable Encounter Details Date Type Department Care Team Description 01/25/2006 Hospital Encounter HX [facility] XRAY Provider, Histori darlin Social History Tobacco Use Types Packs/Day Years Used Date Smoking Tobacco: Never Assessed Sex Assigned at Date Recorded Female 07/10/2022 7:32 AM CDT documented as of this encounter Miscellaneous Notes Miscellaneous - Shannon Barrett M.D. - 01/25/2006 9:45 AM CST [id number] Zandra Lopez [id number] [id number] February 04, 2006 Dear Zandra Lopez, IMAGING RESULTS: The results of your recent bone density/DEXA Scan were ABNORMAL -indicating thinning of the bones.I recommend that you consider Medications to prevent further loss of bone. If you have any further questions or problems, please contact our office. Sincerely, Shannon Barrett M.D. INTERNAL MEDICINE Source: [facility] Document Id: [id number] Electronically signed by Conversion, [facility] Clip On Sunglasses Assembler [id number] at 04/29/2017 6:39 PM CDT documented in this encounter Plan of Treatment Upcoming Encounters Date Type Specialty Care Team Description 10/10/2022 Office Visit Neurology Karin Ramachandran M.D., M.P.H. [address] [place], [place] [phone] (Wo rk) documented as of this encounter Visit Diagnoses Not on filedocumented in this encounter
--- OUTSIDE RECORDS SUMMARY | 2022-10-01 11:07 | XMS_ITS | Encounter Summary ---
:1960 Author Organization [facility] Address [address] [place] [address] Care Team Providers Name Role Phone Unavailable Primary Care Provider Unavailable Encounter Details Date Type Department Care Team Description 02/20/2007 Hospital Encounter HX [facility] ORTHO Provider, Histor ical Social History Tobacco Use Types Packs/Day Years Used Date Smoking Tobacco: Never Assessed Sex Assigned at Date Recorded Female 07/10/2022 7:32 AM CDT documented as of this encounter Plan of Treatment Upcoming Encounters Date Type Specialty Care Team Description 10/10/2022 Office Visit Neurology Karin Ramachandran M.D., M.P.H. [address], [place] [phone] (Wo rk) documented as of this encounter Visit Diagnoses Not on filedocumented in this encounter
--- OUTSIDE RECORDS SUMMARY | 2022-10-01 11:07 | XMS_ITS | Encounter Summary ---
:1960 Author Organization [facility] Address [address] [place] [address] Care Team Providers Name Role Phone Unavailable Primary Care Provider Unavailable Encounter Details Date Type Department Care Team Description 01/25/2006 Hospital Encounter HX NO MAP[facility] Shannon Barrett M.D. [address] [place] [phone] (Wo rk) Social History Tobacco Use Types Packs/Day Years Used Date Smoking Tobacco: Never Assessed Sex Assigned at Date Recorded Female 07/10/2022 7:32 AM CDT documented as of this encounter Plan of Treatment Upcoming Encounters Date Type Specialty Care Team Description 10/10/2022 Office Visit Neurology Karin Ramachandran M.D., M.P.H. [address] [phone] (Wo rk) documented as of this encounter Visit Diagnoses Not on filedocumented in this encounter
--- OUTSIDE RECORDS SUMMARY | 2022-10-01 11:07 | XMS_ITS | Encounter Summary ---
:1960 Author Organization [facility] Address [address] [place] [address] Care Team Providers Name Role Phone Unavailable Primary Care Provider Unavailable Encounter Details Date Type Department Care Team Description 02/06/2007 Hospital Encounter HX NO MAPPING Jarrod Persaud M.D. [address] [place], [place] [address] Social History Tobacco Use Types Packs/Day Years Used Date Smoking Tobacco: Never Assessed Sex Assigned at Date Recorded Female 07/10/2022 7:32 AM CDT documented as of this encounter Plan of Treatment Upcoming Encounters Date Type Specialty Care Team Description 10/10/2022 Office Visit Neurology Karin Ramachandran M.D., M.P.H. [address] [place], [place] [phone] (Wo rk) documented as of this encounter Visit Diagnoses Not on filedocumented in this encounter
--- OUTSIDE RECORDS SUMMARY | 2022-10-01 11:07 | XMS_ITS | Encounter Summary ---
:[address] [facility] Address [address] [place] [address] Care Team Providers Name Role Phone Unavailable Primary Care Provider Unavailable Encounter Details Date Type Department Care Team Description 08/06/2005 Hospital Encounter HX [facility] Shannon Buitrago M.D. [address] [place] [address] (Wo rk) Social History Tobacco Use Types Packs/Day Years Used Date Smoking Tobacco: Never Assessed Sex Assigned at Date Recorded Female 07/10/2022 7:32 AM CDT documented as of this encounter Miscellaneous Notes Telephone Encounter - Conversion, Historical Provider Ser - 08/06/2005 12:00 AM CDT [id number] last visit 11/07/04 Last 1 BP Readings: Date: BP: 11/07/2004 132/84 CAD/HTN and or CHF labs: CR 0.64 11/07/2004 POTASSIUM 4.4 11/07/2004 TSH 1.11 11/07/2004 Source: [facility] Document Id: [id number] documented in this encounter Plan of Treatment Upcoming Encounters Date Type Specialty Care Team Description 10/10/2022 Office Visit Neurology Karin Ramachandran M.D., M.P.H. [address] [place], [place] [phone] (Wo rk) documented as of this encounter Visit Diagnoses Not on filedocumented in this encounter
--- OUTSIDE RECORDS SUMMARY | 2022-10-01 11:07 | XMS_ITS | Encounter Summary ---
:1960 Author Organization [facility] Address [address] [place] [address] Care Team Providers Name Role Phone Unavailable Primary Care Provider Unavailable Encounter Details Date Type Department Care Team Description 12/23/2006 Hospital Encounter HX [facility] Shannon Buitrago M.D. [address] [place] [phone] (Wo rk) Social History Tobacco Use Types Packs/Day Years Used Date Smoking Tobacco: Never Assessed Sex Assigned at Date Recorded Female 07/10/2022 7:32 AM CDT documented as of this encounter Miscellaneous Notes Telephone Encounter - Conversion, Historical Provider Ser - 12/23/2006 12:00 AM CST [id number] Chould you do this in pcp's absence Source: [facility] Document Id: [id number] Telephone Encounter - Conversion, Historical Provider Ser - 12/23/2006 12:00 AM CST [id number] Accepting this rx will be faxed directly [...] LDL 96 11/16/2002 HDL 87 11/16/2002 Source: [facility] RWHXTRANSXRTFSYS Document Id: [id number] documented in this encounter Plan of Treatment Upcoming Encounters Date Type Specialty Care Team Description 10/10/2022 Office Visit Neurology Karin Ramachandran M.D., M.P.H. [address] [phone] (Wo rk) documented as of this encounter Visit Diagnoses Not on filedocumented in this encounter
--- OUTSIDE RECORDS SUMMARY | 2022-10-01 11:07 | XMS_ITS | Encounter Summary ---
:1960 Author Organization [facility] Address [address] [place] [address] Care Team Providers Name Role Phone Unavailable Primary Care Provider Unavailable Encounter Details Date Type Department Care Team Description 02/18/2007 Hospital Encounter HX [facility] ORTHO Carrillo Persaud M.D. [address] [place], [place] [address] Social History Tobacco Use Types Packs/Day Years Used Date Smoking Tobacco: Never Assessed Sex Assigned at Date Recorded Female 07/10/2022 7:32 AM CDT documented as of this encounter Progress Notes Carrillo Persaud M.D. - 02/18/2007 3:15 PM CDT [id number] CLINIC ENCOUNTER Zandra was here to review [...] from here. Return to clinic as needed. Carrillo Persaud M.D. JARVIS/[facility] cc: Source: [facility] Document Id: [id number] documented in this encounter Plan of Treatment Upcoming Encounters Date Type Specialty Care Team Description 10/10/2022 Office Visit Neurology Karin Ramachandran M.D., M.P.H. [address] [phone] (Wo rk) documented as of this encounter Visit Diagnoses Not on filedocumented in this encounter
--- OUTSIDE RECORDS SUMMARY | 2022-10-01 11:07 | XMS_ITS | Encounter Summary ---
:1960 Author Organization [facility] Address [address] [place] [address] Care Team Providers Name Role Phone Unavailable Primary Care Provider Unavailable Encounter Details Date Type Department Care Team Description 11/26/2005 Hospital Encounter HX [facility] Provider, Historic al Social History Tobacco Use Types Packs/Day Years Used Date Smoking Tobacco: Never Assessed Sex Assigned at Date Recorded Female 07/10/2022 7:32 AM CDT documented as of this encounter Miscellaneous Notes Miscellaneous - Shannon Vergara M.D. - 11/26/2005 10:00 AM CST [id number] Addended by: SHANNON VERGARA on: 11/26/2005 4:09:09 PM Modules accepted: Orders Source: [facility] Document Id: [id number] Electronically signed by Gabriela [facility] Car Sales Representative [id number] at 04/29/2017 6:18 PM CDT documented in this encounter Plan of Treatment Upcoming Encounters Date Type Specialty Care Team Description 10/10/2022 Office Visit Neurology Karin Ramachandran M.D., M.P.H. [address] [place], [place] [phone] (Wo rk) documented as of this encounter Visit Diagnoses Not on filedocumented in this encounter
--- OUTSIDE RECORDS SUMMARY | 2022-10-01 11:07 | XMS_ITS | Encounter Summary ---
:[address] [facility] Address [address] [place] [address] Care Team Providers Name Role Phone Unavailable Primary Care Provider Unavailable Encounter Details Date Type Department Care Team Description 01/25/2006 Hospital Encounter HX [facility] XRAY Provider, Histori darlin Social History Tobacco Use Types Packs/Day Years Used Date Smoking Tobacco: Never Assessed Sex Assigned at Date Recorded Female 07/10/2022 7:32 AM CDT documented as of this encounter Plan of Treatment Upcoming Encounters Date Type Specialty Care Team Description 10/10/2022 Office Visit Neurology Karin Ramachandran M.D., M.P.H. [address], [place] [phone] (Wo rk) documented as of this encounter Visit Diagnoses Not on filedocumented in this encounter
--- OUTSIDE RECORDS SUMMARY | 2022-10-01 11:07 | XMS_ITS | Encounter Summary ---
:1960 Author Organization [facility] Address [address] [place] [address] Care Team Providers Name Role Phone Unavailable Primary Care Provider Unavailable Encounter Details Date Type Department Care Team Description 01/18/2006 Hospital Encounter [facility] Shannon Barrett M.D. [address] [place] [phone] (Wo rk) Social History Tobacco Use Types Packs/Day Years Used Date Smoking Tobacco: Never Assessed Sex Assigned at Date Recorded Female 07/10/2022 7:32 AM CDT documented as of this encounter Progress Notes Shannon Barrett M.D. 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 Patient expresses understanding. Source: [facility] RWHXTRANSXRTFSYS Document Id: [id number] Electronically signed by Gabriela [facility] First Grade Teacher [id number] at 04/29/2017 2:33 PM CDT documented in this encounter Plan of Treatment Upcoming Encounters Date Type Specialty Care Team Description 10/10/2022 Office Visit Neurology Karin Ramachandran M.D., M.P.H. [address] [phone] (Wo rk) documented as of this encounter Visit Diagnoses Not on filedocumented in this encounter
--- OUTSIDE RECORDS SUMMARY | 2022-10-01 11:07 | XMS_ITS | Encounter Summary ---
:1960 Author Organization [facility] Address [address] [place] [address] Care Team Providers Name Role Phone Unavailable Primary Care Provider Unavailable Encounter Details Date Type Department Care Team Description 01/03/2007 Hospital Encounter [facility] XRAY Provider, Histori darlin Social History Tobacco Use Types Packs/Day Years Used Date Smoking Tobacco: Never Assessed Sex Assigned at Date Recorded Female 07/10/2022 7:32 AM CDT documented as of this encounter Plan of Treatment Upcoming Encounters Date Type Specialty Care Team Description 10/10/2022 Office Visit Neurology Karin Ramachandran M.D., M.P.H. [address], [place] [phone] (Wo rk) documented as of this encounter Visit Diagnoses Not on filedocumented in this encounter
--- OUTSIDE RECORDS SUMMARY | 2022-10-01 11:07 | XMS_ITS | Encounter Summary ---
:1960 Author Organization [facility] Address [address] [place] [address] Care Team Providers Name Role Phone Unavailable Primary Care Provider Unavailable Encounter Details Date Type Department Care Team Description 02/05/2006 Hospital Encounter [facility] Shannon Barrett M.D. [address] [place] [address] (Wo rk) Social History Tobacco Use Types Packs/Day Years Used Date Smoking Tobacco: Never Assessed Sex Assigned at Date Recorded Female 07/10/2022 7:32 AM CDT documented as of this encounter Progress Notes Shannon Barrett M.D. - 02/05/2006 11:30 AM CST [id number] SUBJECTIVE: Patient here for a physical. 1)Currently concerned about L hip pain x several months. Denies trauma to hip. Pain worse when getting up in the am--describes it as a stiffness. No numbness or tingling in leg. 2)C/O burning sensation in throatx 2months. Has used OTC Zantac 75 mg po daily with no relief [id number]. Burning not worse with eating, drinking or [...] hip. No H/O back pain or discomfort. SENIOR ACCOUNTS PAYABLE SPECIALIST: No headaches. No dizziness, seizures, tremors, numbness, [...] external hemmorhoid between 3 and 6 oclock. SENIOR ACCOUNTS PAYABLE SPECIALIST: Alert and oriented x3. Cranial nerves intact. [...] her labs to check her galactorrhea. Source: [facility] RWHXTRANSXRTFSYS Document Id: [id number] documented in this encounter Plan of Treatment Upcoming Encounters Date Type Specialty Care Team Description 10/10/2022 Office Visit Neurology Karin Ramachandran M.D., M.P.H. [address] [phone] (Wo rk) documented as of this encounter Visit Diagnoses Not on filedocumented in this encounter
--- OUTSIDE RECORDS SUMMARY | 2022-10-01 11:07 | XMS_ITS | Encounter Summary ---
:1960 Author Organization [facility] Address [address] [place] [address] Care Team Providers Name Role Phone Unavailable Primary Care Provider Unavailable Encounter Details Date Type Department Care Team Description 09/10/2006 Hospital Encounter [facility] Shannon Buitrago M.D. [address] [place] [address] (Wo rk) Social History Tobacco Use Types Packs/Day Years Used Date Smoking Tobacco: Never Assessed Sex Assigned at Date Recorded Female 07/10/2022 7:32 AM CDT documented as of this encounter Miscellaneous Notes Telephone Encounter - Conversion, Historical Provider Ser - 09/10/2006 12:00 AM CDT [id number] Last visit with pcp 01/28 Last 1 BP Readings: Date: BP: 02/05/2006 120/80 Source: [facility] Document Id: [id number] documented in this encounter Plan of Treatment Upcoming Encounters Date Type Specialty Care Team Description 10/10/2022 Office Visit Neurology Karin Ramachandran M.D., M.P.H. [address] [place], [place] [phone] (Wo rk) documented as of this encounter Visit Diagnoses Not on filedocumented in this encounter
--- OUTSIDE RECORDS SUMMARY | 2022-10-01 11:07 | XMS_ITS | Encounter Summary ---
:1960 Author Organization [facility] Address [address] [place] [address] Care Team Providers Name Role Phone Unavailable Primary Care Provider Unavailable Encounter Details Date Type Department Care Team Description 09/07/2005 Hospital Encounter [facility] Provider, Historic al Social History Tobacco Use Types Packs/Day Years Used Date Smoking Tobacco: Never Assessed Sex Assigned at Date Recorded Female 07/10/2022 7:32 AM CDT documented as of this encounter Plan of Treatment Upcoming Encounters Date Type Specialty Care Team Description 10/10/2022 Office Visit Neurology Karin Ramachandran M.D., M.P.H. [address], [place] [phone] (Wo rk) documented as of this encounter Visit Diagnoses Not on filedocumented in this encounter
--- OUTSIDE RECORDS SUMMARY | 2022-10-01 11:07 | XMS_ITS | Encounter Summary ---
:1960 Author Organization [facility] Address [address] [place] [address] Care Team Providers Name Role Phone Unavailable Primary Care Provider Unavailable Encounter Details Date Type Department Care Team Description 02/06/[address] [facility] XRAY Provider, Histori darlin Social History Tobacco Use Types Packs/Day Years Used Date Smoking Tobacco: Never Assessed Sex Assigned at Date Recorded Female 07/10/2022 7:32 AM CDT documented as of this encounter Plan of Treatment Upcoming Encounters Date Type Specialty Care Team Description 10/10/2022 Office Visit Neurology Karin Ramachandran M.D., M.P.H. [address], [place] [phone] (Wo rk) documented as of this encounter Visit Diagnoses Not on filedocumented in this encounter
--- OUTSIDE RECORDS SUMMARY | 2022-10-01 11:07 | XMS_ITS | Encounter Summary ---
:1960 Author Organization [facility] Address [address] [place] [address] Care Team Providers Name Role Phone Unavailable Primary Care Provider Unavailable Encounter Details Date Type Department Care Team Description 02/04/[address] [facility] Carrillo Persaud M.D. [address] [place], [place] [address] Social History Tobacco Use Types Packs/Day Years Used Date Smoking Tobacco: Never Assessed Sex Assigned at Date Recorded Female 07/10/2022 7:32 AM CDT documented as of this encounter Progress Notes Carrillo Persaud M.D. - 02/04/2007 2:00 PM CDT [id number] CLINIC ENCOUNTER SUBJECTIVE: Zandra took a hard [...] or perhaps surgical intervention. Carrillo Persaud M.D. JARVIS/[facility] cc: Source: [facility] Document Id: [id number] Electronically signed by Gabriela [facility] Franchise Specialist [id number] at 04/29/2017 1:21 PM CDT documented in this encounter Plan of Treatment Upcoming Encounters Date Type Specialty Care Team Description 10/10/2022 Office Visit Neurology Karin Ramachandran M.D., M.P.H. [address] [phone] (Wo rk) documented as of this encounter Visit Diagnoses Not on filedocumented in this encounter
--- OUTSIDE RECORDS SUMMARY | 2022-10-01 11:07 | XMS_ITS | Encounter Summary ---
:1960 Author Organization [facility] Address [address] [place] [address] Care Team Providers Name Role Phone Unavailable Primary Care Provider Unavailable Encounter Details Date Type Department Care Team Description 04/09/2006 Hospital Encounter HX [facility] Shannon Buitrago M.D. [address] [place] [address] (Wo rk) Social History Tobacco Use Types Packs/Day Years Used Date Smoking Tobacco: Never Assessed Sex Assigned at Date Recorded Female 07/10/2022 7:32 AM CDT documented as of this encounter Miscellaneous Notes Telephone Encounter - Joseph Kendrick, LEvansPEvansN. - 04/09/2006 12:00 AM CDT [id number] Pt. Calling and wanting rx for the new quit smoking drug she does not know the name, but would like it faxed to [facility] in [place], if any questions plz call [phone] Source: [facility] BILOXIHXTRANSXRTFSYS Document Id: [id number] documented in this encounter Plan of Treatment Upcoming Encounters Date Type Specialty Care Team Description 10/10/2022 Office Visit Neurology Karin Ramachandran M.D., M.P.H. [address] [place], [place] [phone] (Wo rk) documented as of this encounter Visit Diagnoses Not on filedocumented in this encounter
--- OUTSIDE RECORDS SUMMARY | 2022-10-01 11:07 | XMS_ITS | Encounter Summary ---
:1960 Author Organization [facility] Address [address] [place] [address] Care Team Providers Name Role Phone Unavailable Primary Care Provider Unavailable Encounter Details Date Type Department Care Team Description 09/07/2005 Hospital Encounter [facility]X [facility] Shannon Buitrago M.D. [address] [place] [phone] (Wo rk) Social History Tobacco Use Types Packs/Day Years Used Date Smoking Tobacco: Never Assessed Sex Assigned at Date Recorded Female 07/10/2022 7:32 AM CDT documented as of this encounter Miscellaneous Notes Miscellaneous - Conversion, Historical Provider Ser - 09/07/2005 12:00 AM CDT [id number] Zandra Lopez [address] [place] [address] MR# [id number] November 15, 2005 Dear Ms. Lopez, After [...] can be addressed. Our phone numbers are [phone] or . Sincerely, Kaelyn Nieto RN - Cloud Services Architect [facility] Source: [facility] Document Id: [id number] Telephone Encounter - Conversion, Historical Provider Ser - 09/07/2005 12:00 AM CDT [id number] patient needs refill on her thyroid meds please place order for tsh was drawn today Diabetes Labs: No results found for this basename: A1C:1 LDL 96 11/16/2002 TSH 1.11 11/07/2004 Source: [facility] Document Id: [id number] documented in this encounter Plan of Treatment Upcoming Encounters Date Type Specialty Care Team Description 10/10/2022 Office Visit Neurology Karin Ramachandran M.D., M.P.H. [address] [phone] (Wo rk) documented as of this encounter Visit Diagnoses Not on filedocumented in this encounter
--- OUTSIDE RECORDS SUMMARY | 2022-10-01 11:07 | XMS_ITS | Encounter Summary ---
:1960 Author Organization [facility] Address [address] [place] [address] Care Team Providers Name Role Phone Unavailable Primary Care Provider Unavailable Encounter Details Date Type Department Care Team Description 01/16/2007 Hospital Encounter [facility] Shannon Barrett M.D. [address] [place] [phone] (Wo rk) Social History Tobacco Use Types Packs/Day Years Used Date Smoking Tobacco: Never Assessed Sex Assigned at Date Recorded Female 07/10/2022 7:32 AM CDT documented as of this encounter Progress Notes Shannon Barrett M.D. 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 Psych: Patient appears stated age. Is [...] by herself. Patient expresses an understanding. Source: [facility] Document Id: [id number] documented in this encounter Plan of Treatment Upcoming Encounters Date Type Specialty Care Team Description 10/10/2022 Office Visit Neurology Karin Ramachandran M.D., M.P.H. [address] [phone] (Wo rk) documented as of this encounter Visit Diagnoses Not on filedocumented in this encounter
--- OUTSIDE RECORDS SUMMARY | 2022-10-01 11:08 | XMS_ITS | Encounter Summary ---
:1960 Author Organization [facility] Address [address] [place] [address] Care Team Providers Name Role Phone Unavailable Primary Care Provider Unavailable Encounter Details Date Type Department Care Team Description 02/06/2004 Hospital Encounter HX [facility] Shannon Buitrago M.D. [address] [place] [address] (Wo rk) Social History Tobacco Use Types Packs/Day Years Used Date Smoking Tobacco: Never Assessed Sex Assigned at Date Recorded Female 07/10/2022 7:32 AM CDT documented as of this encounter Miscellaneous Notes Telephone Encounter - Conversion, Historical Provider Ser - 02/06/2004 12:00 AM CST [id number] >> SHANNON Willett Feb 06, 2004 2:58 PM >> CALL RECEIVED. Contact: Source: [facility] Document Id: [id number] documented in this encounter Plan of Treatment Upcoming Encounters Date Type Specialty Care Team Description 10/10/2022 Office Visit Neurology Karin Ramachandran M.D., M.P.H. [address] [place], [place] [phone] (Wo rk) documented as of this encounter Visit Diagnoses Not on filedocumented in this encounter
--- OUTSIDE RECORDS SUMMARY | 2022-10-01 11:08 | XMS_ITS | Encounter Summary ---
:1960 Author Organization [facility] Address [address] [place] [address] Care Team Providers Name Role Phone Unavailable Primary Care Provider Unavailable Encounter Details Date Type Department Care Team Description 04/14/[address] [facility] Provider, Historic al Social History Tobacco Use Types Packs/Day Years Used Date Smoking Tobacco: Never Assessed Sex Assigned at Date Recorded Female 07/10/2022 7:32 AM CDT documented as of this encounter Plan of Treatment Upcoming Encounters Date Type Specialty Care Team Description 10/10/2022 Office Visit Neurology Karin Ramachandran M.D., M.P.H. [address], [place] [phone] (Wo rk) documented as of this encounter Visit Diagnoses Not on filedocumented in this encounter
--- OUTSIDE RECORDS SUMMARY | 2022-10-01 11:08 | XMS_ITS | Encounter Summary ---
:[address] [facility] Address [address] [place] [address] Care Team Providers Name Role Phone Unavailable Primary Care Provider Unavailable Encounter Details Date Type Department Care Team Description 12/25/2002 Hospital Encounter HX [facility] UROLOGY Provider, Farideh orical Social History Tobacco Use Types Packs/Day Years Used Date Smoking Tobacco: Never Assessed Sex Assigned at Date Recorded Female 07/10/2022 7:32 AM CDT documented as of this encounter Miscellaneous Notes Telephone Encounter - Conversion, Historical Provider Ser - 12/25/2002 12:00 AM CST [id number] Addended by: PASCUAL DOWNEY on: 12/25/2002,3:09 PMModules accepted: Progress Notes>>PASCUAL SMITH Fri Dec 25, 2002 10:00 AM>> CALL RECEIVED. Contact: She was given a perscription for percocet #40, 1po q 3 hours, prn, by Dr. Persaud. Source: [facility] Document Id: [id number] documented in this encounter Plan of Treatment Upcoming Encounters Date Type Specialty Care Team Description 10/10/2022 Office Visit Neurology Karin Ramachandran M.D., M.P.H. [address] [place], [place] [phone] (Wo rk) documented as of this encounter Visit Diagnoses Not on filedocumented in this encounter
--- OUTSIDE RECORDS SUMMARY | 2022-10-01 11:08 | XMS_ITS | Encounter Summary ---
:1960 Author Organization [facility] Address [address] [place] [address] Care Team Providers Name Role Phone Unavailable Primary Care Provider Unavailable Encounter Details Date Type Department Care Team Description 05/27/2003 Hospital [facility] Stephanie Scott Jr., D.O. [address] [place], [place] [address] (Wo rk) Social History Tobacco Use Types Packs/Day Years Used Date Smoking Tobacco: Never Assessed Sex Assigned at Date Recorded Female 07/10/2022 7:32 AM CDT documented as of this encounter Progress Notes Conversion, Historical Provider Ser - 05/27/2003 8:30 AM CDT [id number] Addended by: BRUNA NELSON on: 05/31/2003,4:05 PM Comment: Senior Lead Developer.Modules accepted: Surya esqueda NotesThe patient is here [...] patient is being referred to Dermatology at [facility] or definitive wound care. She was [...] Benji Scott Jr., D.O./Debi: 05/27/2003T: 05/31/2003 Source: [facility] RWHXTRANSXSYS Document Id: [id number] documented in this encounter Plan of Treatment Upcoming Encounters Date Type Specialty Care Team Description 10/10/2022 Office Visit Neurology Karin Ramachandran M.D., M.P.H. [address] [place] [phone] (Wo rk) documented as of this encounter Visit Diagnoses Not on filedocumented in this encounter
--- OUTSIDE RECORDS SUMMARY | 2022-10-01 11:08 | XMS_ITS | Encounter Summary ---
:1960 Author Organization [facility] Address [address] [place] [address] Care Team Providers Name Role Phone Unavailable Primary Care Provider Unavailable Encounter Details Date Type Department Care Team Description 05/31/2003 Hospital Encounter [facility] Elvie Franklin M.D. [address] [facility] [place] [address] (Wo rk) Social History Tobacco Use Types Packs/Day Years Used Date Smoking Tobacco: Never Assessed Sex Assigned at Date Recorded Female 07/10/2022 7:32 AM CDT documented as of this encounter Progress Notes Conversion, Historical Provider Ser - 05/31/2003 11:45 AM CDT [id number] Addended by: ODALIS GARCIA on: 06/07/2003,11:01 AM [...] was unremarkable. The MR Angiogram of the [place] [facility] [place] revealed no aneurysms. There were [...] for review.CC: Dr. Persaud for review. Source: [facility] Document Id: [id number] documented in this encounter Plan of Treatment Upcoming Encounters Date Type Specialty Care Team Description 10/10/2022 Office Visit Neurology Karin Ramachandran M.D., M.P.H. [address] [phone] (Wo rk) documented as of this encounter Visit Diagnoses Not on filedocumented in this encounter
--- OUTSIDE RECORDS SUMMARY | 2022-10-01 11:08 | XMS_ITS | Encounter Summary ---
:[address] [facility] Address [address] [place] [address] Care Team Providers Name Role Phone Unavailable Primary Care Provider Unavailable Encounter Details Date Type Department Care Team Description 02/04/2004 Hospital Encounter HX [facility] Shannon Buitrago M.D. [address] [place] [address] (Wo rk) Social History Tobacco Use Types Packs/Day Years Used Date Smoking Tobacco: Never Assessed Sex Assigned at Date Recorded Female 07/10/2022 7:32 AM CDT documented as of this encounter Progress Notes Conversion, Historical Provider Ser - 02/04/2004 1:30 PM CST [id number] Addended by: KELLY BUTLER on: 02/08/2004,6:55 AMModules [...] refills. However, she says that for the mo st part she is doing well. She [...] depression.* Shannon Barrett M.D./garcia*D: 4T: 02/08/2004 Source: [facility] Document Id: [id number] documented in this encounter Plan of Treatment Upcoming Encounters Date Type Specialty Care Team Description 10/10/2022 Office Visit Neurology Karin Ramachandran M.D., M.P.H. [address] [place] [phone] (Wo rk) documented as of this encounter Visit Diagnoses Not on filedocumented in this encounter
--- OUTSIDE RECORDS SUMMARY | 2022-10-01 11:08 | XMS_ITS | Encounter Summary ---
:1960 Author Organization [facility] Address [address] [place] [address] Care Team Providers Name Role Phone Unavailable Primary Care Provider Unavailable Encounter Details Date Type Department Care Team Description 04/06/2003 Hospital Encounter HX [facility] Carrillo Charles M.D. [address] [place], [place] [address] Social History Tobacco Use Types Packs/Day Years Used Date Smoking Tobacco: Never Assessed Sex Assigned at Date Recorded Female 07/10/2022 7:32 AM CDT documented as of this encounter Progress Notes Conversion, Historical Provider Ser - 04/06/2003 12:00 AM CDT [id number] A user error has taken place: encounter opened in error, closed for administrative reasons. Source: [facility] Document Id: [id number] documented in this encounter Plan of Treatment Upcoming Encounters Date Type Specialty Care Team Description 10/10/2022 Office Visit Neurology Karin Ramachandran M.D., M.P.H. [address] [place], [place] [phone] (Wo rk) documented as of this encounter Visit Diagnoses Not on filedocumented in this encounter
--- OUTSIDE RECORDS SUMMARY | 2022-10-01 11:08 | XMS_ITS | Encounter Summary ---
:[address] [facility] Address [address] [place] [address] Care Team Providers Name Role Phone Unavailable Primary Care Provider Unavailable Encounter Details Date Type Department Care Team Description 05/05/2004 Hospital Encounter HX [facility] Provider, Pr laverne Social History Tobacco Use Types Packs/Day Years Used Date Smoking Tobacco: Never Assessed Sex Assigned at Date Recorded Female 07/10/2022 7:32 AM CDT documented as of this encounter Miscellaneous Notes Telephone Encounter - Conversion, Historical Provider Ser - 05/05/2004 12:00 AM CDT [id number] >> BARBARA Willett May 07, 2004 10:08 PM TSH 0.45 04/14/2004 >> ASPEN Benton May 05, 2004 1:08 PM >> CALL RECEIVED. Contact: Accepting this rx will be faxed directly to pharmacy. Thank You! Source: [facility] RWHXTRANSXSYS Document Id: [id number] documented in this encounter Plan of Treatment Upcoming Encounters Date Type Specialty Care Team Description 10/10/2022 Office Visit Neurology Karin Ramachandran M.D., M.P.H. [address] [place], [place] [phone] (Wo rk) documented as of this encounter Visit Diagnoses Not on filedocumented in this encounter
--- OUTSIDE RECORDS SUMMARY | 2022-10-01 11:08 | XMS_ITS | Encounter Summary ---
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 I will be leaving the [facility] December 17, 2003. The [facility] will continue to be staffed by Libra Starks DO and Shannon Barrett MD. In addition, we are fortunate to have JAGUAR Crowe on our staff. The [facility] continues to recruit another physician. Any questions you may have regarding refills, problems, etc., please call and speak to our well-trained nursing staff. It has been a pleasure being part of your health care. Sincerely, JAGUAR Gates Source: [facility] RWHXTRANSXRTFSYS Document Id: [id number] documented in this encounter Plan of Treatment Upcoming Encounters Date Type Specialty Care Team Description 10/10/2022 Office Visit Neurology Karin Ramachandran M.D., M.P.H. [address] [place], [place] [phone] (Wo rk) documented as of this encounter Visit Diagnoses Not on filedocumented in this encounter
--- OUTSIDE RECORDS SUMMARY | 2022-10-01 11:08 | XMS_ITS | Encounter Summary ---
:1960 Author Organization [facility] Address [address] [place] [address] Care Team Providers Name Role Phone Unavailable Primary Care Provider Unavailable Encounter Details Date Type Department Care Team Description 12/24/2003 Hospital [facility] Social History Tobacco Use Types Packs/Day Years Used Date Smoking Tobacco: Never Assessed Sex Assigned at Date Recorded Female 07/10/2022 7:32 AM CDT documented as of this encounter Miscellaneous Notes Miscellaneous - Conversion, Historical Provider Ser - 12/24/2003 12:00 AM HEALTH RECORDS TECHNOLOGY TEACHER [id number] Zandra oLpez [id number] [address] December 24, 2003 Dear Zandra Lopez APPOINTMENT [...] future. You may call our office at [phone] or to schedule a visit. Please disregard this notice if you have already made an appointment. Sincerely, Sera Ríos [facility] Source: [facility] Document Id: [id number] Telephone Encounter - Conversion, Historical Provider Ser - 12/24/2003 12:00 AM CST [id number] >> SERA RÍOS SatDec 24, 2003 3:11 PM >> CALL RECEIVED. Contact: pharmacy faxed refill order to be filled This is one of jadiel's pt. will send her a letter to come in and see somebody. Thanks Source: [facility] RWHXTRANSXSYS Document Id: [id number] documented in this encounter Plan of Treatment Upcoming Encounters Date Type Specialty Care Team Description 10/10/2022 Office Visit Neurology Karin Ramachandran M.D., M.P.H. [address] [place] [phone] (Wo rk) documented as of this encounter Visit Diagnoses Not on filedocumented in this encounter
--- OUTSIDE RECORDS SUMMARY | 2022-10-01 11:08 | XMS_ITS | Encounter Summary ---
:1960 Author Organization [facility] Address [address] [place] [address] Care Team Providers Name Role Phone Unavailable Primary Care Provider Unavailable Encounter Details Date Type Department Care Team Description 12/22/2002 Hospital Encounter HX [facility] Mike Herrera, R.NEvans [address] [place], [place] [address] (Wo rk) Social History Tobacco Use Types Packs/Day Years Used Date Smoking Tobacco: Never Assessed Sex Assigned at Date Recorded Female 07/10/2022 7:32 AM CDT documented as of this encounter Miscellaneous Notes Telephone Encounter - Conversion, Historical Provider Ser - 12/22/2002 12:00 AM CST [id number] >> JASMIN Mckenna Dec 22, 2002 4:20 PM I called, and will send to P.T. >> GHAZALA Mckenna Dec 22, 2002 2:53 PM phone number [phone] >> GHAZALA Mckenna Dec 22, 2002 2:28 PM >> CALL RECEIVED. Contact: pt/ leo pt would like you to call her with mri results. [phone] Source: [facility] Document Id: [id number] documented in this encounter Plan of Treatment Upcoming Encounters Date Type Specialty Care Team Description 10/10/2022 Office Visit Neurology Karin Ramachandran M.D., M.P.H. [address] [place], [place] [phone] (Wo rk) documented as of this encounter Visit Diagnoses Not on filedocumented in this encounter
--- OUTSIDE RECORDS SUMMARY | 2022-10-01 11:08 | XMS_ITS | Encounter Summary ---
:1960 Author Organization [facility] Address [address] [place] [address] Care Team Providers Name Role Phone Unavailable Primary Care Provider Unavailable Encounter Details Date Type Department Care Team Description 12/23/2002 Hospital Encounter [facility] Mike Herrera L, R.N. [address] [address] (Wo rk) Social History Tobacco Use Types Packs/Day Years Used Date Smoking Tobacco: Never Assessed Sex Assigned at Date Recorded Female 07/10/2022 7:32 AM CDT documented as of this encounter Miscellaneous Notes Telephone Encounter - Conversion, Historical Provider Ser - 12/23/2002 12:00 AM CST [id number] >> JASMIN TAFOYA [facility] Dec 24, 2002 9:58 AM I called her, and she may stop here tomorrow after her P.T. appt. RR >> CRUZ DICKERSON [facility] Dec 24, 2002 9:48 AM I did speak to Zandra, she is at [phone]/and would appreciate you calling her back this morning sometime. >> JASMIN TAFOYA [facility] Dec 24, 2002 8:33 AM I called, [...] restrict motion. would like you to call [phone]. pharmacy is [facility] in [place]. >> GHAZALA HOOD SatDec 23, 2002 2:47 PM >> CALL RECEIVED. Contact: pt/ leo pt has questions about pain meds. [phone] Source: [facility] Document Id: [id number] documented in this encounter Plan of Treatment Upcoming Encounters Date Type Specialty Care Team Description 10/10/2022 Office Visit Neurology Karin Ramachandran M.D., M.P.H. [address] [phone] (Wo rk) documented as of this encounter Visit Diagnoses Not on filedocumented in this encounter
--- OUTSIDE RECORDS SUMMARY | 2022-10-01 11:08 | XMS_ITS | Encounter Summary ---
:1960 Author Organization [facility] Address [address] [place] [address] Care Team Providers Name Role Phone Unavailable Primary Care Provider Unavailable Encounter Details Date Type Department Care Team Description 02/09/2003 Hospital Encounter [facility]X [facility] Carrillo Charles M.D. [address] [place], [place] [address] Social History Tobacco Use Types Packs/Day Years Used Date Smoking Tobacco: Never Assessed Sex Assigned at Date Recorded Female 07/10/2022 7:32 AM CDT documented as of this encounter Progress Notes Conversion, Historical Provider Ser - 02/09/2003 9:00 AM CST [id number] Addended by: ODALIS GARCIA on: 02/12/2003,3:59 PM [...] as indicated.Carrillo Persaud M.D./Rodrigo: 02/09/2003T: 02/12/2003 Source: [facility] RWHXTRANSXSYS Document Id: [id number] documented in this encounter Plan of Treatment Upcoming Encounters Date Type Specialty Care Team Description 10/10/2022 Office Visit Neurology Karin Ramachandran M.D., M.P.H. [address] [phone] (Wo rk) documented as of this encounter Visit Diagnoses Not on filedocumented in this encounter
--- OUTSIDE RECORDS SUMMARY | 2022-10-01 11:08 | XMS_ITS | Encounter Summary ---
:1960 Author Organization [facility] Address [address] [place] [address] Care Team Providers Name Role Phone Unavailable Primary Care Provider Unavailable Encounter Details Date Type Department Care Team Description 02/19/2003 Hospital Encounter HX [facility] Shannon Buitrago M.D. [address] [place] [address] (Wo rk) Social History Tobacco Use Types Packs/Day Years Used Date Smoking Tobacco: Never Assessed Sex Assigned at Date Recorded Female 07/10/2022 7:32 AM CDT documented as of this encounter Progress Notes Conversion, Historical Provider Ser - 02/19/2003 10:30 AM CST [id number] Date of preoperative exam: 02/19/2003 Date of [...] surgery.Carpel tunnel syndrome PLAN:Cleared for surgery: Nieves Singletary lassinai for general asaesthesia and surgery.A copy of evaluation has been forwarded to requesting pro Signature: Partha hi Milly Barrett [facility] Source: [facility] Document Id: [id number] documented in this encounter Plan of Treatment Upcoming Encounters Date Type Specialty Care Team Description 10/10/2022 Office Visit Neurology Karin Ramachandran M.D., M.P.H. [address] [phone] (Wo rk) documented as of this encounter Visit Diagnoses Not on filedocumented in this encounter
--- OUTSIDE RECORDS SUMMARY | 2022-10-01 11:08 | XMS_ITS | Encounter Summary ---
:1960 Author Organization [facility] Address [address] [place] [address] Care Team Providers Name Role Phone Unavailable Primary Care Provider Unavailable Encounter Details Date Type Department Care Team Description 05/21/2003 Hospital Encounter [facility] Provider, [facility] Social History Tobacco Use Types Packs/Day Years Used Date Smoking Tobacco: Never Assessed Sex Assigned at Date Recorded Female 07/10/2022 7:32 AM CDT documented as of this encounter Miscellaneous Notes Telephone Encounter - Conversion, Historical Provider Ser - 05/21/2003 12:00 AM CDT [id number] >> ADRIANE DELGADO SatMay 21, 2003 10:22 AM >> CALL RECEIVED. Contact: She called, saw the neurologist at [facility] yesterday, who felt that the scalp laceration is infected. [facility]: [facility] Document Id: [id number] documented in this encounter Plan of Treatment Upcoming Encounters Date Type Specialty Care Team Description 10/10/2022 Office Visit Neurology Karin Ramachandran M.D., M.P.H. [address], [place] [phone] (Wo rk) documented as of this encounter Visit Diagnoses Not on filedocumented in this encounter
--- OUTSIDE RECORDS SUMMARY | 2022-10-01 11:08 | XMS_ITS | Encounter Summary ---
:[address] [facility] Address [address] [place] [address] Care Team Providers Name Role Phone Unavailable Primary Care Provider Unavailable Encounter Details Date Type Department Care Team Description 11/07/2004 Hospital Encounter HX [facility] Shannon Buitrago M.D. [address] [place] [address] (Wo rk) Social History Tobacco Use Types Packs/Day Years Used Date Smoking Tobacco: Never Assessed Sex Assigned at Date Recorded Female 07/10/2022 7:32 AM CDT documented as of this encounter Progress Notes Conversion, Historical Provider Ser - 11/07/2004 1:30 PM CST [id number] Addended by: EMILE FOWLER on: 11/10/2004,11:36 AM [...] the near future. Patient expresses understanding. Source: [facility] Document Id: [id number] documented in this encounter Plan of Treatment Upcoming Encounters Date Type Specialty Care Team Description 10/10/2022 Office Visit Neurology Karin Ramachandran M.D., M.P.H. [address] [place] [phone] (Wo rk) documented as of this encounter Visit Diagnoses Not on filedocumented in this encounter
--- OUTSIDE RECORDS SUMMARY | 2022-10-01 11:08 | XMS_ITS | Encounter Summary ---
:1960 Author Organization [facility] Address [address] [place] [address] Care Team Providers Name Role Phone Unavailable Primary Care Provider Unavailable Encounter Details Date Type Department Care Team Description 03/09/2003 Hospital Encounter [facility] Carrillo Charles M.D. [address] [place], [place] [address] Social History Tobacco Use Types Packs/Day Years Used Date Smoking Tobacco: Never Assessed Sex Assigned at Date Recorded Female 07/10/2022 7:32 AM CDT documented as of this encounter Progress Notes Conversion, Historical Provider Ser - 03/09/2003 9:15 AM CDT [id number] Addended by: MARY JEAN on: 03/12/2003,1:30 PM Comment: Anesthesiology Physician Assistant.Modules accepted: Everardo rodriguez Notesdictation [place] is about [...] now. Jarrod Persaud M.D./rvD: 03/09/2003T: 03/12/2003 Source: [facility] RWHXTRANSXSYS Document Id: [id number] documented in this encounter Plan of Treatment Upcoming Encounters Date Type Specialty Care Team Description 10/10/2022 Office Visit Neurology Karin Ramachandran M.D., M.P.H. [address] [phone] (Wo rk) documented as of this encounter Visit Diagnoses Not on filedocumented in this encounter
--- OUTSIDE RECORDS SUMMARY | 2022-10-01 11:08 | XMS_ITS | Encounter Summary ---
:1960 Author Organization [facility] Address [address] [place] [address] Care Team Providers Name Role Phone Unavailable [...] Neurology Karin Ramachandran M.D., M.P.H. [address] [place], [place] [phone] (Wo rk) documented as of this encounter Visit Diagnoses Not on filedocumented in this encounter
--- OUTSIDE RECORDS SUMMARY | 2022-10-01 11:08 | XMS_ITS | Encounter Summary ---
:1960 Author Organization [facility] Address [address] [place] [address] Care Team Providers Name Role Phone Unavailable Primary Care Provider Unavailable Encounter Details Date Type Department Care Team Description 05/21/2003 Hospital Encounter HX NO MAPPING Mike Franklin M.D. [address] [facility] [place] [address] [address] (Wo rk) Social History Tobacco Use Types Packs/Day Years Used Date Smoking Tobacco: Never Assessed Sex Assigned at Date Recorded Female 07/10/2022 7:32 AM CDT documented as of this encounter Plan of Treatment Upcoming Encounters Date Type Specialty Care Team Description 10/10/2022 Office Visit Neurology Karin Ramachandran M.D., M.P.H. [address], [place] [phone] (Wo rk) documented as of this encounter Visit Diagnoses Not on filedocumented in this encounter
--- OUTSIDE RECORDS SUMMARY | 2022-10-01 11:08 | XMS_ITS | Encounter Summary ---
:1960 Author Organization [facility] Address [address] [place] [address] Care Team Providers Name Role Phone Unavailable Primary Care Provider Unavailable Encounter Details Date Type Department Care Team Description 01/19/2003 Hospital Encounter [facility] Carrillo Charles M.D. [address] [place], [place] [address] Social History Tobacco Use Types Packs/Day Years Used Date Smoking Tobacco: Never Assessed Sex Assigned at Date Recorded Female 07/10/2022 7:32 AM CDT documented as of this encounter Progress Notes Conversion, Historical Provider Ser - 01/19/2003 2:00 PM CST [id number] Addended by: CONY WADSWORTH on: 01/22/2003,12:11 PM Comment: TranscriptionModules accepted: Gita spain NotesUndrobynVladimir marie is about a month out from her [...] that now, what she is dealing w ith, is a cervical sprain and she's developed some signs and symptoms of a double crush phenomenon. I don't think that either condition is necessarily severe enough to recommend surgery so I've recom mended that she continue at this time with conservative care. She's got a home traction unit from [facility] and is doing appropriate cervical [...] progress. Carrillo Persaud M.D./Rain: 01/19/2003T: 01/22/2003 Source: [facility] RWHXTRANSXSYS Document Id: [id number] documented in this encounter Plan of Treatment Upcoming Encounters Date Type Specialty Care Team Description 10/10/2022 Office Visit Neurology Karin Ramachandran M.D., M.P.H. [address] [phone] ([facility]) documented as of this encounter Visit Diagnoses Not on filedocumented in this encounter
--- OUTSIDE RECORDS SUMMARY | 2022-10-01 11:08 | XMS_ITS | Encounter Summary ---
:1960 Author Organization [facility] Address [address] [place] [address] Care Team Providers Name Role Phone Unavailable Primary Care Provider Unavailable Encounter Details Date Type Department Care Team Description 01/01/2003 Hospital Encounter HX [facility] Provider, [facility] Social History Tobacco Use Types Packs/Day Years Used Date Smoking Tobacco: Never Assessed Sex Assigned at Date Recorded Female 07/10/2022 7:32 AM CDT documented as of this encounter Miscellaneous Notes Telephone Encounter - Conversion, Historical Provider Ser - 01/01/2003 12:00 AM CST [id number] >> ADRIANE Benton Jan 01, 2003 1:17 PM >> CALL RECEIVED. Contact: I called Christiane, [phone], left message that I had talked to Dr. Owen, re options for BC. Dr. Owen listed: micronor, tubal, IUD, (has 2 kinds of IUD available) and diaphragm. I asked that she call m e back on 01/04 Source: [facility] RWHXTRANSXSYS Document Id: [id number] documented in this encounter Plan of Treatment Upcoming Encounters Date Type Specialty Care Team Description 10/10/2022 Office Visit Neurology Karin Ramachandran M.D., M.P.H. [address], [place] [phone] (Wo rk) documented as of this encounter Visit Diagnoses Not on filedocumented in this encounter
--- OUTSIDE RECORDS SUMMARY | 2022-10-01 11:08 | XMS_ITS | Encounter Summary ---
:1960 Author Organization [facility] Address [address] [place] [address] Care Team Providers Name Role Phone Unavailable Primary Care Provider Unavailable Encounter Details Date Type Department Care Team Description 01/12/2003 Hospital Encounter [facility] Provider, [facility]ne Social History Tobacco Use Types Packs/Day Years Used Date Smoking Tobacco: Never Assessed Sex Assigned at Date Recorded Female 07/10/2022 7:32 AM CDT documented as of this encounter Progress Notes Conversion, Historical Provider Ser - 01/12/2003 8:00 AM CST [id number] Here to talk over contraception. Actually, she and I talked over options the other day, on the phone, and she decided to go with depo. She received a shot today. Lit provided.Also here for BP check. Wilber hernandez denies any side effects to the med. BP down nicely today, and her headaches are much improved. She will continue same dosage of adalat.Likes the paxil, and will continue.Takes xanax very infrequent ly. In fact, has not taken it along time.Talked over the social situation. She is going to move ba ck with husb., they are working at things. [...] yroidism, stable. Tobacco abuse. Contraception management. Source: [facility] Document Id: [id number] documented in this encounter Plan of Treatment Upcoming Encounters Date Type Specialty Care Team Description 10/10/2022 Office Visit Neurology Karin Ramachandran M.D., M.P.H. [address] [phone] (Wo rk) documented as of this encounter Visit Diagnoses Not on filedocumented in this encounter
--- OUTSIDE RECORDS SUMMARY | 2022-10-01 11:08 | XMS_ITS | Encounter Summary ---
:1960 Author Organization [facility] Address [address] [place] [address] Care Team Providers Name Role Phone Unavailable Primary Care Provider Unavailable Encounter Details Date Type Department Care Team Description 02/11/2003 Hospital Encounter [facility] Provider, [facility] Social History Tobacco Use Types Packs/Day Years Used Date Smoking Tobacco: Never Assessed Sex Assigned at Date Recorded Female 07/10/2022 7:32 AM CDT documented as of this encounter Plan of Treatment Upcoming Encounters Date Type Specialty Care Team Description 10/10/2022 Office Visit Neurology Karin Ramachandran M.D., M.P.H. [address], [place] [phone] (Wo rk) documented as of this encounter Visit Diagnoses Not on filedocumented in this encounter
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
--- OUTSIDE RECORDS SUMMARY | 2022-10-01 11:08 | XMS_ITS | Encounter Summary ---
:1960 Author Organization [facility] Address [address] [place] [address] Care Team Providers Name Role Phone Unavailable Primary Care Provider Unavailable Encounter Details Date Type Department Care Team Description 12/16/2002 Hospital Encounter HX NO MAPPING Jarrod Persaud M.D. [address] [place], [place] [address] Social History Tobacco Use Types Packs/Day Years Used Date Smoking Tobacco: Never Assessed Sex Assigned at Date Recorded Female 07/10/2022 7:32 AM CDT documented as of this encounter Plan of Treatment Upcoming Encounters Date Type Specialty Care Team Description 10/10/2022 Office Visit Neurology Karin Ramachandran M.D., M.P.H. [address] [place], [place] [phone] (Wo rk) documented as of this encounter Visit Diagnoses Not on filedocumented in this encounter
--- OUTSIDE RECORDS SUMMARY | 2022-10-01 11:08 | XMS_ITS | Encounter Summary ---
:1960 Author Organization [facility] Address [address] [place] [address] Care Team Providers Name Role Phone Unavailable Primary Care Provider Unavailable Encounter Details Date Type Department Care Team Description 04/06/2003 Hospital Encounter [facility]X [facility] Carrillo Charles M.D. [address] [place], [place] [address] Social History Tobacco Use Types Packs/Day Years Used Date Smoking Tobacco: Never Assessed Sex Assigned at Date Recorded Female 07/10/2022 7:32 AM CDT documented as of this encounter Progress Notes Conversion, Historical Provider Ser - 04/06/2003 3:30 PM CDT [id number] Addended by: IZZY DRAKE on: 04/07/2003,3:27 PM [...] basis. Carrillo Persaud M.D./mpD: 04/06/2003T: 04/07/2003 Source: [facility] RWHXTRANSXSYS Document Id: [id number] documented in this encounter Plan of Treatment Upcoming Encounters Date Type Specialty Care Team Description 10/10/2022 Office Visit Neurology Karin Ramachandran M.D., M.P.H. [address] [place] [phone] (Wo rk) documented as of this encounter Visit Diagnoses Not on filedocumented in this encounter
--- OUTSIDE RECORDS SUMMARY | 2022-10-01 11:08 | XMS_ITS | Encounter Summary ---
:1960 Author Organization [facility] Address [address] [place] [address] Care Team Providers Name Role Phone Unavailable Primary Care Provider Unavailable Encounter Details Date Type Department Care Team Description 05/20/2003 Hospital Encounter HX [facility] INTERNMED Elvie Franklin M.D. [address] [facility] [place] [address] (Wo rk) Social History Tobacco Use Types Packs/Day Years Used Date Smoking Tobacco: Never Assessed Sex Assigned at Date Recorded Female 07/10/2022 7:32 AM CDT documented as of this encounter Progress Notes Conversion, Historical Provider Ser - 05/20/2003 9:00 AM CDT [id number] Addended by: ODALIS GARCIA on: 05/24/2003,12:37 PMModules [...] and symmetric. There are no Babinski signs. [id number], heel-kne e-davila, rapid alternating motion rate, casual [...] neck and an MR Angiogram of the [place] [facility] [place]. I will see the patient [...] review.CC: Christie White PA-C for review. Source: [facility] Document Id: [id number] documented in this encounter Plan of Treatment Upcoming Encounters Date Type Specialty Care Team Description 10/10/2022 Office Visit Neurology Karin Ramachandran M.D., M.P.H. [address] [phone] (Wo rk) documented as of this encounter Visit Diagnoses Not on filedocumented in this encounter
--- OUTSIDE RECORDS SUMMARY | 2022-10-01 11:08 | XMS_ITS | Encounter Summary ---
:1960 Author Organization [facility] Address [address] [place] [address] Care Team Providers Name Role Phone Unavailable Primary Care Provider Unavailable Encounter Details Date Type Department Care Team Description 02/09/2003 Hospital Encounter HX [facility] Provider, [facility] Social History Tobacco Use Types Packs/Day Years Used Date Smoking Tobacco: Never Assessed Sex Assigned at Date Recorded Female 07/10/2022 7:32 AM CDT documented as of this encounter Progress Notes Conversion, Historical Provider Ser - 02/09/2003 8:00 AM CST [id number] Here for 3 reasons: 1) L. wrist. [...] end of ay. She will see Dr. Cori later this AM for her wrist. Source: [facility] RWHXTRANSXSYS Document Id: [id number] documented in this encounter Plan of Treatment Upcoming Encounters Date Type Specialty Care Team Description 10/10/2022 Office Visit Neurology Karin Ramachandran M.D., M.P.H. [address] [phone] (Wo rk) documented as of this encounter Visit Diagnoses Not on filedocumented in this encounter
--- OUTSIDE RECORDS SUMMARY | 2022-10-01 11:08 | XMS_ITS | Encounter Summary ---
:1960 Author Organization [facility] Address [address] [place] [address] Care Team Providers Name Role Phone Unavailable Primary Care Provider Unavailable Encounter Details Date Type Department Care Team Description 02/17/2003 Hospital Encounter HX [facility] Carrillo Charles M.D. [address] [place], [place] [address] Social History Tobacco Use Types Packs/Day Years Used Date Smoking Tobacco: Never Assessed Sex Assigned at Date Recorded Female 07/10/2022 7:32 AM CDT documented as of this encounter Plan of Treatment Upcoming Encounters Date Type Specialty Care Team Description 10/10/2022 Office Visit Neurology Karin Ramachandran M.D., M.P.H. [address], [place] [phone] (Wo rk) documented as of this encounter Visit Diagnoses Not on filedocumented in this encounter
--- OUTSIDE RECORDS SUMMARY | 2022-10-01 11:09 | XMS_ITS | Encounter Summary ---
:1960 Author Organization [facility] Address [address] [place] [address] Care Team Providers Name Role Phone Unavailable Primary Care Provider Unavailable Encounter Details Date Type Department Care Team Description 10/28/2001 Hospital Encounter [facility]X [facility] Provider, [facility] Social History Tobacco Use Types Packs/Day Years Used Date Smoking Tobacco: Never Assessed Sex Assigned at Date Recorded Female 07/10/2022 7:32 AM CDT documented as of this encounter Miscellaneous Notes Miscellaneous - Conversion, Historical Provider Ser - 10/28/2001 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 Sincerely, Anjelica White PA-C [facility] Document Id: [id number] documented in this encounter Plan of Treatment Upcoming Encounters Date Type Specialty Care Team Description 10/10/2022 Office Visit Neurology Karin Ramachandran M.D., M.P.H. [address] [place], [place] [phone] (Wo rk) documented as of this encounter Visit Diagnoses Not on filedocumented in this encounter
--- OUTSIDE RECORDS SUMMARY | 2022-10-01 11:09 | XMS_ITS | Encounter Summary ---
:1960 Author Organization [facility] Address [address] [place] [address] Care Team Providers Name Role Phone Unavailable Primary Care Provider Unavailable Encounter Details Date Type Department Care Team Description 11/10/2002 Hospital Encounter HX [facility] Provider, [facility] Social History Tobacco Use Types Packs/Day Years Used Date Smoking Tobacco: Never Assessed Sex Assigned at Date Recorded Female 07/10/2022 7:32 AM CDT documented as of this encounter Plan of Treatment Upcoming Encounters Date Type Specialty Care Team Description 10/10/2022 Office Visit Neurology Karin Ramachandran M.D., M.P.H. [address], [place] [phone] (Wo rk) documented as of this encounter Visit Diagnoses Not on filedocumented in this encounter
--- OUTSIDE RECORDS SUMMARY | 2022-10-01 11:09 | XMS_ITS | Encounter Summary ---
:1960 Author Organization [facility] Address [address] [place] [address] Care Team Providers Name Role Phone Unavailable Primary Care Provider Unavailable Encounter Details Date Type Department Care Team Description 11/11/2002 Hospital Encounter HX NO MAPPING Fady Parsons M.D. [address] [place], [place] [address] Social History Tobacco Use Types Packs/Day Years Used Date Smoking Tobacco: Never Assessed Sex Assigned at Date Recorded Female 07/10/2022 7:32 AM CDT documented as of this encounter Plan of Treatment Upcoming Encounters Date Type Specialty Care Team Description 10/10/2022 Office Visit Neurology Karin Ramachandran M.D., M.P.H. [address], [place] [phone] (Wo rk) documented as of this encounter Visit Diagnoses Not on filedocumented in this encounter
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
--- OUTSIDE RECORDS SUMMARY | 2022-10-01 11:09 | XMS_ITS | Encounter Summary ---
:1960 Author Organization [facility] Address [address] [place] [address] Care Team Providers Name Role Phone Unavailable Primary Care Provider Unavailable Encounter Details Date Type Department Care Team Description 11/03/2001 Hospital Encounter HX [facility] Provider, [facility] Social History Tobacco Use Types Packs/Day Years Used Date Smoking Tobacco: Never Assessed Sex Assigned at Date Recorded Female 07/10/2022 7:32 AM CDT documented as of this encounter Miscellaneous Notes Telephone Encounter - Conversion, Historical Provider Ser - 11/03/2001 12:00 AM CST [id number] >> LAMBERTO DOWNEY SatMay 11, 2002 3:58 [...] RECEIVED. Contact: uses [facility] and called to [phone]. QH Source: [facility] RWHXTRANSXSYS Document Id: [id number] documented in this encounter Plan of Treatment Upcoming Encounters Date Type Specialty Care Team Description 10/10/2022 Office Visit Neurology Karin Ramachandran M.D., M.P.H. [address], [place] [phone] (Wo rk) documented as of this encounter Visit Diagnoses Not on filedocumented in this encounter
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
--- OUTSIDE RECORDS SUMMARY | 2022-10-01 11:09 | XMS_ITS | Encounter Summary ---
:1960 Author Organization [facility] Address [address] [place] [address] Care Team Providers Name Role Phone Unavailable Primary Care Provider Unavailable Encounter Details Date Type Department Care Team Description 12/15/2002 Hospital Encounter HX [facility] Carrillo Charles M.D. [address] [place], [place] [address] Social History Tobacco Use Types Packs/Day Years Used Date Smoking Tobacco: Never Assessed Sex Assigned at Date Recorded Female 07/10/2022 7:32 AM CDT documented as of this encounter Progress Notes Conversion, Historical Provider Ser - 12/15/2002 9:45 AM CST [id number] Addended by: IZZY DRAKE on: 12/21/2002,7:26 AM Comment: transcriptionModules accepted: Everardo rodriguez NotesAddended by: CARRILLO TAFOYA on: 12/15/2002,11:48 AMModules accepted: Order SummaryBa lesly Dixon is a 42-y/o lady who presents with a one or two week history of pain in the l eft arm. This pain began a couple of weeks ago and intensified when she was recently in the [facility] n and doing some head stands. She has complaints of pain that radiate from her neck and shoulder reg ion down into the axilla and in her arm and all the way down into her left hand with a numb and tingl ing feeling in the middle and ring fingers of that hand. She feels as if she may have lost a little forensics team director strength, although she is right handed and [...] little less in the left hand with forensics team director not being quite as strong as the [...] -surgeon. Carrillo Tafoya MD/mpD: 12/15/02T: 12/17/02 Source: [facility] RWMCHXTRANSXSYS Document Id: [id number] documented in this encounter Plan of Treatment Upcoming Encounters Date Type Specialty Care Team Description 10/10/2022 Office Visit Neurology Karin Ramachandran M.D., M.P.H. [address] [phone] (Wo rk) documented as of this encounter Visit Diagnoses Not on filedocumented in this encounter
--- OUTSIDE RECORDS SUMMARY | 2022-10-01 11:09 | XMS_ITS | Encounter Summary ---
:1960 Author Organization [facility] Address [address] [place] [address] Care Team Providers Name Role Phone Unavailable Primary Care Provider Unavailable Encounter Details Date Type Department Care Team Description 11/30/2002 Hospital Encounter HX [facility] Provider, [facility] Social History Tobacco Use Types Packs/Day Years Used Date Smoking Tobacco: Never Assessed Sex Assigned at Date Recorded Female 07/10/2022 7:32 AM CDT documented as of this encounter Miscellaneous Notes Telephone Encounter - Conversion, Historical Provider Ser - 11/30/2002 12:00 AM CST [id number] >> ADRIANE DELGADO Mon Nov 30, 2002 12:51 PM A user error has taken place: encounter opened in error, closed for administrative reasons. >> ADRIANE DELGADO SatNov 30, 2002 12:50 PM >> CALL RECEIVED. Contact: [facility] Document Id: [id number] documented in this encounter Plan of Treatment Upcoming Encounters Date Type Specialty Care Team Description 10/10/2022 Office Visit Neurology Karin Ramachandran M.D., M.P.H. [address] [place], [place] [phone] (Wo rk) documented as of this encounter Visit Diagnoses Not on filedocumented in this encounter
--- OUTSIDE RECORDS SUMMARY | 2022-10-01 11:09 | XMS_ITS | Encounter Summary ---
:1960 Author Organization [facility] Address [address] [place] [address] Care Team Providers Name Role Phone Unavailable [...] Visit Neurology Karin Ramachandran M.D., M.P.H. [address] [place], [place] [phone] (Wo rk) documented as of this encounter Visit Diagnoses Not on filedocumented in this encounter
--- OUTSIDE RECORDS SUMMARY | 2022-10-01 11:09 | XMS_ITS | Encounter Summary ---
:1960 Author Organization [facility] Address [address] [place] [address] Care Team Providers Name Role Phone Unavailable Primary Care Provider Unavailable Encounter Details Date Type Department Care Team Description 12/15/2002 Hospital Encounter HX [facility] Provider, [facility] Social History Tobacco Use Types Packs/Day Years Used Date Smoking Tobacco: Never Assessed Sex Assigned at Date Recorded Female 07/10/2022 7:32 AM CDT documented as of this encounter Progress Notes Conversion, Historical Provider Ser - 12/15/2002 8:20 AM CST [id number] Here for reports:HTN: I am starting her [...] for a long time. Was told at [facility] she has a disc problem. I referred [...] BP.20 min spent, all in counseling. [facility] Document Id: [id number] documented in this encounter Plan of Treatment Upcoming Encounters Date Type Specialty Care Team Description 10/10/2022 Office Visit Neurology Karin Ramachandran M.D., M.P.H. [address] [phone] (Wo rk) documented as of this encounter Visit Diagnoses Not on filedocumented in this encounter
--- OUTSIDE RECORDS SUMMARY | 2022-10-01 11:09 | XMS_ITS | Encounter Summary ---
:1960 Author Organization [facility] Address [address] [place] [address] Care Team Providers Name Role Phone Unavailable Primary Care Provider Unavailable Encounter Details Date Type Department Care Team Description 09/10/2001 [facility], [facility] Social History Tobacco Use Types Packs/Day Years Used Date Smoking Tobacco: Never Assessed Sex Assigned at Date Recorded Female 07/10/2022 7:32 AM CDT documented as of this encounter Progress Notes Conversion, Historical Provider Ser - 09/10/2001 12:00 AM CDT [id number] Zandra [id number] [id number]/17/2001De quentin Zandra,I hope things are going well. [...] sample to determine status of hormones.Sincerely,KALEY Jaime- [facility] Source: [facility] Document Id: [id number] documented in this encounter Plan of Treatment Upcoming Encounters Date Type Specialty Care Team Description 10/10/2022 Office Visit Neurology Karin Ramachandran M.D., M.P.H. [address] [phone] (Wo rk) documented as of this encounter Visit Diagnoses Not on filedocumented in this encounter
--- OUTSIDE RECORDS SUMMARY | 2022-10-01 11:09 | XMS_ITS | Encounter Summary ---
:1960 Author Organization [facility] Address [address] [place] [address] Care Team Providers Name Role Phone Unavailable Primary Care Provider Unavailable Encounter Details Date Type Department Care Team Description 11/10/2002 Hospital Encounter HX [facility] Provider, [facility] galloway Social History Tobacco Use Types Packs/Day Years Used Date Smoking Tobacco: Never Assessed Sex Assigned at Date Recorded Female 07/10/2022 7:32 AM CDT documented as of this encounter Miscellaneous Notes Telephone Encounter - Conversion, Historical Provider Ser - 11/10/2002 12:00 AM CST [id number] >> ADRIANE DELGADO Blaa Nov 10, 2002 1:00 PM >> CALL [...] do fasting e xam on . [facility]: [facility] Document Id: [id number] documented in this encounter Plan of Treatment Upcoming Encounters Date Type Specialty Care Team Description 10/10/2022 Office Visit Neurology Karin Ramachandran M.D., M.P.H. [address], [place] [phone] (Wo rk) documented as of this encounter Visit Diagnoses Not on filedocumented in this encounter
== END 2022-10-01 10:47 | disposition home or self-care (01) ==
LOC: OP CLINIC 10:46
PROVIDERS: PCP Family Medicine; Visit Provider Surgery
DX: Z12.11 Encounter for screening for malignant neoplasm of colon (principal); K63.5 Polyp of colon; K62.1 Rectal polyp; K64.4 Residual hemorrhoidal skin tags; K57.30 Diverticulosis of large intestine without perforation or abscess without bleeding
CPT/HCPCS: 45385; 88305; 99153; J2250; J3010

== ENCOUNTER 2023-03-14 08:00 | Outpatient (CLI) | payer BC, SELFPAY ==
--- NOTE | 2023-03-14 08:15 | CRLHL7_ITS ---
For Patients: As a result of the Century Cures Act, medical imaging exams and procedure reports are released immediately into your electronic medical record. You may view this report before your referring provider. If you have questions, please contact your health care provider. Indication: Low back pain Technique: Multiplanar, multisequence, MRI of the lumbar spine, obtained without contrast. Comparison: Lumbar spine x-ray E Findings: Preserved lumbar lordosis. Chronic appearing bilateral L5 pars defects, with 9 mm anterolisthesis L5 on S1. Minimal degenerative grade 1 retrolisthesis and L1-2 and L2-3, minimal degenerative anterolisthesis at L4-5. L5 superior endplate compression fracture and/or acute Schmorl`s node, with diffuse bony edema extending throughout the vertebral body and bilateral transverse processes. Moderate left eccentric bony edema throughout the L4 inferior vertebral body and left transverse process, without discrete fracture line. Bilateral L4-5 facet joint effusions. Minimal degenerative or type 1 endplate changes at L1-2. The conus medullaris terminates at approximately L1. No suspicious findings in the paraspinal soft tissues. Mild degenerative changes at the bilateral SI joints. T12-L1: No significant neural foraminal or spinal canal stenosis. L1-L2: Retrolisthesis, minimal disc bulge. No significant neural foraminal or spinal canal stenosis. L2-L3: Retrolisthesis, minimal disc bulge. No significant neural foraminal or spinal canal stenosis. L3-L4: Mild diffuse disc bulge. No significant neural foraminal or spinal canal stenosis. L4-L5: Minimal anterolisthesis, diffuse disc bulge with central disc extrusion, facet arthropathy and facet joint effusions. Contact upon the descending L5 nerve roots along both lateral recesses. Moderate left neural foraminal stenosis with possible impingement of the exiting left L4 nerve root. No significant right neural foraminal or central spinal canal stenosis. L5-S1: Bilateral L5 spondylolysis, anterolisthesis with disc unroofing/bulge, facet arthropathy. Mild right, moderate left neural foraminal stenosis, with possible impingement of the exiting left L5 nerve root. No significant spinal canal stenosis. Impression: 1. L5 superior endplate compression fracture and/or acute Schmorl`s node, with diffuse bony edema extending throughout the vertebral body and bilateral transverse processes. 2. Moderate left eccentric bony edema throughout the L4 inferior vertebral body and left transverse process without obvious fracture line, possibly reactive. 3. At L4-5, central disc extrusion contacting the descending L5 nerve roots along both lateral recesses, with moderate left neural foraminal stenosis and possible impingement of the exiting left L4 nerve root. 4. At L5-S1, chronic bilateral L5 spondylolysis with 9 mm anterolisthesis, moderate left neural foraminal stenosis with possible impingement of the exiting left L5 nerve root. Dictated by Joanne Mueller MD @ 03/14/2023 2:28:29 PM (Electronically Signed)
--- NOTE | 2023-03-14 09:15 | CRLHL7_ITS ---
For Patients: As a result of the 21st Century Cures Act, medical imaging exams and procedure reports are released immediately into your electronic medical record. You may view this report before your referring provider. If you have questions, please contact your health care provider. INDICATION: Imbalance. TECHNIQUE: Multiplanar multisequence noncontrast MR images acquired through the cervical spine. COMPARISON: None. FINDINGS: Mild leftward cervical curvature. Straightening of the cervical lordosis. No acute fracture. No T1 hypointense marrow replacing lesions. The cervical cord is normal in signal intensity. Degenerative changes at the atlantodental articulation. C2-3: Shallow posterior disc bulge. Mild facet arthropathy. No spinal canal or neural foraminal narrowing. C3-4: Small central disc protrusion indents the cord. Mild right dzcj-wi-rsnbqvau left facet arthropathy. Minimal spinal canal narrowing. Minimal right without left neural foraminal narrowing. C4-5: Mild grade 1 anterolisthesis. Posterior disc bulge. Bilateral uncinate spurring. Advanced bilateral facet arthropathy. Bilateral such effusions. Extensive edema within the bilateral articulating facets. Small dorsal extra-spinal synovial cysts. Thickening ligamentum flavum. Mild spinal canal narrowing. Mild bilateral neural foraminal narrowing. C5-6: Advanced disc height loss associated with extensive vertebral body edema. Shallow posterior disc osteophyte complex. Right greater left uncinate spurring. Zzeq-lu-aknorljm facet arthropathy. No spinal canal narrowing. Moderate right and mild left neural foraminal narrowing. C6-7: Advanced disc height loss associated with moderately extensive marrow edema. Posterior disc osteophyte complex. Right greater left uncinate spurring. Mild facet arthropathy. Minimal spinal canal narrowing. Vzhd-ob-pawlvatm right and mild left neural foraminal narrowing. C7-T1: Grade 1 anterolisthesis. Moderately advanced facet arthropathy. Mild to moderate edema within the articulating facets. No spinal canal narrowing. Mild bilateral neural foraminal narrowing. T1-2: No spinal canal or neural foraminal narrowing. IMPRESSION: 1. Multilevel cervical spondylosis without spinal canal stenosis or cord signal abnormality. 2. At C4-5, extensive edema within the bilateral articulating facets likely represents a stress response. Mild spinal canal and neural foraminal narrowing. 3. At C5-6, moderate right and mild left neural foraminal narrowing. Extensive discogenic vertebral body edema. 4. At C6-7, mild to moderate right and mild left neural foraminal narrowing. Moderately extensive discogenic vertebral body edema. 5. At C7-T1, mild to moderate edema within the articulating facets likely represents a stress response. Dictated by Naren Veras MD @ 03/14/2023 2:10:39 PM (Electronically Signed)
== END 2023-03-14 08:01 | disposition home or self-care (01) ==
LOC: MRI 08:00
PROVIDERS: PCP Family Medicine; Visit Provider Orthopaedic Surgery Orthopaedic Surgery of the Spine
DX: R26.89 Other abnormalities of gait and mobility (principal); M48.02 Spinal stenosis, cervical region; M48.062 Spinal stenosis, lumbar region with neurogenic claudication; M50.222 Other cervical disc displacement at C5-C6 level; M50.223 Other cervical disc displacement at C6-C7 level
CPT/HCPCS: 72141; 72148

== ENCOUNTER 2023-09-16 08:30 | Outpatient (CLI) | payer BC, SELFPAY | END 2023-09-16 08:31 | disposition home or self-care (01) | LOC: NFLDREF 09-19 10:34 | PROVIDERS: PCP Family Medicine; Referring Provider Family Medicine; Visit Provider Family Medicine | DX: Z00.00 Encounter for general adult medical examination without abnormal findings (principal); E78.5 Hyperlipidemia, unspecified; E83.42 Hypomagnesemia; E03.9 Hypothyroidism, unspecified; E83.51 Hypocalcemia; E87.6 Hypokalemia; E87.1 Hypo-osmolality and hyponatremia; I10 Essential (primary) hypertension | CPT/HCPCS: 80053; 80061; 83735; 84443 ==

== ENCOUNTER 2024-08-12 18:32 | Emergency (ER) | payer BC, SELFPAY ==
[2024-08-12 18:35] VITALS: BP 198/134; PULSE 95; RESP 16; TEMP 36.6; O2SAT 96; BMI 23.8
--- NOTE | 2024-08-12 18:46 | ED.AMS ---
HPI - Altered Mental Status General Time Seen by Provider: 18:46 Date Seen: 08/12/24 Chief Complaint: Altered Mental Status Stated Complaint: Altered mental status Time Seen by Provider: 08/12/24 18:46 Source: patient, RN notes reviewed and old records reviewed Limitations: no limitations History of Present Illness HPI narrative: Kay is a 63-year-old female with history of alcohol use, alcohol withdrawal seizures, Wernicke-Korsakoff syndrome, GERD, low magnesium, calcium, potassium who comes to the emergency room today being driven by her son-in-law for evaluation of 2 seizures. At approximately 0615 kay was in a convenience store and became unresponsive. [facility] were called and both they and Kay son-in-law tried to talk her into coming to the hospital but she declined. Kay then had a 2nd seizure and was brought to the ER by her son-in-law. Staff went out to the vehicle to find kay slumped over and incontinent. She was brought into room 8 at which time I meet her. As she was being brought in a code stroke was called because of her unresponsiveness. Now in room 8 she is able to answer questions and follow commands. She tells me she has a history of seizures but she has not had seizures for a long time. She denies any falls or injury. She has not been ill with cough cold congestion or fever. She denies any nausea or vomiting. She denies any incontinence of urine or stool. Zandra's states that her nephew is currently staying with her any talks all the time and she feels that that is the stress that may have caused her to have a seizure today. Patient at this time has no headache, chest pain and wishes to go home. Kassandra does agree that she occasionally has alcohol. She denies daily alcohol use. She does note that she had some alcoholic drinks earlier today but declines to tell me how many. She does not smell of alcohol at this moment. Denies drug use. Related Data Home Medications ?Medication ?Instructions ?Recorded ?Confirmed docusate sodium 100 mg capsule mg PO .Daily as needed PRN 05/22/22 09/18/23 calcium carbonate 600 mg-vitamin 1 tab PO QDAY 08/29/22 09/18/23 D3 20 mcg (800 unit) tablet loratadine 10 mg tablet 10 mg PO DAILY PRN 10/04/22 09/18/23 acetaminophen 325 mg tablet 325 mg PO Q4-6H PRN 09/18/23 09/18/23 Previous Rx's ?Medication ?Instructions ?Recorded multivitamin with folic acid 400 See Rx Instructions .Route 09/22/22 mcg tablet (Tab-A-Amira) .COMPLEX #90 tabs albuterol sulfate 90 mcg/actuation 2 puff inhalation Q4-6H PRN 09/18/23 aerosol inhaler shortness of breath or wheezing #8.5 grams amlodipine 5 mg tablet 5 mg PO DAILY #90 tabs 09/18/23 atorvastatin 10 mg tablet 10 mg PO QPM #90 tabs 09/18/23 epinephrine 0.3 mg/0.3 mL See Rx Instructions .Route 09/18/23 injection, auto-injector .COMPLEX #2 ea fluticasone furoate 100 1 inh inhalation QDAY #180 ea 09/18/23 mcg-vilanterol 25 mcg/dose inhalation powder (Breo Ellipta) folic acid 400 mcg tablet 400 mcg PO DAILY #90 tabs 09/18/23 levetiracetam 500 mg tablet 750 mg (1.5 x 500 mg) PO BID #270 09/18/23 tabs levothyroxine 88 mcg tablet 88 mcg PO DAILY #90 tabs 09/18/23 omeprazole 20 mg capsule,delayed 20 mg PO DAILY #90 caps 09/18/23 release peg 3350-electrolytes 236 240 ml PO Q10M #4,000 mL 09/18/23 gram-22.74 gram-6.74 gram-5.86 gram solution (Golytely) potassium chloride 20 mEq 20 meq PO DAILY #90 tabs 09/18/23 tablet,extended release(part/cryst) thiamine HCl (vitamin B1) 100 mg 100 mg PO DAILY #90 tabs 09/18/23 tablet trazodone 50 mg tablet 50 mg PO QHS PRN insomnia #30 tabs 09/18/23 magnesium oxide 400 mg (241.3 mg 400 mg PO BID #180 tabs 12/04/23 magnesium) tablet gabapentin 300 mg capsule 600 mg (2 x 300 mg) PO TID #180 06/08/24 caps Allergies Allergy/AdvReac Type Severity Reaction Status Date / Time latex Allergy Unknown Verified 09/18/23 07:44 poison oak extract Allergy Unknown Verified 09/18/23 07:44 Review of Systems Const: Denies: fever, chills or fatigue Eyes: Denies: change in vision or blurry vision ENMT: Denies: throat pain, neck pain, throat swelling, difficulty swallowing, vertigo or nasal congestion Cardio: Denies: chest pain, palpitations, swelling of feet/ankles, lightheadedness or shortness of breath with exertion Resp: Denies: shortness of breath or cough GI: Denies: abdominal pain, nausea, vomiting, diarrhea or difficulty swallowing : Denies: painful urination Musculo: Denies: back pain, neck pain or extremity pain Neuro: Reports: seizure-like activity; Denies: headache, numbness in extremities, weakness in extremities, lack of coordination, dizziness, vertigo or involuntary movements Endo: Denies: fatigue Allergy/Immuno: Denies: throat swelling PFSH [facility] Medical History POLST (Physician Orders for Life-Sustaining Treatment) ?Z78.9 - Other specified health status (ICD-10) Physician orders for life-sustaining treatment (POLST) form indicates patient wish for gz-zqt-qzqulkkfsky status (10/20/19) ?Z66 - Do not resuscitate (ICD-10) Systemic inflammatory response syndrome (SIRS) due to non-infectious process without acute organ dysfunction ?R65.10 - Systemic inflammatory response syndrome (SIRS) of non-infectious origin without acute organ dysfunction (ICD-10) 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 (ICD-10) Tobacco dependence syndrome ?F17.200 - Nicotine dependence, unspecified, uncomplicated (ICD-10) Seizure (05/28/20) ?R56.9 - Unspecified convulsions (ICD-10) Muscular atrophy ?M62.50 - Muscle wasting and atrophy, not elsewhere classified, unspecified site (ICD-10) Lactic acidosis ?E87.2 - Acidosis (ICD-10) Impulsiveness ?R45.87 - Impulsiveness (ICD-10) Impaired cognition ?R41.89 - Other symptoms and signs involving cognitive functions and awareness (ICD-10) Hypothyroidism ?E03.9 - Hypothyroidism, unspecified (ICD-10) Hyponatremia ?E87.1 - Hypo-osmolality and hyponatremia (ICD-10) Hypomagnesemia ?E83.42 - Hypomagnesemia (ICD-10) Hypokalemia ?E87.6 - Hypokalemia (ICD-10) Hypocalcemia ?E83.51 - Hypocalcemia (ICD-10) Hypertension ?I10 - Essential (primary) hypertension (ICD-10) Health care directive on file (07/07/19) ?Z78.9 - Other specified health status (ICD-10) Gastroesophageal reflux disease ?K21.9 - Gastro-esophageal reflux disease without esophagitis (ICD-10) Durable power of workers compensation attorney in chart (12/30/19) Ataxia (05/01/22) ?R27.0 - Ataxia, unspecified (ICD-10) Allergic reaction (03/09/15) ?T78.40XA - Allergy, unspecified, initial encounter (ICD-10) Alcoholism ?F10.20 - Alcohol dependence, uncomplicated (ICD-10) Alcohol withdrawal syndrome (05/28/20) ?F10.239 - Alcohol dependence with withdrawal, unspecified (ICD-10) Alcohol withdrawal seizure (05/28/20) ?F10.239 - Alcohol dependence with withdrawal, unspecified (ICD-10) ?R56.9 - Unspecified convulsions (ICD-10) Surgical History History of carpal tunnel release ?Z98.890 - Other specified postprocedural states (ICD-10) Fracture of right humerus ?S42.301A - Unspecified fracture of shaft of humerus, right arm, initial encounter for closed fracture (ICD-10) Social History Narrative: SOCIAL HISTORY: [place]. Her daughter moved to [place]. Sister 45 minutes away. HABITS: Quit alcohol at the beginning of April. Previous use was 5 cocktails per day starting later in the day. Each contain approximately 1 shot of hard alcohol. She continues to smoke half pack cigarettes per day. Past marijuana use but not current. FAMILY HISTORY: Unspecified relatives with heart disease, stroke, breast cancer, other cancer. What is your current living situation?: I presently have a place to live Problems where you live: no known problems In the past 12 months, utilities in danger of being shut off: no In past 12 months, lack of transportation kept you from medical appts, meetings, work, or getting things needed for daily living: no In the past 12 mos, have been you worried that your food would run out before you had money to buy more?: declined to answer In the past 12 mos, the food you bought just didn't last and you didn't have money to buy more?: never true Smoking Status: Current every day smoker How often does anyone, including family, friends and others, physically hurt you: never How often does anyone, including family, friends and others, insult or talk down to you: never How often does anyone, including family, friends and others, threaten you with harm: never How often does anyone, including family, friends and others, scream or curse at you: never Little interest or pleasure in doing things: not at all Feeling down, depressed, or hopeless: not at all Exam Narrative: Exam Narrative: Kay is now alert and oriented. Airway is open Breathing is easy Circulation no evidence of bleeding Disability-no deformities noted. GCS 15 EOM is full and pupils are equal and round. They do react when she looks at light. Face is symmetrical. She has resolving ecchymosis or redness around the left orbit. Oral cavity with moist mucous membranes. She has some redness on the left side of her tongue that is perhaps a injury from seizure. Neck is supple. Range of motion is full and there is no guarding. Heart with a regular rate and rhythm. Lungs are with decreased breath sounds bilaterally but no evidence of wheezing or crackles. Abdomen soft. She is moving all of her extremities. She is very cachectic in appearance. She has multiple bruises in various stages of healing as well as superficial scratches on her lower legs. Initially I thought she had some slurring of her speech but as the interview progresses this is her normal speech pattern. Const: Vital Signs, click to edit/add: Vital Signs - 24 hr 08/12/24 18:35 Temperature 97.8 F Pulse Rate [Pulse Oximeter] 95 Respiratory Rate 16 Blood Pressure [Le ft Upper Arm] 198/134 H Pulse Oximetry 96 Oxygen Delivery Me thod Room Air Documenting provider has reviewed patient's vital signs: yes Course Course ED Course: Differential diagnosis includes but is not limited to alcohol withdrawal, seizures, electrolyte imbalance, cardiac arrhythmia, intracranial bleed, vitamin deficiency, morning Anjelica Korsakoff's syndrome, sepsis. At this time given patient's use of alcohol which according to the chart is worse than what kay is telling me I have great concerns about her health. I would like to have her undergo head and cervical spine CTs as I am not entirely convinced that she has not had any recent trauma, lab values to include CBC, comprehensive panel, CRP, troponin, alcohol level, acetaminophen, salicylates, drug screen, urinalysis as well as chest x-ray. I would be like to place her on a manager monitoring. Unfortunately, kay is declining everything and wants nothing done at this time. She states she wants to go home. I do explain to her that to seizures. Today are very concerning for me and I really need to find out why this occurred. I do state that she may need medicines that I would need to give her. Again she declines. Vital Signs Vital signs: Initial Vital Signs Temperature 97.8 F 08/12/24 18:35 Temperature Source Temporal Artery Scan 08/12/24 18:35 Pulse Rate 95 08/12/24 18:35 Respiratory Rate 16 08/12/24 18:35 Blood Pressure 198/134 H 08/12/24 18:35 Blood Pressure Mean 155 H 08/12/24 18:35 Blood Pressure Position Sitting 08/12/24 18:35 Pulse Oximetry 96 08/12/24 18:35 Oxygen Delivery Method Room Air 08/12/24 18:35 Vital Signs Temperature 97.8 F 08/12/24 18:35 Pulse Rate 95 08/12/24 18:35 Respiratory Rate 16 08/12/24 18:35 Blood Pressure 198/134 H 08/12/24 18:35 Pulse Oximetry 96 08/12/24 18:35 Oxygen Delivery Method Room Air 08/12/24 18:35 Temperature 97.8 F 08/12/24 18:35 Pulse Rate 95 08/12/24 18:35 Respiratory Rate 16 08/12/24 18:35 Blood Pressure 198/134 H 08/12/24 18:35 Pulse Oximetry 96 08/12/24 18:35 Oxygen Delivery Method Room Air 08/12/24 18:35 MDM - Altered Mental Status MDM Narrative Medical decision making narrative: 1. Seizure by history-patient did have incontinence and does have a history of seizure per her chart. Did these look to be associated with alcohol withdrawal syndrome. She did have alcoholic drinks earlier today. She is able to make her own decisions is not currently under any once guardianship. She does explain that her daughter will have power of workers compensation attorney and will inherit her house and money. I have expressed my significant concern regarding kay leaving. Many times I expressed concern regarding are being at risk for with the decision to leave. Kay then explains that she will go into the clinic tomorrow or come back. She stated that she wanted to go home and have supper and I have offered her food here but she has declined. She did state that her son-in-law would stay with her and therefore she would be safe. She further tried to reassure me about her safety as she has the ability to summon please with her security system. While I appreciate that, I told her there is really nothing she can say that we convinced me that leaving is the right decision for her. Again, I express significant concern that she is placing herself at risk for and serious illness by departing. Zandra is able to tell me her full name, date of , address, the president, and appears to be in a position and has the right to make her own decisions even though I believe this decision is wrong. She is able to ambulate by herself. Her son-in-law is called into the room in the hopes that we could possibly convince her to stay. She states she wants to go home and unfortunately I cannot force her into any treatments or lab draws against her will. 2. History of alcohol use- 3. Disposition-patient signs out AMA from the emergency room. I have asked her to follow up with her primary MD. She states she will come back tomorrow or make an appointment with the clinic. I did tell her that just because she signs out AMA tonight does not mean that she is not welcome to return for any reason to the ER. Note staff had done an EKG prior to patient refusing any further cares. It does shows sinus rhythm at a rate of [address] or T-wave changes. Normal QT and DC intervals. Medical Records Attestation: I reviewed the patient's medical records. Discharge Plan Discharge Prescriptions: No Action calcium carbonate-vitamin D3 600 mg-20 mcg (800 unit) tablet 1 tab PO QDAY albuterol sulfate 90 mcg/actuation HFA aerosol inhaler 2 puff inhalation Q4-6H PRN (Reason: shortness of breath or wheezing) Qty: 8.5 11RF amlodipine 5 mg tablet 5 mg PO DAILY Qty: 90 3RF atorvastatin 10 mg tablet 10 mg PO QPM Qty: 90 3RF epinephrine 0.3 mg/0.3 mL auto-injector See Rx Instructions .ROUTE .COMPLEX Qty: 2 0RF Dose Instruction: Inject 0.3mg (contents of 1 pen) intramuscularly one time if needed for allergic reaction. Rx Instructions: Inject 0.3mg (contents of 1 pen) intramuscularly one time if needed for allergic reaction. fluticasone furoate-vilanterol [Breo Ellipta] 100-25 mcg/dose blister with device 1 inh inhalation QDAY Qty: 180 3RF folic acid 400 mcg tablet 400 mcg PO DAILY Qty: 90 3RF levetiracetam 500 mg tablet 750 mg PO BID Qty: 270 4RF levothyroxine 88 mcg tablet 88 mcg PO DAILY Qty: 90 3RF omeprazole 20 mg capsule,delayed release(DR/EC) 20 mg PO DAILY Qty: 90 3RF potassium chloride 20 mEq tablet,ER particles/crystals 20 meq PO DAILY Qty: 90 3RF thiamine HCl (vitamin B1) 100 mg tablet 100 mg PO DAILY Qty: 90 3RF trazodone 50 mg tablet 50 mg PO QHS PRN (Reason: insomnia) Qty: 30 11RF peg 3350-electrolytes [Golytely] 236-22.74-6.74 -5.86 gram recon soln 240 ml PO Q10M Qty: 4000 0RF Rx Instructions: until fecal effluent is clear docusate sodium 100 mg capsule PO .Daily as needed PRN loratadine 10 mg tablet 10 mg PO DAILY PRN acetaminophen 325 mg tablet 325 mg PO Q4-6H PRN multivitamin with folic acid [Tab-A-Amira] 400 mcg tablet See Rx Instructions .ROUTE .COMPLEX Qty: 90 4RF Dose Instruction: TAKE ONE TABLET BY MOUTH ONE TIME DAILY Rx Instructions: TAKE ONE TABLET BY MOUTH ONE TIME DAILY magnesium oxide 400 mg (241.3 mg magnesium) tablet 400 mg PO BID Qty: 180 3RF gabapentin 300 mg capsule 600 mg PO TID Qty: 180 2RF Follow Up/Referrals: Manuel Heller MD [Primary Care Provider] -
--- OUTSIDE RECORDS SUMMARY | 2024-08-12 18:53 | XMS_ITS | Referral Summary ---
Author Organization [facility] Address [address] [place] [address] Care Team Providers Care Lotus Notes Developer Name Role Phone Elsewhere, Pcp Primary Care Provider Unavailabl e Source Comments Patient records contain information from all sites at [facility]. For routine questions regarding patient records, call [phone] during business hours, M-F 8:00 AM - 5:00 PM Central Time. Record requests for emergency care only can be directed to [phone] at any time.[facility] Allergies Active Allergy Reactions Criticality Noted Date Comments Latex Rash 04/22/2009 LATEX - rash, hives Poison [place] Extract Edema (Reselect Reaction) 04/20/2014 Medications Medication Sig Dispensed Refills Start Date End Date Status omeprazole (for_PriLOSEC) 20 mg capsule Take 1 tablet by mouth daily as needed. 03/20/2017 Active CALCIUM CARB/VIT D3/MINERALS (CALCIUM-VITAMIN D ORAL) Calcium 600+D See Instructions, 1 TABLET DAILY 02/20/2014 Active EPINEPHrine (for_EPIPEN) 0.3 mg/0.3 mL injection syringe Inject 0.3 mg intramuscularly See Admin Instructions. 03/20/2017 Active gabapentin (for_NEURONTIN) 300 mg capsule Take 1 capsule (300 mg total) by mouth 3 (three) times a day. 270 capsule 3 12/03/2017 Active Additional Information Patient taking differently:300 mg oral 3 times daily (RT),Takes 5 capsules daily., Reported on 11/01/2022 amLODIPine (NORVASC) 10 mg tablet Take 1 tablet (10 mg total) by mouth once daily. 90 tablet 05/30/2018 Active levothyroxine (SYNTHROID, LEVOTHROID) 88 mcg tablet Take 1 tablet (88 mcg total) by mouth daily. Needs lab before further refills 30 tablet 06/02/2018 Active albuterol 90 mcg/actuation inhaler Inhale 2 puffs every 4 (four) hours as needed. 03/11/2016 Active docusate sodium (COLACE) 100 mg capsule .Daily as needed 05/22/2022 Active FOLIC ACID ORAL Take 400 mcg by mouth daily. 05/22/2022 Active levETIRAcetam (KEPPRA) 750 mg tablet Take 750 mg by mouth 2 (two) times a day. 06/06/2022 Active loratadine 10 mg capsule Take 10 mg by mouth daily. 05/22/2022 Active MAGNESIUM OXIDE ORAL 2 (two) times a day. 05/22/2022 Acti ve multivitamin-Ca- iron-minerals tablet 1 tablet. 05/22/2022 Active thiamine (VITAMIN B1) 100 mg tablet daily. 05/22/2022 Active traZODone (DESYREL) 50 mg tablet .Bedtime 05/22/2022 Active amLODIPine (NORVASC) 5 mg tablet daily. 05/22/2022 Active famotidine (PEPCID) 20 mg tablet Take 20 mg by mouth 2 (two) times a day. Active acetaminophen (TYLENOL) 325 mg tablet Take 325 mg by mouth as needed. 05/22/2022 Active Breo Ellipta 100-25 mcg/dose inhaler 1 puff daily. 10/27/2022 Active ibuprofen (ADVIL,MOTRIN) 200 mg capsule Take 1 capsule by mouth 2 (two) times a day as needed. 03/11/2016 Active Klor-Con M20 20 mEq ER tablet Take 20 mEq by mouth daily. 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 07/10/2022 Depressive Disorder 01/18/2015 Overview (04/16/2017): Depressive Disorder, Not Elsewhere Classified Depressive disorder, not elsewhere classified Hypertension Essential Benign 01/18/2015 Overview (04/16/2017): Benign Essential Hypertension Essential hypertension, benign Immunizations Name Administration Dates Next Due Influenza, Unspecified 08/24/2021,2018,10/03/2015,09/03/2014, 3 PPSV23 05/01/2016 Td (Adult), adsorbed 09/19/2007,11/25/1995 Tdap 01/07/2013 Social History Tobacco Use Types Packs/Day Years Used Date Smoking Tobacco: Heavy Smoker Tobacco Cessation:Ready to Q uit: Not Asked; Counseling Given: Not Answered Alcohol Use Standard Drinks/Week Comments Yes 0 (1 standard drink = 0.6 oz pur e alcohol) daily Nutrition Answer Date Recorded Nutrition: EVOO Fat Source Unknown 01/23 Nutrition: Servings of Fruits/Vegetables per Day Not on file 01/23/2021 Dental Answer Date Recorded Dental: Regular Dentist Unknown 01/24/20 21 Sex and Gender Information Value Date Recorded Sex Assigned at Female 07/10/2022 7:32 AM CDT Gender Identity Female 07/10/2022 7:32 AM CDT Sexual Orientation Straight 07/10/2022 7: 32 AM CDT Last Filed Vital Signs Vital Sign Reading Time Taken Comments Blood Pressure 137/83 05/02/2023 7:54 AM CDT Pulse 90 05/02/2023 7:54 AM CDT Temperature 36.6 ??C (97.9 ??F) 11/01/2022 8:03 AM CS T Respiratory Rate 16 11/01/2022 8:03 AM MANAGER PLANNING Oxygen Saturation 96% 11/01/2022 8:03 AM MANAGER PLANNING room air Inhaled Oxygen Concentration - - Weight 45.1 kg (99 lb 6.8 oz) 05/02/2023 7:54 AM CDT Height 159.6 cm (5' 2.84) 04/28/2021 12:44 PM C DT Body Mass Index 17.71 04/28/2021 12:44 PM CDT Plan of Treatment Not on file Procedures Procedure Name Priority Date/Time Associated Diagnosis Comments BASIC METABOLIC PANEL, S/P STAT 04/28/2021 1:03 PM CDT HCV AB SCRN W/REFLEX TO HCV PCR, S Routine 03/26/2017 8:12 AM CDT THYROID-STIMULATING HORMONE-SENSITIVE (S-TSH) Routine 03/26/2017 8:12 AM CDT BI BREAST SCREENING BILATERAL Routine 03/20/2017 12:55 PM CDT LIPID PANEL, S Routine 10/17/2015 10:40 AM MANAGER PLANNING PATHOLOGY EXPLORATION DRILLER CYTOLOGY Routine 10/17/2015 12:00 AM MANAGER PLANNING from Last 3 Months or Most Recently Relevant to Health Maintenance Results * (ABNORMAL) Basic Metabolic Panel (04/28/2021 1:03 PM CDT) Potassium, P 3.4(L) 3.6 - 5.2 mmol/L 04/28/2021 1:24 PM CDT ST[facility] Sodium, P 131(L) 135 - 145 mmol/L 04/28/2021 1:24 PM CDT [facility] Chloride, P 93(L) 98 - 107 mmol/L 04/28/2021 1:24 PM CDT [facility] Bicarbonate, P 23 22 - 29 mmol/L 04/28/2021 1:24 PM CDT [facility] Anion Gap, P 15 7 - 15 04/28/2021 1:24 PM CDT [facility] BUN (Blood Urea Nitrogen), P 4(L) 6 - 21 mg/dL 04/28/2021 1:30 PM CDT [facility] Creatinine 0.38(L) 0.59 - 1.04 mg/dL 04/28/2021 1:24 PM CDT STMA eGFR-Black/Afri can Nigerian >90 >=60 mL/min/BSA 04/28/2021 1:24 PM CDT [facility] Comment: ----ADDITIONAL INFORMATION---- Estimated GFR calculated using the 2009 CKD_EPI creatinine equation. eGFR Non-Black/Afric an Nigerian >90 >=60 mL/min/BSA 04/28/2021 1:24 PM CDT [facility] Comment: ----ADDITIONAL INFORMATION---- Estimated GFR calculated using the 2009 CKD_EPI creatinine equation. Calcium, Total, P 9.0 8.8 - 10.2 mg/dL 04/28/2021 1:24 PM CDT [facility] Glucose, P 107 70 - 140 mg/dL 04/28/2021 1:24 PM CDT [facility] Blood (Blood, Venous) 04/28/2021 1:03 PM CDT 04/28/2021 1:07 PM CDT Jonh Farley P.A.-C. LAB BLOOD ADD-ON Performing Organization Address [facility] de Phone Number [facility] [address] [phone], [place] STMA [facility] [address] [place] [address] * HCV Ab w/Reflex to HCV PCR, S (medicare) (03/26/2017 8:12 AM CDT) HXHCV Ab [facility] Negative Negative POWERCHART Comment: Swmnqp-yy-adkfym ratio is <1.00. Test Performed by: [facility] [address] [place] [address] Blood 03/26/2017 8:12 AM CDT Faye Yadav M.D. LAB MICROBIOLOGY - BLOOD ORDERABLES Performing Organization Address [facility] de Phone Number POWERCHART * Thyroid-Stimulating Hormone-Sensitive (s-TSH) (03/26/2017 8:12 AM CDT) TSH (Thyrotropin) 0.94 0.27 - 4.20 MIUL POWERCHART Comment: Biotin has been identified by the event specialist as a potential interfering substance. Higher concentrations of biotin may be found in multivitamins, hair/nail supplements, and workout supplements. If the result does not match clinical observations, repeat testing after patient refrains from the use of supplements for at least 12 hours. Blood 03/26/2017 8:12 AM CDT Faye Yadav M.D. LAB BLOOD ADD-ON Performing Organization Address [facility] Co de Phone Number POWERCHART * BI Breast Screening Bilateral (03/20/2017 12:55 PM CDT) Anatomical Region Laterality Modality Breast Bilateral Mammography 03/20/2017 12:5 5 PM CDT Impressions 03/20/2017 5:50 PM CDT Negative. RECOMMENDATION: Annual screening mammography. BI-RADS ASSESSMENT: 1: Negative. LETTER: L1/2S Electronically signed by: ?? Dc White MD 20-Mar-2017 17:50 Narrative 03/20/2017 5:50 PM CDT 20-Mar-2017 12:55:00 ??Exam: Mammo Screen Bilat Indications: screening ORIGINAL REPORT - 20-Mar-2017 17:50:00 EXAM: Digital Screening Mammography Bilateral Computer-aided detection equipment was used during interpretation. Mobile mammography services provided by [facility] [employer] ([employer] COMPARISON: Prior exams were available for comparison. DENSITY: b. There are scattered areas of fibroglandular density. FINDINGS: No mammographic findings of malignancy. Procedure Note Low White M.D. - 02/19/2018 20-Mar-2017 12:55:00 Exam: Mammo Screen Bilat Indications: screening ORIGINAL REPORT - 20-Mar-2017 17:50:00 EXAM: Digital Screening Mammography Bilateral Computer-aided detection equipment was used during interpretation. Mobile mammography services provided by [facility] [employer] ([employer]). COMPARISON: Prior exams were available for comparison. DENSITY: b. There are scattered areas of fibroglandular density. FINDINGS: No mammographic findings of malignancy. IMPRESSION: Negative. RECOMMENDATION: Annual screening mammography. BI-RADS ASSESSMENT: 1: Negative. LETTER: L1/2S Electronically signed by: Dc White MD 20-Mar-2017 17:50 Faye Yadav M.D. IMG BI PROCEDURES * (ABNORMAL) Lipid Panel (10/17/2015 10:40 AM MANAGER PLANNING) Cholesterol, Total 258(H) <=199 MGDL POWERCHART Comment: 2014 National Lipid Association recommendations for Total Cholesterol in adults ages 18 and up: Desirable <200 mg/dL Borderline high 200-239 mg/dL High 240 mg/dL 2014 National Lipid Association recommendations for Total Cholesterol in children ages 2 to 17. Acceptable <170 mg/dL Borderline High 170-199 mg/dL High 200 mg/dL Triglycerides 95 <=149 MGDL POWERCHART Comment: 2014 National Lipid Association recommendations for Triglycerides in adults ages 18 and up: Normal <150 mg/dL Borderline High 150-199 mg/dL High 200-499 mg/dL Very High 500 mg/dL 2014 National Lipid Association recommendations for Triglycerides in children ages 2 to 9. Acceptable <75 mg/dL Borderline High 75-99 mg/dL High 100 mg/dL 2014 National Lipid Association recommendations for Triglycerides in children ages 10 to 17. Acceptable <90 mg/dL Borderline High 90-129 mg/dL High 130 mg/dL Trigs >400mg/dL: Triglycerides >400 mg/dL. Calculated LDL cholesterol is not valid. Non-HDL cholesterol may be used for risk assessment when triglycerides are >400mg/dL. HX HDL 143 >=50 MGDL POWERCHART Comment: 2014 National Lipid Association recommendations for HDL-C in adults ages 18 and up: Low <40 mg/dL (Men) Low <50 mg/dL (Women) 2014 National Lipid Association recommendations for HDL-C in children ages 2 to 17. Low <40 mg/dL Borderline Low 40-45 mg/dL Acceptable >45 mg/dL Calculated LDL 96 <=129 MGDL POWERCHART Comment: 2014 National Lipid Association recommendations for LDL-C in adults ages 18 and up: Desirable <100 mg/dL Above desirable 100-129 mg/dL Borderline high 130-159 mg/dL High 160-189 mg/dL Very High 190 mg/dL 2014 National Lipid Association recommendations for LDL-C in children ages 2 to 17. Acceptable <110 mg/dL Borderline High 110-129mg/dL High 130 mg/dL LDL-C >190mg/dL: The markedly elevated LDL level is suggestive of a genetic condition such as familial hypercholesterolemia(FH) or familial defective apolipoprotein B-100 (FDB). Molecular genetic testing for FH and FDB is available through [facility]: FH/ADH Genetic Reflex Panel (test ADHP). Acquired (non-genetic) causes of markedly increased LDL cholesterol include cholestatic liver disease due to the presence of LpX. If a genetic form of hypercholesterolemia is suspected, family studies including biochemical testing for lipids (total cholesterol,triglycerides, LDL cholesterol and HDL cholesterol) are recommended. ??Please contact the laboratory at or the on-line test catalog at [employer] for information about how to order these tests or to speak with a genetic counselor. Further interpretation would require clinical information. Total Cholesterol/HDL Ratio 2 POWERCHART HXLDL/HDL 1 POWERCHART Blood 10/17/2015 10:4 0 AM MANAGER PLANNING Faye Yadav M.D. LAB BLOOD ADD-ON POWERCHART * Pathology EXPLORATION DRILLER Cytology (10/17/2015 12:00 AM MANAGER PLANNING) 10/17/2015 Narrative [facility] - 10/27/2015 9:07 AM MANAGER PLANNING Pat: ZANDRA MAI ([id number]) Age/Sex: 55 ??F ??Loc: ? -00 ([facility] ) [facility] ??JULISA: 10/17/15 00:00 ??REC: 10/17/15 00:00 ??PHYS: , Cytology ?Sure[facility] thinlayer cervica Patient Name: ZANDRA MAI MR#: [id number] Submitting Physician: FAYE YADAV MD ??[id number] Specimen #[id number] Performing Lab: ??[place] [address] CLINICAL HISTORY: Last menstrual period: Status: Specimen Source: Cervical/Endo Cervical Pap Type: Routine Pap Clinical History/Status: Post Menopausal Ancillary Testing: Perform HPV High Risk Hormone Therapy: No Pap Specimen: [facility] Last Menstrual Period: menopausal Source: [facility] thinlayer cervical/endocervical specimen [[facility] vial with collection device(s)] Diagnosis Specimen Adequacy: Satisfactory for interpretation : endocervical or transformation zone component present. General Categorization: Negative for intraepithelial lesion or malignancy. Comment HPV with Genotyping, PCR, [facility], testing performed by [facility] HPV High Risk type 16, PCR ? NEGATIVE HPV High Risk type 18, PCR ? NEGATIVE HPV other High Risk types, PCR ? NEGATIVE The PAP smear is not a diagnostic procedure and should not be used as the sole means to detect cervical cancer. ??It is only a screening procedure to aid in the detection of cervical cancer and its precursors. ??Both false-negative and false-positive results have been experienced. Faye Yadav M.D. LAB PAP [facility] from Last 3 Months or Most Recently Relevant to Health Maintenance Care Teams Lotus Notes Developer Relationship Specialty Start Date End Date Elsewhere, Pcp PCP - General Internal Medicine 01/15/20
--- OUTSIDE RECORDS SUMMARY | 2024-08-12 18:53 | XMS_ITS | Clinical Summary ---
Author Organization [facility] Address [address] [place] [address] Care Team Providers Care Jet Engine Mechanic Name Role Phone Elsewhere, Pcp Primary Care Provider Unavailabl e Source Comments Patient records contain information from all sites at [facility]. For routine questions regarding patient records, call [phone] during business hours, M-F 8:00 AM - 5:00 PM Central Time. Record requests for emergency care only can be directed to [phone] at any time[address] Allergies Active Allergy Reactions Criticality Noted Date Comments Latex Rash 04/22/2009 LATEX - rash, hives Poison [place] Extract Edema (Reselect Reaction) 04/20/2014 Medications Medication [...] 05/01/2016 Td (Adult), adsorbed 09/19/2007,11/25/1995 Tdap 01/07/2013 Family History Medical History Relation [...] T Respiratory Rate 16 11/01/2022 8:03 AM TOOL AND DIE DESIGNER Oxygen Saturation 96% 11/01/2022 8:03 AM TOOL AND DIE DESIGNER room air Inhaled Oxygen Concentration - - Weight 45.1 kg (99 lb 6.8 oz) 05/02/2023 7:54 AM CDT Height 159.6 cm (5' 2.84) 04/28/2021 12:44 PM C DT Body Mass Index 17.71 04/28/2021 12:44 PM CDT Plan of Treatment Health Maintenance Due Date Last Done Comments CT Colonography 1959 Cologuard 1959 Colonoscopy 1959 Colorectal Cancer Screening 1959 Depression Monitoring (PHQ-9) 1959 FIT 1959 HIV Screening 1959 Pneumococcal vaccine (0-64 y ears) (2 of 2 - PCV) 05/01/2017 05/01/2016 Mammogram 03/20/2018 03/20/2017, 03/2 01/2016, 03/17/2014, Additional history exists Cervical Cancer Screening 10/17/2020 10/17/2015 Thyroid Stimulating Hormone (TSH) test for thyroid function 10/20/2020 10/20/2019, 02/24/2019, 03/26/2017, Additional history exists Tobacco Cessation counseling 11/01/2023 11/01/2022 Lipid (Cholesterol) Screening 02/25/2024, 10/17/2015, 03/17/2014, Additional history exists Fasting Glucose for Diabetes Screening 04/28/2024 04/28/2021, 10/20/2019, 02/24/2019, Additional history exists Office Visit for Blood Press ure Check / Re-check 05/02/2024 05/02/2023 Influenza Vaccine (#1) 2024 , 08/29/2022, 08/24/2021, Additional history exists DTaP,Tdap,and Td Vaccines (3 - Td or Tdap) 08/29/2032 08/29/2022, 01/07/2013, 09/19/2007, Additional history exists Hepatitis C Screening Completed 03/26/2017 Zoster Vaccines Completed 10/10/2020, 07/26/2020 COVID-19 Vaccine Completed 12/02/2023, , 03/10/2021, Additional history exists Procedures Procedure Name Priority Date/Time Associated Diagnosis Comments BASIC METABOLIC PANEL, S/P STAT 04/28/2021 1:03 PM CDT HCV AB SCRN W/REFLEX TO HCV PCR, S Routine 03/26/2017 8:12 AM CDT THYROID-STIMULATING HORMONE-SENSITIVE (S-TSH) Routine 03/26/2017 8:12 AM CDT BI BREAST SCREENING BILATERAL Routine 03/20/2017 12:55 PM CDT LIPID PANEL, S Routine 10/17/2015 10:40 AM TOOL AND DIE DESIGNER PATHOLOGY MUSHROOM GROWTH MEDIA MIXER CYTOLOGY Routine 10/17/2015 12:00 AM TOOL AND DIE DESIGNER from Last 3 Months or Most Recently [...] 04/28/2021 1:24 PM CDT ST[facility] eGFR-Black/Afri can Filipino >90 >=60 mL/min/BSA 04/28/2021 1:24 PM CDT [facility] Comment: ----ADDITIONAL INFORMATION---- Estimated GFR calculated using the 2009 CKD_EPI creatinine equation. eGFR Non-Black/Afric an Filipino >90 >=60 mL/min/BSA 04/28/2021 1:24 PM CDT [facility] Comment: ----ADDITIONAL INFORMATION---- Estimated GFR calculated using the 2009 CKD_EPI creatinine equation. Calcium, Total, P 9.0 8.8 - 10.2 mg/dL 04/28/2021 1:24 PM CDT [facility] Glucose, P 107 70 - 140 mg/dL 04/28/2021 1:24 PM CDT [facility] Blood (Blood, Venous) 04/28/2021 1:03 PM CDT 04/28/2021 1:07 PM CDT John Farley P.A.-C. LAB BLOOD ADD-ON [facility] [address] [place] [address], [facility] [place] STMA [facility] [address] [place] [address] * HCV Ab w/Reflex to HCV PCR, S (medicare) (03/26/2017 8:12 AM CDT) HXHCV Ab [facility] Negative Negative POWERCHART Comment: Zrbjmz-ip-awepst ratio is <1.00. Test Performed by: [facility] [address] [place] [address] Blood 03/26/2017 8:12 AM CDT Faye Yadav M.D. LAB MICROBIOLOGY - BLOOD ORDERABLES Performing Organization Address City/[facility] Co de Phone Number POWERCHART * Thyroid-Stimulating Hormone-Sensitive (s-TSH) (03/26/2017 8:12 AM CDT) TSH (Thyrotropin) 0.94 0.27 - 4.20 MIUL POWERCHART Comment: Biotin has been identified by the respiratory tech as a potential interfering substance. Higher concentrations of biotin may be found in multivitamins, hair/nail supplements, and workout supplements. If the result does not match clinical observations, repeat testing after patient refrains from the use of supplements for at least 12 hours. Blood 03/26/2017 8:12 AM CDT Faye Yadav M.D. LAB BLOOD ADD-ON Performing Organization Address City/State/[facility] Co de Phone Number POWERCHART [...] during interpretation. Mobile mammography services provided by [facility] [employer]. COMPARISON: Prior exams were available for comparison. DENSITY: b. There are scattered areas of fibroglandular density. FINDINGS: No mammographic findings of malignancy. Procedure Note Low White M.D. - 02/19/2018 20-Mar-2017 12:55:00 Exam: Mammo Screen Bilat Indications: screening ORIGINAL REPORT - 20-Mar-2017 17:50:00 EXAM: Digital Screening Mammography Bilateral Computer-aided detection equipment was used during interpretation. Mobile mammography services provided by [facility] [employer]. COMPARISON: Prior exams were available for comparison. DENSITY: b. There are scattered areas of fibroglandular density. FINDINGS: No mammographic findings of malignancy. IMPRESSION: Negative. RECOMMENDATION: Annual screening mammography. BI-RADS ASSESSMENT: 1: Negative. LETTER: L1/2S Electronically signed by: Dc White MD 20-Mar-2017 17:50 Faye Yadav M.D. IMG BI PROCEDURES * (ABNORMAL) Lipid Panel (10/17/2015 10:40 AM TOOL AND DIE DESIGNER) Cholesterol, Total 258(H) <=199 MGDL POWERCHART Comment: [...] for FH and FDB is available through [facility] [employer]: FH/ADH Genetic Reflex Panel (test ADHP). Acquired (non-genetic) causes of markedly increased LDL cholesterol include cholestatic liver disease due to the presence of LpX. If a genetic form of hypercholesterolemia is suspected, family studies including biochemical testing for lipids (total cholesterol,triglycerides, LDL cholesterol and HDL cholesterol) are recommended. ??Please contact the laboratory at or the on-line test catalog at [employer] for information about how to order these tests or to speak with a genetic counselor. Further interpretation would require clinical information. Total Cholesterol/HDL Ratio 2 POWERCHART HXLDL/HDL 1 POWERCHART Blood 10/17/2015 10:4 0 AM TOOL AND DIE DESIGNER Faye Yadav M.D. LAB BLOOD ADD-ON POWERCHART * Pathology MUSHROOM GROWTH MEDIA MIXER Cytology (10/17/2015 12:00 AM TOOL AND DIE DESIGNER) 10/17/2015 Narrative [facility] - 10/27/2015 9:07 AM TOOL AND DIE DESIGNER Pat: ZANDRA MAI ([id number]) Age/Sex: 55 ??F ??Loc: ? -00 ([facility] ) [facility] ??JULISA: 10/17/15 00:00 ??REC: 10/17/15 00:00 ??PHYS: , Cytology ?[facility] thinlayer cervica Patient Name: ZANDRA MAI MR#: [id number] Submitting Physician: FAYE YADAV MD ??[id number] Specimen #[id number] Performing Lab: ??[place] [address] CLINICAL HISTORY: Last menstrual period: Status: Specimen [...] with Genotyping, PCR, [facility], testing performed by [facility] HPV High Risk type 16, PCR [...] been experienced. Faye Yadav M.D. LAB PAP [facility] from Last 3 Months or Most Recently Relevant to Health Maintenance Care Teams Jet Engine Mechanic Relationship Specialty Start Date End Date Elsewhere, Pcp PCP - General Internal Medicine 01/15/20
--- OUTSIDE RECORDS SUMMARY | 2024-08-12 18:53 | XMS_ITS | Clinical Summary ---
Author Organization [employer] [facility] Address [place], [place] [address] Care Team Providers Care Airport Representative Name Role Phone Manuel Heller MD Primary Care Provider [phone] Allergies Active Allergy Reactions Criticality Noted Date Comments Latex 04/22/2009 Poison [place] Extract Edema 04/20/2014 Medications Medication Sig Dispensed Refills Start Date End Date Status albuterol HFA (PROAIR HFA) 90 mcg/actuation inhaler Inhale 2 Puffs by mouth 4 times daily if needed. 0 04/20/2014 Active multivitamin (MVI) tablet Take 1 tablet by mouth once daily. 0 04/20/2014 Active calcium carbonate-vitamin D3, 500 mg-400 units, (CALCIUM 500 + D) tablet Take 1 tablet by mouth 2 times daily with meals. 0 04/20/2014 Active aspirin chewable (BABY ASPIRIN) 81 mg chewable tablet Take 1 tablet by mouth once daily with a meal. 0 04/20/2014 Active loratadine (CLARITIN) 10 mg tablet Take 1 tablet by mouth once daily. 0 07/18/2016 Active thiamine (VITAMIN B1) 100 mg tabletIndications: Vitamin B1 deficiency Take 1 tablet by mouth once daily. 90 tablet 1 02/24/2019 Active omeprazole (PRILOSEC) 20 mg Delayed-Release capsuleIndications :Chronic GERD TAKE 1 CAPSULE BY MOUTH ONCE DAILY IF NEEDED FOR STOMACH (GI) UPSET. 90 capsule 2 01/12/2020 Active folic acid 400 mcg tabletIndications: Vitamin B1 deficiency TAKE ONE TABLET BY MOUTH ONE TIME DAILY 90 tablet 1 03/10/2020 Active levothyroxine (SYNTHROID) 88 mcg tabletIndications: Hypothyroidism (acquired) TAKE ONE TABLET BY MOUTH ONE TIME DAILY 90 tablet 1 04/19/2020 Active amLODIPine (NORVASC) 10 mg tabletIndications: Essential hypertension TAKE ONE TABLET BY MOUTH ONE TIME DAILY 90 tablet 1 04/19/2020 Active EPINEPHrine (EPIPEN) 0.3 mg/0.3 mL injectionIndicatio ns:Poison oak,Difficulty breathing Inject 0.3mg (contents of 1 pen) intramuscularly one time if needed for allergic reaction. 2 Each 06/03/2020 Active gabapentin (NEURONTIN) 300 mg capsuleIndications :Seizure (HC) TAKE ONE CAPSULE BY MOUTH THREE TIMES DAILY 90 Capsule 05/31/2021 Active Active Problems Problem Noted Date Diagnosed Date Vitamin B1 deficiency 02/24/2019 Chronic GERD 02/24/2019 Hypothyroidism (acquired) 02/24/2019 Seizure 02/24/2019 Reflux 04/20/2014 HTN (hypertension) 04/20/2014 Hypothyroidism 04/20/2014 Immunizations Name Administration Dates Next Due AMB Influenza, IIV4 PF (=>6 mos Flulaval,Fluzone Fluarix)(Flu Clinic Only) 10/17/2016 Influenza Virus, Unspecified 10/03/2015,09/03/20 14,10/09/2013 Influenza, IIV4 08/29/2017,10/17/2016 Influenza, IIV4 (=>6mos) MDV 09/15/2016 Td (Age >=7 Years) 09/19/2007,11/25/1995 Td, Preservative Free (age >= 7 Years) 7 Tdap 01/07/2013 Family History Medical History Relation Name Comments Cancer-breast Sister Relation Name Status Comments Sister Social History Tobacco Use Types Packs/Day Years Used Date Smoking Tobacco: Heavy Smoker Cigarettes Last attempted t o quit: 04/11/1996 Smokeless Tobacco: Never Tobacco Cessation:Ready to Q uit: No; Counseling Given: Yes Comments:1.5 packs per day Alcohol Use Standard Drinks/Week Comments Yes 0 (1 standard drink = 0.6 oz pur e alcohol) PHQ-2 Answer Date Recorded PHQ-2 Score 1 02/24/2019 Social Connections Answer Date Recorded Frequency of Communication with Friends and Fami ly Not on file 04/11/2023 Sex and Gender Information Value Date Recorded Sex Assigned at Not on file Gender Identity Not on file Sexual Orientation Not on file Obstetrics History Last Filed Vital Signs Vital Sign Reading Time Taken Comments Blood Pressure 139/82 10/20/2019 7:49 AM MANUFACTURER'S SERVICE REPRESENTATIVE Pulse 107 10/20/2019 7:49 AM MANUFACTURER'S SERVICE REPRESENTATIVE Temperature 36.7 ??C (98.1 ??F) 10/20/2019 7:49 AM CS T Respiratory Rate - - Oxygen Saturation 100% 10/20/2019 7:49 AM MANUFACTURER'S SERVICE REPRESENTATIVE Inhaled Oxygen Concentration - - Weight 54.4 kg (120 lb) 10/20/2019 7:49 AM MANUFACTURER'S SERVICE REPRESENTATIVE Height 160 cm (5' 3) 10/20/2019 7:49 AM MANUFACTURER'S SERVICE REPRESENTATIVE Body Mass Index 21.26 10/20/2019 7:49 AM MANUFACTURER'S SERVICE REPRESENTATIVE Plan of Treatment Health Maintenance Due Date Last Done Comments Pneumococcal series for age 6-64 (1 of 2 - PCV) 1965 HIV for age 15-65 1974 Pap test for age 21-65 1980 Colonoscopy through age 75 2004 Zoster (shingles) series for age 50+ (1 of 2) 2009 Depression screening for age 12+ 02/25/2020 02/24/2019, 08/14/2016, 08/14/2016 Mammogram for age 45-75 02/25/2020 02/24/2019 BMI (ht and wt on same day) for age 18+ 10/20/2020 10/20/2019, 02/24/2019, 08/17/2016, Additional history exists Tetanus booster 01/07/2023 01/07/2013, 08/26, 09/19/2007, Additional history exists Lipids for age 45-75 02/25/2024 02/24/2019 COVID-19 vaccine series ( season) 2024 Influenza for age 50-64 07/26/2024 08/29/20 17, 10/17/2016, 10/17/2016, Additional history exists Tdap Completed 01/07/2013 Hepatitis C screening for ag e 18-79 Completed 02/24/2019 Procedures Procedure Name Priority Date/Time Associated Diagnosis Comments XR MAMMO BILAT SCREENING Routine 02/24/2019 3:29 PM CDT Visit for screening mammogram ANTI HCV Routine 02/24/2019 9:53 AM CDT Need for hepatitis C screening test LIPID PANEL W REFLEX MEASURED LDL Routine 02/24/2019 9:53 AM CDT Screening cholesterol level from Last 3 Months or Most Recently Relevant to Health Maintenance Results * XR MAMMO BILAT SCREENING (02/24/2019 3:29 PM CDT) Anatomical Region Laterality Modality BREASTS, Breast Left, Breast Right Bilateral Mammography Impressions 02/25/2019 12:23 PM CDT ??There is no radiographic evidence for malignancy. ??Recommend annual mammograms. A lay language report of this examination will be provided to the patient. MAMMOGRAM ASSESSMENT: ??ACR 2 Benign Narrative 02/25/2019 12:23 PM CDT XR MAMMO BILAT SCREENING [[id number]] CLINICAL HISTORY: ??This is an asymptomatic 58 y.o. patient. INDICATION FOR EXAM: Mammogram Screening. TECHNIQUE: CC & MLO views were obtained. ??This digital study was evaluated with the assistance of Computer-Aided Detection. COMPARISON FILMS: Priors not available at the time of this report. FINDINGS: ??Mammographically, the breast tissue has scattered fibroglandular densities. ??No suspicious masses or microcalcifications. ?? Benign appearing calcifications within both breasts and Benign appearing mass(es) within right breast. Luann Juarez PA MAMMO * (ABNORMAL) LIPID PANEL W REFLEX MEASURED LDL (02/24/2019 9:53 AM CDT) CHOLESTEROL,TOTAL 288(H) 100 - 199 mg/dL 02/24/2019 4:41 PM CDT [facility] TRIGLYCERIDES 61 <150 mg/dL 02/24/2019 4:41 PM CDT [facility] HDL CHOLESTEROL 143 >40 mg/dL 9 4:41 PM CDT [facility] NON-HDL CHOLESTEROL 145(H) <145 mg/dl 02/24/2019 4:41 PM CDT [facility] CHOL/HDL RATIO 2.01 <4.50 02/24/2019 4:41 PM CDT [facility] LDL CHOLESTEROL 133(H) <=130 mg/dL 02/24/2019 4:41 PM CDT [facility] PROVIDER ORDERED STATUS RANDOM 02/24/2019 4:41 PM CDT [facility] Blood BLOOD SPECIMEN / Unknown Butterfly / Unknown 02/24/2019 9:53 AM CDT 02/24/2019 9:53 AM CDT Luann ROCHE CHEMISTRY [facility] [address] [place] [address], [place] * ANTI HCV [99273.2] (02/24/2019 9:53 AM CDT) HEPATITIS C ANTIBODY Non-React lyly Non-React lyly 02/24/2019 4:57 PM CDT [facility] Comment:Antibodies to HCV no t detected; does not exclude the possibility of exposure to HCV. Blood BLOOD SPECIMEN / Unknown Butterfly / Unknown 02/24/2019 9:53 AM CDT 02/24/2019 9:53 AM CDT Luann ROCHE [facility] [address] [place] [address], [place] from Last 3 Months or Most Recently Relevant to Health Maintenance Advance Directives Documents on File Type Date Recorded Patient Map Clerk Expl anation Healthcare Directive 12/30/2019 020 Care Teams Airport Representative Relationship Specialty Start Date End Date Manuel Heller MD [address] [place] [address] PCP - General Family Practice 03/25/23
--- OUTSIDE RECORDS SUMMARY | 2024-08-12 18:53 | XMS_ITS ---
Author Organization [facility] Address [address] [place] [address] Care Team Providers Care Pesticide Use Medical Coordinator Name Role Phone Unavailable Unavailable Unavailable Surgery Details Not on file Complications Check Surgery Details section. Procedure Estimated Blood Loss Check Surgery Details section. Procedure Findings Check Surgery Details section. Procedure Specimens Taken Check Surgery Details section.
== END 2024-08-12 18:53 | disposition home or self-care (01) ==
LOC: ED 18:51
PROVIDERS: Emergency Provider Family Medicine; PCP Family Medicine
DX: R32 Unspecified urinary incontinence (principal); F10.10 Alcohol abuse, uncomplicated
CPT/HCPCS: 93005; 99284

== ENCOUNTER 2024-09-28 08:44 | Outpatient (CLI) | payer MEDICARE, SELFPAY ==
--- OUTSIDE RECORDS SUMMARY | 2024-10-01 13:46 | XMS_ITS ---
Author Organization [facility] Address [address] [place] [address] Care Team Providers Care Wood Web Weaving Machine Operator Name Role Phone Unavailable Unavailable Unavailable Surgery Details Not on file Complications Check Surgery Details section. Procedure Estimated Blood Loss Check Surgery Details section. Procedure Findings Check Surgery Details section. Procedure Specimens Taken Check Surgery Details section.
--- OUTSIDE RECORDS SUMMARY | 2024-10-01 13:46 | XMS_ITS | Clinical Summary ---
Author Organization [employer] [facility] Address [place], [place] [address] Care Team Providers Care Hull Molder Name Role Phone Manuel Heller MD Primary Care Provider [phone] Allergies Active Allergy Reactions Criticality Noted Date Comments Latex 04/22/2009 Poison [place] Extract Edema 04/20/2014 Medications Medication Sig Dispensed [...] Comments Blood Pressure 139/82 10/20/2019 7:49 AM YARN WEIGHER Pulse 107 10/20/2019 7:49 AM YARN WEIGHER Temperature 36.7 ??C (98.1 ??F) 10/20/2019 7:49 AM CS T Respiratory Rate - - Oxygen Saturation 100% 10/20/2019 7:49 AM YARN WEIGHER Inhaled Oxygen Concentration - - Weight 54.4 kg (120 lb) 10/20/2019 7:49 AM YARN WEIGHER Height 160 cm (5' 3) 10/20/2019 7:49 AM YARN WEIGHER Body Mass Index 21.26 10/20/2019 7:49 AM YARN WEIGHER Plan of Treatment Health Maintenance Due Date Last Done Comments Pneumococcal series for age 65+ (1 of 2 - PCV) 1965 HIV [...] 02/24/2019 COVID-19 vaccine series ( season) 2024 DEXA/DXA scan for age 65+ 2024 Influenza for age 65+ 2024 08/29/2017 , 10/17/2016, 10/17/2016, Additional history exists Tdap Completed [...] 12:23 PM CDT XR MAMMO BILAT SCREENING [[id number]] CLINICAL HISTORY: ??This is an asymptomatic 58 [...] - 199 mg/dL 02/24/2019 4:41 PM CDT [facility] TRIGLYCERIDES 61 <150 mg/dL 02/24/2019 4:41 PM CDT [facility] HDL CHOLESTEROL 143 >40 mg/dL 9 4:41 PM CDT [facility] NON-HDL CHOLESTEROL 145(H) <145 mg/dl 02/24/2019 4:41 PM CDT [facility] CHOL/HDL RATIO 2.01 <4.50 02/24/2019 4:41 PM CDT [facility] LDL CHOLESTEROL 133(H) <=130 mg/dL 02/24/2019 4:41 PM CDT [facility] PROVIDER ORDERED STATUS RANDOM 02/24/2019 4:41 PM CDT [facility] Blood BLOOD SPECIMEN / Unknown Butterfly / Unknown 02/24/2019 9:53 AM CDT 02/24/2019 9:53 AM CDT Luann ROCHE CHEMISTRY [facility] [address] [place] [address], * ANTI HCV [66049.2] (02/24/2019 9:53 AM CDT) HEPATITIS C ANTIBODY Non-React lyly Non-React lyly 02/24/2019 4:57 PM CDT [facility] Comment:Antibodies to HCV no t detected; does not exclude the possibility of exposure to HCV. Blood BLOOD SPECIMEN / Unknown Butterfly / Unknown 02/24/2019 9:53 AM CDT 02/24/2019 9:53 AM CDT Luann RCOHE SEND OUTS [facility] [address] [place] [address], from Last 3 Months or Most Recently Relevant to Health Maintenance Advance Directives Documents on File Type Date Recorded Patient Cognos Administrator Expl anation Healthcare Directive 12/30/2019 020 Care Teams [place] Molder Relationship Specialty Start Date End Date Manuel Heller MD [address] [place] [address] PCP - General Family Practice 03/25/23
--- OUTSIDE RECORDS SUMMARY | 2024-10-01 13:46 | XMS_ITS | Referral Summary ---
Author Organization [facility] Address [address] [place] [address] Care Team Providers Care Senior Consultant Name Role Phone Elsewhere, Pcp Primary Care Provider Unavailabl e Source Comments Patient records contain information from all sites at [facility]. For routine questions regarding patient records, call [phone] during business hours, M-F 8:00 AM - 5:00 PM Central Time. Record requests for emergency care only can be directed to [phone] at any time.[facility] Allergies Active Allergy Reactions Criticality Noted Date Comments Latex Rash 04/22/2009 LATEX - rash, hives Poison [place] Extract Edema (Reselect Reaction) 04/20/2014 Medications omeprazole (for_PriLOSEC) 20 mg capsule Take 1 tablet by mouth daily as needed. 03/20/20 17 Active CALCIUM CARB/VIT D3/MINERALS (CALCIUM-VITAM IN D ORAL) Calcium 600+D See Instructions, 1 TABLET DAILY 02/21/20 14 Active EPINEPHrine (for_EPIPEN) 0.3 mg/0.3 mL injection syringe Inject 0.3 mg intramuscularly See Admin Instructions. 03/20/20 17 Active gabapentin (for_NEURONTIN ) 300 mg capsule Take 1 capsule (300 mg total) by mouth 3 (three) times a day. 270 capsule 3 12/03/19 18 Active Additional Information Patient taking differently:300 mg oral 3 times daily (RT),Takes 5 capsules daily., Reported on 11/01/2022 amLODIPine (NORVASC) 10 mg tablet Take 1 tablet (10 mg total) by mouth once daily. 90 tablet 05/30/20 18 Active levothyroxine (SYNTHROID, LEVOTHROID) 88 mcg tablet Take 1 tablet (88 mcg total) by mouth daily. Needs lab before further refills 30 tablet 06/02/20 Active albuterol 90 mcg/actuation inhaler Inhale 2 puffs every 4 (four) hours as needed. 03/11/20 Active docusate sodium (COLACE) 100 mg capsule .Daily as needed 05/22/20 Active FOLIC ACID ORAL Take 400 mcg by mouth daily. 05/22/20 Active levETIRAcetam (KEPPRA) 750 mg tablet Take 750 mg by mouth 2 (two) times a day. 06/06/20 Active loratadine 10 mg capsule Take 10 mg by mouth daily. 05/22/20 Active MAGNESIUM OXIDE ORAL 2 (two) times a day. 05/22/20 Active multivitamin-C j-dztn-hyrygsm s tablet 1 tablet. 05/22/20 Active thiamine (VITAMIN B1) 100 mg tablet daily. 05/22/20 Active traZODone (DESYREL) 50 mg tablet .Bedtime 05/22/20 Active amLODIPine (NORVASC) 5 mg tablet daily. 05/22/20 Active famotidine (PEPCID) 20 mg tablet Take 20 mg by mouth 2 (two) times a day. Active acetaminophen (TYLENOL) 325 mg tablet Take 325 mg by mouth as needed. 05/22/20 Active Breo Ellipta 100-25 mcg/dose inhaler 1 puff daily. 10/27/20 Active ibuprofen (ADVIL,MOTRIN) 200 mg capsule Take 1 capsule by mouth 2 (two) times a day as needed. 03/11/20 Active Klor-Con M20 20 mEq ER tablet Take 20 mEq by mouth daily. 08/30/20 Active Active Problems Problem Noted Date Diagnosed [...] Recorded Dental: Regular Dentist Unknown 01/24/20 21 Comments No Sex and Gender Information Value Date Recorded Sex Assigned at Female 07/10/2022 7:32 AM CDT Legal Sex Female 6:13 AM GAS METER READER Gender Identity Female 07/10/2022 7:32 AM CDT Sexual Orientation Straight 07/10/2022 7: 32 AM CDT Last Filed Vital Signs Vital Sign Reading Time Taken Comments Blood Pressure 137/83 05/02/2023 7:54 AM CDT Pulse 90 05/02/2023 7:54 AM CDT Temperature 36.6 ??C (97.9 ??F) 11/01/2022 8:03 AM CS T Respiratory Rate 16 11/01/2022 8:03 AM GAS METER READER Oxygen Saturation 96% 11/01/2022 8:03 AM GAS METER READER room air Inhaled Oxygen Concentration - - [...] SCREENING BILATERAL Routine 03/20/2017 12:55 PM CDT PATHOLOGY HVAC/R INSTRUCTOR CYTOLOGY Routine 10/17/2015 12:00 AM GAS METER READER from Last 3 Months or Most Recently [...] 04/28/2021 1:24 PM CDT [facility] eGFR-[place]/Afri can Bur[place]ian >90 >=60 mL/min/BSA 04/28/2021 1:24 PM CDT [facility] Comment: ----ADDITIONAL INFORMATION---- Estimated GFR calculated using the 2009 CKD_EPI creatinine equation. eGFR Non-[place]/Afric an [place]ian >90 >=60 mL/min/BSA 04/28/2021 1:24 PM CDT [facility] Comment: ----ADDITIONAL INFORMATION---- Estimated GFR calculated using the 2009 CKD_EPI creatinine equation. Calcium, Total, P 9.0 8.8 - 10.2 mg/dL 04/28/2021 1:24 PM CDT [facility] Glucose, P 107 70 - 140 mg/dL 04/28/2021 1:24 PM CDT [facility] Blood (Blood, Venous) 04/28/2021 1:03 PM CDT 04/28/2021 1:07 PM CDT John Farley P.A.-C. LAB BLOOD ADD-ON Final Re sult Performing Organization Address [facility] Co de Phone Number [facility] [address] [place] [address], [place] [facility] [address] [place] [address] * HCV Ab w/Reflex to HCV PCR, S (medicare) (03/26/2017 8:12 AM CDT) HXHCV Ab [facility] Negative Negative POWERCHART Comment: Ndzfvt-wq-yhdxcp ratio is <1.00. Test Performed by: [facility] [address] [place] [address] Blood 03/26/2017 8:12 AM CDT Faye Yadav M.D. LAB MICROBIOLOGY - BLOOD OR DERABLES Final Result Performing Organization Address [facility] de Phone Number POWERCHART * Thyroid-Stimulating Hormone-Sensitive (s-TSH) (03/26/2017 8:12 AM CDT) TSH (Thyrotropin) 0.94 0.27 - 4.20 MIUL POWERCHART Comment: Biotin has been identified by the hospital admissions clerk as a potential interfering substance. Higher concentrations of biotin may be found in multivitamins, hair/nail supplements, and workout supplements. If the result does not match clinical observations, repeat testing after patient refrains from the use of supplements for at least 12 hours. Blood 03/26/2017 8:12 AM CDT Faye Yadav M.D. LAB BLOOD ADD-ON Final Resu lt Performing Organization Address [facility] Co de Phone Number POWERCHART * BI [...] during interpretation. Mobile mammography services provided by [facility]. COMPARISON: Prior exams were available for comparison. DENSITY: b. There are scattered areas of fibroglandular density. FINDINGS: No mammographic findings of malignancy. Procedure Note Low White M.D. - 02/19/2018 20-Mar-2017 12:55:00 Exam: Mammo Screen Bilat Indications: screening ORIGINAL REPORT - 20-Mar-2017 17:50:00 EXAM: Digital Screening Mammography Bilateral Computer-aided detection equipment was used during interpretation. Mobile mammography services provided by [facility]. COMPARISON: Prior exams were available for comparison. DENSITY: b. There are scattered areas of fibroglandular density. FINDINGS: No mammographic findings of malignancy. IMPRESSION: Negative. RECOMMENDATION: Annual screening mammography. BI-RADS ASSESSMENT: 1: Negative. LETTER: L1/2S Electronically signed by: Dc White MD 20-Mar-2017 17:50 Faye Yadav M.D. IMG BI PROCEDURES Final Res ult * Pathology HVAC/R INSTRUCTOR Cytology (10/17/2015 12:00 AM GAS METER READER) 10/17/2015 Narrative [facility] - 10/27/2015 9:07 AM GAS METER READER Pat: ZANDRA MAI ([id number]) Age/Sex: 55 ??F ??Loc: ? -00 ([place] ) [facility] ??JULISA: 10/17/15 00:00 ??REC: 10/17/15 00:00 ??PHYS: , Cytology ?[facility] thinlayer cervica Patient Name: ZANDRA MAI MR#: [id number] Submitting Physician: FAYE YADAV MD ??[id number] Specimen #[id number] Performing Lab: ??[place] [address] CLINICAL HISTORY: Last menstrual period: Status: Specimen [...] PCR, [facility], testing performed by [facility] HPV High Risk type 16, [...] false-negative and false-positive results have been experienced. us Faye Yadav M.D. LAB PAP COPATH ORDERABLES F inal Result [facility] from Last 3 Months or Most Recently Relevant to Health Maintenance Insurance GERONIMO GRIER Care Teams Senior Consultant Relationship Specialty Start Date End Date Elsewhere, Pcp PCP - General Internal Medicine 01/15/20
--- OUTSIDE RECORDS SUMMARY | 2024-10-01 13:46 | XMS_ITS | Clinical Summary ---
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 For routine questions regarding patient records, call [phone] during business hours, M-F 8:00 AM - 5:00 PM Central Time. Record requests for emergency care only can be directed to [phone] at any time.[facility] Allergies Active Allergy Reactions Criticality Noted Date Comments Latex Rash 04/22/2009 LATEX - rash, hives Poison [place] Extract Edema (Reselect Reaction) 04/20/2014 Medications omeprazole [...] (two) times a day. 05/22/20 Active multivitamin-C m-govp-cmqyvem s tablet 1 tablet. 05/22/20 Active thiamine [...] AM CDT Legal Sex Female 6:13 AM BMET Gender Identity Female 07/10/2022 7:32 AM CDT Sexual Orientation Straight 07/10/2022 7: 32 AM CDT Last Filed Vital Signs Vital Sign Reading Time Taken Comments Blood Pressure 137/83 05/02/2023 7:54 AM CDT Pulse 90 05/02/2023 7:54 AM CDT Temperature 36.6 ??C (97.9 ??F) 11/01/2022 8:03 AM CS T Respiratory Rate 16 11/01/2022 8:03 AM BMET Oxygen Saturation 96% 11/01/2022 8:03 AM BMET room air Inhaled Oxygen Concentration - - Weight 45.1 kg (99 lb 6.8 oz) 05/02/2023 7:54 AM CDT Height 159.6 cm (5' 2.84) 04/28/2021 12:44 PM C DT Body Mass Index 17.71 04/28/2021 12:44 PM CDT Plan of Treatment Health Maintenance Due Date Last Done Comments Bone Density Scan (Osteoporosis Screen) 1959 CT Colonography 1959 Cologuard 1959 Colonoscopy 1959 Colorectal Cancer Screening 1959 Depression Monitoring (PHQ-9) 1959 FIT 1959 HIV Screening 1959 Pneumococcal vaccine (65+ years) (2 of 2 - PCV) 05/01/2017 05/01/2016 Mammogram 03/20/2018 03/20/2017, 01/24, 03/17/2014, Additional history exists Cervical/Vaginal Cancer Screening 10/17/2020 10/17/2015 Thyroid Stimulating Hormone (TSH) test for thyroid function 10/20/2020 10/20/2019, 02/24/2019, 03/26/2017, Additional history exists Tobacco Cessation counseling 11/01/2023 11/01/2022 Depression Monitoring (PHQ-9 for quality tracking) 11/25/2023 Fasting Glucose for Diabetes Screening 04/28/2024 04/28/2021, 10/20/2019, 02/24/2019, Additional history exists Office Visit for Blood Pressure Check / Re-check 05/02/2024 05/02/2023 COVID-19 Vaccine ( season) 2024 12/02/2023, 11/21/2021, 03/10/2021, Additional history exists Influenza Vaccine (#1) 2024 , 08/29/2022, 08/24/2021, Additional history exists Fall Risk Screen (Annual) 2024 DTaP,Tdap,and Td Vaccines (3 - Td or Tdap) 08/29/2032 08/29/2022, 01/07/2013, 09/19/2007, Additional history exists Hepatitis C Screening Completed 03/26/2017 Zoster Vaccines Completed 10/10/2020, 07/26/2020 IPV Vaccines Aged Out No longer eligi ble based on patient's age to complete this topic Procedures Procedure Name Priority Date/Time Associated Diagnosis Comments BASIC METABOLIC PANEL, S/P STAT 04/28/2021 1:03 PM CDT HCV AB SCRN W/REFLEX TO HCV PCR, S Routine 03/26/2017 8:12 AM CDT THYROID-STIMULATING HORMONE-SENSITIVE (S-TSH) Routine 03/26/2017 8:12 AM CDT BI BREAST SCREENING BILATERAL Routine 03/20/2017 12:55 PM CDT 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 eGFR Non-Black/Afric an Vincentian >90 >=60 mL/min/BSA 04/28/2021 1:24 PM CDT [...] ADD-ON Final Re sult Performing Organization Address City/[facility] Co de Phone Number [facility] [address] [place] [address], [facility] STMA [facility] [address] [place] [address] * HCV Ab w/Reflex to HCV PCR, S (medicare) (03/26/2017 8:12 AM CDT) HXHCV Ab [facility] Negative Negative POWERCHART Comment: Kljljg-pb-yteflt ratio is <1.00. Test Performed by: [facility] [place] [address] Blood 03/26/2017 8:12 AM CDT Faye Yadav M.D. LAB MICROBIOLOGY - BLOOD OR DERABLES Final Result Performing Organization Address [facility] Co de Phone Number POWERCHART * Thyroid-Stimulating Hormone-Sensitive (s-TSH) (03/26/2017 8:12 AM CDT) TSH (Thyrotropin) 0.94 0.27 - 4.20 MIUL POWERCHART Comment: Biotin has been identified by the manager developmental as a potential interfering substance. Higher concentrations of biotin may be found in multivitamins, hair/nail supplements, and workout supplements. If the result does not match clinical observations, repeat testing after patient refrains from the use of supplements for at least 12 hours. Blood 03/26/2017 8:12 AM CDT us Faye Yadav M.D. LAB BLOOD ADD-ON Final Resu lt Performing Organization Address [facility] Co de Phone Number POWERCHART * [...] during interpretation. Mobile mammography services provided by [facility] [employer]. COMPARISON: Prior exams were available for comparison. DENSITY: b. There are scattered areas of fibroglandular density. FINDINGS: No mammographic findings of malignancy. Procedure Note Low White M.D. - 02/19/2018 20-Mar-2017 12:55:00 Exam: Mammo Screen Bilat Indications: screening ORIGINAL REPORT - 20-Mar-2017 17:50:00 EXAM: Digital Screening Mammography Bilateral Computer-aided detection equipment was used during interpretation. Mobile mammography services provided by [facility] [employer]. COMPARISON: Prior exams were available for comparison. DENSITY: b. There are scattered areas of fibroglandular density. FINDINGS: No mammographic findings of malignancy. IMPRESSION: Negative. RECOMMENDATION: Annual screening mammography. BI-RADS ASSESSMENT: 1: Negative. LETTER: L1/2S Electronically signed by: Dc White MD 20-Mar-2017 17:50 Faye Yadav M.D. IMG BI PROCEDURES Final Res ult * Pathology BRAILLE DUPLICATING MACHINE OPERATOR Cytology (10/17/2015 12:00 AM BMET) 10/17/2015 Narrative [facility] - 10/27/2015 9:07 AM BMET Pat: ZANDRA MAI ([id number]) Age/Sex: 55 ??F ??Loc: ? -00 ([place] ) [facility] ??JULISA: 10/17/15 00:00 ??REC: 10/17/15 00:00 ??PHYS: , Cytology ?[facility] thinlayer cervica Patient Name: ZANDRA MAI MR#: [id number] Submitting Physician: FAYE YADAV MD ??[id number] Specimen #[id number] Performing Lab: ??[address] [address] CLINICAL HISTORY: Last menstrual period: Status: Specimen [...] PCR, [facility], testing performed by [facility] HPV High Risk type 16, [...] experienced. Faye Yadav M.D. LAB PAP COPATH ORDERABLES F inal Result [facility] from Last 3 Months or Most Recently Relevant to Health Maintenance Insurance GERONIMO GRIER Care Teams Water Safety Teacher Relationship Specialty Start Date End Date Elsewhere, Pcp PCP - General Internal Medicine 01/15/20
== END 2024-09-28 08:45 | disposition home or self-care (01) ==
LOC: NFLDREF 10-01 13:44
PROVIDERS: PCP Family Medicine; Referring Provider Family Medicine; Visit Provider Family Medicine
DX: E78.5 Hyperlipidemia, unspecified (principal); E03.9 Hypothyroidism, unspecified; E83.42 Hypomagnesemia; Z86.2 Personal history of diseases of the blood and blood-forming organs and certain disorders involving the immune mechanism
CPT/HCPCS: 80053; 80061; 83735; 84443

== ENCOUNTER 2024-12-02 13:20 | Outpatient (CLI) | payer MEDICARE, BC, SELFPAY | END 2024-12-02 13:21 | disposition home or self-care (01) | LOC: NFLDREF 12-11 04:13 | PROVIDERS: PCP Family Medicine; Referring Provider Family Medicine; Visit Provider Family Medicine | DX: E87.1 Hypo-osmolality and hyponatremia (principal); E03.9 Hypothyroidism, unspecified | CPT/HCPCS: 80048; 84443 ==

== ENCOUNTER 2025-03-11 08:03 | Outpatient (CLI) | payer MEDICARE, BC, SELFPAY | END 2025-03-11 08:04 | disposition home or self-care (01) | LOC: NFLDREF 03-13 15:11 | PROVIDERS: PCP Family Medicine; Referring Provider Family Medicine; Visit Provider Family Medicine | DX: E87.1 Hypo-osmolality and hyponatremia (principal); E03.9 Hypothyroidism, unspecified | CPT/HCPCS: 84443 ==

== ENCOUNTER 2025-10-05 08:13 | Outpatient (CLI) | payer MEDICARE, BC, SELFPAY | END 2025-10-05 08:14 | disposition home or self-care (01) | LOC: NFLDREF 10-08 08:32 | PROVIDERS: PCP Family Medicine; Referring Provider Family Medicine; Visit Provider Family Medicine | DX: I10 Essential (primary) hypertension (principal); E03.9 Hypothyroidism, unspecified; E83.42 Hypomagnesemia | CPT/HCPCS: 80053; 83735; 84439; 84443 ==